=== PATIENT | male | born 1950 | race Caucasian/White ===

== ENCOUNTER 2017-07-19 11:00 | Inpatient (IN) | payer OTHER ==
[~2017-07-19] VITALS: Ht 188 cm; Wt 194.8 kg
[~2017-07-19 11:00] MED LIST: CHLORTHALIDONE25 MG PO; CLEOCIN HCL300 MG PO; CORTIZONE-1028 GM TOP; CRANBERRY200 MG PO; DAILY MULTIPLE1 EACH PO; DOXYCYCLINE HY100 MG PO; FISH OIL 1,0001 EAC3 PO; GLUCOSAMINE1000 MG PO; HYDRALAZINE HCL10 MG PO; HYDROCODON-ACE1 EA10 PO; ISOSORBIDE MONO60 MG PO; JANTOVEN5 MG PO; KLOR-CON 1010 MEQ PO; LANTUS100 UNITS/ SUB-Q; LASIX80 MG PO; LINEZOLID600 MG PO; MAG-OXIDE400 MG PO; MICONAZOLE5 GM TOP; NARCAN4 MG; NEURONTIN600 MG PO; NORCO 10-325 T1 EACH PO; NOVOLOG100 UNIT/1 SUB-Q; POTASSIUM CHLO20 ME1 PO; SAW PALMETTO80 MG PO; TRIUMEQ TABLET1 EACH PO; ZOLOFT50 MG PO; ZYLOPRIM100 MG PO
[2017-07-19] MEDS ORDERED: CIPROFLOXACIN750 MG PO (11:57)
--- NOTE | 2017-07-19 18:19 | NUR ---
NEW ED ADMIT. MORBIDLY OBESE. SBA/1PA. BARIATRIC BED. HX HIV. 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 STASIS ULCERS. OOZING STAB SITES FROM HERNIA REPAIR. PACER.
--- NOTE | 2017-07-19 18:26 | NUR ---
PT REPORTS THAT HE FEELS HE IS GETTING PRURITIS R/T VANCO INFUSION. LESS THAN 10ML INFUSED. WILL CALL DR ESPAÑA AND REPORT INCIDENT. NEW IV PLACED BY RN IN LEFT FOREARM. 18G.
--- NOTE | 2017-07-19 19:00 | NUR ---
REPORT RECEIVED FROM OFFGOING RN. PT RESTING IN BED. DISCUSSION WITH PHARMACISIT REGARDING HOME MEDICATION, PLAN FOR CG TO BRING MEDICATION TO FACILITY. WILL CHECK MEDICATION AND PLACE IN PT'S KIT'S LIST WHEN IT ARRIVES.
--- NOTE | 2017-07-19 19:24 | NUR ---
REPORT RECEIVED FROM OFFGOING DELFINA MULLIGAN. PHARMACISIT [employer] ASSISTANT THAT PT FAMILY IS TO BRING MEDICATION FROM HOME THIS EVENING AND THAT PT IS TO HAVE 1 DOSE OF MEDICATION TONIGHT.
--- NOTE | 2017-07-19 21:00 | NUR ---
PT CONTINUES TO REPORT ITCHING WITH VANCO INFUSION. HOSPITALIST IN TO SEE PT. NEW ORDER FOR FAMOTADINE RECEIVED, TO BE ADMINISTERED WITH VANCO INFUSION. VANCO TO BE RAN AT 75 ML/HR PER MD. FAMOTADINE ADMINISTERED AND VANCO INFUSINO REINITIATED. PT ASSESSMENT COMPLETE. ABDOMEN IS RED AND WARM TO THE TOUCH. PT REPORTS TENDERNESS TO SITE. BT'S ACTIVE. LAP SITE TO ABD IS DAGOBERTO, NO DRAINAGE NOTED. WOUND TO R KNEE IS COVERED WITH TELFA AND GAUZE. C/D/I. STASIS ULCERS PRESENT, LEGS REMAIN DISCOLORED PER PT'S BASELINE. PT PLACED CALL TO HIS CG TO REMIND HER TO BRING HOME MEDCIATIONS. SHE STATES THAT SHE WILL BRING SHORTLY. PT DENIES NEEDS AT THIS TIME. CALL LIGHT WITHIN REACH.
--- NOTE | 2017-07-19 22:50 | NUR ---
PT UTILIZES CALL LIGHT, STATES THAT HE IS FEELING SOMEWHAT SOB, REQUESTS TO SIT UP AT BEDSIDE. PT ASSISTED TO SITUP, REPORTS IMMEDIATE IMPROVEMENT. PT HOME MEDICATION ADMINISTERED. PT REQUETS DIET 7-UP AND REFILL OF WATER. BOTH PROVDIDED. PT DENIES OTHER NEEDS. CALL LIGHT WITHIN REACH.
--- NOTE | 2017-07-20 01:50 | NUR ---
PT RESTING WITH EYES CLOSED. RESPIRATIONS EVEN AND UNLABORED. PT USING HOME CPAP. PT ASSESSMENT COMPLETED. PT WAKES EASILY BUT DOES NOT TAKE CPAP OFF DURING ASSESSMENT. ABDOMEN REMAINS RED, PT REPORTS TENDERNESS TO TOUCH. LAP SITE OPEN TO AIR, NO DRAINAGE NOTED. BT'S ACTIVE. ABRASION TO R KNEE COVERED WITH TELFA AND GAUZE, C/D/I. NO REPORTS OF PAIN, SOB, OR NAUSEA AT THIS TIME. CALL LIGHT WITHIN PT'S REACH.
--- NOTE | 2017-07-20 06:09 | NUR ---
PT RESTING IN BED WITH CPAP IN PLACE. APPEARS TO BE SLEEPING. PT WAKES EASILY. DENIES PAIN, NAUSEA, SOB. PT ASSESSMENT COMPLETE. PT DENIES THE URGE TO VOID, STATES HE HAS A "CAMEL BLADDER". EDUCATION PROVIDED REGARDING NEED TO MEASURE URINE OUTPUT VERSUS WHAT HAS BEEN GOING IN VIA IV PUMP. PT STATES UNDERSTANDING. URINAL X 2 LEFT BY BEDSIDE. 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 PT STATES UNDERSTANDING. PT REQUESTS SIDE RAIL LOWERED SO HE MAY SIT ON EDGE OF BED. DECLINES OTHER NEEDS AT THIS TIME. CALL LIGHT WITHIN REACH.
--- NOTE | 2017-07-20 08:07 | CONS ---
[facility] [address] [place], [place] [address] Signed DATE OF CONSULTATION: 07/19/2017 REFERRING PHYSICIAN: ER physician. CHIEF COMPLAINT: Abdominal wound drainage. HISTORY OF PRESENT ILLNESS: Ed is a 66-year-old obese, diabetic gentleman with a history of HIV infection. He came to us back in February of this year with incarcerated symptomatic umbilical hernia. We had taken him to the OR and repaired that with intraabdominal Ventralex mesh. Of course, we closed the fascial defect transversely with a running #1 Prolene suture. He had initially been doing well, but then developed an infected seroma, which had to be opened and drained. He has grown out both enterococcus and proteus. His caregivers helped him with wound packing and has done an excellent job. I had warned Ed and his caregiver that we cannot remove the Prolene suture initially because that would just allow the umbilical hernia to open and expose the mesh in the abdomen to his infection. Consequently, he is at high risk for getting a recurrent infection, either in the near or even distant future. We have been following him along in the office and he was doing great and then we had ordered some Cipro for him and he tried to get it through [facility] when it took over a week to obtain it. He did take it, but now he has erythema with some edema across the pannus. We had asked him to come into the office today and he had called to say that he thought some fluid had come out and he wanted to go to the emergency room. Emergency room physician called me and did an ultrasound of that area and there was fluid collection underneath around 5 x 2 x 1.8 cm. White count is borderline at 10.6 with neutrophils of 66, however it is all consistent with an abscess. We therefore brought him into the hospital to start his IV antibiotics. We will have to open that up in the operating room later and take some cultures. ALLERGIES: Amoxicillin, bandaging tape, laundry detergent, sulfa drugs. MEDICATIONS: 1. Triumeq one tablet p.o. daily. 2. Allopurinol. 3. Chlorthalidone. 4. Coumadin. 5. Magnesium. 6. Lee 10 mg. 7. Potassium chloride. PAST MEDICAL HISTORY: Electronically Signed By: KOLBY ESPAÑA MD 07/20/17 0807 PATIENT NAME: ALEN ARANDA CONSULTATION DATE OF : 50 PHYSICIAN: OKLBY ESPAÑA MD REPORT #: [id number] REPORT IS CONFIDENTIAL AND NOT TO BE RELEASED WITHOUT AUTHORIZATION [facility] [address] [place] [id number] Signed Includes atrial fibrillation, congestive heart failure, hypertension, bilateral lower extremity venous stasis disease, prior umbilical hernia, obesity, diabetes, cellulitis, stroke x3, schizophrenia, HIV infection, and chest wall skin neoplasm. PAST SURGICAL HISTORY: Includes excision of a soft tumor from his chest wall, his left forearm surgery with metal remaining, treatment of his legs with no metal remaining, and then repair of his umbilical hernia with intraabdominal mesh in February of 2017, also pacemaker [place] [address] Balwinder Post, with [facility] in [place], [place]. Also, appendectomy and his umbilical hernia repair again in February of 2017. SOCIAL HISTORY: He drinks up to 10 L of diet coke in a month. He likes to smoke, but he quit smoking back in 1983. He does not chew tobacco. He has one or two beers in a month. He does not use illicit drugs. He is disabled and does not drive. He is , but also has a caregiver. He has two children. Dr. Jericho Cao is his primary care provider with [facility], [place], [place]. FAMILY HISTORY: There is diabetes in his mother. REVIEW OF SYSTEMS: Ten systems reviewed and he has been doing great following along in the office until this current episode of erythema and edema in his pannus. PHYSICAL EXAMINATION: VITAL SIGNS: Blood pressure is 151/75, his heart rate is 48, respiratory rate is 18, temperature is 98.4, he is 97% on room air. He is 6 feet 2 inches and 194 kg. GENERAL: He is a 66-year-old, obese gentleman, who is sitting on his hospital bed. He does not appear systemically ill or toxic. He usually has his walker with him, but not currently. LUNGS: Clear to auscultation bilaterally. HEART: Appears to be regular rate and rhythm from his pacemaker. ABDOMEN: Very protuberant and obese, but it is soft. I do not see any drainage from the umbilicus or his infraumbilical transverse incision. He does have edema and erythema below the umbilicus, probably 10 cm in diameter. LABORATORY DATA: His white blood count is 10.6, hemoglobin 15, neutrophils 66. Electrolytes are pending. RADIOGRAPHIC STUDIES: The ultrasound report is reviewed and there is a 5.4 x 2.5 x 1.8 cm fluid collection with edema in the surrounding tissues. Electronically Signed By: KOLBY ESPAÑA MD 07/20/17 0807 PATIENT NAME: ALEN ARANDA CONSULTATION DATE OF : 50 PHYSICIAN: KOLBY ESPAÑA MD REPORT #: [id number] REPORT IS CONFIDENTIAL AND NOT TO BE RELEASED WITHOUT AUTHORIZATION [facility] [address] [address] Signed ASSESSMENT/PLAN: Ed is a 66-year-old gentleman, who presents as above. He clearly has a postoperative abscess/wound infection. He is obviously at very high risk given the fact that he has not only diabetes, obesity, and his history of HIV. We are going to admit him tonight, Lyme diet, and his chronic medications. We will start his antibiotics tonight. Looks like we are going to use vancomycin and cefepime and we will plan on going to the OR tomorrow to evacuate the fluid collection and see if we can remove the Prolene suture. I have explained all this to Ed. He has expressed understanding and agrees to above plan. MD LAURIE Castorena/FRANSICOL /[id number] cc: MD Kolby Karimi MD Electronically Signed By: KOLBY ESPAÑA MD 07/20/17 0807 PATIENT NAME: ALEN ARANDA CONSULTATION DATE OF : 50 PHYSICIAN: KOLBY ESPAÑA MD REPORT #: [id number] REPORT IS CONFIDENTIAL AND NOT TO BE RELEASED WITHOUT AUTHORIZATION
--- NOTE | 2017-07-20 10:27 | NUR ---
PT OFF FLOOR FOR PROCEDURE AT 1010. CEFEPIME SENT WITH SURGERY RN.
--- NOTE | 2017-07-20 12:20 | NUR ---
07/20/17 1220 Uzma Harmon 1210-PATIENT ARRIVED TO PACU ON 10L MASK WITH ORAL AIRWAY IN PLACE 97% AFB PACEMAKER INPLACE ABDOMEN CDI GAUZE IN PLACE. NONAROUSABLE. 1217-GLUCOSE 69 ORDER TO GIVE 1/2 AMP OF D50 AND WILL RECHECK GLUCOSE IN 20 MINUTES. PATIENT ABLE TO EAT WHEN AWAKENS.
--- NOTE | 2017-07-20 13:25 | NUR ---
PT ARRIVED TO ROOM 113 AFTER SURGERY AT 1315. PT AWAKE AND ALERT. NO PAIN REPORTED. CEFEPIME CONTINUING TO INFUSE. VSS.
--- NOTE | 2017-07-20 18:14 | NUR ---
PT IS RESTING IN BED SAFELY WITH EYES CLOSED, RESPERATIONS EVEN, CALL LIGHT IN REACH.
--- NOTE | 2017-07-20 18:38 | NUR ---
VANCO/CEFEPIME. FSBS AC/HS. PRE MEDICATE BEFORE VANCO. I&D TODAY. DRESSING ON MIDLINE ABDOMEN. SOAKING THROUGH LLQ. PUT ABD OVER DRESSING. NEW GOWN GIVEN. TOLERATING ADA DIET. STASIS ULCERS BILAT LE. TRACE EDEMA LE. 1PA TO AMBULATE. CPAP WHILE ASLEEP.
--- NOTE | 2017-07-20 20:51 | NUR ---
PT LAYING IN BED. ALERT AND ORIENTED X4. COOPERATIVE. PT DENIES PAIN. DRESSING TO ABD SATURATED WITH SEROSANGENOUS DRAINAGE, WILL ABD DRESSING TONIGHT, FOR NOW CLEANED AREA AROUND DRESSING AND ADDED SOME CHUX TO KEEP DRAINAGE CONTAINED. REMOVED DRESSING FROM RIGHT KNEE TO ALLOW TO DRY, WOUND ON KNEE APPEARS TO BE A "SCRAPE," WILL MONITOR CLOSELY FOR DRAINAGE. GAVE FRESH ICE WATER. CALL LIGHT IN REACH. CPAP AT BEDSIDE.
--- NOTE | 2017-07-20 22:52 | EKG ---
[facility] [address] [facility] [place] [address] Signed Atrial fibrillation Incomplete right bundle branch block Left posterior fascicular block T wave abnormality, consider inferior ischemia Abnormal ECG When compared with ECG of 19-FEB-2017 13:59, Incomplete right bundle branch block is now present Confirmed by BENJY CAI MD ([id number]) on 07/20/2017 10:51:55 PM Electronically Signed By: BENJY CAI MD 07/20/17 2252 PATIENT NAME: MANOJCHERYLLUIS CALDERON Electrocardiogram DATE OF : 50 PHYSICIAN: BENJY CAI MD REPORT #: [id number] REPORT IS CONFIDENTIAL AND NOT TO BE RELEASED WITHOUT AUTHORIZATION
--- NOTE | 2017-07-20 23:12 | NUR ---
PT APPEARS TO BE SLEEPING. CPAP IN PLACE. LIGHTS AND TV OFF IN ROOM.
--- NOTE | 2017-07-21 02:01 | NUR ---
CHANGED ABD PADS TO ABD WOUND. PT TOLERATED WELL. COOPERATIVE AND HELPFUL. DENIES PAIN. GAVE FRESH ICE WATER. CALL LIGHT IN REACH.
--- NOTE | 2017-07-21 02:42 | NUR ---
PT INCONTINENT OF URINE. CHANGED LINENS AND ADDED WHITE CHUX TO BED. PT NOW SITTING AT BEDSIDE PER PT REQUEST. CALL LIGHT IN REACH. NO FURTHER NEEDS AT THIS TIME.
--- NOTE | 2017-07-21 03:50 | NUR ---
PT REMAINS SITTING AT BEDSIDE. LIGHTS ON IN ROOM. HE IS PLAYING GAMES ON HIS TABLET. NO NEEDS AT THIS TIME. CALL LIGHT IN REACH.
--- NOTE | 2017-07-21 05:44 | NUR ---
PT STILL SITTING AT BEDSIDE. HE APPEARED A LITTLE SHAKY, BS CHECKED AND IT WAS 72. AFTER GIVING ORANGE JUICE, AND CRACKERS WITH PEANUT BUTTER, PT REPORTED FEELING BETTER AND HIS BS IS NOW 97. NOTIFIED DR CAI VIA [employer].
--- NOTE | 2017-07-21 06:28 | NUR ---
PT SLEPT MAJORITY OF SHIFT. CHANGED ABD PADS AT SURGICAL SITE, DRAINING MODERATE AMOUNT OF SEROSANGENOUS FLUID. AFEBRILE. PT ALERT AND ORIENTED X4. DENIED PAIN. CPAP AT NIGHT. INCONTINENT OF URINE X2. NO SLIDING SCALE REQUIRED. USES CALL LIGHT APPROPRIALTY.
--- NOTE | 2017-07-21 06:41 | NUR ---
DR MARCH CALLED ORDERED NPO. REMOVED WATER CUP FROM BEDSIDE, REPORTED TO THE GUARDS IN ROOM, AND PLACED NPO SIGN
--- NOTE | 2017-07-21 06:56 | NUR ---
CHANGED DRESSING FOR THE SECOND TIME TONIGHT. PT WAS SITTING UP AT BEDSIDE FOR A GOOD COUPLE OF HOURS. DRAINAGE SEEPED THROUGH GAUZE AND THREE ABD'S. CHANGED GOWN. PT TOLERATED WELL.
--- NOTE | 2017-07-21 08:00 | NUR ---
PATIENT LAYING ON SIDE IN BED. ASSESSMENT COMPLETE. PATIENT DRESSING D/C/I. LAB IN ROOM TO GET BLOOD. NEW ORDER FOR INSULIN. BLOOD SUGAR 96. NO SS COVERAGE NEEDED. PATIENT TOLERATED MEDICATION. ANTIBITOICS STARTED.
--- NOTE | 2017-07-21 08:50 | NUR ---
Patient would like to get up in the chair this morning, but is requesting a bigger chair.
--- NOTE | 2017-07-21 09:57 | NUR ---
PATIENT DRESSING ON LOWER ABD HAD COME OFF WITH PATIENT GETTING UP FOR BREAKFAST. OPEN AREA ON ABD HAS PACKING IN PLACE, REAPPLIED GAUZE AND ABD PAD. PATIENT TOLERATED WELL. PATIENT REQUESTING LARGER CHAIR. PLAN OF SHOWER AND SIT IN CHAIR TODAY. PATIENT LUNGS CLEAR. CPAP CURRENTLY ON AFTER BREAKFAST. SATING WELL AT THIS TIME.
--- NOTE | 2017-07-21 12:15 | NUR ---
patient showered with the help of student. packing removed and old dressing removed. wound had dark red drainage. showered. allowed soap and water get into wound. once done with shower. gauze packing that was soaking in dakins solution was packed into wound. Tunneling at noon in the wound was present. underminning on edge. packing was done withwhole roll of gauze. patient tolerated the entire packing of wound process. abd and paper tape was used to keep packing in place. informed patient of plan for bid dressing changes. blood sugar 88.
--- NOTE | 2017-07-21 14:18 | NUR ---
Vancomycin infusion rate slowed due to patient having flushing reaction Vancomycin dosed at 2gm every 24 hours
--- NOTE | 2017-07-21 14:36 | NUR ---
pt in room with patient. ambulated patientin nguyen. tolerating well. assited back to chair.
--- NOTE | 2017-07-21 15:27 | NUR ---
patient sitting up in chair playing games on phone. verfied with pharmacy that both atibitoics can run at the same time. pepcid and benedryl given before antibiotic started. patient educated about calling with any conserning side effect. patients dressing on lower abd remains intact with no shadowing at this time. applied gauze and tape to r lower leg sratch kj that started to bleed.
--- NOTE | 2017-07-21 15:57 | NUR ---
Patient chronically anticoagulated with warfarin. INR presently 2.4. Patient has not received warfarin since admitted. Dr Pagan, who is covering for Dr Kign, will review patient to determine if he wants to restart warfarin.
--- NOTE | 2017-07-21 16:27 | NUR ---
rounded with dr. mcwilliams in room. plan to sl. no other new orders at this time.
--- NOTE | 2017-07-21 16:31 | NUR ---
Begin patient's home dose warfarin 5mg daily starting tonight per Dr Pagan.PT/INR ordererd for 07/22 @ 0600
--- NOTE | 2017-07-21 17:31 | NUR ---
patient had a good day. new orders for dressing changes bid. packing soaked in dakins solution for packing. cover with abd and tape. patient tolerated dressing change with minimal pain. patient showered. iv cefapime and vanco given. coumadin 5mg given this evening. we have decreased and held insulin this evening due to patients blood sugar ranging from 77-98 today. voiding well. added miralax per patients request. norco for pain. patient ambulated in nguyen with pt. doing well on ra. cpap at night.
--- NOTE | 2017-07-21 19:30 | NUR ---
REPORT RECVD FROM PAUL MATHIS, IN TO CHECK ON PT. PT RESTING WITH CPAP IN PLACE. IV ABX INFUSING. PER RN MONITOR FOR LOW CBG DURING SHIFT. NO FURTHER NEEDS AT THIS TIME. CALL LIGHT IN REACH.
--- NOTE | 2017-07-21 20:40 | NUR ---
Patient in bed asleep with cpap on. Whiteboard updated, room cleaned.
--- NOTE | 2017-07-21 21:15 | NUR ---
CALL TO DR. CAI. NOTIFIED THAT [address] CAI HOLD LEVEMIR DOSE. NO FURTHER ORDERS AT THIS TIME. ORDER VERIFIED BY READ BACK.
--- NOTE | 2017-07-21 21:30 | NUR ---
IN TO SEE PT, PT SLEEPING WITH CPAP IN PLACE. AWAKEN EASILY TO VOICE. ASSESSMENT COMPLETE AND PM MEDICATIONS TO GIVEN. DRSG CHANGE DONE WITH GAUZE AND DAKINS. PT IN VISABLE PAIN DURING DRSG CHANGE. PAIN MEDICATION GIVEN AT THE END OF DRSG CHANGE. WARM BLANKETS GIVEN, CPAP IN PLACE. NO FURTHER NEEDS AT THIS TIME. CALL LIGHT IN REACH.
--- NOTE | 2017-07-22 00:06 | NUR ---
IN TO CHECK ON PT, PT APPEARS TO BE SLEEPING. CPAP IN PLACE. IV ABX INFUSING. RR EVEN AND UNLABORED. CALL LIGHT IN REACH.
--- NOTE | 2017-07-22 00:18 | NUR ---
PATIENT IN BED ASLEEP.
--- NOTE | 2017-07-22 03:04 | NUR ---
IN TO CHECK ON PT, PT AWAKE. IV ABX STARTED. PT GIVEN BROTH PER REQUEST. PT AWAKE PLAYING GAMES ON HIS PERSONAL TABLET. NO FURTHER NEEDS AT THIS TIME, CALL LIGHT IN REACH.
--- NOTE | 2017-07-22 03:34 | NUR ---
PATIENT IN BED ASLEEP WITH CPAP ON.
--- NOTE | 2017-07-22 05:05 | NUR ---
PT HAS HAD UNEVENTFUL SHIFT, RESTED INTERMITTENTLY DURING THE SHIFT. DRSG TO THE ABD CHANGED PER ORDERS. MODERATE AMOUNT OF SERIOSANGUINOUS DRAINAGE NOTED. IV ABX GIVEN PER ORDER. A FIBRILE. PT AAOX3. NO SLIDING SCALE INSULIN AND LEVEMIR HELD PER MD.
--- NOTE | 2017-07-22 05:15 | NUR ---
IN TO CHECK ON PT, PT SITTING UP AT BEDSIDE. PT PLAYING GAMES ON PERSONAL TABLET. IV ABX INFUSING. NO FURTHER NEEDS AT THIS TIME. CALL LIGHT IN REACH.
--- NOTE | 2017-07-22 07:47 | NUR ---
BEDSIDE REPORT RECEIVED FROM SIMI. PATIENT SITTING AT THE SIDE OF THE BED. REPORT NEUROPATHIC PAIN. IV SITES PATENT. DRESSING ON ABD DRY AT THIS TIME. PATIENT RESTING IN BED, CALL LIGHT WITHIN REACH.
--- NOTE | 2017-07-22 08:14 | NUR ---
CALLED MADE TO DR CAI ABOUT PATIENT BLOOD SUGAR THIS AM THAT WAS 106. PATIENT BLOOD SUGAR HAS BEEN RUNNING LOW SINCE YESTERDAY. DR CAI ORDERED TO HOLD 0900 AM LEVEMIR.
--- NOTE | 2017-07-22 08:56 | NUR ---
PT AWAKE IN BED. PICKED UP ROOM. EMPTYED GARBAGE. FRESH WATER. CHANGED LINENS.
--- NOTE | 2017-07-22 09:09 | NUR ---
PATIENT FINISHED WITH BREAKFAST AND RESTING BED. CALL LIGHT IN REACH
--- NOTE | 2017-07-22 10:08 | NUR ---
PT IN BED TOOK BF TRAY. FRESH ICE WATER. PT HAS CALL LIGHT IN REACH.
[2017-07-22] MEDS ORDERED: CRANBERRY200 MG PO (10:20)
[2017-07-22] MEDS ORDERED: FISH OIL 1,0001 EAC3 PO (10:20)
[2017-07-22] MEDS ORDERED: ANTI-ITCH28 G1 TOP (10:23)
--- NOTE | 2017-07-22 10:36 | NUR ---
PATIENT RESTING IN BED REPORTED RELIEF OF PAIN AFTER NORCO THIS AM PER RADIOGRAPHER TECHNOLOGIST. NO OTHER COMPLAINTS. WARM BLANKETS PROVIDED.
--- NOTE | 2017-07-22 10:42 | NUR ---
ABD DRESSING CHANGED- PAKING WITH WET GAUZE IN DAKINS SOLUTION. WOUND BED PINK NO SLOUGH. PATIENT TOLERATED DRESSING WELL.
[2017-07-22] MEDS ORDERED: TOPROL XL200 MG PO ×2 (10:56→10:57)
[2017-07-22] MEDS ORDERED: ANTIFUNGAL CREA14 GM TOP (10:58)
--- NOTE | 2017-07-22 11:00 | NUR ---
MED REC COMPLETE WITH [facility] MEDICATION REFIL HISTORY.
--- NOTE | 2017-07-22 11:52 | NUR ---
IV FLUSHES, DRESSING IS INTACT
--- NOTE | 2017-07-22 12:55 | NUR ---
PATIENT UP TO CHAIR. NEW IV SITE ESTABLISHED. PATIENT TOLERATED WELL. DENIES PAIN AT THIS TIME. NO OTHER COMPLAINTS. CALL LIGHT AND PERSONAL BELONGING WITHIN REACH.
--- NOTE | 2017-07-22 14:01 | NUR ---
PT IS UP IN CHAIR PLAYING ON IPAD, STATES "FEET FEELS LIKE HE'S STANDING ON A BOARD OF NAILS" SAYS FROM HIS NEUROPATHY. PAIN IS TOLERABLE LEVEL. PHYSICAL THERAPY WILL BE BACK AFTER ABX INFUSION. CALL LIGHT WITHIN REACH.
--- NOTE | 2017-07-22 14:11 | NUR ---
PT DOING WELL. SAID DONT NEED ANYTHING.
--- NOTE | 2017-07-22 14:29 | NUR ---
PATIENT STATES STOOL WAS HARD, NURSE WITNESSING SAID STOOL WAS SOFT.
--- NOTE | 2017-07-22 14:49 | NUR ---
PATIENT IS SITTING UP IN THE CHAIR WATCHING TV. HE SCRATCHED HIS LEG AND REOPENED A WOUND FROM EARLIER. APPLIED GAUZE AND STOPPED BLEEDING. RUBBED LOTION ON LEGS AND FEET. PATIENT STATES HE IS COMFORTABLE AND HAS CALL LIGHT WITHIN REACH.
--- NOTE | 2017-07-22 15:26 | NUR ---
PT AWAKE IN CHAIR. STOCKED ROOM. EMPTYED GARBAGE. FRESH WATER.
--- NOTE | 2017-07-22 15:47 | NUR ---
NEW IV SITE ESTABLISHED FOR THE OTHER ANTIBIOTIC. PATIENT TOLERATED THE PROCEDURE WELL. RESTING IN THE CHAIR. NO OTHER REQUEST MADE.
--- NOTE | 2017-07-22 16:19 | NUR ---
ADMINISTERED VANCOMYCIN, PRETREATED PATIENT WITH BENADRYL AND PEPCID. PATIENT STATES PAIN IS AT TOLERABLE LEVEL. HE IS LAYING BED ABUT TO TAKE A NAP. CALL LIGHT IN REACH.
--- NOTE | 2017-07-22 17:32 | NUR ---
PATIENT'S BLOOD GLUCOSE WAS 267, GAVE 18 UNITS INSULIN, PATIENT IS EATING DINNER AT THE SIDE OF THE BED. CALL LIGHT IN REACH.
--- NOTE | 2017-07-22 18:16 | NUR ---
ASSESSED PATIENT'S RIGHT KNEE. SCABED OVER ABRAISION. INCREASED IN REDNESS AND IS TENDER TO THE TOUCH. PLACED A WARM DAMP RAG OVER ABRAISION. PATIENT IS RESTING WITH CALL LIGHT IN REACH.
--- NOTE | 2017-07-22 18:24 | NUR ---
PATIENT HAD AN UNEVENTFULL DAY. ABDOMINAL DRESSING CHANGED, PACKING WITH GAUZE SOAKED WITH DAKINS SOLUTION. LAST CBG WAS 267 AND 18 UNITS OF NOVOLOG ADMINISTERED. ABD DISTENDED, POSITIVE BOWEL TONE. 2+ EDEMAN IN BILAT LEGS AND FEETS. STASIS DERMATITIS/DISCOLORATION BILAT. AND SMALL OPEN WOUND ON THE RIGHT LEG AND KNEE. AFEBRILE. PAIN CONTROL WITH PO NORCO.
--- NOTE | 2017-07-22 18:33 | NUR ---
TALKED TO DR CAI ABOUT PATIENT INCREASED BLOOD SUGAR THIS PM.
--- NOTE | 2017-07-22 19:10 | NUR ---
SHIFT REPORT RECIEVED. PATIENT RESTING IN BED, CALL LIGHT IN REACH.
--- NOTE | 2017-07-22 21:26 | NUR ---
ROUNDED ON PATIENT CHARGE. ALL QUESTIONS ANSWERED. NO CONCERNS OR COMPLAINTS AT THIS TIME. CALL LIGHT IN REACH.
--- NOTE | 2017-07-22 21:40 | NUR ---
PATIENT ASSISTED WITH USE OF THE URNAL. EDIS CARE PROVIDED. PATIENT ASSISTED BACK INTO BED.
--- NOTE | 2017-07-22 22:03 | NUR ---
EVENING MEDS GIVEN PER ORDER. PATIENT REQUESTED PRN PAIN MEDS BEFORE WOUND CARE PERFORMED, WHICH WAS PROVIDED PER ORDERS. LUNG SOUNDS ARE DIMINISHED THROUGOUT. ABD IS ROUND, SOFT, AND TENDER. BOWEL SOUNDS ACTIVE. RIGHT KNEE SCABBED OVER, RED AND TENDER. BACITRACIN APPLIED. 3+ EDEMA NOTED IN LOWER EXTREMITIES. IV ABX INFUSING PER ORDERS, SITE WNL. ABD WOUND DRESSING CHANGED, SMALL AMOUNT OF SEROSANGUENOUS DRAINAGE ON ABD PAD. PACKING REMOVED EASILY AND INTACT. NEW PACKING APPLIED WITH DAKIN'S PER ORDER, A FULL ROLL OF GAUZE WOULD NOT FIT. PATIENT TOLERATED WELL. SKIN WHERE TAPE IS APPLIED IS TENDER AND RED. MINIMAL TAPE APPLIED TO REDUCE IRRITATION. PATIENT RESTING IN BED WITH CPAP IN PLACE. DENIES ANY FURTHER NEEDS. CALL LIGHT IN REACH.
--- NOTE | 2017-07-23 00:20 | NUR ---
PATIENT RESTING, EYES CLOSED, CPAP IN PLACE. RR 16. CALL LIGHT IN REACH.
--- NOTE | 2017-07-23 03:23 | NUR ---
PATIENT SITTING UP ON THE EDGE OF THE BED PLAYING ON HIS TABLET. DENIES ANY NEEDS AT THIS TIME. IV ABX ADMINISTERED PER ORDER. WOUND ON RIGHT KNEE APPEARS THE HAVE PURULENT COVERING THE SCAB THAT WAS PRESENT EARLIER IN SHIFT. PATIENT REPORTS AREA IS TENDER.
--- NOTE | 2017-07-23 05:43 | NUR ---
PATIENT RESTED WELL THROGUHOUT THE NIGHT. OUTPUT QS. WOUND CARE PERFORMED PER ORDERS AND TOLERATED WELL. PATIENT RECIEVED PRN PAIN MEDS X1 PRIOR TO DRESSING CHANGE. 1PA W/FWW. ADA DIET, TOLERATING WELL.
--- NOTE | 2017-07-23 06:21 | NUR ---
CALLED MD TO REPORT CHANGES TO WOND ON RIGHT KNEE. NO ANSWER. LEFT MESSAGE.
--- NOTE | 2017-07-23 06:52 | NUR ---
PATIENT RESTING IN BED WITH CPAP ON. CALL LIGHT IN REACH. EYES CLOSED. RR18.
--- NOTE | 2017-07-23 07:10 | NUR ---
BEDSIDE REPORT RECEIVED FROM DELFINA PINA. PT SLEEPING AT THIS TIME.
--- NOTE | 2017-07-23 07:27 | NUR ---
LEFT MESSAGE WITH SURGICAL DEPARTMENT TO HAVE MD CONTACT [facility] ABOUT PATIENTS KNEE.
--- NOTE | 2017-07-23 07:40 | NUR ---
NOTIFIED DR. MARCH THAT PT'S RIGHT KNEE HAS BEEN SLOUGHING WHITE SUBSTANCE EXCESSIVELY PER SHIFT REPORT. ORDER TO CHANGE GAUZE DRESSINGS BID.
--- NOTE | 2017-07-23 07:50 | NUR ---
PATIENT IS SLEEPING HAS C-PAP ON.
--- NOTE | 2017-07-23 08:27 | NUR ---
PT MORNING ASSESSMENT COMPLETE. PT'S LUNGS DIMINISHED THROUGHOUT ALL LOBES, CRACKLES NOTED IN RIGHT LOWER LOBE. PT BOWEL TONES ACTIVE X 4. PT COMPLAINING OF PAIN IN ABDOMEN, ABDOMEN COVERED, SOME SEROUS DRAINAGE NOTED ON ABD DRESSING, NO NEW REDNESS NOTED. PT PULSES FAINT/THREADY BILATERALLY LOWER EXTREMITIES, 3+ PITTING EDEMA NOTED IN LOWER EXTREMITIES, EXTREMITIES PURPLE, CAP REFILL <3. PT RIGHT KNEE SLOUGHING. WILL CONTINUE TO MONITOR. PT HAS BREAKFAST ON TRAY, SN BILL IN ROOM.
--- NOTE | 2017-07-23 10:28 | NUR ---
RECEIVED IN REPORT FROM NUMBERER AND WIRER NURSE PATIENT WAS AWAKE UNTIL 0300 PLAYING ON TABLET. ROUSED AT 0800 TO DRAW BLOOD GLUCOSE PATIENT TOLERATED WELL. BECAME EASILY AGITATED DEMANDING TO BE GIVEN 30 UNITS OF INSULIN BEFORE BREAKFAST. SLIDING SCALE INDICATED 6 UNITS BASED ON BLOOD GLUCOSE LEVEL. THERAPEUTIC COMMUNICATION IMPROVED PATIENTS MOOD AND 0900 MEDS WERE GIVEN. IV SITE IN RIGHT ARM WAS CLOTTED OFF AND NOT PATENT AND DC'D. ABX ARE INFUSING IN LEFT ARM IV. PATIENT IS ABLE TO REPOSITION IN BED ON HIS OWN. PATIENT IS NOW SLEEPING WITH NO FURTHER NEEDS. CALL LIGHT IN REACH.
--- NOTE | 2017-07-23 11:15 | NUR ---
IN PT ROOM TO CHECK ON PT. PT SLEEPING, APPLIED ABD PAD TO RIGHT KNEE PER MD ORDER TO APPLY DRESSING TO AREA OF DISCHARGE. PT ON CPAP AT 2L 02 AT THIS TIME. CALL LIGHT IN REACH.
--- NOTE | 2017-07-23 11:16 | NUR ---
PATIENT STATED PAIN WAS 7 OUT OF 10 IN LEGS. ADMINISTERED PRN NORCO. APPLIE ABD GUAZE OVER RIGHT KNEE ABRASION. PATIENT REPOSITIONED IN BED AND TRYING TO SLEEP. CPAP IS IN PLACE. NO FURTHER NEEDS. CALL LIGHT IN REACH.
--- NOTE | 2017-07-23 12:50 | NUR ---
PT ABDOMINAL DRESSING CHANGE COMPLETE. DRESSING PACKED WITH GAUZE SOAKED IN DAKINS SOLUTION. TUNNELLING EVIDENT. TWO ABD PADS APPLIED OVER PACKING, PAPER TAPE USED TO SECURE. PT COMPLAINING OF PAIN AT LOWER ABDOMEN WITH DRESSING CHANGE. BACITRACIN APPLIED TO RIGHT KNEE, COVERED WITH NON-ADHERANT DRESSING. CONTACT PRECAUTIONS USED DURING DRESSING CHANGE. PT NOW RESTING, STATES HE WAS UP FOR MOST OF NIGHT. NO ADDITIONAL REQUESTS AT THIS TIME, IV ANTIBIOTIC INFUSING IN LEFT WRIST, WNL.
--- NOTE | 2017-07-23 15:05 | NUR ---
PATIENT UP TO CHAIR DENIES PAIN AT THIS TIME. ANTIBIOTIC INFUSING. CALL LIGHT WITHIN REACH. NO FURTHER REQUEST.
--- NOTE | 2017-07-23 15:29 | NUR ---
CHECKED ON PT, LAB IN TO DRAW VANCO TROUGH. PT REQUESTING DIET LEMON CHITINA DRINK AND ICE WATER. PT STATES PAIN IS 4/10 IN FEET AND ANKLES. PT STATES PAIN LEVEL IS TOLERABLE, REFUSES PRN NORCO AT THIS TIME. MAGUI FROM PHYSICAL THERAPY NOW IN TO WORK WITH PT.
--- NOTE | 2017-07-23 15:36 | NUR ---
PT OUT OF ROOM WALKING WITH MAGUI FROM PHYSICAL THERAPY WITH FWW AND SBA. IV ANTIBIOTICS INFUSING. PT'S BREATHING IS LABORED, GATE STEADY WITH FWW.
--- NOTE | 2017-07-23 16:05 | NUR ---
PHYSICAL THERAPIST UPDATE ON PT, PT ABLE TO WALK 10 FT WITHOUT WALKER, AMBULATES WELL WITH FWW. PT IS DISCHARGED FROM PHYSICAL THERAPY AT THIS TIME.
--- NOTE | 2017-07-23 16:30 | NUR ---
PT ASSESSMENT COMPLETE. NEW IV STARTED IN RIGHT FOREARM, 20 GAUGE, BLOOD RETURN, FLUSHES WELL. PT'S LUNGS DIMINISHED, CLEAR THROUGHOUT ALL LOBES. PT STATES PAIN IS 6/10 IN LEGS, FEET. ABD DRESSING INTACT, DRY. SMALL AMOUNT OF SEROUS DRAINAGE NOTED ON RIGHT KNEE DRESSING. 3+ PITTING EDEMA NOTED BILATERALLY LOWER EXTREMITIES, PULSES WEAK, PALPABLE, CAP REFILL <3 BILATERALLY. PT HAS CALL LIGHT.
--- NOTE | 2017-07-23 17:22 | NUR ---
DR. MARCH IN PT ROOM DISCUSSING PLAN OF CARE WITH PT. PT CONCERNS ADDRESSED. PT HAS MEAL TRAY, IV ANTIBIOTICS INFUSING AT THIS TIME. CALL LIGHT IN REACH.
--- NOTE | 2017-07-23 18:11 | NUR ---
PT HAS BEEN ALERT, ORIENTED, COOPERATIVE THROUGHOUT SHIFT. PT RECEIVED NORCO X 2 THIS SHIFT FOR PAIN IN LOWER LEGS AND ABDOMEN. PACKING WAS CHANGED IN ABDOMEN, TUNNELLING EVIDENT IN ABDOMINAL WOUND, DRESSING APPLIED TO RIGHT KNEE. PT WAS DISCHARGED FROM PHYSICAL THERAPY TODAY, AMBULATING WELL WITH FWW. PT CONTINUES TO HAVE SIGNIFICANT URINE OUTPUT. PT RECEIVED IV VANCOMYCIN, CEFEPIME THROUGHOUT SHIFT. HAS USED CPAP WHILE IN BED, UP IN CHAIR FOR MOST OF DAY. BLE CONTINUE TO BE EDEMETOUS, 3+, PITTING AND FLORA IN COLOR.
--- NOTE | 2017-07-23 18:41 | NUR ---
ASSISTED PT WITH PERSONAL SUPPLY ORGANIZATION, TURNED OFF LIGHTS FOR PT. PT RESTING WITH CPAP IN PLACE, 2L O2. PT HAS NO ADDITIONAL REQUESTS AT THIS TIME. IV CEFEPIME AND VANCOMYCIN INFUSING. LEGS ELEVATED.
--- NOTE | 2017-07-23 19:00 | NUR ---
BEDSIDE SHIFT REPORT RECEIVED FROM [facility] RN'S. PT IS CURRENTLY RESTING IN BED, CPAP IN PLACE. IV ABX INFUSING AT THIS TIME. DENIES NEEDS AT THIS TIME, WILL CONTINUE TO MONITOR.
--- NOTE | 2017-07-23 21:00 | NUR ---
PT REPORTS 7/10 PAIN IN ABDOMEN AND LEGS, MEDICATED WITH 1 TAB NORCO. WILL ALLOW TIME FOR THIS MEDICATION TO TAKE EFFECT AND THEN WILL CHANGE ABDOMINAL DRESSING. CB, 12 UNITS SLIDING SCALE ADMINSTERED. PT HAS CALL LIGHT WITHIN REACH, WILL CONTINUE TO MONITOR.
--- NOTE | 2017-07-23 22:40 | NUR ---
ASSESSMENT COMPLETED. ALERT/ORIENTED. PAIN INCREASED AFTER DRESSING CHANGE TO ABDOMINAL WOUND. LUNGS CLEAR, DIMINISHED, PT WEARING HOME CPAP. HR IRREGULAR. BOWEL TONES ACTIVE. ABDOMINAL WOUND PACKED WITH DAKINS SOAKED KERLIX AND COVERED WITH ABD. ONLY PLACED SMALL AMOUNT OF TAPE, PER PT REQUEST, SKIN APPEARS IRRITATED AND RED WHERE TAPE HAD BEEN. WILL MONITOR DRESSING TO MAKE SURE IT STAYS IN PLACE. RIGHT KNEE HAS DRESSING TO ABRASION, CHANGED AT THIS TIME. CLEANED WOUND WITH SALINE, COVERED WITH BACITRACIN AND NON-ADHERANT DRESSING. LEGS APPEAR FLORA WITH 3+EDEMA PRESENT. AFTER DRESSING CHANGE PT SAT UP TO SIDE OF BED, VOIDED LARGE QUANTITY. SCROTAL EDEMA PRESENT, PENIS IS NOT VISIBLE. PT REMAINS SITTING UP AT SIDE OF BED, ON RA. DENIES NEEDS, CALL LIGHT IS WITHIN REACH.
--- NOTE | 2017-07-24 00:15 | NUR ---
IN TO CHECK ON PT WHO IS ASLEEP WITH CPAP IN PLACE. ONE OF THE ABD PADS FROM ABDOMINAL DRESSING WAS ON THE FLOOR SO I WOKE PT AND TOLD HIM I NEEDED TO ASSESS HIS DRESSING. A PORTION OF THE PACKING WAS COMING OUT OF WOUND SO I TRIMMED IT AND SOAKED NEW GAUZE IN DAKIN'S AND PACKED THE WOUND UNTIL IT WAS FULL AGAIN. NEW ABD PADS PLACED AND SECURED WITH MORE PAPER TAPE THAN I USED WITH PREVIOUS DRESSING. CALL LIGHT IS WITHIN REACH, WILL CONTINUE TO MONITOR.
--- NOTE | 2017-07-24 02:20 | NUR ---
PT UP TO SIDE OF BED TO VOID. PT REQUESTS AT SIDE OF BED FOR NOW.
--- NOTE | 2017-07-24 03:30 | NUR ---
IN TO START IV ABX. PT SITTING AT SIDE OF BED. REPORTS 7/10 PAIN IN LEGS, PRN NORCO ADMINISTERED. ASSESSMENT COMPLETED, NO CHANGES FROM PREVIOUS ASSESSMENT. DRESSINGS INTACT. PT REPOSITIONED HIMSELF BACK IN TO BED AND PLACED HIS CPAP. NO FURTHER REQUESTS, CALL LIGHT IS WITHIN REACH.
--- NOTE | 2017-07-24 05:15 | NUR ---
PT SLEPT MAJORITY OF SHIFT WEARING HIS CPAP, WOULD OCCASIONALLY SIT AT SIDE OF BED ON RA AND PLAY ON HIS TABLET. PAIN HAS BEEN WELL CONTROLLED WITH PRN NORCO, GIVEN TWICE. NO NAUSEA. LUNGS CLEAR/DIM. HR IRREGULAR. BOWEL TONES ACTIVE. DRESSING TO ABDOMINAL WOUND CHANGED LAST NIGHT, PT TOLERATED WELL. DRESSING TO ABRASION ON RIGHT KNEE ALSO CHANGED LAST NIGHT. 3+ EDEMA TO BLE, ENCOURAGE PT TO ELEVATE BLE. SCROTAL EDEMA PRESENT. BLE ARE FLORA IN APPEARANCE. PT REPORTS PERIPHERAL NEUROPATHY. CBG CHECKS, SS, AND LEVEMIR. SBA WITH FWW, STANDS/SITS AT BEDSIDE TO VOID LARGE QUANTITIES. IV SITES PATENT. SL EXCEPT FOR IV ABX: VANCO AND CEFEPIME. ANXIOUS/EASILY AGITATED AT TIMES.
--- NOTE | 2017-07-24 07:33 | NUR ---
REPORT RECEIVED FROM JOVITA. PATIENT AWAKE IN BED, PLAYING IN HIS TABLET. REPORT PAIN IN THE LOWER EXTREMITIES. PATIENT REQUESTS PAIN MED FOR PAIN.
--- NOTE | 2017-07-24 07:36 | NUR ---
patient was awak and ready for the morning, his IV was beepingi notified the nurse and updated his board.
--- NOTE | 2017-07-24 08:16 | NUR ---
PATIENT SITTING AT THE SIDE OF THE BED EATING BREAKFAST. 0800 MEDS ADMINISTERED. CBG 148, NO NEED FOR COVERAGE. PAIN MED WAS ADMINISTERED FOR 7/10 PAIN IN THE LEGS.
--- NOTE | 2017-07-24 09:30 | NUR ---
0900 O'CLOCK MED ADMINISTERED. SHIFT ASSESSMENT COMPLETED. PATIENT REPORTS THAT HIS PAIN IS DOWN TO 3/10. BP MED WAS HELD FOR LOW BP (106/66). PATIENT ATE 100% OF HIS BREAKFAST. LUNGS DIM THROUGHOUT, ABD OBESE AND POSITIVE BOWEL TONES. REDNESS NOTED ON THE LOWER ABD AROUND THE ABD WOUND. WOUND IS COVER WITH ABD PADS THAT HAS SOME DRAINAGE ON IT. REDNESS AND ABRASION ON THE RIGHT KNEE. DISCOLORATION AND SCABS NO GUS LOWER EXTREMITIES. 3+ EDEMA GUS LE. PATIENT WAS MEDICATED FOR PAIN EARLIER. RESTING IN BED NOW.
--- NOTE | 2017-07-24 10:11 | NUR ---
PATIENT WAS IN BED, HE ASKED FOR HIS CPAP TO BE SET UP RIGHT, AND HIS TABLET, AND A LITTLE MORE ICE WATER.
--- NOTE | 2017-07-24 11:45 | NUR ---
PATIENT UP WALKING IN THE HALLWAY WITH PHYSICAL THERAPIST. TOLERATED WELL.
--- NOTE | 2017-07-24 12:29 | NUR ---
PATIENT SITTING AT THE BEDSIDE EATING LUNCH. REPORTS 2/10 LEG PAIN, WHICH IS TOLERABLE FOR HIM. PLAN FOR SHOWER AFTER LUNCH AND DRESSING CHANGE.
--- NOTE | 2017-07-24 13:28 | NUR ---
FELICITY PATTERSON AND THIS NURSE ASSISTED PATIENT TO BATHROOM FOR SHOWER. PATIENT WAS ASSISTED BACK TO BED. ABDOMINAL WOUND CLEANED, PACKING WITH KERLEX GAUZE SOAKED WITH DAKIN'S SOLUTION AND COVERED WITH ABD PAD, ABDOMINAL BINDER APPLIED INSTEAD OF PAPER TAPE. WOUND BED PINK, NO SLOUGH, NO DRAINAGE. REDNESS NOTED WHERE THE PAPER TAPES WERE. NO CHANGE ON THE REDNESS ON THE RIGHT KNEE, TOPICAL ABX APPLIED. PATIENT RESTING AT THIS TIME. CALL LIGHT WITHIN REACH.
--- NOTE | 2017-07-24 14:51 | NUR ---
PATIENT RESTING IN BED. CPAP ON. APPEARS TO BE SLEEPING. RR UNLABORED. NO ACUTE DISTRESS NOTED. CALL LIGHT WITHIN REACH. WILL CONTINUE TO MONITOR.
--- NOTE | 2017-07-24 16:28 | NUR ---
PATIENT SITTING AT BEDSIDE, PLAYING ON HIS TABLE. REPORT MILD PAIN IN THE LOWER EXTREMITIES. NO REQUEST MADE. WILL CONTINUE TO MONITOR.
--- NOTE | 2017-07-24 17:48 | NUR ---
PATIENT UP SITTING IN BED EATING DINNER. EVENING MEDS ADMINISTERED. PATIENT REPORT MILD PAIN, NO REQUEST FOR PAIN MED.
--- NOTE | 2017-07-24 18:21 | NUR ---
PATIENT HAD A FAIR DAY. HAD A SHOWER. ADB WOUND WAS PACKED WITH KERLEX SOAKED WITH DAKIN'S SOLUTION. PATIENT TOLERATED WELL. SOLUTION FOR DRESSING HAS CHANGED TO NORMAL SALINE. PATIENT HAD 1 BM TODAY. U/O QUANTITY SUFFICIENT. LAST CBG 241. PATIENT RECEIVED 12UNITS OF NOVOLOG AND AN ADDITIONAL 10UNITS WITH MEAL. PAIN CONTROL WITH NORCO. ABRASION ON RIGHT KNEE WAS CLEANED WITH SOAP AND H2O DURING SHOWER, DRY AND LEFT TO OPEN AIR, STILL RED, NO SLOUGH, DRY. IV ABX HAS CHANGED TO PO FOR TONIGHT. DISCOLORATION IN GUS. LEGS STILL THE SAME FROM PREVIOUS ASSESSMENT.
--- NOTE | 2017-07-24 20:00 | NUR ---
PATIENT CONTINUES TO REST QUIETLY IN HIS ROOM. REGULAR RESPIRATIONS LAYING IN BED.
--- NOTE | 2017-07-24 22:00 | NUR ---
PATIENT RESTING QUIETLY IN BED CPAP ON.
--- NOTE | 2017-07-24 23:15 | NUR ---
PATIENT GOT HIS PM MEDS. BLOOD SUGAR OF 159 AND 6 UNITS OF NOVOLOG GIVEN BACK OF RT ARM ALONG WITH A SECOND SQ INJECTION 15 UNITS OF LEVEMIR. ABD DRESSING CHANGED. ABOUT 3.5 TO 2.5 INCH OPEN WOUND ON THE ABD HAS THE SALINE SOAKED KERLIX DRESSING REMOVED. NEW STERILE KERLIX DAMPENED WITH SALINE PLACED IN WOUND. COVERED WITH DRY 4X4,S AND A DRY ABD PAD. ABD BINDER THEN RESECURED OVER DRESSING.
--- NOTE | 2017-07-25 00:01 | NUR ---
PATIENT HAD 2 NORCO WITH HIS EVENING MEDS FOR LEG AND FEET PAIN OF NINE. PATIENT NOW RESTING QUIETLY WITH CPAP ON EYES CLOSED WITH REGULAR RESPIRATIONS.
--- NOTE | 2017-07-25 01:01 | NUR ---
1919 GETTING REPORT FROM DAY SHIFT. PATIENT IN BED RESTING QUIETLY. RESPIRATIONS.
--- NOTE | 2017-07-25 02:46 | NUR ---
PATIENT HAS BEEN SITTING UP DOING THINGS ON HIS TABLET FOR THE LAST COUPLE HOURS. HE HAS NOT CALLED AND ASKED FOR ANYTHING AND WHEN ASKED IF NEEDING ANYHTING HE SAID NO.
--- NOTE | 2017-07-25 06:00 | NUR ---
PATIENT REMAINS SITTING UP ON HIS TABLET, BOTH IV SL LOCKS FLUSHED WELL. PATIENT STILL VOIDING VERY LARGE AMOUNTS OF URINE. PAIN OF 9/10 SEEMS CONTROLLED FROM EARLIER IN THE SHIFT HE HAS MENTIONED NO MORE PAIN AND HAD SLEPT FOR AWHILE.
--- NOTE | 2017-07-25 07:55 | NUR ---
BEDSIDE REPORT RECIEVED FROM RICK. PATIENT RESTING IN BED SLEEPING, CPAP ON. RR UNLABORED. NO APPARENT DISTRESS NOTED.
--- NOTE | 2017-07-25 09:35 | NUR ---
PATIENT UP TO CHAIR, REPORT MINIMAL PAIN IN THE LEGS. MORNING MEDS GIVEN. NO OTHER COMPLAINTS.
--- NOTE | 2017-07-25 13:09 | NUR ---
PATIENT SITTING IN CHAIR EATING LUNCH. DENIES ANY COMPLAINTS. WILL CONTINUE TO MONITOR.
--- NOTE | 2017-07-25 13:30 | NUR ---
PATIENT ASSISTED TO GET BACK TO BED. ABD DRESSING CHANGED WITH KIRLEX GAUZE SOAKED IN NORMAL SALINE. WOUND BED IS CLEAN, NO SLOUGH, SMALL AMOUNT OF BLEEDING AFTER REMOVING PACKING. WOUND PACKED AND COVERED WITH ABD PAD. PATIENT WAS MEDICATED FOR PAIN. RESTING IN BED AT THIS TIME.
--- NOTE | 2017-07-25 15:30 | NUR ---
PATIENT RESTING IN BED. REPORT RELIEF OF PAIN. WATER AND ICE PROVIDED PER PATIENT REQUEST. NO FURTHER COMPLAINTS.
--- NOTE | 2017-07-25 18:14 | NUR ---
PATIENT HAD AN UNEVENTFUL DAY. HAD BEEN UP TO CHAIR MOST OF THE DAY. ABD DRESSING WAS CHANGED AND PACKED WITH KERLIX SOAKED WITH NS. WOUND WNL. ABRASION ON RIGHT KNEE DRY AND IMPROVED FROM PREVIOUS ASSESSMENT.3+ EDEMA DISCOLORATION STILL PRESENT ON BILAT LE. PO ABX. U/O QUANTITY SUFFICIENT. CPAP AT NIGHT. PAIN CONTROL WITH PO NORCO.
--- NOTE | 2017-07-25 19:00 | NUR ---
PT AWAKE AND ON HIS TABLET, GETTING REPORT FROM DAY SHIFT.
--- NOTE | 2017-07-25 20:00 | NUR ---
PATIENT URINATED ALL OVER HIS ROOM, ESTIMATE AT LEAST 500 ON THE FLOOR AND 600 IN THE URINAL. PATIENT CLEANED UP AND BACK TO BED.
--- NOTE | 2017-07-25 22:00 | NUR ---
PT UP TO URINATE ONCE AGAIN. 550 OUT THIS TIME. PT WENT BACK TO BED.
--- NOTE | 2017-07-25 23:00 | NUR ---
PATIENT SLEEPING WITH CPAP ON.
--- NOTE | 2017-07-26 01:00 | NUR ---
PATIENT UP AT BEDSIDE USING HIS TABLET, TAKING IN FLUIDS WELL.
--- NOTE | 2017-07-26 03:45 | NUR ---
PATIENT UP TO THE BATHROOM WITH SMALL STOOL IN THE TOILET, BUT URINATED ALL OVER THE BATHROOM. PATIENT CLEANED UP AND BATHROOM CLEANED UP. PATIENT BACK TO BED.
--- NOTE | 2017-07-26 05:50 | NUR ---
PATIENT HAS BEEN UP MOST OF THE NIGHT ON HIS TABLET. MULTIPLE LARGE URINATIONS THROUGH THE NIGHT. BOTH LEFT AND RT SLIV ARE PATENT. ABD WOUND WAS REPACKED TOWARD THE BEGINING OF THE SHIFT PER THE GIVEN ORDERERS. SITE IS LOOKING PINK INSIDE FOR THE MOST PART AND LOKS TO BE HEALING.
--- NOTE | 2017-07-26 08:28 | NUR ---
BLOOD SUGAR TAKEN. 180. MEDS AND INSULIN GIVEN. PATIENT ON EDGE OF BED EATING BREAKFAST. NO OTHER ISSUES AT THIS TIME. PATIENT STATING PAIN 5/10. WOULD LIKE TO WAIT UNTIL AFTER BREAKFAST FOR PAIN MEDICATION.
--- NOTE | 2017-07-26 12:05 | NUR ---
DID BLOOD SUGER CHECK. SAID WOULD TAKE A SHOWER AFTER SEEING THE DOCTOR SOMETIME TODAY.
--- NOTE | 2017-07-26 12:06 | NUR ---
patients blood sugar 225. 22 units of insulin given. patient sitting up in chair. lasix given. patient tolerating food well. patient agreed to take shower after dr. romero looks at wound.
--- NOTE | 2017-07-26 13:30 | NUR ---
patient assisted back to bed. patient repositioned in bed with legs elevated. changed gown. patient requested sugar being checked. checked blood sugar for 199. patient resting in bed with cpap on.
--- NOTE | 2017-07-26 16:50 | NUR ---
PATIENTS BLOOD SUGAR 165 21 UNITS OF INSULIN GIVEN.
--- NOTE | 2017-07-26 17:30 | NUR ---
DR. MARCH IN ROOM. TOOK OUT ABD DRESSING FOR DR. MARCH TO SEE. REDRESS WOUND WITH KERLEX AND NORMAL SALINE. GAUZE AND ABD APPLIED. ABD BINDER PLACED ON AND TIGHTENED. PATIENT ASSISTED UP TO EDGE OF BED FOR DINNER.
--- NOTE | 2017-07-26 17:32 | NUR ---
PATIENT DID WELL TODAY. AMBULATED IN ROOM WITH A STBY ASSIST AND WALKER. VOIDED. TOLERATING FOOD WELL. BS RANGING FROM 165-225. SS AND SCHEDULED INSULIN GIVEN. DR. ESPAÑA BACK TOMORROW TO DETERMINE CONT. CARE. DRESSING CHANGED THIS EVENING WITH DR. MARCH.
--- NOTE | 2017-07-26 17:50 | NUR ---
PATIENT CALLED AND REPORTED BLOODY NOSE. PACKED WITH GAUZE. CHANGED GOWN.
--- NOTE | 2017-07-26 19:15 | NUR ---
GOT REPORT AND DID MY ASSESSMENT. PATIENT IS DOING WELL. ON HIS TABLET LYING IN BED. NO COMPLAINTS. DRESSING WAS CHANGED ABOUT 6 PM SO I WILL CHANGE IT AGAIN IN THE MORNING.
--- NOTE | 2017-07-26 22:21 | NUR ---
PATIENT RESTING QUIETLY ON HIS LEFT SIDE WITH CPAP IN PLACE AND CALL LIGHT IN REACH.
--- NOTE | 2017-07-26 23:58 | NUR ---
PATIENT RESTING QUIETLY, EYES CLOSED, ON CPAP, CALL LIGHT IN REACH, WILL CONTINUE TO MONITOR.
--- NOTE | 2017-07-27 02:21 | NUR ---
JUST GOT PATIENT BACK TO BED AFTER HELPING HIM VOID 1025MLS, AND CHANGING HIS ABD DRESSING. CALL LIGHT IN REACH ASSESSMENT ALREAD DONE. FAIR AMOUNT OF SANGUINOUS MATERIAL ON OLD DRESSING. ABD BINDER IN PLACE.
--- NOTE | 2017-07-27 04:00 | NUR ---
PATIENT UP TO VOID AND DRESSING CAME APART. REDRESSED ABD WOUND ORDERED AND PATIENT BACK TO BED.
--- NOTE | 2017-07-27 06:24 | NUR ---
PATIENT ACTUALLY SLEPT A GOOD PART OF LAST NIGHT, WHICH IS A CHANGE FOR HIM. DRESSING WAS CHANGED AT 4AM WHEN PATIENT GOT UP TO VOID. PATIENT UP AGAIN NOW AND VOIDED ANOTHER 625MLS.
--- NOTE | 2017-07-27 07:56 | NUR ---
PATIENT SITTING UP ON SIDE OF BED. DOING WELL. CALLED DOWN BREAKFAST ORDER, TIDIED ROOM. UPDATED WHITEBOARD.
--- NOTE | 2017-07-27 09:11 | NUR ---
CALL TO DR. ESPAÑA CELL PHONE TO LET HIM KNOW THAT PATIENT IS HERE AND NEEDS TO BE SEEN BY DR. ESPAÑA TODAY. VÍCTOR IN SURGERY ANSWERED THE PHONE AND TOOK THE MESSAGE.
--- NOTE | 2017-07-27 09:29 | NUR ---
PT SITTING UP ON EDGE OF BED ON TABLET. PAIN 6/10 IN ABDOMEN AND LEGS. NO OTHER COMPLAINTS. GOOD APPETITE.
--- NOTE | 2017-07-27 09:53 | NUR ---
HELPED PT UP TO VOID, WIPED HIS BACKSIDE AND CHANGED HIS DRAWSHEET AND PUT A FRESH ALYSSA PAD UNDERNEATH HIM
--- NOTE | 2017-07-27 10:22 | OR ---
[facility] [address], [place] [address] Signed DATE OF OPERATION: 07/20/2017 SURGEON: Kolby King MD PREOPERATIVE DIAGNOSIS: Periumbilical postoperative infected seroma. POSTOPERATIVE DIAGNOSIS: Periumbilical postoperative infected seroma. PROCEDURES: 1. Incision and drainage of infected periumbilical postoperative seroma. 2. Deep wound cultures. ESTIMATED BLOOD LOSS: None. FINDINGS: Sarthak had a small seroma immediately underneath the incision that tracked down along the 6 o'clock position of the umbilicus and then traveled around his left side towards the 3 o'clock position. All of this was excised and removed back to healthy fat. The wound did not travel all way down to the abdominal wall, therefore the previous Prolene sutures were not removed. INDICATIONS: Sarthak is a 66-year-old obese diabetic gentleman with a history of HIV infection. He tells us that his recent HIV count is undetectable a month or so ago. He came to us at the end of February of 2017 through the emergency room with a moderately large 2 cm incarcerated umbilical hernia. He was taken to the operating room and the omentum had been reduced and we repaired the fascial defect transversely with a running #1 Prolene suture over top of Ventralex mesh. He did very well initially, but he is at high risk obviously. He developed an infected seroma once we opened that wound and we packed it and allowed it to heal in secondarily. We found his first infection, he had Enterococcus. He responded well to the vancomycin and later to the linezolid. He then ended up with Proteus in the wound later on and we had to explain that not to urinate and uses hands around the wound. He needs to wash his hands in between. That responded also initially to ciprofloxacin. However, he had waited a week to order a Cipro through his [facility]. When he came back to the office, there was some erythema dependently in his abdominal wall and down toward his pannus with associated edema. We wrote for another round of Cipro. We were going to have him back in the office in a few days. He called Electronically Signed By: KOLBY KING MD 07/27/17 1022 PATIENT NAME: SARTHAK ARANDA OPERATIVE REPORT DATE OF : 50 PHYSICIAN: KOLBY KING MD REPORT #: [id number] REPORT IS CONFIDENTIAL AND NOT TO BE RELEASED WITHOUT AUTHORIZATION [address] [address] Signed back and said he had some fluid egress from the wound and when we asked him to come to the office that day, he said he wanted to go directly to the emergency room. In the emergency room, he had the same erythema and edema below the umbilicus and he had a white count of 10.6 with neutrophils of 66. The ER physician had ordered an ultrasound and he had a 5.4 x 2.5 x 1.8 cm fluid collection underneath that wound. I had ask that he be admitted to my service. We put him on vancomycin and cefepime based on his previous cultures. We have our pharmacist helping us as he does have chronic renal insufficiency. This morning, then I spoke with Ed and explained that we were going to open up that wound and drain that fluid collection. There is some risk that he might lose his umbilicus as well, and if the wound was deep, we are going to have to track down to remove the Prolene suture. I had warned Ed and his and his caregiver about this multiple times previously. They are well aware of this potential. Ed had expressed understanding and wished to proceed. PROCEDURE NOTE: Ed was taken into our operating room, placed in the supine position with appropriate padding and monitoring. We had elevated the head of the bed and we used his CPAP mask for the procedure. He was given monitored anesthesia care by our nurse aluminum molder. He was prepped and draped in usual sterile fashion. Ed is already on Coumadin with an elevated INR, but he also has received subcutaneous heparin. We also utilized SCDs. We noticed that he had some slight open areas around his venous stasis disease before the SCDs were applied. After this, I sharply excised his previous incision and skin including the opening just to the left to the midline. We used cautery to come underneath the fat and the fat was quite healthy inferiorly, but between the incision and the umbilicus, his wound was tracking down along the 6 o'clock position at umbilicus and then it traveled to the left side at about the 3 o'clock position. We were not sure we had the entire area excised, we had our electronic publications specialist come and we sterilely evaluated the area of the umbilicus and the pannus with the help of the ultrasound. There was just a tiny bit of the track still extending posteriorly, so we were able to localize that with the tip of our Pean clamp and we went and excised all that tissue and removed it. It did not travel down to the bottom of the wound and therefore we did not excise the previous Prolene suture in nor did we excise the umbilicus. We excised that tunnel and we felt that all of it was thus removed. The surrounding fat was quite healthy. We had taken cultures of this fluid. After this, local anesthetic was injected underneath the skin and into the wound. The wound had been irrigated and suctioned out until clear. We used a 4-inch Kerlix gauze roll soaked in full strength Dakin solution. We packed the wound up the left side and then down inferior to the umbilicus. A dry ABD was placed over this along with some light tape. We used our HoverMatt then to pass Ed from the operating room table back to his hospital bed and we transferred him over into the ICU under stable condition. Electronically Signed By: KOLBY KING MD 07/27/17 1022 PATIENT NAME: SARTHAK ARANDA OPERATIVE REPORT DATE OF : 50 PHYSICIAN: KOLBY KING MD REPORT #: [id number] REPORT IS CONFIDENTIAL AND NOT TO BE RELEASED WITHOUT AUTHORIZATION [address] [address] Signed Kolby King MD ALB/MODL /[id number] cc: MD Dr. Balwinder Karimi Electronically Signed By: KOLBY KING MD 07/27/17 1022 PATIENT NAME: SARTHAK ARANDA OPERATIVE REPORT DATE OF : 50 PHYSICIAN: KOLBY KING MD REPORT #: [id number] REPORT IS CONFIDENTIAL AND NOT TO BE RELEASED WITHOUT AUTHORIZATION
--- NOTE | 2017-07-27 10:28 | NUR ---
PT LYING IN BED WITH BIPAP ON. LFA IV REMOVED D/T ROUTINE IV CHANGE. RFA IV FLUSHES WELL. SALINE LOCKED.
--- NOTE | 2017-07-27 10:38 | NUR ---
DR ESPAÑA CHANGED DRESSING ON ABDOMEN. WET TO DRY WITH SALINE SOAKED GAUZE IN WOUND, 4X4 OVER AND ABD ON TOP. COVERED UNDER ABDOMINAL BINDER.
--- NOTE | 2017-07-27 11:55 | NUR ---
DR ESPAÑA STOPPED AND STATED THAT PT REFUSED TO HAVE WOUND VAC AND IS AGREEABLE PER PT REQ TO GO TO A FACILITY--PT STATES THEY HAVE ONE IN [place]. I CALLED [facility] AND SHE GAVE ME THE # OF THE FACILITY IN . I SPOKE WITH THE PT AND IF THEY ARE UNABLE TO GET HIM INTO THEIR FACILITY HE IS WILLING TO GO TO [facility] IN [place] WHICH IS A IN CONTRACTED FACILTIY. CALLED AND TALKED WITH TAYLA FROM THE [facility] FACILITY AND SHE SAID SHE WAS GOING TO CHECK WITH HER BOSS TO SEE IF THERE WAS A PROBLEM BECAUSE PT WT IS 429 LBS. SHE IS NOT SURE THEY CAN ACCOMODATE HIS WT. CALLED [facility] IN [place] LEFT MESSAGE WITH OUTREACH COOR. FAXED CHART NOTES TO [facility] INCLUDING FACESHEET, ER NOTES, H AND P, PROG NOTES, IMAGING, LABS AND PT EVAL AND NOTES.
--- NOTE | 2017-07-27 12:25 | NUR ---
PATIENT SITTING ON SIDE OF BED, DONE WITH LUNCH. TOOK TRAY OUT OF ROOM. PATIENT DOES NOT NEED ANYTHING ELSE AT THIS TIME.
--- NOTE | 2017-07-27 12:30 | NUR ---
CARE CONFERENCE PT, DR GLEASON, MYSELF AND SEDRICK Neely RN. DISCUSSION WAS HAD WITH THE PT REGARDING THE FACT THAT DR ESPAÑA HAD STATED PT DOES NOT WANT TO HAVE A WOUND VAC AND STATED HE WANTED TO BE PLACED IN THE [facility] HOME IN [place]. I HAD CALLED INPT PRODUCT ADVISOR AT [facility] AND SPOKE TO HER ABOUT THIS PT AND SHE GAVE ME THE NUMBER OF THE ADM COOR AT THAT HOME. I CALLED THERE AND SHE STATED THAT BECAUSE OF PT SIZE THEY DID NOT HAVE EQUIPMENT TO DEAL WITH PT THAT BIG. HELIO HAD ALSO TOLD ME THAT [facility] WAS A CONTRACTED FACILITY. TALKED WITH PT ABOUT THIS AND HE IS OK WITH GOING THERE FOR HIS WOUND THERAPY. NOT FURTHER QUESTIONS WERE ASKED.
--- NOTE | 2017-07-27 12:45 | NUR ---
FAXED CHART NOTES TO [facility] IN [place]. LEFT MESSAGE ON ADM COOR PHONE.
--- NOTE | 2017-07-27 14:07 | NUR ---
PT LAYING IN BED, USING HIS PHONE. HE WELCOMED ME IN, AND I FOUND HIM TO BE ALERT AND ORIENTED. CELLULITIS IN HIS LEFT LEG LOOKED PRETTY ANGRY, AND THIS OPENED UP A DIALOG THAT I WAS ABLE TO HAVE WITH PT. I WAS ABLE TO SHARE SOME OF MY OWN STRUGGLES, AND HE SEEMED ATTENTIVE. FELICITY ERICKSON CAME IN TO TAKE HIS VITALS-HE TOOK HIS OWN WITH ALL HIS GADGETS. WE HAD PRAYER, HE THANKED ME FOR STOPPING BY. WILL CONTINUE TO FOLLOW
--- NOTE | 2017-07-27 15:26 | NUR ---
NURSE IN ROOM.
--- NOTE | 2017-07-27 16:30 | NUR ---
PATIENT IN BED, RESTING. DOES NOT NEED ANYTHING AT THIS TIME.
--- NOTE | 2017-07-27 17:56 | NUR ---
DRESSING CHANGE BID. DR ESPAÑA CHANGED DRESSING THIS MORNING MOIST TO DRY WITH 4X4 GAUZE AND ABD COVERING IT. NO TAPE (PT REACTS TO IT). ABDOMINAL BINDER HOLDING IN PLACE. LOWER EXTREMITIES STASIS ULCERS. RIGHT KNEE SCABBED FROM FALL BEFORE ADMIT. OPEN TO AIR. ACCU CHECKS-- 6 UNITS GIVEN SLIDING SCALE WITH EACH MEAL. URINATES LARGE AMOUNTS INFREQUENTLY. LFA IV S/L. REFUSED SHOWER TODAY. MORBIDLY OBESE. BIPAP WHILE SLEEPING. NORCO GIVEN THIS AFTERNOON.
--- NOTE | 2017-07-27 18:00 | NUR ---
BRIAN CALLED BACK AND STATED THAT SHE WOULD GET AUTH FROM [facility] IN AM AND CALL BACK HERE FOR THE ORDERS. INFORMED DR GLEASON OF THIS.
--- NOTE | 2017-07-27 19:10 | NUR ---
SHIFT REPORT RECIEVED. PATIENT RESTING IN BED, EYES CLOSED. CPAP IN PLACE.
--- NOTE | 2017-07-27 20:20 | NUR ---
PATIENT REPORTED 7/10 PAIN IN HIS LEGS AND FEET, PRN PAIN MEDS PROVIDED. PATIENT DENIES FURTHER NEEDS AT THIS TIME. HE IS RESTING IN BED, USING HIS TABLET. CALL LIGHT WITHIN REACH.
--- NOTE | 2017-07-27 20:45 | NUR ---
EVENING MEDS GIVEN PER ORDER. PATIENT DENIES NAUSEA. LUNG SOUNDS ARE DIMINISHED THROUGHOUT. PATIENT IS AAOX3. ABD IS DISTENDED, PATIENT STATES NORMAL. WOUND CARE PERFORMED. PATIENT TOLERATED WELL. TRACE EDEMA NOTED IN LOWER EXTREMITIES, DARK PURPLE SKIN NOTED ON LOWER PORTION OF LEGS AND FEET. OINTMENT APPLIED TO AREA AROUND ABD WOUND WHERE TAPE IRRITATED THE SKIN AND TO THE RIGHT KNEE. PATIENT DENIES FURTHER NEEDS AT THIS TIME. CALL LIGHT IN REACH.
--- NOTE | 2017-07-27 21:48 | NUR ---
PUT LOTION ON BOTH LOWER EXTREMETIES, PER PATIENT'S REQUEST.
--- NOTE | 2017-07-28 01:50 | NUR ---
PATIENT RESTING IN BED. CPAP ON. RR 16. CALL LIGHT IN REACH.
--- NOTE | 2017-07-28 02:46 | NUR ---
PATIENT SITTING UP ON THE EDGE OF THE BED USING HIS TABLET. NO FURTHER NEEDS AT THIS TIME. CALL LIGHT IN REACH.
--- NOTE | 2017-07-28 03:06 | NUR ---
PATIENT UP ON THE BEDSIDE, ASSISTED PATIENT WITH USING THE URNAL. PATIENT DENIES FURTHER NEEDS AT THIS TIME. CALL LIGHT IN REACH.
--- NOTE | 2017-07-28 05:00 | NUR ---
PATIENT PROVIDED BREAKFAST ORDER. DENIES FURTHER NEEDS. SITTING ON BEDSIDE USING TABLET.
--- NOTE | 2017-07-28 05:24 | NUR ---
PATIENT RESTED ON AND OFF THROUGHOUT SHIFT. DRESSING CHANGED 2044. PATIENT IS SL. PRN PAIN MEDS X1. ADA DIET, TOLERATING WELL. SBA W/FWW. TOILETING ASSISTANCE REQUIRED.
--- NOTE | 2017-07-28 07:20 | NUR ---
BEDSIDE REPORT RECEIVED FROM DELFINA PINA. PT AWAKE, SITTING AT SIDE OF BED PLAYING GAME. PT HAS ORDERED BREAKFAST, NO ADDITIONAL REQUESTS AT THIS TIME, CALL LIGHT IN REACH.
--- NOTE | 2017-07-28 08:00 | NUR ---
DR. GLEASON IN PT ROOM ASSESSING PT, UPDATING ON PLAN OF CARE.
--- NOTE | 2017-07-28 08:30 | NUR ---
RN IN WITH PATIENT ASSISTING HIM FROM BED TO CHAIR.
--- NOTE | 2017-07-28 08:58 | NUR ---
PT ASSESSMENT COMPLETE. PT UP IN CHAIR EATING BREAKFAST. IV SALINE LOCKED, FLUSHED W 10 ML NS, WNL. PT LUNGS DIMINISHED, CLEAR THROUGHOUT ALL LOBES. PT ABDOMEN IN BINDER, DRESSING WNL, CDI. PT DOES NOT COMPLAIN OF PAIN WITH ABDOMINAL PALPATION. PT DENIES PAIN AT THIS TIME. SOCKS PUT ON PT, PT BACK TO BED, LEGS ELEVATED ABOVE HEART. PT HAS NO REQUESTS AT THIS TIME, CALL LIGHT GIVEN TO PT.
--- NOTE | 2017-07-28 09:50 | NUR ---
RN TO ASSIST PATIENT TO BATHROOM THEN BACK TO BED.
--- NOTE | 2017-07-28 09:53 | NUR ---
ASSISTED PT FROM RESTROOM TO BED WITH SBA AND FWW. PT TACHYCARDIC 107 UPON RETURN TO BED. PT SPO2 97%, RR 18. PT HAD SEMI LOOSE BM, UNMEASURED VOID. PT BACK IN BED, LEGS ELEVATED, SCDS ON. PT HAS PERSONAL SUPPLIES WITHIN REACH, CALL LIGHT AND PHONE NEXT TO PT.
--- NOTE | 2017-07-28 11:00 | NUR ---
RECEIVED A CALL FROM KALYANI SUH AT [facility] IN [place]. SHE STATES THEY HAVE NOT RECEIVED AUTHORIZATION FROM THE [facility] YET. SHE ASKED IF A [facility] WAS [facility] TO THE [facility]. SHE STATES THIS WILL BE NEEDED FOR THE AUTHORIZATION. SPOKE WITH HELIO AT THE [facility]. SHE STATES THAT THEY DID NOT RECEIVE THIS FORM. FILLED OUT FORM AND FAXED IT ALONG WITH CLINICALS TO THE [facility] AT [phone]. SPOKE WITH LUIS AT THE [facility], SHE ACKNOWLEDGES SHE WILL WATCH FOR FORM.
--- NOTE | 2017-07-28 12:02 | NUR ---
DR. ESPAÑA IN TO ROUND ON PATIENT. UPDATED ON DISCHARGE PLAN. AFTER DR. ESPAÑA LEFT ROOM FINISHED DRSSING CHANGED. D/C'D OLD DRESSING. WOUND BED LOOKS RED. GRANULAR TISSUE. NO DRAINAGE OR SLUFFING NOTED. REPACKED WITH KERLEX GAUZE AND NORMAL SALINE. PATIENT TOLERATED WELL. PACKED ABOUT 1/3 OF GAUZE ROLL. GAUZE APPLIED OVER WOUND AND THEN ABD. ABD BINDER THEN PLACED ON AND TIGHTENED. PATIENT ASSISTED UP TO EDGE OF BED FOR LUNCH. BS 195. INSULIN GIVEN PER ORDER. DISCHARGE PLANNING IN ROOM TO ASSIST WITH DISCHARGE PLANNING NEEDS.
--- NOTE | 2017-07-28 13:20 | NUR ---
helped pt. void, had to change his draw sheet. got him up to the chair to finish his lunch. call light in place
--- NOTE | 2017-07-28 13:25 | NUR ---
PT RECLINING IN CHAIR, REQUESTING CPAP MACHINE AND DIET POP. PT HAS SCD'S ON, LEGS ELEVATED. CALL LIGHT IN REACH.
--- NOTE | 2017-07-28 13:30 | NUR ---
PATIENT SITTING IN RECLINER WITH FEET ELEVATED AND C-PAP ON. PATIENT STATED THAT HE DOES NOT WANT A SHOWER TODAY AND WOULD LIKE TO WAIT TO SEE IF HE IS DISCHARGED TOMORROW. CALL BUTTON IN REACH. NO OTHER NEEDS AT THIS TIME.
--- NOTE | 2017-07-28 14:15 | NUR ---
PT SITTING IN CHAIR, TOLD ME HE IS TO BE DC'D TO [facility] IN [facility]. HE TALKED TO ME ABOUT COMPRESSION SOCKS, SHARED A WEBSITE WITH HIM. HE LOOKS LIKE HE IS FEELING BETTER TODAY. WILL CONTINUE TO FOLLOW
--- NOTE | 2017-07-28 15:08 | NUR ---
UPDATED STAFF THAT PATIENT WILL LIKELY BE DISCHARGED TOMORROW TO SNF. UPDATED PATIENT ALSO.
--- NOTE | 2017-07-28 15:14 | NUR ---
PT ASSESSMENT COMPLETE. PTS LUNGS CLEAR THROUGHOUT ALL LOBES. PT DRESSING INTACT ON ABDOMEN, CLEAN AND DRY. PT COMPLAINING OF 6/10 PAIN IN LEGS BILATERALLY, ADMINISTERED 2 NORCO TABLETS PRN. PT ASSISTED BACK TO BED, SCD'S IN PLACE. LEGS ELEVATED ABOVE HEART. PT GIVEN CPAP MACHINE, CALL LIGHT, PERSONAL BELONGINGS ON TRAY TABLE WITHIN REACH.
--- NOTE | 2017-07-28 16:18 | NUR ---
Patient is resting in bed with personal CPAP on and eyes closed.
--- NOTE | 2017-07-28 17:50 | NUR ---
PATIENT SITTING ON BEDSIDE EATING DINNER. NO NEEDS AT THIS TIME.
--- NOTE | 2017-07-28 18:38 | NUR ---
PT COOPERATIVE THROUGHOUT SHIFT. LUNGS HAVE SOUNDED CLEAR THROUGHOUT SHIFT. PT HAS HAD LEGS ELEVATED AND USED SCDS AND CPAP WHILE IN BED. PT CONTINUES TO HAVE MODERATE PITTING EDEMA IN LOWER EXTREMITIES BILATERALLY, FAINT PULSES PALPATED. PT HAS COMPLAINED OF PAIN AND RECEIVED PO NORCO X 2 TABLETS THIS AFTERNOON. PT HAS BEEN UP TO THE CHAIR FOR MEALS. IV DC'D TODAY, NO IV ACCESS.
--- NOTE | 2017-07-28 19:00 | NUR ---
SHIFT RE[PORT RECIEVED. PATIENT RESTING IN BED. CALL LIGHT IN REACH.
--- NOTE | 2017-07-28 20:20 | NUR ---
EVENING MEDS GIVEN. PATIENT REPORTED 5/10 PAIN IN HIS LOWER EXTREMITIES, PRN PAIN MEDS PROVIDED. PATIENT HAS DIMINISHED LUNG SOUNDS THROUGHOUT, CLEAR IN UPPER LOBES BILATERALLY. PATIENT IS AAOX3. DENIES NAUSEA. ABD IS MODERATELY DISTENDED AND FIRM, EDEMA IN LOWER EXTREMITIES IN 2+ PITTING EDEMA WITH PATIENT SITTING UP ON THE EDGE OF THE BED. LOWER EXTREMITIES ARE NOTED TO BE DARK PURPLE, WOUND ON RIGHT KNEE IS RED, TENDER WITH A SCAB PRESENT. PATIENT DENIES TOILETING NEEDS AT THIS TIME. NO IV ACCESS. PATIENT IS USING HIS TABLET. DENIES FURTHER NEEDS. CALL LIGHT IN REACH.
--- NOTE | 2017-07-28 22:02 | NUR ---
WOUND CARE PERFORMED PER ORDERS. PATIENT TOELRATED WELL. TOILETING ASSISTANCE PROVIDED. PATIENT RESTING IN BED. LIGHTS OFF. CPAP ON. RT REQUEST THAT NO O2 BE CONNECTED TO THE CPAP TONIGHT TO SEE HOW PATIENT TOLERATES IT. WILL CONTINUE TO MONITOR O2 LEVELS THROUGHOUT THE NIGHT. PATIENT IS AWARE.
--- NOTE | 2017-07-28 23:46 | NUR ---
PATIENT RESTING IN BED. EYES CLOSED. CPAP IN PLACE. O2 SAT 93%. CALL LIGHT IN REACH.
--- NOTE | 2017-07-29 02:00 | NUR ---
PATIENT REQUESTED TO HAVE O2 PLACED BACK ONTO HIS CPAP MACHINE. PATIENT STATES HE FEELS LIKE HE ISN'T GETTING ENOUGH AIR. O2 SAT 90%. TITRATED PATIENT TO 1L VIA CPAP.
--- NOTE | 2017-07-29 02:30 | NUR ---
PATIENT CALLED THE NURSES STATION TO REQUEST HIS BLOOD SUGAR BE TAKEN BECAUSE HE LEFT LIKE IT WAS HIGH. MANAGER OF QUALITY PERFORMED A BLOOD GLUCOSE AND FOUND IT TO BE 190. PATIENT SAYS THIS IS OKAY AND HE DOESN'T NEED ANYTHING ELSE AT THIS TIME. CALL LIGHT IN REACH.
--- NOTE | 2017-07-29 04:47 | NUR ---
PATIENT RESTING IN BED WITH CPAP IN PLACE. RR 15. CALL LIGHT IN REACH.
--- NOTE | 2017-07-29 04:57 | NUR ---
PATIENT RESTED ON AND OFF THROUGHOUT THE SHIFT. PRN PAIN MEDS X1. DRESSING CHANGED PER ORDER, PATIENT TOLERATED WELL. SCDS IN USE INTERMITTENTLY. OUTPUT QS. NO IV.
--- NOTE | 2017-07-29 06:51 | NUR ---
PATIENT SITTING UP ON THE SIDE ON BED USING HIS CELL PHONE. REQUESTED DIET SODA, WHICH WAS GIVEN TO HIM. NO OTHER NEEDS AT THIS TIME.
--- NOTE | 2017-07-29 07:55 | NUR ---
ASKED THE PATIENT ON Wednesday IF HE WOULD LIKE TO TAKE A SHOWER AND HE SAID HE WANTED TO WAIT FOR THE DOCTOR. ASKED SEVERAL TIMES THE NURSE WAS AWARE.
--- NOTE | 2017-07-29 08:38 | NUR ---
PLAN TO SHOWER PATIENT TODAY BEFORE DISCHARGE (PENDING). WILL ALLOW WATER TO WASH THROUGH WOUND AND REDRESS AFTER. SODA PROVIDED TO PATIENT. SCDs IN PLACE. WEARS BIPAP WHILE SLEEPING. GOOD APPETITE. MEDS GIVEN BY STUDENT NURSE AND INSTRUCTOR.
--- NOTE | 2017-07-29 09:15 | NUR ---
SPOKE WITH KALYANI FROM [facility] AND SHE STATES THEY ARE READY TO ACCEPT PATIENT.
--- NOTE | 2017-07-29 10:00 | NUR ---
ORDERS FAXED TO [facility]. CONFIRMATION RECEIVED. SPOKE WITH KALYANI, ADMITTING. SHE STATES THEY WILL TRANSPORT PATIENT AT 1300. STAFF UPDATED. SNF PACK WITH CLINICALS, ORDERS, PASSR, TRANSFER FORM LEFT WITH CHARGE NURSE.
--- NOTE | 2017-07-29 12:18 | NUR ---
PT SITTING ON SIDE OF BED, ON HIS SMART PHONE WAITING FOR SHOWER ASSIST. 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 HE HOPES TO HEAR FROM HER TODAY. PT SAID THE PLAN IS TO STILL GO TO [facility]. LOOKED LIKE HE FELT BETTER, WILL CONTINUE TO FOLLOW NEEDED
--- NOTE | 2017-07-29 13:00 | NUR ---
NEW DRESSING APPLIED AFTER SHOWER AT 1130. STUDENT NURSE PERFORMED DRESSING PACKING WITH SUPERVISION BY RN. NEW ABDOMINAL BINDER APPLIED. AID PACKING UP BELONGINGS NOW. TRANSPORTATION FOR HIM TO BE TAKEN TO SNF HERE NOW.
--- NOTE | 2017-07-29 14:14 | NUR ---
CALLED REPORT TO [facility] RN, EDIE DONOVAN. ALL QUESTIONS ANSWERED. USED REPEAT BACK METHOD FOR INFORMATION GIVEN.
--- NOTE | 2017-07-29 14:43 | NUR ---
HELP HIM PACK UP ALL HIS STUFF TO GO HOME.
--- NOTE | 2017-07-30 11:14 | NUR ---
WRITTEN RX FOR PAIN MEDICATION DONE LAST EVENING BY DR ESPAÑA. SCRIPT TAKEN TO [facility] THIS MORNING BY ICU NURSE SLY MATHIS. PATIENT HAD A BOTTLE OF HOME MEDICATION IN PHARMACY. THIS IS BEING SENT TO [facility] THROUGH [employer] FLOOR[employer] IN A SEALED [employer] (PATIENT NAME IS NOT VISIBLE). CALLED [facility] AND SPOKE WITH CHARGE NURSE REGARDING BOTH.
--- NOTE | 2017-08-15 08:26 | DS ---
[facility] [address] [place], [place] [address] Signed ADMISSION DATE: 07/19/2017 DISCHARGE DATE: 07/29/2017 FINAL DIAGNOSIS: Postoperative periumbilical wound abscess (Pseudomonas aeruginosa). PROCEDURE: Incision and drainage of perioperative wound abscess. HISTORY OF PRESENT ILLNESS: Ed is a 66-year-old, obese, diabetic gentleman, also with a history of HIV infection. However, his counts are not detectable currently. Although he does take Triumeq. In February of this year, he came to the emergency room with an incarcerated symptomatic umbilical hernia. We repaired that with intraabdominal Ventralex mesh. Of course, the fascial defect was closed over the mesh with a running #1 Prolene suture in a transverse fashion. He developed an infected seroma initially with enterococcus. We treated that and later got another wound infection with Proteus as well. We had open the wound and allowed to heal in secondarily. We could remove the Prolene suture without giving him a recurrent umbilical hernia. Consequently, we then aligned that to heal. He has done well in the meantime and it appears that the mesh is fine. It is inside the abdominal cavity. He then called the office with what he thought was some drainage from the wound, so we asked him to come in the office, but he decided to go the emergency room instead. An ultrasound showed a small cavity about 5 x 2 x 1.8 cm. His white count was borderline at 10.6. Neutrophils were 66. We went ahead and admitted him to the hospital. Those cultures grew back Pseudomonas aeruginosa. HOSPITAL COURSE: Ed was admitted as above and started on his IV antibiotics. I took him to the operating room the following morning for incision and drainage of that wound. It was just a small cavity starting at the 6 o'clock position traveling back towards the 3 o'clock position from where the wound had been healing in secondarily. It was a well-defined cavity. There is no induration around it. It did extend down to the abdominal wall, so we left our Prolene suture and mesh in place. We had kept Ed in the hospital on IV antibiotics, waiting for the cultures. In my absence, Dr. Pagan had covered me with respect to Ed's wound care. Upon my return then, Ed was doing great. He had a full better granulation tissue and no local signs or symptoms of infection or drainage. He told me that his caregiver is only available to him once a day enough, not on the weekends. His apparently is not particularly helpful with the wound care. He told me he would like to seek an Extended Care Facility through his [facility]. We went ahead and made those arrangements for him. DISCHARGE PLANS AND MEDICATIONS: Ed to be discharged to our [facility] over in the [facility]. He Electronically Signed By: KOLBY ESPAÑA MD 08/15/17 0826 PATIENT NAME: ALEN ARANDA DISCHARGE SUMMARY DATE OF : 50 PHYSICIAN: KOLBY ESPAÑA MD REPORT #: [id number] REPORT IS CONFIDENTIAL AND NOT TO BE RELEASED WITHOUT AUTHORIZATION [address] [address] Signed will do his wet to moist gauze packing along with a dry ABD over top in his abdominal binder. Ed is very allergic to tape. In fact in my absence, he had some tape placed on his abdomen and he had blisters out laterally from the tape. At this point, they were beginning to dry. He was emphatic that we not use a wound VAC or any tape. In addition, we will have him continue his ADA diet along with his regular medications. We will finish up his antibiotics as an outpatient. I will have him back in the office in a week or so after discharge. He has expressed understanding and agrees above plan. Kolby España MD ALB/MODL /[id number] cc: Jericho Cao MD Electronically Signed By: KOLBY ESPAÑA MD 08/15/17 0826 PATIENT NAME: ALEN ARANDA DISCHARGE SUMMARY DATE OF : 50 PHYSICIAN: KOLBY ESPAÑA MD REPORT #: [id number] REPORT IS CONFIDENTIAL AND NOT TO BE RELEASED WITHOUT AUTHORIZATION
== END 2017-07-29 13:20 | disposition home or self-care (01) | DRG 902 ==
LOC: ED 11:00 → MS 11:01
PROVIDERS: ADMIT Colon & Rectal Surgery
PROC: 0JB80ZZ Excision of Abdomen Subcutaneous Tissue and Fascia, Open Approach (ICD-10-PCS; 2017-07-20)
PROC: 0J980ZZ Drainage of Abdomen Subcutaneous Tissue and Fascia, Open Approach (ICD-10-PCS; principal; 2017-07-20 11:00)
DX: L76.34 Postprocedural seroma of skin and subcutaneous tissue following other procedure (principal); I13.0 Hypertensive heart and chronic kidney disease with heart failure and stage 1 through stage 4 chronic kidney disease, or unspecified chronic kidney disease; L02.216 Cutaneous abscess of umbilicus; Z68.43 Body mass index [BMI] 50.0-59.9, adult; I50.9 Heart failure, unspecified; N18.3 Chronic kidney disease, stage 3 (moderate); N40.0 Benign prostatic hyperplasia without lower urinary tract symptoms; I48.91 Unspecified atrial fibrillation; I25.10 Atherosclerotic heart disease of native coronary artery without angina pectoris; E79.0 Hyperuricemia without signs of inflammatory arthritis and tophaceous disease; E11.40 Type 2 diabetes mellitus with diabetic neuropathy, unspecified; E11.22 Type 2 diabetes mellitus with diabetic chronic kidney disease; E66.01 Morbid (severe) obesity due to excess calories; B96.5 Pseudomonas (aeruginosa) (mallei) (pseudomallei) as the cause of diseases classified elsewhere; Y83.8 Other surgical procedures as the cause of abnormal reaction of the patient, or of later complication, without mention of misadventure at the time of the procedure; Z79.01 Long term (current) use of anticoagulants; Z21 Asymptomatic human immunodeficiency virus [HIV] infection status; Z79.4 Long term (current) use of insulin; F20.9 Schizophrenia, unspecified; Z87.891 Personal history of nicotine dependence
CPT/HCPCS: 00400; 36415; 76705; 80048; 80053; 80069; 80202; 82247; 82465; 83615; 83735; 84100; 84478; 84550; 85025; 85610; 85730; 86361; 87070; 87075; 87077; 87186; 87205; 93005; 93010; 94760; 97110; 97116; 97162; 97530; G8978; G8979; J0692; J0696; J1200; J1644; J2704; J3010; J3370; J7060; J7120

== ENCOUNTER → 2017-09-11 | Emergency (ER) | payer OTHER ==
[~2017-09-11] VITALS: Ht 188 cm; Wt 217.7 kg
[~2017-09-11] MED LIST changes: +ANTI-ITCH28 G1 TOP; +ANTIFUNGAL CREA14 GM TOP; +CIPROFLOXACIN750 MG PO; +TOPROL XL200 MG PO
--- NOTE | 2017-09-11 19:04 | EKG ---
[facility] [address] [facility] [place] [address] Signed Atrial fibrillation with premature ventricular or aberrantly conducted complexes Rightward axis Pulmonary disease pattern T wave abnormality, consider inferior ischemia Prolonged QT Abnormal ECG When compared with ECG of 19-JUL-2017 18:14, Current undetermined rhythm precludes rhythm comparison, needs review Confirmed by BENJY CAI MD ([id number]) on 09/11/2017 7:04:29 PM Electronically Signed By: BENJY CAI MD 09/11/17 1904 PATIENT NAME: ALEN ARANDA Electrocardiogram DATE OF : 50 PHYSICIAN: BENJY CAI MD REPORT #: [id number] REPORT IS CONFIDENTIAL AND NOT TO BE RELEASED WITHOUT AUTHORIZATION
== END | disposition home or self-care (01) ==
LOC: ED 16:15
DX: T82.198A Other mechanical complication of other cardiac electronic device, initial encounter (principal); I48.2 Chronic atrial fibrillation; B20 Human immunodeficiency virus [HIV] disease; I50.9 Heart failure, unspecified; I10 Essential (primary) hypertension; E11.9 Type 2 diabetes mellitus without complications; E66.01 Morbid (severe) obesity due to excess calories; Z86.73 Personal history of transient ischemic attack (TIA), and cerebral infarction without residual deficits; Z87.891 Personal history of nicotine dependence; Z88.2 Allergy status to sulfonamides; Z91.048 Other nonmedicinal substance allergy status; Z88.1 Allergy status to other antibiotic agents; Z79.899 Other long term (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; Z79.4 Long term (current) use of insulin; Z79.01 Long term (current) use of anticoagulants
CPT/HCPCS: 71010; 80053; 83735; 83880; 84484; 85025; 93005; 93010; 99284

== ENCOUNTER 2018-06-19 14:17 | Emergency (ER) | payer OTHER ==
[~2018-06-19] VITALS: Ht 188 cm; Wt 217.9 kg
--- OUTSIDE RECORDS SUMMARY | ~2018-06-19 | XMS | Clinical Summary ---
Demographics + + + | Address | [address] [place] [address] | | | [place] [address] | + + + | Home Phone [...] Author + + + | Author | [facility] | + + + [...] | | | | | [place] [address] | | + + + + + Care Team Providers + +------+ + | Care Director Of Income Tax Name | Role | Phone | + +------+ + | Romain Harrington MD | PP | | + +------+ + Source Comments MANUEL is fully live on both [facility] Ambulatory and [facility] InPatient.[facility] Allergies + + + + + [...] | + + + + + + Current Medications + + +-------+---------+------+------+-------+ | Prescription | Sig. | Disp. | Refills | Star | End | Statu | | | | | | t | Date | s | | | | | | Date | | | + + +-------+---------+------+------+-------+ | calcium acetate | Take 1,334 mg by | | | | | Activ | | 667 mg Oral Capsule | mouth three times | | | | | e | | | daily with meals. | | | | | | + + +-------+---------+------+------+-------+ | camphor-menthol | Apply to affected | | | | | Activ | | 0.5-0.5 % Topical | area as needed. | | | | | e | | Lotion | | | | | | | + + +-------+---------+------+------+-------+ | gabapentin 600 mg | Take 300 mg by mouth | | | | | Activ | | Oral Tablet | two times daily. | | | | | e | + + +-------+---------+------+------+-------+ | Insulin Asp | Inject 30 Units | | | | | Activ | | Prt-Insulin Aspart | under the skin | | | | | e | | 100 unit/mL (70-30) | (SUBC) before meals. | | | | | | | Subcutaneous Insulin | | | | | | | | Pen | | | | | | | + + +-------+---------+------+------+-------+ | insulin glargine | Inject 40 Units | | | | | Activ | | 100 unit/mL | under the skin | | | | | e | | Subcutaneous | (SUBC) two times | | | | | | | Solution | daily. | | | | | | + + +-------+---------+------+------+-------+ | metoprolol | Take 50 mg by mouth | | | | | Activ | | tartrate 50 mg Oral | once daily. | | | | | e | | Tablet | | | | | | | + + +-------+---------+------+------+-------+ | warfarin 5 mg Oral | Take 2.5 mg by | | | | | Activ | | TabletIndications: | mouth. As directed | | | | | e | | Cerebral | by clinic | | | | | | | Thromboembolism | Indications: | | | | | | | Prevention | Cerebral | | | | | | | | Thromboembolism | | | | | | | | Prevention | | | | | | + + +-------+---------+------+------+-------+ | furosemide 80 mg | Take 80 mg by mouth | | | | | Activ | | oral tablet | two times daily. | | | | | e | + + +-------+---------+------+------+-------+ | aMILoride 5 mg | Take 5 mg by mouth | | | | | Activ | | oral tablet | two times daily. | | | | | e | + + +-------+---------+------+------+-------+ | hydrOXYzine | Take 25 mg by mouth | | | | | Activ | | pamoate 25 mg oral | twice daily as | | | | | e | | capsule | needed. | | | | | | + + +-------+---------+------+------+-------+ | | Take 1 tablet by | | | | | Activ | | HYDROcodone-acetamin [...] | | | | | + + +-------+---------+------+------+-------+ | Lactobacillus | Take 2 capsules by | | | | | Activ | | acidophilus oral | mouth two times | | | | | e | | capsule | daily. | | | | | | + + +-------+---------+------+------+-------+ | magnesium oxide | Take 420 mg by mouth | | | | | Activ | | 400 mg oral tablet | two times daily. | | | | | e | + + +-------+---------+------+------+-------+ | sertraline 50 mg | Take 75 mg by mouth | | | | | Activ | | oral tablet | once daily. | | | | | e | + + +-------+---------+------+------+-------+ | allopurinol 100 mg | Take 100 mg by mouth | | | | | Activ | | oral tablet | once daily. | | | | | e | + + +-------+---------+------+------+-------+ | chlorthalidone 25 | Take 25 mg by mouth | | | | | Activ | | mg oral tablet | once daily. | | | | | e | + + +-------+---------+------+------+-------+ | hydrALAZINE 10 mg | Take 10 mg by mouth | | | | | Activ | | oral tablet | two times daily. | | | | | e | + + +-------+---------+------+------+-------+ | isosorbide | Take 30 mg by mouth | | | | | Activ | | dinitrate 30 mg oral | once daily. | | | | | e | | tablet | | | | | | | + + +-------+---------+------+------+-------+ | potassium chloride | Take 20 mEq by mouth | | | | | Activ | | SR 20 mEq oral | four times daily. | | | | | e | | tablet,ER | | | | | | | | particles/crystals | | | | | | | + + +-------+---------+------+------+-------+ | omega | Take 200 mg by mouth | | | | | Activ | | 8-lbr-aql-fish oil | two times daily. | | | | | e | | (FISH OIL) | | | | | | | | 100-160-1,000 mg | | | | | | | | oral capsule | | | | | | | + + +-------+---------+------+------+-------+ | | Take 600 mg by mouth | | | | | Activ | | ABACAVIR/DOLUTEGRAVI [...] | | | | | + + +-------+---------+------+------+-------+ | cefDINir 300 mg | Take 600 mg by mouth | | | | | Activ | | oral capsule | two times daily. | | | | | e | + + +-------+---------+------+------+-------+ Active Problems + + + | Problem [...] + +---------+ + | Alcohol Use | Drinks/We | oz/Week | Comments | | | ek | | | + + +---------+ + | Yes | 0 | 0.0 | | | | Standard | | | | | drinks or | | | | | | | | | | equivalen | | | | | t | | | + + +---------+ + + + + | Sex Assigned at | Date Recorded | | | | + + + | Not on file | | + + + Last Filed Vital Signs + + + + | Vital Sign | Reading | Time Taken | + + + + | Blood Pressure | 138/86 | 05/17/2015 8:52 AM PDT | + + + + | Pulse | 68 | 05/17/2015 8:52 AM PDT | + + + + | Temperature | 36.9 C (98.4 F) | 03/21/2012 4:05 PM PDT | + + + + | Respiratory Rate | 20 | 05/17/2015 8:52 AM PDT | + + + + | Oxygen Saturation | 93% | 03/21/2012 10:46 PM PDT | + + + + | Inhaled Oxygen | - | - | | Concentration | | | + + + + | Weight | 171.5 kg (378 lb) | 03/21/2012 4:05 PM PDT | + + + + | Height | - | - | + + + + | Body Mass Index | - | - | + + + + Plan of Treatment + + + + + | Health Maintenance | Due Date | Last Done | Comments | + + + + + | Pneumococcal (Adult) | | | | | (1 of 2 - PCV13) | 6 | | | + + + + + | INFLUENZA VACCINE | | | | | (FLU SHOT) | 8 | | | + + + + + Results Not on filefrom Last 3 Months Insurance + +--------+ +--------+ + + | Payer | Benefi | Subscriber | Type | Phone | Address | | | t Plan | ID | | | | | | / | | | | | | | Group | | | | | + +--------+ +--------+ + + | [employer] | VA | xxxxxxxxx | Indemn | | [address] | | CONTRACT | INDUST | | ity | | [place] [id number] | | | RIAL | | | | | | | ACCT | | | | | | | CONTRA | | | | | | | CT | | | | | + +--------+ +--------+ + + | [employer] | VA | [phone] | Agency | +- | [address] | | ADMINISTRATION | COMMUN | | | [address] | [place] [address] | | | ITY | | | | | | | OUTSOU | | | | | | | RCE | | | | | + +--------+ +--------+ + + | VETERANS | V[facility]A | xxxxxxxxx | Agency | +- | [address] | | ADMINISTRATION | NS | | | [address] | [place] [address] | | | ADMINI | | | | | | | STRATI | | | | | | | ON | | | | | + +--------+ +--------+ + + | MEDICARE | MEDICA | [phone] | Medica | +- | [address] | | | RE | | re | [phone] | [place] [address] | | | PART A | | | | | + +--------+ +--------+ + + + +--------+ +--------+ + + | Guarantor Name | Accoun | Relation to | Date | Phone | Billing Address | | | t Type | Patient | of | | | | | | | | | | + +--------+ +--------+ + + | SARTHAK ARANDA | Person | Self [birth year] | Home: | [address] | | | al/Fam | | 1950 | [phone] | [place] [address] | | | john | | | [phone] | | + +--------+ +--------+ + + | SARTHAK ARANDA | Person | Self | [birth year] | Home: | [address] | | | al/Fam | | 1950 | [phone] | [place] [address] | | | john | | | [phone] | | + +--------+ +--------+ + + | [id number] | Indust | Other | 09/20/ | | [place] [id number] | | | laith | | [phone] | | [place] | | | | | | | [phone] | + +--------+ +--------+ + + | SARTHAK ARANDA | Self | [birth year] | Home: | [address] | | | [place] | | 1950 | [phone] | [place] [address] | | | red | | | [phone] | | + +--------+ +--------+ + +"
--- OUTSIDE RECORDS SUMMARY | ~2018-06-19 | XMS | Clinical Summary ---
Demographics + + + | Address | [place] [address] | + + + | Home Phone | | + + + | Preferred Language | Unknown | + + + | Marital Status | Unknown | + + + | Voodoo Affiliation | Unknown | + + + | Race | Unknown | + + + | Ethnic Group | Unknown | + + + Author + + + | Author | [facility] | + + + | Organization | [facility] | + + + | Address | Unknown | + + + | Phone | Unavailable | + + + Care Team Providers + +------+ + | Care Patient Service Technician Pst Name | Role | Phone | + [...]
--- OUTSIDE RECORDS SUMMARY | ~2018-06-19 | XMS | Clinical Summary ---
Demographics + + + | Address | [address] [place] [address] | | | [place] [address] | + + + | Home Phone | | + + + | Preferred Language | Unknown | + + + | Marital Status | Single | + + + | Rastafari Affiliation | PEN | + + + [...] | | | | | [place] [address] | | + + + + + Care Team Providers + +------+ + | Care Fleet Assistant Name | Role | Phone | + +------+ + | Romain Harrington MD | PP | | + +------+ + Source Comments MANUEL is fully live on both Epic[facility] Ambulatory and [facility] InPatient.[facility] Allergies + + + + + [...] | | | | Activ | | 7-wke-mtx-fish oil | two times daily. | | [...] xxxxxxxxx | Indemn | | [address] | | CONTRACT | INDUST | | ity | | [place] [address] | | | RIAL | | | | | | | ACCT | | | | | | | CONTRA | | | | | | | CT | | | | | + +--------+ +--------+ + + | VET[facility] | VA | xxxxxxxxx | Agency | +- | [address] | | ADMINISTRATION | COMMUN | | | [address] | [place] [address] | | | ITY | | | | | | | OUTSOU | | | | | | | RCE | | | | | + +--------+ +--------+ + + | VETERANS | VETERA | xxxxxxxxx | Agency | +- | [address] | | ADMINISTRATION | NS | | | [address] | [place] [address] | | | ADMINI | | | | | | | STRATI | | | | | | | ON | | | | | + +--------+ +--------+ + + | MEDICARE | MEDICA | xxxxxxxxxx | Medica | +- | [address] | | | RE | | re | [phone] | [place] [address] | | | PART A | | [...] | | al/Fam | | 1950 | [phone] | [place] [address] | | | john | | | [phone] | | + +--------+ +--------+ + + | SARTHAK ARANDA | Person | Self [birth year] | Home: | [address] | | | al/Fam | | 1950 | [phone]- | [place] [address] | | | john | | | [address] | | + +--------+ +--------+ + + | [id number] | Indust | Other | 09/20/ | | [place] [id number] | | | laith | | [phone] | | [place] | | | | | | | [phone] | + +--------+ +--------+ + + | SARTHAK ARANDA | Self | [birth year] | Home: | [address] | | | [place] | | 1950 | [phone] | [place] [address] | | | red | | | [address] | | + +--------+ +--------+ + +"
--- OUTSIDE RECORDS SUMMARY | ~2018-06-19 | XMS | Clinical Summary ---
Demographics + + + | Address | [place] [address] | + + + | Home Phone | | + + + | Preferred Language | Unknown | + + + | Marital Status | Unknown | + + + | Uatsdin Affiliation | Unknown | + + + | Race | Unknown | + + + | Ethnic Group | Unknown | + + + Author + + + | Author | [facility] | + + + | Organization | [facility] | + + + | Address | Unknown | + + + | Phone | Unavailable | + + + Care Team Providers + +------+ + | Care Cam Milling Machine Operator Name | Role | Phone [...]
--- OUTSIDE RECORDS SUMMARY | 2018-06-19 14:22 | XMS ---
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 PHONE: [phone] IHSAN BURTON 05/17/2015-Current PHONE: [phone] ESPERANZA CABRALES [facility] PHONE: Unknown Wyatt has no Care Guidelines for this patient. EFranky VISIT COUNT (12 MO.) [address] [place] [address] [facility] TOTAL 8 NOTE: Visits indicate total known visits. ED/UCC VISIT TRACKING (12 MO.) 06/19/2018 14:18 [facility] TYPE: Emergency COMPLAINT: - POSSIBLE STROKE 09/12/2017 12:22 [facility] TYPE: Emergency COMPLAINT: - SOB 09/12/2017 07:15 [facility] TYPE: Emergency COMPLAINT: - SHORTNESS OF BREATH 09/11/2017 16:16 [facility] [place] TYPE: Emergency COMPLAINT: - SOB/DEFIBULATOR ISSUE DIAGNOSES: - shelter (current) use of insulin - Other nonmedicinal substance allergy status - Shortness of breath - Chronic atrial fibrillation - Type 2 diabetes mellitus without complications - Allergy status to sulfonamides status - Unspecified atrial fibrillation - Heart failure, unspecified - Allergy status to other antibiotic agents status - Other mcfp (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 - Morbid (severe) obesity due to excess calories - Personal history of nicotine dependence - Personal history of transient ischemic attack (TIA), and cerebral infarction without residual deficits - Other mechanical complication of other cardiac electronic device, initial encounter - Essential (primary) hypertension - shelter (current) use of anticoagulants 09/03/2017 07:34 [facility] [place] System TYPE: Emergency COMPLAINT: - CELLULITIS 08/29/2017 13:52 [facility] [employer] OR System TYPE: Emergency COMPLAINT: - LOWER EXTREMITY DISCOMFORT 08/25/2017 16:54 [facility] System TYPE: Emergency COMPLAINT: - URO MALE DIAGNOSES: - LEFT TESTICULAR PAIN - Hydrocele, unspecified - SCROTAL PAIN 07/19/2017 11:00 [facility] [place] TYPE: Emergency COMPLAINT: - FALL/KNEE PAIN/INJURY INPATIENT VISIT TRACKING (12 MO.) 09/12/2017 12:22 [facility] TYPE: Medical Surgical COMPLAINT: - DYSPNEA, CHF, MORBID OBESITY, HIV, DIABETES DIAGNOSES: 0. Shortness of breath 1. Hypertensive heart disease with heart failure 2. Acute kidney failure, unspecified 3. Heart failure, unspecified 3. Acute kidney failure, unspecified 4. Hypokalemia 4. Body mass index (BMI) 60.0-69.9, adult 4. Type 2 diabetes mellitus with diabetic neuropathy, unspecified 5. Type 2 diabetes mellitus with diabetic neuropathy, unspecified 5. Body mass index (BMI) 60.0-69.9, adult 5. Chronic atrial fibrillation 6. Chronic atrial fibrillation 6. Type 2 diabetes mellitus without complications 7. Morbid (severe) obesity due to excess calories 7. Diarrhea, unspecified 8. Hypokalemia 9. Obstructive sleep apnea (adult) (pediatric) 9. Omphalitis not of 10. Omphalitis not of 10. Other surgical procedures as the cause of abnormal reaction of the patient, or of later complication, without mention of misadventure at the time of the procedure 11. Heart failure, unspecified 11. Other surgical procedures as the cause of abnormal reaction of the patient, or of later complication, without mention of misadventure at the time of the procedure 12. Heart failure, unspecified 12. Diarrhea, unspecified 13. Personal history of transient ischemic attack (TIA), and cerebral infarction without residual deficits 13. Generalized skin eruption due to drugs and medicaments taken internally 14. 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 Diarrhea, unspecified 15. Obstructive sleep apnea (adult) (pediatric) 16. Allergy status to other antibiotic agents status 16. Personal history of transient ischemic attack (TIA), and cerebral infarction without residual deficits 17. Allergy status to penicillin 17. shelter (current) use of insulin 18. Allergy status to other antibiotic agents status 18. Allergy status to sulfonamides status 19. Allergy status to penicillin 19. Other nonmedicinal substance allergy status 20. Allergy status to sulfonamides status 20. Personal history of nicotine dependence 21. Personal history of other mental and behavioral disorders 21. Other nonmedicinal substance allergy status 22. Rash and other nonspecific skin eruption 22. Personal history of nicotine dependence 23. Infection following a procedure, subsequent encounter 23. Personal history of other mental and behavioral disorders 24. Infection following a procedure, subsequent encounter 24. Acquired absence of other specified parts of digestive tract 25. Acquired absence of other specified parts of digestive tract 25. Presence of automatic (implantable) cardiac defibrillator 26. Presence of automatic (implantable) cardiac defibrillator 09/03/2017 13:37 [facility] TYPE: Medical Surgical COMPLAINT: - CELLULITIS [email or web address]
--- NOTE | 2018-06-20 18:24 | EKG ---
[facility] [address] [place] [address] Signed Atrial fibrillation with premature ventricular or aberrantly conducted complexes Rightward axis Abnormal ECG When compared with ECG of 11-SEP-2017 16:26, Previous ECG has undetermined rhythm, needs review T wave inversion no longer evident in Inferior leads Nonspecific T wave abnormality no longer evident in Lateral leads Confirmed by FINN GLEASON MD ([id number]) on 06/20/2018 6:24:14 PM Electronically Signed By: FINN GLEASON MD 06/20/18 1824 PATIENT NAME: ALEN ARANDA Electrocardiogram DATE OF : 50 PHYSICIAN: FINN GLEASON MD REPORT #: [id number] REPORT IS CONFIDENTIAL AND NOT TO BE RELEASED WITHOUT AUTHORIZATION
== END 2018-06-19 19:32 | disposition short-term general hospital (02) ==
LOC: ED 14:17
DX: I63.9 Cerebral infarction, unspecified (principal); I11.0 Hypertensive heart disease with heart failure; I50.9 Heart failure, unspecified; I48.91 Unspecified atrial fibrillation; E11.9 Type 2 diabetes mellitus without complications; Z87.891 Personal history of nicotine dependence; Z88.2 Allergy status to sulfonamides; Z91.048 Other nonmedicinal substance allergy status; Z88.0 Allergy status to penicillin; B20 Human immunodeficiency virus [HIV] disease; Z79.899 Other long term (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; Z79.01 Long term (current) use of anticoagulants; Z79.4 Long term (current) use of insulin
CPT/HCPCS: 70450; 70496; 70498; 71045; 73110; 73130; 80053; 84484; 85025; 85610; 85730; 86361; 93005; 93010; 99285; J7030; Q9967

== ENCOUNTER 2019-08-11 14:59 | Observation (INO) | payer OTHER ==
[~2019-08-11] VITALS: Ht 188 cm; Wt 157.2 kg
--- OUTSIDE RECORDS SUMMARY | ~2019-08-11 | XMS | Encounter Summary ---
Demographics + + + | Address | [address] | | | [place] [address] | + + + | Home Phone | | + + + | Preferred Language | Unknown | + + + | Marital Status | | + + + | Taoism Affiliation | [id number] | + + + | Race | Unknown | + + + | Ethnic Group | Unknown | + + + Author + + + | Author | [facility] | | | and [place] | + + + | Organization | [facility] | | | and [place] | + + + | Address | Unknown | + + + | Phone | Unavailable | + + + Support + + + + + | Name | Relationship | Address | Phone | + + + + + | Aileen Nelson | ECON | [address] | | | | | [place] | | | | | [address] | | + + + + + Care Team Providers + +------+ + | [facility] Attendant Name | Role | Phone | + +------+ + | Jericho Cao MD | PCP | | + +------+ + Encounter Details +--------+ + + + + | Date | Type | Department | Care Team | Description | +--------+ + + + + | 06/22/ | Hospital | [facility] | Pramod Salinas | Neurogenic bladder; | | 2017 - | Encounter | [facility] [address] | MD Ekaterina [address] | Acute left | | | | [place], | [address] [place] | hemiparesis (HCC); | | 07/01/ | | [place] [address] | [place] [address] | Diabetic peripheral | | 2018 | | [phone] | [phone] | neuropathy (HCC); | | | | | | Dysphagia due to | | | | | | recent cerebral | | | | | | infarction; HIV | | | | | | (human | | | | | | immunodeficiency | | | | | | virus infection) | | | | | | ([facility]) | +--------+ + + + + Social History + +-------+ +--------+ + | Tobacco Use | Types | Packs/Day | Years | Date | | | | | Used | | + +-------+ +--------+ + | Former Smoker | | 1.5 | 17 | Quit: 09/20/1983 | + +-------+ +--------+ + + +---+---+ + | Smokeless Tobacco: | | | Quit: | | Former User | | | 09/25/18 | | | | | 84 | + +---+---+ + + + | Comments: quit in 1983 | + + + + + | Sex Assigned at | Date Recorded | | | | + + + | Not on file | | + + + + + + + | Job Start Date | Occupation | Industry | + + + + | Not on file | Not on file | Not on file | + + + + + + + + | Travel History | Travel Start | Travel End | + + + + + + | No recent travel history available. | + + documented as of this encounter Last Filed Vital Signs + + + + + | Vital Sign | Reading | Time Taken | Comments | + + + + + | Blood Pressure | 173/87 | 07/01/2018 8:28 AM | | | | | PDT | | + + + + + | Pulse | 82 | 07/01/2018 8:28 AM | | | | | PDT | | + + + + + | Temperature | 36 C (96.8 F) | 07/01/2018 8:28 AM | | | | | PDT | | + + + + + | Respiratory Rate | 16 | 07/01/2018 11:45 AM | | | | | PDT | | + + + + + | Oxygen Saturation | 95% | 07/01/2018 8:28 AM | | | | | PDT | | + + + + + | Inhaled Oxygen | - | - | | | Concentration | | | | + + + + + | Weight | 170.2 kg (375 lb 3.2 | 06/29/2018 6:55 AM | | | | oz) | PDT | | + + + + + | Height | 188 cm (6' 2.02") | 06/25/2018 7:39 AM | | | | | PDT | | + + + + + | Body Mass Index | 48.15 | 06/25/2018 7:39 AM | | | | | PDT | | + + + + + documented in this encounter Functional Status + + + + | Functional Status | Response | Date of Assessment | + + + + | Are you deaf or do you have serious | No | 06/22/2018 | | difficulty hearing? | | | + + + + | Are you blind or do you have serious | No | 06/22/2018 | | difficulty seeing, even when wearing | | | | glasses? | | | + + + + | Do you have serious difficulty walking or | Yes | 06/22/2018 | | climbing stairs? (5 years old or older) | | | + + + + | Do you have difficulty dressing or bathing? | Yes | 06/22/2018 | | (5 years old or older) | | | + + + + | Because of a physical, mental, or emotional | Yes | 06/22/2018 | | condition, do you have difficulty doing | | | | errands alone such as visiting a doctor's | | | | office or shopping? [15 years old or | | | | older)] | | | + + + + + + + + | Cognitive Status | Response | Date of Assessment | + + + + | Because of a physical, mental, or emotional | No | 06/22/2018 | | condition, do you have serious difficulty | | | | concentrating, remembering, or making | | | | decisions? (5 years old or older) | | | + + + + documented as of this encounter Discharge Summaries Pramod Salinas MD - 07/01/2018 11:06 AM PDT REHABILITATION DISCHARGE SUMMARY Patient Identification: Sarthak Nelson : 1950 Admit Date: 06/22/2018 Attending Provider: Pramod Salinas MD Primary Care Physician: Jericho Cao MD Impairment Group: Stroke 01.1 Left body involvement (right brain) Etiologic Diagnosis: CVA Discharge date and time: 07/01/18 Discharge Physician: Pramod Salinas MD Social History: per chart review and confirmed with pt Social History Social History Marital status: Spouse name: N/A Number of children: N/A Years of education: N/A Occupational History Not on file. Social History Main Topics Smoking status: Former Smoker Packs/day: 1.50 Years: 17.00 Quit date: 09/20/1983 Smokeless tobacco: Former User Quit date: 09/25/1983 Comment: quit in 1983 Alcohol use Not on file Drug use: Unknown Sexual activity: Not on file Other Topics Concern Not on file Social History Narrative No narrative on file Consults: Rehabilitation nursing Physical Therapy Occupational Therapy Speech Therapy Social Work Significant Diagnostic Studies: Recent Results (from the past 360 hour(s)) IMAGING REPORT - EXTERNAL SCAN Narrative Ordered by an unspecified provider. XR Chest AP Portable Narrative XR CHEST AP PORTABLE 06/19/2018 9:32 PM HISTORY: Eval for MRI/PPM. COMPARISON: None. Findings: There appears to be a left pacemaker lead extending to the right ventricle with the left border not imaged. The heart is enlarged. There is atherosclerosis of the aorta. Mediastinum is unremarkable. Pulmonary vasculature is prominent with cephalization. Mild atelectasis is in the left lung base. The right lung is clear. There are no acute osseous abnormalities. IMPRESSION - Apparent pacemaker lead over left chest that is partially imaged. Cardiomegaly with pulmonary congestion. Dictated and Signed by: Chacho Yarbrough MD Electronically signed: 06/20/2018 12:08 PM VAS Carotid Duplex Bilateral Narrative VAS CAROTID DUPLEX BILATERAL 06/20/2018 6:50 AM HISTORY: Evaluate for carotid artery stenosis. COMPARISON: None. PROTOCOL: Norton scale and Doppler images of the carotid arteries. FINDINGS: Right: There is minimal atherosclerosis of the carotid bulb extending into the proximal ICA and ECA. Peak systolic velocity (cm/s), end diastolic velocity (cm/s). Mid CCA: 52, 6 Bulb: 41, 8 ECA: 80, 8 Highest ICA: 58, 15 Vertebral: Antegrade flow Bulb/mid CCA ratio: Less than 1 High ICA/mid CCA ratio: 1.12 Left: There is minimal atherosclerosis of the carotid bulb extending into the proximal ICA and ECA. Peak systolic velocity (cm/s), end diastolic velocity (cm/s). Mid CCA: 51, 11 Bulb: 42, 9 ECA: 84, 10 Highest ICA: 97, 28 Vertebral: Antegrade flow Bulb/mid CCA ratio: Less than 1 High ICA/mid CCA ratio: 1.90 IMPRESSION - No hemodynamically significant stenosis. Dictated and Signed by: Chacho Yarbrough MD Electronically signed: 06/20/2018 1:[address] Head wo Contrast Narrative EXAM: CT HEAD WO CONTRAST dated 06/20/2018 3:39 PM HISTORY: left weak, slurred speech Comparison: None. TECHNIQUE: Noncontrast CT is performed from the top of calvarium through the skull base. Coronal and sagittal reformats are performed. DOSE: DLP 785.6 by mGy-cm FINDINGS: BRAIN: There is mild cerebral atrophy. There is appropriate associated prominence of the ventricles. No areas of increased attenuation to suggest intracranial hemorrhage. There is no mass, mass effect, or midline shift. There are no abnormal extra-axial fluid or air collections. Focal area of loss of norton-white differentiation involving the right insula There are mild scattered regions of periventricular and subcortical white matter low density. Focal hypodensity in the right basal ganglia suggesting remote infarcts. Focal encephalomalacia the posterior left frontoparietal junction, left temporal lobe, and left insular cortex. SCALP/ CALVARIUM: The scalp and skull are intact and are unremarkable. SINUSES / ORBITS/ MASTOIDS: The visible mastoid air cells and paranasal sinuses are clear. The globes and retroconal contents are intact and are unremarkable. IMPRESSION - Acute to subacute ischemia involving the right insula. No evidence for intracranial hemorrhage. Remote left insular, left temporal lobe, and left frontoparietal infarcts. Evidence of prior lacunar infarcts in the right basal ganglia. Dictated and Signed by: Jorge Cueto MD Electronically signed: 06/20/2018 3:[address] Head wo Contrast Narrative TECHNIQUE: Noncontrast axial CT imaging was obtained through the brain with coronal and sagittal reformats. CLINICAL INFORMATION: Re- assess the size of the CVA ( for theraleutic purpose to start on NOAC) COMPARISON: CT dated 06/20/2018. FINDINGS: Stable appearance of the right insula acute to subacute infarction. No new infarction. No intracranial hemorrhage, mass, or mass effect. Remote left insular, temporal, and frontal parietal infarctions are stable in appearance. Chronic right basal ganglia lacunar infarctions are again noted. Prominent bilateral carotid siphon and distal vertebral artery calcifications. Stable cerebral volume loss with prominence of the ventricles and other CSF spaces. IMPRESSION - Stable appearance of the right insula acute to subacute infarction. No acute intracranial hemorrhage. Other chronic findings are stable. Dictated and Signed by: Palomo Chino MD Electronically signed: 06/21/2018 2:42 PM XR Forearm Left 2 Vw Narrative TWO VIEWS LEFT FOREARM 06/26/2018 3:47 PM CLINICAL HISTORY: Wrist and forearm pain and swelling. History of fall. COMPARISON: None available FINDINGS: In tact plate and screw fixation hardware is present along the mid to distal radial diaphysis, bridging a healed appearing fracture site. There is smooth contour deformity and some bowing of the distal radius. Positive ulnar variance is apparent. An ossicle at the level of the ulnar styloid likely relates to remote trauma. No recent fracture is evident. There is narrowing of the triscaphe joint. A small square-shaped high density foreign body projects over the base of the thumb. There is confluent arterial calcification. IMPRESSION - 1. NO CONCLUSIVE RADIOGRAPHIC EVIDENCE OF ACUTE INJURY. 2. POSITIVE ULNAR VARIANCE, POTENTIALLY RELATED TO PREVIOUS, NOW HEALED RADIAL FRACTURE. 3. SMALL FOREIGN BODY IN THE BASE OF THE THUMB. 4. ARTERIAL CALCIFICATION. Dictated and Signed by: Edmond Caruso MD Electronically signed: 06/26/2018 9:30 PM FL Video Swallow w Speech Narrative MODIFIED BARIUM SWALLOW 06/29/2018 9:05 AM CLINICAL HISTORY: Determine cause/severity of dysphagia s/p CVA COMPARISON: None available TECHNIQUE: In the upright position, the patient was challenged with various barium laden foods. Fluoroscopy was utilized to evaluate swallow function. The exam was directed by the speech therapist. FINDINGS: Reduced lateral mastication pattern was noted, with trace coating of oral structures. There was intermittent loss of bolus control with nectar thick liquid by cup. Trace penetration to the vocal folds was noted with nectar thick liquid and thin liquid by cup. Less penetration was observed with smaller sips. There was adequate hyoid excursion but reduced elevation. Swallow trigger was noted at the level of the piriform sinuses with large sips of thin liquids. There was trace aspiration of thin liquid via straw, with cough reflex. IMPRESSION - 1. MILD TO MODERATE SWALLOWING IMPAIRMENT WITH RISK FOR ASPIRATION. PLEASE SEE THE SPEECH THERAPY REPORT FOR FURTHER DETAILS. Dictated and Signed by: Edmond Caruso MD Electronically signed: 06/29/2018 10:59 AM Treatments: intensive inpatient rehabilitation ADMISSION HPI: Sarthak Grayson a 67 y.o.malewho was admitted to [facility] on for CVA. The patient was in his usual state of health until mid morning of June 19 20 had sudde n onset of left-sided weakness. He was seen in an outlying hospital and emergently transfe rred here to [place] and admitted by Dr. Todd Sheffield MD. I reviewed the H&P CHIEF COMPLAINT: L sided weakness/Slurred speech HISTORY OF PRESENT ILLNESS: This is a 67 y.o.malewith a history ofIDDM, afib on warfarin, HTN, HIV, Chronic systo lic heart failure, CKD3, CVA (x 3 in the past) who presents with L sided weakness of slurred speech. Patient reports at 10:30am on day of presentation, standing near dresser and sudden ly having weakness. Patient fell to the floor with mildly hitting head. No loss of conscious ness. Typically ambulates with walker. Patient crawled to bed and called for EMS. Patient dixon d prior CVAs in the past. Patient reports prior CVA has effected R side. The left sided weak ness and slurred speech is new. Patient has been complaint with medications. Patient denies any other symptoms including chest pain, shortness of breath, N/V/D. Patient has been on warfarin. Patient presented to [facility]. Patient was out of timeframe for TPA at that time. EKG was consistent with atrial fibrillation. UDS was negative. N o leukocytosis. Creatinine 1.85. A CTA head and neck was performed showing no acute path ology. 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 At least 90% stenosis of the left proximal ICA and 50 % stenosis of the right proximal ICA. Cavernous carotids are at least 50% narrowed bilater ally. Patient was transferred to [facility] for further evaluation. ASSESSMENT: Principal Problem: Ischemic CVA Code Status Full Medical Decision Maker Self DVT Prophylaxis Warfarin PLAN: L sided weakness/slurred speech likely 2/2 to ischemic CVA Patient presents with acute symptoms. Prior history of CVA. Patient has history of diab etes. CTA A CTA head and neck was performed showing no acute pathology. Old left parieta l infarcts. At least 90% stenosis of the left proximal ICA and 50% stenosis of the right p roximal ICA. Cavernous carotids are at least 50% narrowed bilaterally.INR 1.4. EKG s howed atrial fibrillation. Possible risks include carotid stenosis, emboli from subtherape utic INR in setting of atrial fibrillation. -Ordered aspirin -MRI brain ordered, patient reports having pacemaker in place, will need to be evaluated to [facility] -TTE with bubble study ordered -Telemetry -Serial troponins ordered -PT/OT/FOOT CASTER ordered -Unclear medication reconciliation, ordered, as per list which appears to be inaccurate as per patient holding Imdur, hydralazine, metoprolol for permissive hypertension -Neuro checks -Ordered Carotid Ultrasound, no images from [facility] when completed would consider xenia langston with Dr. Romo for outpatient assessment -Warfarin ordered, will not bridge, unclear extent of CVA IDDM -Home regimen unclear, patient reports Lantus 50 units twice a day, NovoLog 20 units 3 time s a day, listed on paperwork 60 mg twice a day, 60 units 3 times a day -Will start lantus 45 units BID, lispro 20 units TID, ISS, will likely need to adjust Addendum: Decreased lantus and lispro due to failing bedside RN eval HTN As per above HIV -Cont Abacavir,dolutegravir,lamivudi ordered, may not be in stock Chronic systolic heart failure Patient reports holding lasix due to kidney injury, listed on [facility] information -Hold metoprolol for now given permissive HTN CKD 3 Cr 1.77 -Cr 2.4 in 2017 at [facility] History of CVA -On Warfarin, no ASA, atorvastatin listed?, likely emboli source in the past -Start ASA, atorvastatin FEN: Advance by bedside eval PPX: Warfarin Disp: PT/OT/FOOT CASTER ordered He underwent brain CT scans on June 20 and . I reviewed these films. COMPARISON: CT dated 06/20/2018. FINDINGS: Stable appearance of the right insula acute to subacute infarction. No new infarction. No intracranial hemorrhage, mass, or mass effect. Remote left insular, temporal, and frontal parietal infarctions are stable in appearance. Chronic right basal ganglia lacunar infarctions are again noted. Prominent bilateral carotid siphon and distal vertebral artery calcifications. Stable cerebral volume loss with prominence of the ventricles and other CSF spaces. IMPRESSION - Stable appearance of the right insula acute to subacute infarction. No acute intracranial hemorrhage. Other chronic findings are stable. progress note June 21 : ASSESSMENT/PLAN: Ischemic cerebrovascular accident (CVA): His presentation includes subtherapeutic INR x1. 5 months.HisWarfarin was startedwithout bridging asunclear extent of CVA, aspirin star lloyd then stopped, Will change toNOAC instead. Carotid Ultrasound without significant steno sis, which is in contrast to [facility]'s ultrasound. He has pacer sonot amenable with MRI and TTE with bubble study--negative IDDM (insulin dependent diabetes mellitus) : On lantus andlispro HTN (hypertension) : Permissive HTN and may need better control in the future. Will add t he BB and Continue imdur CKD (chronic kidney disease) : stable and improved RACHELLE :On CPAP HIV (human immunodeficiency virus infection) : Cont Abacavir,dolutegravir,lamivudi Chronic leg edema from, [facility] D[facility] Prophylaxis : on NOAC Code Status : Full Code. DISCHARGE PLAN: Discharge in to Rehab tomorrow . Discussed with patient and staff Ying Giron He has been stabilized acutely and cleared for full inpatient medical rehabilitation servic es. PMHx: (per chart review confirmed with pt) IDDM, afib on warfarin, HTN, HIV, Chronic systolic heart failure, CKD3, CVA (x 3 in the pas t) Morbid obesity, dyslipidemia, BPH, He has RACHELLE and uses CPAP at night. History of HIV disease, stable on medication. PSx: No past surgical history on file. Meds During Hospitalization Current Facility-Administered Medications Medication Dose Route Frequency Provider Last Rate Last Dose lckwrtxt-zsydtuacyyex-tqkwTTYwra (TRIUMEQ) 600-50-300 mg per tablet 1 tablet (POM) 1 t ablet Oral Nightly Pramod Salinas MD 1 tablet at 06/30/182033 apixaban (ELIQUIS) tablet 5 mg 5 mg Oral Q12H Pramod Salinas MD 5 mg at 07/01/18 0620 atorvaSTATin (LIPITOR) tablet 80 mg 80 mg Oral Daily Pramod Salinas MD 80 mg at 07/01/18 0828 bacitracin topical ointment Topical BID Pramod Salinas MD 1 Application at 06/20 11/07 1017 dextrose 50% injection 12.5 g 12.5 g Intravenous PRN Pramod Salinas MD diphenhydrAMINE (BENADRYL) capsule 50 mg 50 mg Oral Daily after dinner Pramod hancock MD 50 mg at 06/30/18 1718 finasteride (PROSCAR) tablet 5 mg 5 mg Oral Daily Pramod Salinas MD 5 mg at 06/20 11/07 0828 HYDROcodone-acetaminophen (NORCO) 5-325 mg per tablet 1-2 tablet 1-2 tablet Oral Q4H P RN Pramod Salinas MD 2 tablet at 06/30/18 203 hydrOXYzine pamoate (VISTARIL) capsule 25 mg 25 mg Oral Q6H PRN Pramod Salinas MD insulin lispro (humaLOG KWIKPEN) 100 units/mL injection (pen) 0-6 Units 0-6 Units Subc utaneous 4x Daily and Pramod Salinas MD 1 Units at 06/30/18 1204 insulin lispro (humaLOG KWIKPEN) 100 units/mL injection (pen) 15 Units 15 Units Subcut aneous TID Pramod Salinas MD 15 Units at 07/01/18 0835 isosorbide mononitrate (IMDUR) ER tablet 30 mg 30 mg Oral Daily Pramod Salinas MD 30 mg at 07/01/18 0828 metoprolol tartrate (LOPRESSOR) tablet 25 mg 25 mg Oral BID Pramod Salinas MD 25 mg at 07/01/18 0829 mirtazapine (REMERON) tablet 7.5 mg 7.5 mg Oral Daily after dinner Pramod Salinas MD 7.5 mg at 06/30/18 1718 polyethylene glycol (MIRALAX) powder 17 g 17 g Oral Daily PRN Pramod Salinas MD 17 g at 06/29/18 1753 venlafaxine (EFFEXOR XR) ER capsule 75 mg 75 mg Oral Daily with breakfast Pramod Salinas MD 75 mg at 07/01/18 0828 zolpidem (AMBIEN) tablet 5 mg 5 mg Oral Nightly PRN Pramod Salinas MD Allergies: Allergies Allergen Reactions Amoxicillin Not Noted Augmentin- throat swelling Chlorhexidine Itching Other reaction(s): VESICLES IN SKIN Ciprofloxacin Not Noted Other reaction(s): ACUTE INTERSTITIAL NEPHRITIS Simvastatin Rash,Itching Sulfa Antibiotics Not Noted Tigecycline Itching,Hives Cefazolin Itching,Hives Cephalexin Itching Niacin Not Noted Other reaction(s): FLUSHING Sulfamethoxazole-Trimethoprim Itching Acute interstitial nephritis Bee Venom Rash Tape (Adhesive & Tape) Not Noted Triamcinolone Rash Vancomycin Itching Intolerance No active intolerances/contraindications Family History: No family history on file. Functional Status: Current: FIM BladderScore: 1 FIM Bowel Score: 6 FIM Bed/Chair/Wheelchair Score: 4 FIM Toilet Transfer Score: 4 FIM Tub/Shower Transfer Score: 4 FIM Walk Score: 1 FIM Distance Walked(feet): 50 feet FIM Wheelchair Score: FIM Stairs Score :0 FIM Eating Score: 5 FIM Grooming Score: 5 FIM Bathing Score: 3 FIM Dressing Upper Body Score: 4 FIM Dressing Lower Body Score: 3 FIM Toileting Score: 2 DISCHARGE PHYSICAL EXAMINATION: VS: BP 173/87 | Pulse 82 | Temp 36 C (96.8 F) (Oral) | Resp 18 | Ht 1.88 m (6' 2.02 ") | Wt (!) 170.2 kg (375 lb 3.2 oz) | SpO2 95% | BMI 48.15 kg/m HEENT: Eyes clear. Oral mucosa moist. LYMPHATICS: No significant adenopathy noted in neck, axilla or groin. RESPIRATORY: Breathing comfortably, unlabored respirations. CARDIOVASCULAR: Regular rate and rhythm without audible murmur or rub noted. No edema. Pal pable peripheral pulses. GASTROINTESTINAL: Abdomen retreatment with large pannus. soft, non-tender, with active bow el sounds present. : Normal adult male. Silva catheter draining well. MUSCULOSKELETAL: Extremities symmetric with stable range of motion. NEUROLOGIC: Stable. LABORATORY: @LAB72@ Hospital Course: REASON FOR ADMISSION: Comprehensive medical inpatient rehabilitation program to treat problems with self-care and functional mobility secondary to and multiple comorbidities. Please see History & Physical for full details of history and status at time of admission. HOSPITAL COURSE: The patient was admitted to the inpatient rehabilitation service and participated in full p rogram. Vital Signs, including orthostatic blood pressure and pulse, and changes with exercise acti vity were closely monitored and discussed. Respiratory Therapy protocol was implemented. Bowel and bladder management program was begun. Appropriate nutrition was provided. Follow-up laboratory data was obtained regarding metabolic and hematologic issues. Pain management was effective with prescribed medications. Staff reinforced safety measures and awareness. The patient was also seen and followed closely for medical comorbidities. . Self care and function mobility are improved some. However, the patient decided that he was not able to tolerate nor agreed to participate in the full inpatient medical rehabilitation program. We held a family conference yesterday June 30 with the patient and his . She stated firmly that she could not adequately care for him to [facility] We therefore recommended discharge to an ECF to continue his skilled therapy treatments and a less intense level. The patient agrees with this. Does have dysphagia. We recommend a dysphagia diet with nectar thick liquids. He refuses the nectar thick liquids and demands thin liquids. He refuses to participate in the time void/bladder training program. He had high bladder residuals. This is why he has the Silva catheter. The patient will be discharged today To the [facility] in [facility] to continue with rehab services there. His goal is to reach a level that he can return home with his . Please see final Rehabilitation Team Conference Note for Functional Status of Discharge. Refer to Case Management Discharge Instructions regarding coordination of future rehabilita tion therapies and discharge equipment needs, as well as Medical follow-up appointments. IMPRESSION : 1. Principal rehabilitation impairment : Acute nondominant side left hemiparesis 2. Etiologic diagnosis : Acute right-sided ischemic infarction in the region of the rig ht insula 3. Dysphagia 4. Neurogenic bladder 5. Neurogenic bowel 6. Left-sided neglect and left-sided dyspraxia Associated comorbidities : 7. Diabetes mellitus, insulin-dependent, poorly controlled, with glycohemoglobin of 10.5, with complications with 8. Diabetic peripheral neuropathy 9. Morbid obesity 10. Mild cognitive impairment, with history of 3 previous left-sided CVAs, with CT eviden ce of left focal encephalomalacia in the posterior left frontal parietal junction, left temp oral lobe, and left insular cortex; superimposed on diffuse mild plus cerebral atrophy. 11. Chronic HIV disease, stable on medication currently 12. AK I, with elevated BUN of 35 and creatinine of 2.07, superimposed on chronic kidney disease, stage III 13. Hypertension 14. Atrial fibrillation 15. Chronic diastolic congestive heart failure 16. RACHELLE, on CPAP at night 17. Dyslipidemia 18. BPH 19 severe debility 20. Adjustment disorder, with anxiety and depression ; and noncompliance with our rehab t reatment program. 21. Psychosocial stressors DISCHARGE MEDICATIONS: Discharge Medications New Medications Details apixaban 5 mg tablet Take 1 tablet by mouth every 12 hours. aka: ELIQUIS atorvaSTATin 80 MG tablet Take 1 tablet by mouth Daily. aka: LIPITOR bacitracin 500 UNIT/GM ointment Apply to the open sore on the lateral right calf diphenhydrAMINE 50 mg capsule Take 1 capsule by mouth daily (after dinner). aka: BENADRYL insulin lispro 100 units/mL injection (pen) Inject 0-6 Units under the skin 4 times daily (with meals and nightly). aka: humaLOG KWIKPEN insulin lispro 100 units/mL injection (pen) Inject 15 Units under the skin 3 times daily (with meals). aka: humaLOG KWIKPEN metoprolol tartrate 25 mg tablet Take 1 tablet by mouth 2 times daily. aka: LOPRESSOR mirtazapine 7.5 MG tablet Take 2 tablets by mouth daily (after dinner). aka: REMERON Changed Medications Details HYDROcodone-acetaminophen 5-325 mg per tablet Take 1 tablet by mouth every 6 hours as needed for Pain. What changed: when to take this aka: NORCO isosorbide mononitrate 30 mg ER tablet Take 1 tablet by mouth Daily. What changed: medication strength aka: IMDUR Unchanged Medications Details ouptzfwq-lniqqcfwvpcz-wjcbCPHuyi 600-50-300 mg per tablet Take 1 tablet by mouth Daily. Indications: HIV Disease aka: TRIUMEQ allopurinol 100 mg tablet Take 100 mg by mouth Daily. aka: ZYLOPRIM finasteride 5 mg tablet Take 1 tablet by mouth Daily. aka: PROSCAR gabapentin 600 MG tablet Take 300 mg by mouth 2 times daily. aka: NEURONTIN Saw [place] 450 MG Caps Take 900 mg by mouth 2 times daily. Discontinued Medications APPLE CIDER VINEGAR PO artificial tears ophthalmic solution aka: REFRESH TEARS bumetanide 1 mg tablet aka: BUMEX Cholecalciferol 4000 units Caps aka: VITAMIN D-3 hydrOXYzine hydrochloride 25 mg tablet aka: ATARAX insulin aspart 100 units/mL injection pen aka: novoLOG FLEXPEN insulin glargine 100 units/mL injection (pen) aka: LANTUS SOLOSTAR lisinopril 5 mg tablet aka: PRINIVIL, ZESTRIL loperamide 2 mg capsule aka: IMODIUM metoprolol succinate 200 mg ER tablet aka: TOPROL-XL ONE-A-DAY PROACTIVE 65+ Tabs potassium chloride 10 MEQ ER tablet aka: KLOR-CON sertraline 50 mg tablet aka: ZOLOFT spironolactone 50 mg tablet aka: ALDACTONE warfarin 5 mg tablet aka: COUMADIN Current Discharge Medication List START taking these medications Medication Dose Last Dose Taken; apixaban (ELIQUIS) 5 mg tablet 5 mg [ ] Take 1 tablet by mouth every 12 hours. Qty: 60 tablet Refills: 1 Start date: 07/01/2018 atorvaSTATin (LIPITOR) 80 MG tablet 80 mg [ ] Take 1 tablet by mouth Daily. Qty: 30 tablet Refills: 1 Start date: 07/02/2018 bacitracin 500 UNIT/GM ointment [ ] Apply to the open sore on the lateral right calf Qty: 1 Application Refills: 1 Start date: 07/01/2018 diphenhydrAMINE (BENADRYL) 50 mg capsule 50 mg [ ] Take 1 capsule by mouth daily (after dinner). Qty: 30 capsule Refills: 1 Start date: 07/01/2018 finasteride (PROSCAR) 5 mg tablet 5 mg [ ] Take 1 tablet by mouth Daily. Qty: 30 tablet Refills: 1 Start date: 07/02/2018 HYDROcodone-acetaminophen (NORCO) 5-325 mg per tablet 1 tablet [ ] Take 1 tablet by mouth every 6 hours as needed for Pain. Qty: 50 tablet Refills: 0 Start date: 07/01/2018 !! insulin lispro (HUMALOG KWIKPEN) 100 units/mL injection (pen) 0-6 Units [ ] Inject 0-6 Units under the skin 4 times daily (with meals and nightly). Qty: 2 pen Refills: 1 Start date: 07/01/2018 !! insulin lispro (HUMALOG KWIKPEN) 100 units/mL injection (pen) 15 Units [ ] Inject 15 Units under the skin 3 times daily (with meals). Qty: 3 pen Refills: 1 Start date: 07/01/2018 isosorbide mononitrate (IMDUR) 30 mg ER tablet 30 mg [ ] Take 1 tablet by mouth Daily. Qty: 30 tablet Refills: 1 Start date: 07/02/2018 metoprolol tartrate (LOPRESSOR) 25 mg tablet 25 mg [ ] Take 1 tablet by mouth 2 times daily. Qty: 60 tablet Refills: 1 Start date: 07/01/2018 mirtazapine (REMERON) 7.5 MG tablet 15 mg [ ] Take 2 tablets by mouth daily (after dinner). Qty: 30 tablet Refills: 1 Start date: 07/01/2018 !! Potential duplicate medications found. Please discuss with provider. CONTINUE these medications which have NOT CHANGED Medication Dose Last Dose Taken; pfsvggnz-ieeapqjyuvug-xcfiVUUklc (TRIUMEQ) 600-50-300 mg per tablet 1 tablet [ ] Take 1 tablet by mouth Daily. Indications: HIV Disease allopurinol (ZYLOPRIM) 100 mg tablet 100 mg [ ] Take 100 mg by mouth Daily. gabapentin (NEURONTIN) 600 MG tablet 300 mg [ ] Take 300 mg by mouth 2 times daily. [place] 450 MG CAPS 900 mg [ ] Take 900 mg by mouth 2 times daily. DISPOSITION: SNF FOLLOW UP: -PCP: 1-2 weeks after d/c fromECF:Jericho Cao MD - DISCHARGE INSTRUCTIONS: See above I spent 34 minutes on date of discharge with unit/floor time including face to face with th e patient, with over 50% spent in counseling and/or coordination of care regarding discharge meds, and addressing home program, f/u appointments, setting up d/c therapies, arranging fo r equipment. Signed: Pramod Salinas MD 07/01/2018 11:07 CC:Primary Care Physician:Jericho Cao MD Portions of this chart may have been created with [employer]ft voice recognition software. Occasi onal wrong-word or sound-alike substitutions may have occurred due to the inherent gupta itations of voice recognition software. Please read the chart carefully and recognize, using context, where these substitutions have occurred documented in this encounter Medications at Time of Discharge + + + +---------+ + + | Medication | Sig | Dispensed | Refills | Start | End Date | | | | | | Date | | + + + +---------+ + + | | Take 1 tablet by | | 0 | | | | abacavir-dolutegravi | mouth Daily. | | | | | | r-lamiVUDine | Indications: HIV | | | | | | (TRIUMEQ) 600-50-300 | Disease | | | | | | mg per | | | | | | | tabletIndications: | | | | | | | Human | | | | | | | Immunodeficiency | | | | | | | Virus Disease | | | | | | + + + +---------+ + + | allopurinol | Take 100 mg by mouth | | 0 | | | | (ZYLOPRIM) 100 mg | Daily. | | | | | | tablet | | | | | | + + + +---------+ + + | apixaban (ELIQUIS) | Take 1 tablet by | 60 | 1 | //20 | | | 5 mg tablet | mouth every 12 | tablet | | 18 | | | | hours. | | | | | + + + +---------+ + + | atorvaSTATin | Take 1 tablet by | 30 | 1 | 07/02/20 | | | (LIPITOR) 80 MG | mouth Daily. | tablet | | 18 | | | tablet | | | | | | + + + +---------+ + + | bacitracin 500 | Apply to the open | 1 | 1 | 07/01/20 | | | UNIT/GM ointment | sore on the lateral | Applicati | | 18 | | | | right calf | on | | | | + + + +---------+ + + | diphenhydrAMINE | Take 1 capsule by | 30 | 1 | 07/01/20 | | | (BENADRYL) 50 mg | mouth daily (after | capsule | | 18 | | | capsule | dinner). | | | | | + + + +---------+ + + | finasteride | Take 1 tablet by | 30 | 1 | 07/02/20 | | | (PROSCAR) 5 mg | mouth Daily. | tablet | | 18 | | | tablet | | | | | | + + + +---------+ + + | gabapentin | Take 300 mg by mouth | | 0 | | | | (NEURONTIN) 600 MG | 2 times daily. | | | | | | tablet | | | | | | + + + +---------+ + + | | Take 1 tablet by | 50 | 0 | 07/01/20 | | | HYDROcodone-acetamin | mouth every 6 hours | tablet | | 18 | | | ophen (NORCO) 5-325 | as needed for Pain. | | | | | | mg per tablet | | | | | | + + + +---------+ + + | insulin lispro | Inject 0-6 Units | 2 pen | 1 | 07/01/20 | | | (HUMALOG KWIKPEN) | under the skin 4 | | | 18 | | | 100 units/mL | times daily (with | | | | | | injection (pen) | meals and nightly). | | | | | + + + +---------+ + + | insulin lispro | Inject 15 Units | 3 pen | 1 | 07/01/20 | | | (HUMALOG KWIKPEN) | under the skin 3 | | | 18 | | | 100 units/mL | times daily (with | | | | | | injection (pen) | meals). | | | | | + + + +---------+ + + | isosorbide | Take 1 tablet by | 30 | 1 | 07/02/20 | | | mononitrate (IMDUR) | mouth Daily. | tablet | | 18 | | | 30 mg ER tablet | | | | | | + + + +---------+ + + | metoprolol | Take 1 tablet by | 60 | 1 | 07/01/20 | | | tartrate (LOPRESSOR) | mouth 2 times daily. | tablet | | 18 | | | 25 mg tablet | | | | | | + + + +---------+ + + | mirtazapine | Take 2 tablets by | 30 | 1 | 07/01/20 | | | (REMERON) 7.5 MG | mouth daily (after | tablet | | 18 | | | tablet | dinner). | | | | | + + + +---------+ + + | [place] 450 | Take 900 mg by mouth | | 0 | | | | MG CAPS | 2 times daily. | | | | | + + + +---------+ + + documented as of this encounter Progress Notes Pramod Salinas MD - 06/30/2018 3:37 PM PDT [id number] Daily Progress Note Date: 06/30/18 ID/CC: Reason for encounter : Physician follow-up to address the medical rehabilitation needs, issues, and problems . These include serving as the patient's attending physician while on our inpatient acute r ehabilitation service . I am responsible for managing and treating her active medical diagnoses as documented in the Rehabilitation History and Physical Impressions and Progress Notes . Also I am responsible for leading and directing our Interdisciplinary Rehabilitation treatm ent Team members' efforts including management of problems with function including safety wi th self-care/activities of daily living as well as safely negotiating the environment/functi onal mobility. Interval history: The problems with the patient's compliance with treatment persist. Chief problem : Weakness and difficulty with self-care/ADLs and functional mobility No new complaints. No complaints of pain at present. He states he is comfortable at rest. Problem List Patient Active Problem List Diagnosis Ischemic cerebrovascular accident (CVA) IDDM (insulin dependent diabetes mellitus) HTN (hypertension) CKD (chronic kidney disease) HIV (human immunodeficiency virus infection) Acute left hemiparesis Dysphagia due to recent cerebral infarction Neurogenic bladder Morbid obesity Diabetic peripheral neuropathy RACHELLE treated with BiPAP Mild cognitive impairment Current Meds: Current Facility-Administered Medications: wlsidyfz-bqtmnftckksa-coumVKAzpv (TRIUMEQ) 600-50-300 mg per tablet 1 tablet (POM), 1 tablet, Oral, Nightly, Pramod Salinas MD, 1 tablet at 06/29/182010 apixaban (ELIQUIS) tablet 5 mg, 5 mg, Oral, Q12H, Pramod Salinas MD, 5 mg at 06/30 06 atorvaSTATin (LIPITOR) tablet 80 mg, 80 mg, Oral, Daily, Pramod Salinas MD, 80 mg at 06/30/18 09 bacitracin topical ointment, , Topical, BID, Pramod Salinas MD, 1 Application at 1 1148 Hypoglycemia Management, , , Until Discontinued AND POCT Glucose, , , PRN AND dextrose 50% injection 12.5 g, 12.5 g, Intravenous, PRN, Pramod Salinas MD diphenhydrAMINE (BENADRYL) capsule 50 mg, 50 mg, Oral, Daily after dinner, Pramod Salinas MD, 50 mg at 06/29/18 175 finasteride (PROSCAR) tablet 5 mg, 5 mg, Oral, Daily, Pramod Salinas MD, 5 mg at 1 0906 HYDROcodone-acetaminophen (NORCO) 5-325 mg per tablet 1-2 tablet, 1-2 tablet, Oral, Q4 H PRN, Pramod Salinas MD, 2 tablet at 06/30/18 0928 hydrOXYzine pamoate (VISTARIL) capsule 25 mg, 25 mg, Oral, Q6H PRN, Pramod Salinas MD insulin lispro (humaLOG KWIKPEN) 100 units/mL injection (pen) 0-6 Units, 0-6 Units, [place] bcutaneous, 4x Daily WC and HS, Pramod Salinas MD, 1 Units at 06/30/18 1204 insulin lispro (humaLOG KWIKPEN) 100 units/mL injection (pen) 15 Units, 15 Units, Subc utaneous, TID WC, Pramod Salinas MD, 15 Units at 06/30/18 1204 isosorbide mononitrate (IMDUR) ER tablet 30 mg, 30 mg, Oral, Daily, Pramod Salinas MD, 30 mg at 06/30/18 0905 metoprolol tartrate (LOPRESSOR) tablet 25 mg, 25 mg, Oral, BID, Pramod Salinas MD, 25 mg at 06/30/18 0906 mirtazapine (REMERON) tablet 7.5 mg, 7.5 mg, Oral, Daily after dinner, Pramod hancock MD, 7.5 mg at 06/29/18 184 polyethylene glycol (MIRALAX) powder 17 g, 17 g, Oral, Daily PRN, Neetu Pfeiffer D, 17 g at 06/29/18 1753 [START ON 07/01/2018] venlafaxine (EFFEXOR XR) ER capsule 75 mg, 75 mg, Oral, Daily wi th breakfast, Pramod Salinas MD zolpidem (AMBIEN) tablet 5 mg, 5 mg, Oral, Nightly PRN, Pramod Salinas MD Allergies: Allergies Allergen Reactions Amoxicillin Not Noted Augmentin- throat swelling Chlorhexidine Itching Other reaction(s): VESICLES IN SKIN Ciprofloxacin Not Noted Other reaction(s): ACUTE INTERSTITIAL NEPHRITIS Simvastatin Rash,Itching Sulfa Antibiotics Not Noted Tigecycline Itching,Hives Cefazolin Itching,Hives Cephalexin Itching Niacin Not Noted Other reaction(s): FLUSHING Sulfamethoxazole-Trimethoprim Itching Acute interstitial nephritis Bee Venom Rash Tape (Adhesive & Tape) Not Noted Triamcinolone Rash Vancomycin Itching Intolerance No active intolerances/contraindications Physical Exam: BP 160/82 | Pulse 71 | Temp 36.5 C (97.7 F) (Oral) | Resp 16 | Ht 1.88 m (6' 2.02") | Wt (!) 170.2 kg (375 lb 3.2 oz) | SpO2 95% | BMI 48.15 kg/m Gen: Alert, sitting in bed, NAD EYES: Conjunctiva clear. Pupils react to light. ENMT: External nose and ears normal. Mucosa moist in nose and mouth. NECK: No abnormal masses noted. Trachea midline. No thyromegaly. LYMPTHATIC: No significant adenopathy noted in neck, axillae or groin. RESPIRATORY: Normal comfortable respiratory effort. Lungs are distant, but clear. CARDIOVASCULAR: No abnormal thrill or palpitation. Regular rate and rhythm.Peripheral pulses are symmetric. GASTROINTESTINAL: Soft, protuberant, obese. No abnormal masses noted. No organomegaly meredith reciated. Abdomen soft. Bowel sounds present. The catheter draining well. MUSCULOSKELETAL: Range of motion stable. No new areas of increased tenderness noted. NEUROLOGIC: The patient is alert. The strength and mobility are stable. Labs: Recent Results (from the past 48 hour(s)) POC Glucose Result Value Ref Range Glucose, POC 127 (H) 70 - 109 mg/dL POC Glucose Result Value Ref Range Glucose, POC 194 (H) 70 - 109 mg/dL POC Glucose Result Value Ref Range Glucose, POC 143 (H) 70 - 109 mg/dL POC Glucose Result Value Ref Range Glucose, POC 140 (H) 70 - 109 mg/dL POC Glucose Result Value Ref Range Glucose, POC 126 (H) 70 - 109 mg/dL POC Glucose Result Value Ref Range Glucose, POC 174 (H) 70 - 109 mg/dL POC Glucose Result Value Ref Range Glucose, POC 121 (H) 70 - 109 mg/dL POC Glucose Result Value Ref Range Glucose, POC 154 (H) 70 - 109 mg/dL Most recent FIM scores: Report Date 06/30/2018 FIM BladderScore: 1 FIM Bowel Score: 6 FIM Bed/Chair/Wheelchair Score: 3 FIM Toilet Transfer Score: 4 FIM Tub/Shower Transfer Score: 4 FIM Walk Score: 1 FIM Distance Walked(feet): 57 feet FIM Wheelchair Score: FIM Stairs Score :0 FIM Eating Score: 5 FIM Grooming Score: 5 FIM Bathing Score: 3 FIM Dressing Upper Body Score: 4 FIM Dressing Lower Body Score: 3 FIM Toileting Score: 2 Assessment and Rehab Plan: . The patient is benefiting from inpatient rehabilitation : Physiatric and nursing interv ention; physical therapy, occupational therapy, speech therapy, case management, and social media assistant #Rehab - -Continue PT for gait, mobility -Continue OT for ADL's, toileting, adaptive equipment -Continue FOOT CASTER for cognition, swallow -Continue SW for discharge planning IMPRESSION : 1. Principal rehabilitation impairment : Acute nondominant side left hemiparesis 2. Etiologic diagnosis : Acute right-sided ischemic infarction in the region of the right insula 3. Dysphagia 4. Neurogenic bladder 5. Neurogenic bowel 6. Left-sided neglect and left-sided dyspraxia Associated comorbidities : 7. Diabetes mellitus, insulin-dependent, poorly controlled, with glycohemoglobin of 10.5, with complications with 8. Diabetic peripheral neuropathy 9. Morbid obesity 10. Mild cognitive impairment, with history of 3 previous left-sided CVAs, with CT evidenc e of left focal encephalomalacia in the posterior left frontal parietal junction, left tempo ral lobe, and left insular cortex; superimposed on diffuse mild plus cerebral atrophy. 11. Chronic HIV disease, stable on medication currently 12. AK I, with elevated BUN of 35 and creatinine of 2.07, superimposed on chronic kidney d isease, stage III 13. Hypertension 14. Atrial fibrillation 15. Chronic diastolic congestive heart failure 16. RACHELLE, on CPAP at night 17. Dyslipidemia 18. BPH 19 severe debility 20. Adjustment disorder, with anxiety and depression 21. Psychosocial stressors #/GI - Increased risk of incontinence or constipation/ voiding problems -continue current bladder and bowel regimen #DVT Prevention: Mobility, edema control, TEDS, Lovenox #Diet - Active Orders Diet Diet consistent carb; dysphagia advanced; thin liquids allowed; Effective Now PLAN : Reviewed current laboratory results. Reviewed recent diagnostic studies. Reviewed current medications. I met with the patient's nurse. We discussed and reviewed the above, as well as related clinical issues. Reviewed current rehabilitation therapy treatment documentation, noting the patient's st atus and tolerance. Rehabilitation therapy staff is continuing to coordinate and collaborate with the [facility] nursing staff to complement their therapy treatment focus, especially considering safety factors, as the patient is mobilized on the nursing unit. The patient is seen in collaboration with the rehab team. I met with the charge nurse fran navaing overall nursing care concerns. We also met with the patient and his , as well as our bilingual patient support caseworker, patient's bedside nurse, reviewing the patient's current status and addressing any questions, concerns and/or related issues. The patient did not present in the specific concerns about care issues with staff. I discussed again with him our concern about his refusal to comply with a dysphagia diet, s pecifically neck thick liquids. Expressed understanding and again refused. I also expressed my concern about his noncompliance and refusal to comply and cooperate wit h the rehab therapy treatments. The patient's encouraged him to participate better. Also the patient's adamantly states she cannot care for him at home and will not take him back to her home at this point given his care needs. I shared this information directly and clearly with the patient. He Expressed understandi ng. I told him we are pursuing ECF placement. He stated he understood and agrees. Note: my Progress Notes document close and ongoing Physiatric involvement; [id number] vis its , professionally assessing the Patient, both Medically and Functionally, with the empha sis on the important interactions between our Patient's current clinical status, especially issues/barriers that may impact on the Rehabilitation Team's treatment and progress toward o ur medical and functional goals. Respiratory therapy following 02 weaning with activity as tolerated. Hypertension/Hypotension, BP pattern being followed with activity. Continue to monitor BP to rule out any orthostatic problem. We'll pursue ECF placement Total time: 38 minutes. I spent greater than 50% of the time regarding patient care and co ordination of the Medical Rehabilitation Team treatment focus addressing these patient care needs on this date, including nursing unit/floor time, as well as time communicating with [facility] patient and treatment team as discussed above. Signed: Pramod Salinas MD Portions of this chart may have been created with [employer] voice recognition software. Occasi onal wrong-word or sound-alike substitutions may have occurred due to the inherent gupta itations of voice recognition software. Please read the chart carefully and recognize, using context, where these substitutions have occurred. ill, Pramod Tobar MD - 06/29/2018 4:33 PM PDT [id number] Daily Progress Note Date: 06/29/18 ID/CC: Reason for encounter : Physician follow-up to address the medical rehabilitation needs, issues, and problems . These include serving as the patient's attending physician while on our inpatient acute r ehabilitation service . I am responsible for managing and treating her active medical diagnoses as documented in the Rehabilitation History and Physical Impressions and Progress Notes . Also I am responsible for leading and directing our Interdisciplinary Rehabilitation treatm ent Team members' efforts including management of problems with function including safety wi th self-care/activities of daily living as well as safely negotiating the environment/functi onal mobility. Interval history: I ordered a modified barium swallow evaluation to further assess the dysphagia. Unfortunat mohsen it did indeed demonstrate the aspiration on thin liquids which we have demonstrated clin etta. Again expressed my concern to the patient. Again refused to comply with dysphagia diet. Chief problem : Weakness and difficulty with self-care/ADLs and functional mobility Is complaining of some itching at the base of his penis. No other new complaints. No Dysuria no discharge. Problem List Patient Active Problem List Diagnosis Ischemic cerebrovascular accident (CVA) IDDM (insulin dependent diabetes mellitus) HTN (hypertension) CKD (chronic kidney disease) HIV (human immunodeficiency virus infection) Acute left hemiparesis Dysphagia due to recent cerebral infarction Neurogenic bladder Morbid obesity Diabetic peripheral neuropathy RACHELLE treated with BiPAP Mild cognitive impairment Current Meds: Current Facility-Administered Medications: vggmikce-sjszgccahuzd-muvkZTWuha (TRIUMEQ) 600-50-300 mg per tablet 1 tablet (POM), 1 tablet, Oral, Nightly, Pramod Salinas MD, 1 tablet at 06/28/18 2110 apixaban (ELIQUIS) tablet 5 mg, 5 mg, Oral, Q12H, Pramod Salinas MD, 5 mg at 06/29 0640 atorvaSTATin (LIPITOR) tablet 80 mg, 80 mg, Oral, Daily, Pramod Salinas MD, 80 mg at 06/29/18 0829 barium (E-Z-PASTE) 60% esophageal cream 1 Application, 1 Application, Oral, Once PRN, Pramod Salinas MD, 1 Application at 06/29/18 0926 Hypoglycemia Management, , , Until Discontinued AND POCT Glucose, , , PRN AND dextrose 50% injection 12.5 g, 12.5 g, Intravenous, PRN, Pramod Salinas MD diphenhydrAMINE (BENADRYL) capsule 50 mg, 50 mg, Oral, Daily after dinner, Pramod Salinas MD finasteride (PROSCAR) tablet 5 mg, 5 mg, Oral, Daily, Pramod Salinas MD, 5 mg at 1 828 HYDROcodone-acetaminophen (NORCO) 5-325 mg per tablet 1-2 tablet, 1-2 tablet, Oral, Q4 H PRN, Pramod Salinas MD, 2 tablet at 06/28/182119 hydrOXYzine pamoate (VISTARIL) capsule 25 mg, 25 mg, Oral, Q6H PRN, Pramod Salinas MD influenza quadrivalent (FLUZONE, FLUARIX, AFLURIA QUADRIVALENT) vaccine injection (syr shelley) 0.5 mL, 0.5 mL, Intramuscular, One Time Vaccine, Pramod Salinas MD insulin lispro (humaLOG KWIKPEN) 100 units/mL injection (pen) 0-6 Units, 0-6 Units, [place] bcutaneous, 4x Daily WC and HS, Pramod Salinas MD, 1 Units at 06/26/18 1207 insulin lispro (humaLOG KWIKPEN) 100 units/mL injection (pen) 15 Units, 15 Units, Subc utaneous, TID WC, Pramod Salinas MD, 15 Units at 06/29/18 1217 isosorbide mononitrate (IMDUR) ER tablet 30 mg, 30 mg, Oral, Daily, Pramod Salinas MD, 30 mg at 06/29/18828 metoprolol tartrate (LOPRESSOR) tablet 25 mg, 25 mg, Oral, BID, Pramod Salinas MD, 25 mg at 06/29/18 08 mirtazapine (REMERON) tablet 7.5 mg, 7.5 mg, Oral, Daily after dinner, Pramod hancock MD polyethylene glycol (MIRALAX) powder 17 g, 17 g, Oral, Daily PRN, Neetu Pfeiffer venlafaxine (EFFEXOR XR) ER capsule 37.5 mg, 37.5 mg, Oral, Daily with breakfast, Junior Salinas MD, 37.5 mg at 06/29/18 08 zolpidem (AMBIEN) tablet 5 mg, 5 mg, Oral, Nightly PRN, Pramod Salinas MD Allergies: Allergies Allergen Reactions Amoxicillin Not Noted Augmentin- throat swelling Chlorhexidine Itching Other reaction(s): VESICLES IN SKIN Ciprofloxacin Not Noted Other reaction(s): ACUTE INTERSTITIAL NEPHRITIS Simvastatin Rash,Itching Sulfa Antibiotics Not Noted Tigecycline Itching,Hives Cefazolin Itching,Hives Cephalexin Itching Niacin Not Noted Other reaction(s): FLUSHING Sulfamethoxazole-Trimethoprim Itching Acute interstitial nephritis Bee Venom Rash Tape (Adhesive & Tape) Not Noted Triamcinolone Rash Vancomycin Itching Intolerance No active intolerances/contraindications Physical Exam: BP 145/74 | Pulse 59 | Temp 36.1 C (97 F) (Oral) | Resp 18 | Ht 1.88 m (6' 2.02") | Wt (!) 170.2 kg (375 lb 3.2 oz) | SpO2 98% | BMI 48.15 kg/m Gen: Alert, sitting in bed, NAD ENT: Sclerae clear. Oral mucosa moist. NECK: Supple. Trachea midline. No thyromegaly. RESPIRATORY: Lungs are clear to auscultation and percussion bilaterally with symmetrical a ir movement. The patient is breathing comfortably. CARDIOVASCULAR: Cardiac rhythmis regular. No murmur. Peripheral pulses stable. GASTROINTENSTINAL: Abdomen soft and nontender. Bowel sounds present. GENITOURINARY: Genital normal adult male. No abnormal lesions noted. Silva catheter drain ing well. rectal exam not performed. Bowel and bladder management program discussed again with the patient. MUSCULOSKELETAL: Extremities stable. Range of motion is stable. NEUROLOGIC: Finds the patient awake, alert and Follows commands. Strength and mobility are stable. Labs: Recent Results (from the past 48 hour(s)) POC Glucose Result Value Ref Range Glucose, POC 116 (H) 70 - 109 mg/dL POC Glucose Result Value Ref Range Glucose, POC 136 (H) 70 - 109 mg/dL Basic Metabolic Panel Result Value Ref Range NA 136 136 - 149 mmol/L K 3.9 3.5 - 5.1 mmol/L CL 105 98 - 109 mmol/L CO2 24 24 - 31 mmol/L ANION GAP 7 3 - 16 mmol/L GLUCOSE 141 (H) 70 - 109 mg/dL BUN 35 (H) 7 - 18 mg/dL Creatinine, Serum/Plasma 1.96 (H) 0.60 - 1.30 mg/dL eGFR if not 34 (L) >=60 mL/min/1.73m2 CALCIUM 9.1 8.3 - 10.5 mg/dL BUN/CREA 17.9 CBC with Differential Result Value Ref Range WBC 9.9 4.0 - 11.0 K/uL RBC 5.40 4.30 - 5.70 M/uL Hgb 16.2 13.5 - 18.0 g/dL Hct 49.1 40.0 - 51.0 % MCV 90.9 83.0 - 101.0 fL MCH 30.0 28.0 - 35.0 pg MCHC 33.0 32.0 - 36.0 g/dL RDW-CV 16.3 (H) <15.0 % RDW-SD 53.9 (H) 35.1 - 46.3 fL Platelet Count 319 140 - 440 K/uL MPV 11.7 6.5 - 12.4 fL % Neutrophils 47.2 45.0 - 82.0 % % Lymphocytes 37.4 20.0 - 45.0 % % Monocytes 10.0 4.0 - 12.0 % % Eosinophils 3.6 0.0 - 5.0 % % Basophils 0.9 0.0 - 1.0 % % Immature granulocytes 0.9 (H) 0.0 - 0.4 % Absolute Neutrophils 4.66 1.80 - 8.50 K/uL Absolute Lymphocytes 3.70 (H) 0.60 - 3.20 K/uL Absolute Monocytes 0.99 0.00 - 1.00 K/uL Absolute Eosinophils 0.36 0.00 - 0.40 K/uL Absolute Basophils 0.09 0.00 - 0.10 K/uL Absolute Imm. Granulocytes 0.09 (H) 0.00 - 0.03 K/uL nRBC 0 0 - 2 per 100 WBC's NRBC ABS 0.00 0.00 - 0.01 K/uL POC Glucose Result Value Ref Range Glucose, POC 126 (H) 70 - 109 mg/dL POC Glucose Result Value Ref Range Glucose, POC 127 (H) 70 - 109 mg/dL POC Glucose Result Value Ref Range Glucose, POC 194 (H) 70 - 109 mg/dL POC Glucose Result Value Ref Range Glucose, POC 143 (H) 70 - 109 mg/dL POC Glucose Result Value Ref Range Glucose, POC 140 (H) 70 - 109 mg/dL Most recent FIM scores: Report Date 06/29/2018 FIM BladderScore: 1 FIM Bowel Score: 6 FIM Bed/Chair/Wheelchair Score: 1 FIM Toilet Transfer Score: 1 FIM Tub/Shower Transfer Score: 4 FIM Walk Score: 1 FIM Distance Walked(feet): 57 feet FIM Wheelchair Score: FIM Stairs Score :0 FIM Eating Score: 5 FIM Grooming Score: 5 FIM Bathing Score: 2 FIM Dressing Upper Body Score: 4 FIM Dressing Lower Body Score: 3 FIM Toileting Score: 1 Assessment and Rehab Plan: . The patient is benefiting from inpatient rehabilitation : Physiatric and nursing interv ention; physical therapy, occupational therapy, speech therapy, case management, and social media assistant #Rehab - -Continue PT for gait, mobility -Continue OT for ADL's, toileting, adaptive equipment -Continue FOOT CASTER for cognition, swallow -Continue SW for discharge planning IMPRESSION : 1. Principal rehabilitation impairment : Acute nondominant side left hemiparesis 2. Etiologic diagnosis : Acute right-sided ischemic infarction in the region of the right insula 3. Dysphagia 4. Neurogenic bladder 5. Neurogenic bowel 6. Left-sided neglect and left-sided dyspraxia Associated comorbidities : 7. Diabetes mellitus, insulin-dependent, poorly controlled, with glycohemoglobin of 10.5, with complications with 8. Diabetic peripheral neuropathy 9. Morbid obesity 10. Mild cognitive impairment, with history of 3 previous left-sided CVAs, with CT evidenc e of left focal encephalomalacia in the posterior left frontal parietal junction, left tempo ral lobe, and left insular cortex; superimposed on diffuse mild plus cerebral atrophy. 11. Chronic HIV disease, stable on medication currently 12. AK I, with elevated BUN of 35 and creatinine of 2.07, superimposed on chronic kidney d isease, stage III 13. Hypertension 14. Atrial fibrillation 15. Chronic diastolic congestive heart failure 16. RACHELLE, on CPAP at night 17. Dyslipidemia 18. BPH 19 severe debility 20. Adjustment disorder, with anxiety and depression 21. Psychosocial stressors #/GI - Increased risk of incontinence or constipation/ voiding problems -continue current bladder and bowel regimen #DVT Prevention: Mobility, edema control, TEDS, Lovenox #Diet - Active Orders Diet Diet consistent carb; dysphagia advanced; nectar thick; Effective Now PLAN : We are following up on yesterday's rehabilitation team conference. The patient's current R ehabilitation Team treatment focus and recommendations were discussed with the patient. An overview of our current progress toward goals, and active Comprehensive Inpatient Medica l Rehabilitation treatment plan was provided to the patient. Each trampoline team coach is addressing this as the patient advances within the short-term rehabilitation treatment plan. The patient is seen and clinical status addressed in collaboration with the rehab team. I met with the charge nurse and discussed the overall nursing problematic issues. I reviewed all of the medication, as possible source of his complaints of itching. On furt her discussion with staff besides itching at the base of his penis, at times is complained o f itching on his shoulders and related shoulder girdles. I also discussed medication with the pharmacist. As a precaution when discontinuing the Neurontin and the Zyloprim as these could be culprit s. We'll offer Vistaril 25 mg 4 times a day when necessary itching. Ordered to increase the Benadryl up to 50 mg in the evening is reportedly this bothers her more than and hopefully will help the sleep. For his behavior issues we have started him on Effexor XR in the morning. I will add in Re edith 7.5 mg in the evening, as we need to get a rapid response to the above-mentioned a beh avioral and related psychological issues/concerns if we are going to be able to proceed. The patient's chart was reviewed regarding interval medical history, noting orders and rece nt events. Laboratory data was reviewed. BUN and creatinine have increased some 35 and 1.96 respectively. I suspect is related to f luid intake related to the dysphagia. As best we can we are pushing fluids. We are trying to avoid IVs. I met with our patient's nurse and was updated regarding current and recent clinical issues and events. We addressed nursing questions and concerns, including continence, skin issues , and pain complaints. Safety with mobility was discussed. I discussed again the concern over safety with transf ers. We are trying slide board transfers. I met with the patient's bilingual patient support caseworker and reviewed the current rehabilitation plan of care and discussed projected discharge destination. She is collaborating with the patient's support system to solicit their input as we advanc e the program. We are scheduling a Seprafilm in conference with patient and his . The patient was seen and evaluated on rounds. We addressed the current treatment focus of the rehabilitation program with the patient. I am coordinating with our Medical Rehabilitation Team considering and addressing the multi ple medical co-morbidities. Our patient is medically cleared to continue full program. Active medical problem list: Noted and reviewed Continue to address these medical issues and concerns. I will continue to lead, direct, and coordinate overall plan of care with full team. Reinfo rce safety measures and awareness. See orders. Total time: 37 minutes. I spent greater than 50% of the time regarding patient care and co ordination of the Medical Rehabilitation Team treatment focus addressing these patient care needs on this date, including nursing unit/floor time, as well as time communicating with e patient and treatment team as discussed above. Signed: Pramod Salinas MD Portions of this chart may have been created with [employer] voice recognition software. Occasi onal wrong-word or sound-alike substitutions may have occurred due to the inherent gupta itations of voice recognition software. Please read the chart carefully and recognize, using context, where these substitutions have occurred. ill, Pramod Tobar MD - 06/28/2018 4:46 PM PDT [id number] Daily Progress Note Date: 06/28/18 ID/CC: Reason for encounter : Physician follow-up to address the medical rehabilitation needs, issues, and problems . These include serving as the patient's attending physician while on our inpatient acute r ehabilitation service . I am responsible for managing and treating her active medical diagnoses as documented in the Rehabilitation History and Physical Impressions and Progress Notes . Also I am responsible for leading and directing our Interdisciplinary Rehabilitation treatm ent Team members' efforts including management of problems with function including safety wi th self-care/activities of daily living as well as safely negotiating the environment/functi onal mobility. Interval history: Nursing reports patient has been resistant to the bowel program. He has been incontinent stool in bed. Also he is refusing to comply with the nectar thick liquid component of his dysphagia diet. He demands to drink thin liquids. We've observed him to be coughing. I met with him again and counseled him about our concern. He states he understands was sti ll refuses. We therefore will reluctantly honor his wish and follow him closely. Chief problem : Weakness and difficulty with self-care/ADLs and functional mobility He states he slept better last night. Also reports his left arm pain is improved. Problem List Patient Active Problem List Diagnosis Ischemic cerebrovascular accident (CVA) IDDM (insulin dependent diabetes mellitus) HTN (hypertension) CKD (chronic kidney disease) HIV (human immunodeficiency virus infection) Acute left hemiparesis Dysphagia due to recent cerebral infarction Neurogenic bladder Morbid obesity Diabetic peripheral neuropathy RACHELLE treated with BiPAP Mild cognitive impairment Current Meds: Current Facility-Administered Medications: meklppiw-ximacbwspzav-nmkqGODile (TRIUMEQ) 600-50-300 mg per tablet 1 tablet (POM), 1 tablet, Oral, Nightly, Pramod Salinas MD, 1 tablet at 06/27/182051 allopurinol (ZYLOPRIM) tablet 100 mg, 100 mg, Oral, Daily, Pramod Salinas MD, 100 mg at 06/28/18 08 apixaban (ELIQUIS) tablet 5 mg, 5 mg, Oral, Q12H, Pramod Salinas MD, 5 mg at 06/28 06 atorvaSTATin (LIPITOR) tablet 80 mg, 80 mg, Oral, Daily, Pramod Salinas MD, 80 mg at 06/28/18 08 Hypoglycemia Management, , , Until Discontinued AND POCT Glucose, , , PRN AND dextrose 50% injection 12.5 g, 12.5 g, Intravenous, PRN, Pramod Salinas MD diphenhydrAMINE (BENADRYL) tablet 25 mg, 25 mg, Oral, Q6H PRN, Sabino Sow MD, 25 mg at 06/25/18 1805 finasteride (PROSCAR) tablet 5 mg, 5 mg, Oral, Daily, Pramod Salinas MD, 5 mg at 1 08 gabapentin (NEURONTIN) capsule 300 mg, 300 mg, Oral, BID, Pramod Salinas MD, 300 m g at 06/28/18 0838 HYDROcodone-acetaminophen (NORCO) 5-325 mg per tablet 1-2 tablet, 1-2 tablet, Oral, Q4 H PRN, Pramod Salinas MD, 2 tablet at 06/28/18 0433 [START ON 06/29/2018] influenza quadrivalent (FLUZONE, FLUARIX, AFLURIA QUADRIVALENT) vaccine injection (syringe) 0.5 mL, 0.5 mL, Intramuscular, One Time Vaccine, Pramod hancock MD insulin lispro (humaLOG KWIKPEN) 100 units/mL injection (pen) 0-6 Units, 0-6 Units, Garber bcutaneous, 4x Daily WC and HS, Pramod Salinas MD, 1 Units at 06/26/18 1207 insulin lispro (humaLOG KWIKPEN) 100 units/mL injection (pen) 15 Units, 15 Units, Subc utaneous, TID WC, Pramod Salinas MD, 15 Units at 06/28/18 1239 isosorbide mononitrate (IMDUR) ER tablet 30 mg, 30 mg, Oral, Daily, Pramod Salinas MD, 30 mg at 06/28/18 0839 metoprolol tartrate (LOPRESSOR) tablet 25 mg, 25 mg, Oral, BID, Pramod Salinas MD, 25 mg at 06/28/18 0839 [START ON 06/29/2018] venlafaxine (EFFEXOR XR) ER capsule 37.5 mg, 37.5 mg, Oral, Brown y with breakfast, Pramod Salinas MD zolpidem (AMBIEN) tablet 5 mg, 5 mg, Oral, Nightly PRN, Pramod Salinas MD Allergies: Allergies Allergen Reactions Amoxicillin Not Noted Augmentin- throat swelling Chlorhexidine Itching Other reaction(s): VESICLES IN SKIN Ciprofloxacin Not Noted Other reaction(s): ACUTE INTERSTITIAL NEPHRITIS Simvastatin Rash,Itching Sulfa Antibiotics Not Noted Tigecycline Itching,Hives Cefazolin Itching,Hives Cephalexin Itching Niacin Not Noted Other reaction(s): FLUSHING Sulfamethoxazole-Trimethoprim Itching Acute interstitial nephritis Bee Venom Rash Tape (Adhesive & Tape) Not Noted Triamcinolone Rash Vancomycin Itching Intolerance No active intolerances/contraindications Physical Exam: BP 131/77 | Pulse 65 | Temp 37.6 C (99.7 F) (Oral) | Resp 18 | Ht 1.88 m (6' 2.02") | Wt (!) 169.5 kg (373 lb 10.9 oz) | SpO2 96% | BMI 47.96 kg/m Gen: Alert, sitting in bed, NAD HEENT: Head normocephalic. Mucosa moist. Pupils reactive to light. RESPIRATORY: Breathing comfortably. On auscultation lungs are clear, without retractions or adventitious sounds. CARDIOVASCULAR: Cardiac auscultation reveals regular rate and rhythm. Mild. More of a p roblem with adiposity.. CHEST: Nontender. GASTROINTESTINAL: Abdomen obese, soft with active bowel sounds present. No abnormal masses or tenderness. Silva catheter draining well. MUSCULOSKELETAL: Extremities symmetric. Range of motion stable. NEUROLOGIC: The patient is alert. . PSYCHIATRIC: Mood and affect stable Focuses on the Examiner and follows commands Cranial nerves stable. Strength is stable. Labs: Recent Results (from the past 48 hour(s)) POC Glucose Result Value Ref Range Glucose, POC 104 70 - 109 mg/dL POC Glucose Result Value Ref Range Glucose, POC 142 (H) 70 - 109 mg/dL POC Glucose Result Value Ref Range Glucose, POC 127 (H) 70 - 109 mg/dL POC Glucose Result Value Ref Range Glucose, POC 140 (H) 70 - 109 mg/dL POC Glucose Result Value Ref Range Glucose, POC 116 (H) 70 - 109 mg/dL POC Glucose Result Value Ref Range Glucose, POC 136 (H) 70 - 109 mg/dL Basic Metabolic Panel Result Value Ref Range NA 136 136 - 149 mmol/L K 3.9 3.5 - 5.1 mmol/L CL 105 98 - 109 mmol/L CO2 24 24 - 31 mmol/L ANION GAP 7 3 - 16 mmol/L GLUCOSE 141 (H) 70 - 109 mg/dL BUN 35 (H) 7 - 18 mg/dL Creatinine, Serum/Plasma 1.96 (H) 0.60 - 1.30 mg/dL eGFR if not 34 (L) >=60 mL/min/1.73m2 CALCIUM 9.1 8.3 - 10.5 mg/dL BUN/CREA 17.9 CBC with Differential Result Value Ref Range WBC 9.9 4.0 - 11.0 K/uL RBC 5.40 4.30 - 5.70 M/uL Hgb 16.2 13.5 - 18.0 g/dL Hct 49.1 40.0 - 51.0 % MCV 90.9 83.0 - 101.0 fL MCH 30.0 28.0 - 35.0 pg MCHC 33.0 32.0 - 36.0 g/dL RDW-CV 16.3 (H) <15.0 % RDW-SD 53.9 (H) 35.1 - 46.3 fL Platelet Count 319 140 - 440 K/uL MPV 11.7 6.5 - 12.4 fL % Neutrophils 47.2 45.0 - 82.0 % % Lymphocytes 37.4 20.0 - 45.0 % % Monocytes 10.0 4.0 - 12.0 % % Eosinophils 3.6 0.0 - 5.0 % % Basophils 0.9 0.0 - 1.0 % % Immature granulocytes 0.9 (H) 0.0 - 0.4 % Absolute Neutrophils 4.66 1.80 - 8.50 K/uL Absolute Lymphocytes 3.70 (H) 0.60 - 3.20 K/uL Absolute Monocytes 0.99 0.00 - 1.00 K/uL Absolute Eosinophils 0.36 0.00 - 0.40 K/uL Absolute Basophils 0.09 0.00 - 0.10 K/uL Absolute Imm. Granulocytes 0.09 (H) 0.00 - 0.03 K/uL nRBC 0 0 - 2 per 100 WBC's NRBC ABS 0.00 0.00 - 0.01 K/uL POC Glucose Result Value Ref Range Glucose, POC 126 (H) 70 - 109 mg/dL Most recent FIM scores: Report Date 06/28/2018 FIM BladderScore: 1 FIM Bowel Score: 1 FIM Bed/Chair/Wheelchair Score: 1 FIM Toilet Transfer Score: 1 FIM Tub/Shower Transfer Score: 4 FIM Walk Score: 1 FIM Distance Walked(feet): 5 feet FIM Wheelchair Score: FIM Stairs Score :0 FIM Eating Score: 5 FIM Grooming Score: 5 FIM Bathing Score: 2 FIM Dressing Upper Body Score: 4 FIM Dressing Lower Body Score: 3 FIM Toileting Score: 1 Assessment and Rehab Plan: . The patient is benefiting from inpatient rehabilitation : Physiatric and nursing interv ention; physical therapy, occupational therapy, speech therapy, case management, and social media assistant #Rehab - -Continue PT for gait, mobility -Continue OT for ADL's, toileting, adaptive equipment -Continue FOOT CASTER for cognition, swallow -Continue SW for discharge planning IMPRESSION : 1. Principal rehabilitation impairment : Acute nondominant side left hemiparesis 2. Etiologic diagnosis : Acute right-sided ischemic infarction in the region of the right insula 3. Dysphagia 4. Neurogenic bladder 5. Neurogenic bowel 6. Left-sided neglect and left-sided dyspraxia Associated comorbidities : 7. Diabetes mellitus, insulin-dependent, poorly controlled, with glycohemoglobin of 10.5, with complications with 8. Diabetic peripheral neuropathy 9. Morbid obesity 10. Mild cognitive impairment, with history of 3 previous left-sided CVAs, with CT evidenc e of left focal encephalomalacia in the posterior left frontal parietal junction, left tempo ral lobe, and left insular cortex; superimposed on diffuse mild plus cerebral atrophy. 11. Chronic HIV disease, stable on medication currently 12. AK I, with elevated BUN of 35 and creatinine of 2.07, superimposed on chronic kidney d isease, stage III 13. Hypertension 14. Atrial fibrillation 15. Chronic diastolic congestive heart failure 16. RACHELLE, on CPAP at night 17. Dyslipidemia 18. BPH 19 severe debility 20. Adjustment disorder, with anxiety and depression 21. Psychosocial stressors #/GI - Increased risk of incontinence or constipation/ voiding problems -continue current bladder and bowel regimen #DVT Prevention: Mobility, edema control, TEDS, Lovenox #Diet - Active Orders Diet Diet consistent carb; dysphagia advanced; nectar thick; Effective Now PLAN : The patient's chart was reviewed regarding interval medical history, noting documentations, orders and recent events. The patient was seen and evaluated on rounds. We addressed the current focus of the rehabi litation program with the patient. Note: my Progress Note documents close and ongoing Physiatric involvement; [id number] vis its , professionally assessing the Patient , both Medically and Functionally, with the emp hasis on the important interactions between our Patient's current clinical status, especiallyissues/barriers that may impact on the Rehabilitation Team's treatment and progress toward our medical and functional goals. I opine that this is important, so we may maximize our Patient's capacity to benefit from t he Comprehensive Inpatient Medical Rehabilitation process. The patient is seen and clinical status addressed in collaboration with the rehab team. I met with the charge nurse regarding overall nursing care concerns and discussed the overall nursing problematic issues. We met speech therapy as well as with nursing and then again with the patient. We'll express her concern about the dysphagia explained the risk he is running about aspira ting and possible serious infection with pneumonia etc. He states he understands but still refuses. We met with our patient's nurse and obtained an update on interval events. Nursing questions and concerns were addressed, including continence, skin issues, and pain complaints. We also followed up with the patient's floor nurse, discussing the above, as well as addressing the specific nursing patient care focus of the day , reviewing the patient's cu rrent status and addressing any questions, concerns and/or related issues. Advancing bowel program is problematic because of the above complaints issue. He is overall complying better with using his CPAP at night. Nursing is continuing to work with her on further education on the medication and medicatio n management. The full medical rehabilitation team did meet today in conference. The patient's pertinent active medical problems, comorbidities, and medical rehabilitation needs were discussed and shared with the team members. I opine that there is a reasonable expectation that due to the complexity of our patient's nursing/medical management and rehabilitation needs requires an inpatient stay, including a physician lead and coordin ated interdisciplinary team approach to the delivery of rehabilitation care. I chaired the Rehabilitative Team Conference and led the team's collaboration . We discussed , assessed , and addressed our patient's current impairments, comorbidities, short-term goals, current focus of our rehabilitation team treatments and barriers; Noting tolerance , compliance ,and progress towards the rehabilitation goals. The full Rehab Team collaborated; considering and addressing the patient's current toleranc e and compliance with the rehabilitation treatment , noting any issues and seeking resolutio n of any problems/barriers impeding progress towards goals. I garnered the information from all of the Medical Rehabilitation Team members' assessmentsand reports as we synthesized and advanced the overall plan of care. The validi ty of ourrehabilitation goals were reassessed as we monitored and revised the treatment plan as indicated. We are having some difficulty with variable compliance/intermittent refusal with the geno d components of the rehab therapy program. Medication with the patient and expressed our concern and also strongly counseled him about the need for him to cooperate and participate to stay here. He expressed understanding of this. With his basic ADLs he has set up with the feeding and grooming. Up from his dressing is min assist lower extremity dressing mod assist. However he is refu sing to wear his trousers and other lower extremity garments. Toilet transfers are dependent on his mechanics for toileting. We are having a speech therapy assess his cognitive skills. I suspect there is a personali ty disorder component. With mobility is sitting balance and endurance are improved. Transfers are requiring 2 staff members. This probably because of his large size and morbi d obesity , and partly because of neurologic deficit and motor planning problems, Compounded by left-sided neglect, Joleen deficit, and apraxia. Of these 2 staff members one is min assist and the other mod assist. For safety reasons I instructed staff to use slide board transfers on the nursing unit. PT is also working on a trial of transfers and standing with use of a front wheel walker wi th platform. Is not able to ambulate at present. Patient insists that his will be able to care for him. I expressed my concern. We are scheduling a set up a family conference to address and review these issues with them . Patient agrees with this plan. I also counseled him that unless he is more consistently cooperating and complying that I w ill need to either discharge him to home if his states she can manage his care needs, o r more likely discharge to [facility] facility. He stated understanding of this. Please see the Rehabilitation Interdisciplinary Team Conference notes for further details regarding rehabilitation team discussion and plan. Following team conference I met with the patient and discussed the above. Safety with self-care and mobility were discussed. The patient's current rehabilitation plan of care and projected discharge destination were discussed and reviewed with the patient and our bilingual patient support caseworker. She is collaborating with the patient's support system to solicit their input as we advan ce the program. Total time: 39 minutes. We spent greater than 50% of the time regarding patient care andcoordination on this date, including unit/floor time, as well as time communicating with the patient and treatment team as discussed above. Signed: Pramod Salinas MD Portions of this chart may have been created with [employer] voice recognition software. Occasi onal wrong-word or sound-alike substitutions may have occurred due to the inherent gupta itations of voice recognition software. Please read the chart carefully and recognize, using context, where these substitutions have occurred. [facility] - 06/27/2018 4:47 PM PDT [id number] Daily Progress Note Date: 06/27/18 ID/CC: Reason for encounter : Physician follow-up to address the medical rehabilitation needs, issues, and problems . These include serving as the patient's attending physician while on our inpatient acute r ehabilitation service . I am responsible for managing and treating her active medical diagnoses as documented in the Rehabilitation History and Physical Impressions and Progress Notes . Also I am responsible for leading and directing our Interdisciplinary Rehabilitation treatm ent Team members' efforts including management of problems with function including safety wi th self-care/activities of daily living as well as safely negotiating the environment/functi onal mobility. Interval history: The recently had marked difficulty over the past few days with the patient's bladder progra m, with a very high residuals. Therefore Silva catheter had to be inserted to allow the shawn dder to decompress. There also had problems with bowel incontinence. I discussed this and address this with e patient and the nurse. An additional problem is that yesterday he was noted to have increased swelling and pain i n his left forearm and wrist. No recent trauma noted. As precaution, x-ray was obtained. I reviewed these films IMPRESSION - 1. NO CONCLUSIVE RADIOGRAPHIC EVIDENCE OF ACUTE INJURY. 2. POSITIVE ULNAR VARIANCE, POTENTIALLY RELATED TO PREVIOUS, NOW HEALED RADIAL FRACTURE. 3. SMALL FOREIGN BODY IN THE BASE OF THE THUMB. 4. ARTERIAL CALCIFICATION. Agree they're negative for acute fracture. They do show a somewhat dysplastic appearing distal forearm bones and wrist consistent wit h remote trauma, as well as osteoporotic changes in the bone more so than one would expect w ith a man his size and age. Chief problem : Weakness and difficulty with self-care/ADLs and functional mobility Discussed the above with the patient and his nurse and his PT and OT. Another problem is significant difficulty with his bed mobility. This is exacerbated by hi s very large size with morbid obesity. Reviewed this with the nurse and will have him switc h to a bariatric bed. Also I ordered a trapeze to help with his mobility. Problem List Patient Active Problem List Diagnosis Ischemic cerebrovascular accident (CVA) IDDM (insulin dependent diabetes mellitus) HTN (hypertension) CKD (chronic kidney disease) HIV (human immunodeficiency virus infection) Acute left hemiparesis Dysphagia due to recent cerebral infarction Neurogenic bladder Morbid obesity Diabetic peripheral neuropathy RACHELLE treated with BiPAP Mild cognitive impairment Current Meds: Current Facility-Administered Medications: lqitgipt-hxiqddirnrcu-kytyIVAsdy (TRIUMEQ) 600-50-300 mg per tablet 1 tablet (POM), 1 tablet, Oral, Nightly, Pramod Salinas MD, 1 tablet at 06/26/182020 allopurinol (ZYLOPRIM) tablet 100 mg, 100 mg, Oral, Daily, Pramod Salinas MD, 100 mg at 06/27/18 0832 apixaban (ELIQUIS) tablet 5 mg, 5 mg, Oral, Q12H, Pramod Salinas MD, 5 mg at 06/27 05 atorvaSTATin (LIPITOR) tablet 80 mg, 80 mg, Oral, Daily, Pramod Salinas MD, 80 mg at 06/27/18 08 Hypoglycemia Management, , , Until Discontinued AND POCT Glucose, , , PRN AND dextrose 50% injection 12.5 g, 12.5 g, Intravenous, PRN, Pramod Salinas MD diphenhydrAMINE (BENADRYL) tablet 25 mg, 25 mg, Oral, Q6H PRN, Sabino Sow MD, 25 mg at 06/25/18 180 finasteride (PROSCAR) tablet 5 mg, 5 mg, Oral, Daily, Pramod Salinas MD, 5 mg at 1 0831 gabapentin (NEURONTIN) capsule 300 mg, 300 mg, Oral, BID, Pramod Salinas MD, 300 m g at 06/27/18 0832 HYDROcodone-acetaminophen (NORCO) 5-325 mg per tablet 1-2 tablet, 1-2 tablet, Oral, Q4 H PRN, Pramod Salinas MD, 1 tablet at 06/27/18 0533 insulin lispro (humaLOG KWIKPEN) 100 units/mL injection (pen) 0-6 Units, 0-6 Units, Garber bcutaneous, 4x Daily WC and HS, Pramod Salinas MD, 1 Units at 06/26/18 1207 insulin lispro (humaLOG KWIKPEN) 100 units/mL injection (pen) 15 Units, 15 Units, Subc utaneous, TID WC, Pramod Salinas MD, 15 Units at 06/27/18 1202 isosorbide mononitrate (IMDUR) ER tablet 30 mg, 30 mg, Oral, Daily, Pramod Salinas MD, 30 mg at 06/27/18 0831 metoprolol tartrate (LOPRESSOR) tablet 25 mg, 25 mg, Oral, BID, rPamod Salinas MD, 25 mg at 06/27/18 0832 zolpidem (AMBIEN) tablet 5 mg, 5 mg, Oral, Nightly PRN, Pramod Salinas MD Allergies: Allergies Allergen Reactions Amoxicillin Not Noted Augmentin- throat swelling Chlorhexidine Itching Other reaction(s): VESICLES IN SKIN Ciprofloxacin Not Noted Other reaction(s): ACUTE INTERSTITIAL NEPHRITIS Simvastatin Rash,Itching Sulfa Antibiotics Not Noted Tigecycline Itching,Hives Cefazolin Itching,Hives Cephalexin Itching Niacin Not Noted Other reaction(s): FLUSHING Sulfamethoxazole-Trimethoprim Itching Acute interstitial nephritis Bee Venom Rash Tape (Adhesive & Tape) Not Noted Triamcinolone Rash Vancomycin Itching Intolerance No active intolerances/contraindications Physical Exam: BP 122/60 | Pulse 66 | Temp 36.2 C (97.2 F) (Axillary) | Resp 21 | Ht 1.88 m (6' 2. 02") | Wt (!) 169.5 kg (373 lb 10.9 oz) | SpO2 93% | BMI 47.96 kg/m Gen: Alert, sitting in bed, NAD ENT: Sclerae clear. Oral mucosa moist. NECK: Supple. Trachea midline. No thyromegaly. RESPIRATORY: Lungs are clear to auscultation and percussion bilaterally with symmetrical a ir movement. The patient is breathing comfortably. CARDIOVASCULAR: Cardiac rhythmis regular. No murmur. Peripheral pulses stable. GASTROINTENSTINAL: Abdomen soft and nontender. Bowel sounds Present. GENITOURINARY: Genital: Normal adult male. Silva catheter draining well. No abnormal osbaldo inage. rectal exam not performed. He has been incontinent. Bowel management program continued. MUSCULOSKELETAL: Mild edema in the distal left forearm wrist and hand. No hypersensitivity . There is some restricted motion at the left wrist elbow and shoulder due to complaints of pain. Otherwise Extremities stable. Range of motion is stable. NEUROLOGIC: Finds the patient awake, alert and cooperative. Follows commands. Strength and mobility are stable. Labs: Recent Results (from the past 48 hour(s)) POC Glucose Result Value Ref Range Glucose, POC 103 70 - 109 mg/dL POC Glucose Result Value Ref Range Glucose, POC 148 (H) 70 - 109 mg/dL POC Glucose Result Value Ref Range Glucose, POC 127 (H) 70 - 109 mg/dL POC Glucose Result Value Ref Range Glucose, POC 152 (H) 70 - 109 mg/dL POC Glucose Result Value Ref Range Glucose, POC 104 70 - 109 mg/dL POC Glucose Result Value Ref Range Glucose, POC 142 (H) 70 - 109 mg/dL POC Glucose Result Value Ref Range Glucose, POC 127 (H) 70 - 109 mg/dL POC Glucose Result Value Ref Range Glucose, POC 140 (H) 70 - 109 mg/dL Most recent FIM scores: Report Date 06/27/2018 FIM BladderScore: 1 FIM Bowel Score: 1 FIM Bed/Chair/Wheelchair Score: 1 FIM Toilet Transfer Score: 1 FIM Tub/Shower Transfer Score: 4 FIM Walk Score: 1 FIM Distance Walked(feet): 10 feet FIM Wheelchair Score: FIM Stairs Score :0 FIM Eating Score: 5 FIM Grooming Score: 5 FIM Bathing Score: 3 FIM Dressing Upper Body Score: 4 FIM Dressing Lower Body Score: 3 FIM Toileting Score: 1 Assessment and Rehab Plan: . The patient is benefiting from inpatient rehabilitation : Physiatric and nursing interv ention; physical therapy, occupational therapy, speech therapy, case management, and social media assistant #Rehab - -Continue PT for gait, mobility -Continue OT for ADL's, toileting, adaptive equipment -Continue FOOT CASTER for cognition, swallow -Continue SW for discharge planning IMPRESSION : 1. Principal rehabilitation impairment : Acute nondominant side left hemiparesis 2. Etiologic diagnosis : Acute right-sided ischemic infarction in the region of the right insula 3. Dysphagia 4. Neurogenic bladder 5. Neurogenic bowel 6. Left-sided neglect and left-sided dyspraxia Associated comorbidities : 7. Diabetes mellitus, insulin-dependent, poorly controlled, with glycohemoglobin of 10.5, with complications with 8. Diabetic peripheral neuropathy 9. Morbid obesity 10. Mild cognitive impairment, with history of 3 previous left-sided CVAs, with CT evidenc e of left focal encephalomalacia in the posterior left frontal parietal junction, left tempo ral lobe, and left insular cortex; superimposed on diffuse mild plus cerebral atrophy. 11. Chronic HIV disease, stable on medication currently 12. AK I, with elevated BUN of 35 and creatinine of 2.07, superimposed on chronic kidney d isease, stage III 13. Hypertension 14. Atrial fibrillation 15. Chronic diastolic congestive heart failure 16. RACHELLE, on CPAP at night 17. Dyslipidemia 18. BPH 19 severe debility 20. Adjustment disorder, with anxiety and depression 21. Psychosocial stressors #/GI - Increased risk of incontinence or constipation/ voiding problems -continue current bladder and bowel regimen #DVT Prevention: Mobility, edema control, TEDS, Lovenox #Diet - Active Orders Diet Diet consistent carb; dysphagia advanced; nectar thick; Effective Now PLAN : The patient is seen and clinical status addressed in collaboration with the rehab team. I met with the charge nurse regarding overall nursing care concerns and discussed the over all nursing problematic issues. The patient's chart was reviewed regarding interval medical history, noting orders and rece nt events. Laboratory data was reviewed. Recheck lab in the morning with CBC and BMP. I met with our patient's nurse and was updated regarding current and recent clinical issues and events. We addressed nursing questions and concerns, including continence, skin issues , and pain complaints. I met with the patient's bilingual patient support caseworker and reviewed the current rehabilitation plan of care and discussed projected discharge destination. We are scheduling hands on family training for his . She is collaborating with the patient's support system to solicit their input as we advanc e the program. The patient was seen and evaluated on rounds. We addressed the current treatment focus of the rehabilitation program with the patient. Safety with mobility was discussed. I am coordinating with our Medical Rehabilitation Team considering and addressing the multi ple medical co-morbidities. Our patient is medically cleared to continue full program. Active medical problem list: Noted and reviewed Regards to the swelling in his distal left upper extremity, we will have the arm e levated when at rest. I met with the physical therapist and occupational therapist. We are pushing active assist ed range of motion and strengthening to facilitate normal activity. He is at risk for RSD and shoulder-hand syndrome we are vigorously trying to avoid this. Continue to address these medical issues and concerns. I will continue to lead, direct, and coordinate overall plan of care with full team. Reinfo rce safety measures and awareness. . We also met with the patient and the patient's speech therapist, reviewing the patient's current status and addressing any questions, concerns and/or related issues. I again discussed with the patient are concerned about the dysphagia. We are recommending nectar thick liquids. He is continuing to refuse these. Were scheduling modified barium swallow to further assess this. Note: my Progress Notes document close and ongoing Physiatric involvement; [id number]-[id number] vis its , professionally assessing the Patient, both Medically and Functionally, with the empha sis on the important interactions between our Patient's current clinical status, especially issues/barriers that may impact on the Rehabilitation Team's treatment and progress toward o medical and functional goals. I opine that this is important, so we may maximize our Patient's capacity to benefit from [facility] Comprehensive Inpatient Medical Rehabilitation process. The patient is seen in follow-up for evaluation and assessment of needs and ability to tole rate and benefit from an intensive rehabilitation program with our multidisciplinary-coordin ated rehabilitation team. I assessed the patient working with our rehabilitation team members and perused the team me mboziel' notes. The current rehabilitation treatment focus was reviewed with our patient, seek ing input, noting challenges and progress. Follow-up tomorrow morning with the full inpatient [facility] is [facility]. Total time: 37 minutes. I spent greater than 50% of the time regarding patient care and co ordination of the Medical Rehabilitation Team treatment focus addressing these patient care needs on this date, including nursing unit/floor time, as well as time communicating with [facility] patient and treatment team as discussed above. Signed: Pramod Salinas MD Portions of this chart may have been created with [employer] voice recognition software. Occasi onal wrong-word or sound-alike substitutions may have occurred due to the inherent gupta itations of voice recognition software. Please read the chart carefully and recognize, using context, where these substitutions have occurred. Yessy Stockton RN - 06/26/2018 6:34 AM PDTPt refus ing nectar thick fluids, educated on swallow risk with thin fluids, pt still refusing and dixon s been drinking thin fluids following swallow precautions, no choking noted. Electronically signed by: Yessy Calderon RN 06/26/2018 6:36 ill, Pramod lincoln MD - 06/24/2018 3:19 PM PDTFormatting of this note might be different from the origi nal. [id number] Daily Progress Note Date: 06/24/18 ID/CC: Reason for encounter : Physician follow-up to address the medical rehabilitation needs, issues, and problems . These include serving as the patient's attending physician while on our inpatient acute r ehabilitation service . I am responsible for managing and treating her active medical diagnoses as documented in t he Rehabilitation History and Physical Impressions and Progress Notes . Also I am responsible for leading and directing our Interdisciplinary Rehabilitation treatm ent Team members' efforts including management of problems with function including safety wi th self-care/activities of daily living as well as safely negotiating the environment/functi onal mobility. Interval history: Patient has not voided since 2100 hrs. last night and at that time nursing obtained 1100 cc . Also, staff reported he was resistant to some treatment and had been irascible at times. Especially was upset about the nectar thick liquid restriction with his diet and is refusin g to comply with this. Chief problem : Weakness and difficulty with self-care/ADLs and functional mobility I met with him and discussed the above issues at length. We discussed the problem with dysphagia. He states he understands that but is adamantly re fusing to comply with the nectar thick liquids. I discussed this at length with him and his speech therapist and the nurse. He does seem to understand and is at risk for aspiration. However it is clear he is refusing so I will document his refusal to allow thin liquids. We'll use small volume, chin tuck and head turn to the left and follow closely his temperat ure curve and lung status to rule out possible aspiration which she will of course continue to be at high risk for. I also discussed the problem with the bladder problem. He states he's always had a "high-v olume bladder" Problem List Patient Active Problem List Diagnosis Ischemic cerebrovascular accident (CVA) IDDM (insulin dependent diabetes mellitus) HTN (hypertension) CKD (chronic kidney disease) HIV (human immunodeficiency virus infection) Current Meds: Current Facility-Administered Medications: bemdskcj-rfbapjdbuxfy-momeZOWlym (TRIUMEQ) 600-50-300 mg per tablet 1 tablet (POM), 1 tablet, Oral, Nightly, Pramod Salinas MD, 1 tablet at 06/22/18 2244 allopurinol (ZYLOPRIM) tablet 100 mg, 100 mg, Oral, Daily, Pramod Salinas MD, 100 mg at 06/23/18 1108 apixaban (ELIQUIS) tablet 5 mg, 5 mg, Oral, Q12H, Pramod Salinas MD, 5 mg at 06/23 0707 atorvaSTATin (LIPITOR) tablet 80 mg, 80 mg, Oral, Daily, Pramod Salinas MD, 80 mg at 06/23/18 1107 Hypoglycemia Management, , , Until Discontinued AND POCT Glucose, , , PRN AND dextrose 50% injection 12.5 g, 12.5 g, Intravenous, PRN, Pramod Salinas MD finasteride (PROSCAR) tablet 5 mg, 5 mg, Oral, Daily, Pramod Salinas MD, 5 mg at 1 1108 gabapentin (NEURONTIN) capsule 300 mg, 300 mg, Oral, BID, Pramod Salinas MD, 300 m g at 06/23/18 1108 HYDROcodone-acetaminophen (NORCO) 5-325 mg per tablet 1-2 tablet, 1-2 tablet, Oral, Q4 H PRN, Pramod Salinas MD insulin glargine (LANTUS SOLOSTAR) 100 units/mL injection (pen) 25 Units, 25 Units, Garber bcutaneous, 2 times per day, Pramod Salinas MD, 25 Units at 06/23/18 1109 insulin lispro (humaLOG KWIKPEN) 100 units/mL injection (pen) 0-6 Units, 0-6 Units, Garber bcutaneous, 4x Daily WC and HS, Pramod Salinas MD insulin lispro (humaLOG KWIKPEN) 100 units/mL injection (pen) 15 Units, 15 Units, Subc utaneous, TID WC, Pramod Salinas MD, 15 Units at 06/23/18 1214 isosorbide mononitrate (IMDUR) ER tablet 30 mg, 30 mg, Oral, Daily, Pramod Salinas MD, 30 mg at 06/23/18 1108 metoprolol tartrate (LOPRESSOR) tablet 25 mg, 25 mg, Oral, BID, Pramod Salinas MD, 25 mg at 06/23/18 1108 zolpidem (AMBIEN) tablet 5 mg, 5 mg, Oral, Nightly PRN, Pramod Salinas MD Allergies: Allergies Allergen Reactions Amoxicillin Not Noted Augmentin- throat swelling Chlorhexidine Itching Other reaction(s): VESICLES IN SKIN Ciprofloxacin Not Noted Other reaction(s): ACUTE INTERSTITIAL NEPHRITIS Simvastatin Rash,Itching Sulfa Antibiotics Not Noted Tigecycline Itching,Hives Cefazolin Itching,Hives Cephalexin Itching Niacin Not Noted Other reaction(s): FLUSHING Sulfamethoxazole-Trimethoprim Itching Acute interstitial nephritis Bee Venom Rash Tape (Adhesive & Tape) Not Noted Triamcinolone Rash Vancomycin Itching Intolerance No active intolerances/contraindications Physical Exam: BP 129/78 | Pulse 78 | Temp 35.8 C (96.4 F) (Axillary) | Resp 16 | SpO2 98% Gen: Alert, sitting in bed, NAD ENT: Sclerae clear. Oral mucosa moist. NECK: Supple. Trachea midline. No thyromegaly. RESPIRATORY: Lungs are clear to auscultation and percussion bilaterally with symmetrical a ir movement. The patient is breathing comfortably. CARDIOVASCULAR: Cardiac rhythmis regular. No murmur. Peripheral pulses stable. GASTROINTENSTINAL: Abdomen soft and nontender. Bowel sounds Present. GENITOURINARY: Genital somewhat hypoplastic penis. However since this may be also somewha t apparent because of his very large abdomen and pannus with his obesity. rectal exam not p erformed. Bowel and bladder management program continued. MUSCULOSKELETAL: Extremities stable. Range of motion is stable. NEUROLOGIC: Finds the patient awake, alert and cooperative. Follows commands. Strength an d mobility are stable. Labs: Recent Results (from the past 48 hour(s)) POC Glucose Result Value Ref Range Glucose, POC 133 (H) 70 - 109 mg/dL POC Glucose Result Value Ref Range Glucose, POC 162 (H) 70 - 109 mg/dL Protime INR Result Value Ref Range Protime 22.0 (H) 11.3 - 13.9 seconds INR 2.0 (H) 0.9 - 1.1 Basic Metabolic Panel Result Value Ref Range NA 138 136 - 149 mmol/L K 4.1 3.5 - 5.1 mmol/L CL 105 98 - 109 mmol/L CO2 23 (L) 24 - 31 mmol/L ANION GAP 10 3 - 16 mmol/L GLUCOSE 126 (H) 70 - 109 mg/dL BUN 32 (H) 7 - 18 mg/dL Creatinine, Serum/Plasma 1.89 (H) 0.60 - 1.30 mg/dL eGFR if not 36 (L) >=60 mL/min/1.73m2 CALCIUM 9.4 8.3 - 10.5 mg/dL BUN/CREA 16.9 Extra Lavender Top Tube Result Value Ref Range Extra Lavender Top Tube Done POC Glucose Result Value Ref Range Glucose, POC 99 70 - 109 mg/dL POC Glucose Result Value Ref Range Glucose, POC 86 70 - 109 mg/dL POC Glucose Result Value Ref Range Glucose, POC 141 (H) 70 - 109 mg/dL B Type Natriuretic Peptide Result Value Ref Range BNP 101 (H) <100 pg/mL CBC with Differential Result Value Ref Range WBC 10.2 4.0 - 11.0 K/uL RBC 5.60 4.30 - 5.70 M/uL Hgb 16.9 13.5 - 18.0 g/dL Hct 51.4 (H) 40.0 - 51.0 % MCV 91.8 83.0 - 101.0 fL MCH 30.2 28.0 - 35.0 pg MCHC 32.9 32.0 - 36.0 g/dL RDW-CV 16.2 (H) <15.0 % RDW-SD 54.2 (H) 35.1 - 46.3 fL Platelet Count 323 140 - 440 K/uL MPV 10.9 6.5 - 12.4 fL % Neutrophils 52.9 45.0 - 82.0 % % Lymphocytes 32.9 20.0 - 45.0 % % Monocytes 9.0 4.0 - 12.0 % % Eosinophils 3.6 0.0 - 5.0 % % Basophils 0.9 0.0 - 1.0 % % Immature granulocytes 0.7 (H) 0.0 - 0.4 % Absolute Neutrophils 5.37 1.80 - 8.50 K/uL Absolute Lymphocytes 3.35 (H) 0.60 - 3.20 K/uL Absolute Monocytes 0.92 0.00 - 1.00 K/uL Absolute Eosinophils 0.37 0.00 - 0.40 K/uL Absolute Basophils 0.09 0.00 - 0.10 K/uL Absolute Imm. Granulocytes 0.07 (H) 0.00 - 0.03 K/uL nRBC 0 0 - 2 per 100 WBC's NRBC ABS 0.00 0.00 - 0.01 K/uL Comprehensive Metabolic Panel Result Value Ref Range NA 137 136 - 149 mmol/L K 4.2 3.5 - 5.1 mmol/L CL 107 98 - 109 mmol/L CO2 22 (L) 24 - 31 mmol/L ANION GAP 8 3 - 16 mmol/L GLUCOSE 110 (H) 70 - 109 mg/dL BUN 35 (H) 7 - 18 mg/dL Creatinine, Serum/Plasma 2.07 (H) 0.60 - 1.30 mg/dL eGFR if not 32 (L) >=60 mL/min/1.73m2 CALCIUM 9.4 8.3 - 10.5 mg/dL ALBUMIN 3.2 3.2 - 5.0 g/dL Bilirubin Total 0.7 0.1 - 1.5 mg/dL Total protein 7.8 6.0 - 7.8 g/dL AST 32 10 - 42 U/L ALT 22 6 - 45 U/L ALK PHOS 96 40 - 110 U/L GLOBULIN 4.6 (H) 2.1 - 3.8 g/dL Albumin/Globulin ratio 0.7 (L) 0.8 - 2.0 BUN/CREA 16.9 Prealbumin Result Value Ref Range Prealbumin 18 18 - 38 mg/dL POC Glucose Result Value Ref Range Glucose, POC 105 70 - 109 mg/dL POC Glucose Result Value Ref Range Glucose, POC 141 (H) 70 - 109 mg/dL Most recent FIM scores: FIM BladderScore: 3 FIM Bowel Score: FIM Bed/Chair/Wheelchair Score: 1 FIM Toilet Transfer Score: 2 FIM Tub/Shower Transfer Score: FIM Walk Score: 1 FIM Distance Walked(feet): 15 feet FIM Wheelchair Score: FIM Stairs Score :0 FIM Eating Score: 5 FIM Grooming Score: FIM Bathing Score: FIM Dressing Upper Body Score: FIM Dressing Lower Body Score: FIM Toileting Score: Assessment and Rehab Plan: . The patient is benefiting from inpatient rehabilitation : Physiatric and nursing interv ention; physical therapy, occupational therapy, speech therapy, case management, and social media assistant #Rehab - -Continue PT for gait, mobility -Continue OT for ADL's, toileting, adaptive equipment -Continue FOOT CASTER for cognition, swallow -Continue SW for discharge planning IMPRESSION : 1. Principal rehabilitation impairment : Acute nondominant side left hemiparesis 2. Etiologic diagnosis : Acute right-sided ischemic infarction in the region of the right insula 3. Dysphagia 4. Neurogenic bladder 5. Neurogenic bowel 6. Left-sided neglect and left-sided dyspraxia Associated comorbidities : 7. Diabetes mellitus, insulin-dependent, poorly controlled, with glycohemoglobin of 10.5, with complications with 8. Diabetic peripheral neuropathy 9. Morbid obesity 10. Mild cognitive impairment, with history of 3 previous left-sided CVAs, with CT evidenc e of left focal encephalomalacia in the posterior left frontal parietal junction, left tempo ral lobe, and left insular cortex; superimposed on diffuse mild plus cerebral atrophy. 11. Chronic HIV disease, stable on medication currently 12. AK I, with elevated BUN of 35 and creatinine of 2.07, superimposed on chronic kidney d isease, stage III 13. Hypertension 14. Atrial fibrillation 15. Chronic diastolic congestive heart failure 16. RACHELLE, on CPAP at night 17. Dyslipidemia 18. BPH 19 severe debility 20. Adjustment disorder, with anxiety and depression 21. Psychosocial stressors #/GI - Increased risk of incontinence or constipation/ voiding problems -continue current bladder and bowel regimen #DVT Prevention: Mobility, edema control, TEDS, Lovenox #Diet - Active Orders Diet Diet consistent carb; dysphagia mechanical; nectar thick; Effective Now PLAN : Reviewed current laboratory results. Reviewed recent diagnostic studies. Reviewed current medications. The patient is seen in collaboration with the rehab team. I met with the charge nurse fran navaing overall nursing care concerns. We also met with the patient's bedside nurse, reviewing the patient's current status and addressing any questions, concerns and/or related issues. The patient has overstretched his bladder. I believe he has a neurogenic bladder due to co mbination of central impairment from the acute stroke and also peripheral nerve involvement from the diabetes. I order to insert a Silva catheter to allow the bladder decompressed. Note: my Progress Notes document close and ongoing Physiatric involvement; [id number] vis its , professionally assessing the Patient, both Medically and Functionally, with the empha sis on the important interactions between our Patient's current clinical status, especially issues/barriers that may impact on the Rehabilitation Team's treatment and progress toward o ur medical and functional goals. I opine that this is important, so we may maximize our Patient's capacity to benefit from t Comprehensive Inpatient Medical Rehabilitation process. I met with the patient's nurse. We discussed and reviewed the above, as well as related clinical issues. Reviewed current rehabilitation therapy treatment documentation, noting the patient's st atus and tolerance. Rehabilitation therapy staff is continuing to coordinate and collaborate with the [facility] nursing staff to complement their therapy treatment focus, especially considering safety factors, as the patient is mobilized on the nursing unit. Respiratory therapy following 02 weaning with activity as tolerated. Hypertension/Hypotension, BP pattern being followed with activity. Continue to monitor BP to rule out any orthostatic problem. The patient is tolerating and benefiting from our medical rehabilitation team's treatment e fforts. Continue the full program. Individualized Overall Plan of Care: The patient is admitted for a course of Comprehensive Inpatient Medical Rehabilitation Serv ices, both reasonable and necessary; including 24 hr. Physician supervision for direction of all medical and rehabilitation care. The patient's functional status on admission to Inpatient Rehab is different and has declin ed compared to his/her premorbid status. The current functional status is similar to the Patient's functional status documented in the Pre-Admission screen. Specific plans are as follows: Medical issues: See H&P, Problem List, and Orders Precautions: Fall/Safety, Aspiration, Pain, Spinal, Seizure, Shower, Pressure Ulcer, Bowel and Bladder, Metabolic, and Vital Signs precautions Rehabilitation Nursing: Address, treat and train the patient and family/caregivers: Medication management, indicati on and management bowel and bladder, and coordination with the Electro Plater managing medical co -morbidities; including Coordinate with Rehab therapies as we carry over and continue the Re habilitation Skill Training from the Rehab Clinic to the Nursing Unit. Therapies: Physical Therapy (Approx. 1 and one half hours daily at least 6 days per week) to include a s indicated: transfer training, gait training, balance petr, neuro petr, A/PROM, strengthen ing, and to safely negotiate the environment Occupational Therapy (Approx 1 and one half hours daily at least 6 days per week) to includ e: self care/ADL training, A/PROM, strengthening, visual-perceptual petr, neuro petr, IADLs , and safely function and perform self care skills Speech Language Pathology Therapy (Approx 1 hours daily at least 6 days per week) to includ e: swallow eval, Dysphagia /swallowing petr, speech retraining, cognitive petr, med managem ent, communication skills; current cognitive status and abilities. With treatment to improv e attention to task, short term memory, problem solving and carry over. 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 I appreciate their input . I opine that this is important. I ramirez additional pertinent information, and from this. I integrate input from all of of our Medical Rehabilitation Team that is required for fur ther details regarding the ongoing and further development of the Patient's expected course of Treatment Note: I synthesized all of the Rehabilitation Team Members' input to support this documente d overall Plan of Care. These expectations for the Patient's course of treatment are also based on my professional Physiatric training and experience as it pertains to our Patient's medical and functional ne eds and conditions. I coordinate all of this collaboration of our Interdisciplinary Team, along with my medical opinions considering our Patient's impairments, functional status, co- morbid I complicatin g conditions, and any other contributing factors. Goals: Medical stability and safety with all aspects of function to allow discharge to the [facility] at the optimal level of function. Current goals include medication management and administration, appropriate diet and nutrit ion, optimal management of bowel and bladder, addressing and minimizing pain management, fa cilitating mood and affect. Also addressing any problems with Activities of Daily Living, transfers, and safely negotia ting the environment. Family/caregiver training, and evaluation for adaptive equipment, will be included as progr am is advanced. Specific short term and loan servicing representative Rehabilitation Team Treatment Goals will be developed, sh ared and implemented in collaboration with our patient and family/caregivers. The Civil Litigation Attorney is the church Rehab trampoline team coach interfacing with them. Rehab Potential: Good Expected Functional Level at Discharge: Independent/Modified Independent/Supervision/Min Assist. Estimated length of stay: 14 days Discharge Plan: Discharge to pre-morbid independent living setting with the supportive care of patient's spouse/significant other/family/caregivers and community resources. Signed: Pramod Salinas MD Portions of this chart may have been created with Dragon voice recognition software. Occasi onal wrong-word or sound-alike substitutions may have occurred due to the inherent gupta itations of voice recognition software. Please read the chart carefully and recognize, using context, where these substitutions have occurred. ill, Pramod Tobar MD - 06/23/2018 12:33 PM PDT [id number] Daily Progress Note Date: 06/23/18 ID/CC: Reason for encounter : Physician follow-up to address the medical rehabilitation needs, issues, and problems . Interval history: he was admitted to the inpatient rehab program yesterday. Nursing reports some mild behavioral problems last evening , with some verbal outbursts and associated acting out Chief problem : Weakness and difficulty with self-care/ADLs and functional mobility I discussed the above with the patient. I also discussed the plan of the rehab treatment Problem List Patient Active Problem List Diagnosis Ischemic cerebrovascular accident (CVA) IDDM (insulin dependent diabetes mellitus) HTN (hypertension) CKD (chronic kidney disease) HIV (human immunodeficiency virus infection) Current Meds: Current Facility-Administered Medications: pecvunkw-niuuwddejixu-djtxOMNsgo (TRIUMEQ) 600-50-300 mg per tablet 1 tablet (POM), 1 tablet, Oral, Nightly, Pramod Salinas MD, 1 tablet at 06/22/18 2244 allopurinol (ZYLOPRIM) tablet 100 mg, 100 mg, Oral, Daily, Pramod Salinas MD, 100 mg at 06/23/18 1108 apixaban (ELIQUIS) tablet 5 mg, 5 mg, Oral, Q12H, Pramod Salinas MD, 5 mg at 06/23 0707 atorvaSTATin (LIPITOR) tablet 80 mg, 80 mg, Oral, Daily, Pramod Salinas MD, 80 mg at 06/23/18 1107 Hypoglycemia Management, , , Until Discontinued AND POCT Glucose, , , PRN AND dextrose 50% injection 12.5 g, 12.5 g, Intravenous, PRN, Pramod Salinas MD finasteride (PROSCAR) tablet 5 mg, 5 mg, Oral, Daily, Pramod Salinas MD, 5 mg at 1 1108 gabapentin (NEURONTIN) capsule 300 mg, 300 mg, Oral, BID, Pramod Salinas MD, 300 m g at 06/23/18 1108 HYDROcodone-acetaminophen (NORCO) 5-325 mg per tablet 1-2 tablet, 1-2 tablet, Oral, Q4 H PRN, Pramod Salinas MD insulin glargine (LANTUS SOLOSTAR) 100 units/mL injection (pen) 25 Units, 25 Units, Garber bcutaneous, 2 times per day, Pramod Salinas MD, 25 Units at 06/23/18 1109 insulin lispro (humaLOG KWIKPEN) 100 units/mL injection (pen) 0-6 Units, 0-6 Units, Garber bcutaneous, 4x Daily WC and HS, Pramod Salinas MD insulin lispro (humaLOG KWIKPEN) 100 units/mL injection (pen) 15 Units, 15 Units, Subc utaneous, TID WC, Pramod Salinas MD, 15 Units at 06/23/18 1214 isosorbide mononitrate (IMDUR) ER tablet 30 mg, 30 mg, Oral, Daily, Pramod Salinas MD, 30 mg at 06/23/18 1108 metoprolol tartrate (LOPRESSOR) tablet 25 mg, 25 mg, Oral, BID, Pramod Salinas MD, 25 mg at 06/23/18 1108 zolpidem (AMBIEN) tablet 5 mg, 5 mg, Oral, Nightly PRN, Pramod Salinas MD Allergies: Allergies Allergen Reactions Amoxicillin Not Noted Augmentin- throat swelling Chlorhexidine Itching Other reaction(s): VESICLES IN SKIN Ciprofloxacin Not Noted Other reaction(s): ACUTE INTERSTITIAL NEPHRITIS Simvastatin Rash,Itching Sulfa Antibiotics Not Noted Tigecycline Itching,Hives Cefazolin Itching,Hives Cephalexin Itching Niacin Not Noted Other reaction(s): FLUSHING Sulfamethoxazole-Trimethoprim Itching Acute interstitial nephritis Bee Venom Rash Tape (Adhesive & Tape) Not Noted Triamcinolone Rash Vancomycin Itching Intolerance No active intolerances/contraindications Physical Exam: BP 129/78 | Pulse 78 | Temp 35.8 C (96.4 F) (Axillary) | Resp 16 | SpO2 98% Gen: Alert, sitting in bed, NAD HEENT: Head normocephalic. Mucosa moist. Pupils reactive to light. RESPIRATORY: Breathing comfortably. On auscultation lungs are clear, without retractions or adventitious sounds. CARDIOVASCULAR: Cardiac auscultation reveals irregular rate and rhythm. Edema-none. CHEST: Nontender. GASTROINTESTINAL: Abdomen soft with active bowel sounds present. No abnormal masses or ten derness. MUSCULOSKELETAL: Extremities symmetric. Range of motion stable. NEUROLOGIC: Awake, alert, and oriented to person, place, situation and year, but not exact date. Follows basic commands and tracks past midline. Decreased short-term memory that improved some with cues. Full high level cognitive testin g deferred. PSYCHIATRIC: Mood and affect blunted.. Judgement/insight impaired CRANIAL NERVES: Dysphagia; left facial weakness; mild decreased hearing and vision to scree n. Otherwise Intact to screen. NEUROMUSCULOSKELETAL: Normal tone and decreased bullk. Strength testing shows diffuse mild weakness in right upper and right lower extremity for age and habitus. Weakness is slightly greater distally. Moderate weakness proximally and marked weakness distally in left upper and left lower extr emity especially of the left hand and ankle and toe dorsiflexors. There is a left-sided dyspraxia as well as left-sided neglect with functional activity note d. Sensation is intact to confrontation over the upper extremities trunk and proximal lower ex tremities. It is diminished to confrontation over lower calves and feet. Vibration sense and position sense are diminished in the feet. DTRs symmetric and diminished throughout. Plantar responses upgoing on the left and withdrawal on the right Labs: Reviewed and discussed with his nurse. He is having a flareup of his AK I. We are pushing fluids and following up. Current blood sugars are running primarily in the low to mid 100s. This is encouraging given his recent severe poorly controlled diabetes. Assessment and Rehab Plan: . The patient is benefiting from inpatient rehabilitation : Physiatric and nursing interv ention; physical therapy, occupational therapy, speech therapy, case management, and social media assistant #Rehab - -Continue PT for gait, mobility -Continue OT for ADL's, toileting, adaptive equipment -Continue FOOT CASTER for cognition, swallow -Continue SW for discharge planning IMPRESSION : 1. Principal rehabilitation impairment : Acute nondominant side left hemiparesis 2. Etiologic diagnosis : Acute right-sided ischemic infarction in the region of the right insula 3. Dysphagia 4. Neurogenic bladder 5. Neurogenic bowel 6. Left-sided neglect and left-sided dyspraxia Associated comorbidities : 7. Diabetes mellitus, insulin-dependent, poorly controlled, with glycohemoglobin of 10.5, with complications with 8. Diabetic peripheral neuropathy 9. Morbid obesity 10. Mild cognitive impairment, with history of 3 previous left-sided CVAs, with CT evidenc e of left focal encephalomalacia in the posterior left frontal parietal junction, left tempo ral lobe, and left insular cortex; superimposed on diffuse mild plus cerebral atrophy. 11. Chronic HIV disease, stable on medication currently 12. AK I, with elevated BUN of 35 and creatinine of 2.07, superimposed on chronic kidney d isease, stage III 13. Hypertension 14. Atrial fibrillation 15. Chronic diastolic congestive heart failure 16. RACHELLE, on CPAP at night 17. Dyslipidemia 18. BPH 19 severe debility 20. Adjustment disorder, with anxiety and depression 21. Psychosocial stressors #/GI - Increased risk of incontinence or constipation/ voiding problems -continue current bladder and bowel regimen #DVT Prevention: Mobility, edema control, TEDS, Lovenox #Diet - Active Orders Diet Diet consistent carb; dysphagia mechanical; nectar thick; Effective Now PLAN : I opine that the patient will benefit from our acute inpatient rehabilitation program to en sure patient's safety and maximize outcome prior to discharge. Reviewed recent diagnostic studies. Reviewed current medications, and addressed medication management. The patient is seen and evaluated on rounds. Laboratory data reviewed. As discussed above. We will follow-up. I reviewed status with patient's nurse and addressed current status, questions and issues. I reviewed status with patient's Rehabilitation therapist and addressed current status, qu estionsand issues. The initial rehab therapy evaluations and treatments are underway. We are orienting him to the program. I met with our patient and the bilingual patient support caseworker, and we reviewed the overall plan of care and p rojected discharge destination. Note: My Progress Notes document close and ongoing Physiatric involvement; hupo-il-pojh vi sits, professionally assessing the Patient, both Medically and Functionally, with the empha sis on the important interactions between our Patient's current clinical status, especially issues/barriers that may impact on the Rehabilitation Team's treatment and progress toward our medical and functional goals. I opine that this is important, so we will maximize our Patient's capacity to benefit from the Comprehensive Inpatient Medical Rehabilitation process. I will coordinate with the full team regarding the above plan and continue full rehabilitat ion program. Please see rehabilitation team notes. Reviewed current rehabilitation therapy treatment documentation, noting the patient's s tatus and tolerance. Rehabilitation therapy staff is continuing to coordinate and collaborate with the [facility]'s nursing staff to complement their therapy treatment focus, especially considering safet y factors as the patient is mobilized on the nursing unit. Respiratory therapy is following; 02 weaning with activity as tolerated. Hypertension/Hypotension. BP pattern being followed with activity. Continue to monitorBP to rule out any orthostatic problem. Bowel/Bladder Management. Continue routine bowel program including stool softeners and laxatives and as needed suppository/enema with current constipation; and continue routine b ladder program with void trial/bladder scanning for PVR's with IC as indicated. DVT Prophylaxis. Per protocol. I met with the full rehab team today in conference and reviewed the patient's recent comple x medical issues and is a very complicated medical history. We discussed the impact on the current rehab treatment focus. Rehabilitation. Continue early rehab therapy regimen as tolerated; therapy staff follo w closely to see if any fatigue complaints reported after therapy. I am directing the above issues, and coordinating with the patient's other physicians in this regards, considering relationships with the other medical co-morbidities, as well a s following up with the patient's bedside nurse, and bilingual patient support caseworker/social media assistant. Total time: 37 minutes. I spent greater than 50% of the time regarding patient care and co ordination of the Medical Rehabilitation Team treatment focus addressing these patient care needs on this date, including nursing unit/floor time, as well as time communicating with [facility] patient and treatment team as discussed above. Post- Admission Rehabilitation Physician Evaluation and Plan of Care: Inpatient Rehabilitation Post-admission note Sarthak Nelson is a 67 y.o. male. : 1950 Admit Date: 06/22/2018 Attending Provider: Pramod Salinas MD Admitting Diagnosis: CVA Compared to the preadmission screen, the patient is as described. Major discrepancies from pre-admission screen: None It is safe to initiate therapies. This admission is reasonable and necessary because of both medical and functional necessity . See H and P note dated 06/22/2018 for details, as well as Admitting Functional Status repo rted next. Admitting Functional Status: FIM BladderScore: 3 FIM Bowel Score: 5 FIM Bed/Chair/Wheelchair Score: 3 FIM Toilet Transfer Score: 2 FIM Tub/Shower Transfer Score: 2 FIM Walk Score: 1 FIM Distance Walked(feet): 3 ; FWW; max FIM Wheelchair Score: 1 FIM Stairs Score :0 FIM Eating Score: 4 FIM Grooming Score: 4 FIM Bathing Score: 2 FIM Dressing Upper Body Score: 3 FIM Dressing Lower Body Score: 2 FIM Toileting Score: 2 Prior functional status:The patient is in a one-story house in [facility] with his wi fe. There is a ramp installed and otherwise there are 6 steps to enter the building. 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 He also served in the [employer] for 3-1/2 years. He is independent with his basic self-care skills and ambulates in the house independently. In the community ambulance with a four-wheel walker, about 50 75 steps limited by being tired or short of breath. He uses CPAP at night but does not use oxygen otherwise. His has health problems are due to arthritis causing pain in her back and hips. Functional History: PRIOR FUNCTION: See above. Otherwise the Patient was independent in mobility, self-care, swallowing, bladder/bowel, communication, cognition. Medical History: See H&P note dated 06/22/2018 Patient's condition on admission: See H&P note dated 06/22/2018 Physical Exam: See H&P note dated 06/22/2018 Clinical complications and medical conditions the patient is at risk for d/t comorbidities and rigors of the intensive rehab program with the specific plan to avoid them: See H&P note dated 06/22/2018 Functional Goals: Mod I bed mobility Mod I transfers Mod I >150 feet gait with FWW Mod I UE dressing Mod I LE dressing Mod I 6 steps Mod I toileting Mod I toileting transfers Continent of bowel and bladder Patient Active Problem List Diagnosis Ischemic cerebrovascular accident (CVA) IDDM (insulin dependent diabetes mellitus) HTN (hypertension) CKD (chronic kidney disease) HIV (human immunodeficiency virus infection) ADMIT PLAN OF CARE Plan of Care: The patient is admitted for a course of Comprehensive Inpatient Medical Rehabilitation Serv ices. I opine that from an objective medical perspective these services are both reasonable and necessary. This includes 24-hour Physician supervision and direction of all medical an d rehabilitation care. The patient's functional status on admission to Inpatient Rehab is different and has decli alicia compared to premorbid status. The current functional status is similar as that document ed in Preadmission screen. Specific plans are as follows: See orders Precautions: Medical stability and clearance for full Rehab, including Aspiration/Fall/Safety precaution s. See the above H+P Assessments and Comments. Rehabilitation Nursing Coordinate with Rehab therapies as we carry over and continue the Rehabilitation Skill tra ining from the Rehab Clinic to the Nursing Unit. Address, treat and train the patient and family/caregivers: Medication indication and santa gement, bowel and bladder, and coordination with the Electro Plater management medical comorbid ities. Therapies: Physical Therapy (1-1 Y2 hours daily at least 6 days per week) Occupational Therapy (1- 1 Y2 hours daily at least 6 days per week) Speech Therapy ( 1 hours daily at least 5 days per week) Respiratory Therapy (evaluate and treat as appropriate, including coordinating with P.T., O .T. and Nursing as we follow the patient's blood pressure, heart rate, and pulse oximetry a s we advance the intensity of the Comprehensive Medical Rehabilitation Program.) Clinical Harness Repairer Pharmacist Goals: Medical stability and safety with function to allow discharge to the community at the optim al level of function. Current goals include medication management and administration, appro priate diet and.nutrition,' optimal management of bowel and bladder, addressing and minimizi ng pain problems, facilitating mood and affect. Also addressing any problems with Nutrition , Dysphagia, Activities of Daily Living, transfers and safety negotiating the environment. Family/caregiver training and evaluation for adaptive equipment, continue and educate/blayne mmend medical care co-morbidities will be included as program is advanced. Specific short-term and long-term Rehabilitation Team Treatment Goals will be developed, sy nthesized and implemented in collaboration with our patient and family/caregivers. The Civil Litigation Attorney is the church Rehab trampoline team coach interfacing with them. Rehab potential is good. Estimated length of stay: 14 days. Discharge Plan: Discharge to premorbid independent living setting with the supportive car e of family/caregivers and community resources. Signed: Pramod Salinas MD 06/23/2018 12:34 Portions of this chart may have been created with Weft voice recognition software. Occasi onal wrong-word or sound-alike substitutions may have occurred due to the inherent gupta itations of voice recognition software. Please read the chart carefully and recognize, using context, where these substitutions have occurred. documented in this encounter Plan of Treatment Not on filedocumented as of this encounter Procedures + +--------+ + + + | Procedure Name | Priori | Date/Time | Associated Diagnosis | Comments | | | ty | | | | + +--------+ + + + | POC GLUCOSE | Routin | 07/01/2018 | | Results for this | | | e | 11:35 AM | | procedure are in the | | | | PDT | | results section. | + +--------+ + + + | POC GLUCOSE | Routin | 07/01/2018 | | Results for this | | | e | 6:20 AM | | procedure are in the | | | | PDT | | results section. | + +--------+ + + + | POC GLUCOSE | Routin | 06/30/2018 | | Results for this | | | e | 8:33 PM | | procedure are in the | | | | PDT | | results section. | + +--------+ + + + | POC GLUCOSE | Routin | 06/30/2018 | | Results for this | | | e | 4:13 PM | | procedure are in the | | | | PDT | | results section. | + +--------+ + + + | POC GLUCOSE | Routin | 06/30/2018 | | Results for this | | | e | 11:47 AM | | procedure are in the | | | | PDT | | results section. | + +--------+ + + + | POC GLUCOSE | Routin | 06/30/2018 | | Results for this | | | e | 6:43 AM | | procedure are in the | | | | PDT | | results section. | + +--------+ + + + | POC GLUCOSE | Routin | 06/29/2018 | | Results for this | | | e | 8:03 PM | | procedure are in the | | | | PDT | | results section. | + +--------+ + + + | POC GLUCOSE | Routin | 06/29/2018 | | Results for this | | | e | 4:46 PM | | procedure are in the | | | | PDT | | results section. | + +--------+ + + + | POC GLUCOSE | Routin | 06/29/2018 | | Results for this | | | e | 11:18 AM | | procedure are in the | | | | PDT | | results section. | + +--------+ + + + | FL VIDEO SWALLOW W | Routin | 06/29/2018 | | Results for this | | SPEECH | e | 9:27 AM | | procedure are in the | | | | PDT | | results section. | + +--------+ + + + | POC GLUCOSE | Routin | 06/29/2018 | | Results for this | | | e | 6:42 AM | | procedure are in the | | | | PDT | | results section. | + +--------+ + + + | POC GLUCOSE | Routin | 06/28/2018 | | Results for this | | | e | 9:14 PM | | procedure are in the | | | | PDT | | results section. | + +--------+ + + + | POC GLUCOSE | Routin | 06/28/2018 | | Results for this | | | e | 5:07 PM | | procedure are in the | | | | PDT | | results section. | + +--------+ + + + | POC GLUCOSE | Routin | 06/28/2018 | | Results for this | | | e | 12:06 PM | | procedure are in the | | | | PDT | | results section. | + +--------+ + + + | CBC WITH | Routin | 06/28/2018 | | Results for this | | DIFFERENTIAL | e | 6:14 AM | | procedure are in the | | | | PDT | | results section. | + +--------+ + + + | BASIC METABOLIC | Routin | 06/28/2018 | | Results for this | | PANEL | e | 6:14 AM | | procedure are in the | | | | PDT | | results section. | + +--------+ + + + | POC GLUCOSE | Routin | 06/27/2018 | | Results for this | | | e | 8:51 PM | | procedure are in the | | | | PDT | | results section. | + +--------+ + + + | POC GLUCOSE | Routin | 06/27/2018 | | Results for this | | | e | 5:32 PM | | procedure are in the | | | | PDT | | results section. | + +--------+ + + + | POC GLUCOSE | Routin | 06/27/2018 | | Results for this | | | e | 12:01 PM | | procedure are in the | | | | PDT | | results section. | + +--------+ + + + | POC GLUCOSE | Routin | 06/27/2018 | | Results for this | | | e | 6:06 AM | | procedure are in the | | | | PDT | | results section. | + +--------+ + + + | POC GLUCOSE | Routin | 06/26/2018 | | Results for this | | | e | 8:19 PM | | procedure are in the | | | | PDT | | results section. | + +--------+ + + + | POC GLUCOSE | Routin | 06/26/2018 | | Results for this | | | e | 5:17 PM | | procedure are in the | | | | PDT | | results section. | + +--------+ + + + | XR FOREARM LEFT 2 VW | Routin | 06/26/2018 | | Results for this | | | e | 3:48 PM | | procedure are in the | | | | PDT | | results section. | + +--------+ + + + | POC GLUCOSE | Routin | 06/26/2018 | | Results for this | | | e | 12:05 PM | | procedure are in the | | | | PDT | | results section. | + +--------+ + + + | POC GLUCOSE | Routin | 06/26/2018 | | Results for this | | | e | 5:49 AM | | procedure are in the | | | | PDT | | results section. | + +--------+ + + + | POC GLUCOSE | Routin | 06/25/2018 | | Results for this | | | e | 8:49 PM | | procedure are in the | | | | PDT | | results section. | + +--------+ + + + | POC GLUCOSE | Routin | 06/25/2018 | | Results for this | | | e | 4:56 PM | | procedure are in the | | | | PDT | | results section. | + +--------+ + + + | POC GLUCOSE | Routin | 06/25/2018 | | Results for this | | | e | 12:22 PM | | procedure are in the | | | | PDT | | results section. | + +--------+ + + + | POC GLUCOSE | Routin | 06/25/2018 | | Results for this | | | e | 11:41 AM | | procedure are in the | | | | PDT | | results section. | + +--------+ + + + | POC GLUCOSE | Routin | 06/25/2018 | | Results for this | | | e | 6:27 AM | | procedure are in the | | | | PDT | | results section. | + +--------+ + + + | POC GLUCOSE | Routin | 06/24/2018 | | Results for this | | | e | 8:16 PM | | procedure are in the | | | | PDT | | results section. | + +--------+ + + + | POC GLUCOSE | Routin | 06/24/2018 | | Results for this | | | e | 4:51 PM | | procedure are in the | | | | PDT | | results section. | + +--------+ + + + | POC GLUCOSE | Routin | 06/24/2018 | | Results for this | | | e | 11:31 AM | | procedure are in the | | | | PDT | | results section. | + +--------+ + + + | POC GLUCOSE | Routin | 06/24/2018 | | Results for this | | | e | 6:05 AM | | procedure are in the | | | | PDT | | results section. | + +--------+ + + + | POC GLUCOSE | Routin | 06/23/2018 | | Results for this | | | e | 8:34 PM | | procedure are in the | | | | PDT | | results section. | + +--------+ + + + | POC GLUCOSE | Routin | 06/23/2018 | | Results for this | | | e | 4:31 PM | | procedure are in the | | | | PDT | | results section. | + +--------+ + + + | POC GLUCOSE | Routin | 06/23/2018 | | Results for this | | | e | 12:09 PM | | procedure are in the | | | | PDT | | results section. | + +--------+ + + + | POC GLUCOSE | Routin | 06/23/2018 | | Results for this | | | e | 7:06 AM | | procedure are in the | | | | PDT | | results section. | + +--------+ + + + | CBC WITH | Routin | 06/23/2018 | | Results for this | | DIFFERENTIAL | e | 5:27 AM | | procedure are in the | | | | PDT | | results section. | + +--------+ + + + | PREALBUMIN | Routin | 06/23/2018 | | Results for this | | | e | 5:27 AM | | procedure are in the | | | | PDT | | results section. | + +--------+ + + + | B TYPE NATRIURETIC | Routin | 06/23/2018 | | Results for this | | PEPTIDE | e | 5:27 AM | | procedure are in the | | | | PDT | | results section. | + +--------+ + + + | COMPREHENSIVE | Routin | 06/23/2018 | | Results for this | | METABOLIC PANEL | e | 5:27 AM | | procedure are in the | | | | PDT | | results section. | + +--------+ + + + | POC GLUCOSE | Routin | 06/22/2018 | | Results for this | | | e | 10:33 PM | | procedure are in the | | | | PDT | | results section. | + +--------+ + + + | IMAGING REPORT - | | 06/19/2018 | | Results for this | | EXTERNAL SCAN | | 12:00 AM | | procedure are in the | | | | PDT | | results section. | + +--------+ + + + | LABS - EXTERNAL SCAN | | 06/19/2018 | | Results for this | | | | 12:00 AM | | procedure are in the | | | | PDT | | results section. | + +--------+ + + + | ECG - EXTERNAL SCAN | | 06/19/2018 | | Results for this | | | | 12:00 AM | | procedure are in the | | | | PDT | | results section. | + +--------+ + + + documented in this encounter Results POC Glucose (07/01/2018 11:35 AM PDT) + +---------+ + + + | Component | Value | Ref Range | Performed | Pathologist | | | | | At | Signature | + +---------+ + + + | Glucose, | 189 (H) | 70 - 109 mg/dL | [facility] | | | | | [facility] | | | | | | [facility] - | | | | | | LABORATORY | | + +---------+ + + + + + | Specimen | + + | Blood | + + + + + + + | Performing | Address | City/State/Zipcode | Phone Number | | Organization | | | | + + + + + | [facility] | [address] | [place] | [phone] | | [facility] | | [address] | | | - LABORATORY | | | | + + + + + POC Glucose (07/01/2018 6:20 AM PDT) + +-------+ + + + | Component | Value | Ref Range | Performed | Pathologist | | | | | At | Signature | + +-------+ + + + | Glucose, | 106 | 70 - 109 mg/dL | [facility] | [facility] | | | | | | [facility] | | | | | | C[facility] - | | | | | | LABORATORY | | + +-------+ + + + + + | Specimen | + + | Blood | + + + + + + + | Performing | Address | City/State/Zipcode | Phone Number | | Organization | | | | + + + + + | [facility] | [address] | [place] | [phone] | | [facility] | | [address] | | | - LABORATORY | | | | + + + + + POC Glucose (06/30/2018 8:33 PM PDT) + +-------+ + + + | Component | Value | Ref Range | Performed | Pathologist | | | | | At | Signature | + +-------+ + + + | Glucose, | 80 | 70 - 109 mg/dL | [facility] | [facility] | | | | | | [facility] | | | | | | [facility] - | | | | | | LABORATORY | | + +-------+ + + + + + | Specimen | + + | Blood | + + + + + + + | Performing | Address | City/State/Zipcode | Phone Number | | Organization | | | | + + + + + | [facility] | [address] | [place] | [phone] | | [facility] | | [address] | | | - LABORATORY | | | | + + + + + POC Glucose (06/30/2018 4:13 PM PDT) + +-------+ + + + | Component | Value | Ref Range | Performed | Pathologist | | | | | At | Signature | + +-------+ + + + | Glucose, | 91 | 70 - 109 mg/dL | [facility] | | | | | | [facility] | | | | | | CENTER - | | | | | | LABORATORY | | + +-------+ + + + + + | Specimen | + + | Blood | + + + + + + + | Performing | Address | City/State/Zipcode | Phone Number | | Organization | | | | + + + + + | [facility] | [address] | [place] | [phone] | | [facility] | | [address] | | | - LABORATORY | | | | + + + + + POC Glucose (06/30/2018 11:47 AM PDT) + +---------+ + + + | Component | Value | Ref Range | Performed | Pathologist | | | | | At | Signature | + +---------+ + + + | Glucose, | 154 (H) | 70 - 109 mg/dL | [facility] | | [facility] | | | [facility] | | | | | | [facility] | | | | | | CENTER - | | | | | | LABORATORY | | + +---------+ + + + + + | Specimen | + + | Blood | + + + + + + + | Performing | Address | City/State/Zipcode | Phone Number | | Organization | | | | + + + + + | [facility] | [address] | [place] | [phone] | | [facility] | | [address] | | | - LABORATORY | | | | + + + + + POC Glucose (06/30/2018 6:43 AM PDT) + +---------+ + + + | Component | Value | Ref Range | Performed | Pathologist | | | | | At | Signature | + +---------+ + + + | Glucose, | 121 (H) | 70 - 109 mg/dL | [facility] | [facility] | | [facility] | | | | | | MEDICAL | | | | | | CENTER - | | | | | | LABORATORY | | + +---------+ + + + + + | Specimen | + + | Blood | + + + + + + + | Performing | Address | City/State/Zipcode | Phone Number | | Organization | | | | + + + + + | [facility] | [address] | [place] | [phone] | | [facility] | | [address] | | | - LABORATORY | | | | + + + + + POC Glucose (06/29/2018 8:03 PM PDT) + +---------+ + + + | Component | Value | Ref Range | Performed | Pathologist | | | | | At | Signature | + +---------+ + + + | Glucose, | 174 (H) | 70 - 109 mg/dL | [facility] | [facility] | | [facility] | | | | | | MEDICAL | | | | | | CENTER - | | | | | | LABORATORY | | + +---------+ + + + + + | Specimen | + + | Blood | + + + + + + + | Performing | Address | City/State/Zipcode | Phone Number | | Organization | | | | + + + + + | [facility] | [address] | [place] | [phone] | | [facility] | | [address] | | | - LABORATORY | | | | + + + + + POC Glucose (06/29/2018 4:46 PM PDT) + +---------+ + + + | Component | Value | Ref Range | Performed | Pathologist | | | | | At | Signature | + +---------+ + + + | Glucose, | 126 (H) | 70 - 109 mg/dL | [facility] | [facility] | | | | | | [facility]ICAL | | | | | | CENTER - | | | | | | LABORATORY | | + +---------+ + + + + + | Specimen | + + | Blood | + + + + + + + | Performing | Address | City/State/Zipcode | Phone Number | | Organization | | | | + + + + + | [facility] | [address] | [place] | [phone] | | [facility] | | [address] | | | - LABORATORY | | | | + + + + + POC Glucose (06/29/2018 11:18 AM PDT) + +---------+ + + + | Component | Value | Ref Range | Performed | Pathologist | | | | | At | Signature | + +---------+ + + + | Glucose, | 140 (H) | 70 - 109 mg/dL | [facility] | | | | | | [facility] | | | | | | CENTER - | | | | | | LABORATORY | | + +---------+ + + + + + | Specimen | + + | Blood | + + + + + + + | Performing | Address | City/State/Zipcode | Phone Number | | Organization | | | | + + + + + | [facility] | [address] | [place] | [phone] | | [facility] | | [address] | | | - LABORATORY | | | | + + + + + FL Video Swallow w Speech (06/29/2018 9:27 AM PDT) + + | Specimen | + + | | + + + + + | Narrative | Performed At | + + + | MODIFIED BARIUM SWALLOW 06/29/2018 9:05 AM CLINICAL HISTORY: | [facility] | | Determine cause/severity of dysphagia s/p CVA COMPARISON: None | | | available TECHNIQUE: In the upright position, the patient was | | | challenged with various barium laden foods. Fluoroscopy was | | | utilized to evaluate swallow function. The exam was directed by the | | | speech therapist. FINDINGS: Reduced lateral mastication pattern | | | was noted, with trace coating of oral structures. There was | | | intermittent loss of bolus control with nectar thick liquid by cup. | | | Trace penetration to the vocal folds was noted with nectar thick | | | liquid and thin liquid by cup. Less penetration was observed with | | | smaller sips. There was adequate hyoid excursion but reduced | | | elevation. Swallow trigger was noted at the level of the piriform | | | sinuses with large sips of thin liquids. There was trace aspiration | | | of thin liquid via straw, with cough reflex. IMPRESSION - 1. | | | MILD TO MODERATE SWALLOWING IMPAIRMENT WITH RISK FOR ASPIRATION. | | | PLEASE SEE THE SPEECH THERAPY REPORT FOR FURTHER DETAILS. | | | Dictated and Signed by: Edmond Caruso MD Electronically signed: | | | 06/29/2018 10:59 AM | | + + + + + | Procedure Note | + + | Jose Luis, Rad Results In - 06/29/2018 11:02 AM PDT MODIFIED BARIUM SWALLOW 06/29/2018 | | 9:05 AMCLINICAL HISTORY: Determine cause/severity of dysphagia s/p CVACOMPARISON: None | | availableTECHNIQUE: In the upright position, the patient was challenged with | | variousbarium laden foods. Fluoroscopy was utilized to evaluate swallow function. | | Theexam was directed by the speech therapist.FINDINGS: Reduced lateral mastication | | pattern was noted, with trace coating oforal structures. There was intermittent loss of | | bolus control with nectar thickliquid by cup. Trace penetration to the vocal folds was | | noted with nectar thickliquid and thin liquid by cup. Less penetration was observed | | with smaller sips. There was adequate hyoid excursion but reduced elevation. Swallow | | trigger wasnoted at the level of the piriform sinuses with large sips of thin liquids. | | There was trace aspiration of thin liquid via straw, with cough reflex.IMPRESSION -1. | | MILD TO MODERATE SWALLOWING IMPAIRMENT WITH RISK FOR ASPIRATION. PLEASESEE THE SPEECH | | THERAPY REPORT FOR FURTHER DETAILS.Dictated and Signed by: Edmond Caruso MD | | Electronically signed: 06/29/2018 10:59 AM | | There was adequate hyoid excursion but reduced elevation. Swallow trigger was | |noted at the level of the piriform sinuses with large sips of thin liquids. | |There was trace aspiration of thin liquid via straw, with cough reflex. | | | |IMPRESSION - | |1. MILD TO MODERATE SWALLOWING IMPAIRMENT WITH RISK FOR ASPIRATION. PLEASE | |SEE THE SPEECH THERAPY REPORT FOR FURTHER DETAILS. | | | |Dictated and Signed by: Edmond Caruso MD | | Electronically signed: 06/29/2018 10:59 AM | + + + +---------+ + + | Performing | Address | City/State/Zipcode | Phone Number | | Organization | | | | + +---------+ + + | [facility] | | | | + +---------+ + + POC Glucose (06/29/2018 6:42 AM PDT) + +---------+ + + + | Component | Value | Ref Range | Performed | Pathologist | | | | | At | Signature | + +---------+ + + + | Glucose, | 143 (H) | 70 - 109 mg/dL | [facility] | | | | | | [facility] | | | | | | CENTER - | | | | | | LABORATORY | | + +---------+ + + + + + | Specimen | + + | Blood | + + + + + + + | Performing | Address | City/State/Zipcode | Phone Number | | Organization | | | | + + + + + | [facility] | [address] | [place] | [phone] | | [facility] | | [address] | | | - LABORATORY | | | | + + + + + POC Glucose (06/28/2018 9:14 PM PDT) + +---------+ + + + | Component | Value | Ref Range | Performed | Pathologist | | | | | At | Signature | + +---------+ + + + | Glucose, | 194 (H) | 70 - 109 mg/dL | [facility] | | | [facility] | | [facility] | | | | | | [facility] | | | | | | CENTER - | | | | | | LABORATORY | | + +---------+ + + + + + | Specimen | + + | Blood | + + + + + + + | Performing | Address | City/State/Zipcode | Phone Number | | Organization | | | | + + + + + | [facility] | [address] | [place] | [phone] | | [facility] | | [address] | | | - LABORATORY | | | | + + + + + POC Glucose (06/28/2018 5:07 PM PDT) + +---------+ + + + | Component | Value | Ref Range | Performed | Pathologist | | | | | At | Signature | + +---------+ + + + | Glucose, | 127 (H) | 70 - 109 mg/dL | [facility] | | | [facility] | | [facility] | | | | | | [facility] | | | | | | CENTER - | | | | | | LABORATORY | | + +---------+ + + + + + | Specimen | + + | Blood | + + + + + + + | Performing | Address | City/State/Zipcode | Phone Number | | Organization | | | | + + + + + | [facility] | [address] | [place] | [phone] | | [facility] | | [address] | | | - LABORATORY | | | | + + + + + POC Glucose (06/28/2018 12:06 PM PDT) + +---------+ + + + | Component | Value | Ref Range | Performed | Pathologist | | | | | At | Signature | + +---------+ + + + | Glucose, | 126 (H) | 70 - 109 mg/dL | [facility] | [facility] | [facility] | | | | | | [facility] | | | | | | [facility] - | | | | | | LABORATORY | | + +---------+ + + + + + | Specimen | + + | Blood | + + + + + + + | Performing | Address | City/State/Zipcode | Phone Number | | Organization | | | | + + + + + | [facility] | [address] | [place] | [phone] | | [facility] | | [address] | | | - LABORATORY | | | | + + + + + CBC with Differential (06/28/2018 6:14 AM PDT) + + + + + + | Component | Value | Ref Range | Performed | Pathologist | | | | | At | Signature | + + + + + + | WBC | 9.9 | 4.0 - 11.0 K/uL | [facility] | | | | | | [facility] | | | | | | MEDICAL | | | | | | CENTER - | | | | | | LABORATORY | | + + + + + + | RBC | 5.40 | 4.30 - 5.70 | [facility] | | | | | M/uL | [facility] | | | | | | MEDICAL | | | | | | CENTER - | | | | | | LABORATORY | | + + + + + + | Hemoglobin | 16.2 | 13.5 - 18.0 | [facility] | | | | | g/dL | [facility] | | | | | | MEDICAL | | | | | | CENTER - | | | | | | LABORATORY | | + + + + + + | Hematocrit | 49.1 | 40.0 - 51.0 % | [facility] | | | | | | [facility] | | | | | | [facility] | | | | | | CENTER - | | | | | | LABORATORY | | + + + + + + | MCV | 90.9 | 83.0 - 101.0 fL | [facility] | | | | | | [facility] | | | | | | MEDICAL | | | | | | CENTER - | | | | | | LABORATORY | | + + + + + + | MCH | 30.0 | 28.0 - 35.0 pg | [facility] | | | | | | [facility] | | | | | | MEDICAL | | | | | | CENTER - | | | | | | LABORATORY | | + + + + + + | MCHC | 33.0 | 32.0 - 36.0 | [facility] | | | | | g/dL | [facility] | | | | | | MEDICAL | | | | | | CENTER - | | | | | | LABORATORY | | + + + + + + | RDW-CV | 16.3 (H) | <15.0 % | [facility] | | | | | | [facility] | | | | | | MEDICAL | | | | | | CENTER - | | | | | | LABORATORY | | + + + + + + | RDW-SD | 53.9 (H) | 35.1 - 46.3 fL | [facility] | | | | | | [facility] | | | | | | MEDICAL | | | | | | CENTER - | | | | | | LABORATORY | | + + + + + + | Platelet | 319 | 140 - 440 K/uL | [facility] | | | Count | | | [facility] | | | | | | MEDICAL | | | | | | CENTER - | | | | | | LABORATORY | | + + + + + + | MPV | 11.7 | 6.5 - 12.4 fL | [facility] | | | | | | [facility] | | | | | | MEDICAL | | | | | | CENTER - | | | | | | LABORATORY | | + + + + + + | % | 47.2 | 45.0 - 82.0 % | [facility] | | | Neutrophils | | | [facility] | | | | | | MEDICAL | | | | | | CENTER - | | | | | | LABORATORY | | + + + + + + | % | 37.4 | 20.0 - 45.0 % | [facility] | | | Lymphocytes | | | [facility] | | | | | | MEDICAL | | | | | | CENTER - | | | | | | LABORATORY | | + + + + + + | % Monocytes | 10.0 | 4.0 - 12.0 % | [facility] | | | | | | [facility] | | | | | | MEDICAL | | | | | | CENTER - | | | | | | LABORATORY | | + + + + + + | % | 3.6 | 0.0 - 5.0 % | [facility] | | | Eosinophils | | | [facility] | | | | | | MEDICAL | | | | | | CENTER - | | | | | | LABORATORY | | + + + + + + | % Basophils | 0.9 | 0.0 - 1.0 % | [facility] | | | | | | [facility] | | | | | | MEDICAL | | | | | | CENTER - | | | | | | LABORATORY | | + + + + + + | % Immature | 0.9 (H)Comment: | 0.0 - 0.4 % | [facility] | | | Granulocyte | Preliminary studIes have | | [facility] | | | s | indicated the IG% | | MEDICAL | | | | and/or IG# show promise | | CENTER - | | | | as an early screen for | | LABORATORY | | | | infection. | | | | + + + + + + | Absolute | 4.66 | 1.80 - 8.50 | [facility] | | | Neutrophils | | K/uL | [facility] | | | | | | MEDICAL | | | | | | CENTER - | | | | | | LABORATORY | | + + + + + + | Absolute | 3.70 (H) | 0.60 - 3.20 | [facility] | | | Lymphocytes | | K/uL | [facility] | | | | | | MEDICAL | | | | | | CENTER - | | | | | | LABORATORY | | + + + + + + | Absolute | 0.99 | 0.00 - 1.00 | [facility] | | | Monocytes | | K/uL | [facility] | | | | | | MEDICAL | | | | | | CENTER - | | | | | | LABORATORY | | + + + + + + | Absolute | 0.36 | 0.00 - 0.40 | [facility] | | | Eosinophils | | K/uL | [facility] | | | | | | MEDICAL | | | | | | CENTER - | | | | | | LABORATORY | | + + + + + + | Absolute | 0.09 | 0.00 - 0.10 | [facility] | | | Basophils | | K/uL | [facility] | | | | | | MEDICAL | | | | | | CENTER - | | | | | | LABORATORY | | + + + + + + | Absolute | 0.09 (H) | 0.00 - 0.03 | [facility] | | | Immature | | K/uL | [facility] | | | Granulocyte | | | MEDICAL | | | s | | | CENTER - | | | | | | LABORATORY | | + + + + + + | % nRBC | 0 | 0 - 2 per 100 | [facility] | | | | | WBC's | [facility] | | | | | | MEDICAL | | | | | | CENTER - | | | | | | LABORATORY | | + + + + + + | Absolute | 0.00 | 0.00 - 0.01 | [facility] | | | nRBC | | K/uL | [facility] | | | | | | MEDICAL | | | | | | CENTER - | | | | | | LABORATORY | | + + + + + + + + | Specimen | + + | Blood | + + + + + + + | Performing | Address | City/State/Zipcode | Phone Number | | Organization | | | | + + + + + | [facility] | [address] | [place] | [phone] | | [facility] | | [address] | | | - LABORATORY | | | | + + + + + Basic Metabolic Panel (06/28/2018 6:14 AM PDT) + + + + + + | Component | Value | Ref Range | Performed | Pathologist | | | | | At | Signature | + + + + + + | Na | 136 | 136 - 149 | [facility] | | | | | mmol/L | [facility] | | | | | | MEDICAL | | | | | | CENTER - | | | | | | LABORATORY | | + + + + + + | K | 3.9 | 3.5 - 5.1 | [facility] | | | | | mmol/L | [facility] | | | | | | MEDICAL | | | | | | CENTER - | | | | | | LABORATORY | | + + + + + + | Cl | 105 | 98 - 109 mmol/L | [facility] | | | | | | [facility] | | | | | | MEDICAL | | | | | | CENTER - | | | | | | LABORATORY | | + + + + + + | CO2 | 24 | 24 - 31 mmol/L | [facility] | | | [facility] | [facility] | | [facility] | [facility] | | | | | | [facility] - | | | | | | LABORATORY | | + + + + + + | Anion Gap | 7 | 3 - 16 mmol/L | [facility] | | | [facility] | [facility] | | | | | | [facility] - | | | | | | LABORATORY | | + + + + + + | Glucose | 141 (H) | 70 - 109 mg/dL | [facility] | | | | [facility] | [facility] | | | | | | [facility] | | | | | | [facility] - | | | | | | LABORATORY | | + + + + + + | BUN | 35 (H) | 7 - 18 mg/dL | [facility] | | | | | | [facility] | | | | | | [facility] | | | | | | [facility] - | | | | | | LABORATORY | | + + + + + + | Creatinine | 1.96 (H) | 0.60 - 1.30 | [facility] | | | | | mg/dL | [facility] | | | | | | [facility] | | | | | | [facility] - | | | | | | LABORATORY | | + + + + + + | eGFR if not | 34 (L)Comment: | >=60 | [facility] | | | | GLOMERULAR FILTRATION | mL/min/1.73m2 | [facility] | | | [facility] | RATE,ESTIMATED | | MEDICAL | | | | mL/min/1.44u8Uzvh than | | CENTER - | | | | 60 Chronic kidney | | LABORATORY | | | | disease,if found over a | | | | | | 3-month period.Less than | | | | | | 15 Kidney failureFor | | | | | | | | | | | | Americans,multiply the | | | | | | calculated GFR by 1.21. | | | | | | | | | | + + + + + + | Calcium | 9.1 | 8.3 - 10.5 | [facility] | | | | | mg/dL | [facility] | | | | | | [facility] | | | | | | CENTER - | | | | | | LABORATORY | | + + + + + + | BUN/Creatin | 17.9 | | [facility] | | | ine Ratio | | | [facility] | | | | | | [facility] | | | | | | CENTER - | | | | | | LABORATORY | | + + + + + + + + | Specimen | + + | Blood | + + + + + + + | Performing | Address | City/State/Zipcode | Phone Number | | Organization | | | | + + + + + | [facility] | [address] | [place] | [phone] | | [facility] | | [address] | | | - LABORATORY | | | | + + + + + POC Glucose (06/27/2018 8:51 PM PDT) + +---------+ + + + | Component | Value | Ref Range | Performed | Pathologist | | | | | At | Signature | + +---------+ + + + | Glucose, | 136 (H) | 70 - 109 mg/dL | [facility] | | | POC | | | [facility] | | | | | | [facility]ICAL | | | | | | CENTER - | | | | | | LABORATORY | | + +---------+ + + + + + | Specimen | + + | Blood | + + + + + + + | Performing | Address | City/State/Zipcode | Phone Number | | Organization | | | | + + + + + | [facility] | [address] | [place] | [phone] | | [facility] | | [address] | | | - LABORATORY | | | | + + + + + POC Glucose (06/27/2018 5:32 PM PDT) + +---------+ + + + | Component | Value | Ref Range | Performed | Pathologist | | | | | At | Signature | + +---------+ + + + | Glucose, | 116 (H) | 70 - 109 mg/dL | [facility] | | | P[facility] | | | [facility] | | | | | | [facility] | | | | | | CENTER - | | | | | | LABORATORY | | + +---------+ + + + + + | Specimen | + + | Blood | + + + + + + + | Performing | Address | City/State/Zipcode | Phone Number | | Organization | | | | + + + + + | [facility] | [address] | [place] | [phone] | | [facility] | | [address] | | | - LABORATORY | | | | + + + + + POC Glucose (06/27/2018 12:01 PM PDT) + +---------+ + + + | Component | Value | Ref Range | Performed | Pathologist | | | | | At | Signature | + +---------+ + + + | Glucose, | 140 (H) | 70 - 109 mg/dL | [facility] | | | POC | | | [facility] | | | | | | MEDICAL | | | | | | CENTER - | | | | | | LABORATORY | | + +---------+ + + + + + | Specimen | + + | Blood | + + + + + + + | Performing | Address | City/State/Zipcode | Phone Number | | Organization | | | | + + + + + | [facility] | [address] | [place] | [phone] | | [facility] | | [address] | | | - LABORATORY | | | | + + + + + POC Glucose (06/27/2018 6:06 AM PDT) + +---------+ + + + | Component | Value | Ref Range | Performed | Pathologist | | | | | At | Signature | + +---------+ + + + | Glucose, | 127 (H) | 70 - 109 mg/dL | [facility] | | | POC | | | [facility] | | | | | | [facility]ICAL | | | | | | CENTER - | | | | | | LABORATORY | | + +---------+ + + + + + | Specimen | + + | Blood | + + + + + + + | Performing | Address | City/State/Zipcode | Phone Number | | Organization | | | | + + + + + | [facility] | [address] | [place] | [phone] | | [facility] | | [address] | | | - LABORATORY | | | | + + + + + POC Glucose (06/26/2018 8:19 PM PDT) + +---------+ + + + | Component | Value | Ref Range | Performed | Pathologist | | | | | At | Signature | + +---------+ + + + | Glucose, | 142 (H) | 70 - 109 mg/dL | [facility] | | | POC | | | [facility] | | | | | | MEDICAL | | | | | | CENTER - | | | | | | LABORATORY | | + +---------+ + + + + + | Specimen | + + | Blood | + + + + + + + | Performing | Address | City/State/Zipcode | Phone Number | | Organization | | | | + + + + + | [facility] | [address] | [place] | [phone] | | [facility] | | [address] | | | - LABORATORY | | | | + + + + + POC Glucose (06/26/2018 5:17 PM PDT) + +-------+ + + + | Component | Value | Ref Range | Performed | Pathologist | | | | | At | Signature | + +-------+ + + + | Glucose, | 104 | 70 - 109 mg/dL | [facility] | | | POC | | | [facility] | | | | | | MEDICAL | | | | | | CENTER - | | | | | | LABORATORY | | + +-------+ + + + + + | Specimen | + + | Blood | + + + + + + + | Performing | Address | City/State/Zipcode | Phone Number | | Organization | | | | + + + + + | [facility] | [address] | [place] | [phone] | | [facility] | | [address] | | | - LABORATORY | | | | + + + + + XR Forearm Left 2 Vw (06/26/2018 3:48 PM PDT) + + | Specimen | + + | | + + + + + | Narrative | Performed At | + + + | TWO VIEWS LEFT FOREARM 06/26/2018 3:47 PM CLINICAL HISTORY: Wrist | [facility] | | and forearm pain and swelling. History of fall. COMPARISON: | | | None available FINDINGS: In tact plate and screw fixation hardware | | | is present along the mid to distal radial diaphysis, bridging a | | | healed appearing fracture site. There is smooth contour deformity | | | and some bowing of the distal radius. Positive ulnar variance is | | | apparent. An ossicle at the level of the ulnar styloid likely | | | relates to remote trauma. No recent fracture is evident. There is | | | narrowing of the triscaphe joint. A small square-shaped high | | | density foreign body projects over the base of the thumb. There is | | | confluent arterial calcification. IMPRESSION - 1. NO | | | CONCLUSIVE RADIOGRAPHIC EVIDENCE OF ACUTE INJURY. 2. POSITIVE | | | ULNAR VARIANCE, POTENTIALLY RELATED TO PREVIOUS, NOW HEALED RADIAL | | | FRACTURE. 3. SMALL FOREIGN BODY IN THE BASE OF THE THUMB. 4. | | | ARTERIAL CALCIFICATION. Dictated and Signed by: Kaushik Avitia | | Electronically signed: 06/26/2018 9:30 PM | | + + + + + | Procedure Note | + + | Jose Luis, Rad Results In - 06/26/2018 9:33 PM PDT TWO VIEWS LEFT FOREARM 06/26/2018 3:47 | | PMCLINICAL HISTORY: Wrist and forearm pain and swelling. History of fall.COMPARISON: | | None availableFINDINGS: In tact plate and screw fixation hardware is present along the | | mid todistal radial diaphysis, bridging a healed appearing fracture site. There | | issmooth contour deformity and some bowing of the distal radius. Positive ulnarvariance | | is apparent. An ossicle at the level of the ulnar styloid likelyrelates to remote | | trauma. No recent fracture is evident. There is narrowing ofthe triscaphe joint. A | | small square-shaped high density foreign body projectsover the base of the thumb. There | | is confluent arterial calcification.IMPRESSION -1. NO CONCLUSIVE RADIOGRAPHIC | | EVIDENCE OF ACUTE INJURY.2. POSITIVE ULNAR VARIANCE, POTENTIALLY RELATED TO PREVIOUS, | | NOW HEALED RADIALFRACTURE.3. SMALL FOREIGN BODY IN THE BASE OF THE THUMB.4. ARTERIAL | | CALCIFICATION.Dictated and Signed by: Edmond Caruso MD Electronically signed: 06/26/2018 | | 9:30 PM | | | |IMPRESSION - | |1. NO CONCLUSIVE RADIOGRAPHIC EVIDENCE OF ACUTE INJURY. | | | |2. POSITIVE ULNAR VARIANCE, POTENTIALLY RELATED TO PREVIOUS, NOW HEALED RADIAL | |FRACTURE. | | | |3. SMALL FOREIGN BODY IN THE BASE OF THE THUMB. | | | |4. ARTERIAL CALCIFICATION. | | | |Dictated and Signed by: Edmond Caruso MD | | Electronically signed: 06/26/2018 9:30 PM | + + + +---------+ + + | Performing | Address | City/State/Zipcode | Phone Number | | Organization | | | | + +---------+ + + | [facility] | | | | + +---------+ + + POC Glucose (06/26/2018 12:05 PM PDT) + +---------+ + + + | Component | Value | Ref Range | Performed | Pathologist | | | | | At | Signature | + +---------+ + + + | Glucose, | 152 (H) | 70 - 109 mg/dL | [facility] | | | POC | | | [facility] | | | | | | MEDICAL | | | | | | CENTER - | | | | | | LABORATORY | | + +---------+ + + + + + | Specimen | + + | Blood | + + + + + + + | Performing | Address | City/State/Zipcode | Phone Number | | Organization | | | | + + + + + | [facility] | [address] | [place] | [phone] | | [facility] | | [address] | | | - LABORATORY | | | | + + + + + POC Glucose (06/26/2018 5:49 AM PDT) + +---------+ + + + | Component | Value | Ref Range | Performed | Pathologist | | | | | At | Signature | + +---------+ + + + | Glucose, | 127 (H) | 70 - 109 mg/dL | [facility] | | | POC | | | [facility] | | | | | | MEDICAL | | | | | | CENTER - | | | | | | LABORATORY | | + +---------+ + + + + + | Specimen | + + | Blood | + + + + + + + | Performing | Address | City/State/Zipcode | Phone Number | | Organization | | | | + + + + + | [facility] | [address] | [place] | [phone] | | [facility] | | [address] | | | - LABORATORY | | | | + + + + + POC Glucose (06/25/2018 8:49 PM PDT) + +---------+ + + + | Component | Value | Ref Range | Performed | Pathologist | | | | | At | Signature | + +---------+ + + + | Glucose, | 148 (H) | 70 - 109 mg/dL | [facility] | | | POC | | | [facility] | | | | | | MEDICAL | | | | | | CENTER - | | | | | | LABORATORY | | + +---------+ + + + + + | Specimen | + + | Blood | + + + + + + + | Performing | Address | City/State/Zipcode | Phone Number | | Organization | | | | + + + + + | [facility] | [address] | [place] | [phone] | | [facility] | | [address] | | | - LABORATORY | | | | + + + + + POC Glucose (06/25/2018 4:56 PM PDT) + +-------+ + + + | Component | Value | Ref Range | Performed | Pathologist | | | | | At | Signature | + +-------+ + + + | Glucose, | 103 | 70 - 109 mg/dL | [facility] | | | POC | | | [facility] | | | | | | MEDICAL | | | | | | CENTER - | | | | | | LABORATORY | | + +-------+ + + + + + | Specimen | + + | Blood | + + + + + + + | Performing | Address | City/State/Zipcode | Phone Number | | Organization | | | | + + + + + | [facility] | [address] | [place] | [phone] | | [facility] | | [address] | | | - LABORATORY | | | | + + + + + POC Glucose (06/25/2018 12:22 PM PDT) + +---------+ + + + | Component | Value | Ref Range | Performed | Pathologist | | | | | At | Signature | + +---------+ + + + | Glucose, | 128 (H) | 70 - 109 mg/dL | [facility] | | | P[facility] | | | [facility] | | | | | | [facility] | | | | | | [facility] - | | | | | | LABORATORY | | + +---------+ + + + + + | Specimen | + + | Blood | + + + + + + + | Performing | Address | City/State/Zipcode | Phone Number | | Organization | | | | + + + + + | [facility] | [address] | [place] | [phone] | | [facility] | | [address] | | | - LABORATORY | | | | + + + + + POC Glucose (06/25/2018 11:41 AM PDT) + +---------+ + + + | Component | Value | Ref Range | Performed | Pathologist | | | | | At | Signature | + +---------+ + + + | Glucose, | 138 (H) | 70 - 109 mg/dL | [facility] | | | POC | | | [facility] | | | | | | MEDICAL | | | | | | CENTER - | | | | | | LABORATORY | | + +---------+ + + + + + | Specimen | + + | Blood | + + + + + + + | Performing | Address | City/State/Zipcode | Phone Number | | Organization | | | | + + + + + | [facility] | [address] | [place] | [phone] | | [facility] | | [address] | | | - LABORATORY | | | | + + + + + POC Glucose (06/25/2018 6:27 AM PDT) + +---------+ + + + | Component | Value | Ref Range | Performed | Pathologist | | | | | At | Signature | + +---------+ + + + | Glucose, | 131 (H) | 70 - 109 mg/dL | [facility] | | | POC | | | [facility] | | | | | | MEDICAL | | | | | | CENTER - | | | | | | LABORATORY | | + +---------+ + + + + + | Specimen | + + | Blood | + + + + + + + | Performing | Address | City/State/Zipcode | Phone Number | | Organization | | | | + + + + + | [facility] | [address] | [place] | [phone] | | [facility] | | [address] | | | - LABORATORY | | | | + + + + + POC Glucose (06/24/2018 8:16 PM PDT) + +---------+ + + + | Component | Value | Ref Range | Performed | Pathologist | | | | | At | Signature | + +---------+ + + + | Glucose, | 131 (H) | 70 - 109 mg/dL | [facility] | | | POC | | | [facility] | | | | | | MEDICAL | | | | | | CENTER - | | | | | | LABORATORY | | + +---------+ + + + + + | Specimen | + + | Blood | + + + + + + + | Performing | Address | City/State/Zipcode | Phone Number | | Organization | | | | + + + + + | [facility] | [address] | [place] | [phone] | | [facility] | | [address] | | | - LABORATORY | | | | + + + + + POC Glucose (06/24/2018 4:51 PM PDT) + +--------+ + + + | Component | Value | Ref Range | Performed | Pathologist | | | | | At | Signature | + +--------+ + + + | Glucose, | 68 (L) | 70 - 109 mg/dL | [facility] | | | POC | | | [facility] | | | | | | MEDICAL | | | | | | CENTER - | | | | | | LABORATORY | | + +--------+ + + + + + | Specimen | + + | Blood | + + + + + + + | Performing | Address | City/State/Zipcode | Phone Number | | Organization | | | | + + + + + | [facility] | [address] | [place] | [phone] | | [facility] | | [address] | | | - LABORATORY | | | | + + + + + POC Glucose (06/24/2018 11:31 AM PDT) + +-------+ + + + | Component | Value | Ref Range | Performed | Pathologist | | | | | At | Signature | + +-------+ + + + | Glucose, | 104 | 70 - 109 mg/dL | [facility] | | | POC | | | [facility] | | | | | | [facility] | | | | | | CENTER - | | | | | | LABORATORY | | + +-------+ + + + + + | Specimen | + + | Blood | + + + + + + + | Performing | Address | City/State/Zipcode | Phone Number | | Organization | | | | + + + + + | [facility] | [address] | [place] | [phone] | | [facility] | | [address] | | | - LABORATORY | | | | + + + + + POC Glucose (06/24/2018 6:05 AM PDT) + +-------+ + + + | Component | Value | Ref Range | Performed | Pathologist | | | | | At | Signature | + +-------+ + + + | Glucose, | 107 | 70 - 109 mg/dL | [facility] | | | POC | | | [facility] | | | | | | MEDICAL | | | | | | CENTER - | | | | | | LABORATORY | | + +-------+ + + + + + | Specimen | + + | Blood | + + + + + + + | Performing | Address | City/State/Zipcode | Phone Number | | Organization | | | | + + + + + | [facility] | [address] | [place] | [phone] | | [facility] | | [address] | | | - LABORATORY | | | | + + + + + POC Glucose (06/23/2018 8:34 PM PDT) + +---------+ + + + | Component | Value | Ref Range | Performed | Pathologist | | | | | At | Signature | + +---------+ + + + | Glucose, | 124 (H) | 70 - 109 mg/dL | [facility] | | | POC | | | [facility] | | | | | | MEDICAL | | | | | | CENTER - | | | | | | LABORATORY | | + +---------+ + + + + + | Specimen | + + | Blood | + + + + + + + | Performing | Address | City/State/Zipcode | Phone Number | | Organization | | | | + + + + + | [facility] | [address] | [place], [place] | [phone] | | [facility] | | [address] | | | - LABORATORY | | | | + + + + + POC Glucose (06/23/2018 4:31 PM PDT) + +-------+ + + + | Component | Value | Ref Range | Performed | Pathologist | | | | | At | Signature | + +-------+ + + + | Glucose, | 89 | 70 - 109 mg/dL | [facility] | | | POC | | | [facility] | | | | | | MEDICAL | | | | | | CENTER - | | | | | | LABORATORY | | + +-------+ + + + + + | Specimen | + + | Blood | + + + + + + + | Performing | Address | City/State/Zipcode | Phone Number | | Organization | | | | + + + + + | [facility] | [address] | [place] | [phone] | | [facility] | | [address] | | | - LABORATORY | | | | + + + + + POC Glucose (06/23/2018 12:09 PM PDT) + +---------+ + + + | Component | Value | Ref Range | Performed | Pathologist | | | | | At | Signature | + +---------+ + + + | Glucose, | 141 (H) | 70 - 109 mg/dL | [facility] | | | POC | | | [facility] | | | | | | MEDICAL | | | | | | CENTER - | | | | | | LABORATORY | | + +---------+ + + + + + | Specimen | + + | Blood | + + + + + + + | Performing | Address | City/State/Zipcode | Phone Number | | Organization | | | | + + + + + | [facility] | [address] | [place], [place] | [phone] | | [facility] | | [address] | | | - LABORATORY | | | | + + + + + POC Glucose (06/23/2018 7:06 AM PDT) + +-------+ + + + | Component | Value | Ref Range | Performed | Pathologist | | | | | At | Signature | + +-------+ + + + | Glucose, | 105 | 70 - 109 mg/dL | [facility] | | | POC | | | [facility] | | | | | | MEDICAL | | | | | | CENTER - | | | | | | LABORATORY | | + +-------+ + + + + + | Specimen | + + | Blood | + + + + + + + | Performing | Address | City/State/Zipcode | Phone Number | | Organization | | | | + + + + + | [facility] | [address] | [place] | [phone] | | [facility] | | [address] | | | - LABORATORY | | | | + + + + + Prealbumin (06/23/2018 5:27 AM PDT) + +-------+ + + + | Component | Value | Ref Range | Performed | Pathologist | | | | | At | Signature | + +-------+ + + + | Prealbumin | 18 | 18 - 38 mg/dL | [facility] | | | | | | [facility] | | | | | | MEDICAL | | | | | | CENTER - | | | | | | LABORATORY | | + +-------+ + + + + + | Specimen | + + | Blood | + + + + + + + | Performing | Address | City/State/Zipcode | Phone Number | | Organization | | | | + + + + + | [facility] | [address] | [place] | [phone] | | [facility] | | [address] | | | - LABORATORY | | | | + + + + + Comprehensive Metabolic Panel (06/23/2018 5:27 AM PDT) + + + + + + | Component | Value | Ref Range | Performed | Pathologist | | | | | At | Signature | + + + + + + | Na | 137 | 136 - 149 | [facility] | | | | | mmol/L | [facility] | | | | | | MEDICAL | | | | | | CENTER - | | | | | | LABORATORY | | + + + + + + | K | 4.2 | 3.5 - 5.1 | [facility] | | | | | mmol/L | [facility] | | | | | | MEDICAL | | | | | | CENTER - | | | | | | LABORATORY | | + + + + + + | Cl | 107 | 98 - 109 mmol/L | [facility] | | | | | | [facility] | | | | | | MEDICAL | | | | | | CENTER - | | | | | | LABORATORY | | + + + + + + | CO2 | 22 (L) | 24 - 31 mmol/L | [facility] | | | | | | [facility] | | | | | | MEDICAL | | | | | | CENTER - | | | | | | LABORATORY | | + + + + + + | Anion Gap | 8 | 3 - 16 mmol/L | [facility] | | | | | | [facility] | | | | | | MEDICAL | | | | | | CENTER - | | | | | | LABORATORY | | + + + + + + | Glucose | 110 (H) | 70 - 109 mg/dL | [facility] | | | | | | [facility] | | | | | | MEDICAL | | | | | | CENTER - | | | | | | LABORATORY | | + + + + + + | BUN | 35 (H) | 7 - 18 mg/dL | [facility] | | | | | | [facility] | | | | | | MEDICAL | | | | | | CENTER - | | | | | | LABORATORY | | + + + + + + | Creatinine | 2.07 (H) | 0.60 - 1.30 | [facility] | | | | | mg/dL | [facility] | | | | | | MEDICAL | | | | | | CENTER - | | | | | | LABORATORY | | + + + + + + | eGFR if not | 32 (L)Comment: | >=60 | [facility] | | | | GLOMERULAR FILTRATION | mL/min/1.73m2 | [facility] | | | [facility] | RATE,ESTIMATED | | MEDICAL | | | | mL/min/1.15w4Uosk than | | CENTER - | | | | 60 Chronic kidney | | LABORATORY | | | | disease,if found over a | | | | | | 3-month period.Less than | | | | | | 15 Kidney failureFor | | | | | | | | | | | | Americans,multiply the | | | | | | calculated GFR by 1.21. | | | | | | | | | | + + + + + + | Calcium | 9.4 | 8.3 - 10.5 | [facility] | | | | | mg/dL | [facility] | | | | | | MEDICAL | | | | | | CENTER - | | | | | | LABORATORY | | + + + + + + | Albumin | 3.2 | 3.2 - 5.0 g/dL | [facility] | | | | | | [facility] | | | | | | MEDICAL | | | | | | CENTER - | | | | | | LABORATORY | | + + + + + + | Bilirubin | 0.7 | 0.1 - 1.5 mg/dL | [facility] | | | Total | | | [facility] | | | | | | MEDICAL | | | | | | CENTER - | | | | | | LABORATORY | | + + + + + + | Total | 7.8 | 6.0 - 7.8 g/dL | [facility] | | | Protein | | | [facility] | | | | | | MEDICAL | | | | | | CENTER - | | | | | | LABORATORY | | + + + + + + | AST | 32 | 10 - 42 U/L | [facility] | | | | | | [facility] | | | | | | MEDICAL | | | | | | CENTER - | | | | | | LABORATORY | | + + + + + + | ALT | 22 | 6 - 45 U/L | [facility] | | | | | | [facility] | | | | | | MEDICAL | | | | | | CENTER - | | | | | | LABORATORY | | + + + + + + | Alkaline | 96 | 40 - 110 U/L | [facility] | | | Phosphatase | | | [facility] | | | | | | MEDICAL | | | | | | CENTER - | | | | | | LABORATORY | | + + + + + + | Globulin | 4.6 (H) | 2.1 - 3.8 g/dL | [facility] | | | | | | [facility] | | | | | | MEDICAL | | | | | | CENTER - | | | | | | LABORATORY | | + + + + + + | Albumin/Grace | 0.7 (L) | 0.8 - 2.0 | [facility] | | | bulin Ratio | | | [facility] | | | | | | MEDICAL | | | | | | CENTER - | | | | | | LABORATORY | | + + + + + + | BUN/Creatin | 16.9 | | [facility] | | | ine Ratio | | | [facility] | | | | | | MEDICAL | | | | | | CENTER - | | | | | | LABORATORY | | + + + + + + + + | Specimen | + + | Blood | + + + + + + + | Performing | Address | City/State/Zipcode | Phone Number | | Organization | | | | + + + + + | [facility] | [address] | [place] | [phone] | | [facility] | | [address] | | | - LABORATORY | | | | + + + + + CBC with Differential (06/23/2018 5:27 AM PDT) + + + + + + | Component | Value | Ref Range | Performed | Pathologist | | | | | At | Signature | + + + + + + | WBC | 10.2 | 4.0 - 11.0 K/uL | [facility] | | | | | | [facility] | | | | | | MEDICAL | | | | | | CENTER - | | | | | | LABORATORY | | + + + + + + | RBC | 5.60 | 4.30 - 5.70 | [facility] | | | | | M/uL | [facility] | | | | | | MEDICAL | | | | | | CENTER - | | | | | | LABORATORY | | + + + + + + | Hemoglobin | 16.9 | 13.5 - 18.0 | [facility] | | | | | g/dL | [facility] | | | | | | MEDICAL | | | | | | CENTER - | | | | | | LABORATORY | | + + + + + + | Hematocrit | 51.4 (H) | 40.0 - 51.0 % | [facility] | | | | | | [facility] | | | | | | MEDICAL | | | | | | CENTER - | | | | | | LABORATORY | | + + + + + + | MCV | 91.8 | 83.0 - 101.0 fL | [facility] | | | | | | [facility] | | | | | | MEDICAL | | | | | | CENTER - | | | | | | LABORATORY | | + + + + + + | MCH | 30.2 | 28.0 - 35.0 pg | [facility] | | | | | | [facility] | | | | | | MEDICAL | | | | | | CENTER - | | | | | | LABORATORY | | + + + + + + | MCHC | 32.9 | 32.0 - 36.0 | [facility] | | | | | g/dL | [facility] | | | | | | MEDICAL | | | | | | CENTER - | | | | | | LABORATORY | | + + + + + + | RDW-CV | 16.2 (H) | <15.0 % | [facility] | | | | | | [facility] | | | | | | MEDICAL | | | | | | CENTER - | | | | | | LABORATORY | | + + + + + + | RDW-SD | 54.2 (H) | 35.1 - 46.3 fL | [facility] | | | | | | [facility] | | | | | | MEDICAL | | | | | | C[facility] - | | | | | | LABORATORY | | + + + + + + | Platelet | 323 | 140 - 440 K/uL | [facility] | | | Count | | | [facility] | | | [facility] | | [facility] | | | | | | [facility] - | | | | | | LABORATORY | | + + + + + + | MPV | 10.9 | 6.5 - 12.4 fL | [facility] | | | | | | [facility] | | | | | | [facility] | | | | | | [facility] - | | | | | | LABORATORY | | + + + + + + | % | 52.9 | 45.0 - 82.0 % | [facility] | | | Neutrophils | | | [facility] | | | | | | [facility] | | | | | | [facility] - | | | | | | LABORATORY | | + + + + + + | % | 32.9 | 20.0 - 45.0 % | [facility] | | | Lymphocytes | | | [facility] | | | | | | [facility] | | | | | | [facility] - | | | | | | LABORATORY | | + + + + + + | % Monocytes | 9.0 | 4.0 - 12.0 % | [facility] | | | | | | [facility] | | | | | | [facility] | | | | | | [facility] - | | | | | | LABORATORY | | + + + + + + | % | 3.6 | 0.0 - 5.0 % | [facility] | | | Eosinophils | | | [facility] | | | | | | [facility] | | | | | | [facility]ENTER - | | | | | | LABORATORY | | + + + + + + | % Basophils | 0.9 | 0.0 - 1.0 % | [facility] | | | | | | [facility] | | | | | | [facility] | | | | | | [facility] - | | | | | | LABORATORY | | + + + + + + | % Immature | 0.7 (H)Comment: | 0.0 - 0.4 % | [facility] | | | Granulocyte | Preliminary studIes have | | [facility] | | | s | indicated the IG% | | MEDICAL | | | | and/or IG# show promise | | CENTER - | | | | as an early screen for | | LABORATORY | | | | infection. | | | | + + + + + + | Absolute | 5.37 | 1.80 - 8.50 | [facility] | | | Neutrophils | | K/uL | [facility] | | | | | | [facility]ICAL | | | | | | CENTER - | | | | | | LABORATORY | | + + + + + + | Absolute | 3.35 (H) | 0.60 - 3.20 | [facility] | | | Lymphocytes | | K/uL | [facility] | | | | | | [facility] | | | | | | CENTER - | | | | | | LABORATORY | | + + + + + + | Absolute | 0.92 | 0.00 - 1.00 | [facility] | | | Monocytes | | K/uL | [facility] | | | | | | [facility] | | | | | | CENTER - | | | | | | LABORATORY | | + + + + + + | Absolute | 0.37 | 0.00 - 0.40 | [facility] | | | Eosinophils | | K/uL | [facility] | | | | | | [facility] | | | | | | CENTER - | | | | | | LABORATORY | | + + + + + + | Absolute | 0.09 | 0.00 - 0.10 | [facility] | | | Basophils | | K/uL | [facility] | | | | | | [facility] | | | | | | CENTER - | | | | | | LABORATORY | | + + + + + + | Absolute | 0.07 (H) | 0.00 - 0.03 | [facility] | | | Immature | | K/uL | [facility] | | | Granulocyte | | | MEDICAL | | | s | | | CENTER - | | | | | | LABORATORY | | + + + + + + | % nRBC | 0 | 0 - 2 per 100 | [facility] | | | [facility] | [facility] | | | | | | [facility] - | | | | | | LABORATORY | | + + + + + + | Absolute | 0.00 | 0.00 - 0.01 | [facility] | | | [facility] | | [facility] | | | [facility] | [facility] | | | | | | C[facility] - | | | | | | LABORATORY | | + + + + + + + + | Specimen | + + | Blood | + + + + + + + | Performing | Address | City/State/Zipcode | Phone Number | | Organization | | | | + + + + + | [facility] | [address] | [place] | [phone] | | [facility] | | [address] | | | - LABORATORY | | | | + + + + + B Type Natriuretic Peptide (06/23/2018 5:27 AM PDT) + +---------+ + + + | Component | Value | Ref Range | Performed | Pathologist | | | | | At | Signature | + +---------+ + + + | BNP | 101 (H) | <100 pg/mL | [facility] | | | | | | [facility] | | | | | | MEDICAL | | | | | | CENTER - | | | | | | LABORATORY | | + +---------+ + + + + + | Specimen | + + | Blood | + + + + + + + | Performing | Address | City/State/Zipcode | Phone Number | | Organization | | | | + + + + + | [facility] | [address] | [place] | [phone] | | [facility] | | [address] | | | - LABORATORY | | | | + + + + + POC Glucose (06/22/2018 10:33 PM PDT) + +---------+ + + + | Component | Value | Ref Range | Performed | Pathologist | | | | | At | Signature | + +---------+ + + + | Glucose, | 141 (H) | 70 - 109 mg/dL | [facility] | | | P[facility] | | | [facility] | | | | | | MEDICAL | | | | | | CENTER - | | | | | | LABORATORY | | + +---------+ + + + + + | Specimen | + + | Blood | + + + + + + + | Performing | Address | City/State/Zipcode | Phone Number | | Organization | | | | + + + + + | [facility] | [address] | [place] | [phone] | | [facility] | | [address] | | | - LABORATORY | | | | + + + + + LABS - EXTERNAL SCAN (06/19/2018 12:00 AM PDT) + + + | Narrative | Performed At | + + + | Ordered by an | | | unspecified provider. | | + + + IMAGING REPORT - EXTERNAL SCAN (06/19/2018 12:00 AM PDT) + + + | Narrative | Performed At | + + + | Ordered by an | | | unspecified provider. | | + + + ECG - EXTERNAL SCAN (06/19/2018 12:00 AM PDT) + + + | Narrative | Performed At | + + + | Ordered by an | | | unspecified provider. | | + + + documented in this encounter Visit Diagnoses + + | Diagnosis | + + | Acute left hemiparesis (HCC) - Primary Hemiplegia, unspecified, affecting unspecified | | side | + + | Neurogenic bladder Neurogenic bladder, NOS | + + | Diabetic peripheral neuropathy (HCC) Type II or unspecified type diabetes mellitus | | with neurological manifestations, not stated as uncontrolled | + + | Dysphagia due to recent cerebral infarction | + + | HIV (human immunodeficiency virus infection) ([facility]) Asymptomatic human | | immunodeficiency virus (HIV) infection status | + + | Ischemic cerebrovascular accident (CVA) ([facility]) | + + | IDDM (insulin dependent diabetes mellitus) ([facility]) Type II or unspecified type diabetes | | mellitus without mention of complication, not stated as uncontrolled | + + | HTN (hypertension) Unspecified essential hypertension | + + | CKD (chronic kidney disease) Chronic kidney disease, unspecified | + + | Morbid obesity (HCC) Morbid obesity | + + | RACHELLE treated with BiPAP | + + | Mild cognitive impairment Mild cognitive impairment, so stated | + + documented in this encounter Administered Medications + +--------+ + +------+------+ | Medication Order | MAR | Action | Dose | Rate | Site | | | Action | Date | | | | + +--------+ + +------+------+ | | Given | 06/30/20 | 1 tablet | | | | mvlbwqwl-vuevvzkxmaxa-kqgjBDPgsk | | 18 8:34 | | | | | (TRIUMEQ) 600-50-300 mg per | | PM PDT | | | | | tablet 1 tablet (POM) 1 tablet, | | | | | | | Oral, NIGHTLY, First dose (after | | | | | | | last modification) on Wed06/22/18 | | | | | | | at 2100, Hazardous: Use | | | | | | | appropriate handling | | | | | | | precautions., PT's OWN MED. In | | | | | | | Lock Box or Pyxis Patient | | | | | | | Specific Bin. RETURN TO PATIENT | | | | | | | AT DISCHARGE. Verified #Triumeq | | | | | | | by Pharmacist Arsh Belcher PharmMonse | | | | | | | 06/20/2018 , , Discharge | | | | | | | Readmit, Indications: Human | | | | | | | Immunodeficiency Virus Disease | | | | | | + +--------+ + +------+------+ +-------+ + +---+---+ | Given | 06/29/20 | 1 tablet | | | | | 18 8:11 | | | | | | PM PDT | | | | +-------+ + +---+---+ | Given | 06/28/20 | 1 tablet | | | | | 18 9:10 | | | | | | PM PDT | | | | +-------+ + +---+---+ +---+---+ | | | +---+---+ + +-------+ +--------+---+---+ | allopurinol (ZYLOPRIM) tablet | Given | 06/29/20 | 100 mg | | | | 100 mg 100 mg, Oral, DAILY, | | 18 8:36 | | | | | First dose (after last | | AM PDT | | | | | modification) on [facility] 06/23/18 at | | | | | | | 0900, Discharge Readmit | | | | | | + +-------+ +--------+---+---+ +-------+ +--------+---+---+ | Given | 06/28/20 | 100 mg | | | | | 18 8:37 | | | | | | AM PDT | | | | +-------+ +--------+---+---+ | Given | 06/27/20 | 100 mg | | | | | 18 8:32 | | | | | | AM PDT | | | | +-------+ +--------+---+---+ +---+---+ | | | +---+---+ + +-------+ +------+---+---+ | apixaban (ELIQUIS) tablet 5 mg | Given | 07/01/20 | 5 mg | | | | 5 mg, Oral, EVERY 12 HOURS | | 18 6:20 | | | | | INTERVAL, First dose (after last | | AM PDT | | | | | modification) on Wed06/22/18 at | | | | | | | 1800, Discharge Readmit | | | | | | + +-------+ +------+---+---+ +-------+ +------+---+---+ | Given | 06/30/20 | 5 mg | | | | | 18 5:18 | | | | | | PM PDT | | | | +-------+ +------+---+---+ | Given | 06/30/20 | 5 mg | | | | | 18 6:43 | | | | | | AM PDT | | | | +-------+ +------+---+---+ +---+---+ | | | +---+---+ + +-------+ +-------+---+---+ | atorvaSTATin (LIPITOR) tablet | Given | 07/01/20 | 80 mg | | | | 80 mg 80 mg, Oral, DAILY, First | | 18 8:28 | | | | | dose (after last modification) on | | AM PDT | | | | | Lay 06/23/18 at 0900, Discharge | | | | | | | Readmit | | | | | | + +-------+ +-------+---+---+ +-------+ +-------+---+---+ | Given | 06/30/20 | 80 mg | | | | | 18 9:06 | | | | | | AM PDT | | | | +-------+ +-------+---+---+ | Given | 06/29/20 | 80 mg | | | | | 18 8:29 | | | | | | AM PDT | | | | +-------+ +-------+---+---+ +---+---+ | | | +---+---+ + +-------+ + +---+---+ | bacitracin topical ointment | Given | 07/01/20 | 1 | | | | Topical, 2 TIMES DAILY, First | | 18 10:17 | Applicat | | | | dose on Lay 06/30/18 at 1130, The | | AM PDT | ion | | | | open sore on his right lateral | | | | | | | right calf twice a day; And cover | | | | | | | with a ABD and cover with | | | | | | | Kerlix, | | | | | | + +-------+ + +---+---+ +-------+ + +---+---+ | Given | 06/30/20 | 1 | | | | | 18 8:41 | Applicat | | | | | PM PDT | ion | | | +-------+ + +---+---+ | Given | 06/30/20 | 1 | | | | | 18 11:48 | Applicat | | | | | AM PDT | ion | | | +-------+ + +---+---+ +---+---+ | | | +---+---+ + +-------+ +--------+---+---+ | barium (E-Z-HD) 98% contrast | Given | 06/29/20 | 25 mLs | | | | suspension 25 mL 25 mL, Oral, | | 18 9:26 | | | | | ONCE PRN, Other, Starting Wed | | AM PDT | | | | | 06/29/18 at 0926, For 1 dose, | | | | | | | Zackfarhat well., | | | | | | + +-------+ +--------+---+---+ +---+---+ | | | +---+---+ + +-------+ + +---+---+ | barium (E-Z-PASTE) 60% | Given | 06/29/20 | 1 | | | | esophageal cream 1 Application 1 | | 18 9:26 | Applicat | | | | Application, Oral, ONCE PRN, | | AM PDT | ion | | | | Other, Starting 06/29/18 at | | | | | | | 0926, For 2 doses | | | | | | + +-------+ + +---+---+ +---+---+ | | | +---+---+ + +-------+ +--------+---+---+ | barium (TAGITOL, VARIBAR) 40% | Given | 06/29/20 | 15 mLs | | | | contrast suspension 15 mL 15 mL, | | 18 9:26 | | | | | Oral, ONCE PRN, Other, Starting | | AM PDT | | | | | 06/29/18 at 0926, For 1 dose, | | | | | | | Shake well., | | | | | | + +-------+ +--------+---+---+ + +---+ | | | + +---+ | dextrose 50% injection 12.5 g | | | 12.5 g, Intravenous, PRN, Low | | | Blood Sugar, Starting 06/22/18 | | | at 1742, Discharge Readmit | | + +---+ | | | + +---+ + +-------+ +-------+---+---+ | diphenhydrAMINE (BENADRYL) | Given | 06/30/20 | 50 mg | | | | capsule 50 mg 50 mg, Oral, DAILY | | 18 5:18 | | | | | AFTER DINNER, First dose (after | | PM PDT | | | | | last modification) on Wed | | | | | | | 06/29/18 at 1800 | | | | | | + +-------+ +-------+---+---+ +-------+ +-------+---+---+ | Given | 06/29/20 | 50 mg | | | | | 18 5:53 | | | | | | PM PDT | | | | +-------+ +-------+---+---+ +---+---+ | | | +---+---+ + +-------+ +-------+---+---+ | diphenhydrAMINE (BENADRYL) | Given | 06/29/20 | 25 mg | | | | tablet 25 mg 25 mg, Oral, EVERY | | 18 3:03 | | | | | 6 HOURS PRN, Itching, Starting | | AM PDT | | | | | 06/25/18 at 1600 | | | | | | + +-------+ +-------+---+---+ +-------+ +-------+---+---+ | Given | 06/28/20 | 25 mg | | | | | 18 9:10 | | | | | | PM PDT | | | | +-------+ +-------+---+---+ | Given | 06/25/20 | 25 mg | | | | | 18 6:05 | | | | | | PM PDT | | | | +-------+ +-------+---+---+ +---+---+ | | | +---+---+ + +-------+ +------+---+---+ | finasteride (PROSCAR) tablet 5 | Given | 07/01/20 | 5 mg | | | | mg 5 mg, Oral, DAILY, First dose | | 18 8:28 | | | | | (after last modification) on [facility] | | AM PDT | | | | | 06/23/18 at 0900, Reproductive | | | | | | | Risk: Use appropriate handling | | | | | | | precautions., Discharge Readmit | | | | | | + +-------+ +------+---+---+ +-------+ +------+---+---+ | Given | 06/30/20 | 5 mg | | | | | 18 9:06 | | | | | | AM PDT | | | | +-------+ +------+---+---+ | Given | 06/29/20 | 5 mg | | | | | 18 8:29 | | | | | | AM PDT | | | | +-------+ +------+---+---+ +---+---+ | | | +---+---+ + +-------+ +--------+---+---+ | gabapentin (NEURONTIN) capsule | Given | 06/29/20 | 300 mg | | | | 300 mg 300 mg, Oral, 2 TIMES | | 18 8:29 | | | | | DAILY, First dose (after last | | AM PDT | | | | | modification) on Wed06/22/18 at | | | | | | | 2100, Discharge Readmit | | | | | | + +-------+ +--------+---+---+ +-------+ +--------+---+---+ | Given | 06/28/20 | 300 mg | | | | | 18 9:10 | | | | | | PM PDT | | | | +-------+ +--------+---+---+ | Given | 06/28/20 | 300 mg | | | | | 18 8:38 | | | | | | AM PDT | | | | +-------+ +--------+---+---+ +---+---+ | | | +---+---+ + +-------+ +---------+---+---+ | HYDROcodone-acetaminophen | Given | 06/30/20 | 2 | | | | (NORCO) 5-325 mg per tablet 1-2 | | 18 8:33 | tablets | | | | tablet 1-2 tablet, Oral, EVERY 4 | | PM PDT | | | | | HOURS PRN, Pain, Starting Wed | | | | | | | 06/22/18 at 1742, Discharge | | | | | | | Readmit | | | | | | + +-------+ +---------+---+---+ +-------+ +---------+---+---+ | Given | 06/30/20 | 2 | | | | | 18 9:28 | tablets | | | | | AM PDT | | | | +-------+ +---------+---+---+ | Given | 06/29/20 | 2 | | | | | 18 8:07 | tablets | | | | | PM PDT | | | | +-------+ +---------+---+---+ + +---+ | | | + +---+ | hydrOXYzine pamoate (VISTARIL) | | | capsule 25 mg 25 mg, Oral, EVERY | | | 6 HOURS PRN, Itching, Starting | | | Wed06/29/18 at 1422 | | + +---+ | | | + +---+ + +-------+ +---------+---+ + | influenza quadrivalent | Given | 06/30/20 | 0.5 mLs | | Deltoid- | | (FLUZONE, FLUARIX, AFLURIA | | 18 11:58 | | | Right | | QUADRIVALENT) vaccine injection | | AM PDT | | | | | (syringe) 0.5 mL 0.5 mL, | | | | | | | Intramuscular, ONE TIME VACCINE, | | | | | | | Wed06/29/18 at 0900, For 1 dose, | | | | | | | Give patient education | | | | | | | information. Zackke prior to use., | | | | | | | | | | | | | + +-------+ +---------+---+ + +---+---+ | | | +---+---+ + +-------+ + +---+ + | insulin glargine (LANTUS | Given | 06/24/20 | 25 Units | | Arm-Righ | | SOLOSTAR) 100 units/mL injection | | 18 8:17 | | | t Upper | | (pen) 25 Units 25 Units, | | PM PDT | | | | | Subcutaneous, EVERY 12 HOURS (2 | | | | | | | times per day), First dose (after | | | | | | | last modification) on Wed | | | | | | | 06/22/18 at 2100, For subcutaneous | | | | | | | use only. Basal (long acting) | | | | | | | insulin., Discharge Readmit | | | | | | + +-------+ + +---+ + +-------+ + +---+ + | Given | 06/24/20 | 25 Units | | Abdomen- | | | 18 9:11 | | | LLQ | | | AM PDT | | | | +-------+ + +---+ + | Given | 06/23/20 | 25 Units | | Arm-Righ | | | 18 8:35 | | | t Upper | | | PM PDT | | | | +-------+ + +---+ + +---+---+ | | | +---+---+ + +-------+ +---------+---+ + | insulin lispro (humaLOG | Given | 07/01/20 | 1 Units | | Abdomen- | | KWIKPEN) 100 units/mL injection | | 18 11:57 | | | RUQ | | (pen) 0-6 Units 0-6 Units, | | AM PDT | | | | | Subcutaneous, 4 TIMES DAILY WITH | | | | | | | MEALS & NIGHTLY, First dose | | | | | | | (after last modification) on Wed | | | | | | | 06/22/18 at 2100, CORRECTION | | | | | | | SCALE: Blood Glucose (BG) < | | | | | | | 150: None BG | | | | | | | 150-200: DAY: 1 units. NIGHT: 0 | | | | | | | units BG 201-250: DAY: 2 units. | | | | | | | NIGHT: 1 units BG 251-300: | | | | | | | DAY: 3 units. NIGHT: 2 units | | | | | | | BG 301-350: DAY: 4 units. NIGHT: | | | | | | | 3 units BG 351-400: DAY: 5 | | | | | | | units. NIGHT: 4 units BG > | | | | | | | 400 : DAY: 6 units. NIGHT: 5 | | | | | | | units | | | | | | | AND CALL PROVIDER Use DAY DOSE | | | | | | | for doses scheduled: AC, | | | | | | | NPO, Daytime [phone] Use NIGHT | | | | | | | DOSE for doses scheduled: | | | | | | | HS, 3AM, Nighttime [phone], | | | | | | | Discharge Readmit | | | | | | + +-------+ +---------+---+ + +-------+ +---------+---+ + | Given | 06/30/20 | 1 Units | | Abdomen- | | | 18 12:04 | | | LUQ | | | PM PDT | | | | +-------+ +---------+---+ + | Given | 06/26/20 | 1 Units | | Abdomen- | | | 18 12:07 | | | RLQ | | | PM PDT | | | | +-------+ +---------+---+ + +---+---+ | | | +---+---+ + +-------+ + +---+ + | insulin lispro (humaLOG | Given | 07/01/20 | 15 Units | | Abdomen- | | KWIKPEN) 100 units/mL injection | | 18 11:58 | | | RUQ | | (pen) 15 Units 15 Units, | | AM PDT | | | | | Subcutaneous, 3 TIMES DAILY WITH | | | | | | | MEALS, First dose (after last | | | | | | | modification) on Lay 06/23/18 at | | | | | | | 0800, Discharge Readmit | | | | | | + +-------+ + +---+ + +-------+ + +---+ + | Given | 07/01/20 | 15 Units | | Arm-Left | | | 18 8:35 | | | Upper | | | AM PDT | | | | +-------+ + +---+ + | Given | 06/30/20 | 15 Units | | Abdomen- | | | 18 5:21 | | | RUQ | | | PM PDT | | | | +-------+ + +---+ + +---+---+ | | | +---+---+ + +-------+ +-------+---+---+ | isosorbide mononitrate (IMDUR) | Given | 07/01/20 | 30 mg | | | | ER tablet 30 mg 30 mg, Oral, | | 18 8:28 | | | | | DAILY, First dose (after last | | AM PDT | | | | | modification) on Lay 06/23/18 at | | | | | | | 0900, Tablet may be cut where | | | | | | | scored but do not crush., | | | | | | | Discharge Readmit | | | | | | + +-------+ +-------+---+---+ +-------+ +-------+---+---+ | Given | 06/30/20 | 30 mg | | | | | 18 9:05 | | | | | | AM PDT | | | | +-------+ +-------+---+---+ | Given | 06/29/20 | 30 mg | | | | | 18 8:29 | | | | | | AM PDT | | | | +-------+ +-------+---+---+ +---+---+ | | | +---+---+ + +-------+ +---+---+---+ | lidocaine (XYLOCAINE) 2% jelly | Given | 06/24/20 | | | | | (uro-jet) Urethral, ONCE, Fri | | 18 2:32 | | | | | 06/24/18 at 1445, For 1 dose | | PM PDT | | | | + +-------+ +---+---+---+ +---+---+ | | | +---+---+ + +-------+ +-------+---+---+ | metoprolol tartrate (LOPRESSOR) | Given | 07/01/20 | 25 mg | | | | tablet 25 mg 25 mg, Oral, 2 | | 18 8:29 | | | | | TIMES DAILY, First dose (after | | AM PDT | | | | | last modification) on Wed06/22/18 | | | | | | | at 2100, Discharge Readmit | | | | | | + +-------+ +-------+---+---+ +-------+ +-------+---+---+ | Given | 06/30/20 | 25 mg | | | | | 18 8:33 | | | | | | PM PDT | | | | +-------+ +-------+---+---+ | Given | 06/30/20 | 25 mg | | | | | 18 9:06 | | | | | | AM PDT | | | | +-------+ +-------+---+---+ +---+---+ | | | +---+---+ + +-------+ +--------+---+---+ | mirtazapine (REMERON) tablet | Given | 06/30/20 | 7.5 mg | | | | 7.5 mg 7.5 mg, Oral, DAILY AFTER | | 18 5:18 | | | | | DINNER, First dose on Wed | | PM PDT | | | | | 06/29/18 at 1800 | | | | | | + +-------+ +--------+---+---+ +-------+ +--------+---+---+ | Given | 06/29/20 | 7.5 mg | | | | | 18 6:41 | | | | | | PM PDT | | | | +-------+ +--------+---+---+ +---+---+ | | | +---+---+ + +-------+ +------+---+---+ | polyethylene glycol (MIRALAX) | Given | 06/29/20 | 17 g | | | | powder 17 g 17 g, Oral, DAILY | | 18 5:53 | | | | | PRN, Constipation, Starting Wed | | PM PDT | | | | | 06/29/18 at 1628, Mix with 8 oz. | | | | | | | water., | | | | | | + +-------+ +------+---+---+ +---+---+ | | | +---+---+ + +-------+ +---------+---+---+ | venlafaxine (EFFEXOR XR) ER | Given | 06/30/20 | 37.5 mg | | | | capsule 37.5 mg 37.5 mg, Oral, | | 18 9:05 | | | | | DAILY WITH BREAKFAST, First dose | | AM PDT | | | | | on Wed06/29/18 at 0800, Do not | | | | | | | crush or chew. Capsule may be | | | | | | | opened and contents sprinkled on | | | | | | | applesauce., | | | | | | + +-------+ +---------+---+---+ +-------+ +---------+---+---+ | Given | 06/29/20 | 37.5 mg | | | | | 18 8:29 | | | | | | AM PDT | | | | +-------+ +---------+---+---+ +---+---+ | | | +---+---+ + +-------+ +-------+---+---+ | venlafaxine (EFFEXOR XR) ER | Given | 07/01/20 | 75 mg | | | | capsule 75 mg 75 mg, Oral, DAILY | | 18 8:28 | | | | | WITH BREAKFAST, First dose | | AM PDT | | | | | (after last modification) on Fri | | | | | | | 07/01/18 at 0800, Do not crush or | | | | | | | chew. Capsule may be opened and | | | | | | | contents sprinkled on | | | | | | | applesauce., | | | | | | + +-------+ +-------+---+---+ +---+---+ | | | +---+---+ documented in this encounter
--- OUTSIDE RECORDS SUMMARY | ~2019-08-11 | XMS | Encounter Summary ---
Demographics + + + | Address | [address] | | | [place] [address] | + + + | Home Phone | | + + + | Preferred Language | Unknown | + + + | Marital Status | | + + + | Uatsdin Affiliation | 1038 | + + + | Race | Unknown | + + + | Ethnic Group | Unknown | + + + Author + + + | Author | [facility] | | | and [place] | + + + | Organization | [facility] | | | and [place] | + + + | Address | Unknown | + + + | Phone | Unavailable | + + + Support + + + + + | Name | Relationship | Address | Phone | + + + + + | Aileen Nelson | ECON | [address] | | | | | [place] | | | | | [address] | | + + + + + Care Team Providers + +------+ + | Care Quality Assurance Engineer Name | Role | Phone | + [...] Ted Navarro | | | | | [place], [place] | [place] | | | | | [address] | [address] | | | | | [phone] | [phone] | | | | | | | [...] | + + + | Attending/Visit Provider: MASTER MD, Tessa AGUILAR, , , NICOLAS, | [...]
--- OUTSIDE RECORDS SUMMARY | ~2019-08-11 | XMS | Encounter Summary ---
Demographics + + + | Address | [address] [place] [address] | | | [place] [address] | + + + | Home Phone | | + + + | Preferred Language | Unknown | + + + | Marital Status | Single | + + + | Nondenominational Affiliation | PEN | + + + | Race | White | + + + | Ethnic Group | Not or | + + + Author + + + | Author | [facility] | + + + | Organization | [facility] | + + + | Address | Unknown | + + + | Phone | Unavailable | + + + Support + + + + + | Name | Relationship | Address | Phone | + + + + + | Aileen Nelson | ECON | [address] | | | | | [place] [address] | | + + + + + Care Team Providers + +------+ + | Care Electro Plater Name | Role | Phone | + +------+ + PCP | Unavailable | + +------+ + Encounter Details +--------+ + + + + | Date | Type | Department | Care Team | Description | +--------+ + + + + | 05/07/ | Results | NON[facility] | [facility] | | | 2014 | Only | Department | [facility] | | | | | | [address] [place] | | | | | | [place] [address] | | | | | | [phone] | | | | | | | [...] + | CAP GLU,POC | Routin | 05/07/2015 | | Results for this | | | e | 8:23 PM | | procedure are in the | | | | PDT | | results section. | + +--------+ + + + | CAP GLU,POC | Routin | 05/07/2015 | | Results for this | | | e | 4:47 PM | | procedure are in the | | | | PDT | | results section. | + +--------+ + + + | CAP GLU,POC | Routin | 05/07/2015 | | Results for this | | | e | 11:57 AM | | procedure are in the | | | | PDT | | results section. | + +--------+ + + + | RBC MORPHOLOGY | Routin | 05/07/2015 | | Results for this | | | e | 6:48 AM | | procedure are in the | | | | PDT | | results section. | + +--------+ + + + | CBC W/DIFF, REFLEX | Routin | 05/07/2015 | | Results for this | | | e | 6:48 AM | | procedure are in the | | | | PDT | | results section. | + +--------+ + + + | INR | Routin | 05/07/2015 | | Results for this | | | e | 6:48 AM | | procedure are in the | | | | PDT | | results section. | + +--------+ + + + | BASIC METABOLIC SET | Routin | 05/07/2015 | | Results for this | | (NA, K, CL, TCO2, | e | 6:48 AM | | procedure are in the | | BUN, CR, GLU, CA) | | PDT | | results section. | + +--------+ + + + documented in this encounter Results CAP GLU,POC (05/07/2015 8:23 PM PDT) + + + + + -+ | Component | Value | Ref Range | Performed | Pathologist | | | | | At | Signature | + + + + + -+ | BLOOD | 153 (A)Comment: Meter | 70 - 110 MG/DL | [facility] | | | GLUCOSE, | ID: [id number]: | | OF CARE | | | POC | [id number] Francoise LaRchanda | | TESTING | | | |Yarn Preparation Supervisor: [id number] Brasrey LaRchanda | | | | | | | | | | + + + + + -+ + + | Specimen | + + | | + + + +---------+ + + | Performing | Address | City/State/Zipcode | Phone Number | | Organization | | | | + +---------+ + + | [facility] | | | | | TESTING | | | | + +---------+ + + CAP GLU,POC (05/07/2015 4:47 PM PDT) + + + + + + | Component | Value | Ref Range | Performed | Pathologist | | | | | At | Signature | + + + + + + | BLOOD | 127 (A)Comment: Meter | 70 - 110 MG/DL | [facility] | | | GLUCOSE, | ID: [id number]: | | OF CARE | | | POC | [id number] [place] | | TESTING | | | | Reshma | | | | | | | [...] | | | + +---------+ + + AIDE MCALLISTER (05/07/2015 11:57 AM PDT) + + + + + + | Component | Value | Ref Range | Performed | Pathologist | | | | | At | Signature | + + + + + + | BLOOD | 162 (A)Comment: Meter | 70 - 110 MG/DL | [facility] | | | GLUCOSE, | ID: [id number]: | | OF CARE | | | POC | [id number] [place] | | TESTING | | | | Reshma | | | | | | | [...] | | + +---------+ + + INR (05/07/2015 6:48 AM PDT) + + + + + + | Component | Value | Ref Range | Performed | Pathologist | | | | | At | Signature | + + + + + + | PROTHROMBIN | 28.3 (A) | 8.6 - 11.2 SEC | [facility] | | | TIME | | | [facility] | | | | | | LABORATORY | | + + + + + + | INR | 2.8 (A) | 1.0 - 1.1 | [facility] [...] | | | + +---------+ + + BASIC METABOLIC SET (NA, K, CL, TCO2, BUN, CR, GLU, CA) (05/07/2015 6:48 AM PDT) + +---------+ + + + | Component | Value | Ref Range | Performed | Pathologist | | | | | At | Signature | + +---------+ + + + | SODIUM, | 139 | 137 - 146 | [facility] | | | PLASMA | | mmol/L | [facility] | | | (LAB) | | | LABORATORY | | + +---------+ + + + | POTASSIUM, | 3.0 (A) | 3.5 - 5.2 | [facility] | | | PLASMA | | mmol/L | [facility] | | | (LAB) | | | LABORATORY | | + +---------+ + + + | CO2 | 28 (A) | 20 - 27 mmol/L | [facility] | | | | | | [facility] | | | | | | LABORATORY | | + +---------+ + + + | CHLORIDE, | 98 | 96 - 106 mmol/L | [facility] | | | PLASMA | | | [facility] | | | (LAB) | | | LABORATORY | | + +---------+ + + + | ANION GAP | 13 | 12 - 20 MEQ/L | [facility] | | | | | | [facility] | | | | | | LABORATORY | | + +---------+ + + + | GLUCOSE, | 88 | 70 - 105 mg/dL | [facility] | | | PLASMA | | | [facility] | | | (LAB) | | | LABORATORY | | + +---------+ + + + | BUN, PLASMA | 45 (A) | 6 - 26 mg/dL | [facility] | | | (LAB) | | | [facility] | | | | | | LABORATORY | | + +---------+ + + + | CREATININE | 1.7 (A) | 0.9 - 1.3 mg/dL | [facility] | | | PLASMA | | | [facility] | | | (LAB) | | | LABORATORY | | + +---------+ + + + | BUN/CREATIN | 26 (A) | 6 - 20 RATIO | [facility] | | | INE RATIO | | | [facility] | | | | | | LABORATORY | | + +---------+ + + + | CALCIUM, | 8.9 | 8.5 - 10.8 | [facility] | | | PLASMA | | mg/dL | [facility] | | | (LAB) | | | LABORATORY | | + +---------+ + + + | ESTIMATED | 43.3 | >60 | [facility] | | | GFR | | | [facility] | | | [...] | | | + +---------+ + + RBC MORPHOLOGY (05/07/2015 6:48 AM PDT) + + + + + + | Component | Value | Ref Range | Performed | Pathologist | | | | | At | Signature | + + + + + + | RBC | 1+ ANISO | NORMAL | [facility] | | | MORPHOLOGY | | | [facility] | | | | | | LABORATORY | | + + + + + + | RBC | 1+ POLYCHROMASIA | NORMAL | [facility] | | | MORPHOLOGY | | | [facility] | | | [...] | | | + +---------+ + + CBC W/DIFF, REFLEX (05/07/2015 6:48 AM PDT) + + + + + + | Component | Value | Ref Range | Performed | Pathologist | | | | | At | Signature | + + + + + + | WHITE BLOOD | 8.8 | 3.2 - 11.0 X10 | [facility] | | | CELL COUNT | | 3/uL | [facility] | | | | | | LABORATORY | | + + + + + + | HEMOGLOBIN | 13.2 | 12.0 - 18.0 | [facility] | | | | | g/dL | [facility] | | | | | | LABORATORY | | + + + + + + | RED BLOOD | 4.14 | 3.5 - 6.0 X10 | [facility] | | | CELL COUNT | | 6/uL | [facility] | | | | | | LABORATORY | | + + + + + + | HEMATOCRIT | 39.0 | 37.0 - 52.0 % | [facility] | | | | | | [facility] | | | | | | LABORATORY | | + + + + + + | MCV | 94.2 | 82 - 100 fL | [facility] | | | | | | [facility] | | | | | | LABORATORY | | + + + + + + | MCH | 31.8 | 28.0 - 34.7 pg | [facility] | | | | | | [facility] | | | | | | LABORATORY | | + + + + + + | MCHC | 33.8 | 32 - 36 g/dL | [facility] | | | | | | [facility] | | | | | | LABORATORY | | + + + + + + | RDW | 16.6 (A) | 12 - 16 % | [facility] | | | | | | [facility] | | | | | | LABORATORY | | + + + + + + | PLATELET | 351 (A) | 140 - 350 X10 3 | [facility] | | | COUNT | | | [facility] | | | | | | LABORATORY | | + + + + + + | MPV | 8.7 | 7.0 - 12.0 fL | [facility] | | | | | | [facility] | | | | | | LABORATORY | | + + + + + + | NEUTROPHIL | 60.0 | 40 - 80 % | [facility] | | | % | | | [facility] | | | | | | LABORATORY | | + + + + + + | LYMPHOCYTE | 27.0 | 15 - 45 % | [facility] | | | % | | | [facility] | | | | | | LABORATORY | | + + + + + + | EOS % | 3.0 | 0 - 6.0 % | [facility] | | | | | | [facility] | | | | | | LABORATORY | | + + + + + + | BASO % | 1.4 | 0 - 2.0 % | [facility] | | | | | | [facility] | | | | | | LABORATORY | | + + + + + + | MONOCYTE % | 8.6 | 4.0 - 12.0 % | [facility] | | | | | [...]
--- OUTSIDE RECORDS SUMMARY | ~2019-08-11 | XMS | Encounter Summary ---
Demographics + + + | Address | [address] | | | [place] [address] | + + + | Home Phone | | + + + | Preferred Language | Unknown | + + + | Marital Status | | + + + | Hoahaoism Affiliation | [id number] | + + + | Race | Unknown | + + + | Ethnic Group | Unknown | + + + Author + + + | Author | [facility] | | | and [place] | + + + | Organization | [facility] | | | and [place] | + + + | Address | Unknown | + + + | Phone | Unavailable | + + + Support + + + + + | Name | Relationship | Address | Phone | + + + + + | Aileen Nelson | ECON | [address] | | | | | [place] | | | | | [address] | | + + + + + Care Team Providers + +------+ + | Care Machine Welder Name | Role | Phone | + +------+ + | Jericho Cao MD | PCP | | + +------+ + Encounter Details +--------+ + + + + | Date | Type | Department | Care Team | Description | +--------+ + + + + | 01/23/ | Orders Only | [facility] | Jericho Cao | | | 2019 | | CONVERSION [address] | MD [address] | | | | | [address] | [place] | | | | | [place], [place] | [place] [address] | | | | | [address] | [phone] | | | | | [phone] | | | +--------+ + + + [...] + + + | Comments: quit in 1984 | + + + + + | [...] + + documented as of this encounter Functional Status + + + [...] | + +--------+ + + + | ECHO INTERPRETATION | Routin | 01/23/2019 | | Results for this | | OF OUTSIDE FILMS | e | 1:40 PM | | procedure are in the | | | | PDT | | results section. | + +--------+ + + + documented in this encounter Results ECHO Interpretation of Outside Films (01/23/2019 1:40 PM PDT) + + | Specimen | + + | | + + + + + | Impressions | Performed At | + + + | 1. Overall left ventricular systolic function is normal with an EF | | | between 55 - 60%. 2. There is moderate concentric left ventricular | | | hypertrophy. 3. The right ventricle is normal in size and function. | | | 4. The left atrium is markedly enlarged. 5. The right atrium is | | | markedly enlarged. 6. No clinically significant valvular abnormalities | | | are noted. 7. There are no prior echocardiographic studies available | | | for comparison. | | + + + + + + | Narrative | Performed At | + + + | Patient Name: Sarthak Nelson Date of : 1950 | | | Performing Physician: MARISOL DUBOSE MD | | | | | | INDICATIONS CHF CONCLUSIONS 1. Overall | | | left ventricular systolic function is normal with an EF between 55 - | | | 60%. 2. There is moderate concentric left ventricular hypertrophy. | | | 3. The right ventricle is normal in size and function. 4. The left | | | atrium is markedly enlarged. 5. The right atrium is markedly | | | enlarged. 6. No clinically significant valvular abnormalities are | | | noted. 7. There are no prior echocardiographic studies available for | | | comparison. FINDINGS -------- ECG rhythm: Atrial | | | fibrillation. Study: A 2-dimensional transthoracic echocardiogram | | | with m-mode, spectral and color flow Doppler was perfomed at [facility]. | | | Study: This was a technically difficult study with suboptimal views. | | | Left Ventricle: Overall left ventricular systolic function is normal | | | with an EF between 55 - 60%. Left Ventricle: The left ventricle | | | cavity size is normal. Left Ventricle: There is moderate concentric | | | left ventricular hypertrophy. Left Ventricle: No regional wall motion | | | abnormalities. Left Ventricle: Cannot assess diastolic function due | | | to atrial fibrillation. Right Ventricle: The right ventricle is | | | normal in size and function. Right Ventricle: Pacer/ICD wire seen. | | | Left Atrium: The left atrium is markedly enlarged. Right Atrium: The | | | right atrium is markedly enlarged. Right Atrium: Pacemaker wire seen | | | in the right atrial cavity. Aortic Valve: Aortic valve is mildly | | | thickened. Aortic Valve: The aortic valve appears to be trileaflet. | | | Aortic Valve: There is mild aortic valve sclerosis without stenosis. | | | Aortic Valve: There is no evidence of aortic regurgitation. Mitral | | | Valve: Mild mitral regurgitation is present. Mitral Valve: No | | | evidence of MVP. Mitral Valve: Mild mitral annular calcification | | | present. Tricuspid Valve: The tricuspid valve appears structurally | | | normal. Tricuspid Valve: Trace tricuspid regurgitation present. | | | Tricuspid Valve: There is no evidence of pulmonary hypertension. | | | Tricuspid Valve: The right ventricular systolic pressure (pulmonary | | | artery systolic pressure), as measured by Doppler, is 33.17mmHg. | | | Pulmonic Valve: The pulmonic valve is normal. Pulmonic Valve: Trace | | | pulmonic regurgitation. Pericardium: There is no pericardial | | | effusion. IVC/Hepatic Veins: The IVC is normal size (1.5-2.5cm) and | | | collapses <50% with sniff, consistent with central venous pressures of | | | 10-15mmHg. Aorta: The aortic root, ascending aorta and aortic arch | | | are normal. Mass: No mass visualized Thrombus: No clot visualized | | | Thrombus: No vegetation visualized. Septum: No ASD observed. Septum: | | | No VSD observed. MEASUREMENTS Ao asc: 3.49 cm | | | Ao Diam: 3.56 cm Ao sinus: 3.[address] junct: 3.08 cm | | | IVC: 2.07 cm LA Major: 6.53 cm EDV(Teich): 77.48 ml IVSd: | | | 1.48 cm LVIDd: 4.17 cm LVPWd: 1.51 cm LVOT Diam: 2.49 | | | cm %FS: 29.61 % EF(Teich): 57.05 % ESV(Teich): 33.27 ml | | | LVIDs: 2.93 cm SV(Teich): 44.21 ml RV Major: 7.70 cm RV | | | Minor: 3.30 cm RV Minor: 3.14 cm LVEF MOD A2C: 55.14 % SV | | | MOD A2C: 71.76 ml LVEF MOD A4C: 49.69 % SV MOD A4C: 68.75 | | | ml EF Biplane: 52.42 % LVEDV MOD BP: 136.11 ml LVESV MOD BP: | | | 64.75 ml LVEDV MOD A2C: 130.14 ml LVLd A2C: 8.26 cm LVEDV | | | MOD A4C: 138.36 ml LVLd A4C: 8.52 cm LVESV MOD A2C: 58.38 | | | ml LVLs A2C: 7.03 cm LVESV MOD A4C: 69.60 ml LVLs A4C: | | | 7.30 cm LAESV(A-L): 154.11 ml LAESV Index (A-L): 56.04 ml/m2 | | | LAAs A2C: 38.73 cm2 LAESV A-L A2C: 174.50 ml LAESV MOD A2C: | | | 167.16 ml LALs A2C: 7.29 cm LAAs A4C: 30.93 cm2 LAESV A-L | | | A4C: 123.07 ml LAESV MOD A4C: 117.61 ml LALs A4C: 6.59 cm | | | RAAs: 29.75 cm2 RAESV A-L: 106.29 ml RAESV MOD: 104.36 ml | | | RALs: 7.07 cm TAPSE: 1.63 cm AV Env.Ti: 293.94 ms AV | | | maxP.81 mmHg AV meanP.90 mmHg AV Vmax: 0.97 m/s AV | | | Vmean: 0.64 m/s AV VTI: 18.82 cm JANAE Vmax: 3.41 cm2 JANAE | | | (VTI): 3.65 cm2 AVAI Vmax: 0.00 cm2/m2 AVAI (VTI): 0.00 | | | cm2/m2 LVOT Env.Ti: 310.90 ms LVOT maxP.86 mmHg LVOT | | | meanP.99 mmHg LVSI Dopp: 24.99 ml/m2 LVSV Dopp: 68.73 | | | ml LVOT Vmax: 0.68 m/s LVOT Vmean: 0.45 m/s LVOT VTI: | | | 14.06 cm MV E Rodney: 1.16 m/s RAP: 10 mmHg RV S': 0.07 m/s | | | RVSP: 33.16 mmHg TR maxP.16 mmHg TR Vmax: 2.40 m/s | | | Hydrographic Engineer: Authenticated by: MARISOL DUBOSE MD Report Date/Time: | | | -- [id number] | | + + + + + | Procedure Note | + + | Quintin Amaya Conversion - 05/11/2019 1:36 PM PDT Patient Name: Karyn Nelson of | | : 1950 Performing Physician: MARISOL DUBOSE, | | INDICATIONS C | | HF CONCLUSIONS 1. Overall left ventricular systolic function is normal with an | | EF between 55 - 60%.2. There is moderate concentric left ventricular hypertrophy.3. The | | right ventricle is normal in size and function.4. The left atrium is markedly | | enlarged.5. The right atrium is markedly enlarged. 6. No clinically significant valvular | | abnormalities are noted. 7. There are no prior echocardiographic studies available for | | comparison. FINDINGS--------ECG rhythm: Atrial fibrillation.Study: A 2-dimensional | | transthoracic echocardiogram with m-mode, spectral and color flow Doppler was perfomed | | at [facility].Study: This was a technically difficult study with suboptimal views.Left | | Ventricle: Overall left ventricular systolic function is normal with an EF between 55 - | | 60%.Left Ventricle: The left ventricle cavity size is normal.Left Ventricle: There is | | moderate concentric left ventricular hypertrophy.Left Ventricle: No regional wall motion | | abnormalities.Left Ventricle: Cannot assess diastolic function due to atrial | | fibrillation.Right Ventricle: The right ventricle is normal in size and function.Right | | Ventricle: Pacer/ICD wire seen.Left Atrium: The left atrium is markedly enlarged.Right | | Atrium: The right atrium is markedly enlarged.Right Atrium: Pacemaker wire seen in the | | right atrial cavity.Aortic Valve: Aortic valve is mildly thickened.Aortic Valve: The | | aortic valve appears to be trileaflet.Aortic Valve: There is mild aortic valve sclerosis | | without stenosis.Aortic Valve: There is no evidence of aortic regurgitation.Mitral | | Valve: Mild mitral regurgitation is present.Mitral Valve: No evidence of MVP.Mitral | | Valve: Mild mitral annular calcification present.Tricuspid Valve: The tricuspid valve | | appears structurally normal.Tricuspid Valve: Trace tricuspid regurgitation | | present.Tricuspid Valve: There is no evidence of pulmonary hypertension.Tricuspid Valve: | | The right ventricular systolic pressure (pulmonary artery systolic pressure), as | | measured by Doppler, is 33.17mmHg.Pulmonic Valve: The pulmonic valve is normal.Pulmonic | | Valve: Trace pulmonic regurgitation.Pericardium: There is no pericardial | | effusion.IVC/Hepatic Veins: The IVC is normal size (1.5-2.5cm) and collapses <50% with | | sniff, consistent with central venous pressures of 10-15mmHg.Aorta: The aortic root, | | ascending aorta and aortic arch are normal.Mass: No mass visualizedThrombus: No clot | | visualizedThrombus: No vegetation visualized.Septum: No ASD observed.Septum: No VSD | | observed. MEASUREMENTS Ao asc: 3.49 cmAo Diam: 3.56 cmAo sinus: 3.78 | | cmAo st junct: 3.08 cmIVC: 2.07 cmLA Major: 6.53 cmEDV(Teich): 77.48 mlIVSd: | | 1.48 cmLVIDd: 4.17 cmLVPWd: 1.51 cmLVOT Diam: 2.49 cm%FS: 29.61 %EF(Teich): | | 57.05 %ESV(Teich): 33.27 mlLVIDs: 2.93 cmSV(Teich): 44.21 mlRV Major: 7.70 cmRV | | Minor: 3.30 cmRV Minor: 3.14 cmLVEF MOD A2C: 55.14 %SV MOD A2C: 71.76 mlLVEF MOD | | A4C: 49.69 %SV MOD A4C: 68.75 mlEF Biplane: 52.42 %LVEDV MOD BP: 136.11 mlLVESV | | MOD BP: 64.75 mlLVEDV MOD A2C: 130.14 mlLVLd A2C: 8.26 cmLVEDV MOD A4C: 138.36 | | mlLVLd A4C: 8.52 cmLVESV MOD A2C: 58.38 mlLVLs A2C: 7.03 cmLVESV MOD A4C: 69.60 | | mlLVLs A4C: 7.30 cmLAESV(A-L): 154.11 mlLAESV Index (A-L): 56.04 ml/m2LAAs A2C: | | 38.73 [id number] A-L A2C: 174.50 mlLAESV MOD A2C: 167.16 mlLALs A2C: 7.29 cmLAAs | | A4C: 30.93 [id number] A-L A4C: 123.07 mlLAESV MOD A4C: 117.61 mlLALs A4C: 6.59 | | cmRAAs: 29.75 [id number] A-L: 106.29 mlRAESV MOD: 104.36 mlRALs: 7.07 cmTAPSE: | | 1.63 cmAV Env.Ti: 293.94 msAV maxP.81 mmHgAV meanP.90 mmHgAV Vmax: 0.97 | | m/Merrick Vmean: 0.64 m/Merrick VTI: 18.82 cmAVA Vmax: 3.41 cm2AVA (VTI): 3.65 [id number] | | Vmax: 0.00 cm2/m2AVAI (VTI): 0.00 cm2/m2LVOT Env.Ti: 310.90 msLVOT maxP.86 | | mmHgLVOT meanP.99 mmHgLVSI Dopp: 24.99 ml/m2LVSV Dopp: 68.73 mlLVOT Vmax: | | 0.68 m/sLVOT Vmean: 0.45 m/sLVOT VTI: 14.06 cmMV E Rodney: 1.16 m/sRAP: 10 mmHgRV | | S': 0.07 m/sRVSP: 33.16 mmHgTR maxP.16 mmHgTR Vmax: 2.40 m/s | | Hydrographic Engineer:Authenticated by: Wilbur GROSS Date/Time: -[id number] | | IMPRESSION: 1. Overall left ventricular systolic function is normal with an EF between | | 55 - 60%.2. There is moderate concentric left ventricular hypertrophy.3. The right | | ventricle is normal in size and function.4. The left atrium is markedly enlarged.5. The | | right atrium is markedly enlarged. 6. No clinically significant valvular abnormalities | | are noted. 7. There are no prior echocardiographic studies available for comparison. | | | |MEASUREMENTS | | | |Ao asc: 3.49 cm | |Ao Diam: 3.56 cm | |Ao sinus: 3.78 cm | |Ao st junct: 3.08 cm | |IVC: 2.07 cm | |LA Major: 6.53 cm | |EDV(Teich): 77.48 ml | |IVSd: 1.48 cm | |LVIDd: 4.17 cm | |LVPWd: 1.51 cm | |LVOT Diam: 2.49 cm | |%FS: 29.61 % | |EF(Teich): 57.05 % | |ESV(Teich): 33.27 ml | |LVIDs: 2.93 cm | |SV(Teich): 44.21 ml | |RV Major: 7.70 cm | |RV Minor: 3.30 cm | |RV Minor: 3.14 cm | |LVEF MOD A2C: 55.14 % | |SV MOD A2C: 71.76 ml | |LVEF MOD A4C: 49.69 % | |SV MOD A4C: 68.75 ml | |EF Biplane: 52.42 % | |LVEDV MOD BP: 136.11 ml | |LVESV MOD BP: 64.75 ml | |LVEDV MOD A2C: 130.14 ml | |LVLd A2C: 8.26 cm | |LVEDV MOD A4C: 138.36 ml | |LVLd A4C: 8.52 cm | |LVESV MOD A2C: 58.38 ml | |LVLs A2C: 7.03 cm | |LVESV MOD A4C: 69.60 ml | |LVLs A4C: 7.30 cm | |LAESV(A-L): 154.11 ml | |LAESV Index (A-L): 56.04 ml/m2 | |LAAs A2C: 38.73 cm2 | |LAESV A-L A2C: 174.50 ml | |LAESV MOD A2C: 167.16 ml | |LALs A2C: 7.29 cm | |LAAs A4C: 30.93 cm2 | |LAESV A-L A4C: 123.07 ml | |LAESV MOD A4C: 117.61 ml | |LALs A4C: 6.59 cm | |RAAs: 29.75 cm2 | |RAESV A-L: 106.29 ml | |RAESV MOD: 104.36 ml | |RALs: 7.07 cm | |TAPSE: 1.63 cm | |AV Env.Ti: 293.94 ms | |AV maxP.81 mmHg | |AV meanP.90 mmHg | |AV Vmax: 0.97 m/s | |AV Vmean: 0.64 m/s | |AV VTI: 18.82 cm | |JANAE Vmax: 3.41 cm2 | |JANAE (VTI): 3.65 cm2 | |AVAI Vmax: 0.00 cm2/m2 | |AVAI (VTI): 0.00 cm2/m2 | |LVOT Env.Ti: 310.90 ms | |LVOT maxP.86 mmHg | |LVOT meanP.99 mmHg | |LVSI Dopp: 24.99 ml/m2 | |LVSV Dopp: 68.73 ml | |LVOT Vmax: 0.68 m/s | |LVOT Vmean: 0.45 m/s | |LVOT VTI: 14.06 cm | |MV E Rodney: 1.16 m/s | |RAP: 10 mmHg | |RV S': 0.07 m/s | |RVSP: 33.16 mmHg | |TR maxP.16 mmHg | |TR Vmax: 2.40 m/s | | | |Hydrographic Engineer: | |Authenticated by: MARISOL DUBOSE MD | |Report Date/Time: -- [id number] | | | |IMPRESSION: | |1. Overall left ventricular systolic function is normal with an EF between 55 - 60%. | |2. There is moderate concentric left ventricular hypertrophy. | |3. The right ventricle is normal in size and function. | |4. The left atrium is markedly enlarged. | |5. The right atrium is markedly enlarged. 6. No clinically significant valvular abnormaliti es are noted. 7. There are no prior echocardiographic studies available for comparison. | + + documented in this encounter Visit Diagnoses Not on filedocumented in this encounter"
--- OUTSIDE RECORDS SUMMARY | ~2019-08-11 | XMS | Encounter Summary ---
Demographics + + + | Address | [address] [place] [address] | | | [place] [address] | + + + | Home Phone | | + + + | Preferred Language | Unknown | + + + | Marital Status | Single | + + + | Sikhism Affiliation | PEN | + + + | Race | White | + + + | Ethnic Group | Not or | + + + Author + + + | Author | [facility] | + + + | Organization | [facility] | + + + | Address | Unknown | + + + | Phone | Unavailable | + + + Support + + + + + | Name | Relationship | Address | Phone | + + + + + | Aileen Nelson | ECON | [address] | | | | | [place] [address] | | + + + + + Care Team Providers + +------+ + | Care Coal Unloader Name | Role | Phone | + +------+ + | Romain Harrington MD | PCP | | + +------+ + Encounter Details +--------+ + + + + | Date | Type | Department | Care Team | Description | +--------+ + + + + | 05/10/ | Results | NON-[facility] | [facility] | | | 2014 | Only | Department | [address] [address] | | | | | | [place] [address] | | | | | | [place] [address] | | | | | | [phone] | | | | | | | [...] + | CAP GLU,POC | Routin | 05/10/2015 | | Results for this | | | e | 12:33 PM | | procedure are in the | | | | PDT | | results section. | + +--------+ + + + | CAP GLU,POC | Routin | 05/10/2015 | | Results for this | | | e | 8:23 AM | | procedure are in the | | | | PDT | | results section. | + +--------+ + + + | RBC MORPHOLOGY | Routin | 05/10/2015 | | Results for this | | | e | 4:50 AM | | procedure are in the | | | | PDT | | results section. | + +--------+ + + + | DIFF SCAN | Routin | 05/10/2015 | | Results for this | | | e | 4:50 AM | | procedure are in the | | | | PDT | | results section. | + +--------+ + + + | CBC W/DIFF, REFLEX | Routin | 05/10/2015 | | Results for this | | | e | 4:50 AM | | procedure are in the | | | | PDT | | results section. | + +--------+ + + + | INR | Routin | 05/10/2015 | | Results for this | | | e | 4:50 AM | | procedure are in the | | | | PDT | | results section. | + +--------+ + + + | BASIC METABOLIC SET | Routin | 05/10/2015 | | Results for this | | (NA, K, CL, TCO2, | e | 4:50 AM | | procedure are in the | | BUN, CR, GLU, CA) | | PDT | | results section. | + +--------+ + + + documented in this encounter Results CAP GLU,POC (05/10/2015 12:33 PM PDT) + + + + + + | Component | Value | Ref Range | Performed | Pathologist | | | | | At | Signature | + + + + + + | BLOOD | 123 (A)Comment: Meter | 70 - 110 MG/DL | [facility] | | | GLUCOSE, | ID: [id number]: | | OF CARE | | | POC | [id number] Rowena Williamson | | TESTING | | | |Manager Financial Services: [id number] Rowena Williamson | | | | | | | [...] | | + +---------+ + + CAP GLUPOC (05/10/2015 8:23 AM PDT) + + + + + + | Component | Value | Ref Range | Performed | Pathologist | | | | | At | Signature | + + + + + + | BLOOD | 93Comment: Meter ID: | 70 - 110 MG/DL | [facility] | | | GLUCOSE, | [id number]: | | OF CARE | | | POC | [id number] Rowena Williamson | | TESTING | | | |Manager Financial Services: [id number] Rowena Williamson | | | | | | | [...] K, CL, TCO2, BUN, CR, GLU, CA) (05/10/2015 4:50 AM PDT) + +---------+ + + + | Component | Value | Ref Range | Performed | Pathologist | | | | | At | Signature | + +---------+ + + + | SODIUM, | 140 | 137 - 146 | [facility] | | | PLASMA | | mmol/L | [facility] | | | (LAB) | | | LABORATORY | | + +---------+ + + + | POTASSIUM, | 3.7 | 3.5 - 5.2 | [facility] | | | PLASMA | | mmol/L | [facility] | | | (LAB) | | | LABORATORY | | + +---------+ + + + | CO2 | 29 (A) | 20 - 27 mmol/L | [facility] | | | | | | [facility] | | | | | | LABORATORY | | + +---------+ + + + | CHLORIDE, | 97 | 96 - 106 mmol/L | [facility] [...] +---------+ + + + | GLUCOSE, | 97 | 70 - 105 mg/dL | [facility] | | | PLASMA | | | [facility] | | | (LAB) | | | LABORATORY | | + +---------+ + + + | BUN, PLASMA | 49 (A) | 6 - 26 mg/dL | [...] +---------+ + + + | BUN/CREATIN | 28 (A) | 6 - 20 RATIO | [facility] | | | INE RATIO | | | [facility] | | | | | | LABORATORY | | + +---------+ + + + | CALCIUM, | 9.1 | 8.5 - 10.8 | [facility] | | | PLASMA | | mg/dL | [facility] | | | (LAB) | | | LABORATORY | | + +---------+ + + + | ESTIMATED | 43.3 | >60 | [facility] | | | GFR | | | [facility] | | | | | | LABORATORY | | + +---------+ + + + | FASTING? | UNK | HR | [facility] | | | | | [...] | + +---------+ + + RBC MORPHOLOGY (05/10/2015 4:50 AM PDT) + + + + + + | Component | Value | Ref Range | Performed | Pathologist | | | | | At | Signature | + + + + + + | RBC | 2+ ANISOCYTOSIS | NORMAL | [facility] | | | [...] | | | + +---------+ + + DIFF SCAN (05/10/2015 4:50 AM PDT) + + + + + + | Component | Value | Ref Range | Performed | Pathologist | | | | | At | Signature | + + + + + + | DIFF | AGREE | | [facility] | | | COMMENTS | Comment: | | [facility] | | | | AGREE= | | LABORATORY | | | | < 10 % BANDS | | | | | | < 10 % EOS OR BASOS | | | | | | NO REACTIVE LYMPHS | | | | | | NO IMMATURE CELLS | | | | | | | [...] + +---------+ + + CBC W/DIFF, REFLEX (05/10/2015 4:50 AM PDT) + + + + + + | Component | Value | Ref Range | Performed | Pathologist | | | | | At | Signature | + + + + + + | WHITE BLOOD | 9.0 | 3.2 - 11.0 X10 | [facility] | | | CELL COUNT | | 3/uL | [facility] | | | | | | LABORATORY | | + + + + + + | HEMOGLOBIN | 13.0 | 12.0 - 18.0 | [facility] | | | | | g/dL | [facility] | | | | | | LABORATORY | | + + + + + + | RED BLOOD | 4.21 | 3.5 - 6.0 X10 | [facility] | | | CELL COUNT | | 6/uL | [facility] | | | | | | LABORATORY | | + + + + + + | HEMATOCRIT | 40.3 | 37.0 - 52.0 % | [facility] | | | | | | [facility] | | | | | | LABORATORY | | + + + + + + | MCV | 95.7 | 82 - 100 fL | [facility] | | | | | | [facility] | | | | | | LABORATORY | | + + + + + + | MCH | 30.9 | 28.0 - 34.7 pg | [facility] | | | | | | [facility] | | | | | | LABORATORY | | + + + + + + | MCHC | 32.2 | 32 - 36 g/dL | [facility] | | | | | | [facility] | | | | | | LABORATORY | | + + + + + + | RDW | 17.2 (A) | 12 - 16 % | [facility] | | | | | | [facility] | | | | | | LABORATORY | | + + + + + + | PLATELET | 359 (A) | 140 - 350 X10 3 [...] + + + + | NEUTROPHIL | 58.8 | 40 - 80 % | [facility] | | | % | | | [facility] | | | | | | LABORATORY | | + + + + + + | LYMPHOCYTE | 30.2 | 15 - 45 % | [facility] | | | % | | | [facility] | | | | | | LABORATORY | | + + + + + + | EOS % | 2.3 | 0 - 6.0 % | [facility] [...] + + + | MONOCYTE % | 7.8 | 4.0 - 12.0 % | [facility] [...] | | + +---------+ + + INR (05/10/2015 4:50 AM PDT) + + + + + + | Component | Value | Ref Range | Performed | Pathologist | | | | | At | Signature | + + + + + + | PROTHROMBIN | 22.9 (A) | 8.6 - 11.2 SEC | [facility] | | | TIME | | | [facility] | | | | | | LABORATORY | | + + + + + + | INR | 2.3 (A) | 1.0 - 1.1 | [facility] [...] | + +---------+ + + | [facility] | | | | | LABORATORY | | | | + +---------+ + + documented in this encounter Visit Diagnoses Not on filedocumented in this encounter"
--- OUTSIDE RECORDS SUMMARY | ~2019-08-11 | XMS | Encounter Summary ---
Demographics + + + | Address | [address] | | | [place] [address] | + + + | Home Phone | | + + + | Preferred Language | Unknown | + + + | Marital Status | | + + + | Confucianist Affiliation | 1038 | + + + | Race | Unknown | + + + | Ethnic Group | Unknown | + + + Author + + + | Author | and [facility] | | | and [place] | + + + | Organization | [facility] | | | and [place] | + + + | Address | Unknown | + + + | Phone | Unavailable | + + + Support + + + + + | Name | Relationship | Address | Phone | + + + + + | Aileen Nelson | ECON | [address] | | | | | [place] | | | | | [address] | | + + + + + Care Team Providers + +------+ + | Care Glue Sprayer Name | Role | Phone | + [...] Ted Navarro | | | | | [place], [place] | [place] | | | | | [address] | [address] | | | | | [phone] | [phone] | | | | | | | [...] | + +--------+ + + + | PROTIME INR | Routin | 09/16/2017 | | Results for this | | | e | 6:16 AM | | procedure are in the | | | | PST | | results section. | + +--------+ + + + documented in this encounter Results Protime INR (09/16/2017 6:16 AM PST) + + + + + + | Component | Value | Ref Range | Performed | Pathologist | | | | | At | Signature | + + + + + + | INR | 2.3Comment: REFERENCE | | EXTERNAL | | | | RANGE: 0.9 - 1.2 | | LAB | | | | NON-ANTICOAGULATED 2.0 - | | | | | | 3.0 ALL OTHER | | | | | | THERAPEUTIC INDICATIONS | | | | | | 2.5 - 3.5 MECHANICAL | | | | | | HEART VALVES, RECURRENT | | | | | | OR SYSTEMIC EMBOLISM | | | | + + + [...]
--- OUTSIDE RECORDS SUMMARY | ~2019-08-11 | XMS | Encounter Summary ---
Demographics + + + | Address | [address] [place] [address] | | | [place] [address] | + + + | Home Phone | | + + + | Preferred Language | Unknown | + + + | Marital Status | Single | + + + | Yarsanism Affiliation | PEN | + + + | Race | White | + + + | Ethnic Group | Not or | + + + Author + + + | Author | [facility] | + + + | Organization | [facility] | + + + | Address | Unknown | + + + | Phone | Unavailable | + + + Support + + + + + | Name | Relationship | Address | Phone | + + + + + | Aileen Aranda | ECON | [address] | | | | | [place] [address] | | + + + + + Care Team Providers + +------+ + | Care Drafter Patent Name | Role | Phone | + +------+ + | Romain Harrington MD | PCP | | + +------+ + Encounter Details +--------+ + + + + | Date | Type | Department | Care Team | Description | +--------+ + + + + | 05/04/ | Results | NON-[facility] | José [...] + | CAP GLU,POC | Routin | 05/04/2015 | | Results for this | | | e | 8:33 PM | | procedure are in the | | | | PDT | | results section. | + +--------+ + + + | CAP GLU,POC | Routin | 05/04/2015 | | Results for this | | | e | 5:18 PM | | procedure are in the | | | | PDT | | results section. | + +--------+ + + + | SCROTAL ULTRASOUND | Routin | 05/04/2015 | | Results for this | | [id number] | e | 3:22 PM | | procedure are in the | | | | PDT | | results section. | + +--------+ + + + | CAP GLU,POC | Routin | 05/04/2015 | | Results for this | | | e | 12:15 PM | | procedure are in the | | | | PDT | | results section. | + +--------+ + + + | CBC WITH MANUAL | Routin | 05/04/2015 | | Results for this | | DIFFERENTIAL | e | 9:12 AM | | procedure are in the | | | | PDT | | results section. | + +--------+ + + + | INR | Routin | 05/04/2015 | | Results for this | | | e | 9:12 AM | | procedure are in the | | | | PDT | | results section. | + +--------+ + + + | CAP GLU,POC | Routin | 05/04/2015 | | Results for this | | | e | 6:46 AM | | procedure are in the | | | | PDT | | results section. | + +--------+ + + + | CAP GLU,POC | Routin | 05/04/2015 | | Results for this | | | e | 1:42 AM | | procedure are in the | | | | PDT | | results section. | + +--------+ + + + documented in this encounter Results CAP GLU,POC (05/04/2015 8:33 PM PDT) + + + + + + | Component | Value | Ref Range | Performed | Pathologist | | | | | At | Signature | + + + + + + | BLOOD | 280 (A)Comment: Meter | 70 - 110 MG/DL | [facility] | | | GLUCOSE, | ID: [id number]: | | OF CARE | | | POC | [id number] John Goyal | | TESTING | | | |Banquet Coordinator: [id number] John Goyal | | | | | | | [...] | | + +---------+ + + CAP AIDE CARDONA (05/04/2015 5:18 PM PDT) + + + + + -+ | Component | Value | Ref Range | Performed | Pathologist | | | | | At | Signature | + + + + + -+ | BLOOD | 203 (A)Comment: Meter | 70 - 110 MG/DL | [facility] | | | GLUCOSE, | ID: [id number]: | | OF CARE | | | POC | [id number] Adam Guille | | TESTING | | | |Banquet Coordinator: [id number] Adam Guille | | | | | | | [...] | + +---------+ + + SCROTAL ULTRASOUND [id number] (05/04/2015 3:22 PM PDT) + + | Specimen | + + | | + + + + + | Narrative | Performed At | + + + | Name: | [facility] | | [facility] | DEPARTMENT OF | | Phys: Sonu Welch MD | RADIOLOGY | | | | | : 1950 Age: 64 Sex: M | | | Acct: [id number] Loc: 426 2 | | | | | | Exam Date: 05/03/2015 Status: ADM IN | | | Radiology No: | | | Unit No: | | | [id number] EXAM# TYPE/EXAM | | | RESULT | | | [id number] US/SCROTAL ULTRASOUND [id number] | | | TESTICULAR ULTRASOUND | | | INDICATION: Right-sided scrotal pain for a week. No | | | reported trauma. Bilateral tenderness. No | | | prior for comparison. FINDINGS: Testicular | | | ultrasound performed. There is a moderate to large | | | hydrocele on the right. The right testicle demonstrates | | | overall normal homogeneous echogenicity and measures | | | approximately 4.4 x 3.5 x 3.9 cm. There is vascular flow is | | | documented along the proximal aspect. There is no significant color | | | flow seen along the posterior aspect. The waveforms appear | | | normal. The right epididymis appears slightly thickened. The | | | head of the epididymis measures 13 mm. There is mild hyperemic | | | flow within the epididymis which could potentially correspond | | | to epididymitis. There is no hyperemic flow within the right | | | testicle suggesting orchitis. There is a large | | | hydrocele on the left. This measures 6.1 x 6.9 x 9.6 cm. The | | | left testicle is compressed along the posterior aspect of the | | | scrotum. The overall echogenicity of the left testicle appears | | | homogeneous. The left testicle measures approximately 3.2 x 3.3 x 4.2 | | | cm. There is only minimal color flow. Doppler waveforms | | | within the left testicle are abnormal. There is high resistive | | | flow within the left testicle which could potentially | | | correspond to partial torsion. Surgical consultation is | | | recommended. There is minimal flow also seen within the | | | epididymis. The head of the epididymis measures 14 x 23 mm. | | | IMPRESSION 1. Abnormal color flow and | | | abnormal Doppler imaging of the left testicle. There is high | | | resistive flow within the left testicle. This can be seen with | | | partial torsion. Surgical consultation is recommended. | | | 2. Slight amount of increased vascular flow within the right | | | epididymis. This is nonspecific but could correspond to | | | epididymitis. 3. Large bilateral hydroceles. Scrotal | | | thickening on the right and left. 4. There is | | | slight decreased vascular flow within the right testicle. The | | | waveforms appear normal. No definite evidence of torsion on the | | | right. PAGE 1 Signed Report | | | (CONTINUED) | | | Name: SARTHAK ARANDA | | | | | | Phys: Sonu Welch MD | | | : 1950 Age: 64 | | | Sex: M | | | Acct: [id number] Loc: 426 2 | | | Exam Date: 05/03/2015 | | | Status: ADM IN | | | Radiology No: | | | Unit No: [id number] | | | EXAM# TYPE/EXAM RESULT | | | [id number] US/SCROTAL | | | ULTRASOUND [id number] | | | Findings reviewed with Dr. Estes May 04, | | | 2014. [id number] | | | REPORT ELECTRONICALLY SIGNED 05/05/2015 ([id number]) | | | Reported By: Neetu HERNÁNDEZ MD | | | Signed By: Scooter Hernández M.D. | | | | | | Technologist: LISA DICKERSON | | | Electronically signed by: Neetu BUCK | | | SAGAR BARAHONA CC: Romain Harrington MD | | | | | | | | | Transcribed Date/Time: | | | 05/04/2015 (708) Child Support Agent: [email or web address] PAGE | | | 2 Signed Report | | | | | + + + + + | Procedure Note | + + | Interface, Radiology Results - 06/03/2015 10:36 AM PDT | | Name: SARTHAK ARANDA | | Phys: Sonu Welch MD : | | 1950 Age: 64 Sex: M Acct: [id number] | | Loc: 426 2 Exam Date: 05/03/2015 | | Status: ADM IN Radiology No: | | Unit No: [id number] EXAM# TYPE/EXAM | | RESULT [id number] US/SCROTAL ULTRASOUND | | [id number] TESTICULAR ULTRASOUND | | INDICATION: Right-sided scrotal pain for a week. No reported trauma. Bilateral | | tenderness. No prior for comparison. FINDINGS: Testicular | | ultrasound performed. There is a moderate to large hydrocele on the right. | | The right testicle demonstrates overall normal homogeneous echogenicity and | | measures approximately 4.4 x 3.5 x 3.9 cm. There is vascular flow is documented | | along the proximal aspect. There is no significant color flow seen along the | | posterior aspect. The waveforms appear normal. The right epididymis appears slightly | | thickened. The head of the epididymis measures 13 mm. There is mild hyperemic flow | | within the epididymis which could potentially correspond to epididymitis. There | | is no hyperemic flow within the right testicle suggesting orchitis. There is | | a large hydrocele on the left. This measures 6.1 x 6.9 x 9.6 cm. The left testicle | | is compressed along the posterior aspect of the scrotum. The overall echogenicity of | | the left testicle appears homogeneous. The left testicle measures approximately 3.2 | | x 3.3 x 4.2 cm. There is only minimal color flow. Doppler waveforms within the | | left testicle are abnormal. There is high resistive flow within the left testicle | | which could potentially correspond to partial torsion. Surgical consultation is | | recommended. There is minimal flow also seen within the epididymis. The head of the | | epididymis measures 14 x 23 mm. IMPRESSION 1. Abnormal color flow | | and abnormal Doppler imaging of the left testicle. There is high resistive flow | | within the left testicle. This can be seen with partial torsion. Surgical | | consultation is recommended. 2. Slight amount of increased vascular flow | | within the right epididymis. This is nonspecific but could correspond to | | epididymitis. 3. Large bilateral hydroceles. Scrotal thickening on the right and | | left. 4. There is slight decreased vascular flow within the right testicle. | | The waveforms appear normal. No definite evidence of torsion on the right. | | PAGE 1 Signed Report (CONTINUED) | | Name: ARANDASARTHAK Andrew | | Phys: Sonu Welch MD | | : 1950 Age: 64 Sex: M Acct: | | [id number] Loc: 426 2 Exam Date: | | 05/03/2015 Status: ADM IN Radiology No: | | Unit No: [id number] EXAM# | | TYPE/EXAM RESULT [id number] | | US/SCROTAL ULTRASOUND [id number] Findings | | reviewed with Dr. Estes May 04, 2015. [id number] | | REPORT ELECTRONICALLY SIGNED 05/05/2015 (1635) Reported | | By: Neetu HERNÁNDEZ MD Signed By: Scooter Hernández M.D. | | Technologist: LISA DICKERSON | | Electronically signed by: Neetu HERNÁNDEZ MD CC: Romain Harrington MD | | | | Transcribed Date/Time: 05/04/2015 (1630) | | [facility] PAGE 2 Signed Report | | | | left. | | 4. There is slight decreased vascular flow within the right testicle. | | The waveforms appear normal. No definite evidence of torsion on the | | right. | | | | PAGE 1 Signed Report (CONTINUED) | | | | Name: SARTHAK ARANDA | | Phys: Sonu Welch MD | | : 1950 Age: 64 Sex: M | | Acct: [id number] Loc: 426 2 | | Exam Date: 05/03/2015 Status: ADM IN | | Radiology No: | | Unit No: [id number] | | | | | | | | | |EXAM# TYPE/EXAM RESULT | |[id number] US/SCROTAL ULTRASOUND [id number] | | | | Findings reviewed with Dr. Estes May 04, 2015. | | | | [id number] | | | | | | REPORT ELECTRONICALLY SIGNED 05/05/2015 (1635) | | Reported By: Neetu HERNÁNDEZ MD | | Signed By: Scooter Hernández M.D. | | | | | | | | | | | | | | | | | | | | | | | | | | | | | | | | | | | | | | | | | | | | | | | | | | | | | | Technologist: LISA DICKERSON | | Electronically signed by: Neetu HERNÁNDEZ MD | | CC: Romain Harrington MD | | | | | | Transcribed Date/Time: 05/04/2015 (0199) | | Child Support Agent: [email or web address] | | | | | | PAGE 2 Signed Report | + + + +---------+ + + | Performing | Address | City/State/Zipcode | Phone Number | | Organization | | | | + +---------+ + + | [facility] | | | | | [facility] | | | | + +---------+ + + CAP BRENDANPOC (05/04/2015 12:15 PM PDT) + + + + + -+ | Component | Value | Ref Range | Performed | Pathologist | | | | | At | Signature | + + + + + -+ | BLOOD | 225 (A)Comment: Meter | 70 - 110 MG/DL | [facility] | | | GLUCOSE, | ID: [id number]: | | OF CARE | | | POC | [id number] Adam Han | | TESTING | | | |Banquet Coordinator: [id number] Adam Han | | | | | | | [...] | | + +---------+ + + INR (05/04/2015 9:12 AM PDT) + + + + + + | Component | Value | Ref Range | Performed | Pathologist | | | | | At | Signature | + + + + + + | PROTHROMBIN | 13.1 (A) | 8.6 - 11.2 SEC | [facility] | | | TIME | | | [facility] | | | | | | LABORATORY | | + + + + + + | INR | 1.3 (A) | 1.0 - 1.1 | [facility] [...] | | + +---------+ + + CBC WITH MANUAL DIFFERENTIAL (05/04/2015 9:12 AM PDT) + + + + + + | Component | Value | Ref Range | Performed | Pathologist | | | | | At | Signature | + + + + + + | WHITE BLOOD | 11.8 (A) | 3.2 - 11.0 X10 | [facility] | | | CELL COUNT | | 3/uL | [facility] | | | | | | LABORATORY | | + + + + + + | HEMOGLOBIN | 12.6 | 12.0 - 18.0 | [facility] | | | | | g/dL | [facility] | | | | | | LABORATORY | | + + + + + + | RED BLOOD | 4.05 | 3.5 - 6.0 X10 | [facility] | | | CELL COUNT | | 6/uL | [facility] | | | | | | LABORATORY | | + + + + + + | HEMATOCRIT | 37.9 | 37.0 - 52.0 % | [facility] | | | | | | [facility] | | | | | | LABORATORY | | + + + + + + | MCV | 93.7 | 82 - 100 fL | [facility] | | | | | | [facility] | | | | | | LABORATORY | | + + + + + + | MCH | 31.2 | 28.0 - 34.7 pg | [facility] | | | | | | [facility] | | | | | | LABORATORY | | + + + + + + | MCHC | 33.3 | 32 - 36 g/dL | [facility] | | | | | | [facility] | | | | | | LABORATORY | | + + + + + + | RDW | 16.7 (A) | 12 - 16 % | [facility] | | | | | | [facility] | | | | | | LABORATORY | | + + + + + + | PLATELET | 353 (A) | 140 - 350 X10 3 | [facility] | | | COUNT | | | [facility] | | | | | | LABORATORY | | + + + + + + | MPV | 8.6 | 7.0 - 12.0 fL | [facility] | | | | | | [facility] | | | | | | LABORATORY | | + + + + + + | NEUTROPHIL | 67.6 | 40 - 80 % | [facility] | | | % | | | [facility] | | | | | | LABORATORY | | + + + + + + | LYMPHOCYTE | 20.9 | 15 - 45 % | [facility] | | | % | | | [facility] | | | | | | LABORATORY | | + + + + + + | EOS % | 2.5 | 0 - 6.0 % | [facility] | | | | | | [facility] | | | | | | LABORATORY | | + + + + + + | BASO % | 1.0 | 0 - 2.0 % | [facility] | | | | | | [facility] | | | | | | LABORATORY | | + + + + + + | MONOCYTE % | 8.0 | 4.0 - 12.0 % | [facility] | | | | | | [facility] | | | | | | LABORATORY | | + + + + + + | NEUTRO % | 69 | 40 - 70 % | [facility] | | | | | | [facility] | | | | | | LABORATORY | | + + + + + + | LYMPHOCYTE | 22 | 10 - 45 % | [facility] | | | %, MANUAL | | | [facility] | | | | | | LABORATORY | | + + + + + + | MONOCYTE%, | 7 | 2 - 10 % | [facility] | | | MANUAL | | | [facility] | | | | | | LABORATORY | | + + + + + + | EOSINOPHIL% | 2 | 0 - 5 % | [facility] | | | , MANUAL | | | [facility] | | | [...] | + +---------+ + + CAP GLU,POC (05/04/2015 6:46 AM PDT) + + + + + + | Component | Value | Ref Range | Performed | Pathologist | | | | | At | Signature | + + + + + + | BLOOD | 224 (A)Comment: Meter | 70 - 110 MG/DL | [facility] | | | GLUCOSE, | ID: [id number]: | | OF CARE | | | POC | [id number] Megan | | TESTING | | | | Viv | | | | | | | [...] | + +---------+ + + CAP GLU,POC (05/04/2015 1:42 AM PDT) + + + + + + | Component | Value | Ref Range | Performed | Pathologist | | | | | At | Signature | + + + + + + | BLOOD | 401 (A)Comment: CRITICAL | 70 - 110 MG/DL | [facility] | | | GLUCOSE, | NOT TEST NOT REPEATED | | OF CARE | | | POC | BY NURSINGMeter ID: | | TESTING | | | | [id number]: | | | | | | [id number] Bruceheron Prettya | | | | | | | [...]
--- OUTSIDE RECORDS SUMMARY | ~2019-08-11 | XMS | Encounter Summary ---
Demographics + + + | Address | [address] | | | [place] [address] | + + + | Home Phone | | + + + | Preferred Language | Unknown | + + + | Marital Status | | + + + | Jain Affiliation | [phone] | + + + | Race | Unknown | + + + | Ethnic Group | Unknown | + + + Author + + + | Author | [facility] | | | and [place] | + + + | Organization | [facility] | | | and [place] | + + + | Address | Unknown | + + + | Phone | Unavailable | + + + Support + + + + + | Name | Relationship | Address | Phone | + + + + + | Aileen Nelson | ECON | [address] | | | | | [place] | | | | | [address] | | + + + + + Care Team Providers + +------+ + | Care Teller Name | Role | Phone | + [...] Ted Navarro | | | | | [place], [place] | [place] | | | | | [id number] | [id number] | | | | | [phone] | [phone] | | | | | | | [...]
--- OUTSIDE RECORDS SUMMARY | ~2019-08-11 | XMS | Encounter Summary ---
Demographics + + + | Address | [address] | | | [place] [address] | + + + | Home Phone | | + + + | Preferred Language | Unknown | + + + | Marital Status | | + + + | Confucianist Affiliation | [id number] | + + + | Race | Unknown | + + + | Ethnic Group | Unknown | + + + Author + + + | Author | [facility] | | | and [place] | + + + | Organization | [facility] | | | and [place] | + + + | Address | Unknown | + + + | Phone | Unavailable | + + + Support + + + + + | Name | Relationship | Address | Phone | + + + + + | Aileen Nelson | ECON | [address] | | | | | [place] | | | | | [phone] | | + + + + + Care Team Providers + +------+ + | Care Facility Service Associate Name | Role | Phone | + +------+ + | Jericho Cao MD | PCP | | + +------+ + Reason for Visit Auth/Cert +--------+--------+ + + + + | Status | Reason | Specialty | Diagnoses / | Referred By | Referred To | | | | | Procedures | Contact | Contact | +--------+--------+ + + + + | | | | Diagnoses | | | | | | | CVA | | | +--------+--------+ + + + + Encounter Details +--------+ + + + + | Date | Type | Department | Care Team | Description | +--------+ + + + + | 06/19/ | Hospital | [facility] | Kolby Sheffield, | Ischemic | | 2018 - | Encounter | MED CTR SUR[facility] | [address] | cerebrovascular | | | | [address] | [place], [place] | accident (CVA) | | 06/22/ | | [place] [address] | [id number] | ([facility]); Stage 3 | | 2018 | | [phone] | | chronic kidney | | | | | | disease ([facility]); IDDM | | | | | | (insulin dependent | | | | | | diabetes mellitus) | | | | | | ([facility]); HIV (human | | | | | | immunodeficiency | | | | | | virus infection) | | | | | | ([facility]); Essential | | | | | | hypertension | +--------+ + + + + Social [...] + + + | Blood Pressure | 124/68 | 06/22/2018 3:00 PM | | | | | PDT | | + + + + + | Pulse | 60 | 06/22/2018 3:00 PM | | | | | PDT | | + + + + + | Temperature | 36.8 C (98.3 F) | 06/22/2018 3:00 PM | | | | | PDT | | + + + + + | Respiratory Rate | 16 | 06/22/2018 3:00 PM | | | | | PDT | | + + + + + | Oxygen Saturation | 96% | 06/22/2018 3:00 PM | | | | | PDT | | + + + + + | Inhaled Oxygen | - | - | | | Concentration | | | | + + + + + | Weight | 169.5 kg (373 lb | 06/19/2018 8:54 PM | | | | 10.9 oz) | PDT | | + + + + + | Height | 188 cm (6' 2") | 06/19/2018 8:54 PM | | | | | PDT | | + + + + + | Body Mass Index | 47.98 | 06/19/2018 8:54 PM | | | | | PDT [...] documented as of this encounter Discharge Summaries Ying Giron MD - 06/22/2018 1:32 PM PDTFormatting of this note might be differe nt from the original. HOSPITALIST DISCHARGE SUMMARY Admit date: 06/19/2018 20:26 Discharge date: 06/22/2018 13:33 Admitting Physician: Kolby Sheffield MD Discharging Physician: Ying Giron MD Primary Care Provider: Jericho Cao MD FINAL DIAGNOSES: Active Hospital Problems Diagnosis Ischemic cerebrovascular accident (CVA) IDDM (insulin dependent diabetes mellitus) HTN (hypertension) CKD (chronic kidney disease) HIV (human immunodeficiency virus infection) REASON FOR ADMISSION: L sided weakness/Slurred speech HOSPITAL COURSE: History of the presenting illness : Sarthak Nelson is a 67 y.o. male with a histor y of IDDM, afib on warfarin, HTN, HIV, Chronic systolic heart failure, CKD3, CVA (x 3 in the past) who presents with L sided weakness of slurred speech. Patient reports at 10:30am on d ay of presentation, standing near dresser and suddenly having weakness. Patient fell to the floor with mildly hitting head. No loss of consciousness. Typically ambulates with walker. P atient crawled to bed and called for EMS. Patient had prior CVAs in the past. Patient report s prior CVA has effected R side. The left sided weakness and slurred speech is new. Patient has been complaint with medications. Patient denies any other symptoms including chest pain, shortness of breath, N/V/D. Patient has been on warfarin. Patient presented to [place]. Patient was out of timeframe fo r TPA at that time. EKG was consistent with atrial fibrillation. UDS was negative. No aurelio kocytosis. Creatinine 1.85. A CTA head and neck was performed showing no acute pathology. 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 At least 90% stenosis of the left proximal ICA and 50% stenosi s of the right proximal ICA. Cavernous carotids are at least 50% narrowed bilaterally. Jana huber was transferred to [place] for further evaluation. For details please refer to the H&P and daily progress notes and consults. Patient's acute hospital medical problems were briefly addressed as follow: 1. Ischemic cerebrovascular accident (CVA) : His presentation includes subtherapeutic INR x 1.5 months. I have stopped his Warfarin and started on NOAC instead. Carotid Ultrasound with out significant stenosis, which is in contrast to [facility]' ultrasound. He has pacer so n ot amenable with MRI and TTE with bubble study--negative. His CVA was primarily cardio embol ic event and he need adequate anticoagulation. 2. Morbid Obesity : He need to work on this as Nutrition counseling was provided 3. IDDM (insulin dependent diabetes mellitus) : On lantus and lispro 4. HTN (hypertension) : Permissive HTN and may need better control in the future. Will add the BB and Continue imdur 5. CKD (chronic kidney disease) : stable and improved 6. RACHELLE : On CPAP 7. HIV (human immunodeficiency virus infection) : Cont Abacavir,dolutegravir,lamivudi 8. Chronic leg edema from, VEN[facility] STASIS : [facility] PROCEDURES : None CONSULTATIONS: In patient Rehab, PT, OT, ACETYLENE TORCH SOLDERER IMAGING PERFORMED: Ct Head Wo Contrast Result Date: 06/21/2018 TECHNIQUE: Noncontrast axial CT imaging was obtained through the brain with coronal and sag ittal reformats. CLINICAL INFORMATION: Re- assess the size of the CVA ( for theraleutic purp ose to start on NOAC) COMPARISON: CT dated 06/20/2018. FINDINGS: Stable appearance of the rig ht insula acute to subacute infarction. No new infarction. No intracranial hemorrhage, mass , or mass effect. Remote left insular, temporal, and frontal parietal infarctions are stable in appearance. Chronic right basal ganglia lacunar infarctions are again noted. Prominent bilateral carotid siphon and distal vertebral artery calcifications. Stable cerebral volume loss with prominence of the ventricles and other CSF spaces. IMPRESSION - Stable appearance of the right insula acute to subacute infarction. No acute intracranial hemorrhage. Other ch ronic findings are stable. Dictated and Signed by: Palomo Chino MD Electronically signed : 06/21/2018 2:[address] Head Wo Contrast Result Date: 06/20/2018 EXAM: CT HEAD WO CONTRAST dated 06/20/2018 3:39 PM HISTORY: left weak, slurred speech Alan rison: None. TECHNIQUE: Noncontrast CT is performed from the top of calvarium through the s kull base. Coronal and sagittal reformats are performed. DOSE: DLP 785.6 by mGy-cm FINDINGS : BRAIN: There is mild cerebral atrophy. There is appropriate associated prominence of the ventricles. No areas of increased attenuation to suggest intracranial hemorrhage. There i s no mass, mass effect, or midline shift. There are no abnormal extra-axial fluid or air col lections. Focal area of loss of norton-white differentiation involving the right insula There are mild scattered regions of periventricular and subcortical white matter low density. Foc al hypodensity in the right basal ganglia suggesting remote infarcts. Focal encephalomalaci a the posterior left frontoparietal junction, left temporal lobe, and left insular cortex. S CALP/ CALVARIUM: The scalp and skull are intact and are unremarkable. SINUSES / ORBITS/ MAST OIDS: The visible mastoid air cells and paranasal sinuses are clear. The globes and retroco nal contents are intact and are unremarkable. IMPRESSION - Acute to subacute ischemia involv ing the right insula. No evidence for intracranial hemorrhage. Remote left insular, left tem poral lobe, and left frontoparietal infarcts. Evidence of prior lacunar infarcts in the righ t basal ganglia. Dictated and Signed by: Jorge Cueto MD Electronically signed: 06/20/20 18 3:49 PM LABORATORY 06/19/2018 21:07 06/20/2018 03:05 06/21/2018 06:25 WBC 10.6 10.5 9.8 RBC COUNT 5.40 5.35 5.69 Hgb 16.3 16.3 17.1 Hct, Final 49.9 49.0 51.9 (H) MCV 92.4 91.6 91.2 MCH 30.2 30.5 30.1 MCHC 32.7 33.3 32.9 RDW-SD 53.1 (H) 52.4 (H) 52.8 (H) RDW-CV 15.8 (H) 15.9 (H) 16.0 (H) Platelet Count 323 317 322 MPV 10.6 10.6 11.0 06/20/2018 03:05 06/21/2018 06:25 06/22/2018 05:50 NA 135 (L) 138 138 K 4.3 4.1 4.1 Chloride 104 106 105 Carbon dioxide 22 (L) 24 23 (L) ANION GAP 9 8 10 GLUCOSE 177 (H) 147 (H) 126 (H) BUN 33 (H) 30 (H) 32 (H) Creatinine 1.65 (H) 1.62 (H) 1.89 (H) BUN/CREA 20.0 18.5 16.9 EGFR 42 (L) 43 (L) 36 (L) Calcium 9.4 9.5 9.4 Magnesium 1.7 (L) Phosphorus 3.7 HB A1c 10.5 (H) Chol/HDL Ratio 8.5 Cholesterol 188 HDL 22 (L) LDL, 134 (H) Triglycerides 159 Microbiology: Blood No components found for: BCCULT Urine Culture No components found for: URCCULT HOSPITAL COMPLICATIONS: None CONDITION ON DISCHARGE: Improving and need therapy PHYSICAL EXAMINATION: Vitals: 06/22/18 0003 06/22/18 0528 06/22/18 0800 06/22/18 0838 BP: 121/69 122/78 125/60 Pulse: 60 63 68 65 Resp: Temp: 36.1 C (97 F) 36.7 C (98.1 F) TempSrc: Oral Oral SpO2: 96% 97% 97% Weight: Height: PHYSICAL Exam : Gen Henny - alert, cooperative and no distress Head - Normocephalic, without obvious abnormality, atraumatic Eyes - PERRL, conjunctiva/corneas clear, EOM's intact both eyes ENT - mucous membranes moist Neck - supple Lungs - unlabored breathing and bibasilar rales Heart - S1 and S2 normal, irregularly irregular rhythm with rate 68 Abdomen - soft, non-tender, without masses or organomegaly and protuberant Extremities - no peripheral edema, no clubbing or cyanosis Skin - has stasis changes in both legs Neurologic - Alert and oriented x 3. CN II-XII intact. strength is 4/5 on both LE ALLERIES ON DISCHARGE: Allergies Allergen Reactions Amoxicillin Augmentin- throat swelling Chlorhexidine Itching Other reaction(s): VESICLES IN SKIN Ciprofloxacin Other reaction(s): ACUTE INTERSTITIAL NEPHRITIS Simvastatin Rash and Itching Sulfa Antibiotics Tigecycline Itching and Hives Cefazolin Itching and Hives Cephalexin Itching Niacin Other reaction(s): FLUSHING Sulfamethoxazole-Trimethoprim Itching Acute interstitial nephritis Bee Venom Rash Tape [Adhesive & Tape] Triamcinolone Rash Vancomycin Itching MEDICATIONS ON DISCHARGE: Current Facility-Administered Medications: qenekwqt-jdcqulcjpboz-fvyyUPJtba (TRIUMEQ) 600-50-300 mg per tablet 1 tablet - Patient Own Med, 1 tablet, Oral, Nightly, Kolby Sheffield MD, 1 tablet at 06/21/182256 allopurinol (ZYLOPRIM) tablet 100 mg, 100 mg, Oral, Daily, Liane Isaac MD, 100 mg at 06/22/18 0804 apixaban (ELIQUIS) tablet 5 mg, 5 mg, Oral, Q12H, Ying Giron MD atorvaSTATin (LIPITOR) tablet 80 mg, 80 mg, Oral, Daily, Kolby Sheffield MD, 80 mg at 06/22/18 0804 Hypoglycemia Management, , , Until Discontinued AND POCT Glucose, , , PRN AND dextrose 50% injection 12.5 g, 12.5 g, Intravenous, PRN, Kolby Sheffield MD finasteride (PROSCAR) tablet 5 mg, 5 mg, Oral, Daily, Liane Isaac MD, 5 mg at 8 0800 gabapentin (NEURONTIN) capsule 300 mg, 300 mg, Oral, BID, Kolby Sheffield MD, 300 mg at 06/22/18 0800 HYDROcodone-acetaminophen (NORCO) 5-325 mg per tablet 1-2 tablet, 1-2 tablet, Oral, Q4 H PRN, Kolby Sheffield MD, 1 tablet at 06/21/18 2302 insulin glargine (LANTUS SOLOSTAR) 100 units/mL injection (pen) 25 Units, 25 Units, Garber bcutaneous, 2 times per day, Kolby Sheffield MD, 25 Units at 06/22/18 0904 insulin lispro (humaLOG KWIKPEN) 100 units/mL injection (pen) 0-6 Units, 0-6 Units, Garber bcutaneous, 4x Daily WC and HS, Kolby Sheffield MD, 1 Units at 06/20/18 1216 insulin lispro (humaLOG KWIKPEN) 100 units/mL injection (pen) 15 Units, 15 Units, Subc utaneous, TID WC, Kolby Sheffield MD, 15 Units at 06/22/18 1216 isosorbide mononitrate (IMDUR) ER tablet 30 mg, 30 mg, Oral, Daily, Liane Isaac MD, 3 0 mg at 06/22/18 0800 metoprolol tartrate (LOPRESSOR) tablet 25 mg, 25 mg, Oral, BID, Ying Giron MD, 25 mg at 06/22/18 0800 PHYSICAL ACTIVITY: As instructed by therapies DIET: Cardiac diet with carb controlled DISPOSITION: Rehab FOLLOW UP CARE: Follow up with PCP in 1-2 weeks after Discharged from Rehab PENDING STUDIES: None CODE STATUS and GOALS OF CARE Code status at discharge: Full Patient s goals of care discussed: Improving and need therapy Greater than 30 minutes was spent on discharge and coordination of post hospital care. Ying Giron 06/22/18 13:33 documented in t his encounter Medications at Time of Discharge + [...] | 1 | 07/01/20 | | | 5 mg tablet | [...] + + +---------+ + + | Saw Bristow 450 | Take 900 mg by mouth | | 0 | | | | MG CAPS | 2 times daily. | | | | | + + + +---------+ + + | APPLE CIDER | Take 450 mg by mouth | | 0 | | | | VINEGAR PO | Daily. | | | | 8 | + + + +---------+ + + | artificial tears | Place 1 drop into | | 0 | | | | (REFRESH TEARS) | both eyes every 4 | | | | 8 | | ophthalmic solution | hours as needed for | | | | | | | Dry Eyes. | | | | | + + + +---------+ + + | bumetanide (BUMEX) | Take 1 mg by mouth 2 | | 0 | | | | 1 mg tablet | times daily. | | | | 8 | + + + +---------+ + + | Cholecalciferol | Take 4,000 Units by | | 0 | | | | (VITAMIN D-3) 4000 | mouth Daily. | | | | 8 | | units CAPS | | | | | | + + + +---------+ + + | finasteride | Take 5 mg by mouth | | 0 | | | | (PROSCAR) 5 mg | Daily. | | | | 8 | | tablet | | | | | | + + + +---------+ + + | | Take 1 tablet by | | 0 | | | | HYDROcodone-acetamin | mouth Twice daily | | | | 8 | | ophen (NORCO) 5-325 | as needed for Pain. | | | | | | mg per tablet | | | | | | + + + +---------+ + + | hydrOXYzine | Take 50 mg by mouth | | 0 | | | | hydrochloride | 3 times daily as | | | | 8 | | (ATARAX) 25 mg | needed for Itching | | | | | | tablet | or Anxiety. | | | | | + + + +---------+ + + | insulin aspart | Inject under the | | 0 | | | | (NOVOLOG FLEXPEN) | skin 3 times daily | | | | 8 | | 100 units/mL | (before meals). Per | | | | | | injection pen | sliding scale 0 | | | | | | | units if <1506-15 | | | | | | | units if [id number] | | | | | | | units if >200 | | | | | + + + +---------+ + + | insulin glargine | Inject 15 Units | | 0 | | | | (LANTUS SOLOSTAR) | under the skin 2 | | | | 8 | | 100 units/mL | times daily. | | | | | | injection (pen) | | | | | | + + + +---------+ + + | isosorbide | Take 30 mg by mouth | | 0 | | | | mononitrate (IMDUR) | Daily. | | | | 8 | | 60 mg ER tablet | | | | | | + + + +---------+ + + | lisinopril | Take 2.5 mg by mouth | | 0 | | | | (PRINIVIL, ZESTRIL) | Daily. | | | | 8 | | 5 mg tablet | | | | | | + + + +---------+ + + | loperamide | Take 4 mg by mouth | | 0 | | | | (IMODIUM) 2 mg | Daily as needed for | | | | 8 | | capsule | Diarrhea. | | | | | + + + +---------+ + + | metoprolol | Take 200 mg by mouth | | 0 | | | | succinate | Daily. | | | | 8 | | (TOPROL-XL) 200 mg | | | | | | | ER tablet | | | | | | + + + +---------+ + + | Multiple | Take 1 tablet by | | 0 | | | | Vitamins-Minerals | mouth Daily. | | | | 8 | | (ONE-A-DAY PROACTIVE | | | | | | | 65+) TABS | | | | | | + + + +---------+ + + | potassium chloride | Take 20 mEq by mouth | | 0 | | | | (KLOR-CON) 10 MEQ | Daily. | | | | 8 | | ER tablet | | | | | | + + + +---------+ + + | sertraline | Take 75 mg by mouth | | 0 | | | | (ZOLOFT) 50 mg | Daily. | | | | 8 | | tablet | | | | | | + + + +---------+ + + | spironolactone | Take 50 mg by mouth | | 0 | | | | (ALDACTONE) 50 mg | Daily. | | | | 8 | | tablet | | | | | | + + + +---------+ + + | warfarin | Take 5 mg by mouth | | 0 | | | | (COUMADIN) 5 mg | Twice a week. On | | | | 8 | | tablet | Wednesday and Wednesday | | | | | + + + +---------+ + + | warfarin | Take 2.5 mg by mouth | | 0 | | | | (COUMADIN) 5 mg | Five times a week. | | | | 8 | | tablet | Every day except | | | | | | | Wednesday and Wednesday | | | | | + + + +---------+ + + documented as of this encounter Progress Notes Any Jenkins RN - 06/22/2018 5:15 PM PDTPatient transferred to rehab. At 1710. Discharg ed instruction giving to him in writing and verbally. illPramod MD - 06/21/2018 3:51 PM PDTWe are evalua ting the patient's potential to benefit from full inpatient medical rehabilitation services. He currently is tolerating, cooperating, and benefiting from the early rehab therapy treatm ents. We therefore recommend that he be transferred to our inpatient rehab service tomorrow adama langston if he is cleared acutely. 3: 54 PM PDTRolph, Ghanshyam Bull [facility] - 06/21/2018 3:44 PM PDTFormatting of this note might be diffe rent from the original. PHARMACY SERVICES: ADMISSION MEDICATION REVIEW Edkalyani Nelson is a 67 y.o. male admitted on 06/19/2018. Patient is a reliable historian. Location of Patient when reviewed: ED X Medical Floor Patient s prior to admit medication and over the counter (OTC) medications/herbal supplem ents list obtained from: X Verbal interview X Patient ABLE to recall name, strength, and directions X Patient/family member provided a complete current medication bottles X Pharmacy list names: [facility] X [employer] insurance reported information X Care Everywhere X Outside Information Vaccines up to date? Yes No Unsure Influenza x Pneumococcal x Tdap x Shingles x Noted medications discrepancies or medication-related issues: Allergy Alerts: Allergy Added: Reaction: Medication(s) affected: Amoxicillin Throat swelling Augmentin Anaphylaxis Bactrim itching Cefazolin Itching, hives Cephalexin itching Ciprofloxacin Acute interstitial nephritis simvastatin Rash, itching Atorvastatin Sulfa anaphylaxis Tegaderm Vesicles in skin Tigecycline Itching, hives Triamcinolone rash Vancomycin itching niacin Flushing Medication added: Medication: Prior to Admission Sig: Vyyaictv-bjxttrjqtfwa-rkseQLJtzs 600-50-300 mg Take one tablet by mouth daily Allopurinol 100 mg Take one tablet by mouth daily Apply cider vinegar Take 450 mg by mouth daily Artificial tears Place one drop into both eyes every 4 hours as needed for dry eyes Bumetanide 1 mg Take one tablet twice daily Cholecalciferol 4000 units Take one capsule by mouth daily Finasteride 5 mg Take one tablet by mouth daily Gabapentin 600 mg Take one-half tablet by mouth twice daily Hydrocodone-acetaminophen 5-325 mg Take one tablet twice daily as needed Hydroxyzine 25 mg Take two tablets three times daily as needed for itching or anxiety Insulin aspart 100 units/mL Inject three times daily per sliding scale 0 units if <150 ; 6-15 units if 150-200 ; and 60 units >200 Insulin glargine 100 units/mL Inject 15 units under the skin twice daily Isosorbide mononitrate 60 mg Take one-half tablet daily Lisinopril 5 mg Take one-half tablet by mouth daily Loperamide 2 mg Take 4 mg by mouth daily as needed Metoprolol succinate 200 mg Take one tablet by mouth daily Multiple vitamin Take one tablet by mouth daily Potassium chloride 10 mEq Take two tablets by mouth daily Saw Bristow 450 mg Take 900 mg by mouth twice daily Sertraline 50 mg Take one and one-half tablet daily Spironolactone 50 mg Take one tablet by mouth daily Warfarin 5 mg Take one tablet twice weekly on Wednesday and Wednesday And Take 2.5 mg all other days Recreational Substances , Tobacco & Alcohol use : Drug: Route Frequency: Last Used: Alcohol By mouth A bottle daily (brews his own beer and whiskey) Other: Warfarin info [facility] clinic Goal: 2.0-3.0 INR 1.8 on 06/08 Dose: 5 mg on Wednesday and Wednesday and 2.5 mg all other days Best possible CONSTRUCTION EXECUTIVE medication list after pharmacy review: PT REPORTED TAKING NOT TAKING Medication Sig Last Dose Dispense Doc. Provider bvelwpag-vjsitrdamojw-sgzbXBAqlw (TRIUMEQ) 600-50-300 mg per tablet Take 1 tablet by mouth Daily. Indications: HIV Disease Taking Historical ProviderMD allopurinol (ZYLOPRIM) 100 mg tablet Take 100 mg by mouth Daily. Taking Historical Provid erMD APPLE CIDER VINEGAR PO Take 450 mg by mouth Daily. Taking Historical ProviderMD artificial tears (REFRESH TEARS) ophthalmic solution Place 1 drop into both eyes every 4 h ours as needed for Dry Eyes. Taking Historical ProviderMD bumetanide (BUMEX) 1 mg tablet Take 1 mg by mouth 2 times daily. Taking Historical Neri erMD Cholecalciferol (VITAMIN D-3) 4000 units CAPS Take 4,000 Units by mouth Daily. Taking His torical Provider, finasteride (PROSCAR) 5 mg tablet Take 5 mg by mouth Daily. Taking Historical ProviderNeetu gabapentin (NEURONTIN) 600 MG tablet Take 300 mg by mouth 2 times daily. Taking Lopez l ProviderMD HYDROcodone-acetaminophen (NORCO) 5-325 mg per tablet Take 1 tablet by mouth Twice daily as needed for Pain. Taking Historical ProviderMD hydrOXYzine hydrochloride (ATARAX) 25 mg tablet Take 50 mg by mouth 3 times daily as neede d for Itching or Anxiety. Taking Historical ProviderMD insulin aspart (NOVOLOG FLEXPEN) 100 units/mL injection pen Inject under the skin 3 times daily (before meals). Per sliding scale 0 units if <150 6-15 units if 150-200 60 units if >200 Taking Historical Provider MD insulin glargine (LANTUS SOLOSTAR) 100 units/mL injection (pen) Inject 15 Units under the skin 2 times daily. Taking Historical MD Meliza isosorbide mononitrate (IMDUR) 60 mg ER tablet Take 30 mg by mouth Daily. Taking Historjose al MD Meliza lisinopril (PRINIVIL, ZESTRIL) 5 mg tablet Take 2.5 mg by mouth Daily. Taking Historical MD Meliza loperamide (IMODIUM) 2 mg capsule Take 4 mg by mouth Daily as needed for Diarrhea. Taking Historical ProviderMD metoprolol succinate (TOPROL-XL) 200 mg ER tablet Take 200 mg by mouth Daily. Taking Hist orical ProviderMD Multiple Vitamins-Minerals (ONE-A-DAY PROACTIVE 65+) TABS Take 1 tablet by mouth Daily. Yimi Wilson ProviderMD potassium chloride (KLOR-CON) 10 MEQ ER tablet Take 20 mEq by mouth Daily. Taking Jt Haider MD Saw Bristow 450 MG CAPS Take 900 mg by mouth 2 times daily. Taking Historical MD Meliza sertraline (ZOLOFT) 50 mg tablet Take 75 mg by mouth Daily. Taking Historical ProviderNeetu spironolactone (ALDACTONE) 50 mg tablet Take 50 mg by mouth Daily. Taking Historical Courntey tena MD warfarin (COUMADIN) 5 mg tablet Take 5 mg by mouth Twice a week. On Wednesday and Wednesday Guerrero Haider MD warfarin (COUMADIN) 5 mg tablet Take 2.5 mg by mouth Five times a week. Every day except M and Wednesday Taking Steve Haider MD Medication review performed and electronically signed by Roxy Escobedo, Twister Operator 15:03 Electronically signed by: Ghanshyam Newman RPH 06/21/2018 15:43 Alberto Sanders, PharmD - 06/21/2018 11:19 AM PDT WARFARIN PER PHARMACY PROTOCOL: Subjective/Objective: Sarthak Nelson is a 67 y.o. male admitted for Slurred speech and is receiving warfa rin. Patient has no past medical history on file. Goal INR: 2-3 ?Initiation ?chronic Home regimen: TBD after med-rec Managed by: TBD after med-rec Sensitizers: none Drug Interactions: Acetaminophen NON-valvular AFIB patients: [id number] score (max 9): 6 ?CHF, ?HTN, ?Age > 75 (2), ?DM, ? prior CVA,VTE (2), ?DC,PAD, ?Age 64-74, ?Female Recent Labs Lab 06/21/18 0625 06/20/18 0305 06/19/18 2107 CREA 1.62* 1.65* 1.77* HGB 17.1 16.3 16.3 HCT 51.9* 49.0 49.9 PLT 322 317 323 INR 1.6* 1.4* 1.5* Date 06/20 06/21 Hgb 16.3 17.1 Hct 49.0 51.9 Platelets 317 322 INR 1.4 1.6 Warfarin Dose 5 mg 5 mg Assessment: The INR is below the target range of 2-3 for atrial fibrillation Plan: 1. Warfarin 5mg po daily was initiated starting 06/20/18 2. Medication profile reviewed for potential drug-drug interactions 3. Labs in am: Hgb, Hct, INR 4. 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 Pharmacist to follow daily Warfarin Dosing Nomogram Per P&T-approved Electronically signed by: Alberto Isaac PharmD 06/21/2018 11:20 Ying Lopez MD - 06/21/2018 10:57 AM P DT HOSPITALIST PROGRESS NOTE Patient: Sarthak Nelson : 1950: Age: 67 y.o. MedRec: [id number] PCP: Jericho Cao MD Admission date: 06/19/2018 Hospital day # : 2 Physician author: Ying Giron MD Today: 06/21/2018 SUBJECTIVE/ OVERNIGHT EVENTS : Still tired and feels better with the movement His Repeat CT did not show any new worsening complains of his food and wanted regular food and regular fluid Rehab consulted and will waiting for bed persistent left sided weakness with some slurring/drooling he claim at baseline ADMISSION HISTORY : History of the presenting illness : Sarthak Nelson is a 67 y.o. male with a histor y of IDDM, afib on warfarin, HTN, HIV, Chronic systolic heart failure, CKD3, CVA (x 3 in the past) who presents with L sided weakness of slurred speech. Patient reports at 10:30am on d ay of presentation, standing near dresser and suddenly having weakness. Patient fell to the floor with mildly hitting head. No loss of consciousness. Typically ambulates with walker. P atient crawled to bed and called for EMS. Patient had prior CVAs in the past. Patient report s prior CVA has effected R side. The left sided weakness and slurred speech is new. Patient has been complaint with medications. Patient denies any other symptoms including chest pain, shortness of breath, N/V/D. Patient has been on warfarin. Patient presented to [place]. Patient was out of timeframe fo r TPA at that time. EKG was consistent with atrial fibrillation. UDS was negative. No aurelio kocytosis. Creatinine 1.85. A CTA head and neck was performed showing no acute pathology. 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 At least 90% stenosis of the left proximal ICA and 50% stenosi s of the right proximal ICA. Cavernous carotids are at least 50% narrowed bilaterally. Jana huber was transferred to [place] for further evaluation. MEDICATIONS: exiuberk-revvcjautkol-siweMFZalt 1 tablet Oral Nightly [START ON 06/22/2018] allopurinol 100 mg Oral Daily atorvaSTATin 80 mg Oral Daily finasteride 5 mg Oral Daily gabapentin 300 mg Oral BID insulin glargine 25 Units Subcutaneous 2 times per day insulin lispro 0-6 Units Subcutaneous 4x Daily WC and HS insulin lispro 15 Units Subcutaneous TID WC isosorbide mononitrate 30 mg Oral Daily pharmacy consult - other medications/reasons Other Pharmacy Consult warfarin 5 mg Oral Daily - Warfarin warfarin per pharmacy Other Pharmacy Consult OBJECTIVE: Vitals: 06/21/18 0109 06/21/18 0433 06/21/18 0741 06/21/18 0900 BP: 119/72 157/69 168/71 Pulse: 72 69 66 68 Resp: 16 16 18 16 Temp: 35.7 C (96.3 F) 35.4 C (95.7 F) 35.9 C (96.6 F) TempSrc: Oral Axillary Oral SpO2: 95% 98% 100% 98% Weight: Height: Weight: (!) 169.5 kg (373 lb 10.9 oz) I/O last 3 completed shifts: In: 820 [P.O.:820] Out: 3800 [Urine:3800] I/O this shift: In: 240 [P.O.:240] Out: - PHYSICAL Exam : Gen Henny - alert, cooperative and no distress Head - Normocephalic, without obvious abnormality, atraumatic Eyes - PERRL, conjunctiva/corneas clear, EOM's intact both eyes ENT - mucous membranes moist Neck - supple Lungs - unlabored breathing and bibasilar rales Heart - S1 and S2 normal, irregularly irregular rhythm with rate 68 Abdomen - soft, non-tender, without masses or organomegaly and protuberant Extremities - no peripheral edema, no clubbing or cyanosis Skin - has stasis changes in both legs Neurologic - Alert and oriented x 3. CN II-XII intact. strength is 4/5 on both LE LABS & IMAGING: reviewed Recent Results (from the past 48 hour(s)) CBC with Differential Collection Time: 06/19/18 21:07 Result Value Ref Range WBC 10.6 4.0 - 11.0 K/uL RBC 5.40 4.30 - 5.70 M/uL Hgb 16.3 13.5 - 18.0 g/dL Hct 49.9 40.0 - 51.0 % MCV 92.4 83.0 - 101.0 fL MCH 30.2 28.0 - 35.0 pg MCHC 32.7 32.0 - 36.0 g/dL RDW-CV 15.8 (H) <15.0 % RDW-SD 53.1 (H) 35.1 - 46.3 fL Platelet Count 323 140 - 440 K/uL MPV 10.6 6.5 - 12.4 fL % Neutrophils 52.5 45.0 - 82.0 % % Lymphocytes 32.7 20.0 - 45.0 % % Monocytes 10.4 4.0 - 12.0 % % Eosinophils 2.8 0.0 - 5.0 % % Basophils 0.8 0.0 - 1.0 % % Immature granulocytes 0.8 (H) 0.0 - 0.4 % Absolute Neutrophils 5.57 1.80 - 8.50 K/uL Absolute Lymphocytes 3.46 (H) 0.60 - 3.20 K/uL Absolute Monocytes 1.10 (H) 0.00 - 1.00 K/uL Absolute Eosinophils 0.30 0.00 - 0.40 K/uL Absolute Basophils 0.08 0.00 - 0.10 K/uL Absolute Imm. Granulocytes 0.08 (H) 0.00 - 0.03 K/uL nRBC 0 0 - 2 per 100 WBC's NRBC ABS 0.00 0.00 - 0.01 K/uL Basic Metabolic Panel Collection Time: 06/19/18 21:07 Result Value Ref Range NA 138 136 - 149 mmol/L K 4.5 3.5 - 5.1 mmol/L CL 105 98 - 109 mmol/L CO2 25 24 - 31 mmol/L ANION GAP 8 3 - 16 mmol/L GLUCOSE 194 (H) 70 - 109 mg/dL BUN 36 (H) 7 - 18 mg/dL Creatinine, Serum/Plasma 1.77 (H) 0.60 - 1.30 mg/dL eGFR if not 39 (L) >=60 mL/min/1.73m2 CALCIUM 9.5 8.3 - 10.5 mg/dL BUN/CREA 20.3 Protime INR Collection Time: 06/19/18 21:07 Result Value Ref Range Protime 17.5 (H) 11.3 - 13.9 seconds INR 1.5 (H) 0.9 - 1.1 Troponin I Collection Time: 06/19/18 21:07 Result Value Ref Range Troponin I 0.02 <0.06 ng/mL POC Glucose Collection Time: 06/19/18 22:50 Result Value Ref Range Glucose, POC 163 (H) 70 - 109 mg/dL Basic Metabolic Panel Collection Time: 06/20/18 3:05 Result Value Ref Range NA 135 (L) 136 - 149 mmol/L K 4.3 3.5 - 5.1 mmol/L CL 104 98 - 109 mmol/L CO2 22 (L) 24 - 31 mmol/L ANION GAP 9 3 - 16 mmol/L GLUCOSE 177 (H) 70 - 109 mg/dL BUN 33 (H) 7 - 18 mg/dL Creatinine, Serum/Plasma 1.65 (H) 0.60 - 1.30 mg/dL eGFR if not 42 (L) >=60 mL/min/1.73m2 CALCIUM 9.4 8.3 - 10.5 mg/dL BUN/CREA 20.0 CBC with Differential Collection Time: 06/20/18 3:05 Result Value Ref Range WBC 10.5 4.0 - 11.0 K/uL RBC 5.35 4.30 - 5.70 M/uL Hgb 16.3 13.5 - 18.0 g/dL Hct 49.0 40.0 - 51.0 % MCV 91.6 83.0 - 101.0 fL MCH 30.5 28.0 - 35.0 pg MCHC 33.3 32.0 - 36.0 g/dL RDW-CV 15.9 (H) <15.0 % RDW-SD 52.4 (H) 35.1 - 46.3 fL Platelet Count 317 140 - 440 K/uL MPV 10.6 6.5 - 12.4 fL % Neutrophils 54.8 45.0 - 82.0 % % Lymphocytes 31.0 20.0 - 45.0 % % Monocytes 9.8 4.0 - 12.0 % % Eosinophils 2.8 0.0 - 5.0 % % Basophils 0.8 0.0 - 1.0 % % Immature granulocytes 0.8 (H) 0.0 - 0.4 % Absolute Neutrophils 5.77 1.80 - 8.50 K/uL Absolute Lymphocytes 3.25 (H) 0.60 - 3.20 K/uL Absolute Monocytes 1.03 (H) 0.00 - 1.00 K/uL Absolute Eosinophils 0.29 0.00 - 0.40 K/uL Absolute Basophils 0.08 0.00 - 0.10 K/uL Absolute Imm. Granulocytes 0.08 (H) 0.00 - 0.03 K/uL nRBC 0 0 - 2 per 100 WBC's NRBC ABS 0.00 0.00 - 0.01 K/uL Hemoglobin A1C Collection Time: 06/20/18 3:05 Result Value Ref Range Hemoglobin A1c 10.5 (H) 4.3 - 6.0 % Estimated Average Glucose 255 mg/dL Magnesium Collection Time: 06/20/18 3:05 Result Value Ref Range Magnesium 1.7 (L) 1.8 - 2.5 mg/dL Protime INR Collection Time: 06/20/18 3:05 Result Value Ref Range Protime 17.4 (H) 11.3 - 13.9 seconds INR 1.4 (H) 0.9 - 1.1 Phosphorus Collection Time: 06/20/18 3:05 Result Value Ref Range Phosphorus 3.7 2.5 - 4.6 mg/dL Lipid Panel Collection Time: 06/20/18 3:05 Result Value Ref Range Triglycerides 159 35 - 160 mg/dL Cholesterol 188 150 - 200 mg/dL HDL 22 (L) 28 - 83 mg/dL Chol/HDL Ratio 8.5 LDL, Calculated 134 (H) <=130 mg/dL Troponin I Collection Time: 06/20/18 3:05 Result Value Ref Range Troponin I 0.01 <0.06 ng/mL ECG 12 lead Collection Time: 06/20/18 3:45 Result Value Ref Range VENTRICULAR RATE EKG 70 BPM QRS DURATION 104 ms Q-T INTERVAL 420 ms Q-T INTERVAL (CORRECTED) 453 ms QRS AXIS 106 degrees T AXIS 21 degrees INTERPRETATION TEXT Atrial fibrillation Rightward axis Abnormal ECG No previous ECGs available Confirmed by DAVID BARAHONA, NILAY ([id number]) on 06/20/2018 6:38:00 AM POC Glucose Collection Time: 06/20/18 7:47 Result Value Ref Range Glucose, POC 128 (H) 70 - 109 mg/dL Troponin I Collection Time: 06/20/18 9:07 Result Value Ref Range Troponin I 0.01 <0.06 ng/mL POC Glucose Collection Time: 06/20/18 11:28 Result Value Ref Range Glucose, POC 170 (H) 70 - 109 mg/dL ECHO Complete Collection Time: 06/20/18 15:10 Result Value Ref Range LVEF-TTE TRANSTHORACIC ECHO 65 BASELINE BLOOD PRESSURE 151/76 mmHg Patient Weight (lbs) 373lb Patient Height 6f2in LVIDd 4.53 cm FS 40 % LA volume 153.22 mL Aortic arch 3.89 cm AV mean gradient 3 mmHg MV mean gradient 61.6 mmHg MV Area by P 1/2 method 4.38 cm2 IVRT 78.73 msec LVOT peak medardo 72.36 cm/s LVOT peak VTI 17.48 cm AV peak medardo 110 cm/s AV VTI 25.00 cm MR max medardo 496.22 cm/s MV peak gradient 6.91 mmHg MV VTI 157.47 cm MV Pressure 1/2 time 50.24 msec LA Volume Index 54 mL/m2 AV LVOT Peak Gradient 2.09 mmHg AV LVOT Mean Gradient 1.11 mmHg TR Peak Gradient 43 mmHg TR Velocity 327.56 cm LV Diastolic Length 4C 7.27 cm LV Systolic Area PSAX 20.36 cm2 LV Cat's Biplane EF 65 % AV Acceleration Time 116.03 msec LV ED Volume (Cat's) 139.59 ml LV ED Volume Index 49 ml/m2 LV ES Volume 48.74 ml LVOT Mean Velocity 49.05 cm/s MV E' Lateral Velocity 4.64 cm/s MV E' Septal Velocity 4 cm/s MV Deceleration [place] 765.46 cm/s2 MV Deceleration Time 173.25 msec MV Peak E-Wave 131.39 cm/s AV Mean Velocity 77.55 cm/s LA/Aorta Ratio 1.56 LA Area 37.9 cm2 LA Systolic Pressure 37.4 mmHg MR [place]isa Area 0.21 cm2 MV E/E SEPTAL 32.85 MV E/E LATERAL 28.32 LA Major 0.2475 cm LV ES Volume Index 17 ml/m2 LV Area Diastolic 34.51 cm2 Heart Rate 66 Aortic Root Diameter 3.86 cm IVS Diastolic Thickness MM 1.59 cm LVPW Diastolic Thickness MM 1.77 cm IVS Systolic Thickness MM 2.24 cm LV Systolic Diameter MM 2.71 cm LVPW Systolic Thickness MM 2.61 cm AV Cusp Seperation MM 2.3 cm LA Systolic Diameter MM 6.01 cm TAPSE 2.2 cm POC Glucose Collection Time: 06/20/18 16:35 Result Value Ref Range Glucose, POC 92 70 - 109 mg/dL POC Glucose Collection Time: 06/20/18 21:16 Result Value Ref Range Glucose, POC 145 (H) 70 - 109 mg/dL Protime INR Collection Time: 06/21/18 6:25 Result Value Ref Range Protime 18.6 (H) 11.3 - 13.9 seconds INR 1.6 (H) 0.9 - 1.1 Troponin I Collection Time: 06/21/18 6:25 Result Value Ref Range Troponin I 0.03 <0.06 ng/mL Basic Metabolic Panel Collection Time: 06/21/18 6:25 Result Value Ref Range NA 138 136 - 149 mmol/L K 4.1 3.5 - 5.1 mmol/L CL 106 98 - 109 mmol/L CO2 24 24 - 31 mmol/L ANION GAP 8 3 - 16 mmol/L GLUCOSE 147 (H) 70 - 109 mg/dL BUN 30 (H) 7 - 18 mg/dL Creatinine, Serum/Plasma 1.62 (H) 0.60 - 1.30 mg/dL eGFR if not 43 (L) >=60 mL/min/1.73m2 CALCIUM 9.5 8.3 - 10.5 mg/dL BUN/CREA 18.5 CBC no Differential Collection Time: 06/21/18 6:25 Result Value Ref Range WBC 9.8 4.0 - 11.0 K/uL RBC 5.69 4.30 - 5.70 M/uL Hgb 17.1 13.5 - 18.0 g/dL Hct 51.9 (H) 40.0 - 51.0 % MCV 91.2 83.0 - 101.0 fL MCH 30.1 28.0 - 35.0 pg MCHC 32.9 32.0 - 36.0 g/dL RDW-CV 16.0 (H) <15.0 % RDW-SD 52.8 (H) 35.1 - 46.3 fL Platelet Count 322 140 - 440 K/uL MPV 11.0 6.5 - 12.4 fL nRBC 0 0 - 2 per 100 WBC's NRBC ABS 0.00 0.00 - 0.01 K/uL Ct Head Wo Contrast Result Date: 06/21/2018 TECHNIQUE: Noncontrast axial CT imaging was obtained through the brain with coronal and sag ittal reformats. CLINICAL INFORMATION: Re- assess the size of the CVA ( for theraleutic purp ose to start on NOAC) COMPARISON: CT dated 06/20/2018. FINDINGS: Stable appearance of the rig ht insula acute to subacute infarction. No new infarction. No intracranial hemorrhage, mass , or mass effect. Remote left insular, temporal, and frontal parietal infarctions are stable in appearance. Chronic right basal ganglia lacunar infarctions are again noted. Prominent bilateral carotid siphon and distal vertebral artery calcifications. Stable cerebral volume loss with prominence of the ventricles and other CSF spaces. IMPRESSION - Stable appearance of the right insula acute to subacute infarction. No acute intracranial hemorrhage. Other ch ronic findings are stable. Dictated and Signed by: Palomo Chino MD Electronically signed : 06/21/2018 2:[address] Head Wo Contrast Result Date: 06/20/2018 EXAM: CT HEAD WO CONTRAST dated 06/20/2018 3:39 PM HISTORY: left weak, slurred speech Alan rison: None. TECHNIQUE: Noncontrast CT is performed from the top of calvarium through the s kull base. Coronal and sagittal reformats are performed. DOSE: DLP 785.6 by mGy-cm FINDINGS : BRAIN: There is mild cerebral atrophy. There is appropriate associated prominence of the ventricles. No areas of increased attenuation to suggest intracranial hemorrhage. There i s no mass, mass effect, or midline shift. There are no abnormal extra-axial fluid or air col lections. Focal area of loss of norton-white differentiation involving the right insula There are mild scattered regions of periventricular and subcortical white matter low density. Foc al hypodensity in the right basal ganglia suggesting remote infarcts. Focal encephalomalaci a the posterior left frontoparietal junction, left temporal lobe, and left insular cortex. S CALP/ CALVARIUM: The scalp and skull are intact and are unremarkable. SINUSES / ORBITS/ MAST OIDS: The visible mastoid air cells and paranasal sinuses are clear. The globes and retroco nal contents are intact and are unremarkable. IMPRESSION - Acute to subacute ischemia involv ing the right insula. No evidence for intracranial hemorrhage. Remote left insular, left tem poral lobe, and left frontoparietal infarcts. Evidence of prior lacunar infarcts in the righ t basal ganglia. Dictated and Signed by: Jorge Cueto MD Electronically signed: 06/20/20 18 3:49 PM Xr Chest Ap Portable Result Date: 06/20/2018 XR CHEST AP PORTABLE 06/19/2018 9:32 PM HISTORY: Eval for MRI/PPM. COMPARISON: None. Finding s: There appears to be a left pacemaker lead extending to the right ventricle with the left border not imaged. The heart is enlarged. There is atherosclerosis of the aorta. Mediastinum is unremarkable. Pulmonary vasculature is prominent with cephalization. Mild atelectasis is in the left lung base. The right lung is clear. There are no acute osseous abnormalities. I MPRESSION - Apparent pacemaker lead over left chest that is partially imaged. Cardiomegaly w ith pulmonary congestion. Dictated and Signed by: Chacho Yarbrough MD Electronically signed: 12:08 PM Vas Carotid Duplex Bilateral Result Date: 06/20/2018 VAS CAROTID DUPLEX BILATERAL 06/20/2018 6:50 AM HISTORY: Evaluate for carotid artery stenosi s. COMPARISON: None. PROTOCOL: Norton scale and Doppler images of the carotid arteries. FINDIN GS: Right: There is minimal atherosclerosis of the carotid bulb extending into the proximal ICA and ECA. Peak systolic velocity (cm/s), end diastolic velocity (cm/s). Mid CCA: 52, 6 Bu lb: 41, 8 ECA: 80, 8 Highest ICA: 58, 15 Vertebral: Antegrade flow Bulb/mid CCA ratio: Less than 1 High ICA/mid CCA ratio: 1.12 Left: There is minimal atherosclerosis of the carotid bu lb extending into the proximal ICA and ECA. Peak systolic velocity (cm/s), end diastolic medardo ocity (cm/s). Mid CCA: 51, 11 Bulb: 42, 9 ECA: 84, 10 Highest ICA: 97, 28 Vertebral: Antegra de flow Bulb/mid CCA ratio: Less than 1 High ICA/mid CCA ratio: 1.90 IMPRESSION - No hemodyn amically significant stenosis. Dictated and Signed by: Chacho Yarbrough MD Electronically matthew d: 06/20/2018 1:58 PM ASSESSMENT/PLAN: Ischemic cerebrovascular accident (CVA) : His presentation includes subtherapeutic INR x1.5 months.His Warfarin was started without bridging as unclear extent of CVA, aspirin started then stopped, Will change to NOAC instead. Carotid Ultrasound without significant stenosis, which is in contrast to [facility]'s ultrasound. He has pacer so not amenable with MRI and T TE with bubble study--negative IDDM (insulin dependent diabetes mellitus) : On lantus and lispro HTN (hypertension) : Permissive HTN and may need better control in the future. Will add th e BB and Continue imdur CKD (chronic kidney disease) : stable and improved RACHELLE : On CPAP HIV (human immunodeficiency virus infection) : Cont Abacavir,dolutegravir,lamivudi Chronic leg edema from, VENOUS STASIS : [facility] D[facility] Prophylaxis : on NOAC Code Status : Full Code. DISCHARGE PLAN: Discharge in to Rehab tomorrow . Discussed with patient and staff Ying Giron 06/21/2018 10:57 Fawn Venegas PharmD - 06/21/2018 8:10 AM PDTFormatting of this note might be different from the origin al. WARFARIN PER PHARMACY PROTOCOL: Subjective/Objective: Sarthak Nelson is a 67 y.o. male admitted for Slurred speech and is receiving warfa rin. Patient has a past medical history of IDDM, A fib (Warfarin), HTN, HIV, chronic systoli c heart failure, CKD 3, CVA (x3 in the past), obesity Goal INR: 2-3 ?Initiation ?chronic Home regimen: TBD after med-rec Managed by: [place] anticoagulation clinic previously adjusting coumadin for chronic Afib per Dr Anmol Isaac Sensitizers: none Drug Interactions: Acetaminophen, allopurinol NON-valvular AFIB patients: [id number] score (max 9): 6 ?CHF, ?HTN, ?Age > 75 (2), ?DM, ? prior CVA,VTE (2), ?DC,PAD, ?Age 64-74, ?Female Recent Labs Lab 06/21/18 0625 06/20/18 0305 06/19/18 2107 CREA 1.62* 1.65* 1.77* HGB 17.1 16.3 16.3 HCT 51.9* 49.0 49.9 PLT 322 317 323 INR 1.6* 1.4* 1.5* Date 06/20 06/21 Hgb 16.3 17.1 Hct 49.0 51.9 Platelets 317 322 INR 1.4 1.6 Warfarin Dose 5 mg 5 mg Assessment: The INR is below the target range of 2-3 for atrial fibrillation Plan: 1. Continue Warfarin 5mg po daily until INR is a recommended therapeutic range 2. Medication profile reviewed for potential drug-drug interactions 3. Labs in am: INR 4. 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 Pharmacist to follow daily Warfarin Dosing Nomogram Per P&T-approved Electronically signed by: Fawn Willard PharmD 06/21/2018 8:11 Alberto Sanders P harmD - 06/20/2018 12:25 PM PDT WARFARIN PER PHARMACY PROTOCOL: Subjective/Objective: Sarthak Nelson is a 67 y.o. male admitted for Slurred speech and is receiving warfa rin. Patient has no past medical history on file. Goal INR: 2-3 ?Initiation ?chronic Home regimen: TBD after med-rec Managed by: TBD after med-rec Sensitizers: none Drug Interactions: Acetaminophen NON-valvular AFIB patients: [id number] score (max 9): 6 ?CHF, ?HTN, ?Age > 75 (2), ?DM, ? prior CVA,VTE (2), ?DC,PAD, ?Age 64-74, ?Female Recent Labs Lab 06/20/18 0305 06/19/18 2107 CREA 1.65* 1.77* HGB 16.3 16.3 HCT 49.0 49.9 PLT 317 323 INR 1.4* 1.5* Date 06/20 Hgb 16.3 Hct 49.0 Platelets 317 INR 1.4 Warfarin Dose 5 mg Assessment: The INR is below the target range of 2-3 for atrial fibrillation Plan: 1. Warfarin 5mg po daily was initiated starting 06/20/18 2. Medication profile reviewed for potential drug-drug interactions 3. Labs in am: Hgb, Hct, INR 4. 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 Pharmacist to follow daily Warfarin Dosing Nomogram Per P&T-approved Electronically signed by: Alberto Isaac PharmD 06/20/2018 11:41 Liane Sanders MD - 06/20/2018 9:40 AM PDT [place], [place] H[facility]PITALIST PROGRESS NOTE Patient: Sarthak Nelson : 1950: Age: 67 y.o. MedRec: [id number] Admission date: 06/19/2018 Hospital day # : 1 Physician author: Liane Isaac MD Today: 06/20/2018 Reason for hospitalization / Assessment and Plan CVA (x 3 in the past) who presents with new onset sudden onset L sided weakness and slurred speech, while standing near home dresser, fell, mildly hitting head, No loss of consciousne ss, crawled to bed,called EMS. Patient had prior CVAs with RIGHT weakness. Patient has been complaint with medications., Typically ambulates with walker, presented to [facility] timeframe for TPA. EKG atrial fibrillation. UDS negative. No leukocytosis. Cre atinine 1.85. A CTA head and neck no acute pathology. Old left parietal infarcts with At least 90% stenosis of the left proximal ICA and 50% stenosis of the right proximal ICA. Cav ernous carotids are at least 50% narrowed bilaterally. Patient transferred here with symptoms, pacer limiting MRI, but CT noncontrast-right insula acute infarct. Coumadin resumed, asa/statin were started. Anticipate that CVA may be larger and consider NOAC, discuss with neurologist. On dysphagia diet per [employer]. Subtherapeutic INR since mid 04/2018 - end 05/2018despite [place] antico clinic adjusting coumad in for chronic afib. Per [place] care everywhere PMHX 1. Cellulitis of abdominal wall - limbs 2. Diarrhea 3. Edema Congestive heart failure Chronic atrial fibrillation 4. Keratoconjunct sicca, not specified as Sjogren's, bilateral //. Open angle with borderline findings, low risk, bilateral 6. Back pain 7. Knee pain 8. Foot pain 9. Gout 14. Diabetes mellitus type 2 15. Human immunodeficiency virus 16. Obesity 17. Chronic kidney disease stage 3B Medications 1) BUMETANIDE 1MG TAB TAKE ONE TABLET BY MOUTH TWICE A ACTIVE (S) DAY FOR BLOOD PRESSURE / FLUID RETENTION 2) CARBOXYMETHYLCELLULOSE 0.5% OPH 15ML ALYX INSTILL 1 ACTIVE DROP IN EACH EYE EVERY 4 HOURS OR MORE OFTEN NEEDED FOR DRY EYES 3) FINASTERIDE 5MG TAB TAKE ONE TABLET BY MOUTH EVERY ACTIVE (S) DAY FOR PROSTATE 4) GABAPENTIN 600MG TAB TAKE ONE-HALF TABLET BY MOUTH ACTIVE (S) TWICE A DAY FOR NEUROPATHY 5) HYDROXYZINE HCL 25MG TAB TAKE TWO TABLETS BY MOUTH ACTIVE THREE TIMES A DAY NEEDED FOR ANXIETY / ITCHING 6) INSULIN,ASPART,HUMAN 100 UNIT/ML INJ INJECT PER ACTIVE SLIDING SCALE SUBCUTANEOUSLY (UNDER SKIN) THREE TIMES A DAY BEFORE MEALS FOR DIABETES *DISCARD VIAL 28 DAYS AFTER OPENING* 7) INSULIN,GLARGINE,HUMAN 100 UNIT/ML INJ INJECT 15 ACTIVE UNITS SUBCUTANEOUSLY (UNDER SKIN) TWICE A DAY / FOR DIABETES, DO NOT MIX WITH OTHER INSULINS * DISCARD VIAL 28 DAYS AFTER OPENING * 8) ISOSORBIDE MONONITRATE 60MG SA TAB TAKE ONE-HALF ACTIVE TABLET BY MOUTH EVERY MORNING FOR CHEST PAIN 9) LISINOPRIL 5MG TAB TAKE ONE-HALF TABLET BY MOUTH ACTIVE (S) EVERY DAY TO LOWER BLOOD PRESSURE 11) METOPROLOL SUCCINATE 200MG SA TAB TAKE ONE TABLET BY ACTIVE (S) MOUTH EVERY DAY FOR HEART TAKE WITH FOOD 13) SERTRALINE HCL 50MG TAB TAKE ONE AND ONE-HALF TABLETS ACTIVE BY MOUTH EVERY DAY FOR MOOD 14) SPIRONOLACTONE 50MG TAB TAKE ONE TABLET BY MOUTH ACTIVE (S) EVERY DAY FOR FLUID / HEART 15) WARFARIN NA (EXELAN) 5MG TAB TAKE ONE-HALF TABLET BY ACTIVE (S) MOUTH EVERY DAY EXCEPT TAKE ONE TABLET ON MONDAYS OR DIRECTED BY CLINIC (BLOOD THINNER) FOR PREVENTION OF STROKE 1) ALLOPURINOL 100MG TAB TAKE ONE TABLET BY MOUTH EVERY PENDING DAY TO PREVENT GOUT 2) HYDROCODONE 5MG/ACETAMINOPHEN 325MG TAB TAKE ONE PENDING TABLET BY MOUTH TWICE A DAY NEEDED FOR PAIN Kcl 20meq Qday Triumeq/Abacavir,dolutegravir,lamivudi clorthalidone 25 Qday---off [id number] tid---off Lasix ---off Allergies: Current Medications: Allergies Allergen Reactions Tape [Adhesive & Tape] Current Facility-Administered Medications Medication Dose Route Frequency Provider Last Rate Last Dose skmxhxna-hryrapcaaryv-[id number] (TRIUMEQ) 600-50-300 mg per tablet 1 tablet - Patient Own Med 1 tablet Oral Nightly Kolby Sheffield MD aspirin chewable tablet 81 mg 81 mg Oral Daily Kolby Sheffield MD 81 mg at 06/20/18 0909 atorvaSTATin (LIPITOR) tablet 80 mg 80 mg Oral Daily Kolby Sheffield MD 80 mg at 0909 dextrose 50% injection 12.5 g 12.5 g Intravenous PRN Kolby Sheffield MD gabapentin (NEURONTIN) capsule 300 mg 300 mg Oral BID Kolby Sheffield MD 300 mg at 06/20/18 0909 HYDROcodone-acetaminophen (NORCO) 5-325 mg per tablet 1-2 tablet 1-2 tablet Oral Q4H P RN Kolby Sheffield MD 1 tablet at 06/20/18 1135 insulin glargine (LANTUS SOLOSTAR) 100 units/mL injection (pen) 25 Units 25 Units Subc utaneous 2 times per day Kolby Sheffield MD 25 Units at 06/20/18 0937 insulin lispro (humaLOG KWIKPEN) 100 units/mL injection (pen) 0-6 Units 0-6 Units Subc utaneous 4x Daily WC and HS Kolby Sheffield MD 1 Units at 06/20/18 1216 insulin lispro (humaLOG KWIKPEN) 100 units/mL injection (pen) 15 Units 15 Units Subcut aneous TID WC Kolby Sheffield MD 15 Units at 06/20/18 1215 pharmacy consult - other medications/reasons Other Pharmacy Consult Kolby Sheffield MD warfarin (COUMADIN) tablet 5 mg 5 mg Oral Daily - Laura Isaac, PharmD warfarin per pharmacy Other Pharmacy Consult Kolby Sheffield MD Current Infusions: Active Hospital Problems Diagnosis Ischemic cerebrovascular accident (CVA) IDDM (insulin dependent diabetes mellitus) HTN (hypertension) CKD (chronic kidney disease) HIV (human immunodeficiency virus infection) Resolved Hospital Problems Diagnosis No resolved problems to display. Hospital Day: 2 Acute CVA right insula, persistent left sided weakness/slurring/drooling --subtherapeutic INR x1.5 months. continued Warfarin without bridging, unclear extent of CV A, aspirin started then stopped, consider NOAC instead if < 1/[address] 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 ALL diuretics/antihypertensives have been held. IDDM Cont lantus lispro - lower than home dose HTN Continue imdur HIV -Cont Abacavir,dolutegravir,lamivudi - multiple bottles Are in his [employer] bag Chronic systolic-diastolic heart failure/ VT / chronic A fib / pacer Patient reports holding lasix due to kidney injury, listed on 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 Subjective by date Unhappy w/ thickened liquids, chronic pain Treatment log Imdur, stop asa. Continue lipitor/coumadin Exam On room air then tolerating home CPAP General NAD A and O obese Cardiac S1 S2 irregular Lung CTAB Abdominal soft nt nd + BS obese Neuro dysarthric, drooling left, poor tongue protrusion to left, weaker shoulder shrug left 4/5 left deliverer outside, 3/5 left elbow flexion, 3/5 left shoulder flexion 5/5 right deliverer outside/elbow flexion/shoulder flexion 4/5 left lower extremity 4+/5 right lower extremity Unlikely word finding, follows commands Extremities chronically discolored shins, moderate edema Vitals Ranges: Temp: [35.6 C (96.1 F)-36.5 C (97.7 F)] 35.6 C (96.1 F) Pulse: [60-69] 64 Resp: [17-19] 18 BP: (117-169)/(58-82) 151/76 Vitals: Temp: 35.6 C (96.1 F) BP: 151/76 Pulse: 64 Resp: 18 SpO2: 96 % SpO2 96 % on non-invasive ventilation (i.e. bi-level) at flow rate 1L/min Objective Data Point of care glucose Recent Labs Lab 06/20/18 1128 06/20/18 0747 06/19/18 2250 POCGLU 170* 128* 163* Labs last 24 hours Recent Results (from the past 24 hour(s)) CBC with Differential Collection Time: 06/19/18 21:07 Result Value Ref Range WBC 10.6 4.0 - 11.0 K/uL RBC 5.40 4.30 - 5.70 M/uL Hgb 16.3 13.5 - 18.0 g/dL Hct 49.9 40.0 - 51.0 % MCV 92.4 83.0 - 101.0 fL MCH 30.2 28.0 - 35.0 pg MCHC 32.7 32.0 - 36.0 g/dL RDW-CV 15.8 (H) <15.0 % RDW-SD 53.1 (H) 35.1 - 46.3 fL Platelet Count 323 140 - 440 K/uL MPV 10.6 6.5 - 12.4 fL % Neutrophils 52.5 45.0 - 82.0 % % Lymphocytes 32.7 20.0 - 45.0 % % Monocytes 10.4 4.0 - 12.0 % % Eosinophils 2.8 0.0 - 5.0 % % Basophils 0.8 0.0 - 1.0 % % Immature granulocytes 0.8 (H) 0.0 - 0.4 % Absolute Neutrophils 5.57 1.80 - 8.50 K/uL Absolute Lymphocytes 3.46 (H) 0.60 - 3.20 K/uL Absolute Monocytes 1.10 (H) 0.00 - 1.00 K/uL Absolute Eosinophils 0.30 0.00 - 0.40 K/uL Absolute Basophils 0.08 0.00 - 0.10 K/uL Absolute Imm. Granulocytes 0.08 (H) 0.00 - 0.03 K/uL nRBC 0 0 - 2 per 100 WBC's NRBC ABS 0.00 0.00 - 0.01 K/uL Basic Metabolic Panel Collection Time: 06/19/18 21:07 Result Value Ref Range NA 138 136 - 149 mmol/L K 4.5 3.5 - 5.1 mmol/L CL 105 98 - 109 mmol/L CO2 25 24 - 31 mmol/L ANION GAP 8 3 - 16 mmol/L GLUCOSE 194 (H) 70 - 109 mg/dL BUN 36 (H) 7 - 18 mg/dL Creatinine, Serum/Plasma 1.77 (H) 0.60 - 1.30 mg/dL eGFR if not 39 (L) >=60 mL/min/1.73m2 CALCIUM 9.5 8.3 - 10.5 mg/dL BUN/CREA 20.3 Protime INR Collection Time: 06/19/18 21:07 Result Value Ref Range Protime 17.5 (H) 11.3 - 13.9 seconds INR 1.5 (H) 0.9 - 1.1 Troponin I Collection Time: 06/19/18 21:07 Result Value Ref Range Troponin I 0.02 <0.06 ng/mL POC Glucose Collection Time: 06/19/18 22:50 Result Value Ref Range Glucose, POC 163 (H) 70 - 109 mg/dL Basic Metabolic Panel Collection Time: 06/20/18 3:05 Result Value Ref Range NA 135 (L) 136 - 149 mmol/L K 4.3 3.5 - 5.1 mmol/L CL 104 98 - 109 mmol/L CO2 22 (L) 24 - 31 mmol/L ANION GAP 9 3 - 16 mmol/L GLUCOSE 177 (H) 70 - 109 mg/dL BUN 33 (H) 7 - 18 mg/dL Creatinine, Serum/Plasma 1.65 (H) 0.60 - 1.30 mg/dL eGFR if not 42 (L) >=60 mL/min/1.73m2 CALCIUM 9.4 8.3 - 10.5 mg/dL BUN/CREA 20.0 CBC with Differential Collection Time: 06/20/18 3:05 Result Value Ref Range WBC 10.5 4.0 - 11.0 K/uL RBC 5.35 4.30 - 5.70 M/uL Hgb 16.3 13.5 - 18.0 g/dL Hct 49.0 40.0 - 51.0 % MCV 91.6 83.0 - 101.0 fL MCH 30.5 28.0 - 35.0 pg MCHC 33.3 32.0 - 36.0 g/dL RDW-CV 15.9 (H) <15.0 % RDW-SD 52.4 (H) 35.1 - 46.3 fL Platelet Count 317 140 - 440 K/uL MPV 10.6 6.5 - 12.4 fL % Neutrophils 54.8 45.0 - 82.0 % % Lymphocytes 31.0 20.0 - 45.0 % % Monocytes 9.8 4.0 - 12.0 % % Eosinophils 2.8 0.0 - 5.0 % % Basophils 0.8 0.0 - 1.0 % % Immature granulocytes 0.8 (H) 0.0 - 0.4 % Absolute Neutrophils 5.77 1.80 - 8.50 K/uL Absolute Lymphocytes 3.25 (H) 0.60 - 3.20 K/uL Absolute Monocytes 1.03 (H) 0.00 - 1.00 K/uL Absolute Eosinophils 0.29 0.00 - 0.40 K/uL Absolute Basophils 0.08 0.00 - 0.10 K/uL Absolute Imm. Granulocytes 0.08 (H) 0.00 - 0.03 K/uL nRBC 0 0 - 2 per 100 WBC's NRBC ABS 0.00 0.00 - 0.01 K/uL Hemoglobin A1C Collection Time: 06/20/18 3:05 Result Value Ref Range Hemoglobin A1c 10.5 (H) 4.3 - 6.0 % Estimated Average Glucose 255 mg/dL Magnesium Collection Time: 06/20/18 3:05 Result Value Ref Range Magnesium 1.7 (L) 1.8 - 2.5 mg/dL Protime INR Collection Time: 06/20/18 3:05 Result Value Ref Range Protime 17.4 (H) 11.3 - 13.9 seconds INR 1.4 (H) 0.9 - 1.1 Phosphorus Collection Time: 06/20/18 3:05 Result Value Ref Range Phosphorus 3.7 2.5 - 4.6 mg/dL Lipid Panel Collection Time: 06/20/18 3:05 Result Value Ref Range Triglycerides 159 35 - 160 mg/dL Cholesterol 188 150 - 200 mg/dL HDL 22 (L) 28 - 83 mg/dL Chol/HDL Ratio 8.5 LDL, Calculated 134 (H) <=130 mg/dL Troponin I Collection Time: 06/20/18 3:05 Result Value Ref Range Troponin I 0.01 <0.06 ng/mL ECG 12 lead Collection Time: 06/20/18 3:45 Result Value Ref Range VENTRICULAR RATE EKG 70 BPM QRS DURATION 104 ms Q-T INTERVAL 420 ms Q-T INTERVAL (CORRECTED) 453 ms QRS AXIS 106 degrees T AXIS 21 degrees INTERPRETATION TEXT Atrial fibrillation Rightward axis Abnormal ECG No previous ECGs available Confirmed by NILAY HERNANDEZ MD ([id number]) on 06/20/2018 6:38:00 AM POC Glucose Collection Time: 06/20/18 7:47 Result Value Ref Range Glucose, POC 128 (H) 70 - 109 mg/dL Troponin I Collection Time: 06/20/18 9:07 Result Value Ref Range Troponin I 0.01 <0.06 ng/mL POC Glucose Collection Time: 06/20/18 11:28 Result Value Ref Range Glucose, POC 170 (H) 70 - 109 mg/dL Micro results Microbiology Results (72 hrs) No results found for the last 72 hours. Radiology results Xr Chest Ap Portable Result Date: 06/20/2018 XR CHEST AP PORTABLE 06/19/2018 9:32 PM HISTORY: Eval for MRI/PPM. COMPARISON: None. Finding s: There appears to be a left pacemaker lead extending to the right ventricle with the left border not imaged. The heart is enlarged. There is atherosclerosis of the aorta. Mediastinum is unremarkable. Pulmonary vasculature is prominent with cephalization. Mild atelectasis is in the left lung base. The right lung is clear. There are no acute osseous abnormalities. I MPRESSION - Apparent pacemaker lead over left chest that is partially imaged. Cardiomegaly w ith pulmonary congestion. Dictated and Signed by: Chacho Yarbrough MD Electronically signed: 12:08 PM Liane Isaac MD 06/20/2018 13:16 [facility] Portions of this chart may have been created with [employer] voice recognition software. Occasi onal wrong-word or sound-alike substitutions may have occurred due to the inherent gupta itations of voice recognition software. Please read the chart carefully and recognize, using context, where these substitutions have occurred documented in this enc ounter Plan of Treatment Not on filedocumented as [...] | + +--------+ + + + | EXTRA LAVENDER TOP | Routin | 06/22/2018 | | Results for this | | TUBE | e | 5:50 AM | | procedure are in the | | | | PDT | | results section. | + +--------+ + + + | PROTIME INR | Routin | 06/22/2018 | | Results for this | | | e | 5:50 AM | | procedure are in the | | | | PDT | | results section. | + +--------+ + + + | BASIC METABOLIC | Routin | 06/22/2018 | | Results for this | | PANEL | e | 5:50 AM | | procedure are in the | | | | PDT | | results section. | + +--------+ + + + | POC GLUCOSE | Routin | 06/21/2018 | | Results for this | | | e | 11:08 PM | | procedure are in the | | | | PDT | | results section. | + +--------+ + + + | POC GLUCOSE | Routin | 06/21/2018 | | Results for this | | | e | 5:01 PM | | procedure are in the | | | | PDT | | results section. | + +--------+ + + + | CT HEAD WO CONTRAST | Routin | 06/21/2018 | | Results for this | | | e | 1:17 PM | | procedure are in the | | | | PDT | | results section. | + +--------+ + + + | POC GLUCOSE | Routin | 06/21/2018 | | Results for this | | | e | 11:27 AM | | procedure are in the | | | | PDT | | results section. | + +--------+ + + + | TROPONIN I | Routin | 06/21/2018 | | Results for this | | | e | 6:25 AM | | procedure are in the | | | | PDT | | results section. | + +--------+ + + + | PROTIME INR | Routin | 06/21/2018 | | Results for this | | | e | 6:25 AM | | procedure are in the | | | | PDT | | results section. | + +--------+ + + + | CBC NO DIFFERENTIAL | Routin | 06/21/2018 | | Results for this | | | e | 6:25 AM | | procedure are in the | | | | PDT | | results section. | + +--------+ + + + | BASIC METABOLIC | Routin | 06/21/2018 | | Results for this | | PANEL | e | 6:25 AM | | procedure are in the | | | | PDT | | results section. | + +--------+ + + + | POC GLUCOSE | Routin | 06/20/2018 | | Results for this | | | e | 9:16 PM | | procedure are in the | | | | PDT | | results section. | + +--------+ + + + | POC GLUCOSE | Routin | 06/20/2018 | | Results for this | | | e | 4:35 PM | | procedure are in the | | | | PDT | | results section. | + +--------+ + + + | CT HEAD WO CONTRAST | Routin | 06/20/2018 | | Results for this | | | e | 3:39 PM | | procedure are in the | | | | PDT | | results section. | + +--------+ + + + | ECHO COMPLETE | Routin | 06/20/2018 | | Results for this | | | e | 3:10 PM | | procedure are in the | | | | PDT | | results section. | + +--------+ + + + | POC GLUCOSE | Routin | 06/20/2018 | | Results for this | | | e | 11:28 AM | | procedure are in the | | | | PDT | | results section. | + +--------+ + + + | TROPONIN I | Routin | 06/20/2018 | | Results for this | | | e | 9:07 AM | | procedure are in the | | | | PDT | | results section. | + +--------+ + + + | POC GLUCOSE | Routin | 06/20/2018 | | Results for this | | | e | 7:47 AM | | procedure are in the | | | | PDT | | results section. | + +--------+ + + + | VAS CAROTID DUPLEX | Routin | 06/20/2018 | | Results for this | | BILATERAL | e | 7:41 AM | | procedure are in the | | | | PDT | | results section. | + +--------+ + + + | ECG 12 LEAD | Routin | 06/20/2018 | | Results for this | | | e | 3:45 AM | | procedure are in the | | | | PDT | | results section. | + +--------+ + + + | LIPID PANEL | Routin | 06/20/2018 | | Results for this | | | e | 3:05 AM | | procedure are in the | | | | PDT | | results section. | + +--------+ + + + | TROPONIN I | Routin | 06/20/2018 | | Results for this | | | e | 3:05 AM | | procedure are in the | | | | PDT | | results section. | + +--------+ + + + | PROTIME INR | Routin | 06/20/2018 | | Results for this | | | e | 3:05 AM | | procedure are in the | | | | PDT | | results section. | + +--------+ + + + | CBC WITH | Routin | 06/20/2018 | | Results for this | | DIFFERENTIAL | e | 3:05 AM | | procedure are in the | | | | PDT | | results section. | + +--------+ + + + | PHOSPHORUS | Routin | 06/20/2018 | | Results for this | | | e | 3:05 AM | | procedure are in the | | | | PDT | | results section. | + +--------+ + + + | MAGNESIUM | Routin | 06/20/2018 | | Results for this | | | e | 3:05 AM | | procedure are in the | | | | PDT | | results section. | + +--------+ + + + | HEMOGLOBIN A1C | Routin | 06/20/2018 | | Results for this | | | e | 3:05 AM | | procedure are in the | | | | PDT | | results section. | + +--------+ + + + | BASIC METABOLIC | Routin | 06/20/2018 | | Results for this | | PANEL | e | 3:05 AM | | procedure are in the | | | | PDT | | results section. | + +--------+ + + + | POC GLUCOSE | Routin | 06/19/2018 | | Results for this | | | e | 10:50 PM | | procedure are in the | | | | PDT | | results section. | + +--------+ + + + | XR CHEST AP PORTABLE | Routin | 06/19/2018 | | Results for this | | | e | 9:32 PM | | procedure are in the | | | | PDT | | results section. | + +--------+ + + + | TROPONIN I | Routin | 06/19/2018 | | Results for this | | | e | 9:07 PM | | procedure are in the | | | | PDT | | results section. | + +--------+ + + + | PROTIME INR | Routin | 06/19/2018 | | Results for this | | | e | 9:07 PM | | procedure are in the | | | | PDT | | results section. | + +--------+ + + + | CBC WITH | Routin | 06/19/2018 | | Results for this | | DIFFERENTIAL | e | 9:07 PM | | procedure are in the | | | | PDT | | results section. | + +--------+ + + + | BASIC METABOLIC | Routin | 06/19/2018 | | Results for this | | PANEL | e | 9:07 PM | | procedure are in the | | | | PDT | | results section. | + +--------+ + + + documented in this encounter Results POC Glucose (06/22/2018 4:31 PM PDT) + +-------+ + + + | Component | Value | Ref Range | Performed | Pathologist | | | | | At | Signature | + +-------+ + + + | Glucose, | 86 | 70 - 109 mg/dL | [facility] + | [facility] | [address] | [place] | [phone] | | [facility] | | [address] | | | - LABORATORY | | | | + + + + + POC Glucose (06/22/2018 11:41 AM PDT) + +-------+ + + + | Component | Value | Ref Range | Performed | Pathologist | | | | | At | Signature | + +-------+ + + + | Glucose, | 99 | 70 - 109 mg/dL | [facility] | [address] | [place] | [phone] | | [facility] | | [address] | | | - LABORATORY | | | | + + + + + Extra Lavender Top Tube (06/22/2018 5:50 AM PDT) + +-------+ + + + | Component | Value | Ref Range | Performed | Pathologist | | | | | At | Signature | + +-------+ + + + | Extra | Done | | [facility] | | | Lavender | | | [facility] | | | Top Tube | | | MEDICAL | | | [...] [address] | [place] | [phone] | | [facility] | | [address] | | | - LABORATORY | | | | + + + + + Basic Metabolic Panel (06/22/2018 5:50 AM PDT) + + + + + + | Component | Value | Ref Range | Performed | Pathologist | | | | | At | Signature | + + + + + + | Na | 138 | 136 - 149 | [facility] | | | | | mmol/L | [facility] | | | | | | MEDICAL | | | | | | CENTER - | | | | | | LABORATORY | | + + + + + + | K | 4.1 | 3.5 - 5.1 | [facility] | [...] + + + + | CO2 | 23 (L) | 24 - 31 mmol/L | [facility] | | | | | [facility] | | | | | | MEDICAL | | | | | | CENTER - | | | | | | LABORATORY | | + + + + + + | Anion Gap | 10 | 3 - 16 mmol/L | [facility] | | [facility] | | | | | | MEDICAL | | | | | | CENTER - | | | | | | LABORATORY | | + + + + + + | Glucose | 126 (H) | 70 - 109 mg/dL | [facility] | | | | | | MEDICAL | | | | | | CENTER - | | | | | | LABORATORY | | + + + + + + | BUN | 32 (H) | 7 - 18 mg/dL | [facility] | | | | | | [facility] | | | | | | MEDICAL | | | | | | CENTER - | | | | | | LABORATORY | | + + + + + + | Creatinine | 1.89 (H) | 0.60 - 1.30 | [facility] | | | | | mg/dL | [facility] | | | | | | MEDICAL | | | | | | CENTER - | | | | | | LABORATORY | | + + + + + + | eGFR if not | 36 (L)Comment: | >=60 | [facility] | | | | GLOMERULAR FILTRATION | mL/min/1.73m2 | [facility] | | | ANDORRAN | RATE,ESTIMATED | | MEDICAL | | | | mL/min/1.64b2Zfao than | | CENTER - | | [...] | 9.4 | 8.3 - 10.5 | [facility] | | | | | mg/dL | [facility] | | | | [...] + | [facility] | [address] | [place] | [phone] | | [facility] | | [address] | | | - LABORATORY | | | | + + + + + Protime INR (06/22/2018 5:50 AM PDT) + + + + + + | Component | Value | Ref Range | Performed | Pathologist | | | | | At | Signature | + + + + + + | Prothrombin | 22.0 (H) | 11.3 - 13.9 | [facility] | | | Time | | seconds | [facility] | | | | | | MEDICAL | | | | | | CENTER - | | | | | | LABORATORY | | + + + + + + | INR | 2.0 (H)Comment: Usual | 0.9 - 1.1 | [facility] | | | | Oral Anticoagulation | | [facility] | | | | Range: 2.0 - | | MEDICAL | | | | 3.0High Level Oral | | CENTER - | | | | Anticoagulation Range: | | LABORATORY | | | | 2.5 - 3.5 | | | | + + + + + + + + | Specimen | + + | Blood | + + + + + + + | Performing | Address | City/State/Zipcode | Phone Number | | Organization | | | | + + + + + | [facility] | [address] | [place] | [phone] | | [facility] | | [address] | | | - LABORATORY | | | | + + + + + POC Glucose (06/21/2018 11:08 PM PDT) + +---------+ + + + | Component | Value | Ref Range | Performed | Pathologist | | | | | At | Signature | + +---------+ + + + | Glucose, | 162 (H) | 70 - 109 mg/dL | [...] + | [facility] | [address] | [place] | [phone] | | [facility] | | [address] | | | - LABORATORY | | | | + + + + + POC Glucose (06/21/2018 5:01 PM PDT) + +---------+ + + + | Component | Value | Ref Range | Performed | Pathologist | | | | | At | Signature | + +---------+ + + + | Glucose, | 133 (H) | 70 - 109 mg/dL | [...] [facility]. | [address] | [place] | [phone] | | [facility] | | [address] | | | - LABORATORY | | | | + + + + + CT Head wo Contrast (06/21/2018 1:17 PM PDT) + + | Specimen | + + | | + + + + + | Narrative | Performed At | + + + | TECHNIQUE: Noncontrast axial CT imaging was obtained through the | [facility] | | brain with coronal and sagittal reformats. CLINICAL INFORMATION: | | | Re- assess the size of the CVA ( for theraleutic purpose to start on | | | NOAC) COMPARISON: CT dated 06/20/2018. FINDINGS: Stable | | | appearance of the right insula acute to subacute infarction. No new | | | infarction. No intracranial hemorrhage, mass, or mass effect. | | | Remote left insular, temporal, and frontal parietal infarctions are | | | stable in appearance. Chronic right basal ganglia lacunar | | | infarctions are again noted. Prominent bilateral carotid siphon | | | and distal vertebral artery calcifications. Stable cerebral volume | | | loss with prominence of the ventricles and other CSF spaces. | | | IMPRESSION - Stable appearance of the right insula acute to subacute | | | infarction. No acute intracranial hemorrhage. Other chronic | | | findings are stable. Dictated and Signed by: Palomo Chino MD | | | Electronically signed: 06/21/2018 2:42 PM | | + + + + + | Procedure Note | + + | Jose Luis, Rad Results In - 06/21/2018 2:45 PM PDT | | TECHNIQUE: Noncontrast axial CT imaging was obtained through the brain with | | coronal and sagittal reformats. | | | | CLINICAL INFORMATION: Re- assess the size of the CVA ( for theraleutic purpose | | to start on NOAC) | | | | COMPARISON: CT dated 06/20/2018. | | | | FINDINGS: | | | | Stable appearance of the right insula acute to subacute infarction. No new | | infarction. | | | | No intracranial hemorrhage, mass, or mass effect. | | | | Remote left insular, temporal, and frontal parietal infarctions are stable in | | appearance. Chronic right basal ganglia lacunar infarctions are again noted. | | | | Prominent bilateral carotid siphon and distal vertebral artery calcifications. | | | | Stable cerebral volume loss with prominence of the ventricles and other CSF | | spaces. | | | | | | IMPRESSION - | | Stable appearance of the right insula acute to subacute infarction. | | | | No acute intracranial hemorrhage. | | | | Other chronic findings are stable. | | | | Dictated and Signed by: Palomo Chino MD | | Electronically signed: 06/21/2018 2:42 PM | + + + +---------+ + + | Performing | Address | City/State/Zipcode | Phone Number | | Organization | | | | + +---------+ + + | [facility] | | | | + +---------+ + + POC Glucose (06/21/2018 11:27 AM PDT) + +---------+ + + + | Component | Value | Ref Range | Performed | Pathologist | | | | | At | Signature | + +---------+ + + + | Glucose, | 137 (H) | 70 - 109 mg/dL | [...] [address] | [place] | [phone] | | [facility] | | [address] | | | - LABORATORY | | | | + + + + + Protime INR (06/21/2018 6:25 AM PDT) + + + + + + | Component | Value | Ref Range | Performed | Pathologist | | | | | At | Signature | + + + + + + | Prothrombin | 18.6 (H) | 11.3 - 13.9 | [facility] | | | Time | | seconds | [facility] | | | | | | MEDICAL | | | | | | CENTER - | | | | | | LABORATORY | | + + + + + + | INR | 1.6 (H)Comment: Usual | 0.9 - 1.1 | [facility] | | | | Oral Anticoagulation | | [facility] | | | | Range: 2.0 - | | MEDICAL | | | | 3.0High Level Oral | | CENTER - | | | | Anticoagulation Range: | | LABORATORY | | | | 2.5 - 3.5 | | | | + + + + + + + + | Specimen | + + | Blood | + + + + + + + | Performing | Address | City/State/Zipcode | Phone Number | | Organization | | | | + + + + + | [facility] | [address] | [place] | [phone] | | [facility] | | [address] | | | - LABORATORY | | | | + + + + + CBC no Differential (06/21/2018 6:25 AM PDT) + + + + + + | Component | Value | Ref Range | Performed | Pathologist | | | | | At | Signature | + + + + + + | WBC | 9.8 | 4.0 - 11.0 K/uL | [facility] | | | | | | [facility] | | | | | | MEDICAL | | | | | | CENTER - | | | | | | LABORATORY | | + + + + + + | RBC | 5.69 | 4.30 - 5.70 | [facility] | | | | | M/uL | [facility] | | | | | | MEDICAL | | | | | | CENTER - | | | | | | LABORATORY | | + + + + + + | Hemoglobin | 17.1 | 13.5 - 18.0 | [facility] | | | | | g/dL | [facility] | | | | | | MEDICAL | | | | | | CENTER - | | | | | | LABORATORY | | + + + + + + | Hematocrit | 51.9 (H) | 40.0 - 51.0 % | [facility] | | | | | | [facility] | | | | | | MEDICAL | | | | | | CENTER - | | | | | | LABORATORY | | + + + + + + | MCV | 91.2 | 83.0 - 101.0 fL | [facility] | | | | | [facility] | | | | | | MEDICAL | | | | | | CENTER - | | | | | | LABORATORY | | + + + + + + | MCH | 30.1 | 28.0 - 35.0 pg | [facility] [...] + + + + | RDW-CV | 16.0 (H) | <15.0 % | [facility] | | | | [facility] | | | | | | MEDICAL | | | | | | CENTER - | | | | | | LABORATORY | | + + + + + + | RDW-SD | 52.8 (H) | 35.1 - 46.3 fL | [facility] | | | | | [facility] | | | | | | MEDICAL | | | | | | CENTER - | | | | | | LABORATORY | | + + + + + + | Platelet | 322 | 140 - 440 K/uL | [facility] | | | Count | | | [facility] | | | | | | MEDICAL | | | | | | CENTER - | | | | | | LABORATORY | | + + + + + + | MPV | 11.0 | 6.5 - 12.4 fL | [facility] [...] [facility] | [address] | [place] | [phone] | | [facility] | | [address] | | | - LABORATORY | | | | + + + + + Basic Metabolic Panel (06/21/2018 6:25 AM PDT) + + + + + + | Component | Value | Ref Range | Performed | Pathologist | | | | | At | Signature | + + + + + + | Na | 138 | 136 - 149 | [facility] | | | | | mmol/L | [facility] | | | | [facility] | [facility] | | | | | | [facility] - | | | | | | LABORATORY | | + + + + + + | K | 4.1 | 3.5 - 5.1 | [facility] | | | | | mmol/L | [facility] | | | | | | [facility] | | | | | | C[facility] - | | | | | | LABORATORY | | + + + + + + | Cl | 106 | 98 - 109 mmol/L | [facility] [...] + + + + | Glucose | 147 (H) | 70 - 109 mg/dL | [facility] | | | | [facility] | [facility] | | | | | | [facility] | | | | | | CENTER - | | | | | | LABORATORY | | + + + + + + | BUN | 30 (H) | 7 - 18 mg/dL | [facility] | | | | | | [facility] | | | | | | [facility] | | | | | | CENTER - | | | | | | LABORATORY | | + + + + + + | Creatinine | 1.62 (H) | 0.60 - 1.30 | [facility] | | | | | mg/dL | [facility] | | | | | | MEDICAL | | | | | | CENTER - | | | | | | LABORATORY | | + + + + + + | eGFR if not | 43 (L)Comment: | >=60 | [place] | | | | GLOMERULAR FILTRATION | mL/min/1.73m2 | [facility] | | | [facility] | RATE,ESTIMATED | | MEDICAL | | | | mL/min/1.46b1Ctga than | | CENTER - | | [...] + + + + | Calcium | 9.5 | 8.3 - 10.5 | [facility] | | | | | mg/dL | [facility] | | | | | | [facility] | | | | | | [facility] - | | | | | | LABORATORY | | + + + + + + | BUN/Creatin | 18.5 | | [facility] | | | ine [...] + | [facility] | [address] | [place] | [phone] | | [facility] | | [address] | | | - LABORATORY | | | | + + + + + Troponin I (06/21/2018 6:25 AM PDT) + + + + + + | Component | Value | Ref Range | Performed | Pathologist | | | | | At | Signature | + + + + + + | Troponin I | 0.03Comment: Reference | <0.06 ng/mL | [facility] | | | | Ranges:0.00-0.06 = | | [facility] | | | | NORMAL>0.06 = | | MEDICAL | | | | SUSPICIOUS FOR | | CENTER - | | | | MYOCARDIAL DAMAGE NOTE: | | LABORATORY | | | | Values greater than 0.50 | | | | | | ng/mL have been shown | | | | | | to be strongly | | | | | | associated with acute | | | | | | myocardial infarction. | | | | | | The [employer] | | | | | | [employer]iology (ACC) | | | | | | recommends a decision | | | | | | limit of 0.06 ng/mL for | | | | | | this assay. Results | | | | | | greater than 0.06 can | | | | | | reflect a pre-infarct | | | | | | acute coronary syndrome, | | | | | | but can also reflect | | | | | | myocardial necrosis or | | | | | | injury that is not due | | | | | | to coronary artery | | | | | | disease. Some of these | | | | | | causes are sepsis, | | | | | | hypocolemia, atrial | | | | | | fibrillation, heart | | | | | | failure, pulmonary | | | | | | embolism, myocarditis, | | | | | | myocardial contusion, | | | | | | and renal failure. The | | | | | | diagnosis of myocardial | | | | | | infarction should be | | | | | | based on a combination | | | | | | of the patient's | | | | | | clinical presentation | | | | | | and the clinical | | | | | | laboratory test results | | | | | | (especially serial | | | | | | troponin levels). | | | | + + + + + + + + | Specimen | + + | Blood | + + + + + + + | Performing | Address | City/State/Zipcode | Phone Number | | Organization | | | | + + + + + | [facility] | [address] | [place] | [phone] | | [facility] | | [address] | | | - LABORATORY | | | | + + + + + POC Glucose (06/20/2018 9:16 PM PDT) + +---------+ + + + | Component | Value | Ref Range | Performed | Pathologist | | | | | At | Signature | + +---------+ + + + | Glucose, | 145 (H) | 70 - 109 mg/dL | [facility] [...] + | [facility] | [address] | [place], [place] | [phone] | | [facility] | | [address] | | | - LABORATORY | | | | + + + + + POC Glucose (06/20/2018 4:35 PM PDT) + +-------+ + + + | Component | Value | Ref Range | Performed | Pathologist | | | | | At | Signature | + +-------+ + + + | Glucose, | 92 | 70 - 109 mg/dL | [facility] [...] [address] | [place] | [phone] | | [facility] | | [address] | | | - LABORATORY | | | | + + + + + CT Head wo Contrast (06/20/2018 3:39 PM PDT) + + | Specimen | + + | | + + + + + | Narrative | Performed At | + + + | EXAM: CT HEAD WO CONTRAST dated 06/20/2018 3:39 PM HISTORY: | [facility] | | left weak, slurred speech Comparison: None. TECHNIQUE: | | | Noncontrast CT is performed from the top of calvarium through the | | | skull base. Coronal and sagittal reformats are performed. DOSE: | | | DLP 785.6 by mGy-cm FINDINGS: BRAIN: There is mild cerebral | | | atrophy. There is appropriate associated prominence of the | | | ventricles. No areas of increased attenuation to suggest | | | intracranial hemorrhage. There is no mass, mass effect, or midline | | | shift. There are no abnormal extra-axial fluid or air collections. | | | Focal area of loss of norton-white differentiation involving the | | | right insula There are mild scattered regions of periventricular and | | | subcortical white matter low density. Focal hypodensity in the right | | | basal ganglia suggesting remote infarcts. Focal encephalomalacia | | | the posterior left frontoparietal junction, left temporal lobe, and | | | left insular cortex. SCALP/ CALVARIUM: The scalp and skull are | | | intact and are unremarkable. SINUSES / ORBITS/ MASTOIDS: The | | | visible mastoid air cells and paranasal sinuses are clear. The | | | globes and retroconal contents are intact and are unremarkable. | | | IMPRESSION - Acute to subacute ischemia involving the right | | | insula. No evidence for intracranial hemorrhage. 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 | | | Evidence of prior lacunar infarcts in the right basal ganglia. | | | Dictated and Signed by: Jorge Cueto MD Electronically signed: | | | 06/20/2018 3:49 PM | | + + + + + | Procedure Note | + + | Jose Luis, Quintin Results In - 06/20/2018 3:52 PM PDT EXAM: CT HEAD WO CONTRAST dated | | 06/20/2018 3:39 PMHISTORY: left weak, slurred speechComparison: None. TECHNIQUE: | | Noncontrast CT is performed from the top of calvarium through theskull base. Coronal | | and sagittal reformats are performed.DOSE: DLP 785.6 by mGy-cmFINDINGS: BRAIN: There is | | mild cerebral atrophy. There is appropriate associatedprominence of the ventricles. | | No areas of increased attenuation to suggestintracranial hemorrhage. There is no mass, | | mass effect, or midline shift. There are no abnormal extra-axial fluid or air | | collections. Focal area of lossof norton-white differentiation involving the right insula | | There are mildscattered regions of periventricular and subcortical white matter low | | density. Focal hypodensity in the right basal ganglia suggesting remote infarcts. | | Focalencephalomalacia the posterior left frontoparietal junction, left temporal lobe,and | | left insular cortex.SCALP/ CALVARIUM: The scalp and skull are intact and are | | unremarkable.SINUSES / ORBITS/ MASTOIDS: The visible mastoid air cells and paranasal | | sinusesare clear. The globes and retroconal contents are intact and are | | unremarkable.IMPRESSION -Acute to subacute ischemia involving the right insula.No | | evidence for intracranial hemorrhage.Remote left insular, left temporal lobe, and left | | frontoparietal infarcts.Evidence of prior lacunar infarcts in the right basal | | ganglia.Dictated and Signed by: Jorge Cueto MD Electronically signed: 06/20/2018 | | 3:49 PM | |Focal hypodensity in the right basal ganglia suggesting remote infarcts. Focal | |encephalomalacia the posterior left frontoparietal junction, left temporal lobe, | |and left insular cortex. | | | |SCALP/ CALVARIUM: The scalp and skull are intact and are unremarkable. | | | |SINUSES / ORBITS/ MASTOIDS: The visible mastoid air cells and paranasal sinuses | |are clear. The globes and retroconal contents are intact and are unremarkable. | | | |IMPRESSION - | | | |Acute to subacute ischemia involving the right insula. | | | |No evidence for intracranial hemorrhage. | | | |Remote left insular, left temporal lobe, and left frontoparietal infarcts. | | | |Evidence of prior lacunar infarcts in the right basal ganglia. | | | |Dictated and Signed by: Jorge uCeto MD | | Electronically signed: 06/20/2018 3:49 PM | + + + +---------+ + + | Performing | Address | City/State/Zipcode | Phone Number | | Organization | | | | + +---------+ + + | [facility] | | | | + +---------+ + + ECHO Complete (06/20/2018 3:10 PM PDT) + +--------+ + + + | Component | Value | Ref Range | Performed | Pathologist | | | | | At | Signature | + +--------+ + + + | LVEF-TTE | 65 | | [facility] | | | TRANSTHORAC | | | | | | IC ECHO | | | | | + +--------+ + + + | BASELINE | 151/76 | mmHg | [facility] | | | BLOOD | | | | | | PRESSURE | | | | | + +--------+ + + + | Patient | 373lb | | [facility] | | | Weight | | | | | | (lbs) | | | | | + +--------+ + + + | Patient | 6f2in | | [facility] | | | Height | | | | | + +--------+ + + + | LVIDd | 4.53 | cm | [facility] | | + +--------+ + + + | FS | 40 | % | [facility] | | + +--------+ + + + | LA volume | 153.22 | mL | [facility] | | + +--------+ + + + | Aortic arch | 3.89 | cm | [facility] | | + +--------+ + + + | AV mean | 3 | mmHg | [facility] | | | gradient | | | | | + +--------+ + + + | MV mean | 61.6 | mmHg | [facility] | | | gradient | | | | | + +--------+ + + + | MV Area by | 4.38 | cm2 | [facility] | | | P 1/2 | | | | | | method | | | | | + +--------+ + + + | IVRT | 78.73 | msec | [facility] | | + +--------+ + + + | LVOT peak | 72.36 | cm/s | [facility] | | | medardo | | | | | + +--------+ + + + | LVOT peak | 17.48 | cm | [facility] | | | VTI | | | | | + +--------+ + + + | AV peak medardo | 110 | cm/s | [facility] | | + +--------+ + + + | AV VTI | 25.00 | cm | [facility] | | + +--------+ + + + | MR max medardo | 496.22 | cm/s | [facility] | | + +--------+ + + + | MV peak | 6.91 | mmHg | [facility] | | | gradient | | | | | + +--------+ + + + | MV VTI | 157.47 | cm | [facility] | | + +--------+ + + + | MV Pressure | 50.24 | msec | [facility] | | | 1/2 time | | | | | + +--------+ + + + | LA Volume | 54 | mL/m2 | [facility] | | | Index | | | | | + +--------+ + + + | AV LVOT | 2.09 | mmHg | [facility] | | | Peak | | | | | | Gradient | | | | | + +--------+ + + + | AV LVOT | 1.11 | mmHg | [facility] | | | Mean | | | | | | Gradient | | | | | + +--------+ + + + | TR Peak | 43 | mmHg | [facility] | | | Gradient | | | | | + +--------+ + + + | TR Velocity | 327.56 | cm | [facility] | | + +--------+ + + + | LV | 7.27 | cm | [facility] | | | Diastolic | | | | | | Length 4C | | | | | + +--------+ + + + | LV Systolic | 20.36 | cm2 | [facility] | | | Area PSAX | | | | | + +--------+ + + + | LV | 65 | % | [facility] | | | Cat's | | | | | | Biplane EF | | | | | + +--------+ + + + | AV | 116.03 | msec | [facility] | | | Acceleratio | | | | | | n Time | | | | | + +--------+ + + + | LV ED | 139.59 | ml | [facility] | | | Volume | | | | | | (Cat's) | | | | | + +--------+ + + + | LV ED | 49 | ml/m2 | [facility] | | | Volume | | | | | | Index | | | | | + +--------+ + + + | LV ES | 48.74 | ml | [facility] | | | Volume | | | | | + +--------+ + + + | LVOT Mean | 49.05 | cm/s | [facility] | | | Velocity | | | | | + +--------+ + + + | MV E' | 4.64 | cm/s | [facility] | | | Lateral | | | | | | Velocity | | | | | + +--------+ + + + | MV E' | 4 | cm/s | [facility] | | | Septal | | | | | | Velocity | | | | | + +--------+ + + + | MV | 765.46 | cm/s2 | [facility] | | | Deceleratio | | | | | | n [place] | | | | | + +--------+ + + + | MV | 173.25 | msec | [facility] | | | Deceleratio | | | | | | n Time | | | | | + +--------+ + + + | MV Peak | 131.39 | cm/s | [facility] | | | E-Wave | | | | | + +--------+ + + + | AV Mean | 77.55 | cm/s | [facility] | | | Velocity | | | | | + +--------+ + + + | LA/Aorta | 1.56 | | [facility] | | | Ratio | | | | | + +--------+ + + + | LA Area | 37.9 | cm2 | [facility] | | + +--------+ + + + | LA Systolic | 37.4 | mmHg | [facility] | | | Pressure | | | | | + +--------+ + + + | MR Pisa | 0.21 | cm2 | [facility] | | | Area | | | | | + +--------+ + + + | MV E/E | 32.85 | | [facility] | | | SEPTAL | | | | | + +--------+ + + + | MV E/E | 28.32 | | [facility] | | | LATERAL | | | | | + +--------+ + + + | LA Major | 0.2475 | cm | [facility] | | + +--------+ + + + | LV ES | 17 | ml/m2 | [facility] | | | Volume | | | | | | Index | | | | | + +--------+ + + + | LV Area | 34.51 | cm2 | [facility] | | | Diastolic | | | | | + +--------+ + + + | Heart Rate | 66 | | [facility] | | + +--------+ + + + | Aortic Root | 3.86 | cm | [facility] | | | Diameter | | | | | + +--------+ + + + | IVS | 1.59 | cm | [facility] | | | Diastolic | | | | | | Thickness | | | | | | MM | | | | | + +--------+ + + + | LVPW | 1.77 | cm | [facility] | | | Diastolic | | | | | | Thickness | | | | | | MM | | | | | + +--------+ + + + | IVS | 2.24 | cm | [facility] | | | Systolic | | | | | | Thickness | | | | | | MM | | | | | + +--------+ + + + | LV Systolic | 2.71 | cm | [facility] | | | Diameter | | | | | | MM | | | | | + +--------+ + + + | LVPW | 2.61 | cm | [facility] | | | Systolic | | | | | | Thickness | | | | | | MM | | | | | + +--------+ + + + | AV Cusp | 2.3 | cm | [facility] | | | Seperation | | | | | | MM | | | | | + +--------+ + + + | LA Systolic | 6.01 | cm | [facility] | | | Diameter | | | | | | MM | | | | | + +--------+ + + + | TAPSE | 2.2 | cm | [facility] | | + +--------+ + + + + + | Specimen | + + | | + + + + --+ | Narrative | Performed At | + + --+ | Transthoracic | [facility] | | Echocardiography Report (TTE) Demographics Patient Name MANOJ | | | SARTHAK Room Number 330 | | | YUMIKO Patient Number [id number] Date of Study | | | 06/20/2018 Visit Number [id number] Accession | | | [id number] Referring Physician DWIGHT JARRETT Number | | | Date of 1950 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 Procedure | | | dateDate: 06/20/2018Start: 02:18 PM Technical Quality: Adequate | | | visualizationStudy Location: PortableIndications: Stroke | | | 436/I67.89.Patient Status: RoutineHeight: 74 inchesWeight: 373 | | | poundsBSA: 2.83 m^2BMI: 47.89 kg/m^2Rhythm: Atrial fibrillationHR: 59 | | | bpm ConclusionsSummaryLeft ventricle is normal in size and function. | | | Ejection fraction isestimated at 65-70%.Mitral valve is moderately | | | thickened with moderate annular calcification andmild to moderate | | | regurgitation.Structurally normal tricuspid valve with mild | | | insufficiency and peakvelocity consistent with RVSP 48-53 | | | mmHg.Biatrial enlargement, left greater than right.No evidence of | | | right to left shunt with agitated saline contrast.Aortic root is | | | mildly enlarged. | | | Signature | | | | | | PM | | | -------- FindingsMitral ValveMitral valve is moderately thickened with | | | moderate annular calcification andmild to moderate | | | regurgitation.Aortic ValveAortic valve is a sclerotic probable | | | trileaflet valve without significantstenosis or | | | regurgitation.Tricuspid ValveStructurally normal tricuspid valve with | | | mild insufficiency and peakvelocity consistent with RVSP 48-53 | | | mmHg.Pulmonic ValvePulmonic valve shows mild insufficiency.Left | | | AtriumLeft atrium moderate to severely enlarged.Left VentricleLeft | | | ventricle is normal in size and function. Ejection fraction | | | isestimated at 65-70%.Right AtriumRight atrium is moderately | | | enlarged.Right VentricleNormal right ventricular size.Right ventricle | | | global systolic function is normal.TAPSE = 2.2 cm.Pericardial | | | EffusionNo evidence of pericardial effusion.Pleural EffusionNo | | | evidence of pleural effusion.MiscellaneousNo evidence of right to left | | | shunt with agitated saline contrast.Aortic root is mildly enlarged. | | | Valves Mitral Valve Peak E-Wave: 131.39 cm/s MYRA | | | PISA: 0.21 cm^2 Tissue Doppler Septal e' Velocity: 4.00 cm/s | | | Lateral e' Velocity: 4.64 cm/s Septal E/e' Ratio: | | | Lateral E/e' Ratio:28.32 Aortic Valve Mean | | | Gradient: 2.72 mmHg Tricuspid Valve TR Velocity: 327.56 cm/s LVOT | | | Peak Velocity: 72.36 cm/s Structures Left Atrium LA A/P Dimension: | | | 6.01 cm LA Area: 37.9 cm^2 LA/Aorta:1.56 | | | LA Volume: 153.22 ml LA Vol/BSA | | | Index: 54 mL/m^2 LA Major:0.2475 Left Ventricle Diastolic Dimension: | | | 4.53 cm Systolic Dimension: 2.71 cm Septum Diastolic: | | | 1.59 cm PW Diastolic: 1.77 cm EF Ndojzmaxl63% EF Calculated: 65% | | | Miscellaneous Aorta Aortic Root: 3.86 cm | | |Findings | | |Mitral Valve | | |Mitral valve is moderately thickened with moderate annular calcification and | | |mild to moderate regurgitation. | | |Aortic Valve | | |Aortic valve is a sclerotic probable trileaflet valve without significant | | |stenosis or regurgitation. | | |Tricuspid Valve | | |Structurally normal tricuspid valve with mild insufficiency and peak | | |velocity consistent with RVSP 48-53 mmHg. | | |Pulmonic Valve | | |Pulmonic valve shows mild insufficiency. | | |Left Atrium | | |Left atrium moderate to severely enlarged. | | |Left Ventricle | | |Left ventricle is normal in size and function. Ejection fraction is | | |estimated at 65-70%. | | |Right Atrium | | |Right atrium is moderately enlarged. | | |Right Ventricle | | |Normal right ventricular size. | | |Right ventricle global systolic function is normal. | | |TAPSE = 2.2 cm. | | |Pericardial Effusion | | |No evidence of pericardial effusion. | | |Pleural Effusion | | |No evidence of pleural effusion. | | |Miscellaneous | | |No evidence of right to left shunt with agitated saline contrast. | | |Aortic root is mildly enlarged. | | | | | |Valves | | | | | | Mitral Valve | | | | | | Peak E-Wave: 131.39 cm/s MYRA PISA: 0.21 cm^2 | | | | | | Tissue Doppler | | | | | | Septal e' Velocity: 4.00 cm/s Lateral e' Velocity: 4.64 cm/s | | | Septal E/e' Ratio: Lateral E/e' Ratio:28.32 | | | | | | Aortic Valve | | | | | | Mean Gradient: 2.72 mmHg | | | | | | Tricuspid Valve | | | | | | TR Velocity: 327.56 cm/s | | | | | | LVOT | | | | | | Peak Velocity: 72.36 cm/s | | | | | |Structures | | | | | | Left Atrium | | | | | | LA A/P Dimension: 6.01 cm LA Area: 37.9 cm^2 | | | LA/Aorta:1.56 LA Volume: 153.22 ml | | | LA Vol/BSA Index: 54 mL/m^2 | | | LA Major:0.2475 | | | | | | Left Ventricle | | | | | | Diastolic Dimension: 4.53 cm Systolic Dimension: 2.71 cm | | | Septum Diastolic: 1.59 cm | | | PW Diastolic: 1.77 cm | | | EF Dhyvvpmra72% | | | EF Calculated: 65% | | | | | | Miscellaneous | | | | | | Aorta | | | | | | Aortic Root: 3.86 cm | | | | | + + --+ + + | Procedure Note | + + | Jose Luis, Rad Results In - 06/20/2018 5:05 PM PDT Transthoracic Echocardiography Report | | (TTE) Demographics Patient Name MANOJ LOWRY Room Number 330 | | [place] Patient Number [id number] Date of Study 06/20/2018 Visit | | Number [id number] Referring Physician DWIGHT | | KOLBY Number Date of 1950 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 | | Ejection fraction isestimated at 65-70%.Mitral valve is moderately thickened with | | moderate annular calcification andmild to moderate regurgitation.Structurally normal | | tricuspid valve with mild insufficiency and peakvelocity consistent with RVSP 48-53 | | mmHg.Biatrial enlargement, left greater than right.No evidence of right to left shunt | | with agitated saline contrast.Aortic root is mildly | | enlarged.Signature | | ------ | | 05:05 | | PM FindingsMi | | tral ValveMitral valve is moderately thickened with moderate annular calcification | | andmild to moderate regurgitation.Aortic ValveAortic valve is a sclerotic probable | | trileaflet valve without significantstenosis or regurgitation.Tricuspid | | ValveStructurally normal tricuspid valve with mild insufficiency and peakvelocity | | consistent with RVSP 48-53 mmHg.Pulmonic ValvePulmonic valve shows mild | | insufficiency.Left AtriumLeft atrium moderate to severely enlarged.Left VentricleLeft | | ventricle is normal in size and function. Ejection fraction isestimated at 65-70%.Right | | AtriumRight atrium is moderately enlarged.Right VentricleNormal right ventricular | | size.Right ventricle global systolic function is normal.TAPSE = 2.2 cm.Pericardial | | EffusionNo evidence of pericardial effusion.Pleural EffusionNo evidence of pleural | | effusion.MiscellaneousNo evidence of right to left shunt with agitated saline | | contrast.Aortic root is mildly enlarged.Valves Mitral Valve Peak E-Wave: 131.39 cm/s | | MYRA PISA: 0.21 cm^2 Tissue Doppler Septal e' Velocity: 4.00 cm/s Lateral | | e' Velocity: 4.64 cm/s Septal E/e' Ratio: Lateral E/e' Ratio:28.32 | | Aortic Valve Mean Gradient: 2.72 mmHg Tricuspid Valve TR Velocity: 327.56 cm/s LVOT | | Peak Velocity: 72.36 cm/sStructures Left Atrium LA A/P Dimension: 6.01 cm | | LA Area: 37.9 cm^2 LA/Aorta:1.56 LA Volume: 153.22 ml LA | | Vol/BSA Index: 54 mL/m^2 LA Major:0.2475 Left Ventricle Diastolic Dimension: 4.53 cm | | Systolic Dimension: 2.71 cm Septum Diastolic: 1.59 cm PW Diastolic: 1.77 cm EF | | Rqholzsib91% EF Calculated: 65% Miscellaneous Aorta Aortic Root: 3.86 cm | |estimated at 65-70%. | |Mitral valve is moderately thickened with moderate annular calcification and | |mild to moderate regurgitation. | |Structurally normal tricuspid valve with mild insufficiency and peak | |velocity consistent with RVSP 48-53 mmHg. | |Biatrial enlargement, left greater than right. | |No evidence of right to left shunt with agitated saline contrast. | |Aortic root is mildly enlarged. | | | |Signature | | | | Electronically signed by WANDA HOFFMANN MD(Interpreting physician) on | | 06/20/2018 05:05 PM | | | | | |Findings | |Mitral Valve | |Mitral valve is moderately thickened with moderate annular calcification and | |mild to moderate regurgitation. | |Aortic Valve | |Aortic valve is a sclerotic probable trileaflet valve without significant | |stenosis or regurgitation. | |Tricuspid Valve | |Structurally normal tricuspid valve with mild insufficiency and peak | |velocity consistent with RVSP 48-53 mmHg. | |Pulmonic Valve | |Pulmonic valve shows mild insufficiency. | |Left Atrium | |Left atrium moderate to severely enlarged. | |Left Ventricle | |Left ventricle is normal in size and function. Ejection fraction is | |estimated at 65-70%. | |Right Atrium | |Right atrium is moderately enlarged. | |Right Ventricle | |Normal right ventricular size. | |Right ventricle global systolic function is normal. | |TAPSE = 2.2 cm. | |Pericardial Effusion | |No evidence of pericardial effusion. | |Pleural Effusion | |No evidence of pleural effusion. | |Miscellaneous | |No evidence of right to left shunt with agitated saline contrast. | |Aortic root is mildly enlarged. | | | |Valves | | | | Mitral Valve | | | | Peak E-Wave: 131.39 cm/s MYRA PISA: 0.21 cm^2 | | | | Tissue Doppler | | | | Septal e' Velocity: 4.00 cm/s Lateral e' Velocity: 4.64 cm/s | | Septal E/e' Ratio: Lateral E/e' Ratio:28.32 | | | | Aortic Valve | | | | Mean Gradient: 2.72 mmHg | | | | Tricuspid Valve | | | | TR Velocity: 327.56 cm/s | | | | LVOT | | | | Peak Velocity: 72.36 cm/s | | | |Structures | | | | Left Atrium | | | | LA A/P Dimension: 6.01 cm LA Area: 37.9 cm^2 | | LA/Aorta:1.56 LA Volume: 153.22 ml | | LA Vol/BSA Index: 54 mL/m^2 | | LA Major:0.2475 | | | | Left Ventricle | | | | Diastolic Dimension: 4.53 cm Systolic Dimension: 2.71 cm | | Septum Diastolic: 1.59 cm | | PW Diastolic: 1.77 cm | | EF Hmojripjy78% | | EF Calculated: 65% | | | | Miscellaneous | | | | Aorta | | | | Aortic Root: 3.86 cm | + + + +---------+ + + | Performing | Address | City/State/Zipcode | Phone Number | | Organization | | | | + +---------+ + + | [facility] | | | | + +---------+ + + POC Glucose (06/20/2018 11:28 AM PDT) + +---------+ + + + | Component | Value | Ref Range | Performed | Pathologist | | | | | At | Signature | + +---------+ + + + | Glucose, | 170 (H) | 70 - 109 mg/dL | [...] ST. | [address] | [place] | [phone] | | [facility] | | [address] | | | - LABORATORY | | | | + + + + + Troponin I (06/20/2018 9:07 AM PDT) + + + + + + | Component | Value | Ref Range | Performed | Pathologist | | | | | At | Signature | + + + + + + | Troponin I | 0.01Comment: Reference | <0.06 ng/mL | [facility] | | | | Ranges:0.00-0.06 = | | [facility] | | | | NORMAL>0.06 = | | [facility] | | | | SUSPICIOUS FOR | | CENTER - | | | | MYOCARDIAL DAMAGE NOTE: | | LABORATORY | | | | Values greater than 0.50 | | | | | | ng/mL have been shown | | | | | | to be strongly | | | | | | associated with acute | | | | | | myocardial infarction. | | | | | | [facility] [place] College of | | | | | | Cardiology (ACC) | | | | | | recommends a decision | | | | | | limit of 0.06 ng/mL for | | | | | | this assay. Results | | | | | | greater than 0.06 can | | | | | | reflect a pre-infarct | | | | | | acute coronary syndrome, | | | | | | but can also reflect | | | | | | myocardial necrosis or | | | | | | injury that is not due | | | | | | to coronary artery | | | | | | disease. Some of these | | | | | | causes are sepsis, | | | | | | hypocolemia, atrial | | | | | | fibrillation, heart | | | | | | failure, pulmonary | | | | | | embolism, myocarditis, | | | | | | myocardial contusion, | | | | | | and renal failure. The | | | | | | diagnosis of myocardial | | | | | | infarction should be | | | | | | based on a combination | | | | | | of the patient's | | | | | | clinical presentation | | | | | | and the clinical | | | | | | laboratory test results | | | | | | (especially serial | | | | | | troponin levels). | | | | + + + + + + + + | Specimen | + + | Blood | + + + + + + + | Performing | Address | City/State/Zipcode | Phone Number | | Organization | | | | + + + + + | [facility] | [address] | [place] | [phone] | | [facility] | | [address] | | | - LABORATORY | | | | + + + + + POC Glucose (06/20/2018 7:47 AM PDT) + +---------+ + + + [...] ST[facility] | [address] | [place] | [phone] | | [facility] | | [address] | | | - LABORATORY | | | | + + + + + VAS Carotid Duplex Bilateral (06/20/2018 7:41 AM PDT) + + | Specimen | + + | | + + + + + | Narrative | Performed At | + + + | VAS CAROTID DUPLEX BILATERAL 06/20/2018 6:50 AM HISTORY: | [facility] | | Evaluate for carotid artery stenosis. COMPARISON: None. | | | PROTOCOL: Norton scale and Doppler images of the carotid arteries. | | | FINDINGS: Right: There is minimal atherosclerosis of the carotid bulb | | | extending into the proximal ICA and ECA. Peak systolic velocity | | | (cm/s), end diastolic velocity (cm/s). Mid CCA: 52, 6 Bulb: 41, 8 | | | ECA: 80, 8 Highest ICA: 58, 15 Vertebral: Antegrade flow Bulb/mid | | | CCA ratio: Less than 1 High ICA/mid CCA ratio: 1.12 Left: There | | | is minimal atherosclerosis of the carotid bulb extending into the | | | proximal ICA and ECA. Peak systolic velocity (cm/s), end diastolic | | | velocity (cm/s). Mid CCA: 51, 11 Bulb: 42, 9 ECA: 84, 10 Highest | | | ICA: 97, 28 Vertebral: Antegrade flow Bulb/mid CCA ratio: Less than | | | 1 High ICA/mid CCA ratio: 1.90 IMPRESSION - No hemodynamically | | | significant stenosis. Dictated and Signed by: Chacho Yarbrough MD | | | Electronically signed: 06/20/2018 1:58 PM | | + + + + + | Procedure Note | + + | Jose Luis, Rad Results In - 06/20/2018 2:01 PM PDT VAS CAROTID DUPLEX BILATERAL 06/20/2018 | | 6:50 AM HISTORY: Evaluate for carotid artery stenosis.COMPARISON: None.PROTOCOL: Norton | | scale and Doppler images of the carotid arteries.FINDINGS:Right: There is minimal | | atherosclerosis of the carotid bulb extending into theproximal ICA and ECA.Peak systolic | | velocity (cm/s), end diastolic velocity (cm/s).Mid CCA: 52, 6Bulb: 41, 8ECA: 80, | | 8Highest ICA: 58, 15Vertebral: Antegrade flowBulb/mid CCA ratio: Less than 1High ICA/mid | | CCA ratio: 1.12Left: There is minimal atherosclerosis of the carotid bulb extending | | into theproximal ICA and ECA.Peak systolic velocity (cm/s), end diastolic velocity | | (cm/s).Mid CCA: 51, 11Bulb: 42, 9ECA: 84, 10Highest ICA: 97, 28Vertebral: Antegrade | | flowBulb/mid CCA ratio: Less than 1High ICA/mid CCA ratio: 1.90IMPRESSION -No | | hemodynamically significant stenosis.Dictated and Signed by: Chacho Yarbrough MD | | Electronically signed: 06/20/2018 1:58 PM | |Mid CCA: 52, 6 | |Bulb: 41, 8 | |ECA: 80, 8 | |Highest ICA: 58, 15 | |Vertebral: Antegrade flow | |Bulb/mid CCA ratio: Less than 1 | |High ICA/mid CCA ratio: 1.12 | | | |Left: There is minimal atherosclerosis of the carotid bulb extending into the | |proximal ICA and ECA. | |Peak systolic velocity (cm/s), end diastolic velocity (cm/s). | |Mid CCA: 51, 11 | |Bulb: 42, 9 | |ECA: 84, 10 | |Highest ICA: 97, 28 | |Vertebral: Antegrade flow | |Bulb/mid CCA ratio: Less than 1 | |High ICA/mid CCA ratio: 1.90 | | | |IMPRESSION - | |No hemodynamically significant stenosis. | | | |Dictated and Signed by: Chacho Yarbrough MD | | Electronically signed: 06/20/2018 1:58 PM | + + + +---------+ + + | Performing | Address | City/State/Zipcode | Phone Number | | Organization | | | | + +---------+ + + | [facility] | | | | + +---------+ + + ECG 12 lead (06/20/2018 3:45 AM PDT) + + + + + + | Component | Value | Ref Range | Performed | Pathologist | | | | | At | Signature | + + + + + + | VENTRICULAR | 70 | BPM | [facility] | | | RATE EKG | | | | | + + + + + + | QRS | 104 | ms | [facility] | | | DURATION | | | | | + + + + + + | Q-T | 420 | ms | [facility] | | | INTERVAL | | | | | + + + + + + | Q-T | 453 | ms | [facility] | | | INTERVAL | | | | | | (CORRECTED) | | | | | + + + + + + | QRS AXIS | 106 | degrees | [facility] | | + + + + + + | T AXIS | 21 | degrees | [facility] | | + + + + + + | INTERPRETAT | Atrial | | [facility] | | | ION TEXT | fibrillationRightward | | | | | | axisAbnormal ECGNo | | | | | | previous ECGs | | | | | | availableConfirmed by | | | | | | NILAY HERNANDEZ MD ([id number]) | | | | | | on 06/20/2018 6:38:00 AM | | | | + + + + + + + + | Specimen | + + | | + + + + + | Narrative | Performed At | + + + | | | + + + + +---------+ + + | Performing | Address | City/State/Zipcode | Phone Number | | Organization | | | | + +---------+ + + | [facility] | | | | + +---------+ + + Troponin I (06/20/2018 3:05 AM PDT) + + + + + + | Component | Value | Ref Range | Performed | Pathologist | | | | | At | Signature | + + + + + + | Troponin I | 0.01Comment: Reference | <0.06 ng/mL | [facility] | | | | Ranges:0.00-0.06 = | | [facility] | | | | NORMAL>0.06 = | | MEDICAL | | | | SUSPICIOUS FOR | | CENTER - | | | | MYOCARDIAL DAMAGE NOTE: | | LABORATORY | | | | Values greater than 0.50 | | | | | | ng/mL have been shown | | | | | | to be strongly | | | | | | associated with acute | | | | | | myocardial infarction. | | | | | | The [employer] | | | | | | Cardiology (ACC) | | | | | | recommends a decision | | | | | | limit of 0.06 ng/mL for | | | | | | this assay. Results | | | | | | greater than 0.06 can | | | | | | reflect a pre-infarct | | | | | | acute coronary syndrome, | | | | | | but can also reflect | | | | | | myocardial necrosis or | | | | | | injury that is not due | | | | | | to coronary artery | | | | | | disease. Some of these | | | | | | causes are sepsis, | | | | | | hypocolemia, atrial | | | | | | fibrillation, heart | | | | | | failure, pulmonary | | | | | | embolism, myocarditis, | | | | | | myocardial contusion, | | | | | | and renal failure. The | | | | | | diagnosis of myocardial | | | | | | infarction should be | | | | | | based on a combination | | | | | | of the patient's | | | | | | clinical presentation | | | | | | and the clinical | | | | | | laboratory test results | | | | | | (especially serial | | | | | | troponin levels). | | | | + + + + + + + + | Specimen | + + | Blood | + + + + + + + | Performing | Address | City/State/Zipcode | Phone Number | | Organization | | | | + + + + + | [facility] | [address] | [place], [place] | [phone] | | [facility] | | [address] | | | - LABORATORY | | | | + + + + + Lipid Panel (06/20/2018 3:05 AM PDT) + + + + + + | Component | Value | Ref Range | Performed | Pathologist | | | | | At | Signature | + + + + + + | Triglycerid | 159 | 35 - 160 mg/dL | [facility] | | | es | | | [facility] | | | | | | MEDICAL | | | | | | CENTER - | | | | | | LABORATORY | | + + + + + + | Cholesterol | 188 | 150 - 200 mg/dL | [facility] | | | | | | [facility] | | | | | | MEDICAL | | | | | | CENTER - | | | | | | LABORATORY | | + + + + + + | HDL | 22 (L)Comment: New | 28 - 83 mg/dL | [facility] | | | | HDL Reference Range as | | [facility] | | | | of May 30, 2015 | | MEDICAL | | | | Values may be 10-20% | | CENTER - | | | | lower with new, | | LABORATORY | | | | standardized method. | | | | + + + + + + | Chol/HDL | 8.5 | | [facility] | | | Ratio | | | [facility] | | | | | | MEDICAL | | | | | | CENTER - | | | | | | LABORATORY | | + + + + + + | LDL, | 134 (H) | <=130 mg/dL | [facility] | | | Calculated | | | [facility] | | [...] + | [facility] | [address] | [place] | [phone] | | [facility] | | [address] | | | - LABORATORY | | | | + + + + + Phosphorus (06/20/2018 3:05 AM PDT) + +-------+ + + + | Component | Value | Ref Range | Performed | Pathologist | | | | | At | Signature | + +-------+ + + + | Phosphorus | 3.7 | 2.5 - 4.6 mg/dL | [facility] | | | | | [...] [address] | [place] | [phone] | | [facility] | | [address] | | | - LABORATORY | | | | + + + + + Protime INR (06/20/2018 3:05 AM PDT) + + + + + + | Component | Value | Ref Range | Performed | Pathologist | | | | | At | Signature | + + + + + + | Prothrombin | 17.4 (H) | 11.3 - 13.9 | [facility] | | | Time | | seconds | [facility] | | | | | | MEDICAL | | | | | | CENTER - | | | | | | LABORATORY | | + + + + + + | INR | 1.4 (H)Comment: Usual | 0.9 - 1.1 | [facility] | | | | Oral Anticoagulation | | [facility] | | | | Range: 2.0 - | | MEDICAL | | | | 3.0High Level Oral | | CENTER - | | | | Anticoagulation Range: | | LABORATORY | | | | 2.5 - 3.5 | | | | + + + + + + + + | Specimen | + + | Blood | + + + + + + + | Performing | Address | City/State/Zipcode | Phone Number | | Organization | | | | + + + + + | [facility] | [address] | [place] | [phone] | | [facility] | | [address] | | | - LABORATORY | | | | + + + + + Magnesium (06/20/2018 3:05 AM PDT) + +---------+ + + + | Component | Value | Ref Range | Performed | Pathologist | | | | | At | Signature | + +---------+ + + + | Magnesium | 1.7 (L) | 1.8 - 2.5 mg/dL | [facility] | | | | | | [facility] | [address] | [place], [place] | [phone] | | [facility] | | [address] | | | - LABORATORY | | | | + + + + + Hemoglobin A1C (06/20/2018 3:05 AM PDT) + + + + + + | Component | Value | Ref Range | Performed | Pathologist | | | | | At | Signature | + + + + + + | Hemoglobin | 10.5 (H) | 4.3 - 6.0 % | [facility] | | | A1c | | | [facility] | | | | | | MEDICAL | | | | | | CENTER - | | | | | | LABORATORY | | + + + + + + | Estimated | 255 | mg/dL | [facility] | | | Average | | | [facility] | | | Glucose | | | MEDICAL | | | [...] + | [facility] | [address] | [place] | [phone] | | [facility] | | [address] | | | - LABORATORY | | | | + + + + + CBC with Differential (06/20/2018 3:05 AM PDT) + + + + + + | Component | Value | Ref Range | Performed | Pathologist | | | | | At | Signature | + + + + + + | WBC | 10.5 | 4.0 - 11.0 K/uL | [facility] | | | | | | [facility] | | | | | | MEDICAL | | | | | | CENTER - | | | | | | LABORATORY | | + + + + + + | RBC | 5.35 | 4.30 - 5.70 | [facility] | | | | | M/uL | [facility] | | | | | | MEDICAL | | | | | | CENTER - | | | | | | LABORATORY | | + + + + + + | Hemoglobin | 16.3 | 13.5 - 18.0 | [facility] | | | | | g/dL | [facility] | | | | | | MEDICAL | | | | | | CENTER - | | | | | | LABORATORY | | + + + + + + | Hematocrit | 49.0 | 40.0 - 51.0 % | [facility] | | | | | | [facility] | | | | | | MEDICAL | | | | | | CENTER - | | | | | | LABORATORY | | + + + + + + | MCV | 91.6 | 83.0 - 101.0 fL | [facility] | | | | | | [facility] | | | | | | MEDICAL | | | | | | CENTER - | | | | | | LABORATORY | | + + + + + + | MCH | 30.5 | 28.0 - 35.0 pg | [facility] | | | | | | [facility] | | | | | | MEDICAL | | | | | | CENTER - | | | | | | LABORATORY | | + + + + + + | MCHC | 33.3 | 32.0 - 36.0 | [facility] | | | | | g/dL | [facility] | | | | | | MEDICAL | | | | | | CENTER - | | | | | | LABORATORY | | + + + + + + | RDW-CV | 15.9 (H) | <15.0 % | [facility] | | | | | | [facility] | | | | | | MEDICAL | | | | | | CENTER - | | | | | | LABORATORY | | + + + + + + | RDW-SD | 52.4 (H) | 35.1 - 46.3 fL | [facility] | | | | | | [facility] | | | | | | MEDICAL | | | | | | CENTER - | | | | | | LABORATORY | | + + + + + + | Platelet | 317 | 140 - 440 K/uL | [facility] | | | Count | | | [facility] | | | | | | MEDICAL | | | | | | CENTER - | | | | | | LABORATORY | | + + + + + + | MPV | 10.6 | 6.5 - 12.4 fL | [facility] | | | | | | [facility] | | | | | | MEDICAL | | | | | | CENTER - | | | | | | LABORATORY | | + + + + + + | % | 54.8 | 45.0 - 82.0 % | [facility] | | | Neutrophils | | | [facility] | | | | | | MEDICAL | | | | | | CENTER - | | | | | | LABORATORY | | + + + + + + | % | 31.0 | 20.0 - 45.0 % | [facility] | | | Lymphocytes | | | [facility] | | | | | | MEDICAL | | | | | | CENTER - | | | | | | LABORATORY | | + + + + + + | % Monocytes | 9.8 | 4.0 - 12.0 % | [facility] | | | | | | [facility] | | | | | | MEDICAL | | | | | | CENTER - | | | | | | LABORATORY | | + + + + + + | % | 2.8 | 0.0 - 5.0 % | [facility] | | | Eosinophils | | | [facility] | | | | | | MEDICAL | | | | | | CENTER - | | | | | | LABORATORY | | + + + + + + | % Basophils | 0.8 | 0.0 - 1.0 % | [facility] | | | | | | [facility] | | | | | | MEDICAL | | | | | | CENTER - | | | | | | LABORATORY | | + + + + + + | % Immature | 0.8 (H)Comment: | 0.0 - 0.4 % | [...] + + + + | Absolute | 5.77 | 1.80 - 8.50 | [facility] | | | Neutrophils | | K/uL | [facility] | | | | | | MEDICAL | | | | | | CENTER - | | | | | | LABORATORY | | + + + + + + | Absolute | 3.25 (H) | 0.60 - 3.20 | [facility] | | | Lymphocytes | | K/uL | [facility] | | | | | | MEDICAL | | | | | | CENTER - | | | | | | LABORATORY | | + + + + + + | Absolute | 1.03 (H) | 0.00 - 1.00 | [facility] | | | Monocytes | | K/uL | [facility] | | | | | | MEDICAL | | | | | | CENTER - | | | | | | LABORATORY | | + + + + + + | Absolute | 0.29 | 0.00 - 0.40 | [facility] | | | Eosinophils | | K/uL | [facility] | | | | | | MEDICAL | | | | | | CENTER - | | | | | | LABORATORY | | + + + + + + | Absolute | 0.08 | 0.00 - 0.10 | [facility] | | | Basophils | | K/uL | [facility] | | | | | | MEDICAL | | | | | | CENTER - | | | | | | LABORATORY | | + + + + + + | Absolute | 0.08 (H) | 0.00 - 0.03 | [facility] | | | Immature | | K/uL | [facility] | | | Granulocyte | | | [...] + | [facility] | [address] | [place] | [phone] | | [facility] | | [address] | | | - LABORATORY | | | | + + + + + Basic Metabolic Panel (06/20/2018 3:05 AM PDT) + + + + + + | Component | Value | Ref Range | Performed | Pathologist | | | | | At | Signature | + + + + + + | Na | 135 (L) | 136 - 149 | [facility] | | | | | mmol/L | [facility] | | | | | | MEDICAL | | | | | | CENTER - | | | | | | LABORATORY | | + + + + + + | K | 4.3 | 3.5 - 5.1 | [facility] | | | | | mmol/L | [facility] | | | | | | MEDICAL | | | | | | CENTER - | | | | | | LABORATORY | | + + + + + + | Cl | 104 | 98 - 109 mmol/L | [facility] [...] + + + | Anion Gap | 9 | 3 - 16 mmol/L | [facility] | | | | | | [facility] | | | | | | MEDICAL | | | | | | CENTER - | | | | | | LABORATORY | | + + + + + + | Glucose | 177 (H) | 70 - 109 mg/dL | [facility] | | | | | | [facility] | | | | | | MEDICAL | | | | | | CENTER - | | | | | | LABORATORY | | + + + + + + | BUN | 33 (H) | 7 - 18 mg/dL | [facility] | | | | | | [facility] | | | | | | MEDICAL | | | | | | CENTER - | | | | | | LABORATORY | | + + + + + + | Creatinine | 1.65 (H) | 0.60 - 1.30 | [facility] | | | | | mg/dL | [facility] | | | | | | MEDICAL | | | | | | CENTER - | | | | | | LABORATORY | | + + + + + + | eGFR if not | 42 (L)Comment: | >=60 | [facility] | | | | GLOMERULAR FILTRATION | mL/min/1.73m2 | [facility] | | | [place] | RATE,ESTIMATED | | MEDICAL | | | | mL/min/1.06m4Ejgz than | | CENTER - | | [...] | 9.4 | 8.3 - 10.5 | [facility] | | | | | mg/dL | [facility] | | | | | | MEDICAL | | | | | | CENTER - | | | | | | LABORATORY | | + + + + + + | BUN/Creatin | 20.0 | | [facility] | | | ine Ratio | | | [facility] | | [...] [address] | [place] | [phone] | | [facility] | | [address] | | | - LABORATORY | | | | + + + + + POC Glucose (06/19/2018 10:50 PM PDT) + +---------+ + + + | Component | Value | Ref Range | Performed | Pathologist | | | | | At | Signature | + +---------+ + + + | Glucose, | 163 (H) | 70 - 109 mg/dL | [...] [facility] | [address] | [place] | [phone] | | [facility] | | [address] | | | - LABORATORY | | | | + + + + + XR Chest AP Portable (06/19/2018 9:32 PM PDT) + + | Specimen | + + | | + + + + + | Narrative | Performed At | + + + | XR CHEST AP PORTABLE 06/19/2018 9:32 PM HISTORY: Eval for | [facility] | | MRI/PPM. COMPARISON: None. Findings: There appears to be a | | | left pacemaker lead extending to the right ventricle with the left | | | border not imaged. The heart is enlarged. There is atherosclerosis of | | | the aorta. Mediastinum is unremarkable. Pulmonary vasculature is | | | prominent with cephalization. Mild atelectasis is in the left lung | | | base. The right lung is clear. There are no acute osseous | | | abnormalities. IMPRESSION - Apparent pacemaker lead over left | | | chest that is partially imaged. Cardiomegaly with pulmonary | | | congestion. Dictated and Signed by: Chacho Yarbrough MD | | | Electronically signed: 06/20/2018 12:08 PM | | + + + + + | Procedure Note | + + | Jose Luis, Rad Results In - 06/20/2018 12:11 PM PDT XR CHEST AP PORTABLE 06/19/2018 9:32 PM | | | | HISTORY: Eval for MRI/PPM. | | | | COMPARISON: None. | | | | Findings: | | There appears to be a left pacemaker lead extending to the right ventricle with | | the left border not imaged. The heart is enlarged. There is atherosclerosis of | | the aorta. Mediastinum is unremarkable. Pulmonary vasculature is prominent with | | cephalization. Mild atelectasis is in the left lung base. The right lung is | | clear. There are no acute osseous abnormalities. | | | | IMPRESSION - | | Apparent pacemaker lead over left chest that is partially imaged. | | | | Cardiomegaly with pulmonary congestion. | | | | Dictated and Signed by: Chacho Yarbrough MD | | Electronically signed: 06/20/2018 12:08 PM | + + + +---------+ + + | Performing | Address | City/State/Zipcode | Phone Number | | Organization | | | | + +---------+ + + | [facility] | | | | + +---------+ + + Troponin I (06/19/2018 9:07 PM PDT) + + + + + + | Component | Value | Ref Range | Performed | Pathologist | | | | | At | Signature | + + + + + + | Troponin I | 0.02Comment: Reference | <0.06 ng/mL | [facility] | | | | Ranges:0.00-0.06 = | | [facility] | | | | NORMAL>0.06 = | | MEDICAL | | | | SUSPICIOUS FOR | | CENTER - | | | | MYOCARDIAL DAMAGE NOTE: | | LABORATORY | | | | Values greater than 0.50 | | | | | | ng/mL have been shown | | | | | | to be strongly | | | | | | associated with acute | | | | | | myocardial infarction. | | | | | | The [employer] | | | | | | Cardiology (ACC) | | | | | | recommends a decision | | | | | | limit of 0.06 ng/mL for | | | | | | this assay. Results | | | | | | greater than 0.06 can | | | | | | reflect a pre-infarct | | | | | | acute coronary syndrome, | | | | | | but can also reflect | | | | | | myocardial necrosis or | | | | | | injury that is not due | | | | | | to coronary artery | | | | | | disease. Some of these | | | | | | causes are sepsis, | | | | | | hypocolemia, atrial | | | | | | fibrillation, heart | | | | | | failure, pulmonary | | | | | | embolism, myocarditis, | | | | | | myocardial contusion, | | | | | | and renal failure. The | | | | | | diagnosis of myocardial | | | | | | infarction should be | | | | | | based on a combination | | | | | | of the patient's | | | | | | clinical presentation | | | | | | and the clinical | | | | | | laboratory test results | | | | | | (especially serial | | | | | | troponin levels). | | | | + + + + + + + + | Specimen | + + | Blood | + + + + + + + | Performing | Address | City/State/Zipcode | Phone Number | | Organization | | | | + + + + + | [facility] | [address] | [place] | [phone] | | [facility] | | [address] | | | - LABORATORY | | | | + + + + + Protime INR (06/19/2018 9:07 PM PDT) + + + + + + | Component | Value | Ref Range | Performed | Pathologist | | | | | At | Signature | + + + + + + | Prothrombin | 17.5 (H) | 11.3 - 13.9 | [facility] | | | Time | | seconds | [facility] | | | | | | MEDICAL | | | | | | CENTER - | | | | | | LABORATORY | | + + + + + + | INR | 1.5 (H)Comment: Usual | 0.9 - 1.1 | [facility] | | | | Oral Anticoagulation | | [facility] | | | | Range: 2.0 - | | MEDICAL | | | | 3.0High Level Oral | | CENTER - | | | | Anticoagulation Range: | | LABORATORY | | | | 2.5 - 3.5 | | | | + + + + + + + + | Specimen | + + | Blood | + + + + + + + | Performing | Address | City/State/Zipcode | Phone Number | | Organization | | | | + + + + + | [facility] | [address] | [place] | [phone] | | [facility] | | [address] | | | - LABORATORY | | | | + + + + + Basic Metabolic Panel (06/19/2018 9:07 PM PDT) + + + + + + | Component | Value | Ref Range | Performed | Pathologist | | | | | At | Signature | + + + + + + | Na | 138 | 136 - 149 | [facility] | | | | | mmol/L | [facility] | | | | | | MEDICAL | | | | | | CENTER - | | | | | | LABORATORY | | + + + + + + | K | 4.5 | 3.5 - 5.1 | [facility] | [...] + + + + | CO2 | 25 | 24 - 31 mmol/L | [facility] [...] + + + + | Glucose | 194 (H) | 70 - 109 mg/dL | [facility] | | | | | | [facility] | | | | | | MEDICAL | | | | | | CENTER - | | | | | | LABORATORY | | + + + + + + | BUN | 36 (H) | 7 - 18 mg/dL | [facility] | | | | | | [facility] | | | | | | MEDICAL | | | | | | CENTER - | | | | | | LABORATORY | | + + + + + + | Creatinine | 1.77 (H) | 0.60 - 1.30 | [facility] | | | | | mg/dL | [facility] | | | | | | MEDICAL | | | | | | CENTER - | | | | | | LABORATORY | | + + + + + + | eGFR if not | 39 (L)Comment: | >=60 | [facility] | | | | GLOMERULAR FILTRATION | mL/min/1.73m2 | [facility] | | | [place] | RATE,ESTIMATED | | MEDICAL | | | | mL/min/1.83k8Rubl than | | CENTER - | | [...] + + + + | Calcium | 9.5 | 8.3 - 10.5 | [facility] | | | | | mg/dL | [facility] | | | | | | MEDICAL | | | | | | CENTER - | | | | | | LABORATORY | | + + + + + + | BUN/Creatin | 20.3 | | [facility] | | | ine [...] ST. | [address] | [place] | [phone] | | [facility] | | [address] | | | - LABORATORY | | | | + + + + + CBC with Differential (06/19/2018 9:07 PM PDT) + + + + + + | Component | Value | Ref Range | Performed | Pathologist | | | | | At | Signature | + + + + + + | WBC | 10.6 | 4.0 - 11.0 K/uL | [facility] [...] + + + + | Hemoglobin | 16.3 | 13.5 - 18.0 | [facility] | | | | | g/dL | [facility] | | | | | | MEDICAL | | | | | | CENTER - | | | | | | LABORATORY | | + + + + + + | Hematocrit | 49.9 | 40.0 - 51.0 % | [facility] | | | | | | [facility] | | | | | | [facility] | | | | | | CENTER - | | | | | | LABORATORY | | + + + + + + | MCV | 92.4 | 83.0 - 101.0 fL | [facility] [...] + + + + | MCHC | 32.7 | 32.0 - 36.0 | [facility] | | | | | g/dL | [facility] | | | | | | MEDICAL | | | | | | CENTER - | | | | | | LABORATORY | | + + + + + + | RDW-CV | 15.8 (H) | <15.0 % | [facility] | | | | | | [facility] | | | | | | [facility]ICAL | | | | | | CENTER - | | | | | | LABORATORY | | + + + + + + | RDW-SD | 53.1 (H) | 35.1 - 46.3 fL | [...] | | | Count | | | [facility] | | | | | | MEDICAL | | | | | | CENTER - | | | | | | LABORATORY | | + + + + + + | MPV | 10.6 | 6.5 - 12.4 fL | [facility] | | | | | | [facility] | | | | | | [facility]ICAL | | | | | | CENTER - | | | | | | LABORATORY | | + + + + + + | % | 52.5 | 45.0 - 82.0 % | [facility] | | | Neutrophils | | | [facility] | | | | | | MEDICAL | | | | | | CENTER - | | | | | | LABORATORY | | + + + + + + | % | 32.7 | 20.0 - 45.0 % | [facility] | | | Lymphocytes | | | [facility] | | | | | | MEDICAL | | | | | | CENTER - | | | | | | LABORATORY | | + + + + + + | % Monocytes | 10.4 | 4.0 - 12.0 % | [facility] | | | | | | [facility] | | | | | | MEDICAL | | | | | | CENTER - | | | | | | LABORATORY | | + + + + + + | % | 2.8 | 0.0 - 5.0 % | [facility] | | | Eosinophils | | | [facility] | | | | | | MEDICAL | | | | | | CENTER - | | | | | | LABORATORY | | + + + + + + | % Basophils | 0.8 | 0.0 - 1.0 % | [facility] | | | | | | [facility] | | | | | | MEDICAL | | | | | | CENTER - | | | | | | LABORATORY | | + + + + + + | % Immature | 0.8 (H)Comment: | 0.0 - 0.4 % | [...] + + + + | Absolute | 5.57 | 1.80 - 8.50 | [facility] | | | Neutrophils | | K/uL | [facility] | | | | | | MEDICAL | | | | | | CENTER - | | | | | | LABORATORY | | + + + + + + | Absolute | 3.46 (H) | 0.60 - 3.20 | [facility] | | | Lymphocytes | | K/uL | [facility] | | | | | | MEDICAL | | | | | | CENTER - | | | | | | LABORATORY | | + + + + + + | Absolute | 1.10 (H) | 0.00 - 1.00 | [facility] | | | Monocytes | | K/uL | [facility] | | | | | | MEDICAL | | | | | | CENTER - | | | | | | LABORATORY | | + + + + + + | Absolute | 0.30 | 0.00 - 0.40 | [facility] | | | Eosinophils | | K/uL | [facility] | | | | | | MEDICAL | | | | | | CENTER - | | | | | | LABORATORY | | + + + + + + | Absolute | 0.08 | 0.00 - 0.10 | [facility] | | | Basophils | | K/uL | [facility] | | | | | | MEDICAL | | | | | | CENTER - | | | | | | LABORATORY | | + + + + + + | Absolute | 0.08 (H) | 0.00 - 0.03 | [facility] [...] ST[facility] | [address] | [place] | [phone] | | [facility] | | [address] | | | - LABORATORY | | | | + + + + + documented in this encounter Visit Diagnoses + + | Diagnosis | + + | Ischemic cerebrovascular accident (CVA) (HCC) | + + | Stage 3 chronic kidney disease (HCC) | + + | IDDM (insulin dependent diabetes mellitus) ([facility]) Type II or unspecified type diabetes | | mellitus without mention of complication, not stated as uncontrolled | + + | HIV (human immunodeficiency virus infection) ([facility]) Asymptomatic human | | immunodeficiency virus (HIV) infection status | + + | Essential hypertension Unspecified essential hypertension | + + | HTN (hypertension) Unspecified essential hypertension | + + | CKD (chronic kidney disease) Chronic kidney disease, unspecified | + + documented in this encounter Administered Medications + +--------+ + +------+------+ | Medication Order | MAR | Action | Dose | Rate | Site | | | Action | Date | | | | + +--------+ + +------+------+ | | Given | 06/21/20 | 1 tablet | | | | ituflcla-fbhnmulqfycj-fdzcOHHqlb | | 18 10:57 | | | | | (TRIUMEQ) 600-50-300 mg per | | PM PDT | | | | | tablet 1 tablet - Patient Own Med | | | | | | | 1 tablet, Oral, NIGHTLY, First | | | | | | | dose on 06/19/18 at 2215, | | | | | | | Hazardous: Use appropriate | | | | | | | handling precautions., Please | | | | | | | walk down patient's own med | | | | | | | (fdwfbvno-ibdykzfhrybl-evujGBZabt | | | | | | | (TRIUMEQ) 600-50-300 mg) to | | | | | | | pharmacy for verification prior | | | | | | | to use. NOT STOCKED BY PHARMACY. | | | | | | | Please communicate to the | | | | | | | provider if the patient or family | | | | | | | is unable to supply the | | | | | | | medication. Thank you!, Amira Neely | | | | | | | Harjeet, Eli 06/19/2018 21:53, | | | | | | | , Indications: Human | | | | | | | Immunodeficiency Virus Disease | | | | | | + +--------+ + +------+------+ +-------+ + +---+---+ | Given | 06/20/20 | 1 tablet | | | | | 18 11:03 | | | | | | PM PDT | | | | +-------+ + +---+---+ +---+---+ | | | +---+---+ + +-------+ +--------+---+---+ | allopurinol (ZYLOPRIM) tablet | Given | 06/22/20 | 100 mg | | | | 100 mg 100 mg, Oral, DAILY, | | 18 8:04 | | | | | First dose on Wed06/22/18 at 0900 | | AM PDT | | | | + +-------+ +--------+---+---+ + +---+ | | | + +---+ | apixaban (ELIQUIS) tablet 5 mg | | | 5 mg, Oral, EVERY 12 HOURS | | | INTERVAL, First dose on Wed | | | 06/22/18 at 1800 | | + +---+ | | | + +---+ + +-------+ +-------+---+---+ | aspirin chewable tablet 81 mg | Given | 06/20/20 | 81 mg | | | | 81 mg, Oral, DAILY, First dose on | | 18 9:09 | | | | | 06/20/18 at 0900 | | AM PDT | | | | + +-------+ +-------+---+---+ +---+---+ | | | +---+---+ + +-------+ +-------+---+---+ | atorvaSTATin (LIPITOR) tablet | Given | 06/22/20 | 80 mg | | | | 80 mg 80 mg, Oral, DAILY, First | | 18 8:04 | | | | | dose on 06/20/18 at 0900 | | AM PDT | | | | + +-------+ +-------+---+---+ +-------+ +-------+---+---+ | Given | 06/21/20 | 80 mg | | | | | 18 8:26 | | | | | | AM PDT | | | | +-------+ +-------+---+---+ | Given | 06/20/20 | 80 mg | | | | | 18 9:09 | | | | | | AM PDT | | | | +-------+ +-------+---+---+ + +---+ | | | + +---+ | dextrose 50% injection 12.5 g | | | 12.5 g, Intravenous, PRN, Low | | | Blood Sugar, Starting 06/19/18 | | | at 2049 | | + +---+ | | | + +---+ + +-------+ +------+---+---+ | finasteride (PROSCAR) tablet 5 | Given | 06/22/20 | 5 mg | | | | mg 5 mg, Oral, DAILY, First dose | | 18 8:00 | | | | | on 06/20/18 at 1530, | | AM PDT | | | | | Reproductive Risk: Use | | | | | | | appropriate handling | | | | | | | precautions., | | | | | | + +-------+ +------+---+---+ +-------+ +------+---+---+ | Given | 06/21/20 | 5 mg | | | | | 18 8:26 | | | | | | AM PDT | | | | +-------+ +------+---+---+ | Given | 06/20/20 | 5 mg | | | | | 18 4:38 | | | | | | PM PDT | | | | +-------+ +------+---+---+ +---+---+ | | | +---+---+ + +-------+ +--------+---+---+ | gabapentin (NEURONTIN) capsule | Given | 06/22/20 | 300 mg | | | | 300 mg 300 mg, Oral, 2 TIMES | | 18 8:00 | | | | | DAILY, First dose on 06/20/18 | | AM PDT | | | | | at 0900 | | | | | | + +-------+ +--------+---+---+ +-------+ +--------+---+---+ | Given | 06/21/20 | 300 mg | | | | | 18 10:58 | | | | | | PM PDT | | | | +-------+ +--------+---+---+ | Given | 06/21/20 | 300 mg | | | | | 18 8:26 | | | | | | AM PDT | | | | +-------+ +--------+---+---+ +---+---+ | | | +---+---+ + +-------+ + +---+---+ | HYDROcodone-acetaminophen | Given | 06/21/20 | 1 tablet | | | | (NORCO) 5-325 mg per tablet 1-2 | | 18 11:02 | | | | | tablet 1-2 tablet, Oral, EVERY 4 | | PM PDT | | | | | HOURS PRN, Pain, Starting Sun | | | | | | | 06/19/18 at 2050 | | | | | | + +-------+ + +---+---+ +-------+ + +---+---+ | Given | 06/21/20 | 1 tablet | | | | | 18 1:31 | | | | | | PM PDT | | | | +-------+ + +---+---+ | Given | 06/21/20 | 1 tablet | | | | | 18 7:44 | | | | | | AM PDT | | | | +-------+ + +---+---+ +---+---+ | | | +---+---+ + +-------+ + +---+ + | insulin glargine (LANTUS | Given | 06/22/20 | 25 Units | | Arm-Left | | SOLOSTAR) 100 units/mL injection | | 18 9:04 | | | Upper | | (pen) 25 Units 25 Units, | | AM PDT | | | | | Subcutaneous, EVERY 12 HOURS (2 | | | | | | | times per day), First dose (after | | | | | | | last modification) on Sun | | | | | | | 06/19/18 at 2300, For subcutaneous | | | | | | | use only. Basal (long acting) | | | | | | | insulin., | | | | | | + +-------+ + +---+ + +-------+ + +---+ + | Given | 06/21/20 | 25 Units | | Arm-Righ | | | 18 11:10 | | | t Upper | | | PM PDT | | | | +-------+ + +---+ + | Given | 06/21/20 | 25 Units | | Arm-Righ | | | 18 8:29 | | | t Upper | | | AM PDT | | | | +-------+ + +---+ + +---+---+ | | | +---+---+ + +-------+ +---------+---+ + | insulin lispro (humaLOG | Given | 06/20/20 | 1 Units | | Arm-Righ | | KWIKPEN) 100 units/mL injection | | 18 12:16 | | | t Upper | | (pen) 0-6 Units 0-6 Units, | | PM PDT | | | | | Subcutaneous, 4 TIMES DAILY WITH | | | | | | | MEALS & NIGHTLY, First dose on | | | | | | | 06/19/18 at 2115, CORRECTION | | | | | | [...] | | | | | NPO, Daytime [id number] Use NIGHT | | | | | | | DOSE for doses scheduled: | | | | | | | HS, 3AM, Nighttime [id number], | | | | | | + +-------+ +---------+---+ + +---+---+ | | | +---+---+ + +-------+ + +---+ + | insulin lispro (humaLOG | Given | 06/22/20 | 15 Units | | Arm-Righ | | KWIKPEN) 100 units/mL injection | | 18 12:16 | | | t Upper | | (pen) 15 Units 15 Units, | | PM PDT | | | | | Subcutaneous, 3 TIMES DAILY WITH | | | | | | | MEALS, First dose (after last | | | | | | | modification) on 06/20/18 at | | | | | | | 0800 | | | | | | + +-------+ + +---+ + +-------+ + +---+ + | Given | 06/22/20 | 15 Units | | Arm-Left | | | 18 8:10 | | | Upper | | | AM PDT | | | | +-------+ + +---+ + | Given | 06/21/20 | 15 Units | | Arm-Righ | | | 18 6:19 | | | t Upper | | | PM PDT | | | | +-------+ + +---+ + +---+---+ | | | +---+---+ + +-------+ +-------+---+---+ | isosorbide mononitrate (IMDUR) | Given | 06/22/20 | 30 mg | | | | ER tablet 30 mg 30 mg, Oral, | | 18 8:00 | | | | | DAILY, First dose on Wed06/21/18 | | AM PDT | | | | | at 0900, Tablet may be cut where | | | | | | | scored but do not crush., | | | | | | + +-------+ +-------+---+---+ +-------+ +-------+---+---+ | Given | 06/21/20 | 30 mg | | | | | 18 8:26 | | | | | | AM PDT | | | | +-------+ +-------+---+---+ +---+---+ | | | +---+---+ + +---------+ +-----+ +---+ | magnesium sulfate 2 g/50 mL | New Bag | 06/20/20 | 2 g | 25 mL/hr | | | IVPB 2 g 2 g, Intravenous, | | 18 5:03 | | | | | Administer over 120 Minutes, | | AM PDT | | | | | ONCE, 06/20/18 at 0500, For 1 | | | | | | | dose, Infuse over 2 hours., | | | | | | + +---------+ +-----+ +---+ +---+---+ | | | +---+---+ + +-------+ +-------+---+---+ | metoprolol tartrate (LOPRESSOR) | Given | 06/22/20 | 25 mg | | | | tablet 25 mg 25 mg, Oral, 2 | | 18 8:00 | | | | | TIMES DAILY, First dose on Wed | | AM PDT | | | | | 06/21/18 at 2100 | | | | | | + +-------+ +-------+---+---+ +-------+ +-------+---+---+ | Given | 06/21/20 | 25 mg | | | | | 18 10:58 | | | | | | PM PDT | | | | +-------+ +-------+---+---+ +---+---+ | | | +---+---+ + +-------+ +------+---+---+ | warfarin (COUMADIN) tablet 5 mg | Given | 06/21/20 | 5 mg | | | | 5 mg, Oral, Daily - Warfarin, | | 18 6:19 | | | | | First dose on 06/20/18 at | | PM PDT | | | | | 1800, Reproductive Risk: Use | | | | | | | appropriate handling precautions. | | | | | | | Drug education required., | | | | | | + +-------+ +------+---+---+ +-------+ +------+---+---+ | Given | 06/20/20 | 5 mg | | | | | 18 5:28 | | | | | | PM PDT | | | | +-------+ +------+---+---+ +---+---+ | | | +---+---+ documented in this encounter
--- OUTSIDE RECORDS SUMMARY | ~2019-08-11 | XMS | Encounter Summary ---
Demographics + + + | Address | [address] | | | [place] [address] | + + + | Home Phone | | + + + | Preferred Language | Unknown | + + + | Marital Status | | + + + | Scientology Affiliation | [id number] | + + + | Race | Unknown | + + + | Ethnic Group | Unknown | + + + Author + + + | Author | [facility] | | | and [place] | + + + | Organization | [facility] | | | and [place] | + + + | Address | Unknown | + + + | Phone | Unavailable | + + + Support + + + + + | Name | Relationship | Address | Phone | + + + + + | Aileen Nelson | ECON | [address] | | | | | [place] | | | | | [address] | | + + + + + Care Team Providers + +------+ + | Care Icu Manager Name | Role | Phone | + +------+ + | Jericho Cao MD | PCP | | + +------+ + Encounter Details +--------+ + + + + | Date | Type | Department | Care Team | Description | +--------+ + + + + | 06/22/ | Hospital [facility] | Pramod Salinas | Neurogenic bladder; | | 2017 - | Encounter | MED [facility] [address] | MD Ekaterina [address] | Acute left | | | | [place], | [address] [place] | hemiparesis (HCC); | | 07/01/ | | [place] [address] | [place] [address] | Diabetic peripheral | | 2018 | | [phone] | [phone] | neuropathy (HCC); | | | | | | Dysphagia due to | | | | | | recent cerebral | | | | | | infarction; HIV | | | | | | (human | | | | | | immunodeficiency | | | | | | virus infection) | | | | | | ([facility]) | +--------+ + + + + Social [...] Grayson a 67 y.o.malewho was admitted to [facility] on for CVA. The patient was in his usual state of health until mid morning of June 19 20 had sudde n onset of left-sided weakness. He was seen in an outlying hospital and emergently transfe rred here to [facility] and admitted by Dr. Todd Sheffield MD. [...] has been on warfarin. Patient presented to [place]. Patient was out of timeframe for TPA [...] narrowed bilater ally. Patient was transferred to [facility] for further evaluation. ASSESSMENT: Principal Problem: Ischemic [...] bubble study ordered -Telemetry -Serial troponins ordered -PT/OT/SHOP DIRECTOR ordered -Unclear medication reconciliation, ordered, as per list which appears to be inaccurate as per patient holding Imdur, hydralazine, metoprolol for permissive hypertension -Neuro checks -Ordered Carotid Ultrasound, no images from [facility] when completed would consider xenia langston with [...] due to kidney injury, listed on [facility] information -Hold metoprolol for now given permissive HTN CKD 3 Cr 1.77 -Cr 2.4 in 2017 at [facility] History of CVA -On Warfarin, no ASA, atorvastatin listed?, likely emboli source in the past -Start ASA, atorvastatin FEN: Advance by bedside eval PPX: Warfarin Disp: PT/OT/SHOP DIRECTOR ordered He underwent brain CT scans on [...] steno sis, which is in contrast to [facility]'s ultrasound. He has pacer sonot amenable [...] Route Frequency Provider Last Rate Last Dose nkrqqqks-jepwrafcxsur-wwvxOXHtlw (TRIUMEQ) 600-50-300 mg per tablet 1 tablet [...] him to provide [facility] at [facility] time. We therefore recommended [...] patient will be discharged today To the [facility] in [facility] to continue with rehab services there. His [...] medication strength aka: IMDUR Unchanged Medications Details hskhkhqr-ykixjjtpresu-xugcCJNddy 600-50-300 mg per tablet Take 1 tablet by mouth Daily. Indications: HIV Disease aka: TRIUMEQ allopurinol 100 mg tablet Take 100 mg by mouth Daily. aka: ZYLOPRIM finasteride 5 mg tablet Take 1 tablet by mouth Daily. aka: PROSCAR gabapentin 600 MG tablet Take 300 mg by mouth 2 times daily. aka: NEURONTIN Saw Selmer 450 MG Caps Take 900 mg by [...] NOT CHANGED Medication Dose Last Dose Taken; lliylmch-ryqwdykxzriz-cuipGVDpjy (TRIUMEQ) 600-50-300 mg per tablet 1 tablet [ ] Take 1 tablet by mouth Daily. Indications: HIV Disease allopurinol (ZYLOPRIM) 100 mg tablet 100 mg [ ] Take 100 mg by mouth Daily. gabapentin (NEURONTIN) 600 MG tablet 300 mg [ ] Take 300 mg by mouth 2 times daily. Saw Selmer 450 MG CAPS 900 mg [ ] [...] this chart may have been created with Ripstone voice recognition software. Occasi onal wrong-word or [...] + + +---------+ + + | Saw Selmer 450 | Take 900 mg by mouth | | 0 | | | | MG CAPS | 2 times daily. | | | | | + + + +---------+ + + documented as of this encounter Progress Notes Pramod Salinas MD - 06/30/2018 3:37 PM PDT Dqug-ef-Ydee Rehabilitation Medicine Daily Progress Note Date: 06/30/18 [...] cognitive impairment Current Meds: Current Facility-Administered Medications: vugjqfsz-exfuncgnvlai-lhrwUXCizl (TRIUMEQ) 600-50-300 mg per tablet 1 tablet [...] therapy, speech therapy, case management, and social work instructor #Rehab - -Continue PT for gait, mobility -Continue OT for ADL's, toileting, adaptive equipment -Continue SHOP DIRECTOR for cognition, swallow -Continue SW for discharge [...] continuing to coordinate and collaborate with the [facility] nursing staff to complement their therapy treatment focus, especially considering safety factors, as the patient is mobilized on the nursing unit. The patient is seen in collaboration with the rehab team. I met with the charge nurse fran navaing overall nursing care concerns. We also met with the patient and his , as well as our correctional counselor/case manager, patient's bedside nurse, reviewing the patient's current [...] Notes document close and ongoing Physiatric involvement; ylsw-sg-ukic vis its , professionally assessing the Patient, [...] time, as well as time communicating with [facility] patient and treatment team as discussed above. Signed: Pramod Salinas MD Portions of this chart may have been created with Ripstone voice recognition software. Occasi onal wrong-word or sound-alike substitutions may have occurred due to the inherent gupta itations of voice recognition software. Please read the chart carefully and recognize, using context, where these substitutions have occurred. ill, Pramod Tobar MD - 06/29/2018 4:33 PM PDT Nuva-ui-Kfvr Rehabilitation Medicine Daily Progress Note Date: 06/29/18 [...] cognitive impairment Current Meds: Current Facility-Administered Medications: rnmwnrvj-ctpyscalgykb-sapjQLHopf (TRIUMEQ) 600-50-300 mg per tablet 1 tablet [...] therapy, speech therapy, case management, and social work instructor #Rehab - -Continue PT for gait, mobility -Continue OT for ADL's, toileting, adaptive equipment -Continue SHOP DIRECTOR for cognition, swallow -Continue SW for discharge [...] plan was provided to the patient. Each steam crane operator is addressing this as the patient advances [...] board transfers. I met with the patient's correctional counselor/case manager and reviewed the current rehabilitation plan of [...] this chart may have been created with Ripstone voice recognition software. Occasi onal wrong-word or sound-alike substitutions may have occurred due to the inherent gupta itations of voice recognition software. Please read the chart carefully and recognize, using context, where these substitutions have occurred. ill, Pramod Tobar MD - 06/28/2018 4:46 PM PDT Hfxh-ok-Xswh Rehabilitation Medicine Daily Progress Note Date: 06/28/18 [...] cognitive impairment Current Meds: Current Facility-Administered Medications: wtiltckn-czmbnlbpszfn-bzzyOEVnqt (TRIUMEQ) 600-50-300 mg per tablet 1 tablet [...] therapy, speech therapy, case management, and social work instructor #Rehab - -Continue PT for gait, mobility -Continue OT for ADL's, toileting, adaptive equipment -Continue SHOP DIRECTOR for cognition, swallow -Continue SW for discharge [...] Note documents close and ongoing Physiatric involvement; qiog-wh-bwym vis its , professionally assessing the Patient [...] needs, o r more likely discharge to correction facility. He stated understanding of this. Please see the Rehabilitation Interdisciplinary Team Conference notes for further details regarding rehabilitation team discussion and plan. Following team conference I met with the patient and discussed the above. Safety with self-care and mobility were discussed. The patient's current rehabilitation plan of care and projected discharge destination were discussed and reviewed with the patient and our correctional counselor/case manager. She is collaborating with the patient's support [...] this chart may have been created with Ripstone voice recognition software. Occasi onal wrong-word or sound-alike substitutions may have occurred due to the inherent gupta itations of voice recognition software. Please read the chart carefully and recognize, using context, where these substitutions have occurred. [facility] - 06/27/2018 4:47 PM PDT Btqu-ml-Golv Rehabilitation Medicine Daily Progress Note Date: 06/27/18 [...] cognitive impairment Current Meds: Current Facility-Administered Medications: hcitrbtv-rudqhjvubqsq-zqrdLRMlzo (TRIUMEQ) 600-50-300 mg per tablet 1 tablet [...] BID, Pramod Salinas MD, 25 mg at 06/27/18 0832 [...] therapy, speech therapy, case management, and social work instructor #Rehab - -Continue PT for gait, mobility -Continue OT for ADL's, toileting, adaptive equipment -Continue SHOP DIRECTOR for cognition, swallow -Continue SW for discharge [...] pain complaints. I met with the patient's correctional counselor/case manager and reviewed the current rehabilitation plan of [...] Notes document close and ongoing Physiatric involvement; jmgd-sj-mrjc vis its , professionally assessing the Patient, both Medically and Functionally, with the empha sis on the important interactions between our Patient's current clinical status, especially issues/barriers that may impact on the Rehabilitation Team's treatment and progress toward o medical and functional goals. I opine that this is important, so we may maximize our Patient's capacity to benefit from [facility] Comprehensive Inpatient Medical Rehabilitation process. The patient [...] the full inpatient rehabilitation treatment team in [facility] is planned. Total time: 37 minutes. I spent greater than 50% of the time regarding patient care and co ordination of the Medical Rehabilitation Team treatment focus addressing these patient care needs on this date, including nursing unit/floor time, as well as time communicating with [facility] patient and treatment team as discussed above. Signed: Pramod Salinas MD Portions of this chart may have been created with Ripstone voice recognition software. Occasi onal wrong-word or [...] might be different from the origi nal. Mnjy-ti-Fpuu Rehabilitation Medicine Daily Progress Note Date: 06/24/18 [...] virus infection) Current Meds: Current Facility-Administered Medications: kcamwpby-sqhjiimvmpmr-mmevCWNzok (TRIUMEQ) 600-50-300 mg per tablet 1 tablet [...] therapy, speech therapy, case management, and social work instructor #Rehab - -Continue PT for gait, mobility -Continue OT for ADL's, toileting, adaptive equipment -Continue SHOP DIRECTOR for cognition, swallow -Continue SW for discharge [...] Notes document close and ongoing Physiatric involvement; awaj-hn-jksx vis its , professionally assessing the Patient, [...] continuing to coordinate and collaborate with the [facility] nursing staff to complement their therapy treatment [...] bowel and bladder, and coordination with the Call Worker managing medical co -morbidities; including Coordinate with [...] term memory, problem solving and carry over. Putty Patcher Respiratory Therapy Please see each of the [...] of function to allow discharge to the [facility] at the optimal level of function. Current [...] am is advanced. Specific short term and terminal supervisor Rehabilitation Team Treatment Goals will be developed, sh ared and implemented in collaboration with our patient and family/caregivers. The [employer] is the church Rehab steam crane operator interfacing with them. Rehab Potential: Good Expected [...] Tobar MD - 06/23/2018 12:33 PM PDT Mayu-jl-Jpuc Rehabilitation Medicine Daily Progress Note Date: 06/23/18 [...] virus infection) Current Meds: Current Facility-Administered Medications: adwfveun-nihsaybtkxfs-meuaLHFiur (TRIUMEQ) 600-50-300 mg per tablet 1 tablet [...] therapy, speech therapy, case management, and social work instructor #Rehab - -Continue PT for gait, mobility -Continue OT for ADL's, toileting, adaptive equipment -Continue SHOP DIRECTOR for cognition, swallow -Continue SW for discharge [...] I met with our patient and the correctional counselor/case manager, and we reviewed the overall plan of care and p rojected discharge destination. Note: My Progress Notes document close and ongoing Physiatric involvement; xbcr-ac-nfsn vi sits, professionally assessing the Patient, both [...] continuing to coordinate and collaborate with the [facility]'s nursing staff to complement their therapy treatment [...] up with the patient's bedside nurse, and correctional counselor/case manager/healthcare social worker. Total time: 37 minutes. I spent greater than 50% of the time regarding patient care and co ordination of the Medical Rehabilitation Team treatment focus addressing these patient care needs on this date, including nursing unit/floor time, as well as time communicating with [facility] patient and treatment team as discussed above. [...] patient is in a one-story house in [facility] with his wi fe. There is a ramp installed and otherwise there are 6 steps to enter the building. 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 He also served in the [employer] for 3-1/2 years. He is independent with [...] bowel and bladder, and coordination with the Call Worker management medical comorbid ities. Therapies: Physical Therapy [...] of the Comprehensive Medical Rehabilitation Program.) Clinical Car Carder Pharmacist Goals: Medical stability and safety with [...] collaboration with our patient and family/caregivers. The [employer] is the church Rehab steam crane operator interfacing with them. Rehab potential is good. Estimated length of stay: 14 days. Discharge Plan: Discharge to premorbid independent living setting with the supportive car e of family/caregivers and community resources. Signed: Pramod Salinas MD 06/23/2018 12:34 Portions of this chart may have been created with Ripstone voice recognition software. Occasi onal wrong-word or [...] [address] | [place] | [phone] | | [facility] | | [address] | | | - LABORATORY | | [...] [address] | [place] | [phone] | | [facility] | | [address] | | | - LABORATORY | | [...] [address] | [place] | [phone] | | [facility] | | [address] | | | - LABORATORY | | [...] + | [facility] | [address] | [place] | [phone] | | [facility] | | [address] | | | - LABORATORY | | [...] [address] | [place] | [phone] | | [facility] | | [address] | | | - LABORATORY | | [...] [address] | [place] | [phone] | | [facility] | | [address] | | | - LABORATORY | | [...] | | POC | | | [facility] | | | | | | MEDICAL [...] [address] | [place] | [phone] | | [facility] | | [address] | | | - LABORATORY | | [...] + | [facility] | [address] | [place] | [phone] | | [facility] | | [address] | | | - LABORATORY | | [...] [address] | [place] | [phone] | | [facility] | | [address] | | | - LABORATORY | | [...] [address] | [place] | [phone] | | [facility] | | [address] | | | - LABORATORY | | [...] + | [facility] | [address] | [place] | [phone] | | [facility] | | [address] | | | - LABORATORY | | [...] [address] | [place] | [phone] | | [facility] | | [address] | | | - LABORATORY | | [...] [address] | [place] | [phone] | | [facility] | | [address] | | | - LABORATORY | | [...] + | [facility] | [address] | [place] | [phone] | | [facility] | | [address] | | | - LABORATORY | | [...] mL/min/1.73m2 | [facility] | | | AFGHAN | RATE,ESTIMATED | | MEDICAL | | | | mL/min/1.74v0Wvmk than | | CENTER - | | [...] [address] | [place] | [phone] | | [facility] | | [address] | | | - LABORATORY | | [...] [address] | [place] | [phone] | | [facility] | | [address] | | | - LABORATORY | | [...] + | [facility] | [address] | [place] | [phone] | | [facility] | | [address] | | | - LABORATORY | | [...] | | POC | | | [facility] | | | | | | MEDICAL [...] ST. | [address] | [place] | [phone] | | [facility] | | [address] | | | - LABORATORY | | [...] [address] | [place] | [phone] | | [facility] | | [address] | | | - LABORATORY | | [...] [address] | [place] | [phone] | | [facility] | | [address] | | | - LABORATORY | | [...] + | [facility] | [address] | [place] | [phone] | | [facility] | | [address] | | | - LABORATORY | | [...] [address] | [place] | [phone] | | [facility] | | [address] | | | - LABORATORY | | [...] [address] | [place] | [phone] | | [facility] | | [address] | | | - LABORATORY | | [...] + | [facility] | [address] | [place] | [phone] | | [facility] | | [address] | | | - LABORATORY | | [...] [address] | [place] | [phone] | | [facility] | | [address] | | | - LABORATORY | | [...] [address] | [place] | [phone] | | [facility] | | [address] | | | - LABORATORY | | [...] + | [facility] | [address] | [place] | [phone] | | [facility] | | [address] | | | - LABORATORY | | [...] + | [facility] | [address] | [place] | [phone] | | [facility] | | [address] | | | - LABORATORY | | [...] | | POC | | | [facility] | | | | | | MEDICAL [...] [address] | [place] | [phone] | | [facility] | | [address] | | | - LABORATORY | | [...] + | [facility] | [address] | [place] | [phone] | | [facility] | | [address] | | | - LABORATORY | | [...] + | [facility] | [address] | [place] | [phone] | | [facility] | | [address] | | | - LABORATORY | | [...] [address] | [place] | [phone] | | [facility] | | [address] | | | - LABORATORY | | [...] ST. | [address] | [place], [place] | [phone] | | [facility] | | [address] | | | - LABORATORY | | [...] + | [facility] | [address] | [place] | [phone] | | [facility] | | [address] | | | - LABORATORY | | [...] | | POC | | | [facility] | | | | | | MEDICAL [...] ST. | [address] | [place], [place] | [phone] | | [facility] | | [address] | | | - LABORATORY | | [...] [address] | [place] | [phone] | | [facility] | | [address] | | | - LABORATORY | | [...] + | [facility] | [address] | [place] | [phone] | | [facility] | | [address] | | | - LABORATORY | | [...] | mL/min/1.73m2 | CAT | | | AFGHAN | RATE,ESTIMATED | | MEDICAL | | | | mL/min/1.18f7Ibcu than | | CENTER - | | [...] | 9.4 | 8.3 - 10.5 | [facility] | | | | | mg/dL | [...] [address] | [place] | [phone] | | [facility] | | [address] | | | - LABORATORY | | [...] + | [facility] | [address] | [place] | [phone] | | [facility] | | [address] | | | - LABORATORY | | [...] [address] | [place] | [phone] | | [facility] | | [address] | | | - LABORATORY | | [...] [address] | [place] | [phone] | | [facility] | | [address] | | | - LABORATORY | | [...] + | HIV (human immunodeficiency virus infection) ([facility]) Asymptomatic human | | immunodeficiency virus (HIV) infection status | + + | Ischemic cerebrovascular accident (CVA) ([facility]) | + + | IDDM (insulin dependent diabetes mellitus) ([facility]) Type II or unspecified type [...] | 1 tablet | | | | styipgeq-aqpzrvlbgknk-nridNMDsoy | | 18 8:34 | | | [...] | | | | | modification) on [facility] 06/23/18 at | | | | [...] | | | (after last modification) on [facility] | | AM PDT | | [...] | | | | | NPO, Daytime 5626-3123 Use NIGHT | | | | | | | DOSE for doses scheduled: | | | | | | | HS, 3AM, Nighttime 1118-6873, | | | | | | | [...]
--- OUTSIDE RECORDS SUMMARY | ~2019-08-11 | XMS | Encounter Summary ---
Demographics + + + | Address | [address] [place] [address] | | | [place] [address] | + + + | Home Phone | | + + + | Preferred Language | Unknown | + + + | Marital Status | Single | + + + | Hoahaoism Affiliation | PEN | + + + | Race | White | + + + | Ethnic Group | Not or | + + + Author + + + | Author | [facility] | + + + | Organization | [facility] | + + + | Address | Unknown | + + + | Phone | Unavailable | + + + Support + + + + + | Name | Relationship | Address | Phone | + + + + + | Aileen Nelson | ECON | [address] | | | | | [place] [address] | | + + + + + Care Team Providers + +------+ + | Care Manager Of Development Name | Role | Phone | + +------+ + PCP | Unavailable | + +------+ + Encounter Details +--------+ + + + + | Date | Type | Department | Care Team | Description | +--------+ + + + + | 05/09/ | Results | NON-[facility] | José [...] + | CAP GLU,POC | Routin | 05/09/2015 | | Results for this | | | e | 9:47 PM | | procedure are in the | | | | PDT | | results section. | + +--------+ + + + | CAP GLU,POC | Routin | 05/09/2015 | | Results for this | | | e | 5:52 PM | | procedure are in the | | | | PDT | | results section. | + +--------+ + + + | CAP GLU,POC | Routin | 05/09/2015 | | Results for this | | | e | 11:38 AM | | procedure are in the | | | | PDT | | results section. | + +--------+ + + + | CAP GLU,POC | Routin | 05/09/2015 | | Results for this | | | e | 7:42 AM | | procedure are in the | | | | PDT | | results section. | + +--------+ + + + | CBC WITH MANUAL | Routin | 05/09/2015 | | Results for this | | DIFFERENTIAL | e | 5:40 AM | | procedure are in the | | | | PDT | | results section. | + +--------+ + + + | INR | Routin | 05/09/2015 | | Results for this | | | e | 5:40 AM | | procedure are in the | | | | PDT | | results section. | + +--------+ + + + | BASIC METABOLIC SET | Routin | 05/09/2015 | | Results for this | | (NA, K, CL, TCO2, | e | 5:40 AM | | procedure are in the | | BUN, CR, GLU, CA) | | PDT | | results section. | + +--------+ + + + documented in this encounter Results CAP GLU,POC (05/09/2015 9:47 PM PDT) + + + + + + | Component | Value | Ref Range | Performed | Pathologist | | | | | At | Signature | + + + + + + | BLOOD | 161 (A)Comment: Meter | 70 - 110 MG/DL | [facility] | | | GLUCOSE, | ID: [id number]: | | OF CARE | | | POC | [id number] Geraldo Wells | | TESTING | | | |Electric Scoop Operator: [id number] Geraldo Wells | | | | | | | [...] | + +---------+ + + CAP GLU,POC (05/09/2015 5:52 PM PDT) + + + + + + | Component | Value | Ref Range | Performed | Pathologist | | | | | At | Signature | + + + + + + | BLOOD | 121 (A)Comment: Meter | 70 - 110 MG/DL | [facility] | | | GLUCOSE, | ID: [id number]: | | OF CARE | | | POC | [id number] Erik Salazar | | TESTING | | | |Electric Scoop Operator: [id number] Erik Salazar | | | | | | | [...] | + +---------+ + + AIDE MCALLISTER (05/09/2015 11:38 AM PDT) + + + + + + | Component | Value | Ref Range | Performed | Pathologist | | | | | At | Signature | + + + + + + | BLOOD | 149 (A)Comment: Meter | 70 - 110 MG/DL | [facility] | | | GLUCOSE, | ID: [id number]: | | OF CARE | | | POC | [id number] Erik Salazar | | TESTING | | | |Electric Scoop Operator: [id number] Erik Salazar | | | | | | | [...] | + +---------+ + + CAP GLU,POC (05/09/2015 7:42 AM PDT) + + + + + + | Component | Value | Ref Range | Performed | Pathologist | | | | | At | Signature | + + + + + + | BLOOD | 77Comment: Meter ID: | 70 - 110 MG/DL | [facility] | | | GLUCOSE, | [id number]: | | OF CARE | | | POC | [id number] Erik Salazar | | TESTING | | | |Electric Scoop Operator: [id number] Erik Salazar | | | | | | | [...] K, CL, TCO2, BUN, CR, GLU, CA) (05/09/2015 5:40 AM PDT) + +---------+ + + + [...] +---------+ + + + | CHLORIDE, | 96 | 96 - 106 mmol/L | [facility] | | | PLASMA | | | [facility] | | | (LAB) | | | LABORATORY | | + +---------+ + + + | ANION GAP | 17 | 12 - 20 MEQ/L | [facility] | | | | | | [facility] | | | | | | LABORATORY | | + +---------+ + + + | GLUCOSE, | 76 | 70 - 105 mg/dL | [facility] [...] +---------+ + + + | CREATININE | 1.6 [...] +---------+ + + + | ESTIMATED | 46.5 [...] +---------+ + + CBC WITH MANUAL DIFFERENTIAL (05/09/2015 5:40 AM PDT) + + + + + + | Component | Value | Ref Range | Performed | Pathologist | | | | | At | Signature | + + + + + + | WHITE BLOOD | 9.3 | 3.2 - 11.0 X10 | [facility] | | | CELL COUNT | | 3/uL | [facility] | | | | | | LABORATORY | | + + + + + + | HEMOGLOBIN | 13.9 | 12.0 - 18.0 | [facility] | | | | | g/dL | [facility] | | | | | | LABORATORY | | + + + + + + | RED BLOOD | 4.50 | 3.5 - 6.0 X10 | [facility] | | | CELL COUNT | | 6/uL | [facility] | | | | | | LABORATORY | | + + + + + + | HEMATOCRIT | 43.1 | 37.0 - 52.0 % | [facility] | | | | | | [facility] | | | | | | LABORATORY | | + + + + + + | MCV | 95.8 | 82 - 100 fL | [facility] [...] + + + + | RDW | 17.1 (A) | 12 - 16 % | [facility] | | | | | | [facility] | | | | | | LABORATORY | | + + + + + + | PLATELET | 396 (A) | 140 - 350 X10 3 | [facility] | | | COUNT | | | [facility] | | | | | | LABORATORY | | + + + + + + | MPV | 9.2 | 7.0 - 12.0 fL | [facility] | | | | | | [facility] | | | | | | LABORATORY | | + + + + + + | NEUTROPHIL | 56.4 | 40 - 80 % | [facility] | | | % | | | [facility] | | | | | | LABORATORY | | + + + + + + | LYMPHOCYTE | 33.2 | 15 - 45 % | [facility] | | | % | | | [facility] | | | | | | LABORATORY | | + + + + + + | EOS % | 2.9 | 0 - 6.0 % | [facility] | | | | | | [facility] | | | | | | LABORATORY | | + + + + + + | BASO % | 1.2 | 0 - 2.0 % | [facility] | | | | | | MEDITECH | | | | | | LABORATORY | | + + + + + + | MONOCYTE % | 6.3 | 4.0 - 12.0 % | [facility] | | | | | | [facility] | | | | | | LABORATORY | | + + + + + + | NEUTRO % | 55 | 40 - 70 % | [facility] | | | | | | MEDITECH | | | | | | LABORATORY | | + + + + + + | LYMPHOCYTE | 29 | 10 - 45 % | [facility] [...] + + + + | EOSINOPHIL% | 9 (A) | 0 - 5 % | [facility] | | | , MANUAL | | | [facility] | | | | | | LABORATORY | | + + + + + + | RBC | 1+ ANISOCYTOSIS | NORMAL | [facility] | | | MORPHOLOGY | | | [facility] | | | | | | LABORATORY | | + + + + + + | RBC | SLIGHT POLYCHROMASIA | NORMAL | [facility] | | | MORPHOLOGY | | | MEDITECH | | | | | | LABORATORY | | + + + + + + | WBC | NORM WBC MORPHOLOGY | NORMAL | [facility] | | | MORPHOLOGY | | | MEDITECH | | | | | | LABORATORY | | + + + + + + | PLATELET | PLATELETS INCREASED | NORMAL | [facility] | | | [...] | | + +---------+ + + INR (05/09/2015 5:40 AM PDT) + + + + + + | Component | Value | Ref Range | Performed | Pathologist | | | | | At | Signature | + + + + + + | PROTHROMBIN | 52.0 (A) | 8.6 - 11.2 SEC | [facility] | | | TIME | | | [facility] | | | | | | LABORATORY | | + + + + + + | INR | 5.0 (A) | 1.0 - 1.1 | [facility] [...]
--- OUTSIDE RECORDS SUMMARY | ~2019-08-11 | XMS | Encounter Summary ---
Demographics + + + | Address | [address] [place] [address] | | | [place] [address] | + + + | Home Phone | | + + + | Preferred Language | Unknown | + + + | Marital Status | Single | + + + | Baptism Affiliation | PEN | + + + | Race | White | + + + | Ethnic Group | Not or | + + + Author + + + | Author | [facility] | + + + | Organization | [facility] | + + + | Address | Unknown | + + + | Phone | Unavailable | + + + Support + + + + + | Name | Relationship | Address | Phone | + + + + + | Aileen Nelson | ECON | [address] | | | | | [place] [address] | | + + + + + Care Team Providers + +------+ + | Care Pavilion Cutter Name | Role | Phone | + [...] | | 2011 - | | Department [address] | | | | | [address] | [place], | | | 03/22/ | | [facility] | [place] [address] | | | 2011 | | [place], [place] | [phone] | | | | | [address] | | | | | | [phone] | Loni Gardner MD | | | | | | [address] | | | | | | [address] [place], [place] | | | | | | [address] | | | | | | | [...] 03/22/2012 Thank you for coming to the [facility] ED. You have been diagnosed [...] doctor if you can take an o gtp-ger-sfbfigb medicine. Rest and protect the sore area. [...] Pain: After Your Visit", log into your Video Recruit a ccount at [email or web address]. You can enter V293 in the Musement Library" search b ox. Not on Video Recruit? Review the BIND Therapeuticshart section of your After Visit Summary for directions on ho w to sign up. [id number] [employer]. Care instructions adapted under license by [facility] & [facility]. This care instruction is for use with your licensed healthcar e professional. If you have questions about a medical condition or this instruction, always ask your healthcare professional. [employer] disclaims any warranty or liabili ty for your use of this information. Content Version: 9.3.48640; Last Revised: 2010 documented in this encounter [...] directed | | | | | | Cerebral | by clinic | | | | | | Thromboembolism | Indications: | | | | | | Prevention | Cerebral | | | | | | | Thromboembolism | | | | | | | Prevention | | | | | + + + +---------+--------+ + documented as of this encounter Progress Notes Magaly Long PA-C - 03/21/2012 4:43 PM PDTICD CHECK NOTE Primary Care Provider: No primary provider on file. Primary Statistical Clerk: [place] cardiology I was paged by ER to see Mr. Sarthak Nelson for ICD check. Sarthak Nelson is a 61 y.o . Male with ICD who came to ED and reports that his ICD fired. No diagnosis found. Generator: Device: [employer] Model #: TELIGEN 100 [id number] Serial #: [id number] Implanted: 12/29/2010 Leads: RV: GUIDANT Implant date: 12/29/2010 ICD PROGRAMMING: Alberto Mode: VVI Lower Rate: 40 bpm TACHY PARAMETERS: VT Detection Rate: 180, Therapy: ATP X3, CV: 5J, 41 JX2. Vf Detection Rate: 210. Therapy: CV: 5J, 41J X8. Patient is not pacer dependent. Today's underline rhythm is sinus 88. PACING PERCENTAGE: SIDE SEAM MACHINE OPERATOR: 0% EPISODES detected today: 0 Last NSVT [...] today. Recommendations: Cardiology consult. Zandra Long PA-C [facility] DEPARTMENT: [phone]- CAR TRANSFORMER SHOP SUPERVISOR EP [facility] Place of Service: [address]61 - ED Date of Service: 03/21/2012 CSN: [id number] Suggested Level of Care: 48371 - Programming device evaluation; single lead implantable [...] BRENDA | [address] | [place], [place] | | | RE[facility] OF CARE | [address] | [address] | | | TESTS | | | [...] | | | | | | | <mb=688....... Negative: | | | | | | [...] CHF. | | | | | | >vn=[phone]....... Highly | | | | | | consistent with CHF. | | | | | | Patients with BNP>cs=679 | | | | | | | [...] | + + + + + | [facility] | [address] | [place] [address] | | | PATHOLOGY | [address] [...] | + + + + + | [facility] DEPARTMENT | [address] | [place] [address] | | | PATHOLOGY | [address] [...] view image for the detailed interpretation from [employer] results. | CARDIOLOGY | + + + + + + + + | Performing | Address | City/State/Zipcode | Phone Number | | Organization | | | | + + + + + | [facility] | [address] | [place], [place] | | | CARDIOLOGY | [address] | [address] | | + + + + + [...] GUTIERREZ | [address] | [place], [place] | | | REBA [facility] OF [facility] | [address] | [address] | | | TESTS | | | [...] | | | | | | Edmond Gilmore, | | | | | | IainAuthor: [...] BASO # | 0.1 | <0.2 | [facility] | | | | | | DEPARTMENT [...] | + + + + + | [facility] DEPARTMENT OF | [address] | [place] [address] | | | PATHOLOGY | [address] [...] | + + + + + | [facility] DEPARTMENT OF | [address] | [place] [address] | | | PATHOLOGY | [address] | | | + + + + + COMPLETE METABOLIC SET (NA,K,CL,CO2,BUN,CREAT,GLUC,CA,AST,ALT,BILI TOTAL,ALK PHOS,ALB,PROT TOTAL) (03/21/2012 4:07 PM PDT) + + + + + + | Component | Value | Ref Range | Performed | Pathologist | | | | | At | Signature | + + + + + + | GLUCOSE, | 126 (H) | 60 - 99 mg/dL | [facility] | | | PLASMA | [...] | | | DEPARTMENT | | | NIGERIEN | | | OF | | | [...] | + + + + + | [facility] | [address] | [place] [address] | | | PATHOLOGY | [address] [...] | + + + + + | [facility] DEPARTMENT | [address] | [place] [address] | | | PATHOLOGY | [address] | | | + + + + + 12 LEAD ECG (03/21/2012 4:04 PM PDT) + + + + + + | Component | Value | Ref Range | Performed | Pathologist | | | | | At | Signature | + + + + + + | VENTRICULAR | 77 | BPM | [facility] DEPT | | | RATE | | [...] | | | | | | JESSI MEZA | | | | | | (0384) on 03/22/2012 | | | | | | 3:31:04 PM | | | | + + + + + + + + | Specimen | + + | | + + + + + | Narrative | Performed At | + + + | Please click | [facility] | | on view image for the detailed interpretation from [employer] results. | CARDIOLOGY | + + + + + + + + | Performing | Address | City/State/Zipcode | Phone Number | | Organization | | | | + + + + + | [facility] | [address] | [place], [place] | | | CARDIOLOGY | [address] | [address] | | + + + + + [...] 1:00 | | | | | 1 dose, 03/22/12 at 0115 | | AM PDT [...] PDT | | | | | Starting Wed03/21/12 at 1916, | | | | | [...]
--- OUTSIDE RECORDS SUMMARY | ~2019-08-11 | XMS | Encounter Summary ---
Demographics + + + | Address | [address] [place] [address] | | | [place] [address] | + + + | Home Phone [...] Author + + + | Author | [facility] | + + + | Organization | [facility] | + + + | Address | Unknown | + + + | Phone | Unavailable | + + + Support + + + + + | Name | Relationship | Address | Phone | + + + + + | Aileen Nelson | ECON | [address] | | | | | [place] [address] | | + + + + + Care Team Providers + +------+ + | Care Contracting Engineer Name | Role | Phone | [...] POINT | | | GLUCOSE, | ID: [id number]: | | OF CARE | | | POC | [id number] Geraldo Wells | | TESTING | | | |Spray Machine Loader: [id number] Geraldo Wells | | | | | [...] POINT | | | GLUCOSE, | ID: [id number]: | | OF CARE | | | POC | [id number] Erik Salazar | | TESTING | | | |Spray Machine Loader: [id number] Erik Salazar | | | | | [...] POINT | | | GLUCOSE, | ID: [id number]: | | OF CARE | | | POC | [id number] Erik Salazar | | TESTING | | | |Spray Machine Loader: [id number] Erik Salazar | | | | | [...] [facility] | | | GLUCOSE, | [id number]: | | OF CARE | | | POC | [id number] Erik Salazar | | TESTING | | | |Spray Machine Loader: [id number] Erik Salazar | | | | | [...]
--- OUTSIDE RECORDS SUMMARY | ~2019-08-11 | XMS | Encounter Summary ---
Demographics + + + | Address | [address] [place] [address] | | | [place] [address] | + + + | Home Phone | | + + + | Preferred Language | Unknown | + + + | Marital Status | Single | + + + | Latter-Day Affiliation | PEN | + + + | Race | White | + + + | Ethnic Group | Not or | + + + Author + + + | Author | [facility] | + + + | Organization | [facility] | + + + | Address | Unknown | + + + | Phone | Unavailable | + + + Support + + + + + | Name | Relationship | Address | Phone | + + + + + | Aileen Nelson | ECON | [address] | | | | | [place] [address] | | + + + + + Care Team Providers + +------+ + | Care Tire Adjuster Name | Role | Phone | + +------+ + | Romain Harrington MD | PCP | | + +------+ + Encounter Details +--------+ + + + + | Date | Type | Department | Care Team | Description | +--------+ + + + + | 05/20/ | Outside | Diagnostic | Zoila Momin, | | | 2011 | Referral | Radiology at [facility] | MD DIONNE Oates | | | | Order | [address] [place] | [facility] [address] | | | | | [place] Mailcode: | [address] | | | | | [address] | [address] [place], | | | | | [place] | [place] [address] | | | | | [place] [address] | [phone] | | | | | [phone] | | | +--------+ + + + [...]
--- OUTSIDE RECORDS SUMMARY | ~2019-08-11 | XMS | Encounter Summary ---
Demographics + + + | Address | [address] [place] [address] | | | [place] [address] | + + + | Home Phone | | + + + | Preferred Language | Unknown | + + + | Marital Status | Single | + + + | Restorationist Affiliation | PEN | + + + | Race | White | + + + | Ethnic Group | Not or | + + + Author + + + | Author | [facility] | + + + | Organization | [facility] | + + + | Address | Unknown | + + + | Phone | Unavailable | + + + Support + + + + + | Name | Relationship | Address | Phone | + + + + + | Aileen Nelson | ECON | [address] | | | | | [place] [address] | | + + + + + Care Team Providers + +------+ + | Care Fabrication Technician Name | Role | Phone | + +------+ + | Romain Harrington MD | PCP | | + +------+ + Encounter Details +--------+ + + + + | Date | Type | Department | Care Team | Description | +--------+ + + + + | 05/04/ | Office | [facility] [address] | Ghanshyam Raymond | Progress Note | | 2015 | Visit-Trans | [address] Facundo Wilkes MD [address] | | | | cribed | [place] | [address] [place] | | | | | [id number] | [phone] | | | | | | [phone] | | | | | | | [...] documented as of this encounter Progress Notes Edmond Estes MD - 05/10/2015 6:00 PM [facility] PROGRESS NOTE [address] [place] [address] SARTHAK NELSON DATE OF SERVICE: 05/10/2015 TIME OF VISIT: 0745 EVENTS OVERNIGHT: None. SUBJECTIVE: Mr. Nelson feels that the pain is a little bit better but very minimally so. He denies any current dysuria. He has had no fevers or chills. OBJECTIVE: VITAL SIGNS: Reviewed. He was noted to be afebrile. VITAL SIGNS: Relatively stable. ABDOMEN: Remains obese and enlarged but nontender, without erythema. : The penis continues to be buried. The scrotal erythema appears the same. The edema is the same with no significant improvement but no worsening. The right testicle remains similarly tender. There was no crepitus or signs of an abscess underlying. The left testicle remains mildly tender and mobile within the hydrocele sac. There was no obvious abscess or drainable lesion. DATA: White blood cell count 9.01. IMPRESSION: 1. Epididymal orchitis, resolving. 2. Scrotal cellulitis unchanged on cefdinir. 3. Bilateral hydroceles. PLAN: Mr. Nelson appears to have no significant worsening overnight. I think if he has improved it has been fairly marginal. Dr. Gray at the time of the dictation has already discharged the patient after discussing things with Infectious Disease. I think this is a very reasonable approach especially given that Mr. Nelson has close followup arranged with Infectious Disease. He will be discharged home on the cefdinir. If he has any acute worsening [facility], he may return here to the ER or to the [facility]. GIANCARLO/Sylvie /[id number] Electronically Signed 05/22/15 1228 MD MANOJ Cantu EDWARD E [id number] : 50 [id number] ADMIT DATE: 05/04/15 DISCHARGE DATE: 05/10/15 Edmond Wood MD - 05/09/2015 9:54 PM [facility] PROGRESS NOTE [address] [place] [address] SARTHAK NELSON HISTORY UPDATE: Mr. Nelson was seen by me over this weekend and by Dr. Funez earlier this week. At that point, he seemed to be improving from his acute right epididymal orchitis and had evidence of bilateral hydroceles at the same time. At that time he had no left testicular pain. Since then, his IV antibiotics have been switched initially to doxycycline and then an oral 3rd generation cephalosporin. He has also been having some increasing scrotal edema and complaining now of pain not just on the right but on the left as well. SUBJECTIVE: Mr. Nelson states both sides of his scrotum hurt. He tries to keep his scrotum elevated, but was unable to do so all the time. He denies any dysuria. OBJECTIVE: T-max 97.8, heart rate in the 50s to 60s, and blood pressures in the 100s to 120 over 60 to 70. Mr. Nelson appears to be in no apparent distress. He is morbidly obese. His abdomen is soft, nondistended. It is nontender. His penis remains buried. His scrotum has especially inferior edema. This is greater than it was previously. There is mild erythema, but did not find the erythema to be all that marked. There was no fluctuance. There was no crepitus. There was no significant skin breakdown. The right testicle has a hydrocele around it and is very mildly tender. This is much improved from previous. The left testicle itself is very mildly tender, which is slightly worse than before. The left hemiscrotum is tender to palpation. Overall his tenderness globally is quite improved from what it was this past weekend, but the scrotal tenderness is worse and there is very mild left tenderness, which could in fact even be referred from the left scrotum. DATA: White blood cell count today is 9.3. Creatinine 1.6. Ultrasound from yesterday reveals normal blood flow in both testicles. There is no evidence of increased vascularity or hypervascularity within the right epididymis, which was noted previously. There was noted scrotal wall thickening. IMPRESSION: Improving right epididymal orchitis with possible secondary cellulitis. I see no evidence of surgical abscess or evidence of a necrotizing infection. At this point, I have discussed the case with Dr. Gray. Given his underlying immune status, Dr. Gray will continue to monitor him today and if tomorrow he is not improved at all, then I have suggested switching him back to his original IV antibiotic and/or adding additional gram-positive coverage. Alternatively, the case could be discussed with his infectious disease specialist, whom Dr. Gray has been in discussion [facility] [place]. I do not see any need for surgical intervention at this point, though. I will reexamine the patient in the morning, but should his condition change significantly, then I should be called if there is concern for need for surgical intervention. I have elected not to perform a needle aspiration of the hydrocele as I do not think this will had any clinical benefit and perhaps could infect a sterile fluid collection. MM/SARTHAK Sánchez [id number] : 50 [id number] ADMIT DATE: 05/04/15 DISCHARGE DATE: /[id number] Electronically Signed 05/10/15 0814 MD MANOJ Cantu EDWARD E [id number] : 50 [id number] ADMIT DATE: 05/04/15 DISCHARGE DATE: Bruno Ramirez MD - 05/09/2015 4:01 PM [facility] PROGRESS NOTE [address] [place] [address] SARTHAK NELSON DATE OF SERVICE: 05/09/2015 ASSESSMENT AND PLAN: 1. Congestive heart failure, unknown type. Clinically compensated. The patient is on metoprolol but not on an MEGAN inhibitor. He already is on hydralazine but not at the recommended dosing for CHF, and he is also on Imdur, but it is isosorbide dinitrate that is recommended for CHF. In addition, it is a bit ambiguous in terms of why he is exactly on the Imdur, especially when there is no noted history of coronary artery disease, and he does not state that he had a history of this. In addition, it is also unclear about the hydralazine, if this is for CHF versus just for hypertension in itself. a. I would have thought the Imdur and the hydralazine were on board because he had an intolerance to MEGAN inhibitors, given his underlying congestive heart failure, however, an MEGAN inhibitor is not listed as one of his allergies. In addition, we will continue the beta ladonna for now along with the doxycycline, and we will defer further management of the hydralazine[facility] while we continue them inhouse. 2. Gout, stable at this time, on allopurinol. 3. Hypokalemia, continued. Patient was taking amiloride, which is a potassium- sparing diuretic, and currently he was inhouse not getting this. He was only getting 2 of the diuretics as noted above, specifically Lasix and chlorthalidone. Hence, while decreasing the Lasix doses as mentioned earlier, we will also add Aldactone 25 mg daily, since we do not have amiloride that I could find in the formulary. This will help his potassium to get closer to within normal limits. ILL/MedQ /[id number] Electronically Signed 05/10/15 0715 MD MANOJ Abbott EDWARD E [id number] : 50 [id number] ADMIT DATE: 05/04/15 DISCHARGE DATE: Bruno Ramirez MD - 05/09/2015 3:54 PM [facility] PROG RESS NOTE [address] [place] [address] SARTHAK NELSON DATE OF SERVICE: 05/09/2015 24-HOUR EVENTS: None. SUBJECTIVE: Scrotum is continuing to hurt. No fevers or chills. Also concern if there is any history of cancer that could be causing a hydrocele versus left kidney cancer which he has read online. Denies any hematuria. He also denies anybody performing oral sex on him. He denies any other high risk sexual activity. His last sexual intercourse, he states, was 3 years ago. He has been masturbating since. EXAMINATION: VITAL SIGNS: Blood pressure is 115/71, pulse of 60, respirations 19, saturating 94% on room air. Temperature 36.6, T-max is 36.7. GENERAL: Morbidly obese, sitting at side of bed, working with his computer. PSYCH: Pleasant affect. Alert. EYES: Extraocular movements intact. Anicteric sclerae. Pupils equal and round. ENMT: No facial erythema. Oral mucosa is moist. No thrush. CARDIOVASCULAR: Regular rate. Unable to further assess definitive heart sound quality because of body habitus. GI: Increased abdominal girth. No gross skin lesions. Unable to assess for bowel sounds given abdominal girth. RESPIRATORY: Speaking full sentences. Nonlabored breathing. However, does get a little short winded from lying to sitting position because it takes a lot of effort for him to do so. Does also use a CPAP while he naps during the daytime. GENITOURINARY: Penis remains buried. Scrotal erythema continues to be present on the entire scrotum. Initially earlier in the week the erythema was isolated only to the right side. Induration is prominent on the right scrotum as it was before/earlier in the week. The left, other than erythema and calor, there is no induration there currently. There is no penile discharge. Unable to assess his testicles because of pain on the scrotum. LABORATORY DATA: 1. CBC: WBC of 9.3, was 8.8 yesterday; platelets 396, were 351 yesterday; rest is unremarkable. 2. Chemistry: Potassium 3, it was 3.2 yesterday; creatinine 1.6, it was 1.9 yesterday, his baseline is 1.9 on review of the records. Rest of chemistry is unremarkable. 3. Imaging: Second scrotal ultrasound was done yesterday with large bilateral hydroceles re-demonstrated with thin septation on the right. Marked scrotal wall thickening and normal vascular flow within both testicles. Resolution of the right epididymal head epididymitis. 4. Coagulation panel: INR is 5, it was 3.5 yesterday. PT is 52. 5. Microbiology: Blood cultures have been negative to date. ASSESSMENT AND PLAN: 1. Right epididymal orchitis as evaluated by urological team in their review of the ultrasound initially. He was improving on ceftriaxone and doxycycline, but it is unclear if doxycycline actually really was working because once the SARTHAK NELSON [id number] : 50 [id number] ADMIT DATE: 05/04/15 DISCHARGE DATE: ceftriaxone was stopped in hopes of discharging him on oral doxycycline, the erythema spread from the right scrotum to his left scrotum as well. Hence, a 3rd generation oral cephalosporin has been initiated in the last 24 hours, specifically cefdinir. However, his erythema still continues. Other than the scrotal erythema, however, there is no further evidence of epididymitis. This is reassuring, but in light of the erythema, we are going to be cautious. At this point in time we will continue the cefdinir at its recommended dosing alongside icing and elevation of the scrotum. a. Patient's urine did grow Escherichia coli at a recent urinalysis, specifically on 04/18/2015 at [facility], and this was of 100,000 colony-forming units. Cefdinir does cover for this. In addition, in speaking with Alaina Malik, the infectious disease lead clinical at the [facility], she stated that this will also cover for any atypical/typical gonorrhea that could be present. However, patient's sexual history has been unremarkable for the last 3 years with no high risk behavior. b. If the oral 3rd generation cephalosporin does not work quite tomorrow, we will consider switching back to ceftriaxone and monitoring. In addition, duration of antibiotics is still undecided at this point in time. However, reviewing Dr. Funez's note, he recommended long-term treatment at least for 3 weeks, but we will reassess this duration once we get better control of the scrotal cellulitis. c. Did speak with Dr. Estes today who examined the patient as well. He does not think any surgical intervention is needed currently. Other than the hydroceles on both sides and the scrotal cellulitis, there is no other impressive pathology for which intervention is needed. If he were to drain the hydroceles, there is risk that they will be seeding of infection from scrotal cellulitis into the fluid, which will potentially complicate the clinical picture further. Hence at this point in time conservative management, and we will re-consult them if need be. In addition, ciprofloxacin was being considered; however, he has had a history of acute interstitial nephritis because of this antibiotic in the [facility]. 2. Hypokalemia. We are struggling to keep this at an adequate level primarily because of the 2 diuretics he is on. He is on 320 mg of Lasix divided in a b.i.d. dosing daily in addition to 25 mg of chlorthalidone. I will decrease the Lasix 320 to just 160 mg once daily dosing and continue the chlorthalidone given he does not seem hypervolemic in an acute fashion. In addition, will continue potassium chloride 40 mEq, which I increased to 20 mEq t.i.d. dosing. I did talk to pharmacist and this is the highest we can go in terms of oral dosing. Will also replete the current potassium of 3 with 2 K riders. 3. Insulin-dependent diabetes mellitus type 2. His sugars have been running on the lower side of normal. Hence, will decrease his Lantus dosing from 50 b.i.d. to 40 b.i.d. along with sliding scale. 4. Chronic atrial fibrillation, rate controlled and on anticoagulation, which currently is supratherapeutic. Coumadin clinic/pharmacist is managing this and has held Coumadin dosing currently. 5. Human immunodeficiency virus with undetectable viral load from speaking with Karin Malik, and the last CD4 count done in February 2015 was 873. She does not suspect that this epididymal orchitis is an opportunistic infection because of these values. Continue on current antiretrovirals, and we will look into each component further at this point. 6. Chronic kidney disease stage 3, holding stable. His [facility], currently at 1.6. Avoid nephrotoxins as much as possible. 7. Obstructive sleep apnea, longstanding and on CPAP. 8. Venostasis dermatitis with hyperpigmentation. No overt ulceration except for one ulcer on the right pretibial region about the size of a dime with minimal SARTHAK NELSON [id number] : 50 [id number] ADMIT DATE: 05/04/15 DISCHARGE DATE: anguinous seepage. Will monitor. 9. Deep venous thrombosis prophylaxis. On warfarin currently. ILL/MedQ /[id number] Electronically Signed 05/10/15 0715 MD MANOJ Abbott EDWARD E [id number] : 50 [id number] ADMIT DATE: 05/04/15 DISCHARGE DATE: Bruno Ramirez MD - 05/08/2015 6:59 PM [facility] PROG RESS NOTE [address] [place] [address] SARTHAK NELSON DATE OF SERVICE: 05/08/2015 24-HOUR EVENTS: None. SUBJECTIVE: The patient states that the scrotum is still swollen, not much change in pain or swelling since yesterday. No fevers or chills. No nausea or vomiting. PHYSICAL EXAMINATION: VITAL SIGNS: Blood pressure 109/60, pulse of 58, respirations 18, saturating 97% on room air. Temperature 36.4. T-max 36.6. GENERAL: Morbidly obese, lying down comfortably with the help of CPAP. He is able to sit up from a lying position without any help, but is slow. PSYCH: Pleasant affect, alert. EYES: Extraocular movements intact. Anicteric sclerae. ENMT: No facial erythema. Oral mucosa is moist. No thrush. CARDIOVASCULAR: Regular rate. Unable to assess for further heart sound quality given body habitus. GI: Increased abdominal girth. No gross lesions on the skin, unable to assess for bowel sounds given abdominal girth. RESPIRATORY: Speaking in full sentences. Nonlabored breathing, but getting into a sitting position from a lying position does get him a little short winded, but it resolves soon after. GENITOURINARY: Penis remains buried. Scrotal erythema has now spread from the right to the left as well. The entire scrotum is erythematous. Induration is present mostly on the right side of the scrotum with erythema as well, mostly isolated on the right currently. The perineal region is dry currently. There is also smears of fecal matter on the bedsheets. LABS: 1. CBC, WBC is 8.8; it was 9.9 yesterday, with neutrophilia 60%. Rest of CBC unremarkable. 2. Chemistry with potassium 3.2, and creatinine 1.7; it was 1.7 yesterday as well. IMAGING: Ultrasound of the scrotum is pending. ASSESSMENT/PLAN: 1. Right-sided epididymal orchitis. He was improving with ceftriaxone and doxycycline; it was unclear which antibiotic was really effective, but the ceftriaxone was discontinued and oral doxycycline has been continued for the last 24 hours, but there is spread of erythema from the right but is all the way to the left as well now. Hence, we will continue a 3rd generation ceftriaxone, specifically, cefdinir. This will cover for E coli that was isolated on 04/18/2015 [facility] from a urine culture growing more than 100,000 colony-forming units. In addition, speaking to Alaina Malik, who is the [facility] lead clinical there, since the patient's infectious disease specialist, Dr. Cait Peres, is on vacation, stated to also cover for gonorrhea that could be circulating in the community. Even though I stated the patient has not had SARTHAK NELSON [id number] : 50 [id number] ADMIT DATE: 05/04/15 DISCHARGE DATE: sexual intercourse for the last 3 years. Given that patient has failed doxycycline, it is reasonable to restart him on a 3rd generation cephalosporin, specifically the ceftriaxone, and I am comfortable with the fact that we can continue this 3rd generation cephalosporin, and an oral format in the form of cefdinir. We will continue to monitor him with low thresholds for broadening antibiotic spectrum if he continues to decline. In addition, we will also get a repeat ultrasound for interval changes, and if there are we can reconsult urology for further assessment. a. Per urology recommendations, duration to be for at least 3 weeks. We cannot use fluoroquinolone, which could have, and would have been the easiest option, but he has had history of acute interstitial nephritis with the quinolones. 2. Chronic atrial fibrillation, rate controlled and on anticoagulation with Coumadin. 3. Human immunodeficiency virus with undetectable viral load on speaking with Alaina Malik, the last CD4 count back in February of 2015 was 873, and she does not suspect that the scrotal epididymal orchitis is an opportunistic infection. 4. Insulin-dependent diabetes mellitus type 2 on Lantus and on sliding scale. 5. Hypokalemia, likely because of the Lasix he gets chronically at a high dose. Will increase his potassium from 20 mEq q.a.c. to 40 mEq q.a.c. 6. Obstructive sleep apnea, stable on CPAP. 7. Chronic kidney disease stage 3. Baseline creatinine is 1.9 as per [facility]. Currently his creatinine is 1.7, we will continue to monitor avoiding further nephrotoxins. 8. Venostasis dermatitis with hyperpigmentation. There are no overt ulcerations present (correction from last progress note where I did mention ulceration, but there is no ulceration) that are gross. There is also concomitant pitting edema and Lasix is being administered 160 mg along with potassium supplementation. DISPOSITION: 1. Follow up on ultrasound of the scrotum and evaluate on oral 3rd generation cephalosporin and reassess in the morning. 2. Spoke with Alaina Malik today, the infectious disease clinician at the [facility] (phone number is [phone]). Prior to this, also tried calling Jennifer, another HIV fraud representative at the [facility], at [phone], and left a message. 3. Also called Martin Stokes, of infectious diseases at [facility], at [phone]. The conversation initially was started with Martin Stokes, who then contacted the [facility], specifically, Alaina Malik, who in turn contacted me. ILL/MedQ /[id number] Electronically Signed 05/09/15 0700 MD MANOJ Abbott EDWARD E [id number] : 50 [id number] ADMIT DATE: 05/04/15 DISCHARGE DATE: Bruno Ramirez MD - 05/07/2015 4:09 PM [facility] PROG RESS NOTE [address] [place] [address] SARTHAK NELSON DATE OF SERVICE: 05/07/2015 24-HOUR EVENTS: None. SUBJECTIVE: No current complaints except for the swelling still continues and there is pain on the right scrotum but overall he is feeling better. No subjective fevers or chills. PHYSICAL EXAMINATION: VITAL SIGNS: Blood pressure 130/78, pulse 65, respirations 18, saturating 97% on room air, temperature 36.6, T-max 36.9. GENERAL: Morbidly obese, sitting at edge of bed comfortably. PSYCH: Pleasant affect, alert. EYES: Extraocular movements intact. Anicteric sclerae. ENMT: No facial erythema. Oral mucosa is moist. CARDIOVASCULAR: Regular rate, unable to assess heart sounds because of body habitus. GI: Increased girth. No gross lesions on the skin. Unable to assess bowel sounds because of increased girth. RESPIRATIONS: Speaking in full sentences. Nonlabored breathing. GENITOURINARY: Penis remains buried. Scrotal erythema is mild on the right scrotum, not present on the left. There is induration with tenderness on the right scrotum. The left scrotum is enlarged. The perineal region is dry. Erythema and density on the right scrotum is mild and similar to what it was yesterday. NEUROLOGICAL: No focal deficits. LABORATORY: 1. CBC unremarkable. 2. Chemistry with potassium 3, bicarbonate 28. Creatinine 1.7, was 1.6 yesterday. Glucose 162. The rest of the basic metabolic panel negative. 3. INR is 2.8. ASSESSMENT AND PLAN: 1. Right-sided epididymal orchitis. Improving with ceftriaxone and doxycycline. There is no evidence of sepsis and he states overall he feels better. Due to his multiple medication allergies to antibiotics, he is currently on this regimen. Recommended dose for epididymitis is one dose of ceftriaxone followed by doxycycline for 10 days at 100 mg b.i.d. Ceftriaxone will be stopped today and he will be monitored clinically on doxycycline by itself, which he is at the right dosing. The patient was on doxycycline prior to hospitalization. He states he started taking them on 04/30/2015, and he has the prescription bottle to prove it; however, he was only taking it one tablet once a day until symptoms progressed to where he presented to the ED on the and was admitted towards the of this month. Hence, it is reasonable at this time to continue oral doxycycline at the therapeutic dosing of 100 mg b.i.d. I did review urological note stating the duration which would be for at least 3 weeks. The important thing here is to make sure that he responds well to doxycycline by itself before discharging. If not, then we will SARTHAK NELSON [id number] : 50 [id number] ADMIT DATE: 05/04/15 DISCHARGE DATE: consider getting hold of Infectious Disease that he follows for his HIV for further delineation and streamlining. Continue pain control in the meanwhile. 2. Chronic atrial fibrillation. Rate controlled and on anticoagulation. INR is therapeutic. 3. Human immunodeficiency virus with undetectable viral load. On retroviral therapy. 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 4. Insulin-dependent diabetes type 2. On Lantus, and is being titrated accordingly. 5. Obstructive sleep apnea. Uses CPAP from home. 6. Chronic kidney disease stage 3. His baseline GFR is around 45 and currently he is not far from it at 43. Baseline Cr around 1.9 - [facility] 7. Venostasis ulceration with hyperpigmentation. He does get Lasix at 160 mg b.i.d. along with potassium supplementation. 8. Hypokalemia. Asymptomatic. We will replete. 9. Deep venous thrombosis prophylaxis. On enoxaparin. 10.Disposition. Monitor for another 24 hours with oral antibiotic before considering discharge. ILL/MedQ /[id number] Electronically Signed 05/08/15 1058 MD MANOJ Abbott EDWARD E [id number] : 50 [id number] ADMIT DATE: 05/04/15 DISCHARGE DATE: Bruno Ramirez MD - 05/07/2015 3:21 PM [facility] PROG RESS NOTE [address] [place] [address] NELSONSARTHAK TEMLPE CONTINUATION: Chronic kidney disease stage III. Baseline creatinine is 1.9. This is from review of [place] records. ILL/MedQ /[id number] Electronically Signed 05/08/15 1058 Bruno Gray MD SARTHAK NELSON [id number] : 50 [id number] ADMIT DATE: 05/04/15 DISCHARGE DATE: Abad Barraza MD - 05/07/2015 1:44 PM [facility] PROGRESS NOTE [address] [place] [address] NELSONCHERYLLUIS Morales CURRENT PROBLEM: Right epididymitis. HISTORY OF PROBLEM: Mr. Nelson is reportedly improving on parenteral antibiotics. He reports that his pain has declined and that there has been equivocal improvement in the swelling. OBJECTIVE: Very large adult male examined in a left lateral decubitus position. Abdomen protuberant, soft and nontender. No discoloration. Genitalia: The penis is completely concealed by infrapubic adipose tissue. The scrotum is prominent with bilateral transluminal masses consistent with hydrocele. The right hemiscrotum is slightly tender on deep palpation. The epididymis and testis cannot be differentiated from one another and the overall gonadal complex is swollen to about twice anticipated size. There is induration without fluctuance. There is no significant overlying skin discoloration. No crepitus. LABORATORY DATA: CBC: White blood cell count 8800 without left shift. ASSESSMENT: 1. Right epididymitis, clinically responding to antibiotic treatment. There appears to be little likelihood of progression to abscess or need for surgical exploration or drainage. 2. Bilateral hydroceles. PLAN: 1. Continue antibiotic management per hospitalist. 2. Patient may be discharged on oral antibiotics when medically clear. At that time, I would recommend use of long-term fluoroquinolone coverage (at least 3 weeks). 3. Patient may be followed as an as an outpatient, either in [facility] or at the [facility]rology Department-where he is an established patient. We will follow him on a p.r.n. basis during the remainder his hospitalization. GAG/MedQ /[id number] Electronically Signed 05/23/15 0728 MD MANOJ Gomez EDWARD E [id number] : 50 [id number] ADMIT DATE: 05/04/15 DISCHARGE DATE: 05/10/15 Bruno Ramirez MD - 05/06/2015 11:19 AM [facility] PROGRESS NOTE [address] [place] [address] SARTHAK NELSON DATE OF SERVICE: 05/06/2015 24-HOUR EVENTS: None. SUBJECTIVE: Feels overall a little bit better than yesterday. Specifically, he is unable to delineate, as he rates his pain 6/10 yesterday and 6/10 today, as well. In addition, he states there is dysuria which again on further questioning, he is unclear if it was since yesterday versus for months. He is not confused, he is able to have a proper conversation. PHYSICAL EXAMINATION: VITAL SIGNS: Blood pressure 122/65, pulse of 64, respirations 18, saturating 96% on room air, temperature 36.9 T-max 36.9. GENERAL: No acute distress. Walking around with a front-wheeled walker comfortably. PSYCH: Alert. Normal affect. EYES: Extraocular movements intact. Anicteric sclerae. Pupils equal and round. ENMT: No facial erythema. Oral mucosa no thrush, moist oral mucosa. CARDIOVASCULAR: Regular rate; however, unable to assess for heart sounds, given body habitus. He is morbidly obese. RESPIRATORY: Unable to hear lung sounds bilaterally either, but nonlabored and speaking full sentences. GI: Increased abdominal girth. Unable to assess for bowel sounds. No gross abnormality in the abdominal wall. : Penis remains buried, scrotal erythema is mild on the right, not present on the left scrotum. There is induration with tenderness on the right scrotum. Left scrotum remains enlarged. The area is dry. NEUROLOGICAL: No focal deficits. LABORATORY DATA: CBC: No new CBC. Chemistry: No new chemistry. ASSESSMENT/PLAN: 1. Right-sided epididymal orchitis, improving with ceftriaxone and azithromycin. No evidence of sepsis, and he states overall he feels better. He has had multiple medication allergies, specific to antibiotics; hence, this is the current antibiotic regimen. Moving ahead, if he continues to improve on discharge, oral doxycycline will be continued and duration is to be decided, but it will depend on his clinical response which has been good, so far. 2. Chronic atrial fibrillation, rate controlled on anticoagulation. 3. History HIV with undetectable viral load on retroviral therapy. 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 4. Type 2 insulin-dependent diabetes on Lantus b.i.d. and we will titrate accordingly. 5. Prophylaxis with enoxaparin. 6. Disposition: Monitor for another day and reassess in the morning before considering discharge. ILL/MedQ SARTHAK NELSON [id number] : 50 [id number] ADMIT DATE: 05/04/15 DISCHARGE DATE: /[id number] Electronically Signed 05/07/15 0700 MD MANOJ Abbott EDWARD E [id number] : 50 [id number] ADMIT DATE: 05/04/15 [facility]05[facility]2015 9:07 PM [facility] PROGRESS NOTE [address] [place] [address] SARTHAK NELSON DATE OF SERVICE: 05/05/2015 BRIEF HISTORY: A 64-year-old gentleman with multiple comorbidities who is followed through the [place] [facility]. He has HIV and reports undetectable viral load, chronic kidney disease stage III, type 2 diabetes, heart failure, chronic atrial fibrillation, obstructive sleep apnea and morbid obesity, with history of CVA. He was admitted with right-sided epididymitis. SUBJECTIVE: He reports right-sided scrotal pain is somewhat improved but it is difficult for him to sit up and so he has been lying in bed and sleeping most of the time. He is able to urinate. OBJECTIVE: VITAL SIGNS: Afebrile, pulse 70, respirations 16, blood pressure 146/82, pulse ox 97% on room air. GENERAL: Asleep, morbidly obese gentleman, using his CPAP machine. He is easily awoken, appears chronically ill but in no acute distress. CARDIOVASCULAR: Distant heart sounds. No appreciable murmur. LUNGS: Very distant, symmetric. No wheezing or rales. ABDOMEN: Severely obese. Soft and nontender. : Scrotal edema is improved and there are visible rugae. Still quite tender, with erythema of the right hemiscrotum and tenderness of the testicle and epididymis. The left hemiscrotum is enlarged but nontender. EXTREMITIES: Chronic stasis changes in the lower extremities, but without edema. LABORATORY DATA: White count down to 9.9, platelets 351. INR is 1.4. Blood sugars in the 190s. ASSESSMENT AND PLAN: A 64-year-old gentleman with: 1. Right-sided epididymo-orchitis: Improving on ceftriaxone and doxycycline. He has multiple medication allergies and due to his human immunodeficiency virus status there is concern for immunosuppression. Continue ceftriaxone here in the hospital, but will plan on discharging home on doxycycline, and may go home as early as tomorrow. 2. Type 2 diabetes: Modest control on Lantus 50 units twice daily. 3. Chronic atrial fibrillation, rate controlled. 4. Anticoagulation: Subtherapeutic. He has been given 7.5 mg of warfarin the last 2 days (above usual warfarin dose of 5 mg 4 days per week and 2.5 mg 3 days per week). Will need to be discharged on higher dose. 5. Human immunodeficiency virus, with reported undetectable viral load: He is on chronic suppressive therapy. 6. Prophylaxis: He is on enoxaparin. 7. Disposition: Likely home tomorrow. DC/MedQ SARTHAK NELSON [id number] : 50 [id number] ADMIT DATE: 05/04/15 DISCHARGE DATE: /[id number] Electronically Signed 05/06/15 1037 MD MANOJ Vu EDWARD E [id number] : 50 [id number] ADMIT DATE: 05/04/15 DISCHARGE DATE: [facility] Edmond franco MD - 05/05/2015 1:12 PM [facility] PROGRESS NOTE [address] [place] [address] SARTHAK NELSON DATE OF SERVICE: 05/05/2015 EVENTS OVERNIGHT: None. SUBJECTIVE: Mr. Nelson states he is having less pain. Overall, he is feeling a little bit better. OBJECTIVE: VITAL SIGNS: T-max 97.9, heart rate 60s-70s, blood pressure 100s-120s/60s-70s. He is saturating 95% on room air. Weight was able to be obtained, and he was 187.9 kg. Urine output was 1400. GENERAL: He is in no apparent distress, with his BiPAP on, sleeping. ABDOMEN: Obese and protuberant. It is nondistended and nontender. : His penis remained somewhat buried. The scrotal erythema is improved and there is some slight decrease in the amount of swelling. The right testicle is slightly softer and much less tender to touch, although it does remain a little bit tender. There is no crepitus. The left hemiscrotum remains enlarged with a soft hydrocele. There is no tenderness or erythema on the left side, and left testicle is nontender. LABS: CBC reveals an improved white blood cell count down to 9.9. Sugar this morning is 204. Creatinine remains 1.6. IMPRESSION: Hospital day #2 for epididymal orchitis. PLAN: I would recommend continuing antibiotics, although he can be changed to oral antibiotics fairly soon, as he does not appear improved. I see no evidence of clinical ongoing torsion with improved pain, and no pain on the left side. I will discuss the case with Dr. Raymond, who is his admitting physician, but I see no need for surgical intervention today. If patient's condition does worsen, then Urology can be contacted to re-consult. MM/MedLoulou /[id number] Electronically Signed 05/10/15 0813 MD MANOJ Cantu EDWARD E [id number] : 50 [id number] ADMIT DATE: 05/04/15 DISCHARGE DATE: [facility] Edmond gray MD - 05/05/2015 10:45 AM [facility] CONSULTATI ON [address] [place] [address] SARTHAK NELSON DATE OF CONSULTATION: 05/04/2015 REQUESTING PHYSICIAN(S): Kym Valdez M.D. TREATING PHYSICIAN: Ghanshyam Raymond MD PRIMARY CARE PROVIDER: Romain Harrington M.D. REASON FOR CONSULTATION: Epididymal orchitis and cellulitis. HISTORY OF PRESENT ILLNESS: I obtained a history from the patient, as well as from Dr. Valdez's H and P. Ed gave a history that about a week ago he began having swelling and pain in his right testicle. He was not feeling well, and really only just sat in a chair essentially for the last week. The pain was worsening last night, to the point that he came into the emergency room. Per Dr. Valdez's H and P, though, he apparently was diagnosed with an E coli UTI, per patient's history to her, and was given doxycycline, which she only started this past Wednesday. He has had some improvement in urinary symptoms and hematuria; however, the right scrotal swelling and pain have worsened. Ed states that he did have epididymal orchitis on the left side years ago. He could not recall for sure which date, but it sounds as if it was in around 2009. He has had left-sided hydrocele, which has been present for at least a couple of years, and not irritating him. Today he denies any left testicular pain or left hemiscrotal pain. He does have significant right-sided testicular and scrotal pain. He currently denies any dysuria or gross hematuria. He is voiding more frequently than in the past, and lower volumes. Historically, he thinks he typically can void and over-fill a urinal. PAST MEDICAL HISTORY: Quite complex and is reviewed well and Dr. Valdez's H and P. Please see her H and P for full details, along with his full outpatient medication and allergy list. SOCIAL HISTORY: Does not smoke any longer, and has not done so for 30 years. He only rarely drinks alcohol, and does no illicit drugs. PHYSICAL EXAMINATION: VITAL SIGNS: Since arrival on the floor, temperature 97.9 is his max temp on the floor; heart rate 70s; blood pressure 100-120s/60s-80s, respiratory rate 16, with a pulse oximetry of 96% on room air. GENERAL: He is in no apparent distress. Sleeping when I entered the room. He has a CPAP on. He is morbidly obese. ABDOMEN: Soft, but very protuberant. He has umbilical hernia. His abdomen is nontender and nondistended. : The penis itself is somewhat buried. The scrotum is enlarged bilaterally, and SARTHAK NELSON [id number] : 50 [id number] ADMIT DATE: 05/04/15 on the left side a soft hydrocele is present. The left testicle is palpable and is nontender. The left epididymis was nontender. The right hemiscrotum is enlarged. Overall, it is firm. There is erythema of the scrotal skin. The right testicle and epididymis are globally firm and tender. There is no crepitus. There is no tenderness up into the right or left inguinal canal. Labs in the ER revealed a white blood cell count of 14.5, and today it is improved to 11.8. Creatinine is 1.6. A UA done in the ER was completely negative. A scrotal ultrasound was done. [facility] did read the ultrasound report and felt that it was consistent with right epididymitis. I have spoken with Dr. Hernández, who is the reading physician today, who notes some evidence of right epididymitis. Additionally, he notes that in the left testicle there is abnormal flow with reduced waveform. He felt that this is probably consistent with a partial torsion. The formal report is not available yet. There are bilateral hydroceles noted. IMPRESSION: 1. Right epididymal orchitis. 2. Bilateral hydroceles. 3. Possible partial left testicular torsion. PLAN: I have reviewed the history, as well as the clinical picture and diagnostic imaging. Ed has no evidence on clinical exam of left testicular pain or tenderness. While the ultrasound has suggestion of a partial torsion, he has no clinical evidence of this, and no pain. This is perhaps secondary to his prior epididymal orchitis, or it could be also secondary to imaging limitations given his morbid obesity and the bilateral hydroceles; nevertheless, he does have clinical findings, as well as some ultrasound findings and laboratory findings of acute right epididymal orchitis. I did not find any evidence currently of an abscess, although subsequent development with antibiotics could lead to coalescence of a phlegmon into an abscess. Given his potential immunodeficiency state, I think that aggressive antibiotics and close monitoring of this is warranted. I have gone ahead and written for a diet and communicated this with Dr. Raymond, as I do not anticipate any acute surgical intervention at this point; however this may need to be done in the future. I appreciate the opportunity to participate in the care of this patient. Urology will follow. GIANCARLO/MedLoulou /[id number] Electronically Signed 05/10/15 0813 MD MANOJ CantuSARTHAK [id number] : 50 [id number] ADMIT DATE: 05/04/15 Ghanshyam Kelly MD - 05/04/2015 6:48 PM [facility] PROGRESS NOTE [address] [place] [address] NELSON,SARTHAK Morales BRIEF HISTORY: A 64-year-old gentleman with multiple comorbidities admitted with right-sided epididymitis. SUBJECTIVE: He reports persistent pain and swelling of the scrotum. He is eating okay, breathing is fine. Dr. Estes evaluated him earlier today. OBJECTIVE: VITAL SIGNS: Afebrile, pulse 70, respirations 16, blood pressure 108/65, pulse oximetry 96% on room air. GENERAL: Awake, alert, morbidly obese gentleman, appears chronically ill, but in no acute distress. CARDIOVASCULAR: Heart sounds are quite distant. Regular. No appreciable murmur. LUNGS: Very distant breath sounds, symmetric air movement. No wheezes or rales. ABDOMEN: Extremely expansive, soft, nontender, normal bowel sounds. Limited exam. GENITOURINARY: Unable to locate the penis, buried within surrounding tissue. The scrotum is enlarged to the size of a small cantaloupe. Moderately erythematous and quite tender. Epididymis is tender on the right. EXTREMITIES: Trace lower extremity edema with stasis changes bilaterally. No calf tenderness. LABORATORY DATA: 1. White count down to 11.8, hemoglobin 12.6, platelets 353. 2. INR 1.3. 3. Fingerstick blood sugars 401, 224, 225 and 203. ASSESSMENT/PLAN: A 64-year-old gentleman with: 1. Right-sided epididymitis: Leukocytosis is slightly improved. Continue with oral doxycycline and IV ceftriaxone. We will increase dosing to 2 g IV every 24 hours. 2. Type 2 diabetes: Lantus increased back to 50 units twice daily. Increase sliding scale to high dose. 3. Atrial fibrillation with anticoagulation: Subtherapeutic. He is given 7.5 mg of warfarin today. Recheck INR tomorrow. Likely will need additional increased dose. 4. Obstructive sleep apnea. Using his own CPAP machine. 5. History of congestive heart failure. Appears euvolemic. 6. Chronic human immunodeficiency virus: He reports a viral load that is undetectable. He does not have his current medication regimen with him but has his previous regimen (nearly the same) and will use that including:. a. Atazanavir 200 mg 2 caps daily. b. Lamivudine 300 mg daily. c. Abacavir 300 mg 2 tabs daily. 7. Prophylaxis. Will initiate enoxaparin as he is subtherapeutic on his warfarin. 8. Disposition: Continue inpatient care. SARTHAK NELSON [id number] : 50 [id number] ADMIT DATE: 05/04/15 DISCHARGE DATE: Damián /[id number] Electronically Signed 05/06/15 1036 MD MANOJ Vu EDWARD E [id number] : 50 [id number] ADMIT DATE: 05/04/15 [facility] Plan of Treatment Not on filedocumented as of this encounter Visit Diagnoses Not on filedocumented in this encounter"
--- OUTSIDE RECORDS SUMMARY | ~2019-08-11 | XMS | Clinical Summary ---
Demographics + + + | Address | [address] | | | [place] [address] | + + + | Home Phone | | + + + | Preferred Language | Unknown | + + + | Marital Status | | + + + | Mormon Affiliation | 1038 | + + + | Race | Unknown | + + + | Ethnic Group | Unknown | + + + Author + + + | Author | [facility] | | | and [place] | + + + | Organization | [facility] | | | and [place] | + + + | Address | Unknown | + + + | Phone | Unavailable | + + + Support + + + + + | Name | Relationship | Address | Phone | + + + + + | Aileen Nelson | ECON | [address] | | | | | [place] | | | | | [address] | | + + + + + Care Team Providers + +------+ + | Care Agronomy Advisor Name | Role | Phone | + +------+ + | Jericho Cao MD | PCP | | + +------+ + Allergies + + + + + + | Active Allergy | Reactions | Severity | Noted | Comments | | | | | Date | | + + + + + + | Amoxicillin | | High | 12/30/20 | Augmentin- throat | | | | | 17 | swelling | + + + + + + | Bee Venom | Rash | Low | 10/17/19 | | | | | | 10 | | + + + + + + | Cefazolin | Itching, Hives | | 09/18/20 | | | | | | 17 | | + + + + + + | Cephalexin | Itching | | 07/15/20 | | | | | | 10 | | + + + + + + | Ciprofloxacin | | Medium | 03/08/20 | Other reaction(s): | | | | | 12 | ACUTE INTERSTITIAL | | | | | | NEPHRITIS | + + + + + + | Niacin | | | 10/27/19 | Other reaction(s): | | | | | 11 | FLUSHING | + + + + + + | Simvastatin | Rash, Itching | Medium | 03/29/20 | | | | | | 12 | | + + + + + + | Sulfa Antibiotics | | Medium | 09/18/20 | | | | | | 17 | | + + + + + + | Sulfamethoxazole-Tri | Itching | | 12/03/19 | Acute interstitial | | methoprim | | | 06 | nephritis | + + + + + + | Adhesive & Tape | | Low | 06/19/20 | | | | | | 18 | | + + + + + + | Chlorhexidine | Itching | Medium | 06/26/20 | Other reaction(s): | | | | | 07 | VESICLES IN SKIN | + + + + + + | Tigecycline | Itching, Hives | Medium | 09/19/20 | | | | | | 17 | | + + + + + + | Triamcinolone | Rash | Low | 01/05/20 | | | | | | 06 | | + + + + + + | Vancomycin | Itching | Low | 12/30/19 | | | | | | 11 | | + + + + + + Medications + + + +---------+------+------+-------+ | Medication | Sig | Dispensed | Refills | Star | End | Statu | | | | | | t | Date | s | | | | | | Date | | | + + + +---------+------+------+-------+ | allopurinol | Take 100 mg by mouth | | 0 | | | Activ | | (ZYLOPRIM) 100 mg | Daily. | | | | | e | | tablet | | | | | | | + + + +---------+------+------+-------+ | gabapentin | Take 300 mg by mouth | | 0 | | | Activ | | (NEURONTIN) 600 MG | 2 times daily. | | | | | e | | tablet | | | | | | | + + + +---------+------+------+-------+ | Saw [place] 450 | Take 900 mg by mouth | | 0 | | | Activ | | MG CAPS | 2 times daily. | | | | | e | + + + +---------+------+------+-------+ | | Take 1 tablet by | | 0 | | | Activ | | abacavir-dolutegravi | mouth Daily. | | | | | e | | r-lamiVUDine | Indications: HIV | | | | | | | (TRIUMEQ) 600-50-300 | Disease | | | | | | | mg per | | | | | | | | tabletIndications: | | | | | | | | Human | | | | | | | | Immunodeficiency | | | | | | | | Virus Disease | | | | | | | + + + +---------+------+------+-------+ | apixaban (ELIQUIS) | Take 1 tablet by | 60 | 1 | 10/1 | | Activ | | 5 mg tablet | mouth every 12 | tablet | | 2/20 | | e | | | hours. | | | 18 | | | + + + +---------+------+------+-------+ | atorvaSTATin | Take 1 tablet by | 30 | 1 | 10/1 | | Activ | | (LIPITOR) 80 MG | mouth Daily. | tablet | | 3/20 | | e | | tablet | | | | 18 | | | + + + +---------+------+------+-------+ | bacitracin 500 | Apply to the open | 1 | 1 | 10/1 | | Activ | | UNIT/GM ointment | sore on the lateral | Applicati | | 2/20 | | e | | | right calf | on | | 18 | | | + + + +---------+------+------+-------+ | diphenhydrAMINE | Take 1 capsule by | 30 | 1 | 10/1 | | Activ | | (BENADRYL) 50 mg | mouth daily (after | capsule | | 2/20 | | e | | capsule | dinner). | | | 18 | | | + + + +---------+------+------+-------+ | insulin lispro | Inject 0-6 Units | 2 pen | 1 | 10/1 | | Activ | | (HUMALOG KWIKPEN) | under the skin 4 | | | 2/20 | | e | | 100 units/mL | times daily (with | | | 18 | | | | injection (pen) | meals and nightly). | | | | | | + + + +---------+------+------+-------+ | insulin lispro | Inject 15 Units | 3 pen | 1 | 10/1 | | Activ | | (HUMALOG KWIKPEN) | under the skin 3 | | | 2/20 | | e | | 100 units/mL | times daily (with | | | 18 | | | | injection (pen) | meals). | | | | | | + + + +---------+------+------+-------+ | metoprolol | Take 1 tablet by | 60 | 1 | 10/1 | | Activ | | tartrate (LOPRESSOR) | mouth 2 times daily. | tablet | | 2/20 | | e | | 25 mg tablet | | | | 18 | | | + + + +---------+------+------+-------+ | mirtazapine | Take 2 tablets by | 30 | 1 | 10/1 | | Activ | | (REMERON) 7.5 MG | mouth daily (after | tablet | | 2/20 | | e | | tablet | dinner). | | | 18 | | | + + + +---------+------+------+-------+ | finasteride | Take 1 tablet by | 30 | 1 | 10/1 | | Activ | | (PROSCAR) 5 mg | mouth Daily. | tablet | | 3/20 | | e | | tablet | | | | 18 | | | + + + +---------+------+------+-------+ | | Take 1 tablet by | 50 | 0 | 10/1 | | Activ | | HYDROcodone-acetamin | mouth every 6 hours | tablet | | 2/20 | | e | | ophen (NORCO) 5-325 | as needed for Pain. | | | 18 | | | | mg per tablet | | | | | | | + + + +---------+------+------+-------+ | isosorbide | Take 1 tablet by | 30 | 1 | 10/1 | | Activ | | mononitrate (IMDUR) | mouth Daily. | tablet | | 3/20 | | e | | 30 mg ER tablet | | | | 18 | | | + + + +---------+------+------+-------+ Active Problems + + + | Problem | Noted Date | + + + | Acute left hemiparesis | 06/24/2018 | + + + | Dysphagia due to recent cerebral infarction | 06/24/2018 | + + + | Neurogenic bladder | 06/24/2018 | + + + | Morbid obesity | 06/24/2018 | + + + | Diabetic peripheral neuropathy | 06/24/2018 | + + + | RACHELLE treated with BiPAP | 06/24/2018 | + + + | Mild cognitive impairment | 06/24/2018 | + + + | Ischemic cerebrovascular accident (CVA) | 06/19/2018 | + + + | IDDM (insulin dependent diabetes mellitus) | 06/19/2018 | + + + | HTN (hypertension) | 06/19/2018 | + + + | CKD (chronic kidney disease) | 06/19/2018 | + + + | HIV (human immunodeficiency virus infection) | 06/19/2018 | + + + Immunizations + + + + | Name | Administration Dates | Next Due | + + + + | HEP B, 3 DOSE | 07/25/2014, 11/22/2013, 11/30/2012 | | | (ADULT) | | | + + + + | INFLUENZA 65 Y OR >, | 06/07/2017 | | | TRIVALENT HIGH-DOSE | | | + + + + | INFLUENZA PF | 06/30/2018 | | | QUAD(PED/ADOL/ADULT) | | | | ,PSKT or VIAL | | | + + + + | INFLUENZA PF | 09/02/2015, 07/30/2015 | | | TRIVALENT(PED/ADOL/A | | | | JUAN CARLOS)YOLANDA | | | + + + + | INFLUENZA, [id number], | 10/03/2009, 08/16/2009 | | | UNSPECIFIED | | | + + + + | INFLUENZA, | 07/25/2014, 08/02/2013, 06/06/2012, | | | UNSPECIFIED | 08/05/2011, 06/28/2010, 05/27/2009, | | | FORMULATION | 07/11/2008, 07/11/2007, 08/03/2006, | | | | 08/21/2005, 08/29/2002 | | + + + + | Influenza, Whole | 06/25/2003, 08/29/2002, 07/12/2001 | | + + + + | PNEUMOCOCCAL | 07/30/2015, 04/05/2013 | | | CONJUGATE 13-VALENT | | | | (PCV13) | | | + + + + | PNEUMOCOCCAL | 08/02/2013, 05/11/2005 | | | POLYSACCHARIDE | | | | 23-VALENT (PPSV23) | | | + + + + | PNEUMOCOCCAL, | 08/02/2013, 05/11/2005, 04/12/2001 | | | UNSPECIFIED | | | | FORMULATION | | | + + + + | TDAP, (ADOL/ADULT) | 08/05/2011, 04/12/2001 | | + + + + | TETANUS TOXOID | 04/12/2001 | | | ABSORBED, | | | | (ADOL/ADULT) | | | + + + + | ZOSTER, 1 DOSE | 08/05/2011 | | | (ZOSTAVAX) | | | + + + + Social History + [...] recent travel history available. | + + Last Filed Vital Signs + + + [...] | | + + + + + Plan of Treatment + + + + + | Health Maintenance | Due Date | Last Done | Comments | + + + + + | Hepatitis C | | | | | Screening | 1 | | | + + + + + | Diabetic Eye Exam | | | | | | 9 | | | + + + + + | Diabetic Foot Exam | | | | | | 9 | | | + + + + + | Colorectal Cancer | | | | | Screening | 1 | | | | (Colonoscopy) | | | | + + + + + | Vaccine: Zoster (2 | | 08/05/2011 | | | of 3) | 2 | | | + + + + + | AAA Screening | | | | | | 6 | | | + + + + + | Adult Annual | | | | | Wellness Visit | 8 | | | + + + + + | Microalbumin | | | | | Screening | 8 | | | + + + + + | Vaccine: | | 07/30/2015, 08/02/2013, | | | Pneumococcal 65+ (2 | 8 | 08/02/2013, Additional history | | | of 2 - PPSV23) | | exists | | + + + + + | Hemoglobin A1c | | 06/20/2018 | | | Screening | 9 | | | + + + + + | Vaccine: Influenza | | 06/30/2018, 06/07/2017, | | | (#1) | 9 | 09/02/2015, Additional history | | | | | exists | | + + + + + | Vaccine: | | 08/05/2011, 04/12/2001, | | | Dtap/Tdap/Td (3 - | 1 | 04/12/2001 | | | Td) | | | | + + + + + Results Not on filefrom Last 3 Months Insurance + +--------+ +--------+ +---------+--------+ | Payer | Benefi | Subscriber | Effect | Phone | Address | Type | | | t Plan | ID | natalie | | | | | | / | | Dates | | | | | | Group | | | | | | + +--------+ +--------+ +---------+--------+ | [employer]MIN | VETER[employer] | [id number] | 05/21/20 | | | Indemn | | | NS | | 18-Pre | | | ity | | | ADMIN | | sent | | | | | | [place] | | | | | | | | [place] | | | | | | + +--------+ +--------+ +---------+--------+ | MEDICARE | MEDICA | [id number] | 09/20/18 | [phone] | | Medica | | | RE | | 97-Pre | 5 | | re | | | PART A | | sent | | | | + +--------+ +--------+ +---------+--------+ + +--------+ +--------+ + + | Guarantor Name | Accoun | Relation to | Date | Phone | Billing Address | | | t Type | Patient | of | | | | | | | | | | + +--------+ +--------+ + + | Sarthak Nelson | Person | Self [birth year] | [address] | | | al/Fam | | 1951 | [phone] | [place] [address] | | | john | | | 5 (Home) | | + +--------+ +--------+ + + Advance Directives + + + + + | Type | Date Recorded | Patient | Explanation | | | | [employer] | | + + + + + | Power of | | | | | Tax Compliance Agent | | | | + + + + + | Advance | 06/20/2018 9:59 | | @Dr's office | | Directive | AM | | | + + + + + + + + + + | Code Status | Date | Date | Comments | | | Activated | Inactivated | | + + + + + | Full Code | 06/22/2018 | 07/01/2018 | | | | 5:43 PM | 3:31 PM | | + + + + + + + + +---+ | | | | | + + + +---+ | Full Code | 06/19/2018 | 06/22/2018 | | | | 8:45 PM | 5:21 PM | | + + + +---+
--- OUTSIDE RECORDS SUMMARY | ~2019-08-11 | XMS | Encounter Summary ---
Demographics + + + | Address | [address] [place] [address] | | | [place] [address] | + + + | Home Phone | | + + + | Preferred Language | Unknown | + + + | Marital Status | Single | + + + | Methodist Affiliation | PEN | + + + | Race | White | + + + | Ethnic Group | Not or | + + + Author + + + | Author | [facility] | + + + | Organization | [facility] | + + + | Address | Unknown | + + + | Phone | Unavailable | + + + Support + + + + + | Name | Relationship | Address | Phone | + + + + + | Aileen Nelson | ECON | [address] | | | | | [place] [address] | | + + + + + Care Team Providers + +------+ + | Care Maintenance Service Technician Name | Role | Phone | + +------+ + PCP | Unavailable | + +------+ + Reason for Visit Diagnostic Testing (Routine) +--------+--------+ + + + + | Status | Reason | Specialty | Diagnoses / | Referred By | Referred To | | | | | Procedures | Contact | Contact | +--------+--------+ + + + + | Closed | | Radiology | Diagnoses | Veterans, | Rad Pet Kpv | | | | | Renal mass | Administrati | [address] | | | | | Procedures | on [facility] | [facility] | | | | | PET SKULL | [facility] A [facility] | [facility] | | | | | BASE TO | CENTER | Pavilion | | | | | [facility] | [address] | [address] | | | | | | [facility] | Pav[facility] | | | | | [address] | [place], [place] | | | | | | [place], | [address] | | | | | | [place] [address] | Phone: | | | | | | Phone: | [phone] | | | | | | [phone] | Fax: | | | | | | Fax: | [phone] | | | | | | [phone] | | +--------+--------+ + + + + Encounter Details +--------+ + + + + | Date | Type | Department | Care Team | Description | +--------+ + + + + | 10/22/ | Hospital | Radiation Oncology | | | | 2011 | Encounter | at [facility] [address] | | | | | | [address] | | | | | | [place] | | | | | | [place] | | | | | | [place], [place] | | | | | | [address] | | | | | | [phone] | | | +--------+ + + + [...] | PST | + +---------+--------+ + + documented as of this encounter Procedures + +--------+ + + + | Procedure Name | Priori | Date/Time | Associated Diagnosis | Comments | | | ty | | | | + +--------+ + + + | ORDERS OTHER | | 10/22/2011 | | Results for this | | | | 12:00 AM | | procedure are in the | | | | PST | | results section. | + +--------+ + + + | ORDERS OTHER | | 10/14/2011 | | Results for this | | | | 12:00 AM | | procedure are in the | | | | PST | | results section. | + +--------+ + + + documented in this encounter Results ORDERS OTHER (10/22/2011 12:00 AM PST) + + + | Narrative | Performed At | + + + | | | + + + + + | Transcriptions | + + | Meme Hutton - 06/21/2012 2:07 PM PDT | + + FELIPA HUTTON (10/14/2011 12:00 AM PST) + + + | Narrative | Performed At | + + + | | | + + + + + | Transcriptions | + + | Meme Hutton - 11/11/2011 11:25 AM PST | + + documented in this encounter Visit Diagnoses + + | Diagnosis | + + | Renal mass Unspecified disorder of kidney and ureter | + + documented in this encounter"
--- OUTSIDE RECORDS SUMMARY | ~2019-08-11 | XMS | Encounter Summary ---
Demographics + + + | Address | [address] | | | [place] [address] | + + + | Home Phone | | + + + | Preferred Language | Unknown | + + + | Marital Status | | + + + | Christian Affiliation | 1038 | + + + | Race | Unknown | + + + | Ethnic Group | Unknown | + + + Author + + + | Author | [facility] | | | and [place] [...] [place] | | | | | [address] | | + + + + + Care Team Providers + +------+ + | Care Shade Hanger Name | Role | Phone | + [...] [place] | | | | | [place], [place] | [place] [address] | | | | | [address] | [phone] | | | | | [phone] | | | +--------+ + + + [...] and color flow Doppler was perfomed at [facility]. | | | Study: This was a [...] TR Vmax: 2.40 m/s | | | Foxing Closer: Authenticated by: MARISOL DUBOSE MD Report Date/Time: | | | -- [id number]:3 | | + + + + + [...] flow Doppler was perfomed | | at [facility].Study: This was a technically difficult study with [...] (A-L): 56.04 ml/m2LAAs A2C: | | 38.73 [id number] A-L A2C: 174.50 mlLAESV MOD A2C: 167.16 mlLALs A2C: 7.29 cmLAAs | | A4C: 30.93 mx4NGHOF A-L A4C: 123.07 mlLAESV MOD A4C: 117.61 mlLALs A4C: 6.59 | | cmRAAs: 29.75 [id number] A-L: 106.29 mlRAESV MOD: 104.36 mlRALs: 7.07 cmTAPSE: | | 1.63 cmAV Env.Ti: 293.94 msAV maxP.81 mmHgAV meanP.90 mmHgAV Vmax: 0.97 | | m/Merrick Vmean: 0.64 m/Merrick VTI: 18.82 cmAVA Vmax: 3.41 cm2AVA (VTI): 3.65 [id number] | | Vmax: 0.00 cm2/m2AVAI (VTI): 0.00 cm2/m2LVOT Env.Ti: 310.90 msLVOT maxP.86 | | mmHgLVOT meanP.99 mmHgLVSI Dopp: 24.99 ml/m2LVSV Dopp: 68.73 mlLVOT Vmax: | | 0.68 m/sLVOT Vmean: 0.45 m/sLVOT VTI: 14.06 cmMV E Rodney: 1.16 m/sRAP: 10 mmHgRV | | S': 0.07 m/sRVSP: 33.16 mmHgTR maxP.16 mmHgTR Vmax: 2.40 m/s | | Foxing Closer:Authenticated by: Wilbur GROSS Date/Time: -38_[id number]_26:59:3 | | IMPRESSION: 1. Overall left ventricular [...] |TR Vmax: 2.40 m/s | | | |Foxing Closer: | |Authenticated by: MARISOL DUBOSE MD | |Report Date/Time: -- 47_[id number]_76:59:3 | | | |IMPRESSION: | |1. Overall [...]
--- OUTSIDE RECORDS SUMMARY | ~2019-08-11 | XMS | Encounter Summary ---
Demographics + + + | Address | [address] [place] [address] | | | [place] [address] | + + + | Home Phone | | + + + | Preferred Language | Unknown | + + + | Marital Status | Single | + + + | Jewish Affiliation | PEN | + + + | Race | White | + + + | Ethnic Group | Not or | + + + Author + + + | Author | [facility] | + + + | Organization | [facility] | + + + | Address | Unknown | + + + | Phone | Unavailable | + + + Support + + + + + | Name | Relationship | Address | Phone | + + + + + | Aileen Aranda | ECON | [address] | | | | | [place] [address] | | + + + + + Care Team Providers + +------+ + | Care Relationship Mgr Name | Role | Phone | + [...] | | Results for this | | [address] | e | 6:03 PM | | [...] POINT | | | GLUCOSE, | ID: [id number]: | | OF CARE | | | POC | [id number] Naida Lyles | | TESTING | | | |Service Desk Technician: [id number] Naida Lyles | | | | | [...] | + +---------+ + + SCROTAL ULTRASOUND 71417 (05/08/2015 6:03 PM PDT) + + | Specimen | + + | | + + + + + | Narrative | Performed At | + + + | Name: | [facility] | | ARANDA,SARTHAK E | DEPARTMENT OF | | Phys: Bruno Gray MD | RADIOLOGY | | | | | : 1950 Age: 64 Sex: M | | | Acct: [id number] Loc: 426 2 | | | | | | Exam Date: 05/08/2015 Status: ADM IN | | | Radiology No: [id number] | | | Unit No: | | | [id number] EXAM# TYPE/EXAM | | | RESULT | | | [id number] US/SCROTAL ULTRASOUND 66957 | | | EXAM: SCROTAL ULTRASOUND | [...] | | | Transcribed Date/Time: 05/08/2015 (1803) Manager Validation: | | | SPEECHQ PAGE 1 Signed Report | | | | | + + + + + | Procedure Note | + + | Interface, Radiology Results - 05/08/2015 6:04 PM PDT | | Name: SARTHAK ARANDA | | Phys: Bruno Gray MD : | | 1950 Age: 64 Sex: M Acct: [id number] | | Loc: 426 2 Exam Date: 05/08/2015 | | Status: ADM IN Radiology No: [id number] | | Unit No: [id number] EXAM# TYPE/EXAM | | RESULT [id number] US/SCROTAL ULTRASOUND | | 25137 EXAM: SCROTAL ULTRASOUND | | CLINICAL HISTORY: [...] | Transcribed Date/Time: | | 05/08/2015 (1803) Manager Validation: GABRIELQ PAGE 1 Signed Report | | [...] | | | | Transcribed Date/Time: 05/08/2015 (2176) | | Manager Validation: SPEECHQ | | | | | | [...] POINT | | | GLUCOSE, | ID: [id number]: | | OF CARE | | | POC | [id number] Raisa Jesus Manuel | | TESTING | | | |Service Desk Technician: [id number] Raisa Ken | | | | | [...] POINT | | | GLUCOSE, | ID: [id number]: | | OF CARE | | | POC | [id number] Raisa Ken | | TESTING | | | |Service Desk Technician: [id number] Raisa Ken | | | | | [...] [facility] POINT | | | GLUCOSE, | [id number]: | | OF CARE | | | POC | [id number] Carie Mueller | | TESTING | | [...] [facility] | | | PLASMA | to tucking machine operator: ADD ON | | MEDITECH | | | (LAB) | PREFERRED | | LABORATORY | | + + + + + + + + | Specimen | + + | | + + + + + | Narrative | Performed At | + + + | 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 [facility] | | | PLASMA | to tucking machine operator: ADD ON | mmol/L | MEDITECH | | | (LAB) | PREFERRED | | LABORATORY | | + + + + + + + + | Specimen | + + | | + + + + + | Narrative | Performed At | + + + | 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
--- OUTSIDE RECORDS SUMMARY | ~2019-08-11 | XMS | Encounter Summary ---
Demographics + + + | Address | [address] [place] [address] | | | [place] [address] | + + + | Home Phone [...] | | | | | [place] [address] | | + + + + + Care Team Providers + +------+ + | Care Cop Examiner Name | Role | Phone | + [...] | | Results for this | | [address] | e | 3:22 PM | | [...] POINT | | | GLUCOSE, | ID: [id number]: | | OF CARE | | | POC | [id number] John Goyal | | TESTING | | | |Tack Puller Machine: [id number] John Goyal | | | | | [...] POINT | | | GLUCOSE, | ID: [id number]: | | OF CARE | | | POC | [id number] Adam Guille | | TESTING | | | |Tack Puller Machine: [id number] Adam Guille | | | | | [...] | + +---------+ + + SCROTAL ULTRASOUND [id number] (05/04/2015 3:22 PM PDT) + + | Specimen | + + | | + + + + + | Narrative | Performed At | + + + | Name: | [facility] | | SARTHAK ARANDA | DEPARTMENT OF | | Phys: Sonu Welch MD | RADIOLOGY | | | | | : 1950 Age: 64 Sex: M | | | Acct: [id number] Loc: 426 2 | | | | | | Exam Date: 05/03/2015 Status: ADM IN | | | Radiology No: | | | Unit No: | | | [id number] EXAM# TYPE/EXAM | | | RESULT | | | [id number] US/SCROTAL ULTRASOUND 93590 | | | TESTICULAR ULTRASOUND | | [...] | Sex: M | | | Acct: [id number] Loc: 426 2 | | | Exam Date: 05/03/2015 | | | Status: ADM IN | | | Radiology No: | | | Unit No: [id number] | | | EXAM# TYPE/EXAM RESULT | | | [id number] US/SCROTAL | | | ULTRASOUND 75777 | | | Findings reviewed with Dr. Estes May 04, | | | 2014. [id number] | | | REPORT ELECTRONICALLY SIGNED 05/05/2015 (6927) | | | Reported By: Neetu HERNÁNDEZ MD | | | Signed By: Scooter Hernández M.D. | | | | | | Technologist: LISA DICKERSON | | | Electronically signed by: Neetu BUCK | | | SAGAR BARAHONA CC: Romain Harrington MD | | | | | | | | | Transcribed Date/Time: | | | 05/04/2015 (828) Hotel Server: MQ.RSW PAGE | | | 2 Signed Report | | | | | + + + + + | Procedure Note | + + | Interface, Radiology Results - 06/03/2015 10:36 AM PDT | | Name: SARTHAK ARANDA | | Phys: Sonu Welch MD : | | 1950 Age: 64 Sex: M Acct: [id number] | | Loc: 426 2 Exam Date: 05/03/2015 | | Status: ADM IN Radiology No: | | Unit No: [id number] EXAM# TYPE/EXAM | | RESULT [id number] US/SCROTAL ULTRASOUND | | 93470 TESTICULAR ULTRASOUND | | INDICATION: Right-sided scrotal [...] Age: 64 Sex: M Acct: | | [id number] Loc: 426 2 Exam Date: | | 05/03/2015 Status: ADM IN Radiology No: | | Unit No: [id number] EXAM# | | TYPE/EXAM RESULT [id number] | | US/SCROTAL ULTRASOUND 06790 Findings | | reviewed with Dr. Estes May 04, 2015. [id number] | | REPORT ELECTRONICALLY SIGNED 05/05/2015 (1635) Reported | | By: eNetu HERNÁNDEZ MD Signed By: Scooter Hernández M.D. | | Technologist: LISA DICKERSON | | Electronically signed by: Neetu HERNÁNDEZ MD CC: Romain Harrington MD | | | | Transcribed Date/Time: 05/04/2015 (1630) | | Hotel Server: [facility] PAGE 2 Signed Report | | [...] Age: 64 Sex: M | | Acct: [id number] Loc: 426 2 | | Exam Date: 05/03/2015 Status: ADM IN | | Radiology No: | | Unit No: [id number] | | | | | | | | | |EXAM# TYPE/EXAM RESULT | |[id number] US/SCROTAL ULTRASOUND [id number] | | | | Findings reviewed with Dr. Estes May 04, 2015. | | | | [id number] | | | | | | REPORT [...] | | | | Transcribed Date/Time: 05/04/2015 (4603) | | Hotel Server: [facility] | | | | | | [...] POINT | | | GLUCOSE, | ID: [id number]: | | OF CARE | | | POC | [id number] Adam Han | | TESTING | | | |Tack Puller Machine: [id number] Adam Han | | | | | [...] POINT | | | GLUCOSE, | ID: [id number]: | | OF CARE | | | POC | [id number] Megan | | TESTING | | | [...] | | TESTING | | | | [id number]: | | | | | | [id number] Bruceheron Prettya | | | | | [...]
--- OUTSIDE RECORDS SUMMARY | ~2019-08-11 | XMS | Encounter Summary ---
Demographics + + + | Address | [address] [place] [address] | | | [place] [address] | + + + | Home Phone | | + + + | Preferred Language | Unknown | + + + | Marital Status | Single | + + + | Mosque Affiliation | PEN | + + + | Race | White | + + + | Ethnic Group | Not or | + + + Author + + + | Author | [facility] | + + + | Organization | [facility] | + + + | Address | Unknown | + + + | Phone | Unavailable | + + + Support + + + + + | Name | Relationship | Address | Phone | + + + + + | Aileen Nelson | ECON | [address] | | | | | [place] [address] | | + + + + + Care Team Providers + +------+ + | Care Mold Making Supervisor Name | Role | Phone | + +------+ + PCP | Unavailable | + +------+ + Encounter Details +--------+ + + + + | Date | Type | Department | Care Team | Description | +--------+ + + + + | 10/13/ | Hospital | Diagnostic Imaging | | | | 2009 | Encounter | Services at [facility] | | | | | | [address] | | | | | | [place] Mailcode: | | | | | | [address] [facility] | | | | | | [place], [place] | | | | | | [address] | | | | | | [phone] | | | +--------+ + + + [...] | Procedure Note | + + | Meme Hutton - 02/23/2010 10:13 AM PDT | | | + + documented in this encounter Visit Diagnoses Not on filedocumented in this encounter"
--- OUTSIDE RECORDS SUMMARY | ~2019-08-11 | XMS | Encounter Summary ---
Demographics + + + | Address | [address] | | | [place] [address] | + + + | Home Phone | | + + + | Preferred Language | Unknown | + + + | Marital Status | | + + + | Jehovah'S Witness Affiliation | 1038 | + + + | Race | Unknown | + + + | Ethnic Group | Unknown | + + + Author + + + | Author | [facility] | | | and [place] | + + + | Organization | [facility] | | | and [place] | + + + | Address | Unknown | + + + | Phone | Unavailable | + + + Support + + + + + | Name | Relationship | Address | Phone | + + + + + | Aileen Nelson | ECON | [address] | | | | | [place] | | | | | [address] | | + + + + + Care Team Providers + +------+ + | Care Crew Leader/Control Room Operator Name | Role | Phone | [...] Ted Navarro | | | | | [place], [place] | [place] | | | | | [address] | [address] | | | | | [phone] | [phone] | | | | | | | [...]
--- OUTSIDE RECORDS SUMMARY | ~2019-08-11 | XMS | Encounter Summary ---
Demographics + + + | Address | [address] [place] [address] | | | [place] [address] | + + + | Home Phone [...] Author + + + | Author | [facility] | + + + | Organization | [facility] | + + + | Address | Unknown | + + + | Phone | Unavailable | + + + Support + + + + + | Name | Relationship | Address | Phone | + + + + + | Aileen Nelson | ECON | [address] | | | | | [place] [address] | | + + + + + Care Team Providers + +------+ + | Care Break Up Worker Name | Role | Phone | [...] | | | | | [place] [address] | | | | | | [phone] | | | | | | | [...] POINT | | | GLUCOSE, | ID: [id number]: | | OF CARE | | | POC | [id number] Rowena Williamson | | TESTING | | | |Emergency Planning And Response Manager: [id number] Rowena Williamson | | | | | [...] [facility] | | | GLUCOSE, | [id number]: | | OF CARE | | | POC | [id number] Rowena Williamson | | TESTING | | | |Emergency Planning And Response Manager: [phone] Rowena Williamson | | | | | [...]
--- OUTSIDE RECORDS SUMMARY | ~2019-08-11 | XMS | Encounter Summary ---
Demographics + + + | Address | [address] [place] [address] | | | [place] [address] | + + + | Home Phone | | + + + | Preferred Language | Unknown | + + + | Marital Status | Single | + + + | Baptist Affiliation | PEN | + + + [...] | | | | | [place] [address] | | + + + + + Care Team Providers + +------+ + | Care Diamond Finishing Supervisor Name | Role | Phone | + +------+ + | Romain Harrington MD | PCP | | + +------+ + Encounter Details +--------+ + + + + | Date | Type | Department | Care Team | Description | +--------+ + + + + | 05/06/ | Results | [facility] | Ghanshyam Raymond | | | 2014 | Only | Department | MD Katrin [address] | | | | | [address] [place] | | | | | | [address] | | | | | | [phone] | | | | | | | [...] + | CAP GLU,POC | Routin | 05/06/2015 | | Results for this | | | e | 8:54 PM | | procedure are in the | | | | PDT | | results section. | + +--------+ + + + | CAP GLU,POC | Routin | 05/06/2015 | | Results for this | | | e | 5:01 PM | | procedure are in the | | | | PDT | | results section. | + +--------+ + + + | CAP GLU,POC | Routin | 05/06/2015 | | Results for this | | | e | 12:08 PM | | procedure are in the | | | | PDT | | results section. | + +--------+ + + + | CAP GLU,POC | Routin | 05/06/2015 | | Results for this | | | e | 7:53 AM | | procedure are in the | | | | PDT | | results section. | + +--------+ + + + | CAP GLU,POC | Routin | 05/06/2015 | | Results for this | | | e | 5:42 AM | | procedure are in the | | | | PDT | | results section. | + +--------+ + + + | INR | Routin | 05/06/2015 | | Results for this | | | e | 5:15 AM | | procedure are in the | | | | PDT | | results section. | + +--------+ + + + documented in this encounter Results CAP GLU,POC (05/06/2015 8:54 PM PDT) + + + + + + | Component | Value | Ref Range | Performed | Pathologist | | | | | At | Signature | + + + + + + | BLOOD | 128 (A)Comment: Meter | 70 - 110 MG/DL | [facility] | | | GLUCOSE, | ID: [id number]: | | OF CARE | | | POC | [id number] Davi Diop | | TESTING | | | |University Tutor: [id number] Davi Diop | | | | | [...] | + +---------+ + + CAP GLU,POC (05/06/2015 5:01 PM PDT) + + + + + + | Component | Value | Ref Range | Performed | Pathologist | | | | | At | Signature | + + + + + + | BLOOD | 99Comment: Meter ID: | 70 - 110 MG/DL | [facility] | | | GLUCOSE, | [id number]: | | OF CARE | | | POC | [id number] Linsey Peñaloza | | TESTING | | | |University Tutor: [id number] Linsey Peñaloza | | | | | | | [...] | + +---------+ + + CAP GLU,POC (05/06/2015 12:08 PM PDT) + + + + + + | Component | Value | Ref Range | Performed | Pathologist | | | | | At | Signature | + + + + + + | BLOOD | 208 (A)Comment: Meter | 70 - 110 MG/DL | [facility] | | | GLUCOSE, | ID: [id number]: | | OF CARE | | | POC | [id number] Linsey Peñaloza | | TESTING | | | |University Tutor: [id number] Linsey Peñaloza | | | | | | | [...] | + +---------+ + + AIDE MCALLISTER (05/06/2015 7:53 AM PDT) + + + + + + | Component | Value | Ref Range | Performed | Pathologist | | | | | At | Signature | + + + + + + | BLOOD | 133 (A)Comment: Meter | 70 - 110 MG/DL | [facility] | | | GLUCOSE, | ID: [id number]: | | OF CARE | | | POC | [id number] Linsey Peñaloza | | TESTING | | | |University Tutor: [id number] Linsey Peñaloza | | | | | | | [...] | + +---------+ + + CAP GLU,POC (05/06/2015 5:42 AM PDT) + + + + + + | Component | Value | Ref Range | Performed | Pathologist | | | | | At | Signature | + + + + + + | BLOOD | 126 (A)Comment: Meter | 70 - 110 MG/DL | [facility] | | | GLUCOSE, | ID: [id number]: | | OF CARE | | | POC | [id number] Jesse Ivey | | TESTING | | | |University Tutor: [id number] Jesse Ivey | | | | | [...] | | + +---------+ + + INR (05/06/2015 5:15 AM PDT) + + + + + + | Component | Value | Ref Range | Performed | Pathologist | | | | | At | Signature | + + + + + + | PROTHROMBIN | 20.4 (A) | 8.6 - 11.2 SEC | [facility] | | | TIME | | | MEDITECH | | | | | | LABORATORY | | + + + + + + | INR | 2.0 (A) | 1.0 - 1.1 | [facility] [...]
--- OUTSIDE RECORDS SUMMARY | ~2019-08-11 | XMS | Encounter Summary ---
Demographics + + + | Address | [address] | | | [place] [address] | + + + | Home Phone | | + + + | Preferred Language | Unknown | + + + | Marital Status | | + + + | Jewish Affiliation | 1038 | + + + | Race | Unknown | + + + | Ethnic Group | Unknown | + + + Author + + + | Author | [facility] | | | and [place] [...] | Aileen Nelson | ECON | [address] | | | | | [place] | | | | | [address] | | + + + + + Care Team Providers + +------+ + | Care Auto Transmission Specialist Name | Role | Phone | + [...] Ted Navarro | | | | | [place], [place] | [place] | | | | | [address] | [address] | | | | | [phone] | [phone] | | | | | | | [...]
--- OUTSIDE RECORDS SUMMARY | ~2019-08-11 | XMS | Encounter Summary ---
Demographics + + + | Address | [address] [address] | | | [place] [address] | + + + | Home Phone | | + + + | Preferred Language | Unknown | + + + | Marital Status | Single | + + + | Amish Affiliation | PEN | + + + | Race | White | + + + | Ethnic Group | Not or | + + + Author + + + | Author | [facility] | + + + | Organization | [facility] | + + + | Address | Unknown | + + + | Phone | Unavailable | + + + Support + + + + + | Name | Relationship | Address | Phone | + + + + + | Aileen Nelson | ECON | [address] | | | | | [place] [address] | | + + + + + Care Team Providers + +------+ + | Care Stave Machine Tender Name | Role | Phone | + [...] (Primary Dx); | | | | [place], [place] | [place] [address] | Hydrocele, | | | | [address] | [phone] | unspecified | | | | [phone] | | hydrocele type | +--------+---------+ + [...] up with [place] physician [place] [facility] in 4 weeks Try and elevated you scrotum as often/much as possible documented in this encounter Progress Notes Edmond Estes MD - 05/17/2015 9:11 AM PDTFormatting of this note might be different fr om the original. ID: Ed is a 64-year-old male. His primary care provider is Romain Harrington MD. CC: Epididymitis and hydrocele. HPI: Ed was seen at [facility] and kept as an inpatient for a few days with cellulitis. He was eventu ally able to be transitioned over from IV to p.o. medications and was discharged home. He w as intended to have close followup with his infectious disease provider [place] the [place]. Mr. Nelson did not follow up at the [place]. He states the pain is improving, the redness is improved. He denies any dysuria or blood in the urine. He has had no fevers or chills. Past Medical History Diagnosis Date Diabetes mellitus Human immunodeficiency virus (HIV) disease Coronary atherosclerosis of unspecified type of vessel, solomon or graft Acute, but ill-defined, cerebrovascular disease Unspecified essential hypertension Arrhythmia a-fib, v-fib Chronic kidney disease (CKD), stage III (moderate) Paroxysmal SVT (supraventricular tachycardia) Congestive heart failure, unspecified Atrial fibrillation Obesity RACHELLE (obstructive sleep apnea) High cholesterol Back pain ED (erectile dysfunction) Epididymitis 2009 Cellulitis Venous insufficiency (chronic) (peripheral) Past Surgical History Procedure Laterality Date Aicd implantation Meds: Current outpatient prescriptions: ABACAVIR/DOLUTEGRAVIR/LAMIVUDI (QGNRLGPC-MOIDWDITJDPC-VNZ IVUD ORAL), Take 600 mg by mouth [...] once daily. , Disp: , Rfl: omega 0-dyi-cpt-fish oil (FISH OIL) 100-160-1,000 mg oral capsule, [...] encouraged them to follow up with the [place] as previously described. I would like him to see urology either at the [place] or to return to our office. I have asked him to see us back i anand three or four weeks if he has not been seen at the [place]. We can also discuss at that time aliza webb or not the urinary tract infections need any workup. 2. He will continue and finish his antibiotics. Edmond Estes M.D./winnie [employer] Consultant was offered to the patient. The offer [...]
--- OUTSIDE RECORDS SUMMARY | ~2019-08-11 | XMS | Encounter Summary ---
Demographics + + + | Address | [address] | | | [place] [address] | + + + | Home Phone | | + + + | Preferred Language | Unknown | + + + | Marital Status | | + + + | Restorationism Affiliation | 1038 | + + + | Race | Unknown | + + + | Ethnic Group | Unknown | + + + Author + + + | Author | [facility] | | | and [place] | + + + | Organization | [facility] | | [...] [place] | | | | | [address] | | + + + + + Care Team Providers + +------+ + | Care Inspector And Clipper Name | Role | Phone | + [...] | [address] | [address] | | | | | [place], [place] | [place] | | | | | [address] | [address] | | | | | [phone] | [phone] | | | | | | | [...] + + | COMPREHENSIVE | Routin | 09/16/2017 | | Results for this | | METABOLIC PANEL | e | 6:16 AM | | procedure are in the | | | | PST | | results section. | + +--------+ + + + documented in this encounter Results Comprehensive Metabolic Panel (09/16/2017 6:16 AM PST) + + + + + + | Component | Value | Ref Range | Performed | Pathologist | | | | | At | Signature | + + + + + + | Na | 139 | 135 - 145 | EXTERNAL | | | | | mmol/L | LAB | | + + + + + + | K | 3.6 | 3.5 - 4.9 | EXTERNAL | | | | | mmol/L | LAB | | + + + + + + | Cl | 101 | 99 - 109 mmol/L | EXTERNAL | | | | | | LAB | | + + + + + + | CO2 | 28 | 23 - 32 mmol/L | EXTERNAL | | | | | | LAB | | + + + + + + | Anion Gap | 14 | 5 - 20 mmol/L | EXTERNAL | | | | | | LAB | | + + + + + + | Glucose, | 150 (H) | 65 - 99 mg/dL | EXTERNAL | | | Fasting | | | LAB | | + + + + + + | BUN | 78 (H) | 8 - 25 mg/dL | EXTERNAL | | | | | | LAB | | + + + + + + | Creatinine | 2.4 (H) | 0.70 - 1.30 | EXTERNAL | | | | | mg/dL | LAB | | + + + + + + | BUN/Creatin | 33 | | EXTERNAL | | | ine Ratio | | | LAB | | + + + + + + | Calcium | 8.6 | 8.5 - 10.5 | EXTERNAL | | | | | mg/dL | LAB | | + + + + + + | Protein, | 6.8 | 6.3 - 8.2 g/dL | EXTERNAL | | | Total | | | LAB | | + + + + + + | Albumin | 2.2 (L) | 3.3 - 4.8 g/dL | EXTERNAL | | | | | | LAB | | + + + + + + | Globulin | 4.6 | 1.3 - 4.9 g/dL | EXTERNAL | | | | | | LAB | | + + + + + + | A/G Ratio | 0.5 (L) | 1.0 - 2.4 | EXTERNAL | | | | | | LAB | | + + + + + + | Bilirubin | 0.4 | 0.1 - 1.5 mg/dL | EXTERNAL | | | Total | | | LAB | | + + + + + + | ALP, | 63 | 35 - 115 U/L | EXTERNAL | | | External | | | LAB | | + + + + + + | AST | 42 | 10 - 45 U/L | EXTERNAL | | | | | | LAB | | + + + + + + | ALT | 13 | 10 - 65 U/L | EXTERNAL | | | | | | LAB | | + + + + + + | Estimated | 29 (L)Comment: GFR <60: | mL/min/1.73_m2 | EXTERNAL | | | GFR | CHRONIC KIDNEY DISEASE, | | LAB | | | | IF FOUND OVER A 3 MONTH | | | | | | PERIOD. GFR <15: KIDNEY | | | | | | FAILURE. FOR | | | | | | AMERICANS, MULTIPLY THE | | | | | | CALCULATED GFR BY 1.210. | | | | + + + + + + + + | Specimen | + + | | + + + + + | Narrative | Performed At | + + + | Attending/Visit Provider: MASTER MD, Tessa AGUILAR, , , , NICOLAS, | [...]
--- OUTSIDE RECORDS SUMMARY | ~2019-08-11 | XMS | Encounter Summary ---
Demographics + + + | Address | [address] | | | [place] [address] | + + + | Home Phone | | + + + | Preferred Language | Unknown | + + + | Marital Status | | + + + | Sikh Affiliation | 1038 | + + + | Race | Unknown | + + + | Ethnic Group | Unknown | + + + Author + + + | Author | [facility] | | | and [place] | + + + | Organization | [facility] | | | and [place] | + + + | Address | Unknown | + + + | Phone | Unavailable | + + + Support + + + + + | Name | Relationship | Address | Phone | + + + + + | Aileen Nelson | ECON | [address] | | | | | [place] | | | | | [address] | | + + + + + Care Team Providers + +------+ + | Care Buckle Sewer Machine Name | Role | Phone | + [...] Ted Navarro | | | | | [place], [place] | [place] | | | | | [address] | [address] | | | | | [phone] | [phone] | | | | | | | [...] | + +--------+ + + + | EXTERNAL LAB: RUBEN | Routin | 09/16/2017 | | Results for this | | | e | 6:16 AM | | procedure are in the | | | | PST | | results section. | + +--------+ + + + | EXTERNAL LAB: RUBEN | Routin | 09/16/2017 | | Results for this | | | e | 6:16 AM | | procedure are in the | | | | PST | | results section. | + +--------+ + + + documented in this encounter Results External Lab: RUBEN (09/16/2017 6:16 AM PST) + + + + + + | Component | Value | Ref Range | Performed | Pathologist | | | | | At | Signature | + + + + + + | WBC | 9.75 | 3.80 - 11.00 | EXTERNAL | | | | | 10*3/uL | LAB | | + + + + + + | RED CELL | 5.08 | 4.20 - 5.70 | EXTERNAL | | | COUNT | | 10*6/uL | LAB | | + + + + + + | Hgb | 15.5 | 13.2 - 17.0 | EXTERNAL | | | | | g/dL | LAB | | + + + + + + | Hematocrit, | 47.0 | 39.0 - 50.0 % | EXTERNAL | | | POC | | | LAB | | + + + + + + | MCV | 92.4 | 80.0 - 100.0 fL | EXTERNAL | | | | | | LAB | | + + + + + + | MCH | 30.5 | 27.0 - 34.0 pg | EXTERNAL | | | | | | LAB | | + + + + + + | MCHC | 33.0 | 32.0 - 35.5 | EXTERNAL | | | | | g/dL | LAB | | + + + + + + | RDW-CV | 59.5 (H) | 37 - 53 fL | EXTERNAL | | | | | | LAB | | + + + + + + | Platelet | 367 | 150 - 400 | EXTERNAL | | | Count | | 10*3/uL | LAB | | | Plasma | | | | | + + + + + + | MPV | 8.6 | fL | EXTERNAL | | | | | | LAB | | + + + + + + | Differentia | AUTOMATED | | EXTERNAL | | | l Type | | | LAB | | + + + + + + | % Segmented | 58.20 | % | EXTERNAL | | | | | | LAB | | | Neutrophils | | | | | + + + + + + | % | 29.51 | % | EXTERNAL | | | Lymphocytes | | | LAB | | + + + + + + | % Monocytes | 11.10 | % | EXTERNAL | | | | | | LAB | | + + + + + + | % | 0.77 | % | EXTERNAL | | | Eosinophils | | | LAB | | + + + + + + | % Basophils | 0.42 | % | EXTERNAL | | | | | | LAB | | + + + + + + | Absolute | 5.67Comment: CORRECTED | 1.90 - 7.40 | EXTERNAL | | | Segmented | ON 09/16 AT 0725: | 10*3/uL | LAB | | | Neutrophils | PREVIOUSLY REPORTED | | | | | | 5.68 | | | | + + + + + + | Absolute | 2.88 | 1.00 - 3.90 | EXTERNAL | | | Lymphocytes | | 10*3/uL | LAB | | + + + + + + | Absolute | 1.08 (H) | 0.00 - 0.80 | EXTERNAL | | | Monocytes | | 10*3/uL | LAB | | + + + + + + | Absolute | 0.08 | 0.00 - 0.50 | EXTERNAL | | | Eosinophils | | 10*3/uL | LAB | | + + + + + + | Absolute | 0.04 | 0.00 - 0.10 | EXTERNAL | | | Basophils | | 10*3/uL | LAB | | + + + + + + | Platelet | ADEQUATE | | EXTERNAL | | | Estimate | | | LAB | | + + + + + + | RBC | 1+ | | EXTERNAL | | | Morphology | | | LAB | | + + + + + + | RBC | ANISO | | EXTERNAL | | | Morphology | | | LAB | | + + + + + + | RBC | NORMAL WBC MORPH | | EXTERNAL | | | Morphology | | | LAB | | + + + + + + | RBC | NORMAL PLT MORPH | | EXTERNAL | | | Morphology | | | LAB | | + [...] | | | + +---------+ + + External Lab: CBC (09/16/2017 6:16 AM PST) + + + + + + | Component | Value | Ref Range | Performed | Pathologist | | | | | At | Signature | + + + + + + | WBC | 9.75 | 3.80 - 11.00 | EXTERNAL | | | | | 10*3/uL | LAB | | + + + + + + | RED CELL | 5.08 | 4.20 - 5.70 | EXTERNAL | | | COUNT | | 10*6/uL | LAB | | + + + + + + | Hgb | 15.5 | 13.2 - 17.0 | EXTERNAL | | | | | g/dL | LAB | | + + + + + + | Hematocrit, | 47.0 | 39.0 - 50.0 % | EXTERNAL | | | POC | | | LAB | | + + + + + + | MCV | 92.4 | 80.0 - 100.0 fL | EXTERNAL | | | | | | LAB | | + + + + + + | MCH | 30.5 | 27.0 - 34.0 pg | EXTERNAL | | | | | | LAB | | + + + + + + | MCHC | 33.0 | 32.0 - 35.5 | EXTERNAL | | | | | g/dL | LAB | | + + + + + + | RDW-CV | 59.5 (H) | 37 - 53 fL | EXTERNAL | | | | | | LAB | | + + + + + + | Platelet | 367 | 150 - 400 | EXTERNAL | | | Count | | 10*3/uL | LAB | | | Plasma | | | | | + + + + + + | MPV | 8.6 | fL | EXTERNAL | | | | | | LAB | | + + + + + + | Differentia | AUTOMATED | | EXTERNAL | | | l Type | | | LAB | | + + + + + + | % Segmented | 58.20 | % | EXTERNAL | | | | | | LAB | | | Neutrophils | | | | | + + + + + + | % | 29.51 | % | EXTERNAL | | | Lymphocytes | | | LAB | | + + + + + + | % Monocytes | 11.10 | % | EXTERNAL | | | | | | LAB | | + + + + + + | % | 0.77 | % | EXTERNAL | | | Eosinophils | | | LAB | | + + + + + + | % Basophils | 0.42 | % | EXTERNAL | | | | | | LAB | | + + + + + + | Absolute | 5.68 | 1.90 - 7.40 | EXTERNAL | | | Segmented | | 10*3/uL | LAB | | | Neutrophils | | | | | + + + + + + | Absolute | 2.88 | 1.00 - 3.90 | EXTERNAL | | | Lymphocytes | | 10*3/uL | LAB | | + + + + + + | Absolute | 1.08 (H) | 0.00 - 0.80 | EXTERNAL | | | Monocytes | | 10*3/uL | LAB | | + + + + + + | Absolute | 0.08 | 0.00 - 0.50 | EXTERNAL | | | Eosinophils | | 10*3/uL | LAB | | + + + + + + | Absolute | 0.04 | 0.00 - 0.10 | EXTERNAL | | | Basophils | | 10*3/uL | LAB | | [...]
--- OUTSIDE RECORDS SUMMARY | ~2019-08-11 | XMS | Encounter Summary ---
Demographics + + + | Address | [address] | | | [place] [address] | + + + | Home Phone | | + + + | Preferred Language | Unknown | + + + | Marital Status | | + + + | Latter-Day Affiliation | 1038 | + + + | Race | Unknown | + + + | Ethnic Group | Unknown | + + + Author + + + | Author | [facility] | | | and [place] | + + + | Organization | [facility] | | | and [place] | + + + | Address | Unknown | + + + | Phone | Unavailable | + + + Support + + + + + | Name | Relationship | Address | Phone | + + + + + | Aileen Nelson | ECON | [address] | | | | | [place] | | | | | [address] | | + + + + + Care Team Providers + +------+ + | Care Swinging Cut Off Saw Operator Name | Role | Phone | [...] Ted Navarro | | | | | [place], [place] | [place] | | | | | [address] | [address] | | | | | [phone] | [phone] | | | | | | | [...] | + +--------+ + + + | C-REACTIVE PROTEIN | Routin | 09/16/2017 | | Results for this | | | e | 6:16 AM | | procedure are in the | | | | PST | | results section. | + +--------+ + + + documented in this encounter Results C-Reactive Protein (09/16/2017 6:16 AM PST) + +---------+ + + + | Component | Value | Ref Range | Performed | Pathologist | | | | | At | Signature | + +---------+ + + + | CRP | 1.8 (H) | mg/dL | EXTERNAL | | | | [...]
--- OUTSIDE RECORDS SUMMARY | ~2019-08-11 | XMS | Encounter Summary ---
Demographics + + + | Address | [address] | | | [place] [address] | + + + | Home Phone [...] + + | Author | [facility] | | | and [place] [...] | Aileen Nelson | ECON | [address] | | | | | [place] | | | | | [address] | | + + + + + Care Team Providers + +------+ + | Care Nurse Emergency Room Name | Role | Phone | + [...] Ted Navarro | | | | | [place], [place] | [place] | | | | | [address] | [address] | | | | | [phone] | [phone] | | | | | | | [...]
--- OUTSIDE RECORDS SUMMARY | ~2019-08-11 | XMS | Encounter Summary ---
Demographics + + + | Address | [address] [place] [address] | | | [place] [address] | + + + | Home Phone [...] Author + + + | Author | [facility] | + + + | Organization | [facility] | + + + | Address | Unknown | + + + | Phone | Unavailable | + + + Support + + + + + | Name | Relationship | Address | Phone | + + + + + | Aileen Nelson | ECON | [address] | | | | | [place] [address] | | + + + + + Care Team Providers + +------+ + | Care Renewable Energy Engineer Name | Role | Phone | [...] [place] | | | | | | [address] | | | | | | [phone] | | | | | | | [...] POINT | | | GLUCOSE, | ID: [id number]: | | OF CARE | | | POC | [id number] Davi Diop | | TESTING | | | |Behaviorist: [id number] Davi Diop | | | | | [...] [facility] | | | GLUCOSE, | [id number]: | | OF CARE | | | POC | [id number] Linsey Peñaloza | | TESTING | | | |Behaviorist: [id number] Linsey Peñaloza | | | | | [...] POINT | | | GLUCOSE, | ID: [id number]: | | OF CARE | | | POC | [id number] Linsey Peñaloza | | TESTING | | | |Behaviorist: [id number] Linsey Peñaloza | | | | | [...] POINT | | | GLUCOSE, | ID: [id number]: | | OF CARE | | | POC | [id number] Linsey Peñaloza | | TESTING | | | |Behaviorist: [id number] Linsey Peñaloza | | | | | [...] POINT | | | GLUCOSE, | ID: [id number]: | | OF CARE | | | POC | [id number] Jesse Ivey | | TESTING | | | |Behaviorist: [id number] Jesse Ivey | | | | | [...]
--- OUTSIDE RECORDS SUMMARY | ~2019-08-11 | XMS | Encounter Summary ---
Demographics + + + | Address | [address] | | | [place] [address] | + + + | Home Phone | | + + + | Preferred Language | Unknown | + + + | Marital Status | | + + + | Alevism Affiliation | 1038 | + + + | Race | Unknown | + + + | Ethnic Group | Unknown | + + + Author + + + | Author | [facility] | | | and [place] | + + + | Organization | [facility] | | | and [place] | + + + | Address | Unknown | + + + | Phone | Unavailable | + + + Support + + + + + | Name | Relationship | Address | Phone | + + + + + | Aileen Nelson | ECON | [address] | | | | | [place] | | | | | [address] | | + + + + + Care Team Providers + +------+ + | Care Wrist Hemmer Name | Role | Phone | + +------+ + | Jericho Cao MD | PCP | | + +------+ + Encounter Details +--------+ + + + + | Date | Type | Department | Care Team | Description | +--------+ + + + + | 06/22/ | Hospital | [facility] | Pramod Salinas | Neurogenic bladder; | | 2017 - | Encounter | [facility] [address] | MD Ekaterina [address] | Acute left | | | | [place], | [address] [place] | hemiparesis (HCC); | | 07/01/ | | [place] [address] | [place] [address] | Diabetic peripheral | | 2018 | | [phone] | [phone] | neuropathy (HCC); | | | | | | Dysphagia due to | | | | | | recent cerebral | | | | | | infarction; HIV | | | | | | (human | | | | | | immunodeficiency | | | | | | virus infection) | | | | | | ([facility]) | +--------+ + + + [...] Grayson a 67 y.o.malewho was admitted to [facility] on for CVA. The patient was in his usual state of health until mid morning of June 19 20 had sudde n onset of left-sided weakness. He was seen in an outlying hospital and emergently transfe rred here to [place] and admitted by Dr. Todd Sheffield MD. [...] has been on warfarin. Patient presented to [place]. Patient was out of timeframe for TPA [...] narrowed bilater ally. Patient was transferred to [place] for further evaluation. ASSESSMENT: Principal Problem: Ischemic [...] bubble study ordered -Telemetry -Serial troponins ordered -PT/OT/EMERGENCY DEPARTMENT MANAGER ordered -Unclear medication reconciliation, ordered, as per list which appears to be inaccurate as per patient holding Imdur, hydralazine, metoprolol for permissive hypertension -Neuro checks -Ordered Carotid Ultrasound, no images from [facility] when completed would consider xenia langston [...] due to kidney injury, listed on [facility] information -Hold metoprolol for now given permissive HTN CKD 3 Cr 1.77 -Cr 2.4 in 2017 at [facility] History of CVA -On Warfarin, no ASA, atorvastatin listed?, likely emboli source in the past -Start ASA, atorvastatin FEN: Advance by bedside eval PPX: Warfarin Disp: PT/OT/EMERGENCY DEPARTMENT MANAGER ordered He underwent brain CT scans on [...] sis, which is in contrast to [facility]'s ultrasound. He has pacer sonot amenable with [...] Route Frequency Provider Last Rate Last Dose ofbxxxsn-hkacfppnvxwd-lxvrGEBslt (TRIUMEQ) 600-50-300 mg per tablet 1 tablet [...] him [facility]. We therefore recommended [...] patient will be discharged today To the [facility] in [facility] to continue with rehab services there. [...] medication strength aka: IMDUR Unchanged Medications Details pfnppcuv-qarfffvadfjr-udmtKQVlca 600-50-300 mg per tablet Take 1 tablet by mouth Daily. Indications: HIV Disease aka: TRIUMEQ allopurinol 100 mg tablet Take 100 mg by mouth Daily. aka: ZYLOPRIM finasteride 5 mg tablet Take 1 tablet by mouth Daily. aka: PROSCAR gabapentin 600 MG tablet Take 300 mg by mouth 2 times daily. aka: NEURONTIN Saw Ruston 450 MG Caps Take 900 mg by [...] NOT CHANGED Medication Dose Last Dose Taken; brogkpgb-uylzuqxtslpi-miwkSHTquj (TRIUMEQ) 600-50-300 mg per tablet 1 tablet [ ] Take 1 tablet by mouth Daily. Indications: HIV Disease allopurinol (ZYLOPRIM) 100 mg tablet 100 mg [ ] Take 100 mg by mouth Daily. gabapentin (NEURONTIN) 600 MG tablet 300 mg [ ] Take 300 mg by mouth 2 times daily. Saw Ruston 450 MG CAPS 900 mg [ ] [...] this chart may have been created with LaunchBit voice recognition software. Occasi onal wrong-word or [...] + + +---------+ + + | Saw Ruston 450 | Take 900 mg by mouth | | 0 | | | | MG CAPS | 2 times daily. | | | | | + + + +---------+ + + documented as of this encounter Progress Notes Pramod Salinas MD - 06/30/2018 3:37 PM PDT Ucwa-qk-[facility] Rehabilitation Medicine Daily Progress Note Date: 06/30/18 [...] cognitive impairment Current Meds: Current Facility-Administered Medications: xqrvqupw-iiwijgprvreu-exqeJLWwyx (TRIUMEQ) 600-50-300 mg per tablet 1 tablet [...] speech therapy, case management, and social media intern #Rehab - -Continue PT for gait, mobility -Continue OT for ADL's, toileting, adaptive equipment -Continue EMERGENCY DEPARTMENT MANAGER for cognition, swallow -Continue SW for discharge [...] continuing to coordinate and collaborate with the [facility] nursing staff to complement their therapy treatment focus, especially considering safety factors, as the patient is mobilized on the nursing unit. The patient is seen in collaboration with the rehab team. I met with the charge nurse fran navaing overall nursing care concerns. We also met with the patient and his , as well as our manager of case, patient's bedside nurse, reviewing the patient's current [...] Notes document close and ongoing Physiatric involvement; owas-ff-vnkd vis its , professionally assessing the Patient, [...] time, as well as time communicating with [facility] patient and treatment team as discussed above. Signed: Pramod Salinas MD Portions of this chart may have been created with LaunchBit voice recognition software. Occasi onal wrong-word or sound-alike substitutions may have occurred due to the inherent gupta itations of voice recognition software. Please read the chart carefully and recognize, using context, where these substitutions have occurred. ill, Pramod Tobar MD - 06/29/2018 4:33 PM PDT Pvri-bq-Jage Rehabilitation Medicine Daily Progress Note Date: 06/29/18 [...] cognitive impairment Current Meds: Current Facility-Administered Medications: aocnddyl-admaygixmuln-jbsgRPKfyw (TRIUMEQ) 600-50-300 mg per tablet 1 tablet [...] speech therapy, case management, and social media intern #Rehab - -Continue PT for gait, mobility -Continue OT for ADL's, toileting, adaptive equipment -Continue EMERGENCY DEPARTMENT MANAGER for cognition, swallow -Continue SW for discharge [...] was provided to the patient. Each steam plant records clerk is addressing this as the patient advances [...] board transfers. I met with the patient's manager of case and reviewed the current rehabilitation plan of [...] this chart may have been created with LaunchBit voice recognition software. Occasi onal wrong-word or sound-alike substitutions may have occurred due to the inherent gupta itations of voice recognition software. Please read the chart carefully and recognize, using context, where these substitutions have occurred. ill, Pramod Tobar MD - 06/28/2018 4:46 PM PDT Mabe-ix-Sg[facility] Rehabilitation Medicine Daily Progress Note Date: 06/28/18 [...] cognitive impairment Current Meds: Current Facility-Administered Medications: botdldfu-jwdqeuekjhby-gyfjRWEysm (TRIUMEQ) 600-50-300 mg per tablet 1 tablet [...] speech therapy, case management, and social media intern #Rehab - -Continue PT for gait, mobility -Continue OT for ADL's, toileting, adaptive equipment -Continue EMERGENCY DEPARTMENT MANAGER for cognition, swallow -Continue SW for discharge [...] Note documents close and ongoing Physiatric involvement; hljd-ao-jbpl vis its , professionally assessing the Patient [...] needs, o r more likely discharge to care home facility. He stated understanding of this. Please see the Rehabilitation Interdisciplinary Team Conference notes for further details regarding rehabilitation team discussion and plan. Following team conference I met with the patient and discussed the above. Safety with self-care and mobility were discussed. The patient's current rehabilitation plan of care and projected discharge destination were discussed and reviewed with the patient and our manager of case. She is collaborating with the patient's support [...] this chart may have been created with LaunchBit voice recognition software. Occasi onal wrong-word or sound-alike substitutions may have occurred due to the inherent gupta itations of voice recognition software. Please read the chart carefully and recognize, using context, where these substitutions have occurred. [facility] - 06/27/2018 4:47 PM PDT Nsrb-bt-Yxhr Rehabilitation Medicine Daily Progress Note Date: 06/27/18 [...] cognitive impairment Current Meds: Current Facility-Administered Medications: mwatccmf-vnkvwmwqijmw-arvjQBDamh (TRIUMEQ) 600-50-300 mg per tablet 1 tablet [...] speech therapy, case management, and social media intern #Rehab - -Continue PT for gait, mobility -Continue OT for ADL's, toileting, adaptive equipment -Continue EMERGENCY DEPARTMENT MANAGER for cognition, swallow -Continue SW for discharge [...] pain complaints. I met with the patient's manager of case and reviewed the current rehabilitation plan of [...] Notes document close and ongoing Physiatric involvement; zbxm-um-rvzn vis its , professionally assessing the Patient, both Medically and Functionally, with the empha sis on the important interactions between our Patient's current clinical status, especially issues/barriers that may impact on the Rehabilitation Team's treatment and progress toward o medical and functional goals. I opine that this is important, so we may maximize our Patient's capacity to benefit from [facility] Comprehensive Inpatient Medical Rehabilitation process. The [...] the full inpatient rehabilitation treatment team in [facility] is planned. Total time: 37 minutes. I spent greater than 50% of the time regarding patient care and co ordination of the Medical Rehabilitation Team treatment focus addressing these patient care needs on this date, including nursing unit/floor time, as well as time communicating with [facility] patient and treatment team as discussed above. Signed: Pramod Salinas MD Portions of this chart may have been created with LaunchBit voice recognition software. Occasi onal wrong-word or [...] might be different from the origi nal. Btdb-py-Rcwq Rehabilitation Medicine Daily Progress Note Date: 06/24/18 [...] virus infection) Current Meds: Current Facility-Administered Medications: wtshkhvj-ldpctevlpkaa-yitqBFKybi (TRIUMEQ) 600-50-300 mg per tablet 1 tablet [...] speech therapy, case management, and social media intern #Rehab - -Continue PT for gait, mobility -Continue OT for ADL's, toileting, adaptive equipment -Continue EMERGENCY DEPARTMENT MANAGER for cognition, swallow -Continue SW for discharge [...] Notes document close and ongoing Physiatric involvement; vbmi-dg-hujo vis its , professionally assessing the Patient, [...] continuing to coordinate and collaborate with the [facility] nursing staff to complement their therapy treatment [...] bowel and bladder, and coordination with the Talent Director managing medical co -morbidities; including Coordinate with [...] term memory, problem solving and carry over. 911 Telecommunicator Respiratory Therapy Please see each of the [...] of function to allow discharge to the [facility] at the optimal level of function. Current [...] am is advanced. Specific short term and emt intermediate Rehabilitation Team Treatment Goals will be developed, sh ared and implemented in collaboration with our patient and family/caregivers. The Associate Professor Of Psychology is the church Rehab steam plant records clerk interfacing with them. Rehab Potential: Good Expected [...] Tobar MD - 06/23/2018 12:33 PM PDT Mgjs-zh-Detg Rehabilitation Medicine Daily Progress Note Date: 06/23/18 [...] virus infection) Current Meds: Current Facility-Administered Medications: ksuoihhh-rsmdlvnaojct-vjdiBMWqbu (TRIUMEQ) 600-50-300 mg per tablet 1 tablet [...] speech therapy, case management, and social media intern #Rehab - -Continue PT for gait, mobility -Continue OT for ADL's, toileting, adaptive equipment -Continue EMERGENCY DEPARTMENT MANAGER for cognition, swallow -Continue SW for discharge [...] I met with our patient and the manager of case, and we reviewed the overall plan of care and p rojected discharge destination. Note: My Progress Notes document close and ongoing Physiatric involvement; xyfu-gq-vthw vi sits, professionally assessing the Patient, both [...] continuing to coordinate and collaborate with the [facility] nursing staff to complement their therapy treatment [...] up with the patient's bedside nurse, and manager of case/social science teacher. Total time: 37 minutes. I spent greater than 50% of the time regarding patient care and co ordination of the Medical Rehabilitation Team treatment focus addressing these patient care needs on this date, including nursing unit/floor time, as well as time communicating with [facility] patient and treatment team as discussed above. [...] patient is in a one-story house in [facility] with his wi fe. There is a ramp installed and otherwise there are 6 steps to enter the building. 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 He also served in the [employer] for 3-1/2 years. He is independent with [...] bowel and bladder, and coordination with the Talent Director management medical comorbid ities. Therapies: Physical Therapy [...] of the Comprehensive Medical Rehabilitation Program.) Clinical Fire Range Technician Pharmacist Goals: Medical stability and safety with [...] collaboration with our patient and family/caregivers. The Associate Professor Of Psychology is the church Rehab steam plant records clerk interfacing with them. Rehab potential is good. Estimated length of stay: 14 days. Discharge Plan: Discharge to premorbid independent living setting with the supportive car e of family/caregivers and community resources. Signed: Pramod Salinas MD 06/23/2018 12:34 Portions of this chart may have been created with LaunchBit voice recognition software. Occasi onal wrong-word or [...] [address] | [place] | [phone] | | [facility] | | [address] | | | - LABORATORY | | [...] [address] | [place] | [phone] | | [facility] | | [address] | | | - LABORATORY | | [...] [address] | [place] | [phone] | | [facility] | | [address] | | | - LABORATORY | | [...] + | [facility] | [address] | [place] | [phone] | | [facility] | | [address] | | | - LABORATORY | | [...] [address] | [place] | [phone] | | [facility] | | [address] | | | - LABORATORY | | [...] [address] | [place] | [phone] | | [facility] | | [address] | | | - LABORATORY | | [...] | | POC | | | [facility] | | | | | | MEDICAL [...] [address] | [place] | [phone] | | [facility] | | [address] | | | - LABORATORY | | [...] + | [facility] | [address] | [place] | [phone] | | [facility] | | [address] | | | - LABORATORY | | [...] [address] | [place] | [phone] | | [facility] | | [address] | | | - LABORATORY | | [...] [address] | [place] | [phone] | | [facility] | | [address] | | | - LABORATORY | | [...] + | [facility] | [address] | [place] | [phone] | | [facility] | | [address] | | | - LABORATORY | | [...] [address] | [place] | [phone] | | [facility] | | [address] | | | - LABORATORY | | [...] [address] | [place] | [phone] | | [facility] | | [address] | | | - LABORATORY | | [...] + | [facility] | [address] | [place] | [phone] | | [facility] | | [address] | | | - LABORATORY | | [...] mL/min/1.73m2 | [facility] | | | [facility] | RATE,ESTIMATED | | MEDICAL | | | | mL/min/1.70h0Fazd than | | CENTER - | | [...] [address] | [place] | [phone] | | [facility] | | [address] | | | - LABORATORY | | [...] [address] | [place] | [phone] | | [facility] | | [address] | | | - LABORATORY | | [...] + | [facility] | [address] | [place] | [phone] | | [facility] | | [address] | | | - LABORATORY | | [...] | | POC | | | [facility] | | | | | | MEDICAL [...] ST. | [address] | [place] | [phone] | | [facility] | | [address] | | | - LABORATORY | | [...] [address] | [place] | [phone] | | [facility] | | [address] | | | - LABORATORY | | [...] [address] | [place] | [phone] | | [facility] | | [address] | | | - LABORATORY | | [...] + | [facility] | [address] | [place] | [phone] | | [facility] | | [address] | | | - LABORATORY | | [...] + | [facility] | [address] | [place] | [phone] | | [facility] | | [address] | | | - LABORATORY | | [...] [address] | [place] | [phone] | | [facility] | | [address] | | | - LABORATORY | | [...] + | [facility] | [address] | [place] | [phone] | | [facility] | | [address] | | | - LABORATORY | | [...] [address] | [place] | [phone] | | [facility] | | [address] | | | - LABORATORY | | [...] [address] | [place] | [phone] | | [facility] | | [address] | | | - LABORATORY | | [...] + | [facility] | [address] | [place] | [phone] | | [facility] | | [address] | | | - LABORATORY | | [...] + | [facility] | [address] | [place] | [phone] | | [facility] | | [address] | | | - LABORATORY | | [...] | | POC | | | [facility] | | | | | | MEDICAL [...] [address] | [place] | [phone] | | [facility] | | [address] | | | - LABORATORY | | [...] + | [facility] | [address] | [place] | [phone] | | [facility] | | [address] | | | - LABORATORY | | [...] + | [facility] | [address] | [place] | [phone] | | [facility] | | [address] | | | - LABORATORY | | [...] [address] | [place] | [phone] | | [facility] | | [address] | | | - LABORATORY | | [...] ST. | [address] | [place], [place] | [phone] | | [facility] | | [address] | | | - LABORATORY | | [...] + | [facility] | [address] | [place] | [phone] | | [facility] | | [address] | | | - LABORATORY | | [...] | | POC | | | [facility] | | | | | | MEDICAL [...] ST. | [address] | [place], [place] | [phone] | | [facility] | | [address] | | | - LABORATORY | | [...] [address] | [place] | [phone] | | [facility] | | [address] | | | - LABORATORY | | [...] + | [facility] | [address] | [place] | [phone] | | [facility] | | [address] | | | - LABORATORY | | [...] | mL/min/1.73m2 | CAT | | | TRINID[place]IAN | RATE,ESTIMATED | | MEDICAL | | | | mL/min/1.70w2Argr than | | CENTER - | | [...] | 9.4 | 8.3 - 10.5 | [facility] | | | | | mg/dL | [...] [address] | [place] | [phone] | | [facility] | | [address] | | | - LABORATORY | | [...] + | [facility] | [address] | [place] | [phone] | | [facility] | | [address] | | | - LABORATORY | | [...] [address] | [place] | [phone] | | [facility] | | [address] | | | - LABORATORY | | [...] | + + + + + | [facility] | [address] | [place] | [phone] | | [facility] | | [address] | | | - LABORATORY | | [...] + | HIV (human immunodeficiency virus infection) ([facility]) Asymptomatic human | | immunodeficiency virus (HIV) infection status | + + | Ischemic cerebrovascular accident (CVA) ([facility]) | + + | IDDM (insulin dependent diabetes mellitus) ([facility]) Type II or unspecified type [...] | 1 tablet | | | | kmnvofzc-ndugbfunzlvf-xpwdOXRxuz | | 18 8:34 | | | [...] | | | | | NPO, Daytime 0542-6777 Use NIGHT | | | | | | | DOSE for doses scheduled: | | | | | | | HS, 3AM, Nighttime 5754-2961, | | | | | | | [...]
--- OUTSIDE RECORDS SUMMARY | ~2019-08-11 | XMS | Encounter Summary ---
Demographics + + + | Address | [address] | | | [place] [address] | + + + | Home Phone | | + + + | Preferred Language | Unknown | + + + | Marital Status | | + + + | Episcopalian Affiliation | 1038 | + + + | Race | Unknown | + + + | Ethnic Group | Unknown | + + + Author + + + | Author | [facility] | | | and [place] | + + + | Organization | [facility] | | | and [place] | + + + | Address | Unknown | + + + | Phone | Unavailable | + + + Support + + + + + | Name | Relationship | Address | Phone | + + + + + | Aileen Nelson | ECON | [address] | | | | | [place] | | | | | [address] | | + + + + + Care Team Providers + +------+ + | Care Container Washer Machine Name | Role | Phone | [...] Ted Navarro | | | | | [place], [place] | [place] | | | | | [address] | [address] | | | | | [phone] | [phone] | | | | | | | [...]
--- OUTSIDE RECORDS SUMMARY | ~2019-08-11 | XMS | Encounter Summary ---
Demographics + + + | Address | [address] | | | [place] [address] | + + + | Home Phone [...] Author | [facility] | | | and [...] Aileen Nelson | ECON | [address] | | | | | [place] | | | | | [address] | | + + + + + Care Team Providers + +------+ + | Care Real Estate Utilization Officer Name | Role | Phone | + [...] Ted Navarro | | | | | [place], [place] | [place] | | | | | [address] | [address] | | | | | [phone] | [phone] | | | | | | | [...]
--- OUTSIDE RECORDS SUMMARY | ~2019-08-11 | XMS | Encounter Summary ---
Demographics + + + | Address | [address] [place] [address] | | | [place] [address] | + + + | Home Phone [...] + + + | Author | [facility] | + + + | Organization | [facility] | + + + | Address | Unknown | + + + | Phone | Unavailable | + + + Support + + + + + | Name | Relationship | Address | Phone | + + + + + | Aileen Nelson | ECON | [address] | | | | | [place] [address] | | + + + + + Care Team Providers + +------+ + | Care Security Systems Manager Name | Role | Phone | [...] Patient | | | | [place], [place] | [place] [address] | | | | | [address] | [phone] | | | | | [phone] | | | +--------+ + + + [...]
--- OUTSIDE RECORDS SUMMARY | ~2019-08-11 | XMS | Encounter Summary ---
Demographics + + + | Address | [address] [place] [address] | | | [place] [address] | + + + | Home Phone | | + + + | Preferred Language | Unknown | + + + | Marital Status | Single | + + + | Pentecostal Affiliation | PEN | + + + | Race | White | + + + | Ethnic Group | Not or | + + + Author + + + | Author | [facility] | + + + | Organization | [facility] | + + + | Address | Unknown | + + + | Phone | Unavailable | + + + Support + + + + + | Name | Relationship | Address | Phone | + + + + + | Aileen Nelson | ECON | [address] | | | | | [place] [address] | | + + + + + Care Team Providers + +------+ + | Care Fellmongering Machine Operator Name | Role | Phone [...] | 2009 | Referral | Services at [facility] | [facility] | | | | Order | [address] [facility] CENTER P3-ID [id number] | | | | | Nayely An Mailcode: | [address] | | | | | [address] [facility] | [place] [address] | | | | | [place], [place] | [phone] | | | | | [address] | | | | | | [phone] | | | +--------+ + + + [...]
--- OUTSIDE RECORDS SUMMARY | ~2019-08-11 | XMS | Encounter Summary ---
Demographics + + + | Address | [address] [place] [address] | | | [place] [address] | + + + | Home Phone [...] + + + | Author | [facility] | + + + | Organization | [facility] | + + + | Address | Unknown | + + + | Phone | Unavailable | + + + Support + + + + + | Name | Relationship | Address | Phone | + + + + + | Aileen Nelson | ECON | [address] | | | | | [place] [address] | | + + + + + Care Team Providers + +------+ + | Care Ios Software Engineer Name | Role | Phone | [...] [place] | | | | | | [address] | | | | | | [phone] | | | | | | | [...]
--- OUTSIDE RECORDS SUMMARY | ~2019-08-11 | XMS | Encounter Summary ---
Demographics + + + | Address | [address] [place] [address] | | | [place] [address] | + + + | Home Phone | | + + + | Preferred Language | Unknown | + + + | Marital Status | Single | + + + | Samaritan Affiliation | PEN | + + + | Race | White | + + + | Ethnic Group | Not or | + + + Author + + + | Author | [facility] | + + + | Organization | [facility] | + + + | Address | Unknown | + + + | Phone | Unavailable | + + + Support + + + + + | Name | Relationship | Address | Phone | + + + + + | Aileen Nelson | ECON | [address] | | | | | [place] [address] | | + + + + + Care Team Providers + +------+ + | Care Library Sales Consultant Name | Role | Phone | + +------+ + | Romain Harrington MD | PCP | | + +------+ + Encounter Details +--------+ + + + + | Date | Type | Department | Care Team | Description | +--------+ + + + + | 05/20/ | Outside | Diagnostic | Zoila Momin, | | | 2011 | Referral | Radiology at [facility] | MD DIONNE Oates | | | | Order | [address] [place] | [facility] [address] | | | | | [address] Mailcode: | [address] | | | | | [address] Phys[address] | [address] [place], | | | | | [place], | [place] [address] | | | | | [place] [address] | [phone] | | | | | [phone] | | | +--------+ + + + [...]
--- OUTSIDE RECORDS SUMMARY | ~2019-08-11 | XMS | Encounter Summary ---
Demographics + + + | Address | [address] [place] [address] | | | [place] [address] | + + + | Home Phone | | + + + | Preferred Language | Unknown | + + + | Marital Status | Single | + + + | Taoist Affiliation | PEN | + + + [...] | | | | | [place] [address] | | + + + + + Care Team Providers + +------+ + | Care Family Assessment Worker Name | Role | Phone | [...] | | Results for this | | [address] | e | 6:03 PM | | [...] POINT | | | GLUCOSE, | ID: [id number]: | | OF CARE | | | POC | [id number] Naida Lyles | | TESTING | | | |School Cafeteria Cook Head: [id number] Naida Lyles | | | | | [...] | + +---------+ + + SCROTAL ULTRASOUND [id number] (05/08/2015 6:03 PM PDT) + + | Specimen | + + | | + + + + + | Narrative | Performed At | + + + | Name: | [facility] | | ARANDA,SARTHAK E | DEPARTMENT OF | | Phys: Bruno Gray MD | RADIOLOGY | | | | | : 1950 Age: 64 Sex: M | | | Acct: [id number] Loc: 426 2 | | | | | | Exam Date: 05/08/2015 Status: ADM IN | | | Radiology No: [id number] | | | Unit No: | | | [id number] EXAM# TYPE/EXAM | | | RESULT | | | [id number] US/SCROTAL ULTRASOUND [id number] | | | EXAM: SCROTAL ULTRASOUND | [...] | | | Transcribed Date/Time: 05/08/2015 (1803) Lithoduplicator Operator: | | | SPEECHQ PAGE 1 Signed Report | | | | | + + + + + | Procedure Note | + + | Interface, Radiology Results - 05/08/2015 6:04 PM PDT | | Name: SARTHAK ARANDA | | Phys: Bruno Gray MD : | | 1950 Age: 64 Sex: M Acct: [id number] | | Loc: 426 2 Exam Date: 05/08/2015 | | Status: ADM IN Radiology No: [id number] | | Unit No: [id number] EXAM# TYPE/EXAM | | RESULT [id number] US/SCROTAL ULTRASOUND | | [id number] EXAM: SCROTAL ULTRASOUND | | CLINICAL HISTORY: [...] | Transcribed Date/Time: | | 05/08/2015 (1803) Lithoduplicator Operator: GABRIELQ PAGE 1 Signed Report | | [...] | | | | Transcribed Date/Time: 05/08/2015 (2253) | | Lithoduplicator Operator: SPEECHQ | | | | | | [...] POINT | | | GLUCOSE, | ID: [id number]: | | OF CARE | | | POC | [id number] Raisa Jesus Manuel | | TESTING | | | |School Cafeteria Cook Head: [id number] Raisa Ken | | | | | [...] POINT | | | GLUCOSE, | ID: [id number]: | | OF CARE | | | POC | [id number] Raisa Ken | | TESTING | | | |School Cafeteria Cook Head: [id number] Raisa Ken | | | | | [...] [facility] POINT | | | GLUCOSE, | [id number]: | | OF CARE | | | POC | [id number] Carie Mueller | | TESTING | | [...] [facility] | | | PLASMA | to bi application developer: ADD ON | | MEDITECH | | | (LAB) | PREFERRED | | LABORATORY | | + + + + + + + + | Specimen | + + | | + + + + + | Narrative | Performed At | + + + | Comments to bi application developer: ADD ON PREFERRED | [facility] | [...] [facility] | | | PLASMA | to bi application developer: ADD ON | mmol/L | MEDITECH | | | (LAB) | PREFERRED | | LABORATORY | | + + + + + + + + | Specimen | + + | | + + + + + | Narrative | Performed At | + + + | Comments to bi application developer: ADD ON PREFERRED | [facility] | [...]
--- OUTSIDE RECORDS SUMMARY | ~2019-08-11 | XMS | Encounter Summary ---
Demographics + + + | Address | [address] | | | [place] [address] | + + + | Home Phone | | + + + | Preferred Language | Unknown | + + + | Marital Status | | + + + | Hoahaoism Affiliation | 1038 | + + + | Race | Unknown | + + + | Ethnic Group | Unknown | + + + Author + + + | Author | [facility] | | | and [place] | + + + | Organization | [facility] | | | and [place] | + + + | Address | Unknown | + + + | Phone | Unavailable | + + + Support + + + + + | Name | Relationship | Address | Phone | + + + + + | Aileen Nelson | ECON | [address] | | | | | [place] | | | | | [address] | | + + + + + Care Team Providers + +------+ + | Care Electrical Contractor Name | Role | Phone | + +------+ + | Jericho Cao MD | PCP | | + +------+ + Encounter Details +--------+ + + + + | Date | Type | Department | Care Team | Description | +--------+ + + + + | 09/16/ | Orders Only | [facility] | Kwauk Mendoza MD | | | 2017 | | [address] | [address] | | | | | [place], [place] | [place] | | | | | [address] | [address] | | | | | [phone] | [phone] | | | | | | | [...]
--- OUTSIDE RECORDS SUMMARY | ~2019-08-11 | XMS | Encounter Summary ---
Demographics + + + | Address | [address] [place] [address] | | | [place] [address] | + + + | Home Phone [...] | | | | | [place] [address] | | + + + + + Care Team Providers + +------+ + | Care Ict Account Manager Name | Role | Phone | [...] | | | | Procedures | on [facility] | [facility] | | | | | PET SKULL | V A MEDICAL | [facility] | | | | | BASE TO | CENTER | Pavilion | | | | | [facility] | [address] | [address] | | | | | | [address] | [address] | | | | | | [address] | [place], [place] | | | | | | [place], | [address] | | | | | | [place] [address] | Phone: | | | | | | Phone: | [phone] | | | | | | [phone] | Fax: | | | | | | Fax: | [phone] | | | | | | [phone] | | +--------+--------+ + + + + [...] [address] | | | | | | [place], [place] | | | | | | [address] | | | | | | [phone] | | | +--------+ + + + [...]
--- OUTSIDE RECORDS SUMMARY | ~2019-08-11 | XMS | Clinical Summary ---
Demographics + + + | Address | [place] [address] | + + + | Home Phone | | + + + | Preferred Language | Unknown | + + + | Marital Status | Unknown | + + + | Methodist Affiliation | Unknown | + + + | Race | Unknown | + + + | Ethnic Group | Unknown | + + + Author + + + | Author | [facility] (Historical as of | | | 05-06-19) | + + + | Organization | [employer] [facility] (Historical as of | | | 05-06-19) | + + + | Address | Unknown | + + + | Phone | Unavailable | + + + Care Team Providers + +------+ + | Care Pharmacy Operations Manager Name | Role | Phone | + +------+ + PP | Unavailable | + +------+ + Allergies Not on File Current Medications Not on file Active Problems Not on file Social History + +-------+ +--------+------+ | Tobacco [...] on file | | + + + Plan of Treatment Not on file Results Not on filefrom Last 3 Months"
--- OUTSIDE RECORDS SUMMARY | ~2019-08-11 | XMS | Encounter Summary ---
Demographics + + + | Address | [address] [place] [address] | | | [place] [address] | + + + | Home Phone | | + + + | Preferred Language | Unknown | + + + | Marital Status | Single | + + + | Latter Day Affiliation | PEN | + + + | Race | White | + + + | Ethnic Group | Not or | + + + Author + + + | Author | [facility] | + + + | Organization | [facility] | + + + | Address | Unknown | + + + | Phone | Unavailable | + + + Support + + + + + | Name | Relationship | Address | Phone | + + + + + | Aileen Nelson | ECON | [address] | | | | | [place] [address] | | + + + + + Care Team Providers + +------+ + | Care Production Welding Supervisor Name | Role | Phone | [...] | | | | Procedures | on [place] | [facility] | | | | | PET SKULL | V A MEDICAL | [facility] | | | | | BASE TO | CENTER | Pavilion | | | | | [facility] | [address] | [address] | | | | | | [address] | [address] | | | | | | [address] | [place], [place] | | | | | | [place], | [address] | | | | | | [place] [address] | Phone: | | | | | | Phone: | [phone] | | | | | | [phone] | Fax: | | | | | | Fax: | [phone] | | | | | | [phone] | | +--------+--------+ + + + + Encounter Details +--------+ + + + + | Date | Type | Department | Care Team | Description | +--------+ + + + + | 10/15/ | Outside | Nuclear Medicine | Deshaun Warren, | | | 2011 | Referral | at [facility] [address] | MD DIONNE Manzano A | | | | Order | [facility] | [facility] [address] | | | | | Mailcode: [id number] [facility] | | | | | [facility] | [address] | | | | | [place], [place] | [place] [address] | | | | | [address] | [phone] | | | | | [phone] | | | +--------+ + + + [...]
--- OUTSIDE RECORDS SUMMARY | ~2019-08-11 | XMS | Encounter Summary ---
Demographics + + + | Address | [address] [place] [address] | | | [place] [address] | + + + | Home Phone [...] | | | | | [place] [address] | | + + + + + Care Team Providers + +------+ + | Care Chief Security And Safety Officer Name | Role | Phone | + +------+ + PCP | Unavailable | + +------+ + Encounter Details +--------+ + + + + | Date | Type | Department | Care Team | Description | +--------+ + + + + | 10/13/ | Hospital | Diagnostic Imaging | | | | 2009 | Encounter | Services at [facility] | | | | | | [address] | | | | | | N[place] Mailcode: | | | | | | [address] [facility] | | | | | | [place], [place] | | | | | | [address] | | | | | | [phone] | | | +--------+ + + + [...]
--- OUTSIDE RECORDS SUMMARY | ~2019-08-11 | XMS | Encounter Summary ---
Demographics + + + | Address | [address] | | | [place] [address] | + + + | Home Phone | | + + + | Preferred Language | Unknown | + + + | Marital Status | | + + + | Yazdanism Affiliation | 1038 | + + + | Race | Unknown | + + + | Ethnic Group | Unknown | + + + Author + + + | Author | [facility] | | | and [place] [...] | Aileen Nelson | ECON | [address] | | | | | [place] | | | | | [address] | | + + + + + Care Team Providers + +------+ + | Care Customer Service Administrator Name | Role | Phone | [...] [address] | | | | | [place], [place] | [place] | | | | | [address] | [address] | | | | | [phone] | [phone] | | | | | | | [...]
--- OUTSIDE RECORDS SUMMARY | ~2019-08-11 | XMS | Encounter Summary ---
Demographics + + + | Address | [address] [place] [address] | | | [place] [address] | + + + | Home Phone [...] | | | | | [place] [address] | | + + + + + Care Team Providers + +------+ + | Care Sole Edge Inker Machine Name | Role | Phone | [...] [address] | [place], | | | 03/22/ | | [facility] | [place] [address] | | | 2011 | | [place], [place] | [phone] | | | | | [address] | | | | | | [phone] | Loni Gardner MD | | | | | | [address] | | | | | | Street [place], [place] | | | | | | [address] | | | | | | | [...] 03/22/2012 Thank you for coming to the [facility] ED. You have been diagnosed [...] doctor if you can take an o uwo-zdv-xluxztm medicine. Rest and protect the sore area. [...] Pain: After Your Visit", log into your [employer] a ccount at [email or web address] You can enter V293 in the [employer] Library" search b ox. Not on [employer] Review the Vital Art and Sciencehart section of your After Visit Summary for directions on ho w to sign up. [id number] [employer]. Care instructions adapted under license by [facility]. This care instruction is for use with your licensed healthcar e professional. If you have questions about a medical condition or this instruction, always ask your healthcare professional. [employer] disclaims any warranty or liabili ty for your use of this information. Content Version: 9.3.81633; Last Revised: 2010 documented in this encounter [...] Provider: No primary provider on file. Primary Forensic Examiner: [facility] I was paged by ER to see Mr. Sarthak Nelson for ICD check. Sarthak Nelson is a 61 y.o . Male with ICD who came to ED and reports that his ICD fired. No diagnosis found. Generator: Device: [employer] Model #: [id number] 100 [id number] Serial #: [id number] Implanted: 12/29/2010 Leads: RV: GUIDANT Implant date: 12/29/2010 ICD PROGRAMMING: Alberto Mode: VVI Lower Rate: 40 bpm TACHY PARAMETERS: VT Detection Rate: 180, Therapy: ATP X3, CV: 5J, 41 JX2. Vf Detection Rate: 210. Therapy: CV: 5J, 41J X8. Patient is not pacer dependent. Today's underline rhythm is sinus 88. PACING PERCENTAGE: PREPAROLE COUNSELING AIDE: 0% EPISODES detected today: 0 Last NSVT [...] today. Recommendations: Cardiology consult. Zandra Long PA-C [facility] DEPARTMENT: [id number]- CAR LAMPS TESTER AND INSPECTOR EP [facility] Place of Service: 14779 - ED Date of Service: 03/21/2012 CSN: [id number] Suggested Level of Care: 38120 - Programming device evaluation; single lead implantable [...] BRENDA | [address] | [place], [place] | | | REBA CARRANZA OF CARE | [address] | [address] | | | TESTS | | | [...] | | | | | | | <rr=080....... Negative: | | | | | | [...] CHF. | | | | | | >yh=511....... Highly | | | | | | consistent with CHF. | | | | | | Patients with BNP>jg=216 | | | | | | | [...] | + + + + + | [facility] | [address] | [place] [address] | | | PATHOLOGY | [address] [...] | + + + + + | [facility] DEPARTMENT | [address] | [place] [address] | | | PATHOLOGY | [address] [...] view image for the detailed interpretation from [employer] results. | CARDIOLOGY | + + + + + + + + | Performing | Address | City/State/Zipcode | Phone Number | | Organization | | | | + + + + + | [facility] | [address] | [place], [place] | | | CARDIOLOGY | [address] | [address] | | + + + + + [...] G[facility]IERREZ | [address] | [place], [place] | | | REBA CARRANZA OF [facility] | [address] | [address] | | | TESTS | | | [...] | + + + + + | [facility] DEPARTMENT OF | [address] | [place] [address] | | | PATHOLOGY | [address] [...] | + + + + + | [facility] DEPARTMENT OF | [address] | [place] [address] | | | PATHOLOGY | [address] [...] | | | DEPARTMENT | | | [facility]EN[facility] | | | OF | | [...] | + + + + + | [facility] | [address] | [place] [address] | | | PATHOLOGY | [address] [...] | + + + + + | [facility] DEPARTMENT | [address] | [place] [address] | | | PATHOLOGY | [address] | | | + + + + + 12 LEAD ECG (03/21/2012 4:04 PM PDT) + + + + + + | Component | Value | Ref Range | Performed | Pathologist | | | | | At | Signature | + + + + + + | VENTRICULAR | 77 | BPM | [facility]PT | | | RATE [...] MEZA | | | | | | (8144) on 03/22/2012 | | | | | | 3:31:04 PM | | | | + + + + + + + + | Specimen | + + | | + + + + + | Narrative | Performed At | + + + | Please click | [facility] | | on view image for the detailed interpretation from [employer] results. | CARDIOLOGY | + + + + + + + + | Performing | Address | City/State/Zipcode | Phone Number | | Organization | | | | + + + + + | [facility] | [address] | [place], [place] | | | CARDIOLOGY | [address] | [address] | | + + + + + [...]
--- OUTSIDE RECORDS SUMMARY | ~2019-08-11 | XMS | Encounter Summary ---
Demographics + + + | Address | [address] [place] [address] | | | [place] [address] | + + + | Home Phone [...] Author | [facility] | + + + | Organization | [facility] | + + + | Address | Unknown | + + + | Phone | Unavailable | + + + Support + + + + + | Name | Relationship | Address | Phone | + + + + + | Aileen Nelson | ECON | [address] | | | | | [place] [address] | | + + + + + Care Team Providers + +------+ + | Care Copy Writer Name | Role | Phone | + +------+ + PCP | Unavailable | + +------+ + Encounter Details +--------+ + + + + | Date | Type | Department | Care Team | Description | +--------+ + + + + | 01/19/ | Hospital | Dermatopathology | | | | 2011 | Encounter | [address] | | | | | | Mailcode: CH16D | | | | | | [facility] | | | | | | and Healing, | | | | | | Building [address], | | | | | | Floor [place], [place] | | | | | | [address] | | | | | | [phone] | | | +--------+ + + + [...] | | | | | | analysis ([facility], | | | | | | [id number],02/16/12): [...] CD10 | | | | | | [id number] CD14 CD15 CD16 | | | | | | CD19 CD20 CD25 [id number] | | | | | | CD38 CD45 CD56 CD58 | | | | | | CD64 CD71 [id number] | | | | | | sKappa sLambda | | | | | | HLA-DR CD57 CD94 | | | | | | [id number] | | | | | | [id number] | | | | | | [id number] (Analyte | | | | | | specific reagents are | | | | | | used in many laboratory | | | | | | tests necessary | | | | | | [facility] | | | | | | and [...] Medical | | | | | | [place], [place] | | | | | | [...] | + + + + + | [facility] | [address] | [place] [address] | | | PATHOLOGY | [address] [...] | | | | | | of [facility] back for | | | | | | [...] immunoreactant. | | | | | | M:jyi01/27/12 My | | | | | | [...] + + + | [facility] | Mailcode MAC[address] | [place] [address] | | | DERMATOPATHOLOGY | [address] | | | + + + + + documented in this encounter Visit Diagnoses Not on filedocumented in this encounter"
--- OUTSIDE RECORDS SUMMARY | ~2019-08-11 | XMS | Encounter Summary ---
Demographics + + + | Address | [address] [place] [address] | | | [place] [address] | + + + | Home Phone [...] | | | | | [place] [address] | | + + + + + Care Team Providers + +------+ + | Care Band Log Mill And Carriage Operator Name | Role | Phone | + +------+ + PCP | Unavailable | + +------+ + Encounter Details +--------+ + + + + | Date | Type | Department | Care Team | Description | +--------+ + + + + | 05/07/ | Results | NON-[facility] | [facility] | | | 2014 | Only | Department | [address] | | | | | | [address] [place] | | | | | | [place] [address] | | | | | | [phone] | | | | | | | [...] POINT | | | GLUCOSE, | ID: [id number]: | | OF CARE | | | POC | [id number] Francoise LaRchanda | | TESTING | | | |Sliver Former: [id number] Brasrey LaRchanda | | | | | [...] POINT | | | GLUCOSE, | ID: [id number]: | | OF CARE | | | POC | [id number] Hochmayr | | TESTING | | | [...] POINT | | | GLUCOSE, | ID: [id number]: | | OF CARE | | | POC | [id number] Hochmayr | | TESTING | | | [...]
--- OUTSIDE RECORDS SUMMARY | ~2019-08-11 | XMS | Encounter Summary ---
Demographics + + + | Address | [address] [place] [address] | | | [place] [address] | + + + | Home Phone | | + + + | Preferred Language | Unknown | + + + | Marital Status | Single | + + + | Zoroastrian Affiliation | PEN | + + + [...] | | | | | [place] [address] | | + + + + + Care Team Providers + +------+ + | Care Lap Machine Operator Name | Role | Phone | + +------+ + PCP | Unavailable | + +------+ + Encounter Details +--------+ + + + + | Date | Type | Department | Care Team | Description | +--------+ + + + + | 10/13/ | Results | Registration [address] | [facility] | | | 2009 | Only | [address] | [phone] | | | | | Rd Mailcode: [address] | | | | | | [place], [place] | | | | | | [address] | | | | | | [phone] | | | +--------+ + + + [...] + + | Performing | Address | City/State/[place] Service Unitcode | Phone Number | | Organization | | | | + +---------+ + + | [facility] DEPARTMENT OF | | | | | RADIOLOGY | | | | + +---------+ + + documented in this encounter Visit Diagnoses Not on filedocumented in this encounter"
--- OUTSIDE RECORDS SUMMARY | ~2019-08-11 | XMS | Encounter Summary ---
Demographics + + + | Address | [address] [place] [address] | | | [place] [address] | + + + | Home Phone | | + + + | Preferred Language | Unknown | + + + | Marital Status | Single | + + + | Congregational Affiliation | PEN | + + + [...] | | | | | [place] [address] | | + + + + + Care Team Providers + +------+ + | Care Sausage Grinder Name | Role | Phone | + [...] [address] | | | | | | [facility] [address] | | | | | | [phone] | | | | | | | [...] of | | | | | | [facility] for | | | | | [...] + + | [facility] | [address] | [place] [address] | | | DERMATOPATHOLOGY | [address] | | | + + + + + documented in this encounter Visit Diagnoses Not on filedocumented in this encounter"
--- OUTSIDE RECORDS SUMMARY | ~2019-08-11 | XMS | Encounter Summary ---
Demographics + + + | Address | [address] [place] [address] | | | [place] [address] | + + + | Home Phone | | + + + | Preferred Language | Unknown | + + + | Marital Status | Single | + + + | Mormonism Affiliation | PEN | + + + [...] | | | | | [place] [address] | | + + + + + Care Team Providers + +------+ + | Care Retail Store Assistant Name | Role | Phone | + +------+ + PCP | Unavailable | + +------+ + Encounter Details +--------+ + + + + | Date | Type | Department | Care Team | Description | +--------+ + + + + | 01/19/ | Hospital | Dermatopathology | | | | 2011 | Encounter | [address] | | | | | | Mailcode: CH16D | | | | | | [facility] | | | | | | and Healing, | | | | | | Building 1, | | | | | | Floor [place], [place] | | | | | | [address] | | | | | | [phone] | | | +--------+ + + + [...] | | | | | analysis ([facility], | | | | | | [id number],02/16/12): [...] CD10 | | | | | | [id number] CD14 CD15 CD16 | | | | | | CD19 CD20 CD25 [id number] | | | | | | CD38 CD45 CD56 CD58 | | | | | | CD64 CD71 [id number] | | | | | | sKappa sLambda | | | | | | HLA-DR CD57 CD94 | | | | | | [id number] | | | | | | [id number] | | | | | | [id number] (Analyte | | | | | | specific reagents are | | | | | | used in many laboratory | | | | | | tests necessary | | | | | | [facility] | | | | | | [...] Medical | | | | | | [place], [place] | | | | | | [...] | + + + + + | [facility] | [address] | [place] [address] | | | PATHOLOGY | [address] [...] | | | | | | of [facility] back for | | | | [...] + + | [facility] | Mailcode MAC5D, [address] | [place] [address] | | | DERMATOPATHOLOGY | [address] | | | + + + + + documented in this encounter Visit Diagnoses Not on filedocumented in this encounter"
--- OUTSIDE RECORDS SUMMARY | ~2019-08-11 | XMS | Encounter Summary ---
Demographics + + + | Address | [address] | | | [place] [address] | + + + | Home Phone | | + + + | Preferred Language | Unknown | + + + | Marital Status | | + + + | Advent Affiliation | 1038 | + + + | Race | Unknown | + + + | Ethnic Group | Unknown | + + + Author + + + | Author | [facility] | | | and [...] | Aileen Nelson | ECON | [address] | | | | | [place] | | | | | [address] | | + + + + + Care Team Providers + +------+ + | Care Firer Locomotive Name | Role | Phone | + [...] Ted Navarro | | | | | [place], [place] | [place] | | | | | [address] | [address] | | | | | [phone] | [phone] | | | | | | | [...]
--- OUTSIDE RECORDS SUMMARY | ~2019-08-11 | XMS | Encounter Summary ---
Demographics + + + | Address | [address] [place] [address] | | | [place] [address] | + + + | Home Phone [...] | | | | | [place] [address] | | + + + + + Care Team Providers + +------+ + | Care Global Manager Name | Role | Phone | [...] [place] | | | | | [address] | [address] | | | | | | [phone] | | | | | | | [...] Edmond Estes MD - 05/10/2015 6:00 PM [facility] PROGRESS NOTE [address] [place] [address] SARTHAK NELSON DATE OF SERVICE: 05/10/2015 TIME [...] here to the ER or to [facility]. GIANCARLO/Sylvie /[id number] Electronically Signed 05/22/15 1228 MD MANOJ Cantu EDWARD E [id number] : 50 [id number] ADMIT DATE: 05/04/15 DISCHARGE DATE: 05/10/15 Edmond Wood MD - 05/09/2015 9:54 PM [facility] PROGRESS NOTE [address] [place] [address] SARTHAK NELSON HISTORY UPDATE: Mr. Nelson was [...] has been in discussion with at the [facility] in [place]. I do not see any need for [...] infect a sterile fluid collection. MM/SARTHAK Sánchez [id number] : 50 [id number] ADMIT DATE: 05/04/15 DISCHARGE DATE: /[id number] Electronically Signed 05/10/15 0814 MD MANOJ Cantu EDWARD E [id number] : 50 [id number] ADMIT DATE: 05/04/15 DISCHARGE DATE: Bruno Ramirez MD - 05/09/2015 4:01 PM [facility] PROGRESS NOTE [address] [place] [address] SARTHAK NELSON DATE OF SERVICE: 05/09/2015 ASSESSMENT [...] get closer to within normal limits. ILL/MedQ /[id number] Electronically Signed 05/10/15 0715 MD MANOJ Abbott EDWARD E [id number] : 50 [id number] ADMIT DATE: 05/04/15 DISCHARGE DATE: Bruno Ramirez MD - 05/09/2015 3:54 PM [facility] PROG RESS NOTE [address] [place] [address] SARTHAK NELSON DATE OF SERVICE: 05/09/2015 24-HOUR [...] was working because once the SARTHAK NELSON [id number] : 50 [id number] ADMIT DATE: 05/04/15 DISCHARGE DATE: ceftriaxone was [...] recent urinalysis, specifically on 04/18/2015 at the [facility], and this was of 100,000 colony-forming units. [employer]efdinir does cover for this. In addition, in speaking with Alaina Malik, the infectious disease lead clinical at the [facility], she stated that this will also cover [...] of a dime with minimal SARTHAK NELSON [id number] : 50 [id number] ADMIT DATE: 05/04/15 DISCHARGE DATE: anguinous seepage. Will monitor. 9. Deep venous thrombosis prophylaxis. On warfarin currently. ILL/MedQ /[id number] Electronically Signed 05/10/15 0715 MD MANOJ Abbott EDWARD E [id number] : 50 [id number] ADMIT DATE: 05/04/15 DISCHARGE DATE: Bruno Ramirez MD - 05/08/2015 6:59 PM [facility] PROG RESS NOTE [address] [place] [address] SARTHAK NELSON DATE OF SERVICE: 05/08/2015 24-HOUR [...] that was isolated on 04/18/2015 at the [facility] from a urine culture growing more than 100,000 colony-forming units. In addition, speaking to Alaina Malik, who is the [facility] lead clinical there, since the patient's infectious disease specialist, Dr. Cait Peres, is on vacation, stated to also cover for gonorrhea that could be circulating in the community. Even though I stated the patient has not had SARTHAK NELSON [id number] : 50 [id number] ADMIT DATE: 05/04/15 DISCHARGE DATE: sexual intercourse [...] 3. Baseline creatinine is 1.9 as per [facility] records. Currently his creatinine is 1.7, we [...] today, the infectious disease clinician at the [facility] (phone number is [phone]). Prior to this, also tried calling Jennifer, another HIV patient admitting representative at the [facility], at [phone], and left a message. 3. Also called Martin Stokes, of infectious diseases at [facility], at [phone]. The conversation initially was started with Martin Stokes, who [facility], [facility]aina Malik, who in turn contacted me. ILL/MedQ /[id number] Electronically Signed 05/09/15 0700 MD MANOJ Abbott EDWARD E [id number] : 50 [id number] ADMIT DATE: 05/04/15 DISCHARGE DATE: Bruno Ramirez MD - 05/07/2015 4:09 PM [facility] PROG RESS NOTE [address] [place] [address] SARTHAK NELSON DATE OF SERVICE: 05/07/2015 24-HOUR [...] If not, then we will SARTHAK NELSON [id number] : 50 [id number] ADMIT DATE: 05/04/15 DISCHARGE DATE: consider getting [...] with oral antibiotic before considering discharge. ILL/MedQ /[id number] Electronically Signed 05/08/15 1058 MD MANOJ Abbott EDWARD E [id number] : 50 [id number] ADMIT DATE: 05/04/15 DISCHARGE DATE: Bruno Ramirez MD - 05/07/2015 3:21 PM [facility] PROG RESS NOTE [address] [place] [address] NELSONSARTHAK TEMPLE CONTINUATION: Chronic kidney disease stage III. Baseline creatinine is 1.9. This is from review of [facility] records. ILL/MedQ /[id number] Electronically Signed 05/08/15 1058 Bruno Gray MD SARTHAK NELSON [id number] : 50 [id number] ADMIT DATE: 05/04/15 DISCHARGE DATE: Abad Barraza MD - 05/07/2015 1:44 PM [facility] PROGRESS NOTE [address] [place] [address] NELSONCHERYLLUIS Morales CURRENT PROBLEM: Right epididymitis. HISTORY [...] [facility] or at the [facility] Urology Department-where he is an established patient. We will follow him on a p.r.n. basis during the remainder his hospitalization. GAG/MedQ /[id number] Electronically Signed 05/23/15 0728 MD MANOJ Gomez EDWARD E [id number] : 50 [id number] ADMIT DATE: 05/04/15 DISCHARGE DATE: 05/10/15 Bruno Ramirez MD - 05/06/2015 11:19 AM [facility] PROGRESS NOTE [address] [place] [address] SARTHAK NELSON DATE OF SERVICE: 05/06/2015 24-HOUR [...] morning before considering discharge. ILL/MedQ SARTHAK NELSON [id number] : 50 [id number] ADMIT DATE: 05/04/15 DISCHARGE DATE: /[id number] Electronically Signed 05/07/15 0700 MD MANOJ Abbott EDWARD E [id number] : 50 [id number] ADMIT DATE: 05/04/15 DISCHARGE DATE: [facility] - 05/05/2015 9:07 PM [facility] PROGRESS NOTE [address] [place] [address] SARTHAK NELSON DATE OF SERVICE: 05/05/2015 BRIEF HISTORY: A 64-year-old gentleman with multiple comorbidities who is followed through the [facility]. He has HIV and reports [...] Disposition: Likely home tomorrow. DC/MedQ SARTHAK NELSON [id number] : 50 [id number] ADMIT DATE: 05/04/15 DISCHARGE DATE: /[id number] Electronically Signed 05/06/15 1037 MD MANOJ Vu EDWARD E [id number] : 50 [id number] ADMIT DATE: 05/04/15 DISCHARGE DATE: [facility] Edmond franco MD - 05/05/2015 1:12 PM [facility] PROGRESS NOTE [address] [place] [address] SARTHAK NELSON DATE OF SERVICE: 05/05/2015 EVENTS [...] Urology can be contacted to re-consult. MM/MedLoulou /[id number] Electronically Signed 05/10/15 0813 MD MANOJ Cantu EDWARD E [id number] : 50 [id number] ADMIT DATE: 05/04/15 DISCHARGE DATE: [facility] Edmond gray MD - 05/05/2015 10:45 AM [facility] CONSULTATI ON [address] [place] [address] SARTHAK NELSON DATE OF CONSULTATION: 05/04/2015 REQUESTING [...] scrotum is enlarged bilaterally, and SARTHAK NELSON [id number] : 50 [id number] ADMIT DATE: 05/04/15 on the left side [...] of this patient. Urology will follow. GIANCARLO/MedLoulou /[id number] Electronically Signed 05/10/15 0813 MD MANOJ CantuSARTHAK [id number] : 50 [id number] ADMIT DATE: 05/04/15 Ghanshyam Kelly MD - 05/04/2015 6:48 PM [facility] PROGRESS NOTE [address] [place] [address] NELSON,SARTHAK Morales BRIEF HISTORY: A 64-year-old gentleman [...] 8. Disposition: Continue inpatient care. SARTHAK NELSON [id number] : 50 [id number] ADMIT DATE: 05/04/15 DISCHARGE DATE: Damián /[id number] Electronically Signed 05/06/15 1036 MD MANOJ Vu EDWARD E [id number] : 50 [id number] ADMIT DATE: 05/04/15 [facility] Plan of Treatment Not on filedocumented as of this encounter Visit Diagnoses Not on filedocumented in this encounter"
--- OUTSIDE RECORDS SUMMARY | ~2019-08-11 | XMS | Encounter Summary ---
Demographics + + + | Address | [address] | | | [place] [address] | + + + | Home Phone | | + + + | Preferred Language | Unknown | + + + | Marital Status | | + + + | Latter Day Affiliation | 1038 | + + + | Race | Unknown | + + + | Ethnic Group | Unknown | + + + Author + + + | Author | [facility] | | | and [place] | + + + | Organization | [facility] | | [...] [place] | | | | | [address] | | + + + + + Care Team Providers + +------+ + | Care Bobbin Inspector Name | Role | Phone | [...] Ted Navarro | | | | | [place], [place] | [place] | | | | | [address] | [address] | | | | | [phone] | [phone] | | | | | | | [...]
--- OUTSIDE RECORDS SUMMARY | ~2019-08-11 | XMS | Encounter Summary ---
Demographics + + + | Address | [address] | | | [place] [address] | + + + | Home Phone | | + + + | Preferred Language | Unknown | + + + | Marital Status | | + + + | Tenriism Affiliation | 1038 | + + + | Race | Unknown | + + + | Ethnic Group | Unknown | + + + Author + + + | Author | [facility] | | | and [place] | + + + | Organization | [facility] | | | and [place] | + + + | Address | Unknown | + + + | Phone | Unavailable | + + + Support + + + + + | Name | Relationship | Address | Phone | + + + + + | Aileen Nelson | ECON | [address] | | | | | [place] | | | | | [address] | | + + + + + Care Team Providers + +------+ + | Care Chicken Stuffer Name | Role | Phone | + [...] Ted Navarro | | | | | [place], [place] | [place] | | | | | [address] | [address] | | | | | [phone] | [phone] | | | | | | | [...]
--- OUTSIDE RECORDS SUMMARY | ~2019-08-11 | XMS | Encounter Summary ---
Demographics + + + | Address | [address] | | | [place] [address] | + + + | Home Phone | | + + + | Preferred Language | Unknown | + + + | Marital Status | | + + + | Samaritan Affiliation | 1038 | + + + | Race | Unknown | + + + | Ethnic Group | Unknown | + + + Author + + + | Author | [facility] | | | and [place] | [...] Aileen Nelson | ECON | [address] | | | | | [place] | | | | | [address] | | + + + + + Care Team Providers + +------+ + | Care Rn Medical Surgical Name | Role | Phone | + [...] Ted Navarro | | | | | [place], [place] | [place] | | | | | [address] | [address] | | | | | [phone] | [phone] | | | | | | | [...] | | | | | | [facility] | | | | | [facility] | | | | | | BURR. IT HAS NOT BEEN | | | [...]
--- OUTSIDE RECORDS SUMMARY | ~2019-08-11 | XMS | Encounter Summary ---
Demographics + + + | Address | [address] [place] [address] | | | [place] [address] | + + + | Home Phone [address] | | | | | [place] [address] | | + + + + + Care Team Providers + +------+ + | Care Watchmaking Teacher Name | Role | Phone | [...] | 2009 | Referral | Services at [facility] | [facility] | | | | Order | [address] [facility] [address] | | | | | Nayely An Mailcode: | [address] | | | | | [address] [facility] | [place] [address] | | | | | [place], [place] | [phone] | | | | | [address] | | | | | | [phone] | | | +--------+ + + + [...]
--- OUTSIDE RECORDS SUMMARY | ~2019-08-11 | XMS | Encounter Summary ---
Demographics + + + | Address | [address] [place] [address] | | | [place] [address] | + + + | Home Phone [...] Author + + + | Author | [facility] | + + + | Organization | [facility] | + + + | Address | Unknown | + + + | Phone | Unavailable | + + + Support + + + + + | Name | Relationship | Address | Phone | + + + + + | Aileen Aranda | ECON | [address] | | | | | [place] [address] | | + + + + + Care Team Providers + +------+ + | Care Spreader Operator Name | Role | Phone | [...] Med Cntr | | | | | [address] | [facility] [address] | | | | [address] | | | | | | [place] | | | | | | [address] | | | | | | | [...] Bruno Gray MD - 05/10/2015 1:26 PM [facility] DISCHARGE SUMMARY [address] ADDENDUM [place] [address] ADDENDUM: DATE OF ADMISSION: 05/04/2015 Because there [...] Winter, the pharmacist at the [place], was [phone] [facility] 1933. ILL/MedQ /[id number] Electronically Signed 05/20/15 0736 MD MANOJ Abbott EDWARD E [id number] : 50 [id number] ADMIT DATE: 05/04/15 DISCHARGE DATE: 05/10/15 Bruno Verdin MD - 05/10/2015 12:02 PM [facility] DISCHARGE SUMMARY [address] [place] [address] SARTHAK ARANDA DATE OF ADMISSION: 05/04/2015 DATE [...] on April 23 he went to the [facility] for urinary tract symptoms and was [...] multiple times in the ED. SARTHAK ARANDA [id number] : 50 [id number] ADMIT DATE: 05/04/15 DISCHARGE DATE: 05/10/15 HOSPITAL [...] isolated in his urinalysis from SARTHAK ARANDA [id number] : 50 [id number] ADMIT DATE: 05/04/15 DISCHARGE DATE: 05/10/15 the [...] 25 mg b.i.d. as needed. SARTHAK ARANDA [id number] : 50 [id number] ADMIT DATE: 05/04/15 DISCHARGE DATE: 05/10/15 6. [place] 5/325 mg 1 tablet q.4 hours as [...] 30 minutes counseling and coordinating care. DEYANIRA/MedQ /[id number] CC: Iain WHITE M.D. JESSE M. PAPAC, M.D. Electronically Signed 05/20/15 0735 Bruno Gray MD ARANDASARTHAK [id number] : 50 [id number] ADMIT DATE: 05/04/15 DISCHARGE DATE: 05/10/15 Tdocumented in this encounter Plan of Treatment Not on filedocumented as of this encounter Visit Diagnoses Not on filedocumented in this encounter"
--- OUTSIDE RECORDS SUMMARY | ~2019-08-11 | XMS | Encounter Summary ---
Demographics + + + | Address | [address] | | | [place] [address] | + + + | Home Phone | | + + + | Preferred Language | Unknown | + + + | Marital Status | | + + + | Buddhism Affiliation | 1038 | + + + | Race | Unknown | + + + | Ethnic Group | Unknown | + + + Author + + + | Author | [facility] | | | and [place] | + + + | Organization | [facility] | | | and [place] | + + + | Address | Unknown | + + + | Phone | Unavailable | + + + Support + + + + + | Name | Relationship | Address | Phone | + + + + + | Aileen Nelson | ECON | [address] | | | | | [place] | | | | | [address] | | + + + + + Care Team Providers + +------+ + | Care Senior Technical Trainer Name | Role | Phone | + +------+ + | Jericho Cao MD | PCP | | + +------+ + Encounter Details +--------+ + + + + | Date | Type | Department | Care Team | Description | +--------+ + + + + | 07/01/ | Hospital | [facility] | Asaf Parra, | | | 2018 | Encounter | MED CTR THERAPY OT | OT [place], | | | | | ACUTE [address] | [place] | | | | | [place] | | | | | | [address] | | | | | | [phone] | | | +--------+ + + + [...] + + +---------+ + + | Saw [address] 450 | Take 900 mg by mouth | | 0 | | | | MG CAPS | 2 times daily. | | | | | + + + +---------+ + + documented as of this encounter Plan of Treatment Not on filedocumented as of this encounter Visit Diagnoses Not on filedocumented in this encounter"
--- OUTSIDE RECORDS SUMMARY | ~2019-08-11 | XMS | Encounter Summary ---
Demographics + + + | Address | [address] | | | [place] [address] | + + + | Home Phone | | + + + | Preferred Language | Unknown | + + + | Marital Status | | + + + | Adventist Affiliation | 1038 | + + + | Race | Unknown | + + + | Ethnic Group | Unknown | + + + Author + + + | Author | [facility] | | | and [place] | + + + | Organization | [facility] | | [...] [place] | | | | | [address] | | + + + + + Care Team Providers + +------+ + | Care Government Relations Manager Name | Role | Phone | [...] Ted Navarro | | | | | [place], [place] | [place] | | | | | [address] | [address] | | | | | [phone] | [phone] | | | | | | | [...]
--- OUTSIDE RECORDS SUMMARY | ~2019-08-11 | XMS | Encounter Summary ---
Demographics + + + | Address | [address] [place] [address] | | | [place] [address] | + + + | Home Phone | | + + + | Preferred Language | Unknown | + + + | Marital Status | Single | + + + | Advent Affiliation | PEN | + + + [...] | | | | | [place] [address] | | + + + + + Care Team Providers + +------+ + | Care Family Services Coordinator Name | Role | Phone | [...] | | | | Procedures | on [place] | [facility] | | | | | PET SKULL | V A MEDICAL | [facility] | | | | | BASE TO | CENTER | Pavilion | | | | | MID-THIGHS | [address] | [address] | | | | | | [address] | Pavilion | | | | | | [address] | [place], [place] | | | | | | [place], | [address] | | | | | | [place] [address] | Phone: | | | | | | Phone: | [phone] | | | | | | [phone] | Fax: | | | | | | Fax: | [phone] | | | | | | [phone] | | +--------+--------+ + + + + Encounter Details +--------+ + + + + | Date | Type | Department | Care Team | Description | +--------+ + + + + | 10/15/ | Outside | Nuclear Medicine | Deshaun Warren, | | | 2011 | Referral | at [facility] [address] | MD DIONNE Manzano A | | | | Order | [facility] | [facility] [address] | | | | | Mailcode: [address] [facility] | | | | | [facility] | [address] | | | | | [place], [place] | [place] [address] | | | | | [address] | [phone] | | | | | [phone] | | | +--------+ + + + [...]
--- OUTSIDE RECORDS SUMMARY | ~2019-08-11 | XMS | Clinical Summary ---
Demographics + + + | Address | [address] [place] [address] | | | [place] [address] | + + + | Home Phone [...] Author + + + | Author | [facility] INPATIENT REV LOC | + + + [...] | | | | | [place] [address] | | + + + + + Care Team Providers + +------+ + | Care Composing Machine Operator Name | Role | Phone | + +------+ + | Romain Harrington MD | PCP | | + +------+ + Source Comments MANUEL is fully live on both [facility] and [facility] Allergies + + + + [...] 0 | | | Activ | | 4-hob-rkq-fish oil | two times daily. | | [...] | [place] | | natalie | | [id number] | ity | | | RIAL | | for | | [place], [place] | | | | ACCT | | all | | [address] | | | | CONTRA | | dates | | | | | | CT | | | | | | + +--------+ +--------+ + +--------+ | [place] | [place] | xxxxxxxxx | Effect | [id number] | [address] | Agency | | ADMINISTRATION | COMMUN | | natalie | 8 | [address] | | | | ITY | | for | | [place], | | | | [place] | | all | | [place] [address] | | | | RCE | | dates | | | | + +--------+ +--------+ + +--------+ | [facility] | [facility] | [phone] | Effect | [id number] | [address] | Agency | | ADMINISTRATION | NS | | natalie | 8 | [address] | | | | ADMINI | | for | | [place], | | | | STRATI | | all | | [place] [address] | | | | ON | | [...] | | | | | | | [address] | | + +--------+ +--------+ + +--------+ [...] 1950 | [phone] | [place] [address] | | | john | | | 6 (Home) | | + +--------+ +--------+ + + | Sarthak Nelson | Person | Self [birth year] | [address] | | | al/Fam | | 1950 | [phone] | [place] [address] | | | john | | | 6 (Home) | | + +--------+ +--------+ + + | [id number] | Indust | Other | 09/20/ | | [address]ONTE Arizmendi [address]78494 | | | rial | | [birth year]75 | | [place] | | | | | | | [address] | + +--------+ +--------+ + + | Sarthak Nelson | [place] | Self | [birth year] | [address] | | | Sponso | | 1950 | [phone] | [place] [address] | | | red | | | 6 (Home) | | + +--------+ +--------+ + +"
--- OUTSIDE RECORDS SUMMARY | ~2019-08-11 | XMS | Encounter Summary ---
Demographics + + + | Address | [address] [place] [address] | | | [place] [address] | + + + | Home Phone [...] Author + + + | Author | [facility] | + + + | Organization | [facility] | + + + | Address | Unknown | + + + | Phone | Unavailable | + + + Support + + + + + | Name | Relationship | Address | Phone | + + + + + | Aileen Nelson | ECON | [address] | | | | | [place] [address] | | + + + + + Care Team Providers + +------+ + | Care Court Usher Name | Role | Phone | + [...] | | | | Procedures | on [place] | [facility] | | | | | PET SKULL | V A MEDICAL | [facility] | | | | | BASE TO | CENTER | Pavilion | | | | | MID-THIGHS | [address] | [address] | | | | | | [facility] | Pavilion | | | | | | [address] | [place], [place] | | | | | | [place], | [address] | | | | | | [place] [address] | Phone: | | | | | | Phone: | [phone] | | | | | | [phone] | Fax: | | | | | | Fax: | [phone] | | | | | | [phone] | | +--------+--------+ + + + + Encounter Details +--------+ + + + + | Date | Type | Department | Care Team | Description | +--------+ + + + + | 10/15/ | Outside | Nuclear Medicine | Deshaun Warren, | | | 2011 | Referral | at [facility] [address] | MD DIONNE Manzano A | | | | Order | [facility] | [facility] [address] | | | | | Mailcode: [address] [facility] | | | | | [facility] | [address] | | | | | [place], [place] | [place] [address] | | | | | [address] | [phone] | | | | | [phone] | | | +--------+ + + + [...]
--- OUTSIDE RECORDS SUMMARY | ~2019-08-11 | XMS | Encounter Summary ---
Demographics + + + | Address | [address] [place] [address] | | | [place] [address] | + + + | Home Phone [...] Author + + + | Author | [facility] | + + + | Organization | [facility] | + + + | Address | Unknown | + + + | Phone | Unavailable | + + + Support + + + + + | Name | Relationship | Address | Phone | + + + + + | Aileen Aranda | ECON | [address] | | | | | [place] [address] | | + + + + + Care Team Providers + +------+ + | Care Creel Hand Name | Role | Phone | + [...] Med Cntr | | | | | [address] | Hospitalists [address] | | | | | [address] | | | | | | [place] | | | | | | [address] | | | | | | | [...] Bruno Gray MD - 05/10/2015 1:26 PM [facility] DISCHARGE SUMMARY [address] ADDENDUM [place] [address] ADDENDUM: DATE OF ADMISSION: 05/04/2015 Because there is minimal change to improvement for his scrotal cellulitis, cefdinir was discussed in detail with infectious disease doctor at the CO, Srinivas Lafleur, upon discharge, stating that cefdinir at 300 mg b.i.d. is being continued and if there is need to increase it any further based on patient's weight. Srinivas Lafleur spoke with Marlin Winter, who is a pharmacist at the CO, and their mutual decision was to keep [...] for Marlin Winter, the pharmacist at the CO, was [phone] [facility] 4524. ILL/MedQ /[id number] Electronically Signed 05/20/15 0736 MD MANOJ Abbott EDWARD E [id number] : 50 [id number] ADMIT DATE: 05/04/15 DISCHARGE DATE: 05/10/15 Bruno Verdin MD - 05/10/2015 12:02 PM [facility] DISCHARGE SUMMARY [address] [place] [address] SARTHAK ARANDA DATE OF ADMISSION: 05/04/2015 DATE [...] on April 23 he went to the [facility] for urinary tract symptoms and was diagnosed [...] multiple times in the ED. SARTHAK ARANDA [id number] : 50 [id number] ADMIT DATE: 05/04/15 DISCHARGE DATE: 05/10/15 HOSPITAL [...] for 3 weeks in total. However, the CO only allows 14 days of antibiotics maximum [...] the infectious disease lead clinical at the CO, his last CD4 count in February 2015 was 873. She did not suspect that this was an opportunistic infection causing epididymo-orchitis and did agree with 3rd generation cephalosporins as it would not only cover for the E coli that we isolated in his urinalysis from SARTHAK ARANDA [id number] : 50 [id number] ADMIT DATE: 05/04/15 DISCHARGE DATE: 05/10/15 the CO when he saw them 2 weeks ago, [...] 25 mg b.i.d. as needed. SARTHAK ARANDA [id number] : 50 [id number] ADMIT DATE: 05/04/15 DISCHARGE DATE: 05/10/15 6. [place] 5/325 mg 1 tablet q.4 hours as [...] up with the anticoagulation clinic at the CO for further management. 3. Lantus 40 units subcu b.i.d., down from 50 units subcu b.i.d. Stopped medications: 1. Doxycycline. 2. Warfarin 5 mg Wednesday, Wednesday, Wednesday, Wednesday. DISCHARGE FOLLOWUP: 1. With Dr. Estes within 3-7 days. 2. With CO infectious disease physician/specialist within 3-7 days. 3. Romain Harrington within 1-2 weeks. 4. Anticoagulation clinic within 1-2 days. DISCHARGE ACTIVITY: As tolerated. DISCHARGE DIET: Diabetic and low salt and low sodium. Spent more than 30 minutes counseling and coordinating care. DEYANIRA/MedQ /[id number] CC: Iain WHITE M.D. JESSE M. PAPAC, M.D. Electronically Signed 05/20/15 0735 Bruno Gray MD ARANDASARTHAK [id number] : 50 [id number] ADMIT DATE: 05/04/15 DISCHARGE DATE: 05/10/15 Tdocumented in this encounter Plan of Treatment Not on filedocumented as of this encounter Visit Diagnoses Not on filedocumented in this encounter"
--- OUTSIDE RECORDS SUMMARY | ~2019-08-11 | XMS | Encounter Summary ---
Demographics + + + | Address | [address] [place] [address] | | | [place] [address] | + + + | Home Phone | | + + + | Preferred Language | Unknown | + + + | Marital Status | Single | + + + | Anglican Affiliation | PEN | + + + [...] | | | | | [place] [address] | | + + + + + Care Team Providers + +------+ + | Care Cognos Administrator Name | Role | Phone | [...] [address] | Mindy An [place], | | | 03/22/ | | [facility] | [place] [address] | | | 2011 | | [place], [place] | [phone] | | | | | [address] | | | | | | [phone] | Loni Gardner MD | | | | | | [address] | | | | | | Street [place], [place] | | | | | | [address] | | | | | | | [...] 03/22/2012 Thank you for coming to the [facility] ED. You have been diagnosed with chest [...] doctor if you can take an o mmx-bla-jzdjqcw medicine. Rest and protect the sore area. [...] Pain: After Your Visit", log into your Summitour a ccount at [email or web address]. You can enter V293 in the iLyngo Library" search b ox. Not on Summitour? Review the Chirp Interactivehart section of your After Visit Summary for directions on ho w to sign up. 9961-4817 Pharmalink. Care instructions adapted under license by [facility]. This care instruction is for use with your licensed healthcar e professional. If you have questions about a medical condition or this instruction, always ask your healthcare professional. Pharmalink disclaims any warranty or liabili ty for your use of this information. Content Version: 9.3.88387; Last Revised: 2010 documented in this encounter [...] Provider: No primary provider on file. Primary Element Setter: [place] cardi[facility] I was paged by ER to see Mr. Sarthak Nelson for ICD check. Sarthak Nelson is a 61 y.o . Male with ICD who came to ED and reports that his ICD fired. No diagnosis found. Generator: Device: [employer] Model #: TELIGEN 100 E102 Serial #: [id number] Implanted: 12/29/2010 Leads: RV: GUIDANT Implant date: 12/29/2010 ICD PROGRAMMING: Alberto Mode: VVI Lower Rate: 40 bpm TACHY PARAMETERS: VT Detection Rate: 180, Therapy: ATP X3, CV: 5J, 41 JX2. Vf Detection Rate: 210. Therapy: CV: 5J, 41J X8. Patient is not pacer dependent. Today's underline rhythm is sinus 88. PACING PERCENTAGE: WINDOW TRIMMER APPRENTICE: 0% EPISODES detected today: 0 Last NSVT [...] today. Recommendations: Cardiology consult. Zandra Long PA-C [facility] DEPARTMENT: [id number]- CAR ELECTRONIC INDUSTRIAL CONTROLS MECHANIC EP [facility] Place of Service: [address] - ED Date of Service: 03/21/2012 CSN: [id number] Suggested Level of Care: 58120 - Programming device evaluation; single lead implantable [...] BRENDA | [address] | [place], [place] | | | RE[facility] OF CARE | [address] | [address] | | | TESTS | | | [...] | | | | | | | <so=714....... Negative: | | | | | | [...] CHF. | | | | | | >ws=345....... Highly | | | | | | consistent with CHF. | | | | | | Patients with BNP>xp=340 | | | | | | | [...] | + + + + + | [facility] | [address] | [place] [address] | | | PATHOLOGY | [address] [...] | + + + + + | [facility] DEPARTMENT | [address] | [place] [address] | | | PATHOLOGY | [address] [...] view image for the detailed interpretation from [facility]OS[facility] results. | CARDIOLOGY | + + + + + + + + | Performing | Address | City/State/Zipcode | Phone Number | | Organization | | | | + + + + + | [facility] | [address] | [place], [place] | | | CARDIOLOGY | [address] | [address] | | + + + + + [...] GUTIERREZ | [address] | [place], [place] | | | [facility] OF [facility] | [address] | [address] | | | TESTS | | | [...] BASO # | 0.1 | <0.2 | [facility] | | | | | | DEPARTMENT [...] | + + + + + | [facility] DEPARTMENT OF | [address] | [place] [address] | | | PATHOLOGY | [address] [...] | + + + + + | [facility] DEPARTMENT OF | [address] | [place] [address] | | | PATHOLOGY | [address] [...] | | | DEPARTMENT | | | BELARUSIAN | | | OF | | | [...] | + + + + + | [facility] | [address] | [place] [address] | | | PATHOLOGY | [address] [...] | + + + + + | [facility] DEPARTMENT | [address] | [place] [address] | | | PATHOLOGY | [address] | | | + + + + + 12 LEAD ECG (03/21/2012 4:04 PM PDT) + + + + + + | Component | Value | Ref Range | Performed | Pathologist | | | | | At | Signature | + + + + + + | VENTRICULAR | 77 | BPM | [facility] DEPT | | | RATE | | [...] MEZA | | | | | | (7154) on 03/22/2012 | | | | | | 3:31:04 PM | | | | + + + + + + + + | Specimen | + + | | + + + + + | Narrative | Performed At | + + + | Please click | [facility] | | on view image for the detailed interpretation from [facility] results. | CARDIOLOGY | + + + + + + + + | Performing | Address | City/State/Zipcode | Phone Number | | Organization | | | | + + + + + | [facility] | [address] | [place], [place] | | | CARDIOLOGY | [address] | [address] | | + + + + + [...]
--- OUTSIDE RECORDS SUMMARY | ~2019-08-11 | XMS | Encounter Summary ---
Demographics + + + | Address | [address] | | | [place] [address] | + + + | Home Phone | | + + + | Preferred Language | Unknown | + + + | Marital Status | | + + + | Scientology Affiliation | 1038 | + + + | Race | Unknown | + + + | Ethnic Group | Unknown | + + + Author + + + | Author | [facility] | | | and [place] | + + + | Organization | [facility] | | | [...] [place] | | | | | [address] | | + + + + + Care Team Providers + +------+ + | Care Patient Day Coordinator Name | Role | Phone | [...] Ted Navarro | | | | | [place], [place] | [place] | | | | | [address] | [address] | | | | | [phone] | [phone] | | | | | | | [...]
--- OUTSIDE RECORDS SUMMARY | ~2019-08-11 | XMS | Clinical Summary ---
Demographics + + + | Address | [place] [address] | + + + | Home Phone | | + + + | Preferred Language | Unknown | + + + | Marital Status | Unknown | + + + | Restorationist Affiliation | Unknown | + + + | Race | Unknown | + + + | Ethnic Group | Unknown | + + + Author + + + | Author | [facility] (Historical as of | | | 05-06-19) | + + + | Organization | [facility] [employer] (Historical as of | | | 05-06-19) | + + + | Address | Unknown | + + + | Phone | Unavailable | + + + Care Team Providers + +------+ + | Care Glycerin Supervisor Name | Role | Phone | [...]
--- OUTSIDE RECORDS SUMMARY | ~2019-08-11 | XMS | Encounter Summary ---
Demographics + + + | Address | [address] | | | [place] [address] | + + + | Home Phone | | + + + | Preferred Language | Unknown | + + + | Marital Status | | + + + | Latter Day Affiliation | 1038 | + + + | Race | Unknown | + + + | Ethnic Group | Unknown | + + + Author + + + | Author | [facility] | | | and [place] | + + + | Organization | [facility] | | | and [place] | + + + | Address | Unknown | + + + | Phone | Unavailable | + + + Support + + + + + | Name | Relationship | Address | Phone | + + + + + | Aileen Nelson | ECON | [address] | | | | | [place] | | | | | [address] | | + + + + + Care Team Providers + +------+ + | Care Weed Burner Name | Role | Phone | + +------+ + | Jericho Cao MD | PCP | | + +------+ + Encounter Details +--------+ + + + + | Date | Type | Department | Care Team | Description | +--------+ + + + + | 07/01/ | Hospital | [facility] | Asaf Parra, | | | 2018 | Encounter | MED CTR THERAPY OT | OT [place], | | | | | ACUTE [address] | [place] | | | | | [place] | | | | | | [address] | | | | | | [phone] | | | +--------+ + + + [...] + + +---------+ + + | Saw [address] | Take 900 mg by mouth | | 0 | | | | MG CAPS | 2 times daily. | | | | | + + + +---------+ + + documented as of this encounter Plan of Treatment Not on filedocumented as of this encounter Visit Diagnoses Not on filedocumented in this encounter"
--- OUTSIDE RECORDS SUMMARY | ~2019-08-11 | XMS | Encounter Summary ---
Demographics + + + | Address | [address] [place] [address] | | | [place] [address] | + + + | Home Phone [...] | | | | | [place] [address] | | + + + + + Care Team Providers + +------+ + | Care Unemployment Insurance Hearing Officer Name | Role | Phone | + +------+ + PCP | Unavailable | + +------+ + Encounter Details +--------+ + + + + | Date | Type | Department | Care Team | Description | +--------+ + + + + | 05/07/ | Results | NON-[facility] EP[facility] | Ford Robison OD | | | 2014 | Only | Department | [address] | | | | | | [address] [place] | | | | | | [place] [address] | | | | | | [phone] | | | | | | | [...] POINT | | | GLUCOSE, | ID: [id number]: | | OF CARE | | | POC | [id number] Francoise LaRchanda | | TESTING | | | |Environmental Systems Coordinator: [id number] Brasrey LaRchanda | | | | | [...] POINT | | | GLUCOSE, | ID: [id number]: | | OF CARE | | | POC | [id number] Hochmayr | | TESTING | | | [...] POINT | | | GLUCOSE, | ID: [id number]: | | OF CARE | | | POC | [id number] Hochmayr | | TESTING | | | [...]
--- OUTSIDE RECORDS SUMMARY | ~2019-08-11 | XMS | Clinical Summary ---
Demographics + + + | Address | [address] | | | [place] [address] | + + + | Home Phone | | + + + | Preferred Language | Unknown | + + + | Marital Status | | + + + | Catholic Affiliation | 1038 | + + + | Race | Unknown | + + + | Ethnic Group | Unknown | + + + Author + + + | Author | [facility] | | | and [place] | + + + | Organization | [facility] | | | and [place] | + + + | Address | Unknown | + + + | Phone | Unavailable | + + + Support + + + + + | Name | Relationship | Address | Phone | + + + + + | Aileen Nelson | ECON | [address] | | | | | [place] | | | | | [address] | | + + + + + Care Team Providers + +------+ + | Care Assistant Broker Name | Role | Phone | + [...] | + + + +---------+------+------+-------+ | Saw [place] 450 | Take 900 mg by mouth [...] | + + + + | INFLUENZA, [id number], | 10/03/2009, 08/16/2009 | | | UNSPECIFIED [...] +---------+--------+ | [employer] ADMIN | VETERA | [id number] | 05/21/20 | | | Indemn | | | NS | | 18-Pre | | | ity | | | ADMIN | | sent | | | | | | [place] | | | | | | | | [place] | | | | | | + +--------+ +--------+ +---------+--------+ | MEDICARE | MEDICA | [id number] | 09/20/18 | [phone] | | Medica [...] + +--------+ +--------+ + + | Sarthak Nleson | Person | Self [birth year] | [address] | | | al/Fam | | 1951 | [phone] | [place] [address] | | | john | | | 5 (Home) | | + +--------+ +--------+ + + Advance Directives + + + + + | Type | Date Recorded | Patient | Explanation | | | | Sprinkler Driver | | + + + + + | Power of | | | | | Flexographic Printing Machinist | | | | + + + [...]
--- OUTSIDE RECORDS SUMMARY | ~2019-08-11 | XMS | Encounter Summary ---
Demographics + + + | Address | [address] [place] [address] | | | [place] [address] | + + + | Home Phone [...] | | | | | [place] [address] | | + + + + + Care Team Providers + +------+ + | Care Demand Generation Manager Name | Role | Phone | [...] [place] | | | | | | [address] | | | +--------+ + + + [...]
--- OUTSIDE RECORDS SUMMARY | ~2019-08-11 | XMS | Encounter Summary ---
Demographics + + + | Address | [address] [place] [address] | | | [place] [address] | + + + | Home Phone | | + + + | Preferred Language | Unknown | + + + | Marital Status | Single | + + + | Shinto Affiliation | PEN | + + + [...] | | | | | [place] [address] | | + + + + + Care Team Providers + +------+ + | Care Front Desk Admin Name | Role | Phone | + +------+ + PCP | Unavailable | + +------+ + Encounter Details +--------+ + + + + | Date | Type | Department | Care Team | Description | +--------+ + + + + | 10/13/ | Hospital | Diagnostic Imaging | | | | 2009 | Encounter | Services at [facility] | | | | | | [address] | | | | | | [place] Mailcode: | | | | | | [address] [facility] | | | | | | [place], [place] | | | | | | [address] | | | | | | [phone] | | | +--------+ + + + [...]
--- OUTSIDE RECORDS SUMMARY | ~2019-08-11 | XMS | Encounter Summary ---
Demographics + + + | Address | [address] [place] [address] | | | [place] [address] | + + + | Home Phone [...] | | | | | [place] [address] | | + + + + + Care Team Providers + +------+ + | Care Flat Examiner Name | Role | Phone | [...] [place] | | | | | | [address] | | | | | | [phone] | | | | | | | [...] POINT | | | GLUCOSE, | ID: [id number]: | | OF CARE | | | POC | [id number] Jesse Ivey | | TESTING | | | |Axle Bearing Polisher: [id number] Jesse Ivey | | | | | [...] POINT | | | GLUCOSE, | ID: [id number]: | | OF CARE | | | POC | [id number] John Goyal | | TESTING | | | |Axle Bearing Polisher: [id number] John Goyal | | | | | [...] POINT | | | GLUCOSE, | ID: [id number]: | | OF CARE | | | POC | [id number] John Goyal | | TESTING | | | |Axle Bearing Polisher: [id number] John Goyal | | | | | [...] POINT | | | GLUCOSE, | ID: [id number]: | | OF CARE | | | POC | [id number] John Goyal | | TESTING | | | |Axle Bearing Polisher: [id number] John Goyal | | | | | [...] POINT | | | GLUCOSE, | ID: [id number]: | | OF CARE | | | POC | [id number] Linsey Peñaloza | | TESTING | | | |Axle Bearing Polisher: [id number] Linsey Anabela | | | | | [...] POINT | | | GLUCOSE, | ID: [id number]: | | OF CARE | | | POC | [id number] Jesse Ivey | | TESTING | | | |Axle Bearing Polisher: [id number] Jesse Ivey | | | | | [...] POINT | | | GLUCOSE, | ID: [id number]: | | OF CARE | | | POC | [id number] Davijasvir Diop | | TESTING | | | |Axle Bearing Polisher: [id number] Davi Diop | | | | | [...]
--- OUTSIDE RECORDS SUMMARY | ~2019-08-11 | XMS | Encounter Summary ---
Demographics + + + | Address | [address] [place] [address] | | | [place] [address] | + + + | Home Phone | | + + + | Preferred Language | Unknown | + + + | Marital Status | Single | + + + | Christianity Affiliation | PEN | + + + [...] | | | | | [place] [address] | | + + + + + Care Team Providers + +------+ + | Care Sports Doctor Name | Role | Phone | + +------+ + | Romain Harrington MD | PCP | | + +------+ + Encounter Details +--------+ + + + + | Date | Type | Department | Care Team | Description | +--------+ + + + + | 10/16/ | Outside | Diagnostic Imaging | Surya Cobb, | | | 2009 | Referral | Services at [facility] | [facility] | | | | Order | [address] [facility] [address] | | | | | [place] Mailcode: | [address] | | | | | [address] [facility] | [place] [address] | | | | | [place], [place] | [phone] | | | | | [address] | | | | | | [phone] | | | +--------+ + + + [...]
--- OUTSIDE RECORDS SUMMARY | ~2019-08-11 | XMS | Encounter Summary ---
Demographics + + + | Address | [address] [place] [address] | | | [place] [address] | + + + | Home Phone [...] | | | | | [place] [address] | | + + + + + Care Team Providers + +------+ + | Care Ornamental Iron Worker Name | Role | Phone | [...] [place] | | | | | | [address] | | | | | | [phone] | | | | | | | [...] POINT | | | GLUCOSE, | ID: [id number]: | | OF CARE | | | POC | [id number] Davi Diop | | TESTING | | | |Feller Seam Operator: [id number] Davi Diop | | | | | [...] [place] POINT | | | GLUCOSE, | [id number]: | | OF CARE | | | POC | [id number] Linsey Peañloza | | TESTING | | | |Feller Seam Operator: [id number] Linsey Peñaloza | | | | | [...] POINT | | | GLUCOSE, | ID: [id number]: | | OF CARE | | | POC | [id number] Linsey Peñaloza | | TESTING | | | |Feller Seam Operator: [id number] Linsey Peñaloza | | | | | [...] POINT | | | GLUCOSE, | ID: [id number]: | | OF CARE | | | POC | [id number] Linsey Peñaloza | | TESTING | | | |Feller Seam Operator: [id number] Linsey Peñaloza | | | | | [...] POINT | | | GLUCOSE, | ID: [id number]: | | OF CARE | | | POC | [id number] Jesse Ivey | | TESTING | | | |Feller Seam Operator: [id number] Jesse Ivey | | | | | [...]
--- OUTSIDE RECORDS SUMMARY | ~2019-08-11 | XMS | Encounter Summary ---
Demographics + + + | Address | [address] | | | [place] [address] | + + + | Home Phone [...] Author | [facility] | | | and [...] | Aileen Nelson | ECON | [address] | | | | | [place] | | | | | [address] | | + + + + + Care Team Providers + +------+ + | Care Teacher Aide Name | Role | Phone | + [...] Ted Navarro | | | | | [place], [place] | [place] | | | | | [address] | [address] | | | | | [phone] | [phone] | | | | | | | [...]
--- OUTSIDE RECORDS SUMMARY | ~2019-08-11 | XMS | Encounter Summary ---
Demographics + + + | Address | [address] [place] [address] | | | [place] [address] | + + + | Home Phone [...] | | | | | [place] [address] | | + + + + + Care Team Providers + +------+ + | Care Physics Technical Officer Name | Role | Phone | [...] [place] | | | | | | [address] | | | | | | [phone] | | | | | | | [...] POINT | | | GLUCOSE, | ID: [id number]: | | OF CARE | | | POC | [id number] Jesse Ivey | | TESTING | | | |Structural Steel Equipment Erector: [id number] Jesse Ivey | | | | | [...] POINT | | | GLUCOSE, | ID: [id number]: | | OF CARE | | | POC | [id number] John Goyal | | TESTING | | | |Structural Steel Equipment Erector: [id number] John Goyal | | | | | [...] POINT | | | GLUCOSE, | ID: [id number]: | | OF CARE | | | POC | [id number] John Goyal | | TESTING | | | |Structural Steel Equipment Erector: [id number] John Goyal | | | | | [...] POINT | | | GLUCOSE, | ID: [id number]: | | OF CARE | | | POC | [id number] John Goyal | | TESTING | | | |Structural Steel Equipment Erector: [id number] John Goyal | | | | | [...] POINT | | | GLUCOSE, | ID: [id number]: | | OF CARE | | | POC | [id number] Linsey Peñaloza | | TESTING | | | |Structural Steel Equipment Erector: [id number] Linsey Anabela | | | | | [...] POINT | | | GLUCOSE, | ID: [id number]: | | OF CARE | | | POC | [id number] Jesse Ivey | | TESTING | | | |Structural Steel Equipment Erector: [id number] Jesse Ivey | | | | | [...] POINT | | | GLUCOSE, | ID: [id number]: | | OF CARE | | | POC | [id number] Davijasvir Diop | | TESTING | | | |Structural Steel Equipment Erector: [id number] Davi Diop | | | | | [...]
--- OUTSIDE RECORDS SUMMARY | ~2019-08-11 | XMS | Encounter Summary ---
Demographics + + + | Address | [address] | | | [place] [address] | + + + | Home Phone | | + + + | Preferred Language | Unknown | + + + | Marital Status | | + + + | Sikh Affiliation | 1038 | + + + | Race | Unknown | + + + | Ethnic Group | Unknown | + + + Author + + + | Author | [facility] | | | and [place] | + + + | Organization | [facility] | | | and [place] | + + + | Address | Unknown | + + + | Phone | Unavailable | + + + Support + + + + + | Name | Relationship | Address | Phone | + + + + + | Aileen Nelson | ECON | [address] | | | | | [place] | | | | | [address] | | + + + + + Care Team Providers + +------+ + | Care Stallion Manager Name | Role | Phone | [...] Ted Navarro | | | | | [place], [place] | [place] | | | | | [address] | [address] | | | | | [phone] | [phone] | | | | | | | [...]
--- OUTSIDE RECORDS SUMMARY | ~2019-08-11 | XMS | Encounter Summary ---
Demographics + + + | Address | [address] | | | [place] [address] | + + + | Home Phone | | + + + | Preferred Language | Unknown | + + + | Marital Status | | + + + | Buddhist Affiliation | 1038 | + + + | Race | Unknown | + + + | Ethnic Group | Unknown | + + + Author + + + | Author | [facility] | [...] [place] | | | | | [address] | | + + + + + Care Team Providers + +------+ + | Care Call Out Operator Name | Role | Phone | [...] Ted Navarro | | | | | [place], [place] | [place] | | | | | [address] | [address] | | | | | [phone] | [phone] | | | | | | | [...]
--- OUTSIDE RECORDS SUMMARY | ~2019-08-11 | XMS | Encounter Summary ---
Demographics + + + | Address | [address] [place] [address] | | | [place] [address] | + + + | Home Phone [...] + + + | Author | [facility] | + + + | Organization | [facility] | + + + | Address | Unknown | + + + | Phone | Unavailable | + + + Support + + + + + | Name | Relationship | Address | Phone | + + + + + | Aileen Nelson | ECON | [address] | | | | | [place] [address] | | + + + + + Care Team Providers + +------+ + | Care Almond Paste Molder Name | Role | Phone | + +------+ + PCP | Unavailable | + +------+ + Encounter Details +--------+ + + + + | Date | Type | Department | Care Team | Description | +--------+ + + + + | 01/19/ | Hospital | Dermatopathology | | | | 2011 | Encounter | [id number] | | | | | | Mailcode: CH16D | | | | | | [facility] | | | | | | and Healing, | | | | | | Building [address], | | | | | | Floor [place], [place] | | | | | | [address] | | | | | | [phone] | | | +--------+ + + + [...] | | | | | | analysis ([facility], | | | | | | [...] CD10 | | | | | | [id number] CD14 CD15 CD16 | | | | | | CD19 CD20 CD25 [id number] | | | | | | CD38 CD45 CD56 CD58 | | | | | | CD64 CD71 [id number] | | | | | | sKappa sLambda | | | | | | HLA-DR CD57 CD94 | | | | | | [id number] | | | | | | [id number] | | | | | | [id number] (Analyte | | | | | | specific reagents are | | | | | | used in many laboratory | | | | | | tests necessary | | | | | | [facility] | | | | | | [...] Medical | | | | | | [place], [place] | | | | | | [...] + + + + + | [facility] | [address] | [place] [address] | | | PATHOLOGY | [address] [...] | | | | | | of [facility] back for | | | | | [...] + + | [facility] | Mailcode MAC[address] | [place] [address] | | | DERMATOPATHOLOGY | [address] | | | + + + + + documented in this encounter Visit Diagnoses Not on filedocumented in this encounter"
--- OUTSIDE RECORDS SUMMARY | ~2019-08-11 | XMS | Clinical Summary ---
Demographics + + + | Address | [address] [place] [address] | | | [place] [address] | + + + | Home Phone [...] Author + + + | Author | [facility] INPATIENT REV LOC | + + + [...] | | | | | [place] [address] | | + + + + + Care Team Providers + +------+ + | Care Stave Inspector Name | Role | Phone | + +------+ + | Romain Harrington MD | PCP | | + +------+ + Source Comments MANUEL is fully live on both [facility] and [facility] InPatient[facility] Allergies + + + + [...] 0 | | | Activ | | 7-qea-pti-fish oil | two times daily. | | [...] | INDUST | | natalie | | [id number] | ity | | | RIAL | | for | | [place], [place] | | | | ACCT | | all | | [address] | | | | CONTRA | | dates | | | | | | CT | | | | | | + +--------+ +--------+ + +--------+ | [facility] | [place] | [phone] | Effect | [id number] | [address] | Agency | | ADMINISTRATION | COMMUN | | natalie | 8 | 1035 | | | | ITY | | for | | [place], | | | | [place]SOU | | all | | [place] [address] | | | | RCE | | dates | | | | + +--------+ +--------+ + +--------+ | [facility] | [facility] | [phone] | Effect | [id number] | [address] | Agency | | ADMINISTRATION | NS | | natalie | 8 | 1035 | | | | ADMINI | | for | | [place], | | | | [place]ATI | | all | | [place] [address] | | | | ON | | [...] | | | | | | | [address] | | + +--------+ +--------+ + +--------+ [...] 1950 | [phone] | [place] [address] | | | john | | | 6 (Home) | | + +--------+ +--------+ + + | Sarthak Nelson | Person | Self | [birth year] | [address] | | | al/Fam | | 1950 | [phone] | [place] [address] | | | john | | | 6 (Home) | | + +--------+ +--------+ + + | [id number] | Indust | Other | 09/20/ | | DEVONTE Arizmendi 061413 | | | rial | | 1875 | | [place] | | | | | | | [address] | + +--------+ +--------+ + + | Sarthak Nelson | [place] | Self | [birth year] | | [address] | | | [place] | | 1950 | [phone] | [place] [address] | | | red | | | 6 (Home) | | + +--------+ +--------+ + +"
--- OUTSIDE RECORDS SUMMARY | ~2019-08-11 | XMS | Encounter Summary ---
Demographics + + + | Address | [address] | | | [place] [address] | + + + | Home Phone | | + + + | Preferred Language | Unknown | + + + | Marital Status | | + + + | Yazidi Affiliation | 1038 | + + + | Race | Unknown | + + + | Ethnic Group | Unknown | + + + Author + + + | Author | [facility] | | | and [place] | + + + | Organization | [facility] | | | and [...] [place] | | | | | [address] | | + + + + + Care Team Providers + +------+ + | Care Manager Intel Name | Role | Phone | + [...] Ted Navarro | | | | | [place], [place] | [place] | | | | | [address] | [address] | | | | | [phone] | [phone] | | | | | | | [...]
--- OUTSIDE RECORDS SUMMARY | ~2019-08-11 | XMS | Encounter Summary ---
Demographics + + + | Address | [address] | | | [place] [address] | + + + | Home Phone [...] | Author | [facility] | | [...] [place] | | | | | [address] | | + + + + + Care Team Providers + +------+ + | Care V Belt Mold Assembler And Curer Name | Role | Phone | + [...] Ted Navarro | | | | | [place], [place] | [place] | | | | | [address] | [address] | | | | | [phone] | [phone] | | | | | | | [...]
--- OUTSIDE RECORDS SUMMARY | ~2019-08-11 | XMS | Encounter Summary ---
Demographics + + + | Address | [address] [place] [address] | | | [place] [address] | + + + | Home Phone | | + + + | Preferred Language | Unknown | + + + | Marital Status | Single | + + + | Anabaptist Affiliation | PEN | + + + [...] | | | | | [place] [address] | | + + + + + Care Team Providers + +------+ + | Care Traffic Rate Clerk Name | Role | Phone | + [...] [address] | | | | | | [facility] [address] | | | | | | [phone] | | | | | | | [...] of | | | | | | [facility] for | | | | | [...] + + | MANUEL | [address] | [place] [address] | | | DERMATOPATHOLOGY | [address] | | | + + + + + documented in this encounter Visit Diagnoses Not on filedocumented in this encounter"
--- OUTSIDE RECORDS SUMMARY | ~2019-08-11 | XMS | Encounter Summary ---
Demographics + + + | Address | [address] [place] [address] | | | [place] [address] | + + + | Home Phone [...] Author + + + | Author | [facility] | + + + | Organization | [facility] | + + + | Address | Unknown | + + + | Phone | Unavailable | + + + Support + + + + + | Name | Relationship | Address | Phone | + + + + + | Aileen Aranda | ECON | [address] | | | | | [place] [address] | | + + + + + Care Team Providers + +------+ + | Care Fancy Sewer Name | Role | Phone | + [...] Med Cntr | | | | | [address] | [facility] [address] | | | | | [address] | | | | | | [place] | | | | | | [address] | | | | | | | [...] Bruno Gray MD - 05/10/2015 1:26 PM [facility] [place] [address] ADDENDUM [place] [address] ADDENDUM: DATE OF ADMISSION: 05/04/2015 Because there is minimal change to improvement for his scrotal cellulitis, cefdinir was discussed in detail with infectious disease doctor at the [facility], Srinivas Lafleur, upon discharge, stating that cefdinir at 300 mg b.i.d. is being continued and if there is need to increase it any further based on patient's weight. Srinivas Lafleur spoke with Marlin Winter, who is a pharmacist at the [facility], and their mutual decision was to keep [...] for Marlin Winter, the pharmacist at the [facility], was [phone] [facility] 1631. ILL/MedQ /[id number] Electronically Signed 05/20/15 0736 MD MANOJ Abbott EDWARD E [id number] : 50 [id number] ADMIT DATE: 05/04/15 DISCHARGE DATE: 05/10/15 Bruno Verdin MD - 05/10/2015 12:02 PM [facility] [place] [address] [place] [address] SARTHAK ARANDA DATE OF ADMISSION: 05/04/2015 DATE [...] April 23 he went to the [facility] for urinary tract symptoms and [...] multiple times in the ED. SARTHAK ARANDA [id number] : 50 [id number] ADMIT DATE: 05/04/15 DISCHARGE DATE: 05/10/15 HOSPITAL [...] for 3 weeks in total. However, the [facility] only allows 14 days of antibiotics maximum [...] the infectious disease lead clinical at the [facility], his last CD4 count in February 2015 was 873. She did not suspect that this was an opportunistic infection causing epididymo-orchitis and did agree with 3rd generation cephalosporins as it would not only cover for the E coli that we isolated in his urinalysis from SARTHAK ARANDA [id number] : 50 [id number] ADMIT DATE: 05/04/15 DISCHARGE DATE: 05/10/15 the [facility] when he saw them 2 weeks ago, [...] 25 mg b.i.d. as needed. SARTHAK ARANDA [id number] : 50 [id number] ADMIT DATE: 05/04/15 DISCHARGE DATE: 05/10/15 6. Angier 5/325 mg 1 tablet q.4 hours as [...] up with the anticoagulation clinic at the [facility] for further management. 3. Lantus 40 units subcu b.i.d., down from 50 units subcu b.i.d. Stopped medications: 1. Doxycycline. 2. Warfarin 5 mg Wednesday, Wednesday, Wednesday, Wednesday. DISCHARGE FOLLOWUP: 1. With Dr. Estes within 3-7 days. 2. With [facility] infectious disease physician/specialist within 3-7 days. 3. Romain Harrington within 1-2 weeks. 4. Anticoagulation clinic within 1-2 days. DISCHARGE ACTIVITY: As tolerated. DISCHARGE DIET: Diabetic and low salt and low sodium. Spent more than 30 minutes counseling and coordinating care. DEYANIRA/MedQ /[id number] CC: Iain WHITE M.D. JESSE M. PAPAC, M.D. Electronically Signed 05/20/15 0735 Bruno Gray MD ARANDASARTHAK [id number] : 50 [id number] ADMIT DATE: 05/04/15 DISCHARGE DATE: 05/10/15 Tdocumented in this encounter Plan of Treatment Not on filedocumented as of this encounter Visit Diagnoses Not on filedocumented in this encounter"
--- OUTSIDE RECORDS SUMMARY | ~2019-08-11 | XMS | Encounter Summary ---
Demographics + + + | Address | [address] [place] [address] | | | [place] [address] | + + + | Home Phone [...] | | | | | [place] [address] | | + + + + + Care Team Providers + +------+ + | Care Company Doctor Name | Role | Phone | [...] [place] | | | | | | [address] | | | | | | [phone] | | | | | | | [...] POINT | | | GLUCOSE, | ID: [id number]: | | OF CARE | | | POC | [id number] Jesse Ivey | | TESTING | | | |Engineer Internship: [id number] Jesse Ivey | | | | | [...] POINT | | | GLUCOSE, | ID: [id number]: | | OF CARE | | | POC | [id number] John Goyal | | TESTING | | | |Engineer Internship: [id number] John Goyal | | | | | [...] POINT | | | GLUCOSE, | ID: [id number]: | | OF CARE | | | POC | [id number] John Goyal | | TESTING | | | |Engineer Internship: [id number] John Goyal | | | | | [...] POINT | | | GLUCOSE, | ID: [id number]: | | OF CARE | | | POC | [id number] John Goyal | | TESTING | | | |Engineer Internship: [id number] John Goyal | | | | | [...] POINT | | | GLUCOSE, | ID: [id number]: | | OF CARE | | | POC | [id number] Linsey Peñaloza | | TESTING | | | |Engineer Internship: [id number] Linsye Anabela | | | | | | [...] POINT | | | GLUCOSE, | ID: [id number]: | | OF CARE | | | POC | [id number] Jesse Ivey | | TESTING | | | |Engineer Internship: [id number] Jesse Ivey | | | | | [...] POINT | | | GLUCOSE, | ID: [id number]: | | OF CARE | | | POC | [id number] Davijasvir Diop | | TESTING | | | |Engineer Internship: [id number] Davi Diop | | | | | [...]
--- OUTSIDE RECORDS SUMMARY | ~2019-08-11 | XMS | Encounter Summary ---
Demographics + + + | Address | [address] | | | [place] [address] | + + + | Home Phone | | + + + | Preferred Language | Unknown | + + + | Marital Status | | + + + | Bahai Affiliation | 1038 | + + + | Race | Unknown | + + + | Ethnic Group | Unknown | + + + Author + + + | Author | [facility] | | | and [place] | + + + | Organization | [facility] | | | and [place] | + + + | Address | Unknown | + + + | Phone | Unavailable | + + + Support + + + + + | Name | Relationship | Address | Phone | + + + + + | Aileen Nelson | ECON | [address] | | | | | [place] | | | | | [address] | | + + + + + Care Team Providers + +------+ + | Care Commercial Green Building Architect Name | Role | Phone | [...] Ted Navarro | | | | | [place], [place] | [place] | | | | | [address] | [address] | | | | | [phone] | [phone] | | | | | | | [...]
--- OUTSIDE RECORDS SUMMARY | ~2019-08-11 | XMS | Encounter Summary ---
Demographics + + + | Address | [address] [place] [address] | | | [place] [address] | + + + | Home Phone [...] Author + + + | Author | [facility] | + + + | Organization | [facility] | + + + | Address | Unknown | + + + | Phone | Unavailable | + + + Support + + + + + | Name | Relationship | Address | Phone | + + + + + | Aileen Nelson | ECON | [address] | | | | | [place] [address] | | + + + + + Care Team Providers + +------+ + | Care Field Artillery Cannoneer Name | Role | Phone | + [...] | | | | Procedures | [facility] | [facility] | | | | | PET SKULL | V A MEDICAL | [facility] | | | | | BASE TO | CENTER | Pavilion | | | | | [facility] | [address] | [address] | | | | | | [facility] | [address] | | | | | [address] | [place], [place] | | | | | | [place], | [address] | | | | | | [place] [address] | Phone: | | | | | | Phone: | [phone] | | | | | | [phone] | Fax: | | | | | | Fax: | [phone] | | | | | | [phone] | | +--------+--------+ + + + + [...] Fer[address] | | | | | | [place], [place] | | | | | | [address] | | | | | | [phone] | | | +--------+ + + + [...]
--- OUTSIDE RECORDS SUMMARY | ~2019-08-11 | XMS | Encounter Summary ---
Demographics + + + | Address | [address] [place] [address] | | | [place] [address] | + + + | Home Phone | | + + + | Preferred Language | Unknown | + + + | Marital Status | Single | + + + | Jainism Affiliation | PEN | + + + [...] | | | | | [place] [address] | | + + + + + Care Team Providers + +------+ + | Care Beater Room Helper Name | Role | Phone | [...] [place] | | | | | | [address] | | | | | | [phone] | | | | | | | [...]
--- OUTSIDE RECORDS SUMMARY | ~2019-08-11 | XMS | Encounter Summary ---
Demographics + + + | Address | [address] [place] [address] | | | [place] [address] | + + + | Home Phone | | + + + | Preferred Language | Unknown | + + + | Marital Status | Single | + + + | Confucianism Affiliation | PEN | + + + [...] | | | | | [place] [address] | | + + + + + Care Team Providers + +------+ + | Care Banquet Set Up Person Name | Role | Phone | + +------+ + | Romain Harrington MD | PCP | | + +------+ + Encounter Details +--------+ + + + + | Date | Type | Department | Care Team | Description | +--------+ + + + + | 05/20/ | Outside | Diagnostic | Zoila Momin, | | | 2011 | Referral | Radiology at [facility] | MD DIONNE Oates | | | | Order | [address] | [facility] [address] | | | | | [place] Mailcode: | [address] | | | | | [address] | [address] [place], | | | | | [place], | [place] [address] | | | | | [place] [address] | [phone] | | | | | [phone] | | | +--------+ + + + [...]
--- OUTSIDE RECORDS SUMMARY | ~2019-08-11 | XMS | Encounter Summary ---
Demographics + + + | Address | [address] | | | [place] [address] | + + + | Home Phone | | + + + | Preferred Language | Unknown | + + + | Marital Status | | + + + | Restoration Affiliation | [phone] | + + + | Race | Unknown | + + + | Ethnic Group | Unknown | + + + Author + + + | Author | [facility] | | | and [place] | + + + | Organization | [facility] | | | and [place] | + + + | Address | Unknown | + + + | Phone | Unavailable | + + + Support + + + + + | Name | Relationship | Address | Phone | + + + + + | Aileen Nelson | ECON | [address] | | | | | [place] | | | | | [address] | | + + + + + Care Team Providers + +------+ + | Care Outdoor Advertising Leasing Agent Name | Role | Phone | [...] + + | 06/19/ | Hospital | [facility] | [place], | Ischemic | | 2018 - | Encounter | MED CTR SURGICAL | [address] | cerebrovascular | | | | [address] | [place], [place] | accident (CVA) | | 06/22/ | | [place] [address] | [id number] | ([facility]); Stage 3 | | 2018 | | [phone] | | chronic kidney | | | | | | disease ([facility]); IDDM | | | | | | (insulin dependent | | | | | | diabetes mellitus) | | | | | | ([facility]); HIV (human | | | | | | immunodeficiency | | | | | | virus infection) | | | | | | ([facility]); Essential | | | | | [...] has been on warfarin. Patient presented to [place]. Patient was out of timeframe fo r [...] narrowed bilaterally. Jana huber was transferred to [place] for further evaluation. For details please refer [...] None CONSULTATIONS: In patient Rehab, PT, OT, STOGY MAKER IMAGING PERFORMED: Ct Head Wo Contrast Result [...] Itching MEDICATIONS ON DISCHARGE: Current Facility-Administered Medications: wzxhlpig-dbxyeebfwgtd-qgvvIGYfpf (TRIUMEQ) 600-50-300 mg per tablet 1 tablet [...] + + +---------+ + + | [place] [address] | Take 900 mg by mouth [...] | | | | | units if [id number] | | | | | | | [...] acutely. 3: 54 PM PDTRolph, Ghanshyam Bull [facility] - 06/21/2018 3:44 PM PDTFormatting of this [...] current medication bottles X Pharmacy list names: [facility] X [employer] insurance reported information X [...] Medication added: Medication: Prior to Admission Sig: Csqnzsji-lhsvxrphygdd-ojmrLGMnen 600-50-300 mg Take one tablet by mouth [...] Take two tablets by mouth daily [place] 450 mg Take 900 mg by mouth [...] own beer and whiskey) Other: Warfarin info [facility] antocoag clinic Goal: 2.0-3.0 INR 1.8 on 06/08 Dose: 5 mg on Wednesday and Wednesday and 2.5 mg all other days Best possible HOSPITAL ACCOUNT LIAISON medication list after pharmacy review: PT REPORTED TAKING NOT TAKING Medication Sig Last Dose Dispense Doc. Provider gyftowge-vjvoajyrfpgo-vjqhLQZxjf (TRIUMEQ) 600-50-300 mg per tablet Take 1 [...] mouth Daily. Taking Jt Haider MD [place] 450 MG CAPS Take 900 mg by [...] performed and electronically signed by Roxy Escobedo, Concrete Mason 15:03 Electronically signed by: Ghanshyam Newman RPH [...] none Drug Interactions: Acetaminophen NON-valvular AFIB patients: NSP8DN7-HWIn score (max 9): 6 ?CHF, ?HTN, ?Age > 75 (2), ?DM, ? prior CVA,VTE (2), ?OK,PAD, ?Age 64-74, ?Female Recent Labs Lab 06/21/18 [...] Hct, INR 4. Warfarin education received NO. HOSPITAL ACCOUNT LIAISON 5. Pharmacist to follow daily Warfarin Dosing Nomogram Per P&T-approved Electronically signed by: Alberto Isaac PharmD 06/21/2018 11:20 Ying Lopez MD - 06/21/2018 10:57 AM P DT HOSPITALIST PROGRESS NOTE Patient: Sarthak Nelson : 1950: Age: 67 y.o. MedRec: [id number] PCP: Jericho Cao MD Admission date: 06/19/2018 [...] has been on warfarin. Patient presented to [place]. Patient was out of timeframe fo r [...] narrowed bilaterally. Jana huber was transferred to [place] for further evaluation. MEDICATIONS: nyacvxsl-rbsflecuygsb-wmoiOENzyq 1 tablet Oral Nightly [START ON 06/22/2018] [...] ECGs available Confirmed by DAVID BARAHONA, NILAY ([id number]) on 06/20/2018 6:38:00 AM POC Glucose Collection [...] E' Septal Velocity 4 cm/s MV Deceleration [place] 765.46 cm/s2 MV Deceleration Time 173.25 msec [...] Home regimen: TBD after med-rec Managed by: [place] [facility] previously adjusting coumadin for chronic Afib per Dr Anmol Isaac Sensitizers: none Drug Interactions: Acetaminophen, allopurinol NON-valvular AFIB patients: NOY5MN8-PDZi score (max 9): 6 ?CHF, ?HTN, ?Age > 75 (2), ?DM, ? prior CVA,VTE (2), ?OK,PAD, ?Age 64-74, ?Female Recent Labs Lab 06/21/18 [...] am: INR 4. Warfarin education received NO. HOSPITAL ACCOUNT LIAISON 5. Pharmacist to follow daily Warfarin Dosing [...] none Drug Interactions: Acetaminophen NON-valvular AFIB patients: MHB3HX2-DUVv score (max 9): 6 ?CHF, ?HTN, ?Age > 75 (2), ?DM, ? prior CVA,VTE (2), ?OK,PAD, ?Age 64-74, ?Female Recent Labs Lab 06/20/18 [...] Hct, INR 4. Warfarin education received NO. HOSPITAL ACCOUNT LIAISON 5. Pharmacist to follow daily Warfarin Dosing Nomogram Per P&T-approved Electronically signed by: Alberto Isaac PharmD 06/20/2018 11:41 Liane Sanders MD - 06/20/2018 9:40 AM PDT [place], [place] HOSPITALIST PROGRESS NOTE Patient: Sarthak Nelson : 1950: Age: 67 y.o. MedRec: [id number] Admission date: 06/19/2018 Hospital day # : [...] discuss with neurologist. On dysphagia diet per STOGY MAKER. Subtherapeutic INR since mid 04/2018 - end 05/2018despite [facility] antico [facility] adjusting coumad in for chronic afib. Per [facility] care everywhere PMHX 1. Cellulitis of abdominal [...] Kcl 20meq Qday Triumeq/Abacavir,dolutegravir,lamivudi clorthalidone 25 Qday---off xifxvefndy36 tid---off Lasix ---off Allergies: Current Medications: Allergies Allergen Reactions Tape [Adhesive & Tape] Current Facility-Administered Medications Medication Dose Route Frequency Provider Last Rate Last Dose tfigpvkj-sxwkxtooqdnk-hfknGGCpiu (TRIUMEQ) 600-50-300 mg per tablet 1 tablet [...] Consult Dr. 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 -pacer is not amenable with MRI -TTE with bubble study--negative -Telemetry / trop neg / PT/OT/STOGY MAKER Neuro checks -no med rec tech, I reviewed the medications in his [employer] grocery bag and recent med list faxed from [place], documented above. ALL diuretics/antihypertensives have been held. IDDM Cont lantus lispro - lower than home dose HTN Continue imdur HIV -Cont Abacavir,dolutegravir,lamivudi - multiple bottles Are in his [employer] bag Chronic systolic-diastolic heart failure/ VT / chronic A fib / pacer Patient reports holding lasix due to kidney injury, listed on [facility] information -Hold metoprolol for now given permissive HTN F/U [facility] CKD 3 Cr 1.77 -Cr 2.4 in 2017 at [facility] RACHELLE/Morbid obesity bmi 47.9 CPAP Chronic leg edema, VENOUS STASIS ULCER Wound care ordered F/U [facility] wound clinic FEN: thickened liquid PPX: Warfarin - SUBTHERAPEUTIC SINCE 05/02/18 (06/09/18 NOTE per [facility] care everywhere) Disp: PT/OT/STOGY MAKER ordered Plan discussed with patient. Subjective by date Unhappy w/ thickened liquids, chronic pain Treatment log Imdur, stop asa. Continue lipitor/coumadin Exam On room air then tolerating home CPAP General NAD A and O obese Cardiac S1 S2 irregular Lung CTAB Abdominal soft nt nd + BS obese Neuro dysarthric, drooling left, poor tongue protrusion to left, weaker shoulder shrug left 4/5 left pig machine operator, 3/5 left elbow flexion, 3/5 left shoulder flexion 5/5 right pig machine operator/elbow flexion/shoulder flexion 4/5 left lower extremity 4+/5 [...] ECGs available Confirmed by NILAY HERNANDEZ MD ([id number]) on 06/20/2018 6:38:00 AM POC Glucose Collection [...] 12:08 PM Liane Isaac MD 06/20/2018 13:16 [facility] Portions of this chart may have been created with [employer] voice recognition software. Occasi onal wrong-word or [...] + | [facility] | [address] | [place] | [phone] | | [facility] | | [address] | | | - LABORATORY | | [...] ST. | [address] | [place] | [phone] | | [facility] | | [address] | | | - LABORATORY | | [...] [address] | [place] | [phone] | | [facility] | | [address] | | | - LABORATORY | | [...] mL/min/1.73m2 | [facility] | | | [place] | RATE,ESTIMATED | | MEDICAL | | | | mL/min/1.41y1Qweq than | | CENTER - | | [...] + | [facility] | [address] | [place] | [phone] | | [facility] | | [address] | | | - LABORATORY | | [...] + | [facility] | [address] | [place] | [phone] | | [facility] | | [address] | | | - LABORATORY | | [...] [address] | [place] | [phone] | | [facility] | | [address] | | | - LABORATORY | | [...] [address] | [place] | [phone] | | [facility] | | [address] | | | - LABORATORY | | [...] [address] | [place] | [phone] | | [facility] | | [address] | | | - LABORATORY | | [...] [address] | [place] | [phone] | | [facility] | | [address] | | | - LABORATORY | | [...] ST. | [address] | [place] | [phone] | | [facility] | | [address] | | | - LABORATORY | | [...] 1.62 (H) | 0.60 - 1.30 | [facility] | | | | | mg/dL | [facility] | | | | | | MEDICAL | | | | | | CENTER - | | | | | | LABORATORY | | + + + + + + | eGFR if not | 43 (L)Comment: | >=60 | [facility] | | | | GLOMERULAR FILTRATION | mL/min/1.73m2 | [facility] | | | [place] | RATE,ESTIMATED | | MEDICAL | | | | mL/min/1.40f6Voqe than | | CENTER - | | [...] + | [facility] | [address] | [place] | [phone] | | [facility] | | [address] | | | - LABORATORY | | [...] | | | | | | [employer] | | | | | [...] + | [facility] [facility] | [address] | [place] | [phone] | | [facility] | | [address] | | | - LABORATORY | | [...] + | [facility] | [address] | [place] | [phone] | | [facility] | | [address] | | | - LABORATORY | | [...] [address] | [place] | [phone] | | [facility] | | [address] | | | - LABORATORY | | [...] | | | | | | n [place] | | | | | + +--------+ [...] 330 | | | YUMIKO Patient Number [id number] Date of Study | | | 06/20/2018 Visit Number [id number] Accession | | | [id number] Referring Physician DWIGHT JARRETT Number | | | Date of 1950 Carbon Furnace Operator Helper | | | GREGG CHAHAL Age 67 year(s) | | | Interpreting WANDA HOFFMANN MD | | | Blending Machine Operator SHUN SALGUERO | | | | | | WANDA Gender Male Nurse | | | [employer] Counter Person | | | Procedure Type of Study [...] 1.59 cm PW Diastolic: 1.77 cm EF Ilaokeptr86% EF Calculated: 65% | | | Miscellaneous [...] Diastolic: 1.77 cm | | | EF Tkleftdaz35% | | | EF Calculated: 65% | [...] Number 330 | | YUMIKO Patient Number [id number] Date of Study 06/20/2018 Visit | | Number [id number] Referring Physician DWIGHT | | KOLBY Number Date of 1950 Carbon Furnace Operator Helper GREGG CHAHAL | | Age 67 year(s) Interpreting WANDA HOFFMANN MD | | Blending Machine Operator SHUN SALGUERO | | WANDA Gender Male [...] PW Diastolic: 1.77 cm EF | | Zsvqvpsux28% EF Calculated: 65% Miscellaneous Aorta Aortic Root: [...] PW Diastolic: 1.77 cm | | EF Jbevwqomm28% | | EF Calculated: 65% | | [...] [address] | [place] | [phone] | | [facility] | | [address] | | | - LABORATORY | | [...] | | | | | | [employer] | | | | | [...] [address] | [place] | [phone] | | [facility] | | [address] | | | - LABORATORY | | [...] [address] | [place] | [phone] | | [facility] | | [address] | | | - LABORATORY | | [...] | | | | NILAY HERNANDEZ MD ([id number]) | | | | | | on [...] | | | | | | [employer] | | | | | [...] ST. | [address] | [place], [place] | [phone] | | [facility] | | [address] | | | - LABORATORY | | [...] + | [facility] [facility] | [address] | [place] | [phone] | | [facility] | | [address] | | | - LABORATORY | | [...] [address] | [place] | [phone] | | [facility] | | [address] | | | - LABORATORY | | [...] + | [facility] | [address] | [place] | [phone] | | [facility] | | [address] | | | - LABORATORY | | [...] ST. | [address] | [place], [place] | [phone] | | [facility] | | [address] | | | - LABORATORY | | [...] + | [facility] | [address] | [place] | [phone] | | [facility] | | [address] | | | - LABORATORY | | [...] + | [facility] [facility] | [address] | [place] | [phone] | | [facility] | | [address] | | | - LABORATORY | | [...] | mL/min/1.73m2 | [facility] | | | [place] | RATE,ESTIMATED | | MEDICAL | | | | mL/min/1.84h9Wtao than | | CENTER - | | [...] [address] | [place] | [phone] | | [facility] | | [address] | | | - LABORATORY | | [...] [address] | [place] | [phone] | | [facility] | | [address] | | [...] | | | | | | [employer] | | | | | [...] [address] | [place] | [phone] | | [facility] | | [address] | | | - LABORATORY | | [...] [address] | [place] | [phone] | | [facility] | | [address] | | | - LABORATORY | | [...] | | GLOMERULAR FILTRATION | mL/min/1.73m2 | [facility] | | | [place] | RATE,ESTIMATED | | MEDICAL | | | | mL/min/1.54p2Ozfz than | | CENTER - | | [...] [address] | [place] | [phone] | | [facility] | | [address] | | | - LABORATORY | | [...] | | Count | | | [facility] | | | | | | MEDICAL [...] [address] | [place] | [phone] | | [facility] | | [address] | | | - LABORATORY | | | | + + + + + documented in this encounter Visit Diagnoses + + | Diagnosis | + + | Ischemic cerebrovascular accident (CVA) (HCC) | + + | Stage 3 chronic kidney disease (HCC) | + + | IDDM (insulin dependent diabetes mellitus) ([facility]) Type II or unspecified type diabetes | | mellitus without mention of complication, not stated as uncontrolled | + + | HIV (human immunodeficiency virus infection) ([facility]) Asymptomatic human | | immunodeficiency virus [...] | 1 tablet | | | | hirgasja-hoptcnbscdru-pskoTPIura | | 18 10:57 | | | [...] | | | | | | | (pboyvxfy-yyfkqncgdnpd-zvhaSFDdpi | | | | | | | [...] | | | | | NPO, Daytime 7877-8828 Use NIGHT | | | | | | | DOSE for doses scheduled: | | | | | | | HS, 3AM, Nighttime 5657-0363, | | | | | | + [...]
--- OUTSIDE RECORDS SUMMARY | ~2019-08-11 | XMS | Encounter Summary ---
Demographics + + + | Address | [address] [place] [address] | | | [place] [address] | + + + | Home Phone | | + + + | Preferred Language | Unknown | + + + | Marital Status | Single | + + + | Yazdanism Affiliation | PEN | + + + [...] | | | | | [place] [address] | | + + + + + Care Team Providers + +------+ + | Care Automation Qa Tester Name | Role | Phone | + +------+ + PCP | Unavailable | + +------+ + Encounter Details +--------+ + + + + | Date | Type | Department | Care Team | Description | +--------+ + + + + | 10/13/ | Results | Registration [id number] | [facility] | | | 2009 | Only | NAOMI Adler | [phone] | | | | | Rd Mailcode: [id number] | | | | | | [place], [place] | | | | | | [address] | | | | | | [phone] | | | +--------+ + + + [...] + + | Performing | Address | City[facility] | Phone Number | | Organization | | | | + +---------+ + + | [facility] DEPARTMENT OF | | | | | RADIOLOGY | | | | + +---------+ + + documented in this encounter Visit Diagnoses Not on filedocumented in this encounter"
--- OUTSIDE RECORDS SUMMARY | ~2019-08-11 | XMS | Encounter Summary ---
Demographics + + + | Address | [address] [place] [address] | | | [place] [address] | + + + | Home Phone [...] | | | | | [place] [address] | | + + + + + Care Team Providers + +------+ + | Care Research Editor Name | Role | Phone | + [...] | | Results for this | | [address] | e | 6:03 PM | | [...] POINT | | | GLUCOSE, | ID: [id number]: | | OF CARE | | | POC | [id number] Naida Lyles | | TESTING | | | |Second Rigger: [id number] Naida Lyles | | | | | [...] | + +---------+ + + SCROTAL ULTRASOUND [id number] (05/08/2015 6:03 PM PDT) + + | Specimen | + + | | + + + + + | Narrative | Performed At | + + + | Name: | [facility] | | ARANDA,SARTHAK E | DEPARTMENT OF | | Phys: Bruno Gray MD | RADIOLOGY | | | | | : 1950 Age: 64 Sex: M | | | Acct: [id number] Loc: 426 2 | | | | | | Exam Date: 05/08/2015 Status: ADM IN | | | Radiology No: [id number] | | | Unit No: | | | [id number] EXAM# TYPE/EXAM | | | RESULT | | | [id number] US/SCROTAL ULTRASOUND 63786 | | | EXAM: SCROTAL ULTRASOUND | [...] | | | Transcribed Date/Time: 05/08/2015 (1803) Executive Director Of Nursing: | | | SPEECHQ PAGE 1 Signed Report | | | | | + + + + + | Procedure Note | + + | Interface, Radiology Results - 05/08/2015 6:04 PM PDT | | Name: SARTHAK ARANDA | | Phys: Bruno Gary MD : | | 1950 Age: 64 Sex: M Acct: [id number] | | Loc: 426 2 Exam Date: 05/08/2015 | | Status: ADM IN Radiology No: [id number] | | Unit No: [id number] EXAM# TYPE/EXAM | | RESULT [id number] US/SCROTAL ULTRASOUND | | 39999 EXAM: SCROTAL ULTRASOUND | | CLINICAL HISTORY: [...] DICKERSON | | Electronically signed by: Tash oNlan MD | | CC: Romain Harrington MD | | Transcribed Date/Time: | | 05/08/2015 (1803) Executive Director Of Nursing: GABRIELQ PAGE 1 Signed Report | | [...] | | | | Transcribed Date/Time: 05/08/2015 (7966) | | Executive Director Of Nursing: SPEECHQ | | | | | | [...] POINT | | | GLUCOSE, | ID: [id number]: | | OF CARE | | | POC | [id number] Raisa Jesus Manuel | | TESTING | | | |Second Rigger: [id number] Raisa Ken | | | | | [...] POINT | | | GLUCOSE, | ID: [id number]: | | OF CARE | | | POC | [id number] Raisa Ken | | TESTING | | | |Second Rigger: [id number] Raisa Ken | | | | | [...] [facility] POINT | | | GLUCOSE, | [id number]: | | OF CARE | | | POC | [id number] Carie Mueller | | TESTING | | [...] [facility] | | | PLASMA | to eyeglass cutter: ADD ON | | MEDITECH | | | (LAB) | PREFERRED | | LABORATORY | | + + + + + + + + | Specimen | + + | | + + + + + | Narrative | Performed At | + + + | Comments to eyeglass cutter: ADD ON PREFERRED | [facility] | [...] [facility] | | | PLASMA | to eyeglass cutter: ADD ON | mmol/L | MEDITECH | | | (LAB) | PREFERRED | | LABORATORY | | + + + + + + + + | Specimen | + + | | + + + + + | Narrative | Performed At | + + + | Comments to eyeglass cutter: ADD ON PREFERRED | [facility] | [...]
--- OUTSIDE RECORDS SUMMARY | ~2019-08-11 | XMS | Clinical Summary ---
Demographics + + + | Address | [address] [place] [address] | | | [place] [address] | + + + | Home Phone | | + + + | Preferred Language | Unknown | + + + | Marital Status | Single | + + + | Anabaptism Affiliation | PEN | + + + | Race | White | + + + | Ethnic Group | Not or | + + + Author + + + | Author | [facility] IN[facility]IENT RE[facility] LOC | + + + [...] | | | | | [place] [address] | | + + + + + Care Team Providers + +------+ + | Care Irrigationist Designer Name | Role | Phone | + +------+ + | Romain Harrington MD | PCP | | + +------+ + Source Comments MANUEL is fully live on both [facility] Allergies + + + + + [...] 0 | | | Activ | | 2-tbe-zoc-fish oil | two times daily. | | [...] | [place] | | natalie | | [id number] | ity | | | RIAL | | for | | [place], [place] | | | | ACCT | | all | | [address] | | | | CONTRA | | dates | | | | | | CT | | | | | | + +--------+ +--------+ + +--------+ | [facility] | [place] | [phone] | Effect | [id number] | [address] | Agency | | ADMINISTRATION | COMMUN | | natalie | 8 | [address]35 | | | | ITY | | for | | [place], | | | | [place]SOU | | all | | [place] [address] | | | | RCE | | dates | | | | + +--------+ +--------+ + +--------+ | [facility] | [facility] | [phone] | Effect | [id number] | [address] | Agency | | ADMINISTRATION | NS | | natalie | 8 | [address]35 | | | | ADMINI | | for | | [place], | | | | STRATI | | all | | [place] [address] | | | | ON | | [...] | | | | | | | [address] | | + +--------+ +--------+ + +--------+ [...] 1950 | [phone] | [place] [address] | | | john | | | 6 (Home) | | + +--------+ +--------+ + + | Sarthak Nelson | Person | Self [birth year] | [address] | | | al/Fam | | 1950 | [phone] | [place] [address] | | | john | | | 6 (Home) | | + +--------+ +--------+ + + | [id number] | Indust | Other | 09/20/ | | DEVONTE Arizmendi 770956 | | | rial | | 18[address] | | [place] | | | | | | | [address] | + +--------+ +--------+ + + | Sarthak Nelson | [place] | Self | [birth year] | [address] | | | Sponso | | 1950 | [phone] | [place] [address] | | | red | | | 6 (Home) | | + +--------+ +--------+ + +"
--- OUTSIDE RECORDS SUMMARY | ~2019-08-11 | XMS | Encounter Summary ---
Demographics + + + | Address | [address] [place] [address] | | | [place] [address] | + + + | Home Phone [...] | | | | | [place] [address] | | + + + + + Care Team Providers + +------+ + | Care Harvest Contractor Name | Role | Phone | [...] POINT | | | GLUCOSE, | ID: [id number]: | | OF CARE | | | POC | [id number] Geraldo Wells | | TESTING | | | |Short Story Writer: [id number] Geraldo Wells | | | | | [...] POINT | | | GLUCOSE, | ID: [id number]: | | OF CARE | | | POC | [id number] Erik Saalzar | | TESTING | | | |Short Story Writer: [id number] rEik Salazar | | | | | | [...] POINT | | | GLUCOSE, | ID: [id number]: | | OF CARE | | | POC | [id number] Erik Salazar | | TESTING | | | |Short Story Writer: [id number] Erik Salazar | | | | | [...] [facility] PO[facility] | | | GLUCOSE, | [id number]: | | OF CARE | | | POC | [id number] Erik Salazar | | TESTING | | | |Short Story Writer: [id number] Erik Salazar | | | | | [...]
--- OUTSIDE RECORDS SUMMARY | ~2019-08-11 | XMS | Encounter Summary ---
Demographics + + + | Address | [address] [place] [address] | | | [place] [address] | + + + | Home Phone [...] + + + | Author | [facility] | + + + | Organization | [facility] | + + + | Address | Unknown | + + + | Phone | Unavailable | + + + Support + + + + + | Name | Relationship | Address | Phone | + + + + + | Aileen Nelson | ECON | [address] | | | | | [place] [address] | | + + + + + Care Team Providers + +------+ + | Care Bottle Line Worker Name | Role | Phone | [...] (Primary Dx); | | | | [place], [place] | [place] [address] | Hydrocele, | | | | [address] | [phone] | unspecified | | | | [phone] | | hydrocele type | +--------+---------+ + [...] up with your ID physician at the [facility] in 4 weeks Try and elevated you scrotum as often/much as possible documented in this encounter Progress Notes Edmond Estes MD - 05/17/2015 9:11 AM PDTFormatting of this note might be different fr om the original. ID: Ed is a 64-year-old male. His primary care provider is Romain Harrington MD. CC: Epididymitis and hydrocele. HPI: Ed was seen at [facility] and kept as an inpatient for a few days with cellulitis. He was eventu ally able to be transitioned over from IV to p.o. medications and was discharged home. He w as intended to have close followup with his infectious disease provider at the CT. Mr. Nelson did not follow up at the CT. He states the pain is improving, the redness is improved. He denies any dysuria or blood in the urine. He has had no fevers or chills. Past Medical History Diagnosis Date Diabetes mellitus Human immunodeficiency virus (HIV) disease Coronary atherosclerosis of unspecified type of vessel, [place] or graft Acute, but ill-defined, cerebrovascular disease Unspecified essential hypertension Arrhythmia a-fib, v-fib Chronic kidney disease (CKD), stage III (moderate) Paroxysmal SVT (supraventricular tachycardia) Congestive heart failure, unspecified Atrial fibrillation Obesity RACHELLE (obstructive sleep apnea) High cholesterol Back pain ED (erectile dysfunction) Epididymitis 2009 Cellulitis Venous insufficiency (chronic) (peripheral) Past Surgical History Procedure Laterality Date Aicd implantation Meds: Current outpatient prescriptions: ABACAVIR/DOLUTEGRAVIR/LAMIVUDI (DXAKHBDZ-FCGEVAHMOVSW-GDZ IVUD ORAL), Take 600 mg by mouth [...] once daily. , Disp: , Rfl: omega 4-brc-jko-fish oil (FISH OIL) 100-160-1,000 mg oral capsule, [...] encouraged them to follow up with the CT as previously described. I would like him to see urology either at the CT or to return to our office. I have asked him to see us back i anand three or four weeks if he has not been seen at the CT. We can also discuss at that time aliza webb or not the urinary tract infections need any workup. 2. He will continue and finish his antibiotics. Edmond Estes M.D./winnie A Records Management Coordinator was offered to the patient. The offer [...]
--- OUTSIDE RECORDS SUMMARY | ~2019-08-11 | XMS | Clinical Summary ---
Demographics + + + | Address | [place] [address] | + + + | Home Phone | | + + + | Preferred Language | Unknown | + + + | Marital Status | Unknown | + + + | Voodoo Affiliation | Unknown | + + + | Race | Unknown | + + + | Ethnic Group | Unknown | + + + Author + + + | Author | [employer] [facility] [facility] (Historical as of | | | 05-06-19) | + + + | Organization | [facility] (Historical as of | | | 05-06-19) | + + + | Address | Unknown | + + + | Phone | Unavailable | + + + Care Team Providers + +------+ + | Care Air Crew Officer Name | Role | Phone | [...]
--- OUTSIDE RECORDS SUMMARY | ~2019-08-11 | XMS | Encounter Summary ---
Demographics + + + | Address | [address] [place] [address] | | | [place] [address] | + + + | Home Phone [...] + + | Author | [facility] | + + + | Organization | [facility] | + + + | Address | Unknown | + + + | Phone | Unavailable | + + + Support + + + + + | Name | Relationship | Address | Phone | + + + + + | Aileen Nelson | ECON | [address] | | | | | [place] [address] | | + + + + + Care Team Providers + +------+ + | Care Tenter Name | Role | Phone | + [...] By Patient | | | | [place], [place] | [place] [address] | | | | | [address] | [phone] | | | | | [phone] | | | +--------+ + + + [...]
--- OUTSIDE RECORDS SUMMARY | ~2019-08-11 | XMS | Encounter Summary ---
Demographics + + + | Address | [address] [place] [address] | | | [place] [address] | + + + | Home Phone [...] | | | | | [place] [address] | | + + + + + Care Team Providers + +------+ + | Care Clamper Name | Role | Phone | + [...] | | Results for this | | [id number] | e | 3:22 PM | | [...] POINT | | | GLUCOSE, | ID: [id number]: | | OF CARE | | | POC | [id number] John Goyal | | TESTING | | | |Lead Cargo Mover: [id number] John Goyal | | | | | [...] POINT | | | GLUCOSE, | ID: [id number]: | | OF CARE | | | POC | [id number] Adam Guille | | TESTING | | | |Lead Cargo Mover: [id number] Adam Guille | | | | | [...] | + +---------+ + + SCROTAL ULTRASOUND [id number] (05/04/2015 3:22 PM PDT) + + | Specimen | + + | | + + + + + | Narrative | Performed At | + + + | Name: | [facility] | | [facility] | DEPARTMENT OF | | Phys: Sonu Welch MD | RADIOLOGY | | | | | : 1950 Age: 64 Sex: M | | | Acct: [id number] Loc: 426 2 | | | | | | Exam Date: 05/03/2015 Status: ADM IN | | | Radiology No: | | | Unit No: | | | [id number] EXAM# TYPE/EXAM | | | RESULT | | | [id number] US/SCROTAL ULTRASOUND 57839 | | | TESTICULAR ULTRASOUND | | [...] | Sex: M | | | Acct: [id number] Loc: 426 2 | | | Exam Date: 05/03/2015 | | | Status: ADM IN | | | Radiology No: | | | Unit No: [id number] | | | EXAM# TYPE/EXAM RESULT | | | [id number] US/SCROTAL | | | ULTRASOUND 08409 | | | Findings reviewed with Dr. Estes May 04, | | | 2014. [id number] | | | REPORT ELECTRONICALLY SIGNED 05/05/2015 (7158) | | | Reported By: Neetu HERNÁNDEZ MD | | | Signed By: Scooter Hernández M.D. | | | | | | Technologist: LISA DICKERSON | | | Electronically signed by: Neetu BUCK | | | SAGAR BARAHONA CC: Romain Harrington MD | | | | | | | | | Transcribed Date/Time: | | | 05/04/2015 (749) System Support Technician: [email or web address] PAGE | | | 2 Signed Report | | | | | + + + + + | Procedure Note | + + | Interface, Radiology Results - 06/03/2015 10:36 AM PDT | | Name: [facility] | | Phys: Sonu Welch MD : | | 1950 Age: 64 Sex: M Acct: [id number] | | Loc: 426 2 Exam Date: 05/03/2015 | | Status: ADM IN Radiology No: | | Unit No: [id number] EXAM# TYPE/EXAM | | RESULT [id number] US/SCROTAL ULTRASOUND | | 12514 TESTICULAR ULTRASOUND | | INDICATION: Right-sided scrotal [...] Age: 64 Sex: M Acct: | | [id number] Loc: 426 2 Exam Date: | | 05/03/2015 Status: ADM IN Radiology No: | | Unit No: [id number] EXAM# | | TYPE/EXAM RESULT [id number] | | US/SCROTAL ULTRASOUND 27976 Findings | | reviewed with Dr. Estes May 04, 2015. [id number] | | REPORT ELECTRONICALLY SIGNED 05/05/2015 (1635) Reported | | By: Neetu HERNÁNDEZ MD Signed By: Scooter Hernández M.D. | | Technologist: LISA DICKERSON | | Electronically signed by: Neetu HERNÁNDEZ MD CC: Romain Harrington MD | | | | Transcribed Date/Time: 05/04/2015 (1630) | | System Support Technician: [facility] 2 Signed Report | | | [...] Age: 64 Sex: M | | Acct: [id number] Loc: 426 2 | | Exam Date: 05/03/2015 Status: ADM IN | | Radiology No: | | Unit No: [id number] | | | | | | | | | |EXAM# TYPE/EXAM RESULT | |[id number] US/SCROTAL ULTRASOUND 02594 | | | | Findings reviewed with Dr. Estes May 04, 2015. | | | | [id number] | | | | | | REPORT [...] | | | | Transcribed Date/Time: 05/04/2015 (6616) | | System Support Technician: PUSHPAW | | | | | [...] POINT | | | GLUCOSE, | ID: [id number]: | | OF CARE | | | POC | [id number] Adam Han | | TESTING | | | |Lead Cargo Mover: [id number] Adam Han | | | | | [...] POINT | | | GLUCOSE, | ID: [id number]: | | OF CARE | | | POC | [id number] Megan | | TESTING | | | [...] | | TESTING | | | | [id number]: | | | | | | [id number] Bruceheron Prettya | | | | | [...]
--- OUTSIDE RECORDS SUMMARY | ~2019-08-11 | XMS | Encounter Summary ---
Demographics + + + | Address | [address] [place] [address] | | | [place] [address] | + + + | Home Phone | | + + + | Preferred Language | Unknown | + + + | Marital Status | Single | + + + | Mandaeism Affiliation | PEN | + + + | Race | White | + + + | Ethnic Group | Not or | + + + Author + + + | Author | [facility] | + + + | Organization | [facility] | + + + | Address | Unknown | + + + | Phone | Unavailable | + + + Support + + + + + | Name | Relationship | Address | Phone | + + + + + | Aileen Nelson | ECON | [address] | | | | | [place] [address] | | + + + + + Care Team Providers + +------+ + | Care Bus Driver/Monitor Name | Role | Phone | + [...] [place] | | | | | | [address] | | | +--------+ + + + [...]
--- OUTSIDE RECORDS SUMMARY | ~2019-08-11 | XMS | Encounter Summary ---
Demographics + + + | Address | [address] [place] [address] | | | [place] [address] | + + + | Home Phone [...] Author | [facility] | + + + | Organization | [facility] | + + + | Address | Unknown | + + + | Phone | Unavailable | + + + Support + + + + + | Name | Relationship | Address | Phone | + + + + + | Aileen Nelson | ECON | [address] | | | | | [place] [address] | | + + + + + Care Team Providers + +------+ + | Care Tire Vulcanizer Name | Role | Phone | + [...] | | | | | [place] [address] | | | | | | [phone] | | | | | | | [...] POINT | | | GLUCOSE, | ID: [id number]: | | OF CARE | | | POC | [id number] Rowena Williamson | | TESTING | | | |Photographer News: [id number] Rowena Williamson | | | | | [...] [facility] POINT | | | GLUCOSE, | [id number]: | | OF CARE | | | POC | [id number] Rowena Williamson | | TESTING | | | |Photographer News: [id number] Rowena Williamson | | | | | [...]
--- OUTSIDE RECORDS SUMMARY | ~2019-08-11 | XMS | Encounter Summary ---
Demographics + + + | Address | [address] [place] [address] | | | [place] [address] | + + + | Home Phone [...] Author + + + | Author | [facility] | + + + | Organization | [facility] | + + + | Address | Unknown | + + + | Phone | Unavailable | + + + Support + + + + + | Name | Relationship | Address | Phone | + + + + + | Aileen Nelson | ECON | [address] | | | | | [place] [address] | | + + + + + Care Team Providers + +------+ + | Care Electronic Operator Name | Role | Phone | [...] [place] | | | | | | [address] | | | +--------+ + + + [...]
--- OUTSIDE RECORDS SUMMARY | ~2019-08-11 | XMS | Encounter Summary ---
Demographics + + + | Address | [address] | | | [place] [address] | + + + | Home Phone [...] + + | Author | [facility] | | | and [place] | + + + | Organization | [facility] | | | and [place] | + + + | Address | Unknown | + + + | Phone | Unavailable | + + + Support + + + + + | Name | Relationship | Address | Phone | + + + + + | Aileen Nelson | ECON | [address] | | | | | [place] | | | | | [address] | | + + + + + Care Team Providers + +------+ + | Care Farm Contractor Name | Role | Phone | [...] Ted Navarro | | | | | [place], [place] | [place] | | | | | [address] | [address] | | | | | [phone] | [phone] | | | | | | | [...] | | | | | | [facility] | | | | | [facility] | | | | | | [place]. IT HAS NOT BEEN | | | [...]
--- OUTSIDE RECORDS SUMMARY | ~2019-08-11 | XMS | Encounter Summary ---
Demographics + + + | Address | [address] | | | [place] [address] | + + + | Home Phone | | + + + | Preferred Language | Unknown | + + + | Marital Status | | + + + | Rastafarian Affiliation | 1038 | + + + | Race | Unknown | + + + | Ethnic Group | Unknown | + + + Author + + + | Author | [facility] | | | and [place] | + + + | Organization | [facility] | | | and [place] | + + + | Address | Unknown | + + + | Phone | Unavailable | + + + Support + + + + + | Name | Relationship | Address | Phone | + + + + + | Aileen Nelson | ECON | [address] | | | | | [place] | | | | | [address] | | + + + + + Care Team Providers + +------+ + | Care Sanitizer Name | Role | Phone | + [...] + + | 06/19/ | Hospital | [facility] | Kolby Sheffield, | Ischemic | | 2018 - | Encounter | MED CTR SUR[facility] | [address] | cerebrovascular | | | | [address] | [place], [place] | accident (CVA) | | 06/22/ | | [place] [address] | [address] | ([facility]); Stage 3 | | 2018 | | [phone] | | chronic kidney | | | | | | disease ([facility]); IDDM | | | | | | (insulin dependent | | | | | | diabetes mellitus) | | | | | | ([facility]); HIV (human | | | | | | immunodeficiency | | | | | | virus infection) | | | | | | ([facility]); Essential | | | | [...] has been on warfarin. Patient presented to [place]. Patient was out of timeframe fo r [...] narrowed bilaterally. Jana huber was transferred to [facility] for further evaluation. For details please refer to the H&P and daily progress notes and consults. Patient's acute hospital medical problems were briefly addressed as follow: 1. Ischemic cerebrovascular accident (CVA) : His presentation includes subtherapeutic INR x 1.5 months. I have stopped his Warfarin and started on NOAC instead. Carotid Ultrasound with out significant stenosis, which is in contrast to [facility]' ultrasound. He has pacer so [...] None CONSULTATIONS: In patient Rehab, PT, OT, CD REACTOR OPERATOR HEAD IMAGING PERFORMED: Ct Head Wo Contrast Result [...] Itching MEDICATIONS ON DISCHARGE: Current Facility-Administered Medications: wkfimcwl-ikqpyokchfah-ieelIKYvyp (TRIUMEQ) 600-50-300 mg per tablet 1 tablet - Patient Own Med, 1 tablet, Oral, Nightly, Kolby Sheffield MD, 1 tablet at 06/21/182256 allopurinol (ZYLOPRIM) tablet 100 mg, 100 mg, Oral, Daily, Liane Isaac MD, 100 mg at 06/22/18 0804 apixaban (ELIQUIS) tablet 5 mg, 5 mg, Oral, Q12H, Ying Grion MD atorvaSTATin (LIPITOR) tablet 80 mg, 80 [...] + + +---------+ + + | [address] [place] [address] | Take 900 mg by mouth [...] | | | | | units if [id number] | | | | | | | [...] acutely. 3: 54 PM PDTRolph, Ghanshyam Bull [facility] - 06/21/2018 3:44 PM PDTFormatting [...] current medication bottles X Pharmacy list names: [facility] X [employer] insurance reported information X [...] Medication added: Medication: Prior to Admission Sig: Jiszxqda-hmcqcabrcygr-fbmiRJGaqz 600-50-300 mg Take one tablet by mouth [...] Take two tablets by mouth daily Saw [place] 450 mg Take 900 mg by mouth [...] own beer and whiskey) Other: Warfarin info [facility] antocoag clinic Goal: 2.0-3.0 INR 1.8 on 06/08 Dose: 5 mg on Wednesday and Wednesday and 2.5 mg all other days Best possible WEATHER CLERK medication list after pharmacy review: PT REPORTED TAKING NOT TAKING Medication Sig Last Dose Dispense Doc. Provider axpoalvd-dpsphnjmmumv-txleUGPnhq (TRIUMEQ) 600-50-300 mg per tablet Take 1 [...] TABS Take 1 tablet by mouth Daily. Ymii Wilson ProviderMD potassium chloride (KLOR-CON) 10 MEQ ER tablet Take 20 mEq by mouth Daily. Taking Jt Haider MD [place] 450 MG CAPS Take 900 mg by [...] performed and electronically signed by Roxy Escobedo, Alarm Signaler 15:03 Electronically signed by: Ghanshyam Newman RPH [...] none Drug Interactions: Acetaminophen NON-valvular AFIB patients: GOI0PY4-IUFh score (max 9): 6 ?CHF, ?HTN, ?Age > 75 (2), ?DM, ? prior CVA,VTE (2), ?NC,PAD, ?Age 64-74, ?Female Recent Labs Lab 06/21/18 [...] Hct, INR 4. Warfarin education received NO. WEATHER CLERK 5. Pharmacist to follow daily Warfarin Dosing Nomogram Per P&T-approved Electronically signed by: Alberto Isaac PharmD 06/21/2018 11:20 Ying Lopez MD - 06/21/2018 10:57 AM P DT HOSPITALIST PROGRESS NOTE Patient: Sarthak Nelson : 1950: Age: 67 y.o. MedRec: [id number] PCP: Jericho Cao MD Admission date: 06/19/2018 [...] has been on warfarin. Patient presented to [place]. Patient was out of timeframe fo r [...] narrowed bilaterally. Jana huber was transferred to [facility] for further evaluation. MEDICATIONS: defpuckn-yfktexdikzvt-zyahNZRouz 1 tablet Oral Nightly [START ON 06/22/2018] [...] ECGs available Confirmed by DAVID BARAHONA, NILAY ([id number]) on 06/20/2018 6:38:00 AM POC Glucose Collection [...] E' Septal Velocity 4 cm/s MV Deceleration [place] 765.46 cm/s2 MV Deceleration Time 173.25 msec [...] significant stenosis, which is in contrast to [facility]'s ultrasound. He has pacer so [...] Home regimen: TBD after med-rec Managed by: [place] anticoagulation clinic previously adjusting coumadin for chronic Afib per Dr Anmol Isaac Sensitizers: none Drug Interactions: Acetaminophen, allopurinol NON-valvular AFIB patients: ISZ8FR8-MBBp score (max 9): 6 ?CHF, ?HTN, ?Age > 75 (2), ?DM, ? prior CVA,VTE (2), ?NC,PAD, ?Age 64-74, ?Female Recent Labs Lab 06/21/18 [...] am: INR 4. Warfarin education received NO. WEATHER CLERK 5. Pharmacist to follow daily Warfarin Dosing [...] none Drug Interactions: Acetaminophen NON-valvular AFIB patients: WJZ2UD3-PTTm score (max 9): 6 ?CHF, ?HTN, ?Age > 75 (2), ?DM, ? prior CVA,VTE (2), ?NC,PAD, ?Age 64-74, ?Female Recent Labs Lab 06/20/18 [...] Hct, INR 4. Warfarin education received NO. WEATHER CLERK 5. Pharmacist to follow daily Warfarin Dosing Nomogram Per P&T-approved Electronically signed by: Alberto Isaac PharmD 06/20/2018 11:41 Liane Sanders MD - 06/20/2018 9:40 AM PDT [place], [place] HOSPITALIST PROGRESS NOTE Patient: Sarthak Nelson : 1950: Age: 67 y.o. MedRec: [id number] Admission date: 06/19/2018 Hospital day # : [...] discuss with neurologist. On dysphagia diet per CD REACTOR OPERATOR HEAD. Subtherapeutic INR since mid 04/2018 - end 05/2018despite [place] antico clinic adjusting coumad in for chronic afib. Per [place] care everywhere PMHX 1. Cellulitis of abdominal [...] Kcl 20meq Qday Triumeq/Abacavir,dolutegravir,lamivudi clorthalidone 25 Qday---off kdiktryngs66 tid---off Lasix ---off Allergies: Current Medications: Allergies Allergen Reactions Tape [Adhesive & Tape] Current Facility-Administered Medications Medication Dose Route Frequency Provider Last Rate Last Dose oteguhxu-xcmgwididpfm-ictfBRScar (TRIUMEQ) 600-50-300 mg per tablet 1 tablet [...] Consult Dr. 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 -pacer is not amenable with MRI -TTE with bubble study--negative -Telemetry / trop neg / PT/OT/CD REACTOR OPERATOR HEAD Neuro checks -no med rec tech, I reviewed the medications in his [employer] grocery bag and recent med list faxed from [place], documented above. ALL diuretics/antihypertensives have been held. IDDM Cont lantus lispro - lower than home dose HTN Continue imdur HIV -Cont Abacavir,dolutegravir,lamivudi - multiple bottles Are in his [employer] bag Chronic systolic-diastolic heart failure/ VT / chronic A fib / pacer Patient reports holding lasix due to kidney injury, listed on [facility] information -Hold metoprolol for now given permissive HTN F/U [facility] CKD 3 Cr 1.77 -Cr 2.4 in 2017 at [facility] RACHELLE/Morbid obesity bmi 47.9 CPAP Chronic leg edema, VENOUS STASIS ULCER Wound care ordered F/U [place] wound clinic FEN: thickened liquid PPX: Warfarin - SUBTHERAPEUTIC SINCE 05/02/18 (06/09/18 NOTE per [place] care everywhere) Disp: PT/OT/CD REACTOR OPERATOR HEAD ordered Plan discussed with patient. Subjective by date Unhappy w/ thickened liquids, chronic pain Treatment log Imdur, stop asa. Continue lipitor/coumadin Exam On room air then tolerating home CPAP General NAD A and O obese Cardiac S1 S2 irregular Lung CTAB Abdominal soft nt nd + BS obese Neuro dysarthric, drooling left, poor tongue protrusion to left, weaker shoulder shrug left 4/5 left supervisor shrimp pond, 3/5 left elbow flexion, 3/5 left shoulder flexion 5/5 right supervisor shrimp pond/elbow flexion/shoulder flexion 4/5 left lower extremity 4+/5 [...] ECGs available Confirmed by NILAY HERNANDEZ MD ([id number]) on 06/20/2018 6:38:00 AM POC Glucose Collection [...] 12:08 PM Liane Isaac MD 06/20/2018 13:16 [facility] Portions of this chart may have been created with Hack[employer] voice recognition software. Occasi onal wrong-word or [...] + | [facility] | [address] | [place] | [phone] | | [facility] | | [address] | | | - LABORATORY | | [...] ST. | [address] | [place] | [phone] | | [facility] | | [address] | | | - LABORATORY | | [...] [address] | [place] | [phone] | | [facility] | | [address] | | | - LABORATORY | | [...] mL/min/1.73m2 | [facility] | | | ENGLISH | RATE,ESTIMATED | | MEDICAL | | | | mL/min/1.04n6Ynes than | | CENTER - | | [...] + | [facility] | [address] | [place] | [phone] | | [facility] | | [address] | | | - LABORATORY | | [...] + | [facility] | [address] | [place] | [phone] | | [facility] | | [address] | | | - LABORATORY | | [...] [address] | [place] | [phone] | | [facility] | | [address] | | | - LABORATORY | | [...] [address] | [place] | [phone] | | [facility] | | [address] | | | - LABORATORY | | [...] [address] | [place] | [phone] | | [facility] | | [address] | | | - LABORATORY | | [...] [address] | [place] | [phone] | | [facility] | | [address] | | | - LABORATORY | | [...] ST. | [address] | [place] | [phone] | | [facility] | | [address] | | | - LABORATORY | | [...] 1.62 (H) | 0.60 - 1.30 | [facility] | | | | | mg/dL | [facility] | | | | | | MEDICAL | | | | | | CENTER - | | | | | | LABORATORY | | + + + + + + | eGFR if not | 43 (L)Comment: | >=60 | [facility] | | | | GLOMERULAR FILTRATION | mL/min/1.73m2 | [facility] | | | ENGLISH | RATE,ESTIMATED | | MEDICAL | | | | mL/min/1.22j5Zczl than | | CENTER - | | [...] + | [facility] | [address] | [place] | [phone] | | [facility] | | [address] | | | - LABORATORY | | [...] | | | | | | [employer] | | | | | [...] + | [facility] | [address] | [place] | [phone] | | [facility] | | [address] | | | - LABORATORY | | [...] + | [facility] | [address] | [place], [place] | [phone] | | [facility] | | [address] | | | - LABORATORY | | [...] [address] | [place] | [phone] | | 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 | | | GREGG CHAHAL Age 67 year(s) | | | Interpreting WANDA HOFFMANN MD | | | Drum Printer SHUN SALGUERO | | | | | | WANDA Gender Male Nurse | | | Stress Nut Dehydrator Operator | | | Procedure Type of Study [...] 1.59 cm PW Diastolic: 1.77 cm EF Fpnnmrdsf22% EF Calculated: 65% | | | Miscellaneous [...] Diastolic: 1.77 cm | | | EF Juyndscyw73% | | | EF Calculated: 65% | [...] Number 330 | | YUMIKO Patient Number [id number] Date of Study 06/20/2018 Visit | | Number [id number] Referring Physician DWIGHT | | KOLBY Number 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 | [place] | [phone] | | [facility] | | [address] | | | - LABORATORY | | [...] | | | | | | [employer] | | | | | [...] [address] | [place] | [phone] | | [facility] | | [address] | | | - LABORATORY | | [...] [address] | [place] | [phone] | | [facility] | | [address] | | | - LABORATORY | | [...] | | | | NILAY HERNANDEZ MD ([id number]) | | | | | | on [...] | | | | | | [employer] | | | | | [...] ST. | [address] | [place], [place] | [phone] | | [facility] | | [address] | | | - LABORATORY | | [...] + | [facility] | [address] | [place] | [phone] | | [facility] | | [address] | | | - LABORATORY | | [...] [address] | [place] | [phone] | | [facility] | | [address] | | | - LABORATORY | | [...] + | [facility] | [address] | [place] | [phone] | | [facility] | | [address] | | | - LABORATORY | | [...] ST. | [address] | [place], [place] | [phone] | | [facility] | | [address] | | | - LABORATORY | | [...] + | [facility] | [address] | [place] | [phone] | | [facility] | | [address] | | | - LABORATORY | | [...] | | | | | | [facility] | | [...] + | [facility] | [address] | [place] | [phone] | | [facility] | | [address] | | | - LABORATORY | | [...] | mL/min/1.73m2 | [facility] | | | ENGLISH | RATE,ESTIMATED | | MEDICAL | | | | mL/min/1.94u1Ottv than | | CENTER - | | [...] [address] | [place] | [phone] | | [facility] | | [address] | | | - LABORATORY | | [...] [address] | [place] | [phone] | | [facility] | | [address] | | | - LABORATORY | | [...] | | | | | | [employer] | | | | | [...] [address] | [place] | [phone] | | [facility] | | [address] | | | - LABORATORY | | [...] [address] | [place] | [phone] | | [facility] | | [address] | | | - LABORATORY | | [...] | | GLOMERULAR FILTRATION | mL/min/1.73m2 | [facility] | | | ENGLISH | RATE,ESTIMATED | | MEDICAL | | | | mL/min/1.23w7Uhnc than | | CENTER - | | [...] [address] | [place] | [phone] | | [facility] | | [address] | | | - LABORATORY | | [...] | | Neutrophils | | | [facility] | | [...] [address] | [place] | [phone] | | [facility] | | [address] | | | - LABORATORY | | | | + + + + + documented in this encounter Visit Diagnoses + + | Diagnosis | + + | Ischemic cerebrovascular accident (CVA) (HCC) | + + | Stage 3 chronic kidney disease (HCC) | + + | IDDM (insulin dependent diabetes mellitus) ([facility]) Type II or unspecified type diabetes | | mellitus without mention of complication, not stated as uncontrolled | + + | HIV (human immunodeficiency virus infection) ([facility]) Asymptomatic human | | immunodeficiency [...] | 1 tablet | | | | kxfsjotj-amlnjnezvfcx-asmoHLLpye | | 18 10:57 | | | [...] | | | | | | | (sfmdbchx-llwknmjuqjbe-tnppVMEvqk | | | | | | | [...] | | | | | NPO, Daytime 5536-6327 Use NIGHT | | | | | | | DOSE for doses scheduled: | | | | | | | HS, 3AM, Nighttime 0355-8032, | | | | | | + [...]
--- OUTSIDE RECORDS SUMMARY | ~2019-08-11 | XMS | Encounter Summary ---
Demographics + + + | Address | [address] | | | [place] [address] | + + + | Home Phone [...] Author | [facility] | | | and [...] | Aileen Nelson | ECON | [address] | | | | | [place] | | | | | [address] | | + + + + + Care Team Providers + +------+ + | Care Pit Worker Power Shovel Name | Role | Phone | + [...] Ted Navarro | | | | | [place], [place] | [place] | | | | | [address] | [address] | | | | | [phone] | [phone] | | | | | | | [...]
--- OUTSIDE RECORDS SUMMARY | ~2019-08-11 | XMS | Clinical Summary ---
Demographics + + + | Address | [address] | | | [place] [address] | + + + | Home Phone [...] Author | [facility] | | | and [place] [...] Aileen Nelson | ECON | [address] | | | | | [place] | | | | | [address] | | + + + + + Care Team Providers + +------+ + | Care Edger Tailer Name | Role | Phone | + [...] | + + + +---------+------+------+-------+ | [address] | Take 900 mg by mouth [...] | + + + + | INFLUENZA, [id number], | 10/03/2009, 08/16/2009 | | | UNSPECIFIED [...] +---------+--------+ | [employer]MIN | V[employer] | [id number] | 05/21/20 | | | Indemn | | | NS | | 18-Pre | | | ity | | | ADMIN | | sent | | | | | | [place] | | | | | | | | [place] | | | | | | + +--------+ +--------+ +---------+--------+ | MEDICARE | MEDICA | [id number] | 09/20/18 | [phone] | | Medica [...] | 1951 | [phone] | [place] [address] | | | john | | | 5 (Home) | | + +--------+ +--------+ + + Advance Directives + + + + + | Type | Date Recorded | Patient | Explanation | | | | Perforator Operator | | + + + + + | Power of | | | | | Student Accounts Coordinator | | | | + + + [...]
--- OUTSIDE RECORDS SUMMARY | ~2019-08-11 | XMS | Encounter Summary ---
Demographics + + + | Address | [address] | | | [place] [address] | + + + | Home Phone [...] | Author | [facility] | | | and [place] [...] | Aileen Nelson | ECON | [address] | | | | | [place] | | | | | [address] | | + + + + + Care Team Providers + +------+ + | Care Industrial Training Specialist Name | Role | Phone | [...] Ted Navarro | | | | | [place], [place] | [place] | | | | | [address] | [address] | | | | | [phone] | [phone] | | | | | | | [...]
--- OUTSIDE RECORDS SUMMARY | ~2019-08-11 | XMS | Encounter Summary ---
Demographics + + + | Address | [address] [place] [address] | | | [place] [address] | + + + | Home Phone [...] | | | | | [place] [address] | | + + + + + Care Team Providers + +------+ + | Care Chief Engineering Division Name | Role | Phone | + [...] [place] | | | | | | [address] | | | | | | [phone] | | | | | | | [...]
--- OUTSIDE RECORDS SUMMARY | ~2019-08-11 | XMS | Encounter Summary ---
Demographics + + + | Address | [address] [place] [address] | | | [place] [address] | + + + | Home Phone | | + + + | Preferred Language | Unknown | + + + | Marital Status | Single | + + + | Hinduism Affiliation | PEN | + + + [...] | | | | | [place] [address] | | + + + + + Care Team Providers + +------+ + | Care Block Placer Name | Role | Phone | + [...] [address] | | | | | | [place] [address] | | | | | | [phone] | | | | | | | [...] | | | | | [facility] | | | | [...] + + | MANUEL | [id number] | [place] [address] | | | DERMATOPATHOLOGY | [address] | | | + + + + + documented in this encounter Visit Diagnoses Not on filedocumented in this encounter"
--- OUTSIDE RECORDS SUMMARY | ~2019-08-11 | XMS | Encounter Summary ---
Demographics + + + | Address | [address] | | | [place] [address] | + + + | Home Phone | | + + + | Preferred Language | Unknown | + + + | Marital Status | | + + + | Presybeterian Affiliation | 1038 | + + + | Race | Unknown | + + + | Ethnic Group | Unknown | + + + Author + + + | Author | [facility] Nelson | ECON | [address] | | | | | [place] | | | | | [address] | | + + + + + Care Team Providers + +------+ + | Care Fisheries Management Biologist Name | Role | Phone | + [...] Ted Navarro | | | | | [place], [place] | [place] | | | | | [address] | [address] | | | | | [phone] | [phone] | | | | | | | [...]
--- OUTSIDE RECORDS SUMMARY | ~2019-08-11 | XMS | Encounter Summary ---
Demographics + + + | Address | [address] | | | [place] [address] | + + + | Home Phone [...] Author | [facility] | [...] Aileen Nelson | ECON | [address] | | | | | [place] | | | | | [address] | | + + + + + Care Team Providers + +------+ + | Care Hospice/Home Health Aide Name | Role | Phone | [...] [place] | | | | | [place], [place] | [place] [address] | | | | | [address] | [phone] | | | | | [phone] | | | +--------+ + + + [...] and color flow Doppler was perfomed at [facility]. | | | Study: This was [...] TR Vmax: 2.40 m/s | | | [employer]: Authenticated by: MARISOL DUBOSE MD Report Date/Time: | | | -- 26_[id number]:59:3 | | + + + + + [...] flow Doppler was perfomed | | at [facility].Study: This was a technically difficult study [...] (A-L): 56.04 ml/m2LAAs A2C: | | 38.73 pz4KFTZC A-L A2C: 174.50 mlLAESV MOD A2C: 167.16 mlLALs A2C: 7.29 cmLAAs | | A4C: 30.93 if3HQJCK A-L A4C: 123.07 mlLAESV MOD A4C: 117.61 mlLALs A4C: 6.59 | | cmRAAs: 29.75 js6MIUCM A-L: 106.29 mlRAESV MOD: 104.36 mlRALs: 7.07 cmTAPSE: | | 1.63 cmAV Env.Ti: 293.94 msAV maxP.81 mmHgAV meanP.90 mmHgAV Vmax: 0.97 | | m/Merrick Vmean: 0.64 m/Merrick VTI: 18.82 cmAVA Vmax: 3.41 cm2AVA (VTI): 3.65 ri5FKKS | | Vmax: 0.00 cm2/m2AVAI (VTI): 0.00 cm2/m2LVOT Env.Ti: 310.90 msLVOT maxP.86 | | mmHgLVOT meanP.99 mmHgLVSI Dopp: 24.99 ml/m2LVSV Dopp: 68.73 mlLVOT Vmax: | | 0.68 m/sLVOT Vmean: 0.45 m/sLVOT VTI: 14.06 cmMV E Rodney: 1.16 m/sRAP: 10 mmHgRV | | S': 0.07 m/sRVSP: 33.16 mmHgTR maxP.16 mmHgTR Vmax: 2.40 m/s | | [employer]:Authenticated by: Wilbur GROSS Date/Time: -45_[id number]:59:3 | | IMPRESSION: 1. Overall left ventricular [...] |TR Vmax: 2.40 m/s | | | |[employer]: | |Authenticated by: MARISOL DUBOSE MD | |Report Date/Time: -- 74_[id number]:59:3 | | | |IMPRESSION: | |1. Overall [...]
--- OUTSIDE RECORDS SUMMARY | ~2019-08-11 | XMS | Encounter Summary ---
Demographics + + + | Address | [address] | | | [place] [address] | + + + | Home Phone | | + + + | Preferred Language | Unknown | + + + | Marital Status | | + + + | Mormonism Affiliation | 1038 | + + + | Race | Unknown | + + + | Ethnic Group | Unknown | + + + Author + + + | Author | [facility] | | | and [...] | Aileen Nelson | ECON | [address] | | | | | [place] | | | | | [address] | | + + + + + Care Team Providers + +------+ + | Care Votator Machine Operator Name | Role | Phone [...] Ted Navarro | | | | | [place], [place] | [place] | | | | | [address] | [address] | | | | | [phone] | [phone] | | | | | | | [...] | | | | | | [facility]EDBY [facility] | | | | | [facility] | | | | | | [place]. IT HAS NOT BEEN | | | [...]
--- OUTSIDE RECORDS SUMMARY | ~2019-08-11 | XMS | Encounter Summary ---
Demographics + + + | Address | [address] | | | [place] [address] | + + + | Home Phone [...] Author | [facility] | | | and [...] | Aileen Nelson | ECON | [address] | | | | | [place] | | | | | [address] | | + + + + + Care Team Providers + +------+ + | Care Life Insurance Actuary Name | Role | Phone | + +------+ + | Jericho Cao MD | PCP | | + +------+ + Encounter Details +--------+ + + + + | Date | Type | Department | Care Team | Description | +--------+ + + + + | 07/01/ | Hospital | [facility] | Asaf Parra, | | | 2018 | Encounter | MED CTR THERAPY OT | OT [place], | | | | | ACUTE [address] | Em[place] Jones | | | | | [place] | | | | | | [address] | | | | | | [phone] | | | +--------+ + + + [...] + + +---------+ + + | [address] | Take 900 mg by mouth | | 0 | | | | MG CAPS | 2 times daily. | | | | | + + + +---------+ + + documented as of this encounter Plan of Treatment Not on filedocumented as of this encounter Visit Diagnoses Not on filedocumented in this encounter"
--- OUTSIDE RECORDS SUMMARY | ~2019-08-11 | XMS | Encounter Summary ---
Demographics + + + | Address | [address] [place] [address] | | | [place] [address] | + + + | Home Phone [...] + + + + + | Aileen Nelsno | ECON | [address] | | | | | [place] [address] | | + + + + + Care Team Providers + +------+ + | Care Manager Programming Name | Role | Phone | + [...] [place] | | | | | [address] | [phone] | | | | | | [phone] | | | | | | | [...] Edmond Estes MD - 05/10/2015 6:00 PM [facility] PROGRESS NOTE [address] [place] [address] SARTHAK NELSON DATE OF SERVICE: 05/10/2015 TIME [...] here to the ER or to the [facility]. GIANCARLO/Sylvie /[id number] Electronically Signed 05/22/15 1228 MD MANOJ Cantu EDWARD E [id number] : 50 [id number] ADMIT DATE: 05/04/15 DISCHARGE DATE: 05/10/15 Edmond Wood MD - 05/09/2015 9:54 PM [facility] PROGRESS NOTE [address] [place] [address] SARTHAK NELSON HISTORY UPDATE: Mr. Nelson was [...] has been in discussion with at the [facility] in [place]. I do not see any need for [...] infect a sterile fluid collection. MM/SARTHAK Sánchez [id number] : 50 [id number] ADMIT DATE: 05/04/15 DISCHARGE DATE: /[id number] Electronically Signed 05/10/15 0814 MD MANOJ Cantu EDWARD E [id number] : 50 [id number] ADMIT DATE: 05/04/15 DISCHARGE DATE: Bruno Ramirez MD - 05/09/2015 4:01 PM [facility] PROGRESS NOTE [address] [place] [address] SARTHAK NELSON DATE OF SERVICE: 05/09/2015 ASSESSMENT [...] get closer to within normal limits. ILL/MedQ /[id number] Electronically Signed 05/10/15 0715 MD MANOJ Abbott EDWARD E [id number] : 50 [id number] ADMIT DATE: 05/04/15 DISCHARGE DATE: Bruno Ramirez MD - 05/09/2015 3:54 PM [facility] PROG RESS NOTE [address] [place] [address] SARTHAK NELSON DATE OF SERVICE: 05/09/2015 24-HOUR [...] was working because once the SARTHAK NELSON [id number] : 50 [id number] ADMIT DATE: 05/04/15 DISCHARGE DATE: ceftriaxone was [...] recent urinalysis, specifically on 04/18/2015 at the [facility], and this was of 100,000 colony-forming units. [employer] does cover for this. In addition, in speaking with Alaina Malik, the infectious disease lead clinical at the [facility], she stated that this will also cover [...] of a dime with minimal SARTHAK NELSON [id number] : 50 [id number] ADMIT DATE: 05/04/15 DISCHARGE DATE: anguinous seepage. Will monitor. 9. Deep venous thrombosis prophylaxis. On warfarin currently. ILL/MedQ /[id number] Electronically Signed 05/10/15 0715 MD MANOJ Abbott EDWARD E [id number] : 50 [id number] ADMIT DATE: 05/04/15 DISCHARGE DATE: Bruno Ramirez MD - 05/08/2015 6:59 PM [facility] PROG RESS NOTE [address] [place] [address] SARTHAK NELSON DATE OF SERVICE: 05/08/2015 24-HOUR [...] that was isolated on 04/18/2015 at the [facility] from a urine culture growing more than 100,000 colony-forming units. In addition, speaking to Alaina Malik, who is the [facility] lead clinical there, since the patient's infectious disease specialist, Dr. Cait Peres, is on vacation, stated to also cover for gonorrhea that could be circulating in the community. Even though I stated the patient has not had SARTHAK NELSON [id number] : 50 [id number] ADMIT DATE: 05/04/15 DISCHARGE DATE: sexual intercourse [...] 3. Baseline creatinine is 1.9 as per [facility] records. Currently his creatinine is 1.7, we [...] today, the infectious disease clinician at the [facility] (phone number is [phone]). Prior to this, also tried calling Jennifer, another HIV motor vehicle field representative at the [facility], at [phone], and left a message. 3. Also called Mratin Stokes, of infectious diseases at [facility], at [phone]. The conversation initially was started with Martin Stokes, who [facility], specifically, Alaina Malik, who in turn contacted me. ILL/MedQ /[id number] Electronically Signed 05/09/15 0700 MD MANOJ Abbott EDWARD E [id number] : 50 [id number] ADMIT DATE: 05/04/15 DISCHARGE DATE: Bruno Ramirez MD - 05/07/2015 4:09 PM [facility] PROG RESS NOTE [address] [place] [address] SARTHAK NLESON DATE OF SERVICE: 05/07/2015 24-HOUR EVENTS: None. [...] If not, then we will SARTHAK NELSON [id number] : 50 [id number] ADMIT DATE: 05/04/15 DISCHARGE DATE: consider getting [...] with oral antibiotic before considering discharge. ILL/MedQ /[id number] Electronically Signed 05/08/15 1058 MD MANOJ Abbott EDWARD E [id number] : 50 [id number] ADMIT DATE: 05/04/15 DISCHARGE DATE: Bruno Ramirez MD - 05/07/2015 3:21 PM [facility] PROG RESS NOTE [address] [place] [address] NELSONSARTHAK TEMPLE CONTINUATION: Chronic kidney disease stage III. Baseline creatinine is 1.9. This is from review of [facility] records. ILL/MedQ /[id number] Electronically Signed 05/08/15 1058 Bruno Gray MD SARTHAK NELSON [id number] : 50 [id number] ADMIT DATE: 05/04/15 DISCHARGE DATE: Abad Barraza MD - 05/07/2015 1:44 PM [facility] PROGRESS NOTE [address] [place] [address] NELSONCHERYLLUIS Morales CURRENT PROBLEM: Right epididymitis. HISTORY [...] in [facility] or at the [facility] Urology Department-where he is an established patient. We will follow him on a p.r.n. basis during the remainder his hospitalization. GAG/MedQ /[id number] Electronically Signed 05/23/15 0728 MD MANOJ Gomez EDWARD E [id number] : 50 [id number] ADMIT DATE: 05/04/15 DISCHARGE DATE: 05/10/15 Bruno Ramirez MD - 05/06/2015 11:19 AM [facility] PROGRESS NOTE [address] [place] [address] SARTHAK NELSON DATE OF SERVICE: 05/06/2015 24-HOUR [...] morning before considering discharge. ILL/MedQ SARTHAK NELSON [id number] : 50 [id number] ADMIT DATE: 05/04/15 DISCHARGE DATE: /[id number] Electronically Signed 05/07/15 0700 MD MANOJ Abbott EDWARD E [id number] : 50 [id number] ADMIT DATE: 05/04/15 [facility]05/2015 9:07 PM [facility] PROGRESS NOTE [address] [place] [address] SARTHAK NELSON DATE OF SERVICE: 05/05/2015 BRIEF HISTORY: A 64-year-old gentleman with multiple comorbidities who is followed through the [facility]. He has HIV and reports [...] Disposition: Likely home tomorrow. DC/MedQ SARTHAK NELSON [id number] : 50 [id number] ADMIT DATE: 05/04/15 DISCHARGE DATE: /[id number] Electronically Signed 05/06/15 1037 MD MANOJ Vu EDWARD E [id number] : 50 [id number] ADMIT DATE: 05/04/15 DISCHARGE DATE: [facility] Edmond franco MD - 05/05/2015 1:12 PM [facility] PROGRESS NOTE [address] [place] [address] SARTHAK NELSON DATE OF SERVICE: 05/05/2015 EVENTS [...] Urology can be contacted to re-consult. MM/MedLoulou /[id number] Electronically Signed 05/10/15 0813 MD MANOJ Cantu EDWARD E [id number] : 50 [id number] ADMIT DATE: 05/04/15 DISCHARGE DATE: [facility] Edmond gray MD - 05/05/2015 10:45 AM [facility] CONSULTATI ON [address] [place] [address] SARTHAK NELSON DATE OF CONSULTATION: 05/04/2015 REQUESTING [...] scrotum is enlarged bilaterally, and SARTHAK NELSON [id number] : 50 [id number] ADMIT DATE: 05/04/15 on the left side [...] of this patient. Urology will follow. GIANCARLO/MedLoulou /[id number] Electronically Signed 05/10/15 0813 MD MANOJ CantuSARTHAK [id number] : 50 [id number] ADMIT DATE: 05/04/15 Ghanshyam Kelly MD - 05/04/2015 6:48 PM [facility] PROGRESS NOTE [address] [place] [address] NELSON,SARTHAK Morales BRIEF HISTORY: A 64-year-old gentleman [...] 8. Disposition: Continue inpatient care. SARTHAK NELSON [id number] : 50 [id number] ADMIT DATE: 05/04/15 DISCHARGE DATE: Damián /[id number] Electronically Signed 05/06/15 1036 MD MANOJ Vu EDWARD E [id number] : 50 [id number] ADMIT DATE: 05/04/15 [facility] Plan of Treatment Not on filedocumented as of this encounter Visit Diagnoses Not on filedocumented in this encounter"
--- OUTSIDE RECORDS SUMMARY | ~2019-08-11 | XMS | Encounter Summary ---
Demographics + + + | Address | [address] [place] [address] | | | [place] [address] | + + + | Home Phone [...] Author + + + | Author | [facility] | + + + | Organization | [facility] | + + + | Address | Unknown | + + + | Phone | Unavailable | + + + Support + + + + + | Name | Relationship | Address | Phone | + + + + + | Aileen Nelson | ECON | [address] | | | | | [place] [address] | | + + + + + Care Team Providers + +------+ + | Care Service Advisor Name | Role | Phone | + +------+ + PCP | Unavailable | + +------+ + Encounter Details +--------+ + + + + | Date | Type | Department | Care Team | Description | +--------+ + + + + | 10/13/ | Results | Registration [address] | [facility] | | | 2009 | Only | NAOMI Adler | [phone] | | | | | Rd Mailcode: [id number] | | | | | | [place], [place] | | | | | | [address] | | | | | | [phone] | | | +--------+ + + + [...] + + | Performing | Address | City[facility]State[facility] | Phone Number | | Organization | | | | + +---------+ + + | [facility] DEPARTMENT OF | | | | | RADIOLOGY | | | | + +---------+ + + documented in this encounter Visit Diagnoses Not on filedocumented in this encounter"
--- OUTSIDE RECORDS SUMMARY | ~2019-08-11 | XMS | Encounter Summary ---
Demographics + + + | Address | [address] [place] [address] | | | [place] [address] | + + + | Home Phone [...] | | | | | [place] [address] | | + + + + + Care Team Providers + +------+ + | Care Online Tutor Name | Role | Phone | + [...] By Patient | | | | [place], [place] | [place] [address] | | | | | [address] | [phone] | | | | | [phone] | | | +--------+ + + + [...]
--- OUTSIDE RECORDS SUMMARY | ~2019-08-11 | XMS | Encounter Summary ---
Demographics + + + | Address | [address] [place] [address] | | | [place] [address] | + + + | Home Phone [...] Author + + + | Author | [facility] | + + + | Organization | [facility] | + + + | Address | Unknown | + + + | Phone | Unavailable | + + + Support + + + + + | Name | Relationship | Address | Phone | + + + + + | Aileen Nelson | ECON | [address] | | | | | [place] [address] | | + + + + + Care Team Providers + +------+ + | Care Case Reviewer Name | Role | Phone | + [...] (Primary Dx); | | | | [place], [place] | [place] [address] | Hydrocele, | | | | [address] | [phone] | unspecified | | | | [phone] | | hydrocele type | +--------+---------+ + [...] and hydrocele. HPI: Ed was seen at [facility] and kept as an inpatient [...] Coronary atherosclerosis of unspecified type of vessel, iqugmiut or graft Acute, but ill-defined, cerebrovascular disease Unspecified essential hypertension Arrhythmia a-fib, v-fib Chronic kidney disease (CKD), stage III (moderate) Paroxysmal SVT (supraventricular tachycardia) Congestive heart failure, unspecified Atrial fibrillation Obesity RACHELLE (obstructive sleep apnea) High cholesterol Back pain ED (erectile dysfunction) Epididymitis 2009 Cellulitis Venous insufficiency (chronic) (peripheral) Past Surgical History Procedure Laterality Date Aicd implantation Meds: Current outpatient prescriptions: ABACAVIR/DOLUTEGRAVIR/LAMIVUDI (EERBJIKA-TOHXDFYVWCWD-SHX IVUD ORAL), Take 600 mg by mouth [...] once daily. , Disp: , Rfl: omega 8-mzi-iqh-fish oil (FISH OIL) 100-160-1,000 mg oral capsule, [...] finish his antibiotics. Edmond Estes M.D./winnie A Vocational Trainer was offered to the patient. The offer [...]
[~2019-08-11 14:59] MED LIST changes: +ALDACTONE50 MG PO; +ANTI FUNGAL TOP; -ANTIFUNGAL CREA14 GM TOP; +BUMETANIDE1 MG PO; +CIPRO500 MG PO; +COLCRYS0.6 MG PO; +DOXYCYCLINE MO100 M1 PO; +ELIQUIS5 MG PO; +GLUCOTROL5 MG PO; +HEMORRHOIDAL P1 EAC1 TOP; +HYDROXYZINE HCL25 MG PO; +KLOR-CON M1010 MEQ PO; +LAMISIL AT12 G1 TOP; +LIPITOR80 MG PO; +LUBRICANT 0.5-015 ML OU; +NEURONTIN300 MG PO; -NEURONTIN600 MG PO; +NOVOLOG100 UNIT/2 SUB-Q; +PROSCAR5 MG PO; +ZOLOFT100 MG PO
--- OUTSIDE RECORDS SUMMARY | 2019-08-11 15:04 | XMS ---
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 No recent Security Events currently on file CRITERIA MET - Group Notification - [facility] [place] CARE PROVIDERS Ricardo Mcneil DO [facility] Current PHONE: Unknown IHSAN BURTON [facility] 05/17/2015-Current PHONE: Unknown COSME DYE [facility] 06/20/2018-Current PHONE: [phone] DR COSME DYE [facility] Current PHONE: [phone] Ricardo Mcneil Current PHONE: Unknown Anuel Brown - Case or Pipeline Dispatcher [facility] PHONE: [phone] [facility] 05/17/2015-[facility]: [phone] IHSAN BURTON 05/17/2015-Current PHONE: [phone] ESPERANZA ORELLANA [facility] PHONE: Unknown Wyatt has no Care Guidelines for this patient. Care History Medical/Surgical 05/01/2019 [facility] - PATIENT IS A - RECEIVES MEDICAL SERVICES FROM MA IN [place], [place]- PCP COSME ROMANO E.D. VISIT COUNT (12 MO.) 3 [facility]. TOTAL 3 NOTE: Visits indicate total known visits. 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 - Cellulitis of left lower limb - 1 Type 2 diabetes mellitus with other skin complications - Urinary tract infection, site not specified - Cellulitis of left lower limb - Hyperuricemia w/o signs of inflam arthrit and tophaceous dis - Unspecified mood [affective] disorder - 1 Hyp hrt \T\ chr kdny dis w hrt fail and stg 1-4/unsp chr kdny - Allergy status to sulfonamides status - 1 Chronic kidney disease, stage 3 (moderate) - Allergy status to sulfonamides status - Chronic diastolic (congestive) heart failure - Chronic diastolic (congestive) heart failure - 1 Type 2 diabetes mellitus with diabetic polyneuropathy - 1 Type 2 diabetes mellitus with diabetic polyneuropathy - Allergy status to penicillin - 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 - Blister (nonthermal), left foot, initial encounter - Non-prs chronic ulcer oth prt l foot limited to brkdwn skin - Other obesity - Prsnl hx of TIA (TIA), and cereb infrc w/o resid deficits - Blister (nonthermal), left foot, initial encounter - Asymptomatic human immunodeficiency virus infection status - Non-prs chr ulcer of left heel and midft lmt to brkdwn skin - 1 Chronic kidney disease, stage 3 (moderate) - Local infection of the skin and subcutaneous tissue, unsp - Chronic atrial fibrillation - Hyperuricemia w/o signs of inflam arthrit and tophaceous dis - 1 Type 2 diabetes w diabetic peripheral angiopath w/o gangren - Non-prs chr ulcer of left heel and midft lmt to brkdwn skin - Other half-way (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 - 1 Hyp hrt \T\ chr kdny dis w hrt fail and stg 1-4/unsp chr kdny - assisted (current) use of insulin - Non-prs chronic ulcer oth prt l foot limited to brkdwn skin - 1 Type 2 diabetes mellitus with other skin complications - 1 Type 2 diabetes mellitus with hyperglycemia - Body mass index (BMI) 40.0-44.9, adult - Body mass index (BMI) 40.0-44.9, adult - 1 Type 2 diabetes mellitus w diabetic chronic kidney disease - Prsnl hx of TIA (TIA), and cereb infrc w/o resid deficits - 1 Type 2 diabetes w diabetic peripheral angiopath w/o gangren - 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
--- NOTE | 2019-08-11 18:27 | NUR ---
1813: PT ARRIVED TO MED-SURG. REPORT WAS RECEIVED FROM JULIAN MATHIS VIA THE PHONE PRIOR TO THE PT ARRIVING. CPOX PLACED, TELE #2 PLACED AND IS READING A-FIB WHICH THE PT STATES IS BASELINE FOR HIM. PT ORIENTED TO THE ROOM. PT STATES HE HAS SOME NECK PAIN FROM HIS FALL TODAY BUT DENIES OTHER PAIN. PT NOTED TO HAVE LEFT SIDED FACIAL DROOP AND SOME SLURRED SPEECH. PT A/O TO PERSON, PLACE AND TIME. PT GIVEN A CALL DAMON.
--- NOTE | 2019-08-11 18:49 | NUR ---
PT UNABLE TO SWALLOW WATER WHILE SITTING UP HIGH IN THE BED WITHOUT COUGHING.
--- NOTE | 2019-08-11 20:20 | NUR ---
PT SITTING IN BED AT THIS TIME, RESP EVEN AND NON LABORED. PT DENIES PAIN AT THIS TIME. NOTABLE SLURRED SPEECH. CLOSE TO RN STATION. PT HAS CALL LIGHT WITHIN REACH.
--- NOTE | 2019-08-11 20:22 | NUR ---
CALLED AND SPOKE WITH DR. GLEASON REGARDING PT'S NPO STATUS. PER DR. GLEASON DUE TO PT'S ASPIRATION RISK WE WILL HOLD PO MEDICATIONS WELL INSULIN FOR THIS EVENING UNTIL PT IS ABLE TO SEE SPEECH THERAPY IN THE MORNING. PREVIOUS SHIFT REPORTED PT FAILED BEDSIDE SWALLOW EVAL. PT REQUESTING FOOD AND WATER AT THIS TIME. EDUCATION PROVIDED TO PT REGARDING ASPIRATION RISK. PT UPSET BY THIS, STATES "NOBODY IS TAKING MY FOOD AWAY FROM ME". ORAL SWABS LEFT WITH PT AT BEDSIDE. CALL LIGHT WITHIN REACH. NO NEEDS AT THIS TIME.
--- NOTE | 2019-08-11 20:51 | NUR ---
POKER IN ROUNDING NOTE. PT RESTING IN BED WITH EYES CLOSED. DOES NOT WAKE WHEN COMMUNITY HEALTH COUNSELOR ENTERS THE ROOM. CALL LIGHT IN REACH. WHITE BOARD UPDATED.
--- NOTE | 2019-08-12 01:08 | NUR ---
IN TO CHECK ON PT. PT AWAKE, REQUESTING FOOD. REPORTED TO PT THAT I CANNOT PROVIDE FOOD DUE TO NPO STATUS. PT STATES TO THIS RN, "IF I DON'T GET FOOD I'M GONNA BE A BAD PATIENT". EDUCATION PROVIDED TO PT REGARDING SAFETY AND PLAN OF CARE. PT REMAINS IN BED WITH CALL LIGHT WITHIN REACH.
--- NOTE | 2019-08-12 02:34 | NUR ---
IN TO CHECK ON PT. IV REMOVED FROM ARM. CATHETER TIP INTACT. NEW IV STARTED ON RIGHT ARM-SEE IV INTERVENTION FOR DETAILS. INSTRUCTED PT TO LEAVE LINES ALONE. CALL LIGHT WITHIN REACH OF PT.
--- NOTE | 2019-08-12 03:06 | NUR ---
PT RESTING IN BED, EYES CLOSED. NO NOTABLE DISTRESS. IV INTACT, FLUID RUNNING AT THIS TIME. PT CLOSE TO RN STATION. PERSONAL SUPPLIES AND CALL LIGHT WITHIN REACH.
--- NOTE | 2019-08-12 06:02 | NUR ---
BEDSIDE BLADDER SCAN COMPLETED; DISPLAYED 810ML ON MONITOR. PT SAT UP TO ATTEMPT TO URINATE, UNABLE TO AT THIS TIME. PT STATES HE HAS NO SENSATION TO VOID. TOLD HIM I WILL CALL PROVIDER AND LIKELY SHE WILL ADVISE A HAGAN CATHETER PLACEMENT. PT STATES HE WILL REFUSE A HAGAN IF ONE IS ORDERED. WILL CALL NOTIFY PROVIDER. CALL LIGHT WITHIN REACH.
--- NOTE | 2019-08-12 06:23 | NUR ---
CALLED DR. GLEASON REGARDING BLADDER SCAN OF 810ML. TOLD DR. GLEASON PT STATED TO THIS RN THAT HE "WILL NOT HAVE A CATHETER PUT IN". NO NEW ORDERS OBTAINED AT THIS TIME. WILL CONTINUE TO MONITOR.
--- NOTE | 2019-08-12 07:25 | EKG ---
[facility] [address] [place] [address] Signed Atrial fibrillation with slow ventricular response Rightward axis Abnormal QRS-T angle, consider primary T wave abnormality Abnormal ECG When compared with ECG of 19-JUN-2018 15:02, Vent. rate has decreased BY 29 BPM Confirmed by FINN GLEASON MD ([id number]) on 08/12/2019 7:25:38 AM Electronically Signed By: FINN GLEASON MD 08/12/19 0725 PATIENT NAME: ALEN ARANDA YUMIKO Electrocardiogram DATE OF : 50 PHYSICIAN: FINN GLEASON MD REPORT #: [id number] REPORT IS CONFIDENTIAL AND NOT TO BE RELEASED WITHOUT AUTHORIZATION
--- NOTE | 2019-08-12 07:34 | NUR ---
0655: REPORT RECIEVED FROM ANNDA MATHIS. PT SLEEPING AT THIS TIME, CALL DAMON WITHIN REACH. SAT IS 97% ON ROOM AIR AND HIS HR IS 70 WITH A-FIB PER TELE # 2.
--- NOTE | 2019-08-12 08:18 | NUR ---
PT MOVED TO THE CHAIR WITH A 2 PERSON ASSIST WHERE HE IS SITTING AT THIS TIME. PT REQUESTED TRIPLE ANTIBIOTIC OINTMENT FOR HIS RIGHT KNEE WHICH HE WAS GIVEN AT THIS TIME. PT'S CALL DAMON AND PERSONAL ITEMS WITHIN REACH.
--- NOTE | 2019-08-12 09:41 | NUR ---
PATIENT UNABLE TO SWALLOW THIN LIQUID, IMMEDIATE COUGH. NECTAR THICK WATER OFFERED AND PATIENT DID WELL, NO COUGH, DRANK 1/2 GLASS OF WATER WITH NO COUGH. APPLESAUCE GIVEN, NO COUGH, NO POCKETING. DISCUSSED WITH DR. GLEASON. PLAN TO ADVANCE TO PUREED DIET WITH NECTAR THICK LIQUIDS.
--- NOTE | 2019-08-12 10:24 | NUR ---
Pt now taking his pills crushed in apple sauce and is eating his necter thick breakfast. Pt appears to be having no trouble swallowing without chocking at this time.
--- NOTE | 2019-08-12 11:16 | NUR ---
Pt's urine output has been poor today. Dr Hill notified of the urine output.
--- NOTE | 2019-08-12 11:23 | NUR ---
Pt given a new bed with a trapeze bar as requested by physical therapy. Ed states he has a trapeze bar on his bed at home as well. Pt back to his bed at this time as he requested. Pt removed his cpox monitor and it remains off at this time.
--- NOTE | 2019-08-12 12:44 | NUR ---
PT SITTING UP AT THE BEDSIDE EATING HIS LUNCH. HE APPEARS IN NO DISTRESS AT THIS TIME. HIS SPEECH IS ONLY SLIGHTLY SLURRERED WHICH IS IN IMPROVMENT OVER YESTERDAY. LEFT SIDED FACIAL DROOP REMIANS. NO OTHER CHANGES IN CONDITION NOTED AT THIS TIME.
--- NOTE | 2019-08-12 13:26 | NUR ---
Pt sitting up straight in her chair and was feed lunch of which she ate about 20%. The food was thick and pureed texture and she was fed very slowly and without difficulty. She now states she is no longer hungry when asked as she lost intrest in eating after eating 20% of her meal.
--- NOTE | 2019-08-12 14:40 | NUR ---
Pt sleeping at this time.
--- NOTE | 2019-08-12 14:43 | NUR ---
Pt awoke to voice and he denies the need to void. He states that he only voids once a day baseline. He refused to be bladder scanned and states he would not allow a marie to be placed if it was needed. Dr Hill notified.
--- NOTE | 2019-08-12 14:58 | NUR ---
Sarthak just called and states he voided. He had 850 ml in the urinal and overfilled it which appears that he voided about 2 liters by the amount that was on the floor. The pt was cleaned up, fresh socks and gown placed and the floor was cleaned and mopped and the pt was given a larger container for when he voids next time.
--- NOTE | 2019-08-12 16:01 | NUR ---
TELE DC'D ORDERED. PT SITTING IN HIS CHAIR WATCH TV ON HIS PHONE AND APPEARS IN NO DISTRESS.
--- NOTE | 2019-08-12 18:17 | NUR ---
Pt sitting in his chair watching tv on his phone. He states that he is doing fine at this time.
--- NOTE | 2019-08-12 18:18 | NUR ---
Pt's facial droop and weakness unchanged.
--- NOTE | 2019-08-12 19:10 | NUR ---
RECEIVED REPORT FROM DELFINA WILKS. pt SITTING IN CHAIR. NO REQUESTS AT THIS TIME. WHITEBOARD UPDATED. CALL LIGHT WITHIN REACH.
--- NOTE | 2019-08-12 20:10 | NUR ---
POOL TECHNICIAN ROUNDING NOTE. PT REQUESTS TO GO TO BED. PT UP AND TO BED WITH 2 PA, FWW, AND GAIT BELT. PT TOLERATES WELL. PT DENIES FURTHER QUESTIONS, CONCERNS, OR NEEDS AT THIS TIME. CALL LIGHT IN REACH. ROOM IN VIEW OF RN STATION.
--- NOTE | 2019-08-12 20:57 | NUR ---
ASSESSMENT DONE. pt RESTING IN BED, REPORTED "TOLERABLE" 6/10 PAIN IN HIS SHOULDER. pt NOTIFIED THIS RN OF HOME DOSE OF LANTUS, INFORMED, ENTERED NEW ORDERS. MEDICATIONS GIVEN (SEE MAR). pt INTENTLY WATCHING TV. NO REQUESTS AT THIS TIME. CALL LIGHT WITHIN REACH.
--- NOTE | 2019-08-12 23:13 | NUR ---
pt UP TO THE TOILET AND BACK TO BED. 2PA FWW. PROVIDED WITH PUDDING. NO FURTHER REQUESTS AT THIS TIME. CALL LIGHT WITHIN REACH.
--- NOTE | 2019-08-13 01:15 | NUR ---
ROUNDED ON pt RESTING WITH EYES CLOSED, RESPIRATIONS REGULAR AND UNLABORED. CALL LIGHT WITHIN REACH.
--- NOTE | 2019-08-13 02:20 | NUR ---
pt CALLED FOR A WARM BLANKET. ASSESSMENT DONE. PROVIDED WITH WARM BLANKET. NO FURTHER REQUESTS AT THIS TIME. CALL LIGHT WITHIN REACH.
--- NOTE | 2019-08-13 04:04 | NUR ---
ROUNDED ON pt. RESTING WITH EYES CLOSED, RESPIRATIONS REGULAR AND UNLABORED. CALL LIGHT WITHIN REACH.
--- NOTE | 2019-08-13 05:51 | NUR ---
pt RESTED MOST OF SHIFT. VOIDED, 2PA FWW. LANTUS INCREASED. TOLERATING NECTAR THICK, PUREED DIET. ACCU CHECKS. IVF INFUSING. USES CALL LIGHT APPROPRIATLEY.
--- NOTE | 2019-08-13 05:55 | NUR ---
pt RESTED MOST OF SHIFT. VOIDED, 2PA FWW. LANTUS INCREASED. TOLERATING NECTAR THICK, PUREED DIET. ACCU CHECKS. IVF INFUSING. USES CALL LIGHT APPROPRIATLEY.
--- NOTE | 2019-08-13 07:30 | NUR ---
0705: REPORT RECIEVED FROM TERE MATHIS. PT SITTING UP AT THE EDGE OF THE BEDSIDE AND IS WATCHING TV AT THIS TIME. CALL DAMON WITHIN REACH AND THE GRANITE INSTALLER IS IN THE ROOM WITH THE PT.
--- NOTE | 2019-08-13 08:44 | NUR ---
PT STATES HE HAS RIGHT KNEE PAIN ALL OF THE TIME AND RATES IT AT A 6/10 WHICH HE STATES IS ACCEPTABLE. PT CONTINUES TO HAVE SOME SLIGHT SLURRED SPEECH AND LEFT SIDE FACIAL DROOP WHICH APPEARS UNCHANGED FROM YESTERDAY. PT STATES HIS STRENGTH IS BASELINE FOR HIM WITH LEFT SIDED WEAKNESS FOR HIS OLD CVA. PT WATCHING TV AND ONLY GIVES BREIF ANSWERS AND APPEARS UNINTRESTED IN TALKING AT THIS TIME. CALL DAMON WITHIN REACH.
--- NOTE | 2019-08-13 11:27 | NUR ---
Pt ambulated in the halls with physical therapy and this RN. Ed was stong on his feet was steady with the use of his walker. Pt now to his chair and appears in no distress.
--- NOTE | 2019-08-13 11:47 | NUR ---
NO NOTED CHANGES IN NEURO STATUS AT THIS TIME. PT APPEARS IN NO DISTRESS AND CONTINUES WATCHING TV ON HIS PHONE. CALL DAMON WITHIN REACH.
--- NOTE | 2019-08-13 13:03 | NUR ---
NERUO ASSESSMENT UNCHANGED WITH WEAKNESS THROUGHOUT WITH IT WORSE ON THE LEFT DUE TO AN OLD CVA. PT CONTINUES TO HAVE LEFT SIDED FACIAL DROOP WITH NO LONGER HAVING SLURRED SPEECH. PT RESTING IN HIS CHAIR AND ONLY COMPLAINS ABOUT HIS RIGHT KNEE PAIN AT A 6 WHICH IS ACCEPTABLE AND UNCHANGED, DUE TO HIS FALL.
--- NOTE | 2019-08-13 14:52 | NUR ---
PT DENIES ANY NEW PROBLEMS AT THIS TIME. PT CONTINUES WATCHING TV. CALL DAMON WITHIN REACH.
--- NOTE | 2019-08-13 15:19 | NUR ---
Pt ambulated to the br with 2pa and his walker. Pt was steady on his feet and moved well once he was on his feet, he had some difficulty standing up from his chair. Pt had a large formed BM and is now showering with the help from the TEACHER OF GIFTED STUDENTS.
--- NOTE | 2019-08-13 15:50 | NUR ---
EFE HELPED ME GET HIM INTO THE SHOWER. HE WASHED SOME OF HIS BODY. THAN AFTER WE WERE DONE WITH HIS SHOWER AND DRIED HIM OFF AND PUT A NEW SOCKS AND GOWN ON. EFE HELPED ME WALK HIM BACK TO HIS BED. NOW HE IS WATCHING HIS SHOWS ON HIS PHONE AND RESTING.
--- NOTE | 2019-08-13 19:20 | NUR ---
BEDSIDE REPORT RECEIVED FROM DELFINA WILKS. pt APPEARS TO BE SLEEPING. BREATHING UNLABORED. LIGHTS OFF IN ROOM. CALL LIGHT IN REACH.
--- NOTE | 2019-08-13 20:23 | NUR ---
CONTACT CLERK ROUNDING NOTE. PT GOWN CHANGED DUE TO BEING SOILED. PT DENIES QUESTIONS OR CONCERNS AT THIS TIME. PT'S PRIMARY RN IN ROOM FOR MEDICATION ADMINISTRATION. WHITE BOARD UPDATED. CALL LIGHT IN REACH. ROOM IN VIEW OF RN STATION.
--- NOTE | 2019-08-13 20:43 | NUR ---
VS and I&Os complete. Pt needed urinal emptied. Nothing further needed at this time.
--- NOTE | 2019-08-13 20:51 | NUR ---
pt ASSESSMENT COMPLETE. pt SITTING UP AT SIDE OF BED. ALERT AND ORIENTED X 4. NUMBNESS BILATERALLY ALL EXTREMITIES, CHRONIC. SLIGHT FACIAL DROOP LEFT SIDE. CALL LIGHT IN REACH. NECTAR THICK WATER PROVIDED. IV FLUSHED WNL, INFUSING ORDERED. LIGHTS OFF IN ROOM.
--- NOTE | 2019-08-13 23:31 | NUR ---
pt SITTING AT SIDE OF BED WATCHING TV ON PHONE. NO REQUESTS AT THIS TIME. CALL LIGHT IN REACH.
--- NOTE | 2019-08-14 01:01 | NUR ---
NEW BAG IVF INFUSING WNL ORDERED. pt ASSISTED TO PLUG CELL PHONE INTO INSEMINATION WORKER. CALL LIGHT IN REACH. NO ADDITIONAL REQUESTS.
--- NOTE | 2019-08-14 02:33 | NUR ---
CALL LIGHT ANSWERED DISTAL OCCLUSION. IVF INFUSING WNL ORDERED. ASSESSMENT COMPLETE. pt RATES PAIN 7/10 IN LEFT SIDE, STATES "BEEN HURTING SINCE I FELL A COUPLE DAYS AGO". WARM PACK PROVIDED. pt DENIES PRN PAIN MEDICATIONS. PUDDING PROVIDED. CALL LIGHT IN REACH.
--- NOTE | 2019-08-14 05:45 | NUR ---
FELICITY ROBBINS PROVIDING pt WITH WARM BLANKET. VSS. pt REQUESTING TO SLEEP. IVF INFUSING WNL ORDERED. CALL LIGHT IN REACH.
--- NOTE | 2019-08-14 06:15 | NUR ---
pt USING CALL LIGHT APPROPRIATELY. IVF INFUSING WNL ORDERED. VOIDING QS IN JACOBS TUB AT BED SIDE. THICKENED LIQUIDS, PUREED TEXTURE DIET. pt COMPLIANT, APPROPRIATE THIS SHIFT. VSS. NEURO CHECKS UNCHANGED. LEFT SIDE FACIAL DROOP, GENERALIZED WEAKNESS NOTED.
--- NOTE | 2019-08-14 07:55 | NUR ---
PT RESTING EYES CLOSED BREATHING EVEN AND UNLABORED. REPORT RECEIVED.
--- NOTE | 2019-08-14 10:00 | NUR ---
PT UP TO WORK WITH P/T
[2019-08-14] MEDS ORDERED: GLIPIZIDE5 MG PO (10:46)
[2019-08-14] MEDS ORDERED: LANTUS100 UNITS/ SUB-Q (10:49)
[2019-08-14] MEDS ORDERED: FISH OIL 1,0001 EAC2 PO (10:51)
[2019-08-14] MEDS ORDERED: TOPROL XL25 MG PO (10:51)
[2019-08-14] MEDS ORDERED: MULTI VITAMIN1 EACH PO (10:52)
[2019-08-14] MEDS ORDERED: SAW PALMETTO450 MG PO (10:52)
--- NOTE | 2019-08-14 10:52 | NUR ---
MED REC COMPLETE
--- NOTE | 2019-08-14 11:19 | NUR ---
PT UP TO CHAIR
--- NOTE | 2019-08-14 12:10 | NUR ---
PUREED LUNCH SERVED S.T ARRIVES FOR EVAL
[2019-08-14] MEDS ORDERED: ASPIRIN81 MG PO (12:56)
== END 2019-08-14 14:10 | disposition home or self-care (01) ==
LOC: ED 14:59 → MS 15:02
PROVIDERS: ADMIT Internal Medicine
DX: I63.9 Cerebral infarction, unspecified (principal); R29.810 Facial weakness; R47.81 Slurred speech; I11.0 Hypertensive heart disease with heart failure; R29.716 NIHSS score 16; I50.9 Heart failure, unspecified; I48.20 Chronic atrial fibrillation, unspecified; E11.9 Type 2 diabetes mellitus without complications; Z95.0 Presence of cardiac pacemaker; Z87.891 Personal history of nicotine dependence; Z88.0 Allergy status to penicillin; Z88.2 Allergy status to sulfonamides; Z21 Asymptomatic human immunodeficiency virus [HIV] infection status; Z79.01 Long term (current) use of anticoagulants; Z86.73 Personal history of transient ischemic attack (TIA), and cerebral infarction without residual deficits; Z91.14 Patient's other noncompliance with medication regimen; Z79.4 Long term (current) use of insulin; Z79.899 Other long term (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
CPT/HCPCS: 36415; 51798; 70450; 71045; 80048; 80053; 84484; 85025; 85610; 85730; 92610; 93005; 93010; 97110; 97116; 97163; 97165; 99285-25; G0378; J1815; J7030

== ENCOUNTER 2019-10-02 12:01 | Emergency (ER) | payer OTHER ==
[~2019-10-02] VITALS: Ht 188 cm; Wt 158.8 kg
--- OUTSIDE RECORDS SUMMARY | ~2019-10-02 | XMS | Encounter Summary ---
Demographics + + + | Address | [address] [place] [address] | | | [place] [address] | + + + | Home Phone | | + + + | Preferred Language | Unknown | + + + | Marital Status | Single | + + + | Moravian Affiliation | PEN | + + + | Race | White | + + + | Ethnic Group | Not or | + + + Author + + + | Author | [facility] | + + + | Organization | [facility] | + + + | Address | Unknown | + + + | Phone | Unavailable | + + + Support + + + + + | Name | Relationship | Address | Phone | + + + + + | Aileen Nelson | ECON | [address] | | | | | [place] [address] | | + + + + + Care Team Providers + +------+ + | Care Metallurgical Engineering Technician Name | Role | Phone | + +------+ + | Romain Harrington MD | PCP | | + +------+ + Reason for Visit + + + | Reason | Comments | + + + | Epididymitis | | + + + Encounter Details +--------+---------+ + + + | Date | Type | Department | Care Team | Description | +--------+---------+ + + + | 05/17/ | Office | [facility] | Edmond Estes, | Epididymitis | | 2015 | Visit | [address] | (Primary Dx); | | | | [place], [place] | [place] [address] | Hydrocele, | | | | [address] | [phone] | unspecified | | | | [phone] | | hydrocele type | +--------+---------+ + + + Social History + +-------+ +--------+ + | Tobacco Use | Types | Packs/Day | Years | Date | | | | | Used | | + +-------+ +--------+ + | Former Smoker | | | | 05/17/1965 - | | | | | | 05/17/1984 | + +-------+ +--------+ + + +------+---+---+ | Smokeless Tobacco: | Chew | | | | Former User | | | | + +------+---+---+ + + +---------+ + | Alcohol Use | Drinks/Week | oz/Week | Comments | + + +---------+ + | Yes | 0 Standard drinks | 0.0 | | | | or equivalent | | | + + +---------+ + + + + | Sex Assigned [...] this encounter Last Filed Vital Signs + +---------+ + + | Vital Sign | Reading | Time Taken | Comments | + +---------+ + + | Blood Pressure | 138/86 | 05/17/2015 8:52 AM | | | | | PDT | | + +---------+ + + | Pulse | 68 | 05/17/2015 8:52 AM | | | | | PDT | | + +---------+ + + | Temperature | - | - | | + +---------+ + + | Respiratory Rate | 20 | 05/17/2015 8:52 AM | | | | | PDT | | + +---------+ + + | Oxygen Saturation | - | - | | + +---------+ + + | Inhaled Oxygen | - | - | | | Concentration | | | | + +---------+ + + | Weight | - | - | | + +---------+ + + | Height | - | - | | + +---------+ + + | Body Mass Index | - | - | | + +---------+ + + documented in this encounter Patient Instructions Patient Instructions Edmond Estes MD - 05/17/2015 10:35 AM PDTCont your antibiotics Follow up with your ID physician at the [facility] in 4 weeks Try and elevated you scrotum as often/much as possible documented in this encounter Progress Notes Edmond Estes MD - 05/17/2015 9:11 AM PDTFormatting of this note might be different fr om the original. ID: Ed is a 64-year-old male. His primary care provider is Romain Harrington MD. CC: Epididymitis and hydrocele. HPI: Ed was seen at [facility] and kept as an inpatient for a few days with cellulitis. He was eventu ally able to be transitioned over from IV to p.o. medications and was discharged home. He w as intended to have close followup with his infectious disease provider at the [facility]. Mr. Nelson did not follow up at the [facility]. He states the pain is improving, the redness is improved. He denies any dysuria or blood in the urine. He has had no fevers or chills. Past Medical History Diagnosis Date Diabetes mellitus Human immunodeficiency virus (HIV) disease Coronary atherosclerosis of unspecified type of vessel, [place] or graft Acute, but ill-defined, cerebrovascular disease Unspecified essential hypertension Arrhythmia a-fib, v-fib Chronic kidney disease (CKD), stage III (moderate) Paroxysmal SVT (supraventricular tachycardia) Congestive heart failure, unspecified Atrial fibrillation Obesity RACHELLE (obstructive sleep apnea) High cholesterol Back pain ED (erectile dysfunction) Epididymitis 2009 Cellulitis Venous insufficiency (chronic) (peripheral) Past Surgical History Procedure Laterality Date Aicd implantation Meds: Current outpatient prescriptions: ABACAVIR/DOLUTEGRAVIR/LAMIVUDI (NUCZIBSE-EUYGGIJRASUI-JXQ IVUD ORAL), Take 600 mg by mouth once daily. Indications: 600/50/300 mg, Disp: , Rfl: allopurinol 100 mg oral tablet, Take 100 mg by mouth once daily., Disp: , Rfl: aMILoride 5 mg oral tablet, Take 5 mg by mouth two times daily., Disp: , Rfl: calcium acetate 667 mg Oral Capsule, Take 1,334 mg by mouth three times daily with meals. , Disp: , Rfl: camphor-menthol 0.5-0.5 % Topical Lotion, Apply to affected area as needed. , Disp: , Rfl : chlorthalidone 25 mg oral tablet, Take 25 mg by mouth once daily., Disp: , Rfl: furosemide 80 mg oral tablet, Take 80 mg by mouth two times daily., Disp: , Rfl: gabapentin 600 mg Oral Tablet, Take 300 mg by mouth two times daily., Disp: , Rfl: hydrALAZINE 10 mg oral tablet, Take 10 mg by mouth two times daily., Disp: , Rfl: HYDROcodone-acetaminophen 5-325 mg oral tablet, Take 1 tablet by mouth every four hours as needed (Pt. takes 3 tabs every 6-8 hours). Not to exceed 3250 mg of acetaminophen from all p roducts per 24 hour period., Disp: , Rfl: hydrOXYzine pamoate 25 mg oral capsule, Take 25 mg by mouth twice daily as needed., Disp: , Rfl: Insulin Asp Prt-Insulin Aspart 100 unit/mL (70-30) Subcutaneous Insulin Pen, Inject 30 Unit s under the skin (SUBC) before meals., Disp: , Rfl: insulin glargine 100 unit/mL Subcutaneous Solution, Inject 40 Units under the skin (SUBC) t wo times daily., Disp: , Rfl: isosorbide dinitrate 30 mg oral tablet, Take 30 mg by mouth once daily., Disp: , Rfl: Lactobacillus acidophilus oral capsule, Take 2 capsules by mouth two times daily., Disp: , Rfl: magnesium oxide 400 mg oral tablet, Take 420 mg by mouth two times daily., Disp: , Rfl: metoprolol tartrate 50 mg Oral Tablet, Take 50 mg by mouth once daily. , Disp: , Rfl: omega 8-hke-kwd-fish oil (FISH OIL) 100-160-1,000 mg oral capsule, Take 200 mg by mouth two times daily., Disp: , Rfl: potassium chloride SR 20 mEq oral tablet,ER particles/crystals, Take 20 mEq by mouth four t imes daily., Disp: , Rfl: sertraline 50 mg oral tablet, Take 75 mg by mouth once daily., Disp: , Rfl: warfarin 5 mg Oral Tablet, Take 2.5 mg by mouth. As directed by clinic Indications: Cerebr al Thromboembolism Prevention, Disp: , Rfl: Cefdinir Allergies: Allergies Allergen Reactions Amoxicillin Pruritis Cephalexin Pruritis Ciprofloxacin Hcl Acute interstitial nephritis Furosemide Acute interstitial nephritis Niacin Flushing Simvastatin Unknown Sulfa (Sulfonamide Antibiotics) Pruritis Tape, Occlusive Adhesive Rash Triamcinolone Rash Vancomycin Pruritis Review of Systems Constitutional: Negative for fever, chills and weight loss. HENT: Negative for sore throat. Eyes: Negative for blurred vision and double vision. Respiratory: Negative for cough, shortness of breath and wheezing. Cardiovascular: Negative for chest pain, palpitations and orthopnea. Gastrointestinal: Negative for heartburn, nausea, vomiting and constipation. Genitourinary: Negative for dysuria, urgency, frequency, hematuria and flank pain. Musculoskeletal: Positive for joint pain. Negative for myalgias. Skin: Negative for rash. Neurological: Negative for dizziness, tremors, seizures and headaches. Endo/Heme/Allergies: Negative for polydipsia. Bruises/bleeds easily. Psychiatric/Behavioral: Positive for depression. Negative for memory loss. The patient does not have insomnia. Physical Exam: Vital Signs: BP 138/86 | Pulse 68 | RR 20 General: Morbidly obese male in no apparent distress. Alert and oriented x 3. Mood and affect normal . Neck: Trachea midline. No JVD. No thyromegaly. Heart: Regular rate and rhythm without murmurs, rubs, or gallops. Lungs: Clear to auscultation bilaterally without rhonchi, wheezes, or rales. Abdomen: Protuberant abdomen. exam: The phallus itself is buried. The scrotum is without erythema. There was no edema. The r ight testicle is enlarged and mildly firm with a hydrocele. It is mildly tender. This is i mproved from his hospitalization. The left testicle is enlarged with hydrocele. This is so fter than on the right. It is nontender. The testicles themselves are not palpable. Impression: 1. Epididymitis, improving. 2. Cellulitis, resolved. 3. Bilateral hydroceles. Plan 1. Mr. Nelson, his , and I have discussed his current physical exam and findings. I have encouraged them to follow up with the [facility] as previously described. I would like him to see urology either at the [facility] or to return to our office. I have asked him to see us back i anand three or four weeks if he has not been seen at the [facility]. We can also discuss at that time aliza webb or not the urinary tract infections need any workup. 2. He will continue and finish his antibiotics. Edmond Estes M.D./winnie A Mechanic General Operational Test was offered to the patient. The offer was declined. Spouse - Aileen Nelson i n room. Elizabeth Harvey LPN - 015 9:08 AM PDTSubjective Patient ID: Sarthak Nelson is a 64 y.o. male. HPI Review of Systems Musculoskeletal: Negative. Objective Physical Exam Assessment There are no diagnoses linked to this encounter. Elizabeth Harvey LPN - 05/17/2015 9:07 AM PDTSubjective Patient ID: Sarthak Nelson is a 64 y.o. male. HPI Review of Systems Objective Physical Exam Assessment There are no diagnoses linked to this encounter. documented in this encounter Plan of Treatment Not on filedocumented as of this encounter Visit Diagnoses + + | Diagnosis | + + | Epididymitis - Primary Orchitis and epididymitis, unspecified | + + | Hydrocele, unspecified hydrocele type | + + documented in this encounter"
--- OUTSIDE RECORDS SUMMARY | ~2019-10-02 | XMS | Encounter Summary ---
Demographics + + + | Address | [address] | | | [place] [address] | + + + | Home Phone | | + + + | Preferred Language | Unknown | + + + | Marital Status | | + + + | Rastafari Affiliation | 1038 | + + + | Race | Unknown | + + + | Ethnic Group | Unknown | + + + Author + + + | Author | [facility] | | | and [place] | + + + | Organization | [facility] | | | and [place] | + + + | Address | Unknown | + + + | Phone | Unavailable | + + + Support + + + + + | Name | Relationship | Address | Phone | + + + + + | Aileen Nelson | ECON | [address] | | | | | [place] | | | | | [address] | | + + + + + Care Team Providers + +------+ + | Care Cobbler Upper Name | Role | Phone | + +------+ + | Jericho Cao MD | PCP | | + +------+ + Encounter Details +--------+ + + + + | Date | Type | Department | Care Team | Description | +--------+ + + + + | 09/16/ | Orders Only | [facility] | Kwaku Mendoza MD | | | 2017 | | [address] | [address] | | | | | [place], [place] | [place] | | | | | [address] | [address] | | | | | [phone] | [phone] | | | | | | | | +--------+ + + + [...] | + +--------+ + + + | HIV RNA, | Routin | 09/16/2017 | | Results for this | | QUANTITATIVE, PCR | e | 6:16 AM | | procedure are in the | | | | PST | | results section. | + +--------+ + + + documented in this encounter Results HIV RNA, quantitative, PCR (09/16/2017 6:16 AM PST) + + + + + + | Component | Value | Ref Range | Performed | Pathologist | | | | | At | Signature | + + + + + + | HIV-1 RNA | <20Comment: HIV-1 RNA | {Copies}/mL | EXTERNAL | | | by PCR | not detectedThe | | LAB | | | | reportable range for | | | | | | this assay is 20 to | | | | | | 10,000,000copies HIV-1 | | | | | | RNA/mL. | | | | + + + + + + | HIV-1 RNA | UPTCALComment: Unable to | | EXTERNAL | | | by PCR, Qn | calculate result since | | LAB | | | | non-numeric result | | | | | | obtained forcomponent | | | | | | test. | | | | + + + + + + + + | Specimen | + + | | + + + + + | Narrative | Performed At | + + + | Attending/Visit Provider: MASETR MD, Tessa AGUILAR, , , NICOLAS, | EXTERNAL LAB | + + + + +---------+ + + | Performing | Address | City/State/Zipcode | Phone Number | | Organization | | | | + +---------+ + + | EXTERNAL LAB | | | | + +---------+ + + documented in this encounter Visit Diagnoses Not on filedocumented in this encounter"
--- OUTSIDE RECORDS SUMMARY | ~2019-10-02 | XMS | Encounter Summary ---
Demographics + + + | Address | [address] [place] [address] | | | [place] [address] | + + + | Home Phone | | + + + | Preferred Language | Unknown | + + + | Marital Status | Single | + + + | Alevism Affiliation | PEN | + + + | Race | White | + + + | Ethnic Group | Not or | + + + Author + + + | Author | [facility] | + + + | Organization | [facility] | + + + | Address | Unknown | + + + | Phone | Unavailable | + + + Support + + + + + | Name | Relationship | Address | Phone | + + + + + | Aileen Nelson | ECON | [address] | | | | | [place] [address] | | + + + + + Care Team Providers + +------+ + | Care Tile Mechanic Name | Role | Phone | + +------+ + | Romain Harrington MD | PCP | | + +------+ + Reason for Referral Diagnostic Testing (Routine) +--------+--------+ + + + + | Status | Reason | Specialty | Diagnoses / | Referred By | Referred To | | | | | Procedures | Contact | Contact | +--------+--------+ + + + + | Closed | | Radiology | Diagnoses | Veterans, | Rad Pet Kpv | | | | | Renal mass | Administrati | [address] | | | | | Procedures | on [place] | [address] | | | | | PET SKULL | V A MEDICAL | [id number] | | | | | BASE TO | CENTER | [facility] | | | | | [place] | [address] | [place], | | | | | | [place] | [place] [address] | | | | | | [address] | Phone: | | | | | | [place], | [phone] | | | | | | [place] [address] | Fax: | | | | | | Phone: | [phone] | | | | | | [phone] | | | | | | | Fax: | | | | | | | [phone] | | +--------+--------+ + + + + Encounter Details +--------+ + + + + | Date | Type | Department | Care Team | Description | +--------+ + + + + | 10/15/ | Outside | Nuclear Medicine | Deshaun Warren, | | | 2011 | Referral | at [facility] [address] | MD DIONNE Oates | | | | Order | [facility] | [facility] [address] | | | | | Mailcode: [address] | [address] [place] | | | | | [facility] | [address] | | | | | [place], [place] | [facility] [place] [address] | | | | | [address] | [phone] | | | | | [phone] | | | +--------+ + + + [...] as of this encounter Plan of Treatment + +---------+--------+ + + | Name | Type | Priori | Associated Diagnoses | Date/Time | | | | ty | | | + +---------+--------+ + + | PET SKULL BASE TO | Imaging | Routin | Renal mass | 10/22/2011 2:44 PM | | [place] | | e | | PST | + +---------+--------+ + + + +---------+--------+ + + | Name | Type | Priori | Associated Diagnoses | Order Schedule | | | | ty | | | + +---------+--------+ + + | PET SKULL BASE TO | Imaging | Routin | Renal mass | Expected: | | [place] | | e | | 10/15/2011, Expires: | | | | | | 11/14/2012 | + +---------+--------+ + + documented as of this encounter Visit Diagnoses + + | Diagnosis | + + | Renal mass - Primary Unspecified disorder of kidney and ureter | + + documented in this encounter"
--- OUTSIDE RECORDS SUMMARY | ~2019-10-02 | XMS | Encounter Summary ---
Demographics + + + | Address | [address] | | | [place] [address] | + + + | Home Phone | | + + + | Preferred Language | Unknown | + + + | Marital Status | | + + + | Church Affiliation | 1038 | + + + | Race | Unknown | + + + | Ethnic Group | Unknown | + + + Author + + + | Author | [facility] | | | and [place] | + + + | Organization | [facility] | | | and [place] | + + + | Address | Unknown | + + + | Phone | Unavailable | + + + Support + + + + + | Name | Relationship | Address | Phone | + + + + + | Aileen Nelson | ECON | [address] | | | | | [place] | | | | | [address] | | + + + + + Care Team Providers + +------+ + | Care Inspector Government Property Name | Role | Phone | + +------+ + | Jericho Cao MD | PCP | | + +------+ + Encounter Details +--------+ + + + + | Date | Type | Department | Care Team | Description | +--------+ + + + + | 09/15/ | Orders Only | [facility] | Kwaku Mendoza MD | | | 2017 | | [address] | [address] | | | | | [place], [place] | [place] | | | | | [address] | [address] | | | | | [phone] | [phone] | | | | | | | [...] | + +--------+ + + + | LIPASE | Routin | 09/15/2017 | | Results for this | | | e | 8:25 PM | | procedure are in the | | | | PST | | results section. | + +--------+ + + + documented in this encounter Results Lipase (09/15/2017 8:25 PM PST) + +---------+ + + + | Component | Value | Ref Range | Performed | Pathologist | | | | | At | Signature | + +---------+ + + + | Lipase | 437 (H) | 73 - 393 U/L | EXTERNAL | | | | | | LAB | | + +---------+ + + + + + | Specimen | + + | | + + + + + | Narrative | Performed At | + + + | Attending/Visit Provider: , MASTER BARAHONA, Tessa AGUILAR, , , , NICOLAS, | EXTERNAL LAB | [...]
--- OUTSIDE RECORDS SUMMARY | ~2019-10-02 | XMS | Encounter Summary ---
Demographics + + + | Address | [address] | | | [place] [address] | + + + | Home Phone | | + + + | Preferred Language | Unknown | + + + | Marital Status | | + + + | Cheondoism Affiliation | 1038 | + + + | Race | Unknown | + + + | Ethnic Group | Unknown | + + + Author + + + | Author | [facility] | | | and [place] | + + + | Organization | [facility] | | | and [place] | + + + | Address | Unknown | + + + | Phone | Unavailable | + + + Support + + + + + | Name | Relationship | Address | Phone | + + + + + | Aileen Nelson | ECON | [address] | | | | | [place] | | | | | [address] | | + + + + + Care Team Providers + +------+ + | Care Carpet Renovator Name | Role | Phone | + [...] [address] | | | | | [place], [place] | [place] | | | | | [address] | [address] | | | | | [phone] | [phone] | | | | | | | [...] | + +--------+ + + + | AMYLASE | Routin | 09/15/2017 | | Results for this | | | e | 8:25 PM | | procedure are in the | | | | PST | | results section. | + +--------+ + + + documented in this encounter Results Amylase (09/15/2017 8:25 PM PST) + +-------+ + + + | Component | Value | Ref Range | Performed | Pathologist | | | | | At | Signature | + +-------+ + + + | Amylase | 61 | 25 - 115 U/L | EXTERNAL | | | | | | LAB | | + +-------+ + + + + + | Specimen | + + | | + + + + + | Narrative | Performed At | + + + | Attending/Visit Provider: , MASTER BARAHONA, Tessa AGUILAR, , , NICOLAS, | EXTERNAL [...]
--- OUTSIDE RECORDS SUMMARY | ~2019-10-02 | XMS | Encounter Summary ---
Demographics + + + | Address | [address] [place] [address] | | | [place] [address] | + + + | Home Phone | | + + + | Preferred Language | Unknown | + + + | Marital Status | Single | + + + | Oriental Orthodox Affiliation | PEN | + + + [...] | | | | | [place] [address] | | + + + + + Care Team Providers + +------+ + | Care Tab Card Press Operator Name | Role | Phone | + +------+ + PCP | Unavailable | + +------+ + Encounter Details +--------+ + + + + | Date | Type | Department | Care Team | Description | +--------+ + + + + | 10/13/ | Results | Registration [id number] | [facility] | | | 2009 | Only | [address] | [phone] | | | | | Rd Mailcode: RPB[address] | | | | | | [place], [place] | | | | | | [address] | | | | | | [phone] | | | +--------+ + + + [...] CT HEAD WO CONTRAST | Routin | 10/13/2009 | | Results for this | | | e | 11:18 AM | | procedure are in the | | | | PST | | results section. | + +--------+ + + + documented in this encounter Results CT HEAD WO CONTRAST (10/13/2009 11:18 AM PST) + + + + + + | Component | Value | Ref Range | Performed | Pathologist | | | | | At | Signature | + + + + + + | CT HEAD WO | CT Head: 10/13/09 | | | | | CONTRAST | 11:18:00 Comparison | | | | | | studies: None. Clinical | | | | | | history: Evaluate for | | | | | | hemorrhage Technique: | | | | | | Contiguous non contrast | | | | | | axial images through the | | | | | | brainwere reviewed in | | | | | | brain and bone | | | | | | algorithms. Findings: | | | | | | Lucency in the inferior | | | | | | aspect of the right | | | | | | basal ganglia | | | | | | mayrepresent a | | | | | | perivascular space, deep | | | | | | sulcus, or possibly a | | | | | | small oldappearing. | | | | | | There is no | | | | | | intracranial hemorrhage, | | | | | | mass-effect, | | | | | | midlineshift, or | | | | | | hydrocephalus. | | | | | | Ventricles sulci and | | | | | | cisterns aremaintained. | | | | | | There is right | | | | | | posterior scalp | | | | | | thickening | | | | | | andhyperdensity, with a | | | | | | small scar, age | | | | | | indeterminate. The | | | | | | visualizedcalvarium | | | | | | paranasal sinuses | | | | | | mastoids and orbits are | | | | | | unremarkable. | | | | | | Nofractures. | | | | | | IMPRESSION: 1. No | | | | | | acute intracranial | | | | | | abnormality.2. Age | | | | | | indeterminate right | | | | | | posterior scalp | | | | | | laceration. I have | | | | | | personally viewed this | | | | | | procedure/exam and | | | | | | reviewed this report. | | | | | | Author: MARS ZHANG | | | | | | IainReviewer: MARS | | | | | | Iain ZHANG STATUS | | | | | | FINAL / Dr. CREWS | | | | | | VICENTE | | | | + + + + + + + + | Specimen | + + | | + + + +---------+ + + | Performing | Address | City/State[facility] | Phone Number | | Organization | | | | + +---------+ + + | [facility] DEPARTMENT OF | | | | | RADIOLOGY | | | | + +---------+ + + documented in this encounter Visit Diagnoses Not on filedocumented in this encounter"
--- OUTSIDE RECORDS SUMMARY | ~2019-10-02 | XMS | Encounter Summary ---
Demographics + + + | Address | [address] [place] [address] | | | [place] [address] | + + + | Home Phone | | + + + | Preferred Language | Unknown | + + + | Marital Status | Single | + + + | Lutheran Affiliation | PEN | + + + [...] | | | | | [place] [address] | | + + + + + Care Team Providers + +------+ + | Care Traveling Construction Superintendent Name | Role | Phone | + [...] Ellen Fritz | | | | | [facility] [address] | [address] [place], | | | 03/22/ | | [facility] | [place] [address] | | | 2011 | | [place], [place] | [phone] | | | | | [address] | | | | | | [phone] | Loni Gardner MD | | | | | | [address] | | | | | | Street [place], [place] | | | | | | [address] | | | | | | | [...] 03/22/2012 Thank you for coming to the [facility] ED. You have been diagnosed with chest [...] doctor if you can take an o gzc-mjx-khusfwk medicine. Rest and protect the sore area. [...] Pain: After Your Visit", log into your [employer]power a ccount at [email or web address]. You can enter V293 in the Ge[employer] Library" search b ox. Not on [employer]? Review the Ubiquigenthart section of your After Visit Summary for directions on ho w to sign up. [id number] [employer]. Care instructions adapted under license by [facility]. This care instruction is for use with your licensed healthcar e professional. If you have questions about a medical condition or this instruction, always ask your healthcare professional. [employer] disclaims any warranty or liabili ty for your use of this information. Content Version: 9.3.39577; Last Revised: 2010 documented in this encounter [...] Provider: No primary provider on file. Primary Electric Motor Winders Assembler: [place] [facility] I was paged by ER to see Mr. Sarthak Nelson for ICD check. Sarthak Nelson is a 61 y.o . Male with ICD who came to ED and reports that his ICD fired. No diagnosis found. Generator: Device: Capriza Model #: TELIGEN 100 [id number] Serial #: [id number] Implanted: 12/29/2010 Leads: RV: GUIDANT Implant date: 12/29/2010 ICD PROGRAMMING: Alberto Mode: VVI Lower Rate: 40 bpm TACHY PARAMETERS: VT Detection Rate: 180, Therapy: ATP X3, CV: 5J, 41 JX2. Vf Detection Rate: 210. Therapy: CV: 5J, 41J X8. Patient is not pacer dependent. Today's underline rhythm is sinus 88. PACING PERCENTAGE: ASSEMBLER BICYCLE: 0% EPISODES detected today: 0 Last NSVT [...] today. Recommendations: Cardiology consult. Zandra Long PA-C [facility] DEPARTMENT: [id number]- CAR OFFSET SECOND PRESS OPERATOR EP [facility] Place of Service: [address] - ED Date of Service: 03/21/2012 CSN: [id number] Suggested Level of Care: 22617 - Programming device evaluation; single lead implantable [...] BRENDA | [address] | [place], [place] | | | RE[facility] OF CARE | [address] | [address] | | | TESTS | | | [...] | | | | | | | <py=134....... Negative: | | | | | | [...] CHF. | | | | | | >nx=773....... Highly | | | | | | consistent with CHF. | | | | | | Patients with BNP>fu=657 | | | | | | | [...] | + + + + + | [facility] | [address] | [place] [address] | | | PATHOLOGY | [address] [...] | + + + + + | [facility] DEPARTMENT | [address] | [place] [address] | | | PATHOLOGY | [address] [...] view image for the detailed interpretation from Goowy results. | CARDIOLOGY | + + + + + + + + | Performing | Address | City/State/Zipcode | Phone Number | | Organization | | | | + + + + + | [facility] | [address] | [place], [place] | | | CARDIOLOGY | [address] | [address] | | + + + + + [...] GUTIERREZ | [address] | [place], [place] | | | [facility] | [address] | [address] | | | TESTS | | | [...] BASO # | 0.1 | <0.2 | [facility] | | | | | | DEPARTMENT [...] | + + + + + | [facility] DEPARTMENT OF | [address] | [place] [address] | | | PATHOLOGY | [address] [...] | + + + + + | [facility] DEPARTMENT OF | [address] | [place] [address] | | | PATHOLOGY | [address] [...] | | | DEPARTMENT | | | [facility] | | | OF | | | [...] | + + + + + | [facility] | [address] | [place] [address] | | | PATHOLOGY | [address] [...] | + + + + + | [facility] DEPARTMENT | [address] | [place] [address] | | | PATHOLOGY | [address] | | | + + + + + 12 LEAD ECG (03/21/2012 4:04 PM PDT) + + + + + + | Component | Value | Ref Range | Performed | Pathologist | | | | | At | Signature | + + + + + + | VENTRICULAR | 77 | BPM | [facility] DEPT | | | RATE | | [...] MEZA | | | | | | ([id number]) on 03/22/2012 | | | | | | 3:31:04 PM | | | | + + + + + + + + | Specimen | + + | | + + + + + | Narrative | Performed At | + + + | Please click | [facility] | | on view image for the detailed interpretation from Goowy results. | CARDIOLOGY | + + + + + + + + | Performing | Address | City/State/Zipcode | Phone Number | | Organization | | | | + + + + + | [facility] | [address] | [place], [place] | | | CARDIOLOGY | [address] | [address] | | + + + + + [...]
--- OUTSIDE RECORDS SUMMARY | ~2019-10-02 | XMS | Encounter Summary ---
Demographics + + + | Address | [address] [place] [address] | | | [place] [address] | + + + | Home Phone [...] + + + | Author | [facility] | + + + | Organization | [facility] | + + + | Address | Unknown | + + + | Phone | Unavailable | + + + Support + + + + + | Name | Relationship | Address | Phone | + + + + + | Aileen Nelson | ECON | [address] | | | | | [place] [address] | | + + + + + Care Team Providers + +------+ + | Care Scale Adjuster Name | Role | Phone | + +------+ + | Rmoain Harrington MD | PCP | | + [...] [place] | | | | | | [address] | | | | | | [phone] | | | | | | | [...]
--- OUTSIDE RECORDS SUMMARY | ~2019-10-02 | XMS | Encounter Summary ---
Demographics + + + | Address | [address] [place] [address] | | | [place] [address] | + + + | Home Phone [...] + + + | Author | [facility] | + + + | Organization | [facility] | + + + | Address | Unknown | + + + | Phone | Unavailable | + + + Support + + + + + | Name | Relationship | Address | Phone | + + + + + | Aileen Nelson | ECON | [address] | | | | | [place] [address] | | + + + + + Care Team Providers + +------+ + | Care Awning Installer Name | Role | Phone | + +------+ + PCP | Unavailable | + +------+ + Encounter Details +--------+ + + + + | Date | Type | Department | Care Team | Description | +--------+ + + + + | 03/07/ | Results | [facility] | Africa Cheney MD | | | 2011 | Only | Department | [address] | | | | | | [address] | | | | | | [facility] [address] | | | | | | [phone] | | | | | | | [...] | + +--------+ + + + | IMMUNOFLUORESCENCE | Routin | 03/07/2012 | | Results for this | | STUDY | e | | | procedure are in the | | | | | | results section. | + +--------+ + + + documented in this encounter Results IMMUNOFLUORESCENCE STUDY (03/07/2012) + + + + + + | Component | Value | Ref Range | Performed | Pathologist | | | | | At | Signature | + + + + + + | IMMUNOFLUOR | SOURCE OF SPECIMEN:A | | [facility] | | | ESCENCE | Direct | | DERMATOPATH | | | STUDY | Immunofluorescence | | OLOGY | | | | CLINICAL INFORMATION:On | | | | | | March 07, 2012, a 4mm | | | | | | punch biopsy was taken | | | | | | from lesional skin of | | | | | | [facility] for | | | | | | direct | | | | | | immunofluorescence | | | | | | studies from a patient | | | | | | withan 8-10wk. 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 TISSUE | | | | | | PROCESSING:On March 09, | | | | | | 2011, a 4 x 7mm sullivan | | | | | | cylinder of tissue was | | | | | | received in | | | | | | directimmunofluorescence | | | | | | holding solution. | | | | | | After washing, the | | | | | | tissue was frozenOCT, | | | | | | and cryosectioned onto | | | | | | five separate slides. | | | | | | The sections were | | | | | | thenstained with | | | | | | fluorescein | | | | | | isothiocyanate | | | | | | conjugated anti-human | | | | | | IgG, IgA,IgM, C3, and | | | | | | fibrinogen, | | | | | | respectively. | | | | | | FINDINGS:There is | | | | | | focally weak to | | | | | | moderately intense | | | | | | granular deposition of | | | | | | C3 alongthe basement | | | | | | membrane zone in several | | | | | | locations. There is | | | | | | no specificdeposition of | | | | | | IgA in dermal papillary | | | | | | tips nor along the | | | | | | basement membranezone. | | | | | | There is no granular | | | | | | deposition of | | | | | | immunoreactants | | | | | | identified withinthe | | | | | | cummings of dermal blood | | | | | | vessels. There is no | | | | | | specific deposition of | | | | | | IgG,IgA, IgM, or | | | | | | fibrinogen identified in | | | | | | these sections. | | | | | | COMMENTS/DIAGNOSIS:There | | | | | | are no diagnostic | | | | | | immunopathologic changes | | | | | | identified in | | | | | | thesesections. | | | | | | Granular deposition of | | | | | | C3 focally at the | | | | | | basement membrane zoneis | | | | | | not a diagnostic or | | | | | | specific | | | | | | immunopathologic change. | | | | | | While it can beseen | | | | | | in dermatitis | | | | | | herpetiformis, this | | | | | | diagnosis cannot be | | | | | | established froman | | | | | | immunopathologic | | | | | | standpoint in the | | | | | | absence of granular | | | | | | deposition of IgAas | | | | | | well. There are no | | | | | | findings to support a | | | | | | diagnosis of vasculitis | | | | | | inthese sections. | | | | | | Correlation with | | | | | | routine histology would | | | | | | be of value inarriving | | | | | | at a final diagnosis. | | | | | | If dermatitis | | | | | | herpetiformis remains in | | | | | | theclinical | | | | | | differential, a repeat | | | | | | biopsy for direct | | | | | | immunofluorescencestudie | | | | | | s from perilesional skin | | | | | | may add additional | | | | | | information. | | | | | | Testing was performed | | | | | | with an appropriate | | | | | | positive and negative | | | | | | control foreach | | | | | | immunoreactant. | | | | | | LHM:jyi03/14/12 | | | | | | cc: [facility] | | | | | | Iain Corrigan | | | | | | Kenya Bunch M.D. | | | | | | My electronic signature | | | | | | indicates that I have | | | | | | personally reviewed | | | | | | alldiagnostic slides, | | | | | | the gross and/or | | | | | | microscopic portion of | | | | | | thisreport and | | | | | | formulated the final | | | | | | diagnosis. | | | | | | Rendering Diagnostician: | | | | | | Africa Vasquez | | | | | | IainPathologistElectroni | | | | | | bob Signed 03/14/2012 | | | | | | 7:07PM | | | | + + + + + + + + | Specimen | + + | | + + + + + + + | Performing | Address | City/State/Zipcode | Phone Number | | Organization | | | | + + + + + | [facility] | [id number] | [place] [address] | | | DERMATOPATHOLOGY | [address] | | | + + + + + documented in this encounter Visit Diagnoses Not on filedocumented in this encounter"
--- OUTSIDE RECORDS SUMMARY | ~2019-10-02 | XMS | Encounter Summary ---
Demographics + + + | Address | [address] [place] [address] | | | [place] [address] | + + + | Home Phone | | + + + | Preferred Language | Unknown | + + + | Marital Status | Single | + + + | Roman Catholic Affiliation | PEN | + + + [...] | | | | | [place] [address] | | + + + + + Care Team Providers + +------+ + | Care Clubhouse Attendant Name | Role | Phone | [...] | | Results for this | | [address] | e | 6:03 PM | | [...] POINT | | | GLUCOSE, | ID: [id number]: | | OF CARE | | | POC | [id number] Naida Lyles | | TESTING | | | |Technology Engineer: [id number] Naida Lyles | | | | | [...] | + +---------+ + + SCROTAL ULTRASOUND [id number] (05/08/2015 6:03 PM PDT) + + | Specimen | + + | | + + + + + | Narrative | Performed At | + + + | Name: | [facility] | | ARANDA,SARTHAK E | DEPARTMENT OF | | Phys: Bruno Gray MD | RADIOLOGY | | | | | : 1950 Age: 64 Sex: M | | | Acct: [id number] Loc: 426 2 | | | | | | Exam Date: 05/08/2015 Status: ADM IN | | | Radiology No: [id number] | | | Unit No: | | | [id number] EXAM# TYPE/EXAM | | | RESULT | | | [id number] US/SCROTAL ULTRASOUND 72431 | | | EXAM: SCROTAL ULTRASOUND | [...] | | | Transcribed Date/Time: 05/08/2015 (1803) Supervisor Feed Mill: | | | SPEECHQ PAGE 1 Signed Report | | | | | + + + + + | Procedure Note | + + | Interface, Radiology Results - 05/08/2015 6:04 PM PDT | | Name: SARTHAK ARANDA | | Phys: Bruno Gray MD : | | 1950 Age: 64 Sex: M Acct: [id number] | | Loc: 426 2 Exam Date: 05/08/2015 | | Status: ADM IN Radiology No: [id number] | | Unit No: [id number] EXAM# TYPE/EXAM | | RESULT [id number] US/SCROTAL ULTRASOUND | | [id number] EXAM: SCROTAL ULTRASOUND | | CLINICAL HISTORY: [...] | Transcribed Date/Time: | | 05/08/2015 (1803) Supervisor Feed Mill: GABRIELQ PAGE 1 Signed Report | | [...] | | | | Transcribed Date/Time: 05/08/2015 (5612) | | Supervisor Feed Mill: SPEECHQ | | | | | | [...] POINT | | | GLUCOSE, | ID: [id number]: | | OF CARE | | | POC | [id number] Raisa Jesus Manuel | | TESTING | | | |Technology Engineer: [id number] Raisa Ken | | | | | [...] POINT | | | GLUCOSE, | ID: [id number]: | | OF CARE | | | POC | [id number] Raisa Ken | | TESTING | | | |Technology Engineer: [id number] Raisa Ken | | | | | [...] [facility] POINT | | | GLUCOSE, | [id number]: | | OF CARE | | | POC | [id number] Carie Mueller | | TESTING | | [...] [facility] | | | PLASMA | to health researcher: ADD ON | | MEDITECH | | | (LAB) | PREFERRED | | LABORATORY | | + + + + + + + + | Specimen | + + | | + + + + + | Narrative | Performed At | + + + | Comments to health researcher: ADD ON PREFERRED | [facility] | [...] [facility] | | | PLASMA | to health researcher: ADD ON | mmol/L | MEDITECH | | | (LAB) | PREFERRED | | LABORATORY | | + + + + + + + + | Specimen | + + | | + + + + + | Narrative | Performed At | + + + | Comments to health researcher: ADD ON PREFERRED | [facility] MED[facility]CH | [...]
--- OUTSIDE RECORDS SUMMARY | ~2019-10-02 | XMS | Encounter Summary ---
Demographics + + + | Address | [address] | | | [place] [address] | + + + | Home Phone | | + + + | Preferred Language | Unknown | + + + | Marital Status | | + + + | Orthodox Affiliation | 1038 | + + + | Race | Unknown | + + + | Ethnic Group | Unknown | + + + Author + + + | Author | [facility] | | | and [place] | + + + | Organization | [facility] | | | and [place] | + + + | Address | Unknown | + + + | Phone | Unavailable | + + + Support + + + + + | Name | Relationship | Address | Phone | + + + + + | Aileen Nelson | ECON | [address] | | | | | [place] | | | | | [address] | | + + + + + Care Team Providers + +------+ + | Care Professor Of Engineering Name | Role | Phone | + [...] Ted Navarro | | | | | [place], [place] | [place] | | | | | [address] | [address] | | | | | [phone] | [phone] | | | | | | | [...]
--- OUTSIDE RECORDS SUMMARY | ~2019-10-02 | XMS | Encounter Summary ---
Demographics + + + | Address | [address] [place] [address] | | | [place] [address] | + + + | Home Phone | | + + + | Preferred Language | Unknown | + + + | Marital Status | Single | + + + | Faith Affiliation | PEN | + + + [...] | | | | | [place] [address] | | + + + + + Care Team Providers + +------+ + | Care Rn Surgery Name | Role | Phone | + +------+ + PCP | Unavailable | + +------+ + Encounter Details +--------+ + + + + | Date | Type | Department | Care Team | Description | +--------+ + + + + | 10/13/ | Results | Registration [address] | [facility] | | | 2009 | Only | [address] | [phone] | | | | | Rd Mailcode: [address] | | | | | | [place], [place] | | | | | | [address] | | | | | | [phone] | | | +--------+ + + + [...] + + | Performing | Address | City[facility] | Phone Number | | Organization | | | | + +---------+ + + | [facility] DEPARTMENT OF | | | | | RADIOLOGY | | | | + +---------+ + + documented in this encounter Visit Diagnoses Not on filedocumented in this encounter"
--- OUTSIDE RECORDS SUMMARY | ~2019-10-02 | XMS | Encounter Summary ---
Demographics + + + | Address | [address] [place] [address] | | | [place] [address] | + + + | Home Phone | | + + + | Preferred Language | Unknown | + + + | Marital Status | Single | + + + | Sabianist Affiliation | PEN | + + + | Race | White | + + + | Ethnic Group | Not or | + + + Author + + + | Author | [facility] | + + + | Organization | [facility] | + + + | Address | Unknown | + + + | Phone | Unavailable | + + + Support + + + + + | Name | Relationship | Address | Phone | + + + + + | Aileen Nelson | ECON | [address] | | | | | [place] [address] | | + + + + + Care Team Providers + +------+ + | Care Launch Manager Name | Role | Phone | + +------+ + | Romain Harrington MD | PCP | | + +------+ + Encounter Details +--------+ + + + + | Date | Type | Department | Care Team | Description | +--------+ + + + + | 05/05/ | Results | [facility] | Ghanshyam Raymond | | | 2014 | Only | Department | MD Katrin [address] | | | | | | St [place] | | | | | | [address] | | | | | | [phone] | | | | | | | [...] + | CAP GLU,POC | Routin | 05/05/2015 | | Results for this | | | e | 11:06 PM | | procedure are in the | | | | PDT | | results section. | + +--------+ + + + | CAP GLU,POC | Routin | 05/05/2015 | | Results for this | | | e | 8:47 PM | | procedure are in the | | | | PDT | | results section. | + +--------+ + + + | CAP GLU,POC | Routin | 05/05/2015 | | Results for this | | | e | 5:23 PM | | procedure are in the | | | | PDT | | results section. | + +--------+ + + + | CAP GLU,POC | Routin | 05/05/2015 | | Results for this | | | e | 12:02 PM | | procedure are in the | | | | PDT | | results section. | + +--------+ + + + | CAP GLU,POC | Routin | 05/05/2015 | | Results for this | | | e | 8:23 AM | | procedure are in the | | | | PDT | | results section. | + +--------+ + + + | CAP GLU,POC | Routin | 05/05/2015 | | Results for this | | | e | 6:00 AM | | procedure are in the | | | | PDT | | results section. | + +--------+ + + + | RBC MORPHOLOGY | Routin | 05/05/2015 | | Results for this | | | e | 5:28 AM | | procedure are in the | | | | PDT | | results section. | + +--------+ + + + | CBC W/DIFF, REFLEX | Routin | 05/05/2015 | | Results for this | | | e | 5:28 AM | | procedure are in the | | | | PDT | | results section. | + +--------+ + + + | INR | Routin | 05/05/2015 | | Results for this | | | e | 5:28 AM | | procedure are in the | | | | PDT | | results section. | + +--------+ + + + | BASIC METABOLIC SET | Routin | 05/05/2015 | | Results for this | | (NA, K, CL, TCO2, | e | 5:28 AM | | procedure are in the | | BUN, CR, GLU, CA) | | PDT | | results section. | + +--------+ + + + | CAP GLU,POC | Routin | 05/05/2015 | | Results for this | | | e | 12:40 AM | | procedure are in the | | | | PDT | | results section. | + +--------+ + + + documented in this encounter Results CAP GLU,POC (05/05/2015 11:06 PM PDT) + + + + + + | Component | Value | Ref Range | Performed | Pathologist | | | | | At | Signature | + + + + + + | BLOOD | 192 (A)Comment: Meter | 70 - 110 MG/DL | [facility] | | | GLUCOSE, | ID: [id number]: | | OF CARE | | | POC | [id number] Jesse Ivey | | TESTING | | | |Money Manager: [id number] Jesse Ivey | | | | | | | [...] + +---------+ + + CAP AIDE CARDONA (05/05/2015 8:47 PM PDT) + + + + + + | Component | Value | Ref Range | Performed | Pathologist | | | | | At | Signature | + + + + + + | BLOOD | 167 (A)Comment: Meter | 70 - 110 MG/DL | [facility] | | | GLUCOSE, | ID: [id number]: | | OF CARE | | | POC | [id number] John Goyal | | TESTING | | | |Money Manager: [id number] John Goyal | | | | | [...] | + +---------+ + + CAP GLU,POC (05/05/2015 5:23 PM PDT) + + + + + + | Component | Value | Ref Range | Performed | Pathologist | | | | | At | Signature | + + + + + + | BLOOD | 140 (A)Comment: Meter | 70 - 110 MG/DL | [facility] | | | GLUCOSE, | ID: [id number]: | | OF CARE | | | POC | [id number] John Goyal | | TESTING | | | |Money Manager: [id number] John Goyal | | | | | [...] | + +---------+ + + CAP GLU,POC (05/05/2015 12:02 PM PDT) + + + + + + | Component | Value | Ref Range | Performed | Pathologist | | | | | At | Signature | + + + + + + | BLOOD | 193 (A)Comment: Meter | 70 - 110 MG/DL | [facility] | | | GLUCOSE, | ID: [id number]: | | OF CARE | | | POC | [id number] John Goyal | | TESTING | | | |Money Manager: [id number] John Goyal | | | | | [...] | + +---------+ + + AIDE MCALLISTER (05/05/2015 8:23 AM PDT) + + + + + + | Component | Value | Ref Range | Performed | Pathologist | | | | | At | Signature | + + + + + + | BLOOD | 204 (A)Comment: Meter | 70 - 110 MG/DL | [facility] | | | GLUCOSE, | ID: [id number]: | | OF CARE | | | POC | [id number] Linsey Peñaloza | | TESTING | | | |Money Manager: [id number] Linsey Anabela | | | | | | | [...] | + +---------+ + + CAP GLU,POC (05/05/2015 6:00 AM PDT) + + + + + + | Component | Value | Ref Range | Performed | Pathologist | | | | | At | Signature | + + + + + + | BLOOD | 198 (A)Comment: Meter | 70 - 110 MG/DL | [facility] | | | GLUCOSE, | ID: [id number]: | | OF CARE | | | POC | [id number] Jesse Ivey | | TESTING | | | |Money Manager: [id number] Jesse Ivey | | | | | | | [...] | + +---------+ + + RBC MORPHOLOGY (05/05/2015 5:28 AM PDT) + + + + + [...] + + + + | RBC | FEW TARGET CELLS | NORMAL | [facility] | | | [...] + +---------+ + + CBC W/DIFF, REFLEX (05/05/2015 5:28 AM PDT) + + + + + + | Component | Value | Ref Range | Performed | Pathologist | | | | | At | Signature | + + + + + + | WHITE BLOOD | 9.9 | 3.2 - 11.0 X10 | [facility] | | | CELL COUNT | | 3/uL | [facility] | | | | | | LABORATORY | | + + + + + + | HEMOGLOBIN | 13.4 | 12.0 - 18.0 | [facility] | | | | | g/dL | [facility] | | | | | | LAB[facility]AT[facility] | | + + + + + + | RED BLOOD | 4.20 | 3.5 - 6.0 X10 | [facility] | | | CELL COUNT | | 6/uL | [facility] | | | | | | LAB[facility]AT[facility] | | + + + + + + | HEMATOCRIT | 39.9 | 37.0 - 52.0 % | [facility] | | | | | | [facility] | | | | | | LAB[facility]AT[facility] | | + + + + + + | MCV | 95.0 | 82 - 100 fL | [facility] | | | | | | [facility] | | | | | | [facility] | | + + + + + + | MCH | 31.9 | 28.0 - 34.7 pg | [facility] | | | | | | [facility] | | | | | | [facility] | | + + + + + + | MCHC | 33.5 | 32 - 36 g/dL | [facility] | | | | | | [facility] | | | | | | [facility] | | + + + + + + | RDW | 16.8 (A) | 12 - 16 % | [...] + + + + | MPV | 9.3 | 7.0 - 12.0 fL | [facility] | | | | | | [facility] | | | | | | [facility] | | + + + + + + | NEUTROPHIL | 69.6 | 40 - 80 % | [facility] | | | % | | | [facility] | | | | | | [facility] | | + + + + + + | LYMPHOCYTE | 17.7 | 15 - 45 % | [facility] [...] + + + | BASO % | 0.8 | 0 - 2.0 % | [facility] | | | | | | [facility] | | | | | | [facility]AT[facility] | | + + + + + + | MONOCYTE % | 9.0 | 4.0 - 12.0 % | [facility] [...] | | + +---------+ + + INR (05/05/2015 5:28 AM PDT) + + + + + + | Component | Value | Ref Range | Performed | Pathologist | | | | | At | Signature | + + + + + + | PROTHROMBIN | 14.0 (A) | 8.6 - 11.2 SEC | [facility] | | | TIME | | | [facility] | | | | | | LABORATORY | | + + + + + + | INR | 1.4 (A) | 1.0 - 1.1 | [facility] [...] K, CL, TCO2, BUN, CR, GLU, CA) (05/05/2015 5:28 AM PDT) + +---------+ + + + [...] +---------+ + + + | POTASSIUM, | 4.0 | 3.5 - 5.2 | [facility] | | | PLASMA | | mmol/L | [facility] | | | (LAB) | | | LABORATORY | | + +---------+ + + + | CO2 | 27 | 20 - 27 mmol/L | [facility] | | | | | | [facility] | | | | | | LABORATORY | | + +---------+ + + + | CHLORIDE, | 99 | 96 - 106 mmol/L | [facility] [...] +---------+ + + + | GLUCOSE, | 206 (A) | 70 - 105 mg/dL | [facility] | | | PLASMA | | | [facility] | | | (LAB) | | | LABORATORY | | + +---------+ + + + | BUN, PLASMA | 39 (A) | 6 - 26 mg/dL | [...] +---------+ + + + | BUN/CREATIN | 24 (A) | 6 - 20 RATIO | [facility] | | | INE RATIO | | | [facility] | | | | | | LABORATORY | | + +---------+ + + + | CALCIUM, | 9.0 | 8.5 - 10.8 | [facility] | [...] + +---------+ + + CAP AIDE CARDONA (05/05/2015 12:40 AM PDT) + + + + + + | Component | Value | Ref Range | Performed | Pathologist | | | | | At | Signature | + + + + + + | BLOOD | 227 (A)Comment: Meter | 70 - 110 MG/DL | [facility] | | | GLUCOSE, | ID: [id number]: | | OF CARE | | | POC | [id number] Davijasvir Diop | | TESTING | | | |Money Manager: [id number] Davi Diop | | | | | | | [...]
--- OUTSIDE RECORDS SUMMARY | ~2019-10-02 | XMS | Encounter Summary ---
Demographics + + + | Address | [address] [place] [address] | | | [place] [address] | + + + | Home Phone [...] Author + + + | Author | [facility] | + + + | Organization | [facility] | + + + | Address | Unknown | + + + | Phone | Unavailable | + + + Support + + + + + | Name | Relationship | Address | Phone | + + + + + | Aileen Aranda | ECON | [address] | | | | | [place] [address] | | + + + + + Care Team Providers + +------+ + | Care Straightening Machine Operator Name | Role | Phone [...] | | | | nscribed | [place] | Med Cntr | | | | | [phone] | [facility] [address] | | | | | [address] | | | | | | [place] | | | | | | [phone] | | | | | | | [...] Bruno Gray MD - 05/10/2015 1:26 PM [facility] DISCHARGE SUMMARY [address] ADDENDUM [place] [address] ADDENDUM: DATE OF ADMISSION: 05/04/2015 Because there is minimal change to improvement for his scrotal cellulitis, cefdinir was discussed in detail with infectious disease doctor at the [facility], Srinivas Lafleur, upon discharge, stating that cefdinir at 300 mg b.i.d. is being continued and if there is need to increase it any further based on patient's weight. Srinivas Lafleur spoke with Marlin Winter, who is a pharmacist at the [facility], and their mutual decision was to keep [...] for Marlin Winter, the pharmacist at the [facility], was [phone] [facility] 3332. ILL/MedQ /[id number] Electronically Signed 05/20/15 0736 MD MANOJ Abbott EDWARD E [id number] : 50 [id number] ADMIT DATE: 05/04/15 DISCHARGE DATE: 05/10/15 Bruno Verdin MD - 05/10/2015 12:02 PM [facility] DISCHARGE SUMMARY [address] [place] [address] SARTHAK ARANDA DATE OF ADMISSION: 05/04/2015 DATE [...] on April 23 he went to the [facility] for urinary tract symptoms and was [...] multiple times in the ED. SARTHAK ARANDA [id number] : 50 [id number] ADMIT DATE: 05/04/15 DISCHARGE DATE: 05/10/15 HOSPITAL [...] for 3 weeks in total. However, the [facility] only allows 14 days of antibiotics maximum [...] the infectious disease lead clinical at the [facility], his last CD4 count in February 2015 was 873. She did not suspect that this was an opportunistic infection causing epididymo-orchitis and did agree with 3rd generation cephalosporins as it would not only cover for the E coli that we isolated in his urinalysis from SARTHAK ARANDA [id number] : 50 [id number] ADMIT DATE: 05/04/15 DISCHARGE DATE: 05/10/15 the [facility] when he saw them 2 weeks ago, [...] 25 mg b.i.d. as needed. SARTHAK ARANDA [id number] : 50 [id number] ADMIT DATE: 05/04/15 DISCHARGE DATE: 05/10/15 6. [place] 5/325 mg 1 tablet q.4 hours as [...] up with the anticoagulation clinic at the [facility] for further management. 3. Lantus 40 units subcu b.i.d., down from 50 units subcu b.i.d. Stopped medications: 1. Doxycycline. 2. Warfarin 5 mg Wednesday, Wednesday, Wednesday, Wednesday. DISCHARGE FOLLOWUP: 1. With Dr. Estes within 3-7 days. 2. With [facility] infectious disease physician/specialist within 3-7 days. 3. Romain Harrington within 1-2 weeks. 4. Anticoagulation clinic within 1-2 days. DISCHARGE ACTIVITY: As tolerated. DISCHARGE DIET: Diabetic and low salt and low sodium. Spent more than 30 minutes counseling and coordinating care. DEYANIRA/MedQ /[id number] CC: Iain WHITE M.D. JESSE M. PAPAC, M.D. Electronically Signed 05/20/15 0735 Bruno Gray MD ARANDASARTHAK [id number] : 50 [id number] ADMIT DATE: 05/04/15 DISCHARGE DATE: 05/10/15 Tdocumented in this encounter Plan of Treatment Not on filedocumented as of this encounter Visit Diagnoses Not on filedocumented in this encounter"
--- OUTSIDE RECORDS SUMMARY | ~2019-10-02 | XMS | Encounter Summary ---
Demographics + + + | Address | [address] [place] [address] | | | [place] [address] | + + + | Home Phone | | + + + | Preferred Language | Unknown | + + + | Marital Status | Single | + + + | Druze Affiliation | PEN | + + + | Race | White | + + + | Ethnic Group | Not or | + + + Author + + + | Author | [facility] | + + + | Organization | [facility] | + + + | Address | Unknown | + + + | Phone | Unavailable | + + + Support + + + + + | Name | Relationship | Address | Phone | + + + + + | Aileen Nelson | ECON | [address] | | | | | [place] [address] | | + + + + + Care Team Providers + +------+ + | Care Palliative Care Physician Name | Role | Phone | + +------+ + | Romain Harrington MD | PCP | | + +------+ + Encounter Details +--------+ + + + + | Date | Type | Department | Care Team | Description | +--------+ + + + + | 05/04/ | [facility] | [facility] | José Miguel, | History & Physical | | 2014 | ibed | E The | Kym Oates MD | | | | | [place] | | | | | | [phone] | | | +--------+ + + + [...]
--- OUTSIDE RECORDS SUMMARY | ~2019-10-02 | XMS | Encounter Summary ---
Demographics + + + | Address | [address] | | | [place] [address] | + + + | Home Phone | | + + + | Preferred Language | Unknown | + + + | Marital Status | | + + + | Congregation Affiliation | 1038 | + + + | Race | Unknown | + + + | Ethnic Group | Unknown | + + + Author + + + | Author | [facility] | | | and [place] | + + + | Organization | [facility] | | | and [place] | + + + | Address | Unknown | + + + | Phone | Unavailable | + + + Support + + + + + | Name | Relationship | Address | Phone | + + + + + | Aileen Nelson | ECON | [address] | | | | | [place] | | | | | [address] | | + + + + + Care Team Providers + +------+ + | Care Development Team Lead Name | Role | Phone | + [...] + + | 06/19/ | Hospital | [facility] | Kolby Sheffield, | Ischemic | | 2018 - | Encounter | MED CTR SURGICAL | [address] | cerebrovascular | | | | [address] | [place], [place] | accident (CVA) | | 06/22/ | | [place] [address] | [address] | ([facility]); Stage 3 | | 2018 | | [phone] | | chronic kidney | | | | | | disease ([facility]); IDDM | | | | | | (insulin dependent | | | | | | diabetes mellitus) | | | | | | ([facility]); HIV (human | | | | | | immunodeficiency | | | | | | virus infection) | | | | | | ([facility]); Essential | | | | | | [...] has been on warfarin. Patient presented to [place]. Patient was out of timeframe fo r [...] narrowed bilaterally. Jana huber was transferred to [facility] for further evaluation. For details please refer to the H&P and daily progress notes and consults. Patient's acute hospital medical problems were briefly addressed as follow: 1. Ischemic cerebrovascular accident (CVA) : His presentation includes subtherapeutic INR x 1.5 months. I have stopped his Warfarin and started on NOAC instead. Carotid Ultrasound with out significant stenosis, which is in contrast to [facility]' ultrasound. He has pacer so n ot [...] None CONSULTATIONS: In patient Rehab, PT, OT, HOME EXTENSION AGENT IMAGING PERFORMED: Ct Head Wo Contrast Result [...] Itching MEDICATIONS ON DISCHARGE: Current Facility-Administered Medications: elhszshp-owvkwndqylnm-fhysEQUgry (TRIUMEQ) 600-50-300 mg per tablet 1 tablet [...] + + +---------+ + + | Saw Rousseau 450 | Take 900 mg by mouth [...] | | | | | units if [id number] | | | | | | | [...] acutely. 3: 54 PM PDTRolph, Ghanshyam Bull [facility] - 06/21/2018 3:44 PM PDTFormatting of this [...] current medication bottles X Pharmacy list names: [facility] X [employer] insurance reported information X [...] Medication added: Medication: Prior to Admission Sig: Kvyfhhkp-fzafjwswtvpq-kmkhELQrlu 600-50-300 mg Take one tablet by mouth [...] Take two tablets by mouth daily Saw Rousseau 450 mg Take 900 mg by mouth [...] own beer and whiskey) Other: Warfarin info [facility] antocoag clinic Goal: 2.0-3.0 INR 1.8 on 06/08 Dose: 5 mg on Wednesday and Wednesday and 2.5 mg all other days Best possible HARVESTING MANAGER medication list after pharmacy review: PT REPORTED TAKING NOT TAKING Medication Sig Last Dose Dispense Doc. Provider xtugptfz-tdqzjsbtfqqe-ofzkVSKicf (TRIUMEQ) 600-50-300 mg per tablet Take 1 [...] mouth Daily. Taking Jt Haider MD Saw Rousseau 450 MG CAPS Take 900 mg by mouth 2 times daily. Taking Historical MD Meliza sertraline (ZOLOFT) 50 mg tablet Take 75 mg by mouth Daily. Taking Historical ProviderNeetu spironolactone (ALDACTONE) 50 mg tablet Take 50 mg by mouth Daily. Taking Historical Courtney tena MD warfarin (COUMADIN) 5 mg tablet Take 5 mg by mouth Twice a week. On Wednesday and Wednesday Guerrero Haider MD warfarin (COUMADIN) 5 mg tablet Take 2.5 mg by mouth Five times a week. Every day except M and Wednesday Taking Steve Haider MD Medication review performed and electronically signed by Roxy Escobedo, Greeter 15:03 Electronically signed by: Ghanshyam Newman RPH [...] none Drug Interactions: Acetaminophen NON-valvular AFIB patients: JBF7MG5-FJUy score (max 9): 6 ?CHF, ?HTN, ?Age > 75 (2), ?DM, ? prior CVA,VTE (2), ?KY,PAD, ?Age 64-74, ?Female Recent Labs Lab 06/21/18 [...] Hct, INR 4. Warfarin education received NO. HARVESTING MANAGER 5. Pharmacist to follow daily Warfarin Dosing Nomogram Per P&T-approved Electronically signed by: Alberto Isaac PharmD 06/21/2018 11:20 Ying Lopez MD - 06/21/2018 10:57 AM P DT HOSPITALIST PROGRESS NOTE Patient: Sarthak Nelson : 1950: Age: 67 y.o. MedRec: [id number] PCP: Jericho Cao MD Admission date: 06/19/2018 [...] has been on warfarin. Patient presented to [place]. Patient was out of timeframe fo r [...] narrowed bilaterally. Jana huber was transferred to [facility] for further evaluation. MEDICATIONS: ceatefmg-ggooeuzgdpgv-fgpiCHKyrd 1 tablet Oral Nightly [START ON 06/22/2018] [...] ECGs available Confirmed by DAVID BARAHONA, NILAY ([id number]) on 06/20/2018 6:38:00 AM POC Glucose Collection [...] E' Septal Velocity 4 cm/s MV Deceleration [place] 765.46 cm/s2 MV Deceleration Time 173.25 msec [...] significant stenosis, which is in contrast to [facility]'s ultrasound. He has pacer so not amenable [...] Home regimen: TBD after med-rec Managed by: [facility] anticoagulation clinic previously adjusting coumadin for chronic Afib per Dr Anmol Isaac Sensitizers: none Drug Interactions: Acetaminophen, allopurinol NON-valvular AFIB patients: OBZ0UO4-ZYUw score (max 9): 6 ?CHF, ?HTN, ?Age > 75 (2), ?DM, ? prior CVA,VTE (2), ?KY,PAD, ?Age 64-74, ?Female Recent Labs Lab 06/21/18 [...] am: INR 4. Warfarin education received NO. HARVESTING MANAGER 5. Pharmacist to follow daily Warfarin Dosing [...] none Drug Interactions: Acetaminophen NON-valvular AFIB patients: SZF5LS6-CKEh score (max 9): 6 ?CHF, ?HTN, ?Age > 75 (2), ?DM, ? prior CVA,VTE (2), ?KY,PAD, ?Age 64-74, ?Female Recent Labs Lab 06/20/18 [...] Hct, INR 4. Warfarin education received NO. HARVESTING MANAGER 5. Pharmacist to follow daily Warfarin Dosing Nomogram Per P&T-approved Electronically signed by: Alberto Isaac PharmD 06/20/2018 11:41 Liane Sanders MD - 06/20/2018 9:40 AM PDT [place], [place] HOSPITALIST PROGRESS NOTE Patient: Sarthak Nelson : 1950: Age: 67 y.o. MedRec: [id number] Admission date: 06/19/2018 Hospital day # : [...] discuss with neurologist. On dysphagia diet per HOME EXTENSION AGENT. Subtherapeutic INR since mid 04/2018 - end 05/2018despite [facility] antico clinic adjusting coumad in for chronic afib. Per [facility] care everywhere PMHX 1. 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 -pacer is not amenable with MRI -TTE with bubble study--negative -Telemetry / trop neg / PT/OT/HOME EXTENSION AGENT Neuro checks -no med rec tech, I reviewed the medications in his [employer] grocery bag and recent med list faxed from [place], documented above. ALL diuretics/antihypertensives have been held. IDDM Cont lantus lispro - lower than home dose HTN Continue imdur HIV -Cont Abacavir,dolutegravir,lamivudi - multiple bottles Are in his [employer] bag Chronic systolic-diastolic heart failure/ VT / chronic A fib / pacer Patient reports holding lasix due to kidney injury, listed on [facility] information -Hold metoprolol for now given permissive HTN F/U [facility] CKD 3 Cr 1.77 -Cr 2.[address] [facility] RACHELLE/Morbid obesity bmi 47.9 CPAP Chronic leg edema, VENOUS STASIS ULCER Wound care ordered F/U [facility] wound clinic FEN: thickened liquid PPX: Warfarin - SUBTHERAPEUTIC SINCE 05/02/18 (06/09/18 NOTE per [facility] care everywhere) Disp: PT/OT/HOME EXTENSION AGENT ordered Plan discussed with patient. Subjective by date Unhappy w/ thickened liquids, chronic pain Treatment log Imdur, stop asa. Continue lipitor/coumadin Exam On room air then tolerating home CPAP General NAD A and O obese Cardiac S1 S2 irregular Lung CTAB Abdominal soft nt nd + BS obese Neuro dysarthric, drooling left, poor tongue protrusion to left, weaker shoulder shrug left 4/5 left director communications, 3/5 left elbow flexion, 3/5 left shoulder flexion 5/5 right director communications/elbow flexion/shoulder flexion 4/5 left lower extremity 4+/5 [...] ECGs available Confirmed by NILAY HERNANDEZ MD ([id number]) on 06/20/2018 6:38:00 AM POC Glucose Collection [...] 12:08 PM Liane Isaac MD 06/20/2018 13:16 [facility] Portions of this chart may have been created with [employer] voice recognition software. Occasi onal wrong-word or [...] + | [facility] | [address] | [place] | [phone] | | [facility] | | [address] | | | - LABORATORY | | [...] ST. | [address] | [place] | [phone] | | [facility] | | [address] | | | - LABORATORY | | [...] [address] | [place] | [phone] | | [facility] | | [address] | | | - LABORATORY | | [...] mL/min/1.73m2 | [facility] | | | [place] | RATE,ESTIMATED | | MEDICAL | | | | mL/min/1.59d3Raoa than | | CENTER - | | [...] + | [facility] | [address] | [place] | [phone] | | [facility] | | [address] | | | - LABORATORY | | [...] + | [facility] | [address] | [place] | [phone] | | [facility] | | [address] | | | - LABORATORY | | [...] [address] | [place] | [phone] | | [facility] | | [address] | | | - LABORATORY | | [...] [address] | [place] | [phone] | | [facility] | | [address] | | | - LABORATORY | | [...] [address] | [place] | [phone] | | [facility] | | [address] | | | - LABORATORY | | [...] [address] | [place] | [phone] | | [facility] | | [address] | | | - LABORATORY | | [...] ST. | [address] | [place] | [phone] | | [facility] | | [address] | | | - LABORATORY | | [...] 1.62 (H) | 0.60 - 1.30 | [facility] | | | | | mg/dL | [facility] | | | | | | MEDICAL | | | | | | CENTER - | | | | | | LABORATORY | | + + + + + + | eGFR if not | 43 (L)Comment: | >=60 | [facility] | | | | GLOMERULAR FILTRATION | mL/min/1.73m2 | [facility] | | | [place] | RATE,ESTIMATED | | MEDICAL | | | | mL/min/1.16n9Samk than | | CENTER - | | [...] + | [facility] | [address] | [place] | [phone] | | [facility] | | [address] | | | - LABORATORY | | [...] | | | | | | [employer] | | | | | [...] + | [facility] | [address] | [place] | [phone] | | [facility] | | [address] | | | - LABORATORY | | [...] + | [facility] | [address] | [place] | [phone] | | [facility] | | [address] | | | - LABORATORY | | [...] [address] | [place] | [phone] | | [facility] | | [address] | | | - LABORATORY | | [...] | | |Dictated and Signed by: Jorge Cueto MD | | Electronically signed: 06/20/2018 3:49 [...] | | | | | | n [place] | | | | | + +--------+ [...] 330 | | | YUMIKO Patient Number [id number] Date of Study | | | 06/20/2018 Visit Number [id number] Accession | | | [id number] Referring Physician DWIGHT JARRETT Number | | | Date of 1950 Fish Cleaner | | | GREGG CHAHAL Age 67 year(s) | | | Interpreting WANDA HOFFMANN MD | | | Hopper Feeder SHUN SALGUERO | | | | | | WANDA Gender Male Nurse | | | Stress Insurance Auditor | | | Procedure Type of Study [...] 1.59 cm PW Diastolic: 1.77 cm EF Oqjiiycds70% EF Calculated: 65% | | | Miscellaneous [...] Diastolic: 1.77 cm | | | EF Zimggmhth23% | | | EF Calculated: 65% | [...] Number 330 | | YUMIKO Patient Number [id number] Date of Study 06/20/2018 Visit | | Number [id number] Referring Physician DWIGHT | | KOLBY Number Date of 1950 Fish Cleaner GREGG CHAHAL | | Age 67 year(s) Interpreting WANDA HOFFMANN MD | | Hopper Feeder SHUN SALGUERO | | WANDA Gender Male [...] PW Diastolic: 1.77 cm EF | | Oueogsqir25% EF Calculated: 65% Miscellaneous Aorta Aortic Root: [...] PW Diastolic: 1.77 cm | | EF Aoqaqcmgw90% | | EF Calculated: 65% | | [...] [address] | [place] | [phone] | | [facility] | | [address] | | | - LABORATORY | | [...] | | | | | | [employer] | | | | | [...] [address] | [place] | [phone] | | [facility] | | [address] | | | - LABORATORY | | [...] [address] | [place] | [phone] | | [facility] | | [address] | | | - LABORATORY | | [...] | | | | NILAY HERNANDEZ MD ([id number]) | | | | | | on [...] | | | | | | [employer] | | | | | [...] ST. | [address] | [place], [place] | [phone] | | [facility] | | [address] | | | - LABORATORY | | [...] | | Ratio | | | [facility] | [...] + | [facility] | [address] | [place] | [phone] | | [facility] | | [address] | | | - LABORATORY | | [...] [address] | [place] | [phone] | | [facility] | | [address] | | | - LABORATORY | | [...] + | [facility] | [address] | [place] | [phone] | | [facility] | | [address] | | | - LABORATORY | | [...] ST. | [address] | [place] | [phone] | | [facility] | | [address] | | | - LABORATORY | | [...] + | [facility] | [address] | [place] | [phone] | | [facility] | | [address] | | | - LABORATORY | | [...] + | [facility] | [address] | [place] | [phone] | | [facility] | | [address] | | | - LABORATORY | | [...] | mL/min/1.73m2 | [facility] | | | [place] | RATE,ESTIMATED | | MEDICAL | | | | mL/min/1.81x4Veop than | | CENTER - | | [...] [address] | [place] | [phone] | | [facility] | | [address] | | | - LABORATORY | | [...] [address] | [place] | [phone] | | [facility] | | [address] | | | - LABORATORY | | [...] | | | | | | [employer] | | | | | [...] [address] | [place] | [phone] | | [facility] | | [address] | | | - LABORATORY | | [...] [address] | [place] | [phone] | | [facility] | | [address] | | | - LABORATORY | | [...] | | GLOMERULAR FILTRATION | mL/min/1.73m2 | [facility] | | | [place] | RATE,ESTIMATED | | MEDICAL | | | | mL/min/1.19a4Ybgp than | | CENTER - | | [...] [address] | [place] | [phone] | | [facility] | | [address] | | | - LABORATORY | | [...] [address] | [place] | [phone] | | [facility] | | [address] | | | - LABORATORY | | | | + + + + + documented in this encounter Visit Diagnoses + + | Diagnosis | + + | Ischemic cerebrovascular accident (CVA) (HCC) | + + | Stage 3 chronic kidney disease (HCC) | + + | IDDM (insulin dependent diabetes mellitus) ([facility]) Type II or unspecified type diabetes | | mellitus without mention of complication, not stated as uncontrolled | + + | HIV (human immunodeficiency virus infection) ([facility]) Asymptomatic human | | immunodeficiency virus (HIV) [...] | 1 tablet | | | | ehoawfwh-jerkkzgztxur-tyilVPAigi | | 18 10:57 | | | [...] | | | | | | | (mftxkivq-kvjhqbgcjhyl-tsnnEFOtie | | | | | | | [...] | | | | | NPO, Daytime 1341-4456 Use NIGHT | | | | | | | DOSE for doses scheduled: | | | | | | | HS, 3AM, Nighttime 0229-9819, | | | | | | + [...]
--- OUTSIDE RECORDS SUMMARY | ~2019-10-02 | XMS | Encounter Summary ---
Demographics + + + | Address | [address] | | | [place] [address] | + + + | Home Phone | | + + + | Preferred Language | Unknown | + + + | Marital Status | | + + + | Tenriism Affiliation | 1038 | + + + | Race | Unknown | + + + | Ethnic Group | Unknown | + + + Author + + + | Author | [facility] | | | and [place] | + + + | Organization | [facility] | | | and [place] | + + + | Address | Unknown | + + + | Phone | Unavailable | + + + Support + + + + + | Name | Relationship | Address | Phone | + + + + + | Aileen Nelson | ECON | [address] | | | | | [place] | | | | | [address] | | + + + + + Care Team Providers + +------+ + | Care Roller Inspector And Mender Name | Role | Phone | + [...] [place] | | | | | [place], [place] | [place] [address] | | | | | [address] | [phone] | | | | | [phone] | | | +--------+ + + + [...] and color flow Doppler was perfomed at [facility]. | | | Study: This was a [...] TR Vmax: 2.40 m/s | | | Fruit Harvest Machine Operator: Authenticated by: MARISOL DUBOSE MD Report Date/Time: | | | -- [id number]:59:3 | | + + + + + [...] flow Doppler was perfomed | | at [facility].Study: This was a technically difficult study with [...] (A-L): 56.04 ml/m2LAAs A2C: | | 38.73 nj6FOHNM A-L A2C: 174.50 mlLAESV MOD A2C: 167.16 mlLALs A2C: 7.29 cmLAAs | | A4C: 30.93 yy3SETMF A-L A4C: 123.07 mlLAESV MOD A4C: 117.61 mlLALs A4C: 6.59 | | cmRAAs: 29.75 xd6FGYBW A-L: 106.29 mlRAESV MOD: 104.36 mlRALs: 7.07 cmTAPSE: | | 1.63 cmAV Env.Ti: 293.94 msAV maxP.81 mmHgAV meanP.90 mmHgAV Vmax: 0.97 | | m/Merrick Vmean: 0.64 m/Merrick VTI: 18.82 cmAVA Vmax: 3.41 cm2AVA (VTI): 3.65 hy4ITVH | | Vmax: 0.00 cm2/m2AVAI (VTI): 0.00 cm2/m2LVOT Env.Ti: 310.90 msLVOT maxP.86 | | mmHgLVOT meanP.99 mmHgLVSI Dopp: 24.99 ml/m2LVSV Dopp: 68.73 mlLVOT Vmax: | | 0.68 m/sLVOT Vmean: 0.45 m/sLVOT VTI: 14.06 cmMV E Rodney: 1.16 m/sRAP: 10 mmHgRV | | S': 0.07 m/sRVSP: 33.16 mmHgTR maxP.16 mmHgTR Vmax: 2.40 m/s | | Fruit Harvest Machine Operator:Authenticated by: Wilbur GROSS Date/Time: -[id number]:59:3 | | IMPRESSION: 1. Overall left ventricular [...] |TR Vmax: 2.40 m/s | | | |Fruit Harvest Machine Operator: | |Authenticated by: MARISOL DUBOSE MD | |Report Date/Time: -- 69_[id number]_05:59:3 | | | |IMPRESSION: | |1. Overall [...]
--- OUTSIDE RECORDS SUMMARY | ~2019-10-02 | XMS | Encounter Summary ---
Demographics + + + | Address | [address] [place] [address] | | | [place] [address] | + + + | Home Phone | | + + + | Preferred Language | Unknown | + + + | Marital Status | Single | + + + | Episcopal Affiliation | PEN | + + + | Race | White | + + + | Ethnic Group | Not or | + + + Author + + + | Author | [facility] | + + + | Organization | [facility] | + + + | Address | Unknown | + + + | Phone | Unavailable | + + + Support + + + + + | Name | Relationship | Address | Phone | + + + + + | Aileen Nelson | ECON | [address] | | | | | [place] [address] | | + + + + + Care Team Providers + +------+ + | Care Trail Construction Worker Name | Role | Phone | [...] | | | | Procedures | on [place] | [address] | | | | | PET SKULL | V A MEDICAL | [id number] | | | | | BASE TO | CENTER | [facility] | | | | | [facility] | [address] | [place], | | | | | | [place] | [place] [address] | | | | | | [address] | Phone: | | | | | | [place], | [phone] | | | | | | [place] [address] | Fax: | | | | | | Phone: | [phone] | | | | | | [phone] | | | | | | | Fax: | | | | | | | [phone] | | +--------+--------+ + + + + Encounter Details +--------+ + + + + | Date | Type | Department | Care Team | Description | +--------+ + + + + | 10/22/ | Hospital | Radiation Oncology | | | | 2011 | Encounter | at [facility] [address] | | | | | | Maria Dolores Torres | | | | | | Frances/[id number] [facility] | | | | | | [facility], | | | | | | [place] [address] | | | | | | [phone] | | | +--------+ + + + [...] 06/21/2012 2:07 PM PDT | + + ORDERS YOLI (10/14/2011 12:00 AM PST) + + + [...]
--- OUTSIDE RECORDS SUMMARY | ~2019-10-02 | XMS | Encounter Summary ---
Demographics + + + | Address | [address] [place] [address] | | | [place] [address] | + + + | Home Phone | | + + + | Preferred Language | Unknown | + + + | Marital Status | Single | + + + | Adventism Affiliation | PEN | + + + [...] | | | | | [place] [address] | | + + + + + Care Team Providers + +------+ + | Care Pastry Decorator Name | Role | Phone | + +------+ + | Romain Harrington MD | PCP | | + +------+ + Encounter Details +--------+ + + + + | Date | Type | Department | Care Team | Description | +--------+ + + + + | 05/20/ | Outside | Diagnostic | Zoila Momin, | | | 2011 | Referral | Radiology at [facility] | MD DIONNE Oates | | | | Order | [address] [facility] | [facility] [address] | | | | | [address] Mailcode: | [address] | | | | | [address] Physician's | [facility], | | | | | [facility] | [place] [address] | | | | | [place] [address] | [phone] | | | | | [phone] | | | +--------+ + + + [...]
--- OUTSIDE RECORDS SUMMARY | ~2019-10-02 | XMS | Encounter Summary ---
Demographics + + + | Address | [address] [place] [address] | | | [place] [address] | + + + | Home Phone | | + + + | Preferred Language | Unknown | + + + | Marital Status | Single | + + + | Mu-Ism Affiliation | PEN | + + + | Race | White | + + + | Ethnic Group | Not or | + + + Author + + + | Author | [facility] | + + + | Organization | [facility] | + + + | Address | Unknown | + + + | Phone | Unavailable | + + + Support + + + + + | Name | Relationship | Address | Phone | + + + + + | Aileen Nelson | ECON | [address] | | | | | [place] [address] | | + + + + + Care Team Providers + +------+ + | Care Timber Packer Name | Role | Phone | + +------+ + | Romain Harrington MD | PCP | | + +------+ + Encounter Details +--------+ + + + + | Date | Type | Department | Care Team | Description | +--------+ + + + + | 10/16/ | Outside | Diagnostic Imaging | Surya Cobb, | | | 2009 | Referral | Services at [facility] | [place] [facility] | | | | Order | [address] [facility] [id number] | | | | | Nayely An Mailcode: | [address] | | | | | [address] [facility] | [place] [address] | | | | | [place], [place] | [phone] | | | | | [address] | | | | | | [phone] | | | +--------+ + + + [...]
--- OUTSIDE RECORDS SUMMARY | ~2019-10-02 | XMS | Encounter Summary ---
Demographics + + + | Address | [address] | | | [place] [address] | + + + | Home Phone | | + + + | Preferred Language | Unknown | + + + | Marital Status | | + + + | Jew Affiliation | 1038 | + + + | Race | Unknown | + + + | Ethnic Group | Unknown | + + + Author + + + | Author | [facility] | | | and [place] | + + + | Organization | [facility] | | | and [place] | + + + | Address | Unknown | + + + | Phone | Unavailable | + + + Support + + + + + | Name | Relationship | Address | Phone | + + + + + | Aileen Nelson | ECON | [address] | | | | | [place] | | | | | [address] | | + + + + + Care Team Providers + +------+ + | Care Retail Agent Name | Role | Phone | + +------+ + | Jericho Cao MD | PCP | | + +------+ + Encounter Details +--------+ + + + + | Date | Type | Department | Care Team | Description | +--------+ + + + + | 07/01/ | Hospital | [facility] | Asaf Parra, | | | 2018 | Encounter | MED CTR THERAPY OT | OT [place], | | | | | ACUTE [address] | [place] | | | | | [place] | | | | | | [address] | | | | | | [phone] | | | +--------+ + + + [...] + + documented as of this encounter Medications at Time of Discharge [...] + + +---------+ + + | Saw Hitchcock 450 | Take 900 mg by mouth | | 0 | | | | MG CAPS | 2 times daily. | | | | | + + + +---------+ + + documented as of this encounter Plan of Treatment Not on filedocumented as of this encounter Visit Diagnoses Not on filedocumented in this encounter"
--- OUTSIDE RECORDS SUMMARY | ~2019-10-02 | XMS | Encounter Summary ---
Demographics + + + | Address | [address] [place] [address] | | | [place] [address] | + + + | Home Phone [...] | | | | | [place] [address] | | + + + + + Care Team Providers + +------+ + | Care Spray Worker Name | Role | Phone | [...] | | | | Procedures | on [place] | [address] | | | | | PET SKULL | V A MEDICAL | [id number] | | | | | BASE TO | CENTER | [facility] | | | | | [place] | [address] | [place], | | | | | | [place] | [place] [address] | | | | | | [address] | Phone: | | | | | | [place], | [phone] | | | | | | [place] [address] | Fax: | | | | | | Phone: | [phone] | | | | | | [phone] | | | | | | | Fax: | | | | | | | [phone] | | +--------+--------+ + + + + Encounter Details +--------+ + + + + | Date | Type | Department | Care Team | Description | +--------+ + + + + | 10/15/ | Outside | Nuclear Medicine | Deshaun Warren, | | | 2011 | Referral | at [facility] [address] | MD DINONE [address]ates | | | | Order | [facility] | [facility] [address] | | | | | Mailcode: [address] | [place] | | | | | [facility] | [address] | | | | | [place], [place] | [place] [address] | | | | | [address] | [phone] | | | | | [phone] | | | +--------+ + + + [...]
--- OUTSIDE RECORDS SUMMARY | ~2019-10-02 | XMS | Encounter Summary ---
Demographics + + + | Address | [address] [place] [address] | | | [place] [address] | + + + | Home Phone [...] Author + + + | Author | [facility] | + + + | Organization | [facility] | + + + | Address | Unknown | + + + | Phone | Unavailable | + + + Support + + + + + | Name | Relationship | Address | Phone | + + + + + | Aileen Nelson | ECON | [address] | | | | | [place] [address] | | + + + + + Care Team Providers + +------+ + | Care Hazardous Materials Driver Name | Role | Phone | + [...] [place] | | | | | [address] | [address] | | | | | | [phone] | | | | | | | [...] Edmond Estes MD - 05/10/2015 6:00 PM [facility] PROGRESS NOTE [address] [facility] [place] [address] SARTHAK NELSON DATE OF SERVICE: 05/10/2015 TIME [...] here to the [place] or to the [place] [facility]. GIANCARLO/Sylvie /[id number] Electronically Signed 05/22/15 1228 MD MANOJ Cantu EDWARD E [id number] : 50 [id number] ADMIT DATE: 05/04/15 DISCHARGE DATE: 05/10/15 Edmond Wood MD - 05/09/2015 9:54 PM [facility] PROGRESS NOTE [address] [place] [address] SARTHAK NELSON HISTORY UPDATE: Mr. Nelson was [...] has been in discussion with [place]. I do not see any need for [...] infect a sterile fluid collection. MM/SARTHAK Sánchez [id number] : 50 [id number] ADMIT DATE: 05/04/15 DISCHARGE DATE: /[id number] Electronically Signed 05/10/15 0814 MD MANOJ Canut EDWARD E [id number] : 50 [id number] ADMIT DATE: 05/04/15 DISCHARGE DATE: Bruno Ramirez MD - 05/09/2015 4:01 PM [facility] PROGRESS NOTE [address] [place] [address] SARTHAK NELSON DATE OF SERVICE: 05/09/2015 ASSESSMENT [...] get closer to within normal limits. ILL/MedQ /[id number] Electronically Signed 05/10/15 0715 MD MANOJ Abbott EDWARD E [id number] : 50 [id number] ADMIT DATE: 05/04/15 DISCHARGE DATE: Bruno Ramirez MD - 05/09/2015 3:54 PM [facility] PROG RESS NOTE [address] [place] [address] SARTHAK NELSON DATE OF SERVICE: 05/09/2015 24-HOUR [...] was working because once the SARTHAK NELSON [id number] : 50 [id number] ADMIT DATE: 05/04/15 DISCHARGE DATE: ceftriaxone was [...] recent urinalysis, [place] the [place], and this was of 100,000 colony-forming units. [employer] does cover for this. In addition, in speaking with Alaina Malik, the infectious disease lead clinical at the [place], she stated that this will also cover [...] of a dime with minimal SARTHAK NELSON [id number] : 50 [id number] ADMIT DATE: 05/04/15 DISCHARGE DATE: anguinous seepage. Will monitor. 9. Deep venous thrombosis prophylaxis. On warfarin currently. ILL/MedQ /[id number] Electronically Signed 05/10/15 0715 MD MANOJ Abbott EDWARD E [id number] : 50 [id number] ADMIT DATE: 05/04/15 DISCHARGE DATE: Bruno Ramirez MD - 05/08/2015 6:59 PM [facility] PROG RESS NOTE [address] [place] [address] SARTHAK NELSON DATE OF SERVICE: 05/08/2015 24-HOUR [...] that was isolated [place]/18/2015 [place] the [place] from a urine culture growing more than 100,000 colony-forming units. In addition, speaking to Alaina Malik, who is the [place] lead clinical there, since the patient's infectious disease specialist, Dr. Cait Peres, is on vacation, stated to also cover for gonorrhea that could be circulating in the community. Even though I stated the patient has not had SARTHAK NELSON [id number] : 50 [id number] ADMIT DATE: 05/04/15 DISCHARGE DATE: sexual intercourse [...] 3. Baseline creatinine [place] 1.9 as per [place]. Currently his creatinine is 1.7, we [...] today, the infectious disease clinician at the [place] (phone number is [phone]). Prior to this, also tried calling Jennifer, another HIV front desk representative at the [place], at [phone], and left a message. 3. Also called Martin Stokes, of infectious diseases at [facility], at [phone]. The conversation initially was started with Martin Stokes, who [facility], specifically, [facility]aina Malik, who in turn contacted me. ILL/MedQ /[id number] Electronically Signed 05/09/15 0700 MD MANOJ Abbott EDWARD E [id number] : 50 [id number] ADMIT DATE: 05/04/15 DISCHARGE DATE: Bruno Ramirez MD - 05/07/2015 4:09 PM [facility] PROG RESS NOTE [address] [place] [address] SARTHAK NELSON DATE OF SERVICE: 05/07/2015 24-HOUR [...] If not, then we will SARTHAK NELSON [id number] : 50 [id number] ADMIT DATE: 05/04/15 DISCHARGE DATE: consider getting [...] with oral antibiotic before considering discharge. ILL/MedQ /[id number] Electronically Signed 05/08/15 1058 MD MANOJ Abbott EDWARD E [id number] : 50 [id number] ADMIT DATE: 05/04/15 DISCHARGE DATE: Bruno Ramirez MD - 05/07/2015 3:21 PM [facility] PROG RESS NOTE [address] [place] [address] NELSONSARTHAK TEMPLE CONTINUATION: Chronic kidney disease stage III. Baseline creatinine is 1.9. This is from [place] of [place]. ILL/MedQ /[id number] Electronically Signed 05/08/15 1058 Bruno Gray MD SARTHAK NELSON [id number] : 50 [id number] ADMIT DATE: 05/04/15 DISCHARGE DATE: Abad Barraza MD - 05/07/2015 1:44 PM [facility] PROGRESS NOTE [address] [place] [address] NELSONCHERYLLUIS Morales CURRENT PROBLEM: Right epididymitis. HISTORY [...] in [facility] or at the [facility] Urology Department-where he is an established patient. We will follow him on a p.r.n. basis during the remainder his hospitalization. GAG/MedQ /[id number] Electronically Signed 05/23/15 0728 MD MANOJ Gomez EDWARD E [id number] : 50 [id number] ADMIT DATE: 05/04/15 DISCHARGE DATE: 05/10/15 Bruno Ramirez MD - 05/06/2015 11:19 AM [facility] PROGRESS NOTE [address] [place] [address] SARTHAK NELSON DATE OF SERVICE: 05/06/2015 24-HOUR [...] morning before considering discharge. ILL/MedQ SARTHAK NELSON [id number] : 50 [id number] ADMIT DATE: 05/04/15 DISCHARGE DATE: /[id number] Electronically Signed 05/07/15 0700 MD MANOJ Abbott EDWARD E [id number] : 50 [id number] ADMIT DATE: 05/04/15 [facility] 05/05/2015 9:07 PM [facility] PROGRESS NOTE [address] [place] [address] SARTHAK NELSON DATE OF SERVICE: 05/05/2015 BRIEF HISTORY: A 64-year-old gentleman with multiple comorbidities who [place]. He has HIV and reports [...] Disposition: Likely home tomorrow. DC/MedQ SARTHAK NELSON [id number] : 50 [id number] ADMIT DATE: 05/04/15 DISCHARGE DATE: /[id number] Electronically Signed 05/06/15 1037 MD MANOJ Vu EDWARD E [id number] : 50 [id number] ADMIT DATE: 05/04/15 DISCHARGE DATE: [facility] Edmond franco MD - 05/05/2015 1:12 PM [facility] PROGRESS NOTE [address] [place] [address] SARTHAK NELSON DATE OF SERVICE: 05/05/2015 EVENTS [...] Urology can be contacted to re-consult. MM/MedLoulou /[id number] Electronically Signed 05/10/15 0813 MD MANOJ Cantu EDWARD E [id number] : 50 [id number] ADMIT DATE: 05/04/15 DISCHARGE DATE: [facility] Edmond gray MD - 05/05/2015 10:45 AM [facility] CONSULTATI ON [address] [place] [place] [address] SARTHAK NELSON DATE OF CONSULTATION: 05/04/2015 REQUESTING [...] scrotum is enlarged bilaterally, and SARTHAK NELSON [id number] : 50 [id number] ADMIT DATE: 05/04/15 on the left side [...] of this patient. Urology will follow. GIANCARLO/MedLoulou /[id number] Electronically Signed 05/10/15 0813 MD MANOJ CantuSARTHAK [id number] : 50 [id number] ADMIT DATE: 05/04/15 Ghanshyam Kelly MD - 05/04/2015 6:48 PM [facility] PROGRESS NOTE [address] [place] [address] NELSON,SARTHAK Morales BRIEF HISTORY: A 64-year-old gentleman [...] 8. Disposition: Continue inpatient care. SARTHAK NELSON [id number] : 50 [id number] ADMIT DATE: 05/04/15 DISCHARGE DATE: Damián /[id number] Electronically Signed 05/06/15 1036 MD MANOJ Vu EDWARD E [id number] : 50 [id number] ADMIT DATE: 05/04/15 DISCHARGE DATE: . [facility] Plan of Treatment Not on filedocumented as of this encounter Visit Diagnoses Not on filedocumented in this encounter"
--- OUTSIDE RECORDS SUMMARY | ~2019-10-02 | XMS | Encounter Summary ---
Demographics + + + | Address | [address] | | | [place] [address] | + + + | Home Phone | | + + + | Preferred Language | Unknown | + + + | Marital Status | | + + + | Cheondoism Affiliation | [phone] | + + + | Race | Unknown | + + + | Ethnic Group | Unknown | + + + Author + + + | Author | [facility] | | | and [place] | + + + | Organization | [facility] | | | and [place] | + + + | Address | Unknown | + + + | Phone | Unavailable | + + + Support + + + + + | Name | Relationship | Address | Phone | + + + + + | Aileen Nelson | ECON | [address] | | | | | [place] | | | | | [address] | | + + + + + Care Team Providers + +------+ + | Care Crusher Machine Operator Name | Role | Phone [...] + + | 06/19/ | Hospital | [facility] | Kolby Sheffield, | Ischemic | | 2018 - | Encounter | MED CTR SURG[facility] | [address] | cerebrovascular | | | | [address] | [place], [place] | accident (CVA) | | 06/22/ | | [place] [address] | [id number] | ([facility]); Stage 3 | | 2018 | | [phone] | | chronic kidney | | | | | | disease ([facility]); IDDM | | | | | | (insulin dependent | | | | | | diabetes mellitus) | | | | | | ([facility]); HIV (human | | | | | | immunodeficiency | | | | | | virus infection) | | | | | | ([facility]); Essential | | | | | | [...] has been on warfarin. Patient presented to [place]. Patient was out of timeframe fo r TPA at that time. EKG was consistent with atrial fibrillation. UDS was negative. No aruelio kocytosis. Creatinine 1.85. A CTA head and neck was performed showing no acute pathology. 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 At least 90% stenosis of the left proximal ICA and 50% stenosi s of the right proximal ICA. Cavernous carotids are at least 50% narrowed bilaterally. Jana huber was transferred to [place] for further evaluation. For details please refer to the H&P and daily progress notes and consults. Patient's acute hospital medical problems were briefly addressed as follow: 1. Ischemic cerebrovascular accident (CVA) : His presentation includes subtherapeutic INR x 1.5 months. I have stopped his Warfarin and started on NOAC instead. Carotid Ultrasound with out significant stenosis, which is in contrast to [facility]' ultrasound. He has pacer so n [...] None CONSULTATIONS: In patient Rehab, PT, OT, PLATE STACKER HAND IMAGING PERFORMED: Ct Head Wo Contrast Result [...] Itching MEDICATIONS ON DISCHARGE: Current Facility-Administered Medications: hbndpxyi-tbczcfjzvmcd-dthpHDPwjg (TRIUMEQ) 600-50-300 mg per tablet 1 tablet [...] + + +---------+ + + | Saw [place] 450 | Take 900 mg by mouth [...] | | | | | units if [id number] | | | | | | | [...] 54 PM PDTRolph, Ghanshyam Bull [facility] - 06/21/2018 3:44 PM PDTFormatting of [...] Medication added: Medication: Prior to Admission Sig: Zgsttbvb-dbodwynhinwb-uocqEBGbpr 600-50-300 mg Take one tablet by mouth [...] Take two tablets by mouth daily Saw [place] 450 mg Take 900 mg by mouth [...] 2.5 mg all other days Best possible DIRECTOR BIOINFORMATICS medication list after pharmacy review: PT REPORTED TAKING NOT TAKING Medication Sig Last Dose Dispense Doc. Provider wutprayt-xzbclpnzqkie-qecdJVNoxc (TRIUMEQ) 600-50-300 mg per tablet Take 1 [...] Take 30 mg by mouth Daily. Taking Historjoes al MD Meliza lisinopril (PRINIVIL, ZESTRIL) 5 [...] mouth Daily. Taking Jt Haider MD Saw [place] 450 MG CAPS Take 900 mg by [...] performed and electronically signed by Roxy Escobedo, Body Artist 15:03 Electronically signed by: Ghanshyam Newman RPH [...] none Drug Interactions: Acetaminophen NON-valvular AFIB patients: PPP8TG4-CPFq score (max 9): 6 ?CHF, ?HTN, ?Age > 75 (2), ?DM, ? prior CVA,VTE (2), ?CT,PAD, ?Age 64-74, ?Female Recent Labs Lab 06/21/18 [...] Hct, INR 4. Warfarin education received NO. DIRECTOR BIOINFORMATICS 5. Pharmacist to follow daily Warfarin Dosing Nomogram Per P&T-approved Electronically signed by: Alberto Isaac PharmD 06/21/2018 11:20 Ying Lopez MD - 06/21/2018 10:57 AM P DT HOSPITALIST PROGRESS NOTE Patient: Sarthak Nelson : 1950: Age: 67 y.o. MedRec: [id number] PCP: Jericho Cao MD Admission date: 06/19/2018 [...] has been on warfarin. Patient presented to [place]. Patient was out of timeframe fo r [...] narrowed bilaterally. Jana huber was transferred to [place] for further evaluation. MEDICATIONS: ynccgnbh-qkrtqtinbmck-zcatABVmyp 1 tablet Oral Nightly [START ON 06/22/2018] [...] ECGs available Confirmed by DAVID BARAHONA, NILAY ([id number]) on 06/20/2018 6:38:00 AM POC Glucose Collection [...] E' Septal Velocity 4 cm/s MV Deceleration [place] 765.46 cm/s2 MV Deceleration Time 173.25 msec [...] significant stenosis, which is in contrast to [facility]'s ultrasound. He has pacer so not [...] Home regimen: TBD after med-rec Managed by: [place] anticoagulation clinic previously adjusting coumadin for chronic Afib per Dr Anmol Isaac Sensitizers: none Drug Interactions: Acetaminophen, allopurinol NON-valvular AFIB patients: YOI0MG3-QOCb score (max 9): 6 ?CHF, ?HTN, ?Age > 75 (2), ?DM, ? prior CVA,VTE (2), ?CT,PAD, ?Age 64-74, ?Female Recent Labs Lab 06/21/18 [...] am: INR 4. Warfarin education received NO. DIRECTOR BIOINFORMATICS 5. Pharmacist to follow daily Warfarin Dosing [...] none Drug Interactions: Acetaminophen NON-valvular AFIB patients: MTG0ZS6-RSLo score (max 9): 6 ?CHF, ?HTN, ?Age > 75 (2), ?DM, ? prior CVA,VTE (2), ?CT,PAD, ?Age 64-74, ?Female Recent Labs Lab 06/20/18 [...] Hct, INR 4. Warfarin education received NO. DIRECTOR BIOINFORMATICS 5. Pharmacist to follow daily Warfarin Dosing Nomogram Per P&T-approved Electronically signed by: Alberto Isaac PharmD 06/20/2018 11:41 Liane Sanders MD - 06/20/2018 9:40 AM PDT [place] HOSPITALIST PROGRESS NOTE Patient: Sarthak Nelson : 1950: Age: 67 y.o. MedRec: [id number] Admission date: 06/19/2018 Hospital day # : [...] discuss with neurologist. On dysphagia diet per PLATE STACKER HAND. Subtherapeutic INR since mid 04/2018 - end 05/2018despite [place] antico clinic adjusting coumad in for chronic afib. Per [place] care everywhere PMHX 1. Cellulitis of abdominal [...] Kcl 20meq Qday Triumeq/Abacavir,dolutegravir,lamivudi clorthalidone 25 Qday---off wlthfyyazx88 tid---off Lasix ---off Allergies: Current Medications: Allergies Allergen Reactions Tape [Adhesive & Tape] Current Facility-Administered Medications Medication Dose Route Frequency Provider Last Rate Last Dose dfkphahi-bysmfpkxllcd-umtyDBGgbn (TRIUMEQ) 600-50-300 mg per tablet 1 tablet [...] Consult Dr. 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 -pacer is not amenable with MRI -TTE with bubble study--negative -Telemetry / trop neg / PT/OT/PLATE STACKER HAND Neuro checks -no med rec tech, I reviewed the medications in his [employer] grocery bag and recent med list faxed from [place], documented above. ALL diuretics/antihypertensives have been held. IDDM Cont lantus lispro - lower than home dose HTN Continue imdur HIV -Cont Abacavir,dolutegravir,lamivudi - multiple bottles Are in his [employer] bag Chronic systolic-diastolic heart failure/ VT / chronic A fib / pacer Patient reports holding lasix due to kidney injury, listed on [facility] information -Hold metoprolol for now given permissive HTN F/U [facility] CKD 3 Cr 1.77 -Cr 2.4 in 2017 at [facility] RACHELLE/Morbid obesity bmi 47.9 CPAP Chronic leg edema, VENOUS STASIS ULCER Wound care ordered F/U [place] wound clinic FEN: thickened liquid PPX: Warfarin - SUBTHERAPEUTIC SINCE 05/02/18 (06/09/18 NOTE per [place] care everywhere) Disp: PT/OT/PLATE STACKER HAND ordered Plan discussed with patient. Subjective by date Unhappy w/ thickened liquids, chronic pain Treatment log Imdur, stop asa. Continue lipitor/coumadin Exam On room air then tolerating home CPAP General NAD A and O obese Cardiac S1 S2 irregular Lung CTAB Abdominal soft nt nd + BS obese Neuro dysarthric, drooling left, poor tongue protrusion to left, weaker shoulder shrug left 4/5 left coal gasification technician, 3/5 left elbow flexion, 3/5 left shoulder flexion 5/5 right coal gasification technician/elbow flexion/shoulder flexion 4/5 left lower extremity 4+/5 [...] ECGs available Confirmed by NILAY HERNANDEZ MD ([id number]) on 06/20/2018 6:38:00 AM POC Glucose Collection [...] 12:08 PM Liane Isaac MD 06/20/2018 13:16 [facility] Portions of this chart may have been created with [employer] voice recognition software. Occasi onal wrong-word or [...] + | [facility] | [address] | [place] | [phone] | | [facility] | | [address] | | | - LABORATORY | | [...] ST. | [address] | [place] | [phone] | | [facility] | | [address] | | | - LABORATORY | | [...] [address] | [place] | [phone] | | [facility] | | [address] | | | - LABORATORY | | [...] mL/min/1.73m2 | [facility] | | | [place]AN | RATE,ESTIMATED | | MEDICAL | | | | mL/min/1.59p7Pjeg than | | CENTER - | | [...] + | [facility] | [address] | [place] | [phone] | | [facility] | | [address] | | | - LABORATORY | | [...] + | [facility] | [address] | [place] | [phone] | | [facility] | | [address] | | | - LABORATORY | | [...] [address] | [place] | [phone] | | [facility] | | [address] | | | - LABORATORY | | [...] [address] | [place] | [phone] | | [facility] | | [address] | | | - LABORATORY | | [...] [address] | [place] | [phone] | | [facility] | | [address] | | | - LABORATORY | | [...] | [address] | [place] | [phone] | | [facility] | | [address] | | | - LABORATORY | | [...] ST. | [address] | [place] | [phone] | | [facility] | | [address] | | | - LABORATORY | | [...] 1.62 (H) | 0.60 - 1.30 | [facility] | | | | | mg/dL | [facility] | | | | | | MEDICAL | | | | | | CENTER - | | | | | | LABORATORY | | + + + + + + | eGFR if not | 43 (L)Comment: | >=60 | [facility] | | | | GLOMERULAR FILTRATION | mL/min/1.73m2 | [facility] | | | [place]AN | RATE,ESTIMATED | | MEDICAL | | | | mL/min/1.80n9Piwq than | | CENTER - | | [...] + | [facility] | [address] | [place] | [phone] | | [facility] | | [address] | | | - LABORATORY | | [...] | | | | | | [employer] | | | | | [...] + | [facility] | [address] | [place] | [phone] | | [facility] | | [address] | | | - LABORATORY | | [...] + | [facility] | [address] | [place], [place] | [phone] | | [facility] | | [address] | | | - LABORATORY | | [...] [address] | [place] | [phone] | | [facility] | | [address] | | | - LABORATORY | | [...] | | | | | | n [place] | | | | | + +--------+ [...] 330 | | | YUMIKO Patient Number [id number] Date of Study | | | 06/20/2018 Visit Number [id number] Accession | | | [id number] Referring Physician DWIGHT JARRETT Number | | | Date of 1950 Special Education Associate | | | GREGG CHAHAL Age 67 year(s) | | | Interpreting WANDA HOFFMANN MD | | | [employer] Sales Representative SHUN SALGUERO | | | | | | WANDA Gender Male Nurse | | | Stress Coordinator Volunteer Services | | | Procedure Type of Study [...] 1.59 cm PW Diastolic: 1.77 cm EF Yoftuakdl28% EF Calculated: 65% | | | Miscellaneous [...] Diastolic: 1.77 cm | | | EF Lemvwytsi84% | | | EF Calculated: 65% | [...] Number 330 | | YUMIKO Patient Number [id number] Date of Study 06/20/2018 Visit | | Number [id number] Referring Physician DWIGHT | | KOLBY Number Date of 1950 Special Education Associate GREGG CHAHAL | | Age 67 year(s) Interpreting WANDA HOFFMANN MD | | [employer] Design[employer] Sales Representative SHUN SALGUERO | | WANDA Gender Male [...] PW Diastolic: 1.77 cm EF | | Iywbitolv59% EF Calculated: 65% Miscellaneous Aorta Aortic Root: [...] PW Diastolic: 1.77 cm | | EF Sxyvwigfq07% | | EF Calculated: 65% | | [...] [address] | [place] | [phone] | | [facility] | | [address] | | | - LABORATORY | | [...] | | | | | | [employer] | | | | | [...] [address] | [place] | [phone] | | [facility] | | [address] | | | - LABORATORY | | [...] [address] | [place] | [phone] | | [facility] | | [address] | | | - LABORATORY | | [...] | | | | NILAY HERNANDEZ MD ([id number]) | | | | | | on [...] | | | | | | [employer] | | | | | [...] ST. | [address] | [place], [place] | [phone] | | [facility] | | [address] | | | - LABORATORY | | [...] + | [facility] | [address] | [place] | [phone] | | [facility] | | [address] | | | - LABORATORY | | [...] [address] | [place] | [phone] | | [facility] | | [address] | | | - LABORATORY | | [...] + | [facility] | [address] | [place] | [phone] | | [facility] | | [address] | | | - LABORATORY | | [...] ST. | [address] | [place], [place] | [phone] | | [facility] | | [address] | | | - LABORATORY | | [...] + | [facility] | [address] | [place] | [phone] | | [facility] | | [address] | | | - LABORATORY | | [...] + | [facility] | [address] | [place] | [phone] | | [facility] | | [address] | | | - LABORATORY | | [...] | mL/min/1.73m2 | [facility] | | | [place] | RATE,ESTIMATED | | MEDICAL | | | | mL/min/1.61r2Unqi than | | CENTER - | | [...] [address] | [place] | [phone] | | [facility] | | [address] | | | - LABORATORY | | [...] [address] | [place] | [phone] | | [facility] | | [address] | | | - LABORATORY | | [...] | | | | | | [employer] | | | | | [...] [address] | [place] | [phone] | | [facility] | | [address] | | | - LABORATORY | | [...] [address] | [place] | [phone] | | [facility] | | [address] | | | - LABORATORY | | [...] | | GLOMERULAR FILTRATION | mL/min/1.73m2 | [facility] | | | [place]AN | RATE,ESTIMATED | | MEDICAL | | | | mL/min/1.17g4Vzap than | | CENTER - | | [...] [address] | [place] | [phone] | | [facility] | | [address] | | | - LABORATORY | | [...] [address] | [place] | [phone] | | [facility] | | [address] | | | - LABORATORY | | | | + + + + + documented in this encounter Visit Diagnoses + + | Diagnosis | + + | Ischemic cerebrovascular accident (CVA) (HCC) | + + | Stage 3 chronic kidney disease (HCC) | + + | IDDM (insulin dependent diabetes mellitus) ([facility]) Type II or unspecified type diabetes | | mellitus without mention of complication, not stated as uncontrolled | + + | HIV (human immunodeficiency virus infection) ([facility]) Asymptomatic human | | immunodeficiency virus (HIV) [...] | 1 tablet | | | | otnkbekl-tyctwiecbxmd-cnmcEHXnvx | | 18 10:57 | | | [...] | | | | | | | (zxrantbn-lghjmqgtpcoi-mjxzDGGxtw | | | | | | | [...] | | | | | NPO, Daytime 6404-3700 Use NIGHT | | | | | | | DOSE for doses scheduled: | | | | | | | HS, 3AM, Nighttime 0113-9413, | | | | | | + [...]
--- OUTSIDE RECORDS SUMMARY | ~2019-10-02 | XMS | Encounter Summary ---
Demographics + + + | Address | [address] [place] [address] | | | [place] [address] | + + + | Home Phone | | + + + | Preferred Language | Unknown | + + + | Marital Status | Single | + + + | Spiritism Affiliation | PEN | + + + | Race | White | + + + | Ethnic Group | Not or | + + + Author + + + | Author | [facility] | + + + | Organization | [facility] | + + + | Address | Unknown | + + + | Phone | Unavailable | + + + Support + + + + + | Name | Relationship | Address | Phone | + + + + + | Aileen Nelson | ECON | [address] | | | | | [place] [address] | | + + + + + Care Team Providers + +------+ + | Care Television Producer Name | Role | Phone | + [...] Ellen Fritz | | | | | [facility] [address] | [address] [place], | | | 03/22/ | | [facility] | [place] [address] | | | 2011 | | [place], [place] | [phone] | | | | | [address] | | | | | | [phone] | Loni Gardner MD | | | | | | [address] | | | | | | Street [place], [place] | | | | | | [address] | | | | | | | [...] 03/22/2012 Thank you for coming to the [facility] ED. You have been diagnosed with [...] doctor if you can take an o zuq-wpx-zszrxcw medicine. Rest and protect the sore area. [...] Pain: After Your Visit", log into your [employer] a ccount at [email or web address]. You can enter V293 in the [employer] Library" search b ox. Not on [employer]? Review the EventHivehart section of your After Visit Summary for directions on ho w to sign up. [phone] atHomestars. Care instructions adapted under license by [facility]. This care instruction is for use with your licensed healthcar e professional. If you have questions about a medical condition or this instruction, always ask your healthcare professional. at[employer] disclaims any warranty or liabili ty for your use of this information. Content Version: 9.3.94127; Last Revised: 2010 documented in this encounter [...] Provider: No primary provider on file. Primary Inspector Firearms: MD cardiology I was paged by ER to see Mr. Sarthak Nelson for ICD check. Sarthak Nelson is a 61 y.o . Male with ICD who came to ED and reports that his ICD fired. No diagnosis found. Generator: Device: [place] [employer] Model #: TELIGEN 100 E102 Serial #: [id number] Implanted: 12/29/2010 Leads: RV: GUIDANT Implant date: 12/29/2010 ICD PROGRAMMING: Alberto Mode: VVI Lower Rate: 40 bpm TACHY PARAMETERS: VT Detection Rate: 180, Therapy: ATP X3, CV: 5J, 41 JX2. Vf Detection Rate: 210. Therapy: CV: 5J, 41J X8. Patient is not pacer dependent. Today's underline rhythm is sinus 88. 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 Recommendations: Cardiology consult. Zandra Long PA-C [facility] DEPARTMENT: [id number]- CAR PIPE COVERING MOLDER EP [facility] Place of Service: [address] - ED Date of Service: 03/21/2012 CSN: [id number] Suggested Level of Care: 52707 - Programming device evaluation; single lead implantable [...] BRENDA | [address] | [place], [place] | | | [facility] CARE | [address] | [address] | | | TESTS | | | [...] | | | | | | | <eh=276....... Negative: | | | | | | [...] CHF. | | | | | | >eh=146....... Highly | | | | | | consistent with CHF. | | | | | | Patients with BNP>ue=013 | | | | | | | [...] | + + + + + | [facility] | [address] | [place] [address] | | | PATHOLOGY | [address] [...] | + + + + + | [facility] DEPARTMENT | [address] | [place] [address] | | | PATHOLOGY | [address] [...] view image for the detailed interpretation from Mobile Messenger results. | CARDIOLOGY | + + + + + + + + | Performing | Address | City/State/Zipcode | Phone Number | | Organization | | | | + + + + + | [facility] | [address] | [place], [place] | | | CARDIOLOGY | [address] | [address] | | + + + + + [...] [facility] | [address] | [place], [place] | | | [facility] | [address] | [address] | | | TESTS | | | [...] | + + + + + | [facility] DEPARTMENT OF | [address] | [place] [address] | | | PATHOLOGY | [address] [...] | + + + + + | [facility] DEPARTMENT OF | [address] | [place] [address] | | | PATHOLOGY | [address] [...] | | | DEPARTMENT | | | MOZAMBICAN | | | OF | | | [...] | + + + + + | [facility] | [address] | [place] [address] | | | PATHOLOGY | [address] [...] | + + + + + | [facility] DEPARTMENT | [address] | [place] [address] | | | PATHOLOGY | [address] | | | + + + + + 12 LEAD ECG (03/21/2012 4:04 PM PDT) + + + + + + | Component | Value | Ref Range | Performed | Pathologist | | | | | At | Signature | + + + + + + | VENTRICULAR | 77 | BPM | [facility] DEPT | | | RATE | [...] MEZA | | | | | | ([id number]) on 03/22/2012 | | | | | | 3:31:04 PM | | | | + + + + + + + + | Specimen | + + | | + + + + + | Narrative | Performed At | + + + | Please click | [facility] | | on view image for the detailed interpretation from Mobile Messenger results. | CARDIOLOGY | + + + + + + + + | Performing | Address | City/State/Zipcode | Phone Number | | Organization | | | | + + + + + | [facility] | [address] | [place], [place] | | | CARDIOLOGY | [address] | [address] | | + + + + + [...]
--- OUTSIDE RECORDS SUMMARY | ~2019-10-02 | XMS | Encounter Summary ---
Demographics + + + | Address | [address] [place] [address] | | | [place] [address] | + + + | Home Phone | | + + + | Preferred Language | Unknown | + + + | Marital Status | Single | + + + | Caodaism Affiliation | PEN | + + + | Race | White | + + + | Ethnic Group | Not or | + + + Author + + + | Author | [facility] | + + + | Organization | [facility] | + + + | Address | Unknown | + + + | Phone | Unavailable | + + + Support + + + + + | Name | Relationship | Address | Phone | + + + + + | Aileen Nelson | ECON | [address] | | | | | [place] [address] | | + + + + + Care Team Providers + +------+ + | Care Pain Management Physician Name | Role | Phone | + +------+ + PCP | Unavailable | + +------+ + Encounter Details +--------+ + + + + | Date | Type | Department | Care Team | Description | +--------+ + + + + | 05/07/ | Results | NON-[facility] | [facility] | | | 2014 | Only | Department | [address] | | | | | | [address] [place] | | | | | | [place] [address] | | | | | | [phone] | | | | | | | [...] POINT | | | GLUCOSE, | ID: [id number]: | | OF CARE | | | POC | [id number] Francoise LaRchanda | | TESTING | | | |Cigarette Stamper: [id number] Brasrey LaRchanda | | | | | [...] POINT | | | GLUCOSE, | ID: [id number]: | | OF CARE | | | POC | [id number] [place] | | TESTING | | | [...] POINT | | | GLUCOSE, | ID: [id number]: | | OF CARE | | | POC | [id number] [place]r | | TESTING | | | [...]
--- OUTSIDE RECORDS SUMMARY | ~2019-10-02 | XMS | Encounter Summary ---
Demographics + + + | Address | [address] | | | [place] [address] | + + + | Home Phone | | + + + | Preferred Language | Unknown | + + + | Marital Status | | + + + | Druze Affiliation | 1038 | + + + | Race | Unknown | + + + | Ethnic Group | Unknown | + + + Author + + + | Author | [facility] | | | and [place] | + + + | Organization | [facility] | | | and [place] | + + + | Address | Unknown | + + + | Phone | Unavailable | + + + Support + + + + + | Name | Relationship | Address | Phone | + + + + + | Aileen Nelson | ECON | [address] | | | | | [place] | | | | | [address] | | + + + + + Care Team Providers + +------+ + | Care Legal Records Manager Name | Role | Phone | [...] Ted Navarro | | | | | [place], [place] | [place] | | | | | [address] | [address] | | | | | [phone] | [phone] | | | | | | | [...] | + +--------+ + + + | SEDIMENTATION RATE, | Routin | 09/16/2017 | | Results for this | | AUTOMATED | e | 6:16 AM | | procedure are in the | | | | PST | | results section. | + +--------+ + + + documented in this encounter Results Sedimentation rate, automated (09/16/2017 6:16 AM PST) + +--------+ + + + | Component | Value | Ref Range | Performed | Pathologist | | | | | At | Signature | + +--------+ + + + | Sed Rate | 42 (H) | 0 - 20 mm/h | EXTERNAL | | | | | | LAB | | + +--------+ + + + [...]
--- OUTSIDE RECORDS SUMMARY | ~2019-10-02 | XMS | Clinical Summary ---
Demographics + + + | Address | [address] | | | [place] [address] | + + + | Home Phone | | + + + | Preferred Language | Unknown | + + + | Marital Status | | + + + | Taoism Affiliation | 1038 | + + + | Race | Unknown | + + + | Ethnic Group | Unknown | + + + Author + + + | Author | [facility] | | | and [place] | + + + | Organization | [facility] | | | and [place] | + + + | Address | Unknown | + + + | Phone | Unavailable | + + + Support + + + + + | Name | Relationship | Address | Phone | + + + + + | Aileen Nelson | ECON | [address] | | | | | [place] | | | | | [address] | | + + + + + Care Team Providers + +------+ + | Care Svp Business Development Name | Role | Phone | [...] | + + + +---------+------+------+-------+ | Saw Troy 450 | Take 900 mg by mouth [...] | + + + + | INFLUENZA, [id number], | 10/03/2009, 08/16/2009 | | | UNSPECIFIED [...] +---------+--------+ | [employer] | [employer] | [id number] | 05/21/20 | | | Indemn | | | NS | | 18-Pre | | | ity | | | ADMIN | | sent | | | | | | [place] | | | | | | | | [place] | | | | | | + +--------+ +--------+ +---------+--------+ | MEDICARE | MEDICA | [id number] | 09/20/18 | [phone] | | Medica [...] | 1951 | [phone] | [place] [address] | | | john | | | 5 (Home) | | + +--------+ +--------+ + + Advance Directives + + + + + | Type | Date Recorded | Patient | Explanation | | | | Md Allergy Immunology | | + + + + + | Power of | | | | | Character Impersonator | | | | + + + [...]
--- OUTSIDE RECORDS SUMMARY | ~2019-10-02 | XMS | Encounter Summary ---
Demographics + + + | Address | [address] [place] [address] | | | [place] [address] | + + + | Home Phone | | + + + | Preferred Language | Unknown | + + + | Marital Status | Single | + + + | Adventist Affiliation | PEN | + + + [...] | | | | | [place] [address] | | + + + + + Care Team Providers + +------+ + | Care Medical Office Technologist Name | Role | Phone | + [...] | | Results for this | | [id number] | e | 6:03 PM | | [...] POINT | | | GLUCOSE, | ID: [id number]: | | OF CARE | | | POC | [id number] Naida Lyles | | TESTING | | | |Collarette Separator: [id number] Naida Lyles | | | | | [...] | + +---------+ + + SCROTAL ULTRASOUND 30037 (05/08/2015 6:03 PM PDT) + + | Specimen | + + | | + + + + + | Narrative | Performed At | + + + | Name: | [facility] | | ARANDA,SARTHAK E | DEPARTMENT OF | | Phys: Bruno Gray MD | RADIOLOGY | | | | | : 1950 Age: 64 Sex: M | | | Acct: [id number] Loc: 426 2 | | | | | | Exam Date: 05/08/2015 Status: ADM IN | | | Radiology No: [id number] | | | Unit No: | | | [id number] EXAM# TYPE/EXAM | | | RESULT | | | [id number] US/SCROTAL ULTRASOUND [id number] | | | EXAM: SCROTAL ULTRASOUND | [...] | | | Transcribed Date/Time: 05/08/2015 (1803) Lead Caster: | | | SPEECHQ PAGE 1 Signed Report | | | | | + + + + + | Procedure Note | + + | Interface, Radiology Results - 05/08/2015 6:04 PM PDT | | Name: SARTHAK ARANDA | | Phys: Bruno Gray MD : | | 1950 Age: 64 Sex: M Acct: [id number] | | Loc: 426 2 Exam Date: 05/08/2015 | | Status: ADM IN Radiology No: [id number] | | Unit No: [id number] EXAM# TYPE/EXAM | | RESULT [id number] US/SCROTAL ULTRASOUND | | [id number] EXAM: SCROTAL ULTRASOUND | | CLINICAL HISTORY: [...] | Transcribed Date/Time: | | 05/08/2015 (1803) Lead Caster: GABRIELQ PAGE 1 Signed Report | | [...] | | | | Transcribed Date/Time: 05/08/2015 (1144) | | Lead Caster: SPEECHQ | | | | | | [...] POINT | | | GLUCOSE, | ID: [id number]: | | OF CARE | | | POC | [id number] Raisa Jesus Manuel | | TESTING | | | |Collarette Separator: [id number] Raisa Ken | | | | | [...] POINT | | | GLUCOSE, | ID: [id number]: | | OF CARE | | | POC | [id number] Raisa Ken | | TESTING | | | |Collarette Separator: [id number] Raisa Ken | | | | | [...] [facility] POINT | | | GLUCOSE, | [id number]: | | OF CARE | | | POC | [id number] Carie Mueller | | TESTING | | [...] [facility] | | | PLASMA | to consultant rn: ADD ON | | MEDITECH | | | (LAB) | PREFERRED | | LABORATORY | | + + + + + + + + | Specimen | + + | | + + + + + | Narrative | Performed At | + + + | Comments to consultant rn: ADD ON PREFERRED | [facility] | [...] [facility] | | | PLASMA | to consultant rn: ADD ON | mmol/L | MEDITECH | | | (LAB) | PREFERRED | | LABORATORY | | + + + + + + + + | Specimen | + + | | + + + + + | Narrative | Performed At | + + + | Comments to consultant rn: ADD ON PREFERRED | [facility] | [...]
--- OUTSIDE RECORDS SUMMARY | ~2019-10-02 | XMS | Encounter Summary ---
Demographics + + + | Address | [address] | | | [place] [address] | + + + | Home Phone | | + + + | Preferred Language | Unknown | + + + | Marital Status | | + + + | Gnosticism Affiliation | 1038 | + + + | Race | Unknown | + + + | Ethnic Group | Unknown | + + + Author + + + | Author | [facility] | | | and [place] | + + + | Organization | [facility] | | | and [place] | + + + | Address | Unknown | + + + | Phone | Unavailable | + + + Support + + + + + | Name | Relationship | Address | Phone | + + + + + | Aileen Nelson | ECON | [address] | | | | | [place] | | | | | [address] | | + + + + + Care Team Providers + +------+ + | Care Board Mill Supervisor Name | Role | Phone | [...] [place] | | | | | [place], [place] | [place] [address] | | | | | [address] | [phone] | | | | | [phone] | | | +--------+ + + + [...] and color flow Doppler was perfomed at [facility]. | | | Study: This was [...] TR Vmax: 2.40 m/s | | | [employer] Ha[employer] Truck Driver: Authenticated by: MARISOL DUBOSE MD Report Date/Time: | | | -- [id number] | | + + + + + [...] flow Doppler was perfomed | | at [facility].Study: This was a technically difficult study [...] (A-L): 56.04 ml/m2LAAs A2C: | | 38.73 [id number] A-L A2C: 174.50 mlLAESV MOD A2C: 167.16 mlLALs A2C: 7.29 cmLAAs | | A4C: 30.93 [id number] A-L A4C: 123.07 mlLAESV MOD A4C: 117.61 mlLALs A4C: 6.59 | | cmRAAs: 29.75 [id number] A-L: 106.29 mlRAESV MOD: 104.36 mlRALs: 7.07 cmTAPSE: | | 1.63 cmAV Env.Ti: 293.94 msAV maxP.81 mmHgAV meanP.90 mmHgAV Vmax: 0.97 | | m/Merrick Vmean: 0.64 m/Merrick VTI: 18.82 cmAVA Vmax: 3.41 cm2AVA (VTI): 3.65 [id number] | | Vmax: 0.00 cm2/m2AVAI (VTI): 0.00 cm2/m2LVOT Env.Ti: 310.90 msLVOT maxP.86 | | mmHgLVOT meanP.99 mmHgLVSI Dopp: 24.99 ml/m2LVSV Dopp: 68.73 mlLVOT Vmax: | | 0.68 m/sLVOT Vmean: 0.45 m/sLVOT VTI: 14.06 cmMV E Rodney: 1.16 m/sRAP: 10 mmHgRV | | S': 0.07 m/sRVSP: 33.16 mmHgTR maxP.16 mmHgTR Vmax: 2.40 m/s | | [employer] Ha[employer] Truck Driver:Authenticated by: Wilbur GROSS Date/Time: -[id number] | | IMPRESSION: 1. Overall left ventricular [...] |TR Vmax: 2.40 m/s | | | |[employer] Ha[employer] Truck Driver: | |Authenticated by: MARISOL DUBOSE MD | |Report Date/Time: -- [id number] | | | |IMPRESSION: | |1. Overall [...]
--- OUTSIDE RECORDS SUMMARY | ~2019-10-02 | XMS | Encounter Summary ---
Demographics + + + | Address | [address] | | | [place] [address] | + + + | Home Phone | | + + + | Preferred Language | Unknown | + + + | Marital Status | | + + + | Mormon Affiliation | 1038 | + + + | Race | Unknown | + + + | Ethnic Group | Unknown | + + + Author + + + | Author | [facility] | | | and [place] | + + + | Organization | [facility] | | | and [place] | + + + | Address | Unknown | + + + | Phone | Unavailable | + + + Support + + + + + | Name | Relationship | Address | Phone | + + + + + | Aileen Nelson | ECON | [address] | | | | | [place] | | | | | [address] | | + + + + + Care Team Providers + +------+ + | Care Automatic Pattern Edger Name | Role | Phone | + +------+ + | Jericho Cao MD | PCP | | + +------+ + Encounter Details +--------+ + + + + | Date | Type | Department | Care Team | Description | +--------+ + + + + | 06/22/ | Hospital | [facility] | Pramod Salinas | Neurogenic bladder; | | 2017 - | Encounter | MED CTR IR[facility] [address] | MD Ekaterina [address] | Acute left | | | | [place], | [address] [place] | hemiparesis (HCC); | | 07/01/ | | [place] [address] | [place] [address] | Diabetic peripheral | | 2018 | | [phone] | [phone] | neuropathy (HCC); | | | | | | Dysphagia due to | | | | | | recent cerebral | | | | | | infarction; HIV | | | | | | (human | | | | | | immunodeficiency | | | | | | virus infection) | | | | | | ([facility]) | +--------+ + + + + Social [...] Grayson a 67 y.o.malewho was admitted to [facility] on for CVA. The patient was in his usual state of health until mid morning of June 19 20 had sudde n onset of left-sided weakness. He was seen in an outlying hospital and emergently transfe rred here to [place] and admitted by Dr. Todd Sheffield MD. [...] has been on warfarin. Patient presented to [place]. Patient was out of timeframe for TPA [...] narrowed bilater ally. Patient was transferred to [place] for further evaluation. ASSESSMENT: Principal Problem: Ischemic [...] bubble study ordered -Telemetry -Serial troponins ordered -PT/OT/RENTAL SALESPERSON ordered -Unclear medication reconciliation, ordered, as per list which appears to be inaccurate as per patient holding Imdur, hydralazine, metoprolol for permissive hypertension -Neuro checks -Ordered Carotid Ultrasound, no images from [facility] when completed would consider xenia langston with [...] due to kidney injury, listed on [facility] information -Hold metoprolol for now given permissive HTN CKD 3 Cr 1.77 -Cr 2.4 in 2017 at [facility] History of CVA -On Warfarin, no ASA, atorvastatin listed?, likely emboli source in the past -Start ASA, atorvastatin FEN: Advance by bedside eval PPX: Warfarin Disp: PT/OT/RENTAL SALESPERSON ordered He underwent brain CT scans on [...] steno sis, which is in contrast to [facility]'s ultrasound. He has pacer sonot amenable [...] Route Frequency Provider Last Rate Last Dose eblicilr-vsjwcvbqyuxi-zntjTFYrho (TRIUMEQ) 600-50-300 mg per tablet 1 tablet [...] tablet 1-2 tablet Oral Q4H P RN Praomd Salinas MD 2 tablet at 06/30/18 203 [...] [facility]. We therefore recommended [...] patient will be discharged today To the [facility] in [facility] to continue with rehab services there. His [...] medication strength aka: IMDUR Unchanged Medications Details akogajdi-tbkohyrzkegl-ddmkSYKhkz 600-50-300 mg per tablet Take 1 tablet by mouth Daily. Indications: HIV Disease aka: TRIUMEQ allopurinol 100 mg tablet Take 100 mg by mouth Daily. aka: ZYLOPRIM finasteride 5 mg tablet Take 1 tablet by mouth Daily. aka: PROSCAR gabapentin 600 MG tablet Take 300 mg by mouth 2 times daily. aka: NEURONTIN [place] 450 MG Caps Take 900 mg by [...] NOT CHANGED Medication Dose Last Dose Taken; luetlmfs-kyhybstdhnsz-tdpbAUCmuh (TRIUMEQ) 600-50-300 mg per tablet 1 tablet [ ] Take 1 tablet by mouth Daily. Indications: HIV Disease allopurinol (ZYLOPRIM) 100 mg tablet 100 mg [ ] Take 100 mg by mouth Daily. gabapentin (NEURONTIN) 600 MG tablet 300 mg [ ] Take 300 mg by mouth 2 times daily. Saw [place] 450 MG CAPS 900 mg [ ] [...] this chart may have been created with [email or web address] voice recognition software. Occasi onal wrong-word or [...] + + +---------+ + + | Saw [place] 450 | Take 900 mg by mouth | | 0 | | | | MG CAPS | 2 times daily. | | | | | + + + +---------+ + + documented as of this encounter Progress Notes Pramod Salinas MD - 06/30/2018 3:37 PM PDT Anyj-yr-Hcie Rehabilitation Medicine Daily Progress Note Date: 06/30/18 [...] cognitive impairment Current Meds: Current Facility-Administered Medications: cnonchyx-abvrnhipiumg-crtjVUPrka (TRIUMEQ) 600-50-300 mg per tablet 1 tablet [...] speech therapy, case management, and social work specialist #Rehab - -Continue PT for gait, mobility -Continue OT for ADL's, toileting, adaptive equipment -Continue RENTAL SALESPERSON for cognition, swallow -Continue SW for discharge [...] continuing to coordinate and collaborate with the [facility] nursing staff to complement their therapy treatment focus, especially considering safety factors, as the patient is mobilized on the nursing unit. The patient is seen in collaboration with the rehab team. I met with the charge nurse fran navaing overall nursing care concerns. We also met with the patient and his , as well as our case maker, patient's bedside nurse, reviewing the patient's current [...] Notes document close and ongoing Physiatric involvement; cvlz-ix-wnjk vis its , professionally assessing the Patient, [...] time, as well as time communicating with [facility] patient and treatment team as discussed above. Signed: Pramod Salinas MD Portions of this chart may have been created with [email or web address] voice recognition software. Occasi onal wrong-word or sound-alike substitutions may have occurred due to the inherent gupta itations of voice recognition software. Please read the chart carefully and recognize, using context, where these substitutions have occurred. ill, Pramod Tobar MD - 06/29/2018 4:33 PM PDT Csxo-ih-Sgtj Rehabilitation Medicine Daily Progress Note Date: 06/29/18 [...] cognitive impairment Current Meds: Current Facility-Administered Medications: ywbtnkmr-noowvbyyshwy-rnfkSFVkyh (TRIUMEQ) 600-50-300 mg per tablet 1 tablet [...] speech therapy, case management, and social work specialist #Rehab - -Continue PT for gait, mobility -Continue OT for ADL's, toileting, adaptive equipment -Continue RENTAL SALESPERSON for cognition, swallow -Continue SW for discharge [...] was provided to the patient. Each steam presser is addressing this as the patient advances [...] board transfers. I met with the patient's case maker and reviewed the current rehabilitation plan of [...] this chart may have been created with [email or web address] voice recognition software. Occasi onal wrong-word or sound-alike substitutions may have occurred due to the inherent gupta itations of voice recognition software. Please read the chart carefully and recognize, using context, where these substitutions have occurred. ill, Pramod Tobar MD - 06/28/2018 4:46 PM PDT Jwcg-ww-Usus Rehabilitation Medicine Daily Progress Note Date: 06/28/18 [...] cognitive impairment Current Meds: Current Facility-Administered Medications: yoynekui-ztmxbsdxwyou-qclhCEEwdj (TRIUMEQ) 600-50-300 mg per tablet 1 tablet [...] speech therapy, case management, and social work specialist #Rehab - -Continue PT for gait, mobility -Continue OT for ADL's, toileting, adaptive equipment -Continue RENTAL SALESPERSON for cognition, swallow -Continue SW for discharge [...] Note documents close and ongoing Physiatric involvement; tzqf-nu-vymv vis its , professionally assessing the Patient [...] needs, o r more likely discharge to residential facility. He stated understanding of this. Please see the Rehabilitation Interdisciplinary Team Conference notes for further details regarding rehabilitation team discussion and plan. Following team conference I met with the patient and discussed the above. Safety with self-care and mobility were discussed. The patient's current rehabilitation plan of care and projected discharge destination were discussed and reviewed with the patient and our case maker. She is collaborating with the patient's support [...] this chart may have been created with [email or web address] voice recognition software. Occasi onal wrong-word or sound-alike substitutions may have occurred due to the inherent gupta itations of voice recognition software. Please read the chart carefully and recognize, using context, where these substitutions have occurred. [facility] 06/27/2018 4:47 PM PDT Vzgr-pg-Vmue Rehabilitation Medicine Daily Progress Note Date: 06/27/18 [...] cognitive impairment Current Meds: Current Facility-Administered Medications: dnpazanc-gxqbzqovlwgw-cwglFSJjqr (TRIUMEQ) 600-50-300 mg per tablet 1 tablet [...] speech therapy, case management, and social work specialist #Rehab - -Continue PT for gait, mobility -Continue OT for ADL's, toileting, adaptive equipment -Continue RENTAL SALESPERSON for cognition, swallow -Continue SW for discharge [...] pain complaints. I met with the patient's case maker and reviewed the current rehabilitation plan of [...] Notes document close and ongoing Physiatric involvement; ogbx-dn-wsmn vis its , professionally assessing the Patient, both Medically and Functionally, with the empha sis on the important interactions between our Patient's current clinical status, especially issues/barriers that may impact on the Rehabilitation Team's treatment and progress toward o medical and functional goals. I opine that this is important, so we may maximize our Patient's capacity to benefit from [facility] Comprehensive Inpatient Medical Rehabilitation process. The patient [...] the full inpatient rehabilitation treatment team in [facility] is planned. Total time: 37 minutes. I spent greater than 50% of the time regarding patient care and co ordination of the Medical Rehabilitation Team treatment focus addressing these patient care needs on this date, including nursing unit/floor time, as well as time communicating with [facility] patient and treatment team as discussed above. Signed: Pramod Salinas MD Portions of this chart may have been created with [email or web address] voice recognition software. Occasi onal wrong-word or [...] might be different from the origi nal. Xdnw-vl-Qxse Rehabilitation Medicine Daily Progress Note Date: 06/24/18 [...] virus infection) Current Meds: Current Facility-Administered Medications: szllemoz-frhizpyllvpc-lhknWKFydp (TRIUMEQ) 600-50-300 mg per tablet 1 tablet [...] speech therapy, case management, and social work specialist #Rehab - -Continue PT for gait, mobility -Continue OT for ADL's, toileting, adaptive equipment -Continue RENTAL SALESPERSON for cognition, swallow -Continue SW for discharge [...] Notes document close and ongoing Physiatric involvement; ypny-oy-txtl vis its , professionally assessing the Patient, [...] continuing to coordinate and collaborate with the [facility] nursing staff to complement their therapy treatment [...] bowel and bladder, and coordination with the Hot Plate Plywood Press Operator managing medical co -morbidities; including Coordinate with [...] term memory, problem solving and carry over. Welfare Adviser Respiratory Therapy Please see each of the [...] of function to allow discharge to the [facility] at the optimal level of function. Current [...] am is advanced. Specific short term and adjunct faculty for medical terminology Rehabilitation Team Treatment Goals will be developed, sh ared and implemented in collaboration with our patient and family/caregivers. The Brand Ambassador is the church Rehab steam presser interfacing with them. Rehab Potential: Good Expected [...] Tobar MD - 06/23/2018 12:33 PM PDT Pofu-qf-Qqoy Rehabilitation Medicine Daily Progress Note Date: 06/23/18 [...] virus infection) Current Meds: Current Facility-Administered Medications: cqbtjvsb-ilcswhxzmlzd-ywqwVTUjmw (TRIUMEQ) 600-50-300 mg per tablet 1 tablet [...] speech therapy, case management, and social work specialist #Rehab - -Continue PT for gait, mobility -Continue OT for ADL's, toileting, adaptive equipment -Continue RENTAL SALESPERSON for cognition, swallow -Continue SW for discharge [...] I met with our patient and the case maker, and we reviewed the overall plan of care and p rojected discharge destination. Note: My Progress Notes document close and ongoing Physiatric involvement; qgno-ku-bsrb vi sits, professionally assessing the Patient, both [...] continuing to coordinate and collaborate with the [facility]'s nursing staff to complement their therapy treatment [...] up with the patient's bedside nurse, and case maker/licensed master social worker. Total time: 37 minutes. I spent greater than 50% of the time regarding patient care and co ordination of the Medical Rehabilitation Team treatment focus addressing these patient care needs on this date, including nursing unit/floor time, as well as time communicating with [facility] patient and treatment team as [...] patient is in a one-story house in [facility] with his wi fe. There is a ramp installed and otherwise there are 6 steps to enter the building. 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 He also served in the [employer] for 3-1/2 years. He is independent with [...] bowel and bladder, and coordination with the [employer] Plate Plywood Press Operator management medical comorbid ities. Therapies: Physical Therapy [...] of the Comprehensive Medical Rehabilitation Program.) Clinical Investment Banker Pharmacist Goals: Medical stability and safety with [...] collaboration with our patient and family/caregivers. The Brand Ambassador is the church Rehab steam presser interfacing with them. Rehab potential is good. Estimated length of stay: 14 days. Discharge Plan: Discharge to premorbid independent living setting with the supportive car e of family/caregivers and community resources. Signed: Pramod Salinas MD 06/23/2018 12:34 Portions of this chart may have been created with [email or web address] voice recognition software. Occasi onal wrong-word or [...] [address] | [place] | [phone] | | [facility] | | [address] | | | - LABORATORY | | [...] [address] | [place] | [phone] | | [facility] | | [address] | | | - LABORATORY | | [...] [address] | [place] | [phone] | | [facility] | | [address] | | | - LABORATORY | | [...] + | [address] [facility] | [address] | [place] | [phone] | | [facility] | | [address] | | | - LABORATORY | | [...] [address] | [place] | [phone] | | [facility] | | [address] | | | - LABORATORY | | [...] [address] | [place] | [phone] | | [facility] | | [address] | | | - LABORATORY | | [...] | | POC | | | [facility] | | | | | | [...] ST. | [address] | [place] | [phone] | | [facility] | | [address] | | | - LABORATORY | | [...] + | [facility] | [address] | [place] | [phone] | | [facility] | | [address] | | | - LABORATORY | | [...] [address] | [place] | [phone] | | [facility] | | [address] | | | - LABORATORY | | [...] [address] | [place] | [phone] | | [facility] | | [address] | | | - LABORATORY | | [...] + | [facility] | [address] | [place] | [phone] | | [facility] | | [address] | | | - LABORATORY | | [...] [address] | [place] | [phone] | | [facility] | | [address] | | | - LABORATORY | | [...] [address] | [place] | [phone] | | [facility] | | [address] | | | - LABORATORY | | [...] + | [facility] | [address] | [place] | [phone] | | [facility] | | [address] | | | - LABORATORY | | [...] mL/min/1.73m2 | [facility] | | | [facility] | RATE,ESTIMATED | | MEDICAL | | | | mL/min/1.78b8Enhn than | | CENTER - | | [...] [address] | [place] | [phone] | | [facility] | | [address] | | | - LABORATORY | | [...] [address] | [place] | [phone] | | [facility] | | [address] | | | - LABORATORY | | [...] + | [facility] | [address] | [place] | [phone] | | [facility] | | [address] | | | - LABORATORY | | [...] | | POC | | | [facility] | | | | | | [...] ST. | [address] | [place] | [phone] | | [facility] | | [address] | | | - LABORATORY | | [...] [address] | [place] | [phone] | | [facility] | | [address] | | | - LABORATORY | | [...] [address] | [place] | [phone] | | [facility] | | [address] | | | - LABORATORY | | [...] + | [facility] | [address] | [place] | [phone] | | [facility] | | [address] | | | - LABORATORY | | [...] [address] | [place] | [phone] | | [facility] | | [address] | | | - LABORATORY | | [...] [address] | [place] | [phone] | | [facility] | | [address] | | | - LABORATORY | | [...] + | [facility] | [address] | [place] | [phone] | | [facility] | | [address] | | | - LABORATORY | | [...] [address] | [place] | [phone] | | [facility] | | [address] | | | - LABORATORY | | [...] [address] | [place] | [phone] | | [facility] | | [address] | | | - LABORATORY | | [...] + | [facility] | [address] | [place] | [phone] | | [facility] | | [address] | | | - LABORATORY | | [...] + | [facility] | [address] | [place] | [phone] | | [facility] | | [address] | | | - LABORATORY | | [...] | | POC | | | [facility] | | | | | | [...] [address] | [place] | [phone] | | [facility] | | [address] | | | - LABORATORY | | [...] + | [facility] | [address] | [place] | [phone] | | [facility] | | [address] | | | - LABORATORY | | [...] + | [facility] | [address] | [place] | [phone] | | [facility] | | [address] | | | - LABORATORY | | [...] [address] | [place] | [phone] | | [facility] | | [address] | | | - LABORATORY | | [...] ST. | [address] | [place], [place] | [phone] | | [facility] | | [address] | | | - LABORATORY | | [...] + | [facility] | [address] | [place] | [phone] | | [facility] | | [address] | | | - LABORATORY | | [...] | | POC | | | [facility] | | | | | | [...] ST. | [address] | [place], [place] | [phone] | | [facility] | | [address] | | | - LABORATORY | | [...] [address] | [place] | [phone] | | [facility] | | [address] | | | - LABORATORY | | [...] + | [facility] | [address] | [place] | [phone] | | [facility] | | [address] | | | - LABORATORY | | [...] | mL/min/1.73m2 | CAT | | | [facility] | RATE,ESTIMATED | | MEDICAL | | | | mL/min/1.69c1Ddro than | | CENTER - | | [...] | 9.4 | 8.3 - 10.5 | [facility] | | | | | mg/dL | [...] [address] | [place] | [phone] | | [facility] | | [address] | | | - LABORATORY | | [...] + | [facility] | [address] | [place] | [phone] | | [facility] | | [address] | | | - LABORATORY | | [...] [address] | [place] | [phone] | | [facility] | | [address] | | | - LABORATORY | | [...] [address] | [place] | [phone] | | [facility] | | [address] | | | - LABORATORY | | [...] + + | Ischemic cerebrovascular accident (CVA) ([facility]) | + + | IDDM (insulin dependent [...] | 1 tablet | | | | eddfztnl-tzqccofevkvy-zrtiVQUown | | 18 8:34 | | | [...] | | | | | modification) on [facility] 06/23/18 at | | | | [...] | | | (after last modification) on [facility] | | AM PDT | | [...] | | | | | NPO, Daytime 3981-9585 Use NIGHT | | | | | | | DOSE for doses scheduled: | | | | | | | HS, 3AM, Nighttime 3900-7079, | | | | | | | [...]
--- OUTSIDE RECORDS SUMMARY | ~2019-10-02 | XMS | Encounter Summary ---
Demographics + + + | Address | [address] | | | [place] [address] | + + + | Home Phone | | + + + | Preferred Language | Unknown | + + + | Marital Status | | + + + | Congregation Affiliation | 1038 | + + + | Race | Unknown | + + + | Ethnic Group | Unknown | + + + Author + + + | Author | [facility] | | | and [place] | + + + | Organization | [facility] | | | and [place] | + + + | Address | Unknown | + + + | Phone | Unavailable | + + + Support + + + + + | Name | Relationship | Address | Phone | + + + + + | Aileen Nelson | ECON | [address] | | | | | [place] | | | | | [address] | | + + + + + Care Team Providers + +------+ + | Care Keycase Assembler Name | Role | Phone | + [...] Ted Navarro | | | | | [place], [place] | [place] | | | | | [address] | [address] | | | | | [phone] | [phone] | | | | | | | [...]
--- OUTSIDE RECORDS SUMMARY | ~2019-10-02 | XMS | Encounter Summary ---
Demographics + + + | Address | [address] [place] [address] | | | [place] [address] | + + + | Home Phone [...] Author + + + | Author | [facility] | + + + | Organization | [facility] | + + + | Address | Unknown | + + + | Phone | Unavailable | + + + Support + + + + + | Name | Relationship | Address | Phone | + + + + + | Aileen Nelson | ECON | [address] | | | | | [place] [address] | | + + + + + Care Team Providers + +------+ + | Care Admitting Counselor Name | Role | Phone | [...] (Primary Dx); | | | | [place] [place] | [place] [address] | Hydrocele, | | | | [address] | [phone] | unspecified | | | | [phone] | | hydrocele type | +--------+---------+ + [...] up with your ID physician at the [facility] in 4 weeks Try and elevated [...] with his infectious disease provider at the [facility]. Mr. Nelson did not follow up at the [facility]. He states the pain is improving, the redness is improved. He denies any dysuria or blood in the urine. He has had no fevers or chills. Past Medical History Diagnosis Date Diabetes mellitus Human immunodeficiency virus (HIV) disease Coronary atherosclerosis of unspecified type of vessel, [place] or graft Acute, but ill-defined, cerebrovascular disease Unspecified essential hypertension Arrhythmia a-fib, v-fib Chronic kidney disease (CKD), stage III (moderate) Paroxysmal SVT (supraventricular tachycardia) Congestive heart failure, unspecified Atrial fibrillation Obesity RACHELLE (obstructive sleep apnea) High cholesterol Back pain ED (erectile dysfunction) Epididymitis 2009 Cellulitis Venous insufficiency (chronic) (peripheral) Past Surgical History Procedure Laterality Date Aicd implantation Meds: Current outpatient prescriptions: ABACAVIR/DOLUTEGRAVIR/LAMIVUDI ([id number] IVUD ORAL), Take 600 mg by mouth [...] once daily. , Disp: , Rfl: omega 1-vwz-vjs-fish oil (FISH OIL) 100-160-1,000 mg oral capsule, [...] encouraged them to follow up with the [facility] as previously described. I would like him to see urology either at the [facility] or to return to our office. I have asked him to see us back i anand three or four weeks if he has not been seen at the [facility]. We can also discuss at that time aliza webb or not the urinary tract infections need any workup. 2. He will continue and finish his antibiotics. Edmond Estes M.D./winnie A Transcribing Operators Supervisor was offered to the patient. The offer [...]
--- OUTSIDE RECORDS SUMMARY | ~2019-10-02 | XMS | Encounter Summary ---
Demographics + + + | Address | [address] | | | [place] [address] | + + + | Home Phone | | + + + | Preferred Language | Unknown | + + + | Marital Status | | + + + | Holiness Affiliation | 1038 | + + + | Race | Unknown | + + + | Ethnic Group | Unknown | + + + Author + + + | Author | [facility] | | | and [place] | + + + | Organization | [facility] | | | and [place] | + + + | Address | Unknown | + + + | Phone | Unavailable | + + + Support + + + + + | Name | Relationship | Address | Phone | + + + + + | Aileen Nelson | ECON | [address] | | | | | [place] | | | | | [address] | | + + + + + Care Team Providers + +------+ + | Care Vp Patient Name | Role | Phone | + [...] Ted Navarro | | | | | [place], [place] | [place] | | | | | [address] | [address] | | | | | [phone] | [phone] | | | | | | | [...] + + + + + | CD4 | 998Comment: | 490 - 1400 /uL | EXTERNAL | | | ABSOLUTE | ===NOTIFICATION | | LAB | | | (REF) | REQUIRED, REPORT SENT TO | | [...] | | | | | | DETERMINEDBY [facility] | | | | | [facility] | | | | | | [place]. IT HAS NOT BEEN | | | [...]
--- OUTSIDE RECORDS SUMMARY | ~2019-10-02 | XMS | Encounter Summary ---
Demographics + + + | Address | [address] | | | [place] [address] | + + + | Home Phone | | + + + | Preferred Language | Unknown | + + + | Marital Status | | + + + | Roman Catholic Affiliation | 1038 | + + + | Race | Unknown | + + + | Ethnic Group | Unknown | + + + Author + + + | Author | [facility] | | | and [place] | + + + | Organization | [facility] | | | and [place] | + + + | Address | Unknown | + + + | Phone | Unavailable | + + + Support + + + + + | Name | Relationship | Address | Phone | + + + + + | Aileen Nelson | ECON | [address] | | | | | [place] | | | | | [address] | | + + + + + Care Team Providers + +------+ + | Care Senior Assistant Manager Name | Role | Phone | [...] | | | [place], [place] | [place] | | | | | [address] | [address] | | | | | [phone] | [phone] | | | | | | | [...]
--- OUTSIDE RECORDS SUMMARY | ~2019-10-02 | XMS | Encounter Summary ---
Demographics + + + | Address | [address] | | | [place] [address] | + + + | Home Phone | | + + + | Preferred Language | Unknown | + + + | Marital Status | | + + + | Rastafarian Affiliation | [id number] | + + + | Race | Unknown | + + + | Ethnic Group | Unknown | + + + Author + + + | Author | [facility] | | | and [place] [...] [place] | | | | | [id number] | | + + + + + Care Team Providers + +------+ + | Care Computer Teacher Name | Role | Phone | + +------+ + | Jericho Cao MD | PCP | | + +------+ + Encounter Details +--------+ + + + + | Date | Type | Department | Care Team | Description | +--------+ + + + + | 06/22/ | Hospital | [facility] | Pramod Salinas | Neurogenic bladder; | | 2017 - | Encounter | MED [facility] [address] | MD Ekaterina [address] | Acute left | | | | [place], | [address] [place] | hemiparesis (HCC); | | 07/01/ | | [place] [address] | [place] [address] | Diabetic peripheral | | 2018 | | [phone] | [phone] | neuropathy (HCC); | | | | | | Dysphagia due to | | | | | | recent cerebral | | | | | | infarction; HIV | | | | | | (human | | | | | | immunodeficiency | | | | | | virus infection) | | | | | | ([facility]) | +--------+ + + + + [...] Grayson a 67 y.o.malewho was admitted to [facility] on for CVA. The patient was in his usual state of health until mid morning of June 19 20 had sudde n onset of left-sided weakness. He was seen in an outlying hospital and emergently transfe rred here to [place] and admitted by Dr. Todd Sheffield MD. [...] has been on warfarin. Patient presented to [place]. Patient was out of timeframe for TPA [...] narrowed bilater ally. Patient was transferred to [place] for further evaluation. ASSESSMENT: Principal Problem: Ischemic [...] bubble study ordered -Telemetry -Serial troponins ordered -PT/OT/AGRICULTURAL ECONOMICS PROFESSOR ordered -Unclear medication reconciliation, ordered, as per list which appears to be inaccurate as per patient holding Imdur, hydralazine, metoprolol for permissive hypertension -Neuro checks -Ordered Carotid Ultrasound, no images from [facility] when completed would consider xenia langston [...] due to kidney injury, listed on [facility] information -Hold metoprolol for now given permissive HTN CKD 3 Cr 1.77 -Cr 2.4 in 2017 at [facility] History of CVA -On Warfarin, no ASA, atorvastatin listed?, likely emboli source in the past -Start ASA, atorvastatin FEN: Advance by bedside eval PPX: Warfarin Disp: PT/OT/AGRICULTURAL ECONOMICS PROFESSOR ordered He underwent brain CT scans on [...] steno sis, which is in contrast to [facility]'s ultrasound. He has pacer sonot [...] Route Frequency Provider Last Rate Last Dose feircrjh-vgwexgivyvhq-clutRFDxle (TRIUMEQ) 600-50-300 mg per tablet 1 tablet [...] him [facility]. We therefore recommended [...] will be discharged today To the [facility] in [facility] to continue with rehab services there. His [...] medication strength aka: IMDUR Unchanged Medications Details lwduhoqk-pmgtznyrrwfm-ctiiFLTlrz 600-50-300 mg per tablet Take 1 tablet by mouth Daily. Indications: HIV Disease aka: TRIUMEQ allopurinol 100 mg tablet Take 100 mg by mouth Daily. aka: ZYLOPRIM finasteride 5 mg tablet Take 1 tablet by mouth Daily. aka: PROSCAR gabapentin 600 MG tablet Take 300 mg by mouth 2 times daily. aka: NEURONTIN [place] 450 MG Caps Take 900 mg by [...] NOT CHANGED Medication Dose Last Dose Taken; adretigx-uawtfstnbddc-tedlMHXqkr (TRIUMEQ) 600-50-300 mg per tablet 1 tablet [ ] Take 1 tablet by mouth Daily. Indications: HIV Disease allopurinol (ZYLOPRIM) 100 mg tablet 100 mg [ ] Take 100 mg by mouth Daily. gabapentin (NEURONTIN) 600 MG tablet 300 mg [ ] Take 300 mg by mouth 2 times daily. Saw [place]vue 450 MG CAPS 900 mg [ ] [...] this chart may have been created with [employer] voice recognition software. Occasi onal wrong-word or [...] + + +---------+ + + | Saw [place]vue 450 | Take 900 mg by mouth | | 0 | | | | MG CAPS | 2 times daily. | | | | | + + + +---------+ + + documented as of this encounter Progress Notes Pramod Salinas MD - 06/30/2018 3:37 PM PDT Seig-ep-Urtz Rehabilitation Medicine Daily Progress Note Date: 06/30/18 [...] cognitive impairment Current Meds: Current Facility-Administered Medications: tnkucqti-xcneoekzhplh-xxsdRXVvdm (TRIUMEQ) 600-50-300 mg per tablet 1 tablet [...] mg, 7.5 mg, Oral, Daily after dinner, Parmod hancock MD, 7.5 mg at 06/29/18 184 [...] occupational therapy, speech therapy, case management, and socially responsible investment adviser #Rehab - -Continue PT for gait, mobility -Continue OT for ADL's, toileting, adaptive equipment -Continue AGRICULTURAL ECONOMICS PROFESSOR for cognition, swallow -Continue SW for discharge [...] continuing to coordinate and collaborate with the [facility] nursing staff to complement their therapy treatment focus, especially considering safety factors, as the patient is mobilized on the nursing unit. The patient is seen in collaboration with the rehab team. I met with the charge nurse fran navaing overall nursing care concerns. We also met with the patient and his , as well as our director of casework services, patient's bedside nurse, reviewing the patient's current [...] Notes document close and ongoing Physiatric involvement; gytd-fm-txaa vis its , professionally assessing the Patient, [...] time, as well as time communicating with [facility] patient and treatment team as discussed above. Signed: Pramod Salinas MD Portions of this chart may have been created with [employer] voice recognition software. Occasi onal wrong-word or sound-alike substitutions may have occurred due to the inherent gupta itations of voice recognition software. Please read the chart carefully and recognize, using context, where these substitutions have occurred. ill, Pramod Tobar MD - 06/29/2018 4:33 PM PDT Pvcz-sd-Xcgf Rehabilitation Medicine Daily Progress Note Date: 06/29/18 [...] cognitive impairment Current Meds: Current Facility-Administered Medications: pwybzopc-cnainwxqqknt-kuiuXDUokj (TRIUMEQ) 600-50-300 mg per tablet 1 tablet [...] occupational therapy, speech therapy, case management, and socially responsible investment adviser #Rehab - -Continue PT for gait, mobility -Continue OT for ADL's, toileting, adaptive equipment -Continue AGRICULTURAL ECONOMICS PROFESSOR for cognition, swallow -Continue SW for discharge [...] plan was provided to the patient. Each development team lead is addressing this as the patient advances [...] board transfers. I met with the patient's director of casework services and reviewed the current rehabilitation plan of [...] this chart may have been created with [employer] voice recognition software. Occasi onal wrong-word or sound-alike substitutions may have occurred due to the inherent gupta itations of voice recognition software. Please read the chart carefully and recognize, using context, where these substitutions have occurred. ill, Pramod Tobar MD - 06/28/2018 4:46 PM PDT Ihkh-ys-Vdvi Rehabilitation Medicine Daily Progress Note Date: 06/28/18 [...] cognitive impairment Current Meds: Current Facility-Administered Medications: hlegyggx-tpixuboemphp-tesgKMZwcq (TRIUMEQ) 600-50-300 mg per tablet 1 tablet [...] occupational therapy, speech therapy, case management, and socially responsible investment adviser #Rehab - -Continue PT for gait, mobility -Continue OT for ADL's, toileting, adaptive equipment -Continue AGRICULTURAL ECONOMICS PROFESSOR for cognition, swallow -Continue SW for discharge [...] Note documents close and ongoing Physiatric involvement; qynh-st-dtfr vis its , professionally assessing the Patient [...] needs, o r more likely discharge to group home facility. He stated understanding of this. Please see the Rehabilitation Interdisciplinary Team Conference notes for further details regarding rehabilitation team discussion and plan. Following team conference I met with the patient and discussed the above. Safety with self-care and mobility were discussed. The patient's current rehabilitation plan of care and projected discharge destination were discussed and reviewed with the patient and our director of casework services. She is collaborating with the patient's support [...] this chart may have been created with [employer] voice recognition software. Occasi onal wrong-word or sound-alike substitutions may have occurred due to the inherent gupta itations of voice recognition software. Please read the chart carefully and recognize, using context, where these substitutions have occurred. [facility] 06/27/2018 4:47 PM PDT Vscn-ae-Wodx Rehabilitation Medicine Daily Progress Note Date: 06/27/18 [...] cognitive impairment Current Meds: Current Facility-Administered Medications: vlurlayw-ohtqjcziawqg-wgtrBQIkrk (TRIUMEQ) 600-50-300 mg per tablet 1 tablet [...] occupational therapy, speech therapy, case management, and socially responsible investment adviser #Rehab - -Continue PT for gait, mobility -Continue OT for ADL's, toileting, adaptive equipment -Continue AGRICULTURAL ECONOMICS PROFESSOR for cognition, swallow -Continue SW for discharge [...] pain complaints. I met with the patient's director of casework services and reviewed the current rehabilitation plan of [...] Notes document close and ongoing Physiatric involvement; xcco-pa-kggm vis its , professionally assessing the Patient, both Medically and Functionally, with the empha sis on the important interactions between our Patient's current clinical status, especially issues/barriers that may impact on the Rehabilitation Team's treatment and progress toward o medical and functional goals. I opine that this is important, so we may maximize our Patient's capacity to benefit from [facility] Comprehensive Inpatient Medical Rehabilitation process. The patient [...] the full inpatient rehabilitation treatment team in [facility] is planned. Total time: 37 minutes. I spent greater than 50% of the time regarding patient care and co ordination of the Medical Rehabilitation Team treatment focus addressing these patient care needs on this date, including nursing unit/floor time, as well as time communicating with [facility] patient and treatment team as discussed above. Signed: Pramod Salinas MD Portions of this chart may have been created with [employer] voice recognition software. Occasi onal wrong-word or [...] might be different from the origi nal. Dqcs-ki-Wnzv Rehabilitation Medicine Daily Progress Note Date: 06/24/18 [...] virus infection) Current Meds: Current Facility-Administered Medications: avcueslf-covisedoytul-slgvTXIkhl (TRIUMEQ) 600-50-300 mg per tablet 1 tablet [...] occupational therapy, speech therapy, case management, and socially responsible investment adviser #Rehab - -Continue PT for gait, mobility -Continue OT for ADL's, toileting, adaptive equipment -Continue AGRICULTURAL ECONOMICS PROFESSOR for cognition, swallow -Continue SW for discharge [...] Notes document close and ongoing Physiatric involvement; ajgs-cb-kect vis its , professionally assessing the Patient, [...] continuing to coordinate and collaborate with the [facility] nursing staff to complement [...] bowel and bladder, and coordination with the Improvement Auditor managing medical co -morbidities; including Coordinate with [...] term memory, problem solving and carry over. Desk Assistant Respiratory Therapy Please see each of the [...] of function to allow discharge to the [facility] at the optimal level of function. [...] am is advanced. Specific short term and exterminator termite Rehabilitation Team Treatment Goals will be developed, sh ared and implemented in collaboration with our patient and family/caregivers. The Rehabilitation Counselor is the church Rehab development team lead interfacing with them. Rehab Potential: Good Expected [...] Tobar MD - 06/23/2018 12:33 PM PDT Lkky-sg-Bgfz Rehabilitation Medicine Daily Progress Note Date: 06/23/18 [...] virus infection) Current Meds: Current Facility-Administered Medications: sfzpvcys-smomqjwmcxhr-cwukQCTxcd (TRIUMEQ) 600-50-300 mg per tablet 1 tablet [...] occupational therapy, speech therapy, case management, and socially responsible investment adviser #Rehab - -Continue PT for gait, mobility -Continue OT for ADL's, toileting, adaptive equipment -Continue AGRICULTURAL ECONOMICS PROFESSOR for cognition, swallow -Continue SW for discharge [...] I met with our patient and the director of casework services, and we reviewed the overall plan of care and p rojected discharge destination. Note: My Progress Notes document close and ongoing Physiatric involvement; qqgy-bs-onwz vi sits, professionally assessing the Patient, both [...] continuing to coordinate and collaborate with the [facility]'s nursing staff to complement their [...] up with the patient's bedside nurse, and director of casework services/socially responsible investment adviser. Total time: 37 minutes. I spent greater than 50% of the time regarding patient care and co ordination of the Medical Rehabilitation Team treatment focus addressing these patient care needs on this date, including nursing unit/floor time, as well as time communicating with [facility] patient and treatment team as discussed above. [...] patient is in a one-story house in [facility] with his wi fe. There is a ramp installed and otherwise there are 6 steps to enter the building. 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 He also served in the [employer] for 3-1/2 years. He is independent with [...] bowel and bladder, and coordination with the Improvement Auditor management medical comorbid ities. Therapies: Physical Therapy [...] of the Comprehensive Medical Rehabilitation Program.) Clinical Compress Machine Operator Pharmacist Goals: Medical stability and safety with [...] collaboration with our patient and family/caregivers. The Rehabilitation Counselor is the church Rehab development team lead interfacing with them. Rehab potential is good. Estimated length of stay: 14 days. Discharge Plan: Discharge to premorbid independent living setting with the supportive car e of family/caregivers and community resources. Signed: Pramod Salinas MD 06/23/2018 12:34 Portions of this chart may have been created with [employer] voice recognition software. Occasi onal wrong-word or [...] [address] | [place] | [phone] | | [facility] | | [address] | | | - LABORATORY | | [...] [address] | [place] | [phone] | | [facility] | | [address] | | | - LABORATORY | | [...] [address] | [place] | [phone] | | [facility] | | [address] | | | - LABORATORY | | [...] + | [facility] | [address] | [place] | [phone] | | [facility] | | [address] | | | - LABORATORY | | [...] [address] | [place] | [phone] | | [facility] | | [address] | | | - LABORATORY | | [...] [address] | [place] | [phone] | | [facility] | | [address] | | | - LABORATORY | | [...] | | POC | | | [facility] | | | | | | [...] [address] | [place] | [phone] | | [facility] | | [address] | | | - LABORATORY | | [...] + | [facility] | [address] | [place] | [phone] | | [facility] | | [address] | | | - LABORATORY | | [...] [address] | [place] | [phone] | | [facility] | | [address] | | | - LABORATORY | | [...] [address] | [place] | [phone] | | [facility] | | [address] | | | - LABORATORY | | [...] + | [facility] | [address] | [place] | [phone] | | [facility] | | [address] | | | - LABORATORY | | [...] [address] | [place] | [phone] | | [facility] | | [address] | | | - LABORATORY | | [...] [address] | [place] | [phone] | | [facility] | | [address] | | | - LABORATORY | | [...] + | [facility] | [address] | [place] | [phone] | | [facility] | | [address] | | | - LABORATORY | | [...] mL/min/1.73m2 | [facility] | | | GUINEAN | RATE,ESTIMATED | | MEDICAL | | | | mL/min/1.98t3Kduc than | | CENTER - | | [...] [address] | [place] | [phone] | | [facility] | | [address] | | | - LABORATORY | | [...] [address] | [place] | [phone] | | [facility] | | [address] | | | - LABORATORY | | [...] + | [facility] | [address] | [place] | [phone] | | [facility] | | [address] | | | - LABORATORY | | [...] | | POC | | | [facility] | | | | | | [...] ST. | [address] | [place] | [phone] | | [facility] | | [address] | | | - LABORATORY | | [...] [address] | [place] | [phone] | | [facility] | | [address] | | | - LABORATORY | | [...] [address] | [place] | [phone] | | [facility] | | [address] | | | - LABORATORY | | [...] + | [facility] | [address] | [place] | [phone] | | [facility] | | [address] | | | - LABORATORY | | [...] [address] | [place] | [phone] | | [facility] | | [address] | | | - LABORATORY | | [...] [address] | [place] | [phone] | | [facility] | | [address] | | | - LABORATORY | | [...] + | [facility] | [address] | [place] | [phone] | | [facility] | | [address] | | | - LABORATORY | | [...] [address] | [place] | [phone] | | [facility] | | [address] | | | - LABORATORY | | [...] [address] | [place] | [phone] | | [facility] | | [address] | | | - LABORATORY | | [...] + | [facility] | [address] | [place] | [phone] | | [facility] | | [address] | | | - LABORATORY | | [...] + | [facility] | [address] | [place] | [phone] | | [facility] | | [address] | | | - LABORATORY | | [...] | | POC | | | [facility] | | | | | | [...] [address] | [place] | [phone] | | [facility] | | [address] | | | - LABORATORY | | [...] + | [facility] | [address] | [place] | [phone] | | [facility] | | [address] | | | - LABORATORY | | [...] + | [facility] | [address] | [place] | [phone] | | [facility] | | [address] | | | - LABORATORY | | [...] [address] | [place] | [phone] | | [facility] | | [address] | | | - LABORATORY | | [...] ST. | [address] | [place], [place] | [phone] | | [facility] | | [address] | | | - LABORATORY | | [...] + | [facility] | [address] | [place] | [phone] | | [facility] | | [address] | | | - LABORATORY | | [...] | | POC | | | [facility] | | | | | | [...] ST. | [address] | [place], [place] | [phone] | | [facility] | | [address] | | | - LABORATORY | | [...] [address] | [place] | [phone] | | [facility] | | [address] | | | - LABORATORY | | [...] + | [facility] | [address] | [place] | [phone] | | [facility] | | [address] | | | - LABORATORY | | [...] | mL/min/1.73m2 | CAT | | | GUINEAN | RATE,ESTIMATED | | MEDICAL | | | | mL/min/1.61r5Xceq than | | CENTER - | | [...] | 9.4 | 8.3 - 10.5 | [facility] | | | | | mg/dL [...] [address] | [place] | [phone] | | [facility] | | [address] | | | - LABORATORY | | [...] + | [facility] | [address] | [place] | [phone] | | [facility] | | [address] | | | - LABORATORY | | [...] [address] | [place] | [phone] | | [facility] | | [address] | | | - LABORATORY | | [...] [address] | [place] | [phone] | | [facility] | | [address] | | | - LABORATORY | | [...] + | HIV (human immunodeficiency virus infection) ([facility]) Asymptomatic human | | immunodeficiency virus (HIV) infection status | + + | Ischemic cerebrovascular accident (CVA) ([facility]) | + + | IDDM (insulin dependent diabetes mellitus) ([facility]) Type II or unspecified type diabetes [...] | 1 tablet | | | | lvemtzvy-xqftafgxhyur-qaqcGYUhsx | | 18 8:34 | | | [...] | | | | | modification) on [facility] 06/23/18 at | | | | | [...] | | | (after last modification) on [facility] | | AM PDT | | | [...] | | | | | NPO, Daytime 2789-9659 Use NIGHT | | | | | | | DOSE for doses scheduled: | | | | | | | HS, 3AM, Nighttime 9312-2086, | | | | | | | [...]
--- OUTSIDE RECORDS SUMMARY | ~2019-10-02 | XMS | Encounter Summary ---
Demographics + + + | Address | [address] [place] [address] | | | [place] [address] | + + + | Home Phone | | + + + | Preferred Language | Unknown | + + + | Marital Status | Single | + + + | Tenriism Affiliation | PEN | + + + [...] | | | | | [place] [address] | | + + + + + Care Team Providers + +------+ + | Care Box Repairer Name | Role | Phone | + [...] Med Cntr | | | | | [address] | Hospitalists [address] | | | | | [address] | | | | | | [place] | | | | | | [address] | | | | | | | [...] Bruno Gray MD - 05/10/2015 1:26 PM [facility] DISCHARGE SUMMARY [address] ADDENDUM [place] [address] ADDENDUM: DATE OF ADMISSION: 05/04/2015 Because there is minimal change to improvement for his scrotal cellulitis, cefdinir was discussed in detail with infectious disease doctor at the [place], Srinivas Lafleur, upon discharge, stating that cefdinir at 300 mg b.i.d. is being continued and if there is need to increase it any further based on patient's weight. Srinivas Lafleur spoke with Marlin Winter, who is a pharmacist at the [place], and their mutual decision was to keep [...] for Marlin Winter, the pharmacist at the [place], was [phone] [facility] 5095. ILL/MedQ /[id number] Electronically Signed 05/20/15 0736 MD MANOJ Abbott EDWARD E [id number] : 50 [id number] ADMIT DATE: 05/04/15 DISCHARGE DATE: 05/10/15 Bruno Verdin MD - 05/10/2015 12:02 PM [facility] DISCHARGE SUMMARY [address] [place] [address] SARTHAK ARANDA DATE OF ADMISSION: 05/04/2015 DATE [...] on April 23 he went to the [facility] for urinary tract symptoms and was diagnosed [...] multiple times in the ED. SARTHAK ARANDA [id number] : 50 [id number] ADMIT DATE: 05/04/15 DISCHARGE DATE: 05/10/15 HOSPITAL [...] for 3 weeks in total. However, the [place] only allows 14 days of antibiotics maximum [...] the infectious disease lead clinical at the [place], his last CD4 count in February 2015 was 873. She did not suspect that this was an opportunistic infection causing epididymo-orchitis and did agree with 3rd generation cephalosporins as it would not only cover for the E coli that we isolated in his urinalysis from SARTHAK ARANDA [id number] : 50 [id number] ADMIT DATE: 05/04/15 DISCHARGE DATE: 05/10/15 the [place] when he saw them 2 weeks ago, [...] 25 mg b.i.d. as needed. SARTHAK ARANDA [id number] : 50 [id number] ADMIT DATE: 05/04/15 DISCHARGE DATE: 05/10/15 6. Kent 5/325 mg 1 tablet q.4 hours as [...] up with the anticoagulation clinic at the [place] for further management. 3. Lantus 40 units subcu b.i.d., down from 50 units subcu b.i.d. Stopped medications: 1. Doxycycline. 2. Warfarin 5 mg Wednesday, Wednesday, Wednesday, Wednesday. DISCHARGE FOLLOWUP: 1. With Dr. Estes within 3-7 days. 2. With [place] infectious disease physician/specialist within 3-7 days. 3. Romain Harrington within 1-2 weeks. 4. Anticoagulation clinic within 1-2 days. DISCHARGE ACTIVITY: As tolerated. DISCHARGE DIET: Diabetic and low salt and low sodium. Spent more than 30 minutes counseling and coordinating care. DEYANIRA/MedQ /[id number] CC: Iain WHITE M.D. JESSE M. PAPAC, M.D. Electronically Signed 05/20/15 0735 Bruno Gray MD ARANDASARTHAK [id number] : 50 [id number] ADMIT DATE: 05/04/15 DISCHARGE DATE: 05/10/15 Tdocumented in this encounter Plan of Treatment Not on filedocumented as of this encounter Visit Diagnoses Not on filedocumented in this encounter"
--- OUTSIDE RECORDS SUMMARY | ~2019-10-02 | XMS | Encounter Summary ---
Demographics + + + | Address | [address] [place] [address] | | | [place] [address] | + + + | Home Phone | | + + + | Preferred Language | Unknown | + + + | Marital Status | Single | + + + | Yarsani Affiliation | PEN | + + + [...] | | | | | [place] [address] | | + + + + + Care Team Providers + +------+ + | Care Cold Roll Operator Name | Role | Phone | [...] POINT | | | GLUCOSE, | ID: [id number]: | | OF CARE | | | POC | [id number] Geraldo Wells | | TESTING | | | |Inspector Air Carrier: [id number] Geraldo Wells | | | | | [...] POINT | | | GLUCOSE, | ID: [id number]: | | OF CARE | | | POC | [id number] Erik Salazar | | TESTING | | | |Inspector Air Carrier: [id number] Erik Salazar | | | | | [...] POINT | | | GLUCOSE, | ID: [id number]: | | OF CARE | | | POC | [id number] Erik Salazar | | TESTING | | | |Inspector Air Carrier: [id number] Erik Salazar | | | | | [...] [place] POINT | | | GLUCOSE, | [id number]: | | OF CARE | | | POC | [id number] Erik Salazar | | TESTING | | | |Inspector Air Carrier: [id number] Erik Salazar | | | | | [...]
--- OUTSIDE RECORDS SUMMARY | ~2019-10-02 | XMS | Clinical Summary ---
Demographics + + + | Address | [address] | | | [place] [address] | + + + | Home Phone | | + + + | Preferred Language | Unknown | + + + | Marital Status | | + + + | Yarsani Affiliation | 1038 | + + + | Race | Unknown | + + + | Ethnic Group | Unknown | + + + Author + + + | Author | [facility] | | | and [...] | Aileen Nelson | ECON | [address] | | | | | [place] | | | | | [address] | | + + + + + Care Team Providers + +------+ + | Care Silk Spooler Name | Role | Phone | + [...] | + + + +---------+------+------+-------+ | Saw [place] 450 | Take 900 mg by mouth [...] | + + + + | INFLUENZA, [id number], | 10/03/2009, 08/16/2009 | | | UNSPECIFIED [...] +---------+--------+ | [employer]MIN | VETERA | [id number] | 05/21/20 | | | Indemn | | | NS | | 18-Pre | | | ity | | | ADMIN | | sent | | | | | | [place] | | | | | | | | [place] | | | | | | + +--------+ +--------+ +---------+--------+ | MEDICARE | MEDICA | [id number] | 09/20/18 | [phone] | | Medica [...] | 1951 | [phone] | [place] [address] | | | john | | | 5 (Home) | | + +--------+ +--------+ + + Advance Directives + + + + + | Type | Date Recorded | Patient | Explanation | | | | Appeals Manager | | + + + + + | Power of | | | | | Neuroradiologist | | | | + + + [...]
--- OUTSIDE RECORDS SUMMARY | ~2019-10-02 | XMS | Encounter Summary ---
Demographics + + + | Address | [address] | | | [place] [address] | + + + | Home Phone | | + + + | Preferred Language | Unknown | + + + | Marital Status | | + + + | Voodoo Affiliation | 1038 | + + + | Race | Unknown | + + + | Ethnic Group | Unknown | + + + Author + + + | Author | [facility] | | | and [place] | + + + | Organization | [facility] | | | and [place] | + + + | Address | Unknown | + + + | Phone | Unavailable | + + + Support + + + + + | Name | Relationship | Address | Phone | + + + + + | Aileen Nelson | ECON | [address] | | | | | [place] | | | | | [address] | | + + + + + Care Team Providers + +------+ + | Care Operations Support Analyst Name | Role | Phone | [...] Ted Navarro | | | | | [place], [place] | [place] | | | | | [address] | [address] | | | | | [phone] | [phone] | | | | | | | [...]
--- OUTSIDE RECORDS SUMMARY | ~2019-10-02 | XMS | Encounter Summary ---
Demographics + + + | Address | [address] [place] [address] | | | [place] [address] | + + + | Home Phone [...] + + + | Author | [facility] | + + + | Organization | [facility] | + + + | Address | Unknown | + + + | Phone | Unavailable | + + + Support + + + + + | Name | Relationship | Address | Phone | + + + + + | Aileen Nelson | ECON | [address] | | | | | [place] [address] | | + + + + + Care Team Providers + +------+ + | Care Natural Resources Professor Name | Role | Phone | + [...] By Patient | | | | [place], [place] | [place] [address] | | | | | [address] | [phone] | | | | | [phone] | | | +--------+ + + + [...]
--- OUTSIDE RECORDS SUMMARY | ~2019-10-02 | XMS | Encounter Summary ---
Demographics + + + | Address | [address] | | | [place] [address] | + + + | Home Phone | | + + + | Preferred Language | Unknown | + + + | Marital Status | | + + + | Oriental Orthodox Affiliation | 1038 | + + + | Race | Unknown | + + + | Ethnic Group | Unknown | + + + Author + + + | Author | [facility] | | | and [place] | + + + | Organization | [facility] | | | and [place] | + + + | Address | Unknown | + + + | Phone | Unavailable | + + + Support + + + + + | Name | Relationship | Address | Phone | + + + + + | Aileen Nelson | ECON | [address] | | | | | [place] | | | | | [address] | | + + + + + Care Team Providers + +------+ + | Care Bomb Squad Commander Name | Role | Phone | + [...] Ted Navarro | | | | | [place], [place] | [place] | | | | | [address] | [address] | | | | | [phone] | [phone] | | | | | | | [...]
--- OUTSIDE RECORDS SUMMARY | ~2019-10-02 | XMS | Encounter Summary ---
Demographics + + + | Address | [address] [place] [address] | | | [place] [address] | + + + | Home Phone [...] + + + | Author | [facility] | + + + | Organization | [facility] | + + + | Address | Unknown | + + + | Phone | Unavailable | + + + Support + + + + + | Name | Relationship | Address | Phone | + + + + + | Aileen Aranda | ECON | [address] | | | | | [place] [address] | | + + + + + Care Team Providers + +------+ + | Care Shipyard Painting Supervisor Name | Role | Phone | [...] | | Results for this | | [address] | e | 3:22 PM | | [...] POINT | | | GLUCOSE, | ID: [id number]: | | OF CARE | | | POC | [id number] John Goyal | | TESTING | | | |Cloth Stock Sorter: [id number] John Goyal | | | | | [...] POINT | | | GLUCOSE, | ID: [id number]: | | OF CARE | | | POC | [id number] Adam Guille | | TESTING | | | |Cloth Stock Sorter: [id number] Adam Guille | | | | | [...] | + +---------+ + + SCROTAL ULTRASOUND 44971 (05/04/2015 3:22 PM PDT) + + | Specimen | + + | | + + + + + | Narrative | Performed At | + + + | Name: | [facility] | | SARTHAK ARANDA | DEPARTMENT OF | | Phys: Sonu Welch MD | RADIOLOGY | | | | | : 1950 Age: 64 Sex: M | | | Acct: [id number] Loc: 426 2 | | | | | | Exam Date: 05/03/2015 Status: ADM IN | | | Radiology No: | | | Unit No: | | | [id number] EXAM# TYPE/EXAM | | | RESULT | | | [id number] US/SCROTAL ULTRASOUND 46031 | | | TESTICULAR ULTRASOUND | | [...] | Sex: M | | | Acct: [id number] Loc: 426 2 | | | Exam Date: 05/03/2015 | | | Status: ADM IN | | | Radiology No: | | | Unit No: [id number] | | | EXAM# TYPE/EXAM RESULT | | | [id number] US/SCROTAL | | | ULTRASOUND 95865 | | | Findings reviewed with Dr. Estes May 04, | | | 2014. [id number] | | | REPORT ELECTRONICALLY SIGNED 05/05/2015 (2670) | | | Reported By: Neetu HERNÁNDEZ MD | | | Signed By: Scooter Hernández M.D. | | | | | | Technologist: LISA DICKERSON | | | Electronically signed by: Neetu BUCK | | | SAGAR BARAHONA CC: Romain Harrington MD | | | | | | | | | Transcribed Date/Time: | | | 05/04/2015 (321) Bottle Assembler: MQ.RSW PAGE | | | 2 Signed Report | | | | | + + + + + | Procedure Note | + + | Interface, Radiology Results - 06/03/2015 10:36 AM PDT | | Name: SARTHAK ARANDA | | Phys: Sonu Welch MD : | | 1950 Age: 64 Sex: M Acct: [id number] | | Loc: 426 2 Exam Date: 05/03/2015 | | Status: ADM IN Radiology No: | | Unit No: [id number] EXAM# TYPE/EXAM | | RESULT [id number] US/SCROTAL ULTRASOUND | | 67609 TESTICULAR ULTRASOUND | | INDICATION: Right-sided scrotal [...] Age: 64 Sex: M Acct: | | [id number] Loc: 426 2 Exam Date: | | 05/03/2015 Status: ADM IN Radiology No: | | Unit No: [id number] EXAM# | | TYPE/EXAM RESULT [id number] | | US/SCROTAL ULTRASOUND 46269 Findings | | reviewed with Dr. Estes May 04, 2015. [id number] | | REPORT ELECTRONICALLY SIGNED 05/05/2015 (1635) Reported | | By: Neetu HERNÁNDEZ MD Signed By: Scooter Hernández M.D. | | Technologist: LISA DICKERSON | | Electronically signed by: Neetu HERNÁNDEZ MD CC: Romain Harrington MD | | | | Transcribed Date/Time: 05/04/2015 (1630) | | Bottle Assembler: [facility] PAGE 2 Signed Report | | | [...] Age: 64 Sex: M | | Acct: [id number] Loc: 426 2 | | Exam Date: 05/03/2015 Status: ADM IN | | Radiology No: | | Unit No: [id number] | | | | | | | | | |EXAM# TYPE/EXAM RESULT | |[id number] US/SCROTAL ULTRASOUND 19073 | | | | Findings reviewed with Dr. Estes May 04, 2015. | | | | [id number] | | | | | | REPORT [...] | | | | Transcribed Date/Time: 05/04/2015 (3400) | | Bottle Assembler: PUSHPAW | | | | | | [...] POINT | | | GLUCOSE, | ID: [id number]: | | OF CARE | | | POC | [id number] Adam Han | | TESTING | | | |Cloth Stock Sorter: [id number] Adam Han | | | | | [...] POINT | | | GLUCOSE, | ID: [id number]: | | OF CARE | | | POC | [id number] Megan | | TESTING | | | [...] | | TESTING | | | | [id number]: | | | | | | [id number] Bruceheron Prettya | | | | | [...]
--- OUTSIDE RECORDS SUMMARY | ~2019-10-02 | XMS | Clinical Summary ---
Demographics + + + | Address | [place] [address] | + + + | Home Phone | | + + + | Preferred Language | Unknown | + + + | Marital Status | Unknown | + + + | Pentecostalism Affiliation | Unknown | + + + | Race | Unknown | + + + | Ethnic Group | Unknown | + + + Author + + + | Author | [facility] (Historical as of | | | 05-06-19) | + + + | Organization | [facility] (Historical as of | | | 05-06-19) | + + + | Address | Unknown | + + + | Phone | Unavailable | + + + Care Team Providers + +------+ + | Care Job Developer Name | Role | Phone | + [...]
--- OUTSIDE RECORDS SUMMARY | ~2019-10-02 | XMS | Encounter Summary ---
Demographics + + + | Address | [address] [place] [address] | | | [place] [address] | + + + | Home Phone [...] Author + + + | Author | [facility] | + + + | Organization | [facility] | + + + | Address | Unknown | + + + | Phone | Unavailable | + + + Support + + + + + | Name | Relationship | Address | Phone | + + + + + | Aileen Nelson | ECON | [address] | | | | | [place] [address] | | + + + + + Care Team Providers + +------+ + | Care Roustabout Crew Name | Role | Phone | + [...] | | | | | [place] [address] | | | | | | [phone] | | | | | | | [...] POINT | | | GLUCOSE, | ID: [id number]: | | OF CARE | | | POC | [id number] Rowena Williamson | | TESTING | | | |Double Needle Operator Lockstitch: [id number] Rowena Williamson | | | | | [...] [place] POINT | | | GLUCOSE, | [id number]: | | OF CARE | | | POC | [id number] Rowena Williamson | | TESTING | | | |Double Needle Operator Lockstitch: [id number] Rowena Williamson | | | | | [...]
--- OUTSIDE RECORDS SUMMARY | ~2019-10-02 | XMS | Encounter Summary ---
Demographics + + + | Address | [address] [place] [address] | | | [place] [address] | + + + | Home Phone [...] Author + + + | Author | [facility] | + + + | Organization | [facility] | + + + | Address | Unknown | + + + | Phone | Unavailable | + + + Support + + + + + | Name | Relationship | Address | Phone | + + + + + | Aileen Nelson | ECON | [address] | | | | | [place] [address] | | + + + + + Care Team Providers + +------+ + | Care Roller Varnisher Name | Role | Phone | + [...] By Patient | | | | [place], [place] | [place] [address] | | | | | [address] | [phone] | | | | | [phone] | | | +--------+ + + + [...]
--- OUTSIDE RECORDS SUMMARY | ~2019-10-02 | XMS | Encounter Summary ---
Demographics + + + | Address | [address] [place] [address] | | | [place] [address] | + + + | Home Phone | | + + + | Preferred Language | Unknown | + + + | Marital Status | Single | + + + | Mormon Affiliation | PEN | + + + | Race | White | + + + | Ethnic Group | Not or | + + + Author + + + | Author | [facility] | + + + | Organization | [facility] | + + + | Address | Unknown | + + + | Phone | Unavailable | + + + Support + + + + + | Name | Relationship | Address | Phone | + + + + + | Aileen Nelson | ECON | [address] | | | | | [place] [address] | | + + + + + Care Team Providers + +------+ + | Care Hand Sign Writer Name | Role | Phone | [...] [place] | | | | | | [address] | | | +--------+ + + + [...]
--- OUTSIDE RECORDS SUMMARY | ~2019-10-02 | XMS | Encounter Summary ---
Demographics + + + | Address | [address] | | | [place] [address] | + + + | Home Phone | | + + + | Preferred Language | Unknown | + + + | Marital Status | | + + + | Nondenominational Affiliation | 1038 | + + + | Race | Unknown | + + + | Ethnic Group | Unknown | + + + Author + + + | Author | [facility] | | | and [...] | [address] | | | | | [place] | | | | | [address] | | + + + + + Care Team Providers + +------+ + | Care Wrecking Crane Engine Operator Name | Role | Phone | [...] Ted Navarro | | | | | [place], [place] | [place] | | | | | [address] | [address] | | | | | [phone] | [phone] | | | | | | | [...]
--- OUTSIDE RECORDS SUMMARY | ~2019-10-02 | XMS | Encounter Summary ---
Demographics + + + | Address | [address] [place] [address] | | | [place] [address] | + + + | Home Phone | | + + + | Preferred Language | Unknown | + + + | Marital Status | Single | + + + | Yazidi Affiliation | PEN | + + + | Race | White | + + + | Ethnic Group | Not or | + + + Author + + + | Author | [facility] | + + + | Organization | [facility] | + + + | Address | Unknown | + + + | Phone | Unavailable | + + + Support + + + + + | Name | Relationship | Address | Phone | + + + + + | Aileen Nelson | ECON | [address] | | | | | [place] [address] | | + + + + + Care Team Providers + +------+ + | Care Certified Anesthesiologist Assistant Name | Role | Phone | [...] [place] | | | | | | [address] | | | | | | [phone] | | | | | | | [...] POINT | | | GLUCOSE, | ID: [id number]: | | OF CARE | | | POC | [id number] Davi Diop | | TESTING | | | |Solderer Assembler: [id number] Davi Diop | | | | | [...] [place] POINT | | | GLUCOSE, | [id number]: | | OF CARE | | | POC | [id number] Linsey Peñaloza | | TESTING | | | |Solderer Assembler: [id number] Linsey Peñaloza | | | | | [...] POINT | | | GLUCOSE, | ID: [id number]: | | OF CARE | | | POC | [id number] Linsey Peñaloza | | TESTING | | | |Solderer Assembler: [id number] Linsey Peñaloza | | | | | [...] POINT | | | GLUCOSE, | ID: [id number]: | | OF CARE | | | POC | [id number] Linsey Peñaloza | | TESTING | | | |Solderer Assembler: [id number] Linsey Peñaloza | | | | | [...] POINT | | | GLUCOSE, | ID: [id number]: | | OF CARE | | | POC | [id number] Jesse Ivey | | TESTING | | | |Solderer Assembler: [id number] Jesse Ivey | | | | | [...]
--- OUTSIDE RECORDS SUMMARY | ~2019-10-02 | XMS | Encounter Summary ---
Demographics + + + | Address | [address] [place] [address] | | | [place] [address] | + + + | Home Phone | | + + + | Preferred Language | Unknown | + + + | Marital Status | Single | + + + | Jew Affiliation | PEN | + + + | Race | White | + + + | Ethnic Group | Not or | + + + Author + + + | Author | [facility] | + + + | Organization | [facility] | + + + | Address | Unknown | + + + | Phone | Unavailable | + + + Support + + + + + | Name | Relationship | Address | Phone | + + + + + | Aileen Aranda | ECON | [address] | | | | | [place] [address] | | + + + + + Care Team Providers + +------+ + | Care Sorting Machine Operator Name | Role | Phone [...] | | Results for this | | [address]65[address] | e | 3:22 PM | | [...] POINT | | | GLUCOSE, | ID: [id number]: | | OF CARE | | | POC | [id number] John Goyal | | TESTING | | | |Shoe Shiner: [id number] John Goyal | | | | | [...] POINT | | | GLUCOSE, | ID: [id number]: | | OF CARE | | | POC | [id number] Adam Guille | | TESTING | | | |Shoe Shiner: [id number] Adam Guille | | | | | [...] | + +---------+ + + SCROTAL ULTRASOUND 72684 (05/04/2015 3:22 PM PDT) + + | Specimen | + + | | + + + + + | Narrative | Performed At | + + + | Name: | [facility] | | SARTHAK ARANDA | DEPARTMENT OF | | Phys: Sonu Welch MD | RADIOLOGY | | | | | : 1950 Age: 64 Sex: M | | | Acct: [id number] Loc: 426 2 | | | | | | Exam Date: 05/03/2015 Status: ADM IN | | | Radiology No: | | | Unit No: | | | [id number] EXAM# TYPE/EXAM | | | RESULT | | | [id number] US/SCROTAL ULTRASOUND 58248 | | | TESTICULAR ULTRASOUND | | [...] | Sex: M | | | Acct: [id number] Loc: 426 2 | | | Exam Date: 05/03/2015 | | | Status: ADM IN | | | Radiology No: | | | Unit No: [id number] | | | EXAM# TYPE/EXAM RESULT | | | [id number] US/SCROTAL | | | ULTRASOUND 13328 | | | Findings reviewed with Dr. Estes May 04, | | | 2014. [id number] | | | REPORT ELECTRONICALLY SIGNED 05/05/2015 (9326) | | | Reported By: Neetu HERNÁNDEZ MD | | | Signed By: Scooter Hernández M.D. | | | | | | Technologist: LISA DICKERSON | | | Electronically signed by: Neetu BUCK | | | SAGAR BARAHONA CC: Romain Harrington MD | | | | | | | | | Transcribed Date/Time: | | | 05/04/2015 (865) Supervisor Bottle Machines: MQ.RSW PAGE | | | 2 Signed Report | | | | | + + + + + | Procedure Note | + + | Interface, Radiology Results - 06/03/2015 10:36 AM PDT | | Name: SARTHAK ARANDA | | Phys: Sonu Welch MD : | | 1950 Age: 64 Sex: M Acct: [id number] | | Loc: 426 2 Exam Date: 05/03/2015 | | Status: ADM IN Radiology No: | | Unit No: [id number] EXAM# TYPE/EXAM | | RESULT [id number] US/SCROTAL ULTRASOUND | | 51730 TESTICULAR ULTRASOUND | | INDICATION: Right-sided scrotal [...] Age: 64 Sex: M Acct: | | [id number] Loc: 426 2 Exam Date: | | 05/03/2015 Status: ADM IN Radiology No: | | Unit No: [id number] EXAM# | | TYPE/EXAM RESULT [id number] | | US/SCROTAL ULTRASOUND 40975 Findings | | reviewed with Dr. Estes May 04, 2015. [id number] | | REPORT ELECTRONICALLY SIGNED 05/05/2015 (1635) Reported | | By: Neetu HERNÁNDEZ MD Signed By: Scooter Hernández M.D. | | Technologist: LISA DICKERSON | | Electronically signed by: Neetu HERNÁNDEZ MD CC: Romain Harrington MD | | | | Transcribed Date/Time: 05/04/2015 (1630) | | Supervisor Bottle Machines: [facility] PAGE 2 Signed Report [...] Age: 64 Sex: M | | Acct: [id number] Loc: 426 2 | | Exam Date: 05/03/2015 Status: ADM IN | | Radiology No: | | Unit No: [id number] | | | | | | | | | |EXAM# TYPE/EXAM RESULT | |[id number] US/SCROTAL ULTRASOUND 49631 | | | | Findings reviewed with Dr. Estes May 04, 2015. | | | | [id number] | | | | | | REPORT [...] | | | | Transcribed Date/Time: 05/04/2015 (4840) | | Supervisor Bottle Machines: PUSHPAW | | | | | | [...] POINT | | | GLUCOSE, | ID: [id number]: | | OF CARE | | | POC | [id number] Adam Han | | TESTING | | | |Shoe Shiner: [id number] Adam Han | | | | | [...] POINT | | | GLUCOSE, | ID: [id number]: | | OF CARE | | | POC | [id number] Megan | | TESTING | | | [...] | | TESTING | | | | [id number]: | | | | | | [id number] Bruceheron Prettya | | | | | [...]
--- OUTSIDE RECORDS SUMMARY | ~2019-10-02 | XMS | Encounter Summary ---
Demographics + + + | Address | [address] [place] [address] | | | [place] [address] | + + + | Home Phone [...] | | | | | [place] [address] | | + + + + + Care Team Providers + +------+ + | Care Gas Engine Performance Engineer Name | Role | Phone | + +------+ + PCP | Unavailable | + +------+ + Encounter Details +--------+ + + + + | Date | Type | Department | Care Team | Description | +--------+ + + + + | 10/13/ | Hospital | Diagnostic Imaging | | | | 2009 | Encounter | Services at [facility] | | | | | | [address] | | | | | | [place] Mailcode: | | | | | | [address] [facility] | | | | | | [place], [place] | | | | | | [address] | | | | | | [phone] | | | +--------+ + + + [...]
--- OUTSIDE RECORDS SUMMARY | ~2019-10-02 | XMS | Encounter Summary ---
Demographics + + + | Address | [address] [place] [address] | | | [place] [address] | + + + | Home Phone | | + + + | Preferred Language | Unknown | + + + | Marital Status | Single | + + + | Rastafarian Affiliation | PEN | + + + | Race | White | + + + | Ethnic Group | Not or | + + + Author + + + | Author | [facility] | + + + | Organization | [facility] | + + + | Address | Unknown | + + + | Phone | Unavailable | + + + Support + + + + + | Name | Relationship | Address | Phone | + + + + + | Aileen Nelson | ECON | [address] | | | | | [place] [address] | | + + + + + Care Team Providers + +------+ + | Care Cooper Helper Name | Role | Phone | [...] | | | | | [place] [address] | | | | | | [phone] | | | | | | | [...] POINT | | | GLUCOSE, | ID: [id number]: | | OF CARE | | | POC | [id number] Rowena Williamson | | TESTING | | | |Intranet Specialist: [id number] Rowena Williamson | | | | | [...] [place]CMC POINT | | | GLUCOSE, | [id number]: | | OF CARE | | | POC | [id number] Rowena Williamson | | TESTING | | | |Intranet Specialist: [id number] Rowena Williamson | | | | | [...]
--- OUTSIDE RECORDS SUMMARY | ~2019-10-02 | XMS | Encounter Summary ---
Demographics + + + | Address | [address] [place] [address] | | | [place] [address] | + + + | Home Phone | | + + + | Preferred Language | Unknown | + + + | Marital Status | Single | + + + | Voodoo Affiliation | PEN | + + + [...] | | | | | [place] [address] | | + + + + + Care Team Providers + +------+ + | Care Commissary Assistant Name | Role | Phone | [...] POINT | | | GLUCOSE, | ID: [id number]: | | OF CARE | | | POC | [id number] Geraldo Wells | | TESTING | | | |Psychiatric Technician: [id number] Geraldo Wells | | | | | [...] POINT | | | GLUCOSE, | ID: [id number]: | | OF CARE | | | POC | [id number] Erik Salazar | | TESTING | | | |Psychiatric Technician: [id number] Erik Salazar | | | | | [...] POINT | | | GLUCOSE, | ID: [id number]: | | OF CARE | | | POC | [id number] Erik Salazar | | TESTING | | | |Psychiatric Technician: [id number] Erik Salazar | | | | | [...] [place] POINT | | | GLUCOSE, | [id number]: | | OF CARE | | | POC | [id number] Erik Salazar | | TESTING | | | |Psychiatric Technician: [id number] Erik Salazar | | | | | [...]
--- OUTSIDE RECORDS SUMMARY | ~2019-10-02 | XMS | Encounter Summary ---
Demographics + + + | Address | [address] | | | [place] [address] | + + + | Home Phone | | + + + | Preferred Language | Unknown | + + + | Marital Status | | + + + | Moravian Affiliation | 1038 | + + + | Race | Unknown | + + + | Ethnic Group | Unknown | + + + Author + + + | Author | [facility] | | | and [place] [...] [place] | | | | | [address] | | + + + + + Care Team Providers + +------+ + | Care Biomathematician Name | Role | Phone | + [...] Ted Navarro | | | | | [place], [place] | [place] | | | | | [address] | [address] | | | | | [phone] | [phone] | | | | | | | [...]
--- OUTSIDE RECORDS SUMMARY | ~2019-10-02 | XMS | Clinical Summary ---
Demographics + + + | Address | [address] [place] [address] | | | [place] [address] | + + + | Home Phone [...] Author + + + | Author | [facility] INPATIENT REV LOC | + + [...] [address] | | | | | [place] [address] | | + + + + + Care Team Providers + +------+ + | Care Brush Material Preparer Name | Role | Phone | + +------+ + | Romain Harrington MD | PCP | | + +------+ + Source Comments MANUEL is fully live on both [facility] and [facility] Allergies + + + + + [...] 0 | | | Activ | | 4-esd-rwa-fish oil | two times daily. | | [...] | INDUST | | [place] | | [id number] | ity | | | RIAL | | for | | [place], [place] | | | | ACCT | | all | | [address] | | | | CONTRA | | dates | | | | | | [place] | | | | | | + +--------+ +--------+ + +--------+ | [facility] | [place] | [phone] | Effect | [id number] | [address] | Agency | | ADMINISTRATION | COMMUN | | nat[place] | 8 | [address]35 | | | | ITY | | for | | [place], | | | | OUTSOU | | all | | [place] [address] | | | | RCE | | dates | | | | + +--------+ +--------+ + +--------+ | [facility] | [facility] | [phone] | Effect | [id number] | [address] | Agency | | ADMINISTRATION | NS | | natalie | 8 | 1035 | | | | ADMINI | | for | | [place], | | | | STRATI | | all | | [place] [address] | | | | ON | | [...] | | | | | | | [address] | | + +--------+ +--------+ + +--------+ [...] 1950 | [phone] | [place] [address] | | | john | | | 6 (Home) | | + +--------+ +--------+ + + | Sarthak Nelson | Person | Self | [birth year] | [address] | | | al/Fam | | 1950 | [phone] | [place] [address] | | | john | | | 6 (Home) | | + +--------+ +--------+ + + | [id number] | Indust | Other | 09/20/ | | DEVONTE Arizmendi 022955 | | | rial | | 1875 | | [place] | | | | | | | [address] | + +--------+ +--------+ + + | Sarthak Nelson | [place] | Self | [birth year] | | [address] | | | Sponso | | 1950 | [phone] | [place] [address] | | | red | | | 6 (Home) | | + +--------+ +--------+ + +"
--- OUTSIDE RECORDS SUMMARY | ~2019-10-02 | XMS | Encounter Summary ---
Demographics + + + | Address | [address] | | | [place] [address] | + + + | Home Phone [...] | [facility] [...] [place] | | | | | [address] | | + + + + + Care Team Providers + +------+ + | Care Software Solutions Architect Name | Role | Phone | + [...] Ted Navarro | | | | | [place], [place] | [place] | | | | | [address] | [address] | | | | | [phone] | [phone] | | | | | | | [...]
--- OUTSIDE RECORDS SUMMARY | ~2019-10-02 | XMS | Encounter Summary ---
Demographics + + + | Address | [address] [place] [address] | | | [place] [address] | + + + | Home Phone [...] | | | | | [place] [address] | | + + + + + Care Team Providers + +------+ + | Care Boom Stick Worker Name | Role | Phone | [...] | | | | Procedures | on [place] | [address] | | | | | PET SKULL | V A MEDICAL | [id number] | | | | | BASE TO | CENTER | [facility] | | | | | MID-THIGHS | [address] | [place], | | | | | | [place] | [place] [address] | | | | | | [address] | Phone: | | | | | | [place], | [phone] | | | | | | [place] [address] | Fax: | | | | | | Phone: | [phone] | | | | | | [phone] | | | | | | | Fax: | | | | | | | [phone] | | +--------+--------+ + + + + [...] Torres | | | | | | Frances/[id number] | | | | | | [facility] [place] | | | | [place] [address] | | | | | | [phone] | | | +--------+ + + + [...]
--- OUTSIDE RECORDS SUMMARY | ~2019-10-02 | XMS | Encounter Summary ---
Demographics + + + | Address | [address] | | | [place] [address] | + + + | Home Phone | | + + + | Preferred Language | Unknown | + + + | Marital Status | | + + + | Yazidi Affiliation | 1038 | + + + | Race | Unknown | + + + | Ethnic Group | Unknown | + + + Author + + + | Author | [facility] | | | and [place] | + + + | Organization | [facility] | | | and [place] | + + + | Address | Unknown | + + + | Phone | Unavailable | + + + Support + + + + + | Name | Relationship | Address | Phone | + + + + + | Aileen Nelson | ECON | [address] | | | | | [place] | | | | | [address] | | + + + + + Care Team Providers + +------+ + | Care Mold Injector Name | Role | Phone | + +------+ + | Jericho Cao MD | PCP | | + +------+ + Encounter Details +--------+ + + + + | Date | Type | Department | Care Team | Description | +--------+ + + + + | 07/01/ | Hospital | [facility] | Asaf Parra, | | | 2018 | Encounter | MED CTR THERAPY OT | [place], | | | | | ACUTE [address] | [place] | | | | | [place] | | | | | | [address] | | | | | | [phone] | | | +--------+ + + + [...] + + +---------+ + + | Saw Metz 450 | Take 900 mg by mouth | | 0 | | | | MG CAPS | 2 times daily. | | | | | + + + +---------+ + + documented as of this encounter Plan of Treatment Not on filedocumented as of this encounter Visit Diagnoses Not on filedocumented in this encounter"
--- OUTSIDE RECORDS SUMMARY | ~2019-10-02 | XMS | Encounter Summary ---
Demographics + + + | Address | [address] [place] [address] | | | [place] [address] | + + + | Home Phone [...] | | | | | [place] [address] | | + + + + + Care Team Providers + +------+ + | Care Stick Roller Name | Role | Phone | + +------+ + PCP | Unavailable | + +------+ + Encounter Details +--------+ + + + + | Date | Type | Department | Care Team | Description | +--------+ + + + + | 01/19/ | Hospital | Dermatopathology | | | | 2011 | Encounter | [address] | | | | | | Mailcode: CH16D | | | | | | [facility] | | | | | | and Healing, | | | | | | Building [address], | | | | | | Floor [place], [place] | | | | | | [address] | | | | | | [phone] | | | +--------+ + + + [...] | | | | | analysis ([facility], | | | | | | [id number],02/16/12): [...] CD10 | | | | | | [id number] CD14 CD15 CD16 | | | | | | CD19 CD20 CD25 [id number] | | | | | | CD38 CD45 CD56 CD58 | | | | | | CD64 CD71 [id number] | | | | | | sKappa sLambda | | | | | | HLA-DR CD57 CD94 | | | | | | [id number] | | | | | | [id number] | | | | | | [id number] (Analyte | | | | | | specific reagents are | | | | | | used in many laboratory | | | | | | tests necessary | | | | | | [facility] | | | | | | and [...] Medical | | | | | | [place], [place] | | | | | | [...] | + + + + + | [facility] | [address] | [place] [address] | | | PATHOLOGY | [address] [...] | | | | of [facility] back for | | | | [...] + + | [facility] | Mailcode MAC5D, [address] | [place] [address] | | | DERMATOPATHOLOGY | [address] | | | + + + + + documented in this encounter Visit Diagnoses Not on filedocumented in this encounter"
--- OUTSIDE RECORDS SUMMARY | ~2019-10-02 | XMS | Encounter Summary ---
Demographics + + + | Address | [address] | | | [place] [address] | + + + | Home Phone | | + + + | Preferred Language | Unknown | + + + | Marital Status | | + + + | Cheondoism Affiliation | 1038 | + + + | Race | Unknown | + + + | Ethnic Group | Unknown | + + + Author + + + | Author | [facility] | | | and [place] | + + + | Organization | [facility] | | | and [place] | + + + | Address | Unknown | + + + | Phone | Unavailable | + + + Support + + + + + | Name | Relationship | Address | Phone | + + + + + | Aileen Nelson | ECON | [address] | | | | | [place] | | | | | [address] | | + + + + + Care Team Providers + +------+ + | Care Aircraft Parts Assembler Name | Role | Phone | [...] Ted Navarro | | | | | [place], [place] | [place] | | | | | [address] | [address] | | | | | [phone] | [phone] | | | | | | | [...]
--- OUTSIDE RECORDS SUMMARY | ~2019-10-02 | XMS | Clinical Summary ---
Demographics + + + | Address | [place] [address] | + + + | Home Phone | | + + + | Preferred Language | Unknown | + + + | Marital Status | Unknown | + + + | Quaker Affiliation | Unknown | + + + | Race | Unknown | + + + | Ethnic Group | Unknown | + + + Author + + + | Author | [employer] (Historical as of | | | 05-06-19) | + + + | Organization | [employer] (Historical as of | | | 05-06-19) | + + + | Address | Unknown | + + + | Phone | Unavailable | + + + Care Team Providers + +------+ + | Care Salesperson Books Name | Role | Phone | + [...]
--- OUTSIDE RECORDS SUMMARY | ~2019-10-02 | XMS | Encounter Summary ---
Demographics + + + | Address | [address] [place] [address] | | | [place] [address] | + + + | Home Phone | | + + + | Preferred Language | Unknown | + + + | Marital Status | Single | + + + | Pentecostalism Affiliation | PEN | + + + [...] | | | | | [place] [address] | | + + + + + Care Team Providers + +------+ + | Care Auctioneer Automobile Name | Role | Phone | + +------+ + PCP | Unavailable | + +------+ + Encounter Details +--------+ + + + + | Date | Type | Department | Care Team | Description | +--------+ + + + + | 01/19/ | Hospital | Dermatopathology | | | | 2011 | Encounter | [address] | | | | | | Mailcode: CH16D | | | | | | [facility] | | | | | | and Healing, | | | | | | Building 1, | | | | | | Floor [place], [place] | | | | | | [address] | | | | | | [phone] | | | +--------+ + + + [...] | | | | | | analysis ([facility], | | | | | | [id number],02/16/12): [...] CD10 | | | | | | [id number] CD14 CD15 CD16 | | | | | | CD19 CD20 CD25 [id number] | | | | | | CD38 CD45 CD56 CD58 | | | | | | CD64 CD71 [id number] | | | | | | sKappa sLambda | | | | | | HLA-DR CD57 CD94 | | | | | | [id number] | | | | | | [id number] | | | | | | [id number] (Analyte | | | | | | specific reagents are | | | | | | used in many laboratory | | | | | | tests necessary | | | | | | [facility] | | | | | | [...] Medical | | | | | | [place], [place] | | | | | | [...] | + + + + + | [facility] | [address] | [place] [address] | | | PATHOLOGY | [address] [...] + + | [facility] | Mailcode MAC5D, [address] | [place] [address] | | | DERMATOPATHOLOGY | [address] | | | + + + + + documented in this encounter Visit Diagnoses Not on filedocumented in this encounter"
--- OUTSIDE RECORDS SUMMARY | ~2019-10-02 | XMS | Encounter Summary ---
Demographics + + + | Address | [address] | | | [place] [address] | + + + | Home Phone | | + + + | Preferred Language | Unknown | + + + | Marital Status | | + + + | Holiness Affiliation | 1038 | + + + | Race | Unknown | + + + | Ethnic Group | Unknown | + + + Author + + + | Author | [facility] | | | and [place] | + + + | Organization | [facility] | | | and [place] | + + + | Address | Unknown | + + + | Phone | Unavailable | + + + Support + + + + + | Name | Relationship | Address | Phone | + + + + + | Aileen Nelson | ECON | [address] | | | | | [place] | | | | | [address] | | + + + + + Care Team Providers + +------+ + | Care Vet Assistant Name | Role | Phone | [...] Ted Navarro | | | | | [place], [place] | [place] | | | | | [address] | [address] | | | | | [phone] | [phone] | | | | | | | [...] | | | | | | [facility] | | | | | [facility] | | | | | | WIN[place]. IT HAS NOT BEEN | | | [...]
--- OUTSIDE RECORDS SUMMARY | ~2019-10-02 | XMS | Encounter Summary ---
Demographics + + + | Address | [address] | | | [place] [address] | + + + | Home Phone | | + + + | Preferred Language | Unknown | + + + | Marital Status | | + + + | Shinto Affiliation | 1038 | + + + | Race | Unknown | + + + | Ethnic Group | Unknown | + + + Author + + + | Author | [facility] | | | and [place] | + + + | Organization | [facility] | | | and [place] | + + + | Address | Unknown | + + + | Phone | Unavailable | + + + Support + + + + + | Name | Relationship | Address | Phone | + + + + + | Aileen Nelson | ECON | [address] | | | | | [place] | | | | | [address] | | + + + + + Care Team Providers + +------+ + | Care Hot Air Furnace Installer And Repairer Name | Role | Phone | [...] Ted Navarro | | | | | [place], [place] | [place] | | | | | [address] | [address] | | | | | [phone] | [phone] | | | | | | | [...]
--- OUTSIDE RECORDS SUMMARY | ~2019-10-02 | XMS | Encounter Summary ---
Demographics + + + | Address | [address] | | | [place] [address] | + + + | Home Phone | | + + + | Preferred Language | Unknown | + + + | Marital Status | | + + + | Pentecostal Affiliation | 1038 | + + + | Race | Unknown | + + + | Ethnic Group | Unknown | + + + Author + + + | Author | [facility] | | | and [place] | + + + | Organization | [facility] | | | and [place] | + + + | Address | Unknown | + + + | Phone | Unavailable | + + + Support + + + + + | Name | Relationship | Address | Phone | + + + + + | Aileen Nelson | ECON | [address] | | | | | [place] | | | | | [address] | | + + + + + Care Team Providers + +------+ + | Care Manager Ems Name | Role | Phone | + [...] | [address] | [address] | | | | | [place], [place] | [place] | | | | | [address] | [address] | | | | | [phone] | [phone] | | | | | | | [...]
--- OUTSIDE RECORDS SUMMARY | ~2019-10-02 | XMS | Encounter Summary ---
Demographics + + + | Address | [address] [place] [address] | | | [place] [address] | + + + | Home Phone [...] | | | | | [place] [address] | | + + + + + Care Team Providers + +------+ + | Care Log Roper Name | Role | Phone | + [...] [address] | | | | | | [facility] [address] | | | | | | [phone] | | | | | | | [...] | + + + + + | MAUNEL | [address] | [place] [address] | | | DERMATOPATHOLOGY | [address] | | | + + + + + documented in this encounter Visit Diagnoses Not on filedocumented in this encounter"
--- OUTSIDE RECORDS SUMMARY | ~2019-10-02 | XMS | Encounter Summary ---
Demographics + + + | Address | [address] [place] [address] | | | [place] [address] | + + + | Home Phone [...] Author + + + | Author | [facility] | + + + | Organization | [facility] | + + + | Address | Unknown | + + + | Phone | Unavailable | + + + Support + + + + + | Name | Relationship | Address | Phone | + + + + + | Aileen Nelson | ECON | [address] | | | | | [place] [address] | | + + + + + Care Team Providers + +------+ + | Care Jig Inspector Name | Role | Phone | [...] [place] | | | | | [address] | [address] | | | | | | [phone] | | | | | | | [...] Edmond Estes MD - 05/10/2015 6:00 PM [facility] PROGRESS NOTE [address] [place] [address] SARTHAK NELSON DATE OF SERVICE: 05/10/2015 TIME [...] here to the ER or to the [place] [facility]. GIANCARLO/Sylvie /[id number] Electronically Signed 05/22/15 1228 MD MANOJ Cantu EDWARD E [id number] : 50 [id number] ADMIT DATE: 05/04/15 DISCHARGE DATE: 05/10/15 Edmond Wood MD - 05/09/2015 9:54 PM [facility] PROGRESS NOTE [address] [place] [address] SARTHAK NELSON HISTORY UPDATE: Mr. Nelson was [...] has been in discussion with at the [place] in [place]. I do not see any need for [...] infect a sterile fluid collection. MM/SARTHAK Sánchez [id number] : 50 [id number] ADMIT DATE: 05/04/15 DISCHARGE DATE: /[id number] Electronically Signed 05/10/15 0814 MD MANOJ Cantu EDWARD E [id number] : 50 [id number] ADMIT DATE: 05/04/15 DISCHARGE DATE: Bruno Ramirez MD - 05/09/2015 4:01 PM [facility] PROGRESS NOTE [address] [place] [address] SARTHAK NELSON DATE OF SERVICE: 05/09/2015 ASSESSMENT [...] get closer to within normal limits. ILL/MedQ /[id number] Electronically Signed 05/10/15 0715 MD MANOJ Abbott EDWARD E [id number] : 50 [id number] ADMIT DATE: 05/04/15 DISCHARGE DATE: Bruno Ramirez MD - 05/09/2015 3:54 PM [facility] PROG RESS NOTE [address] [place] [address] SARTHAK NELSON DATE OF SERVICE: 05/09/2015 24-HOUR [...] was working because once the SARTHAK NELSON [id number] : 50 [id number] ADMIT DATE: 05/04/15 DISCHARGE DATE: ceftriaxone was [...] recent urinalysis, specifically on 04/18/2015 at the [place], and this was of 100,000 colony-forming units. [employer] does cover for this. In addition, in speaking with Alaina Malik, the infectious disease lead clinical at the [place], she stated that this will also cover [...] of a dime with minimal SARTHAK NELSON [id number] : 50 [id number] ADMIT DATE: 05/04/15 DISCHARGE DATE: anguinous seepage. Will monitor. 9. Deep venous thrombosis prophylaxis. On warfarin currently. ILL/MedQ /[id number] Electronically Signed 05/10/15 0715 MD MANOJ Abbott EDWARD E [id number] : 50 [id number] ADMIT DATE: 05/04/15 DISCHARGE DATE: Bruno Ramirez MD - 05/08/2015 6:59 PM [facility] PROG RESS NOTE [address] [place] [address] SARTHAK NELSON DATE OF SERVICE: 05/08/2015 24-HOUR [...] that was isolated on 04/18/2015 at the [place] from a urine culture growing more than 100,000 colony-forming units. In addition, speaking to Alaina Malik, who is the [place] lead clinical there, since the patient's infectious disease specialist, Dr. Cait Peres, is on vacation, stated to also cover for gonorrhea that could be circulating in the community. Even though I stated the patient has not had SARTHAK NELSON [id number] : 50 [id number] ADMIT DATE: 05/04/15 DISCHARGE DATE: sexual intercourse [...] 3. Baseline creatinine is 1.9 as per [place] records. Currently his creatinine is 1.7, we [...] today, the infectious disease clinician at the [place] (phone number is [phone]). Prior to this, also tried calling Jennifer, another HIV distribution sales representative at the [place], at [phone], and left a message. 3. Also called Martin Stokes, of infectious diseases at [facility], at [phone]. The conversation initially was started with Martin Stokes, who [facility], specifically, Alaina Malik, who in turn contacted me. ILL/MedQ /[id number] Electronically Signed 05/09/15 0700 MD MANOJ Abbott EDWARD E [id number] : 50 [id number] ADMIT DATE: 05/04/15 DISCHARGE DATE: Bruno Ramirez MD - 05/07/2015 4:09 PM [facility] PROG RESS NOTE [address] [place] [address] SARTHAK NELSON DATE OF SERVICE: 05/07/2015 24-HOUR [...] If not, then we will SARTHAK NELSON [id number] : 50 [id number] ADMIT DATE: 05/04/15 DISCHARGE DATE: consider getting [...] with oral antibiotic before considering discharge. ILL/MedQ /[id number] Electronically Signed 05/08/15 1058 MD MANOJ Abbott EDWARD E [id number] : 50 [id number] ADMIT DATE: 05/04/15 DISCHARGE DATE: Bruno Ramirez MD - 05/07/2015 3:21 PM [facility] PROG RESS NOTE [address] [place] [address] NELSONSARTHAK TEMPLE CONTINUATION: Chronic kidney disease stage III. Baseline creatinine is 1.9. This is from review of [place] records. ILL/MedQ /[id number] Electronically Signed 05/08/15 1058 Bruno Gray MD SARTHAK NELSON [id number] : 50 [id number] ADMIT DATE: 05/04/15 DISCHARGE DATE: Abad Barraza MD - 05/07/2015 1:44 PM [facility] PROGRESS NOTE [address] [place] [address] NELSONCHERYLLUIS Morales CURRENT PROBLEM: Right epididymitis. HISTORY [...] in [facility] or at the [facility] Urology Department-where he is an established patient. We will follow him on a p.r.n. basis during the remainder his hospitalization. GAG/MedQ /[id number] Electronically Signed 05/23/15 0728 MD MANOJ Gomez EDWARD E [id number] : 50 [id number] ADMIT DATE: 05/04/15 DISCHARGE DATE: 05/10/15 Bruno Ramirez MD - 05/06/2015 11:19 AM [facility] PROGRESS NOTE [address] [place] [address] SARTHAK NELSON DATE OF SERVICE: 05/06/2015 24-HOUR [...] morning before considering discharge. ILL/MedQ SARTHAK NELSON [id number] : 50 [id number] ADMIT DATE: 05/04/15 DISCHARGE DATE: /[id number] Electronically Signed 05/07/15 0700 MD MANOJ Abbott EDWARD E [id number] : 50 [id number] ADMIT DATE: 05/04/15 DISCHARGE DATE: [facility] - 05/05/2015 9:07 PM [facility] PROGRESS NOTE [address] [place] [address] SARTHAK NELSON DATE OF SERVICE: 05/05/2015 BRIEF HISTORY: A 64-year-old gentleman with multiple comorbidities who is followed through the [place]. He has HIV and reports [...] Disposition: Likely home tomorrow. DC/MedQ SARTHAK NELSON [id number] : 50 [id number] ADMIT DATE: 05/04/15 DISCHARGE DATE: /[id number] Electronically Signed 05/06/15 1037 MD MANOJ Vu EDWARD E [id number] : 50 [id number] ADMIT DATE: 05/04/15 DISCHARGE DATE: [facility] Edmond franco MD - 05/05/2015 1:12 PM [facility] PROGRESS NOTE [address] [place] [address] SARTHAK NELSON DATE OF SERVICE: 05/05/2015 EVENTS [...] Urology can be contacted to re-consult. MM/MedLoulou /[id number] Electronically Signed 05/10/15 0813 MD MANOJ Cantu EDWARD E [id number] : 50 [id number] ADMIT DATE: 05/04/15 DISCHARGE DATE: [facility] Edmond gray MD - 05/05/2015 10:45 AM [facility] CONSULTATI ON [address] [place] [address] SARTHAK NELSON DATE OF CONSULTATION: 05/04/2015 REQUESTING PHYSICIAN(S): Kym Valdez M.D. TREATING PHYSICIAN: Ghanshyam aRymond MD PRIMARY CARE PROVIDER: Romain Harrington M.D. [...] scrotum is enlarged bilaterally, and SARTHAK NELSON [id number] : 50 [id number] ADMIT DATE: 05/04/15 on the left side [...] of this patient. Urology will follow. GIANCARLO/MedLoulou /[id number] Electronically Signed 05/10/15 0813 MD MANOJ CantuSARTHAK [id number] : 50 [id number] ADMIT DATE: 05/04/15 Ghanshyam Kelly MD - 05/04/2015 6:48 PM [facility] PROGRESS NOTE [address] [place] [address] NELSON,SARTHAK Morales BRIEF HISTORY: A 64-year-old gentleman [...] 8. Disposition: Continue inpatient care. SARTHAK NELSON [id number] : 50 [id number] ADMIT DATE: 05/04/15 DISCHARGE DATE: Damián /[id number] Electronically Signed 05/06/15 1036 MD MANOJ Vu EDWARD E [id number] : 50 [id number] ADMIT DATE: 05/04/15 [facility] Plan of Treatment Not on filedocumented as of this encounter Visit Diagnoses Not on filedocumented in this encounter"
--- OUTSIDE RECORDS SUMMARY | ~2019-10-02 | XMS | Encounter Summary ---
Demographics + + + | Address | [address] [place] [address] | | | [place] [address] | + + + | Home Phone [...] | | | | | [place] [address] | | + + + + + Care Team Providers + +------+ + | Care Helminthologist Name | Role | Phone | + [...] [place] | | | | | | [address] | | | | | | [phone] | | | | | | | [...] POINT | | | GLUCOSE, | ID: [id number]: | | OF CARE | | | POC | [id number] Davi Diop | | TESTING | | | |Flight Operations Dispatch Clerk: [id number] Davi Diop | | | | | [...] [place] POINT | | | GLUCOSE, | [id number]: | | OF CARE | | | POC | [id number] Linsey Peñaloza | | TESTING | | | |Flight Operations Dispatch Clerk: [id number] Linsey Peñaloza | | | | | [...] POINT | | | GLUCOSE, | ID: [id number]: | | OF CARE | | | POC | [id number] Linsey Peñaloza | | TESTING | | | |Flight Operations Dispatch Clerk: [id number] Linsey Peñaloaz | | | | | | | [...] POINT | | | GLUCOSE, | ID: [id number]: | | OF CARE | | | POC | [id number] Linsey Peñaloza | | TESTING | | | |Flight Operations Dispatch Clerk: [id number] Linsey Peñaloza | | | | | [...] POINT | | | GLUCOSE, | ID: [id number]: | | OF CARE | | | POC | [id number] Jesse Ivey | | TESTING | | | |Flight Operations Dispatch Clerk: [id number] Jesse Ivey | | | | | [...]
--- OUTSIDE RECORDS SUMMARY | ~2019-10-02 | XMS | Encounter Summary ---
Demographics + + + | Address | [address] | | | [place] [address] | + + + | Home Phone [...] | Author | [facility] | | | and [...] [place] | | | | | [address] | | + + + + + Care Team Providers + +------+ + | Care Elevator Supervisor Name | Role | Phone | [...] Ted Navarro | | | | | [place], [place] | [place] | | | | | [address] | [address] | | | | | [phone] | [phone] | | | | | | | [...]
--- OUTSIDE RECORDS SUMMARY | ~2019-10-02 | XMS | Encounter Summary ---
Demographics + + + | Address | [address] [place] [address] | | | [place] [address] | + + + | Home Phone [...] Author + + + | Author | [facility] | + + + | Organization | [facility] | + + + | Address | Unknown | + + + | Phone | Unavailable | + + + Support + + + + + | Name | Relationship | Address | Phone | + + + + + | Aileen Nelson | ECON | [address] | | | | | [place] [address] | | + + + + + Care Team Providers + +------+ + | Care Colleter Name | Role | Phone | + [...] | Referral | Radiology at [facility] | MD DIONNE Oates | | | | Order | [address] [facility] [address] | [facility] [address] | | | | | Loop Mailcode: | [address] | | | | | [address] Physician's | [facility], | | | | | [facility], | [place] [address] | | | | | [place] [address] | [phone] | | | | | [phone] | | | +--------+ + + + [...]
--- OUTSIDE RECORDS SUMMARY | ~2019-10-02 | XMS | Clinical Summary ---
Demographics + + + | Address | [address] [place] [address] | | | [place] [address] | + + + | Home Phone [...] Author + + + | Author | [facility] INPATIENT REV LOC | + + + [...] | | | | | [place] [address] | | + + + + + Care Team Providers + +------+ + | Care Java Programmer Analyst Name | Role | Phone | + +------+ + | Romain Harrington MD | PCP | | + +------+ + Source Comments MANUEL is fully live on both [facility] Ambulatory and [facility] Allergies + + + [...] 0 | | | Activ | | 6-ylg-ujn-fish oil | two times daily. | | [...] | INDUST | | natalie | | 793508 | ity | | | RIAL | | for | | [place], [place] | | | | ACCT | | all | | [address] | | | | CONTRA | | dates | | | | | | [place] | | | | | | + +--------+ +--------+ + +--------+ | [place] | [place] | xxxxxxxxx | Effect | [id number] | [address] | Agency | | ADMINISTRATION | COMMUN | | natalie | 8 | [address]35 | | | | ITY | | for | | [place], | | | | OUTSOU | | all | | [place] [address] | | | | RCE | | dates | | | | + +--------+ +--------+ + +--------+ | VETERANS | VETERA | [phone] | Effect | [id number] | [address] | Agency | | ADMINISTRATION | NS | | natalie | 8 | 1035 | | | | ADMINI | | for | | [place], | | | | STRATI | | all | | [place] [address] | | | | ON | | [...] | | | | | | | [address] | | + +--------+ +--------+ + +--------+ [...] 1950 | [phone] | [place] [address] | | | john | | | 6 (Home) | | + +--------+ +--------+ + + | Sarthak Nelson | Person | Self [birth year] | [address] | | | al/Fam | | 1950 | [phone] | [place] [address] | | | john | | | 6 (Home) | | + +--------+ +--------+ + + | [id number] | Indust | Other | 09/20/ | | DEVONTE Arizmendi 234930 | | | rial | | 1875 | | [place] | | | | | | | [address] | + +--------+ +--------+ + + | Sarthak Nelson | [place] | Self | [birth year] | [address] | | | Sponso | | 1950 | [phone] | [place] [address] | | | red | | | 6 (Home) | | + +--------+ +--------+ + +"
--- OUTSIDE RECORDS SUMMARY | ~2019-10-02 | XMS | Encounter Summary ---
Demographics + + + | Address | [address] | | | [place] [address] | + + + | Home Phone | | + + + | Preferred Language | Unknown | + + + | Marital Status | | + + + | Denominational Affiliation | 1038 | + + + | Race | Unknown | + + + | Ethnic Group | Unknown | + + + Author + + + | Author | [facility] | | | and [place] | + + + | Organization | [facility] | | [...] [place] | | | | | [address] | | + + + + + Care Team Providers + +------+ + | Care Sack Sorter Name | Role | Phone | + [...] Ted Navarro | | | | | [place], [place] | [place] | | | | | [address] | [address] | | | | | [phone] | [phone] | | | | | | | [...]
--- OUTSIDE RECORDS SUMMARY | ~2019-10-02 | XMS | Encounter Summary ---
Demographics + + + | Address | [address] | | | [place] [address] | + + + | Home Phone | | + + + | Preferred Language | Unknown | + + + | Marital Status | | + + + | Nondenominational Affiliation | 1038 | + + + | Race | Unknown | + + + | Ethnic Group | Unknown | + + + Author + + + | Author | [facility] | | | and [place] | + + + | Organization | [facility] | | | and [place] | + + + | Address | Unknown | + + + | Phone | Unavailable | + + + Support + + + + + | Name | Relationship | Address | Phone | + + + + + | Aileen Nelson | ECON | [address] | | | | | [place] | | | | | [address] | | + + + + + Care Team Providers + +------+ + | Care Order Entry Specialist Name | Role | Phone | [...] Ted Navarro | | | | | [place], [place] | [place] | | | | | [address] | [address] | | | | | [phone] | [phone] | | | | | | | [...]
--- OUTSIDE RECORDS SUMMARY | ~2019-10-02 | XMS | Encounter Summary ---
Demographics + + + | Address | [address] [place] [address] | | | [place] [address] | + + + | Home Phone [...] | | | | | [place] [address] | | + + + + + Care Team Providers + +------+ + | Care Senior Security Analyst Name | Role | Phone | [...] [place] | | | | | | [address] | | | | | | [phone] | | | | | | | [...]
--- OUTSIDE RECORDS SUMMARY | ~2019-10-02 | XMS | Encounter Summary ---
Demographics + + + | Address | [address] [place] [address] | | | [place] [address] | + + + | Home Phone [...] | | | | | [place] [address] | | + + + + + Care Team Providers + +------+ + | Care Video Manager Name | Role | Phone | [...] | 2009 | Referral | Services at [facility] | [facility] | | | | Order | [address] [facility] [id number] | | | | | Nayely An Mailcode: | [address] | | | | | [address] [facility] | [place] [address] | | | | | [place], [place] | [phone] | | | | | [address] | | | | | | [phone] | | | +--------+ + + + [...]
--- OUTSIDE RECORDS SUMMARY | ~2019-10-02 | XMS | Encounter Summary ---
Demographics + + + | Address | [address] [place] [address] | | | [place] [address] | + + + | Home Phone [...] | | | | | [place] [address] | | + + + + + Care Team Providers + +------+ + | Care Plugger Name | Role | Phone | + +------+ + PCP | Unavailable | + +------+ + Encounter Details +--------+ + + + + | Date | Type | Department | Care Team | Description | +--------+ + + + + | 10/13/ | Hospital | Diagnostic Imaging | | | | 2009 | Encounter | Services at [facility] | | | | | | [address] | | | | | | [place] Mailcode: | | | | | | [address] [facility] | | | | | | [place], [place] | | | | | | [address] | | | | | | [phone] | | | +--------+ + + + [...]
--- OUTSIDE RECORDS SUMMARY | ~2019-10-02 | XMS | Encounter Summary ---
Demographics + + + | Address | [address] [place] [address] | | | [place] [address] | + + + | Home Phone [...] | | | | | [place] [address] | | + + + + + Care Team Providers + +------+ + | Care Carrot Buncher Name | Role | Phone | + [...] [place] | | | | | | [address] | | | | | | [phone] | | | | | | | [...] POINT | | | GLUCOSE, | ID: [id number]: | | OF CARE | | | POC | [id number] Jesse Ivey | | TESTING | | | |Decal Maker: [id number] Jesse Ivey | | | | | [...] POINT | | | GLUCOSE, | ID: [id number]: | | OF CARE | | | POC | [id number] John Goyal | | TESTING | | | |Decal Maker: [id number] John Goyal | | | | | [...] POINT | | | GLUCOSE, | ID: [id number]: | | OF CARE | | | POC | [id number] John Goyal | | TESTING | | | |Decal Maker: [id number] John Goyal | | | | | [...] POINT | | | GLUCOSE, | ID: [id number]: | | OF CARE | | | POC | [id number] John Goyal | | TESTING | | | |Decal Maker: [id number] John Goyal | | | | | [...] POINT | | | GLUCOSE, | ID: [id number]: | | OF CARE | | | POC | [id number] Linsey Peñaloza | | TESTING | | | |Decal Maker: [id number] Linsey Anabela | | | | | [...] POINT | | | GLUCOSE, | ID: [id number]: | | OF CARE | | | POC | [id number] Jesse Ivey | | TESTING | | | |Decal Maker: [id number] Jesse Ivey | | | | | [...] POINT | | | GLUCOSE, | ID: [id number]: | | OF CARE | | | POC | [id number] Davijasvir Diop | | TESTING | | | |Decal Maker: [id number] Davi Diop | | | | | [...]
--- OUTSIDE RECORDS SUMMARY | ~2019-10-02 | XMS | Encounter Summary ---
Demographics + + + | Address | [address] [place] [address] | | | [place] [address] | + + + | Home Phone [...] | | | | | [place] [address] | | + + + + + Care Team Providers + +------+ + | Care Various Exceptionalities Teacher Name | Role | Phone | + +------+ + PCP | Unavailable | + +------+ + Encounter Details +--------+ + + + + | Date | Type | Department | Care Team | Description | +--------+ + + + + | 05/07/ | Results | NON-[facility] | Ford Robison OD | | | 2014 | Only | Department | [place] [facility] [address] | | | | | | [address] [place] | | | | | | [place] [address] | | | | | | [phone] | | | | | | | [...] POINT | | | GLUCOSE, | ID: [id number]: | | OF CARE | | | POC | [id number] Francoise LaRchanda | | TESTING | | | |Pricing Coordinator: [id number] Brasrey LaRchanda | | | | | [...] POINT | | | GLUCOSE, | ID: [id number]: | | OF CARE | | | POC | [id number] Hochmayr | | TESTING | | | [...] POINT | | | GLUCOSE, | ID: [id number]: | | OF CARE | | | POC | [id number] Hochmayr | | TESTING | | | [...]
[~2019-10-02 12:01] MED LIST changes: +ASPIRIN81 MG PO; +FISH OIL 1,0001 EAC2 PO; +GLIPIZIDE5 MG PO; +MULTI VITAMIN1 EACH PO; +SAW PALMETTO450 MG PO; +TOPROL XL25 MG PO
--- OUTSIDE RECORDS SUMMARY | 2019-10-02 12:04 | XMS ---
PreManage Notification: ALEN ARANDA Security Shoe Planner Events No recent Security Events currently on file CRITERIA MET - Group Notification - [facility] CARE PROVIDERS Ricardo Mcneil DO [facility] Current PHONE: Unknown IHSAN BURTON [facility] 05/17/2015-Current PHONE: Unknown Jericho Dye [facility] 06/20/2018-Current PHONE: [phone] DR JERICHO DYE Primary [facility] Current PHONE: [phone] Ricardo Mcneil Current PHONE: Unknown Anuel Brown - Case or Orthotic/Prosthetic Practitioner Current [facility] PHONE: [phone] [facility] 05/17/2015-Current Out [facility] PHONE: [phone] IHSAN BURTON 05/17/2015-Current PHONE: [phone] ESPERANZA GUILLEN [facility] PHONE: Unknown Wyatt has no Care Guidelines for this patient. Care History Medical/Surgical 05/01/2019 [facility] - PATIENT IS A - RECEIVES MEDICAL SERVICES FROM [facility] IN [place], [place]- PCP JERICHO ROMANO E.D. VISIT COUNT (12 MO.) 4 [facility]. TOTAL 4 NOTE: Visits indicate total known visits. ED/UCC VISIT TRACKING (12 MO.) 10/02/2019 12:02 [facility] [place] TYPE: Emergency COMPLAINT: - FALL, RIB PAIN 08/11/2019 15:01 [facility] [place] TYPE: Emergency COMPLAINT: - STROKE LIKE SYMPTOMS 06/20/2019 16:37 [facility] [place] TYPE: Emergency COMPLAINT: - URINE PROBLEM DIAGNOSES: - Allergy status to penicillin - Heart failure, unspecified - Urinary tract infection, site not specified - Other prison (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 - [facility] (current) use of insulin - Other nonmedicinal substance allergy status - 1 Type 2 diabetes mellitus without complications - Hypertensive heart disease with heart failure - Allergy status to sulfonamides status - Personal history of nicotine dependence 04/30/2019 15:34 [facility] [place] TYPE: Emergency COMPLAINT: - TOE INJURY INPATIENT VISIT TRACKING (12 MO.) 08/11/2019 15:02 [facility] [place] TYPE: Observation COMPLAINT: - CVA DIAGNOSES: - [facility] (current) use of anticoagulants - Other extermination supervisor (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 - Slurred speech - Heart failure, unspecified - Patient's other noncompliance with medication regimen - 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 - Personal history of nicotine dependence - Presence of cardiac pacemaker - Facial weakness - Chronic atrial fibrillation, unspecified - Cerebral infarction, unspecified - Asymptomatic human immunodeficiency virus infection status - NIHSS score 16 - Hypertensive heart disease with heart failure - Allergy status to penicillin - Allergy status to sulfonamides status - 1 Type 2 diabetes mellitus without complications - Prsnl hx of TIA (TIA), and cereb infrc w/o resid deficits 04/30/2019 21:19 [facility] [place] TYPE: Medical Surgical COMPLAINT: - DIABETIC FOOT INFECTION DIAGNOSES: - 1 Type 2 diabetes mellitus with hyperglycemia - Allergy status to penicillin - Unspecified mood [affective] disorder - [facility] (current) use of insulin - Other obesity - 1 Type 2 diabetes mellitus w diabetic chronic kidney disease - Chronic atrial fibrillation - Carrier of other specified bacterial diseases - Carrier of other specified bacterial diseases - termite inspector (current) use of opiate analgesic - Cellulitis [...] polyneuropathy - Allergy status to penicillin - [facility] (current) use of opiate analgesic - Blister [...] midft lmt to brkdwn skin - Other prison (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 - 1 Hyp hrt \T\ chr kdny dis w hrt fail and stg 1-4/unsp chr kdny - 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 - Non-prs chronic [...] diabetic peripheral angiopath w/o gangren - Other extermination supervisor (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 - Urinary tract infection, site not specified - [facility] (current) use of anticoagulants - [facility] (current) use of anticoagulants [email or web address]
[2019-10-02] MEDS ORDERED: PERCOCET 5-3251 EACH PO (19:31)
--- NOTE | 2019-10-04 12:08 | CONS ---
[facility] [address], [place] [address] Signed DATE OF CONSULTATION: 10/02/2019 CONSULTING PHYSICIAN: Elisha March MD. REQUESTING PHYSICIAN: Misha Ngo DO. PROBLEM: Left chest wall pain and rib fractures. HISTORY: This 68-year-old morbidly obese white man with numerous medical problems including obesity, oxygen-dependent COPD, and venous stasis disease. Five days ago in his home, fell over and impacted his left chest wall with a five gallon bucket that was in his home. This caused pain. He presented to the emergency room where he was evaluated by Dr. Ngo. The patient had no acute findings per se, but did undergo a CT scan of the chest, abdomen, and pelvis. This demonstrated no sign of intraabdominal or intrathoracic injury specifically pneumothorax, effusion, pulmonary contusion or splenic injury, but did show findings of acute rib fracture in the left lateral 6th, 7th, and 8th ribs. The 6th rib fracture slightly displaced but the others are completely nondisplaced. There are 9th and 10th rib fractures that are nondisplaced may be old unlikely new. There is a nonunion of 11th rib fracture in the past. The patient suffered a blunt trauma as a child requiring chest wall stabilization by external means (wraparound tape by the sounds of it). There were findings of multiple splenules suggestive of prior such injury. The patient has had no specific treatment for the chest wall pain of any sort at home. He recently was placed on home oxygen based on an outpatient test by his provider at [facility]. His lab studies showed a hematocrit of 51.1, white count 13.6, and platelets of 296,000. Chem profile showed a creatinine of 1.82 and glucose of 168. Troponin less than 0.01. BNP of 149. Potassium of 5.0. I reviewed the CT scans myself and reviewed the results with Dr. Mireles verbally. REVIEW OF SYSTEMS: He denies any neck pain or abdominal pain. He does have some left lateral chest wall pain. He has no trouble breathing particularly. Nasal cannula oxygen is in place at this time. PHYSICAL EXAMINATION: Electronically Signed By: ELISHA MARCH MD 10/04/19 1208 PATIENT NAME: ALEN ARANDA CONSULTATION DATE OF : 50 REPORT #: [id number] PHYSICIAN: ELISHA MARCH MD PCP: COSME DYE MD REPORT IS CONFIDENTIAL AND NOT TO BE RELEASED WITHOUT AUTHORIZATION [facility] [address], [place] [address] Signed GENERAL: A plethoric, pleasant white man who does not look to be in acute distress. HEENT: He is edentulous. ABDOMEN: He has a very large abdomen. There is a scar from prior umbilical hernia repair. He has no abdominal tenderness. EXTREMITIES: Lower extremities show venous stasis disease and dependent cyanosis. His feet are warm. He is alert and oriented. DIAGNOSTIC DATA: Reviewed the CT scan in great detail as well as lab studies. ASSESSMENT: The patient has several medical problems most dominantly morbid obesity and home oxygen-dependent chronic obstructive pulmonary disease. His rib fractures are somewhat painful, but not . He has multiple old rib fractures from previous falls and possibly childhood trauma in the past. He clearly needs to have pain control, which I think could be handled by oral agents. I do not believe he needs to be admitted to the hospital at least for the acute rib fractures. I will confer with the managing ER physician, Dr. Perez, who has taken over from Dr. Ngo my findings. I would recommend a nonsteroidal such as Motrin and Tylenol and opiate may additionally be necessary. There is no displacement to the ribs and they are at least 5 days old. The rib fractures will heal as the old rib fractures have over time. Chest wall stabilization would be contraindicated as was more likely to cause hypoventilation and resultant pneumonia. He has no such findings at this time. MD NORMA Terrell/GAY /[id number] cc: DO Darwin PERDOMO, [facility] Copies: DARWIN PEREZ DO Electronically Signed By: ELISHA MARCH MD 10/04/19 1208 PATIENT NAME: ALEN ARANDA CONSULTATION DATE OF : 50 REPORT #: [id number] PHYSICIAN: ELISHA MARCH MD PCP: COSME DYE MD REPORT IS CONFIDENTIAL AND NOT TO BE RELEASED WITHOUT AUTHORIZATION [address] [address] Signed ~ Electronically Signed By: ELISHA MARCH MD 10/04/19 1208 PATIENT NAME: ALEN AARNDA YUMIKO CONSULTATION DATE OF : 50 REPORT #: [id number] PHYSICIAN: ELISHA MARCH MD PCP: COSME DYE MD REPORT IS CONFIDENTIAL AND NOT TO BE RELEASED WITHOUT AUTHORIZATION
--- NOTE | 2019-10-04 19:27 | EKG ---
[facility] [address] [facility] [place] [address] Signed Atrial fibrillation Lateral infarct , age undetermined Cannot rule out Inferior infarct , age undetermined Abnormal ECG When compared with ECG of 11-AUG-2019 15:30, Lateral infarct is now present T wave inversion now evident in Lateral leads Confirmed by BENJY CAI MD ([id number]) on 10/04/2019 7:27:26 PM Electronically Signed By: BENJY CAI MD 10/04/19 1927 PATIENT NAME: ALEN ARANDA YUMIKO Electrocardiogram DATE OF : 50 PHYSICIAN: BENJY CAI MD REPORT #: [id number] REPORT IS CONFIDENTIAL AND NOT TO BE RELEASED WITHOUT AUTHORIZATION
== END 2019-10-02 20:00 | disposition home or self-care (01) ==
LOC: ED 12:01
DX: S22.42XA Multiple fractures of ribs, left side, initial encounter for closed fracture (principal); I11.0 Hypertensive heart disease with heart failure; I50.9 Heart failure, unspecified; I48.91 Unspecified atrial fibrillation; E11.9 Type 2 diabetes mellitus without complications; Z86.73 Personal history of transient ischemic attack (TIA), and cerebral infarction without residual deficits; Z87.891 Personal history of nicotine dependence; Z88.2 Allergy status to sulfonamides; Z91.048 Other nonmedicinal substance allergy status; Z88.0 Allergy status to penicillin; Z79.899 Other long term (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; Z79.4 Long term (current) use of insulin; W22.8XXA Striking against or struck by other objects, initial encounter
CPT/HCPCS: 71250; 74150; 74176; 80053; 83880; 84484; 85025; 93005; 93010; 96374; 96375; 99284-25; J1170; J2405

== ENCOUNTER 2019-10-09 17:44 | Emergency (ER) | payer OTHER ==
[~2019-10-09] VITALS: Ht 188 cm; Wt 158.8 kg
[~2019-10-09 17:44] MED LIST changes: +PERCOCET 5-3251 EACH PO
--- OUTSIDE RECORDS SUMMARY | 2019-10-09 17:46 | XMS ---
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 - Has Care Guidelines - [facility] - 2 Visits in 30 Days CARE PROVIDERS Ricardo Mcneil DO [facility] Current PHONE: Unknown IHSAN BURTON [facility] 05/17/2015-Current PHONE: Unknown Jericho Dye [facility] 06/20/2018-Current PHONE: [phone] DR JERICHO DYE Primary [facility] Current PHONE: [phone] Ricardo Mcneil Current PHONE: Unknown Anuel Brown - Case or Events Manager Current [facility] PHONE: [phone] [facility] 05/17/2015-[facility] PHONE: [phone] IHSAN BURTON 05/17/2015-Current PHONE: [phone] [facility] PHONE: Unknown Wyatt has no Care Guidelines for this patient. Care History Medical/Surgical 05/01/2019 [facility] - PATIENT IS A - RECEIVES MEDICAL SERVICES FROM [place] IN [place], [place]- KISHORE ROMANO E.D. VISIT COUNT (12 MO.) 5 [facility]. TOTAL 5 NOTE: Visits indicate total known visits. ED/UCC VISIT TRACKING (12 MO.) 10/09/2019 17:45 [facility] [place] TYPE: Emergency COMPLAINT: - FALL 10/02/2019 12:02 [facility] [place] TYPE: Emergency COMPLAINT: - FALL, RIB PAIN DIAGNOSES: - Hypertensive heart disease with heart failure - Other rn long term care (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 - Personal history of nicotine dependence - Allergy status to sulfonamides status - Other nonmedicinal substance allergy status - Unspecified atrial fibrillation - Heart failure, unspecified - 1 Type 2 diabetes mellitus without complications - Pleurodynia - shelter (current) use of insulin - Striking against or struck by other objects, init encntr - Prsnl hx of TIA (TIA), and cereb infrc w/o resid deficits - Allergy status to penicillin - Multiple fractures of ribs, left side, init for clos fx 08/11/2019 15:01 [facility] [place] TYPE: Emergency COMPLAINT: - STROKE LIKE SYMPTOMS 06/20/2019 16:37 [facility] [place] TYPE: Emergency COMPLAINT: - URINE PROBLEM DIAGNOSES: - Allergy status to penicillin - Heart failure, unspecified - Urinary tract infection, site not specified - Other assisted (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 - shelter (current) use of insulin - [...] TYPE: Observation COMPLAINT: - CVA DIAGNOSES: - terminal gauger (current) use of anticoagulants - Other assisted (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 - Slurred speech - Heart failure, unspecified - Patient's other noncompliance with medication regimen - shelter (current) use of insulin - Personal history [...] penicillin - Unspecified mood [affective] disorder - terminal gauger (current) use of insulin - Other obesity - 1 Type 2 diabetes mellitus w diabetic chronic kidney disease - Chronic atrial fibrillation - Carrier of other specified bacterial diseases - Carrier of other specified bacterial diseases - terminal gauger (current) use of opiate analgesic - Cellulitis [...] polyneuropathy - Allergy status to penicillin - terminal gauger (current) use of opiate analgesic - Blister [...] midft lmt to brkdwn skin - Other assisted (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 - 1 Hyp hrt \T\ 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
[2019-10-09] MEDS ORDERED: XARELTO20 MG PO (18:07)
--- NOTE | 2019-10-10 13:03 | EKG ---
[facility] [address] [facility] [place] [address] Signed Atrial fibrillation with premature ventricular or aberrantly conducted complexes Nonspecific ST abnormality Abnormal ECG When compared with ECG of 02-OCT-2019 15:22, Criteria for Lateral infarct are no longer present Minimal criteria for Inferior infarct are no longer present Confirmed by BRENDA MANNING DO ([id number]) on 10/10/2019 1:03:19 PM Electronically Signed By: BRENDA MANNING DO 10/10/19 1303 PATIENT NAME: MANOJCHERYLLUIS CALDERON Electrocardiogram DATE OF : 50 PHYSICIAN: BRENDA MANNING DO REPORT #: [id number] REPORT IS CONFIDENTIAL AND NOT TO BE RELEASED WITHOUT AUTHORIZATION
== END 2019-10-09 23:12 | disposition short-term general hospital (02) ==
LOC: ED 17:44
DX: S72.142A Displaced intertrochanteric fracture of left femur, initial encounter for closed fracture (principal); W18.30XA Fall on same level, unspecified, initial encounter; I11.0 Hypertensive heart disease with heart failure; I50.9 Heart failure, unspecified; I48.91 Unspecified atrial fibrillation; E11.9 Type 2 diabetes mellitus without complications; Z87.891 Personal history of nicotine dependence; Z88.2 Allergy status to sulfonamides; Z88.0 Allergy status to penicillin; Z91.048 Other nonmedicinal substance allergy status; Z79.899 Other long term (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
CPT/HCPCS: 70450; 73700; 80053; 85025; 93005; 93010; 96374; 96375; 99284-25; J1170; J2405

== ENCOUNTER 2019-10-25 20:12 | Emergency (ER) | payer OTHER ==
[~2019-10-25] VITALS: Ht 188 cm; Wt 159.0 kg
[~2019-10-25 20:12] MED LIST changes: +XARELTO20 MG PO
--- OUTSIDE RECORDS SUMMARY | 2019-10-25 20:14 | XMS ---
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 No recent Security Events currently on file CRITERIA MET - Group Notification - 6 ED Visits in 6 Months - [facility] - Has Care Guidelines - PDMP - [facility] - 2 Visits in 30 Days CARE PROVIDERS Name Unknown [facility] Current PHONE: [phone] Ricardo Mcneil DO [facility] Current PHONE: Unknown IHSAN BURTON [facility] 05/17/2015-Current PHONE: Unknown Jericho Dye [facility] 06/20/2018-Current PHONE: [phone] DR JERICHO DYE Primary Care Current PHONE: [phone] Ricardo Mcneil Current PHONE: Unknown Anuel Brown - Case or Commercial Engineer [facility] PHONE: [phone] IHSAN BURTON Primary [facility] 05/17/2015-Current PHONE: [phone] ESPERANZA VÁZQUEZ [facility] PHONE: Unknown Wyatt has no Care Guidelines for this patient. Care History Medical/Surgical 05/01/2019 [facility] - PATIENT IS A - RECEIVES MEDICAL SERVICES FROM [place] IN [place], [place]- KISHORE ROMANO E.D. VISIT COUNT (12 MO.) 6 [facility]. TOTAL 6 NOTE: Visits indicate total known visits. ED/UCC VISIT TRACKING (12 MO.) 10/25/2019 20:12 [facility] [place] TYPE: Emergency COMPLAINT: - ABDOMINAL PAIN 10/09/2019 17:45 [facility] [place] TYPE: Emergency COMPLAINT: - FALL DIAGNOSES: - Heart failure, unspecified - Allergy status to penicillin - Pain in left hip - Other retirement (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 - Unspecified atrial fibrillation - Displaced intertrochanteric fracture of left femur, init - Fall on same level, unspecified, initial encounter - Allergy status to sulfonamides status - Personal history of nicotine dependence - 1 Type 2 diabetes mellitus without complications - Other nonmedicinal substance allergy status - Hypertensive heart disease with heart failure 10/02/2019 12:02 [facility] [place] TYPE: Emergency COMPLAINT: - FALL, RIB PAIN DIAGNOSES: - Hypertensive heart disease with heart failure - Other retirement (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 - Personal history of nicotine dependence - Allergy status to sulfonamides status - Other nonmedicinal substance allergy status - Unspecified atrial fibrillation - Heart failure, unspecified - 1 Type 2 diabetes mellitus without complications - Pleurodynia - 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 - Striking against [...] tract infection, site not specified - Other ferry terminal agent (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 - 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 - Other nonmedicinal substance allergy status - 1 Type 2 diabetes mellitus without complications - Hypertensive heart disease with heart failure - Allergy status to sulfonamides status - Personal history of nicotine dependence 04/30/2019 15:34 [facility] [place] TYPE: Emergency COMPLAINT: - TOE INJURY INPATIENT VISIT TRACKING (12 MO.) 10/10/2019 00:48 [facility] TYPE: Internal Medicine DIAGNOSES: - Left hip FX - Fracture of unsp part of neck of left femur, init 08/11/2019 15:02 [facility] [place] TYPE: Observation COMPLAINT: - CVA DIAGNOSES: - [facility] (current) use of anticoagulants - Other retirement (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 - Slurred speech - Heart failure, unspecified - Patient's other noncompliance with medication regimen - [facility] (current) use of insulin - Personal history [...] infrc w/o resid deficits 04/30/2019 21:19 [facility] TYPE: Medical Surgical COMPLAINT: - DIABETIC FOOT INFECTION DIAGNOSES: - 1 Type 2 diabetes mellitus with hyperglycemia - Allergy status to penicillin - Unspecified mood [affective] disorder - 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 - Other obesity - 1 Type 2 diabetes mellitus w diabetic chronic kidney disease - Chronic atrial fibrillation - Carrier of other specified bacterial diseases - Carrier of other specified bacterial diseases - dedicated intermodal truck driver (current) use of opiate analgesic [...] polyneuropathy - Allergy status to penicillin - 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
== END 2019-10-26 01:26 ==
LOC: ED 20:12
DX: K59.00 Constipation, unspecified (principal); R33.9 Retention of urine, unspecified; I11.0 Hypertensive heart disease with heart failure; I50.9 Heart failure, unspecified; B20 Human immunodeficiency virus [HIV] disease; I48.91 Unspecified atrial fibrillation; E11.9 Type 2 diabetes mellitus without complications; Z87.891 Personal history of nicotine dependence; Z88.2 Allergy status to sulfonamides; Z88.0 Allergy status to penicillin; Z91.048 Other nonmedicinal substance allergy status; Z79.899 Other long term (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
CPT/HCPCS: 51702; 51798; 74177; 80053; 81001; 83690; 85025; 99285-25; Q9967

== ENCOUNTER 2020-03-13 15:39 | Emergency (ER) | payer OTHER ==
[~2020-03-13] VITALS: Ht 188 cm; Wt 142.7 kg
[~2020-03-13 15:39] MED LIST changes: +ELIQUIS2.5 MG PO; +INSULIN LI100 UNIT/2 SUB-Q; +NORCO 5-325 TA1 EACH PO; +OXYCODONE-ACET1 EAC1 PO; +REMERON15 MG PO
--- OUTSIDE RECORDS SUMMARY | 2020-03-13 15:42 | XMS ---
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 - Has Care Guidelines - PDMP CARE PROVIDERS Name Unknown [facility] Facility Current PHONE: [phone] Ricardo Mcneil [facility] Current PHONE: [phone] IHSAN BURTON [facility] 05/17/2015-Current PHONE: Unknown Jericho Cao [facility] 06/20/2018-Current PHONE: [phone] Wyatt has no Care Guidelines for this patient. Care History Medical/Surgical 05/01/2019 [facility] - PATIENT IS A - RECEIVES MEDICAL SERVICES FROM [place] IN [place], [place]- KISHORE ROMANO E.D. VISIT COUNT (12 MO.) 8 [facility] TOTAL 8 NOTE: Visits indicate total known visits. ED/UCC VISIT TRACKING (12 MO.) 03/13/2020 15:41 [facility] [place] TYPE: Emergency COMPLAINT: - FALL 11/25/2019 11:33 [facility] [place] TYPE: Emergency COMPLAINT: - FALL, PAIN DIAGNOSES: - Hypertensive heart and chronic kidney disease with heart fail - Pleurodynia - Unspecified atrial fibrillation - Chronic kidney disease, unspecified - Contusion of left front wall of thorax, initial encounter - Heart failure, unspecified - Type 2 diabetes mellitus with diabetic chronic kidney disease - Fall on same level, unspecified, initial encounter 10/25/2019 20:12 [facility] [place] TYPE: Emergency COMPLAINT: - ABDOMINAL PAIN DIAGNOSES: - Type 2 diabetes mellitus without complications - Personal history of nicotine dependence - Retention of urine, unspecified - Heart failure, unspecified - Unspecified atrial fibrillation - Allergy status to sulfonamides status - Constipation, unspecified - Allergy status to penicillin - Other nonmedicinal substance allergy status - Hypertensive heart disease with heart failure - 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 10/09/2019 17:45 [facility] [place] TYPE: Emergency COMPLAINT: - FALL DIAGNOSES: - Heart failure, unspecified - Allergy status to penicillin - Pain in left hip - 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 - Unspecified atrial fibrillation - Displaced intertrochanteric fracture of left femur, initial e - Fall on same level, unspecified, initial encounter - Allergy status to sulfonamides status - Personal history of nicotine dependence - Type 2 diabetes mellitus without complications - Other nonmedicinal substance allergy status - Hypertensive heart disease with heart failure 10/02/2019 12:02 [facility] [place] TYPE: Emergency COMPLAINT: - FALL, RIB PAIN DIAGNOSES: - Hypertensive heart disease with heart failure - Other skilled nursing (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 - Personal history of nicotine dependence - Allergy status to sulfonamides status - Other nonmedicinal substance allergy status - Unspecified atrial fibrillation - Heart failure, unspecified - Type 2 diabetes mellitus without complications - Pleurodynia - oil heaterman (current) use of insulin - Striking against or struck by other objects, initial encounte - Personal history of transient ischemic attack (TIA), and cere - Allergy status to penicillin - Multiple fractures of ribs, left side, initial encounter for 08/11/2019 15:01 [facility] [place] TYPE: Emergency COMPLAINT: - STROKE LIKE SYMPTOMS 06/20/2019 16:37 [facility] [place] TYPE: Emergency COMPLAINT: - URINE PROBLEM DIAGNOSES: - Allergy status to penicillin - Heart failure, unspecified - Urinary tract infection, site not specified - Other skilled nursing (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 - assisted (current) use of insulin - Other nonmedicinal substance allergy status - Type 2 diabetes mellitus without complications - Hypertensive heart disease with heart failure - Allergy status to sulfonamides status - Personal history of nicotine dependence 04/30/2019 15:34 [facility] TYPE: Emergency COMPLAINT: - TOE INJURY INPATIENT VISIT TRACKING (12 MO.) [facility] DIAGNOSES: - Left hip FX - Fracture of unspecified part of neck of left femur, initial e 08/11/2019 15:02 [facility] [place] TYPE: Observation COMPLAINT: - CVA DIAGNOSES: - assisted (current) use of anticoagulants - 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 - Slurred speech - Heart failure, unspecified - Patient's other noncompliance with medication regimen - oil heaterman (current) use of insulin - Personal history of nicotine dependence - Presence of cardiac pacemaker - Facial weakness - Chronic atrial fibrillation, unspecified - Cerebral infarction, unspecified - Asymptomatic human immunodeficiency virus [HIV] infection sta - NIHSS score 16 - Hypertensive heart disease with heart failure - Allergy status to penicillin - Allergy status to sulfonamides status - Type 2 diabetes mellitus without complications - Personal history of transient ischemic attack (TIA), and cere 04/30/2019 21:19 [facility] [place] TYPE: Medical Surgical COMPLAINT: - DIABETIC FOOT INFECTION DIAGNOSES: - Type 2 diabetes mellitus with hyperglycemia - Allergy status to penicillin - Unspecified mood [affective] disorder - assisted (current) use of insulin - Other obesity - Type 2 diabetes mellitus with diabetic chronic kidney disease - Chronic atrial fibrillation - Carrier of other specified bacterial diseases - Carrier of other specified bacterial diseases - assisted (current) use of opiate analgesic - Cellulitis of left lower limb - Type 2 diabetes mellitus with other skin complications - Urinary tract infection, site not specified - Cellulitis of left lower limb - Hyperuricemia without signs of inflammatory arthritis and top - Unspecified mood [affective] disorder - Hypertensive heart and chronic kidney disease with heart fail - Allergy status to sulfonamides status - Chronic kidney disease, stage 3 (moderate) - Allergy status to sulfonamides status - Chronic diastolic (congestive) heart failure - Chronic diastolic (congestive) heart failure - Type 2 diabetes mellitus with diabetic polyneuropathy - Type 2 diabetes mellitus with diabetic polyneuropathy - Allergy status to penicillin - oil heaterman (current) use of opiate analgesic - Blister (nonthermal), left foot, initial encounter - Non-pressure chronic ulcer of other part of left foot limited - Other obesity - Personal history of transient ischemic attack (TIA), and cere - Blister (nonthermal), left foot, initial encounter - Asymptomatic human immunodeficiency virus [HIV] infection sta - Non-pressure chronic ulcer of left heel and midfoot limited t - Chronic kidney disease, stage 3 (moderate) - Local infection of the skin and subcutaneous tissue, unspecif - Chronic atrial fibrillation - Hyperuricemia without signs of inflammatory arthritis and top - Type 2 diabetes mellitus with diabetic peripheral angiopathy - Non-pressure chronic ulcer of left heel and midfoot limited t - Other skilled nursing (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 - Hypertensive heart and chronic kidney disease with heart fail - oil heaterman (current) use of insulin - Non-pressure chronic ulcer of other part of left foot limited - Type 2 diabetes mellitus with other skin complications - Type 2 diabetes mellitus with hyperglycemia - Body mass index (BMI) 40.0-44.9, adult - Body mass index (BMI) 40.0-44.9, adult - Type 2 diabetes mellitus with diabetic chronic kidney disease - Personal history of transient ischemic attack (TIA), and cere - Type 2 diabetes mellitus with diabetic peripheral angiopathy - 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
== END 2020-03-13 18:27 | disposition home or self-care (01) ==
LOC: ED 15:39
DX: I13.0 Hypertensive heart and chronic kidney disease with heart failure and stage 1 through stage 4 chronic kidney disease, or unspecified chronic kidney disease (principal); E11.22 Type 2 diabetes mellitus with diabetic chronic kidney disease; I50.9 Heart failure, unspecified; N18.9 Chronic kidney disease, unspecified; I48.91 Unspecified atrial fibrillation; Z86.73 Personal history of transient ischemic attack (TIA), and cerebral infarction without residual deficits; Z87.891 Personal history of nicotine dependence; Z88.2 Allergy status to sulfonamides; Z88.0 Allergy status to penicillin; Z91.048 Other nonmedicinal substance allergy status; Z79.899 Other long term (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; Z79.4 Long term (current) use of insulin; Z79.01 Long term (current) use of anticoagulants
CPT/HCPCS: 80053; 85025; 96360; 99284-25; J7030

== ENCOUNTER 2020-03-20 11:50 | Emergency (ER) | payer OTHER ==
[~2020-03-20] VITALS: Ht 188 cm; Wt 142.7 kg
--- OUTSIDE RECORDS SUMMARY | ~2020-03-20 | XMS | Encounter Summary ---
Demographics + + + | Address | [address] | | | [place] [address] | + + + | Home Phone | | + + + | Preferred Language | Unknown | + + + | Marital Status | | + + + | Adventist Affiliation | [phone] | + + + | Race | Unknown | + + + | Ethnic Group | Unknown | + + + Author + + + | Author | [facility] | | | and [place] | + + + | Organization | [facility] | | | and [place] | + + + | Address | Unknown | + + + | Phone | Unavailable | + + + Support + + + + + | Name | Relationship | Address | Phone | + + + + + | Aileen Nelson | ECON | [address] | | | | | [place] | | | | | [address] | | + + + + + Care Team Providers + +------+ + | Care Employee Representative Name | Role | Phone | + +------+ + | Jericho Cao MD | PCP | | + +------+ + Encounter Details +--------+ + + + + | Date | Type | Department | Care Team | Description | +--------+ + + + + | 10/12/ | Imaging | [facility] | Provider, | | | 2019 | Exam | [facility] | MD [address] | | | | | IMAGING [address] | [address] | | | | | [address] | [place] [address] | | | | | [place] [address] | | | | | | [phone] | | | +--------+ + + + + Social History + +-------+ +--------+------+ | Tobacco Use | Types | Packs/Day | Years | Date | | | | | Used | | + +-------+ +--------+------+ | Never Assessed | | | | | + +-------+ +--------+------+ + + + | Sex Assigned at | Date Recorded | | | | + + + | Not on file | | + + + documented as of this encounter Plan of Treatment Not on filedocumented as of this encounter Procedures + +--------+ + + + | Procedure Name | Priori | Date/Time | Associated Diagnosis | Comments | | | ty | | | | + +--------+ + + + | CT HEAD WO CONTRAST | Routin | 06/19/2018 | | Results for this | | | e | 2:25 PM | | procedure are in the | | | | PDT | | results section. | + +--------+ + + + documented in this encounter Results CT Head wo Contrast (06/19/2018 2:25 PM PDT) + + | Specimen | + + | | + + + + + | Narrative | Performed At | + + + | External films for comparison only | [facility] | | | | | No results will be in the chart. | | + + + + +---------+ + + | Performing | Address | City/State/Zipcode | Phone Number | | Organization | | | | + +---------+ + + | [facility] | | | | + +---------+ + + documented in this encounter Visit Diagnoses Not on filedocumented in this encounter"
--- OUTSIDE RECORDS SUMMARY | ~2020-03-20 | XMS | Encounter Summary ---
Demographics + + + | Address | [address] [place] [address] | | | [place] [address] | + + + | Home Phone | | + + + | Preferred Language | Unknown | + + + | Marital Status | Single | + + + | Sabianism Affiliation | PEN | + + + | Race | White | + + + | Ethnic Group | Not or | + + + Author + + + | Author | [facility] | + + + | Organization | [facility] | + + + | Address | Unknown | + + + | Phone | Unavailable | + + + Support + + + + + | Name | Relationship | Address | Phone | + + + + + | Aileen Aranda | ECON | [address] | | | | | [place] [address] | | + + + + + Care Team Providers + +------+ + | Care Shirt Hemmer Name | Role | Phone | + +------+ + PCP | Unavailable | + +------+ + Encounter Details +--------+ + + + + | Date | Type | Department | Care Team | Description | +--------+ + + + + | 05/08/ | Results | [facility] | José Miguel, | | | 2014 | Only | Department | Kym Oates MD | | +--------+ + + + + Social History + +-------+ +--------+------+ | Tobacco Use | Types | Packs/Day | Years | Date | | | | | Used | | + +-------+ +--------+------+ | Former Smoker | | | | | + +-------+ +--------+------+ + + +---------+ + | Alcohol Use | Drinks/Week | oz/Week | Comments | + + +---------+ + | No | | | | + + +---------+ + [...] | + +--------+ + + + | CAP GLU,POC | Routin | 05/08/2015 | | Results for this | | | e | 8:06 PM | | procedure are in the | | | | PDT | | results section. | + +--------+ + + + | SCROTAL ULTRASOUND | Routin | 05/08/2015 | | Results for this | | [id number] | e | 6:03 PM | | procedure are in the | | | | PDT | | results section. | + +--------+ + + + | CAP GLU,POC | Routin | 05/08/2015 | | Results for this | | | e | 5:17 PM | | procedure are in the | | | | PDT | | results section. | + +--------+ + + + | CAP GLU,POC | Routin | 05/08/2015 | | Results for this | | | e | 12:06 PM | | procedure are in the | | | | PDT | | results section. | + +--------+ + + + | CAP GLU,POC | Routin | 05/08/2015 | | Results for this | | | e | 7:29 AM | | procedure are in the | | | | PDT | | results section. | + +--------+ + + + | INR | Routin | 05/08/2015 | | Results for this | | | e | 6:12 AM | | procedure are in the | | | | PDT | | results section. | + +--------+ + + + | POTASSIUM, PLASMA | Routin | 05/08/2015 | | Results for this | | | e | 6:12 AM | | procedure are in the | | | | PDT | | results section. | + +--------+ + + + | CREATININE, PLASMA | Routin | 05/08/2015 | | Results for this | | | e | 6:12 AM | | procedure are in the | | | | PDT | | results section. | + +--------+ + + + documented in this encounter Results CAP GLU,POC (05/08/2015 8:06 PM PDT) + + + + + + | Component | Value | Ref Range | Performed | Pathologist | | | | | At | Signature | + + + + + + | BLOOD | 162 (A)Comment: Meter | 70 - 110 MG/DL | [facility] | | | GLUCOSE, | ID: [id number]: | | OF CARE | | | POC | [id number] Naida Lyles | | TESTING | | | |Debone Supervisor: [phone] Naida Lyles | | | | | | | | | | + + + + + + + + | Specimen | + + | | + + + +---------+ + + | Performing | Address | City/State/Zipcode | Phone Number | | Organization | | | | + +---------+ + + | [facility] | | | | | TESTING | | | | + +---------+ + + SCROTAL ULTRASOUND 13091 (05/08/2015 6:03 PM PDT) + + | Specimen | + + | | + + + + + | Narrative | Performed At | + + + | Name: | [facility] | | ARANDA,SARTHAK E | DEPARTMENT OF | | Phys: Bruno Gray MD | RADIOLOGY | | | | | : 1950 Age: 64 Sex: M | | | Acct: [id number] Loc: 426 2 | | | | | | Exam Date: 05/08/2015 Status: ADM IN | | | Radiology No: [id number] | | | Unit No: | | | [id number] EXAM# TYPE/EXAM | | | RESULT | | | [id number] US/SCROTAL ULTRASOUND [id number] | | | EXAM: SCROTAL ULTRASOUND | | | CLINICAL HISTORY: New right scrotal erythema, history | | | of scrotal pain, right greater than left, has been on | | | antibiotics for several days. TECHNIQUE: | | | Multiple real time sonographic images of the scrotum were | | | obtained utilizing a 14.0 MHz transducer. | | | COMPARISON: Scrotal ultrasound from 05/03/2015. | | | FINDINGS: Large bilateral hydroceles are redemonstrated with thin | | | septations on the right. The right testicle measures 3.1 cm x | | | 3.9 cm x 5.0 cm and the left testicle measures 3.2 cm x 3.2 cm | | | x 5.0 cm. Normal arterial and venous flow is present within | | | both testicles, both of which are homogeneous and normal in | | | echogenicity. Hypervascularity within the right epididymal | | | head has resolved. There is no current evidence of | | | epididymoorchitis. Dystrophic shadowing calcification lies | | | within the right epididymal head. Bilateral appendix testes | | | and/or appendix epididymis are visualized. There is marked | | | scrotal wall thickening. Impression: Large | | | bilateral hydroceles, marked scrotal wall thickening and | | | normal vascular flow within both testicles. Resolution of | | | right epididymal head epididymitis. | | | REPORT SIGNED IN OTHER VENDOR SYSTEM 05/08/2015 | | | Reported By: Tash Nolan MD | | | Technologist: LISA DICKERSON | | | Electronically | | | signed by: Tash Nolan MD CC: Romain | | | Neetu Harrington MD | | | | | | | | | Transcribed Date/Time: 05/08/2015 (1803) Bun Icer: | | | SPEECHQ PAGE 1 Signed Report | | | | | + + + + + | Procedure Note | + + | Interface, Radiology Results - 05/08/2015 6:04 PM PDT | | Name: SARTHAK ARANDA | | Phys: Bruno Gray MD : | | 1950 Age: 64 Sex: M Acct: [id number] | | Loc: 426 2 Exam Date: 05/08/2015 | | Status: ADM IN Radiology No: [id number] | | Unit No: [id number] EXAM# TYPE/EXAM | | RESULT [id number] US/SCROTAL ULTRASOUND | | [id number] EXAM: SCROTAL ULTRASOUND | | CLINICAL HISTORY: New right scrotal erythema, history of scrotal pain, right greater | | than left, has been on antibiotics for several days. TECHNIQUE: Multiple | | real time sonographic images of the scrotum were obtained utilizing a 14.0 MHz | | transducer. COMPARISON: Scrotal ultrasound from 05/03/2015. | | FINDINGS: Large bilateral hydroceles are redemonstrated with thin septations on the | | right. The right testicle measures 3.1 cm x 3.9 cm x 5.0 cm and the left testicle | | measures 3.2 cm x 3.2 cm x 5.0 cm. Normal arterial and venous flow is present | | within both testicles, both of which are homogeneous and normal in echogenicity. | | Hypervascularity within the right epididymal head has resolved. There is no current | | evidence of epididymoorchitis. Dystrophic shadowing calcification lies within the | | right epididymal head. Bilateral appendix testes and/or appendix epididymis are | | visualized. There is marked scrotal wall thickening. Impression: Large | | bilateral hydroceles, marked scrotal wall thickening and normal vascular flow within | | both testicles. Resolution of right epididymal head epididymitis. | | REPORT SIGNED IN OTHER VENDOR SYSTEM 05/08/2015 | | Reported By: Tash Nolan MD Technologist: LISA DICKERSON | | Electronically signed by: Tash Nolan MD | | CC: Romain Harrington MD | | Transcribed Date/Time: | | 05/08/2015 (1803) Bun Icer: GABRIELQ PAGE 1 Signed Report | | | | Hypervascularity within the right epididymal head has resolved. There | | is no current evidence of epididymoorchitis. Dystrophic shadowing | | calcification lies within the right epididymal head. Bilateral | | appendix testes and/or appendix epididymis are visualized. There is | | marked scrotal wall thickening. | | | | Impression: Large bilateral hydroceles, marked scrotal wall | | thickening and normal vascular flow within both testicles. | | Resolution of right epididymal head epididymitis. | | | | | | REPORT SIGNED IN OTHER VENDOR SYSTEM 05/08/2015 | | Reported By: Tash Nolan MD | | | | | | | | | | | | Technologist: LISA DICKERSON | | Electronically signed by: Tash Nolan MD | | CC: Romain Harrington MD | | | | | | Transcribed Date/Time: 05/08/2015 (5267) | | Bun Icer: SPEECHQ | | | | | | PAGE 1 Signed Report | + + + +---------+ + + | Performing | Address | City/State/Zipcode | Phone Number | | Organization | | | | + +---------+ + + | [facility] | | | | | RADIOLOGY | | | | + +---------+ + + CAP GLU,POC (05/08/2015 5:17 PM PDT) + + + + + + | Component | Value | Ref Range | Performed | Pathologist | | | | | At | Signature | + + + + + + | BLOOD | 145 (A)Comment: Meter | 70 - 110 MG/DL | [facility] | | | GLUCOSE, | ID: [id number]: | | OF CARE | | | POC | [id number] Raisa Jesus Manuel | | TESTING | | | |Debone Supervisor: [phone] Raisa Ken | | | | | | | | | | + + + + + + + + | Specimen | + + | | + + + +---------+ + + | Performing | Address | City/State/Zipcode | Phone Number | | Organization | | | | + +---------+ + + | [facility] | | | | | TESTING | | | | + +---------+ + + CAP GLU,POC (05/08/2015 12:06 PM PDT) + + + + + + | Component | Value | Ref Range | Performed | Pathologist | | | | | At | Signature | + + + + + + | BLOOD | 155 (A)Comment: Meter | 70 - 110 MG/DL | [facility] | | | GLUCOSE, | ID: [id number]: | | OF CARE | | | POC | [id number] Raisa Ken | | TESTING | | | |Debone Supervisor: [phone] Raisa Ken | | | | | | | | | | + + + + + + + + | Specimen | + + | | + + + +---------+ + + | Performing | Address | City/State/Zipcode | Phone Number | | Organization | | | | + +---------+ + + | [facility] | | | | | TESTING | | | | + +---------+ + + CAP GLU,POC (05/08/2015 7:29 AM PDT) + + + + + + | Component | Value | Ref Range | Performed | Pathologist | | | | | At | Signature | + + + + + + | BLOOD | 71Comment: Meter ID: | 70 - 110 MG/DL | [facility] | | | GLUCOSE, | [id number]: | | OF CARE | | | POC | [id number] Carie Mueller | | TESTING | | | | Larry | | | | | | | | | | + + + + + + + + | Specimen | + + | | + + + +---------+ + + | Performing | Address | City/State/Zipcode | Phone Number | | Organization | | | | + +---------+ + + | [facility] | | | | | TESTING | | | | + +---------+ + + CREATININE, PLASMA (05/08/2015 6:12 AM PDT) + + + + + + | Component | Value | Ref Range | Performed | Pathologist | | | | | At | Signature | + + + + + + | CREATININE | 1.7 (A)Comment: Comments | 0.9 - 1.3 mg/dL | [facility] | | | PLASMA | to gem technician: ADD ON | | [facility] | | | (LAB) | PREFERRED | | LABORATORY | | + + + + + + + + | Specimen | + + | | + + + + + | Narrative | Performed At | + + + | Comments to gem technician: ADD ON PREFERRED | [facility] | | | LABORATORY | + + + + +---------+ + + | Performing | Address | City/State/Zipcode | Phone Number | | Organization | | | | + +---------+ + + | [facility] | | | | | LABORATORY | | | | + +---------+ + + POTASSIUM, PLASMA (05/08/2015 6:12 AM PDT) + + + + + + | Component | Value | Ref Range | Performed | Pathologist | | | | | At | Signature | + + + + + + | POTASSIUM, | 3.2 (A)Comment: Comments | 3.5 - 5.2 | [facility] | | | PLASMA | to gem technician: ADD ON | mmol/L | [facility] | | | (LAB) | PREFERRED | | LABORATORY | | + + + + + + + + | Specimen | + + | | + + + + + | Narrative | Performed At | + + + | Comments to gem technician: ADD ON PREFERRED | [facility] | | | LABORATORY | + + + + +---------+ + + | Performing | Address | City/State/Zipcode | Phone Number | | Organization | | | | + +---------+ + + | [facility] | | | | | LABORATORY | | | | + +---------+ + + INR (05/08/2015 6:12 AM PDT) + + + + + + | Component | Value | Ref Range | Performed | Pathologist | | | | | At | Signature | + + + + + + | PROTHROMBIN | 36.2 (A) | 8.6 - 11.2 SEC | [facility] | | | TIME | | | [facility] | | | | | | LABORATORY | | + + + + + + | INR | 3.5 (A) | 1.0 - 1.1 | [facility] | | | | | | [facility] | | | | | | LABORATORY | | + + + + + + + + | Specimen | + + | | + + + +---------+ + + | Performing | Address | City/State/Zipcode | Phone Number | | Organization | | | | + +---------+ + + | [facility] | | | | | LABORATORY | | | | + +---------+ + + documented in this encounter Visit Diagnoses Not on filedocumented in this encounter"
--- OUTSIDE RECORDS SUMMARY | ~2020-03-20 | XMS | Encounter Summary ---
Demographics + + + | Address | [address] [place] [address] | | | [place] [address] | + + + | Home Phone | | + + + | Preferred Language | Unknown | + + + | Marital Status | Single | + + + | Presybeterian Affiliation | PEN | + + + | Race | White | + + + | Ethnic Group | Not or | + + + Author + + + | Author | [facility] | + + + | Organization | [facility] | + + + | Address | Unknown | + + + | Phone | Unavailable | + + + Support + + + + + | Name | Relationship | Address | Phone | + + + + + | Aileen Nelson | ECON | [address] | | | | | [place] [address] | | + + + + + Care Team Providers + +------+ + | Care Rn School Name | Role | Phone | + +------+ + | Romain Harrington MD | PCP | | + +------+ + Encounter Details +--------+ + + + + | Date | Type | Department | Care Team | Description | +--------+ + + + + | 05/20/ | Outside | Diagnostic | Zoila oMmin, | | | 2011 | Referral | Radiology at [facility] | MD DIONNE Oates | | | | Order | [address] | [facility] [address] | | | | | [address] Physician's | [address] | | | | | [address], [address] | [address] [place], | | | | | [place], [place] | [place] [address] | | | | | [address] | [phone] | | | | | [phone] | | | +--------+ + + + [...] + | Diagnosis | + + | Parotid mass - Primary Swelling, mass, or lump in head and neck | + + documented in this encounter"
--- OUTSIDE RECORDS SUMMARY | ~2020-03-20 | XMS | Encounter Summary ---
Demographics + + + | Address | [address] | | | [place] [address] | + + + | Home Phone | | + + + | Preferred Language | Unknown | + + + | Marital Status | | + + + | Restorationist Affiliation | 1038 | + + + | Race | Unknown | + + + | Ethnic Group | Unknown | + + + Author + + + | Author | [facility] | | | and [place] | + + + | Organization | [facility] | | | and [place] | + + + | Address | Unknown | + + + | Phone | Unavailable | + + + Support + + + + + | Name | Relationship | Address | Phone | + + + + + | Aileen Nelson | ECON | [address] | | | | | [place] | | | | | [address] | | + + + + + Care Team Providers + +------+ + | Care Electrical Tester Name | Role | Phone | + [...] | | | 2017 | | [address] [facility] | [address] | | | | | [place], [place] | [place], [place] | | | | | [address] | [address] | | | | | [phone] | [phone] | | | | | | | [...] | + +--------+ + + + | CD4 T CELL PANEL | Routin | 09/16/2017 | | Results for this | | | e | 6:16 AM | | procedure are in the | | | | PST | | results section. | + +--------+ + + + documented in this encounter Results CD4 T Cell Panel (09/16/2017 6:16 AM PST) + + + + + + | Component | Value | Ref Range | Performed | Pathologist | | | | | At | Signature | + + + + + + | Source | BLOOD | | EXTERNAL | | | | | | LAB | | + + + + + + | WBC | 9.8 | 3.8 - 11.0 | EXTERNAL | | | | | 10*3/uL | LAB | | + + + + + + | Lymphocytes | 29.3 | 15.0 - 48.0 % | EXTERNAL | | | Manual | | | LAB | | + + + + + + | Absolute | 2.90 | 1.00 - 3.90 | EXTERNAL | | | Lymphocytes | | 10*3/uL | LAB | | + + + + + + | CD4- | 34.4Comment: | 30.0 - 65.0 % | EXTERNAL | | | | ===NOTIFICATION | | LAB | | | | REQUIRED, REPORT SENT TO | | | | | | THE STATE | | | | | | HEALTHDEPARTMENT=== | | | | + + + + + + | Absolute | 998Comment: | 490 - 1400 /uL | EXTERNAL | | | CD4 ([place] | ===NOTIFICATION | | LAB | | | T) Cells | REQUIRED, REPORT SENT TO | | | | | | THE STATE | | | | | | HEALTHDEPARTMENT=== | | | | + + + + + + | CD4 NOTE 2 | SEE BELOWComment: NORMAL | | EXTERNAL | | | | RANGES BASED ON WHOLE | | LAB | | | | BLOOD.RESULT IS A SINGLE | | | | | | TEST PARAMETER WHICH | | | | | | MAY BE INFLUENCED BY | | | | | | TRANSPORTTIMES, THERAPY, | | | | | | AND ASSOCIATED | | | | | | DISORDERS. MORE VALID | | | | | | DATA INCLUDE CD3,CD19, | | | | | | CD4, CD8, AND CD4/CD8 | | | | | | RATIO.THIS TEST WAS | | | | | | DEVELOPED AND ITS | | | | | | PERFORMANCE | | | | | | CHARACTERISTICS | | | | | | DETERMINEDBY [facility] | | | | | | [facility] | | | | | | [place]. IT HAS NOT BEEN | | | | | | CLEARED ORAPPROVED BY | | | | | | THE [place] FOOD AND DRUG | | | | | | ADMINISTRATION. THE FDA | | | | | | HASDETERMINED THAT SUCH | | | | | | CLEARANCE OR APPROVAL IS | | | | | | NOT NECESSARY.THIS TEST | | | | | | IS USED FOR CLINICAL | | | | | | PURPOSES IN MANY | | | | | | LABORATORIES, AND | | | | | | ISNECESSARY FOR STANDARD | | | | | | MEDICAL CARE. IT SHOULD | | | | | | NOT BE REGARDED | | | | | | ASINVESTIGATIONAL OR FOR | | | | | | RESEARCH. THIS | | | | | | LABORATORY IS CERTIFIED | | | | | | UNDERTHE CLINICAL | | | | | | LABORATORY IMPROVEMENT | | | | | | AMENDMENTS OF 1987 | | | | | | ("CLIA") ASQUALIFIED TO | | | | | | PERFORM HIGH COMPLEXITY | | | | | | CLINICAL TESTING. | | | | + + + [...] Visit Diagnoses Not on filedocumented in this encounter
--- OUTSIDE RECORDS SUMMARY | ~2020-03-20 | XMS | Encounter Summary ---
Demographics + + + | Address | [address] [place] [address] | | | [place] [address] | + + + | Home Phone | | + + + | Preferred Language | Unknown | + + + | Marital Status | Single | + + + | Worship Affiliation | PEN | + + + | Race | White | + + + | Ethnic Group | Not or | + + + Author + + + | Author | [facility] | + + + | Organization | [facility] | + + + | Address | Unknown | + + + | Phone | Unavailable | + + + Support + + + + + | Name | Relationship | Address | Phone | + + + + + | Aileen Nelson | ECON | [address] | | | | | [place] [address] | | + + + + + Care Team Providers + +------+ + | Care Hoisting Machine Operator Name | Role | Phone | + +------+ + | Romain Harrington MD | PCP | | + +------+ + Encounter Details +--------+ + + + + | Date | Type | Department | Care Team | Description | +--------+ + + + + | 05/03/ | Results | NON-[facility] | [place], | | | 2014 | Only | Department | [address] | | | | | | [place] | | | | | | [address] | | | | | | [phone] | | | | | | | [...] | + +--------+ + + + | JULIA ANTONIO W/ | Routin | 05/03/2015 | | Results for this | | REFLEX | e | 9:40 PM | | procedure are in the | | | | PDT | | results section. | + +--------+ + + + | RBC MORPHOLOGY | Routin | 05/03/2015 | | Results for this | | | e | 8:45 PM | | procedure are in the | | | | PDT | | results section. | + +--------+ + + + | CBC W/DIFF, REFLEX | Routin | 05/03/2015 | | Results for this | | | e | 8:45 PM | | procedure are in the | | | | PDT | | results section. | + +--------+ + + + | INR | Routin | 05/03/2015 | | Results for this | | | e | 8:45 PM | | procedure are in the | | | | PDT | | results section. | + +--------+ + + + | BASIC METABOLIC SET | Routin | 05/03/2015 | | Results for this | | (NA, K, CL, TCO2, | e | 8:45 PM | | procedure are in the | | BUN, CR, GLU, CA) | | PDT | | results section. | + +--------+ + + + | LACTATE | Routin | 05/03/2015 | | Results for this | | | e | 8:45 PM | | procedure are in the | | | | PDT | | results section. | + +--------+ + + + documented in this encounter Results JULIA ANTONIO (05/03/2015 9:40 PM PDT) + + + + + + | Component | Value | Ref Range | Performed | Pathologist | | | | | At | Signature | + + + + + + | COLOR(UR) | Yellow | YELLOW | [facility] | | | | | [facility] | | | | | [facility] | | + + + + + + | APPEARANCE | Clear | CLEAR | [facility] | | | | [facility] | | | | | [facility] | | + + + + + + | SPECIFIC | 1.008 | 1.005 - 1.030 | [facility] | | | GRAVITY | | | [facility] | | | | | | LABORATORY | | + + + + + + | PH(UR) | 5.5 | 5.0 - 8.0 | [facility] | | | | | | [facility] | | | | | LAB[facility]ATORY | | + + + + + + | PROTEIN, UA | TRACE | NEGATIVE | [facility] | | | | [facility] | | | | | [facility] | | + + + + + + | GLUCOSE, UA | NEG | NEGATIVE | [facility] | | | | | [facility] | | | | | | [facility] | | + + + + + + | KETONES, UA | NEG | NEGATIVE | [facility] | | | | | | [facility] | | | | | | [facility] | | + + + + + + | BILIRUBIN | NEG | NEGATIVE | [facility] | | | | | | [facility] | | | | | [facility] | | + + + + + + | BLOOD | NEG | NEGATIVE | [facility] | | | | | | [facility] | | | | | [facility] | | + + + + + + | NITRITES | NEG | NEGATIVE | [facility] | | | | | | [facility] | | | | | | [facility] | | + + + + + + | LEUKOCYTE | NEG | NEGATIVE | [facility] | | | ESTERASE | | | [facility] | | | | | | [facility]ORY | | + + + + + + | UROBILINOGE | NEG | NEGATIVE MG/DL | [facility] | | | N | | | [facility] | | | | | | LABORATORY | | + + + + + + | SOURCE | CLEAN CATCHComment: | | [facility] | | | | Collected by Care Unit: | | [facility] | | | | Y | | LABORATORY | | + + + + + + + + | Specimen | + + | | + + + + + | Narrative | Performed At | + + + | Collected by Care Unit: Y | [facility] | | | LABORATORY | + + + + +---------+ + + | Performing | Address | City/State/Zipcode | Phone Number | | Organization | | | | + +---------+ + + | [facility] | | | | | LABORATORY | | | | + +---------+ + + INR (05/03/2015 8:45 PM PDT) + + + + + + | Component | Value | Ref Range | Performed | Pathologist | | | | | At | Signature | + + + + + + | PROTHROMBIN | 14.5 (A)Comment: | 8.6 - 11.2 SEC | [facility] | | | TIME | Received a thrombolytic | | [facility] | | | | enzyme this admission: N | | LABORATORY | | + + + + + + | INR | 1.4 (A)Comment: | 1.0 - 1.1 | [facility] | | | | Collected by Care Unit: | | [facility] | | | | YReceived a thrombolytic | | LABORATORY | | | | enzyme this admission: | | | | | | N | | | | + + + + + + + + | Specimen | + + | | + + + + + | Narrative | Performed At | + + + | Collected by Care Unit: Y Received a thrombolytic enzyme this | [facility] | | admission: N | LABORATORY | + + + + +---------+ + + | Performing | Address | City/State/Zipcode | Phone Number | | Organization | | | | + +---------+ + + | [facility] | | | | | LABORATORY | | | | + +---------+ + + BASIC METABOLIC SET (NA, K, CL, TCO2, BUN, CR, GLU, CA) (05/03/2015 8:45 PM PDT) + + + + + + | Component | Value | Ref Range | Performed | Pathologist | | | | | At | Signature | + + + + + + | SODIUM, | 134 (A) | 137 - 146 | [facility] | | | PLASMA | | mmol/L | [facility] | | | (LAB) | | | LABORATORY | | + + + + + + | POTASSIUM, | 3.7 | 3.5 - 5.2 | [facility] | | | PLASMA | | mmol/L | [facility] | | | (LAB) | | | LABORATORY | | + + + + + + | CO2 | 24 | 20 - 27 mmol/L | [facility] | | | | | | [facility] | | | | | | LABORATORY | | + + + + + + | CHLORIDE, | 96 | 96 - 106 mmol/L | [facility] | | | PLASMA | | | [facility] | | | (LAB) | | | LABORATORY | | + + + + + + | ANION GAP | 14 | 12 - 20 MEQ/L | [facility] | | | | | | [facility] | | | | | | LABORATORY | | + + + + + + | GLUCOSE, | 323 (A) | 70 - 105 mg/dL | [facility] | | | PLASMA | | | [facility] | | | (LAB) | | | LABORATORY | | + + + + + + | BUN, PLASMA | 31 (A) | 6 - 26 mg/dL | [facility] | | | (LAB) | | | [facility] | | | | | | LABORATORY | | + + + + + + | CREATININE | 1.6 (A) | 0.9 - 1.3 mg/dL | [facility] | | | PLASMA | | | [facility] | | | (LAB) | | | LABORATORY | | + + + + + + | BUN/CREATIN | 19 | 6 - 20 RATIO | [facility] | | | INE RATIO | | | [facility] | | | | | | LABORATORY | | + + + + + + | CALCIUM, | 8.4 (A) | 8.5 - 10.8 | [facility] | | | PLASMA | | mg/dL | [facility] | | | (LAB) | | | LABORATORY | | + + + + + + | ESTIMATED | 46.5 | >60 | [facility] | | | GFR | | | [facility] | | | | | | LABORATORY | | + + + + + + | FASTING? | UNKComment: Collected by | HR | [facility] | | | | Care Unit: Y | | [facility] | | | | | | LABORATORY | | + + + + + + + + | Specimen | + + | | + + + + + | Narrative | Performed At | + + + | Collected by Care Unit: Y | [facility] | | | LABORAT[facility] | + + + + +---------+ + + | Performing | Address | City/State/Zipcode | Phone Number | | Organization | | | | + +---------+ + + | [facility] | | | | | LABORATORY | | | | + +---------+ + + RBC MORPHOLOGY (05/03/2015 8:45 PM PDT) + + + + + + | Component | Value | Ref Range | Performed | Pathologist | | | | | At | Signature | + + + + + + | RBC | 1+ HYPOCHROMIA | NORMAL | [facility] | | | MORPHOLOGY | | | [facility] | | | | | | LAB[facility]ATORY | | + + + + + + | RBC | 1+ ANISOComment: | NORMAL | [facility] | | | MORPHOLOGY | Collected by Care Unit: | | [facility] | | | | Y | | LABORATORY | | + + + + + + + + | Specimen | + + | | + + + + + | Narrative | Performed At | + + + | Collected by Care Unit: Y | [facility] | | | LABORATORY | + + + + +---------+ + + | Performing | Address | City/State/Zipcode | Phone Number | | Organization | | | | + +---------+ + + | [facility] | | | | | LABORATORY | | | | + +---------+ + + CBC W/DIFF, REFLEX (05/03/2015 8:45 PM PDT) + + + + + + | Component | Value | Ref Range | Performed | Pathologist | | | | | At | Signature | + + + + + + | WHITE BLOOD | 14.5 (A) | 3.2 - 11.0 X10 | [facility] | | | CELL COUNT | | 3/uL | [facility] | | | | | | LABORATORY | | + + + + + + | HEMOGLOBIN | 12.8 | 12.0 - 18.0 | [facility] | | | | | g/dL | [facility] | | | | | | LABORATORY | | + + + + + + | RED BLOOD | 4.11 | 3.5 - 6.0 X10 | [facility] [...] + + + + | MCV | 94.9 | 82 - 100 fL | [facility] | | | | | | [facility] | | | | | | LABORATORY | | + + + + + + | MCH | 31.1 | 28.0 - 34.7 pg | [facility] | | | | | | [facility] | | | | | | LABORATORY | | + + + + + + | MCHC | 32.8 | 32 - 36 g/dL | [facility] | | | | | | [facility] | | | | | | LABORATORY | | + + + + + + | RDW | 16.4 (A) | 12 - 16 % | [facility] | | | | | | [facility] | | | | | | LABORATORY | | + + + + + + | PLATELET | 345 | 140 - 350 X10 3 | [facility] | | | COUNT | | | [facility] | | | | | | LAB[facility]ATORY | | + + + + + + | MPV | 9.0 | 7.0 - 12.0 fL | [facility] | | | | | | [facility] | | | | | | LABORATORY | | + + + + + + | NEUTROPHIL | 72.6 | 40 - 80 % | [facility] | | | % | | | [facility] | | | | | | LABORATORY | | + + + + + + | LYMPHOCYTE | 17.0 | 15 - 45 % | [facility] | | | % | | | [facility] | | | | | | LAB[facility]ATORY | | + + + + + + | EOS % | 1.8 | 0 - 6.0 % | [facility] | | | | | | [facility] | | | | | | LAB[facility]ORY | | + + + + + + | BASO % | 0.9 | 0 - 2.0 % | [facility] | | | | | | [facility] | | | | | | LABORATORY | | + + + + + + | MONOCYTE % | 7.7Comment: Collected by | 4.0 - 12.0 % | [facility] | | | | Care Unit: Y | | [facility] | | | | | | LABORATORY | | + + + + + + + + | Specimen | + + | | + + + + + | Narrative | Performed At | + + + | Collected by Care Unit: Y | [facility] | | | LABORATORY | + + + + +---------+ + + | Performing | Address | City/State/Zipcode | Phone Number | | Organization | | | | + +---------+ + + | [facility] | | | | | LAB[facility]ATORY | | | | + +---------+ + + LACTIC ACID (05/03/2015 8:45 PM PDT) + + + + + + | Component | Value | Ref Range | Performed | Pathologist | | | | | At | Signature | + + + + + + | LACTATE | 1.6Comment: Collected by | 0.4 - 2.2 MEQ/L | [facility] | | | | Care Unit: Y | | [facility] | | | | | | LABORATORY | | + + + + + + + + | Specimen | + + | | + + + + + | Narrative | Performed At | + + + | Collected by Care Unit: Y | [facility] | | | LABORATORY | + + [...]
--- OUTSIDE RECORDS SUMMARY | ~2020-03-20 | XMS | Encounter Summary ---
Demographics + + + | Address | [address] [place] [address] | | | [place] [address] | + + + | Home Phone | | + + + | Preferred Language | Unknown | + + + | Marital Status | Single | + + + | Confucianist Affiliation | PEN | + + + | Race | White | + + + | Ethnic Group | Not or | + + + Author + + + | Author | [facility] | + + + | Organization | [facility] | + + + | Address | Unknown | + + + | Phone | Unavailable | + + + Support + + + + + | Name | Relationship | Address | Phone | + + + + + | Aileen Aranda | ECON | [address] | | | | | [place] [address] | | + + + + + Care Team Providers + +------+ + | Care Ore Charger Name | Role | Phone | + +------+ + | Romain Harrington MD | PCP | | + +------+ + Encounter Details +--------+ + + + + | Date | Type | Department | Care Team | Description | +--------+ + + + + | 05/04/ | Discharge | [facility] | Bruno Gray MD | Discharge Summaries | | 2015 | Summary-Tra | [address] | [facility] | | | | nscribed | [place] | Med Cntr | | | | | [phone] | [facility] [address] | | | | | [address] | | | | | | [place] | | | | | | [address] | | | | | | | [...] documented as of this encounter Discharge Summaries Bruno Gray MD - 05/10/2015 1:26 PM [facility] DISCHARGE SUMMARY [address] ADDENDUM [place] [id number] ADDENDUM: DATE OF ADMISSION: 05/04/2015 Because there is minimal change to improvement for his scrotal cellulitis, cefdinir was discussed in detail with infectious disease doctor at the [facility], Srinivas Lafleur, upon discharge, stating that cefdinir at 300 mg b.i.d. is being continued and if there is need to increase it any further based on patient's weight. Srinivas Lafleur spoke with Marlin Winter, who is a pharmacist at the [facility], and their mutual decision was to keep the patient on b.i.d. dosing until he gets seen in the infectious disease clinic early next week. The scheduling folks will be calling Aranda regarding this appointment as I was instructed from Dr. Lafleur. A correction from earlier notes, Alaina Malik was the lead clinical infectious disease physician. She was not a nurse as I alluded to in earlier notes. Contact information for Marlin Winter, the pharmacist at the [facility], was [phone] [facility] 0523. ILL/MedQ /[id number] Electronically Signed 05/20/15 0736 MD MANOJ Abbott EDWARD E [id number] : 50 [id number] ADMIT DATE: 05/04/15 DISCHARGE DATE: 05/10/15 Bruno Verdin MD - 05/10/2015 12:02 PM [facility] DISCHARGE SUMMARY [address] [place] [id number] SARTHAK ARANDA DATE OF ADMISSION: 05/04/2015 DATE OF DISCHARGE: 05/10/2015 DISCHARGE DIAGNOSES: 1. Epididymal orchitis with scrotal cellulitis. 2. Hypokalemia secondary to diuretics. 3. Insulin-dependent diabetes mellitus type 2. 4. Chronic atrial fibrillation, rate controlled and on anticoagulation. 5. Human immunodeficiency virus with CD4 count in February 2015 of 873 and undetectable viral load. 6. Chronic kidney disease stage 3, stable. 7. Obstructive sleep apnea, on CPAP. 8. Venostasis dermatitis with hyperpigmentation. 9. Congestive heart failure history but unclear what ejection fraction. This is chronic. NYHA between 2 and 3, more close to 3. 10.Gout, stable. CONSULTATIONS: Urology. PROCEDURES AND OPERATIONS: None. IMAGIN. First ultrasound: Abnormal color flow and abnormal Doppler imaging of the left testicle, high resistive flow within the left testicle. Slightly decreased vascular flow within the right testicle. Slight amount of increased vascular flow within the right epididymis, nonspecific, but corresponds to epididymitis. Large bilateral hydroceles, scrotal thickening on the right and left. 2. Second ultrasound: Large bilateral hydroceles re-demonstrated, mild scrotal wall thickening. No current evidence of epididymo-orchitis. Both testicles have homogeneous and normal echogenicity. Hypervascularity within the right epididymal head has resolved. BRIEF HISTORY: A 64-year-old male with history of HIV, last CD4 count in February 2015 was 873, has long history of hydroceles, he states for the last 2-3 years, presenting with chief complaint of scrotal pain and swelling. He states about 2 weeks prior to admission, on April 23 he went to the [facility] for urinary tract symptoms and was diagnosed with presumably cystitis with E coli growing in his urine. He was, at that point, given a prescription antibiotic, which he never filled right away. The prescription was subsequently filled about 8 days later on the with doxycycline. It was recommended at 100 mg b.i.d., but he recalls only taking 1 tablet daily. His symptoms of scrotal swelling and pain were what brought him to our emergency department on 05/04/2015. He stated the pain was mostly on the right scrotal region. However, his urinary symptoms were getting better, specifically stating that the blood in the urine was clearing up. The patient was not forthcoming with a lot of information because he had told the story multiple times in the ED. SARTHAK ARANDA [id number] : 50 [id number] ADMIT DATE: 05/04/15 DISCHARGE DATE: 05/10/15 HOSPITAL COURSE: 1. Epididymo-orchitis, acute, unlikely related to sexual risk activity. His last sexual intercourse was 3 years ago and he has not conducted any high risk oral sexual behaviors either. Hence, unclear etiology to exactly why, but underlying hydrocele could be playing a factor that he has had long-term. In addition, he was initially started on ceftriaxone in addition to the doxycycline he was taking, but we had ramped this up to the optimal dosing of 100 mg b.i.d. instead of him taking only once a day. This did help the erythema that was noted on the right scrotum and kept it at bay. He was on this dual regimen for a few days before we started thinking about changing him to an oral form, and hence doxycycline was chosen b.i.d. Given this, he did not retake adequate and recommended dose prior to admission. So we started him on b.i.d. dosing and monitored him for 24 hours only to find out that the scrotal erythema that was predominantly on the right had now spread to the left as well. In addition, Urology was reconsulted at this point because initially they did not want any surgical intervention, and given this new development, Dr. Estes evaluated the patient and again stated that there is no further intervention needed, especially in light of the fact that the 2nd ultrasound was showing resolution of the hypervascularity in the right epididymis. Doxycycline could not be continued at this time since he had failed therapy and we put him back on a 3rd generation cephalosporin but an oral one, specifically cefdinir. We watched him for 48 hours and his vitals remained stable. The erythema globally in the scrotum still was present, however, the overall enlarged scrotum was decreasing in size. In addition, there was no white cell bump on this course of cefdinir, and he will be going home on this. Did review Dr. Funez's note regarding continuation and duration of these antibiotics, and his recommendation is 3 weeks. Currently, patient has been on a therapeutic dose of cefdinir since the 08 of May and would like to continue for 3 weeks in total. However, the [facility] only allows 14 days of antibiotics maximum for now. I am okay with this plan given that [facility] for further evaluation. In addition, patient's pain control was well moderated here. 2. Hypokalemia. We were struggling to maintain adequate potassium levels. He was asymptomatic during all this time. This was likely due to his 320 mg of Lasix that was divided b.i.d., in addition to the chlorthalidone 25 mg. He was also taking amiloride, which is a potassium-sparing diuretic, which for some reason was held in the initial part of the hospital course. Hence, we started him on potassium-sparing diuretics, repleted his potassium as well orally and IV, and decreased his Lasix to only 160 mg daily basis as opposed to b.i.d. This helped to bring his potassium finally back within control, and he will be going home with the regimen as dictated down below in the medication list. 3. Insulin-dependent diabetes mellitus. He was noted to have low sugars here, likely because of the diet change compared to what he eats at home. Hence, we decreased his Lantus from 50 to 40 units b.i.d., along with sliding scale. 4. Chronic atrial fibrillation. His rate has been controlled through the hospital course and he was on anticoagulation that was managed with warfarin and was titrated with Pharmaceutical's expertise. 5. HIV with reported undetectable viral load, and speaking with Karin Malik, who is the infectious disease lead clinical at the [facility], his last CD4 count in February 2015 was 873. She did not suspect that this was an opportunistic infection causing epididymo-orchitis and did agree with 3rd generation cephalosporins as it would not only cover for the E coli that we isolated in his urinalysis from SARTHAK ARANDA [id number] : 50 [id number] ADMIT DATE: 05/04/15 DISCHARGE DATE: 05/10/15 the [facility] when he saw them 2 weeks ago, but also for gonococcal strain that is going about in the community here at this point, despite knowing that patient had not been on any high-risk sexual behavior. The patient also was continued on his home dose antiretroviral therapy without incident. 6. Chronic kidney disease stage 3. Held stable at this point. His baseline creatinine is 1.9, and during the hospital course, he was between 1.6 to 1.7. 7. Obstructive sleep apnea, stable on CPAP. 8. Venostasis dermatitis with hyperpigmentation with a right pretibial region that had ulceration about the size of a dime with sanguinous seepage. This has remained unchanged. 9. CHF, unclear what ejection fraction, but this is chronic, compensated, and NYHA between 2 to 3, more close to 3. I noticed he was not on an MEGAN inhibitor, but he was on a beta ladonna. He was also on isosorbide mononitrate instead of dinitrate, and hydralazine. The details of this I have dictated in my progress note from 05/10/2015, and I will keep these medications until he follows up with PCP for further management. The important thing is he is clinically compensated with his CHF currently. 10.Gout, stable on allopurinol. DISCHARGE PHYSICAL EXAMINATION: VITAL SIGNS: Blood pressure is 130/80, pulse of 60. Respirations 20, repeat by MD was 14 at rest. Saturating 95% on room air. Temperature 36.4. GENERAL: No acute distress. Morbidly obese. PSYCH: Pleasant affect, alert. EYES: Extraocular movements intact. Anicteric sclerae. Pupils equal and round. ENMT: No facial erythema. Oral mucosa is moist. No thrush. CARDIOVASCULAR: Regular rate and rhythm. Unable to assess for definitive heart sounds because the heart sounds are faint secondary to body habitus. GI: Increased abdominal girth. No gross skin lesions. Unable to assess for definitive bowel sounds but did hear them faintly. RESPIRATORY: Speaking full sentences. Nonlabored breathing. However, he does get a little short of breath from a lying to a sitting position as he holds his breath during this maneuver and he gets back to his regular breathing rhythm. Also uses CPAP while he takes a nap. GENITOURINARY: Penis remains buried. Scrotal erythema continues to be present on the entire scrotum. Induration is prominent still on the right scrotum. No induration noted on the left scrotum. There is no penile discharge. Unable to assess testes because of the pain on the right. Left testis nontender. DISCHARGE LABORATORIES: 1. CBC with WBC of 9, it was 9.3 yesterday. Platelets are 359. Rest of CBC is unremarkable. 2. Coagulation: INR is 2.3, PT of 22.9. 3. Chemistry with a potassium 3.7, it was 3.0 yesterday. Creatinine 1.7, baseline is 1.9, it was 1.6 yesterday. Glucose 93 this morning. Rest of chemistry is unremarkable. DISCHARGE MEDICATIONS: New medications: Cefdinir 300 mg capsule b.i.d. for 14 days. He has already had 2-1/2 days of this. Continued medications: 1. Amiloride 10 mg daily. 2. PhosLo 667 mg daily. 3. Fish oil 1200 mg daily. 4. Gabapentin 600 mg half a tablet b.i.d. 5. Hydroxyzine 25 mg b.i.d. as needed. SARTHAK ARANDA [id number] : 50 [id number] ADMIT DATE: 05/04/15 DISCHARGE DATE: 05/10/15 6. [place] 5/325 mg 1 tablet q.4 hours as needed. 7. Lactobacillus 2 tablets b.i.d. 8. Magnesium oxide 420 mg b.i.d. 9. Sertraline 75 mg daily. 10.Allopurinol 100 mg daily. 11.Chlorthalidone 25 mg daily. 12.Hydralazine 10 mg b.i.d. 13.Cholecalciferol 1000 units daily. 14.Isosorbide mononitrate 30 mg daily. 15.Insulin aspart/NovoLog 30 units t.i.d. 16.Potassium chloride 20 mEq p.o. q.i.d. 17.Triumeq 1 tablet daily. Changed medications: 1. Lasix 160 mg b.i.d., down to 160 mg daily. 2. Warfarin 2.5 mg daily. He was taking 5 mg intermittently during the week, but given his antibiotic at this point, we are decreasing it. He is to follow up with the anticoagulation clinic at the [facility] for further management. 3. Lantus 40 units subcu b.i.d., down from 50 units subcu b.i.d. Stopped medications: 1. Doxycycline. 2. Warfarin 5 mg Wednesday, Wednesday, Wednesday, Wednesday. DISCHARGE FOLLOWUP: 1. With Dr. Estes within 3-7 days. 2. With [facility] infectious disease physician/specialist within 3-7 days. 3. Romain Harrington within 1-2 weeks. 4. Anticoagulation clinic within 1-2 days. DISCHARGE ACTIVITY: As tolerated. DISCHARGE DIET: Diabetic and low salt and low sodium. Spent more than 30 minutes counseling and coordinating care. DEYANIRA/MedQ /[id number] CC: Iain WHITE M.D. JESSE M. PAPAC, M.D. Electronically Signed 05/20/15 0735 Bruno Gray MD ARANDASARTHAK [id number] : 50 [id number] ADMIT DATE: 05/04/15 DISCHARGE DATE: 05/10/15 Tdocumented in this encounter Plan of Treatment Not on filedocumented as of this encounter Visit Diagnoses Not on filedocumented in this encounter"
--- OUTSIDE RECORDS SUMMARY | ~2020-03-20 | XMS | Encounter Summary ---
Demographics + + + | Address | [address] [place] [address] | | | [place] [address] | + + + | Home Phone | | + + + | Preferred Language | Unknown | + + + | Marital Status | Single | + + + | Temple Affiliation | PEN | + + + | Race | White | + + + | Ethnic Group | Not or | + + + Author + + + | Author | [facility] | + + + | Organization | [facility] | + + + | Address | Unknown | + + + | Phone | Unavailable | + + + Support + + + + + | Name | Relationship | Address | Phone | + + + + + | Aileen Aranda | ECON | [address] | | | | | [place] [address] | | + + + + + Care Team Providers + +------+ + | Care Earth Moving Technician Name | Role | Phone | [...] | | Results for this | | [id number] | e | 6:03 PM | | [...] POINT | | | GLUCOSE, | ID: [id number]: | | OF CARE | | | POC | [id number] Naida Lyles | | TESTING | | | |Public Affairs Officer: [phone] Naida Lyles | | | | | [...] | + +---------+ + + SCROTAL ULTRASOUND [id number] (05/08/2015 6:03 PM PDT) + + | Specimen | + + | | + + + + + | Narrative | Performed At | + + + | Name: | [facility] | | ARANDA,SARTHAK E | DEPARTMENT OF | | Phys: Bruno Gray MD | RADIOLOGY | | | | | : 1950 Age: 64 Sex: M | | | Acct: [id number] Loc: 426 2 | | | | | | Exam Date: 05/08/2015 Status: ADM IN | | | Radiology No: [id number] | | | Unit No: | | | [id number] EXAM# TYPE/EXAM | | | RESULT | | | [id number] US/SCROTAL ULTRASOUND [id number] | | | EXAM: SCROTAL ULTRASOUND | [...] | | | Transcribed Date/Time: 05/08/2015 (1803) Provisioning Specialist: | | | SPEECHQ PAGE 1 Signed Report | | | | | + + + + + | Procedure Note | + + | Interface, Radiology Results - 05/08/2015 6:04 PM PDT | | Name: SARTHAK ARANDA | | Phys: Bruno Gray MD : | | 1950 Age: 64 Sex: M Acct: [id number] | | Loc: 426 2 Exam Date: 05/08/2015 | | Status: ADM IN Radiology No: [id number] | | Unit No: [id number] EXAM# TYPE/EXAM | | RESULT [id number] US/SCROTAL ULTRASOUND | | [id number] EXAM: SCROTAL ULTRASOUND | | CLINICAL HISTORY: [...] | Transcribed Date/Time: | | 05/08/2015 (1803) Provisioning Specialist: GABRIELQ PAGE 1 Signed Report | | [...] | | | | Transcribed Date/Time: 05/08/2015 (9996) | | Provisioning Specialist: SPEECHQ | | | | | | [...] POINT | | | GLUCOSE, | ID: [id number]: | | OF CARE | | | POC | [id number] Raisa Jesus Manuel | | TESTING | | | |Public Affairs Officer: [phone] Raisa Ken | | | | | [...] POINT | | | GLUCOSE, | ID: [id number]: | | OF CARE | | | POC | [id number] Raisa Ken | | TESTING | | | |Public Affairs Officer: [phone] Raisa Ken | | | | | [...] [facility] POINT | | | GLUCOSE, | [id number]: | | OF CARE | | | POC | [id number] Carie Mueller | | TESTING | | [...] [facility] | | | PLASMA | to robotic welding operator: ADD ON | | MEDITECH | | | (LAB) | PREFERRED | | LABORATORY | | + + + + + + + + | Specimen | + + | | + + + + + | Narrative | Performed At | + + + | 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 [facility] | | | PLASMA | to robotic welding operator: ADD ON | mmol/L | MEDITECH | | | (LAB) | PREFERRED | | LABORATORY | | + + + + + + + + | Specimen | + + | | + + + + + | Narrative | Performed At | + + + | 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
--- OUTSIDE RECORDS SUMMARY | ~2020-03-20 | XMS | Encounter Summary ---
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 | COUNT | | mm | DEPARTMENT | | | | | | OF | | | | | | PATHOLOGY | | + + + + + + | RED CELL | 3.31 (L) | 4.50 - 5.90 | [facility] | | | COUNT | | M/cu mm | DEPARTMENT | | | | | | OF | | | | | | PATHOLOGY | | + + + + + + | HEMOGLOBIN | 10.1 (L) | 13.5 - 17.5 | [facility] | | | | | g/dL | DEPARTMENT | | | | | | OF | | | | | | PATHOLOGY | | + + + + + + | HEMATOCRIT | 30.5 (L) | 41.0 - 53.0 % | [facility] | | | | | | DEPARTMENT | | | | | | OF | | | | | | PATHOLOGY | | + + + + + + | MCV | 92.3 | 80.0 - 96.0 fL | [facility] | | | | | | DEPARTMENT | | | | | | OF | | | | | | PATHOLOGY | | + + + + + + | MCHC | 33.1 (L) | 33.4 - 35.5 | [facility] | | | | | g/dL | DEPARTMENT | | | | | | OF | | | | | | PATHOLOGY | | + + + + + + | RDW | 18.8 (H) | 11.5 - 15.0 % | [facility] | | | | | | DEPARTMENT | | | | | | OF | | | | | | PATHOLOGY | | + + + + + + | PLATELET | 98 (L) | 150 - 400 K/cu | [facility] | | | COUNT | | mm | DEPARTMENT | | | | | | OF | | | | | | PATHOLOGY | | + + + + + + | RBC | Anisocytosis + | | [facility] | | | MORPHOLOGY | | | DEPARTMENT | | | | | | OF | | | | | | PATHOLOGY | | | | | | | | | | | | | | | | | | | | | | | | | | | | | | | | | | Microcytosis + | | | | | | | | | | | | | | | | | | | | | | | | | | | | | | | | | | | | | | | | | | | | | | | | | | | | | | Polychromasia + | | | | + + + + + + + + | Specimen | + + | Blood - Blood | + + + + + + + | Performing | Address | City/State/Zipcode | Phone Number | | Organization | | | | + + + + + | [facility] | [address] | [place] [address] | | | PATHOLOGY | [address] | | | + + + + + 12 LEAD ECG (03/21/2012 4:04 PM PDT) + + + + + + | Component | Value | Ref Range | Performed | Pathologist | | | | | At | Signature | + + + + + + | VENTRICULAR | 77 | BPM | [facility] | | | RATE | | | OF | | | | | | CARDIOLOGY | | + + + + + + | ATRIAL RATE | 77 | BPM | [facility] | | | | | | OF | | | | | | CARDIOLOGY | | + + + + + + | P-R | 162 | ms | [facility] | | | INTERVAL | | | OF | | | | | | CARDIOLOGY | | + + + + + + | QRS | 88 | ms | [facility] | | | DURATION | | | OF | | | | | | CARDIOLOGY | | + + + + + + | QT | 418 | ms | [facility] | | | | | | OF | | | | | | CARDIOLOGY | | + + + + + + | QTC | 473 | ms | [facility] | | | | | | OF | | | | | | CARDIOLOGY | | + + + + + + | P AXIS | 26 | degrees | [facility] | | | | | | OF | | | | | | CARDIOLOGY | | + + + + + + | R AXIS | 91 | degrees | [facility] | | | | | | OF | | | | | | CARDIOLOGY | | + + + + + + | T AXIS | 71 | degrees | [facility] | | | | | | OF | | | | | | CARDIOLOGY | | + + + + + + | EKG | Sinus rhythm with | | [facility] | | | DIAGNOSIS | Premature | | OF | | | | supraventricular | | CARDIOLOGY | | | | complexesRightward | | | | | | axisBorderline | | | | | | ECGConfirmed by | | | | | | JESSI MEAZ | | | | | | [phone]) on 03/22/2012 | | | | | | 3:31:04 PM | | | | + + + + + + + + | Specimen | + + | | + + + + + | Narrative | Performed At | + + + | Please click | [facility] | | on view image for the detailed interpretation from [email or web address] results. | CARDIOLOGY | + + + + + + + + | Performing | Address | City/State/Zipcode | Phone Number | | Organization | | | | + + + + + | [facility] | [address] | [place], [place] | | | CARDIOLOGY | [address] | [address] | | + + + + + CARDIOLOGY (03/21/2012 12:00 AM PDT) + + + | Narrative | Performed At | + + + | | | + + + + + | Transcriptions | + + | Meme Hutton - 03/24/2012 10:06 AM PDT | + + documented in this encounter Visit Diagnoses + + | Diagnosis | + + | Chest wall pain Painful respiration | + + | Rash Rash and other nonspecific skin eruption | + + | ICD (implantable cardiac defibrillator) in place Automatic implantable cardiac | | defibrillator in situ | + + documented in this encounter Administered Medications + +--------+ +-------+------+------+ | Medication Order | MAR | Action | Dose | Rate | Site | | | Action | Date | | | | + +--------+ +-------+------+------+ | diphenhydrAMINE (aka BENADRYL) | Given | 03/22/20 | 25 mg | | | | capsule 25 mg 25 mg, oral, ONCE, | | 12 1:00 | | | | | 1 doseDaniela 03/22/12 at 0115 | | AM PDT | | | | + +--------+ +-------+------+------+ +---+---+ | | | +---+---+ + +---------+ +------+--------+---+ | morphine injection Inj 2-8 mg | New Bag | 03/21/20 | 8 mg | mL/hr | | | 2-8 mg, intravenous, EVERY 10 | | 12 9:23 | | | | | MINUTES NEEDED, 5 doses, | | PM PDT | | | | | Starting 03/21/12 at 1916, | | | | | | | Until Tu03/22/12 at 0722, | | | | | | | moderate pain | | | | | | + +---------+ +------+--------+---+ +---------+ +------+--------+---+ | New Bag | 03/21/20 | 4 mg | mL/hr | | | | 12 8:09 | | | | | | PM PDT | | | | +---------+ +------+--------+---+ | New Bag | 03/21/20 | 4 mg | mL/hr | | | | 12 7:38 | | | | | | PM PDT | | | | +---------+ +------+--------+---+ + +---+ | | | + +---+ | morphine injection 1 dose, | | | Starting Wed03/21/12 at 1936, | | | Until Wed03/21/12 at 1938 | | + +---+ | | | + +---+ + +-------+ +--------+---+---+ | nitroglycerin (aka NITROSTAT) | Given | 03/21/20 | 0.4 mg | | | | tablet 0.4 mg 0.4 mg, | | 12 6:44 | | | | | sublingual, EVERY 5 MINUTES | | PM PDT | | | | | NEEDED, Starting Wed03/21/12 at | | | | | | | 1607, Until Wed03/22/12 at 0722, | | | | | | | chest pain | | | | | | + +-------+ +--------+---+---+ +-------+ +--------+---+---+ | Given | 03/21/20 | 0.4 mg | | | | | 12 5:41 | | | | | | PM PDT | | | | +-------+ +--------+---+---+ | Given | 03/21/20 | 0.4 mg | | | | | 12 5:23 | | | | | | PM PDT | | | | +-------+ +--------+---+---+ +---+---+ | | | +---+---+ documented in this encounter
--- OUTSIDE RECORDS SUMMARY | ~2020-03-20 | XMS | Encounter Summary ---
Demographics + + + | Address | [address] [place] [address] | | | [place] [address] | + + + | Home Phone | | + + + | Preferred Language | Unknown | + + + | Marital Status | Single | + + + | Episcopalian Affiliation | PEN | + + + | Race | White | + + + | Ethnic Group | Not or | + + + Author + + + | Author | [facility] | + + + | Organization | [facility] | + + + | Address | Unknown | + + + | Phone | Unavailable | + + + Support + + + + + | Name | Relationship | Address | Phone | + + + + + | Aileen Nelson | ECON | [address] | | | | | [place] [address] | | + + + + + Care Team Providers + +------+ + | Care Gathering Machine Setter Name | Role | Phone | + [...] | | | | Procedures | on [facility] [address] | | | | | PET SKULL | [facility] | [facility] | | | | | BASE TO | CENTER | Pav[address], [address] | | | | | [address] | [address] | floor | | | | | | [address] | [place], [place] | | | | | | [address] | [address] | | | | | | [place], | Phone: | | | | | | [place] [address] | [phone] | | | | | | Phone: | Fax: | | | | | | [phone] | [phone] | | | | | | Fax: | | | | | | | [phone] | | +--------+--------+ + + + + Encounter Details +--------+ + + + + | Date | Type | Department | Care Team | Description | +--------+ + + + + | 10/15/ | Outside | Nuclear Medicine | Deshaun Warren, | | | 2011 | Referral | at [facility] [address] | [place] [address] | | | | Order | Kasie Peralta [facility] | [facility] [address] | | | | | [address] | [address] | | | | | Basement [place], | [address] | | | | | [place] [address] | [place] [address] | | | | | [phone] | [phone] | | | | | | | [...]
--- OUTSIDE RECORDS SUMMARY | ~2020-03-20 | XMS | Encounter Summary ---
Demographics + + + | Address | [address] [place] [address] | | | [place] [address] | + + + | Home Phone [...] Author + + + | Author | [facility] | + + + | Organization | [facility] | + + + | Address | Unknown | + + + | Phone | Unavailable | + + + Support + + + + + | Name | Relationship | Address | Phone | + + + + + | Aileen Nelson | ECON | [address] | | | | | [place] [address] | | + + + + + Care Team Providers + +------+ + | Care Private Household Worker Name | Role | Phone | + +------+ + PCP | Unavailable | + +------+ + Encounter Details +--------+ + + + + | Date | Type | Department | Care Team | Description | +--------+ + + + + | 10/13/ | Hospital | Diagnostic Imaging | | | | 2009 | Encounter | Services at [facility] | | | | | | [address] | | | | | | [place] An [facility] | | | | | | [facility], [address] [place] [address] | | | | | | [place], [place] | | | | | | [address] | | | | | | [phone] | | | +--------+ + + + [...] | + +--------+ + + + | ORDERS OTHER | | 10/13/2009 | | Results for this | | | | 12:00 AM | | procedure are in the | | | | PST | | results section. | + +--------+ + + + documented in this encounter Results ORDERS OTHER (10/13/2009 12:00 AM PST) + + + | Narrative | Performed At | + + + | | | + + + + + | Procedure Note | + + | Brennen Faculty - 02/23/2010 10:13 AM PDT | | | + + documented in this encounter Visit Diagnoses Not on filedocumented in this encounter"
--- OUTSIDE RECORDS SUMMARY | ~2020-03-20 | XMS | Encounter Summary ---
Demographics + + + | Address | [address] | | | [place] [address] | + + + | Home Phone | | + + + | Preferred Language | Unknown | + + + | Marital Status | | + + + | Yazidism Affiliation | 1038 | + + + | Race | Unknown | + + + | Ethnic Group | Unknown | + + + Author + + + | Author | [facility] | | | and [place] | + + + | Organization | [facility] | | | and [place] | + + + | Address | Unknown | + + + | Phone | Unavailable | + + + Support + + + + + | Name | Relationship | Address | Phone | + + + + + | Aileen Nelson | ECON | [address] [facility] | | | | | [place] | | | | | [address] | | + + + + + Care Team Providers + +------+ + | Care Camp Head Counselor Name | Role | Phone | + +------+ + | Jericho Cao MD | PCP | | + +------+ + Reason for Visit + + + | Reason | Comments | + + + | Post-op Exam | | + + + | Hip Problem | | + + + Surgery OP (Routine) + +--------+ + + + + | Status | Reason | Specialty | Diagnoses / | Referred By | Referred To | | | | | Procedures | Contact | Contact | + +--------+ + + + + | Authorized | | Orthopedic | Diagnoses | Black, | Black, | | | | Surgery | Fracture of | Hui, | Hui, | | | | | unspecified | MD [address] | MD [address] | | | | | part of | [address] | BLVD | | | | | neck of | [place] | [place] | | | | | unspecified | [address] | [address] Phone: | | | | | femur, | Phone: | [phone] | | | | | initial | [phone] | Fax: | | | | | encounter | Fax: | [phone] | | | | | for closed | [phone] | | | | | | fracture | | | | | | | ([facility]) L hip | | | | | | | | | | | | | | cephalomedul | | | | | | | domingo nailing | | | | | | | - PDF< 1 | | | | | | | hr | | | + +--------+ + + + + Encounter Details +--------+---------+ + + + | Date | Type | Department | Care Team | Description | +--------+---------+ + + + | 12/14/ | Office | [facility] | Guille Oliveira, | Closed fracture of | | 2019 | Visit | [address] [address] | PA-C [address] | left hip with | | | | [address] [place], [place] | [address] | routine healing, | | | | [address] | [place], [place] | subsequent encounter | | | | [phone] | [address] | (Primary Dx) | | | | | [phone] | | | | | | | | +--------+---------+ + + + Social History [...] + + + | Blood Pressure | - | - | | + + + + + | Pulse | 72 | 2019 10:26 AM | | | | | PDT | | + + + + + | Temperature | 37.1 C (98.7 F) | 2019 10:26 AM | | | | | PDT | | + + + + + | Respiratory Rate | - | - | | + + + + + | Oxygen Saturation | 98% | 2019 10:26 AM | | | | | PDT | | + + + + + | Inhaled Oxygen | - | - | | | Concentration | | | | + + + + + | Weight | 146.5 kg (323 lb) | 2019 10:26 AM | | | | | PDT | | + + + + + | Height | 182.9 cm (6') | 2019 10:26 AM | | | | | PDT | | + + + + + | Body Mass Index | 43.81 | 2019 10:26 AM | | | | | PDT [...] + + documented as of this encounter Patient Instructions Patient Instructions Guille Oliveira PA-C - 2019 10:05 AM PDTImaging shows good in terval healing and stable hardware Continue physical therapy and progress activity as tolerated Return visit in 2 months. Call for an earlier appointment if having any questions or michela rns documented in this encounter Progress Notes Guille Oliveira PA-C - 2019 10:05 AM PDT 2019 INTERVAL HISTORY Patient presents to the office 9 weeks s/p L hip cephalomedullary nailing. He reports mild aching in the hip but is currently rated as 4/10 in severity. He has been participating in physical therapy at his assisted care facility and is walking short distances with the assi stance of a walker. Denies any instability in the hip. No altered sensation of extremity d istally. Vitals: 12/15/19 1026 Pulse: 72 Temp: 37.1 C (98.7 F) PainSc: 4 PHYSICAL EXAMINATION LLE - hip: TTP over the lateral hip. Diffuse chronic swelling of the lower leg. Sensation intact distally. DIAGNOSTIC DATA: Recent Results (from the past 360 hour(s)) XR Femur Left 2+Vw Narrative X-ray 2 views left femur: Status post cephalo-medullary nail fixation of an intertrochanteric femur fracture. No hardware complication is appreciated. There is abundant callus noted around the fracture site. Electronically signed by: Hui Parsons MD 2019 12:55 PM ASSESSMENT/ PLAN 1. Closed fracture of left hip with routine healing, subsequent encounter XR Femur Left 2+ Vw Ed is 9 weeks s/p L hip cephalomedullary nailing. Imaging shows stable appearing hardware and interval healing of the intertrochanteric femur fracture. I encouraged ongoing particip ation in physical therapy and to increase weightbearing/ambulating is much tolerable. We wi ll reassess his progress in 2 months. Advised to contact the office with any questions or c oncerns. Orders Placed This Encounter Procedures XR Femur Left 2+Vw Requested Prescriptions No prescriptions requested or ordered in this encounter Return in about 2 months (around 02/14/2020). Imaging shows good interval healing and stable hardware Continue physical therapy and progress activity as tolerated Return visit in 2 months. Call for an earlier appointment if having any questions or michela rns Xrays for next visit: 2 views left femur Electronically signed by: Guille Oliveira PA-C 12/18/2019 11:52 AM documented in thi s encounter Plan of Treatment Not on filedocumented as of this encounter Procedures + +--------+ + + + | Procedure Name | Priori | Date/Time | Associated Diagnosis | Comments | | | ty | | | | + +--------+ + + + | XR FEMUR LEFT 2+VW | Routin | 2019 | Closed fracture of | Results for this | | | e | 11:01 AM | left hip with | procedure are in the | | | | PDT | routine healing, | results section. | | | | | subsequent encounter | | + +--------+ + + + documented in this encounter Results XR Femur Left 2+Vw (2019 11:01 AM PDT) + + | Specimen | + + | | + + + + + | Narrative | Performed At | + + + | X-ray 2 views | [facility] | | left femur: Status post cephalo-medullary nail fixation of an | | | intertrochanteric femur fracture. No hardware complication is | | | appreciated. There is abundant callus noted around the fracture | | | site. Electronically signed by: Hui Parsons MD 2019 12:55 | | | PM | | + + + + +---------+ + + | Performing | Address | City/State/Zipcode | Phone Number | | Organization | | | | + +---------+ + + | [facility] | | | | + +---------+ + + documented in this encounter Visit Diagnoses + + | Diagnosis | + + | Closed fracture of left hip with routine healing, subsequent encounter - Primary | + + documented in this encounter"
--- OUTSIDE RECORDS SUMMARY | ~2020-03-20 | XMS | Encounter Summary ---
Demographics + + + | Address | [address] [place] [address] | | | [place] [address] | + + + | Home Phone | | + + + | Preferred Language | Unknown | + + + | Marital Status | Single | + + + | Jain Affiliation | PEN | + + + [...] | | | | | [place] [address] | | + + + + + Care Team Providers + +------+ + | Care Environmental Field Technician Name | Role | Phone | [...] [address] | | | | | | [facility] [address] | | | | | | [phone] | | | | | | | [...] of | | | | | | [facility] | | | | | [...] + + + + + | [facility] | [address] | [place] [address] | | | DERMATOPATHOLOGY | [address] | | | + + + + + documented in this encounter Visit Diagnoses Not on filedocumented in this encounter"
--- OUTSIDE RECORDS SUMMARY | ~2020-03-20 | XMS | Clinical Summary ---
Demographics + + + | Address | [address] [place] [address] | | | [place] [address] | + + + | Home Phone | | + + + | Preferred Language | Unknown | + + + | Marital Status | Single | + + + | Mandaen Affiliation | PEN | + + + | Race | White | + + + | Ethnic Group | Not or | + + + Author + + + | Author | [facility] | + + + | Organization | [facility] | + + + | Address | Unknown | + + + | Phone | Unavailable | + + + Support + + + + + | Name | Relationship | Address | Phone | + + + + + | Aileen Nelson | ECON | [address] | | | | | [place] [address] | | + + + + + Care Team Providers + +------+ + | Care Biomass Power Plant Superintendent Name | Role | Phone | + +------+ + | Romain Harrington MD | PCP | | + +------+ + Source Comments MANUEL is fully live on both [facility] and [facility] & [facility] Allergies + + + + + + | Active Allergy | Reactions | Severity | Noted | Comments | | | | | Date | | + + + + + + | Amoxicillin | Pruritus | | 03/21/20 | | | | | | 12 | | + + + + + + | Cephalexin | Pruritus | | 03/21/20 | | | | | | 12 | | + + + + + + | Ciprofloxacin Hcl | | | 03/21/20 | Acute interstitial | | | | | 12 | nephritis | + + + + + + | Furosemide | | | 03/21/20 | Acute interstitial | | | | | 12 | nephritis | + + + + + + | Niacin | | | 03/21/20 | Flushing | | | | | 12 | | + + + + + + | Simvastatin | Unknown | | 05/17/20 | | | | | | 15 | | + + + + + + | Sulfa (Sulfonamide | Pruritus | | 03/21/20 | | | Antibiotics) | | | 12 | | + + + + + + | Tape, Occlusive | Rash | | 03/21/20 | | | Adhesive | | | 12 | | + + + + + + | Triamcinolone | Rash | | 03/21/20 | | | | | | 12 | | + + + + + + | Vancomycin | Pruritus | | 03/21/20 | | | | | | 12 | | + + + + + + Medications + + + +---------+------+------+-------+ | Medication | Sig | Dispensed | Refills | Star | End | Statu | | | | | | t | Date | s | | | | | | Date | | | + + + +---------+------+------+-------+ | calcium acetate | Take 1,334 mg by | | 0 | | | Activ | | 667 mg Oral Capsule | mouth three times | | | | | e | | | daily with meals. | | | | | | + + + +---------+------+------+-------+ | camphor-menthol | Apply to affected | | 0 | | | Activ | | 0.5-0.5 % Topical | area as needed. | | | | | e | | Lotion | | | | | | | + + + +---------+------+------+-------+ | gabapentin 600 mg | Take 300 mg by mouth | | 0 | | | Activ | | Oral Tablet | two times daily. | | | | | e | + + + +---------+------+------+-------+ | Insulin Asp | Inject 30 Units | | 0 | | | Activ | | Prt-Insulin Aspart | under the skin | | | | | e | | 100 unit/mL (70-30) | (SUBC) before meals. | | | | | | | Subcutaneous Insulin | | | | | | | | Pen | | | | | | | + + + +---------+------+------+-------+ | insulin glargine | Inject 40 Units | | 0 | | | Activ | | 100 unit/mL | under the skin | | | | | e | | Subcutaneous | (SUBC) two times | | | | | | | Solution | daily. | | | | | | + + + +---------+------+------+-------+ | metoprolol | Take 50 mg by mouth | | 0 | | | Activ | | tartrate 50 mg Oral | once daily. | | | | | e | | Tablet | | | | | | | + + + +---------+------+------+-------+ | warfarin 5 mg Oral | Take 2.5 mg by | | 0 | | | Activ | | TabletIndications: | mouth. As directed | | | | | e | | cerebral | by clinic | | | | | | | thromboembolism | Indications: | | | | | | | prevention | Cerebral | | | | | | | | Thromboembolism | | | | | | | | Prevention | | | | | | + + + +---------+------+------+-------+ | furosemide 80 mg | Take 80 mg by mouth | | 0 | | | Activ | | oral tablet | two times daily. | | | | | e | + + + +---------+------+------+-------+ | aMILoride 5 mg | Take 5 mg by mouth | | 0 | | | Activ | | oral tablet | two times daily. | | | | | e | + + + +---------+------+------+-------+ | hydrOXYzine | Take 25 mg by mouth | | 0 | | | Activ | | pamoate 25 mg oral | twice daily as | | | | | e | | capsule | needed. | | | | | | + + + +---------+------+------+-------+ | | Take 1 tablet by | | 0 | | | Activ | | HYDROcodone-acetamin | mouth every four | | | | | e | | ophen 5-325 mg oral | hours as needed (Pt. | | | | | | | tablet | takes 3 tabs every | | | | | | | | 6-8 hours). Not to | | | | | | | | exceed 3250 mg of | | | | | | | | acetaminophen from | | | | | | | | all products per 24 | | | | | | | | hour period. | | | | | | + + + +---------+------+------+-------+ | Lactobacillus | Take 2 capsules by | | 0 | | | Activ | | acidophilus oral | mouth two times | | | | | e | | capsule | daily. | | | | | | + + + +---------+------+------+-------+ | magnesium oxide | Take 420 mg by mouth | | 0 | | | Activ | | 400 mg oral tablet | two times daily. | | | | | e | + + + +---------+------+------+-------+ | sertraline 50 mg | Take 75 mg by mouth | | 0 | | | Activ | | oral tablet | once daily. | | | | | e | + + + +---------+------+------+-------+ | allopurinol 100 mg | Take 100 mg by mouth | | 0 | | | Activ | | oral tablet | once daily. | | | | | e | + + + +---------+------+------+-------+ | chlorthalidone 25 | Take 25 mg by mouth | | 0 | | | Activ | | mg oral tablet | once daily. | | | | | e | + + + +---------+------+------+-------+ | hydrALAZINE 10 mg | Take 10 mg by mouth | | 0 | | | Activ | | oral tablet | two times daily. | | | | | e | + + + +---------+------+------+-------+ | isosorbide | Take 30 mg by mouth | | 0 | | | Activ | | dinitrate 30 mg oral | once daily. | | | | | e | | tablet | | | | | | | + + + +---------+------+------+-------+ | potassium chloride | Take 20 mEq by mouth | | 0 | | | Activ | | SR 20 mEq oral | four times daily. | | | | | e | | tablet,ER | | | | | | | | particles/crystals | | | | | | | + + + +---------+------+------+-------+ | omega | Take 200 mg by mouth | | 0 | | | Activ | | 4-qeb-dge-fish oil | two times daily. | | | | | e | | (FISH OIL) | | | | | | | | 100-160-1,000 mg | | | | | | | | oral capsule | | | | | | | + + + +---------+------+------+-------+ | | Take 600 mg by mouth | | 0 | | | Activ | | ABACAVIR/DOLUTEGRAVI | once daily. | | | | | e | | R/LAMIVUDI | Indications: | | | | | | | (ABACAVIR-DOLUTEGRAV | 600/50/300 mg | | | | | | | IR-LAMIVUD | | | | | | | | ORAL)Indications: | | | | | | | | 600/50/300 mg | | | | | | | + + + +---------+------+------+-------+ | cefDINir 300 mg | Take 600 mg by mouth | | 0 | | | Activ | | oral capsule | two times daily. | | | | | e | + + + +---------+------+------+-------+ Active Problems + + + | Problem | Noted Date | + + + | Epididymitis | 05/17/2015 | + + + | Hydrocele sac | 05/17/2015 | + + + Social History + +-------+ [...] + + + | Blood Pressure | 138/86 | 05/17/2015 8:52 AM | | | | | PDT | | + + + + + | Pulse | 68 | 05/17/2015 8:52 AM | | | | | PDT | | + + + + + | Temperature | 36.9 C (98.4 F) | 03/21/2012 4:05 PM | | | | | PDT | | + + + + + | Respiratory Rate | 20 [...] | + + + + + | Pneumococcal | | | | | vaccination (1 of | 6 | | | | - PCV13) | | | | + + + + + | Influenza (Flu) | | | | | vaccination (#1) | 9 | | | + + + + + Results Not on filefrom Last 3 Months Insurance + +--------+ +--------+ + +--------+ | Payer | Benefi | Subscriber | Effect | Phone | Address | Type | | | t Plan | ID | natalie | | | | | | / | | Dates | | | | | | Group | | | | | | + +--------+ +--------+ + +--------+ | [employer] | [place] | xxxxxxxxx | Effect | | [address] | Indemn | | CONTRACT | INDUST | | nat[place] | | [id number] | ity | | | RIAL | | for | | [place], [place] | | | | ACCT | | all | | [id number] | | | | CONTRA | | dates | | | | | | [place] | | | | | | + +--------+ +--------+ + +--------+ | [employer] | VA | [phone] | Effect | [id number] | [address] | Agency | | ADMINISTRATION | COMMUN | | natalie | 8 | [phone] | | | | ITY | | for | | [place], | | | | [place] | | all | | [place] [address] | | | | RCE | | dates | | | | + +--------+ +--------+ + +--------+ | [employer]ET[employer]ANS | VETERA | [phone] | Effect | [id number] | [address] | Agency | | ADMINISTRATION | NS | | nat[place]ie | 8 | [phone] | | | | ADMINI | | for | | [place], | | | | STRATI | | all | | [place] [address] | | | | ON | | dates | | | | + +--------+ +--------+ + +--------+ | MEDICARE | MEDICA | xxxxxxxxxx | 09/20/18 | [phone] | [address] | Medica | | | RE | | 97-Pre | 1 | [phone] | re | | | PART A | | sent | | [place] | | | | | | | | [address] | | + +--------+ +--------+ + +--------+ + +--------+ +--------+ + + | Guarantor Name | Accoun | Relation to | Date | Phone | Billing Address | | | t Type | Patient | of | | | | | | | | | | + +--------+ +--------+ + + | Sarthak Nelson | Person | Self [birth year] | [address] | | | al/Fam | | 1950 | [phone] | [place] [address] | | | john | | | 6 (Home) | | + +--------+ +--------+ + + | Sarthak Nelson | Person | Self | [birth year] | [address] | | | al/Fam | | 1950 | [phone] | [place] [address] | | | john | | | 6 (Home) | | + +--------+ +--------+ + + | [id number] | Indust | Other | 09/20/ | | DEVONTE Arizmendi 414657 | | | rial | | 1875 | | [place] | | | | | | | [address] | + +--------+ +--------+ + + | Sarthak Nelson | [place] | Self | [birth year] | [address] | | | Sponso | | 1950 | [phone] | [place] [address] | | | red | | | 6 (Home) | | + +--------+ +--------+ + +"
--- OUTSIDE RECORDS SUMMARY | ~2020-03-20 | XMS | Encounter Summary ---
Demographics + + + | Address | [address] [place] [address] | | | [place] [address] | + + + | Home Phone | | + + + | Preferred Language | Unknown | + + + | Marital Status | Single | + + + | Zoroastrianism Affiliation | PEN | + + + | Race | White | + + + | Ethnic Group | Not or | + + + Author + + + | Author | [facility] | + + + | Organization | [facility] | + + + | Address | Unknown | + + + | Phone | Unavailable | + + + Support + + + + + | Name | Relationship | Address | Phone | + + + + + | Aileen Nelson | ECON | [address] | | | | | [place] [address] | | + + + + + Care Team Providers + +------+ + | Care Costume Technician Name | Role | Phone | + +------+ + PCP | Unavailable | + +------+ + Encounter Details +--------+ + + + + | Date | Type | Department | Care Team | Description | +--------+ + + + + | 10/13/ | Hospital | Diagnostic Imaging | | | | 2009 | Encounter | Services at [facility] | | | | | | [address] | | | | | | [facility] [facility] | | | | | | [facility], [address] [place] [address] | | | | | | [place], [place] | | | | | | [address] | | | | | | [phone] | | | +--------+ + + + [...]
--- OUTSIDE RECORDS SUMMARY | ~2020-03-20 | XMS | Encounter Summary ---
Demographics + + + | Address | [address] [place] [address] | | | [place] [address] | + + + | Home Phone [...] Author + + + | Author | [facility] | + + + | Organization | [facility] | + + + | Address | Unknown | + + + | Phone | Unavailable | + + + Support + + + + + | Name | Relationship | Address | Phone | + + + + + | Aileen Nelson | ECON | [address] | | | | | [place] [address] | | + + + + + Care Team Providers + +------+ + | Care Light Industrial Supervisor Name | Role | Phone | + +------+ + | Romain Harrington MD | PCP | | + +------+ + Reason for Visit + + + | Reason | Comments | + + + | Appointment | | | Cancelled By Patient | | + + + Encounter Details +--------+ + + + + | Date | Type | Department | Care Team | Description | +--------+ + + + + | 06/06/ | Telephone | [facility] | Edmond Estes, | Appointment | | 2014 | | [address] | [address] | Cancelled By Patient | | | | [place], [place] | [place] [address] | | | | | [address] | [phone] | | | | | [phone] | | | +--------+ + + + [...]
--- OUTSIDE RECORDS SUMMARY | ~2020-03-20 | XMS | Encounter Summary ---
Demographics + + + | Address | [address] | | | [place] [address] | + + + | Home Phone | | + + + | Preferred Language | Unknown | + + + | Marital Status | | + + + | Muslim Affiliation | 1038 | + + + | Race | Unknown | + + + | Ethnic Group | Unknown | + + + Author + + + | Author | [facility] | | | and [place] | + + + | Organization | [facility] | | | and [place] | + + + | Address | Unknown | + + + | Phone | Unavailable | + + + Support + + + + + | Name | Relationship | Address | Phone | + + + + + | Aileen Nelson | ECON | [address] [facility] | | | | | [place] | | | | | [address] | | + + + + + Care Team Providers + +------+ + | Care Septic Tank Servicer Name | Role | Phone | + [...] | | | 2017 | | [address] [facility] | [address] [facility] | | | | | [place], [place] | [place], [place] | | | | | [address] | [address] | | | | | [phone] | [phone] | | | | | | | [...]
--- OUTSIDE RECORDS SUMMARY | ~2020-03-20 | XMS | Encounter Summary ---
Demographics + + + | Address | [address] [place] [address] | | | [place] [address] | + + + | Home Phone | | + + + | Preferred Language | Unknown | + + + | Marital Status | Single | + + + | Evangelical Affiliation | PEN | + + + [...] | | | | | [place] [address] | | + + + + + Care Team Providers + +------+ + | Care Commissary Production Supervisor Name | Role | Phone | [...] [address] | | | | | | [facility] [address] | | | | | | [phone] | | | | | | | [...] of | | | | | | [facility] | | | | | [...] [facility] | [address] | [place] [address] | | | DERMATOPATHOLOGY | [address] | | | + + + + + documented in this encounter Visit Diagnoses Not on filedocumented in this encounter"
--- OUTSIDE RECORDS SUMMARY | ~2020-03-20 | XMS | Encounter Summary ---
Demographics + + + | Address | [address] [place] [address] | | | [place] [address] | + + + | Home Phone | | + + + | Preferred Language | Unknown | + + + | Marital Status | Single | + + + | Muslim Affiliation | PEN | + + + [...] | | | | | [place] [address] | | + + + + + Care Team Providers + +------+ + | Care Equipment Processer Storage Name | Role | Phone | + +------+ + PCP | Unavailable | + +------+ + Encounter Details +--------+ + + + + | Date | Type | Department | Care Team | Description | +--------+ + + + + | 05/07/ | Results | [facility] | [facility] | | | 2014 | Only | Department | [address] | | | | | | [address] [place] | | | | | | [place] [address] | | | | | | [phone] | | | | | | | [...] POINT | | | GLUCOSE, | ID: [id number]: | | OF CARE | | | POC | [id number] Francoise LaRchanda | | TESTING | | | |Locomotive Inspector: [id number] Brasrey LaRchanda | | | | | [...] POINT | | | GLUCOSE, | ID: [id number]: | | OF CARE | | | POC | [id number] Hochmayr | | TESTING | | | [...] POINT | | | GLUCOSE, | ID: [id number]: | | OF CARE | | | POC | [id number] Hochmayr | | TESTING | | | [...]
--- OUTSIDE RECORDS SUMMARY | ~2020-03-20 | XMS | Encounter Summary ---
Demographics + + + | Address | [address] [place] [address] | | | [place] [address] | + + + | Home Phone | | + + + | Preferred Language | Unknown | + + + | Marital Status | Single | + + + | Denominational Affiliation | PEN | + + + | Race | White | + + + | Ethnic Group | Not or | + + + Author + + + | Author | [facility] | + + + | Organization | [facility] | + + + | Address | Unknown | + + + | Phone | Unavailable | + + + Support + + + + + | Name | Relationship | Address | Phone | + + + + + | Aileen Nelson | ECON | [address] | | | | | [place] [address] | | + + + + + Care Team Providers + +------+ + | Care Labor Economics Teacher Name | Role | Phone | + +------+ + | Romain Harrington MD | PCP | | + +------+ + Encounter Details +--------+ + + + + | Date | Type | Department | Care Team | Description | +--------+ + + + + | 05/20/ | Outside | Diagnostic | Zoila Momin, | | | 2011 | Referral | Radiology at [facility] | MD [place]ates | | | | Order | [address] | [facility] [address] | | | | | [address] Physician's | [address] | | | | | Pav[address], [address] Floor | [address], | | | | | [place], [place] | [place] [address] | | | | | [address] | [phone] | | | | | [phone] | | | +--------+ + + + [...]
--- OUTSIDE RECORDS SUMMARY | ~2020-03-20 | XMS | Encounter Summary ---
Demographics + + + | Address | [address] [place] [address] | | | [place] [address] | + + + | Home Phone | | + + + | Preferred Language | Unknown | + + + | Marital Status | Single | + + + | Scientology Affiliation | PEN | + + + | Race | White | + + + | Ethnic Group | Not or | + + + Author + + + | Author | [facility] | + + + | Organization | [facility] | + + + | Address | Unknown | + + + | Phone | Unavailable | + + + Support + + + + + | Name | Relationship | Address | Phone | + + + + + | Aileen Nelson | ECON | [address] | | | | | [place] [address] | | + + + + + Care Team Providers + +------+ + | Care Broomcorn Thresher Name | Role | Phone | + [...] [place] | | | | | | [address] | | | +--------+ + + + [...]
--- OUTSIDE RECORDS SUMMARY | ~2020-03-20 | XMS | Encounter Summary ---
Demographics + + + | Address | [address] [place] [address] | | | [place] [address] | + + + | Home Phone | | + + + | Preferred Language | Unknown | + + + | Marital Status | Single | + + + | Buddhism Affiliation | PEN | + + + [...] | | | | | [place] [address] | | + + + + + Care Team Providers + +------+ + | Care Electronic Scale Subassembler Name | Role | Phone | + +------+ + PCP | Unavailable | + +------+ + Encounter Details +--------+ + + + + | Date | Type | Department | Care Team | Description | +--------+ + + + + | 10/13/ | Results | Registration [address] | [facility] | | | 2009 | Only | [address] | [phone] | | | | | Rd Mailcode: RP[address] | | | | | | [place], [place] | | | | | | [address] | | | | | | [phone] | | | +--------+ + + + [...] + + | Performing | Address | City/[facility] | Phone Number | | Organization | | | | + +---------+ + + | [facility] | | | | [facility] | | | | + +---------+ + + documented in this encounter Visit Diagnoses Not on filedocumented in this encounter"
--- OUTSIDE RECORDS SUMMARY | ~2020-03-20 | XMS | Encounter Summary ---
Demographics + + + | Address | [address] [place] [address] | | | [place] [address] | + + + | Home Phone | | + + + | Preferred Language | Unknown | + + + | Marital Status | Single | + + + | Taoism Affiliation | PEN | + + + | Race | White | + + + | Ethnic Group | Not or | + + + Author + + + | Author | [facility] | + + + | Organization | [facility] | + + + | Address | Unknown | + + + | Phone | Unavailable | + + + Support + + + + + | Name | Relationship | Address | Phone | + + + + + | Aileen Nelson | ECON | [address] | | | | | [place] [address] | | + + + + + Care Team Providers + +------+ + | Care Fiber Optic Central Office Installer Name | Role | Phone | [...] (Primary Dx); | | | | [place], [place] | [place] [address] | Hydrocele, | | | | [address] | [phone] | unspecified | | | | [phone] | | hydrocele type | +--------+---------+ + [...] and hydrocele. HPI: Ed was seen at [facility] and kept as an inpatient for a [...] Coronary atherosclerosis of unspecified type of vessel, white earth or graft Acute, but ill-defined, cerebrovascular disease Unspecified essential hypertension Arrhythmia a-fib, v-fib Chronic kidney disease (CKD), stage III (moderate) Paroxysmal SVT (supraventricular tachycardia) Congestive heart failure, unspecified Atrial fibrillation Obesity RACHELLE (obstructive sleep apnea) High cholesterol Back pain ED (erectile dysfunction) Epididymitis 2009 Cellulitis Venous insufficiency (chronic) (peripheral) Past Surgical History Procedure Laterality Date Aicd implantation Meds: Current outpatient prescriptions: ABACAVIR/DOLUTEGRAVIR/LAMIVUDI ([id number] IVUD ORAL), Take 600 mg by mouth [...] once daily. , Disp: , Rfl: omega 3-jat-oro-fish oil (FISH OIL) 100-160-1,000 mg oral capsule, [...] finish his antibiotics. Edmond Estes M.D./winnie A Manager Ems was offered to the patient. The offer [...]
--- OUTSIDE RECORDS SUMMARY | ~2020-03-20 | XMS | Encounter Summary ---
Demographics + + + | Address | [address] [place] [address] | | | [place] [address] | + + + | Home Phone | | + + + | Preferred Language | Unknown | + + + | Marital Status | Single | + + + | Orthodox Affiliation | PEN | + + [...] | | | | | [place] [address] | | + + + + + Care Team Providers + +------+ + | Care Crown Assembly Machine Set Up Mechanic Name | Role | Phone | [...] | | | | Procedures | on [facility] [address] | | | | | PET SKULL | V A MEDICAL | [place] | | | | | BASE TO | CENTER | Pavilion, [address]th | | | | | [address]IGHS | [address] | floor | | | | | | [address] | [place], [place] | | | | | | [address] | [address] | | | | | | [place], | Phone: | | | | | | [place] [address] | [phone] | | | | | | Phone: | Fax: | | | | | | [phone] | [phone] | | | | | | Fax: | | | | | | | [phone] | | +--------+--------+ + + + + Encounter Details +--------+ + + + + | Date | Type | Department | Care Team | Description | +--------+ + + + + | 10/15/ | Outside | Nuclear Medicine | Deshaun Warren, | | | 2011 | Referral | at [facility] [address] | [place] [address] | | | | Order | Kasie Peralta [facility] | [facility] [address] | | | | | [address] | [address] | | | | | Basement [place], | [address] | | | | | [place] [address] | [place] [address] | | | | | [phone] | [phone] | | | | | | | [...]
--- OUTSIDE RECORDS SUMMARY | ~2020-03-20 | XMS | Encounter Summary ---
Demographics + + + | Address | [address] | | | [place] [address] | + + + | Home Phone | | + + + | Preferred Language | Unknown | + + + | Marital Status | | + + + | Rastafari Affiliation | [id number] | + + + | Race | Unknown | + + + | Ethnic Group | Unknown | + + + Author + + + | Author | [facility] | | | and [place] | + + + | Organization | [facility] | | | [...] [place] | | | | | [address] | | + + + + + Care Team Providers + +------+ + | Care Java Support Engineer Name | Role | Phone | [...] + + | 06/19/ | Hospital | [facility] | Kolby Sheffield, | Ischemic | | 2018 - | Encounter | MED CTR SURGICAL | MD [address] | cerebrovascular | | | | [address] | [place] | accident (CVA) | | 06/22/ | | [facility] [place] [address] | [id number] | (HCC); Stage 3 | | 2018 | | [phone] | | chronic kidney | | | | | | disease (HCC); IDDM | | | | | | (insulin dependent | | | | | | diabetes mellitus) | | | | | | ([facility]); HIV (human | | | | | | immunodeficiency | | | | | | virus infection) | | | | | | (HCC); Essential | | | | | | [...] has been on warfarin. Patient presented to [facility]. Patient was out of timeframe fo r [...] narrowed bilaterally. Jana huber was transferred to [facility] for further evaluation. For details please refer to the H&P and daily progress notes and consults. Patient's acute hospital medical problems were briefly addressed as follow: 1. Ischemic cerebrovascular accident (CVA) : His presentation includes subtherapeutic INR x 1.5 months. I have stopped his Warfarin and started on NOAC instead. Carotid Ultrasound with out significant stenosis, which is in contrast to [facility] ultrasound. He has pacer so n ot [...] None CONSULTATIONS: In patient Rehab, PT, OT, COMPOSITION TEACHER IMAGING PERFORMED: Ct Head Wo Contrast Result [...] 125/60 Pulse: 60 63 68 65 Resp: 16 16 18 Temp: 36.1 C (97 F) 36.7 C [...] Itching MEDICATIONS ON DISCHARGE: Current Facility-Administered Medications: nvaaanuv-hiutddlljzzh-mjszBJZunn (TRIUMEQ) 600-50-300 mg per tablet 1 tablet - Patient Own Med, 1 tablet, Oral, Nightly, Kolby Sheffield MD, 1 tablet at 06/21/18 2257 allopurinol (ZYLOPRIM) tablet 100 mg, 100 mg, [...] + + + +---------+ + + | Troy Rodríguezo 450 | Take 900 mg by mouth [...] hours | tablet | | 18 | 0 | | ophen (NORCO) 5-325 | as [...] | | | | | units if [id number] | | | | | | | [...] giving to him in writing and verbally. ill, Prmaod Tobar MD - 06/21/2018 3:51 PM PDTWe are evalua ting the patient's potential to benefit from full inpatient medical rehabilitation services. He currently is tolerating, cooperating, and benefiting from the early rehab therapy treatm ents. We therefore recommend that he be transferred to our inpatient rehab service tomorrow adama langston if he is cleared acutely. 3: 54 PM PDTRolph, Ghanshyam Bull [facility] - 06/21/2018 3:44 PM PDTFormatting of this [...] bottles X Pharmacy list names: [facility] X [employer] insurance reported information X [...] Medication added: Medication: Prior to Admission Sig: Utubribp-sebmbrsgxknx-diihIDCviz 600-50-300 mg Take one tablet by mouth [...] Take two tablets by mouth daily Saw Prosper 450 mg Take 900 mg by mouth [...] and whiskey) Other: Warfarin info [facility] antocoag clinic Goal: 2.0-3.0 INR 1.8 on 06/08 Dose: 5 mg on Wednesday and Wednesday and 2.5 mg all other days Best possible SCREW MACHINE SET UP OPERATOR medication list after pharmacy review: PT REPORTED TAKING NOT TAKING Medication Sig Last Dose Dispense Doc. Provider rqclmhue-sggkjqccmhmj-mkfhHHUekr (TRIUMEQ) 600-50-300 mg per tablet Take 1 tablet by mouth Daily. Indications: HIV Disease Taking Historical Provider, allopurinol (ZYLOPRIM) 100 mg tablet Take 100 mg by mouth Daily. Taking Historical Provid erMD APPLE CIDER VINEGAR PO Take 450 mg by mouth Daily. Taking Historical ProviderMD artificial tears (REFRESH TEARS) ophthalmic solution Place 1 drop into both eyes every 4 h ours as needed for Dry Eyes. Taking Historical Provider, bumetanide (BUMEX) 1 mg tablet Take 1 [...] 150-200 60 units if >200 Taking Historical ProviderMD insulin glargine (LANTUS SOLOSTAR) 100 units/mL injection (pen) Inject 15 Units under the skin 2 times daily. Taking Historical ProviderMD isosorbide mononitrate (IMDUR) 60 mg ER tablet Take 30 mg by mouth Daily. Taking Historic al ProviderMD lisinopril (PRINIVIL, ZESTRIL) 5 mg tablet Take 2.5 mg by mouth Daily. Taking Historical ProviderMD loperamide (IMODIUM) 2 mg capsule Take 4 mg by mouth Daily as needed for Diarrhea. Taking Historical ProviderMD metoprolol succinate (TOPROL-XL) 200 mg ER tablet Take 200 mg by mouth Daily. Taking Hist orical ProviderMD Multiple Vitamins-Minerals (ONE-A-DAY PROACTIVE 65+) TABS Take 1 tablet by mouth Daily. Yimi betancourt Historical ProviderMD potassium chloride (KLOR-CON) 10 MEQ ER tablet Take 20 mEq by mouth Daily. Taking Historesperanza xiomara Provider, MD Simmons Prosper 450 MG CAPS Take 900 mg by mouth 2 times daily. Taking Historical ProviderMD sertraline (ZOLOFT) 50 mg tablet Take 75 mg by mouth Daily. Taking Historical ProviderNeetu spironolactone (ALDACTONE) 50 mg tablet Take 50 mg by mouth Daily. Taking Historical Prov iderMD warfarin (COUMADIN) 5 mg tablet Take 5 mg by mouth Twice a week. On Wednesday and Wednesday Guerrero langston Historical Provider, warfarin (COUMADIN) 5 mg tablet Take 2.5 mg by mouth Five times a week. Every day except M and Wednesday Taking Historical Provider, Medication review performed and electronically signed by Roxy Escobedo, Renewable Energy Consultant 15:03 Electronically signed by: Ghanshyam Newman RPH 06/21/2018 15:43 Cari Sanders PharmD - 06/21/2018 11:19 AM PDT WARFARIN PER PHARMACY PROTOCOL: Subjective/Objective: Sarthak Nelson is a 67 y.o. male admitted for Slurred speech and is receiving warfa rin. Patient has no past medical history on file. Goal INR: 2-3 ?Initiation ?chronic Home regimen: TBD after med-rec Managed by: TBD after med-rec Sensitizers: none Drug Interactions: Acetaminophen NON-valvular AFIB patients: [id number] score (max 9): 6 ?CHF, ?HTN, ?Age > 75 (2), ?DM, ? prior CVA,VTE (2), ?CO,PAD, ?Age 64-74, ?Female Recent Labs Lab 06/21/18 [...] Hct, INR 4. Warfarin education received NO. 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 Pharmacist to follow daily Warfarin Dosing Nomogram Per P&T-approved Electronically signed by: Cari Isaac PharmD 06/21/2018 11:20 Ying Lopez MD - 06/21/2018 10:57 AM P DT HOSPITALIST PROGRESS NOTE Patient: Sarthak Nelson : 1950: Age: 67 y.o. MedRec: [id number] PCP: Jericho Cao MD Admission date: 06/19/2018 [...] has been on warfarin. Patient presented to [facility]. Patient was out of timeframe fo r [...] carotids are at least 50% narrowed bilaterally. Pat ient was transferred to [facility] for further evaluation. MEDICATIONS: ymiseiwv-tsamvpsijqwc-fufmVQXuuc 1 tablet Oral Nightly [START ON 06/22/2018] [...] ECGs available Confirmed by NILAY HERNANDEZ MD ([id number]) on 06/20/2018 6:38:00 AM POC Glucose Collection [...] E' Septal Velocity 4 cm/s MV Deceleration [place] 765.46 cm/s2 MV Deceleration Time 173.25 msec [...] significant stenosis, which is in contrast to [facility] ultrasound. He has pacer so not amenable [...] leg edema from, VENOUS STASIS : F/U [place] wound clinic DVT Prophylaxis : on NOAC Code Status : Full Code. DISCHARGE PLAN: Discharge in to Rehab tomorrow . Discussed with patient and staff Ying Giron 06/21/2018 10:57 Fawn Venegas V , PharmD - 06/21/2018 8:10 AM PDTFormatting of [...] Home regimen: TBD after med-rec Managed by: [place] anticoagulation clinic previously adjusting coumadin for chronic Afib per Dr Anmol Isaac Sensitizers: none Drug Interactions: Acetaminophen, allopurinol NON-valvular AFIB patients: [id number] score (max 9): 6 ?CHF, ?HTN, ?Age > 75 (2), ?DM, ? prior CVA,VTE (2), ?CO,PAD, ?Age 64-74, ?Female Recent Labs Lab 06/21/18 [...] am: INR 4. Warfarin education received NO. 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 Pharmacist to follow daily Warfarin Dosing Nomogram Per P&T-approved Electronically signed by: Fawn Willard PharmD 06/21/2018 8:11 Cari Sanders P harmD - 06/20/2018 12:25 PM PDT WARFARIN PER PHARMACY PROTOCOL: Subjective/Objective: Sarthak Nelson is a 67 y.o. male admitted for Slurred speech and is receiving warfa rin. Patient has no past medical history on file. Goal INR: 2-3 ?Initiation ?chronic Home regimen: TBD after med-rec Managed by: TBD after med-rec Sensitizers: none Drug Interactions: Acetaminophen NON-valvular AFIB patients: [id number] score (max 9): 6 ?CHF, ?HTN, ?Age > 75 (2), ?DM, ? prior CVA,VTE (2), ?CO,PAD, ?Age 64-74, ?Female Recent Labs Lab 06/20/18 [...] Hct, INR 4. Warfarin education received NO. 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 Pharmacist to follow daily Warfarin Dosing Nomogram Per P&T-approved Electronically signed by: Cari Isaac PharmD 06/20/2018 11:41 Liane Sanders MD - 06/20/2018 9:40 AM PDT [facility] HOSPITALIST PROGRESS NOTE Patient: Sarthak Nelson : 1950: Age: 67 y.o. MedRec: [id number] Admission date: 06/19/2018 Hospital day # : [...] discuss with neurologist. On dysphagia diet per COMPOSITION TEACHER. Subtherapeutic INR since mid 04/2018 - end 05/2018despite [place] anticoag clinic adjusting coumad in for chronic afib. [facility] PMHX 1. Cellulitis of abdominal [...] Kcl 20meq Qday Triumeq/Abacavir,dolutegravir,lamivudi clorthalidone 25 Qday---off [id number] tid---off Lasix ---off Allergies: Current Medications: Allergies Allergen Reactions Tape [Adhesive & Tape] Current Facility-Administered Medications Medication Dose Route Frequency Provider Last Rate Last Dose jklocnrj-bdpmlvpnttni-olqaRQJcee (TRIUMEQ) 600-50-300 mg per tablet 1 tablet - Patient Own Med 1 tablet Oral Nightly Kolby Sheffield MD aspirin chewable tablet 81 mg 81 mg Oral Daily Kolby Sheffield MD 81 mg at 06/20/18 09 atorvaSTATin (LIPITOR) tablet 80 mg 80 mg [...] 5 mg 5 mg Oral Daily - Warfarin Cari Isaac, PharmD warfarin per pharmacy Other Pharmacy [...] instead if < 1/[address] 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 -pacer is not amenable with MRI -TTE with bubble study--negative -Telemetry / trop neg / PT/OT/COMPOSITION TEACHER Neuro checks -no med rec tech, I reviewed the medications in his [employer] grocery bag and recent med list faxed from [place], documented above. ALL diuretics/antihypertensives have been held. IDDM Cont lantus lispro - lower than home dose HTN Continue imdur HIV -Cont Abacavir,dolutegravir,lamivudi - multiple bottles Are in his [employer] bag Chronic systolic-diastolic heart failure/ VT / chronic A fib / pacer Patient reports holding lasix due to kidney injury, listed on [facility] information -Hold metoprolol for now given permissive HTN F/U [facility] CKD 3 Cr 1.77 -Cr 2.4 in 2017 at [facility] RACHELLE/Morbid obesity bmi 47.9 CPAP Chronic leg edema, VENOUS STASIS ULCER Wound care ordered F/U [place] wound clinic FEN: thickened liquid PPX: Warfarin - SUBTHERAPEUTIC SINCE 05/02/18 (9/20/18 NOTE per [facility]) Disp: PT/OT/COMPOSITION TEACHER ordered Plan discussed with patient. Subjective by date Unhappy w/ thickened liquids, chronic pain Treatment log Imdur, stop asa. Continue lipitor/coumadin Exam On room air then tolerating home CPAP General NAD A and O obese Cardiac S1 S2 irregular Lung CTAB Abdominal soft nt nd + BS obese Neuro dysarthric, drooling left, poor tongue protrusion to left, weaker shoulder shrug left 4/5 left medical insurance coding specialist, 3/5 left elbow flexion, 3/5 left shoulder flexion 5/5 right medical insurance coding specialist/elbow flexion/shoulder flexion 4/5 left lower extremity 4+/5 [...] ECGs available Confirmed by DAVID BARAHONA, NILAY ([id number]) on 06/20/2018 6:38:00 AM POC Glucose Collection [...] 12:08 PM Liane Isaac MD 06/20/2018 13:16 [facility] Portions of this chart may have been created with [employer] voice recognition software. Occasi onal wrong-word or sound-alike substitutions may have occurred due to the inherent gupta itations of voice recognition software. Please read the chart carefully and recognize, using context, where these substitutions have occurred documented in this enc ounter H&P Notes Kolby Sheffield MD - 06/19/2018 9:05 PM PDTFormatting of this note might be different fr om the original. [place] HOSPITALIST HISTORY & PHYSICAL Patient: Sarthak Nelson : 1950: Age: 67 y.o. MedRec: [id number] Admission date: 06/19/2018 Hospital day # : 0 Physician author: Kolby Sheffield MD Today: 06/19/2018 CHIEF COMPLAINT: L sided weakness/Slurred speech HISTORY OF PRESENT ILLNESS: This is a 67 y.o. male with a history of IDDM, afib on warfarin, HTN, HIV, Chronic systolic heart failure, CKD3, CVA (x 3 in the past) who presents with L sided weakness of slurred sp eech. Patient reports at 10:30am on day of presentation, standing near dresser and suddenly having weakness. Patient fell to the floor with mildly hitting head. No loss of consciousnes s. Typically ambulates with walker. Patient crawled to bed and called for EMS. Patient had p rior CVAs in the past. Patient reports prior CVA has effected R side. The left sided weaknes s and slurred speech is new. Patient has been complaint with medications. Patient denies any other symptoms including chest pain, shortness of breath, N/V/D. Patient has been on warfarin. Patient presented to [facility]. Patient was out of timeframe fo r [...] narrowed bilaterally. Jana huber was transferred to [facility] for further evaluation. PAST MEDICAL and SURGICAL HISTORY: IDDM, afib on warfarin, HTN, HIV, Chronic systolic heart failure, CKD3, CVA (x 3 in the pas t) FAMILY HISTORY: No pertinent family history SOCIAL HISTORY: Patient lives with REVIEW OF SYSTEMS: Review of Systems Constitutional: Negative for chills and fever. HENT: Negative. Eyes: Negative. Respiratory: Negative. Cardiovascular: Negative. Gastrointestinal: Negative. Genitourinary: Negative. Musculoskeletal: Negative. Skin: Negative. Neurological: Positive for speech change, focal weakness and weakness. Negative for sensory change, seizures and loss of consciousness. Endo/Heme/Allergies: Negative. HOME MEDICATIONS: PT REPORTED TAKING NOT TAKING None ALLERGIES: Allergies not on file VITAL SIGNS: Temp: 36.5 C (97.7 F), Pulse: 69, Resp: 17, BP: 117/58, SpO2 95 % on at flow rate 2L/ min Temp Min: 36.5 C (97.7 F) Max: 36.5 C (97.7 F) Weight: (!) 169.5 kg (373 lb 10.9 oz) PHYSICAL EXAMINATION: Constitutional Able to answer questions Eye No conjunctivitis nor scleral icterus ENT Unremarkable oral ear and nose Neck No adenopathy, thyromegaly nor masses Lymph node exam Negative in the following areas: neck and epitrochlear Cardiac + Irregularly irregular Lung CTA throughout Abdomen + BS, Soft, NT, no HSM nor masses Extremities No b/l LE edema Psych Mood and affect normal Neuro +4/5 strength on upper and lower extremities, 5/5 strength on RUE/RLL, slurred speech L fac ial droop, slow left finger to nose, CN II-XII intact, mild left tongue deviation DIAGNOSTIC STUDIES: I reviewed imaging EKG Results (I reviewed EKG) I reviewed and summarized old records ASSESSMENT: Principal Problem: Ischemic CVA Code Status Full Medical Decision Maker Self DVT Prophylaxis Warfarin PLAN: L sided weakness/slurred speech likely 2/2 to ischemic CVA Patient presents with acute symptoms. Prior history of CVA. Patient has history of diabet es. CTA A CTA head and neck was performed showing no acute pathology. Old left parietal in farcts. At least 90% stenosis of the left proximal ICA and 50% stenosis of the right proxim al ICA. Cavernous carotids are at least 50% narrowed bilaterally. INR 1.4. EKG showed atr ial fibrillation. Possible risks include carotid stenosis, emboli from subtherapeutic INR i n setting of atrial fibrillation. -Ordered aspirin -MRI brain ordered, patient reports having pacemaker in place, will need to be evaluated to [facility] -TTE with bubble study ordered -Telemetry -Serial troponins ordered -PT/OT/COMPOSITION TEACHER ordered -Unclear medication reconciliation, ordered, as per list which appears to be inaccurate as per patient holding Imdur, hydralazine, metoprolol for permissive hypertension -Neuro checks -Ordered Carotid Ultrasound, no images from [facility] when completed would consider carlosi ivis with Dr. Romo for outpatient assessment -Warfarin [...] due to kidney injury, listed on [facility] information -Hold metoprolol for now given permissive HTN CKD 3 Cr 1.77 -Cr 2.4 in 2017 at [facility] History of CVA -On Warfarin, no ASA, atorvastatin listed?, likely emboli source in the past -Start ASA, atorvastatin FEN: Advance by bedside eval PPX: Warfarin Disp: PT/OT/COMPOSITION TEACHER ordered CMS Documentation I expect this patient will be hospitalized for greater than 2-midnights and expect the post -hospital plan to be discharge to home or to an adult foster home. Electronically signed by: Kolby Sheffield MD 06/19/2018 21:05 [facility] documented in this e ncounter Consult Notes Pramod Salinas MD - 06/22/2018 12:40 PM PDT REHABILITATION MEDICINE PRESCREEN NOTE: Patient Identification Sarthak Nelson is a 67 y.o. male. : 1950 Admit Date: 06/19/2018 Attending Provider: Kolby Sheffield MD Primary Care Physician: Jericho Cao MD Admitting Diagnosis: CVA Chief Complaint/Identification: Sarthak Nelson is a 67 y.o. male who was admitted to [facility] on 2017 for CVA. PM&R consultation was requested by Dr. Kolby Sheffield MD to provide an opin ion regarding Sarthak Nelson rehabilitation needs. History of Present Illness: The patient was in his usual state of health until mid morning of June 19 20 had sudde n onset of left-sided weakness. He was seen in an [facility] hospital and emergently transfer red here to [facility] and admitted by Dr. Kolby Sheffield MD . I reviewed the H&P CHIEF COMPLAINT: L sided weakness/Slurred speech HISTORY OF PRESENT ILLNESS: This is a 67 y.o. male with a history of IDDM, afib on warfarin, HTN, HIV, Chronic systolic heart failure, CKD3, CVA (x 3 in the past) who presents with L sided weakness of slurred sp eech. Patient reports at 10:30am on day of presentation, standing near dresser and suddenly having weakness. Patient fell to the floor with mildly hitting head. No loss of consciousnes s. Typically ambulates with walker. Patient crawled to bed and called for EMS. Patient had p rior CVAs in the past. Patient reports prior CVA has effected R side. The left sided weaknes s and slurred speech is new. Patient has been complaint with medications. Patient denies any other symptoms including chest pain, shortness of breath, N/V/D. Patient has been on warfarin. Patient presented to [facility]. Patient was out of timeframe fo r [...] narrowed bilaterally. Jana huber was transferred to [facility] for further evaluation. ASSESSMENT: Principal Problem: Ischemic CVA Code Status Full Medical Decision Maker Self DVT Prophylaxis Warfarin PLAN: L sided weakness/slurred speech likely 2/2 to ischemic CVA Patient presents with acute symptoms. Prior history of CVA. Patient has history of diabet es. CTA A CTA head and neck was performed showing no acute pathology. Old left parietal in farcts. At least 90% stenosis of the left proximal ICA and 50% stenosis of the right proxim al ICA. Cavernous carotids are at least 50% narrowed bilaterally. INR 1.4. EKG showed atr ial fibrillation. Possible risks include carotid stenosis, emboli from subtherapeutic INR i n setting of atrial fibrillation. -Ordered aspirin -MRI brain ordered, patient reports having pacemaker in place, will need to be evaluated to [facility] -TTE with bubble study ordered -Telemetry -Serial troponins ordered -PT/OT/COMPOSITION TEACHER ordered -Unclear medication reconciliation, ordered, as per list which appears to be inaccurate as per patient holding Imdur, hydralazine, metoprolol for permissive hypertension -Neuro checks -Ordered Carotid Ultrasound, no images from [facility] when completed would consider speaki ng with Dr. Romo for outpatient assessment -Warfarin [...] due to kidney injury, listed on [facility] information -Hold metoprolol for now given permissive HTN CKD 3 Cr 1.77 -Cr 2.4 in 2017 at [facility] History of CVA -On Warfarin, no ASA, atorvastatin listed?, likely emboli source in the past -Start ASA, atorvastatin FEN: Advance by bedside eval PPX: Warfarin Disp: PT/OT/COMPOSITION TEACHER ordered He underwent brain CT scans on June 20 not Toprol 2. I reviewed these films. COMPARISON: CT dated [...] June 21 : ASSESSMENT/PLAN: Ischemic cerebrovascular accident (CVA) : His presentation includes subtherapeutic INR x1.5 months.His Warfarin was started without bridging as unclear extent of CVA, aspirin started then stopped, Will change to NOAC instead. Carotid Ultrasound without significant stenosis, which is in contrast to [facility] ultrasound. He has pacer so not amenable [...] full inpatient medical rehabilitation servic es. PMHx: IDDM, afib on warfarin, HTN, HIV, Chronic systolic heart failure, CKD3, CVA (x 3 in the pas t) Meds During Hospitalization Current Facility-Administered Medications Medication Dose Route Frequency Provider Last Rate Last Dose stmpiwxj-jwcvciuldxbb-nguhNGIcpm (TRIUMEQ) 600-50-300 mg per tablet 1 tablet - Patient Own Med 1 tablet Oral Nightly Kolby Sheffield MD 1 tablet at 06/21/18 2257 allopurinol (ZYLOPRIM) tablet 100 mg 100 mg Oral Daily Liane Isaac MD 100 mg at 12/05 0804 apixaban (ELIQUIS) tablet 5 mg 5 mg Oral Q12H Ying Giron MD atorvaSTATin (LIPITOR) tablet 80 mg 80 mg Oral Daily Kolby Sheffield MD 80 mg at 0804 dextrose 50% injection 12.5 g 12.5 g Intravenous PRN Kolby Sheffield MD finasteride (PROSCAR) tablet 5 mg 5 mg Oral Daily Liane Isaac MD 5 mg at 06/22/18 0 800 gabapentin (NEURONTIN) capsule 300 mg 300 mg Oral BID Kolby Sheffield MD 300 mg at 06/22/18 0800 HYDROcodone-acetaminophen (NORCO) 5-325 mg per tablet 1-2 tablet 1-2 tablet Oral Q4H P RN Kolby Sheffield MD 1 tablet at 06/21/18 2302 insulin glargine (LANTUS SOLOSTAR) 100 units/mL injection (pen) 25 Units 25 Units Subc utaneous 2 times per day Kolby Sheffield MD 25 Units at 06/22/18 0904 insulin lispro (humaLOG KWIKPEN) 100 units/mL injection (pen) 0-6 Units 0-6 Units Subc utaneous 4x Daily WC and HS Kolby Sheffield MD 1 Units at 06/20/18 1216 insulin lispro (humaLOG KWIKPEN) 100 units/mL injection (pen) 15 Units 15 Units Subcut aneous TID WC Kolby Sheffield MD 15 Units at 06/22/18 1216 isosorbide mononitrate (IMDUR) ER tablet 30 mg 30 mg Oral Daily Liane Isaac MD 30 m g at 06/22/18 0800 metoprolol tartrate (LOPRESSOR) tablet 25 mg 25 mg Oral BID Ying Giron MD 25 mg at 06/22/18 0800 Allergies: Allergies Allergen Reactions Amoxicillin Not Noted [...] Family History: No family history on file. Social History: per chart review and confirmed with pt Social History Social History Marital status: Spouse name: N/A Number of children: N/A Years of education: N/A Occupational History Not on file. Social History Main Topics Smoking status: Not on file Smokeless tobacco: Not on file Alcohol use Not on file Drug use: Unknown Sexual activity: Not on file Other Topics Concern Not on file Social History Narrative No narrative on file Lives with spouse in a 1 story home with a ramp/ 6 stairs to enter. Bedroom and shower on m ain floor. The patient is in a one-story house in [place] with his . There is a ramp installed and otherwise there are 6 steps to enter the building. 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 He also served in the [employer] for 3-1/2 years. He is independent with [...] the Patient was independent in mobility, self-care, s wallowing, bladder/bowel, communication, cognition. CURRENT FUNCTION: Report Date 06/22/2018 FIM BladderScore: 3 FIM Bowel Score: 5 FIM Bed/Chair/Wheelchair Score: 3 FIM Toilet Transfer Score: 2 FIM Tub/Shower Transfer Score: 2 FIM Walk Score: 1 FIM Distance Walked(feet): 3 ; FWW; max FIM Wheelchair Score: 1 FIM Stairs Score : 0 FIM Eating Score: 4 FIM Grooming Score: 4 FIM Bathing Score: 2 FIM Dressing Upper Body Score: 3 FIM Dressing Lower Body Score: 2 FIM Toileting Score: 2 Labs: Recent Results (from the past 48 hour(s)) ECHO Complete Collection Time: 06/20/18 15:10 Result [...] E' Septal Velocity 4 cm/s MV Deceleration [place] 765.46 cm/s2 MV Deceleration Time 173.25 msec [...] 0.00 0.00 - 0.01 K/uL POC Glucose Collection Time: 06/21/18 11:27 Result Value Ref Range Glucose, POC 137 (H) 70 - 109 mg/dL POC Glucose Collection Time: 06/21/18 17:01 Result Value Ref Range Glucose, POC 133 (H) 70 - 109 mg/dL POC Glucose Collection Time: 06/21/18 23:08 Result Value Ref Range Glucose, POC 162 (H) 70 - 109 mg/dL Protime INR Collection Time: 06/22/18 5:50 Result Value Ref Range Protime 22.0 (H) 11.3 - 13.9 seconds INR 2.0 (H) 0.9 - 1.1 Basic Metabolic Panel Collection Time: 06/22/18 5:50 Result Value Ref Range NA 138 136 [...] mg/dL BUN/CREA 16.9 Extra Lavender Top Tube Collection Time: 06/22/18 5:50 Result Value Ref Range Extra Lavender Top Tube Done POC Glucose Collection Time: 06/22/18 11:41 Result Value Ref Range Glucose, POC 99 70 - 109 mg/dL Imaging: Recent Results (from the past 360 hour(s)) XR Chest AP Portable Narrative XR CHEST [...] air collections. Focal area of loss of nortno-white differentiation involving the right insula There are [...] Chino MD Electronically signed: 06/21/2018 2:42 PM Assessment: Pt now has deficits in attention, executive functioning, memory, cognitive communication, c oordination, ambulation, swallowing, strength, ADLs, and IADLs. Patient demonstrated she is safe to continue therapies, has demonstrated she can do 3 hours of therapies per day, is medically complex and need 24 hours physician and IPR nursing care . Rehabilitation Medicine Recommendations: --Continue PT for strength, endurance, ROM, ambulation, balance --Continue OT for UE strengthening, functioning, and ROM; and training in ADLs, IADLs --Continue Speech therapy (COMPOSITION TEACHER) to follow for swallow and for cognitive/communication Thank you for the opportunity to be involved in the care of this patient. Please feel free to call with questions or concerns. I will continue to follow with you regarding rehabilitat ion needs. -- -- -- -- -- -- -- -- -- -- -- -- -- -- -- -- -- -- -- -- ---- -- -- -- -- -- -- -- -- -- -- -- -- -- -- -- -- -- -- -- -- Supplemental Rehab Info: Primary Diagnosis: Stroke 01.1 Left body involvement (right brain) Onset: 06/19/2018 Impairments include: dysphagia, dysarthria, apraxia, ataxia, cognitive deficits, motor wea kness, paresis, sensory deficits, spasms, visual impairment. Comorbidities: (current medical problems) Patient Active Problem List Diagnosis Ischemic cerebrovascular accident (CVA) IDDM (insulin dependent diabetes mellitus) HTN (hypertension) CKD (chronic kidney disease) HIV (human immunodeficiency virus infection) Rehab Problem list: Impaired mobility Impaired ADLs Impaired IADLs Impaired communication Impaired vision Impaired avocation Impaired vocation Impaired spiritual access Rehab: The patient can participate in 3 hours of therapy per day and demonstrates appropriate jorgensen yover, they are ready for inpatient rehabilitation admission. The pt is medically stable wit h no further medical/surgical interventions planned, but has complex rehab needs requiring i ntensive therapy intervention. I anticipate that the patient will meet the following criteri a: 1) able to make a meaningful amount of functional progress in a reasonable amount of time. 2) The patient is willing and able to participate in rehabilitation therapies based on prog ress during acute care. 3) The patient will require 24 hours supervision from rehabilitation physicians and nursing . 4) Rehabilitation goals cannot be achieved at a lower level of care. 5) Patient requires a minimum of the 3 hours of intensive therapy per day. Rehabilitation medicine physician for daily monitoring of care, 24 hour availability for ac kaylee medical issues, medication management, and therapeutic and diagnostic assessments. 24 hour rehabilitation nursing 7 days per week for: management/teaching of medications, bow el/bladder routine, skin care. PT for 60 minutes per day -6 days/week OT for 60 minutes per day -6 days/week COMPOSITION TEACHER for 60 minutes per day -6 days/week SW for discharge planning, community resources, and family support. Estimated length of stay is 10 days and pt is planning to discharge home with . Current barriers to inpatient rehabilitation include: weakness, fatigue, pain, Goals/Expected level of improvement: mod I with ambulation, mod I with ADLs, supervision-min A with iADLs, mod I for toileting, and supervision with community access. Potential Clinical Complications: falls with injury, depression d/t new injury, infection, DVT with PE, worsening medical condition, Signed: Pramod Salinas MD DATE/TIME: 06/22/2018 12:40 Portions of this chart may have been created with [employer] voice recognition software. Occas ional wrong-word or sound-alike substitutions may have occurred due to the inherent li mitations of voice recognition software. Please read the chart carefully and recognize, alma mcgrath context, where these substitutions have occurred documented in this encounter Miscellaneous Notes Plan of Care - Any Jenkins RN - 06/22/2018 12:52 PM PDTProblem: Patient Care Overview ( Adult) Goal: Care Team Goals & Evaluation PROBLEM-RELATED GOALS: Pt neuros will improve by 06/22/18 (e.g. LUE strength will be equal to RUE, speech will be m ore clear.) Pt will have no s/sx of increased skin breakdown through 06/22/18. Pt will remain free from falls through 06/22/18. Pt will tolerate level 2 mechanical soft chopped foods and nectar thick liquids with no s/s of airway compromise by 06/21/18 Pt will complete ADLs, fxl mobility w/ CG-min assist by 06/27/18. Ed will be mod I with basic transfers and in-room mobility with alexander FWW by 06-27-18 STRATEGY TO ACHIEVE GOALS: Frequent neuro checks. Monitor VS and labs. Bed alarm on, frequent rounding. - Active participation in OT sessions - Staff to assist with functional mobility and transfers with FWW prn Outcome: Improving Goal Evaluation: Ed is A/Ox4. VSS. Reinforced r/f injury of aspirating if he gets things that are not able to swalo. Pills with applesauce with no issue. Voiding in urinal but needs asst to aim pr operly. IV patent. Wound to the RLE wrapped unable to visualized. Monitoring BS and covered as needed. No fall or injuries. lan of Care - Ho Meneses LICSW - 06/22/2018 12:35 PM PDTProblem: Discharge Planning Goal: Patient will be discharged in a safe manner Outcome: Improving This returned case inspector visited with the patient about staying here at [facility] in our inpatient rehab program. The patient stated that he is willing to stay here and is elton ling to participate in the therapy program. Arrangements have been made for the patient for the patient to be moved into the inpatient rehab program this afternoon.Electronically sign ed by: TOBIN Hong 06/22/2018 12:35 lan of Care - Kpviji Rika E, OT - 06/22/2018 10:50 AM PDTFormatting of this note might be diffe rent from the original. Problem: Patient Care Overview (Adult) Goal: Care Team Goals & Evaluation PROBLEM-RELATED GOALS: Pt neuros will improve by 06/22/18 (e.g. LUE strength will be equal to RUE, speech will be m ore clear.) Pt will have no s/sx of increased skin breakdown through 06/22/18. Pt will remain free from falls through 06/22/18. Pt will tolerate level 2 mechanical soft chopped foods and nectar thick liquids with no s/s of airway compromise by 06/21/18 Pt will complete ADLs, fxl mobility w/ CG-min assist by 06/27/18. Ed will be mod I with basic transfers and in-room mobility with alexander FWW by 06-27-18 STRATEGY TO ACHIEVE GOALS: Frequent neuro checks. Monitor VS and labs. Bed alarm on, frequent rounding. - Active participation in OT sessions - Staff to assist with functional mobility and transfers with FWW prn Outcome: Improving Occupational Therapy Plan of Care Treatment Note Summary: Sarthak has been participating in occupational therapy for treatment of Impaired ADLs, decreased functional mobility, impaired activity tolerance, decreased safety awarenes s following admit for ischemic CVA, L-sided weakness. . Emphasis of session included Bed m obility, transfers, LUE neuromuscular petr. Patient demonstrates progress towards functiona l goals as evidenced by *participation and motivation with OT. Remaining barriers to disc harge and functional limitations include decreased insight into safety and deficits, decreas ed functional activity tolerance, decreased bed mobility, decreased functional transfers, de creased ability to perform ADLs, decreased ability to perform IADLs, decreased ability to pe rform medication management, unsafe discharge disposition, not yet able to mobilize at level safe for home discharge, [facility] indicating significant impairment with daily activities and medical status. Edward will benefit from continued therapeutic intervention to address ongoing impairments and increase safety and independence with activities necessary for safe discharge. Refer be low for specific details regarding functional levels. Occupational Therapy Discharge Recommendations are: Recommended discharge disposition: inpatient rehabilitation facility Post discharge occupational therapy recommendation: ongoing high intensity therapy, pt is motivated participant, minimum 5 therapy days/week, will benefit from structured setting Equipment Recommendations: none Planned Interventions:ADL retraining, balance training, bed mobility training, motor coordi nation training, neuromuscular re-education, fine motor coordination training, ROM (Range of Motion), strengthening, transfer training (edema mgmt) Recommended Frequency: 5 times/wk Patient Status/Goals: Reflects last filed data and may be from multiple contributors. Further ADLs @ next visit. Historically, pt reports he does not wear any clothes @ home. Functional Endurance Poor with multiple mobility activities. Fatigued easily d/t L sided weakness- TYRONE/LLE. Able to continue therapy with pt head up in bed. Cognitive Appears WFL, may warrant further assessment if indicated. Significant L-sided facial droop . Mood/Behavior: behavior appropriate to situation, calm, cooperative Orientation: oriented x 4 Speech: slurred Follows Commands/Answers Questions: able to follow multi-step instructions Bed Mobility Increased time d/t L sided weakness. decreased safety techniques with increased fatigue. Ab le to use over head trapeze with RUE. slight assist with LUE with assistance for medical insurance coding specialist. Pt ap peared impulsive, requiring constant cuing for hand placement, sequencing, pacing, safety, p ositioning of LE and UE Assistive Device: bed rails, overhead trapeze Roll Left, Level of [place]: contact guard assist, verbal cues required, tactile cues required Roll Right, Level of [place]: contact guard assist, verbal cues required, tactile cues required Scoot/Bridge, Level of [place]: contact guard assist, verbal cues required, tactile cu es required Supine to Sit, Level of [place]: moderate assist (50% patient effort), verbal cues req uired, set up required (To R) Safety Issues: decreased use of arms for pushing/pulling, decreased use of legs for bridgin g/pushing, impaired trunk control for bed mobility Impairments: decreased flexibility, ROM decreased, sensation decreased, strength decreased, impaired balance, coordination impaired, motor control impaired, postural control impaired Transfers Assisted PT with pt toilet to bed. Mod A of 2. Pt appeared fatigued after working on transf ers with PT. Pt was able to place L hand onto FWW with moderate difficulty, min. guide kell t. Max assist for medical insurance coding specialist,, maintain medical insurance coding specialist. L ignoral and L neglect observed. Toilet, Level of [place]: moderate assist (50% patient effort), 2 person assist requir ed, set up required, verbal cues required Safety Issues: balance decreased during turns, sequencing ability decreased, weight-shiftin g ability decreased Impairments: muscle tone abnormal, ROM decreased, strength decreased, impaired balance, vegetables cook rdination impaired, motor control impaired, postural control impaired, sensory feedback impa ired ROM Hx of LUE fx site in upper and lower arms, both w/ plates/pinning. L UE ROM: AROM with C/O pain during activity. Pt in bed with head 30 degrees, reaching for over head trapeze 3x, rest required, unable to to medical insurance coding specialist spontaneouly, though able to for 5 se c-10sec upon command. Washclothes placed in L hand-diffiulcty gripping though able to move UE to face and move. Assist of R hand for medical insurance coding specialist assistance. PROM shoulder to maintain full range. gripping activities. L ignoral and L neglect obeserved. R UE ROM: WFL OT Goal Review Date Most Recent Value STG Review Date 06/27/18 at 06/20/2018 1336 Grooming Goal Most Recent Value STG Status progressing at 06/22/2018 1050 STG [place] Level stand by assist at 06/20/2018 1336 UB Dressing Goal Most Recent Value STG Status progressing at 06/21/2018 1155 STG [place] Level stand by assist at 06/20/2018 1336 Toileting Goal Most Recent Value STG Status new at 06/20/2018 1336 STG [place] Level contact guard assist at 06/20/2018 1336 Toilet Transfer Goal Most Recent Value STG Status progressing at 06/22/2018 1050 STG [place] Level contact guard assist at 06/20/2018 1336 Electronically signed by: Rika Cerna OT, 06/22/2018 12:54 lan of Care - Kayden Collins, SCREW MACHINE SET UP OPERATOR - 06/22/2018 10:15 AM PDTFormatting of this note might be different fro m the original. Problem: Patient Care Overview (Adult) Goal: Care Team Goals & Evaluation PROBLEM-RELATED GOALS: Pt neuros will improve by 06/22/18 (e.g. LUE strength will be equal to RUE, speech will be m ore clear.) Pt will have no s/sx of increased skin breakdown through 06/22/18. Pt will remain free from falls through 06/22/18. Pt will tolerate level 2 mechanical soft chopped foods and nectar thick liquids with no s/s of airway compromise by 06/21/18 Pt will complete ADLs, fxl mobility w/ CG-min assist by 06/27/18. Ed will be mod I with basic transfers and in-room mobility with alexander FWW by 06-27-18 STRATEGY TO ACHIEVE GOALS: Frequent neuro checks. Monitor VS and labs. Bed alarm on, frequent rounding. - Active participation in OT sessions - Staff to assist with functional mobility and transfers with FWW prn Outcome: Improving Physical Therapy Plan of Care Treatment Note Summary: RN cleared patient for participation and patient agreeable to PT. Sarthak has be en participating in physical therapy for treatment of Impaired mobility, transfers, gait, an d functional moblity due to CVA with L side weakness and previous hx of multiple CVA's with old R side weakness/numbness RUE.. Emphasis of session included bed mobility, transfer susan tony, stand-pivot transfers to commode and bed. Patient demonstrates progress towards funct ional goals as evidenced by pt able to complete bed mobility and sit>supine with bed rails a nd [place] trapeze with CGA w/ tc this session, pt able to complete sit<>stand with modA 1P kell t this session but cont to require 2P/1+1P with transfers from bed<>chair<>commode d/t pt fa tigues quickly with stand-pivot transfers throughout session. Pt cont to present with min-mi ld impulsivity and required vc for safety and pacing throughout session, pt cont to present with reduced L sided use and weakness, LUE>LLE this session. Remaining barriers to discharg e and functional limitations include decreased insight into safety and deficits, decreased f unctional activity tolerance, decreased bed mobility, decreased functional transfers, decrea sed functional gait distance, decreased gait velocity, not yet able to mobilize at level saf e for home discharge, [facility] indicating significant impairment with basic functional mobility and medical status. Edward will benefit from continued therapeutic intervention to address ongoing impairments and increase safety and independence with activities necessary for safe discharge. Refer be low for specific details regarding functional levels. Physical Therapy Discharge Recommendations are: Recommended discharge disposition: (TBD) Post discharge physical therapy recommendation: will benefit from structured setting, ongo ing low intensity therapy, minimum 5 days of therapy/week Equipment Recommendations: bariatric, 2 wheeled walker (FWW) (has FWW) Planned Interventions: balance training, bed mobility training, gait training, home exerci se program, joint mobilization, lumbar stabilization, manual therapy techniques, motor coord ination training, stair training, strengthening, ROM (Range of Motion), postural re-educatio n, patient/family education, orthotic fitting/training, neuromuscular re-education, stretchi ng, icelandic ball techniques, transfer training, wheelchair management/propulsion training Recommended Frequency: 6 times/wk Patient Status/Goals: Reflects last filed data and may be from multiple contributors. Gait F/B stepping and side stepping for stand-pivot transfers, general safety d/t pt fatigue francisca ckly with upright activity LLE>RLE, reduced wt shifting with LLE, reduced LUE, pt min-mild i mpulsive with mobility, extra time/effort d/t L sided weakness/reduced use, general decondit ioning, vc for pacing, seqeuncing, safety, upright posture, AD mgmt, LE positioning, LUE pos itioning Level of [place]: set up required, verbal cues required, 1 person + 1 person to manage equipment, tactile cues required, moderate assist (50% patient effort) Assistive Device: 2 wheeled walker (FWW), bariatric Distance (feet): side steping 3' x3, F/B 2' x2 Gait Pattern Analysis: 3-point gait Gait Deviations: alize decreased, double stance time increased, limb motion velocity decr eased, [id number] clearance decreased, step length decreased, weight-shifting ability decr eased, [id number] ratio decreased Safety Issues: balance decreased during turns, sequencing ability decreased, step length de creased, weight-shifting ability decreased Impairments: pain, strength decreased, impaired balance, coordination impaired, motor contr ol impaired, ROM decreased, sensation decreased, decreased flexibility, postural control imp aired Transfers pt required modA 2P/1 +1P throughout session, pt tends to fatigue quickly with urpight acti vities and states legs(L>R) feel "wobbly", extra time/effort d/t L sided weakness, reduced L sided use UE>LE, general safety d/t instability with urpight activity, reduced L side st rength and use, L sided inattention, vc for upright posture, AD mgmt, LUE positioning, pacin g, sequencing, safety, LE positioning Bed-Chair, Level of [place]: moderate assist (50% patient effort), 1 person + 1 person to manage equipment, 2 person assist required, verbal cues required, tactile cues required Chair-Bed, Level of [place]: moderate assist (50% patient effort), 1 person + 1 person to manage equipment, verbal cues required, tactile cues required [id number], Assistive Device: 2 wheeled walker (FWW), bariatric Sit-Stand, Level of [place]: moderate assist (50% patient effort), verbal cues require d, set up required, 1 person + 1 person to manage equipment, tactile cues required, 2 person assist required Stand-Sit, Level of [place]: moderate assist (50% patient effort), set up required, ve rbal cues required, 1 person + 1 person to manage equipment [id number], Assistive Device: bariatric, 2 wheeled walker (FWW) Toilet, Level of [place]: moderate assist (50% patient effort), 2 person assist requir ed, verbal cues required, tactile cues required Toilet, Assistive Device: bariatric, 2 wheeled walker (FWW), commode (3 in 1) Safety Issues: balance decreased during turns, step length decreased, weight-shifting abili ty decreased, sequencing ability decreased Impairments: pain, strength decreased, impaired balance, ROM decreased, muscle tone abnorma l, decreased flexibility, sensation decreased, motor control impaired, postural control impa ired Bed Mobility extra time/effort d/t L sided weakness, reduced L LE/UE use, general safety d/t pt fatigues easily with mobility, mod instabilty with upright activities, pt able to utilize [place] trapeze and bed rails to mobilize in bed, pt tends to be impulsive with activities increasingly wit h fatigue, vc for pacing, safety, sequencing, hand placement, LE positioning Assistive Device: bed rails, overhead trapeze, HOB elevated Roll Left, Level of [place]: contact guard assist, verbal cues required, tactile cues required Roll Right, Level of [place]: contact guard assist, verbal cues required, tactile cues required Scoot/Bridge, Level of [place]: contact guard assist, verbal cues required, tactile cu es required Supine to Sit, Level of [place]: not tested (Pt EoB prior to session) Sit to Supine, Level of [place]: minimal assist (75% patient effort), verbal cues requ ired, tactile cues required (light assist with LLE back into bed) Safety Issues: decreased use of arms for pushing/pulling, decreased use of legs for bridgin g/pushing, impaired trunk control for bed mobility Impairments: decreased flexibility, ROM decreased, strength decreased, impaired balance, co ordination impaired, motor control impaired, postural control impaired, sensory feedback imp aired Therapeutic Exercise sit<>stand x4, static standing x3 ~20 sec secondary to fatigue LLE Bed exercises: bilateral, ankle pumps, quad sets, glut sets Repetitions: x8 Functional Endurance poor+ with min-mild activities presented this session, secondary to L sided weakness/reduce d use, pt fatigues quickly with upright activities and mobility this session PT Goal Review Date Most Recent Value STG Review Date 06/27/18 at 06/20/2018 1120 All Bed Mobility Goal Most Recent Value STG Status progressing at 06/22/2018 1015 STG [place] Level modified independent at 06/20/2018 1120 STG Assistive Device bed rails, HOB elevated, overhead trapeze at 06/20/2018 1120 [id number] Goal Most Recent Value STG Status progressing at 06/22/2018 1015 STG [place] Level modified independent at 06/20/2018 1120 STG Assistive Device 2 wheeled walker (FWW), bariatric at 06/20/2018 1120 Gait Goal Most Recent Value STG Status progressing at 06/22/2018 1015 STG [place] Level supervised at 06/20/2018 1120 STG Assistive Device 2 wheeled walker (FWW), bariatric at 06/20/2018 1120 STG Distance (feet) 50 at 06/20/2018 1120 Electronically signed by: Kayden Collins PTA, 06/22/2018 11:57 lan of Care - Nicki, Heavenly De Anda RN - 06/22/2018 4:43 AM PDTProblem: Patient Care Overview (Adult) Goal: Care Team Goals & Evaluation PROBLEM-RELATED GOALS: Pt neuros will improve by 06/22/18 (e.g. LUE strength will be equal to RUE, speech will be m ore clear.) Pt will have no s/sx of increased skin breakdown through 06/22/18. Pt will remain free from falls through 06/22/18. Pt will tolerate level 2 mechanical soft chopped foods and nectar thick liquids with no s/s of airway compromise by 06/21/18 Pt will complete ADLs, fxl mobility w/ CG-min assist by 06/27/18. Ed will be mod I with basic transfers and in-room mobility with alexander FWW by 06-27-18 STRATEGY TO ACHIEVE GOALS: Frequent neuro checks. Monitor VS and labs. Bed alarm on, frequent rounding. - Active participation in OT sessions - Staff to assist with functional mobility and transfers with FWW prn Goal Evaluation: Ed continues to verbalize his displeasure his diet, " I'm hungry and I don't want any mor e slop to eat or snot to drink." Reinforced r/f injury of aspirating if he gets things that are not able to down. He insists he needs real food. Pills with applesauce with no issue. Voiding in urinal but needs asst to aim properly. IV patent. lan of Care - Claudine Robledo RN - 06/21/2018 5:58 PM PDTPt is refusing to eat his diet. He says that he wants real food and real liquids. He says he can handle it and doesn't want what we are giv ing him. Dr. Giron said that we are not here to babysit him and that the pt can eat what we have or wait until speech can reevaluate him tomorrow. I told the pt that we have other foods that fit into the criteria for his diet. He requested applesauce, ice cream and puddin g. He has not been able to urinate very much for me either. We bladder scanned him and there w as [address] Giron about that as well and he said to try to help the pt stand and urinate that way. Or we should help him to the bedside commode and let him have some pr ivacy to try to urinate that way. He also said that he would put in an order for a straight cath if needed. I do not see the order yet. Other than that, he has had a good day. He went to CT earlier today and tolerated it well. Pt will possibly be going to IRF, returned case inspector says that he would benefit. Will continue to monitor and treat as prescribed. lan of Care - Ham byLorraine, Speech Pathologist - 06/21/2018 12:35 PM PDTFormatting of this note might be di fferent from the original. Problem: Patient Care Overview (Adult) Goal: Care Team Goals & Evaluation PROBLEM-RELATED GOALS: Pt neuros will improve by 06/22/18 (e.g. LUE strength will be equal to RUE, speech will be m ore clear.) Pt will have no s/sx of increased skin breakdown through 06/22/18. Pt will remain free from falls through 06/22/18. Pt will tolerate level 2 mechanical soft chopped foods and nectar thick liquids with no s/s of airway compromise by 06/21/18 Pt will complete ADLs, fxl mobility w/ CG-min assist by 06/27/18. Ed will be mod I with basic transfers and in-room mobility with alexander FWW by 06-27-18 STRATEGY TO ACHIEVE GOALS: Frequent neuro checks. Monitor VS and labs. Bed alarm on, frequent rounding. - Active participation in OT sessions - Staff to assist with functional mobility and transfers with FWW prn Outcome: Improving Speech Therapy Swallow Plan of Care COMPOSITION TEACHER Visit Type: Treatment Note Summary: Ed was seen sitting upright in chair at bedside for diet check during lunch meal. He presents with left sided facial droop. He consumed his mechanical soft chopped foods and nectar thick liquids. He refused nectar thick liquids this AM. Delayed cough noted occasiona lly throughout meal post swallow with solids. He demonstrated use of chin tuck with liquids. He trialed thin by cup 2x and coughed immediately post swallow. Anterior spillage noted dur ing meal with solids on left side. COMPOSITION TEACHER educated Ed on compensatory strategies for improved s wallow- SMALL bites/sips, Alternate liquids/solids, effortful swallow. He verbalized underst anding of strategies. He continues to present with mild-moderate oral pharyngeal dysphagia. ST recommends good tray set up. Dysphagia mechanical soft chopped foods. [place] thick liquid s. Straw ok. Upright in chair for all meals. SMALL bites/sips. Alternate liquids/solids. Slo w pacing. Extra sauces/gravies. Oral cares after every meal. Speech Language Pathology Discharge Recommendations are: Recommended discharge disposition: ADL assist, mobility assist Post discharge speech language pathology recommendation: continue COMPOSITION TEACHER tx for dysphagia Planned Interventions: Treatment Plan (COMPOSITION TEACHER): compensatory strategies, diet texture modific ation, home program instruction, patient/caregiver education, oral motor exercise Recommended Frequency: 2 times/wk, 3 times/wk COMPOSITION TEACHER Diagnosis: mild-moderate oral pharyngeal dysphagia At bedside, signs of aspiration included: wet/gurgly voice, immediate cough, delayed cough and throat clearing Risk of aspiration: Mild and Moderate Swallow Recommendations Recommended Solid Texture: dysphagia mechanical altered Recommended Liquid Texture: nectar thick liquids Recommended Medication Delivery: whole pills with thickened liquids, whole pills with puree Recommended Feeding/Eating Techniques: alternate between small bites and sips of food/liqui d, check mouth frequently for oral residue/pocketing, oral care before and after each meal, hard swallow with each bite or sip, maintain upright posture during/after eating for 30 mins , one small sip or bite at a time, slow rate Dysphagia Goal Most Recent Value STG Status progressing at 06/21/2018 1235 STG Pt will tolerate level 2 mechanical soft chopped foods and nectar thick liquids with n o s/s of airway compromise at 06/21/2018 1235 Additional Goals #1 COMPOSITION TEACHER Most Recent Value STG Status new at 06/21/2018 1235 STG Pt will complete oral motor exercises for improved facial droop with 75% accuracy and min cues. at 06/21/2018 1235 Electronically signed by: Lorraine Soriano, Speech Pathologist, 06/21/2018 17:00 lan o f Care - Rika Cerna, OT - 06/21/2018 11:55 AM PDTFormatting of this note might b e different from the original. Problem: Patient Care Overview (Adult) Goal: Care Team Goals & Evaluation PROBLEM-RELATED GOALS: Pt neuros will improve by 06/22/18 (e.g. LUE strength will be equal to RUE, speech will be m ore clear.) Pt will have no s/sx of increased skin breakdown through 06/22/18. Pt will remain free from falls through 06/22/18. Pt will tolerate level 2 mechanical soft chopped foods and nectar thick liquids with no s/s of airway compromise by 06/21/18 Pt will complete ADLs, fxl mobility w/ CG-min assist by 06/27/18. Ed will be mod I with basic transfers and in-room mobility with alexander FWW by 06-27-18 STRATEGY TO ACHIEVE GOALS: Frequent neuro checks. Monitor VS and labs. Bed alarm on, frequent rounding. - Active participation in OT sessions - Staff to assist with functional mobility and transfers with FWW prn Outcome: Improving Occupational Therapy Plan of Care Treatment Note Summary: Sarthak has been participating in occupational therapy for treatment of Impaired ADLs, decreased functional mobility, impaired activity tolerance, decreased safety awarenes s following admit for ischemic CVA, L-sided weakness. . Emphasis of session included neuro muscular reeducation LUE to increase ability for I with ADLs, IADLs, functional mobility,. Patient demonstrates progress towards functional goals as evidenced by participation and mot ivation with OT. Remaining barriers to discharge and functional limitations include decreas ed functional activity tolerance, decreased bed mobility, decreased functional transfers, de creased ability to perform ADLs, decreased ability to perform IADLs, decreased ability to pe rform medication management, unsafe discharge disposition, not yet able to mobilize at level safe for home discharge, [facility] indicating significant impairment with daily activities and medical status. Sarthak will benefit from continued therapeutic intervention to address ongoing impairments and increase safety and independence with activities necessary for safe discharge. Refer be low for specific details regarding functional levels. Occupational Therapy Discharge Recommendations are: Recommended discharge disposition: inpatient rehabilitation facility Post discharge occupational therapy recommendation: ongoing high intensity therapy, pt is motivated participant, minimum 5 therapy days/week, will benefit from structured setting Equipment Recommendations: none Planned Interventions:ADL retraining, balance training, bed mobility training, motor coordi nation training, neuromuscular re-education, fine motor coordination training, ROM (Range of Motion), strengthening, transfer training (edema mgmt) Recommended Frequency: 5 times/wk Patient Status/Goals: Reflects last filed data and may be from multiple contributors. Functional Endurance good to fair with activities. Cognitive Appears WFL, may warrant further assessment if indicated. Significant L-sided facial droop . Mood/Behavior: behavior appropriate to situation, calm, cooperative Orientation: oriented x 4 Speech: slurred Follows Commands/Answers Questions: able to follow multi-step instructions ROM Hx of LUE fx site in upper and lower arms, both w/ plates/pinning. L UE ROM: AROM with C/O shoulder pain. PNF treatment. Functional activities-Reaching grabi ng objects. Able to reach to bed tray, bringing self up to 90 degree sitting position from r ecliner, grab object. required R hand for assist to hold onto object. R UE ROM: WFL, Pt stated shoulder was present prior to admission. Sensation: sharp/dull: severely decreased LUE. Pt stated LUE feels heavy. Tone: slight hypertonicity with bicep and pect minor. Hypotonicity is decreasing. OT Goal Review Date Most Recent Value STG Review Date 06/27/18 at 06/20/2018 1336 Grooming Goal Most Recent Value STG Status progressing at 06/21/2018 1155 STG [place] Level stand by assist at 06/20/2018 1336 UB Dressing Goal Most Recent Value STG Status progressing at 06/21/2018 1155 STG [place] Level stand by assist at 06/20/2018 1336 Toileting Goal Most Recent Value STG Status new at 06/20/2018 1336 STG [place] Level contact guard assist at 06/20/2018 1336 Toilet Transfer Goal Most Recent Value STG Status new at 06/20/2018 1336 STG [place] Level contact guard assist at 06/20/2018 1336 Electronically signed by: Rika Cerna OT, 06/21/2018 13:41 [facility] Erik Louann Harris - 06/21/2018 10:44 AM PDTThis CM has a message out to the attending provider for a referral to IRF. Electronically signed by: Louann Harris 06/21/2018 10:45 The attending provider called this CM inquiring on IRF consult. This CM let him know that Andrew marie has had two CVA's in the past and that PT feels his would benefit. Electronically signed by: Louann Harris 06/21/2018 11:02 lan of Erik - Иван Quispe, SCREW MACHINE SET UP OPERATOR - 06/21/2018 8:53 AM PDTFormatting of this note might be different from the orig inal. Problem: Patient Care Overview (Adult) Goal: Care Team Goals & Evaluation PROBLEM-RELATED GOALS: Pt neuros will improve by 06/22/18 (e.g. LUE strength will be equal to RUE, speech will be m ore clear.) Pt will have no s/sx of increased skin breakdown through 06/22/18. Pt will remain free from falls through 06/22/18. Pt will tolerate level 2 mechanical soft chopped foods and nectar thick liquids with no s/s of airway compromise by 06/21/18 Pt will complete ADLs, fxl mobility w/ CG-min assist by 06/27/18. Ed will be mod I with basic transfers and in-room mobility with alexander FWW by 06-27-18 STRATEGY TO ACHIEVE GOALS: Frequent neuro checks. Monitor VS and labs. Bed alarm on, frequent rounding. - Active participation in OT sessions - Staff to assist with functional mobility and transfers with FWW prn Outcome: Improving Physical Therapy Plan of Care Treatment Note Summary: Sarthak has been participating in physical therapy for treatment of Impaired mobil ity, transfers, gait, and functional moblity due to CVA with L side weakness and previous hx of multiple CVA's with old R side weakness/numbness RUE. Emphasis of session included func tional transfers, pre-gt and short distance gt. Patient demonstrates progress towards funct ional goals as evidenced by pt was able to increase gt distance. Pt up in chair for breakfas t post tx. Remaining barriers to discharge and functional limitations include decreased ins ight into safety and deficits, decreased functional activity tolerance, decreased bed mobili ty, decreased functional transfers, decreased functional gait distance, decreased gait veloc ity, not yet able to mobilize at level safe for home discharge, [facility] indicating significant impairment with basic functional mobility and medical status. Sarthak will benefit from continued therapeutic intervention to address ongoing impairments and increase safety and independence with activities necessary for safe discharge. Refer be low for specific details regarding functional levels.-t Physical Therapy Discharge Recommendations are: Recommended discharge disposition: (TBD) Post discharge physical therapy recommendation: will benefit from structured setting, ongo ing low intensity therapy, minimum 5 days of therapy/week Equipment Recommendations: bariatric, 2 wheeled walker (FWW) (has FWW) Planned Interventions: balance training, bed mobility training, gait training, home exerci se program, joint mobilization, lumbar stabilization, manual therapy techniques, motor coord ination training, stair training, strengthening, ROM (Range of Motion), postural re-educatio n, patient/family education, orthotic fitting/training, neuromuscular re-education, stretchi ng, icelandic ball techniques, transfer training, wheelchair management/propulsion training Recommended Frequency: 6 times/wk Patient Status/Goals: Reflects last filed data and may be from multiple contributors. Gait lateral stepping at EOB and f/b from chair; 2P hands on for safety; help with walker manage ment Level of [place]: minimal assist (75% patient effort), set up required, verbal cues re quired, 1 person + 1 person to manage equipment, tactile cues required Assistive Device: 2 wheeled walker (FWW), bariatric Distance (feet): lateral 4, f/b 8 Safety Issues: balance decreased during turns, sequencing ability decreased, step length de creased, weight-shifting ability decreased Impairments: pain, strength decreased, impaired balance, coordination impaired, motor contr ol impaired, ROM decreased, sensation decreased, decreased flexibility Transfers pt needing min/mod assist to come upright; pt reports feeling "wobbly and unsteady" in [place] Bed-Chair, Level of [place]: moderate assist (50% patient effort), minimal assist (75% patient effort), 1 person + 1 person to manage equipment Chair-Bed, Level of [place]: not tested [id number], Assistive Device: 2 wheeled walker (FWW), bariatric Sit-Stand, Level of [place]: moderate assist (50% patient effort), verbal cues require d, set up required, 1 person + 1 person to manage equipment Stand-Sit, Level of [place]: moderate assist (50% patient effort), set up required, ve rbal cues required, 1 person + 1 person to manage equipment [id number], Assistive Device: bariatric, 2 wheeled walker (FWW) Safety Issues: balance decreased during turns, step length decreased, weight-shifting abili ty decreased, sequencing ability decreased Impairments: pain, strength decreased, impaired balance, ROM decreased, muscle tone abnorma l, decreased flexibility, sensation decreased, motor control impaired Bed Mobility NT; pt sitting at EOB on arrival up in chair for breakfast Functional Endurance fair for activities presented PT Goal Review Date Most Recent Value STG Review Date 06/27/18 at 06/20/2018 1120 All Bed Mobility Goal Most Recent Value STG Status new at 06/20/2018 1120 STG [place] Level modified independent at 06/20/2018 1120 STG Assistive Device bed rails, HOB elevated, overhead trapeze at 06/20/2018 1120 [id number] Goal Most Recent Value STG Status progressing at 06/21/2018 0902 STG [place] Level modified independent at 06/20/2018 1120 STG Assistive Device 2 wheeled walker (FWW), bariatric at 06/20/2018 1120 Gait Goal Most Recent Value STG Status progressing at 06/21/2018 0902 STG [place] Level supervised at 06/20/2018 1120 STG Assistive Device 2 wheeled walker (FWW), bariatric at 06/20/2018 1120 STG Distance (feet) 50 at 06/20/2018 1120 Electronically signed by: Cooper Quispe PTA, 06/21/2018 9:03 lan of Care - Sienna Rodney RN - 06/21/2018 4:24 AM PDTProblem: Patient Care Overview (Adult) Goal: Care Team Goals & Evaluation PROBLEM-RELATED GOALS: Pt neuros will improve by 06/22/18 (e.g. LUE strength will be equal to RUE, speech will be m ore clear.) Pt will have no s/sx of increased skin breakdown through 06/22/18. Pt will remain free from falls through 06/22/18. Pt will tolerate level 2 mechanical soft chopped foods and nectar thick liquids with no s/s of airway compromise by 06/21/18 Pt will complete ADLs, fxl mobility w/ CG-min assist by 06/27/18. Ed will be mod I with basic transfers and in-room mobility with alexander FWW by 06-27-18 STRATEGY TO ACHIEVE GOALS: Frequent neuro checks. Monitor VS and labs. Bed alarm on, frequent rounding. - Active participation in OT sessions - Staff to assist with functional mobility and transfers with FWW prn Outcome: Improving Goal Evaluation: Pt aaox4 no falls this shift. Pt not out of bed but turns self independently in bed. Pt wi th slurred speech and facial droop and tongue deviation. L arm weak with neglect hand medical insurance coding specialist w eak. Pt reports some generalized pain 1 norco covered t/o night. Push pulls equal and modera tely strong. VSS tolerated his cpap for half night otherwise on 2L/nc while asleep. Iv sl fl ushes well. Tolerating pills in applesauce. lan of Care - Claudine Carrera RN - 06/20/2018 3:27 PM PDTProblem: Patient Care Overview (Adult) Goal: Care Team Goals & Evaluation PROBLEM-RELATED GOALS: Pt neuros will improve by 06/22/18 (e.g. LUE strength will be equal to RUE, speech will be m ore clear.) Pt will have no s/sx of increased skin breakdown through 06/22/18. Pt will remain free from falls through 06/22/18. Pt will tolerate level 2 mechanical soft chopped foods and nectar thick liquids with no s/s of airway compromise by 06/21/18 STRATEGY TO ACHIEVE GOALS: Frequent neuro checks. Monitor VS and labs. Bed alarm on, frequent rounding. RESTRAINT-RELATED GOALS: STRATEGIES TO ACHIEVE RESTRAINT GOALS: Goal Evaluation: Pt had a CT scan today because his PM made him not eligible to have an MRI. He was able to get up to his chair with PT, with a stand pivot with at least 2 people. He has been using th e trapeze bar to adjust himself in bed. His neuro checks have been consistent throughout the day. Will continue to monitor and treat as prescribed. Medications are in grocery bag in his closet. Med rec person is not here today, work on thi s tomorrow. Pt was having increased slurred speech when getting up to eat his supper. He told us when h e gets irritated his speech gets worse. He was more agitated when we tried to help him get u p to eat. Will continue to monitor. Electronically signed by Claudine Carrera RN at 2017 6:01 PM PDTPlan of Care - Krysten Starkey, Speech Pathologist - 06/20/2018 2:13 PM PD T Problem: Patient Care Overview (Adult) Goal: Care Team Goals & Evaluation PROBLEM-RELATED GOALS: Pt neuros will improve by 06/22/18 (e.g. LUE strength will be equal to RUE, speech will be m ore clear.) Pt will have no s/sx of increased skin breakdown through 06/22/18. Pt will remain free from falls through 06/22/18. Pt will tolerate level 2 mechanical soft chopped foods and nectar thick liquids with no s/s of airway compromise by 06/21/18 STRATEGY TO ACHIEVE GOALS: Frequent neuro checks. Monitor VS and labs. Bed alarm on, frequent rounding. RESTRAINT-RELATED GOALS: STRATEGIES TO ACHIEVE RESTRAINT GOALS: Outcome: Improving Speech Therapy Swallow Plan of Care COMPOSITION TEACHER Visit Type: Initial Evaluation Note COMPOSITION TEACHER Diagnosis: mild-moderate oral pharyngeal dysphagia At bedside, signs of aspiration included: coughing, delayed cough and throat clearing Risk of aspiration: Mild and Moderate Summary: Pt sitting upright in bed for swallow assessment s/p admit for ischemic CVA. Pt with Hx of IDDM, afib, HTN, HIV, chronic heart failure. OM assessment reveals L side facial droop and L lingual deviation. Pt is missing a significant number of teeth. Pt reports no Hx of difficulty eating, however, reports some coughing particularly when drinking thin liquid s. Delayed coughing noted following trials of ice chips and thin liquids. L side leakage and residue noted following trials. Impulsivity and extra large bite sizes noted. COMPOSITION TEACHER rec's lev el 2 mechanical soft chopped foods and nectar thick liquids, upright posture, reduced bite s ize and rate of intake, alternating small bite with liquid wash. Please provide oral care tw ice daily. Oral Motor Structure and Function Oral Motor Structure and Function General Structure & Function: functional Dentition Assessment: dentition impacting ability to chew some foods, poor hygiene, signifi cant number missing teeth, teeth are in poor condition, has dentures but unable to use them due to poor fit/pain Secretion Management: left corner drooling Mucosal Quality: sticky Volitional Swallow: some issues initiating volitional swallow Volitional Cough: weak volitional cough Oral Musculature General Assessment: lingual impairment, buccal impairment Lingual Strength and Mobility: reduced ROM/coordination Buccal Strength and Mobility: reduced ROM/coordination, L side faical droop Ice Chips Most Recent Value Mode of Presentation self fed, fed by clinician at 06/20/2018 1329 Volume(s) Presented (mL) patient controlled volumes at 06/20/2018 1329 Oral Phase Results impaired oral phase, signs of dysfunction present at 06/20/2018 132 Pharyngeal Phase Results impaired pharyngeal phase of swallowing at 06/20/2018 1329 Additional Documentation swallowing concerns, oral preparation concerns, oral residue at 1329 Oral Preparation Concerns rotational chew impaired, leakage, inadequate lip seal impacting function at 06/20/2018 1329 Oral Residue drooling, left side at 06/20/2018 1329 Swallowing Concerns coughing/choking following swallow, throat clearing noted at 8 1329 Thin Liquids Most Recent Value Mode of Presentation fed by clinician, self fed at 06/20/2018 1329 Oral Phase Results impaired oral phase, signs of dysfunction present at 06/20/2018 1329 Pharyngeal Phase Results impaired pharyngeal phase of swallowing at 06/20/2018 1329 Additional Documentation swallowing concerns, oral preparation concerns, oral residue at 1329 Oral Preparation Concerns rotational chew impaired, leakage, inadequate lip seal impacting function at 06/20/2018 1329 Oral Residue drooling, left side at 06/20/2018 1329 Swallowing Concerns coughing/choking following swallow, throat clearing noted at 8 1329 Puree Most Recent Value Mode of Presentation fed by clinician, self fed at 06/20/2018 1329 Oral Phase Results impaired oral phase, signs of dysfunction present at 06/20/2018 1329 Pharyngeal Phase Results safe swallow, no signs/symptoms of aspiration or penetration at 1329 Additional Documentation oral preparation concerns, oral residue at 06/20/2018 1329 Oral Preparation Concerns leakage, inadequate lip seal impacting function at 06/20/2018 13 29 Oral Residue left lateral sulci residue at 06/20/2018 1329 Spoon Thick Most Recent Value Mode of Presentation fed by clinician, self fed at 06/20/2018 1329 Oral Phase Results impaired oral phase, signs of dysfunction present at 06/20/2018 1329 Pharyngeal Phase Results safe swallow, no signs/symptoms of aspiration or penetration at 1 1329 Additional Documentation oral preparation concerns, oral residue at 06/20/2018 1329 Oral Preparation Concerns rotational chew impaired, leakage, inadequate lip seal impacting function at 06/20/2018 1329 Oral Residue drooling, left side, left lateral sulci residue at 06/20/2018 1329 Solid Most Recent Value Mode of Presentation fed by clinician, self fed at 06/20/2018 1329 Volume(s) Presented (mL) patient controlled volumes at 06/20/2018 1329 Oral Phase Results impaired oral phase, signs of dysfunction present at 06/20/2018 1329 Pharyngeal Phase Results safe swallow, no signs/symptoms of aspiration or penetration at 1 1329 Additional Documentation oral preparation concerns, oral residue at 06/20/2018 1329 Oral Preparation Concerns leakage, inadequate lip seal impacting function at 06/20/2018 13 29 Oral Residue drooling, left side, left lateral sulci residue at 06/20/2018 1329 Mixed Consistencies Most Recent Value Mode of Presentation fed by clinician, self fed at 06/20/2018 1329 Volume(s) Presented (mL) patient controlled volumes at 06/20/2018 1329 Oral Phase Results impaired oral phase, signs of dysfunction present at 06/20/2018 1329 Pharyngeal Phase Results safe swallow, no signs/symptoms of aspiration or penetration at 1 1329 Additional Documentation oral preparation concerns, oral residue at 06/20/2018 1329 Oral Preparation Concerns leakage, inadequate lip seal impacting function at 06/20/2018 13 29 Oral Residue drooling, left side, left lateral sulci residue at 06/20/2018 1329 Dysphagia Goal Most Recent Value STG Status new at 06/20/2018 1317 STG Pt will tolerate level 2 mechanical soft chopped foods and nectar thick liquids with n o s/s of airway compromise at 06/20/2018 1317 Swallow Recommendations Recommended Solid Texture: dysphagia mechanical altered Recommended Liquid Texture: nectar thick liquids Recommended Medication Delivery: whole pills with thickened liquids Recommended Feeding/Eating Techniques: alternate between small bites and sips of food/liqui d, check mouth frequently for oral residue/pocketing, oral care before and after each meal, hard swallow with each bite or sip, maintain upright posture during/after eating for 30 mins , one small sip or bite at a time, slow rate Speech Language Pathology Discharge Recommendations are: Recommended discharge disposition: ADL assist, mobility assist Post discharge speech language pathology recommendation: continue COMPOSITION TEACHER tx for dysphagia Planned Interventions: Treatment Plan (COMPOSITION TEACHER): compensatory strategies, diet texture modific ation, home program instruction Recommended Frequency: 1-2 sessions, for follow up lectronically signed by: Krysten Starkey, Speech Pathologist, 06/20/2018 14:06 lan of Care - Reshma Oliveira, OT - 06/20/2018 1:36 PM PDTFormatting of this note might be d ifferent from the original. Problem: Patient Care Overview (Adult) Goal: Care Team Goals & Evaluation PROBLEM-RELATED GOALS: Pt neuros will improve by 06/22/18 (e.g. LUE strength will be equal to RUE, speech will be m ore clear.) Pt will have no s/sx of increased skin breakdown through 06/22/18. Pt will remain free from falls through 06/22/18. Pt will tolerate level 2 mechanical soft chopped foods and nectar thick liquids with no s/s of airway compromise by 06/21/18 Pt will complete ADLs, fxl mobility w/ CG-min assist by 06/27/18. STRATEGY TO ACHIEVE GOALS: Frequent neuro checks. Monitor VS and labs. Bed alarm on, frequent rounding. - Active participation in OT sessions RESTRAINT-RELATED GOALS: STRATEGIES TO ACHIEVE RESTRAINT GOALS: Occupational Therapy Plan of Care Initial Evaluation, Treatment Note Summary: Sarthak presents to occupational therapy with Impaired ADLs, decreased functiona l mobility, impaired activity tolerance, decreased safety awareness following admit for isch emic CVA, L-sided weakness. . Objective exam reveals impairments with aerobic capacity/end urance, anthropometric characteristics, arousal, attention, and cognition, ergonomics and jessica dy mechanics, gait, locomotion, and balance, integumentary integrity, joint integrity and mo bility, muscle performance, neuromotor, sensory integration/regulation, social dynamics, booker tilation and respiration/gas exchange, ADLs; fxl mobility; LUE function. Barriers to discha rge and functional limitations include decreased insight into safety and deficits, decreased functional activity tolerance, decreased bed mobility, decreased functional transfers, decr eased ability to perform BADLs, decreased ability to perform IADLs, decreased ability to per form medication management, demonstrating need for 24/7 supervision, unsafe discharge dispos ition, not yet able to mobilize at level safe for home discharge, [facility] indicating significa nt impairment with daily activities and medical status. Currently requiring level of care h is cannot provide. Pt may benefit from further rehab intervention to facilitate increa sed functional independence. Edward will benefit from therapeutic intervention to address impairments and increase safet y and independence with activities necessary for safe discharge. Refer below for specific d etails regarding functional levels. Precautions/Limitations: falls, swallowing, oxygen therapy device and L/min Precaution Comment: C-Pap when sleeping. Left Lower Extremity Weight-Bearing: weight-bearing as tolerated Right Lower Extremity Weight-Bearing: full weight-bearing Previous Level of Function: Transferring: independent Ambulation: independent Toileting: independent Bathing: assistive person Dressing: assistive person Eating: independent Communication: understands/communicates without difficulty Swallowin-->swallows foods/liquids without difficulty Equipment Currently Used at Home: 4 wheeled walker (4WW), commode, 3 in 1, grab bars, hand held shower head, hospital bed, overhead trapeze, internal grinder set up operator, shower chair Prior Functional Level Comment: Pt states he has a caregiver come to his home 5 days a week for 2 hours to help bathe and dress him. Pt reports he cooks. Prefers being naked in the home. Potential available assistance at discharge: Role Relationships Comment: Pt reports his 's health is not good. She would be unable to care for him if he requires increased assistance. Has caregiver 2 hrs day for bathing, d ressing? Living Environment/Accessibility: Lives With: spouse Living Arrangements: house Home Accessibility: tub/shower is not walk in, ramps present at home, grab bars present (emilee gray) Financial Concerns: none Transportation Available: ambulance, car Living Environment Comment: Commode over toilet; has shower seat Patient/Family s Goals: Be able to get up and walk around, do what he was doing before. Rehabilitation potential: good, to achieve stated therapy goals Occupational Therapy Discharge Recommendations are: Recommended discharge disposition: inpatient rehabilitation facility, home with assist, [facility] (TBD) Post discharge occupational therapy recommendation: pt is motivated participant, minimum 5 therapy days/week, will benefit from structured setting (TBD) Equipment Recommendations: none Planned Interventions:ADL retraining, balance training, bed mobility training, motor coordi nation training, neuromuscular re-education, fine motor coordination training, ROM (Range of Motion), strengthening, transfer training (edema mgmt) Recommended Frequency: 5 times/wk Patient Status/Goals: Reflects last filed data and may be from multiple contributors. ADLs Further ADLs @ next visit. Historically, pt reports he does not wear any clothes @ home. Functional Endurance Poor. Pt fatigued w/ initial LUE assessment, but was willing to continue. He complete bed mobility- tired @ conclusion. Cognitive Appears WFL, may warrant further assessment if indicated. Significant L-sided facial droop . Speech: slurred Bed Mobility Pt has hospital bed and trapeze @ home, both of which he relies heavily on for all bed mobi lity. Generally transfers to R side. D/t body habitus, extensive effort and time to comple te transfer. Assistive Device: bed rails, overhead trapeze Supine to Sit, Level of [place]: moderate assist (50% patient effort), verbal cues req uired, set up required (To R) Safety Issues: decreased use of arms for pushing/pulling, decreased use of legs for bridgin g/pushing, impaired trunk control for bed mobility Impairments: decreased flexibility, ROM decreased, strength decreased, impaired balance, co ordination impaired, motor control impaired, postural control impaired, sensory feedback imp aired Transfers Further fxl mobility @ next visit. Time spent on interview, LUE function, bed mobility. ROM Hx of LUE fx site in upper and lower arms, both w/ plates/pinning. L UE ROM: Supine- WFL shoulder extension w/ effort/time. WFL elbow flex/ext; impaired IR/E R, wrist flex/extension; historically limited supination secondary hx of fx, fxl pronation. Gross grasp is functional in movement, lacking minimal extension. R UE ROM: WFL Strength L UE Strength: Grossly 3-/5 AMPAC Daily Activity AMPA DAILY ACTIVITY Putting on /taking off LE Clothing: mod or max assist/a lot of help Bathing (washing, rinsing, drying): mod or max assist/a lot of help Toileting (toilet, bedpan or urinal): mod or max assist/a lot of help Putting on / taking off UE clothing: mod or max assist/a lot of help Taking care of personal grooming : min assist, CGA, SBA, Supervision/a little help Eating meals: min assist, CGA, SBA, Supervision/a little help TOTAL - [facility] DAILY ACTIVITY : 14 Completed the [facility] Activity Measure for Post Acute Care (AM-PAC) "6 Clicks" [facility] Activity Inpatient Short Form. This version of the AM-PAC is an assessment tool used to measure a person's level of disability in performing functional daily tasks. This patient' s score indicates a performance of 59.67% impairment in the functioning of basic daily acti vities. Raw Score - Functional Limitation % (for CMS) - "Severity Modifier" CN 6 - 100.00 CM 7 - 92.44 8 - 85.69 CL 9 - 79.59 10 - 74.70 11 - 70.42 12 - 66.57 13 - 63.03 CK 14 - 59.67 15 - 56.46 16 - 53.32 17 - 50.11 18 - 46.65 19 - 42.80 CJ 20 - 38.32 21 - 32.79 22 - 25.80 CI 23 - 15.86 CH 24 - 0.00 Further ADL goals may be established according to pt's preferred habits. May require furth er interview to determine habits regarding when caregiver is present. OT Goal Review Date Most Recent Value STG Review Date 06/27/18 at 06/20/2018 1336 Grooming Goal Most Recent Value STG Status new at 06/20/2018 1336 STG [place] Level stand by assist at 06/20/2018 1336 UB Dressing Goal Most Recent Value STG Status new at 06/20/2018 1336 STG [place] Level stand by assist at 06/20/2018 1336 Toileting Goal Most Recent Value STG Status new at 06/20/2018 1336 STG [place] Level contact guard assist at 06/20/2018 1336 Toilet Transfer Goal Most Recent Value STG Status new at 06/20/2018 1336 STG [place] Level contact guard assist at 06/20/2018 1336 Electronically signed by: Reshma Oliveira, OT, 06/20/2018 16:22 lan of Care - Karthik Plata, PT - 06/20/2018 12:00 PM PDTFormatting of this note might be different fr om the original. Problem: Patient Care Overview (Adult) Goal: Care Team Goals & Evaluation PROBLEM-RELATED GOALS: Pt neuros will improve by 06/22/18 (e.g. LUE strength will be equal to RUE, speech will be m ore clear.) Pt will have no s/sx of increased skin breakdown through 06/22/18. Pt will remain free from falls through 06/22/18. Pt will tolerate level 2 mechanical soft chopped foods and nectar thick liquids with no s/s of airway compromise by 06/21/18 Pt will complete ADLs, fxl mobility w/ CG-min assist by 06/27/18. Ed will be mod I with basic transfers and in-room mobility with alexander FWW by 06-27-18 STRATEGY TO ACHIEVE GOALS: Frequent neuro checks. Monitor VS and labs. Bed alarm on, frequent rounding. - Active participation in OT sessions - Staff to assist with functional mobility and transfers with FWW prn Physical Therapy Plan of Care Initial Evaluation, Treatment Note Summary: Sarthak presents to physical therapy with Impaired mobility, transfers, gait, an d functional moblity due to CVA with L side weakness and previous hx of multiple CVA's with old R side weakness/numbness RUE. Overall the patient requires min to mod A for safe and fun ctional mobility from bed to chair with L neglect noted george in L arm and hand. Objective ex am reveals impairments with aerobic capacity/endurance, anthropometric characteristics, arou andrea, attention, and cognition, ergonomics and body mechanics, gait, locomotion, and balance, integumentary integrity, joint integrity and mobility, muscle performance, neuromotor, sens ory integration/regulation, social dynamics, ventilation and respiration/gas exchange, aware ness of deficits. Barriers to discharge and functional limitations include decreased insigh t into safety and deficits, decreased functional activity tolerance, decreased bed mobility, decreased functional transfers, decreased functional gait distance, decreased gait velocity , not yet able to mobilize at level safe for home discharge, [facility] indicating significant im pairment with basic functional mobility and medical status. Edward will benefit from therapeutic intervention to address impairments and increase safet y and independence with activities necessary for safe discharge. Refer below for specific d etails regarding functional levels. Precautions/Limitations: falls, swallowing, oxygen therapy device and L/min Precaution Comment: C-Pap when sleeping. Left Lower Extremity Weight-Bearing: weight-bearing as tolerated Right Lower Extremity Weight-Bearing: full weight-bearing Previous Level of Function: Transferring: independent Ambulation: independent Toileting: independent Bathing: assistive person Dressing: assistive person Eating: independent Communication: understands/communicates without difficulty Swallowin-->swallows foods/liquids without difficulty Equipment Currently Used at Home: 4 wheeled walker (4WW), commode, 3 in 1, grab bars, hand held shower head, hospital bed, overhead trapeze, internal grinder set up operator, shower chair Prior Functional Level Comment: Pt states he has a caregiver come to his home 5 days a week for 2 hours to help bathe and dress him. Pt reports he cooks. Prefers being naked in the home. Potential available assistance at discharge: Role Relationships Comment: Pt reports his 's health is not good. She would be unable to care for him if he requires increased assistance. Has caregiver 2 hrs day for bathing, d ressing? Pt states he has a caregiver come to his home 5 days a week for 2 hours to help bathe and d ress him. Pt reports he cooks. Prefers being naked in the home. pt reports his caregiver quit approx 2 weeks ago. He reports he runs the household his way and prefers to be called "Ed". He says his only drives when she can see, but she cant s ee right now, and is scheduled for eye surgery later this week. Living Environment/Accessibility: Lives With: spouse Living Arrangements: house Home Accessibility: tub/shower is not walk in, ramps present at home, grab bars present (emilee gray) Financial Concerns: none Transportation Available: ambulance, car Living Environment Comment: Commode over toilet; has shower seat Patient/Family s Goals: return to PLOF Rehabilitation potential: good, to achieve stated therapy goals Physical Therapy Discharge Recommendations are: Recommended discharge disposition: (TBD) Post discharge physical therapy recommendation: will benefit from structured setting, ongo ing low intensity therapy, minimum 5 days of therapy/week Equipment Recommendations: bariatric, 2 wheeled walker (FWW) (has FWW) Planned Interventions: balance training, bed mobility training, gait training, home exerci se program, joint mobilization, lumbar stabilization, manual therapy techniques, motor coord ination training, stair training, strengthening, ROM (Range of Motion), postural re-educatio n, patient/family education, orthotic fitting/training, neuromuscular re-education, stretchi ng, icelandic ball techniques, transfer training, wheelchair management/propulsion training Recommended Frequency: 6 times/wk Patient Status/Goals: Reflects last filed data and may be from multiple contributors. Gait at bedside only Level of [place]: minimal assist (75% patient effort), moderate assist (50% patient ef fort) Assistive Device: 2 wheeled walker (FWW), bariatric Distance (feet): 3-4 ft to chair only Transfers bed to bedside chair with alexander fww. Bed-Chair, Level of [place]: moderate assist (50% patient effort), minimal assist (75% patient effort) Chair-Bed, Level of [place]: minimal assist (75% patient effort), moderate assist (50% patient effort) Kut-Woydx-Umy, Assistive Device: 2 wheeled walker (FWW), bariatric Bed Mobility Pt has a hospital bed and trapeze at home, has a [facility] ramp as well. relies heavily on bed tijerina l and trapeze for mobiltiy due to old L shoulder injury. Body habitus requires addl time and effort to mobilize. Assistive Device: bed rails, overhead trapeze, HOB elevated Supine to Sit, Level of [place]: moderate assist (50% patient effort), verbal cues req uired, set up required Safety Issues: decreased use of arms for pushing/pulling, decreased use of legs for bridgin g/pushing, impaired trunk control for bed mobility, cognitive deficits limit understanding Impairments: decreased flexibility, ROM decreased, strength decreased, impaired balance, co ordination impaired, motor control impaired, postural control impaired, sensory feedback imp aired Balance fair- Functional Endurance poor, fatigued easily ROM L LE ROM: Grossly WFL for body habitus type R LE ROM: Grossly WFL for body habitus type Strength L LE Strength: grossly 4-/5 R LE Strength: grossly 4-/5 AMPAC BASIC MOBILITY [facility] BASIC MOBILITY Turning over in bed: a lot of difficulty without assistance Sitting down /standing up from arm chair: a lot of difficulty without assistance Moving from supine to sitting on edge of bed: a lot of difficulty without assistance Moving to and from a bed to a chair : mod or max assist/a lot of help Walking in hospital room: mod or max assist/a lot of help Climbing 3-5 steps with a railing: dependent/unable TOTAL - [facility] BASIC MOBILITY : 11 Completed the [facility] Activity Measure for Post Acute Care (AM-PAC) "6 Clicks" [facility] Mobility Inpatient Short Form. This version of the AM-PAC is an assessment tool used to measure a person's level of disability in performing basic mobility tasks. This patient's score indicates a performance of 72.57% impairment in the functioning of basic mobility. Raw Score - Functional Limitation % (for CMS) - "Severity Modifier" CN 6 - 100.00 CM 7 - 92.36 8 - 86.62 9 - 81.38 CL 10 - 76.75 11 - 72.57 12 - 68.66 13 - 64.91 14 - 61.29 CK 15 - 57.70 16 - 54.16 17 - 50.57 18 - 46.58 19 - 41.77 CJ 20 - 35.83 21 - 28.97 22 - 20.91 CI 23 - 11.2 CH 24 - 0.00 Predicted Discharge During Acute Hospitalization (Raw Score) Home = 20.1 With assist = 17.9 SNF = 14 IRF = 13.6 LTAC = 11.5 PT Goal Review Date Most Recent Value STG Review Date 06/27/18 at 06/20/2018 1120 All Bed Mobility Goal Most Recent Value STG Status new at 06/20/2018 1120 STG [place] Level modified independent at 06/20/2018 1120 STG Assistive Device bed rails, HOB elevated, overhead trapeze at 06/20/2018 1120 [id number]-[id number] Goal Most Recent Value STG Status new at 06/20/2018 1120 STG [place] Level modified independent at 06/20/2018 1120 STG Assistive Device 2 wheeled walker (FWW), bariatric at 06/20/2018 1120 Gait Goal Most Recent Value STG Status new at 06/20/2018 1120 STG [place] Level supervised at 06/20/2018 1120 STG Assistive Device 2 wheeled walker (FWW), bariatric at 06/20/2018 1120 STG Distance (feet) 50 at 06/20/2018 1120 Electronically signed by: Karthik Martinez, PT, 06/20/2018 16:44 lan of Ho Salomon LICSW - 06/20/2018 11:33 AM PDTProblem: Discharge Planning Goal: Patient will be discharged in a safe manner Outcome: Improving Visited with this 67 year old from [place] who lives with his . He has had t wo previous strokes and uses a walker at home and has a [facility] installed ramp to get into the ho use. The patient is 100% service connected and he sees Dr. Cao at the [facility]. This returned case inspector called and spoke with Tanisha in the [facility] office at the [facility] to let her know that he is here. The patient does not have a physician in [place]. He does get 2 ho urs a day 5 days a week of care giving through [facility]. The patient's will be coming to day bringing his medications ad his CPAP.Electronically signed by: BEL Hong W 06/20/2018 11:33 lan of Ana Miranda RN - 06/20/2018 8:02 AM PDTProblem: Patient Care Overview (Adult) Goal: Care Team Goals & Evaluation PROBLEM-RELATED GOALS: Pt neuros will improve by 06/22/18 (e.g. LUE strength will be equal to RUE, speech will be m ore clear.) Pt will have no s/sx of increased skin breakdown through 06/22/18. Pt will remain free from falls through 06/22/18. STRATEGY TO ACHIEVE GOALS: Frequent neuro checks. Monitor VS and labs. Bed alarm on, frequent rounding. RESTRAINT-RELATED GOALS: STRATEGIES TO ACHIEVE RESTRAINT GOALS: Outcome: Unchanged Goal Evaluation: Pt remains free from falls, shows no s/sx of infection. Pt A/Ox4, slurred speech but logic al. Finger to nose is off with left hand. Slight pronator drift with LUE, MS 3/5 LUE. Slight left facial droop with tongue deviation. PERRL, but slow tracking with eyes. lan of [facility] Tim Ashley RRT - 06/20/2018 4:03 AM PDTProblem: Patient Care Overview (Adult) Goal: Care Team Goals & Evaluation PROBLEM-RELATED GOALS: STRATEGY TO ACHIEVE GOALS: RESTRAINT-RELATED GOALS: STRATEGIES TO ACHIEVE RESTRAINT GOALS: Outcome: Unchanged Goal Evaluation: Edward oxygen saturation is SpO2: 96 % on % fiO2 non-invasive vent ilation (i.e. bi-level) 18/10 per home unit settings ,and a heart rate of 68. Breath sounds are diminished e . Pt's respirations are non labored . Electronically signed by: Bryant Chapman RRT 06/20/2018 4:03 lan of [facility] Ana Fink RN - 06/19/2018 9:41 PM PDTPt arrived to floor at 2030. Able to move mostly independently in bed. On 2L O2 n/c per pt request. RT notified of need to borrow CPAP. notified of arrival, questions answered. She won't be able to make it in to [facility] until later i n the week. Med rec needs to be done. said she'd look for his med list in the AM. Pt al so needs his HIV meds brought in from home, as we do not carry the correct medication.Electr onically signed by Ana Talley RN at 06/19/2018 9:57 PM PDTdocumented in this encounter Plan of Treatment Not [...] + +--------+ + + + | EXTRA MIROSLAVA CASTORENA | Routin | 06/22/2018 | | Results [...] + | [facility] | [address] | [place] | [phone] | | [facility] | | [id number] | | | - LABORATORY | | [...] + | [facility] | [address] | [place] | [phone] | | [facility] | | [id number] | | | - LABORATORY | | [...] | | [facility] | | | [facility] | | | [employer] | | [...] [address] | [place] | [phone] | | [facility] | | [id number] | | | - LABORATORY | | [...] 1.89 (H) | 0.60 - 1.30 | [facility] | | | | | mg/dL | [facility] | | | | | | MEDICAL | | | | | | CENTER - | | | | | | LABORATORY | | + + + + + + | eGFR if not | 36 (L)Comment: | >=60 | NEVIS | | | | GLOMERULAR FILTRATION | mL/min/1.73m2 | [facility] | | | [place] | RATE,ESTIMATED | | MEDICAL | | | | mL/min/1.53p7Zwbr than | | CENTER - | | [...] | 9.4 | 8.3 - 10.5 | NEVIS | | | | | mg/dL | [facility] | | | | | | [...] [address] | [place] | [phone] | | [facility] | | [id number] | | | - LABORATORY | | [...] | | | Oral Anticoagulation | | CAT | | | | Range: 2.0 [...] [address] | [place] | [phone] | | [facility] | | [id number] | | | - LABORATORY | | [...] | + + + + + | [facility] | [address] | [place] | [phone] | | [facility] | | [id number] | | | - LABORATORY | | [...] ST. | [address] | [place] | [phone] | | [facility] | | [id number] | | | - LABORATORY | | | | + + + + + CT Head wo Contrast (06/21/2018 1:17 PM PDT) + + | Specimen | + + | | + + + + + | Narrative | Performed At | + + + | TECHNIQUE: Noncontrast axial CT imaging was obtained through the | [facility] | | brain with coronal and [...] + | [facility] | [address] | [place] | [phone] | | [facility] | | [address] | | | - LABORATORY | | [...] [address] | [place] | [phone] | | [facility] | | [address] | | | - LABORATORY | | | | + + + + + CBC no Differential (06/21/2018 6:25 AM PDT) + + + + + + | Component | Value | Ref Range | Performed | Pathologist | | | | | At | Signature | + + + + + + | WBC | 9.8 | 4.0 - 11.0 K/uL | [facility] | | | | | | [facility] | | | | | | MEDICAL | | | | | | CENTER - | | | | | | LABORATORY | | + + + + + + | RBC | 5.69 | 4.30 - 5.70 | [facility] | | | | | M/uL | [facility] | | | | [...] [address] | [place] | [phone] | | [facility] | | [address] | | | - LABORATORY | | [...] 8 | 3 - 16 mmol/L | [facility] | | | | | [facility] | | | | | | MEDICAL | | | | | | CENTER - | | | | | | LABORATORY | | + + + + + + | Glucose | 147 (H) | 70 - 109 mg/dL | [facility] | | | | [...] 1.62 (H) | 0.60 - 1.30 | [facility] | | | | | mg/dL | [facility] | | | | | | MEDICAL | | | | | | CENTER - | | | | | | LABORATORY | | + + + + + + | eGFR if not | 43 (L)Comment: | >=60 | [facility] | | | | GLOMERULAR FILTRATION | mL/min/1.73m2 | [facility] | | | [place] | RATE,ESTIMATED | | MEDICAL | | | | mL/min/1.99d9Rzsg than | | CENTER - | | [...] [address] | [place] | [phone] | | [facility] | | [address] | | | - LABORATORY | | [...] | | | | | | [employer] | | | | | [...] [address] | [place] | [phone] | | [facility] | | [address] | | | - LABORATORY | | [...] [address] | [place] | [phone] | | [facility] | | [address] | | | - LABORATORY | | [...] + | [facility] | 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 CHAHAL | | Age 67 year(s) Interpreting WANDA HOFFMANN MD | | 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 | [place] | [phone] | | [facility] | | [address] | | | - LABORATORY | | [...] | | | | | | [employer] | | | | | [...] [address] | [place] | [phone] | | [facility] | | [address] | | | - LABORATORY | | [...] | | | POC | | | [facility] | | | | | | [...] [address] | [place] | [phone] | | [facility] | | [address] | | | - LABORATORY | | [...] | | | | NILAY HERNANDEZ MD ([id number]) | | | | | | on [...] | | | | | | [employer] | | | | | [...] + + | Performing | Address | City/State[facility] | Phone Number | | Organization | | | | + + + + + | [facility] | [address] | [place] | [phone] | | [facility] | | [address] | | | - LABORATORY | | [...] | | | es | | | [facility] | | [...] | 134 (H) | <=130 mg/dL | [facility] | | | Calculated | | | [facility] | | [...] [address] | [place] | [phone] | | [facility] | | [address] | | | - LABORATORY | | | | + + + + + Phosphorus (06/20/2018 3:05 AM PDT) + +-------+ + + + | Component | Value | Ref Range | Performed | Pathologist | | | | | At | Signature | + +-------+ + + + | Phosphorus | 3.7 | 2.5 - 4.6 mg/dL | [facility] | | | | [...] + | [facility] | [address] | [place] | [phone] | | [facility] | | [address] | | | - LABORATORY | | [...] | | Time | | seconds | [facility] | | | | | | MEDICAL | | | | | | CENTER - | | | | | | LABORATORY | | + + + + + + | INR | 1.4 (H)Comment: Usual | 0.9 - 1.1 | [facility] | | | | Oral Anticoagulation | | [facility] | | | | Range: 2.0 [...] + | [facility] | [address] | [place] | [phone] | | [facility] | | [address] | | | - LABORATORY | | | | + + + + + Magnesium (06/20/2018 3:05 AM PDT) + +---------+ + + + | Component | Value | Ref Range | Performed | Pathologist | | | | | At | Signature | + +---------+ + + + | Magnesium | 1.7 (L) | 1.8 - 2.5 mg/dL | [facility] | | | | [...] + | [facility] | [address] | [place] | [phone] | | [facility] | | [address] | | | - LABORATORY | | [...] | | | A1c | | | [facility] | | | | | | MEDICAL | | | | | | CENTER - | | | | | | LABORATORY | | + + + + + + | Estimated | 255 | mg/dL | [facility] | | | Average | | | [facility] | | | Glucose | | | [...] [address] | [place] | [phone] | | [facility] | | [address] | | | - LABORATORY | | | | + + + + + CBC with Differential (06/20/2018 3:05 AM PDT) + + + + + + | Component | Value | Ref Range | Performed | Pathologist | | | | | At | Signature | + + + + + + | WBC | 10.5 | 4.0 - 11.0 K/uL | [facility] [...] + | [facility] | [address] | [place] | [phone] | | [facility] | | [address] | | | - LABORATORY | | [...] | | | | | mmol/L | [facility] | | | | | | MEDICAL | | | | | | CENTER - | | | | | | LABORATORY | | + + + + + + | K | 4.3 | 3.5 - 5.1 | [facility] | | | | | mmol/L | [facility] | | | | [...] | | MEDICAL | | | | mL/min/1.87v5Dmfw than | | CENTER - | | [...] [address] | [place] | [phone] | | [facility] | | [address] | | | - LABORATORY | | [...] + | [facility] | [address] | [place] | [phone] | | [facility] | | [address] | | | - LABORATORY | | [...] | congestion. Dictated and Signed by: Chacho Yarbruogh MD | | | Electronically signed: 06/20/2018 [...] | | | | | | [employer] | | | | | [...] [address] | [place] | [phone] | | [facility] | | [address] | | | - LABORATORY | | [...] | | Time | | seconds | [facility] | | | | [...] + | [facility] | [address] | [place] | [phone] | | [facility] | | [address] | | | - LABORATORY | | [...] | | MEDICAL | | | | mL/min/1.46v8Shvh than | | CENTER - | | [...] + + + + + | [facility] | [address] | [place] | [phone] | | [facility] | | [address] | | | - LABORATORY | | [...] | | | Eosinophils | | | [facility] | | [...] | Neutrophils | | K/uL | [facility] | [...] | Monocytes | | K/uL | [facility] | [...] | Basophils | | K/uL | [facility] | | | | | | MEDICAL | | | | | | CENTER - | | | | | | LABORATORY | | + + + + + + | Absolute | 0.08 (H) | 0.00 - 0.03 | [facility] | | | Immature | | K/uL | [facility] | | | Granulocyte | | [...] | 0.00 | 0.00 - 0.01 | [facility] | | | nRBC | | K/uL | [facility] | | [...] [address] | [place] | [phone] | | [facility] | | [address] | | | - LABORATORY | | | | + + + + + documented in this encounter Visit Diagnoses + + | Diagnosis | + + | Ischemic cerebrovascular accident (CVA) (HCC) | + + | Stage 3 chronic kidney disease (HCC) | + + | IDDM (insulin dependent diabetes mellitus) Type II or unspecified type diabetes | | mellitus without mention of complication, not stated as uncontrolled | + + | HIV (human immunodeficiency virus infection) (HCC) Asymptomatic human | | immunodeficiency virus (HIV) [...] | 1 tablet | | | | anyajqqj-upknwaxmhdws-iljlNILvkq | | 18 10:57 | | | [...] | | | | | | | (dhzvfblk-zzyjqcrwycwc-rprzNMHksj | | | | | | | [...] 18 9:09 | | | | | Wed06/20/18 at 0900 | | AM PDT | | | | + +-------+ +-------+---+---+ +---+---+ | | | +---+---+ + +-------+ +-------+---+---+ | atorvaSTATin (LIPITOR) tablet | Given | 06/22/20 | 80 mg | | | | 80 mg 80 mg, Oral, DAILY, First | | 18 8:04 | | | | | dose on Wed06/20/18 at 0900 | | AM PDT | [...] g | | | 12.5 g, Intravenous, PRN Low | | | Blood Sugar, Starting 06/19/18 | | | at 2049 | | + +---+ | | | + +---+ + +-------+ +------+---+---+ | finasteride (PROSCAR) tablet 5 | Given | 06/22/20 | 5 mg | | | | mg 5 mg, Oral, DAILY, First dose | | 18 8:00 | | | | | on Wed06/20/18 at 1530, | | AM PDT | [...] | | | DAILY, First dose on Wed06/20/18 | | AM PDT | | | [...] | | | | | NPO, Daytime [id number] Use NIGHT | | | | | | | DOSE for doses scheduled: | | | | | | | HS, 3AM, Nighttime [id number], | | | | | | + [...] | | | | | modification) on Mon 18 at | | | | | | [...]
--- OUTSIDE RECORDS SUMMARY | ~2020-03-20 | XMS | Encounter Summary ---
Demographics + + + | Address | [address] | | | [place] [address] | + + + | Home Phone | | + + + | Preferred Language | Unknown | + + + | Marital Status | | + + + | Mosque Affiliation | 1038 | + + + | Race | Unknown | + + + | Ethnic Group | Unknown | + + + Author + + + | Author | [facility] | | | and [place] | + + + | Organization | [facility] | | | and [place] | + + + | Address | Unknown | + + + | Phone | Unavailable | + + + Support + + + + + | Name | Relationship | Address | Phone | + + + + + | Aileen Nelson | ECON | [address] [facility] | | | | | [place] | | | | | [address] | | + + + + + Care Team Providers + +------+ + | Care Procedures Analyst Name | Role | Phone | + [...] | | | | | | | Left hip FX | | | | | | | | | | +--------+--------+ + + + + Encounter Details +--------+ + + + + | Date | Type | Department | Care Team | Description | +--------+ + + + + | 10/12/ | Anesthesia | [facility] | Cordell Camp, | | | 2019 | [facility] | [facility] [address] | | | | | OPER[address] RO[address] | | | | | [address] | [place] [address] | | | | | [place], [place] | [phone] | | | | | [address] | | | | | | [phone] | Sergio Arias MD | | | | | | [address] | | | | | | [place] [address] | | | | | | [phone] | | | | | | | | +--------+ + + + + Anesthesia Record + + + + + | Procedure Name | Responsible | Anesthesia Start | Anesthesia Stop Time | | | Anesthesiologist | Time | | + + + + + | cephalomeduallry | Peyton Landa de | 10/12/19 1335 | 10/12/19 1500 | | nail left femur | ROBBIE Cummins | | | | fracture (Left Hip) | | | | + + + + + +----+---+ + + | Da | T | Event | Comment | | te | i | | | | | m | | | | | e | | | +----+---+ + + | 01 | 1 | | | | /2 | 3 | | | | 3/ | 2 | | | | 20 | 9 | | | | 20 | | | | +----+---+ + + | | 1 | An Start | Reassessment prior to anesthesia induction/procedure. | | | 3 | | | | | 3 | | | | | 5 | | | +----+---+ + + | | 1 | An | | | | 3 | Induction | | | | 4 | | | | | 3 | | | +----+---+ + + | | 1 | An | | | | 3 | Intubation | | | | 4 | | | | | 4 | | | +----+---+ + + | | 1 | Anesthesia | | | | 3 | Ready | | | | 5 | | | | | 0 | | | +----+---+ + + | | 1 | Antibiotic | | | | 3 | Given | | | | 5 | | | | | 2 | | | +----+---+ + + | | 1 | Pre-Procedu | Time out completed. Antibiotic infused. | | | 4 | ral Timeout | | | | 0 | Completed | | | | 4 | | | +----+---+ + + | | 1 | First | | | | 4 | Inc/Proc St | | | | 0 | | | | | 7 | | | +----+---+ + + | | 1 | Extubation/ | | | | 4 | Airway LDA | | | | 5 | Removal | | | | 4 | | | +----+---+ + + | | 1 | an stop | | | | 4 | data | | | | 5 | | | | | 6 | | | +----+---+ + + | | 1 | An Stop | Patient handed off to recovery nurse. | | | 0 | | | | | 0 | | | +----+---+ + + +------+ | Meds | +------+ + + + | Name | Total | + + + | fentaNYL | 100 mcg | + + + | lidocaine 2% | 100 mg | + + + | propofol | 200 mg | + + + | succinylcholine | 200 mg | + + + | dexamethasone | 8 mg | + + + | ondansetron | 8 mg | + + + | ePHEDrine | 15 mg | + + + | phenylephrine | 1,000 mcg | + + + | ceFAZolin | 3 g | + + + | etomidate | 20 mg | + + + | acetaminophen (OFIRMEV) IVPB | 1,000 mg | + + + | balanced electrolytes in water-pH | 400 mL | | 7.4 infusion | | + + + +---------+ | Name | +---------+ | Insp O2 | +---------+ | Exp N2O | +---------+ | Exp SEV | +---------+ + + | No blood administrations on file. | + + +--------+ + + + | Type | Details | Placement | Removal | +--------+ + + + | Pacema | 06/19/18; 2029 (Has had since | 06/19/182029 by | | | ker | 2000) | Ana Talley, RN | | +--------+ + + + | Wound | 10/10/19; 219; Y; Diabetic ulc; | 10/10/19219 by | | | | Bilateral; (both feet) | Nohemy Aguilar, | | | | | RN | | +--------+ + + + | Rash | 10/10/19; 220; Bilateral; | 10/10/19220 by | | | | anterior; other (see comments) | Nohemy Aguilar, | | | | (Panniculus); yeast-like rash | RN | | +--------+ + + + | Wound | 10/12/19; 1446; Incision; Left; | 10/12/19 1446 by | | | | hip | Avril Castle RN | | +--------+ + + + | Wound | 10/10/19; 0223; Y; Left; groin; | 10/10/19 0223 by | 10/12/19 1344 by | | | Unknown; 10/12/19; 1344 | Nohemy Aguilar, | Roxy Concepcion RN | | | | RN | | +--------+ + + + | Periph | 10/10/19; 1135; Left; Posterior | 10/10/19 1135 by | 10/18/19 1506 by | | eral | (dorsal); Forearm; | Lee St RN | Reshma Zaragoza, | | IV | gvjk-xua-fhdval catheter system; | | Utilization Review Nurse | | | 20 gauge; expected removal post | | | | | discharge; 10/18/19; 1506 | | | +--------+ + + + | Airway | Placement Date: 10/12/19; | 10/12/19 1344 by | 10/12/19 1456 by | | | Placement Time: 1344 (created via | Peyton patton | Peyton patton | | | procedure documentation); Mask | ROBBIE Cummins | ROBBIE Cummins | | | Ventilation: N/A; Airway Grade: | | | | | 1; Successful Technique: video | | | | | scope; Laryngoscope Blade Size: | | | | | 4; Attempts: 1; Airway Type: | | | | | endotracheal; Size: 8; Airway | | | | | Tube Secured At: 22; Trauma: | | | | | none; Other Equipment: stylette; | | | | | Placement Check: exhaled CO2 | | | | | detection device, bilateral chest | | | | | rise, breath sounds equal | | | | | bilaterally; Removal Date: | | | | | 10/12/19; Removal Time: 1456 | | | +--------+ + + + | Periph | 10/12/19; 1420 (created via | 10/12/19 1420 by | 10/15/19 0930 by | | eral | procedure documentation); Right; | Peyton patton | Antonina Yeboah RN | | IV | Proximal; Forearm; 18 gauge; site | ROBBIE Cummins | | | | symptomatic; short term use; | | | | | 10/15/19; 0930 | | | +--------+ + + + documented in this encounter Social History + +-------+ +--------+ + | [...] + + documented as of this encounter OR Notes Anesthesia Postprocedure Evaluation - Peyton Palma CRNA - 10/12/2019 3:04 PM PST ANESTHESIA POSTANESTHESIA EVALUATION Sarthak Singhdwell 68 y.o. male 1950 [id number] Procedure(s) cephalomeduallry nail left femur fracture (Left Hip) Cooperates? Yes Mental Status Performs simple tasks. Respiratory Satisfactory - Airway patent (self maintained). Cardiovascular Satisfactory - Blood pressure and heart rate acceptable Temperature Satisfactory Pain Satisfactory N/V Control Satisfactory Hydration Satisfactory - No signs of dehydration Adverse Events ADVERSE EVENTS: No adverse events Vitals Value Taken Time Temp 37.1 C (98.7 F) 10/12/2019 2:58 PM Pulse 108 10/12/2019 3:03 PM Resp 20 10/12/2019 3:03 PM BP 153/65 10/12/2019 3:00 PM Arterial Line BP Arterial Line BP 2 SpO2 99 % 10/12/2019 3:03 PM Vitals shown include unvalidated device data. Electronically signed by Peyton Camp CRNA 10/12/2019 3:[address] [facility] nesthesia Procedure Notes - Peyton Palma CRNA - 2019 2:20 PM PSTAssociated Order(s): PIV Intravenous Line Placement 10/12/2019 2:20 PM Indication: routine Preparation: chlorhexidine/isopropyl alcohol patient was: under GA Side: right Orientation: proximal Vein location: forearm Size: 18 g Localization technique: landmark Securement: transparent dressing Placed by: Peyton Camp CRNA Authorizing provider: Peyton Camp CRNA Please see intraoperative grid for any additional medication documentation. nesthesia Procedure Notes - Peyton Palma CRNA - 10/12/2019 2:02 PM PSTAssociated Order( s): AirwayAnesthesia Airway Placement 10/12/2019 1:44 PM Preprocedure check: patient identified, oxygen, airway equipment checked, patient reassessm ent prior to induction, airway assessed and suction Rapid Sequence Induction: modified Mask ventilation: N/A Successful technique: videoscope Laryngoscope blade size: 4 Airway grade: 1 (Full view of glottis) Other equipment: stylette Attempts: 1 Airway type: endotracheal Size: 8 Cuffed: cuffed Route, reference point: right side of mouth Tube depth: 22 cm Tube secured with: adhesive tape Trauma: none Tube placement verification: bilateral chest rise, carbon dioxide detection and equal bilat eral breath sounds Performing provider: Peyton Camp CRNA Authorizing provider: Peyton Camp CRNA Please see intraoperative grid for any additional medication documentation. nesthesia Preprocedure Evaluation - Peyton Palma CRNA - 10/12/2019 10:01 AM PSTFormattin g of this note might be different from the original. ANESTHESIA PREANESTHESIA EVALUATION Zoahibkalyani Morales Omar 68 y.o. male 1950 [id number] Procedure(s): cephalomeduallry nail left femur fracture (Left Hip) Medical,anesthesia, drug, allergy histories reviewed, NPO status verified. ECG reviewed. Labs reviewed. (-) perioperative beta-ladonna/statin not given/taken, reason : last dose within 24 hours. Review of Systems / Med History Anesthesia History No anesthesia complications except where noted below. Family Anesthesia History Family Anesthesia Negative except where noted below. Cardiovascular EKG on 10/11 Atrial fibrillation with v-rate of [address] and T wave abnormality Abnormal ECG When compared with ECG of 10-OCT-2019 05:04, Ventricular rate has decreased by 20 bpm. ECHO on 01/23/2019 1. Overall left ventricular systolic function is normal with an EF between 55 - 60%. 2. There is moderate concentric left ventricular hypertrophy. 3. The right ventricle is normal in size and function. 4. The left atrium is markedly enlarged. 5. The right atrium is markedly enlarged.. 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 (+) Dysrhythmias (On Metoprolol and Eliquis): (+) permanent atrial fibrillation, . Pulmonary A chest Xray on 2017 showed Apparent pacemaker lead over left chest that is partially imaged. Cardiomegaly with pulmonary congestion..(+) obstructive sleep apnea.(+) Sleep apnea history /interventions: CPAP.(+) tobacco use.(+) ex-smoker: 1983. Gastrointestinal/Hepatic Negative except where noted below. Renal BUN/Cr/GFR: 34/1.7/40 today. (+) chronic renal insufficiency. Endocrine (+) obesity: morbid BMI 40+ (+) Diabetes: type 2, using insulin, uncontrolled (Hgb A1C >= 6.5), with complications. Pr eop 126: Hematology/Other (+) HIV. Cancer Negative except where noted below. Neuromuscular (+) numbness/tingling, CVA (Left sided weakness), neuropathy. Additional Comments: Problem List Current as of 10/12/19 1001 Ischemic cerebrovascular accident IDDM (insulin dependent diabetes mellitus) HTN (hypertension) CKD (chronic kidney disease) HIV (human immunodeficiency virus infection) Acute left hemiparesis Dysphagia due to recent cerebral infarction Neurogenic bladder Morbid obesity Diabetic peripheral neuropathy RACHELLE treated with BiPAP Mild cognitive impairment Atrial fibrillation Chronic anticoagulation Hip fracture Closed fracture of left hip, initial encounter Physical Exam Airway MP IV, TM >3 FB, Mouth opening >2 FB. Neck: limited ROM, extends <30 degrees. Jaw prot rusion normal. Dental (+) poor dentition. CV Rhythm irregular. Rate normal. Pulm (+) decreased breath sounds. Anesthesia Plan ASA: 4 Type: General. Plan is GETA Labs WDP except as otherwise noted. NPO>8hrs. Induction: Intravenous. Potential problems: None anticipated. Monitors: Standard ASA monitors. Postop Pain Management: Consent statement: Anesthetic plan, alternatives, risks and benefits discussed with patient. backache, , discussed risks to teeth, disability, drug reaction, heart problems, ICU placement, muscle a ches, nausea, pain, perioperative CV events, post-op intubation, respiratory events, sore th roat, stroke, voice injury Blood transfusion concerns: None. Consenting person understands and agrees to proceed. Electronically Signed by: Peyton Camp CRNA ESig date/time: 10/12/2019 10:01 A M documented in this encounter Miscellaneous Notes Anesthesia Post-op Handoff - Peyton Palma CRNA - 10/12/2019 3:00 PM PSTFormat ting of this note might be different from the original. ANESTHESIA HANDOFF NOTE Sarthak Nelson 68 y.o. male 1950 [id number] cephalomeduallry nail left femur fracture (Left Hip) HANDOFF NOTE Handoff Protocol Used: post-procedure handoff checklist completed The following were completed during the transfer of care: 1. Identification of patient 2. Identification of responsible practitioner (primary service) 3. Discussion of pertinent medical history 4. Discussion of the surgical/procedure course (procedure, reason for surgery, procedure pe rformed) 5. Intraoperative anesthetic management and issues/concerns 6. Expectations/plans for the early post-procedure period 7. Opportunity for questions and acknowledgement of understanding of report from receiving team Patient Location: Phase I Condition: awake and lethargic Airway/O2: face mask with O2 Two or more RACHELLE mitigation strategies used: perioperative obstructive sleep apnea intervent ions applied The significant anesthesia concerns and VS in Epic were reviewed with the receiving team. Peyton Camp CRNA 10/12/2019 3:[address] [facility] documented in this encounter Plan of Treatment Not on filedocumented as of this encounter Procedures + +--------+ + + + | Procedure Name | Priori | Date/Time | Associated Diagnosis | Comments | | | ty | | | | + +--------+ + + + | ANE PERIPHERAL IV | Routin | 10/12/2019 | | Results for this | | LINE NOTE | e | 2:20 PM | | procedure are in the | | | | PST | | results section. | + +--------+ + + + | ANE AIRWAY NOTE | Routin | 10/12/2019 | | Results for this | | | e | 2:02 PM | | procedure are in the | | | | PST | | results section. | + +--------+ + + + documented in this encounter Results PIV (10/12/2019 2:20 PM PST) + + + | Narrative | Performed At | + + + | Peyton Camp CRNA 10/12/2019 2:21 PM | | | Intravenous Line Placement 10/12/2019 2:20 PM Indication: routine | | | Preparation: chlorhexidine/isopropyl alcohol patient was: under GA | | | Side: right Orientation: proximal Vein location: forearm Size: 18 g | | | Localization technique: landmark Securement: transparent dressing | | | Placed by: Peyton Camp CRNA Authorizing provider: | | | Peyton Camp CRNA Please see intraoperative grid | | | for any additional medication documentation. | | + + + Airway (10/12/2019 2:02 PM PST) + + + | Narrative | Performed At | + + + | Peyton Camp CRNA 10/12/2019 2:03 PM Anesthesia | | | Airway Placement 10/12/2019 1:44 PM Preprocedure check: patient | | | identified, oxygen, airway equipment checked, patient reassessment | | | prior to induction, airway assessed and suction Rapid Sequence | | | Induction: modified Mask ventilation: N/A Successful technique: | | | videoscope Laryngoscope blade size: 4 Airway grade: 1 (Full view | | | of glottis) Other equipment: stylette Attempts: 1 Airway type: | | | endotracheal Size: 8 Cuffed: cuffed Route, reference point: right | | | side of mouth Tube depth: 22 cm Tube secured with: adhesive tape | | | Trauma: none Tube placement verification: bilateral chest rise, | | | carbon dioxide detection and equal bilateral breath sounds | | | Performing provider: Peyton Camp CRNA Authorizing | | | provider: Peyton Camp CRNA Please see | | | intraoperative grid for any additional medication documentation. | | + + + documented in this encounter Visit Diagnoses Not on filedocumented in this encounter Administered Medications + +--------+ + +------+------+ | Medication Order | MAR | Action | Dose | Rate | Site | | | Action | Date | | | | + +--------+ + +------+------+ | acetaminophen (OFIRMEV) IVPB | Given | 10/12/19 | 1,000 mg | | | | Administer over 15 Minutes, PRN, | | 20 2:48 | | | | | Starting Lay 10/12/19 at 1448, | | PM PST | | | | | Anesthesia Intra-op | | | | | | + +--------+ + +------+------+ +---+---+ | | | +---+---+ + +---------+ +---+---+---+ | balanced electrolytes in water | New Bag | 10/12/19 | | | | | - pH 7.4 (NORMOSOL-R pH | | 20 1:35 | | | | | 7.4/PLASMALYTE-A) infusion | | PM PST | | | | | Intravenous, CONTINUOUS PRN, | | | | | | | Starting Lay 10/12/19 at 1335, | | | | | | | Anesthesia Intra-op | | | | | | + +---------+ +---+---+---+ +---+---+ | | | +---+---+ + +-------+ +-----+---+---+ | ceFAZolin (ANCEF, KEFZOL) | Given | 10/12/19 | 3 g | | | | injection Intravenous, PRN, | | 20 1:52 | | | | | Starting Lay 10/12/19 at 1352, | | PM PST | | | | | Anesthesia Intra-op | | | | | | + +-------+ +-----+---+---+ +---+---+ | | | +---+---+ + +-------+ +------+---+---+ | dexamethasone (DECADRON) 4 | Given | 10/12/19 | 8 mg | | | | mg/mL injection Intravenous, | | 20 1:43 | | | | | PRN, Starting Lay 10/12/19 at | | PM PST | | | | | 1343, Anesthesia Intra-op | | | | | | + +-------+ +------+---+---+ +---+---+ | | | +---+---+ + +-------+ +------+---+---+ | ePHEDrine in saline 5 mg/mL IV | Given | 10/12/19 | 5 mg | | | | syringe Intravenous, PRN, | | 20 1:50 | | | | | Starting Lay 10/12/19 at 1346, | | PM PST | | | | | Anesthesia Intra-op | | | | | | + +-------+ +------+---+---+ +-------+ +------+---+---+ | Given | 10/12/19 | 5 mg | | | | | 20 1:48 | | | | | | PM PST | | | | +-------+ +------+---+---+ | Given | 10/12/19 | 5 mg | | | | | 20 1:46 | | | | | | PM PST | | | | +-------+ +------+---+---+ +---+---+ | | | +---+---+ + +-------+ +-------+---+---+ | etomidate (AMIDATE) injection | Given | 10/12/19 | 20 mg | | | | Intravenous, PRN, Starting Lay | | 20 1:43 | | | | | 10/12/19 at 1343, Anesthesia | | PM PST | | | | | Intra-op | | | | | | + +-------+ +-------+---+---+ +---+---+ | | | +---+---+ + +-------+ +--------+---+---+ | fentaNYL (PF) injection | Given | 10/12/19 | 25 mcg | | | | Intravenous, PRN, Starting Lay | | 20 2:12 | | | | | 10/12/19 at 1343, Anesthesia | | PM PST | | | | | Intra-op | | | | | | + +-------+ +--------+---+---+ +-------+ +--------+---+---+ | Given | 10/12/19 | 25 mcg | | | | | 20 2:10 | | | | | | PM PST | | | | +-------+ +--------+---+---+ | Given | 10/12/19 | 50 mcg | | | | | 20 1:43 | | | | | | PM PST | | | | +-------+ +--------+---+---+ +---+---+ | | | +---+---+ + +-------+ +--------+---+---+ | lidocaine (PF) 2% injection | Given | 10/12/19 | 100 mg | | | | Intravenous, PRN, Starting Lay | | 20 1:43 | | | | | 10/12/19 at 1343, Anesthesia | | PM PST | | | | | Intra-op | | | | | | + +-------+ +--------+---+---+ +---+---+ | | | +---+---+ + +-------+ +------+---+---+ | ondansetron (ZOFRAN) injection | Given | 10/12/19 | 4 mg | | | | Intravenous, PRN, Starting Lay | | 20 2:49 | | | | | 10/12/19 at 1410, Anesthesia | | PM PST | | | | | Intra-op | | | | | | + +-------+ +------+---+---+ +-------+ +------+---+---+ | Given | 10/12/19 | 4 mg | | | | | 20 2:10 | | | | | | PM PST | | | | +-------+ +------+---+---+ +---+---+ | | | +---+---+ + +-------+ +---------+---+---+ | phenylephrine (GAUTAM-SYNEPHRINE, | Given | 10/12/19 | 100 mcg | | | | VAZCULEP) 10 mg per mL injection | | 20 2:31 | | | | | Intravenous, PRN, Starting Lay | | PM PST | | | | | 10/12/19 at 1346, Anesthesia | | | | | | | Intra-op | | | | | | + +-------+ +---------+---+---+ +-------+ +---------+---+---+ | Given | 10/12/19 | 100 mcg | | | | | 20 2:28 | | | | | | PM PST | | | | +-------+ +---------+---+---+ | Given | 01/23/20 | 200 mcg | | | | | 20 2:07 | | | | | | PM PST | | | | +-------+ +---------+---+---+ +---+---+ | | | +---+---+ + +-------+ +--------+---+---+ | propofol (DIPRIVAN) injection | Given | 10/12/19 | 200 mg | | | | Intravenous, PRN, Starting Lay | | 20 1:43 | | | | | 10/12/19 at 1343, Anesthesia | | PM PST | | | | | Intra-op | | | | | | + +-------+ +--------+---+---+ +---+---+ | | | +---+---+ + +-------+ +--------+---+---+ | succinylcholine (ANECTINE) | Given | 10/12/19 | 200 mg | | | | injection Intravenous, PRN, | | 20 1:43 | | | | | Starting Lay 10/12/19 at 1343, | | PM PST | | | | | Anesthesia Intra-op | | | | | | + +-------+ +--------+---+---+ +---+---+ | | | +---+---+ documented in this encounter"
--- OUTSIDE RECORDS SUMMARY | ~2020-03-20 | XMS | Encounter Summary ---
Demographics + + + | Address | [address] [place] [address] | | | [place] [address] | + + + | Home Phone | | + + + | Preferred Language | Unknown | + + + | Marital Status | Single | + + + | Yazidism Affiliation | PEN | + + + | Race | White | + + + | Ethnic Group | Not or | + + + Author + + + | Author | [facility] | + + + | Organization | [facility] | + + + | Address | Unknown | + + + | Phone | Unavailable | + + + Support + + + + + | Name | Relationship | Address | Phone | + + + + + | Aileen Nelson | ECON | [address] | | | | | [place] [address] | | + + + + + Care Team Providers + +------+ + | Care Waste Specialist Name | Role | Phone | + +------+ + PCP | Unavailable | + +------+ + Encounter Details +--------+ + + + + | Date | Type | Department | Care Team | Description | +--------+ + + + + | 10/13/ | Results | Registration [id number] | [facility] | | | 2009 | Only | NAOMI Adler | [phone] | | | | | Rd Mailcode: [id number] | | | | | | [place], [place] | | | | | | [address] | | | | | | [phone] | | | +--------+ + + + [...] | | + +---------+ + + | [facility] DEPARTMENT OF | | | | | RADIOLOGY | | | | + +---------+ + + documented in this encounter Visit Diagnoses Not on filedocumented in this encounter"
--- OUTSIDE RECORDS SUMMARY | ~2020-03-20 | XMS | Encounter Summary ---
Demographics + + + | Address | [address] [place] [address] | | | [place] [address] | + + + | Home Phone [...] Author + + + | Author | [facility] | + + + | Organization | [facility] | + + + | Address | Unknown | + + + | Phone | Unavailable | + + + Support + + + + + | Name | Relationship | Address | Phone | + + + + + | Aileen Nelson | ECON | [address] | | | | | [place] [address] | | + + + + + Care Team Providers + +------+ + | Care Cupola Patcher Name | Role | Phone | + [...] | | | | | [place] [address] | | | | | | [phone] | | | | | | | [...] POINT | | | GLUCOSE, | ID: [id number]: | | OF CARE | | | POC | [id number] Rowena Williamson | | TESTING | | | |Program Director Substance Abuse: [id number] Rowena Williamson | | | | | [...] [place] | | | GLUCOSE, | [id number]: | | OF CARE | | | POC | [id number] Rowena Williamson | | TESTING | | | |Program Director Substance Abuse: [id number] Rowena Williamson | | | | | [...]
--- OUTSIDE RECORDS SUMMARY | ~2020-03-20 | XMS | Encounter Summary ---
Demographics + + + | Address | [address] [place] [address] | | | [place] [address] | + + + | Home Phone | | + + + | Preferred Language | Unknown | + + + | Marital Status | Single | + + + | Orthodoxy Affiliation | PEN | + + + | Race | White | + + + | Ethnic Group | Not or | + + + Author + + + | Author | [facility] | + + + | Organization | [facility] | + + + | Address | Unknown | + + + | Phone | Unavailable | + + + Support + + + + + | Name | Relationship | Address | Phone | + + + + + | Aileen Nelson | ECON | [address] | | | | | [place] [address] | | + + + + + Care Team Providers + +------+ + | Care Zookeeper Name | Role | Phone | + [...] | | | | | [place] [address] | | | | | | [phone] | | | | | | | [...] POINT | | | GLUCOSE, | ID: [id number]: | | OF CARE | | | POC | [id number] Rowena Williamson | | TESTING | | | |Tentmaker: [id number] Rowena Williamson | | | | | [...] [place] | | | GLUCOSE, | [id number]: | | OF CARE | | | POC | [id number] Rowena Williamson | | TESTING | | | |Tentmaker: [id number] Rowena Williamson | | | | | [...]
--- OUTSIDE RECORDS SUMMARY | ~2020-03-20 | XMS | Encounter Summary ---
Demographics + + + | Address | [address] [place] [address] | | | [place] [address] | + + + | Home Phone | | + + + | Preferred Language | Unknown | + + + | Marital Status | Single | + + + | Jehovah'S Witness Affiliation | PEN | + + + [...] | | | | | [place] [address] | | + + + + + Care Team Providers + +------+ + | Care Pipe Organ Installer Name | Role | Phone | + +------+ + PCP | Unavailable | + +------+ + Encounter Details +--------+ + + + + | Date | Type | Department | Care Team | Description | +--------+ + + + + | 01/19/ | Hospital | Dermatopathology | | | | 2011 | Encounter | [address] | | | | | | Mailcode: CH16D | | | | | | [facility] | | | | | | and Healing, | | | | | | Building [address], | | | | | | Floor [place], [place] | | | | | | [address] | | | | | | [phone] | | | +--------+ + + + [...] | + +--------+ + + + | HEMATOPATHOLOGY | Routin | 02/15/2012 | | Results for this | | | e | | | procedure are in the | | | | | | results section. | + +--------+ + + + | IMMUNOFLUORESCENCE | Routin | 01/20/2012 | | Results for this | | STUDY | e | | | procedure are in the | | | | | | results section. | + +--------+ + + + documented in this encounter Results HEMATOPATHOLOGY (02/15/2012) + + + + + + | Component | Value | Ref Range | Performed | Pathologist | | | | | At | Signature | + + + + + + | HEMATOPATHO | SOURCE OF SPECIMEN:A | | [facility] | | | LOGY | Peripheral Blood, 3 x 3 | | DEPARTMENT | | | | ml Heparin | | OF | | | | Clinical History:The | | PATHOLOGY | | | | patient is a 61-year-old | | | | | | male with a history of | | | | | | possible MGUS, | | | | | | anemia,and | | | | | | thrombocytopenia. | | | | | | Final Pathologic | | | | | | Diagnosis:Peripheral | | | | | | blood, flow cytometric | | | | | | analysis ([facility], | | | | | | [id number],02/16/12): | | | | | | - T cells with | | | | | | decreased CD4:CD8 ratio | | | | | | (0.1:1), and no | | | | | | aberrantantigen | | | | | | expression - No | | | | | | monoclonal B cell | | | | | | population identified | | | | | | - No blast | | | | | | population identified | | | | | | - See Comment | | | | | | Comment: The decreased | | | | | | CD4:CD8 ratio is a | | | | | | non-specific finding and | | | | | | can beseen in reactive | | | | | | conditions such as viral | | | | | | infection and | | | | | | clinicalcorrelation is | | | | | | recommended. The | | | | | | etiology of the | | | | | | cytopenias is not | | | | | | evidentby flow cytometry | | | | | | and follow-up with a | | | | | | complete bone marrow | | | | | | evaluation maybe | | | | | | necessary for a | | | | | | definitive diagnosis. | | | | | | This case has also been | | | | | | seen byDr. Brad Golden who | | | | | | agrees. Case seen | | | | | | by:Rain Balbuena, | | | | | | M.D./Surgical Pathology | | | | | | J Luis Baires, | | | | | | M.D./HematopathologistT: | | | | | | 02/18/12/ Gross | | | | | | Description:Peripheral | | | | | | blood was received for | | | | | | evaluation. The | | | | | | specimen was lysed and | | | | | | acell suspension | | | | | | prepared for flow | | | | | | cytometric analysis. A | | | | | | | | | | | | Escamilla-stainedperipheral | | | | | | blood smear and a | | | | | | cytospin of the cell | | | | | | suspension were | | | | | | preparedfor morphologic | | | | | | correlation with the | | | | | | flow cytometry results. | | | | | | Microscopic | | | | | | Description:Peripheral | | | | | | Blood Smear: The | | | | | | cytospin preparation | | | | | | reveals a mixed | | | | | | populationof | | | | | | granulocytes, monocytes | | | | | | and lymphocytes. | | | | | | Occasional | | | | | | plasmacytoidlymphocytes | | | | | | and nucleated red cell | | | | | | precursors are seen. | | | | | | Occasional | | | | | | myeloidprecursors are | | | | | | also seen. A peripheral | | | | | | smear shows a similar | | | | | | cellularcomposition; | | | | | | rare nucleated red cell | | | | | | precursors are | | | | | | identified. | | | | | | Immunologic Analysis:The | | | | | | analysis was performed | | | | | | by flow cytometry on the | | | | | | peripheral | | | | | | bloodspecimen. No CD34 | | | | | | or CD117 positive blast | | | | | | population is | | | | | | identified. | | | | | | Noimmunophenotypically | | | | | | aberrant myeloid | | | | | | population is evident. | | | | | | The analysisshows | | | | | | lymphocytes represent | | | | | | approximately 44% of | | | | | | cells and are composed | | | | | | ofabout 87% T cells, 6% | | | | | | NK cells and rare B | | | | | | cells. No monoclonal B | | | | | | cellpopulation is | | | | | | identified. T cells are | | | | | | present in a CD4:CD8 | | | | | | ratio ofapproximately | | | | | | 0.07:1 and do not | | | | | | demonstrate aberrant | | | | | | antigen expression.CD4 | | | | | | positive T cells | | | | | | represent about 10% of | | | | | | lymphocytes and CD8 | | | | | | positive Tcells | | | | | | represent about 70% of | | | | | | lymphocytes. Please see | | | | | | below for | | | | | | antibodiestested. | | | | | | Antibodies Tested | | | | | | CD2 sCD3 CD4 CD5 | | | | | | CD7 CD8 CD10 | | | | | | [id number] CD14 CD15 CD16 | | | | | | CD19 CD20 CD25 [id number] | | | | | | CD38 CD45 CD56 CD58 | | | | | | CD64 CD71 [id number] | | | | | | sKappa sLambda | | | | | | HLA-DR CD57 CD94 | | | | | | [id number] | | | | | | [id number] | | | | | | [id number] (Analyte | | | | | | specific reagents are | | | | | | used in many laboratory | | | | | | tests necessary | | | | | | [facility] | | | | | | and generally do not | | | | | | require FDA approval. | | | | | | This testwas developed | | | | | | and its performance | | | | | | characteristics | | | | | | determined by | | | | | | [facility]. It | | | | | | has not been cleared or | | | | | | approved by the US Food | | | | | | and DrugAdministration.) | | | | | | Laboratory | | | | | | Data:[facility] | | | | | | [place], [place] | | | | | | CBC DATE | | | | | | 02/16/12 WBC | | | | | | DIFFERENTIAL % | | | | | | AbsWBC x 10(3) | | | | | | 5.2 PMNs | | | | | | 45.3 2.3RBC x | | | | | | 10(6) 3.49 Bands | | | | | | -Hb g/dl | | | | | | 10.7 Lymphs | | | | | | 34.7 1.8Hct % | | | | | | 31.7 | | | | | | Monos 10.9 | | | | | | 0.6MCV | | | | | | 90.8 Eos | | | | | | 8.6 0.4MCH 30.7 | | | | | | Basos 0.5 | | | | | | 0.0MCHC | | | | | | 33.8RDW | | | | | | 16.6Plt x 10(3) | | | | | | 110 My | | | | | | electronic signature | | | | | [...] Diagnostician: | | | | | | Ira Baires | | | | | | MFrankyHematopathologistEle | | | | | | ctronically Signed | | | | | | 02/23/2012 6:40PM | | | | + + + + + + + + | Specimen | + + | | + + + + + + + | Performing | Address | City/State/Zipcode | Phone Number | | Organization | | | | + + + + + | [facility] | [address] | [place] [address] | | | PATHOLOGY | [address] | | | + + + + + IMMUNOFLUORESCENCE STUDY (01/20/2012) + + + + + + | [...] INFORMATION:On | | | | | | January 20, 2012, a 4mm | | | | | | punch biopsy was taken | | | | | | from perilesional skin | | | | | | of [facility] for | | | | | | direct | | | | | | immunofluorescence | | | | | | studies from a patient | | | | | | with a4-wk. history of a | | | | | | pruritic erythematous | | | | | | papules on his trunk | | | | | | andextremities to rule | | | | | | out dermatitis | | | | | | herpetiformis vs | | | | | | pemphigus. TISSUE | | | | | | PROCESSING:On January 20, | | | | | | 2011, a 4 x 4mm sullivan | | | | | | [...] is | | | | | | moderately intense | | | | | | granular to homogeneous | | | | | | deposition of IgM | | | | | | alongthe connective | | | | | | tissue fibers of the | | | | | | papillary and upper | | | | | | reticular dermis.There | | | | | | is no granular | | | | | | deposition of IgA noted | | | | | | in dermal papillary tips | | | | | | or atthe basement | | | | | | membrane zone. There | | | | | | is no specific | | | | | | deposition of IgG, | | | | | | IgA,C3 or fibrinogen | | | | | | identified in these | | | | | | sections. | | | | | | COMMENTS/DIAGNOSIS:There | | | | | | are no diagnostic | | | | | | immunopathologic changes | | | | | | identified in | | | | | | thesesections. The | | | | | | deposition of IgM is not | | | | | | a characteristic | | | | | | feature ofimmunobullous | | | | | | diseases and may reflect | | | | | | actinic damage. | | | | | | Correlation | | | | | | withroutine histology | | | | | | would be of value in | | | | | | arriving at final | | | | | | diagnosis. Thereare no | | | | | | findings to support a | | | | | | diagnosis of dermatitis | | | | | | herpetiformis in | | | | | | thesesections. | | | | | | Testing was performed | | | | | | with an appropriate | | | | | | positive and negative | | | | | | control foreach | | | | | | immunoreactant. | | | | | | LHM:jyi01/27/12 My | | | | | | electronic signature | | | | | [...] Vasquez | | | | | | IainPathologistZoëi | | | | | | bob Signed 02/04/2012 | | | | | | 1:09PM | | | | + + + + + + + + | Specimen | + + | | + + + + + + + | Performing | Address | City/State/Zipcode | Phone Number | | Organization | | | | + + + + + | [facility] | [address] | [place] [address] | | | DERMATOPATHOLOGY | [address] | | | + + + + + documented in this encounter Visit Diagnoses Not on filedocumented in this encounter"
--- OUTSIDE RECORDS SUMMARY | ~2020-03-20 | XMS | Encounter Summary ---
Demographics + + + | Address | [address] | | | [place] [address] | + + + | Home Phone | | + + + | Preferred Language | Unknown | + + + | Marital Status | | + + + | Mandaen Affiliation | 1038 | + + + | Race | Unknown | + + + | Ethnic Group | Unknown | + + + Author + + + | Author | [facility] | | | and [place] | + + + | Organization | [facility] | | | [...] [place] | | | | | [address] | | + + + + + Care Team Providers + +------+ + | Care Billing Administrator Name | Role | Phone | + +------+ + | Jericho Cao MD | PCP | | + +------+ + Reason for Visit +--------+--------+ + | Reason | Onset | Comments | | | Date | | +--------+--------+ + | Other | 11/09/ | resched | | | 2020 | | +--------+--------+ + Encounter Details +--------+ + + + + | Date | Type | Department | Care Team | Description | +--------+ + + + + | 11/09/ | Telephone | [facility] | Hui Parsons, | Other (resched) | | 2020 | | [address] | [address] | | | | | [place], [place] | [place] [address] | | | | | [address] | [phone] | | | | | [phone] | | | +--------+ + + + [...] + + documented as of this encounter Miscellaneous Notes Telephone Encounter - OsvaldoCarmelita qureshi Viv - 11/09/2019 9:20 AM PSTCalled and LVM with Tiburcio hancock in regards to howard appointment. Left call back number. If Elizabeth call back pt can be res cheduled to November 22 at 10:50am. SINTIA prieto from [facility] called stating they do not have transportation for pat ient on 11/14 and needs to resched; please give [facility] a call as this patient is a [facility] patient Thank You 10: 12 AM PSTdocumented in this encounter Plan of Treatment Not on filedocumented as of this encounter Visit Diagnoses Not on filedocumented in this encounter"
--- OUTSIDE RECORDS SUMMARY | ~2020-03-20 | XMS | Encounter Summary ---
Demographics + + + | Address | [address] [place] [address] | | | [place] [address] | + + + | Home Phone | | + + + | Preferred Language | Unknown | + + + | Marital Status | Single | + + + | Buddhist Affiliation | PEN | + + + | Race | White | + + + | Ethnic Group | Not or | + + + Author + + + | Author | [facility] | + + + | Organization | [facility] | + + + | Address | Unknown | + + + | Phone | Unavailable | + + + Support + + + + + | Name | Relationship | Address | Phone | + + + + + | Aileen Nelson | ECON | [address] | | | | | [place] [address] | | + + + + + Care Team Providers + +------+ + | Care Caterers Helper Name | Role | Phone | + +------+ + PCP | Unavailable | + +------+ + Encounter Details +--------+ + + + + | Date | Type | Department | Care Team | Description | +--------+ + + + + | 05/07/ | Results | [facility] | [facility] | | | 2014 | Only | Department | [address] | | | | | | [address] [place] | | | | | | [place] [address] | | | | | | [phone] | | | | | | | [...] POINT | | | GLUCOSE, | ID: [id number]: | | OF CARE | | | POC | [id number] Francoise LaRchanda | | TESTING | | | |Java Groovy Developer: [id number] Brasrey LaRchanda | | | | | [...] POINT | | | GLUCOSE, | ID: [id number]: | | OF CARE | | | POC | [id number] Hochmayr | | TESTING | | | [...] POINT | | | GLUCOSE, | ID: [id number]: | | OF CARE | | | POC | [id number] Hochmayr | | TESTING | | | [...]
--- OUTSIDE RECORDS SUMMARY | ~2020-03-20 | XMS | Encounter Summary ---
Demographics + + + | Address | [address] [place] [address] | | | [place] [address] | + + + | Home Phone [...] + + + | Author | [facility] | + + + | Organization | [facility] | + + + | Address | Unknown | + + + | Phone | Unavailable | + + + Support + + + + + | Name | Relationship | Address | Phone | + + + + + | Aileen Aranda | ECON | [address] | | | | | [place] [address] | | + + + + + Care Team Providers + +------+ + | Care Pocket Operator Name | Role | Phone | [...] | | Results for this | | [id number] | e | 3:22 PM | | [...] POINT | | | GLUCOSE, | ID: [id number]: | | OF CARE | | | POC | [id number] John Goyal | | TESTING | | | |Senior Technical Project Manager: [id number] John Goyal | | | | | [...] POINT | | | GLUCOSE, | ID: [id number]: | | OF CARE | | | POC | [id number] Adam Guille | | TESTING | | | |Senior Technical Project Manager: [id number] Adam Guille | | | | | [...] | + +---------+ + + SCROTAL ULTRASOUND [id number] (05/04/2015 3:22 PM PDT) + + | Specimen | + + | | + + + + + | Narrative | Performed At | + + + | Name: | [facility] | | [facility] | DEPARTMENT OF | | Phys: Sonu Welch MD | RADIOLOGY | | | | | : 1950 Age: 64 Sex: M | | | Acct: [id number] Loc: 426 2 | | | | | | Exam Date: 05/03/2015 Status: ADM IN | | | Radiology No: | | | Unit No: | | | [id number] EXAM# TYPE/EXAM | | | RESULT | | | [id number] US/SCROTAL ULTRASOUND 51910 | | | TESTICULAR ULTRASOUND | | [...] | Sex: M | | | Acct: [id number] Loc: 426 2 | | | Exam Date: 05/03/2015 | | | Status: ADM IN | | | Radiology No: | | | Unit No: [id number] | | | EXAM# TYPE/EXAM RESULT | | | [id number] US/SCROTAL | | | ULTRASOUND 11219 | | | Findings reviewed with Dr. Estes May 04, | | | 2014. [id number] | | | REPORT ELECTRONICALLY SIGNED 05/05/2015 (8840) | | | Reported By: Neetu HERNÁNDEZ MD | | | Signed By: Scooter Hernández M.D. | | | | | | Technologist: LISA DICKERSON | | | Electronically signed by: Neetu BUCK | | | SAGAR BARAHONA CC: Romain Harrington MD | | | | | | | | | Transcribed Date/Time: | | | 05/04/2015 (380) Concierge Manager: MQ.RSW PAGE | | | 2 Signed Report | | | | | + + + + + | Procedure Note | + + | Interface, Radiology Results - 06/03/2015 10:36 AM PDT | | Name: [facility] | | Phys: Sonu Welch MD : | | 1950 Age: 64 Sex: M Acct: [id number] | | Loc: 426 2 Exam Date: 05/03/2015 | | Status: ADM IN Radiology No: | | Unit No: [id number] EXAM# TYPE/EXAM | | RESULT [id number] US/SCROTAL ULTRASOUND | | 76818 TESTICULAR ULTRASOUND | | INDICATION: Right-sided scrotal [...] Age: 64 Sex: M Acct: | | [id number] Loc: 426 2 Exam Date: | | 05/03/2015 Status: ADM IN Radiology No: | | Unit No: [id number] EXAM# | | TYPE/EXAM RESULT [id number] | | US/SCROTAL ULTRASOUND 42133 Findings | | reviewed with Dr. Estes May 04, 2015. [id number] | | REPORT ELECTRONICALLY SIGNED 05/05/2015 (1635) Reported | | By: Neetu HERNÁNDEZ MD Signed By: Scooter Hernández M.D. | | Technologist: LISA DICKERSON | | Electronically signed by: Neetu HERNÁNDEZ MD CC: Romain Harrington MD | | | | Transcribed Date/Time: 05/04/2015 (1630) | | Concierge Manager: AnmolRUST PAGE 2 Signed Report | | | [...] Age: 64 Sex: M | | Acct: [id number] Loc: 426 2 | | Exam Date: 05/03/2015 Status: ADM IN | | Radiology No: | | Unit No: [id number] | | | | | | | | | |EXAM# TYPE/EXAM RESULT | |[id number] US/SCROTAL ULTRASOUND 52547 | | | | Findings reviewed with Dr. Estes May 04, 2015. | | | | [id number] | | | | | | REPORT [...] | | | | Transcribed Date/Time: 05/04/2015 (3676) | | Concierge Manager: PUSHPAW | | | | | | [...] POINT | | | GLUCOSE, | ID: [id number]: | | OF CARE | | | POC | [id number] Adam Han | | TESTING | | | |Senior Technical Project Manager: [id number] Adam Han | | | | | [...] POINT | | | GLUCOSE, | ID: [id number]: | | OF CARE | | | POC | [id number] Megan | | TESTING | | | | Ivv | | | | | | | [...] | | TESTING | | | | [id number]: | | | | | | [id number] Bruceheron Prettya | | | | | [...]
--- OUTSIDE RECORDS SUMMARY | ~2020-03-20 | XMS | Encounter Summary ---
Demographics + + + | Address | [address] [place] [address] | | | [place] [address] | + + + | Home Phone | | + + + | Preferred Language | Unknown | + + + | Marital Status | Single | + + + | Uatsdin Affiliation | PEN | + + + | Race | White | + + + | Ethnic Group | Not or | + + + Author + + + | Author | [facility] | + + + | Organization | [facility] | + + + | Address | Unknown | + + + | Phone | Unavailable | + + + Support + + + + + | Name | Relationship | Address | Phone | + + + + + | Aileen Nelson | ECON | [address] | | | | | [place] [address] | | + + + + + Care Team Providers + +------+ + | Care Corporate Legal Intern Name | Role | Phone | + [...] [place] | | | | | [address] | [address] | | | | | | [phone] | | | | | | | [...] Edmond Estes MD - 05/10/2015 6:00 PM [facility] PROGRESS NOTE [address] [address] SARTHAK NELSON DATE OF SERVICE: 05/10/2015 TIME [...] here to the ER or to the [facility] Hospital. GIANCARLO/Sylvie /[id number] Electronically Signed 05/22/15 1228 MD MANOJ Cantu EDWARD E [id number] : 50 [id number] ADMIT DATE: 05/04/15 DISCHARGE DATE: 05/10/15 Edmond Wood MD - 05/09/2015 9:54 PM [facility] PROGRESS NOTE [address] [place] [address] SARTHAK NELSON HISTORY UPDATE: Mr. Nelson was [...] has been in discussion with at the DC in [place]. I do not see any need for [...] infect a sterile fluid collection. MM/SARTHAK Sánchez [id number] : 50 [id number] ADMIT DATE: 05/04/15 DISCHARGE DATE: /[id number] Electronically Signed 05/10/15 0814 MD MANOJ Cantu EDWARD E [id number] : 50 [id number] ADMIT DATE: 05/04/15 DISCHARGE DATE: Bruno Ramirez MD - 05/09/2015 4:01 PM [facility] PROGRESS NOTE [address] [place] [address] SARTHAK NELSON DATE OF SERVICE: 05/09/2015 ASSESSMENT [...] get closer to within normal limits. ILL/MedQ /[id number] Electronically Signed 05/10/15 0715 MD MANOJ Abbott EDWARD E [id number] : 50 [id number] ADMIT DATE: 05/04/15 DISCHARGE DATE: Bruno Ramirez MD - 05/09/2015 3:54 PM [facility] PROG RESS NOTE [address] [place] [address] SARTHAK NELSON DATE OF SERVICE: 05/09/2015 24-HOUR [...] was working because once the SARTHAK NELSON [id number] : 50 [id number] ADMIT DATE: 05/04/15 DISCHARGE DATE: ceftriaxone was [...] recent urinalysis, specifically on 04/18/2015 at the DC, and this was of 100,000 colony-forming units. [employer] does cover for this. In addition, in speaking with Alaina Malik, the infectious disease lead clinical at the DC, she stated that this will also cover [...] of a dime with minimal SARTHAK NELSON [id number] : 50 [id number] ADMIT DATE: 05/04/15 DISCHARGE DATE: anguinous seepage. Will monitor. 9. Deep venous thrombosis prophylaxis. On warfarin currently. ILL/MedQ /[id number] Electronically Signed 05/10/15 0715 MD MANOJ Abbott EDWARD E [id number] : 50 [id number] ADMIT DATE: 05/04/15 DISCHARGE DATE: Bruno Ramirez MD - 05/08/2015 6:59 PM [facility] PROG RESS NOTE [address] [place] [address] SARTHAK NELSON DATE OF SERVICE: 05/08/2015 24-HOUR [...] that was isolated on 04/18/2015 at the DC from a urine culture growing more than 100,000 colony-forming units. In addition, speaking to Alaina Malik, who is the DC lead clinical there, since the patient's infectious disease specialist, Dr. Cait Peres, is on vacation, stated to also cover for gonorrhea that could be circulating in the community. Even though I stated the patient has not had SARTHAK NELSON [id number] : 50 [id number] ADMIT DATE: 05/04/15 DISCHARGE DATE: sexual intercourse [...] 3. Baseline creatinine is 1.9 as per DC records. Currently his creatinine is 1.7, we [...] today, the infectious disease clinician at the DC (phone number is [phone]). Prior to this, also tried calling Jennifer, another HIV route sales representative at the DC, at [phone], and left a message. 3. Also called Martin Stokes, of infectious diseases at [facility], at [phone]. The conversation initially was started with Martin Stokes, who [facility], specifically, Alaina Malik, who in turn contacted me. ILL/MedQ /[id number] Electronically Signed 05/09/15 0700 MD MANOJ Abbott EDWARD E [id number] : 50 [id number] ADMIT DATE: 05/04/15 DISCHARGE DATE: Bruno Ramirez MD - 05/07/2015 4:09 PM [facility] PROG RESS NOTE [address] [place] [address] SARTHAK ENLSON DATE OF SERVICE: 05/07/2015 24-HOUR EVENTS: None. [...] If not, then we will SARTHAK NELSON [id number] : 50 [id number] ADMIT DATE: 05/04/15 DISCHARGE DATE: consider getting [...] with oral antibiotic before considering discharge. ILL/MedQ /[id number] Electronically Signed 05/08/15 1058 MD MANOJ Abbott EDWARD E [id number] : 50 [id number] ADMIT DATE: 05/04/15 DISCHARGE DATE: Bruno Ramirez MD - 05/07/2015 3:21 PM [facility] PROG RESS NOTE [address] [place] [address] NELSONSARTHAK TEMPLE CONTINUATION: Chronic kidney disease stage III. Baseline creatinine is 1.9. This is from review of DC records. ILL/MedQ /[id number] Electronically Signed 05/08/15 1058 Bruno Gray MD ASRTHAK NELSON [id number] : 50 [id number] ADMIT DATE: 05/04/15 DISCHARGE DATE: Abad Barraza MD - 05/07/2015 1:44 PM [facility] PROGRESS NOTE [address] [place] [address] NELSONCHERYLLUIS Morales CURRENT PROBLEM: Right epididymitis. HISTORY [...] in [facility] or at the [facility] Urology Department-where he is an established patient. We will follow him on a p.r.n. basis during the remainder his hospitalization. GAG/MedQ /[id number] Electronically Signed 05/23/15 0728 MD MANOJ Gomez EDWARD E [id number] : 50 [id number] ADMIT DATE: 05/04/15 DISCHARGE DATE: 05/10/15 Bruno Ramirez MD - 05/06/2015 11:19 AM [facility] PROGRESS NOTE [address] [place] [address] SARTHAK NELSON DATE OF SERVICE: 05/06/2015 24-HOUR [...] morning before considering discharge. ILL/MedQ SARTHAK NELSON [id number] : 50 [id number] ADMIT DATE: 05/04/15 DISCHARGE DATE: /[id number] Electronically Signed 05/07/15 0700 MD MANOJ Abbott EDWARD E [id number] : 50 [id number] ADMIT DATE: 05/04/15 [facility] 05/05/2015 9:07 PM [facility] PROGRESS NOTE [address] [place] [address] SARTHAK NELSON DATE OF SERVICE: 05/05/2015 BRIEF HISTORY: A 64-year-old gentleman with multiple comorbidities who is followed through the DC medical system. He has HIV and reports [...] Disposition: Likely home tomorrow. DC/MedQ SARTHAK NELSON [id number] : 50 [id number] ADMIT DATE: 05/04/15 DISCHARGE DATE: /[id number] Electronically Signed 05/06/15 1037 MD MANOJ Vu EDWARD E [id number] : 50 [id number] ADMIT DATE: 05/04/15 DISCHARGE DATE: [facility] Edmond franco MD - 05/05/2015 1:12 PM [facility] PROGRESS NOTE [address] [place] [address] SARTHAK NELSON DATE OF SERVICE: 05/05/2015 EVENTS [...] Urology can be contacted to re-consult. MM/MedLoulou /[id number] Electronically Signed 05/10/15 0813 MD MANOJ Cantu EDWARD E [id number] : 50 [id number] ADMIT DATE: 05/04/15 DISCHARGE DATE: [facility] Edmond gray MD - 05/05/2015 10:45 AM [facility] CONSULTATI ON [address] [place] [address] SARTHAK NELSON DATE OF CONSULTATION: 05/04/2015 REQUESTING [...] scrotum is enlarged bilaterally, and SARTHAK NELSON [id number] : 50 [id number] ADMIT DATE: 05/04/15 on the left side [...] of this patient. Urology will follow. GIANCARLO/MedLoulou /[id number] Electronically Signed 05/10/15 0813 MD MANOJ CantuSARTHAK [id number] : 50 [id number] ADMIT DATE: 05/04/15 Ghanshyam Kelly MD - 05/04/2015 6:48 PM [facility] PROGRESS NOTE [address] [place] [address] NELSON,SARTHAK Morales BRIEF HISTORY: A 64-year-old gentleman [...] 8. Disposition: Continue inpatient care. SARTHAK NELSON [id number] : 50 [id number] ADMIT DATE: 05/04/15 DISCHARGE DATE: Damián /[id number] Electronically Signed 05/06/15 1036 MD MANOJ Vu EDWARD E [id number] : 50 [id number] ADMIT DATE: 05/04/15 DISCHARGE [facility]: [facility]ed in this encounter Plan of Treatment Not on filedocumented as of this encounter Visit Diagnoses Not on filedocumented in this encounter"
--- OUTSIDE RECORDS SUMMARY | ~2020-03-20 | XMS | Encounter Summary ---
Demographics + + + | Address | [address] | | | [place] [address] | + + + | Home Phone [...] Aileen Nelson | ECON | [address] [facility] | | | | | [place] | | | | | [address] | | + + + + + Care Team Providers + +------+ + | Care Boom Master Name | Role | Phone | + [...] | | | 2017 | | [address] [facility] | [address] [facility] | | | | | [place], [place] | [place], [place] | | | | | [address] | [address] | | | | | [phone] | [phone] | | | | | | | [...] + + | LIPASE | Routin | 09/16/2017 | | Results for this | | | e | 6:16 AM | | procedure are in the | | | | PST | | results section. | + +--------+ + + + documented in this encounter Results Lipase (09/16/2017 6:16 AM PST) + +---------+ + + + | Component | Value | Ref Range | Performed | Pathologist | | | | | At | Signature | + +---------+ + + + | Lipase | 409 (H) | 73 - 393 U/L | [...]
--- OUTSIDE RECORDS SUMMARY | ~2020-03-20 | XMS | Encounter Summary ---
Demographics + + + | Address | [address] [place] [address] | | | [place] [address] | + + + | Home Phone [...] Author + + + | Author | [facility] | + + + | Organization | [facility] | + + + | Address | Unknown | + + + | Phone | Unavailable | + + + Support + + + + + | Name | Relationship | Address | Phone | + + + + + | Aileen Nelson | ECON | [address] | | | | | [place] [address] | | + + + + + Care Team Providers + +------+ + | Care Alining Inspector Name | Role | Phone | + [...] | | | | Procedures | on [place] | [address] | | | | | PET SKULL | V A MEDICAL | [place] | | | | | BASE TO | CENTER | [facility] | | | | | [place] | [address] | floor | | | | | | [place] | [facility] [place] | | | | | | [address] | [address] | | | | | | [place], Phone: | | | | | | [place] [address] | [phone] | | | | | | Phone: | Fax: | | | | | | [phone] | [phone] | | | | | | Fax: | | | | | | | [phone] | | +--------+--------+ + + + + Encounter Details +--------+ + + + + | Date | Type | Department | Care Team | Description | +--------+ + + + + | 10/22/ | Hospital | Radiation Medicine | | | | 2011 | Encounter | at [facility] [address] | | | | | | [address] | | | | | | [address] | | | | | | [place], [place] | | | | | | [address] | | | | | | [phone] | | | +--------+ + + + [...]
--- OUTSIDE RECORDS SUMMARY | ~2020-03-20 | XMS | Encounter Summary ---
Demographics + + + | Address | [address] | | | [place] [address] | + + + | Home Phone [...] | Aileen Nelson | ECON | [address] [facility] | | | | | [place] | | | | | [address] | | + + + + + Care Team Providers + +------+ + | Care Senior Systems Analyst Name | Role | Phone | [...] | | | [address] [place] | [place] [address] | | | | | [place] [address] | | | | | | [phone] | | | +--------+ + + + [...] + +--------+ + + + | CT VENOGRAM HEAD W | Routin | 06/19/2018 | | Results for this | | WO CONTRAST | e | 3:30 PM | | procedure are in the | | | | PDT | | results section. | + +--------+ + + + documented in this encounter Results CT Venogram Head W WO Contrast (06/19/2018 3:30 PM PDT) + + | Specimen | [...]
--- OUTSIDE RECORDS SUMMARY | ~2020-03-20 | XMS | Encounter Summary ---
Demographics + + + | Address | [address] | | | [place] [address] | + + + | Home Phone | | + + + | Preferred Language | Unknown | + + + | Marital Status | | + + + | Spiritism Affiliation | 1038 | + + + | Race | Unknown | + + + | Ethnic Group | Unknown | + + + Author + + + | Author | [facility] | | | and [place] | + + + | Organization | [facility] | | | and [place] | + + + | Address | Unknown | + + + | Phone | Unavailable | + + + Support + + + + + | Name | Relationship | Address | Phone | + + + + + | Aileen Nelson | ECON | [address] [facility] | | | | | [place] | | | | | [address] | | + + + + + Care Team Providers + +------+ + | Care [employer] Name | Role | Phone | + +------+ + | Jericho Cao MD | PCP | | + +------+ + Reason for Visit + +--------+ + | Reason | Onset | Comments | | | Date | | + +--------+ + | Screening For | 03/06/ | | | Communicable Disease | 2020 | | + +--------+ + Encounter Details +--------+ + + + + | Date | Type | Department | Care Team | Description | +--------+ + + + + | 03/06/ | Telephone | [facility] | Hui Parsons, | Screening For | | 2020 | | [address] | [address] | Communicable Disease | | | | BLVD [place], [place] | [place] [address] | | | | | [address] | [phone] | | | | | [phone] | | | +--------+ + + + [...] this encounter Miscellaneous Notes Telephone Encounter - Barbi Cao, Mechanical Engineering Officer - 03/06/2020 12:35 PM PDTvm full , unable to leave a messageElectronically signed by Barbi Cao Mechanical Engineering Officer at 0 03/06/2020 12:35 PM PDTdocumented in this encounter Plan of Treatment Not on filedocumented as of this encounter Visit Diagnoses Not on filedocumented in this encounter"
--- OUTSIDE RECORDS SUMMARY | ~2020-03-20 | XMS | Clinical Summary ---
Demographics + + + | Address | [address] | | | [place] [address] | + + + | Home Phone | | + + + | Preferred Language | Unknown | + + + | Marital Status | | + + + | Orthodoxy Affiliation | 1038 | + + + | Race | Unknown | + + + | Ethnic Group | Unknown | + + + Author + + + | Author | [facility] | | | and [place] | + + + | Organization | [facility] | | | and [place] | + + + | Address | Unknown | + + + | Phone | Unavailable | + + + Support + + + + + | Name | Relationship | Address | Phone | + + + + + | Aileen Nelson | ECON | [address] [facility] | | | | | [place] | | | | | [address] | | + + + + + Care Team Providers + +------+ + | Care Direct Support Professional Home Health Name | Role | Phone | + +------+ + | Jericho Cao MD | PCP | | + +------+ + Allergies + + + + + + | Active Allergy | Reactions | Severity | Noted | Comments | | | | | Date | | + + + + + + | Amoxicillin | | High | 09/18/20 | Augmentin- throat | | | | [...] | | + + + +---------+------+------+-------+ | Troy Foley 450 | Take 900 mg by mouth [...] | | + + + +---------+------+------+-------+ | spironolactone | Take 50 mg by mouth | | 0 | | | Activ | | (ALDACTONE) 50 mg | Daily. | | | | | e | | tablet | | | | | | | + + + +---------+------+------+-------+ | insulin glargine | Inject 10 Units | | 0 | | | Activ | | (LANTUS) 100 | under the skin 2 | | | | | e | | units/mL injection | times daily. | | | | | | | (vial) | | | | | | | + + + +---------+------+------+-------+ | tolnaftate | Apply topically 2 | | 0 | | | Activ | | (TINACTIN) 1% powder | times daily. | | | | | e | + + + +---------+------+------+-------+ | acetaminophen | Take 2 tablets by | 120 | 0 | 01/2 | | Activ | | (TYLENOL) 325 mg | mouth every 6 hours | tablet | | 9/20 | | e | | tablet | as needed for Pain | | | 20 | | | | | (or fever >= 38.6 C | | | | | | | | (101.5 F)). | | | | | | + + + +---------+------+------+-------+ | lactulose 10 g/15 | Take 30 mLs by mouth | 320 mL | 0 | 01/2 | | Activ | | mL solution | Twice daily as | | | 9/20 | | e | | | needed for | | | 20 | | | | | Constipation. | | | | | | + + + +---------+------+------+-------+ | | Take 1 tablet by | 50 | 0 | 01/2 | | Activ | | HYDROcodone-acetamin | mouth every 6 hours | tablet | | 9/20 | | e | | ophen (NORCO) 5-325 | as needed for Pain. | | | 20 | | | | mg per tablet | | | | | | | + + + +---------+------+------+-------+ Active Problems + + + | Problem | Noted Date | + + + | Atrial fibrillation | 10/10/2019 | + + + | Chronic anticoagulation | 10/10/2019 | + + + | Hip fracture | 10/10/2019 | + + + | Closed fracture of left hip, initial encounter | 10/09/2019 | + + + + + | Overview: Added automatically from request for surgery | | [id number] | + + + + + | Acute left hemiparesis [...] infection) | 06/19/2018 | + + + Encounters +--------+ + + + + | Date | Type | Specialty | Care Team | Description | +--------+ + + + + | 03/06/ | Telephone | Orthopedic Surgery | Hui Parsons, | Screening For | | 2019 | | | MD | Communicable Disease | +--------+ + + + + | 02/25/ | Telephone | Orthopedic Surgery | Hui Parsons, | Screening For | | 2019 | | | MD | Communicable Disease | +--------+ + + + + from Last 3 Months Immunizations + + + + | Name [...] | | TRIVALENT(PED/ADOL/A | | | | DULT), PSKT | | | + + + + | INFLUENZA, [id number], | 10/03/2009, 08/16/2009 | | | UNSPECIFIED [...] + + + | Blood Pressure | 104/57 | 10/18/2019 11:42 AM | | | | | PST | | + + + + + | Pulse | 72 | 2019 10:26 AM | | | | | PDT | | + + + + + | Temperature | 37.1 C (98.7 F) | 2019 10:26 AM | | | | | PDT | | + + + + + | Respiratory Rate | 16 | 10/18/2019 11:42 AM | | | | | PST | | + + + + + [...] Health Maintenance | Due Date | Last | Comments | | | | Done | | + + + + + [...] + | Vaccine: Zoster (2 | | 08/05/20 | | | of 3) | 2 | 11 | | + + + [...] + + + | Vaccine: | | 07/30/20 | | | Pneumococcal 65+ (2 | 8 | 15, | | | of 2 - PPSV23) | | 08/02/20 | | | | | 13, | | | | | 08/02/20 | | | | | 13, | | | | | Addition | | | | | al | | | | | history | | | | | exists | | + + + + + | Hemoglobin A1c | | 10/10/19 | | | Screening | 0 | 20, | | | | | 06/20/20 | | | | | 18 | | + + + + + | Vaccine: | | 02/18/20 | | | Dtap/Tdap/Td (4 - | 9 | 19, | | | Td) | | 08/05/20 | | | | | 11, | | | | | 04/12/20 | | | | | 01, | | | | | Addition | | | | | al | | | | | history | | | | | exists | | + + + + + | Vaccine: Influenza | Completed | 09/08/20 | | | | | 19, | | | | | 06/30/20 | | | | | 18, | | | | | 06/20/20 | | | | | 18, | | | | | Addition | | | | | al | | | | | history | | | | | exists | | + + + + + Implants + +-------+--------+ +--------+--------+--------+ | Implanted | Type | Area | Manufacture | Device | Shelf | Model | | | | | r | | Expira | / | | | | | | Identi | tion | Serial | | | | | | fier | Date | / Lot | + +-------+--------+ +--------+--------+--------+ | Nail Fem Tfna St 130d [id number] | Nail | Left: | [employer] DEPUY | | 03/19/ | 04.037 | | L - Sn/AImplanted: Qty: 1 on | | Femur | SYNTHES - | | 2025 | .[id number] | | 10/12/2019 by Issa, | | | SYNT | | | /N/A | | MD Hui at [facility] | | | | | | /[id number] | | [facility] | | | | | | 23 | + +-------+--------+ +--------+--------+--------+ | Screw Im Nancy Slf-Tp F/T | Screw | Left: | [employer] DEPUY | | | 04.005 | | 5x64mm - Sn/AImplanted: Qty: | | Femur | SYNTHES - | | | .544 | | 1 on 10/12/2019 by Issa, | | | SYNT | | | /N/A | | MD Hui at [facility] | | | | | | /N/A | | [facility] | | | | | | | + +-------+--------+ +--------+--------+--------+ | Imp Blde Hlcl Tfn Adv 125 | | Left: | [employer] DEPUY | | 08/31/ | 04.038 | | Strl - Sn/AImplanted: Qty: 1 | | Femur | SYNTHES - | | 2027 | .[id number] | | on 10/12/2019 by Issa, | | | SYNT | | | /N/A | | MD Hui at [facility] | | | | | | /[id number] | | [facility] | | | | | | 79 | + +-------+--------+ +--------+--------+--------+ Results Not on filefrom Last 3 Months [...] +--------+ +--------+ +---------+--------+ | [place] ADMIN | [place] | [id number] | | | | Indemn | | | COMMUN | | 000-Pr | | | ity | | | ITY | | esent | | | | | | CARE | | | | | | + +--------+ +--------+ +---------+--------+ | [employer] ADMIN | [facility] | [id number] | | | | Indemn | | | NS | | 000-Pr | | | ity | | | ADMIN | | esent | | | | | | [place] | | | | | | | | [place] | | | | | | + +--------+ +--------+ +---------+--------+ | VETERANS ADMIN | [place] | [id number] | 05/21/20 | | | Indemn | | | NS | | 18-Pre | | | ity | | | ADMIN | | sent | | | | | | [place] | | | | | | | | [place] | | | | | | + +--------+ +--------+ +---------+--------+ | MEDICARE | MEDICA | [id number] | 09/20/18 | [phone] | | Medica | | | RE | | 97-Pre | 5 | | re | | | PART A | | sent | | | | + +--------+ +--------+ +---------+--------+ | MEDICARE | MEDICA | [id number] | 09/20/18 | [phone] | | Medica [...] Person | Self [birth year] | [address][birth year] | | | al/Fam | | 1951 | [phone] | [place] | | | john | | | 5 (Home) | [phone] | + +--------+ +--------+ + + | Sarthak Nelson | Person | Self | [birth year] | [birth year] | | | al/Fam | | 1 | [phone] | [place] | | | john | | | 5 ([place]) | [phone] | + +--------+ +--------+ + + Advance Directives + + + + + | Type | Date Recorded | Patient | Explanation | | | | Certified Medication Aide | | + + + + + | Power of | | | | | Colorist Photography | | | | + + + + + | Advance | 06/20/2018 9:59 | | @'s office | | Directive | AM | | | + + + + + + + + + + | Code Status | Date | Date | Comments | | | Activated | Inactivated | | + + + + + | Full Code | 10/10/2019 | 10/18/2019 | | | | 2:34 AM | 6:02 PM | | + + + + + + + + +---+ | | | | | + + + +---+ | Full Code | 06/22/2018 | 07/01/2018 | | | | 5:43 PM | 3:31 PM | | + + + +---+ + + + +---+ | | | | | + + + +---+ | Full Code | 06/19/2018 | 06/22/2018 | | | | 8:45 PM | 5:21 PM | | + + + +---+"
--- OUTSIDE RECORDS SUMMARY | ~2020-03-20 | XMS | Encounter Summary ---
Demographics + + + | Address | [address] [place] [address] | | | [place] [address] | + + + | Home Phone [...] + + + | Author | [facility] | + + + | Organization | [facility] | + + + | Address | Unknown | + + + | Phone | Unavailable | + + + Support + + + + + | Name | Relationship | Address | Phone | + + + + + | Aileen Nelson | ECON | [address] | | | | | [place] [address] | | + + + + + Care Team Providers + +------+ + | Care Family Advocate Name | Role | Phone | + [...] [place] | | | | | | [address] | | | | | | [phone] | | | | | | | [...] POINT | | | GLUCOSE, | ID: [id number]: | | OF CARE | | | POC | [id number] Jesse Ivey | | TESTING | | | |Residential Living Assistant: [id number] Jesse Ivey | | | | | [...] POINT | | | GLUCOSE, | ID: [id number]: | | OF CARE | | | POC | [id number] John Goyal | | TESTING | | | |Residential Living Assistant: [id number] John Goyal | | | | | [...] POINT | | | GLUCOSE, | ID: [id number]: | | OF CARE | | | POC | [id number] John Goyal | | TESTING | | | |Residential Living Assistant: [id number] John Goyal | | | | | [...] POINT | | | GLUCOSE, | ID: [id number]: | | OF CARE | | | POC | [id number] John Goyal | | TESTING | | | |Residential Living Assistant: [phone] John Goyal | | | | | [...] POINT | | | GLUCOSE, | ID: [id number]: | | OF CARE | | | POC | [id number] Linsey Peñaloza | | TESTING | | | |Residential Living Assistant: [id number] Linsey Anabela | | | | | [...] POINT | | | GLUCOSE, | ID: [id number]: | | OF CARE | | | POC | [id number] Jesse Ivey | | TESTING | | | |Residential Living Assistant: [id number] Jesse Ivey | | | | | [...] POINT | | | GLUCOSE, | ID: [id number]: | | OF CARE | | | POC | [id number] Davijasvir Diop | | TESTING | | | |Residential Living Assistant: [id number] Davi Diop | | | | | [...]
--- OUTSIDE RECORDS SUMMARY | ~2020-03-20 | XMS | Encounter Summary ---
Demographics + + + | Address | [address] [place] [address] | | | [place] [address] | + + + | Home Phone [...] | | | | | [place] [address] | | + + + + + Care Team Providers + +------+ + | Care Gm Mobile Name | Role | Phone | + +------+ + PCP | Unavailable | + +------+ + Encounter Details +--------+ + + + + | Date | Type | Department | Care Team | Description | +--------+ + + + + | 01/19/ | Hospital | Dermatopathology | | | | 2011 | Encounter | [address] | | | | | | Mailcode: CH16D | | | | | | [facility] | | | | | | and Healing, | | | | | | Building [address], | | | | | | Floor [place], [place] | | | | | | [address] | | | | | | [phone] | | | +--------+ + + + [...] | | | | | | analysis ([facility], | | | | | | [id number],02/16/12): [...] CD10 | | | | | | [id number] CD14 CD15 CD16 | | | | | | CD19 CD20 CD25 [id number] | | | | | | CD38 CD45 CD56 CD58 | | | | | | CD64 CD71 [id number] | | | | | | sKappa sLambda | | | | | | HLA-DR CD57 CD94 | | | | | | [id number] | | | | | | [id number] | | | | | | [id number] (Analyte | | | | | | specific reagents are | | | | | | used in many laboratory | | | | | | tests necessary | | | | | | [facility] | | | | | | and [...] Medical | | | | | | [place], [place] | | | | | | [...] | + + + + + | [facility] | [address] | [place] [address] | | | PATHOLOGY | [address] [...] | | | | | | of [facility] | | | | | [...] [facility] | [address] | [place] [address] | | | DERMATOPATHOLOGY | [address] | | | + + + + + documented in this encounter Visit Diagnoses Not on filedocumented in this encounter"
--- OUTSIDE RECORDS SUMMARY | ~2020-03-20 | XMS | Encounter Summary ---
Demographics + + + | Address | [address] [place] [address] | | | [place] [address] | + + + | Home Phone [...] Author + + + | Author | [facility] | + + + | Organization | [facility] | + + + | Address | Unknown | + + + | Phone | Unavailable | + + + Support + + + + + | Name | Relationship | Address | Phone | + + + + + | Aileen Nelson | ECON | [address] | | | | | [place] [address] | | + + + + + Care Team Providers + +------+ + | Care Environmental Project Manager Name | Role | Phone | [...] | | | | Procedures | on [place] | [address] | | | | | PET SKULL | V A MEDICAL | [place] | | | | | BASE TO | CENTER | [place], [facility] | | | | | MID-THIGHS | [address] | floor | | | | | | [place] | [facility] [place] | | | | | | [address] | [address] | | | | | | [place], Phone: | | | | | | [place] [address] | [phone] | | | | | | Phone: | Fax: | | | | | | [phone] | [phone] | | | | | | Fax: | | | | | | | [phone] | | +--------+--------+ + + + + Encounter Details +--------+ + + + + | Date | Type | Department | Care Team | Description | +--------+ + + + + | 10/22/ | Hospital | Radiation Medicine | | | | 2011 | Encounter | at [facility] [address] | | | | | | [address] [facility] | | | | | | [address] | | | | | | [place], [place] | | | | | | [address] | | | | | | [phone] | | | +--------+ + + + [...]
--- OUTSIDE RECORDS SUMMARY | ~2020-03-20 | XMS | Encounter Summary ---
Demographics + + + | Address | [address] | | | [place] [address] | + + + | Home Phone [...] Aileen Nelson | ECON | [address] [facility] | | | | | [place] | | | | | [address] | | + + + + + Care Team Providers + +------+ + | Care Granulator Name | Role | Phone | + [...] | | | 2017 | | [address] [facility] | [address] [facility] | | | | | [place], [place] | [place], [place] | | | | | [address] | [address] | | | | | [phone] | [phone] | | | | | | | [...] +--------+ + + + | EXTERNAL LAB: CBC | Routin | 09/16/2017 | | Results for this | | | e | 6:16 AM | | procedure are in the | | | | PST | | results section. | + +--------+ + + + | EXTERNAL LAB: CBC | Routin | 09/16/2017 | | Results for this | | | e | 6:16 AM | | procedure are in the | | | | PST | | results section. | + +--------+ + + + documented in this encounter Results External Lab: CBC (09/16/2017 6:16 AM PST) [...] + + + + + + | Red Blood | 5.08 | 4.20 - 5.70 | EXTERNAL | | | Cells | | 10*6/uL | LAB | | | Counted | | | | | + + + + + + | Hemoglobin | 15.5 | 13.2 - 17.0 | [...] + + + + + + | Red Blood | 5.08 | 4.20 - 5.70 | EXTERNAL | | | Cells | | 10*6/uL | LAB | | | Counted | | | | | + + + + + + | Hemoglobin | 15.5 | 13.2 - 17.0 | [...]
--- OUTSIDE RECORDS SUMMARY | ~2020-03-20 | XMS | Encounter Summary ---
Demographics + + + | Address | [address] [place] [address] | | | [place] [address] | + + + | Home Phone | | + + + | Preferred Language | Unknown | + + + | Marital Status | Single | + + + | Holiness Affiliation | PEN | + + + | Race | White | + + + | Ethnic Group | Not or | + + + Author + + + | Author | [facility] | + + + | Organization | [facility] | + + + | Address | Unknown | + + + | Phone | Unavailable | + + + Support + + + + + | Name | Relationship | Address | Phone | + + + + + | Aileen Nelson | ECON | [address] | | | | | [place] [address] | | + + + + + Care Team Providers + +------+ + | Care Curriculum And Assessment Director Name | Role | Phone | + [...] By Patient | | | | [address] [place], [place] | [place] [address] | | | | | [address] | [phone] | | | | | [phone] | | | +--------+ + + + [...]
--- OUTSIDE RECORDS SUMMARY | ~2020-03-20 | XMS | Encounter Summary ---
Demographics + + + | Address | [address] | | | [place] [address] | + + + | Home Phone | | + + + | Preferred Language | Unknown | + + + | Marital Status | | + + + | Methodist Affiliation | 1038 | + + + | Race | Unknown | + + + | Ethnic Group | Unknown | + + + Author + + + | Author | [facility] | | | and [place] | + + + | Organization | [facility] | | | and [place] | + + + | Address | Unknown | + + + | Phone | Unavailable | + + + Support + + + + + | Name | Relationship | Address | Phone | + + + + + | Aileen Nelson | ECON | [address] [facility] | | | | | [place] | | | | | [address] | | + + + + + Care Team Providers + +------+ + | Care Adult And Pediatric Neurologist Name | Role | Phone | + +------+ + | Jericho Cao MD | PCP | | + +------+ + Reason for Visit Surgery OP (Routine) + +--------+ + + [...] | | | | neck of | [place], [place] | [place], [place] | | | | | unspecified | [address] | [address] Phone: | | | | | femur, | Phone: | [phone] | | | | | initial | [phone] | Fax: | | | | | encounter | Fax: | [phone] | | | | | for closed | [phone] | | | | | | fracture | | | | | | | ([facility]) L hip | | | | | [...] Description | +--------+---------+ + + + | 11/16/ | Office | [facility] | Guille Oliveira, | Closed fracture of | | 2019 | Visit | [place] [address] | PA-C [address] | left hip with | | | | [address] [place], [place] | [address] | routine healing, | | | | [address] | [place], [place] | subsequent encounter | | | | [phone] | [address] | (Primary Dx) | | | | | [phone] | | | | | | | [...] + + + + | Pulse | - | - | | + + + + + | Temperature | - | - | | + + + + + | Respiratory Rate | - | - | | + + + + + | Oxygen Saturation | - | - | | + + + + + | Inhaled Oxygen | - | - | | | Concentration | | | | + + + + + | Weight | 159.7 kg (352 lb) | 11/16/2019 10:47 AM | | | | | PST | | + + + + + | Height | 182.9 cm (6') | 11/16/2019 10:47 AM | | | | | PST | | + + + + + | Body Mass Index | 47.74 | 11/16/2019 10:47 AM | | | | | PST [...] Instructions Patient Instructions Guille Oliveira PA-C - 11/16/2019 10:50 AM PSTWeight bear as tolera lloyd on the left leg with the assistance of an walker Use the knee brace as needed for support Continue with physical therapy for motion, mobility, strengthening, and balance. documented in this encounter Progress Notes Guille Oliveira PA-C - 11/16/2019 10:50 AM PST 11/16/2019 INTERVAL HISTORY Patient presents to the office 5 weeks s/p L hip cephalomedullary nailing. Patient current ly resides at a fpc facility, but has not been weightbearing. States that the s taff does not have orders to allow him to weight-bear. While at rest his pain is manageable , but when being transported and sitting in a wheelchair he currently relates his pain as 11 /10 in severity. Feels that the hip is stable. Denies any altered sensation the affected e xtremity distally. There were no vitals filed for this visit. PHYSICAL EXAMINATION LLE - hip: Incision over the lateral hip is healing well w/o erythema, discharge or warmth . No wound dehiscence. No swelling. No pain with logroll. Sensation intact distally. DIAGNOSTIC DATA: No results found for this or any previous visit (from the past 360 hour(s)). ASSESSMENT/ PLAN 1. Closed fracture of left hip with routine healing, subsequent encounter Edward is 5 weeks s/p L hip cephalomedullary nailing. Imaging was not obtained today becau se the patient is at high risk of fall and we do not have a Shelley lift available. I discuss ed with Dr. Parsons who felt that we can allow the patient to be weightbearing as tolerated an d will plan on getting imaging at the [address] [place] [address] before his next visit. Patient reports that the left knee will occasionally give out while standing and has reques lloyd a knee brace which he may use as needed. We will reassess his progress in 4 weeks. No orders of the defined types were placed in this encounter. Requested Prescriptions No prescriptions requested or ordered in this encounter Return in about 4 weeks (around 12/14/2019). Weight bear as tolerated on the left leg with the assistance of an walker Use the knee brace as needed for support Continue with physical therapy for motion, mobility, strengthening, and balance. Xrays for next visit: 2 views left femur (imaging will need to be performed at the [address] [place] [address]) Electronically signed by: Guille Oliveira PA-C 11/17/2019 4:04 PM documented in thi s encounter Plan of Treatment Not on filedocumented as of this encounter Visit Diagnoses + + | Diagnosis | + + | Closed fracture of left hip with routine healing, subsequent encounter - Primary | + + documented in this encounter"
--- OUTSIDE RECORDS SUMMARY | ~2020-03-20 | XMS | Encounter Summary ---
Demographics + + + | Address | [address] [place] [address] | | | [place] [address] | + + + | Home Phone | | + + + | Preferred Language | Unknown | + + + | Marital Status | Single | + + + | Bahai Affiliation | PEN | + + + [...] | | | | | [place] [address] | | + + + + + Care Team Providers + +------+ + | Care Marketing Content Coordinator Name | Role | Phone | [...] [place] | | | | | | [address] | | | | | | [phone] | | | | | | | [...] POINT | | | GLUCOSE, | ID: [id number]: | | OF CARE | | | POC | [id number] Davi Diop | | TESTING | | | |Holter Technician: [id number] Davi Diop | | | | | [...] [place] POINT | | | GLUCOSE, | [id number]: | | OF CARE | | | POC | [id number] Linsey Peñaloza | | TESTING | | | |Holter Technician: [id number] Linsey Peñaloza | | | | | [...] POINT | | | GLUCOSE, | ID: [id number]: | | OF CARE | | | POC | [id number] Linsey Peñaloza | | TESTING | | | |Holter Technician: [id number] Linsey Peñaloza | | | | | [...] POINT | | | GLUCOSE, | ID: [id number]: | | OF CARE | | | POC | [id number] Linsey Peñaloza | | TESTING | | | |Holter Technician: [id number] Linsey Peñaloza | | | | | [...] POINT | | | GLUCOSE, | ID: [id number]: | | OF CARE | | | POC | [id number] Jesse Ivey | | TESTING | | | |Holter Technician: [id number] Jesse Ivey | | | | | [...]
--- OUTSIDE RECORDS SUMMARY | ~2020-03-20 | XMS | Encounter Summary ---
Demographics + + + | Address | [address] [place] [address] | | | [place] [address] | + + + | Home Phone [...] Author + + + | Author | [facility] | + + + | Organization | [facility] | + + + | Address | Unknown | + + + | Phone | Unavailable | + + + Support + + + + + | Name | Relationship | Address | Phone | + + + + + | Aileen Nelson | ECON | [address] | | | | | [place] [address] | | + + + + + Care Team Providers + +------+ + | Care Garment Finisher Name | Role | Phone | + [...] [place] | | | | | | [address] | | | | | | [phone] | | | | | | | [...]
--- OUTSIDE RECORDS SUMMARY | ~2020-03-20 | XMS | Encounter Summary ---
Demographics + + + | Address | [address] | | | [place] [address] | + + + | Home Phone [...] | Author | [facility] [...] | Aileen Nelson | ECON | [address] [facility] | | | | | [place] | | | | | [address] | | + + + + + Care Team Providers + +------+ + | Care Pulley Man Name | Role | Phone | + +------+ + | Jericho Cao MD | PCP | | + +------+ + Encounter Details +--------+ + + + + | Date | Type | Department | Care Team | Description | +--------+ + + + + | 07/01/ | Hospital | [facility] | Asaf Parra, | | | 2018 | Encounter | MED CTR THERAPY OT | OT [place], | | | | | ACUTE [address] | [place] | | | | | [place], [place] | | | | | | [address] | | | | | | [phone] | | | +--------+ + + + [...] + + +---------+ + + | [address] | [address] [...]
--- OUTSIDE RECORDS SUMMARY | ~2020-03-20 | XMS | Encounter Summary ---
Demographics + + + | Address | [address] | | | [place] [address] | + + + | Home Phone [...] + + | Author | [facility] | | | and [place] | + + + | Organization | [facility] | | | and [place] | + + + | Address | Unknown | + + + | Phone | Unavailable | + + + Support + + + + + | Name | Relationship | Address | Phone | + + + + + | Aileen Nelson | ECON | [address] [facility] | | | | | [place] | | | | | [address] | | + + + + + Care Team Providers + +------+ + | Care Auto Service Advisor Name | Role | Phone | [...] | | | 2017 | | [address] [facility] | [address] [facility] | | | | | [place], [place] | [place], [place] | | | | | [address] | [address] | | | | | [phone] | [phone] | | | | | | | [...] + + | Attending/Visit Provider: , MASTER BARAOHNA, Tessa AGUILAR, , , , NICOLAS, | [...]
--- OUTSIDE RECORDS SUMMARY | ~2020-03-20 | XMS | Encounter Summary ---
Demographics + + + | Address | [address] [place] [address] | | | [place] [address] | + + + | Home Phone [...] Author + + + | Author | [facility] | + + + | Organization | [facility] | + + + | Address | Unknown | + + + | Phone | Unavailable | + + + Support + + + + + | Name | Relationship | Address | Phone | + + + + + | Aileen Nelson | ECON | [address] | | | | | [place] [address] | | + + + + + Care Team Providers + +------+ + | Care Sample Tester Grinder Name | Role | Phone | [...] [place] | | | | | | [address] | | | +--------+ + + + [...]
--- OUTSIDE RECORDS SUMMARY | ~2020-03-20 | XMS | Encounter Summary ---
Demographics + + + | Address | [address] | | | [place] [address] | + + + | Home Phone [...] + | Author | [facility] | | | and [place] | + + + | Organization | [facility] | | | and [place] | + + + | Address | Unknown | + + + | Phone | Unavailable | + + + Support + + + + + | Name | Relationship | Address | Phone | + + + + + | Aileen Nelson | ECON | [address] [facility] [facility] | | | | | [place] | | | | | [id number] | | + + + + + Care Team Providers + +------+ + | Care Distance Learning Technician Name | Role | Phone | + +------+ + | Jericho Cao MD | PCP | | + +------+ + Encounter Details +--------+ + + + + | Date | Type | Department | Care Team | Description | +--------+ + + + + | 06/22/ | Hospital | [facility] | Pramod Salinas | Neurogenic bladder; | | 2018 - | Encounter | MED CTR [facility] [address] | MD Ekaterina [address] | Acute left | | | | [place], | [address] [place] | hemiparesis (HCC); | | 07/01/ | | [place] [address] | [place] [address] | Diabetic peripheral | | 2018 | | [phone] | [phone] | neuropathy (HCC); | | | | | | Dysphagia due to | | | | | | recent cerebral | | | | | | infarction; HIV | | | | | | (human | | | | | | immunodeficiency | | | | | | virus infection) | | | | | | (HCC) | +--------+ + + + + Social [...] Grayson a 67 y.o.malewho was admitted to [facility] on for CVA. The patient was in his usual state of health until mid morning of June 19 20 had sudde n onset of left-sided weakness. He was seen in an outlying hospital and emergently transfe rred here to [place] and admitted by Dr. Todd Sheffield MD. [...] has been on warfarin. Patient presented to [facility]. Patient was out of timeframe for TPA [...] narrowed bilater ally. Patient was transferred to [place] for further evaluation. ASSESSMENT: Principal Problem: Ischemic [...] bubble study ordered -Telemetry -Serial troponins ordered -PT/OT/INTERACTIVE MEDIA MARKETING STRATEGIST ordered -Unclear medication reconciliation, ordered, as per list which appears to be inaccurate as per patient holding Imdur, hydralazine, metoprolol for permissive hypertension -Neuro checks -Ordered Carotid Ultrasound, no images from [facility] when completed would consider carlosi ivis with [...] due to kidney injury, listed on [facility] information -Hold metoprolol for now given permissive HTN CKD 3 Cr 1.77 -Cr 2.4 in 2017 at [facility] History of CVA -On Warfarin, no ASA, atorvastatin listed?, likely emboli source in the past -Start ASA, atorvastatin FEN: Advance by bedside eval PPX: Warfarin Disp: PT/OT/INTERACTIVE MEDIA MARKETING STRATEGIST ordered He underwent brain CT scans on [...] intracranial hemorrhage. Other chronic findings are stable. MD progress note June 21 : ASSESSMENT/PLAN: Ischemic cerebrovascular accident (CVA): His presentation includes subtherapeutic INR x1. 5 months.HisWarfarin was startedwithout bridging asunclear extent of CVA, aspirin star lloyd then stopped, Will change toNOAC instead. Carotid Ultrasound without significant steno sis, which is in contrast to ST [facility]'s ultrasound. He has pacer sonot amenable with [...] Chronic leg edema from, VENOUS STASIS: F/U [place] wound clinic DVT Prophylaxis : on NOAC [...] Route Frequency Provider Last Rate Last Dose lfuqceyo-ixyukvwaaxky-bidfXIYsqz (TRIUMEQ) 600-50-300 mg per tablet 1 tablet [...] him to provide services in the home [facility] at this time. We therefore recommended discharge to an [facility] to continue his skilled therapy treatments and [...] patient will be discharged today To the [facility] in [facility] to continue with rehab services there. His [...] medication strength aka: IMDUR Unchanged Medications Details urzmegrg-qhnhoabyapbh-jelyUQXmjb 600-50-300 mg per tablet Take 1 tablet by mouth Daily. Indications: HIV Disease aka: TRIUMEQ allopurinol 100 mg tablet Take 100 mg by mouth Daily. aka: ZYLOPRIM finasteride 5 mg tablet Take 1 tablet by mouth Daily. aka: PROSCAR gabapentin 600 MG tablet Take 300 mg by mouth 2 times daily. aka: NEURONTIN Saw Keyes 450 MG Caps Take 900 mg by [...] NOT CHANGED Medication Dose Last Dose Taken; irvncubv-nvasmybyonae-lagkIGMioe (TRIUMEQ) 600-50-300 mg per tablet 1 tablet [ ] Take 1 tablet by mouth Daily. Indications: HIV Disease allopurinol (ZYLOPRIM) 100 mg tablet 100 mg [ ] Take 100 mg by mouth Daily. gabapentin (NEURONTIN) 600 MG tablet 300 mg [ ] Take 300 mg by mouth 2 times daily. Saw Keyes 450 MG CAPS 900 mg [ ] [...] this chart may have been created with [employer] voice recognition software. Occasi onal wrong-word or [...] + + +---------+ + + | Saw Keyes 450 | Take 900 mg by mouth [...] Salinas MD - 06/30/2018 3:37 PM PDT [facility] Rehabilitation Medicine Daily Progress Note Date: 06/30/18 [...] cognitive impairment Current Meds: Current Facility-Administered Medications: tnkmsfwc-aaruyyhyzvqx-rxjaMWDqwv (TRIUMEQ) 600-50-300 mg per tablet 1 tablet (POM), 1 tablet, Oral, Nightly, Pramod Salinas MD, 1 tablet at 06/29/182010 apixaban (ELIQUIS) tablet 5 mg, 5 mg, Oral, Q12H, Pramod Salinas MD, 5 mg at 06/30 0643 atorvaSTATin (LIPITOR) tablet 80 mg, 80 mg, Oral, Daily, Pramod Salinas MD, 80 mg at 06/30/18 0906 bacitracin topical ointment, , Topical, BID, Pramod [...] Pramod hancock MD, 7.5 mg at 06/29/18 1841 polyethylene glycol (MIRALAX) powder 17 g, 17 g, Oral, Daily PRN, Neetu Pfeiffer, 17 g at 06/29/18 1753 [START ON 07/01/2018] venlafaxine (EFFEXOR XR) ER capsule 75 mg, 75 mg, Oral, Daily th breakfast, Pramod Salinas MD zolpidem (AMBIEN) [...] occupational therapy, speech therapy, case management, and geriatric social work professor #Rehab - -Continue PT for gait, mobility -Continue OT for ADL's, toileting, adaptive equipment -Continue INTERACTIVE MEDIA MARKETING STRATEGIST for cognition, swallow -Continue SW for discharge [...] continuing to coordinate and collaborate with [facility] nursing staff to complement their therapy treatment focus, especially considering safety factors, as the patient is mobilized on the nursing unit. The patient is seen in collaboration with the rehab team. I met with the charge nurse fran navaing overall nursing care concerns. We also met with the patient and his , as well as our skilled nursing case manager, patient's bedside nurse, reviewing the patient's [...] Notes document close and ongoing Physiatric involvement; eicc-mx-okug vis its , professionally assessing the Patient, [...] this chart may have been created with [employer] voice recognition software. Occasi onal wrong-word or sound-alike substitutions may have occurred due to the inherent gupta itations of voice recognition software. Please read the chart carefully and recognize, using context, where these substitutions have occurred. ill, Pramod Tobar MD - 06/29/2018 4:33 PM PDT [facility] Rehabilitation Medicine Daily Progress Note Date: 06/29/18 [...] of problems with function including safety wi self-care/activities of daily living as well as [...] cognitive impairment Current Meds: Current Facility-Administered Medications: qrclhpkb-ncixyoiyrybo-kqtpLDGghf (TRIUMEQ) 600-50-300 mg per tablet 1 tablet (POM), 1 tablet, Oral, Nightly, Pramod Salinas MD, 1 tablet at 06/28/182109 apixaban (ELIQUIS) tablet 5 mg, 5 mg, [...] Daily, Pramod Salinas MD, 30 mg at 06/29/18 0829 metoprolol tartrate (LOPRESSOR) tablet 25 mg, 25 mg, Oral, BID, Pramod Salinas MD, 25 mg at 06/29/18 0829 mirtazapine (REMERON) tablet 7.5 mg, 7.5 mg, Oral, Daily after dinner, Pramod hancock MD polyethylene glycol (MIRALAX) powder 17 g, 17 g, Oral, Daily PRN, Neetu Pfeiffer venlafaxine (EFFEXOR XR) ER capsule 37.5 mg, 37.5 mg, Oral, Daily with breakfast, Junior Salinas MD, 37.5 mg at 06/29/18828 zolpidem (AMBIEN) tablet 5 mg, 5 mg, [...] occupational therapy, speech therapy, case management, and geriatric social work professor #Rehab - -Continue PT for gait, mobility -Continue OT for ADL's, toileting, adaptive equipment -Continue INTERACTIVE MEDIA MARKETING STRATEGIST for cognition, swallow -Continue SW for discharge [...] was provided to the patient. Each steam and power superintendent is addressing this as the patient advances [...] board transfers. I met with the patient's skilled nursing case manager and reviewed the current rehabilitation plan of care and discussed projected discharge destination. She is collaborating with the patient's support system to solicit their input [facility]. We are scheduling a [...] time, as well as time communicating with [facility] patient and treatment team as discussed above. Signed: Pramod Salinas MD Portions of this chart may have been created with [employer] voice recognition software. Occasi onal wrong-word or sound-alike substitutions may have occurred due to the inherent gupta itations of voice recognition software. Please read the chart carefully and recognize, using context, where these substitutions have occurred. ill, Pramod Tobar MD - 06/28/2018 4:46 PM PDT [facility] Rehabilitation Medicine Daily Progress Note Date: 06/28/18 [...] cognitive impairment Current Meds: Current Facility-Administered Medications: zhusmivo-xwyfpnhnydei-kdtzZOLllu (TRIUMEQ) 600-50-300 mg per tablet 1 tablet (POM), 1 tablet, Oral, Nightly, Pramod Salinas MD, 1 tablet at 06/27/182051 allopurinol (ZYLOPRIM) tablet 100 mg, 100 mg, Oral, Daily, Pramod Salinas MD, 100 mg at 06/28/18 0837 apixaban (ELIQUIS) tablet 5 mg, 5 mg, Oral, Q12H, Pramod Salinas MD, 5 mg at 06/28 0612 atorvaSTATin (LIPITOR) tablet 80 mg, 80 mg, Oral, Daily, Pramod Salinas MD, 80 mg at 06/28/18 0838 Hypoglycemia Management, , , Until Discontinued AND POCT Glucose, , , PRN AND dextrose 50% injection 12.5 g, 12.5 g, Intravenous, PRN, Pramod Salinas MD diphenhydrAMINE (BENADRYL) tablet 25 mg, 25 mg, Oral, Q6H PRN, Sabino Sow MD, 25 mg at 06/25/18 1805 finasteride (PROSCAR) tablet 5 mg, 5 mg, Oral, Daily, Pramod Salinas MD, 5 mg at 1 0838 gabapentin (NEURONTIN) capsule 300 mg, 300 mg, [...] occupational therapy, speech therapy, case management, and geriatric social work professor #Rehab - -Continue PT for gait, mobility -Continue OT for ADL's, toileting, adaptive equipment -Continue INTERACTIVE MEDIA MARKETING STRATEGIST for cognition, swallow -Continue SW for discharge [...] Note documents close and ongoing Physiatric involvement; kbrs-zt-aecw vis its , professionally assessing the Patient [...] needs, o r more likely discharge to long-term facility. He stated understanding of this. Please see the Rehabilitation Interdisciplinary Team Conference notes for further details regarding rehabilitation team discussion and plan. Following team conference I met with the patient and discussed the above. Safety with self-care and mobility were discussed. The patient's current rehabilitation plan of care and projected discharge destination were discussed and reviewed with the patient and our skilled nursing case manager. She is collaborating with the patient's [...] this chart may have been created with [employer] voice recognition software. Occasi onal wrong-word or sound-alike substitutions may have occurred due to the inherent gupta itations of voice recognition software. Please read the chart carefully and recognize, using context, where these substitutions have occurred. ill, Pramod Tobar MD - 06/27/2018 4:47 PM PDT [facility] Rehabilitation Medicine Daily Progress Note Date: 06/27/18 [...] cognitive impairment Current Meds: Current Facility-Administered Medications: jnmjaywd-qeminkldagmy-lphhMSYflb (TRIUMEQ) 600-50-300 mg per tablet 1 tablet (POM), 1 tablet, Oral, Nightly, Pramod Salinas MD, 1 tablet at 06/26/182020 allopurinol (ZYLOPRIM) tablet 100 mg, 100 mg, Oral, Daily, Pramod Salinas MD, 100 mg at 06/27/18 0832 apixaban (ELIQUIS) tablet 5 mg, 5 mg, Oral, Q12H, Pramod Salinas MD, 5 mg at 06/27 0533 atorvaSTATin (LIPITOR) tablet 80 mg, 80 mg, Oral, Daily, Pramod Salinas MD, 80 mg at 06/27/18 0831 Hypoglycemia Management, , , Until Discontinued AND [...] occupational therapy, speech therapy, case management, and geriatric social work professor #Rehab - -Continue PT for gait, mobility -Continue OT for ADL's, toileting, adaptive equipment -Continue INTERACTIVE MEDIA MARKETING STRATEGIST for cognition, swallow -Continue SW for discharge [...] pain complaints. I met with the patient's skilled nursing case manager and reviewed the current rehabilitation plan [...] Notes document close and ongoing Physiatric involvement; uhid-bl-canr vis its , professionally assessing the Patient, both Medically and Functionally, with the empha sis on the important interactions between our Patient's current clinical status, especially issues/barriers that may impact on the Rehabilitation Team's treatment and progress toward o ur medical and functional goals. I opine that this is important, so we may maximize our Patient's capacity to benefit from [facility] Comprehensive Inpatient Medical Rehabilitation process. The patient is seen in follow-up for evaluation and assessment of needs and ability to tole rate and benefit from an intensive rehabilitation program with our multidisciplinary-coordin ated rehabilitation team. I assessed the patient working with our rehabilitation team members and perused the team me ama' notes. The current rehabilitation treatment focus was reviewed with our patient, seek ing input, noting challenges and progress. Follow-up tomorrow morning with the full inpatient rehabilitation treatment team in [facility] is planned. Total time: 37 minutes. I spent greater than 50% of the time regarding patient care and co ordination of the Medical Rehabilitation Team treatment focus addressing these patient care needs on this date, including nursing unit/floor time, as well as time communicating with [facility] patient and treatment team as discussed above. Signed: Pramod Salinas MD Portions of this chart may have been created with [employer] voice recognition software. Occasi onal wrong-word or [...] signed by: Yessy Calderon RN 06/26/2018 6:36 Pramod Singh MD - 06/24/2018 3:19 PM PDTFormatting of this note might be different from the origi nal. [facility] Rehabilitation Medicine Daily Progress Note Date: 06/24/18 ID/CC: Reason for encounter : Physician follow-up to address the medical rehabilitation needs, issues, and problems . These include serving as the patient's attending physician while on our inpatient acute r ehabilitation service . I am responsible for managing and treating her active medical diagnoses as documented in [facility] Rehabilitation History and Physical Impressions and Progress Notes . Also I am responsible for leading and directing our Interdisciplinary Rehabilitation treatm ent Team members' efforts including management of problems with function including safety wi self-care/activities of daily living as well as [...] virus infection) Current Meds: Current Facility-Administered Medications: pimckzme-joegsixutqdf-qgiyOOMqwh (TRIUMEQ) 600-50-300 mg per tablet 1 tablet [...] Pramod Salinas MD, 300 m g at 10/04/18 1108 HYDROcodone-acetaminophen (NORCO) 5-325 mg per tablet [...] occupational therapy, speech therapy, case management, and geriatric social work professor #Rehab - -Continue PT for gait, mobility -Continue OT for ADL's, toileting, adaptive equipment -Continue INTERACTIVE MEDIA MARKETING STRATEGIST for cognition, swallow -Continue SW for discharge [...] Notes document close and ongoing Physiatric involvement; eqda-cj-mvci vis its , professionally assessing the Patient, both Medically and Functionally, with the empha sis on the important interactions between our Patient's current clinical status, especially issues/barriers that may impact on the Rehabilitation Team's treatment and progress toward o ur medical and functional goals. I opine that this is important, so we may maximize our Patient's capacity to benefit from [facility] Comprehensive Inpatient Medical Rehabilitation process. I met with the patient's nurse. We discussed and reviewed the above, as well as related clinical issues. Reviewed current rehabilitation therapy treatment documentation, noting the patient's st atus and tolerance. Rehabilitation therapy staff is continuing to coordinate and collaborate with the [facility] nursing staff to complement their [...] bowel and bladder, and coordination with the [facility] Cl[facility] managing medical co -morbidities; including Coordinate with [...] term memory, problem solving and carry over. [employer] Ambassador Respiratory Therapy Please see each of the [...] of function to allow discharge to the [facility] at the optimal level of function. Current [...] am is advanced. Specific short term and assisted Rehabilitation Team Treatment Goals will be developed, sh ared and implemented in collaboration with our patient and family/caregivers. The Lowerator Operator is the [facility] steam and power superintendent interfacing with them. Rehab Potential: Good Expected Functional Level at Discharge: Independent/Modified Independent/Supervision/Min Assist. Estimated length of stay: 14 days Discharge Plan: Discharge to pre-morbid independent living setting with the supportive care of patient's spouse/significant other/family/caregivers and community resources. Signed: Pramod Salinas MD Portions of this chart may have been created with [employer] voice recognition software. Occasi onal wrong-word or sound-alike substitutions may have occurred due to the inherent gupta itations of voice recognition software. Please read the chart carefully and recognize, using context, where these substitutions have occurred. ill, Pramod Tobar MD - 06/23/2018 12:33 PM PDT [facility] Rehabilitation Medicine Daily Progress Note Date: 06/23/18 [...] virus infection) Current Meds: Current Facility-Administered Medications: cycxwqug-mpqdevxeosac-jkraAMElqw (TRIUMEQ) 600-50-300 mg per tablet 1 tablet [...] occupational therapy, speech therapy, case management, and geriatric social work professor #Rehab - -Continue PT for gait, mobility -Continue OT for ADL's, toileting, adaptive equipment -Continue INTERACTIVE MEDIA MARKETING STRATEGIST for cognition, swallow -Continue SW for discharge [...] I met with our patient and the skilled nursing case manager, and we reviewed the overall plan of care and p rojected discharge destination. Note: My Progress Notes document close and ongoing Physiatric involvement; djsz-gz-ksqo vi sits, professionally assessing the Patient, both [...] continuing to coordinate and collaborate with the [facility]'s nursing staff to complement their therapy treatment [...] rehab therapy regimen as tolerated; therapy staff sally abrams closely to see if any fatigue complaints reported after therapy. I am directing the above issues, and coordinating with the patient's other physicians in this regards, considering relationships with the other medical co-morbidities, as well a s following up with the patient's bedside nurse, and skilled nursing case manager/long term care social worker. Total time: 37 minutes. I spent greater than 50% of the time regarding patient care and co ordination of the Medical Rehabilitation Team treatment focus addressing these patient care needs on this date, including nursing unit/floor time, as well as time communicating with [facility] patient and treatment team as discussed [...] patient is in a one-story house in [facility] with his wi fe. There is a ramp installed and otherwise there are 6 steps to enter the building. 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 He also served in the [employer] for 3-1/2 years. He is independent [...] bowel and bladder, and coordination with the [facility] management medical comorbid ities. Therapies: Physical Therapy [...] of the Comprehensive Medical Rehabilitation Program.) Clinical Account Development Executive Pharmacist Goals: Medical stability and safety with [...] collaboration with our patient and family/caregivers. The Lowerator Operator is the [facility] steam and power superintendent interfacing with them. Rehab potential is good. Estimated length of stay: 14 days. Discharge Plan: Discharge to premorbid independent living setting with the supportive car e of family/caregivers and community resources. Signed: Pramod Salinas MD 06/23/2018 12:34 Portions of this chart may have been created with [employer] voice recognition software. Occasi onal wrong-word or sound-alike substitutions may have occurred due to the inherent gupta itations of voice recognition software. Please read the chart carefully and recognize, using context, where these substitutions have occurred. documented in this encounter H&P Notes Pramod Salinas MD - 06/22/2018 5:52 PM PDT IPR Admission H&P Patient name: Sarthak Nelson : 1950 Date of Admission: 06/22/2018 Attending Physician: Blake Salinas MD Primary Care Physician: Jericho Cao MD Impairment Group: Stroke 01.1 Left body involvement (right brain) Comorbid Conditions/List medical problems: Patient Active Problem List Diagnosis Ischemic cerebrovascular accident (CVA) IDDM (insulin dependent diabetes mellitus) HTN (hypertension) CKD (chronic kidney disease) HIV (human immunodeficiency virus infection) Rehabilitation Issues: Weakness Gait dysfunction Decreased balance Sensory loss Dyscoordination Cognitive deficits Dysphagia Aphasia Visual impairment Hearing impairment Functional Deficits: Impaired mobility Impaired ADLs/iADLs Impaired communication Impaired community reintegration Impaired avocation Impaired vocation Impaired swallow CC/ID: Sarthak Nelson is a 67 y.o. male who was admitted to the inpatient acute rehabilita tion for management of his with function including deficits with self-care/activities of bryant ly living, as well as functional mobility/safely negotiating his environment. HISTORY OF PRESENT ILLNESS: Sarthak Nelson is a 67 y.o. male who was admitted to [facility] on 2017 for CVA. The patient was in his usual state of health until mid morning of June 19 20 had sudde n onset of left-sided weakness. He was seen in an outlying hospital and emergently transfer red here to [place] and admitted by Dr. Todd Sheffield MD. [...] has been on warfarin. Patient presented to [facility]. Patient was out of timeframe for TPA [...] narrowed bilater ally. Patient was transferred to [place] for further evaluation. ASSESSMENT: Principal Problem: Ischemic [...] bubble study ordered -Telemetry -Serial troponins ordered -PT/OT/INTERACTIVE MEDIA MARKETING STRATEGIST ordered -Unclear medication reconciliation, ordered, as per list which appears to be inaccurate as per patient holding Imdur, hydralazine, metoprolol for permissive hypertension -Neuro checks -Ordered Carotid Ultrasound, no images from [facility] when completed would consider carlosi ivis with [...] due to kidney injury, listed on [facility] information -Hold metoprolol for now given permissive HTN CKD 3 Cr 1.77 -Cr 2.4 in 2017 at [facility] History of CVA -On Warfarin, no ASA, atorvastatin listed?, likely emboli source in the past -Start ASA, atorvastatin FEN: Advance by bedside eval PPX: Warfarin Disp: PT/OT/INTERACTIVE MEDIA MARKETING STRATEGIST ordered He underwent brain CT scans on [...] steno sis, which is in contrast to ST gri[facility]'s ultrasound. He has pacer sonot amenable with [...] Chronic leg edema from, VENOUS STASIS: F/U [place] wound clinic DVT Prophylaxis : on NOAC Code Status : Full Code. DISCHARGE PLAN: Discharge in to Rehab tomorrow . Discussed with patient and staff Ying Giron He has been stabilized acutely and cleared for full inpatient medical rehabilitation servic es. Review of Systems: Constitutional - denies fevers/chill ; with activity he notes increased fatigue Eyes - denies diplopia; and times he notes blurred or double vision ENT denies sore throat; sinus stroke he does have some swallowing difficulty Card - denies CP, denies palpitations Pulm - denies dyspnea, cough Abd - denies n/v, denies diarrhea/constipation Vascular - denies swelling, denies cold extremities Neuro - Please see the review of systems discussed above in the history of present illness. In addition, the patient has had improvement in his right-sided weakness from the remote s trokes. However he states that the left-sided weakness with the stroke has not improved. H e is right-handed.. MSK - denies muscle pain, denies spasticity, he has low back pain. Endocrine - denies heat/cold intolerance Skin - denies open sores Psych - denies depression, anxiety - denies incontinence, dysuria, frequency All denies rash, denies pruritis Hematologic- denies easy bruising or bleeding, denies weight loss PMHx: (per chart review confirmed with pt) [...] Route Frequency Provider Last Rate Last Dose cueirgms-bsxvyxxijewv-mnwaCSOrnx (TRIUMEQ) 600-50-300 mg per tablet 1 tablet (POM) 1 t ablet Oral Nightly Pramod Salinas MD 1 tablet at 06/22/18 2244 allopurinol (ZYLOPRIM) tablet 100 mg 100 mg Oral Daily Pramod Salinas MD apixaban (ELIQUIS) tablet 5 mg 5 mg Oral Q12H Pramod Salinas MD 5 mg at 06/23/18 0707 atorvaSTATin (LIPITOR) tablet 80 mg 80 mg Oral Daily Pramod Salinas MD dextrose 50% injection 12.5 g 12.5 g Intravenous PRN Pramod Salinas MD finasteride (PROSCAR) tablet 5 mg 5 mg Oral Daily Pramod Salinas MD gabapentin (NEURONTIN) capsule 300 mg 300 mg Oral BID Pramod Salinas MD 300 mg a t 06/22/18 2225 HYDROcodone-acetaminophen (NORCO) 5-325 mg per tablet 1-2 tablet 1-2 tablet Oral Q4H P RN Pramod Salinas MD insulin glargine (LANTUS SOLOSTAR) 100 units/mL injection (pen) 25 Units 25 Units Subc utaneous 2 times per day Pramod Salinas MD 25 Units at 06/22/18 2235 insulin lispro (humaLOG KWIKPEN) 100 units/mL injection (pen) 0-6 Units 0-6 Units Subc utaneous 4x Daily WC and HS Pramod Salinas MD insulin lispro (humaLOG KWIKPEN) 100 units/mL injection (pen) 15 Units 15 Units Subcut aneous TID WC Pramod Salinas MD isosorbide mononitrate (IMDUR) ER tablet 30 mg 30 mg Oral Daily Pramod Salinas MD metoprolol tartrate (LOPRESSOR) tablet 25 mg 25 mg Oral BID Pramod Salinas MD 25 mg at 06/22/18 2226 zolpidem (AMBIEN) tablet 5 mg 5 mg [...] patient is in a one-story house in [facility] with his . There is a ramp installed and otherwise there are 6 steps to enter the building. 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 He also served in the [employer] for 3-1/2 years. He is independent [...] Body Score: 2 FIM Toileting Score: 2 Physical Exam: BP 129/78 | Pulse 78 | Temp 35.8 C (96.4 F) (Axillary) | Resp 16 | SpO2 98% There is no height or weight on file to calculate BMI. GENERAL: Alert, morbidly obese, cooperative;. no acute distress. HEAD: NC, AT. Eyes: Conjunctiva clear; pupils round, no drainage. ENMT: Nasal and oral mucosa moist; oropharynx clear. NECK: Supple. Thick, Trachea midline. No Thyromegaly. No JVD. LYMPHATIC No significant adenopathy noted in neck, axillae or groin. RESPIRATORY: Normal respiratory effort; breathing comfortably. On auscultation, breath soun ds are distant, but clear. No wheezes or crackles. CARDIAC: irregular rate and rhythm without murmur. Peripheral pulses are symmetric at carot ids, groin; diminished but symmetric at wrists and ankles. Swelling in his limbs, lower extremities worse than upper extremities. It seems to be more from adiposity than edema. . ABDOMEN: Soft, nontender with normoactive bowel sounds. Liver/Spleen nontender. No abnormal masses. RECTAL: Not Done. EXTREMITIES: Symmetric without deformity. No clubbing or cyanosis. BACK: Nontender. SKIN: Chronic stasis dermatitis changes over Feet. Otherwise Warm and dry, Intact. NEUROLOGIC: Awake, alert, and oriented to person, [...] the left and withdrawal on the right Currently the patient requires assistance with self-care and functional mobility, including station and gait. No abnormal movements Physical exam compared to the preadmission screen: Similar Labs: Recent Results (from the past 48 hour(s)) POC Glucose Collection Time: 06/22/18 22:33 Result Value Ref Range Glucose, POC 141 (H) 70 - 109 mg/dL B Type Natriuretic Peptide Collection Time: 06/23/18 5:27 Result Value Ref Range BNP 101 (H) <100 pg/mL CBC with Differential Collection Time: 06/23/18 5:27 Result Value Ref Range WBC 10.2 4.0 [...] 0.00 - 0.01 K/uL Comprehensive Metabolic Panel Collection Time: 06/23/18 5:27 Result Value Ref Range NA 137 136 [...] (L) 0.8 - 2.0 BUN/CREA 16.9 Prealbumin Collection Time: 06/23/18 5:27 Result Value Ref Range Prealbumin 18 18 - 38 mg/dL POC Glucose Collection Time: 06/23/18 7:06 Result Value Ref Range Glucose, POC 105 70 - 109 mg/dL Imaging: Recent Results [...] Chino MD Electronically signed: 06/21/2018 2:42 PM Assessment and Rehab Plan: The patient has deficits in attention, executive functioning, memory, cognitive communicati on, coordination, ambulation, swallowing, strength, ADLs, and IADLs. These diagnoses and impairments support that admission is reasonable and necessary. It is safe to continue therapies but the patient is medically complex and requires 24hr MD and [facility] care. # Rehabilitation - The patient will receive the following therapies: -- PT: impairments in gait, transfers, bed mobility, ambulation, ROM, strengthening, endura nce. -- OT: impairments in ADLs and iADLs, ROM, strengthening. -- INTERACTIVE MEDIA MARKETING STRATEGIST: impairments in cognition, communication, swallow/dysphagia -- SW: discharge planning Impression : 1. Principal rehabilitation impairment : Acute [...] with anxiety and depression 21. Psychosocial stressors # Pain: -MSK pain Tylenol, PRN narco/oxycodone/mild muscle relaxants -For Neuropathic pain, consider gabapentin #GI: -Peptic ulcer disease prophylaxis -PRN zofram for nausea #Bladder/Bowel management: increased risk of constipation -Cont bowel regimen -Daily docusate and senna -PRN milk of magnesia and magnesium citrate #Atrial fibrillation treatment and DVT prophylaxis: Eliquis 5 mgBID -LLOYD's #Diet: Diet and Supplements Diet Diet consistent carb; dysphagia mechanical; nectar thick; Effective Now Number of Occurrences: Until Specified Order Comments: Level 2 mechanical soft chopped foods (Soft, chopped foods cut into piece s <1/2". No breads. No raw fruits or vegetables) Harrold thick liquids. Straws ok. Order Questions: Type Diet consistent carb Texture modifications dysphagia mechanical Fluid consistency modifications nectar thick #IV: accesses Active Peripheral IVs No matching active lines, drains, or airways #Code Status: Full Code Plan : Patient demonstrates functional deficits in strength, balance, functional mobility and safe ly negotiating his environment, coordination, ADL's and cognition. I opine that the patient will benefit from our acute inpatient rehabilitation program to en sure patient's safety and maximize outcome prior to discharge. Reviewed current laboratory results. Reviewed recent diagnostic studies. Reviewed current medications, and addressed medication management. Reviewed current rehabilitation therapy treatment documentation, noting the patient's s tatus and tolerance. Rehabilitation therapy staff is continuing to coordinate and collaborate with the [facility]'s nursing staff to complement their therapy treatment [...] IC as indicated. DVT Prophylaxis. Per protocol. Rehabilitation. Continue early rehab therapy regimen as tolerated; therapy staff sally abrams closely to see if any fatigue complaints reported after therapy. I am directing the above issues, and coordinating with the patient's other physicians in this regards, considering relationships with the other medical co-morbidities, as well a s following up with the patient's bedside nurse, and skilled nursing case manager/long term care social worker. See orders document ed in this encounter Consult Notes Ashley Hodge RN - 06/24/2018 12:45 PM PDTAssociated Order(s): IP CONSULT TO WOUND OS CARO Murphy to assess patient due therapy session and physician was with patient. Spoke with RN and OT who stated ulcerations were decreasing in size since previous visit and [facility] ent was tolerating the Aquacel Ag well under the lymphedema wraps. Plan- Continue with daily lymphedema compression wraps as evaluated and treated by OT, with use of Aquacel AG over ulcerations. Patient to continue with home health or [facility] for [facility] p wound care post discharge as needed. Ashley Hodge RN [facility] Inpatient Wound Care Ext [phone] docume nted in this encounter Miscellaneous Notes Plan of Care - Carmen Fraser RN - 07/01/2018 12:50 PM PDTProblem: Patient Care Overlarry w (Adult) Goal: Care Team Goals & Evaluation PROBLEM-RELATED GOALS: 1. Ed will remain free from all falls and injuries through 07/04/18 2. Ed's skin will remain intact and any impairments will show signs of healing by 3. Ed will ambulated with FWW and physical therapy by 07/04/18 4. Ed will have no deterioration in his neuro assessment through 07/04/18 5. Ed will be continent of bowel and bladder and will not have any accidents through 6. Ed will have no s/sx of aspiration through 07/04/18 7. Pt will be Mod I in transfers and amb using bariatric FWW by 07/14/18. 8. Pt will tolerate dysphagia advanced foods and nectar thick liquids with no overt s/sx of airway compromise by 07/04/2018 9. Ed will use his own NIV during this admit. Reevaluate goal by 07-06-2018 STRATEGY TO ACHIEVE GOALS: - Perform purposeful rounding, ensure call light is within reach and provide supervision fo r all OOB activity - Assist patient with repositioning in bed, perform incontinence care if needed and monitor for signs of skin breakdown - Encourage active participation in PT/OT - Perform neuro assessment Qshift and notify MD of any decline - Assist with toileting, encourage fluid intake for bowel and bladder function - Provide altered textures and thickened fluids and ensure patient is sitting upright for a ll oral intake - Full participation in PT session in functional mobility training. - Full participation in ST sessions - Rt to assist with home NIV unit as indicated and upon request. Outcome: Adequate for Discharge Date Met: 07/01/18 Goal Evaluation: Ed is discharging to [facility] in [place]. His paperwork was sent with him kendra langston with his belongings. He has been a little lethargic/flat today but appears to be happy t o be leaving. lan of Care - Alaina Figueroa MSW - 07/01/2018 11:58 AM PDTCase Management Discharge Note Summary: This CM met with the patient to provide him with LAURENT and Medical Passport. The patient dec lined having questions about his discharge. Transportation arranged with [facility]. Rehabilitation Kenyatta Within3 to be used to cover $125 cost of bariatric, w/c transport to [facility]. SNF transfer orders, Discharge Summary, PASRR, prescriptions, and Medication list faxed to [facility]. SNF packet placed in patient's ghost chart. RN at [facility] provided with [facility] RN contact number for Nurse to Nurse. Discharge DME Status None, SNF discharge Planned Discharge Planned Disposition: Longterm Facility - [facility] [address] [place] [address] Follow-up appointments and services [facility] to follow for d/c planning Electronically signed by: KODI Todd 07/01/2018 20:37 lan of Care - Alaina Rogers MSW - 07/01/2018 11:52 AM PDTFormatting of this note might be different from the o riginal. Medical Passport NAME:Sarthak Castañedawell : 1950 Gender: male Extended Emergency Contact Information Primary Emergency Contact: Aileen Nelson Address: [address] [place] [address] of [place] [employer] Relation: Spouse Advance Directives: Yes - At other location Attending Provider: Pramod Salinas MD Insurance: Payor/Plan Subscr Sex Relation Sub. Ins. ID Effective Group Num 1. [employer]* SARTHAK NELSON * 1950 Male [id number] 05/21/[address] 2. [place]ICARE - [place]* SARTHAK NELSON * 1950 Male [id number] 09/20/1996 [address] Hospital Preference: [facility] Personal Health History Allergies Allergen Reactions Amoxicillin Augmentin- throat swelling Chlorhexidine Itching Other reaction(s): VESICLES IN SKIN Ciprofloxacin Other reaction(s): ACUTE INTERSTITIAL NEPHRITIS Simvastatin Rash and Itching Sulfa Antibiotics Tigecycline Itching and Hives Cefazolin Itching and Hives Cephalexin Itching Niacin Other reaction(s): FLUSHING Sulfamethoxazole-Trimethoprim Itching Acute interstitial nephritis Bee Venom Rash Tape [Adhesive & Tape] Triamcinolone Rash Vancomycin Itching Immunization History Administered Date(s) Administered HEP B, 3 DOSE (ADULT) 11/30/2012, 11/22/2013, 07/25/2014 INFLUENZA 65 Y OR >, TRIVALENT HIGH-DOSE 06/07/2017 INFLUENZA PF QUAD(PED/ADOL/ADULT),PSKT or VIAL 06/30/2018 INFLUENZA PF TRIVALENT(PED/ADOL/ADULT), PSKT 07/30/2015, 09/02/2015 INFLUENZA, D0T3-57, UNSPECIFIED 08/16/2009, 10/03/2009 INFLUENZA, UNSPECIFIED FORMULATION 08/29/2002, 08/21/2005, 08/03/2006, 07/11/2007, 06/21, 05/27/2009, 06/28/2010, 08/05/2011, 06/06/2012, 08/02/2013, 07/25/2014 Influenza, Whole 07/12/2001, 08/29/2002, 06/25/2003 PNEUMOCOCCAL CONJUGATE 13-VALENT (PCV13) 04/05/2013, 07/30/2015 PNEUMOCOCCAL POLYSACCHARIDE 23-VALENT (PPSV23) 05/11/2005, 08/02/2013 PNEUMOCOCCAL, UNSPECIFIED FORMULATION 04/12/2001, 05/11/2005, 08/02/2013 TDAP, (ADOL/ADULT) 04/12/2001, 08/05/2011 TETANUS TOXOID ABSORBED, (ADOL/ADULT) 04/12/2001 ZOSTER, 1 DOSE (ADULT) 08/05/2011 Patient Active Problem List Diagnosis Ischemic cerebrovascular accident (CVA) IDDM (insulin dependent diabetes mellitus) HTN (hypertension) CKD (chronic kidney disease) HIV (human immunodeficiency virus infection) Acute left hemiparesis Dysphagia due to recent cerebral infarction Neurogenic bladder Morbid obesity Diabetic peripheral neuropathy RACHELLE treated with BiPAP Mild cognitive impairment No past medical history on file. No past surgical history on file. Social History Social History Marital status: Spouse name: N/A Number of children: N/A Years of education: N/A Social History Main Topics Smoking status: Former Smoker Packs/day: 1.50 Years: 17.00 Quit date: 09/20/1983 Smokeless tobacco: Former User Quit date: 09/25/1983 Comment: quit in 1983 Alcohol use Not on file Drug use: Unknown Sexual activity: Not on file Other Topics Concern Not on file Social History Narrative No narrative on file Functional Status Transfers Bed to Chair verbal cues required, contact guard assist, 1 person + 1 person to manage equipment Chair to Bed verbal cues required Sit to Stand contact guard assist, verbal cues required, 1 person + 1 person to manage equipment Gait Gait Comments: initially tried a bariatric FWW w/o platform attachment but pt c/o pain on ( L) wrist and prefers to use a platform attachment. Verbal cues for inc. step width and slow ing down when turning to prevent the AD from tipping. Seated rest period d/t fatigue. Level of Hammond: contact guard assist, 1 person + 1 person to manage equipment, verba l cues required Assistive Device: 2 wheeled walker (FWW), bariatric, platform attachment Distance (feet): 50' x 2 Additional Documentation: pattern, safety, impairments Gait Pattern Analysis: 3-point gait Gait Deviations: alize decreased, double stance time increased, limb motion velocity decr eased, step length decreased, nhm-ht-[id number] clearance decreased, weight-shifting ability decr eased, stride length decreased Safety Issues: balance decreased during turns, sequencing ability decreased, step length de creased, weight-shifting ability decreased, loses balance backward, steps too close to kell tive device, other (see comments) Impairments: sensation decreased, strength decreased, impaired balance, coordination impair ed, motor control impaired, postural control impaired, pain Stairs Stairs, Comment: step up/down on a 2" platform to simulate entrance of the house. x 2P CGA Level of Hammond: not tested, not appropriate to assess, unable to perform Dressing Upper Body UB Dressing Assess/Train, Comment: Pt doffed clod puller shirt with SBA, donned clod puller brayan rt with Min A for adjustment in back. Pt encouraged to reach back, however pt c/o of pain an d stated "I can't reach back there." UB Dressing, Level of Hammond: set up required, tactile cues required, verbal cues req uired, minimal assist (75% patient effort) Assistive Device: none UB Dressing Assess/Train, Position: sitting UB Dressing Assess/Train, Impairments: muscle tone abnormal, decreased flexibility, ROM dec reased, sensation decreased, strength decreased, coordination impaired, motor control impair ed, postural control impaired, sensory feedback impaired, pain Lower Body LB Dressing Assess/Train, Comment: Agreeable to [facility] scrub pants. Struggled to clod puller stockinged feet but declined to remove stockings. Declined to use suggestions of fered by OT to ease process. LB Dressing, Level of Hammond: maximal assist (25% patient effort), verbal cues requir ed, set up required Assistive Device: dressing stick LB Dressing Assess/Train, Position: sitting, supported standing LB Dressing Assess/Train, Impairments: muscle tone abnormal, decreased flexibility, ROM dec reased, sensation decreased, strength decreased, impaired balance, coordination impaired, mo tor control impaired, postural control impaired, sensory feedback impaired Bathing Bathing Assess/Train, Comment: Pt completed bathing tasks with Mod A, assist with thoroughn ess in abdomen area, BLE for thoroughness d/t increased lotion residue, and thoroughness for buttocks. Pt reports that PLOF, a towel with soap is placed underneath buttocks, and pt brayan fts weight/slides on towel to wash buttocks. Towel with soap placed on chair, pt able to was h buttocks, though required light assist for thoroughness. Pt is demonstrating improvement w ith use of LUE to wash RUE and armpit area, though pt c/o of pain during LUE movements. Bathing, Level of Hammond: moderate assist (50% patient effort), set up required, verb al cues required Assistive Device: grab bars, hand-held shower head, shower chair with back Bathing Assess/Train, Position: sitting Bathing Assess/Train, Impairments: muscle tone abnormal, decreased flexibility, ROM decreas ed, sensation decreased, strength decreased, impaired balance, coordination impaired, motor control impaired, postural control impaired, sensory feedback impaired, pain (body habitus) Diet Diet/Nutrition Prescription: consistent carb, mechanical/dental soft Specialty Diet/Nutrition Prescription: liquid level-nectar (pt refuses to have thickener) Swallowing Recommended Liquid Texture: thin liquids Recommended Solid Texture: dysphagia advanced Recommended Medication Delivery: whole pills with thickened liquids, whole pills with puree , crushed pills with puree, if able Recommended Feeding/Eating Techniques: alternate between small bites and sips of food/liqui d, oral care before and after each meal, maintain upright posture during/after eating for 30 mins, one small sip or bite at a time, slow rate, tuck chin during every swallow Corrective Lens: Hearing Aid: Electronically signed by: KODI Todd 07/01/2018 11:52 lan of Care - Karthik Lerner, PT - 07/01/2018 11:30 AM PDT Problem: Patient Care Overview (Adult) Goal: Care Team Goals & Evaluation PROBLEM-RELATED GOALS: 1. Ed will remain free from all falls and injuries through 07/04/18 2. Ed's skin will remain intact and any impairments will show signs of healing by 3. Ed will ambulated with FWW and physical therapy by 07/04/18 4. Ed will have no deterioration in his neuro assessment through 07/04/18 5. Ed will be continent of bowel and bladder and will not have any accidents through 6. Ed will have no s/sx of aspiration through 07/04/18 7. Pt will be Mod I in transfers and amb using bariatric FWW by 07/14/18. 8. Pt will tolerate dysphagia advanced foods and nectar thick liquids with no overt s/sx of airway compromise by 07/04/2018 9. Ed will use his own NIV during this admit. Reevaluate goal by 07-06-2018 STRATEGY TO ACHIEVE GOALS: - Perform purposeful rounding, ensure call light is within reach and provide supervision fo r all OOB activity - Assist patient with repositioning in bed, perform incontinence care if needed and monitor for signs of skin breakdown - Encourage active participation in PT/OT - Perform neuro assessment Qshift and notify MD of any decline - Assist with toileting, encourage fluid intake for bowel and bladder function - Provide altered textures and thickened fluids and ensure patient is sitting upright for a ll oral intake - Full participation in PT session in functional mobility training. - Full participation in ST sessions - Rt to assist with home NIV unit as indicated and upon request. IRF Physical Therapy Plan of Care Treatment, Discharge Note Summary: Sarthak has been participating in physical therapy for treatment of Impaired bal ance, gait instability, (L) sided neglect, (L) zena paresis who was admitted d/t CVA. 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 Hx of previous C [facility] affecting (R) side. Ed demo'd poor participation and engagement in his own care and ADLs and did not meet any of his STGs or LTGs. He had poor self awareness of deficits and was un able to articulate why his caregivers struggle to help him take care of himself. Patient may do well with male caregivers according to MD. Emphasis of session included mobility testi ng for DC to SNF. Patient demonstrates progress towards functional goals as evidenced by nadege garcia participation with therapies and dictation of own care and abilities/williness to care for self. Sarthak has shown adequate progress towards goals and is to discharge to SNF at t his time. Physical Therapy Discharge Recommendations are: Recommended discharge disposition: long-term facility Post discharge physical therapy recommendation: home health Equipment Recommendations: bariatric, 2 wheeled walker (FWW), platform attachment, wheelch air, wheelchair cushion Planned Interventions: balance training, bed mobility training, gait training, home exerci se program, lumbar stabilization, manual therapy techniques, motor coordination training, st air training, strengthening, ROM (Range of Motion), postural re-education, patient/family ed ucation, neuromuscular re-education, transfer training, wheelchair management/propulsion tra ining Frequency: daily (1-2x/day) Patient Status/Goals: Reflects last filed data and may be from multiple contributors. Bed Mobility extra time and effor to use overhead trapeze, bed rails and bed controls. Does not use LUE, complains shoulder is "messed up" Assistive Device: bed rails, HOB elevated, overhead trapeze Roll Left, Level of Hammond: stand by assist Roll Right, Level of Hammond: stand by assist Scoot/Bridge, Level of Hammond: not tested Supine to Sit, Level of Hammond: minimal assist (75% patient effort), verbal cues requ ired, set up required Sit to Supine, Level of Hammond: verbal cues required, stand by assist Safety Issues: decreased use of arms for pushing/pulling, decreased use of legs for bridgin g/pushing, impaired trunk control for bed mobility, cognitive deficits limit understanding Impairments: muscle tone abnormal, decreased flexibility, strength decreased, impaired demi nce, coordination impaired, motor control impaired, postural control impaired, sensory feedb ack impaired, pain, ROM decreased Transfers uses bedside chair armrests or FWW with arm trough on L for transfers and pivot. Bed-Chair, Level of Hammond: minimal assist (75% patient effort) Chair-Bed, Level of Hammond: minimal assist (75% patient effort) [id number], Assistive Device: 2 wheeled walker (FWW), platform attachment, bariatric Sit-Stand, Level of Hammond: contact guard assist, verbal cues required, 1 person + 1 person to manage equipment Stand-Sit, Level of Hammond: contact guard assist, verbal cues required, tactile cues required [id number]-[id number]-Lin, Assistive Device: platform attachment, 2 wheeled walker (FWW), bariatric Safety Issues: balance decreased during turns, sequencing ability decreased, step length de creased, weight-shifting ability decreased, loses balance backward, steps too close to kell tive device, other (see comments) Impairments: muscle tone abnormal, decreased flexibility, ROM decreased, sensation decrease d, strength decreased, impaired balance, coordination impaired, motor control impaired, post ural control impaired, sensory feedback impaired, pain Gait bariatric FWW w/o platform attachment short distances only Level of Hammond: contact guard assist Assistive Device: 2 wheeled walker (FWW), bariatric, platform attachment Distance (feet): 25 ft x2 Gait Pattern Analysis: 3-point gait Gait Deviations: alize decreased, double stance time increased, limb motion velocity decr eased, step length decreased, iul-[id number] clearance decreased, weight-shifting ability decr eased, stride length decreased Safety Issues: balance decreased during turns, sequencing ability decreased, step length de creased, weight-shifting ability decreased, loses balance backward, steps too close to kell tive device, other (see comments) Impairments: sensation decreased, strength decreased, impaired balance, coordination impair ed, motor control impaired, postural control impaired, pain Stairs 2 inch platform only with min A overall with FWW with R arm trough Level of Hammond: minimal assist (75% patient effort) Assistive Device: 2 wheeled walker (FWW), platform attachment Impairments: impaired balance Wheelchair Mobility does not self propel manual WC. pushed backward wtih 1 foot approx 1 foot, but does not pro pel fwd. Type: recline Cushion: general use Surface: indoor, level Distance (feet): 1 Speed: unsafe, backwards, severely impulsive Level of Hammond: dependent ( less than 25% patient effort) Propulsion Technique: other (see comments) (use of single leg for push back once only) Components: brakes Components Management Assistance: dependent (less than 25% patients effort) Balance gait velocity= 0.2 m/sec. Sitting Balance: Static: good balance Sitting Balance: Dynamic: good balance Standing Balance: Static: fair balance Standing Balance: Dynamic: fair balance Therapeutic Exercise refused to participate Functional Endurance fair, when cooperative ROM L LE ROM: Grossly WFL for body habitus type R LE ROM: Grossly WFL for body habitus type Strength L LE Strength: hip flexion 2+/5, knee ext 3+/5, DF 3+/5 R LE Strength: grossly graded 4-/5 PT Goal Review Date Most Recent Value STG Review Date 06/30/18 at 06/23/2018 0915 LTG Review Date 07/14/18 at 06/23/2018 0915 [id number] Goal Most Recent Value STG Status not met at 06/30/2018 1430 STG Hammond Level supervised at 06/23/2018 0915 STG Assistive Device bed rails, overhead trapeze at 06/23/2018 0915 LTG Status not met at 07/01/2018 1130 LTG Hammond Level modified independent at 06/23/2018 0915 LTG Assistive Device bed rails, overhead trapeze at 06/23/2018 0915 [id number]-[id number]-Cvw Goal Most Recent Value STG Status not met at 06/30/2018 1430 STG Hammond Level contact guard assist at 06/23/2018 0915 STG Assistive Device 2 wheeled walker (FWW), bariatric at 06/23/2018 0915 LTG Status not met at 07/01/2018 1130 LTG Hammond Level modified independent at 06/23/2018 0915 LTG Assistive Device 2 wheeled walker (FWW), bariatric, 4 wheeled walker (4WW) at 06/23/20 18 0915 [id number] Goal Most Recent Value STG Status -- [.] at 06/30/2018 1430 Gait Goal Most Recent Value STG Status not met at 06/30/2018 1430 STG Hammond Level contact guard assist at 06/23/2018 0915 STG Assistive Device bariatric, 2 wheeled walker (FWW) at 06/23/2018 0915 STG Comments 50' at 06/23/2018 0915 LTG Status not met at 07/01/2018 1130 LTG Hammond Level modified independent at 06/23/2018 0915 LTG Assistive Device 2 wheeled walker (FWW), bariatric, 4 wheeled walker (4WW) at 06/23/20 18 0915 LTG Distance (feet) 50' x 3 at 06/23/2018 0915 LTG Comments ramps at 06/23/2018 0915 Wheelchair Goal Most Recent Value STG Status not met at 07/01/2018 1130 STG Pt will propel a manual wheelchair 50 feet with Min A to improve his independence at 1 1206 LTG Status not met at 07/01/2018 1130 LTG Pt will propel a manual wheelchair 100 feet with Sup to improve his independence at 1206 Electronically signed by: Karthik Martinez, PT, 07/01/2018 17:33 NF Transfer - H ill, Pramod Tobar MD - 07/01/2018 11:02 AM PDTFormatting of this note might be different fr om the original. [facility] FACILITY TRANSFER ORDERS Patient Name: Sarthak Nelson Patient : 1950 Gender: male Date of Admission: 06/22/2018 Date of Discharge: 07/01/2018 Admitting Provider: Pramod Salinas, * Discharging Provider: Pramod Salinas MD Consultants: PCP: [facility] transferring to: [facility] Provider after transfer: Physician at the [facility] CODE STATUS: [x] Attempt CPR [] Do not resuscitate If patient is pulseless and not breathing, RN/PHYSICIST [employer] may pronounce . Advanced Directives included: [] POLST [] MOLST/MOST [] Comfort One ([place]) [] Other: Code status discussed with: [x] Patient [] Spouse/Family [] DPOA [] Other: Name of person discussed with: Date discussed: Isolation/Infection Precautions: [x] None Height: Height: 188 cm (6' 2.02") Wt Readings from Last 3 Encounters: 06/29/18 (!) 170.2 kg (375 lb 3.2 oz) 06/19/18 (!) 169.5 kg (373 lb 10.9 oz) Admitting Diagnosis: Patient Active Problem List Diagnosis Ischemic cerebrovascular accident (CVA) IDDM (insulin dependent diabetes mellitus) HTN (hypertension) CKD (chronic kidney disease) HIV (human immunodeficiency virus infection) Acute left hemiparesis Dysphagia due to recent cerebral infarction Neurogenic bladder Morbid obesity Diabetic peripheral neuropathy RACHELLE treated with BiPAP Mild cognitive impairment Allergies Allergen Reactions Amoxicillin Augmentin- throat swelling Chlorhexidine Itching Other reaction(s): VESICLES IN SKIN Ciprofloxacin Other reaction(s): ACUTE INTERSTITIAL NEPHRITIS Simvastatin Rash and Itching Sulfa Antibiotics Tigecycline Itching and Hives Cefazolin Itching and Hives Cephalexin Itching Niacin Other reaction(s): FLUSHING Sulfamethoxazole-Trimethoprim Itching Acute interstitial nephritis Bee Venom Rash Tape [Adhesive & Tape] Triamcinolone Rash Vancomycin Itching Most Recent Immunizations Administered Date(s) Administered HEP B, 3 DOSE (ADULT) 07/25/2014 INFLUENZA 65 Y OR >, TRIVALENT HIGH-DOSE 06/07/2017 INFLUENZA PF QUAD(PED/ADOL/ADULT),PSKT or VIAL 06/30/2018 INFLUENZA PF TRIVALENT(PED/ADOL/ADULT), PSKT 09/02/2015 INFLUENZA, [id number], UNSPECIFIED 10/03/2009 INFLUENZA, UNSPECIFIED FORMULATION 07/25/2014 Influenza, Whole 06/25/2003 PNEUMOCOCCAL CONJUGATE 13-VALENT (PCV13) 07/30/2015 PNEUMOCOCCAL POLYSACCHARIDE 23-VALENT (PPSV23) 08/02/2013 PNEUMOCOCCAL, UNSPECIFIED FORMULATION 08/02/2013 TDAP, (ADOL/ADULT) 08/05/2011 TETANUS TOXOID ABSORBED, (ADOL/ADULT) 04/12/2001 ZOSTER, 1 DOSE (ADULT) 08/05/2011 Diet: [x] As tolerated INTERACTIVE MEDIA MARKETING STRATEGIST may upgrade or downgrade diet as condition Indicates. [x] RN may downgrade diet as indicated. Type: [x] Continue current diet of: Diet and Supplements Diet Diet consistent carb; dysphagia advanced; thin liquids allowed; Effective Now Number of Occurrences: Until Specified Order Comments: RED TRAY for supervision to use swallow strategies. Dysphagia advanced fo ods. Foods cut up into 1" pieces. Extra sauces and gravies. No tough hard crunchy raw foods. Moist breads. Thin liquids by cup. Order Questions: Type Diet consistent carb Texture modifications dysphagia advanced Fluid consistency modifications thin liquids allowed [] Other: Consistency/Precautions: [] Whole [] Thin Liquids [] Cut-up [] Harrold Thick [] Advanced Chopped [] Honey Thickened [] Chopped [] Advanced Ground [] 1:1 feedings [] Ground/Pureed [] Other: Tube Feedings: [] PEG [] GT [] JT [] NGT [] Formula type: (Account Development Executive may change/substitute if indicated). [] Continuous Rate: ml/hr, infusing hrs/day [] Bolus feeds: ml every hours [] Additional water: ml every hours Respiratory: [] BiPAP at night & PRN SOB. Settings: O2 L bleed Dx: [x] CPAP at night & PRN SOB. Settings: O2 L bleed Dx: [] Suction & Pulmonary toilet PRN secretion/sputum management. Dx: [] Incentive Spirometer QID and PRN while awake. Duration: Dx: [] Tracheostomy management per protocol [] Oxygen: Lpm NC/Trach [] Continuous [] NOC [] Humidified [] prn SaO2 < % [] prn SOB/dyspnea Dx: [] Other: Dx: Bladder: [] Follow nursing protocol for recent silva removal [x] Silva catheter managment per nursing protocol - Indication: [] Permanent [x] Temporary [] Remove silva catheter on and follow nursing protocol for recent silva remova l. [] Straight catheter every hour(s) and record amount drain Dx: [] Bladder scan every hour(s) and straight cath for > ml Dx: [] Suprapubic catheter management Dx: Other Lines, Tubes and Drains: (to be managed by nursing protocol) [] IV access and location: [] Permanent [] Temporary: Instructions/indications for removal of IV access: [] May use Alteplase per protocol PRN occluded central venous catheter [] Colostomy [] Ileostomy [] Urostomy [] Nephrostomy [] Dialysis Access - Type & Location: [] Drains - Type & Location: [] Other: Activity/Therapies: [x]WBAT [] Weight Bearing Restricted (specify limb(s)): [x] PT Evaluation & Management for: [x] OT Evaluation & Management for: [x] INTERACTIVE MEDIA MARKETING STRATEGIST Evaluation &Management for: [] Other: Wound/Skin Care: [x] Follow current recommendations of the wound team for treatment. [] Follow standard nursing protocols for wound care. [] Wound Vac management per nursing protocol. Indication: Location: Settings: Change frequency: & prn [] Other: Labs/Imaging: [] PT/INR: Frequency: Dx: Goal INR: Duration of therapy: [x] Fingerstick glucose checks: ___ac + hs Dx: DM [] Other: Test/Study Needed/Frequency Diagnosis/Indication Follow up appointments and consultations: Date/Time: Date/Time I have advised this patient that he/she not use tobacco products. TB screening: Upon admission the 1st and 2nd step TST will be done as per protocol if Resid ent has no history of TB or a past positive TST. Pharmacist may substitute equivalent Rx based on facility or insurance formulary as needed unless otherwise specified by physician. Please write "JOHN" (Dispense as written) if a medi cation should not be substituted. Please make sure to write a diagnosis for ALL medications continued on transfer. Antibioti cs require a stop date. If medications do not contain a SIG, make sure doses/routes and ashutosh edule is included. Medication Orders New Medications Details Order Next Dose Due apixaban 5 mg tablet Take 1 tablet by mouth every 12 hours. aka: ELIQUIS By: Pramod Salinas MD Quant: 60 tablet atorvaSTATin 80 MG tablet Take 1 tablet by mouth Daily. aka: LIPITOR By: Pramod Salinas MD Quant: 30 tablet bacitracin 500 UNIT/GM ointment Apply to the open sore on the lateral right calf By: Pramod Salinas MD Quant: 1 Application diphenhydrAMINE 50 mg capsule Take 1 capsule by mouth daily (after dinner). aka: BENADRYL By: Pramod Salinas MD Quant: 30 capsule insulin lispro 100 units/mL injection (pen) Inject 0-6 Units under the skin 4 times daily (with meals and nightly). aka: humaLOG KWIKPEN By: Pramod Salinas MD Quant: 2 pen insulin lispro 100 units/mL injection (pen) Inject 15 Units under the skin 3 times daily (with meals). aka: humaLOG KWIKPEN By: Pramod Salinas MD Quant: 3 pen metoprolol tartrate 25 mg tablet Take 1 tablet by mouth 2 times daily. aka: LOPRESSOR By: Pramod Salinas MD Quant: 60 tablet mirtazapine 7.5 MG tablet Take 2 tablets by mouth daily (after dinner). aka: REMERON By: Pramod Salinas MD Quant: 30 tablet Changed Medications Details Order Next Dose Due HYDROcodone-acetaminophen 5-325 mg per tablet Take 1 tablet by mouth every 6 hours as needed for Pain. What changed: when to take this aka: NORCO By: Pramod Salinas MD Quant: 50 tablet isosorbide mononitrate 30 mg ER tablet Take 1 tablet by mouth Daily. What changed: medication strength aka: IMDUR By: Pramod Salinas MD Quant: 30 tablet Unchanged Medications Details Order Next Dose Due dbiyiocw-vrqkcfqzzfyv-qfdkOJCuqm 600-50-300 mg per tablet Take 1 tablet by mouth Daily. Indications: HIV Disease aka: TRIUMEQ allopurinol 100 mg tablet Take 100 mg by mouth Daily. aka: ZYLOPRIM finasteride 5 mg tablet Take 1 tablet by mouth Daily. aka: PROSCAR By: Pramod Salinas MD Quant: 30 tablet gabapentin 600 MG tablet Take 300 mg by mouth 2 times daily. aka: NEURONTIN [place] 450 MG Caps Take 900 mg by [...] ALDACTONE warfarin 5 mg tablet aka: COUMADIN I, Pramod Salinas MD, certify that post hospital long-term care is medically necessar y on a continuing basis for any of the conditions for which he/she received care during this hospitalization. Check one: [x] Skilled [] Intermediate Additional Orders/Instructions: Physician's signature: 07/01/2018 11:02 [facility] USE ONLY: [] Admitting orders verbally reviewed with Admitting Physician, modified where appropriate, and approved. Verbal Order from Date: Time: _ RN name: RN signature: [] Admitting orders reviewed, modified where appropriate, and approved. Physician's signature: Date: Time: lan of Care - Leila Bowers Neetu, Speech Pathologist - 07/01/2018 10:55 AM PDTFormatting of this note migh t be different from the original. Problem: Patient Care Overview (Adult) Goal: Care Team Goals & Evaluation PROBLEM-RELATED GOALS: 1. Ed will remain free from all falls and injuries through 07/04/18 2. Ed's skin will remain intact and any impairments will show signs of healing by 3. Ed will ambulated with FWW and physical therapy by 07/04/18 4. Ed will have no deterioration in his neuro assessment through 07/04/18 5. Ed will be continent of bowel and bladder and will not have any accidents through 6. Ed will have no s/sx of aspiration through 07/04/18 7. Pt will be Mod I in transfers and amb using bariatric FWW by 07/14/18. 8. Pt will tolerate dysphagia advanced foods and nectar thick liquids with no overt s/sx of airway compromise by 07/04/2018 9. Ed will use his own NIV during this admit. Reevaluate goal by 07-06-2018 STRATEGY TO ACHIEVE GOALS: - Perform purposeful rounding, ensure call light is within reach and provide supervision fo r all OOB activity - Assist patient with repositioning in bed, perform incontinence care if needed and monitor for signs of skin breakdown - Encourage active participation in PT/OT - Perform neuro assessment Qshift and notify MD of any decline - Assist with toileting, encourage fluid intake for bowel and bladder function - Provide altered textures and thickened fluids and ensure patient is sitting upright for a ll oral intake - Full participation in PT session in functional mobility training. - Full participation in ST sessions - Rt to assist with home NIV unit as indicated and upon request. Outcome: Unchanged IR[facility] Speech Therapy Plan of Care Treatment Note Summary: Pt seen upright in chair for session to target swallow. Pt participated well, ho wever was lethargic with flat affect. See session specifics below for oral motor exercises/ swallow exercise attempts, trials of compensatory strategies to increase swallow safety. INTERACTIVE MEDIA MARKETING STRATEGIST rec'd continued INTERACTIVE MEDIA MARKETING STRATEGIST services in SNF setting. Pt is agreeable to this plan. POLYTECHNIC REGISTRAR reported the Pt was coughing on solids/ liquids this morning likely b/c he refused to move to chair for meal. INTERACTIVE MEDIA MARKETING STRATEGIST discussed the importance of oral care daily and sitting for meals up in chair. INTERACTIVE MEDIA MARKETING STRATEGIST rec'd dysphagia advanced consistency, thin liquids with chin tuck- no straws, intermittent supervision for cueing for chin tuck, small sips, slow rate, and tray set up. INTERACTIVE MEDIA MARKETING STRATEGIST targeting increasing swallow safety, oral motor skills for weak left side. Speech Language Pathology Discharge Recommendations are: Recommended discharge disposition: mobility assist, ADL assist, safety assist, can be meka e for short periods Post discharge speech language pathology recommendation: continue INTERACTIVE MEDIA MARKETING STRATEGIST tx for dysphagia, co ntinue INTERACTIVE MEDIA MARKETING STRATEGIST tx for communication Planned Interventions: compensatory strategies, patient/caregiver education, swallow exerc ises, oral motor exercise, diet texture modification Recommended Frequency: 4 times/wk Swallow Recommendations Recommended Solid Texture: dysphagia advanced Recommended Liquid Texture: thin liquids with chin tuck Recommended Medication Delivery: whole pills with thickened liquids, whole pills with puree , crushed pills with puree, if able Recommended Feeding/Eating Techniques: alternate between small bites and sips of food/liqui d, oral care before and after each meal, maintain upright posture during/after eating for 30 mins, one small sip or bite at a time, slow rate, tuck chin during every swallow Swallow Lingual exercises: lateralization L/R against resistance x10 completed each side decreased strength to left side Lip exercises: Seal against resistance- 6/10 weakened seal noted, ROM- unable to move to l eft side, able to move to right Lingual exercises: elevation- unable to complete against resistance- decreased elevation n oted with mandible assistance use to elevate despite INTERACTIVE MEDIA MARKETING STRATEGIST cues not to, x10 protrusion against resistance, x10 each side lateralization against resistance (strength decreased on left rula e) Chin tuck with min cues with thin liquids by cup: x4/6 with no overt s/sx of airway compro mise Curt attempted again with iced stimulus prior to exercise trial- however Pt unable to swallow saliva, required bolus to swallow so curt unable to be used at this time. Supraglottic swallow trialed to determine if airway protection is increased without chin t uck- however Pt unable to follow 4 step sequence to complete this task and demonstrated imme diate, strong coughing each trial- Cognitive INTERACTIVE MEDIA MARKETING STRATEGIST engaged pt in discussion on purpose of therapies to increase strength/ balance in orde r to succeed at home. Pt reported he knows he is going to SNF but could manage at home. Pt a cknowledged it would be less safe but that he would be fine. INTERACTIVE MEDIA MARKETING STRATEGIST conferred with PT to target increased awareness of physical limitations to increase Pt understanding of need for therap y services in SNF. Pt lethargic today and demonstrated reduced endurance to participate in oral motor exercis es despite max reinforcement and rest breaks Cognition Goal Most Recent Value STG Status met at 06/29/2018 1259 STG Pt will participate in full cognitive/com assessment to determine cause severity and update POC. at 06/29/2018 1259 Dysphagia Goal Most Recent Value STG Status continued at 07/01/2018 1059 STG Pt will complete chin tuck prior to swallow of thin liquids by cup to improve airway p rotection in 100% of swallows with min cues. at 07/01/2018 1059 LTG Status continued at 07/01/2018 1059 LTG Pt will complete chin tuck prior to swallow of thin liquids by cup to improve airway p rotection in 100% of swallows with no cues. at 07/01/2018 1059 Solid Texture Goal Most Recent Value STG Status continued at 07/01/2018 1059 STG Pt will tolerate dysphagia advanced foods with no overt s/sx of airway compromise at 07/01/2018 1059 LTG Status not addressed at 06/30/2018 1112 LTG Pt will tolerate dental soft foods cut up with no overt s/sx of airway compromise at 1 1112 Liquid Texture Goal Most Recent Value STG Status discontinued at 06/30/2018 1112 STG Pt will tolerate nectar thick liquids by cup/straw with no s/sx of airway compromise a t 06/30/2018 111 LTG Status continued at 07/01/2018 1059 LTG Pt will tolerate thin liquids by cup with chin tuck each swallow with no min cues no o vert s/sx of airway compromise at 07/01/2018 1059 Additional Goals #1 INTERACTIVE MEDIA MARKETING STRATEGIST Most Recent Value STG Status continued at 06/30/2018 111 STG Pt will complete oral motor exercises for improved labial, lingual, buccal ROM/strengt h in 100% of opportunities with INTERACTIVE MEDIA MARKETING STRATEGIST and min cues. at 07/01/2018 1059 LTG Status new, met at 06/28/2018 1343 LTG Pt will complete cog/ comm assessment to determine strengths/ weaknesses prior to DC. at 06/28/2018 1343 Additional Goals #2 INTERACTIVE MEDIA MARKETING STRATEGIST Most Recent Value STG Status not met at 07/01/2018 1059 STG Pt will complete curt manuever to improve airway protection to 06/29 opportunitie s after INTERACTIVE MEDIA MARKETING STRATEGIST instruction over 2 consecutive sessions. at 07/01/2018 1059 LTG Status not met at 07/01/2018 1059 LTG Pt will complete curt manuever to improve airway protection to 100% accuracy in 2 0 opportunities after INTERACTIVE MEDIA MARKETING STRATEGIST instruction over 2 consecutive sessions. at 07/01/2018 1059 Electronically signed by: Leila Romero Speech Pathologist, 07/01/2018 11:02 Goal Evaluation: TPlan of Care - Asaf Parra OT - 07/01/2018 9:55 AM PDT Problem: Patient Care Overview (Adult) Goal: Care Team Goals & Evaluation PROBLEM-RELATED GOALS: 1. Ed will remain free from all falls and injuries through 07/04/18 2. Ed's skin will remain intact and any impairments will show signs of healing by 3. Ed will ambulated with FWW and physical therapy by 07/04/18 4. Ed will have no deterioration in his neuro assessment through 07/04/18 5. Ed will be continent of bowel and bladder and will not have any accidents through 6. Ed will have no s/sx of aspiration through 07/04/18 7. Pt will be Mod I in transfers and amb using bariatric FWW by 07/14/18. 8. Pt will tolerate dysphagia advanced foods and nectar thick liquids with no overt s/sx of airway compromise by 07/04/2018 9. Ed will use his own NIV during this admit. Reevaluate goal by 07-06-2018 STRATEGY TO ACHIEVE GOALS: - Perform purposeful rounding, ensure call light is within reach and provide supervision fo r all OOB activity - Assist patient with repositioning in bed, perform incontinence care if needed and monitor for signs of skin breakdown - Encourage active participation in PT/OT - Perform neuro assessment Qshift and notify MD of any decline - Assist with toileting, encourage fluid intake for bowel and bladder function - Provide altered textures and thickened fluids and ensure patient is sitting upright for a ll oral intake - Full participation in PT session in functional mobility training. - Full participation in ST sessions - Rt to assist with home NIV unit as indicated and upon request. IRF Occupational Therapy Plan of Care Treatment Note Summary: Sarthak has been participating in occupational therapy for treatment of decrease d ADL performance, fxl mobility, activity tolerance, safety awareness s/p ischemic CGA, L si ded weakness. Emphasis of session included bathing, dressing, toileting. Patient demonstra joaquin limited progress towards functional goals as evidenced by pt self limiting, willing only to Work on tasks of his choosing and with little regard to VCs or recommendations. Remain ing barriers to discharge and functional limitations include decreased insight into safety a nd deficits, decreased functional activity tolerance, decreased bed mobility, decreased func tional transfers, decreased ability to perform ADLs, decreased ability to perform IADLs, dec reased ability to perform medication management, demonstrating need for 24/7 supervision, un safe discharge disposition and not yet able to mobilize at level safe for home discharge. Sarthak will benefit from continued therapeutic intervention to address ongoing impairments and increase safety and independence with activities necessary for safe discharge. Refer be low for specific details regarding functional levels. Occupational Therapy Discharge Recommendations are: Recommended discharge disposition: long-term facility Post discharge occupational therapy recommendation: will benefit from structured setting, ongoing low intensity therapy Equipment Recommendations: bariatric, commode (3 in 1), long handled sponge, grain oilseed or pasture farm worker, sock aide Planned Interventions:ADL retraining, balance training, bed mobility training, motor coordi nation training, neuromuscular re-education, fine motor coordination training, ROM (Range of Motion), strengthening, transfer training Recommended Frequency: other (see comments) (rehab schedule) Patient Status/Goals: Reflects last filed data and may be from multiple contributors. ADLs pt declined to shower or perform oral hygiene. Agreed to sponge bath at EOB and states he o nly brushes his 4 remaining teeth intermittently, swishes with coffee on his "off days". Min A sponge bath at EOB. pt required assist for buttocks and back, SBA to stand, and washe d his chest, abdomen, groin. and BUEs with supervision after setup with warm water basin and no-rinse foam soap. Bathing, Level of Hammond: minimal assist (75% patient effort), set up required, verba l cues required Assistive Device: none Bathing Assess/Train, Position: sitting (at edge of bed) Bathing Assess/Train, Impairments: muscle tone abnormal, decreased flexibility, ROM decreas ed, sensation decreased, strength decreased, impaired balance, coordination impaired, motor control impaired, postural control impaired, sensory feedback impaired, pain UB Dressing, Level of Hammond: set up required, tactile cues required, verbal cues req uired, minimal assist (75% patient effort) Assistive Device: none UB Dressing Assess/Train, Position: sitting UB Dressing Assess/Train, Impairments: muscle tone abnormal, decreased flexibility, ROM dec reased, sensation decreased, strength decreased, coordination impaired, motor control impair ed, postural control impaired, sensory feedback impaired, pain Agreeable to [facility] scrub pants. LB Dressing, Level of Hammond: maximal assist (25% patient effort), verbal cues requir ed, set up required Assistive Device: dressing stick LB Dressing Assess/Train, Position: sitting, supported standing LB Dressing Assess/Train, Impairments: muscle tone abnormal, decreased flexibility, ROM dec reased, sensation decreased, strength decreased, impaired balance, coordination impaired, mo tor control impaired, postural control impaired, sensory feedback impaired Toileting, Level of Hammond: set up required, verbal cues required, tactile cues requi red, moderate assist (50% patient effort) Assistive Device: bedside commode (over toilet) Toileting Assess/Train, Position: supported standing, sitting Toileting Assess/Train, Impairments: decreased flexibility, ROM decreased, strength decreas ed, impaired balance, coordination impaired, postural control impaired, pain, motor control impaired, muscle tone abnormal, sensation decreased, sensory feedback impaired pt declined grooming tasks this AM Grooming, Level of Hammond: set up required Assistive Device: none Grooming Assess/Train, Position: sitting Grooming Assess/Train, Impairments: ROM decreased, sensation decreased, strength decreased, postural control impaired, motor control impaired, coordination impaired, sensory feedback impaired Functional Endurance Poor. Self-limiting. Cognitive initially reluctant to participate but agreeable as he understood this session was to get h im cleaned and dressed for his pending discharge today. Pt also engaged better after convers ation was initiated regarding a favorite subject, cooking. Mood/Behavior: calm, cooperative Orientation: oriented x 4 Speech: slurred, difficulty expressing Follows Commands/Answers Questions: able to follow multi-step instructions Bed Mobility Assistive Device: bed rails, HOB elevated, overhead trapeze Roll Left, Level of Hammond: stand by assist Roll Right, Level of Hammond: stand by assist Supine to Sit, Level of Hammond: minimal assist (75% patient effort), verbal cues requ ired, set up required Safety Issues: decreased use of arms for pushing/pulling, decreased use of legs for bridgi ng/pushing, impaired trunk control for bed mobility, cognitive deficits limit understanding Impairments: muscle tone abnormal, decreased flexibility, strength decreased, impaired demi nce, coordination impaired, motor control impaired, postural control impaired, sensory feedb ack impaired, pain, ROM decreased Transfers Sit-Stand, Level of Hammond: contact guard assist, verbal cues required Stand-Sit, Level of Hammond: verbal cues required, tactile cues required, stand by ass ist [id number], Assistive Device: platform attachment, 2 wheeled walker (FWW), bariatric Toilet, Level of Hammond: set up required, verbal cues required, 1 person + 1 person t o manage equipment, stand by assist Toilet, Assistive Device: bariatric, grab bars, commode (3 in 1) Safety Issues: balance decreased during turns, sequencing ability decreased, step length de creased, weight-shifting ability decreased, loses balance backward, steps too close to kell tive device, other (see comments) Impairments: muscle tone abnormal, decreased flexibility, ROM decreased, sensation decrease d, strength decreased, impaired balance, coordination impaired, motor control impaired, post ural control impaired, sensory feedback impaired, pain OT Goal Review Date Most Recent Value STG Review Date 06/30/18 at 06/23/2018 0945 LTG Review Date 07/07/18 at 06/23/2018 0945 Grooming Goal Most Recent Value STG Status met at 06/24/2018 0850 STG Hammond Level minimum assist (75% patient effort) at 06/23/2018 0945 STG Position sitting in chair at 06/23/2018 0945 STG Adaptive Equipment none at 06/23/2018944 LTG Status not met at 07/01/2018 0955 LTG Hammond Level stand by assist at 06/30/2018 0922 LTG Position sitting in chair at 06/23/2018 0945 LTG Adaptive Equipment none at 06/23/201845 Bathing Goal Most Recent Value STG Status not met at 06/30/2018 0922 STG [place] Level minimum assist (75% patient effort), set up required, verbal cues r equired at 06/23/201845 STG Adaptive Equpiment grab bars, shower head, detachable, sponge, long handled, tub bench with back at 06/23/2018 0945 STG Position sitting at 06/23/2018 0945 LTG Status not met at 07/01/2018 0955 LTG Hammond Level minimum assist (75% patient effort) at 06/30/2018 0922 LTG Adaptive Equpiment grab bars, shower head, detachable, sponge, long handled, shower ch air with back at 06/30/2018 0922 LTG Position sitting at 06/30/2018 0922 UB Dressing Goal Most Recent Value STG Status not met at 06/30/201822 STG Hammond Level stand by assist, set up required at 06/23/201845 STG Adaptive Equipment none at 06/23/2018 0945 LTG Status met at 07/01/2018 0955 LTG [place] Level stand by assist at 06/30/2018 0922 LTG Adaptive Equipment none at 06/23/2018 0945 LB Dressing Goal Most Recent Value STG Status not met at 06/30/201822 STG [place] Level moderate assist (50% patient effort), set up required at 06/23/201845 STG Adaptive Equipment grain oilseed or pasture farm worker, shoe horn, long handled, sock-aid at 06/23/2018 0945 LTG Status not met at 07/01/2018 0955 LTG Hammond Level contact guard assist, set up required at 06/23/2018 0945 LTG Adaptive Equipment grain oilseed or pasture farm worker, shoe horn, long handled, sock-aid at 06/23/201845 Toileting Goal Most Recent Value STG Status not met at 06/30/2018 0922 STG Hammond Level minimum assist (75% patient effort), set up required, verbal cues r equired at 06/23/201845 STG Assistive Device bariatric bedside commode, grab bar at 06/23/201845 LTG Status not met at 07/01/2018 0955 LTG Hammond Level minimum assist (75% patient effort) at 06/30/2018 0922 LTG Assistive Device bariatric bedside commode, grab bar at 06/23/2018 0945 Toilet Transfer Goal Most Recent Value STG Status met at 06/30/2018 0922 STG Hammond Level contact guard assist at 06/23/2018 0945 STG Assistive Device bariatric, commode (3 in 1), grab bars at 06/23/2018 0945 LTG Status met at 07/01/2018 0955 LTG Hammond Level stand by assist at 06/23/2018 0945 LTG Assistive Device bariatric, commode (3 in 1), grab bars at 06/23/2018 0945 Tub/Shower Transfer Goal Most Recent Value Tub/Shower Type tub/shower combo at 06/23/2018 0945 STG Status met at 06/30/2018 0922 STG Hammond Level contact guard assist, set up required, verbal cues required at 12/2017 0945 STG Assistive Device bariatric, tub bench, grab bars at 06/23/2018 0945 LTG Status not met at 07/01/2018 0955 LTG Hammond Level stand by assist at 06/23/2018 0945 LTG Assistive Device bariatric, tub bench, grab bars at 06/23/2018 0945 Additional Goals #1 OT Most Recent Value STG Status met at 06/30/2018 0922 STG Pt will increase automatic L hand during fxl and ADL tasks by requiring Mod vc's at 1515 LTG Status met at 07/01/2018 0955 LTG Pt will increase automatic L hand during fxl and ADL tasks by requiring Min vc's at 1515 Additional Goals #2 OT Most Recent Value LTG Status met at 06/30/2018 0922 LTG pt will tolerate lymphedema and wound care management techniques to promote skin integ rity, reduce swelling, and promote overall participation in ADLs. at 06/26/2018 1050 Electronically signed by: Asaf Parra OT, 07/01/2018 17:29 lan of Erik - Rocio Sanchez RN - 07/01/2018 3:52 AM PDTProblem: Patient Care Overview (Adult) Goal: Care Team Goals & Evaluation PROBLEM-RELATED GOALS: 1. Ed will remain free from all falls and injuries through 07/04/18 2. Ed's skin will remain intact and any impairments will show signs of healing by 3. Ed will ambulated with FWW and physical therapy by 07/04/18 4. Ed will have no deterioration in his neuro assessment through 07/04/18 5. Ed will be continent of bowel and bladder and will not have any accidents through 6. Ed will have no s/sx of aspiration through 07/04/18 7. Pt will be Mod I in transfers and amb using bariatric FWW by 07/14/18. 8. Pt will tolerate dysphagia advanced foods and nectar thick liquids with no overt s/sx of airway compromise by 07/04/2018 9. Ed will use his own NIV during this admit. Reevaluate goal by 07-06-2018 STRATEGY TO ACHIEVE GOALS: - Perform purposeful rounding, ensure call light is within reach and provide supervision fo r all OOB activity - Assist patient with repositioning in bed, perform incontinence care if needed and monitor for signs of skin breakdown - Encourage active participation in PT/OT - Perform neuro assessment Qshift and notify MD of any decline - Assist with toileting, encourage fluid intake for bowel and bladder function - Provide altered textures and thickened fluids and ensure patient is sitting upright for a ll oral intake - Full participation in PT session in functional mobility training. - Full participation in ST sessions - Rt to assist with home NIV unit as indicated and upon request. Outcome: Improving Goal Evaluation: Ed has been alert and oriented. He doesnt call for assistance, but hasnt been impulsive dur ing the night. He reported having continued pain 8/10 to his left shoulder and was given 2 n orco. Pt appeared to sleep better tonight after his pain medication and during rounding it w as noted he was sleeping more often. Neurologically pt has a left droop and tongue deviatio n, 3/5 LUE and 4/5 LLE. Pt has numbness to BLE as well but this is baseline. Noted left uppe r and lower limb ataxia. He ambulated to the BR with 1 person CGA using his platform walker in order to try and have a BM. Continues with silva catheter at this time, urine output is a dequate. lan of Care - Alaina Rogers MSW - 06/30/2018 6:26 PM PDTProblem: Discharge Planning Goal: Patient will be discharged in a safe manner The patient and his spouse are supportive of a referral to SNF for continued, lower intensi ty rehabilitation. This CM sent a referral to [facility] in [place] and they elton l accept the patient tomorrow. Medical transport will need to be arranged if [facility] is unable to accommodate him. Electronically signed by: KODI Todd 06/30/2018 18:26 lan of Care - Carmen Bland RN - 06/30/2018 4:47 PM PDTProblem: Patient Care Overview (Adult) Goal: Care Team Goals & Evaluation PROBLEM-RELATED GOALS: 1. Ed will remain free from all falls and injuries through 07/04/18 2. Ed's skin will remain intact and any impairments will show signs of healing by 3. Ed will ambulated with FWW and physical therapy by 07/04/18 4. Ed will have no deterioration in his neuro assessment through 07/04/18 5. Ed will be continent of bowel and bladder and will not have any accidents through 6. Ed will have no s/sx of aspiration through 07/04/18 7. Pt will be Mod I in transfers and amb using bariatric FWW by 07/14/18. 8. Pt will tolerate dysphagia advanced foods and nectar thick liquids with no overt s/sx of airway compromise by 07/04/2018 9. Ed will use his own NIV during this admit. Reevaluate goal by 07-06-2018 STRATEGY TO ACHIEVE GOALS: - Perform purposeful rounding, ensure call light is within reach and provide supervision fo r all OOB activity - Assist patient with repositioning in bed, perform incontinence care if needed and monitor for signs of skin breakdown - Encourage active participation in PT/OT - Perform neuro assessment Qshift and notify MD of any decline - Assist with toileting, encourage fluid intake for bowel and bladder function - Provide altered textures and thickened fluids and ensure patient is sitting upright for a ll oral intake - Full participation in PT session in functional mobility training. - Full participation in ST sessions - Rt to assist with home NIV unit as indicated and upon request. Outcome: Improving Goal Evaluation: Ed remained free from falls or injury, his skin is intact except the scabbed ulcers on his Rt leg. He did walk with physical Therapy and OT today. His neuro assessment remains stabl e with no decline. He has had no bowel or bladder incontinence during this shift. He remain s free from s/s of aspiration. He is not Mod I yet. He is tolerating the diet but was not tolerating the nectar thick liquids, speech changed it because he refused to drink it. His silva is draining adequate clear yellow uring and his last BM was 06/30/18. He has had no i ncontinence today. lan of Care - [facility] aliya, Reshma Smith OT - 06/30/2018 3:53 PM PDT Problem: Patient Care Overview (Adult) Goal: Care Team Goals & Evaluation PROBLEM-RELATED GOALS: 1. Ed will remain free from all falls and injuries through 07/04/18 2. Ed's skin will remain intact and any impairments will show signs of healing by 3. Ed will ambulated with FWW and physical therapy by 07/04/18 4. Ed will have no deterioration in his neuro assessment through 07/04/18 5. Ed will be continent of bowel and bladder and will not have any accidents through 6. Ed will have no s/sx of aspiration through 07/04/18 7. Pt will be Mod I in transfers and amb using bariatric FWW by 07/14/18. 8. Pt will tolerate dysphagia advanced foods and nectar thick liquids with no overt s/sx of airway compromise by 07/04/2018 9. Ed will use his own NIV during this admit. Reevaluate goal by 07-06-2018 STRATEGY TO ACHIEVE GOALS: - Perform purposeful rounding, ensure call light is within reach and provide supervision fo r all OOB activity - Assist patient with repositioning in bed, perform incontinence care if needed and monitor for signs of skin breakdown - Encourage active participation in PT/OT - Perform neuro assessment Qshift and notify MD of any decline - Assist with toileting, encourage fluid intake for bowel and bladder function - Provide altered textures and thickened fluids and ensure patient is sitting upright for a ll oral intake - Full participation in PT session in functional mobility training. - Full participation in ST sessions - Rt to assist with home NIV unit as indicated and upon request. Outcome: Unchanged IRF Occupational Therapy Plan of Care Treatment Note Summary: Sarthak has participated minimally in occupational therapy for treatment of decr eased ADL performance, fxl mobility, activity tolerance, safety awareness s/p ischemic CGA, L sided weakness. Emphasis of session included LB dressing; attempt @ LUE therex; fxl mobil ity; w/c mobility. Patient demonstrates limited progress towards functional goals as eviden hossein by did agree to don pants this PM; self-limiting behavior and puts forth most minimal ef fort into therapeutic activity. Remaining barriers to discharge and functional limitations include decreased insight into safety and deficits, decreased functional activity tolerance, decreased bed mobility, decreased functional transfers, decreased ability to perform ADLs, decreased ability to perform IADLs, decreased ability to perform medication management and n ot yet able to mobilize at level safe for home discharge. Pt marginally participatory. Put forth minimal effort into LUE therex, stopping in midst of task w/ no further Sarthak will benefit from continued therapeutic intervention to address ongoing impairments and increase safety and independence with activities necessary for safe discharge. Refer be low for specific details regarding functional levels. Occupational Therapy Discharge Recommendations are: Recommended discharge disposition: long-term facility Post discharge occupational therapy recommendation: will benefit from structured setting, ongoing low intensity therapy Equipment Recommendations: bariatric, commode (3 in 1), long handled sponge, grain oilseed or pasture farm worker, sock aide Planned Interventions:ADL retraining, balance training, bed mobility training, motor coordi nation training, neuromuscular re-education, fine motor coordination training, ROM (Range of Motion), strengthening, transfer training Recommended Frequency: other (see comments) (rehab schedule) Patient Status/Goals: Reflects last filed data and may be from multiple contributors. ADLs Agreeable to donning hospital scrub pants. Struggled to clod puller stockinged feet but decl ined to remove stockings. Declined to use suggestions offered by OT to ease process. LB Dressing, Level of Hammond: maximal assist (25% patient effort), verbal cues requir ed, set up required Assistive Device: dressing stick LB Dressing Assess/Train, Position: sitting, supported standing LB Dressing Assess/Train, Impairments: muscle tone abnormal, decreased flexibility, ROM dec reased, sensation decreased, strength decreased, impaired balance, coordination impaired, mo tor control impaired, postural control impaired, sensory feedback impaired Therapeutic Exercise Yellow foam for L grasp- completed 5 reps. Instructed to extend fingers to maximum mvt, p t stated "I'll drop the foam!!," OT indicated I would hold it. He then extended his 3rd fin suzan and smirked. Minimal cooperation in extending remaining fingers. Attempted active bent elbow extension, gravity assist for pain reduction, w/ yellow t-tube. Very minimal effort observed, the pt stopped and put head down, eyes closed, and stated "Time for a nap." Functional Endurance Poor. Self-limiting. Would initiate a task, then stop in midst w/ no further attempts @ it s completion. Makes little attempt to follow direction/instruction of OT for improved techn ique, safety, ect. Cognitive Cooperative and calm throughout majority of session- intermittent mild outbursts but was ea sily redirected and did not get overly agitated. Mood/Behavior: cooperative, hostile Speech: slurred, difficulty expressing Bed Mobility Extra time and effort, use of overhead trapeze. Does not make attempt to use LUE during [place] to sit d/t pain. Declined use of LUE on instruction, held in flexion on chest. Assistive Device: bed rails, HOB elevated, overhead trapeze Supine to Sit, Level of Hammond: minimal assist (75% patient effort), verbal cues requ ired, set up required Safety Issues: decreased use of arms for pushing/pulling, decreased use of legs for bridgin g/pushing, impaired trunk control for bed mobility, cognitive deficits limit understanding Impairments: muscle tone abnormal, decreased flexibility, strength decreased, impaired demi nce, coordination impaired, motor control impaired, postural control impaired, sensory feedb ack impaired, pain, ROM decreased Transfers Declines to use LUE for transfer assist d/t pain. Agreeable to and used platform FWW for t ransfer to w/c. Bed-Chair, Level of Hammond: verbal cues required, contact guard assist, 1 person + 1 person to manage equipment [id number], Assistive Device: 2 wheeled walker (FWW), bariatric, wheelchair, platform at tachment Sit-Stand, Level of [place]: contact guard assist, verbal cues required, 1 person + 1 person to manage equipment Stand-Sit, Level of [place]: contact guard assist, verbal cues required, tactile cues required [id number], Assistive Device: platform attachment, 2 wheeled walker (FWW), bariatric, wh eelchair Safety Issues: balance decreased during turns, sequencing ability decreased, step length de creased, weight-shifting ability decreased, loses balance backward, steps too close to kell tive device, other (see comments) Impairments: muscle tone abnormal, decreased flexibility, ROM decreased, sensation decrease d, strength decreased, impaired balance, coordination impaired, motor control impaired, post ural control impaired, sensory feedback impaired, pain Wheelchair Mobility Bariatric w/c. Initially propels backwards, unable to manage L brake but makes no attempt @ it either. Type: (Bariatric manual w/c) Surface: indoor, level Speed: Very slowly, initially backwards w/ no attention to objects in pathway. Turned forw refugio requires min assist to propel w/c but max cuing for environmental awareness. Propulsion Technique: bilateral LE's (RUE intermittently) Components: brakes ( Right) OT Goal Review Date Most Recent Value STG Review Date 06/30/18 at 06/23/2018944 LTG Review Date 07/07/18 at 06/23/2018 0945 LB Dressing Goal Most Recent Value STG Status not met at 06/30/2018921 STG [place] Level moderate assist (50% patient effort), set up required at 06/23/201845 STG Adaptive Equipment grain oilseed or pasture farm worker, shoe horn, long handled, sock-aid at 06/23/2018 0945 LTG Status progressing at 06/30/2018 0922 LTG [place] Level contact guard assist, set up required at 06/23/201845 LTG Adaptive Equipment grain oilseed or pasture farm worker, shoe horn, long handled, sock-aid at 06/23/2018 0945 Additional Goals #1 OT Most Recent Value STG Status met at 06/30/2018 0922 STG Pt will increase automatic L hand during fxl and ADL tasks by requiring Mod vc's at 1515 LTG Status progressing at 06/30/2018 0922 LTG Pt will increase automatic L hand during fxl and ADL tasks by requiring Min vc's at 1515 Additional Goals #2 OT Most Recent Value LTG Status met at 06/30/2018 09 LTG pt will tolerate lymphedema and wound care management techniques to promote skin integ rity, reduce swelling, and promote overall participation in ADLs. at 06/26/2018 1050 Electronically signed by: Reshma Oliveira OT, 06/30/2018 17:36 lan of Care - Angelica Esteves, PT - 06/30/2018 2:30 PM PDT Problem: Patient Care Overview (Adult) Goal: Care Team Goals & Evaluation PROBLEM-RELATED GOALS: 1. Ed will remain free from all falls and injuries through 07/04/18 2. Ed's skin will remain intact and any impairments will show signs of healing by 3. Ed will ambulated with FWW and physical therapy by 07/04/18 4. Ed will have no deterioration in his neuro assessment through 07/04/18 5. Ed will be continent of bowel and bladder and will not have any accidents through 6. Ed will have no s/sx of aspiration through 07/04/18 7. Pt will be Mod I in transfers and amb using bariatric FWW by 07/14/18. 8. Pt will tolerate dysphagia advanced foods and nectar thick liquids with no overt s/sx of airway compromise by 07/04/2018 9. Ed will use his own NIV during this admit. Reevaluate goal by 07-06-2018 STRATEGY TO ACHIEVE GOALS: - Perform purposeful rounding, ensure call light is within reach and provide supervision fo r all OOB activity - Assist patient with repositioning in bed, perform incontinence care if needed and monitor for signs of skin breakdown - Encourage active participation in PT/OT - Perform neuro assessment Qshift and notify MD of any decline - Assist with toileting, encourage fluid intake for bowel and bladder function - Provide altered textures and thickened fluids and ensure patient is sitting upright for a ll oral intake - Full participation in PT session in functional mobility training. - Full participation in ST sessions - Rt to assist with home NIV unit as indicated and upon request. Outcome: Unchanged IRF Physical Therapy Plan of Care Treatment Note Summary: Sarthak has been participating in physical therapy for treatment of Impaired bal ance, gait instability, (L) sided neglect, (L) zena paresis who was admitted d/t CVA. 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 Hx of previous C VA affecting (R) side.. Emphasis of session included transfers, gait and bed mobility susan tony. Pt agreed to participate on therapy and limited to activities that he wants to do. P t cont. To require cues for inc.attention on (L) hand to prevent injury to it. Seated rest periods in bet.activities d/t fatigue. Remaining barriers to discharge and functional limi tations include decreased insight into safety and deficits, decreased functional activity to lerance, decreased bed mobility, decreased functional transfers, decreased functional gait d istance, decreased gait velocity, demonstrating need for 24/7 supervision, unsafe discharge disposition, not yet able to mobilize at level safe for home discharge and [facility] indicating significant impairment with basic functional mobility. Sarthak will benefit from continued therapeutic intervention to address ongoing impairments and increase safety and independence with activities necessary for safe discharge. Refer be low for specific details regarding functional levels. Physical Therapy Discharge Recommendations are: Recommended discharge disposition: home with assist Post discharge physical therapy recommendation: home health Equipment Recommendations: bariatric, 2 wheeled walker (FWW) Planned Interventions: balance training, bed mobility training, gait training, home exerci se program, lumbar stabilization, manual therapy techniques, motor coordination training, st air training, strengthening, ROM (Range of Motion), postural re-education, patient/family ed ucation, neuromuscular re-education, transfer training, wheelchair management/propulsion tra ining Frequency: daily (1-2x/day) Patient Status/Goals: Reflects last filed data and may be from multiple contributors. Bed Mobility extra time and effort d/t (L) sided weakness. Verbal cues for attention to (L) hand during mobility. Assistive Device: bed rails, HOB elevated, overhead trapeze Roll Left, Level of Hammond: stand by assist Roll Right, Level of [place]: stand by assist Scoot/Bridge, Level of [place]: not tested Supine to Sit, Level of [place]: not tested (up in the chair) Sit to Supine, Level of [place]: verbal cues required, stand by assist Safety Issues: decreased use of arms for pushing/pulling, decreased use of legs for bridgin g/pushing, impaired trunk control for bed mobility Impairments: muscle tone abnormal, decreased flexibility, strength decreased, impaired demi nce, coordination impaired, motor control impaired, postural control impaired, sensory feedb ack impaired, pain Transfers verbal cues for hand placement, does not want to wt.bear on (L) hand d/t pain. sit to [place] d imporved when cushion was addedd to the w/c for added height. Bed-Chair, Level of [place]: verbal cues required, contact guard assist, 1 person + 1 person to manage equipment Chair-Bed, Level of [place]: verbal cues required [id number], Assistive Device: 2 wheeled walker (FWW), platform attachment, bariatric Sit-Stand, Level of [place]: contact guard assist, verbal cues required, 1 person + 1 person to manage equipment Stand-Sit, Level of [place]: contact guard assist, verbal cues required, tactile cues required [id number], Assistive Device: platform attachment, 2 wheeled walker (FWW), bariatric Safety Issues: balance decreased during turns, sequencing ability decreased, step length de creased, weight-shifting ability decreased, loses balance backward, steps too close to kell tive device, other (see comments) Impairments: muscle tone abnormal, decreased flexibility, ROM decreased, sensation decrease d, strength decreased, impaired balance, coordination impaired, motor control impaired, post ural control impaired, sensory feedback impaired, pain Gait initially tried a bariatric FWW w/o platform attachment but pt c/o pain on (L) wrist and pr efers to use a platform attachment. Verbal cues for inc. step width and slowing down when t urning to prevent the AD from tipping. Seated rest period d/t fatigue. Level of Hammond: contact guard assist, 1 person + 1 person to manage equipment, verba l cues required Assistive Device: 2 wheeled walker (FWW), bariatric, platform attachment Distance (feet): 50' x 2 Gait Pattern Analysis: 3-point gait Gait Deviations: alize decreased, double stance time increased, limb motion velocity decr eased, step length decreased, zwa-xa-drylo clearance decreased, weight-shifting ability decr eased, stride length decreased Safety Issues: balance decreased during turns, sequencing ability decreased, step length de creased, weight-shifting ability decreased, loses balance backward, steps too close to kell tive device, other (see comments) Impairments: sensation decreased, strength decreased, impaired balance, coordination impair ed, motor control impaired, postural control impaired, pain Stairs step up/down on a 2" platform to simulate entrance of the house. x 2P CGA PT Goal Review Date Most Recent Value STG Review Date 06/30/18 at 06/23/2018 0915 LTG Review Date 07/14/18 at 06/23/2018 0915 [id number] Goal Most Recent Value STG Status not met at 06/30/2018 1430 STG [place] Level supervised at 06/23/2018 0915 STG Assistive Device bed rails, overhead trapeze at 06/23/2018 0915 LTG Status continued at 06/30/2018 1430 LTG [place] Level modified independent at 06/23/2018 0915 LTG Assistive Device bed rails, overhead trapeze at 06/23/2018 0915 [id number] Goal Most Recent Value STG Status not met at 06/30/2018 1430 STG [place] Level contact guard assist at 06/23/2018 0915 STG Assistive Device 2 wheeled walker (FWW), bariatric at 06/23/2018 0915 LTG Status continued at 06/26/2018 1749 LTG [place] Level modified independent at 06/23/2018 0915 LTG Assistive Device 2 wheeled walker (FWW), bariatric, 4 wheeled walker (4WW) at 06/23/20 18 0915 Gait Goal Most Recent Value STG Status not met at 06/30/2018 1430 STG [place] Level contact guard assist at 06/23/2018 0915 STG Assistive Device bariatric, 2 wheeled walker (FWW) at 06/23/2018 0915 STG Comments 50' at 06/23/2018 0915 LTG Status new at 06/23/2018 0915 LTG [place] Level modified independent at 06/23/2018 0915 LTG Assistive Device 2 wheeled walker (FWW), bariatric, 4 wheeled walker (4WW) at 06/23/20 18 0915 LTG Distance (feet) 50' x 3 at 06/23/2018 0915 LTG Comments ramps at 06/23/2018 0915 Wheelchair Goal Most Recent Value STG Status continued at 06/27/2018 1157 STG Pt will propel a manual wheelchair 50 feet with Min A to improve his independence at 1 1206 LTG Status new at 06/26/2018 1206 LTG Pt will propel a manual wheelchair 100 feet with Sup to improve his independence at 1206 Electronically signed by: ANGELICA LY, PT, 06/30/2018 17:04 lan of Care - Inocencio Saleem, PARTS DEPARTMENT SUPERVISOR - 06/30/2018 1:17 PM PDT Problem: Patient Care Overview (Adult) Goal: Care Team Goals & Evaluation PROBLEM-RELATED GOALS: 1. Ed will remain free from all falls and injuries through 07/04/18 2. Ed's skin will remain intact and any impairments will show signs of healing by 3. Ed will ambulated with FWW and physical therapy by 07/04/18 4. Ed will have no deterioration in his neuro assessment through 07/04/18 5. Ed will be continent of bowel and bladder and will not have any accidents through 6. Ed will have no s/sx of aspiration through 07/04/18 7. Pt will be Mod I in transfers and amb using bariatric FWW by 07/14/18. 8. Pt will tolerate dysphagia advanced foods and nectar thick liquids with no overt s/sx of airway compromise by 07/04/2018 9. Ed will use his own NIV during this admit. Reevaluate goal by 07-06-2018 STRATEGY TO ACHIEVE GOALS: - Perform purposeful rounding, ensure call light is within reach and provide supervision fo r all OOB activity - Assist patient with repositioning in bed, perform incontinence care if needed and monitor for signs of skin breakdown - Encourage active participation in PT/OT - Perform neuro assessment Qshift and notify MD of any decline - Assist with toileting, encourage fluid intake for bowel and bladder function - Provide altered textures and thickened fluids and ensure patient is sitting upright for a ll oral intake - Full participation in PT session in functional mobility training. - Full participation in ST sessions - Rt to assist with home NIV unit as indicated and upon request. Goal Evaluation: Pt is using his bilevel NIV during his hospitalization. No problems have been noted. His l ungs sound clear and diminished and his SpO2: 95 % on room air. Severity Score 2 Class 1 Severity Score 0-4 ITEM 0 1 2 3 4 2 Respiratory History No Smoking history Current tobacco use Up to 10 Pack year history. Simple home regimen Known Pulmonary Disease 20 pack year history Complex Home regimen 30+ pack year history Severe Pulmonary Disease or exacerbation 0 Surgery Status (current admission) No surgery Minor surgery Lower abdominal rib fractures Thoracic or uppe r abdominal Thoracic with pulmonary disease or Central Nervous System 0 Chest X-RAY Clear or Normal baseline Unavailable Improving/clearing Abnormal, Unilateral or mild Infiltrates or atelectasis, Chronic changes Infiltrates mild bilateral or unilateral or pleural effusions extensive Inf iltrates, atelectasis or pleural effusions, pneumothorax 0 Respiratory Pattern Regular pattern Respiratory Rate:8-20 Increased Respiratory Rate, labored Dyspnea on exertion, irregular pattern Use of accessory muscles, prolonged expirato ry phase nasal flaring Severe Dyspnea , Purse Lip Breathing, Use of accessory muscles 0 Breath Sounds Clear Diminished unilaterally Diminished bilaterally &/or crackles Whe ezing or Rhonchi &/or absent unilateral Absent bilaterally 0 Cough Strong, non productive Moderate, loose, productive Weak, non-productive Weak, ineffective Non-spontaneous or may require suctioning 0 Sputum None Scant / Thin White/clear Moderate Beige/ yellow Large / Thick Dark Green/Brown Copious / Plugs Hemoptysis sandra 0 LOC Alert, oriented, cooperative Disoriented, follows commands Obtunded, arousable, follows commands Obtunded, uncooperative, sedated Comatose 0 Oxygen Demand Room air Baseline 1-2 liters 3-6 liters >7 Liters Oxymizer to > 55% 60% or greater Total Severity Score (SS) Class 0-3 PRN 1 4-7 TID or PRN 2 8-11 QID 3 12-14 Q4 W/A 4 15+ Q4 5 lan of Care - Jin kenyon Aileen Monse, CURB ATTENDANT - 06/30/2018 12:36 PM PDTFormatting of this note might be different from t he original. Problem: Patient Care Overview (Adult) Goal: Care Team Goals & Evaluation PROBLEM-RELATED GOALS: 1. Ed will remain free from all falls and injuries through 07/04/18 2. Ed's skin will remain intact and any impairments will show signs of healing by 3. Ed will ambulated with FWW and physical therapy by 07/04/18 4. Ed will have no deterioration in his neuro assessment through 07/04/18 5. Ed will be continent of bowel and bladder and will not have any accidents through 6. Ed will have no s/sx of aspiration through 07/04/18 7. Pt will be Mod I in transfers and amb using bariatric FWW by 07/14/18. 8. Pt will tolerate dysphagia advanced foods and nectar thick liquids with no overt s/sx of airway compromise by 07/04/2018 9. Ed will use his own NIV during this admit. Reevaluate goal by 07-06-2018 STRATEGY TO ACHIEVE GOALS: - Perform purposeful rounding, ensure call light is within reach and provide supervision fo r all OOB activity - Assist patient with repositioning in bed, perform incontinence care if needed and monitor for signs of skin breakdown - Encourage active participation in PT/OT - Perform neuro assessment Qshift and notify MD of any decline - Assist with toileting, encourage fluid intake for bowel and bladder function - Provide altered textures and thickened fluids and ensure patient is sitting upright for a ll oral intake - Full participation in PT session in functional mobility training. - Full participation in ST sessions - Rt to assist with home NIV unit as indicated and upon request. Outcome: Improving IRF Physical Therapy Plan of Care Treatment Note Summary: Sarthak has been participating in physical therapy for treatment of Impaired bal ance, gait instability, (L) sided neglect, (L) zena paresis who was admitted d/t CVA. 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 Hx of previous C VA affecting (R) side.. Emphasis of session included attempt to increase patient's functio nal mobility and safety. Patient encountered in his w/c, using the phone. Approached kelly nt to begin session, but patient stated, "I have calls to make". Allowed patient to use the phone for about 8 minutes, until he appeared finished, asked him to begin therapy. Patient immediately became verbally abusive to this therapist, stating that we (the therapy staff) "are always f$%^ing making do stuff, all the f#$%ing time, f%^&ing people". When asked t o push up from wheelchair with one hand, he attempted to pull the armrest off the chair, justyn kilpatrick breaking it. He stood to walk, a folding chair was close by. He moved the chair param y strongly, throwing it to the side. When asked to wear a gown he again became agitated and verbally abusive, stating, "if they haven't seen a naked a&& before, it's about time! You' re all prudes." Attempted to explain that in his room or at home, in private, that was acce ptable, however, in public, in the hospital, he must wear clothes in the nguyen. He allowed a gown to be placed over his shoulders. When patient stood to walk, his left wrist was in a v lisa flexed position, which had caused him pain earlier. Attempted to position his wrist in a safe position, he pulled away, saying, "get off me". Patient stood impulsively to walk in nguyen, prompting this therapist to have to tactically stop him, to place a gait belt. Patineema t walked in the nguyen with an unsafe technique-too fast, listing to the left-almost colliding with the wall requiring this CURB ATTENDANT to get between him and the wall. Patient sat impulsively on his 4WW. Explained to patient that I could not allow him to perform activities in an uns afe manner. He then pushed his 4WW in backward into the wall, and stood again. He walked b ack to his room, was made safe, call light given. I then spoke to primary PT and Dr. Brad schulz egarding this patient's behavior. Patient demonstrates progress towards functional goals as evidenced by increased walking distance, although unsafe and impulsive. Remaining barriers to discharge and functional limitations include decreased insight into safety and deficits, decreased functional activity tolerance, decreased bed mobility, decreased functional transf ers, decreased functional gait distance, decreased gait velocity, stairs at home, not able t o navigate stairs, demonstrating need for 24/7 supervision, unsafe discharge disposition, no t yet able to mobilize at level safe for home discharge and [facility] indicating significant imp airment with basic functional mobility. Sarthak will benefit from continued therapeutic intervention to address ongoing impairments and increase safety and independence with activities necessary for safe discharge. Refer be low for specific details regarding functional levels. Physical Therapy Discharge Recommendations are: Recommended discharge disposition: home with assist Post discharge physical therapy recommendation: home health Equipment Recommendations: bariatric, 2 wheeled walker (FWW) Planned Interventions: balance training, bed mobility training, gait training, home exerci se program, lumbar stabilization, manual therapy techniques, motor coordination training, st air training, strengthening, ROM (Range of Motion), postural re-education, patient/family ed ucation, neuromuscular re-education, transfer training, wheelchair management/propulsion tra ining Frequency: daily (1-2x/day) Patient Status/Goals: Reflects last filed data and may be from multiple contributors. Bed Mobility NT-up in w/c Safety Issues: decreased use of arms for pushing/pulling, decreased use of legs for bridgin g/pushing, impaired trunk control for bed mobility Impairments: muscle tone abnormal, decreased flexibility, strength decreased, impaired demi nce, coordination impaired, motor control impaired, postural control impaired, sensory feedb ack impaired Transfers patient agitated prior to standing, refused to use PFWW, stating, "I will only do it if I c an use my walker" Told patient that we would assess patient safety with 4WW Bed-Chair, Level of [place]: not tested Chair-Bed, Level of [place]: not tested [id number]-[id number]-[id number], Assistive Device: wheelchair, 4 wheeled walker (4WW) Sit-Stand, Level of [place]: contact guard assist, verbal cues required, 1 person + 1 person to manage equipment (unsafe technique, refused to adhere to therapist recommendations ) Stand-Sit, Level of [place]: contact guard assist, verbal cues required, tactile cues required (unsafe, refused to adhere to therapist's recommendations) [id number], Assistive Device: wheelchair, 4 wheeled walker (4WW) Safety Issues: balance decreased during turns, sequencing ability decreased, step length d ecreased, weight-shifting ability decreased, loses balance backward, steps too close to assi stive device, other (see comments) (unsafe technique, broke w/c armrest when asked to push u p from chair) Impairments: muscle tone abnormal, decreased flexibility, ROM decreased, sensation decrease d, strength decreased, impaired balance, coordination impaired, motor control impaired, post ural control impaired, sensory feedback impaired, pain Gait patient demonstrates unsafe technique while walking with 4WW. Was verbally abusive with luz maria hurd when corrections given. Patient with left neglect, needing physical cues from thera pist body not to collide left arm/shoulder with wall Level of [place]: contact guard assist, 1 person + 1 person to manage equipment, verba l cues required Assistive Device: 4 wheeled walker (4WW) Distance (feet): 50' x 2 Gait Pattern Analysis: 3-point gait Gait Deviations: alize decreased, double stance time increased, limb motion velocity decr eased, step length decreased, [id number] clearance decreased, weight-shifting ability decr eased Safety Issues: balance decreased during turns, sequencing ability decreased, step length de creased, weight-shifting ability decreased, loses balance backward, steps too close to kell tive device, other (see comments) (unsafe, refused to adhere to therapist suggestions for co rrection) Impairments: sensation decreased, strength decreased, impaired balance, coordination impair ed, motor control impaired, postural control impaired, pain Wheelchair Mobility refused to attempt Balance gait velocity= 0.2 m/sec. Sitting Balance: Static: good balance Sitting Balance: Dynamic: good balance Standing Balance: Static: fair balance Standing Balance: Dynamic: fair balance Therapeutic Exercise refused to participate Functional Endurance fair, when cooperative PT Goal Review Date Most Recent Value STG Review Date 06/30/18 at 06/23/2018 0915 LTG Review Date 07/14/18 at 06/23/2018 0915 [id number] Goal Most Recent Value STG Status progressing at 06/29/2018 1150 STG [place] Level supervised at 06/23/2018 0915 STG Assistive Device bed rails, overhead trapeze at 06/23/2018 0915 LTG Status new at 06/23/2018 0915 LTG [place] Level modified independent at 06/23/2018 0915 LTG Assistive Device bed rails, overhead trapeze at 06/23/2018 0915 Iqh-Peoie-Eax Goal Most Recent Value STG Status progressing at 06/30/2018 1140 STG [place] Level contact guard assist at 06/23/2018 0915 STG Assistive Device 2 wheeled walker (FWW), bariatric at 06/23/2018 0915 LTG Status continued at 06/26/2018 1749 LTG [place] Level modified independent at 06/23/2018 0915 LTG Assistive Device 2 wheeled walker (FWW), bariatric, 4 wheeled walker (4WW) at 06/23/20 18 0915 [id number]-Opv Goal Most Recent Value STG Status progressing at 06/29/2018 1150 Gait Goal Most Recent Value STG Status progressing at 06/30/2018 1140 STG [place] Level contact guard assist at 06/23/2018 0915 STG Assistive Device bariatric, 2 wheeled walker (FWW) at 06/23/2018 0915 STG Comments 50' at 06/23/2018 0915 LTG Status new at 06/23/2018 0915 LTG [place] Level modified independent at 06/23/2018 0915 LTG Assistive Device 2 wheeled walker (FWW), bariatric, 4 wheeled walker (4WW) at 06/23/20 18 0915 LTG Distance (feet) 50' x 3 at 06/23/2018 0915 LTG Comments ramps at 06/23/2018 0915 Wheelchair Goal Most Recent Value STG Status continued at 06/27/2018 1157 STG Pt will propel a manual wheelchair 50 feet with Min A to improve his independence at 1 1206 LTG Status new at 06/26/2018 1206 LTG Pt will propel a manual wheelchair 100 feet with Sup to improve his independence at 1206 Electronically signed by: Aileen Helms PTA, 06/30/2018 12:18 lan of Care - Leila Sagastume, Speech Pathologist - 06/30/2018 11:10 AM PDT Problem: Patient Care Overview (Adult) Goal: Care Team Goals & Evaluation PROBLEM-RELATED GOALS: 1. Ed will remain free from all falls and injuries through 07/04/18 2. Ed's skin will remain intact and any impairments will show signs of healing by 3. Ed will ambulated with FWW and physical therapy by 07/04/18 4. Ed will have no deterioration in his neuro assessment through 07/04/18 5. Ed will be continent of bowel and bladder and will not have any accidents through 6. Ed will have no s/sx of aspiration through 07/04/18 7. Pt will be Mod I in transfers and amb using bariatric FWW by 07/14/18. 8. Pt will tolerate dysphagia advanced foods and nectar thick liquids with no overt s/sx of airway compromise by 07/04/2018 9. Ed will use his own NIV during this admit. Reevaluate goal by 07-06-2018 STRATEGY TO ACHIEVE GOALS: - Perform purposeful rounding, ensure call light is within reach and provide supervision fo r all OOB activity - Assist patient with repositioning in bed, perform incontinence care if needed and monitor for signs of skin breakdown - Encourage active participation in PT/OT - Perform neuro assessment Qshift and notify MD of any decline - Assist with toileting, encourage fluid intake for bowel and bladder function - Provide altered textures and thickened fluids and ensure patient is sitting upright for a ll oral intake - Full participation in PT session in functional mobility training. - Full participation in ST sessions - Rt to assist with home NIV unit as indicated and upon request. Outcome: Improving IRF Speech Therapy Plan of Care Treatment Note Summary: Pt seen upright in WC following OT session. Pt reported fatigue but was willing to participate. Session targeted dysphagia. See below for structured tasks and performance. INTERACTIVE MEDIA MARKETING STRATEGIST reviewed results of MBS with tolerating solid items despite reduced chewing pattern, and penetration of thin liquids/ nectar thick liquids by cup and trace aspiration during swallo w of thin liquids by straw d/t reduced hyolaryngeal elevation which contributed to poor doimngo ngeal vestibular closure and penetration. Curt attempted, but not successful despite ma x cues. Chin tuck education completed and trials performed with success. Limited trials toda y because called and INTERACTIVE MEDIA MARKETING STRATEGIST took opportunity to educate on MBS results and need for ongoin g swallow services after DC. Pt aware of risk of aspiration with pneumonia. INTERACTIVE MEDIA MARKETING STRATEGIST plan to cont inue attempting Curt, involve elements of [facility] ([facility]), joce mathis chin tujoe with no cues, oral motor exercises with mirror and against resistance. INTERACTIVE MEDIA MARKETING STRATEGIST pr ovided a sign in the room to assist with recall of swallow strategies. Speech Language Pathology Discharge Recommendations are: Recommended discharge disposition: mobility assist, ADL assist, safety assist, can be meka e for short periods Post discharge speech language pathology recommendation: continue INTERACTIVE MEDIA MARKETING STRATEGIST tx for dysphagia, co ntinue INTERACTIVE MEDIA MARKETING STRATEGIST tx for communication Planned Interventions: compensatory strategies, patient/caregiver education, swallow exerc ises, oral motor exercise, diet texture modification Recommended Frequency: 4 times/wk Swallow Recommendations Recommended Solid Texture: dysphagia advanced Recommended Liquid Texture: thin liquids Recommended Medication Delivery: whole pills with thickened liquids, whole pills with puree , crushed pills with puree, if able Recommended Feeding/Eating Techniques: alternate between small bites and sips of food/liqui d, oral care before and after each meal, maintain upright posture during/after eating for 30 mins, one small sip or bite at a time, slow rate, tuck chin during every swallow Swallow Thin liquids by cup with chin tuck with min cues for accuracy: 4/5 with no cough noted Mild sensory disturbance to gross touch on outer left face and inner left cheek and left a nterior/ lateral tongue Swallow exercise: curt to increase airway protection during swallow of saliva trials- unable to perform this exercise with max verbal/ tactile/ visual cues. Decreased awareness of when swallow trigger occurs- evidenced by no elevation felt on palpation but pt reported a swallow occured Oral motor ROM: lingual protrusion x3/ lateralization x5 each side- Need a mirror to incre ase visual feedback and performance of task. Will also use resistance exercises to increase mastication ability Cognitive Orientation: oriented x 4 Speech: slurred Follows Commands/Answers Questions: able to follow multi-step instructions Verbal Expression Complete sentences, slurred but intelligible Cognition Goal Most Recent Value STG Status met at 06/29/2018 1259 STG Pt will participate in full cognitive/com assessment to determine cause severity and update POC. at 06/29/2018 1259 Dysphagia Goal Most Recent Value STG Status continued at 06/30/2018 1112 STG Pt will complete chin tuck prior to swallow of thin liquids by cup to improve airway p rotection in 100% of swallows with min cues. at 06/30/2018 1112 LTG Status continued at 06/30/2018 1112 LTG Pt will complete chin tuck prior to swallow of thin liquids by cup to improve airway p rotection in 100% of swallows with no cues. at 06/30/2018 1112 Solid Texture Goal Most Recent Value STG Status continued at 06/30/2018 1112 STG Pt will tolerate dysphagia advanced foods with no overt s/sx of airway compromise at 06/30/2018 1112 LTG Status not addressed at 06/30/2018 1112 LTG Pt will tolerate dental soft foods cut up with no overt s/sx of airway compromise at 1 1112 Liquid Texture Goal Most Recent Value STG Status discontinued at 06/30/2018 111 STG Pt will tolerate nectar thick liquids by cup/straw with no s/sx of airway compromise a t 06/30/2018 111 LTG Status continued at 06/30/2018 1112 LTG Pt will tolerate thin liquids by cup with no overt s/sx of airway compromise at 2017 1112 Additional Goals #1 INTERACTIVE MEDIA MARKETING STRATEGIST Most Recent Value STG Status continued at 06/30/2018 111 STG Pt will complete oral motor exercises for improved facial droop with 75% accuracy and min cues. at 06/30/2018 111 LTG Status new, met at 06/28/2018 1343 LTG Pt will complete cog/ comm assessment to determine strengths/ weaknesses prior to DC. at 06/28/2018 1343 Additional Goals #2 INTERACTIVE MEDIA MARKETING STRATEGIST Most Recent Value STG Status continued, not met at 06/30/2018 111 STG Pt will complete curt manuever to improve airway protection to 10/10 opportunitie s after INTERACTIVE MEDIA MARKETING STRATEGIST instruction over 2 consecutive sessions. at 06/30/2018 111 LTG Status new at 06/29/2018 1259 LTG Pt will complete curt manuever to improve airway protection to 100% accuracy in 2 0 opportunities after INTERACTIVE MEDIA MARKETING STRATEGIST instruction over 2 consecutive sessions. at 06/29/2018 1259 Electronically signed by: Leila Romero Speech Pathologist, 06/30/2018 11:20 Goal Evaluation: TPlan of Care - Choco Abreu OT - 06/30/2018 10:25 AM PDTFormatting of this note might b e different from the original. Problem: Patient Care Overview (Adult) Goal: Care Team Goals & Evaluation PROBLEM-RELATED GOALS: 1. Ed will remain free from all falls and injuries through 07/04/18 2. Ed's skin will remain intact and any impairments will show signs of healing by 3. Ed will ambulated with FWW and physical therapy by 07/04/18 4. Ed will have no deterioration in his neuro assessment through 07/04/18 5. Ed will be continent of bowel and bladder and will not have any accidents through 6. Ed will have no s/sx of aspiration through 07/04/18 7. Pt will be Mod I in transfers and amb using bariatric FWW by 07/14/18. 8. Pt will tolerate dysphagia advanced foods and nectar thick liquids with no overt s/sx of airway compromise by 07/04/2018 9. Ed will use his own NIV during this admit. Reevaluate goal by 07-06-2018 STRATEGY TO ACHIEVE GOALS: - Perform purposeful rounding, ensure call light is within reach and provide supervision fo r all OOB activity - Assist patient with repositioning in bed, perform incontinence care if needed and monitor for signs of skin breakdown - Encourage active participation in PT/OT - Perform neuro assessment Qshift and notify MD of any decline - Assist with toileting, encourage fluid intake for bowel and bladder function - Provide altered textures and thickened fluids and ensure patient is sitting upright for a ll oral intake - Full participation in PT session in functional mobility training. - Full participation in ST sessions - Rt to assist with home NIV unit as indicated and upon request. Outcome: Unchanged IRF Occupational Therapy Plan of Care Treatment Note Summary: Sarthak has been participating in occupational therapy for treatment of decrease d ADL performance, fxl mobility, activity tolerance, safety awareness s/p ischemic CGA, L si ded weakness. Emphasis of session included wound care/lymphedema wrap reassessment, bathing , UB dressing, toileting, and fxl t/fs. Patient demonstrates progress towards functional go als as evidenced by participation in tx with improved behavior, though still requires encour agement for progression and initiation in tasks in order to make tx therapeutic and producti ve. Removed BLE wraps, Dr. Salinas and RN arrived for wound and edema assessment. Discussed wit h , discontinued BLE wraps and handed off wound care management for lower RLE, two sm all wound areas, to nursing. Remaining barriers to discharge and functional limitations inc lude decreased insight into safety and deficits, decreased functional activity tolerance, de creased bed mobility, decreased functional transfers, decreased ability to perform ADLs, dec reased ability to perform IADLs, decreased ability to perform medication management, demonst rating need for 24/7 supervision, not yet able to mobilize at level safe for home discharge and medical status. Edward will benefit from continued therapeutic intervention to address ongoing impairments and increase safety and independence with activities necessary for safe discharge. Refer be low for specific details regarding functional levels. Occupational Therapy Discharge Recommendations are: Recommended discharge disposition: home with assist, long-term facility Post discharge occupational therapy recommendation: will benefit from structured setting, home health Equipment Recommendations: bariatric, commode (3 in 1), long handled sponge, grain oilseed or pasture farm worker, sock aide Planned Interventions:ADL retraining, balance training, bed mobility training, motor coordi nation training, neuromuscular re-education, fine motor coordination training, ROM (Range of Motion), strengthening, transfer training Recommended Frequency: other (see comments) (rehab schedule) Patient Status/Goals: Reflects last filed data and may be from multiple contributors. ADLs Pt completed bathing tasks with Mod A, assist with thoroughness in abdomen area, BLE for th oroughness d/t increased lotion residue, and thoroughness for buttocks. Pt reports that PLOF , a towel with soap is placed underneath buttocks, and pt shifts weight/slides on towel to w laureano buttocks. Towel with soap placed on chair, pt able to wash buttocks, though required lig ht assist for thoroughness. Pt is demonstrating improvement with use of LUE to wash RUE and armpit area, though pt c/o of pain during LUE movements. Bathing, Level of [place]: moderate assist (50% patient effort), set up required, verb al cues required Assistive Device: grab bars, hand-held shower head, shower chair with back Bathing Assess/Train, Position: sitting Bathing Assess/Train, Impairments: muscle tone abnormal, decreased flexibility, ROM decreas ed, sensation decreased, strength decreased, impaired balance, coordination impaired, motor control impaired, postural control impaired, sensory feedback impaired, pain (body habitus) Pt doffed clod puller shirt with SBA, donned clod puller shirt with Min A for adjustment in kianna k. Pt encouraged to reach back, however pt c/o of pain and stated "I can't reach back there. " UB Dressing, Level of [place]: set up required, tactile cues required, verbal cues req uired, minimal assist (75% patient effort) Assistive Device: none UB Dressing Assess/Train, Position: sitting UB Dressing Assess/Train, Impairments: muscle tone abnormal, decreased flexibility, ROM dec reased, sensation decreased, strength decreased, coordination impaired, motor control impair ed, postural control impaired, sensory feedback impaired, pain Declined LB dressing Pt completed toileting x2 this tx session, once with BSC over toilet, and once in shower ro om on BSC d/t urgency. Pt is not wearing underwear or pants, and required assist with perica re. Pt able to move long shirt out of the way. Toileting, Level of [place]: 1 person + 1 person to manage equipment, set up required, verbal cues required, tactile cues required, maximal assist (25% patient effort) Assistive Device: grab bar Toileting Assess/Train, Position: supported standing Toileting Assess/Train, Impairments: decreased flexibility, ROM decreased, strength decreas ed, impaired balance, coordination impaired, postural control impaired, pain, motor control impaired, muscle tone abnormal, sensation decreased, sensory feedback impaired (body habitus ) Functional Endurance Fair, pt cooperated during morning ADLs, though still requires extensive encouragement to p articipate with decreased assistance Cognitive Flat affect and calm through majority of session, fatigued towards end and started to get a gitated, requiring redirection Mood/Behavior: flat affect, calm Orientation: oriented x 4 Speech: slurred Bed Mobility NT, pt up in w/c upon arrival, returned to sitting up in w/c at end of tx session Transfers Pt completed transfers without use of FWW, vc's for body positioning. Pt used grab bars for shower and BSC transfer, CGA 1P+1P for safety/managing equipment. Extra time and effort. Sit-Stand, Level of [place]: minimal assist (75% patient effort), verbal cues required , 1 person + 1 person to manage equipment Stand-Sit, Level of [place]: 1 person + 1 person to manage equipment, contact guard as sist, verbal cues required, tactile cues required Idq-Axzwa-Osi, Assistive Device: wheelchair Toilet, Level of [place]: set up required, verbal cues required, contact guard assist, 1 person + 1 person to manage equipment Toilet, Assistive Device: bariatric, grab bars, commode (3 in 1) Walk-in shower, Level of [place]: 1 person + 1 person to manage equipment, set up requ ired, verbal cues required, contact guard assist Walk-in shower, Assistive Device: grab bars, shower chair Safety Issues: balance decreased during turns, sequencing ability decreased, step length de creased, weight-shifting ability decreased, loses balance backward Impairments: muscle tone abnormal, ROM decreased, sensation decreased, strength decreased, impaired balance, coordination impaired, motor control impaired, postural control impaired, sensory feedback impaired OT Goal Review Date Most Recent Value STG Review Date 06/30/18 at 06/23/201845 LTG Review Date 07/07/18 at 06/23/2018 0945 Grooming Goal Most Recent Value STG Status met at 06/24/2018 0850 STG [place] Level minimum assist (75% patient effort) at 06/23/201845 STG Position sitting in chair at 06/23/201845 STG Adaptive Equipment none at 06/23/201845 LTG Status revised at 06/30/2018 0922 LTG [place] Level stand by assist at 06/30/2018 0922 LTG Position sitting in chair at 06/23/2018 0945 LTG Adaptive Equipment none at 06/23/2018 0945 Bathing Goal Most Recent Value STG Status not met at 06/30/2018 0922 STG [place] Level minimum assist (75% patient effort), set up required, verbal cues r equired at 06/23/201845 STG Adaptive Equpiment grab bars, shower head, detachable, sponge, long handled, tub bench with back at 06/23/201845 STG Position sitting at 06/23/2018 0945 LTG Status revised at 06/30/2018 0922 LTG [place] Level minimum assist (75% patient effort) at 06/30/2018 0922 LTG Adaptive Equpiment grab bars, shower head, detachable, sponge, long handled, shower ch air with back at 06/30/2018 0922 LTG Position sitting at 06/30/2018 0922 UB Dressing Goal Most Recent Value STG Status not met at 06/30/2018 0922 STG [place] Level stand by assist, set up required at 06/23/2018 0945 STG Adaptive Equipment none at 06/23/2018 0945 LTG Status revised at 06/30/201822 LTG [place] Level stand by assist at 06/30/2018 0922 LTG Adaptive Equipment none at 06/23/2018 0945 LB Dressing Goal Most Recent Value STG Status not met at 06/30/2018921 STG [place] Level moderate assist (50% patient effort), set up required at 06/23/2018944 STG Adaptive Equipment grain oilseed or pasture farm worker, shoe horn, long handled, sock-aid at 06/23/2018944 LTG Status continued at 06/30/2018921 LTG [place] Level contact guard assist, set up required at 06/23/2018944 LTG Adaptive Equipment grain oilseed or pasture farm worker, shoe horn, long handled, sock-aid at 06/23/2018944 Toileting Goal Most Recent Value STG Status not met at 06/30/2018921 STG [place] Level minimum assist (75% patient effort), set up required, verbal cues r equired at 06/23/2018944 STG Assistive Device bariatric bedside commode, grab bar at 06/23/2018944 LTG Status revised at 06/30/2018921 LTG [place] Level minimum assist (75% patient effort) at 06/30/2018921 LTG Assistive Device bariatric bedside commode, grab bar at 06/23/2018944 Toilet Transfer Goal Most Recent Value STG Status met at 06/30/2018921 STG [place] Level contact guard assist at 06/23/201845 STG Assistive Device bariatric, commode (3 in 1), grab bars at 06/23/201845 LTG Status progressing at 06/30/2018921 LTG [place] Level stand by assist at 06/23/201845 LTG Assistive Device bariatric, commode (3 in 1), grab bars at 06/23/2018944 Tub/Shower Transfer Goal Most Recent Value Tub/Shower Type tub/shower combo at 06/23/201845 STG Status met at 06/30/2018921 STG [place] Level contact guard assist, set up required, verbal cues required at 12/201745 STG Assistive Device bariatric, tub bench, grab bars at 06/23/201845 LTG Status progressing at 06/30/2018921 LTG [place] Level stand by assist at 06/23/201845 LTG Assistive Device bariatric, tub bench, grab bars at 06/23/201845 Additional Goals #1 OT Most Recent Value STG Status met at 06/30/2018921 STG Pt will increase automatic L hand during fxl and ADL tasks by requiring Mod vc's at 1515 LTG Status progressing at 06/30/2018 0922 LTG Pt will increase automatic L hand during fxl and ADL tasks by requiring Min vc's at 1515 Additional Goals #2 OT Most Recent Value LTG Status met at 06/30/2018 0922 LTG pt will tolerate lymphedema and wound care management techniques to promote skin integ rity, reduce swelling, and promote overall participation in ADLs. at 06/26/2018 1050 Electronically signed by: Choco Abreu OT, 06/30/2018 11:38 lan of Care - Rocio Sanchez RN - 06/30/2018 7:42 AM PDTProblem: Patient Care Overview (Adult) Goal: Care Team Goals & Evaluation PROBLEM-RELATED GOALS: 1. Ed will remain free from all falls and injuries through 07/04/18 2. Ed's skin will remain intact and any impairments will show signs of healing by 3. Ed will ambulated with FWW and physical therapy by 07/04/18 4. Ed will have no deterioration in his neuro assessment through 07/04/18 5. Ed will be continent of bowel and bladder and will not have any accidents through 6. Ed will have no s/sx of aspiration through 07/04/18 7. Pt will be Mod I in transfers and amb using bariatric FWW by 07/14/18. 8. Pt will tolerate dysphagia advanced foods and nectar thick liquids with no overt s/sx of airway compromise by 07/04/2018 9. Ed will use his own NIV during this admit. Reevaluate goal by 07-06-2018 STRATEGY TO ACHIEVE GOALS: - Perform purposeful rounding, ensure call light is within reach and provide supervision fo r all OOB activity - Assist patient with repositioning in bed, perform incontinence care if needed and monitor for signs of skin breakdown - Encourage active participation in PT/OT - Perform neuro assessment Qshift and notify MD of any decline - Assist with toileting, encourage fluid intake for bowel and bladder function - Provide altered textures and thickened fluids and ensure patient is sitting upright for a ll oral intake - Full participation in PT session in functional mobility training. - Full participation in ST sessions - Rt to assist with home NIV unit as indicated and upon request. Outcome: Improving Goal Evaluation: Ed has been alert and oriented. He did not call for assistance, but was not impulsive durin g the night. He reported having pain 8/10 to his left shoulder and was given 2 norco, which he stated helped "some." Neurologically pt has a left droop and tongue deviation, 3/5 LUE an d 4/5 LLE. Pt has numbness to BLE as well but this is baseline. Noted left upper and lower l imb ataxia. He was up to the commode with 1 person CGA using his platform walker in order to have a BM. Pt requires help with wiping and handling clothing. He had 3 small to medium BM' s, 2 were incontinent. Continues with silva catheter at this time, urine output is adequate. Pt reported poor sleep. lan of Care - Camron Nowak V, PARTS DEPARTMENT SUPERVISOR - 06/29/2018 10:13 PM PDTProblem: Patient Care Overview (Adult) Goal: Care Team Goals & Evaluation PROBLEM-RELATED GOALS: 1. Ed will remain free from all falls and injuries through 07/04/18 2. Ed's skin will remain intact and any impairments will show signs of healing by 3. Ed will ambulated with FWW and physical therapy by 07/04/18 4. Ed will have no deterioration in his neuro assessment through 07/04/18 5. Ed will be continent of bowel and bladder and will not have any accidents through 6. Ed will have no s/sx of aspiration through 07/04/18 7. Pt will be Mod I in transfers and amb using bariatric FWW by 07/14/18. 8. Pt will tolerate dysphagia advanced foods and nectar thick liquids with no overt s/sx of airway compromise by 07/04/2018 9. Ed will use his own NIV during this admit. Reevaluate goal by 07-06-2018 STRATEGY TO ACHIEVE GOALS: - Perform purposeful rounding, ensure call light is within reach and provide supervision fo r all OOB activity - Assist patient with repositioning in bed, perform incontinence care if needed and monitor for signs of skin breakdown - Encourage active participation in PT/OT - Perform neuro assessment Qshift and notify MD of any decline - Assist with toileting, encourage fluid intake for bowel and bladder function - Provide altered textures and thickened fluids and ensure patient is sitting upright for a ll oral intake - Full participation in PT session in functional mobility training. - Full participation in ST sessions - Rt to assist with home NIV unit as indicated and upon request. Outcome: Unchanged Goal Evaluation: Edward oxygen saturation is SpO2: 96 % on non-invasive ventilation (i.e. bi-level), home u nit and a heart rate of 66. Breath sounds are clear, diminished, equal bilaterally . Pt has n o cough. Pt's respirations are no shortness of breath reported, pattern regular, depth regul ar, unlabored with expansion symmetric, no use of accessory muscles. lan of Care - Lei estrada, Tierney Allen RN - 06/29/2018 6:38 PM PDTProblem: Patient Care Overview (Adult) Goal: Care Team Goals & Evaluation PROBLEM-RELATED GOALS: 1. Ed will remain free from all falls and injuries through 07/04/18 2. Ed's skin will remain intact and any impairments will show signs of healing by 3. Ed will ambulated with FWW and physical therapy by 07/04/18 4. Ed will have no deterioration in his neuro assessment through 07/04/18 5. Ed will be continent of bowel and bladder and will not have any accidents through 6. Ed will have no s/sx of aspiration through 07/04/18 7. Pt will be Mod I in transfers and amb using bariatric FWW by 07/14/18. 8. Pt will tolerate dysphagia advanced foods and nectar thick liquids with no overt s/sx of airway compromise by 07/04/2018 9. Ed will use his own NIV during this admit. Reevaluate goal by 07-06-2018 STRATEGY TO ACHIEVE GOALS: - Perform purposeful rounding, ensure call light is within reach and provide supervision fo r all OOB activity - Assist patient with repositioning in bed, perform incontinence care if needed and monitor for signs of skin breakdown - Encourage active participation in PT/OT - Perform neuro assessment Qshift and notify MD of any decline - Assist with toileting, encourage fluid intake for bowel and bladder function - Provide altered textures and thickened fluids and ensure patient is sitting upright for a ll oral intake - Full participation in PT session in functional mobility training. - Full participation in ST sessions - Rt to assist with home NIV unit as indicated and upon request. Outcome: Improving Goal Evaluation: Pt had a swallow eval with xray today, speech stated they want to advance his diet tomorro w when they can talk to him about techniques to help him. Pt did not complain of as severe i tching, but still itches. Lymphedema wraps were changed and dressings changed to R lateral a nkle area. Pt complained of pain at the base of his penis, stating it felt like there was a rubber band around it. After evaluation only slight redness was seen, sheri area was very tramaine an and dry. Pt has been up in the chair and wheel chair. Pt calls appropriately. Blood sugar s have been WNL. Pt mobilizes with a fww and forearm trough. lan of Care - M Reshma gtz OT - 06/29/2018 3:28 PM PDTProblem: Patient Care Overview (Adult) Goal: Care Team Goals & Evaluation PROBLEM-RELATED GOALS: 1. Ed will remain free from all falls and injuries through 07/04/18 2. Ed's skin will remain intact and any impairments will show signs of healing by 3. Ed will ambulated with FWW and physical therapy by 07/04/18 4. Ed will have no deterioration in his neuro assessment through 07/04/18 5. Ed will be continent of bowel and bladder and will not have any accidents through 6. Ed will have no s/sx of aspiration through 07/04/18 7. Pt will be Mod I in transfers and amb using bariatric FWW by 07/14/18. 8. Pt will tolerate dysphagia advanced foods and nectar thick liquids with no overt s/sx of airway compromise by 07/04/2018 9. Ed will use his own NIV during this admit. Reevaluate goal by 07-06-2018 STRATEGY TO ACHIEVE GOALS: - Perform purposeful rounding, ensure call light is within reach and provide supervision fo r all OOB activity - Assist patient with repositioning in bed, perform incontinence care if needed and monitor for signs of skin breakdown - Encourage active participation in PT/OT - Perform neuro assessment Qshift and notify MD of any decline - Assist with toileting, encourage fluid intake for bowel and bladder function - Provide altered textures and thickened fluids and ensure patient is sitting upright for a ll oral intake - Full participation in PT session in functional mobility training. - Full participation in ST sessions - Rt to assist with home NIV unit as indicated and upon request. Outcome: Unchanged Therapy Plan of Care Missed Visit Note Patient Information Patient Name: Sarthak Nelson Date of : 1950 Age: 67 y.o. The patient was unable to be seen for today's scheduled visit due to pt refused to particip ate w/ OT in PM session. Initially did not respond to OT when greeted, CPAP in place. Gree lloyd again. Pt indicated something, OT was unable to understand and asked pt to repeat. Pt repeated again he just wanted to rest. Educated that pt needed to continue to participate, not refuse therapies. He then flung off the CPAP and threw it across the room. Stated "I'l l just do it then!!!," was very agitated. Allowed pt to make a decision on rest vs particip ation as in his agitated state therapy would not be productive. He indicated frustration th at we don't allow him to rest, but we want him to get better, etc. Pt elected to rest and s tated it will be better tomorrow. Plan: Monitor. Proceed tomorrow as pt tolerates. Electronically signed by: Reshma Oliveira OT, 06/29/2018 15:29 lan of Care - Aileen Laguna, CURB ATTENDANT - 06/29/2018 2:34 PM PDTProblem: Patient Care Overview (Adult) Goal: Care Team Goals & Evaluation PROBLEM-RELATED GOALS: 1. Ed will remain free from all falls and injuries through 07/04/18 2. Ed's skin will remain intact and any impairments will show signs of healing by 3. Ed will ambulated with FWW and physical therapy by 07/04/18 4. Ed will have no deterioration in his neuro assessment through 07/04/18 5. Ed will be continent of bowel and bladder and will not have any accidents through 6. Ed will have no s/sx of aspiration through 07/04/18 7. Pt will be Mod I in transfers and amb using bariatric FWW by 07/14/18. 8. Pt will tolerate dysphagia advanced foods and nectar thick liquids with no overt s/sx of airway compromise by 07/04/2018 9. Ed will use his own NIV during this admit. Reevaluate goal by 07-06-2018 STRATEGY TO ACHIEVE GOALS: - Perform purposeful rounding, ensure call light is within reach and provide supervision fo r all OOB activity - Assist patient with repositioning in bed, perform incontinence care if needed and monitor for signs of skin breakdown - Encourage active participation in PT/OT - Perform neuro assessment Qshift and notify MD of any decline - Assist with toileting, encourage fluid intake for bowel and bladder function - Provide altered textures and thickened fluids and ensure patient is sitting upright for a ll oral intake - Full participation in PT session in functional mobility training. - Full participation in ST sessions - Rt to assist with home NIV unit as indicated and upon request. Therapy Plan of Care Missed Visit Note Patient Information Patient Name: Sarthak Nelson Date of : 1950 Age: 67 y.o. The patient was unable to be seen for today's scheduled visit due to patient's refusal, efra pite being offered several different activities to participate in, he replied 4 times, ""I j ust want to sleep." Dr. Salinas was informed of patient's refusal. Plan: cont per POC as able Electronically signed by: Aileen Helms PTA, 06/29/2018 14:33 lan of Care - [place] in, Aileen Shea PTA - 06/29/2018 12:23 PM PDTFormatting of this note might be different from t nany original. Problem: Patient Care Overview (Adult) Goal: Care Team Goals & Evaluation PROBLEM-RELATED GOALS: 1. Ed will remain free from all falls and injuries through 07/04/18 2. Ed's skin will remain intact and any impairments will show signs of healing by 3. Ed will ambulated with FWW and physical therapy by 07/04/18 4. Ed will have no deterioration in his neuro assessment through 07/04/18 5. Ed will be continent of bowel and bladder and will not have any accidents through 6. Ed will have no s/sx of aspiration through 07/04/18 7. Pt will be Mod I in transfers and amb using bariatric FWW by 07/14/18. 8. Pt will tolerate dysphagia advanced foods and nectar thick liquids with no overt s/sx of airway compromise by 07/04/2018 9. Ed will use his own NIV during this admit. Reevaluate goal by 07-06-2018 STRATEGY TO ACHIEVE GOALS: - Perform purposeful rounding, ensure call light is within reach and provide supervision fo r all OOB activity - Assist patient with repositioning in bed, perform incontinence care if needed and monitor for signs of skin breakdown - Encourage active participation in PT/OT - Perform neuro assessment Qshift and notify MD of any decline - Assist with toileting, encourage fluid intake for bowel and bladder function - Provide altered textures and thickened fluids and ensure patient is sitting upright for a ll oral intake - Full participation in PT session in functional mobility training. - Full participation in ST sessions - Rt to assist with home NIV unit as indicated and upon request. Outcome: Improving IRF Physical Therapy Plan of Care Treatment Note Summary: Sarthak has been participating in physical therapy for treatment of Impaired audra ce, gait instability, (L) sided neglect, (L) zena paresis who was admitted d/t CVA. on CT s can, Stable appearance of the right insula acute to subacute infarction. Hx of previous CVA affecting (R) side.. Emphasis of session included strengthening with there ex. Patient i nitially refused any OOB activity, but when asked by Dr. Salinas to get OOB, he agreed. Patien t cont's to display contrary behaviors: ie: using heavy weight in LUE, although it was expla ined to him that this may increase pain. Patient demonstrates progress towards functional g oals as evidenced by patient's improved transfer ability. Remaining barriers to discharge a nd functional limitations include decreased insight into safety and deficits, decreased func tional activity tolerance, decreased bed mobility, decreased functional transfers, decreased functional gait distance, decreased gait velocity, stairs at home, not able to navigate sta irs, demonstrating need for 24/7 supervision, unsafe discharge disposition and [facility] indicat ing significant impairment with basic functional mobility. Edward will benefit from continued therapeutic intervention to address ongoing impairments and increase safety and independence with activities necessary for safe discharge. Refer be low for specific details regarding functional levels. Physical Therapy Discharge Recommendations are: Recommended discharge disposition: home with assist Post discharge physical therapy recommendation: home health Equipment Recommendations: bariatric, 2 wheeled walker (FWW) Planned Interventions: balance training, bed mobility training, gait training, home exerci se program, lumbar stabilization, manual therapy techniques, motor coordination training, st air training, strengthening, ROM (Range of Motion), postural re-education, patient/family ed ucation, neuromuscular re-education, transfer training, wheelchair management/propulsion tra ining Frequency: daily (1-2x/day) Patient Status/Goals: Reflects last filed data and may be from multiple contributors. Bed Mobility impulsive, fast movements, no physical assist required Assistive Device: bed rails, HOB elevated, overhead trapeze Roll Left, Level of Hammond: stand by assist, verbal cues required Roll Right, Level of [place]: not tested Scoot/Bridge, Level of [place]: moderate assist (50% patient effort), set up required, verbal cues required, tactile cues required Supine to Sit, Level of [place]: set up required, verbal cues required, tactile cues r equired, 1 person + 1 person to manage equipment, moderate assist (50% patient effort) Sit to Supine, Level of Hammond: not tested Safety Issues: decreased use of arms for pushing/pulling, decreased use of legs for bridgi ng/pushing, impaired trunk control for bed mobility Impairments: muscle tone abnormal, decreased flexibility, strength decreased, impaired demi nce, coordination impaired, motor control impaired, postural control impaired, sensory feedb ack impaired Transfers transferred from bed to chair without AD Bed-Chair, Level of [place]: minimal assist (75% patient effort), 2 person assist requ ired, verbal cues required Chair-Bed, Level of Hammond: not tested [id number], Assistive Device: wheelchair, 2 wheeled walker (FWW), platform attachment Sit-Stand, Level of [place]: minimal assist (75% patient effort), 2 person assist requ ired, verbal cues required Stand-Sit, Level of Hammond: not tested [id number]-Uur, Assistive Device: none Safety Issues: balance decreased during turns, sequencing ability decreased, step length de creased, weight-shifting ability decreased, loses balance backward Impairments: muscle tone abnormal, ROM decreased, sensation decreased, strength decreased, impaired balance, coordination impaired, motor control impaired, postural control impaired, sensory feedback impaired Balance gait velocity= 0.2 m/sec. Sitting Balance: Static: good balance Sitting Balance: Dynamic: good balance Standing Balance: Static: poor balance Standing Balance: Dynamic: poor balance Therapeutic Exercise agrees only to bed exs: 3# weight on RU/LE, 1# weight in left hand Bed exercises: short arc quads Functional Endurance poor, refuses participation in OOB activities, until Dr. Salinas coerced him to get out of bed PT Goal Review Date Most Recent Value STG Review Date 06/30/18 at 06/23/2018 0915 LTG Review Date 07/14/18 at 06/23/2018 0915 Doqsyc-Cvw-Akvpcs Goal Most Recent Value STG Status progressing at 06/29/2018 1150 STG Hammond Level supervised at 06/23/2018 0915 STG Assistive Device bed rails, overhead trapeze at 06/23/2018 0915 LTG Status new at 06/23/2018 0915 LTG [place] Level modified independent at 06/23/2018 0915 LTG Assistive Device bed rails, overhead trapeze at 06/23/2018 0915 Acg-Ghkux-Oyi Goal Most Recent Value STG Status progressing at 06/29/2018 1150 STG [place] Level contact guard assist at 06/23/2018 0915 STG Assistive Device 2 wheeled walker (FWW), bariatric at 06/23/2018 0915 LTG Status continued at 06/26/2018 1749 LTG [place] Level modified independent at 06/23/2018 0915 LTG Assistive Device 2 wheeled walker (FWW), bariatric, 4 wheeled walker (4WW) at 06/23/20 18 0915 Knp-Cxujx-Fet Goal Most Recent Value STG Status progressing at 06/29/2018 1150 Gait Goal Most Recent Value STG Status progressing at 06/28/2018 1435 STG [place] Level contact guard assist at 06/23/2018 0915 STG Assistive Device bariatric, 2 wheeled walker (FWW) at 06/23/2018 0915 STG Comments 50' at 06/23/2018 0915 LTG Status new at 06/23/2018 0915 LTG [place] Level modified independent at 06/23/2018 0915 LTG Assistive Device 2 wheeled walker (FWW), bariatric, 4 wheeled walker (4WW) at 06/23/20 18 0915 LTG Distance (feet) 50' x 3 at 06/23/2018 0915 LTG Comments ramps at 06/23/2018 0915 Wheelchair Goal Most Recent Value STG Status continued at 06/27/2018 1157 STG Pt will propel a manual wheelchair 50 feet with Min A to improve his independence at 1 1206 LTG Status new at 06/26/2018 1206 LTG Pt will propel a manual wheelchair 100 feet with Sup to improve his independence at 1206 Electronically signed by: Aileen Helms PTA, 06/29/2018 12:20 lan of Care - Anna Scott COTA - 06/29/2018 11:08 AM PDTFormatting of this note might be different from th e original. Problem: Patient Care Overview (Adult) Goal: Care Team Goals & Evaluation PROBLEM-RELATED GOALS: 1. Ed will remain free from all falls and injuries through 07/04/18 2. Ed's skin will remain intact and any impairments will show signs of healing by 3. Ed will ambulated with FWW and physical therapy by 07/04/18 4. Ed will have no deterioration in his neuro assessment through 07/04/18 5. Ed will be continent of bowel and bladder and will not have any accidents through 6. Ed will have no s/sx of aspiration through 07/04/18 7. Pt will be Mod I in transfers and amb using bariatric FWW by 07/14/18. 8. Pt will tolerate dysphagia advanced foods and nectar thick liquids with no overt s/sx of airway compromise by 07/04/2018 9. Ed will use his own NIV during this admit. Reevaluate goal by 07-06-2018 STRATEGY TO ACHIEVE GOALS: - Perform purposeful rounding, ensure call light is within reach and provide supervision fo r all OOB activity - Assist patient with repositioning in bed, perform incontinence care if needed and monitor for signs of skin breakdown - Encourage active participation in PT/OT - Perform neuro assessment Qshift and notify MD of any decline - Assist with toileting, encourage fluid intake for bowel and bladder function - Provide altered textures and thickened fluids and ensure patient is sitting upright for a ll oral intake - Full participation in PT session in functional mobility training. - Full participation in ST sessions - Rt to assist with home NIV unit as indicated and upon request. IRF Occupational Therapy Plan of Care Missed Visit (patient declined) Note Summary: Sarthak has been participating in occupational therapy for treatment of decreased ADL performance, fxl mobility, activity tolerance, safety awareness s/p ischemic CGA, L side d weakness. Emphasis of session included sponge bathing, dressing, and edema management/re moval reapplication of coban II system compression wraps to BLE for edema reducation and to promote healing on wounds on RLE. RN Karthik came in room to assess progress and completed wound care/dressing changes to RLE. Skin care provided to BLE,washed/dry lotioned and coban II s ystem wraps reapplied to BLE to promote lymphatic drainage. Patient demonstrates progress towards functional goals as evidenced by participation in tx and completing grooming w/ set up. Noted good progress w/ edema reduction as tissue on LLE felt less fibrotic and softer to the touch and no drainage noted on small wounds on lateral side of RLE. Pt is tolerating c ompression wraps w/o c/o of discomfort. Remaining barriers to discharge and functional limit ations include decreased insight into safety and deficits, decreased functional activity geovani erance, decreased bed mobility, decreased functional transfers, decreased ability to perform ADLs, decreased ability to perform IADLs, decreased ability to perform medication managemen t, lives alone, demonstrating need for 24/7 supervision, not yet able to mobilize at level s afe for home discharge and medical status. Sarthak will benefit from continued therapeutic intervention to address ongoing impairments and increase safety and independence with activities necessary for safe discharge. Refer be low for specific details regarding functional levels. Occupational Therapy Discharge Recommendations are: Recommended discharge disposition: home with assist, long-term facility Post discharge occupational therapy recommendation: will benefit from structured setting, home health Equipment Recommendations: bariatric, commode (3 in 1), long handled sponge, grain oilseed or pasture farm worker, sock aide Planned Interventions:ADL retraining, balance training, bed mobility training, motor coordi nation training, neuromuscular re-education, fine motor coordination training, ROM (Range of Motion), strengthening, transfer training Recommended Frequency: other (see comments) (rehab schedule) Patient Status/Goals: Reflects last filed data and may be from multiple contributors. ADLs Refused OOB activities and c/o f catheter discomfort and seen for morning self cares seated in bed w/ set up/cues assist Sponge bathed seated in bed Mod A/setup and dep w/ pericare Bathing, Level of [place]: moderate assist (50% patient effort), set up required, verb al cues required Assistive Device: none, other (see comments) (seated in bed) Bathing Assess/Train, Position: sitting Bathing Assess/Train, Impairments: muscle tone abnormal, decreased flexibility, ROM decreas ed, sensation decreased, strength decreased, impaired balance, coordination impaired, motor control impaired, postural control impaired, sensory feedback impaired (body habitus) Donned gown cga/set up UB Dressing, Level of [place]: set up required, tactile cues required, contact guard a ssist, verbal cues required Assistive Device: none UB Dressing Assess/Train, Position: sitting UB Dressing Assess/Train, Impairments: muscle tone abnormal, decreased flexibility, ROM dec reased, sensation decreased, strength decreased, coordination impaired, motor control impair ed, postural control impaired, sensory feedback impaired Pt declined L/B dressing Groomed w/ set up Grooming, Level of [place]: set up required Assistive Device: none Grooming Assess/Train, Position: sitting Grooming Assess/Train, Impairments: ROM decreased, sensation decreased, strength decreased, postural control impaired, motor control impaired, coordination impaired, sensory feedback impaired Functional Endurance Poor and refused OOB activities Bed Mobility Pt able to roll from side to side SBA/cues for therapist to assist w/ pericare Assistive Device: bed rails, HOB elevated, overhead trapeze Roll Left, Level of [place]: stand by assist, verbal cues required Roll Right, Level of [place]: stand by assist,verbal cues required Safety Issues: decreased use of arms for pushing/pulling, decreased use of legs for bridgin g/pushing, impaired trunk control for bed mobility Impairments: muscle tone abnormal, decreased flexibility, strength decreased, impaired demi nce, coordination impaired, motor control impaired, postural control impaired, sensory feedb ack impaired, pain Transfers NT pt declined OOB activities OT Goal Review Date Most Recent Value STG Review Date 06/30/18 at 06/23/2018 0945 LTG Review Date 07/07/18 at 06/23/2018 0945 Grooming Goal Most Recent Value STG Status met at 06/24/2018 0850 STG [place] Level minimum assist (75% patient effort) at 06/23/2018 0945 STG Position sitting in chair at 06/23/2018 0945 STG Adaptive Equipment none at 06/23/2018 0945 LTG Status progressing at 06/29/2018 1000 LTG [place] Level supervised at 06/25/2018 1101 LTG Position sitting in chair at 06/23/2018 0945 LTG Adaptive Equipment none at 06/23/2018 0945 Bathing Goal Most Recent Value STG Status progressing at 06/29/2018 1000 STG [place] Level minimum assist (75% patient effort), set up required, verbal cues r equired at 06/23/2018 0945 STG Adaptive Equpiment grab bars, shower head, detachable, sponge, long handled, tub bench with back at 06/23/2018 0945 STG Position sitting at 06/23/2018 0945 LTG Status progressing at 06/29/2018 1000 LTG [place] Level contact guard assist at 06/23/2018 0945 LTG Adaptive Equpiment grab bars, shower head, detachable, sponge, long handled, tub bench with back at 06/23/2018 0945 LTG Position sitting at 06/23/2018 0945 UB Dressing Goal Most Recent Value STG Status continued at [id number] STG [place] Level stand by assist, set up required at 06/23/2018 0945 STG Adaptive Equipment none at 06/23/2018 0945 LTG Status continued at 06/29/2018 1000 LTG [place] Level supervised, set up required at 06/23/2018 0945 LTG Adaptive Equipment none at 06/23/2018 0945 LB Dressing Goal Most Recent Value STG Status progressing at 06/24/2018 0850 STG [place] Level moderate assist (50% patient effort), set up required at 06/23/2018 0945 STG Adaptive Equipment grain oilseed or pasture farm worker, shoe horn, long handled, sock-aid at 06/23/2018 0945 LTG Status progressing at 06/24/2018 0850 LTG [place] Level contact guard assist, set up required at 06/23/2018 0945 LTG Adaptive Equipment grain oilseed or pasture farm worker, shoe horn, long handled, sock-aid at 06/23/2018 0945 Toileting Goal Most Recent Value STG Status continued at 06/28/2018 0932 STG [place] Level minimum assist (75% patient effort), set up required, verbal cues r equired at 06/23/2018 0945 STG Assistive Device bariatric bedside commode, grab bar at 06/23/2018 0945 LTG Status progressing at 06/25/2018 1101 LTG [place] Level contact guard assist at 06/23/2018 0945 LTG Assistive Device bariatric bedside commode, grab bar at 06/23/2018 0945 Toilet Transfer Goal Most Recent Value STG Status progressing at 06/25/2018 1101 STG [place] Level contact guard assist at 06/23/2018 0945 STG Assistive Device bariatric, commode (3 in 1), grab bars at 06/23/2018 0945 LTG Status progressing at 06/25/2018 1101 LTG [place] Level stand by assist at 06/23/2018 0945 LTG Assistive Device bariatric, commode (3 in 1), grab bars at 06/23/2018 0945 Tub/Shower Transfer Goal Most Recent Value Tub/Shower Type tub/shower combo at 06/23/2018 0945 STG Status progressing at 06/27/2018 0930 STG [place] Level contact guard assist, set up required, verbal cues required at 12/2017 0945 STG Assistive Device bariatric, tub bench, grab bars at 06/23/2018 0945 LTG Status progressing at 06/25/2018 1101 LTG [place] Level stand by assist at 06/23/2018 0945 LTG Assistive Device bariatric, tub bench, grab bars at 06/23/2018 0945 Additional Goals #1 OT Most Recent Value STG Status progressing at 06/28/2018 0932 STG Pt will increase automatic L hand during fxl and ADL tasks by requiring Mod vc's at 1515 LTG Status new at 06/24/2018 1515 LTG Pt will increase automatic L hand during fxl and ADL tasks by requiring Min vc's at 1515 Additional Goals #2 OT Most Recent Value LTG Status progressing at 06/29/2018 1000 LTG pt will tolerate lymphedema and wound care management techniques to promote skin integ rity, reduce swelling, and promote overall participation in ADLs. at 06/26/2018 1050 Electronically signed by: JAYMIE Henao, 06/29/2018 15:47 lan of Care - Leila Sharma, Speech Pathologist - 06/29/2018 9:25 AM PDT Problem: Patient Care Overview (Adult) Goal: Care Team Goals & Evaluation PROBLEM-RELATED GOALS: 1. Ed will remain free from all falls and injuries through 07/04/18 2. Ed's skin will remain intact and any impairments will show signs of healing by 3. Ed will ambulated with FWW and physical therapy by 07/04/18 4. Ed will have no deterioration in his neuro assessment through 07/04/18 5. Ed will be continent of bowel and bladder and will not have any accidents through 6. Ed will have no s/sx of aspiration through 07/04/18 7. Pt will be Mod I in transfers and amb using bariatric FWW by 07/14/18. 8. Pt will tolerate dysphagia advanced foods and nectar thick liquids with no overt s/sx of airway compromise by 07/04/2018 9. Ed will use his own NIV during this admit. Reevaluate goal by 07-06-2018 STRATEGY TO ACHIEVE GOALS: - Perform purposeful rounding, ensure call light is within reach and provide supervision fo r all OOB activity - Assist patient with repositioning in bed, perform incontinence care if needed and monitor for signs of skin breakdown - Encourage active participation in PT/OT - Perform neuro assessment Qshift and notify MD of any decline - Assist with toileting, encourage fluid intake for bowel and bladder function - Provide altered textures and thickened fluids and ensure patient is sitting upright for a ll oral intake - Full participation in PT session in functional mobility training. - Full participation in ST sessions - Rt to assist with home NIV unit as indicated and upon request. Outcome: Improving Speech Therapy VFSS/MBS Evaluation Date: 06/29/2018 Patient Information Patient Name: Sarthak Nelson Date of : 1950 Age: 67 y.o. DYSPHAGIA DIAGNOSIS: Mild-moderate dysphagia - potential for aspiration exists but is dimin ished by specific swallow techniques and a modified diet. Time for eating may be significant ly increased DIET RECOMMENDATIONS: Foods: Level 3: Dysphagia advanced Drinks: Harrold thick liquids with meals and Thin liquids between meals STRATEGIES: Posture: Sitting upright (90 degrees) and Chin tuck Behavior: Small bites or sips, Alternate liquids and solids, Control rate and amount, Double swallow, Multiple swallows, No straws and Liquids from cup ASSESSMENT: Sarthak was seen for a Modified Barium Swallow study (MBS) to determine cause and severit y of dysphagia. Chart review reveals history of R insula CVA and history of other CVAs, lef t facial droop, left UE/LE weakness, dysarthria with intelligibility rating informally at 90 % in conversation. Further assessment specific to right hemisphere dysfunction may be bianca desai. Sarthak was challenged with ground solids 1/4 inch, chopped solids 1/2 inch, mixed solid and liquid, bread, cracker, thin liquid and nectar think liquid by cup and straw mixed with bar ium under fluoroscopy using the right lateral view. He did demonstrate laryngeal penetratio n and trace tracheal aspiration during the MBS with large sip of thin liquids by straw with cough reflex. See below for details on the oral motor exam, and detailed observations noted per swallow phase. Pt exhibited deficits with airway protection secondary to reduced laryng eal vestibular closure during swallow likely from reduced hyolaryngeal elevation (excursion intact) which contributed to penetration with nectar thick and thin liquids and trace aspira tion with thin liquids by cup. Oral and pharyngeal clearance WFL. Strategies trialed were ch in tuck effective, small vs large boluses effective with small bolus, 3 second swallow hold not effective. INTERACTIVE MEDIA MARKETING STRATEGIST plan to provide explanation of MBS performance and recommendations to Pt at next schedu led visit in IRF. INTERACTIVE MEDIA MARKETING STRATEGIST will educate on diet recommendations, postural strategies, behavioral strategies and oral motor/ swallow exercises. See above for INTERACTIVE MEDIA MARKETING STRATEGIST diet recommendation. INTERACTIVE MEDIA MARKETING STRATEGIST s poke with RN regarding recommendations. Swallow Function: Behavior: alert Respiration: WNL; room air Lips: Abnormal - L decreased ROM/strength Buccal: Abnormal - L decreased ROM/strength Jaw: Abnormal - L decreased ROM/strength Lingual: Abnormal - L decreased ROM Teeth: Absent Dentures: None Second Baker: not equal,left-sided nondominant weakness Speech: Ukrainian speaking, Abnormal -dysarthric speech noted Volitional swallow: WFL Volitional cough: effective Mucosa: WNL Voice: Normal Observations in order of swallow phase: Oral: Reduced lateral mastication pattern noted with tongue mashing of all solids with geno d peices of unchewed food swallowed. Trace residue coating structures. Mild left lateral jesus gual residue after swallow of chopped, cleared with liquid wash. Oral preparatory: Intermittent loss of bolus control with nectar thick liquid by cup (serie s #5, 9:13:55). Pharyngeal: Trace penetration to level of vocal folds during swallow with NTL (series #4, 9 :13:43) and thin liquids by cup. Less penetration with smaller sips of liquids. Adequate hyo id excursion, reduced elevation noted across all consistencies. Swallow trigger in pyriforms noted with large sips of thin liquids by cup. Trace aspiration during swallow thin liquids by straw (series #14, 9:21:50) with cough reflex. Esophageal: WNL on limited R lateral view. Mild moderate dysphagia with risk for aspiration. VSFF: Rosenbek's Penetration Aspiration Scale Results 6 - contrast passes glottis, no subglottic residue remains (aspiration) Dysphagia Outcome and Severity Scale: Sarthak is currently at a Level 4 - mild-moderate dysphagia: intermittent supervision/cueing , one or two consistencies restricted. This score indicates that full per-oral nutrition (P. O.) with modified diet and/or independence is appropriate. Sarthak may exhibit one or more of the following: Aspiration with one consistency, with weak or no reflexive cough or airway penetration to t he level of the vocal cords with cough with two consistencies Level As Indicated by: Full per-oral nutrition (P.O.): Normal Diet Level 7: Normal in all situations May exhibit one or more of the following: - Normal Diet - No strategies or extra time needed Level 6: Within functional limits/modified independence May exhibit one or more of the following: - Normal diet, functional swallow - Patient may have mild oral or pharyngeal delay, retention or trace epiglottal undercoatin g but independently and spontaneously compensates/ clears - May need extra time for meals - Have no aspiration or penetration across consistencies Full P.O.: Modified diet and/or independence Level 5: Mild dysphagia: Distant supervision, may need one diet consistency restricted May exhibit one or more of the following: - Aspiration of thin liquids only but with strong reflexive cough to clear completely - Airway penetration midway to cords with one or more consistency or to cord with one consi stency but clears spontaneously - Retention in pharynx that is cleared spontaneously - Mild oral dysphagia with reduced mastication and/or oral retention that is cleared sponta neously Level 4: Mild-moderate dysphagia: Intermittent supervision/cueing, one or two consistencies restricted X Exhibits the following: -airway penetration to the level of the vocal cords with cough with two consistencies Level 3: Moderate dysphagia: Total assist, supervision, or strategies, two or more consiste ncies May exhibit one or more of the following: - Moderate retention in pharynx, cleared with cue - Moderate retention in oral cavity, cleared with cue - Airway penetration to the level of the vocal cords without cough with two or more consist encies or aspiration with two consistencies, with weak or no reflexive cough - Airway penetration to the level of the vocal cords without cough with two or more consist encies or aspiration with one consistency, no cough and airway penetration to cords with one , no cough Non-oral nutrition necessary Level 2: Moderately severe dysphagia: Maximum assistance or use of strategies with partial P.O. only (tolerates at least one consistency safely with total use of strategies) May exhibit one or more of the following: - Severe retention in pharynx, unable to clear or needs multiple cues - Severe oral stage bolus loss or retention, unable to clear or needs multiple cues - Aspiration with two or more consistencies, no reflexive cough, weak or volitional cough - Aspiration with one or more consistency, no cough and airway penetration to cords with on e or more consistency, no cough Level 1: Severe dysphagia: NPO: Unable to tolerate any P.O. Safely May exhibit one or more of the following: - Severe retention in pharynx, unable to clear - Severe oral stage bolus loss or retention, unable to clear - Silent aspiration with two or more consistencies, nonfunctional volitional cough - Unable to achieve swallow REHABILITATION POTENTIAL: Patient demonstrates good potential to achieve established goals and to address the above documented impairments and to reach the following functional goals by participating in skilled speech language pathology therapy services. Cognition Goal Most Recent Value STG Status met at 06/29/2018 1259 STG Pt will participate in full cognitive/com assessment to determine cause severity and update POC. at 06/29/2018 1259 Dysphagia Goal Most Recent Value STG Status new at 06/29/2018 1259 STG Pt will complete chin tuck prior to swallow of thin liquids by cup to improve airway p rotection in 100% of swallows with min cues. at 06/29/2018 1259 LTG Status new at 06/29/2018 1259 LTG Pt will complete chin tuck prior to swallow of thin liquids by cup to improve airway p rotection in 100% of swallows with no cues. at 06/29/2018 1259 Solid Texture Goal Most Recent Value STG Status continued at 06/28/2018 1343 STG Pt will tolerate dysphagia advanced foods with no overt s/sx of airway compromise at 06/28/2018 1343 LTG Status continued at 06/28/2018 1343 LTG Pt will tolerate dental soft foods cut up with no overt s/sx of airway compromise at 1 1343 Liquid Texture Goal Most Recent Value STG Status new at 06/23/2018 1534 STG Pt will tolerate nectar thick liquids by cup/straw with no s/sx of airway compromise a t 06/23/2018 1534 LTG Status new at 06/23/2018 1534 LTG Pt will tolerate thin liquids by cup with no overt s/sx of airway compromise at 2017 1534 Additional Goals #1 INTERACTIVE MEDIA MARKETING STRATEGIST Most Recent Value STG Status continued at 06/28/2018 1343 STG Pt will complete oral motor exercises for improved facial droop with 75% accuracy and min cues. at 06/28/2018 1343 LTG Status new, met at 06/28/2018 1343 LTG Pt will complete cog/ comm assessment to determine strengths/ weaknesses prior to DC. at 06/28/2018 1343 Additional Goals #2 INTERACTIVE MEDIA MARKETING STRATEGIST Most Recent Value STG Status new at 06/29/2018 1259 STG Pt will complete curt manuever to improve airway protection to 10/10 opportunitie s after INTERACTIVE MEDIA MARKETING STRATEGIST instruction over 2 consecutive sessions. at 06/29/2018 1259 LTG Status new at 06/29/2018 1259 LTG Pt will complete curt manuever to improve airway protection to 100% accuracy in 2 0 opportunities after INTERACTIVE MEDIA MARKETING STRATEGIST instruction over 2 consecutive sessions. at 06/29/2018 1259 Electronically signed by: Leila Romero, Speech Pathologist, 06/29/2018 13:06 Goal Evaluation: TPlan of Care - Eden Andrew Иван, PARTS DEPARTMENT SUPERVISOR - 06/29/2018 8:12 AM PDT Problem: Patient Care Overview (Adult) Goal: Care Team Goals & Evaluation PROBLEM-RELATED GOALS: 1. Ed will remain free from all falls and injuries through 07/04/18 2. Ed's skin will remain intact and any impairments will show signs of healing by 3. Ed will ambulated with FWW and physical therapy by 07/04/18 4. Ed will have no deterioration in his neuro assessment through 07/04/18 5. Ed will be continent of bowel and bladder and will not have any accidents through 6. Ed will have no s/sx of aspiration through 07/04/18 7. Pt will be Mod I in transfers and amb using bariatric FWW by 07/14/18. 8. Pt will tolerate dysphagia advanced foods and nectar thick liquids with no overt s/sx of airway compromise by 07/04/2018 9. Ed will use his own NIV during this admit. Reevaluate goal by 07-06-2018 STRATEGY TO ACHIEVE GOALS: - Perform purposeful rounding, ensure call light is within reach and provide supervision fo r all OOB activity - Assist patient with repositioning in bed, perform incontinence care if needed and monitor for signs of skin breakdown - Encourage active participation in PT/OT - Perform neuro assessment Qshift and notify MD of any decline - Assist with toileting, encourage fluid intake for bowel and bladder function - Provide altered textures and thickened fluids and ensure patient is sitting upright for a ll oral intake - Full participation in PT session in functional mobility training. - Full participation in ST sessions - Rt to assist with home NIV unit as indicated and upon request. Outcome: Unchanged Goal Evaluation: SpO2: 98 % on room air and BS clear with diminished bases. RT assisting with home NIV. Ho me regimen is NIV 04/09 with 2 lpm Oxygen bleed-in. Smoked for about 20 years and states he does not use anything for his breathing other than th NIV. Severity Score 7 Class 2 Severity Score 0-4 ITEM 0 1 2 3 4 2 Respiratory History No Smoking history Current tobacco use Up to 10 Pack year history. Simple home regimen Known Pulmonary Disease 20 pack year history Complex Home regimen 30+ pack year history Severe Pulmonary Disease or exacerbation 0 Surgery Status (current admission) No surgery Minor surgery Lower abdominal rib fractures Thoracic or uppe r abdominal Thoracic with pulmonary disease or Central Nervous System 1 Chest X-RAY Clear or Normal baseline Unavailable Improving/clearing Abnormal, Unilateral or mild Infiltrates or atelectasis, Chronic changes Infiltrates mild bilateral or unilateral or pleural effusions extensive Inf iltrates, atelectasis or pleural effusions, pneumothorax 2 Respiratory Pattern Regular pattern Respiratory Rate:8-20 Increased Respiratory Rate, labored Dyspnea on exertion, irregular pattern Use of accessory muscles, prolonged expirato ry phase nasal flaring Severe Dyspnea , Purse Lip Breathing, Use of accessory muscles 2 Breath Sounds Clear Diminished unilaterally Diminished bilaterally &/or crackles Wheezing or Rhonchi &/or absent unilateral Absent bilaterally 0 Cough Strong, non productive Moderate, loose, productive Weak, non-productive Weak, ineffective Non-spontaneous or may require suctioning 0 Sputum None Scant / Thin White/clear Moderate Beige/ yellow Large / Thick Dark Green/Brown Copious / Plugs Hemoptysis sandra 0 LOC Alert, oriented, cooperative Disoriented, follows commands Obtunded, arousable, follo ws commands Obtunded, uncooperative, sedated Comatose 0 Oxygen Demand Room air Baseline 1-2 liters 3-6 liters >7 Liters Oxymizer to > 55% 60% or greater Total Severity Score (SS) Class 0-3 PRN 1 4-7 TID or PRN 2 8-11 QID 3 12-14 Q4 W/A 4 15+ Q4 5 lan of Care - Rocio Sanchez RN - 06/29/2018 7:49 AM PDTProblem: Patient Care Overview (Adult) Goal: Care Team Goals & Evaluation PROBLEM-RELATED GOALS: 1. Ed will remain free from all falls and injuries through 07/04/18 2. Ed's skin will remain intact and any impairments will show signs of healing by 3. Ed will ambulated with FWW and physical therapy by 07/04/18 4. Ed will have no deterioration in his neuro assessment through 07/04/18 5. Ed will be continent of bowel and bladder and will not have any accidents through 6. Ed will have no s/sx of aspiration through 07/04/18 7. Pt will be Mod I in transfers and amb using bariatric FWW by 07/14/18. 8. Pt will tolerate dysphagia advanced foods and nectar thick liquids with no overt s/sx of airway compromise by 07/04/2018 STRATEGY TO ACHIEVE GOALS: - Perform purposeful rounding, ensure call light is within reach and provide supervision fo r all OOB activity - Assist patient with repositioning in bed, perform incontinence care if needed and monitor for signs of skin breakdown - Encourage active participation in PT/OT - Perform neuro assessment Qshift and notify MD of any decline - Assist with toileting, encourage fluid intake for bowel and bladder function - Provide altered textures and thickened fluids and ensure patient is sitting upright for a ll oral intake - Full participation in PT session in functional mobility training. - Full participation in ST sessions Outcome: Improving Goal Evaluation: Ed has been alert and oriented. He did not call for assistance, but was not impulsive duri ng the night. He reported having pain 8/10 to his left shoulder and was given 2 norco, which he stated helped "some." Neurologically pt has a left droop and tongue deviation, 3/5 LUE a nd 4/5 LLE. Pt has numbness to BLE as well but this is baseline. Noted left upper and lower limb ataxia. He did not get out of bed during the shift but needed some assist with bed mobi nash. Continues with his silva catheter at this time, urine output is adequate. LBM 06/28. lan of Care - Camron Nowak V, PARTS DEPARTMENT SUPERVISOR - 06/29/2018 1:36 AM PDTProblem: Patient Care Overview (Adult) Goal: Care Team Goals & Evaluation PROBLEM-RELATED GOALS: 1. Ed will remain free from all falls and injuries through 07/04/18 2. Ed's skin will remain intact and any impairments will show signs of healing by 06/25/18 3. Ed will ambulated with FWW and physical therapy by 06/29/18 4. Ed will have no deterioration in his neuro assessment through 07/04/18 5. Ed will be continent of bowel and bladder and will not have any accidents through 6. Ed will have no s/sx of aspiration through 07/04/18 7. Pt will be Mod I in transfers and amb using bariatric FWW by 07/14/18. 8. Pt will tolerate dysphagia advanced foods and nectar thick liquids with no overt s/sx of airway compromise by 07/04/2018 STRATEGY TO ACHIEVE GOALS: - Perform purposeful rounding, ensure call light is within reach and provide supervision fo r all OOB activity - Assist patient with repositioning in bed, perform incontinence care if needed and monitor for signs of skin breakdown - Encourage active participation in PT/OT - Perform neuro assessment Qshift and notify MD of any decline - Assist with toileting, encourage fluid intake for bowel and bladder function - Provide altered textures and thickened fluids and ensure patient is sitting upright for a ll oral intake - Full participation in PT session in functional mobility training. - Full participation in ST sessions Outcome: Unchanged Goal Evaluation: Edward oxygen saturation is SpO2: 96 % on 2liters/minute CPAP, home unit and a heart rate of 54. Breath sounds are diminished, equal bilaterally . Pt has no cough . Pt's respirations are no shortness of breath reported, pattern regular, depth regular, unl abored with expansion symmetric, no use of accessory muscles. lan of Care - Yasmine Montanez OT - 06/28/2018 3:45 PM PDTFormatting of this note might be different from t nany original. Problem: Patient Care Overview (Adult) Goal: Care Team Goals & Evaluation PROBLEM-RELATED GOALS: 1. Ed will remain free from all falls and injuries through 07/04/18 2. Ed's skin will remain intact and any impairments will show signs of healing by 06/25/18 3. Ed will ambulated with FWW and physical therapy by 06/29/18 4. Ed will have no deterioration in his neuro assessment through 07/04/18 5. Ed will be continent of bowel and bladder and will not have any accidents through 6. Ed will have no s/sx of aspiration through 07/04/18 7. Pt will be Mod I in transfers and amb using bariatric FWW by 07/14/18. 8. Pt will tolerate dysphagia advanced foods and nectar thick liquids with no overt s/sx of airway compromise by 07/04/2018 STRATEGY TO ACHIEVE GOALS: - Perform purposeful rounding, ensure call light is within reach and provide supervision fo r all OOB activity - Assist patient with repositioning in bed, perform incontinence care if needed and monitor for signs of skin breakdown - Encourage active participation in PT/OT - Perform neuro assessment Qshift and notify MD of any decline - Assist with toileting, encourage fluid intake for bowel and bladder function - Provide altered textures and thickened fluids and ensure patient is sitting upright for a ll oral intake - Full participation in PT session in functional mobility training. - Full participation in ST sessions Outcome: Improving IRF Occupational Therapy Plan of Care Treatment Note Summary: Sarthak has been participating in occupational therapy for treatment of decrease d ADL performance, fxl mobility, activity tolerance, safety awareness s/p ischemic CGA, L si ded weakness. Emphasis of session included strengthening and dexterity tasks of BUEs identi fied by the pt as an activity he wishes to improve. Patient demonstrates progress towards f unctional goals as evidenced by demonstrating actively engagement in activities. Pt successf ul in activities by not dropping any of the items used during session ( pt identifies that blake eng often drops items while in his room such as his phone or water cup). Remaining barriers t o discharge and functional limitations include decreased functional activity tolerance, decr eased bed mobility, decreased functional transfers, decreased ability to perform ADLs, decre ased ability to perform IADLs and not yet able to mobilize at level safe for home discharge. Sarthak will benefit from continued therapeutic intervention to address ongoing impairments and increase safety and independence with activities necessary for safe discharge. Refer be low for specific details regarding functional levels. Occupational Therapy Discharge Recommendations are: Recommended discharge disposition: home with assist, long-term facility Post discharge occupational therapy recommendation: will benefit from structured setting, home health Equipment Recommendations: bariatric, commode (3 in 1), long handled sponge, grain oilseed or pasture farm worker, sock aide Planned Interventions:ADL retraining, balance training, bed mobility training, motor coordi nation training, neuromuscular re-education, fine motor coordination training, ROM (Range of Motion), strengthening, transfer training Recommended Frequency: other (see comments) (rehab schedule) Patient Status/Goals: Reflects last filed data and may be from multiple contributors. Therapeutic Exercise pt requesting to work on BUE strengthening, of hand and digits that was more funcitonal .pt identified that it is difficult to grasp a cup with his R hand and that it is hard to stati bob hold his phone with this L hand. pt engaged in holding weighted 2lb cup. pt challenged to statically hold cup 30seconds x 5 sets. pt then challenged to bring weighted cup up to m outh. next challenged pt to use 1lb weight to static hold with L hand for 30 seconds x 5 set s. pt then performed. Shoulder exercises: bilateral Repetitions/ Resistance: 10x's 2 sets utilizing 3lb weights in all planes of motion L hand. Elbow exercises: bilateral Repetitions/ Resistance: 10x's 2 sets utilizing 3lb weights flex/ext of L hand. Hand exercises: finger flexion, finger extension Type of exercise: active assistive Repetitions/ Resistance: gentle with wrist stabilization applied. OT Goal Review Date Most Recent Value STG Review Date 06/30/18 at 06/23/2018 0945 LTG Review Date 07/07/18 at 06/23/2018 0945 Grooming Goal Most Recent Value STG Status met at 06/24/2018 0850 STG [place] Level minimum assist (75% patient effort) at 06/23/2018 0945 STG Position sitting in chair at 06/23/2018 0945 STG Adaptive Equipment none at 06/23/2018 0945 LTG Status progressing at 06/26/2018 1050 LTG [place] Level supervised at 06/25/2018 1101 LTG Position sitting in chair at 06/23/2018 0945 LTG Adaptive Equipment none at 06/23/2018 0945 Bathing Goal Most Recent Value STG Status continued at 06/28/2018 0932 STG [place] Level minimum assist (75% patient effort), set up required, verbal cues r equired at 06/23/2018 0945 STG Adaptive Equpiment grab bars, shower head, detachable, sponge, long handled, tub bench with back at 06/23/2018 0945 STG Position sitting at 06/23/2018 0945 LTG Status progressing at 06/26/2018 1050 LTG [place] Level contact guard assist at 06/23/2018 0945 LTG Adaptive Equpiment grab bars, shower head, detachable, sponge, long handled, tub bench with back at 06/23/2018 0945 LTG Position sitting at 06/23/2018 0945 UB Dressing Goal Most Recent Value STG Status continued at 06/28/2018 0932 STG [place] Level stand by assist, set up required at 06/23/2018 0945 STG Adaptive Equipment none at 06/23/2018 0945 LTG Status continued at 06/26/2018 1050 LTG [place] Level supervised, set up required at 06/23/2018 0945 LTG Adaptive Equipment none at 06/23/2018 0945 LB Dressing Goal Most Recent Value STG Status progressing at 06/24/2018 0850 STG [place] Level moderate assist (50% patient effort), set up required at 06/23/2018 0945 STG Adaptive Equipment grain oilseed or pasture farm worker, shoe horn, long handled, sock-aid at 06/23/2018 0945 LTG Status progressing at 06/24/2018 0850 LTG [place] Level contact guard assist, set up required at 06/23/2018 0945 LTG Adaptive Equipment grain oilseed or pasture farm worker, shoe horn, long handled, sock-aid at 06/23/2018 0945 Toileting Goal Most Recent Value STG Status continued at 06/28/2018 0932 STG [place] Level minimum assist (75% patient effort), set up required, verbal cues r equired at 06/23/2018 0945 STG Assistive Device bariatric bedside commode, grab bar at 06/23/2018 0945 LTG Status progressing at 06/25/2018 1101 LTG [place] Level contact guard assist at 06/23/2018 0945 LTG Assistive Device bariatric bedside commode, grab bar at 06/23/2018 0945 Toilet Transfer Goal Most Recent Value STG Status progressing at 06/25/2018 1101 STG [place] Level contact guard assist at 06/23/2018 0945 STG Assistive Device bariatric, commode (3 in 1), grab bars at 06/23/2018 0945 LTG Status progressing at 06/25/2018 1101 LTG [place] Level stand by assist at 06/23/2018 0945 LTG Assistive Device bariatric, commode (3 in 1), grab bars at 06/23/2018 0945 Tub/Shower Transfer Goal Most Recent Value Tub/Shower Type tub/shower combo at 06/23/2018 0945 STG Status progressing at 06/27/2018 0930 STG [place] Level contact guard assist, set up required, verbal cues required at 12/2017 0945 STG Assistive Device bariatric, tub bench, grab bars at 06/23/2018 0945 LTG Status progressing at 06/25/2018 1101 LTG [place] Level stand by assist at 06/23/2018 0945 LTG Assistive Device bariatric, tub bench, grab bars at 06/23/2018 0945 Additional Goals #1 OT Most Recent Value STG Status progressing at 06/28/2018 0932 STG Pt will increase automatic L hand during fxl and ADL tasks by requiring Mod vc's at 1515 LTG Status new at 06/24/2018 1515 LTG Pt will increase automatic L hand during fxl and ADL tasks by requiring Min vc's at 1515 Additional Goals #2 OT Most Recent Value LTG Status progressing at 06/28/2018 0932 LTG pt will tolerate lymphedema and wound care management techniques to promote skin integ rity, reduce swelling, and promote overall participation in ADLs. at 06/26/2018 1050 Electronically signed by: Yasmine Alvarez OT, 06/28/2018 16:36 lan of Care - Barb Schrader RN - 06/28/2018 3:43 PM PDTProblem: Patient Care Overview (Adult) Goal: Care Team Goals & Evaluation PROBLEM-RELATED GOALS: 1. Ed will remain free from all falls and injuries through 07/04/18 2. Ed's skin will remain intact and any impairments will show signs of healing by 06/25/18 3. Ed will ambulated with FWW and physical therapy by 06/29/18 4. Ed will have no deterioration in his neuro assessment through 07/04/18 5. Ed will be continent of bowel and bladder and will not have any accidents through 6. Ed will have no s/sx of aspiration through 07/04/18 7. Pt will be Mod I in transfers and amb using bariatric FWW by 07/14/18. 8. Pt will tolerate dysphagia advanced foods and nectar thick liquids with no overt s/sx of airway compromise by 07/04/2018 STRATEGY TO ACHIEVE GOALS: - Perform purposeful rounding, ensure call light is within reach and provide supervision fo r all OOB activity - Assist patient with repositioning in bed, perform incontinence care if needed and monitor for signs of skin breakdown - Encourage active participation in PT/OT - Perform neuro assessment Qshift and notify MD of any decline - Assist with toileting, encourage fluid intake for bowel and bladder function - Provide altered textures and thickened fluids and ensure patient is sitting upright for a ll oral intake - Full participation in PT session in functional mobility training. - Full participation in ST sessions Outcome: Unchanged Goal Evaluation: Pt alert and oriented. Slurred speech, Lt facial droop. Lt tongue deviation. 2 Person assi sst w/ platform walker. Refusing nectar thick liquid. Dyspagia advanced diet, red tray. 2+ edema to lt hand and 1+ edema to b/l legs. Lympedema wraps to B/L legs. RT leg ulcer healing , dressing changed daily. LBM today. Silva draining clear chayito urine. Bipap when sleeping. MS 3/5 to LUE, 4/5 to LLE and 5/5 to RT sided extremities. Lt arm ataxic, unable to do finge r to nose. Rash under pannis and to Rt arm, pt scratching. Dr. Gonzalez. lan of Care - Angelica Ly, PT - 06/28/2018 2:35 PM PDTFormatting of this note might be different from the o riginal. Problem: Patient Care Overview (Adult) Goal: Care Team Goals & Evaluation PROBLEM-RELATED GOALS: 1. Ed will remain free from all falls and injuries through 07/04/18 2. Ed's skin will remain intact and any impairments will show signs of healing by 06/25/18 3. Ed will ambulated with FWW and physical therapy by 06/29/18 4. Ed will have no deterioration in his neuro assessment through 07/04/18 5. Ed will be continent of bowel and bladder and will not have any accidents through 6. Ed will have no s/sx of aspiration through 07/04/18 7. Pt will be Mod I in transfers and amb using bariatric FWW by 07/14/18. 8. Pt will tolerate dysphagia advanced foods and nectar thick liquids with no overt s/sx of airway compromise by 07/04/2018 STRATEGY TO ACHIEVE GOALS: - Perform purposeful rounding, ensure call light is within reach and provide supervision fo r all OOB activity - Assist patient with repositioning in bed, perform incontinence care if needed and monitor for signs of skin breakdown - Encourage active participation in PT/OT - Perform neuro assessment Qshift and notify MD of any decline - Assist with toileting, encourage fluid intake for bowel and bladder function - Provide altered textures and thickened fluids and ensure patient is sitting upright for a ll oral intake - Full participation in PT session in functional mobility training. - Full participation in ST sessions Outcome: Improving IRF Physical Therapy Plan of Care Treatment Note Summary: Sarthak has been participating in physical therapy for treatment of Impaired bal ance, gait instability, (L) sided neglect, (L) zena paresis who was admitted d/t CVA. 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 Hx of previous C VA affecting (R) side.. Emphasis of session included gait, transfers training and Neuro re -education. Pt participated better this afternoon session. Patient demonstrates progress to wards functional goals as evidenced by pt was able to ambulate farther but with 2 person A f or safety d/t impaired balance, (L) sided neglect and weakness.. Remaining barriers to disc harge and functional limitations include decreased insight into safety and deficits, decreas ed functional activity tolerance, decreased bed mobility, decreased functional transfers, de creased functional gait distance, decreased gait velocity, demonstrating need for 24/7 super vision, unsafe discharge disposition, not yet able to mobilize at level safe for home discha e, [facility] indicating significant impairment with basic functional mobility and medical stat us. Sarthak will benefit from continued therapeutic intervention to address ongoing impairments and increase safety and independence with activities necessary for safe discharge. Refer be low for specific details regarding functional levels. Physical Therapy Discharge Recommendations are: Recommended discharge disposition: home with assist Post discharge physical therapy recommendation: home health Equipment Recommendations: bariatric, 2 wheeled walker (FWW) Planned Interventions: balance training, bed mobility training, gait training, home exerci se program, lumbar stabilization, manual therapy techniques, motor coordination training, st air training, strengthening, ROM (Range of Motion), postural re-education, patient/family ed ucation, neuromuscular re-education, transfer training, wheelchair management/propulsion tra ining Frequency: daily (1-2x/day) Patient Status/Goals: Reflects last filed data and may be from multiple contributors. Transfers verbal cues for hand placement. encouraged to place (L) FA on the platform to reduce wt.be aring on the wrist. Bed-Chair, Level of Hammond: verbal cues required, minimal assist (75% patient effort) , 1 person + 1 person to manage equipment Chair-Bed, Level of [place]: verbal cues required, minimal assist (75% patient effort) , 1 person + 1 person to manage equipment [id number], Assistive Device: wheelchair, 2 wheeled walker (FWW), platform attachment Sit-Stand, Level of [place]: verbal cues required, 2 person assist required, minimal a ssist (75% patient effort) Stand-Sit, Level of Hammond: minimal assist (75% patient effort), 1 person + 1 person to manage equipment, set up required, verbal cues required, tactile cues required All-Tzhas-Ctj, Assistive Device: 2 wheeled walker (FWW), platform attachment Safety Issues: balance decreased during turns, sequencing ability decreased, step length de creased, weight-shifting ability decreased, loses balance backward Impairments: muscle tone abnormal, ROM decreased, sensation decreased, strength decreased, impaired balance, coordination impaired, motor control impaired, postural control impaired, sensory feedback impaired, pain Gait verbal cues for correct management of FWW with patform attachment especially when turning t o prevent it from tipping. Verbal cues for inc. step length to normalize gait. Level of Hammond: contact guard assist, 2 person assist required, verbal cues required Assistive Device: 2 wheeled walker (FWW), platform attachment Distance (feet): 57' Gait Pattern Analysis: 2-point gait (Wide gait) Gait Deviations: alize decreased, double stance time increased, limb motion velocity decr eased, [id number] clearance decreased, step length decreased, weight-shifting ability decr eased, obfqp-pc-[id number] ratio decreased Safety Issues: balance decreased during turns, sequencing ability decreased, step length de creased, weight-shifting ability decreased Impairments: pain, strength decreased, impaired balance, coordination impaired, motor contr ol impaired, ROM decreased, sensation decreased, decreased flexibility, postural control imp aired Therapeutic Exercise Neuromuscular Reeducation: coordination ex on (L) UE, finger to nose, grasp and release usi ng cone, multi directional reaching in standing. PT Goal Review Date Most Recent Value STG Review Date 06/30/18 at 06/23/2018 0915 LTG Review Date 07/14/18 at 06/23/2018 0915 [id number]-[id number] Goal Most Recent Value STG Status continued at 06/28/2018 1147 STG [place] Level supervised at 06/23/2018 0915 STG Assistive Device bed rails, overhead trapeze at 06/23/2018 0915 LTG Status new at 06/23/2018 0915 LTG [place] Level modified independent at 06/23/2018 0915 LTG Assistive Device bed rails, overhead trapeze at 06/23/2018 0915 Dis-[id number]-[id number] Goal Most Recent Value STG Status progressing at 06/28/2018 1435 STG [place] Level contact guard assist at 06/23/2018 0915 STG Assistive Device 2 wheeled walker (FWW), bariatric at 06/23/2018 0915 LTG Status continued at 06/26/2018 1749 LTG [place] Level modified independent at 06/23/2018 0915 LTG Assistive Device 2 wheeled walker (FWW), bariatric, 4 wheeled walker (4WW) at 06/23/20 18 0915 Gait Goal Most Recent Value STG Status progressing at 06/28/2018 1435 STG [place] Level contact guard assist at 06/23/2018 0915 STG Assistive Device bariatric, 2 wheeled walker (FWW) at 06/23/2018 0915 STG Comments 50' at 06/23/2018 0915 LTG Status new at 06/23/2018 0915 LTG [place] Level modified independent at 06/23/2018 0915 LTG Assistive Device 2 wheeled walker (FWW), bariatric, 4 wheeled walker (4WW) at 06/23/20 18 0915 LTG Distance (feet) 50' x 3 at 06/23/2018 0915 LTG Comments ramps at 06/23/2018 0915 Wheelchair Goal Most Recent Value STG Status continued at 06/27/2018 1157 STG Pt will propel a manual wheelchair 50 feet with Min A to improve his independence at 1 1206 LTG Status new at 06/26/2018 1206 LTG Pt will propel a manual wheelchair 100 feet with Sup to improve his independence at 1206 Electronically signed by: ANGELICA LY PT, 06/28/2018 17:35 lan of Care - Leila Gibbs, Speech Pathologist - 06/28/2018 1:40 PM PDT Problem: Patient Care Overview (Adult) Goal: Care Team Goals & Evaluation PROBLEM-RELATED GOALS: 1. Ed will remain free from all falls and injuries through 07/04/18 2. Ed's skin will remain intact and any impairments will show signs of healing by 06/25/18 3. Ed will ambulated with FWW and physical therapy by 06/29/18 4. Ed will have no deterioration in his neuro assessment through 07/04/18 5. Ed will be continent of bowel and bladder and will not have any accidents through 6. Ed will have no s/sx of aspiration through 07/04/18 7. Pt will be Mod I in transfers and amb using bariatric FWW by 07/14/18. 8. Pt will tolerate dysphagia advanced foods and nectar thick liquids with no overt s/sx of airway compromise by 07/04/2018 STRATEGY TO ACHIEVE GOALS: - Perform purposeful rounding, ensure call light is within reach and provide supervision fo r all OOB activity - Assist patient with repositioning in bed, perform incontinence care if needed and monitor for signs of skin breakdown - Encourage active participation in PT/OT - Perform neuro assessment Qshift and notify MD of any decline - Assist with toileting, encourage fluid intake for bowel and bladder function - Provide altered textures and thickened fluids and ensure patient is sitting upright for a ll oral intake - Full participation in PT session in functional mobility training. - Full participation in ST sessions IRF Speech Therapy Plan of Care Treatment Note Summary: Pt seen upright in chair for session to target assessment of cog/comm. Pt alert and participated. Discussion ensued on history of CVAs and impairments following. Pt admits to changes in speech (dysarthria) and swallow ability (acute dysphagia) at this time that ar e new since this R insula CVA. Pt reports he has difficulty talking on the phone now and has difficulty with solids/liquids at this time however he refuses NTL at this time- however is agreeable to MBS after INTERACTIVE MEDIA MARKETING STRATEGIST explanation. See below for notes on cog/comm scores. Pt reports no changes in thinking at this time. INTERACTIVE MEDIA MARKETING STRATEGIST discussed dysphagia and importance of exercises but necessity of completing MBS to determine exact cause and severity of dysphagia. MD agreed a nd order placed. MBS scheduled 9am 06/29/18. INTERACTIVE MEDIA MARKETING STRATEGIST reviewed POC with INTERACTIVE MEDIA MARKETING STRATEGIST services for oral mot or exercises d/t left facial droop, dysarthria reduction, and dysphagia treatment- pt is agr eeable to POC. Speech Language Pathology Discharge Recommendations are: Recommended discharge disposition: (TBD) Post discharge speech language pathology recommendation: continue INTERACTIVE MEDIA MARKETING STRATEGIST tx for dysphagia Planned Interventions: compensatory strategies, patient/caregiver education, swallow exerc ises, oral motor exercise, diet texture modification Recommended Frequency: 4 times/wk Swallow Recommendations Recommended Solid Texture: dysphagia advanced Recommended Liquid Texture: nectar thick liquids, water protocol (Water protocol between me als only)- Pt refusing/not following Recommended Medication Delivery: whole pills with thickened liquids, whole pills with puree , crushed pills with puree, if able Recommended Feeding/Eating Techniques: alternate between small bites and sips of food/liqui d, oral care before and after each meal, maintain upright posture during/after eating for 30 mins, one small sip or bite at a time, slow rate, tuck chin during every swallow Swallow Cough in 50% of swallows with thin liquids by cup observed Cognitive Cognistat- Neurobehavioral Cognitive Status Examination Date: 06/28/2018 Subtest Severity Notes/Description Orientation WNL 10/ Attention Mild Moderate 4/8 Speech Sample Mild impairment Slurring noted but intelligible Comprehension Passed screener Able to follow a 3 step command Repetition WNL 11/12 Naming WNL 8/8 Constructional Ability Moderate impairment 2/6 Memory WNL 11/12 Calculations Passed screener Reasoning Passed screener Judgment WNL 4/6 Cognition Goal Most Recent Value STG Status continued at 06/28/2018 1343 STG Pt will participate in full cognitive/com assessment to determine cause severity and update POC. at 06/28/2018 1343 Dysphagia Goal Most Recent Value STG Status continued at 06/28/2018 1343 STG Pt will tolerate level 2 mechanical soft chopped foods and nectar thick liquids with n o s/s of airway compromise at 06/28/2018 1343 Solid Texture Goal Most Recent Value STG Status continued at 06/28/2018 1343 STG Pt will tolerate dysphagia advanced foods with no overt s/sx of airway compromise at 06/28/2018 1343 LTG Status continued at 06/28/2018 1343 LTG Pt will tolerate dental soft foods cut up with no overt s/sx of airway compromise at 1 1343 Liquid Texture Goal Most Recent Value STG Status new at 06/23/2018 1534 STG Pt will tolerate nectar thick liquids by cup/straw with no s/sx of airway compromise a t 06/23/2018 1534 LTG Status new at 06/23/2018 1534 LTG Pt will tolerate thin liquids by cup with no overt s/sx of airway compromise at 2017 1534 Additional Goals #1 INTERACTIVE MEDIA MARKETING STRATEGIST Most Recent Value STG Status continued at 06/28/2018 1343 STG Pt will complete oral motor exercises for improved facial droop with 75% accuracy and min cues. at 06/28/2018 1343 LTG Status new, met at 06/28/2018 1343 LTG Pt will complete cog/ comm assessment to determine strengths/ weaknesses prior to DC. at 06/28/2018 1343 Electronically signed by: Leila Romero, Speech Pathologist, 06/28/2018 13:46 G oal Evaluation: TPlan of Care - Abraham Carvalho, PT - 06/28/2018 11:47 AM PDTFormatting of this note migh t be different from the original. Problem: Patient Care Overview (Adult) Goal: Care Team Goals & Evaluation PROBLEM-RELATED GOALS: 1. Ed will remain free from all falls and injuries through 07/04/18 2. Ed's skin will remain intact and any impairments will show signs of healing by 06/25/18 3. Ed will ambulated with FWW and physical therapy by 06/29/18 4. Ed will have no deterioration in his neuro assessment through 07/04/18 5. Ed will be continent of bowel and bladder and will not have any accidents through 6. Ed will have no s/sx of aspiration through 07/04/18 7. Pt will be Mod I in transfers and amb using bariatric FWW by 07/14/18. 8. Pt will tolerate dysphagia advanced foods and nectar thick liquids with no overt s/sx of airway compromise by 07/04/2018 STRATEGY TO ACHIEVE GOALS: - Perform purposeful rounding, ensure call light is within reach and provide supervision fo r all OOB activity - Assist patient with repositioning in bed, perform incontinence care if needed and monitor for signs of skin breakdown - Encourage active participation in PT/OT - Perform neuro assessment Qshift and notify MD of any decline - Assist with toileting, encourage fluid intake for bowel and bladder function - Provide altered textures and thickened fluids and ensure patient is sitting upright for a ll oral intake - Full participation in PT session in functional mobility training. - Full participation in ST sessions Outcome: Unchanged IRF Physical Therapy Plan of Care Treatment Note Summary: Sarthak has been participating in physical therapy for treatment of Impaired bal ance, gait instability, (L) sided neglect, (L) zena paresis who was admitted d/t CVA. 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 Hx of previous C VA affecting (R) side.. Emphasis of session included progress bed mobility and transfer tr aining, reinitiate pre-gait and progress to gait training in parallel bars with a four-wheel walker, lower extremity coordination and strengthening. Patient demonstrates progress towa rds functional goals as evidenced by patient able to take steps with a platform walker with minimum assist +1 person for safety. Remaining barriers to discharge and functional limitat ions include decreased insight into safety and deficits, decreased functional activity mak ance, decreased bed mobility, decreased functional transfers, decreased functional gait dist ance, decreased gait velocity, stairs at home, not able to navigate stairs, unsafe discharge disposition and not yet able to mobilize at level safe for home discharge. Sarthak will benefit from continued therapeutic intervention to address ongoing impairments and increase safety and independence with activities necessary for safe discharge. Refer be low for specific details regarding functional levels. Physical Therapy Discharge Recommendations are: Recommended discharge disposition: home with assist Post discharge physical therapy recommendation: home health Equipment Recommendations: bariatric, 2 wheeled walker (FWW) Planned Interventions: balance training, bed mobility training, gait training, home exerci se program, lumbar stabilization, manual therapy techniques, motor coordination training, st air training, strengthening, ROM (Range of Motion), postural re-education, patient/family ed ucation, neuromuscular re-education, transfer training, wheelchair management/propulsion tra ining Frequency: daily (1-2x/day) Patient Status/Goals: Reflects last filed data and may be from multiple contributors. Bed Mobility HOB elevated, VC to not hold breath and slow down Assistive Device: bed rails, HOB elevated, overhead trapeze Roll Left, Level of Hammond: not tested Roll Right, Level of Hammond: not tested Scoot/Bridge, Level of Hammond: set up required, verbal cues required, tactile cues re quired, moderate assist (50% patient effort) Supine to Sit, Level of Hammond: set up required, verbal cues required, tactile cues r equired, 1 person + 1 person to manage equipment, moderate assist (50% patient effort) Sit to Supine, Level of Hammond: moderate assist (50% patient effort), 1 person + 1 pe rson to manage equipment, set up required, verbal cues required, tactile cues required Safety Issues: decreased use of arms for pushing/pulling, decreased use of legs for bridgin g/pushing, impaired trunk control for bed mobility Impairments: muscle tone abnormal, decreased flexibility, strength decreased, impaired demi nce, coordination impaired, motor control impaired, postural control impaired, sensory feedb ack impaired, pain Transfers Extra time and effort. Several reps of sit<>import/export administrator bars with empahsis on control and leg strength x 20 min. Pt began to fatigue and form suffered and therefore required longer seated rest breaks. Bed-Chair, Level of Hammond: minimal assist (75% patient effort), 1 person + 1 person to manage equipment, set up required, verbal cues required, tactile cues required Chair-Bed, Level of Hammond: minimal assist (75% patient effort), 1 person + 1 person to manage equipment, set up required, verbal cues required, tactile cues required Rms-Czmka-Uwd, Assistive Device: wheelchair Sit-Stand, Level of Hammond: minimal assist (75% patient effort), 1 person + 1 person to manage equipment, set up required, verbal cues required, tactile cues required Stand-Sit, Level of Hammond: minimal assist (75% patient effort), 1 person + 1 person to manage equipment, set up required, verbal cues required, tactile cues required Syz-[id number]-Ger, Assistive Device: 2 wheeled walker (FWW), platform attachment Safety Issues: balance decreased during turns, sequencing ability decreased, step length de creased, weight-shifting ability decreased, loses balance backward Impairments: muscle tone abnormal, ROM decreased, sensation decreased, strength decreased, impaired balance, coordination impaired, motor control impaired, postural control impaired, sensory feedback impaired, pain Gait Gait training in parallel bars with 2WW and platform attachment. Pt fatigue and loses form . Still impulsive and unsafe with standing activties due to leg weakness and impaired motor control. Pt with poor safety awareness Level of Hammond: moderate assist (50% patient effort), 1 person + 1 person to manage equipment, set up required, verbal cues required, tactile cues required Assistive Device: 2 wheeled walker (FWW), platform attachment Distance (feet): 5 feet x 5 Gait Pattern Analysis: 2-point gait (Wide gait) Gait Deviations: alize decreased, double stance time increased, limb motion velocity decr eased, [id number]-[id number] clearance decreased, step length decreased, weight-shifting ability decr eased, umxzv-[id number] ratio decreased Safety Issues: balance decreased during turns, sequencing ability decreased, step length de creased, weight-shifting ability decreased Impairments: pain, strength decreased, impaired balance, coordination impaired, motor contr ol impaired, ROM decreased, sensation decreased, decreased flexibility, postural control imp aired Stairs Level of Hammond: not tested, not appropriate to assess, unable to perform Therapeutic Exercise Balance exercises: walk forward, walk backwards Repetitions: several for x 20 min Functional Endurance poor, patient easily fatigued and with c/o pain ROM L LE ROM: Grossly WFL for body habitus type R LE ROM: Grossly WFL for body habitus type Strength L LE Strength: hip flexion 2+/5, knee ext 3+/5, DF 3+/5 R LE Strength: grossly graded 4-/5 PT Goal Review Date Most Recent Value STG Review Date 06/30/18 at 06/23/201815 LTG Review Date 07/14/18 at 06/23/2018 0915 [id number] Goal Most Recent Value STG Status continued at 06/28/2018 1147 STG Hammond Level supervised at 06/23/201815 STG Assistive Device bed rails, overhead trapeze at 06/23/2018 0915 LTG Status new at 06/23/2018 0915 LTG [place] Level modified independent at 06/23/2018 0915 LTG Assistive Device bed rails, overhead trapeze at 06/23/2018 0915 [id number]-Nap Goal Most Recent Value STG Status continued at 06/28/2018 1147 STG [place] Level contact guard assist at 06/23/2018 0915 STG Assistive Device 2 wheeled walker (FWW), bariatric at 06/23/2018 0915 LTG Status continued at 06/26/2018 1749 LTG [place] Level modified independent at 06/23/2018 0915 LTG Assistive Device 2 wheeled walker (FWW), bariatric, 4 wheeled walker (4WW) at 06/23/20 18 0915 Gait Goal Most Recent Value STG Status continued at 06/28/2018 1147 STG Hammond Level contact guard assist at 06/23/2018 0915 STG Assistive Device bariatric, 2 wheeled walker (FWW) at 06/23/2018 0915 STG Comments 50' at 06/23/2018 0915 LTG Status new at 06/23/2018 0915 LTG [place] Level modified independent at 06/23/2018 0915 LTG Assistive Device 2 wheeled walker (FWW), bariatric, 4 wheeled walker (4WW) at 06/23/20 18 0915 LTG Distance (feet) 50' x 3 at 06/23/2018 0915 LTG Comments ramps at 06/23/2018 0915 Wheelchair Goal Most Recent Value STG Status continued at 06/27/2018 1157 STG Pt will propel a manual wheelchair 50 feet with Min A to improve his independence at 1 1206 LTG Status new at 06/26/2018 1206 LTG Pt will propel a manual wheelchair 100 feet with Sup to improve his independence at 1206 Electronically signed by: Abraham Carvalho PT, 06/28/2018 12:46 lan of Care - Choco Kaiser, OT - 06/28/2018 10:32 AM PDTFormatting of this note might be different from luz maria eng original. Problem: Patient Care Overview (Adult) Goal: Care Team Goals & Evaluation PROBLEM-RELATED GOALS: 1. Ed will remain free from all falls and injuries through 07/04/18 2. Ed's skin will remain intact and any impairments will show signs of healing by 06/25/18 3. Ed will ambulated with FWW and physical therapy by 06/29/18 4. Ed will have no deterioration in his neuro assessment through 07/04/18 5. Ed will be continent of bowel and bladder and will not have any accidents through 6. Ed will have no s/sx of aspiration through 07/04/18 7. Pt will be Mod I in transfers and amb using bariatric FWW by 07/14/18. 8. Pt will tolerate dysphagia advanced foods and nectar thick liquids with no overt s/sx of airway compromise by 07/04/2018 STRATEGY TO ACHIEVE GOALS: - Perform purposeful rounding, ensure call light is within reach and provide supervision fo r all OOB activity - Assist patient with repositioning in bed, perform incontinence care if needed and monitor for signs of skin breakdown - Encourage active participation in PT/OT - Perform neuro assessment Qshift and notify MD of any decline - Assist with toileting, encourage fluid intake for bowel and bladder function - Provide altered textures and thickened fluids and ensure patient is sitting upright for a ll oral intake - Full participation in PT session in functional mobility training. - Full participation in ST sessions Outcome: Unchanged IRF Occupational Therapy Plan of Care Treatment Note Summary: Sarthak has been participating in occupational therapy for treatment of decrease d ADL performance, fxl mobility, activity tolerance, safety awareness s/p ischemic CGA, L si ded weakness. Emphasis of session included sponge bathing, bed mobility, and lymphedema/wou nd care management. Patient demonstrates progress towards functional goals as evidenced by tolerating lymphedema/wound care management. Rewrapped RLE with Coban 2 system, aquacell and ABD placed on wounds, calazine lotion on fungal spots on lower RLE, and moisturizing lotion on RLE avoiding wounds. Pt overall, frustrated this tx session and refused OOB ADLs, requir ing extensive assistance for sponge bathing tasks in supine. Remaining barriers to dischar ge and functional limitations include decreased insight into safety and deficits, decreased functional activity tolerance, decreased bed mobility, decreased functional transfers, decre ased ability to perform ADLs, decreased ability to perform IADLs, decreased ability to perfo rm medication management, demonstrating need for 24/7 supervision, not yet able to mobilize at level safe for home discharge and medical status. Sarthak will benefit from continued therapeutic intervention to address ongoing impairments and increase safety and independence with activities necessary for safe discharge. Refer be low for specific details regarding functional levels. Occupational Therapy Discharge Recommendations are: Recommended discharge disposition: home with assist, long-term facility Post discharge occupational therapy recommendation: will benefit from structured setting, home health Equipment Recommendations: bariatric, commode (3 in 1), long handled sponge, grain oilseed or pasture farm worker, sock aide Planned Interventions:ADL retraining, balance training, bed mobility training, motor coordi nation training, neuromuscular re-education, fine motor coordination training, ROM (Range of Motion), strengthening, transfer training Recommended Frequency: other (see comments) (rehab schedule) Patient Status/Goals: Reflects last filed data and may be from multiple contributors. ADLs Pt refused sponge bath in w/c at sink or EOB, sponge bath completed in supine. RLE re-wrapp ed and changed wound dressing. Sponge bath this AM. Pt refused to complete sponge bath OOB. Pt able to wash chest and BUE, extra time and effort to wash under LUE. Pt required assist with abdomen, perineal areas, a nd BLE. Pt requesting extensive assistance as pt was in supine and unwilling to complete sp onge bath seated at EOB. Pt reports that caregivers complete all bathing tasks at home. Bathing, Level of Hammond: set up required, verbal cues required, maximal assist (25% patient effort) Assistive Device: none (sponge bath) Bathing Assess/Train, Position: sitting (supine) Bathing Assess/Train, Impairments: muscle tone abnormal, decreased flexibility, ROM decreas ed, sensation decreased, strength decreased, impaired balance, coordination impaired, motor control impaired, postural control impaired, sensory feedback impaired (body habitus) Placed gown on pt, pt in supine. Pt declined to wear LB clothing Pt had bowel movement supine in bed upon arrival, pt is dependent with pericare. 1P assist with pericare, 1P to assist with sidelying. Functional Endurance Poor, pt unwilling to participate in OOB ADLs, required increased assist, fatigued and frus trated Cognitive Pt not agitated this tx session, and cooperative Mood/Behavior: cooperative, withdrawn Orientation: oriented x 4 Speech: slurred Bed Mobility Pt required vc's for safety, body positioning, and sequencing throughout. Assistive Device: bed rails, HOB elevated, overhead trapeze Roll Left, Level of Hammond: stand by assist, verbal cues required Roll Right, Level of Hammond: stand by assist, verbal cues required Scoot/Bridge, Level of Hammond: set up required, verbal cues required, tactile cues re quired, moderate assist (50% patient effort) Supine to Sit, Level of Hammond: set up required, verbal cues required, tactile cues r equired, 1 person + 1 person to manage equipment, minimal assist (75% patient effort) Sit to Supine, Level of Hammond: 1 person + 1 person to manage equipment, set up requi red, verbal cues required, tactile cues required, minimal assist (75% patient effort) Safety Issues: decreased use of arms for pushing/pulling, decreased use of legs for bridgin g/pushing, impaired trunk control for bed mobility Impairments: muscle tone abnormal, decreased flexibility, strength decreased, impaired demi nce, coordination impaired, motor control impaired, postural control impaired, sensory feedb ack impaired, pain Transfers NT, pt declining OOB activities after max encouragement, requested sponge bath in bed OT Goal Review Date Most Recent Value STG Review Date 06/30/18 at 06/23/2018 0945 LTG Review Date 07/07/18 at 06/23/2018 0945 Grooming Goal Most Recent Value STG Status met at 06/24/2018 0850 STG Hammond Level minimum assist (75% patient effort) at 06/23/2018 0945 STG Position sitting in chair at 06/23/2018 0945 STG Adaptive Equipment none at 06/23/2018 0945 LTG Status progressing at 06/26/2018 1050 LTG Hammond Level supervised at 06/25/2018 1101 LTG Position sitting in chair at 06/23/2018 0945 LTG Adaptive Equipment none at 06/23/2018 0945 Bathing Goal Most Recent Value STG Status continued at 06/28/2018 0932 STG Hammond Level minimum assist (75% patient effort), set up required, verbal cues r equired at 06/23/2018 0945 STG Adaptive Equpiment grab bars, shower head, detachable, sponge, long handled, tub bench with back at 06/23/2018 0945 STG Position sitting at 06/23/2018 0945 LTG Status progressing at 06/26/2018 1050 LTG Hammond Level contact guard assist at 06/23/2018 0945 LTG Adaptive Equpiment grab bars, shower head, detachable, sponge, long handled, tub bench with back at 06/23/2018 0945 LTG Position sitting at 06/23/2018 0945 UB Dressing Goal Most Recent Value STG Status continued at 06/28/2018 0932 STG Hammond Level stand by assist, set up required at 06/23/2018 0945 STG Adaptive Equipment none at 06/23/2018 0945 LTG Status continued at 06/26/2018 1050 LTG Hammond Level supervised, set up required at 06/23/2018 0945 LTG Adaptive Equipment none at 06/23/2018 0945 LB Dressing Goal Most Recent Value STG Status progressing at 06/24/2018 0850 STG Hammond Level moderate assist (50% patient effort), set up required at 06/23/2018 0945 STG Adaptive Equipment grain oilseed or pasture farm worker, shoe horn, long handled, sock-aid at 06/23/2018 0945 LTG Status progressing at 06/24/2018 0850 LTG Hammond Level contact guard assist, set up required at 06/23/2018 0945 LTG Adaptive Equipment grain oilseed or pasture farm worker, shoe horn, long handled, sock-aid at 06/23/2018 0945 Toileting Goal Most Recent Value STG Status continued at 06/28/2018 0932 STG Hammond Level minimum assist (75% patient effort), set up required, verbal cues r equired at 06/23/2018 0945 STG Assistive Device bariatric bedside commode, grab bar at 06/23/2018 0945 LTG Status progressing at 06/25/2018 1101 LTG Hammond Level contact guard assist at 06/23/2018 0945 LTG Assistive Device bariatric bedside commode, grab bar at 06/23/2018 0945 Toilet Transfer Goal Most Recent Value STG Status progressing at 06/25/2018 1101 STG Hammond Level contact guard assist at 06/23/2018 0945 STG Assistive Device bariatric, commode (3 in 1), grab bars at 06/23/2018 0945 LTG Status progressing at 06/25/2018 1101 LTG Hammond Level stand by assist at 06/23/2018 0945 LTG Assistive Device bariatric, commode (3 in 1), grab bars at 06/23/2018 0945 Tub/Shower Transfer Goal Most Recent Value Tub/Shower Type tub/shower combo at 06/23/2018 0945 STG Status progressing at 06/27/2018 0930 STG Hammond Level contact guard assist, set up required, verbal cues required at 10/0 12/2017 0945 STG Assistive Device bariatric, tub bench, grab bars at 06/23/2018 0945 LTG Status progressing at 06/25/2018 1101 LTG Hammond Level stand by assist at 06/23/201845 LTG Assistive Device bariatric, tub bench, grab bars at 06/23/2018 0945 Additional Goals #1 OT Most Recent Value STG Status progressing at 06/28/2018 0932 STG Pt will increase automatic L hand during fxl and ADL tasks by requiring Mod vc's at 1515 LTG Status new at 06/24/2018 1515 LTG Pt will increase automatic L hand during fxl and ADL tasks by requiring Min vc's at 1515 Additional Goals #2 OT Most Recent Value LTG Status progressing at 06/28/2018 0932 LTG pt will tolerate lymphedema and wound care management techniques to promote skin integ rity, reduce swelling, and promote overall participation in ADLs. at 06/26/2018 1050 Electronically signed by: Choco Abreu OT, 06/28/2018 15:00 lan of Care - Jeane Reed RN - 06/28/2018 4:04 AM PDTProblem: Patient Care Overview (Adult) Goal: Care Team Goals & Evaluation PROBLEM-RELATED GOALS: 1. Ed will remain free from all falls and injuries through 07/04/18 2. Ed's skin will remain intact and any impairments will show signs of healing by 06/25/18 3. Ed will ambulated with FWW and physical therapy by 06/29/18 4. Ed will have no deterioration in his neuro assessment through 07/04/18 5. Ed will be continent of bowel and bladder and will not have any accidents through 6. Ed will have no s/sx of aspiration through 07/04/18 7. Pt will be Mod I in transfers and amb using bariatric FWW by 07/14/18. 8. Pt will tolerate dysphagia advanced foods and nectar thick liquids with no overt s/sx of airway compromise by 07/04/2018 STRATEGY TO ACHIEVE GOALS: - Perform purposeful rounding, ensure call light is within reach and provide supervision fo r all OOB activity - Assist patient with repositioning in bed, perform incontinence care if needed and monitor for signs of skin breakdown - Encourage active participation in PT/OT - Perform neuro assessment Qshift and notify MD of any decline - Assist with toileting, encourage fluid intake for bowel and bladder function - Provide altered textures and thickened fluids and ensure patient is sitting upright for a ll oral intake - Full participation in PT session in functional mobility training. - Full participation in ST sessions Outcome: Improving Goal Evaluation: pt slept intermittently through noc. Reports LFA pain, Medicated with 2 [place]. P tremove s c-pap mask frequently. Speech slurred. Left facial droop, left tongue deviation. Left fing er to nose off. Left sided weakness, LUE 3/5, LLE 4/5. Has wraps to left wrist and BLE. 3+ e liyah to left hand and BLE. Silva in place, clear chayito urine. Inc of BM. Requires 2 assist, gait belt and platform walker for ambulation. Pt refuses recommended nectar thick liqs but t olerates thin liqs without difficulty. lan of Care - Osmar Hawkins, PARTS DEPARTMENT SUPERVISOR - 06/27/2018 9:31 PM PDTProblem: Patient Care Overview (Adult) Goal: Care Team Goals & Evaluation PROBLEM-RELATED GOALS: 1. Ed will remain free from all falls and injuries through 07/04/18 2. Ed's skin will remain intact and any impairments will show signs of healing by 06/25/18 3. Ed will ambulated with FWW and physical therapy by 06/29/18 4. Ed will have no deterioration in his neuro assessment through 07/04/18 5. Ed will be continent of bowel and bladder and will not have any accidents through 6. Ed will have no s/sx of aspiration through 07/04/18 7. Pt will be Mod I in transfers and amb using bariatric FWW by 07/14/18. 8. Pt will tolerate dysphagia advanced foods and nectar thick liquids with no overt s/sx of airway compromise by 07/04/2018 STRATEGY TO ACHIEVE GOALS: - Perform purposeful rounding, ensure call light is within reach and provide supervision fo r all OOB activity - Assist patient with repositioning in bed, perform incontinence care if needed and monitor for signs of skin breakdown - Encourage active participation in PT/OT - Perform neuro assessment Qshift and notify MD of any decline - Assist with toileting, encourage fluid intake for bowel and bladder function - Provide altered textures and thickened fluids and ensure patient is sitting upright for a ll oral intake - Full participation in PT session in functional mobility training. - Full participation in ST sessions Goal Evaluation: patient doing lots of work with OT and PT. On room air during the day, sating 96%. On his own bipap at night with 2 l/m bled in. Will continue to monitor and treat as needed. lan of Care - Aileen Rush CURB ATTENDANT - 06/27/2018 4:51 PM PDT Problem: Patient Care Overview (Adult) Goal: Care Team Goals & Evaluation PROBLEM-RELATED GOALS: 1. Ed will remain free from all falls and injuries through 07/04/18 2. Ed's skin will remain intact and any impairments will show signs of healing by 06/25/18 3. Ed will ambulated with FWW and physical therapy by 06/29/18 4. Ed will have no deterioration in his neuro assessment through 07/04/18 5. Ed will be continent of bowel and bladder and will not have any accidents through 6. Ed will have no s/sx of aspiration through 07/04/18 7. Pt will be Mod I in transfers and amb using bariatric FWW by 07/14/18. 8. Pt will tolerate dysphagia advanced foods and nectar thick liquids with no overt s/sx of airway compromise by 07/04/2018 STRATEGY TO ACHIEVE GOALS: - Perform purposeful rounding, ensure call light is within reach and provide supervision fo r all OOB activity - Assist patient with repositioning in bed, perform incontinence care if needed and monitor for signs of skin breakdown - Encourage active participation in PT/OT - Perform neuro assessment Qshift and notify MD of any decline - Assist with toileting, encourage fluid intake for bowel and bladder function - Provide altered textures and thickened fluids and ensure patient is sitting upright for a ll oral intake - Full participation in PT session in functional mobility training. - Full participation in ST sessions Outcome: Unchanged IRF Physical Therapy Plan of Care Treatment Note Summary: Sarthak has been participating in physical therapy for treatment of Impaired bal ance, gait instability, (L) sided neglect, (L) zena paresis who was admitted d/t CVA. 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 Hx of previous C VA affecting (R) side.. Emphasis of session included attempting to involve patient in func tional mobility and activity tolerance. He refused most interventions. Attempted w/c mobil ity training, self-propelling. Patient refused to propel forward, turned himself around and pushed off the wall to roll himself backward. At one point, this CURB ATTENDANT had to step in so he would not crash into another patient. He did participate in pre-gait training:walking 2 sp gths of // bars, side stepping. Remaining barriers to discharge and functional limitations include decreased insight into safety and deficits, decreased functional activity tolerance , decreased bed mobility, decreased functional transfers, decreased functional gait distance , decreased gait velocity, stairs at home, not able to navigate stairs, lives alone, demonst rating need for 24/7 supervision, unsafe discharge disposition, not yet able to mobilize at level safe for home discharge and AMPAC indicating significant impairment with basic functio nal mobility. Sarthak will benefit from continued therapeutic intervention to address ongoing impairments and increase safety and independence with activities necessary for safe discharge. Refer be low for specific details regarding functional levels. Physical Therapy Discharge Recommendations are: Recommended discharge disposition: home with assist Post discharge physical therapy recommendation: home health Equipment Recommendations: bariatric, 2 wheeled walker (FWW) Planned Interventions: balance training, bed mobility training, gait training, home exerci se program, lumbar stabilization, manual therapy techniques, motor coordination training, st air training, strengthening, ROM (Range of Motion), postural re-education, patient/family ed ucation, neuromuscular re-education, transfer training, wheelchair management/propulsion tra ining Frequency: daily (1-2x/day) Patient Status/Goals: Reflects last filed data and may be from multiple contributors. Bed Mobility VC's for positioning and safety Assistive Device: bed rails, HOB elevated, overhead trapeze Roll Left, Level of Hammond: not tested Roll Right, Level of Hammond: not tested Scoot/Bridge, Level of Hammond: set up required, verbal cues required, tactile cues re quired, moderate assist (50% patient effort) Supine to Sit, Level of Hammond: set up required, verbal cues required, tactile cues r equired, 1 person + 1 person to manage equipment, moderate assist (50% patient effort) Sit to Supine, Level of Hammond: moderate assist (50% patient effort), 1 person + 1 pe rson to manage equipment, set up required, verbal cues required, tactile cues required Safety Issues: decreased use of arms for pushing/pulling, decreased use of legs for bridgin g/pushing, impaired trunk control for bed mobility Impairments: muscle tone abnormal, decreased flexibility, strength decreased, impaired demi nce, coordination impaired, motor control impaired, postural control impaired, sensory feedb ack impaired, pain Transfers MIn A sit to stand, extensive encouragement to participate Bed-Chair, Level of Hammond: minimal assist (75% patient effort), 1 person + 1 person to manage equipment, set up required, verbal cues required, tactile cues required Chair-Bed, Level of Hammond: minimal assist (75% patient effort), 1 person + 1 person to manage equipment, set up required, verbal cues required, tactile cues required [id number], Assistive Device: wheelchair Sit-Stand, Level of Hammond: minimal assist (75% patient effort), 1 person + 1 person to manage equipment, set up required, verbal cues required, tactile cues required Stand-Sit, Level of Hammond: minimal assist (75% patient effort), 1 person + 1 person to manage equipment, set up required, verbal cues required, tactile cues required [id number], Assistive Device: none Safety Issues: balance decreased during turns, sequencing ability decreased, step length de creased, weight-shifting ability decreased, loses balance backward Impairments: muscle tone abnormal, ROM decreased, sensation decreased, strength decreased, impaired balance, coordination impaired, motor control impaired, postural control impaired, sensory feedback impaired, pain Gait refused Wheelchair Mobility refused to self propel forward, did self propel unsafely in reverse Type: other (see comments) (bariatric) Cushion: none Distance (feet): 20 Speed: unsafe, backwards, severely impulsive Level of Hammond: maximal assist (25% patient effort) (Max A required at times seconda ry to lack of safety, potentially injuring himself or others) Propulsion Technique: bilateral LE's Components: brakes, arm rests Components Management Assistance: other (see comments) (would not attempt to perform indepe ndently) Balance gait velocity= 0.2 m/sec. Sitting Balance: Static: good balance Sitting Balance: Dynamic: good balance Standing Balance: Static: poor balance Standing Balance: Dynamic: poor balance Therapeutic Exercise refused Functional Endurance poor, patient appeared oversedated or overfatigued PT Goal Review Date Most Recent Value STG Review Date 06/30/18 at 06/23/2018 0915 LTG Review Date 07/14/18 at 06/23/2018 0915 [id number]-[id number] Goal Most Recent Value STG Status progressing at 06/27/2018 1545 STG Hammond Level supervised at 06/23/2018 0915 STG Assistive Device bed rails, overhead trapeze at 06/23/2018 0915 LTG Status new at 06/23/2018 0915 LTG Hammond Level modified independent at 06/23/2018 0915 LTG Assistive Device bed rails, overhead trapeze at 06/23/2018 0915 [id number] Goal Most Recent Value STG Status progressing at 06/27/2018 1545 STG Hammond Level contact guard assist at 06/23/2018 0915 STG Assistive Device 2 wheeled walker (FWW), bariatric at 06/23/2018 0915 LTG Status continued at 06/26/2018 1749 LTG Hammond Level modified independent at 06/23/2018 0915 LTG Assistive Device 2 wheeled walker (FWW), bariatric, 4 wheeled walker (4WW) at 06/23/20 18 0915 Gait Goal Most Recent Value STG Status progressing at 06/27/2018 1545 STG Hammond Level contact guard assist at 06/23/2018 0915 STG Assistive Device bariatric, 2 wheeled walker (FWW) at 06/23/2018 0915 STG Comments 50' at 06/23/2018 0915 LTG Status new at 06/23/2018 0915 LTG Hammond Level modified independent at 06/23/2018 0915 LTG Assistive Device 2 wheeled walker (FWW), bariatric, 4 wheeled walker (4WW) at 06/23/20 18 0915 LTG Distance (feet) 50' x 3 at 06/23/2018 0915 LTG Comments ramps at 06/23/2018 0915 Wheelchair Goal Most Recent Value STG Status continued at 06/27/2018 1157 STG Pt will propel a manual wheelchair 50 feet with Min A to improve his independence at 1 1206 LTG Status new at 06/26/2018 1206 LTG Pt will propel a manual wheelchair 100 feet with Sup to improve his independence at 1206 Electronically signed by: Aileen Helms PTA, 06/27/2018 16:46 lan of Care - Barb Schrader RN - 06/27/2018 4:44 PM PDTProblem: Patient Care Overview (Adult) Goal: Care Team Goals & Evaluation PROBLEM-RELATED GOALS: 1. Ed will remain free from all falls and injuries through 07/04/18 2. Ed's skin will remain intact and any impairments will show signs of healing by 06/25/18 3. Ed will ambulated with FWW and physical therapy by 06/29/18 4. Ed will have no deterioration in his neuro assessment through 07/04/18 5. Ed will be continent of bowel and bladder and will not have any accidents through 6. Ed will have no s/sx of aspiration through 07/04/18 7. Pt will be Mod I in transfers and amb using bariatric FWW by 07/14/18. 8. Pt will tolerate dysphagia advanced foods and nectar thick liquids with no overt s/sx of airway compromise by 07/04/2018 STRATEGY TO ACHIEVE GOALS: - Perform purposeful rounding, ensure call light is within reach and provide supervision fo r all OOB activity - Assist patient with repositioning in bed, perform incontinence care if needed and monitor for signs of skin breakdown - Encourage active participation in PT/OT - Perform neuro assessment Qshift and notify MD of any decline - Assist with toileting, encourage fluid intake for bowel and bladder function - Provide altered textures and thickened fluids and ensure patient is sitting upright for a ll oral intake - Full participation in PT session in functional mobility training. - Full participation in ST sessions Outcome: Improving Goal Evaluation: Pt alert and oriented. Slurred speech, Lt facial droop. Lt tongue deviation. 2 Person assi sst w/ platform walker. Refusing nectar thick liquid. Dyspagia advanced diet, red tray. 2+ edema to lt hand and 1+ edema to b/l legs. Lympedema wraps to B/L legs. RT leg ulcer healing , dressing changed daily. LBM today. Silva draining clear chayito urine. Bipap when sleeping. MS 3/5 to LUE, 4/5 to LLE and 5/5 to RT sided extremities. Lt arm ataxic, unable to do finge r to nose. lan of Care - Choco Abreu OT - 06/27/2018 2:19 PM PDT Problem: Patient Care Overview (Adult) Goal: Care Team Goals & Evaluation PROBLEM-RELATED GOALS: 1. Ed will remain free from all falls and injuries through 07/04/18 2. Ed's skin will remain intact and any impairments will show signs of healing by 06/25/18 3. Ed will ambulated with FWW and physical therapy by 06/29/18 4. Ed will have no deterioration in his neuro assessment through 07/04/18 5. Ed will be continent of bowel and bladder and will not have any accidents through 6. Ed will have no s/sx of aspiration through 07/04/18 7. Pt will be Mod I in transfers and amb using bariatric FWW by 07/14/18. 8. Pt will tolerate dysphagia advanced foods and nectar thick liquids with no overt s/sx of airway compromise by 07/04/2018 STRATEGY TO ACHIEVE GOALS: - Perform purposeful rounding, ensure call light is within reach and provide supervision fo r all OOB activity - Assist patient with repositioning in bed, perform incontinence care if needed and monitor for signs of skin breakdown - Encourage active participation in PT/OT - Perform neuro assessment Qshift and notify MD of any decline - Assist with toileting, encourage fluid intake for bowel and bladder function - Provide altered textures and thickened fluids and ensure patient is sitting upright for a ll oral intake - Full participation in PT session in functional mobility training. - Full participation in ST sessions Outcome: Improving IRF Occupational Therapy Plan of Care Treatment Note Summary: Sarthak has been participating in occupational therapy for treatment of decrease d ADL performance, fxl mobility, activity tolerance, safety awareness s/p ischemic CGA, L si ded weakness. Emphasis of session included hygiene care, bed mobility, sit<>stand t/f, BUE strengthening/ROM exercises in prep for fxl activities, t/fs, and ADLs. Patient demonstrate s progress towards functional goals as evidenced by motivation to participate in tx, though seated at EOB. Pt soiled upon arrival, demonstrating dependence in pericare. Pt reports that he receives assistance from caregiver at home and continues to request assist with pericare . Placed Tubgrip on LUE hand/forearm to assist with fluid/swelling reduction. Remaining bar riers to discharge and functional limitations include decreased insight into safety and defi cits, decreased functional activity tolerance, decreased bed mobility, decreased functional transfers, decreased ability to perform ADLs, decreased ability to perform IADLs, decreased ability to perform medication management, demonstrating need for 24/7 supervision, not yet a ble to mobilize at level safe for home discharge and medical status. Edward will benefit from continued therapeutic intervention to address ongoing impairments and increase safety and independence with activities necessary for safe discharge. Refer be low for specific details regarding functional levels. Occupational Therapy Discharge Recommendations are: Recommended discharge disposition: home with assist, long-term facility Post discharge occupational therapy recommendation: will benefit from structured setting, home health Equipment Recommendations: bariatric, commode (3 in 1), long handled sponge, grain oilseed or pasture farm worker, sock aide Planned Interventions:ADL retraining, balance training, bed mobility training, motor coordi nation training, neuromuscular re-education, fine motor coordination training, ROM (Range of Motion), strengthening, transfer training Recommended Frequency: other (see comments) (rehab schedule) Patient Status/Goals: Reflects last filed data and may be from multiple contributors. ADLs Pt had bowel movement supine in bed upon arrival, pt is dependent with pericare. 1P assist for pericare, 1P to assist pt in sidelying position. Depends underwear placed with assistanc e. Toileting Assess/Train, Impairments: (body habitus, incontinence) Therapeutic Exercise Pt participated in BUE strengthening/ROM excercises in prep for fxl t/fs and ADLs as well a s to promote fluid reduction in LUE. Pt complete 3 sets of 15 AROM elbow flexion/extension, 2 sets of 15 light wrist flexion/extension, and 2 sets of 15 full composite finger flexion w ith stabilization given at elbow and wrist d/t pain. Pt complete 2 sets of 15 with 5 lb weig ht of elbow flexion/extension. Pt completed exercises seated at EOB. Shoulder exercises: bilateral Functional Endurance Poor+, pt fatigued and c/o of LUE pain Cognitive Pt not agitated this tx session, and cooperative Mood/Behavior: calm, cooperative Orientation: oriented x 4 Speech: slurred Bed Mobility Vc's throughout for body positioning and technique for safety d/t pain in LUE. Assistive Device: bed rails, HOB elevated, overhead trapeze Roll Right, Level of Hammond: stand by assist, verbal cues required Scoot/Bridge, Level of Hammond: minimal assist (75% patient effort), verbal cues requi red Supine to Sit, Level of Hammond: set up required, verbal cues required, tactile cues r equired, moderate assist (50% patient effort), 1 person + 1 person to manage equipment Sit to Supine, Level of Hammond: verbal cues required, minimal assist (75% patient eff ort), 1 person + 1 person to manage equipment Safety Issues: decreased use of arms for pushing/pulling, decreased use of legs for bridgin g/pushing, impaired trunk control for bed mobility Impairments: muscle tone abnormal, decreased flexibility, strength decreased, impaired dmei nce, coordination impaired, motor control impaired, postural control impaired, sensory feedb ack impaired, pain Transfers Min A for sit<>stand at EOB, 1P+1P for managing silva bag and safety Sit-Stand, Level of Hammond: minimal assist (75% patient effort), 1 person + 1 person to manage equipment, tactile cues required, verbal cues required, set up required Stand-Sit, Level of Hammond: minimal assist (75% patient effort), set up required, param bal cues required, tactile cues required [id number], Assistive Device: none Safety Issues: balance decreased during turns, sequencing ability decreased, step length de creased, weight-shifting ability decreased Impairments: muscle tone abnormal, ROM decreased, sensation decreased, strength decreased, impaired balance, coordination impaired, motor control impaired, postural control impaired, pain OT Goal Review Date Most Recent Value STG Review Date 06/30/18 at 06/23/2018 0945 LTG Review Date 07/07/18 at 06/23/2018 0945 Grooming Goal Most Recent Value STG Status met at 06/24/2018 0850 STG Hammond Level minimum assist (75% patient effort) at 06/23/2018 0945 STG Position sitting in chair at 06/23/2018 0945 STG Adaptive Equipment none at 06/23/2018 0945 LTG Status progressing at 06/26/2018 1050 LTG Hammond Level supervised at 06/25/2018 1101 LTG Position sitting in chair at 06/23/2018 0945 LTG Adaptive Equipment none at 06/23/2018 0945 Bathing Goal Most Recent Value STG Status progressing at 06/27/2018 0930 STG Hammond Level minimum assist (75% patient effort), set up required, verbal cues r equired at 06/23/2018 0945 STG Adaptive Equpiment grab bars, shower head, detachable, sponge, long handled, tub bench with back at 06/23/2018 0945 STG Position sitting at 06/23/2018 0945 LTG Status progressing at 06/26/2018 1050 LTG Hammond Level contact guard assist at 06/23/2018 0945 LTG Adaptive Equpiment grab bars, shower head, detachable, sponge, long handled, tub bench with back at 06/23/2018 0945 LTG Position sitting at 06/23/2018 0945 UB Dressing Goal Most Recent Value STG Status progressing at 06/27/2018 0930 STG Hammond Level stand by assist, set up required at 06/23/2018 0945 STG Adaptive Equipment none at 06/23/2018 0945 LTG Status continued at 06/26/2018 1050 LTG Hammond Level supervised, set up required at 06/23/2018 0945 LTG Adaptive Equipment none at 06/23/2018 0945 LB Dressing Goal Most Recent Value STG Status progressing at 06/24/2018 0850 STG Hammond Level moderate assist (50% patient effort), set up required at 06/23/2018 0945 STG Adaptive Equipment grain oilseed or pasture farm worker, shoe horn, long handled, sock-aid at 06/23/2018 0945 LTG Status progressing at 06/24/2018 0850 LTG Hammond Level contact guard assist, set up required at 06/23/2018 0945 LTG Adaptive Equipment grain oilseed or pasture farm worker, shoe horn, long handled, sock-aid at 06/23/2018 0945 Toileting Goal Most Recent Value STG Status continued at 06/27/2018 1345 STG Hammond Level minimum assist (75% patient effort), set up required, verbal cues r equired at 06/23/2018 0945 STG Assistive Device bariatric bedside commode, grab bar at 06/23/2018 0945 LTG Status progressing at 06/25/2018 1101 LTG Hammond Level contact guard assist at 06/23/2018 0945 LTG Assistive Device bariatric bedside commode, grab bar at 06/23/2018 0945 Toilet Transfer Goal Most Recent Value STG Status progressing at 06/25/2018 1101 STG Hammond Level contact guard assist at 06/23/2018 0945 STG Assistive Device bariatric, commode (3 in 1), grab bars at 06/23/2018 0945 LTG Status progressing at 06/25/2018 1101 LTG Hammond Level stand by assist at 06/23/2018 0945 LTG Assistive Device bariatric, commode (3 in 1), grab bars at 06/23/2018 0945 Tub/Shower Transfer Goal Most Recent Value Tub/Shower Type tub/shower combo at 06/23/2018 0945 STG Status progressing at 06/27/2018 0930 STG Hammond Level contact guard assist, set up required, verbal cues required at 12/2017 0945 STG Assistive Device bariatric, tub bench, grab bars at 06/23/2018 0945 LTG Status progressing at 06/25/2018 1101 LTG Hammond Level stand by assist at 06/23/2018 0945 LTG Assistive Device bariatric, tub bench, grab bars at 06/23/2018 0945 Additional Goals #1 OT Most Recent Value STG Status progressing at 06/27/2018 1345 STG Pt will increase automatic L hand during fxl and ADL tasks by requiring Mod vc's at 1515 LTG Status new at 06/24/2018 1515 LTG Pt will increase automatic L hand during fxl and ADL tasks by requiring Min vc's at 1515 Additional Goals #2 OT Most Recent Value LTG Status progressing at 06/27/2018 0930 LTG pt will tolerate lymphedema and wound care management techniques to promote skin integ rity, reduce swelling, and promote overall participation in ADLs. at 06/26/2018 1050 Electronically signed by: Chooc Abreu OT, 06/27/2018 15:59 atient Care Conferen ce - Brad, Pramod Tobar MD - 06/27/2018 1:26 PM PDTFormatting of this note might be differ ent from the original. [facility] Inpatient Rehabilitation Facility Individualized Overall Plan of Care Weekly Team Conference Patient Identification Sarthak Nelson is a 67 y.o. male. : 1950 Admit Date: 06/22/2018 Attending Provider: Pramod Salinas MD Primary Care Physician: Jericho Cao MD Admitting Diagnosis: CVA Team Conference Date: 06/28/2018 Medical Prognosis and need for Rehabilitation Physician oversight and anticipated Rehabilit ation Physician interventions: [place] for functional progress is guarded due to His curren t burden of care, complicated by his severe morbid obesity; and again complicated by his beh avioral disorder and intermittent noncompliance.. Physician Summary: Thepatient'schartwasreviewedregardingintervalmedicalhistory,noting documentations, ordersandrecent events. The patient was seen and evaluated on rounds. We addressed the current focus of the rehab ilitation program with the patient. Note: myProgressNotedocumentscloseandongoingPhysiatricinvolvement; face-to- face visits,professionallyassessing thePatient , bothMedicallyandFunctiona lly,withthe emphasisontheimportantinteractionsbetweenourPatient'scurrent clinicalstatus, especiallyissues/barriersthatmayimpactontheRehabilitationTeam'streatment andprogress towardour medicalandfunctionalgoals. Iopinethatthisisimportant,sowemaymaximizeourPatient'scapacityto benefitfromthe ComprehensiveInpatientMedicalRehabilitationprocess. Thepatientisseenandclinicalstatusaddressedincollaborationwiththereh abteam. Imet withthechargenurseregarding overallnursingcareconcernsand discussedtheoverallnursingproblematicissues. We met speech therapy as well as [...] were addressed, including continence, skin issues, and alfredo n complaints. Wealsofollowedupwiththepatient'sfloornurse,discussingtheabove,shiv callaway addressingthespecificnursing patientcarefocusoftheday , reviewingthe pa tient'scurrentstatusandaddressinganyquestions,concernsand/orrelated issues . Advancing bowel program is problematic because of the above complaints issue. He is overall complying better with using his CPAP at night. Nursing is continuing to work with her on further education on the medication and medicatio n management. Thefullmedicalrehabilitationteamdidmeettodayinconference. Thepatient'spertinentactive medicalproblems, comorbidities, andmedicalrehabilitationneedswerediscussedandshared withtheteammember s. Iopinethatthereisareasonableexpectationthat due to thecomplexityofour patient'snursing/medical management andrehabilitationneedsrequiresaninpatientstay,includingaphysicianlead and coordinatedinterdisciplinaryteamapproachtothedeliveryofrehabilitationc are. IchairedtheRehabilitativeTeamConferenceandledtheteam's collaboration . Wediscussed,assessed, and addressed ourpatient'scurrent impairments, comorbid ities, short-term goals, current focus of our rehabilitation team treatments andbarriers ; Notingtolerance, compliance ,and progresstowardstherehabilitationgoals. ThefullRehabTeamcollaborated;consideringandaddressingthepatient'scurren ttolerance andcompliancewiththerehabilitationtreatment, notinganyissuesa ndseekingresolutionof anyproblems/barriersimpedingprogresstowardsgoals. Igarneredtheinformation fromalloftheMedicalRehabilitationTeammembers' assessmentsandreportsaswesynthesizedandadvancedtheoverallplanofcare .Thevalidityofourrehabilitationgoalswerereassessedaswemonitoredandre visedthetreatmentplanas indicated. We are having some difficulty with [...] needs, o r more likely discharge to long-term facility. He stated understanding of this. Following team conference I met with the patient and discussed the above. Safety with self-careand mobility were discussed. The patient's current rehabilitation plan of care and projected discharge destination were discussed and reviewed with the patient and ourcase high risk case manager. She is collaborating with the patient's support system to solicit their input as we adv ance the program. Rehabilitation Nursing Summary: Pt alert and oriented. Slurred speech, Lt facial droop. Lt tongue deviation. 2 Person assist w/ platform walker. Refusing nectar thick liquid. Dysphag ia advanced diet, red tray. 2+ edema to lt hand and 1+ edema to bilateral legs. Lymphedema wraps to Bilateral legs. RT leg ulcer healing, dressing changed daily. LBM 06/27/18. Silva dr jimenez clear chayito urine. Bipap when sleeping. MS 3/5 to LUE, 4/5 to LLE and 5/5 to RT sided extremities. Lt arm ataxic, unable to do finger to nose. Safety Management: Elopement/wander risk: No General Risk Interventions: Cognitive Impairment Interventions: Altered Eliminations/Toileting interventions: Safety Management Goal: Patient will remain free from all falls and injuries and will call appropriately for assistance during rehab stay Pain Management: Pain ratin-9/10 Pain Management Goal: Patient will report pain adequately controlled to allow for active p articipation in therapies Skin Management: Ryan Score: (!) 18 Skin Management Goal: Patient's skin will remain intact during rehab stay Bladder Management: FIM BladderScore: 1; Evidence: 1 Do Silva Maintainance # Bladder accidents last 7 days: 0 Bladder Management Goal: Patient will void, be continent or urine and will be able to empty bladder with acceptably low PVR's during rehab stay Bowel Management: FIM Bowel Score: 1; Evidence: 1 Clean Stool Spill, 1 Change Linens, 1 Change Clothing # Bowel accidents last 7 days: 3 Bowel Management Goal: Patient will have a bowel movement at least every other day and elton l be continent Nutrition Management: Nutrition Management Goal: Patient will consume >75% of 3 meals a day Patient is eating 100% of most meals on a consistent carb, dysphagia advenced diet with nec tar thick liquids at meals. RED TRAY for supervision to use swallow strategies. Dysphagia ad vanced foods. Foods cut up into 1" pieces. Extra sauces and gravies. No tough hard crunchy r aw foods. Moist breads. Intake overall appears adequate at this time. Will continue to foll ow up to monitor and note need for interventions. Nightime Management: Nighttime Management Goal: Patient will sleep adequate amounts during the night to allow f or activity during the day Mobility Summary: Patient's functional mobility is Min A. However, because of patient's size and behavior, 2 helpers are required. He appears able to perform at a much higher leve l that he is demonstrating. He becomes easily frustrated, then begins to get angry and cont rary. He demonstrates unsafe activities-such as pushing away, backwards in w/c despite balwinder mcgrath warned that he will crash into someone. Will cont as able. Pt c/o significant pain on (L ) wrist and FA and noted significant swelling over the weekend limiting his ability to use ( L) hand and has also neglect on (L) side. Pt is a high fall risk d/t his neglect and behavi or. Pt will need more supervision and caregiver hrs.upon d/c. Transfers FIM Bed/Chair/Wheelchair Score: 1; Evidence:6 Extra Time, 6 Grab Bar, 6 Walker/Crutch/Ca ne, 1 Two Helpers FIM Toilet Transfer Score: 1; Evidence: 6 Extra Time, 6 Grab Bar Hammond, 6 Amb Device Hammond, 5 Safety Garber pervision, 5 Verbal Cues, 4 Steadying, 1 Two Helpers FIM Tub/Shower Transfer Score: 4; Evidence: 4 Steadying, 5 Verbal Cues, 5 Safety Supervision, 6 Extra Time Locomotion FIM Walk Score: 1; Evidence: 1 Walks <50 ft, 1 Two Helpers FIM Distance Walked(feet): 10 feet FIM Wheelchair Score: 4 Evidence: patient performs 75%% of activity, although unsafe Level of Hammond: minimal assist (75% patient effort) Propulsion Technique: bilateral LE's Components: brakes, arm rests Components Management Assistance: other (see comments) (would not attempt to perform indep endently) Wheelchair Mobility Comments: refused to self propel forward, did self propel unsafely in reverse FIM Stairs Score :0; Evidence: 0 Unsafe PT GOALS PT Goal Review Date Most Recent Value STG Review Date 06/30/18 at 06/23/2018914 LTG Review Date 07/14/18 at 06/23/2018 0915 Bkirsl-Wea-Meobvy Goal Most Recent Value STG Status progressing at 06/27/2018 1545 STG Hammond Level supervised at 06/23/201815 STG Assistive Device bed rails, overhead trapeze at 06/23/2018 0915 LTG Status new at 06/23/201815 LTG Hammond Level modified independent at 06/23/2018 0915 LTG Assistive Device bed rails, overhead trapeze at 06/23/2018 0915 [id number]-Slw Goal Most Recent Value STG Status progressing at 06/27/2018 1545 STG Hammond Level contact guard assist at 06/23/201815 STG Assistive Device 2 wheeled walker (FWW), bariatric at 06/23/2018 0915 LTG Status continued at 06/26/2018 1749 LTG Hammond Level modified independent at 06/23/2018 0915 LTG Assistive Device 2 wheeled walker (FWW), bariatric, 4 wheeled walker (4WW) at 06/23/20 18 0915 Gait Goal Most Recent Value STG Status progressing at 06/27/2018 1545 STG Hammond Level contact guard assist at 06/23/2018 0915 STG Assistive Device bariatric, 2 wheeled walker (FWW) at 06/23/2018 0915 STG Comments 50' at 06/23/2018 0915 LTG Status new at 06/23/2018 0915 LTG Hammond Level modified independent at 06/23/2018 0915 LTG Assistive Device 2 wheeled walker (FWW), bariatric, 4 wheeled walker (4WW) at 06/23/20 18 0915 LTG Distance (feet) 50' x 3 at 06/23/2018 0915 LTG Comments ramps at 06/23/2018 0915 Wheelchair Goal Most Recent Value STG Status continued at 06/27/2018 1157 STG Pt will propel a manual wheelchair 50 feet with Min A to improve his independence at 1 1206 LTG Status new at 06/26/2018 1206 LTG Pt will propel a manual wheelchair 100 feet with Sup to improve his independence at 1206 Self Care Summary: Pt will participate in therapies if given autonomy to be "asked what t o do" vs. "told what to do." Pt at times agitated, and d/t agitation, impulsive with ADLs an d fxl mobility. Pt reports relying and caregiver at home for bathing/dressing/toileting task s. Coban 2 system placed on BLE, LLE every other day, RLE daily with wound care management ( aqua cell and ABD pad) as well as moisturizing lotion and calazine lotion on fungal spots on RLE. Barriers include: pt behavior and LUE pain/weakness. FIM Eating Score: 5; Evidence: FIM Grooming Score: 4; Evidence: 5 Apply Toothpaste, 5 Get Items, 5 Verbal Cues, 5 Safety Supervison FIM Bathing Score: 3; Evidence: 3 Dep 3-5 Areas, buttocks, L lower leg, R lower leg, 4 Steadying, 5 Get Items, 5 Verbal Cues, 5 Safety Supervison, 6 Long Handled Sponge, 6 Extra Time FIM Dressing Upper Body Score: 4; Evidence:Envelope Patternmaker Garment, 5 Get Clothing, 5 Verbal Cu es, 6 Extra Time FIM Dressing Lower Body Score: 3; Evidence:3 Dep 4-7 Tasks FIM Toileting Score: 1; Evidence:6 Extra Time, 6 Grab Bar, 5 Safety Supervision, 5 Verb al Cues, 4 Steadying, 1 Dep 3 of 3 Tasks, 1 Two Helpers OT Goals OT Goal Review Date Most Recent Value STG Review Date 06/30/18 at 06/23/2018 0945 LTG Review Date 07/07/18 at 06/23/2018 0945 Grooming Goal Most Recent Value STG Status met at 06/24/2018 0850 STG [place] Level minimum assist (75% patient effort) at 06/23/2018 0945 STG Position sitting in chair at 06/23/2018 0945 STG Adaptive Equipment none at 06/23/2018 0945 LTG Status progressing at 06/26/2018 1050 LTG [place] Level supervised at 06/25/2018 1101 LTG Position sitting in chair at 06/23/2018 0945 LTG Adaptive Equipment none at 06/23/2018 0945 Bathing Goal Most Recent Value STG Status progressing at 06/27/2018 0930 STG [place] Level minimum assist (75% patient effort), set up required, verbal cues r equired at 06/23/2018 0945 STG Adaptive Equpiment grab bars, shower head, detachable, sponge, long handled, tub bench with back at 06/23/2018 0945 STG Position sitting at 06/23/2018 0945 LTG Status progressing at 06/26/2018 1050 LTG [place] Level contact guard assist at 06/23/2018 0945 LTG Adaptive Equpiment grab bars, shower head, detachable, sponge, long handled, tub bench with back at 06/23/2018 0945 LTG Position sitting at 06/23/2018 0945 UB Dressing Goal Most Recent Value STG Status progressing at 06/27/2018 0930 STG Hammond Level stand by assist, set up required at 06/23/2018 0945 STG Adaptive Equipment none at 06/23/2018 0945 LTG Status continued at 06/26/2018 1050 LTG Hammond Level supervised, set up required at 06/23/2018 0945 LTG Adaptive Equipment none at 06/23/2018 0945 LB Dressing Goal Most Recent Value STG Status progressing at 06/24/2018 0850 STG Hammond Level moderate assist (50% patient effort), set up required at 06/23/2018 0945 STG Adaptive Equipment grain oilseed or pasture farm worker, shoe horn, long handled, sock-aid at 06/23/2018 0945 LTG Status progressing at 06/24/2018 0850 LTG [place] Level contact guard assist, set up required at 06/23/2018 0945 LTG Adaptive Equipment grain oilseed or pasture farm worker, shoe horn, long handled, sock-aid at 06/23/2018 0945 Toileting Goal Most Recent Value STG Status continued at 06/27/2018 1345 STG [place] Level minimum assist (75% patient effort), set up required, verbal cues r equired at 06/23/2018 0945 STG Assistive Device bariatric bedside commode, grab bar at 06/23/2018 0945 LTG Status progressing at 06/25/2018 1101 LTG [place] Level contact guard assist at 06/23/2018 0945 LTG Assistive Device bariatric bedside commode, grab bar at 06/23/2018 0945 Toilet Transfer Goal Most Recent Value STG Status progressing at 06/25/2018 1101 STG [place] Level contact guard assist at 06/23/2018 0945 STG Assistive Device bariatric, commode (3 in 1), grab bars at 06/23/2018 0945 LTG Status progressing at 06/25/2018 1101 LTG [place] Level stand by assist at 06/23/2018 0945 LTG Assistive Device bariatric, commode (3 in 1), grab bars at 06/23/2018 0945 Tub/Shower Transfer Goal Most Recent Value Tub/Shower Type tub/shower combo at 06/23/2018 0945 STG Status progressing at 06/27/2018 0930 STG [place] Level contact guard assist, set up required, verbal cues required at 12/2017 0945 STG Assistive Device bariatric, tub bench, grab bars at 06/23/2018 0945 LTG Status progressing at 06/25/2018 1101 LTG [place] Level stand by assist at 06/23/2018 0945 LTG Assistive Device bariatric, tub bench, grab bars at 06/23/2018 0945 Additional Goals #1 OT Most Recent Value STG Status progressing at 06/27/2018 1345 STG Pt will increase automatic L hand during fxl and ADL tasks by requiring Mod vc's at 1515 LTG Status new at 06/24/2018 1515 LTG Pt will increase automatic L hand during fxl and ADL tasks by requiring Min vc's at 1515 Additional Goals #2 OT Most Recent Value LTG Status progressing at 06/27/2018 0930 LTG pt will tolerate lymphedema and wound care management techniques to promote skin integ rity, reduce swelling, and promote overall participation in ADLs. at 06/26/2018 1050 Cognition/Communication Summary: Pt continues to present with left facial droop and slurred speech. INTERACTIVE MEDIA MARKETING STRATEGIST introduced facial strengthening exercises and will continue to target speech in telligibility, facial droop, and swallow function. Barriers include poor behaviors and refus al to comply with therapists recommendations. Problem Solving Score: 3; Evidence: 6 Mild Diff Complex, 6 Extra Time, 3 Daily Prbs 50-74% Memory Score: 4; Evidence: 6 Extra Time, 5 Cues During Stress, 4 Recalls 75-90% Comprehension/AuditoryScore: 5; Evidence: 6 Uses Glasses, 6 Needs Extra Time, 5 Cues During Stress, 5 Comp 91-99% Verbal Expression Score: 5; Evidence: 6 Mild Diff Complx, 6 Extra Time, 5 Cues During Stress, 4 Express 75-90% Social Interaction Score: 4; Evidence:4 Approp 75-90%, 6 Extra Time, 5 Cues During Stres s Dysphagia/Swallow: Dysphagia Advanced diet. Harrold thick liquids recommended. Pt is noncomp liant with recommended liquids refuses to drink anything but thin. He has been noted to coug h with thin. He is improving use of compensatory strategies. INTERACTIVE MEDIA MARKETING STRATEGIST Goals Cognition Goal Most Recent Value STG Status new at 06/23/2018 1534 STG Pt will participate in full cognitive/com assessment to determine cause severity and update POC. at 06/23/2018 1534 Solid Texture Goal Most Recent Value STG Status new at 06/23/2018 1534 STG Pt will tolerate dysphagia advanced foods with no overt s/sx of airway compromise at 06/23/2018 1534 LTG Status new at 06/23/2018 1534 LTG Pt will tolerate dental soft foods cut up with no overt s/sx of airway compromise at 1 1534 Liquid Texture Goal Most Recent Value STG Status new at 06/23/2018 1534 STG Pt will tolerate nectar thick liquids by cup/straw with no s/sx of airway compromise a t 06/23/2018 153 LTG Status new at 06/23/2018 1534 LTG Pt will tolerate thin liquids by cup with no overt s/sx of airway compromise at 2017 1534 Additional Goals #1 INTERACTIVE MEDIA MARKETING STRATEGIST Most Recent Value STG Status new at 06/23/2018 153 STG Pt will complete oral motor exercises for improved facial droop with 75% accuracy and min cues. at 06/23/2018 153 Leisure/Community: Therapeutic day pass appropriate: no Education Caregiver training initiated: no Sexuality education initiated: no Other education initiated (see Patient Education activity): yes Recommended Discharge Equipment bariatric, 2 wheeled walker (FWW), bariatric, commode (3 in 1), long handled sponge, reach er, sock aide Barriers to Discharge Barriers to Discharge: See above comments, including my thoughts and the physician discuss ion. Barrier Resolution Plan: Continue with therapy training, Discuss with family, MD to manag e medications, Social work consultation and Confirm his 's ability to participate in his care needs, as well as her commitment to accept him back into their home. Post-Discharge Plan Setting: TBD Level of Assist Recommended for Discharge: 24 hour assistance Anticipate post discharge services: Home, Home health care PT, Home health care OT, Home health care INTERACTIVE MEDIA MARKETING STRATEGIST, Home health care RN and Home health care SW Prosthetics/Orthotics therapeutic interventions recommended: no Admission Date: 06/22/2018 ELOS: 14 more days Projected DC Date: July 14 Team Goals: patient is remained medically stable. Patient is to commitment to fully participate and comply with treatment. Comply the 's ability and willingness to do same and clarify if she is willing to accep t the patient back into their home. See above comments, including my thoughts in the physician discussion. Participants: MD: Pramod Salinas MD RN: YUMIKO Mcintyre PT: Angelica Ly PT; Aileen Helms PTA OT: Choco Abreu OTR/L INTERACTIVE MEDIA MARKETING STRATEGIST: Chayito Soriano MS, CCC-INTERACTIVE MEDIA MARKETING STRATEGIST CM/SW: Alaina Rogers MSW Following interdisciplinary discussion and planning, I fully agree with the above. lan of Care - Jean Claude mcgrath Angelica Darlene, PT - 06/27/2018 11:57 AM PDT Problem: Patient Care Overview (Adult) Goal: Care Team Goals & Evaluation PROBLEM-RELATED GOALS: 1. Ed will remain free from all falls and injuries through 07/04/18 2. Ed's skin will remain intact and any impairments will show signs of healing by 06/25/18 3. Ed will ambulated with FWW and physical therapy by 06/29/18 4. Ed will have no deterioration in his neuro assessment through 07/04/18 5. Ed will be continent of bowel and bladder and will not have any accidents through 6. Ed will have no s/sx of aspiration through 07/04/18 7. Pt will be Mod I in transfers and amb using bariatric FWW by 07/14/18. 8. Pt will tolerate dysphagia advanced foods and nectar thick liquids with no overt s/sx of airway compromise by 07/04/2018 STRATEGY TO ACHIEVE GOALS: - Perform purposeful rounding, ensure call light is within reach and provide supervision fo r all OOB activity - Assist patient with repositioning in bed, perform incontinence care if needed and monitor for signs of skin breakdown - Encourage active participation in PT/OT - Perform neuro assessment Qshift and notify MD of any decline - Assist with toileting, encourage fluid intake for bowel and bladder function - Provide altered textures and thickened fluids and ensure patient is sitting upright for a ll oral intake - Full participation in PT session in functional mobility training. - Full participation in ST sessions IRF Physical Therapy Plan of Care Treatment Note Summary: Sarthak has been participating in physical therapy for treatment of Impaired bal ance, gait instability, (L) sided neglect, (L) zena paresis who was admitted d/t CVA. 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 Hx of previous C VA affecting (R) side.. Emphasis of session included bed mobility, transfers and w/c mobil ity training. Pt did not participate well during tx d/t c/o lack of sleep, (L) hand/wrist pa in. Pt expressed that he does not do well when people are ordering him what to do and he ge ts upset. Discussed POC and best way to approach pt to meet his goals and to work well with pt. Tx was discontinued to prevent pt from causing harm to himself when he was upset and d oes not process things well. Pt was encouraged to do non wt.bearing on (L) hand until asses sed by Dr. Salinas. . Remaining barriers to discharge and functional limitations include decr eased insight into safety and deficits, decreased functional activity tolerance, decreased b ed mobility, decreased functional transfers, decreased functional gait distance, decreased g ait velocity, demonstrating need for 24/7 supervision, unsafe discharge disposition, not yet able to mobilize at level safe for home discharge and medical status. Edward will benefit from continued therapeutic intervention to address ongoing impairments and increase safety and independence with activities necessary for safe discharge. Refer be low for specific details regarding functional levels. Physical Therapy Discharge Recommendations are: Recommended discharge disposition: home with assist Post discharge physical therapy recommendation: home health Equipment Recommendations: bariatric, 2 wheeled walker (FWW) Planned Interventions: balance training, bed mobility training, gait training, home exerci se program, lumbar stabilization, manual therapy techniques, motor coordination training, st air training, strengthening, ROM (Range of Motion), postural re-education, patient/family ed ucation, neuromuscular re-education, transfer training, wheelchair management/propulsion tra ining Frequency: daily (1-2x/day) Patient Status/Goals: Reflects last filed data and may be from multiple contributors. Bed Mobility verbal cues for correct technique to prevent wt.on (L) wrist/FA. Assistive Device: bed rails, HOB elevated, overhead trapeze Roll Left, Level of Hammond: not tested Roll Right, Level of Hammond: stand by assist, verbal cues required Scoot/Bridge, Level of Hammond: minimal assist (75% patient effort), verbal cues requi red Supine to Sit, Level of Hammond: set up required, verbal cues required, tactile cues r equired, moderate assist (50% patient effort) Sit to Supine, Level of Hammond: verbal cues required, minimal assist (75% patient eff ort) Safety Issues: decreased use of arms for pushing/pulling, decreased use of legs for bridgin g/pushing, impaired trunk control for bed mobility Impairments: muscle tone abnormal, decreased flexibility, strength decreased, impaired demi nce, coordination impaired, motor control impaired, postural control impaired, sensory feedb ack impaired, pain Transfers verbal cues for hand placement and to push with (R) hand on the chair. stand pivot techni que was tried to assess safe transfer technique vs using AD. Bed-Chair, Level of Hammond: 1 person + 1 person to manage equipment, set up required, verbal cues required, tactile cues required, minimal assist (75% patient effort) Chair-Bed, Level of Hammond: 1 person + 1 person to manage equipment, set up required, verbal cues required, tactile cues required, minimal assist (75% patient effort) [id number], Assistive Device: wheelchair Sit-Stand, Level of Hammond: minimal assist (75% patient effort), 1 person + 1 person to manage equipment, tactile cues required, verbal cues required, set up required Stand-Sit, Level of Hammond: minimal assist (75% patient effort), set up required, param bal cues required, tactile cues required [id number], Assistive Device: wheelchair Safety Issues: balance decreased during turns, sequencing ability decreased, step length de creased, weight-shifting ability decreased Impairments: muscle tone abnormal, ROM decreased, sensation decreased, strength decreased, impaired balance, coordination impaired, motor control impaired, postural control impaired, pain Wheelchair Mobility Mod A to manuever w/c on tight space. Type: other (see comments) (bariatric) Cushion: None Surface: indoor Distance (feet): 40 Speed: slow Level of Hammond: minimal assist (75% patient effort) Propulsion Technique: bilateral LE's Components: brakes, arm rests Components Management Assistance: minimum assist/contact guard assist (75% patients effort) (need assistance to lock w/c brakes on (L) d/t paina nd weakness. ) PT Goal Review Date Most Recent Value STG Review Date 06/30/18 at 06/23/2018914 LTG Review Date 07/14/18 at 06/23/2018 0915 [id number] Goal Most Recent Value STG Status continued at 06/27/2018 1157 STG [place] Level supervised at 06/23/2018 0915 STG Assistive Device bed rails, overhead trapeze at 06/23/2018 0915 LTG Status new at 06/23/2018 0915 LTG [place] Level modified independent at 06/23/2018 0915 LTG Assistive Device bed rails, overhead trapeze at 06/23/2018 0915 Hma-Tuppo-Oat Goal Most Recent Value STG Status progressing at 06/27/2018 1157 STG [place] Level contact guard assist at 06/23/2018 0915 STG Assistive Device 2 wheeled walker (FWW), bariatric at 06/23/2018 0915 LTG Status continued at 06/26/2018 1749 LTG Hammond Level modified independent at 06/23/2018 0915 LTG Assistive Device 2 wheeled walker (FWW), bariatric, 4 wheeled walker (4WW) at 06/23/20 18 0915 Gait Goal Most Recent Value STG Status continued at 06/26/2018 1206 STG [place] Level contact guard assist at 06/23/2018 0915 STG Assistive Device bariatric, 2 wheeled walker (FWW) at 06/23/2018 0915 STG Comments 50' at 06/23/2018 0915 LTG Status new at 06/23/2018 0915 LTG Hammond Level modified independent at 06/23/2018 0915 LTG Assistive Device 2 wheeled walker (FWW), bariatric, 4 wheeled walker (4WW) at 06/23/20 18 0915 LTG Distance (feet) 50' x 3 at 06/23/2018 0915 LTG Comments ramps at 06/23/2018 0915 Wheelchair Goal Most Recent Value STG Status continued at 06/27/2018 1157 STG Pt will propel a manual wheelchair 50 feet with Min A to improve his independence at 1 1206 LTG Status new at 06/26/2018 1206 LTG Pt will propel a manual wheelchair 100 feet with Sup to improve his independence at 1206 Electronically signed by: ANGELICA LY, PT, 06/27/2018 12:17 lan of Care - Choco Abreu, OT - 06/27/2018 10:44 AM PDTFormatting of this note might be different from the or iginal. Problem: Patient Care Overview (Adult) Goal: Care Team Goals & Evaluation PROBLEM-RELATED GOALS: 1. Ed will remain free from all falls and injuries through 07/04/18 2. Ed's skin will remain intact and any impairments will show signs of healing by 06/25/18 3. Ed will ambulated with FWW and physical therapy by 06/29/18 4. Ed will have no deterioration in his neuro assessment through 07/04/18 5. Ed will be continent of bowel and bladder and will not have any accidents through 6. Ed will have no s/sx of aspiration through 07/04/18 7. Pt will be Mod I in transfers and amb using bariatric FWW by 07/14/18. 8. Pt will tolerate dysphagia advanced foods and nectar thick liquids with no overt s/sx of airway compromise by 07/04/2018 STRATEGY TO ACHIEVE GOALS: - Perform purposeful rounding, ensure call light is within reach and provide supervision fo r all OOB activity - Assist patient with repositioning in bed, perform incontinence care if needed and monitor for signs of skin breakdown - Encourage active participation in PT/OT - Perform neuro assessment Qshift and notify MD of any decline - Assist with toileting, encourage fluid intake for bowel and bladder function - Provide altered textures and thickened fluids and ensure patient is sitting upright for a ll oral intake - Full participation in PT session in functional mobility training. - Full participation in ST sessions Outcome: Unchanged IRF Occupational Therapy Plan of Care Treatment Note Summary: Sarthak has been participating in occupational therapy for treatment of decrease d ADL performance, fxl mobility, activity tolerance, safety awareness s/p ischemic CGA, L si ded weakness. Emphasis of session included bathing, dressing, and wound care management. P atient demonstrates progress towards functional goals as evidenced by participation in tx. P t slightly agitated this tx session d/t increased pain in LUE, resulting in increased assist for bathing tasks d/t pain. BLE dressing/wrapping changed and rewrapped today with Coban 2 system and aquacell and ABD pad for wound. Applied moisturizing lotion on BLE (not on wound sites), Calazine lotion for two areas of fungus on RLE. Pt tolerated well. LLE to be rewrap ped every other day, RLE daily. Remaining barriers to discharge and functional limitations i nclude decreased insight into safety and deficits, decreased functional activity tolerance, decreased bed mobility, decreased functional transfers, decreased ability to perform ADLs, d ecreased ability to perform IADLs, decreased ability to perform medication management, lives alone, demonstrating need for 24/7 supervision, not yet able to mobilize at level safe for home discharge and medical status. Edward will benefit from continued therapeutic intervention to address ongoing impairments and increase safety and independence with activities necessary for safe discharge. Refer be low for specific details regarding functional levels. Occupational Therapy Discharge Recommendations are: Recommended discharge disposition: home with assist, long-term facility Post discharge occupational therapy recommendation: will benefit from structured setting, home health Equipment Recommendations: bariatric, commode (3 in 1), long handled sponge, grain oilseed or pasture farm worker, sock aide Planned Interventions:ADL retraining, balance training, bed mobility training, motor coordi nation training, neuromuscular re-education, fine motor coordination training, ROM (Range of Motion), strengthening, transfer training Recommended Frequency: other (see comments) (rehab schedule) Patient Status/Goals: Reflects last filed data and may be from multiple contributors. ADLs Pt washed BLE with use of long handled sponge, vc's for safety with wounds, required assist for thoroughness. Pt also required assist with washing/drying buttocks as well as RUE d/t c /o of increased pain in LUE to wash RUE. CGA in standing and pt using grab bars in front. Bathing, Level of Hammond: moderate assist (50% patient effort), set up required, verb al cues required Assistive Device: grab bars, hand-held shower head, shower chair with back, long-handled sp onge Bathing Assess/Train, Position: sitting, supported standing Bathing Assess/Train, Impairments: muscle tone abnormal, decreased flexibility, ROM decreas ed, sensation decreased, strength decreased, impaired balance, coordination impaired, motor control impaired, postural control impaired, sensory feedback impaired (body habitus) pt donned gown d/t having no clean clothes. Gown set up as clod puller shirt, CGA for adjustm ent in back. Vc's for zena technique, though pt agitated and did not follow instructions, olivia akins was still able to don without assist except for light adjustment in back. UB Dressing, Level of Hammond: set up required, tactile cues required, contact guard a ssist, verbal cues required Assistive Device: none UB Dressing Assess/Train, Position: sitting UB Dressing Assess/Train, Impairments: muscle tone abnormal, decreased flexibility, ROM dec reased, sensation decreased, strength decreased, coordination impaired, motor control impair ed, postural control impaired, sensory feedback impaired Pt declined to wear LB clothing Pt declined grooming tasks this tx session. Functional Endurance Poor, pt c/o of increased LUE pain and slightly agitated throughout Cognitive Pt slightly agitated this tx session, pt states that he wants to be asked what to do rather than told. Pt reports that pain is limiting and results in frustration. Mood/Behavior: agitated, hypoactive (quiet, withdrawn) Orientation: oriented x 4 Bed Mobility 2P Mod A d/t pain and fatigue for rolling R, scooting, and supine to sit. Less assist for s it to supine, though required 2P assist to adjust trunk to midline. Vc's for body positionin g and scooting. Decreased use of LUE d/t c/o pain. Assistive Device: bed rails, HOB elevated, overhead trapeze Roll Right, Level of Hammond: moderate assist (50% patient effort), 2 person assist re quired Scoot/Bridge, Level of Hammond: moderate assist (50% patient effort), 2 person assist required Supine to Sit, Level of Hammond: 1 person + 1 person to manage equipment, set up requi red, verbal cues required, tactile cues required, moderate assist (50% patient effort) Sit to Supine, Level of Hammond: minimal assist (75% patient effort), 1 person + 1 per son to manage equipment, set up required, tactile cues required, verbal cues required Safety Issues: decreased use of arms for pushing/pulling, decreased use of legs for bridgin g/pushing, impaired trunk control for bed mobility Impairments: muscle tone abnormal, decreased flexibility, strength decreased, impaired demi nce, coordination impaired, motor control impaired, postural control impaired, sensory feedb ack impaired, pain Transfers 1P+1P for safety, Min A for bed-chair, sit<>stand from EOB, w/c, and shower chair in walk i n shower. Vc's for pacing, body positioning, and scooting to improve sit<>stand. Pt slightly impulsive d/t agitation and frustration, requiring vc's for safety. Bed-Chair, Level of Hammond: 1 person + 1 person to manage equipment, set up required, verbal cues required, tactile cues required, minimal assist (75% patient effort) Chair-Bed, Level of Hammond: 1 person + 1 person to manage equipment, set up required, verbal cues required, tactile cues required, minimal assist (75% patient effort) [id number], Assistive Device: 2 wheeled walker (FWW), bariatric, wheelchair Sit-Stand, Level of Hammond: minimal assist (75% patient effort), 1 person + 1 person to manage equipment, tactile cues required, verbal cues required, set up required Stand-Sit, Level of Hammond: minimal assist (75% patient effort), set up required, param bal cues required, tactile cues required [id number], Assistive Device: 2 wheeled walker (FWW), bariatric Walk-in shower, Level of Hammond: 1 person + 1 person to manage equipment, set up requ ired, verbal cues required, minimal assist (75% patient effort) Walk-in shower, Assistive Device: 2 wheeled walker (FWW), grab bars, shower chair Safety Issues: balance decreased during turns, sequencing ability decreased, step length de creased, weight-shifting ability decreased Impairments: muscle tone abnormal, ROM decreased, sensation decreased, strength decreased, impaired balance, coordination impaired, motor control impaired, postural control impaired OT Goal Review Date Most Recent Value STG Review Date 06/30/18 at 06/23/2018 0945 LTG Review Date 07/07/18 at 06/23/2018 0945 Grooming Goal Most Recent Value STG Status met at 06/24/2018 0850 STG [place] Level minimum assist (75% patient effort) at 06/23/2018 0945 STG Position sitting in chair at 06/23/2018 0945 STG Adaptive Equipment none at 06/23/2018 0945 LTG Status progressing at 06/26/2018 1050 LTG [place] Level supervised at 06/25/2018 1101 LTG Position sitting in chair at 06/23/2018 0945 LTG Adaptive Equipment none at 06/23/2018 0945 Bathing Goal Most Recent Value STG Status progressing at 06/27/2018 0930 STG [place] Level minimum assist (75% patient effort), set up required, verbal cues r equired at 06/23/2018 0945 STG Adaptive Equpiment grab bars, shower head, detachable, sponge, long handled, tub bench with back at 06/23/2018 0945 STG Position sitting at 06/23/2018 0945 LTG Status progressing at 06/26/2018 1050 LTG [place] Level contact guard assist at 06/23/2018 0945 LTG Adaptive Equpiment grab bars, shower head, detachable, sponge, long handled, tub bench with back at 06/23/2018 0945 LTG Position sitting at 06/23/2018 0945 UB Dressing Goal Most Recent Value STG Status progressing at 06/27/2018 0930 STG [place] Level stand by assist, set up required at 06/23/2018 0945 STG Adaptive Equipment none at 06/23/2018 0945 LTG Status continued at 06/26/2018 1050 LTG [place] Level supervised, set up required at 06/23/2018 0945 LTG Adaptive Equipment none at 06/23/2018 0945 LB Dressing Goal Most Recent Value STG Status progressing at 06/24/2018 0850 STG [place] Level moderate assist (50% patient effort), set up required at 06/23/201845 STG Adaptive Equipment grain oilseed or pasture farm worker, shoe horn, long handled, sock-aid at 06/23/2018 0945 LTG Status progressing at 06/24/2018 0850 LTG [place] Level contact guard assist, set up required at 06/23/2018 0945 LTG Adaptive Equipment grain oilseed or pasture farm worker, shoe horn, long handled, sock-aid at 06/23/2018 0945 Toileting Goal Most Recent Value STG Status progressing at 06/25/2018 1101 STG [place] Level minimum assist (75% patient effort), set up required, verbal cues r equired at 06/23/201845 STG Assistive Device bariatric bedside commode, grab bar at 06/23/2018 0945 LTG Status progressing at 06/25/2018 1101 LTG [place] Level contact guard assist at 06/23/201845 LTG Assistive Device bariatric bedside commode, grab bar at 06/23/2018 0945 Toilet Transfer Goal Most Recent Value STG Status progressing at 06/25/2018 1101 STG [place] Level contact guard assist at 06/23/2018 0945 STG Assistive Device bariatric, commode (3 in 1), grab bars at 06/23/2018 0945 LTG Status progressing at 06/25/2018 1101 LTG [place] Level stand by assist at 06/23/2018 0945 LTG Assistive Device bariatric, commode (3 in 1), grab bars at 06/23/201845 Tub/Shower Transfer Goal Most Recent Value Tub/Shower Type tub/shower combo at 06/23/2018 0945 STG Status progressing at 06/27/2018 0930 STG [place] Level contact guard assist, set up required, verbal cues required at 12/2017 0945 STG Assistive Device bariatric, tub bench, grab bars at 06/23/2018 0945 LTG Status progressing at 06/25/2018 1101 LTG [place] Level stand by assist at 06/23/2018 0945 LTG Assistive Device bariatric, tub bench, grab bars at 06/23/2018 0945 Additional Goals #1 OT Most Recent Value STG Status new, progressing at 06/24/2018 1515 STG Pt will increase automatic L hand during fxl and ADL tasks by requiring Mod vc's at 1515 LTG Status new at 06/24/2018 1515 LTG Pt will increase automatic L hand during fxl and ADL tasks by requiring Min vc's at 1515 Additional Goals #2 OT Most Recent Value LTG Status progressing at 06/27/2018 0930 LTG pt will tolerate lymphedema and wound care management techniques to promote skin integ rity, reduce swelling, and promote overall participation in ADLs. at 06/26/2018 1050 Electronically signed by: Choco Abreu OT, 06/27/2018 12:15 lan of Care - Jeane Reed RN - 06/27/2018 4:47 AM PDTProblem: Patient Care Overview (Adult) Goal: Care Team Goals & Evaluation PROBLEM-RELATED GOALS: 1. Ed will remain free from all falls and injuries through 07/04/18 2. Ed's skin will remain intact and any impairments will show signs of healing by 06/25/18 3. Ed will ambulated with FWW and physical therapy by 06/29/18 4. Ed will have no deterioration in his neuro assessment through 07/04/18 5. Ed will be continent of bowel and bladder and will not have any accidents through 6. Ed will have no s/sx of aspiration through 07/04/18 7. Pt will be Mod I in transfers and amb using bariatric FWW by 07/14/18. 8. Pt will tolerate dysphagia advanced foods and nectar thick liquids with no overt s/sx of airway compromise by 07/04/2018 STRATEGY TO ACHIEVE GOALS: - Perform purposeful rounding, ensure call light is within reach and provide supervision fo r all OOB activity - Assist patient with repositioning in bed, perform incontinence care if needed and monitor for signs of skin breakdown - Encourage active participation in PT/OT - Perform neuro assessment Qshift and notify MD of any decline - Assist with toileting, encourage fluid intake for bowel and bladder function - Provide altered textures and thickened fluids and ensure patient is sitting upright for a ll oral intake - Full participation in PT session in functional mobility training. - Full participation in ST sessions Outcome: Improving Goal Evaluation: pt slept intermittently through noc. Reports LFA pain, Medicated with [place] as needed. Pt removes Bi-pap mask frequently. Speech slurred. Left facial droop, left tongue deviation. L eft finger to nose off. Left sided weakness, LUE 3/5, LLE 4/5. Has wraps to left wrist and B LE. 2+ edema to left hand and BLE. Silva in place, clear chayito urine. Inc of BM at HS. Requi res 2 assist, gait belt and platform walker for ambulation. Pt refuses recommended nectar th ick liqs despite education. Seems to tolerate thin liqs without difficulty. lan of Care - Elsa moffett, Abraham Wilkes, PT - 06/26/2018 5:54 PM PDT Problem: Patient Care Overview (Adult) Goal: Care Team Goals & Evaluation PROBLEM-RELATED GOALS: 1. Ed will remain free from all falls and injuries through 07/04/18 2. Ed's skin will remain intact and any impairments will show signs of healing by 06/25/18 3. Ed will ambulated with FWW and physical therapy by 06/29/18 4. Ed will have no deterioration in his neuro assessment through 07/04/18 5. Ed will be continent of bowel and bladder and will not have any accidents through 6. Ed will have no s/sx of aspiration through 07/04/18 7. Pt will be Mod I in transfers and amb using bariatric FWW by 07/14/18. 8. Pt will tolerate dysphagia advanced foods and nectar thick liquids with no overt s/sx of airway compromise by 07/04/2018 STRATEGY TO ACHIEVE GOALS: - Perform purposeful rounding, ensure call light is within reach and provide supervision fo r all OOB activity - Assist patient with repositioning in bed, perform incontinence care if needed and monitor for signs of skin breakdown - Encourage active participation in PT/OT - Perform neuro assessment Qshift and notify MD of any decline - Assist with toileting, encourage fluid intake for bowel and bladder function - Provide altered textures and thickened fluids and ensure patient is sitting upright for a ll oral intake - Full participation in PT session in functional mobility training. - Full participation in ST sessions Outcome: Unchanged IRF Physical Therapy Plan of Care Treatment Note Summary: Sarthak has been participating in physical therapy for treatment of Impaired bal ance, gait instability, (L) sided neglect, (L) zena paresis who was admitted d/t CVA. 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 Hx of previous C VA affecting (R) side. Patient reports increase in diffuse body pain especially in arms an d legs, reports weakness this afternoon was unable to determine what to attribute it to, con tinues to have complaints of increasing left forearm pain (still awaiting x-ray results). E mphasis of session included Bed mobility training to reduce strain on back and forearm, to i mproved bed mobility technique, to train bed to WC transfers. Patient demonstrates mild pro hong towards functional goals as evidenced by able to manage left arm when transferring bed to WC. Remaining barriers to discharge and functional limitations include decreased insigh t into safety and deficits, decreased functional activity tolerance, decreased bed mobility, decreased functional transfers, decreased functional gait distance, decreased gait velocity , stairs at home, not able to navigate stairs and not yet able to mobilize at level safe for home discharge. Sarthak will benefit from continued therapeutic intervention to address ongoing impairments and increase safety and independence with activities necessary for safe discharge. Refer be low for specific details regarding functional levels. Physical Therapy Discharge Recommendations are: Recommended discharge disposition: home with assist Post discharge physical therapy recommendation: home health Equipment Recommendations: bariatric, 2 wheeled walker (FWW) Planned Interventions: balance training, bed mobility training, gait training, home exerci se program, lumbar stabilization, manual therapy techniques, motor coordination training, st air training, strengthening, ROM (Range of Motion), postural re-education, patient/family ed ucation, neuromuscular re-education, transfer training, wheelchair management/propulsion tra ining Frequency: daily (1-2x/day) Patient Status/Goals: Reflects last filed data and may be from multiple contributors. Bed Mobility Increased time and effort, 2P Mod A due to fatigue, pain, weakness. several reps of latia g, scooting for hygeine due to bowel movement in bed. Pt reports that he wasn't able to co ntrol his bowel because once he starts to urinate into the silva, his bowel kicks in. Assistive Device: bed rails, HOB elevated, overhead trapeze Roll Left, Level of Hammond: moderate assist (50% patient effort), 2 person assist req uired Roll Right, Level of Hammond: moderate assist (50% patient effort), 2 person assist re quired Scoot/Bridge, Level of Hammond: moderate assist (50% patient effort), 2 person assist required Supine to Sit, Level of Hammond: 1 person + 1 person to manage equipment, set up requi red, verbal cues required, tactile cues required, moderate assist (50% patient effort) Sit to Supine, Level of Hammond: not tested Safety Issues: decreased use of arms for pushing/pulling, decreased use of legs for bridgin g/pushing, impaired trunk control for bed mobility Impairments: muscle tone abnormal, decreased flexibility, strength decreased, impaired demi nce, coordination impaired, motor control impaired, postural control impaired, sensory feedb ack impaired, pain Transfers 1P +1P for safety Mod A for bed to chair transfer due to pain and fatigue. Bed-Chair, Level of Hammond: moderate assist (50% patient effort), 1 person + 1 person to manage equipment, set up required, verbal cues required, tactile cues required Chair-Bed, Level of Hammond: not tested Sbs-[id number]-Rif, Assistive Device: (Handhold assist the session) Sit-Stand, Level of Hammond: minimal assist (75% patient effort), 1 person + 1 person to manage equipment, tactile cues required, verbal cues required, set up required Stand-Sit, Level of Hammond: minimal assist (75% patient effort), set up required, param bal cues required, tactile cues required Oai-Ljego-Doj, Assistive Device: 2 wheeled walker (FWW), bariatric Safety Issues: balance decreased during turns, sequencing ability decreased, step length de creased, weight-shifting ability decreased Impairments: muscle tone abnormal, ROM decreased, sensation decreased, strength decreased, impaired balance, coordination impaired, motor control impaired, postural control impaired Therapeutic Exercise Bed mobility training, with emphasis on using momentum to reduce strain on forearms and kianna k x 20 min. PT Goal Review Date Most Recent Value STG Review Date 06/30/18 at 06/23/2018 0915 LTG Review Date 07/14/18 at 06/23/2018 0915 Ekpfjf-Nso-Wboyuv Goal Most Recent Value STG Status continued at 06/26/2018 1749 STG [place] Level supervised at 06/23/2018 0915 STG Assistive Device bed rails, overhead trapeze at 06/23/2018 0915 LTG Status new at 06/23/2018 0915 LTG [place] Level modified independent at 06/23/2018 0915 LTG Assistive Device bed rails, overhead trapeze at 06/23/2018 0915 Lho-Mulnp-Cfg Goal Most Recent Value STG Status met at 06/25/2018 1427 STG [place] Level contact guard assist at 06/23/2018 0915 STG Assistive Device 2 wheeled walker (FWW), bariatric at 06/23/2018 0915 LTG Status continued at 06/26/2018 1749 LTG [place] Level modified independent at 06/23/2018 0915 LTG Assistive Device 2 wheeled walker (FWW), bariatric, 4 wheeled walker (4WW) at 06/23/20 18 0915 Gait Goal Most Recent Value STG Status continued at 06/26/2018 1206 STG [place] Level contact guard assist at 06/23/2018 0915 STG Assistive Device bariatric, 2 wheeled walker (FWW) at 06/23/2018 0915 STG Comments 50' at 06/23/2018 0915 LTG Status new at 06/23/2018 0915 LTG [place] Level modified independent at 06/23/2018 0915 LTG Assistive Device 2 wheeled walker (FWW), bariatric, 4 wheeled walker (4WW) at 06/23/20 18 0915 LTG Distance (feet) 50' x 3 at 06/23/2018 0915 LTG Comments ramps at 06/23/2018 0915 Wheelchair Goal Most Recent Value STG Status new, progressing at 06/26/2018 1206 STG Pt will propel a manual wheelchair 50 feet with Min A to improve his independence at 1 1206 LTG Status new at 06/26/2018 1206 LTG Pt will propel a manual wheelchair 100 feet with Sup to improve his independence at 1206 Electronically signed by: Abraham Carvalho, PT, 06/26/2018 17:50 lan of Care - Barb Rios RN - 06/26/2018 4:13 PM PDTProblem: Patient Care Overview (Adult) Goal: Care Team Goals & Evaluation PROBLEM-RELATED GOALS: 1. Ed will remain free from all falls and injuries through 07/04/18 2. Ed's skin will remain intact and any impairments will show signs of healing by 06/25/18 3. Ed will ambulated with FWW and physical therapy by 06/29/18 4. Ed will have no deterioration in his neuro assessment through 07/04/18 5. Ed will be continent of bowel and bladder and will not have any accidents through 6. Ed will have no s/sx of aspiration through 07/04/18 7. Pt will be Mod I in transfers and amb using bariatric FWW by 07/14/18. 8. Pt will tolerate dysphagia advanced foods and nectar thick liquids with no overt s/sx of airway compromise by 07/04/2018 STRATEGY TO ACHIEVE GOALS: - Perform purposeful rounding, ensure call light is within reach and provide supervision fo r all OOB activity - Assist patient with repositioning in bed, perform incontinence care if needed and monitor for signs of skin breakdown - Encourage active participation in PT/OT - Perform neuro assessment Qshift and notify MD of any decline - Assist with toileting, encourage fluid intake for bowel and bladder function - Provide altered textures and thickened fluids and ensure patient is sitting upright for a ll oral intake - Full participation in PT session in functional mobility training. - Full participation in ST sessions Outcome: Improving Goal Evaluation: Pt alert and oriented. Slurred speech. LT facial droop. Lt tongue deviation. Up w/ 2 perso n moderate assist w/ fww. Tolerating dysphagia chopped diet. LBM 06/25. Silva draining chayito urine. HR irr. Lungs clear on Bi-Pap at night. B/L legs wrapped w/ lymphedema wraps. Trace e liyah to B/L legs and 3 + edema to LT hand. MS 4/5 to all extremities. Moderate director quality systems. Finger to nose off on the LT. lan of Care - Yasmine Harvey, OT - 06/26/2018 4:05 PM PDTFormatting of this note might be different from th e original. Problem: Patient Care Overview (Adult) Goal: Care Team Goals & Evaluation PROBLEM-RELATED GOALS: 1. Ed will remain free from all falls and injuries through 07/04/18 2. Ed's skin will remain intact and any impairments will show signs of healing by 06/25/18 3. Ed will ambulated with FWW and physical therapy by 06/29/18 4. Ed will have no deterioration in his neuro assessment through 07/04/18 5. Ed will be continent of bowel and bladder and will not have any accidents through 6. Ed will have no s/sx of aspiration through 07/04/18 7. Pt will be Mod I in transfers and amb using bariatric FWW by 07/14/18. 8. Pt will tolerate dysphagia advanced foods and nectar thick liquids with no overt s/sx of airway compromise by 07/04/2018 STRATEGY TO ACHIEVE GOALS: - Perform purposeful rounding, ensure call light is within reach and provide supervision fo r all OOB activity - Assist patient with repositioning in bed, perform incontinence care if needed and monitor for signs of skin breakdown - Encourage active participation in PT/OT - Perform neuro assessment Qshift and notify MD of any decline - Assist with toileting, encourage fluid intake for bowel and bladder function - Provide altered textures and thickened fluids and ensure patient is sitting upright for a ll oral intake - Full participation in PT session in functional mobility training. - Full participation in ST sessions IRF Occupational Therapy Plan of Care Treatment Note Summary: Sarthak has been participating in occupational therapy for treatment of decrease d ADL performance, fxl mobility, activity tolerance, safety awareness s/p ischemic CGA, L si ded weakness. Emphasis of session included UE strengthening of LUE with light AROM with sta bilization to wrist to facilitate edema reduction. Pt reported not feeling well and having t oo much LUE wrist pain this afternoon and requesting to forgo t/fs this afternoon. Remainin g barriers to discharge and functional limitations include decreased functional activity geovani erance, decreased bed mobility, decreased functional transfers, decreased ability to perform ADLs, decreased ability to perform IADLs, decreased ability to perform medication managemen t, lives alone and not yet able to mobilize at level safe for home discharge. Edward will benefit from continued therapeutic intervention to address ongoing impairments and increase safety and independence with activities necessary for safe discharge. Refer be low for specific details regarding functional levels. Occupational Therapy Discharge Recommendations are: Recommended discharge disposition: home with assist, long-term facility Post discharge occupational therapy recommendation: will benefit from structured setting, home health Equipment Recommendations: bariatric, commode (3 in 1), long handled sponge, grain oilseed or pasture farm worker, sock aide Planned Interventions:ADL retraining, balance training, bed mobility training, motor coordi nation training, neuromuscular re-education, fine motor coordination training, ROM (Range of Motion), strengthening, transfer training Recommended Frequency: other (see comments) (rehab schedule) Patient Status/Goals: Reflects last filed data and may be from multiple contributors. Therapeutic Exercise BUE shoulder elevation/depression scapular protraction/retraction. AROM of LUE elbow and ge ntle/light digit flex/ext to promote fluid reduction while OT stabilized wrist 20x's 2 sets. RUE performed 12x3 sets utilizing 5lb dumbbell weights in all planes of motion. all activi ties performed in sitting up in bed. Shoulder exercises: bilateral Elbow exercises: bilateral Repetitions/ Resistance: RUE-5lb dumbbells LUE-AROM with wrist stabilization Hand exercises: finger flexion, finger extension Type of exercise: active assistive Repetitions/ Resistance: gentle with wrist stabilization applied. OT Goal Review Date Most Recent Value STG Review Date 06/30/18 at 06/23/2018 0945 LTG Review Date 07/07/18 at 06/23/2018 0945 Grooming Goal Most Recent Value STG Status met at 06/24/2018 0850 STG [place] Level minimum assist (75% patient effort) at 06/23/2018 0945 STG Position sitting in chair at 06/23/2018 0945 STG Adaptive Equipment none at 06/23/2018 0945 LTG Status progressing at 06/26/2018 1050 LTG [place] Level supervised at 06/25/2018 1101 LTG Position sitting in chair at 06/23/2018 0945 LTG Adaptive Equipment none at 06/23/2018 0945 Bathing Goal Most Recent Value STG Status progressing at 06/26/2018 1050 STG [place] Level minimum assist (75% patient effort), set up required, verbal cues r equired at 06/23/2018 0945 STG Adaptive Equpiment grab bars, shower head, detachable, sponge, long handled, tub bench with back at 06/23/2018 0945 STG Position sitting at 06/23/2018 0945 LTG Status progressing at 06/26/2018 1050 LTG [place] Level contact guard assist at 06/23/2018 0945 LTG Adaptive Equpiment grab bars, shower head, detachable, sponge, long handled, tub bench with back at 06/23/2018 0945 LTG Position sitting at 06/23/2018 0945 UB Dressing Goal Most Recent Value STG Status progressing at 06/26/2018 1050 STG [place] Level stand by assist, set up required at 06/23/2018 0945 STG Adaptive Equipment none at 06/23/2018 0945 LTG Status continued at 06/26/2018 1050 LTG [place] Level supervised, set up required at 06/23/2018 0945 LTG Adaptive Equipment none at 06/23/2018 0945 LB Dressing Goal Most Recent Value STG Status progressing at 06/24/2018 0850 STG [place] Level moderate assist (50% patient effort), set up required at 06/23/2018 0945 STG Adaptive Equipment grain oilseed or pasture farm worker, shoe horn, long handled, sock-aid at 06/23/2018 0945 LTG Status progressing at 06/24/2018 0850 LTG [place] Level contact guard assist, set up required at 06/23/2018 0945 LTG Adaptive Equipment grain oilseed or pasture farm worker, shoe horn, long handled, sock-aid at 06/23/2018 0945 Toileting Goal Most Recent Value STG Status progressing at 06/25/2018 1101 STG [place] Level minimum assist (75% patient effort), set up required, verbal cues r equired at 06/23/2018 0945 STG Assistive Device bariatric bedside commode, grab bar at 06/23/2018 0945 LTG Status progressing at 06/25/2018 1101 LTG [place] Level contact guard assist at 06/23/2018 0945 LTG Assistive Device bariatric bedside commode, grab bar at 06/23/2018 0945 Toilet Transfer Goal Most Recent Value STG Status progressing at 06/25/2018 1101 STG [place] Level contact guard assist at 06/23/2018 0945 STG Assistive Device bariatric, commode (3 in 1), grab bars at 06/23/2018 0945 LTG Status progressing at 06/25/2018 1101 LTG [place] Level stand by assist at 06/23/2018 0945 LTG Assistive Device bariatric, commode (3 in 1), grab bars at 06/23/2018 0945 Tub/Shower Transfer Goal Most Recent Value Tub/Shower Type tub/shower combo at 06/23/2018 0945 STG Status progressing at 06/25/2018 1101 STG [place] Level contact guard assist, set up required, verbal cues required at 12/2017 0945 STG Assistive Device bariatric, tub bench, grab bars at 06/23/2018 0945 LTG Status progressing at 06/25/2018 1101 LTG [place] Level stand by assist at 06/23/2018 0945 LTG Assistive Device bariatric, tub bench, grab bars at 06/23/2018 0945 Additional Goals #1 OT Most Recent Value STG Status new, progressing at 06/24/2018 1515 STG Pt will increase automatic L hand during fxl and ADL tasks by requiring Mod vc's at 1515 LTG Status new at 06/24/2018 1515 LTG Pt will increase automatic L hand during fxl and ADL tasks by requiring Min vc's at 1515 Additional Goals #2 OT Most Recent Value LTG Status new, progressing at 06/26/2018 1050 LTG pt will tolerate lymphedema and wound care management techniques to promote skin integ rity, reduce swelling, and promote overall participation in ADLs. at 06/26/2018 1050 Electronically signed by: Yasmine Alvarez OT, 06/26/2018 17:07 lan of Care - Abraham Duran, PT - 06/26/2018 12:16 PM PDT Problem: Patient Care Overview (Adult) Goal: Care Team Goals & Evaluation PROBLEM-RELATED GOALS: 1. Ed will remain free from all falls and injuries through 07/04/18 2. Ed's skin will remain intact and any impairments will show signs of healing by 06/25/18 3. Ed will ambulated with FWW and physical therapy by 06/29/18 4. Ed will have no deterioration in his neuro assessment through 07/04/18 5. Ed will be continent of bowel and bladder and will not have any accidents through 6. Ed will have no s/sx of aspiration through 07/04/18 7. Pt will be Mod I in transfers and amb using bariatric FWW by 07/14/18. 8. Pt will tolerate dysphagia advanced foods and nectar thick liquids with no overt s/sx of airway compromise by 07/04/2018 STRATEGY TO ACHIEVE GOALS: - Perform purposeful rounding, ensure call light is within reach and provide supervision fo r all OOB activity - Assist patient with repositioning in bed, perform incontinence care if needed and monitor for signs of skin breakdown - Encourage active participation in PT/OT - Perform neuro assessment Qshift and notify MD of any decline - Assist with toileting, encourage fluid intake for bowel and bladder function - Provide altered textures and thickened fluids and ensure patient is sitting upright for a ll oral intake - Full participation in PT session in functional mobility training. - Full participation in ST sessions Outcome: Improving IRF Physical Therapy Plan of Care Treatment Note Summary: Sarthak has been participating in physical therapy for treatment of Impaired bal ance, gait instability, (L) sided neglect, (L) zena paresis who was admitted d/t CVA. 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 Hx of previous C VA affecting (R) side.. Emphasis of session included lower extremity strengthening, right upper extremity strengthening and active range of motion, wheelchair mobility, activity tole jenifer and participation. Patient demonstrates progress towards functional goals as evidence d by able to perform mild increase in intensity of lower extremity strengthening without com plaints of fatigue or discomfort. Remaining barriers to discharge and functional limitation s include decreased insight into safety and deficits, decreased functional activity toleranc e, decreased bed mobility, decreased functional transfers, decreased functional gait distanc e, decreased gait velocity, stairs at home and not yet able to mobilize at level safe for ho me discharge. Edward will benefit from continued therapeutic intervention to address ongoing impairments and increase safety and independence with activities necessary for safe discharge. Refer be low for specific details regarding functional levels. Physical Therapy Discharge Recommendations are: Recommended discharge disposition: home with assist Post discharge physical therapy recommendation: home health Equipment Recommendations: bariatric, 2 wheeled walker (FWW) Planned Interventions: balance training, bed mobility training, gait training, home exerci se program, lumbar stabilization, manual therapy techniques, motor coordination training, st air training, strengthening, ROM (Range of Motion), postural re-education, patient/family ed ucation, neuromuscular re-education, transfer training, wheelchair management/propulsion tra ining Frequency: daily (1-2x/day) Patient Status/Goals: Reflects last filed data and may be from multiple contributors. Wheelchair Mobility Verbal cues for using legs and advancing left side, verbal cues and tactile cues for hand p lacement and weight shift Type: other (see comments) (Bariatric) Cushion: None Surface: indoor, tile Distance (feet): 75 Speed: Slow Level of Hammond: moderate assist (50% patient effort) Propulsion Technique: bilateral UE's, bilateral LE's Components: brakes, arm rests Components Management Assistance: minimum assist/contact guard assist (75% patients effort) Therapeutic Exercise Red Theraband right UE multiplanes/multidirection 3 x 10 reps. Sci fit hills, level I.0 x 12 min for coordination in lower extremity strengthening Seated exercises: bilateral, ankle pumps, marching, long arc quads (4 lbs ankle weights) Repetitions: Several reps with rest breaks for 25 min. Other exercises (description): heel raises, toe raises 2 x 10 Functional Endurance Poor, patient with complaints of forearm pain. ROM L LE ROM: Grossly WFL for body habitus type R LE ROM: Grossly WFL for body habitus type Strength L LE Strength: hip flexion 2+/5, knee ext 3+/5, DF 3+/5 R LE Strength: grossly graded 4-/5 PT Goal Review Date Most Recent Value STG Review Date 06/30/18 at 06/23/2018 0915 LTG Review Date 07/14/18 at 06/23/2018 0915 [id number] Goal Most Recent Value STG Status continued at 06/25/2018 1427 STG Hammond Level supervised at 06/23/2018 0915 STG Assistive Device bed rails, overhead trapeze at 06/23/2018 0915 LTG Status new at 06/23/2018 0915 LTG Hammond Level modified independent at 06/23/2018 0915 LTG Assistive Device bed rails, overhead trapeze at 06/23/2018 0915 [id number]-Cff Goal Most Recent Value STG Status met at 06/25/2018 1427 STG Hammond Level contact guard assist at 06/23/2018 0915 STG Assistive Device 2 wheeled walker (FWW), bariatric at 06/23/2018 0915 LTG Status continued at 06/26/2018 1206 LTG Hammond Level modified independent at 06/23/2018 0915 LTG Assistive Device 2 wheeled walker (FWW), bariatric, 4 wheeled walker (4WW) at 06/23/20 18 0915 Gait Goal Most Recent Value STG Status continued at 06/26/2018 1206 STG Hammond Level contact guard assist at 06/23/2018 0915 STG Assistive Device bariatric, 2 wheeled walker (FWW) at 06/23/2018 0915 STG Comments 50' at 06/23/2018 0915 LTG Status new at 06/23/2018 0915 LTG Hammond Level modified independent at 06/23/2018 0915 LTG Assistive Device 2 wheeled walker (FWW), bariatric, 4 wheeled walker (4WW) at 06/23/20 18 0915 LTG Distance (feet) 50' x 3 at 06/23/2018 0915 LTG Comments ramps at 06/23/2018 0915 Wheelchair Goal Most Recent Value STG Status new, progressing at 06/26/2018 1206 STG Pt will propel a manual wheelchair 50 feet with Min A to improve his independence at 1 1206 LTG Status new at 06/26/2018 1206 LTG Pt will propel a manual wheelchair 100 feet with Sup to improve his independence at 1206 Electronically signed by: Abraham Carvalho, PT, 06/26/2018 12:16 lan of Care - Lay den, Yasmine Wilkes, OT - 06/26/2018 10:50 AM PDT Problem: Patient Care Overview (Adult) Goal: Care Team Goals & Evaluation PROBLEM-RELATED GOALS: 1. Ed will remain free from all falls and injuries through 07/04/18 2. Ed's skin will remain intact and any impairments will show signs of healing by 06/25/18 3. Ed will ambulated with FWW and physical therapy by 06/29/18 4. Ed will have no deterioration in his neuro assessment through 07/04/18 5. Ed will be continent of bowel and bladder and will not have any accidents through 6. Ed will have no s/sx of aspiration through 07/04/18 7. Pt will be Mod I in transfers and amb using bariatric FWW by 07/14/18. 8. Pt will tolerate dysphagia advanced foods and nectar thick liquids with no overt s/sx of airway compromise by 07/04/2018 STRATEGY TO ACHIEVE GOALS: - Perform purposeful rounding, ensure call light is within reach and provide supervision fo r all OOB activity - Assist patient with repositioning in bed, perform incontinence care if needed and monitor for signs of skin breakdown - Encourage active participation in PT/OT - Perform neuro assessment Qshift and notify MD of any decline - Assist with toileting, encourage fluid intake for bowel and bladder function - Provide altered textures and thickened fluids and ensure patient is sitting upright for a ll oral intake - Full participation in PT session in functional mobility training. - Full participation in ST sessions Outcome: Improving IRF Occupational Therapy Plan of Care Treatment Note Summary: Sarthak has been participating in occupational therapy for treatment of decrease d ADL performance, fxl mobility, activity tolerance, safety awareness s/p ischemic CGA, L si ded weakness. Emphasis of session included Session included sponge bath, UB dressing, groom ing, bed mobility, functional t/fs, removal of coban 2 system of RLE for daily wound change. LLE coban 2 system okay for every other day at this time. Nursing in to assess skin integri ty and wound. OT cleansed area, disinfected, applied aquacell and ABD pad to affected areas. calazime lotion applied for skin integrity ( not on wound sites) then rewrapped with coban 2 system. Noted that LUE swollen and sore this day. This OT recommending discontinued use of wrist cock-up; OT applied light digit wraps and tubi-photographic process screen maker. Patient demonstrates progress t owards functional goals as evidenced by progressing with sponge bathing tasks requiring less assist.. Remaining barriers to discharge and functional limitations include decreased insi ght into safety and deficits, decreased functional activity tolerance, decreased bed mobilit y, decreased functional transfers, decreased ability to perform ADLs, decreased ability to p erform IADLs, decreased ability to perform medication management, lives alone, demonstrating need for 24/7 supervision, unsafe discharge disposition, not yet able to mobilize at level safe for home discharge. Edward will benefit from continued therapeutic intervention to address ongoing impairments and increase safety and independence with activities necessary for safe discharge. Refer be low for specific details regarding functional levels. Occupational Therapy Discharge Recommendations are: Recommended discharge disposition: home with assist, long-term facility Post discharge occupational therapy recommendation: will benefit from structured setting, home health Equipment Recommendations: bariatric, commode (3 in 1), long handled sponge, grain oilseed or pasture farm worker, sock aide Planned Interventions:ADL retraining, balance training, bed mobility training, motor coordi nation training, neuromuscular re-education, fine motor coordination training, ROM (Range of Motion), strengthening, transfer training Recommended Frequency: other (see comments) (rehab schedule) Patient Status/Goals: Reflects last filed data and may be from multiple contributors. ADLs sponge bath this day. assist for BLEs d/t woundcare and coban wraps. assist with buttocks a s well. Bathing, Level of Hammond: 1 person + 1 person to manage equipment, moderate assist (5 0% patient effort) Assistive Device: grab bars, hand-held shower head, shower chair with back Bathing Assess/Train, Position: sitting, supported standing Bathing Assess/Train, Impairments: muscle tone abnormal, decreased flexibility, ROM decreas ed, sensation decreased, strength decreased, impaired balance, coordination impaired, motor control impaired, postural control impaired, sensory feedback impaired (body habitus) increased time/effort for donning shirt with v/c for zena technique. UB Dressing, Level of Hammond: set up required, tactile cues required, contact guard a ssist Assistive Device: none UB Dressing Assess/Train, Position: sitting UB Dressing Assess/Train, Impairments: muscle tone abnormal, decreased flexibility, ROM dec reased, sensation decreased, strength decreased, coordination impaired, motor control impair ed, postural control impaired, sensory feedback impaired declining to wear LE garments. LB Dressing, Level of Hammond: 2 person assist required, verbal cues required, tactile cues required, set up required, moderate assist (50% patient effort) Assistive Device: grain oilseed or pasture farm worker LB Dressing Assess/Train, Position: sitting, supported standing LB Dressing Assess/Train, Impairments: muscle tone abnormal, decreased flexibility, ROM dec reased, sensation decreased, strength decreased, impaired balance, coordination impaired, mo tor control impaired, postural control impaired, sensory feedback impaired min assist to help with squeezing toothpaste. Grooming, Level of Hammond: minimal assist (75% patient effort), set up required Assistive Device: none Grooming Assess/Train, Position: sitting Grooming Assess/Train, Impairments: ROM decreased, sensation decreased, strength decreased, postural control impaired, motor control impaired, coordination impaired, sensory feedback impaired Bed Mobility increased time/effort and use of bed features. Assistive Device: bed rails, HOB elevated, overhead trapeze Roll Right, Level of Hammond: contact guard assist, set up required, verbal cues requi red, tactile cues required Scoot/Bridge, Level of Hammond: verbal cues required, tactile cues required, contact g uard assist Supine to Sit, Level of Hammond: contact guard assist, set up required, verbal cues re quired, tactile cues required Sit to Supine, Level of Hammond: not tested Safety Issues: decreased use of arms for pushing/pulling, decreased use of legs for bridgin g/pushing, impaired trunk control for bed mobility Impairments: muscle tone abnormal, decreased flexibility, strength decreased, impaired demi nce, coordination impaired, motor control impaired, postural control impaired, sensory feedb ack impaired, pain Transfers +1 for generalized safety. pt requiring increased time/effort and due to LUE wrist (swollen and dififculty using) min assist for t/f safety. Bed-Chair, Level of Hammond: minimal assist (75% patient effort), 1 person + 1 person to manage equipment Chair-Bed, Level of Hammond: minimal assist (75% patient effort), 1 person + 1 person to manage equipment [id number], Assistive Device: 2 wheeled walker (FWW), bariatric, wheelchair Sit-Stand, Level of Hammond: minimal assist (75% patient effort), 1 person + 1 person to manage equipment, tactile cues required, verbal cues required, set up required Stand-Sit, Level of Hammond: minimal assist (75% patient effort), set up required, param bal cues required, tactile cues required [id number], Assistive Device: 2 wheeled walker (FWW), bariatric Safety Issues: balance decreased during turns, sequencing ability decreased, step length de creased, weight-shifting ability decreased Impairments: muscle tone abnormal, ROM decreased, sensation decreased, strength decreased, impaired balance, coordination impaired, motor control impaired, postural control impaired OT Goal Review Date Most Recent Value STG Review Date 06/30/18 at 06/23/2018 0945 LTG Review Date 07/07/18 at 06/23/2018 0945 Grooming Goal Most Recent Value STG Status met at 06/24/2018 0850 STG Hammond Level minimum assist (75% patient effort) at 06/23/2018 0945 STG Position sitting in chair at 06/23/2018 0945 STG Adaptive Equipment none at 06/23/2018 0945 LTG Status progressing at 06/26/2018 1050 LTG Hammond Level supervised at 06/25/2018 1101 LTG Position sitting in chair at 06/23/2018 0945 LTG Adaptive Equipment none at 06/23/2018 0945 Bathing Goal Most Recent Value STG Status progressing at 06/26/2018 1050 STG Hammond Level minimum assist (75% patient effort), set up required, verbal cues r equired at 06/23/2018 0945 STG Adaptive Equpiment grab bars, shower head, detachable, sponge, long handled, tub bench with back at 06/23/2018 0945 STG Position sitting at 06/23/2018 0945 LTG Status progressing at 06/26/2018 1050 LTG Hammond Level contact guard assist at 06/23/2018 0945 LTG Adaptive Equpiment grab bars, shower head, detachable, sponge, long handled, tub bench with back at 06/23/2018 0945 LTG Position sitting at 06/23/2018 0945 UB Dressing Goal Most Recent Value STG Status progressing at 06/26/2018 1050 STG Hammond Level stand by assist, set up required at 06/23/2018 0945 STG Adaptive Equipment none at 06/23/2018 0945 LTG Status continued at 06/26/2018 1050 LTG Hammond Level supervised, set up required at 06/23/2018 0945 LTG Adaptive Equipment none at 06/23/2018 0945 LB Dressing Goal Most Recent Value STG Status progressing at 06/24/2018 0850 STG Hammond Level moderate assist (50% patient effort), set up required at 06/23/2018 0945 STG Adaptive Equipment grain oilseed or pasture farm worker, shoe horn, long handled, sock-aid at 06/23/2018 0945 LTG Status progressing at 06/24/2018 0850 LTG Hammond Level contact guard assist, set up required at 06/23/2018 0945 LTG Adaptive Equipment grain oilseed or pasture farm worker, shoe horn, long handled, sock-aid at 06/23/2018 0945 Toileting Goal Most Recent Value STG Status progressing at 06/25/2018 1101 STG Hammond Level minimum assist (75% patient effort), set up required, verbal cues r equired at 06/23/2018 0945 STG Assistive Device bariatric bedside commode, grab bar at 06/23/2018 0945 LTG Status progressing at 06/25/2018 1101 LTG Hammond Level contact guard assist at 06/23/2018 0945 LTG Assistive Device bariatric bedside commode, grab bar at 06/23/2018 0945 Toilet Transfer Goal Most Recent Value STG Status progressing at 06/25/2018 1101 STG Hammond Level contact guard assist at 06/23/2018 0945 STG Assistive Device bariatric, commode (3 in 1), grab bars at 06/23/2018 0945 LTG Status progressing at 06/25/2018 1101 LTG Hammond Level stand by assist at 06/23/2018 0945 LTG Assistive Device bariatric, commode (3 in 1), grab bars at 06/23/2018 0945 Tub/Shower Transfer Goal Most Recent Value Tub/Shower Type tub/shower combo at 06/23/2018 0945 STG Status progressing at 06/25/2018 1101 STG Hammond Level contact guard assist, set up required, verbal cues required at 12/2017 0945 STG Assistive Device bariatric, tub bench, grab bars at 06/23/2018 0945 LTG Status progressing at 06/25/2018 1101 LTG Hammond Level stand by assist at 06/23/2018 0945 LTG Assistive Device bariatric, tub bench, grab bars at 06/23/2018 0945 Additional Goals #1 OT Most Recent Value STG Status new, progressing at 06/24/2018 1515 STG Pt will increase automatic L hand during fxl and ADL tasks by requiring Mod vc's at 1515 LTG Status new at 06/24/2018 1515 LTG Pt will increase automatic L hand during fxl and ADL tasks by requiring Min vc's at 1515 Additional Goals #2 OT Most Recent Value LTG Status new, progressing at 06/26/2018 1050 LTG pt will tolerate lymphedema and wound care management techniques to promote skin integ rity, reduce swelling, and promote overall participation in ADLs. at 06/26/2018 1050 Electronically signed by: Yasmine Alvarez OT, 06/26/2018 12:07 lan of Care - Yessy Meza RN - 06/26/2018 4:34 AM PDTProblem: Patient Care Overview (Adult) Goal: Care Team Goals & Evaluation PROBLEM-RELATED GOALS: 1. Ed will remain free from all falls and injuries through 07/04/18 2. Ed's skin will remain intact and any impairments will show signs of healing by 06/25/18 3. Ed will ambulated with FWW and physical therapy by 06/29/18 4. Ed will have no deterioration in his neuro assessment through 07/04/18 5. Ed will be continent of bowel and bladder and will not have any accidents through 6. Ed will have no s/sx of aspiration through 07/04/18 7. Pt will be Mod I in transfers and amb using bariatric FWW by 07/14/18. 8. Pt will tolerate dysphagia advanced foods and nectar thick liquids with no overt s/sx of airway compromise by 07/04/2018 STRATEGY TO ACHIEVE GOALS: - Perform purposeful rounding, ensure call light is within reach and provide supervision fo r all OOB activity - Assist patient with repositioning in bed, perform incontinence care if needed and monitor for signs of skin breakdown - Encourage active participation in PT/OT - Perform neuro assessment Qshift and notify MD of any decline - Assist with toileting, encourage fluid intake for bowel and bladder function - Provide altered textures and thickened fluids and ensure patient is sitting upright for a ll oral intake - Full participation in PT session in functional mobility training. - Full participation in ST sessions Outcome: Improving Goal Evaluation: slept well with bipap inplace, silva draining chayito urine with good urine output, neuros stable, ms lue 4/5,lle 4/5. calls appropriately lan of Care - Oriana Hogue RN - 06/25/2018 4:19 PM PDTProblem: Patient Care Overview (Adult) Goal: Care Team Goals & Evaluation PROBLEM-RELATED GOALS: 1. Ed will remain free from all falls and injuries through 07/04/18 2. Ed's skin will remain intact and any impairments will show signs of healing by 06/25/18 3. Ed will ambulated with FWW and physical therapy by 06/29/18 4. Ed will have no deterioration in his neuro assessment through 07/04/18 5. Ed will be continent of bowel and bladder and will not have any accidents through 6. Ed will have no s/sx of aspiration through 07/04/18 7. Pt will be Mod I in transfers and amb using bariatric FWW by 07/14/18. 8. Pt will tolerate dysphagia advanced foods and nectar thick liquids with no overt s/sx of airway compromise by 07/04/2018 STRATEGY TO ACHIEVE GOALS: - Perform purposeful rounding, ensure call light is within reach and provide supervision fo r all OOB activity - Assist patient with repositioning in bed, perform incontinence care if needed and monitor for signs of skin breakdown - Encourage active participation in PT/OT - Perform neuro assessment Qshift and notify MD of any decline - Assist with toileting, encourage fluid intake for bowel and bladder function - Provide altered textures and thickened fluids and ensure patient is sitting upright for a ll oral intake - Full participation in PT session in functional mobility training. - Full participation in ST sessions Outcome: Improving Goal Evaluation: Ed is alert & oriented, with left facial droop, left tongue deviati on and left sided weakness 4/5 with moderate director quality systems, & dorsi/plantar on left side. HR irregu lar, LS diminished on RA, BT active, BM today. Silva in place collecting adequate amount of clear, yellow urine. Chronic numbness to BLE. Trace edema to BLE, Leg wraps changed by OT . 2 person assist with gate belt and FWW. Blood glucose 131/138/128 , Davy pike MD notif ied and orders changed. Refusing thickened liquids, using chin tuck to swallow, coughing aquilino quently with meals. lan of Care - Presleynikolaitoño Abraham Katrin, PT - 06/25/2018 2:27 PM PDTFormatting of this note might be different f rom the original. Problem: Patient Care Overview (Adult) Goal: Care Team Goals & Evaluation PROBLEM-RELATED GOALS: 1. Ed will remain free from all falls and injuries through 07/04/18 2. Ed's skin will remain intact and any impairments will show signs of healing by 06/25/18 3. Ed will ambulated with FWW and physical therapy by 06/29/18 4. Ed will have no deterioration in his neuro assessment through 07/04/18 5. Ed will be continent of bowel and bladder and will not have any accidents through 6. Ed will have no s/sx of aspiration through 07/04/18 7. Pt will be Mod I in transfers and amb using bariatric FWW by 07/14/18. 8. Pt will tolerate dysphagia advanced foods and nectar thick liquids with no overt s/sx of airway compromise by 07/04/2018 STRATEGY TO ACHIEVE GOALS: - Perform purposeful rounding, ensure call light is within reach and provide supervision fo r all OOB activity - Assist patient with repositioning in bed, perform incontinence care if needed and monitor for signs of skin breakdown - Encourage active participation in PT/OT - Perform neuro assessment Qshift and notify MD of any decline - Assist with toileting, encourage fluid intake for bowel and bladder function - Provide altered textures and thickened fluids and ensure patient is sitting upright for a ll oral intake - Full participation in PT session in functional mobility training. - Full participation in ST sessions Outcome: Improving IRF Physical Therapy Plan of Care Treatment Note Summary: Sarthak has been participating in physical therapy for treatment of Impaired bal ance, gait instability, (L) sided neglect, (L) zena paresis who was admitted d/t CVA. 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 Hx of previous C VA affecting (R) side.. Emphasis of session included construction of left wrist splint for support due to patient with increasing pain with activity and weightbearing, lower extremit y and upper extremity active range of motion and strengthening exercises, wheelchair mobilit y. Patient demonstrates progress towards functional goals as evidenced by patient able to t olerate extended and increase in intensity of lower extremity exercises, able to be fitted f or left forearm brace and patient indicated improved suport. Remaining barriers to discharg e and functional limitations include decreased insight into safety and deficits, decreased f unctional activity tolerance, decreased bed mobility, decreased functional transfers, decrea sed functional gait distance, decreased gait velocity and not yet able to mobilize at level safe for home discharge. Edward will benefit from continued therapeutic intervention to address ongoing impairments and increase safety and independence with activities necessary for safe discharge. Refer be low for specific details regarding functional levels. Physical Therapy Discharge Recommendations are: Recommended discharge disposition: home with assist Post discharge physical therapy recommendation: home health Equipment Recommendations: bariatric, 2 wheeled walker (FWW) Planned Interventions: balance training, bed mobility training, gait training, home exerci se program, lumbar stabilization, manual therapy techniques, motor coordination training, st air training, strengthening, ROM (Range of Motion), postural re-education, patient/family ed ucation, neuromuscular re-education, transfer training, wheelchair management/propulsion tra ining Frequency: daily (1-2x/day) Patient Status/Goals: Reflects last filed data and may be from multiple contributors. Bed Mobility Verbal cues for not holding breath while performing bed mobility, patient required seated r est breaks between activities. Assistive Device: bed rails, HOB elevated, overhead trapeze Roll Left, Level of Hammond: stand by assist, verbal cues required Roll Right, Level of Hammond: stand by assist, verbal cues required Scoot/Bridge, Level of Hammond: verbal cues required, tactile cues required, contact g uard assist, set up required Supine to Sit, Level of Hammond: contact guard assist, set up required, verbal cues re quired, tactile cues required Sit to Supine, Level of Hammond: not tested Safety Issues: decreased use of arms for pushing/pulling, decreased use of legs for bridgin g/pushing, impaired trunk control for bed mobility Impairments: muscle tone abnormal, decreased flexibility, strength decreased, impaired demi nce, coordination impaired, motor control impaired, postural control impaired, sensory feedb ack impaired, pain Transfers 1 person contact guard stand pivot transfer from elevated bed to wheelchair. Patient fabby strates much better balance going to his right due to left-sided neglect. Bed-Chair, Level of Hammond: contact guard assist Chair-Bed, Level of Hammond: contact guard assist [id number], Assistive Device: (Handhold assist the session) Sit-Stand, Level of Hammond: minimal assist (75% patient effort), 1 person + 1 person to manage equipment, tactile cues required, verbal cues required, set up required Stand-Sit, Level of Hammond: minimal assist (75% patient effort), set up required, param bal cues required, tactile cues required Hck-Saijh-Eni, Assistive Device: 2 wheeled walker (FWW), bariatric Safety Issues: balance decreased during turns, sequencing ability decreased, step length de creased, weight-shifting ability decreased Impairments: muscle tone abnormal, ROM decreased, sensation decreased, strength decreased, impaired balance, coordination impaired, motor control impaired, postural control impaired Therapeutic Exercise Don left wrist splint. Lower extremity and upper extremity range of motion, and strengthen ing exercises, including overhead [place] range of motion, lower extremity strengthening with 4 pound ankle weights multiple reps multiple planes of motion 30 minutes. Functional Endurance Poor, patient with complaints of forearm pain. ROM L LE ROM: Grossly WFL for body habitus type R LE ROM: Grossly WFL for body habitus type Strength L LE Strength: hip flexion 2+/5, knee ext 3+/5, DF 3+/5 R LE Strength: grossly graded 4-/5 PT Goal Review Date Most Recent Value STG Review Date 06/30/18 at 06/23/2018 0915 LTG Review Date 07/14/18 at 06/23/2018 0915 [id number] Goal Most Recent Value STG Status continued at 06/25/2018 1427 STG Hammond Level supervised at 06/23/2018 0915 STG Assistive Device bed rails, overhead trapeze at 06/23/2018 0915 LTG Status new at 06/23/2018 0915 LTG Hammond Level modified independent at 06/23/2018 0915 LTG Assistive Device bed rails, overhead trapeze at 06/23/2018 0915 [id number]-[id number] Goal Most Recent Value STG Status met at 06/25/2018 1427 STG Hammond Level contact guard assist at 06/23/2018 0915 STG Assistive Device 2 wheeled walker (FWW), bariatric at 06/23/2018 0915 LTG Status progressing at 06/25/2018 1427 LTG Hammond Level modified independent at 06/23/2018 0915 LTG Assistive Device 2 wheeled walker (FWW), bariatric, 4 wheeled walker (4WW) at 06/23/20 18 0915 Gait Goal Most Recent Value STG Status progressing at 06/25/2018 1157 STG Hammond Level contact guard assist at 06/23/2018 0915 STG Assistive Device bariatric, 2 wheeled walker (FWW) at 06/23/2018 0915 STG Comments 50' at 06/23/2018 0915 LTG Status new at 06/23/2018 0915 LTG Hammond Level modified independent at 06/23/2018 0915 LTG Assistive Device 2 wheeled walker (FWW), bariatric, 4 wheeled walker (4WW) at 06/23/20 18 0915 LTG Distance (feet) 50' x 3 at 06/23/2018 0915 LTG Comments ramps at 06/23/2018 0915 Electronically signed by: Abraham Carvalho, PT, 06/25/2018 17:47 lan of Care - Cav Alicia harrington, [employer]PARTMENT SUPERVISOR - 06/25/2018 1:07 PM PDTProblem: Patient Care Overview (Adult) Goal: Care Team Goals & Evaluation PROBLEM-RELATED GOALS: 1. Ed will remain free from all falls and injuries through 07/04/18 2. Ed's skin will remain intact and any impairments will show signs of healing by 06/25/18 3. Ed will ambulated with FWW and physical therapy by 06/29/18 4. Ed will have no deterioration in his neuro assessment through 07/04/18 5. Ed will be continent of bowel and bladder and will not have any accidents through 6. Ed will have no s/sx of aspiration through 07/04/18 7. Pt will be Mod I in transfers and amb using bariatric FWW by 07/14/18. 8. Pt will tolerate dysphagia advanced foods and nectar thick liquids with no overt s/sx of airway compromise by 07/04/2018 STRATEGY TO ACHIEVE GOALS: 1. Perform purposeful rounding, ensure call light is within reach and provide supervision f or all OOB activity 2. Assist patient with repositioning in bed, perform incontinence care if needed and monito r for signs of skin breakdown 3. Encourage active participation in PT/OT 4. Perform neuro assessment Qshift and notify MD of any decline 5. Assist with toileting, encourage fluid intake for bowel and bladder function 6. Provide altered textures and thickened fluids and ensure patient is sitting upright for all oral intake - Full participation in PT session in functional mobility training. - Full participation in ST sessions RESTRAINT-RELATED GOALS: STRATEGIES TO ACHIEVE RESTRAINT GOALS: Goal Evaluation: Ed woke in the middle of the night and pulled off his cpap mask and threw it, in confusion , across the room, breaking the nose piece on his medium full face mask. He now has in his r oom a Quattro. I have called the [facility] sleep [facility], as per his request, and requested a new mask and other supplies be mailed to his home. He is currently on room air, breath so unds are clear, equal and diminished. Continue to support his needs. Electronically signed b y: Alicia Barajsa, TRAVIS 06/25/2018 13:07 lan of Care - Abraham Bird, PT - 06/25/2018 12:03 PM PDTFormatting of this note might be different from t he original. Problem: Patient Care Overview (Adult) Goal: Care Team Goals & Evaluation PROBLEM-RELATED GOALS: 1. Ed will remain free from all falls and injuries through 07/04/18 2. Ed's skin will remain intact and any impairments will show signs of healing by 06/25/18 3. Ed will ambulated with FWW and physical therapy by 06/29/18 4. Ed will have no deterioration in his neuro assessment through 07/04/18 5. Ed will be continent of bowel and bladder and will not have any accidents through 6. Ed will have no s/sx of aspiration through 07/04/18 7. Pt will be Mod I in transfers and amb using bariatric FWW by 07/14/18. 8. Pt will tolerate dysphagia advanced foods and nectar thick liquids with no overt s/sx of airway compromise by 07/04/2018 STRATEGY TO ACHIEVE GOALS: 1. Perform purposeful rounding, ensure call light is within reach and provide supervision f or all OOB activity 2. Assist patient with repositioning in bed, perform incontinence care if needed and monito r for signs of skin breakdown 3. Encourage active participation in PT/OT 4. Perform neuro assessment Qshift and notify MD of any decline 5. Assist with toileting, encourage fluid intake for bowel and bladder function 6. Provide altered textures and thickened fluids and ensure patient is sitting upright for all oral intake - Full participation in PT session in functional mobility training. - Full participation in ST sessions RESTRAINT-RELATED GOALS: STRATEGIES TO ACHIEVE RESTRAINT GOALS: Outcome: Improving IRF Physical Therapy Plan of Care Treatment Note Summary: Sarthak has been participating in physical therapy for treatment of Impaired bal ance, gait instability, (L) sided neglect, (L) zena paresis who was admitted d/t CVA. 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 Hx of previous C VA affecting (R) side.. Emphasis of session included bed mobility training with emphasis o n breathing throughout, improving technique to reduce strain, sit to stand training with emp hasis on left-sided use and lower extremity strengthening, pre-gait with emphasis on left-si ded use and dynamic balance, wheelchair management. Patient demonstrates progress towards f unctional goals as evidenced by vision able to perform steps with a bariatric front wheel wa lker several reps 10. Remaining barriers to discharge and functional limitations include decreased insight into safety and deficits, decreased functional activity tolerance, decreas ed bed mobility, decreased functional transfers, decreased functional gait distance, decreas ed gait velocity and not yet able to mobilize at level safe for home discharge. Sarthak will benefit from continued therapeutic intervention to address ongoing impairments and increase safety and independence with activities necessary for safe discharge. Refer be low for specific details regarding functional levels. Physical Therapy Discharge Recommendations are: Recommended discharge disposition: home with assist Post discharge physical therapy recommendation: home health Equipment Recommendations: bariatric, 2 wheeled walker (FWW) Planned Interventions: balance training, bed mobility training, gait training, home exerci se program, lumbar stabilization, manual therapy techniques, motor coordination training, st air training, strengthening, ROM (Range of Motion), postural re-education, patient/family ed ucation, neuromuscular re-education, transfer training, wheelchair management/propulsion tra ining Frequency: daily (1-2x/day) Patient Status/Goals: Reflects last filed data and may be from multiple contributors. Bed Mobility Heavy use of bed features for that mobility, otherwise does not require more than contact-g uard assist for general safety. Patient demonstrating impulsivity and requires close guardi ng Assistive Device: bed rails, HOB elevated, overhead trapeze Roll Left, Level of Hammond: stand by assist, verbal cues required Roll Right, Level of Hammond: stand by assist, verbal cues required Scoot/Bridge, Level of Hammond: verbal cues required, tactile cues required, contact g uard assist, set up required Supine to Sit, Level of Hammond: contact guard assist, set up required, verbal cues re quired, tactile cues required Sit to Supine, Level of Hammond: not tested Safety Issues: decreased use of arms for pushing/pulling, decreased use of legs for bridgin g/pushing, impaired trunk control for bed mobility Impairments: muscle tone abnormal, decreased flexibility, strength decreased, impaired demi nce, coordination impaired, motor control impaired, postural control impaired, sensory feedb ack impaired, pain Transfers 1 person +1 person min assist for imbalance, weakness, impulsivity, decreased flexibility, morbid obesity, and left-sided neglect. Repeated cues to attend to left side, continues to be behind left arm and left hand requires extra effort and extra time to advance left leg. Bed-Chair, Level of Hammond: minimal assist (75% patient effort), 1 person + 1 person to manage equipment Chair-Bed, Level of Hammond: minimal assist (75% patient effort), 1 person + 1 person to manage equipment Yop-Pagta-Oce, Assistive Device: 2 wheeled walker (FWW), bariatric, wheelchair Sit-Stand, Level of Hammond: minimal assist (75% patient effort), 1 person + 1 person to manage equipment, tactile cues required, verbal cues required, set up required Stand-Sit, Level of Hammond: minimal assist (75% patient effort), set up required, param bal cues required, tactile cues required [id number], Assistive Device: 2 wheeled walker (FWW), bariatric Safety Issues: balance decreased during turns, sequencing ability decreased, step length de creased, weight-shifting ability decreased Impairments: muscle tone abnormal, ROM decreased, sensation decreased, strength decreased, impaired balance, coordination impaired, motor control impaired, postural control impaired Gait Pre-gait with front wheel walker with emphasis on advancing left leg, weight-shifting, side d forced use, attention to left hand on walker, and dynamic balance. Repeated verbal cues a nd tactile cues for maintaining left hand on walker, consistent with steps we'll leave behin d left foot and less cued. Level of Hammond: minimal assist (75% patient effort), set up required, verbal cues re quired, 1 person + 1 person to manage equipment Assistive Device: 2 wheeled walker (FWW), bariatric Distance (feet): 15' + 20'+ 10' Gait Pattern Analysis: other (see comments) (White gait with left-sided inattentiveness) Gait Deviations: alize decreased, double stance time increased, limb motion velocity decr eased, [id number] clearance decreased, step length decreased, weight-shifting ability decr eased, nvwmn-iw-[id number] ratio decreased Safety Issues: balance decreased during turns, sequencing ability decreased, step length de creased, weight-shifting ability decreased Impairments: pain, strength decreased, impaired balance, coordination impaired, motor contr ol impaired, ROM decreased, sensation decreased, decreased flexibility, postural control imp aired Stairs Therapeutic Exercise Sit to stand training from elevated therapy mat, with emphasis on left-sided attention, for hossein left-sided use, static and dynamic balance in standing, and pre-gait with front wheel wa lker x30 min. Functional Endurance Poor, patient with complaints of increasing bilateral wrist pain PT Goal Review Date Most Recent Value STG Review Date 06/30/18 at 06/23/2018914 LTG Review Date 07/14/18 at 06/23/2018 0915 [id number] Goal Most Recent Value STG Status progressing at 06/25/2018 1157 STG Hammond Level supervised at 06/23/201815 STG Assistive Device bed rails, overhead trapeze at 06/23/201815 LTG Status new at 06/23/201815 LTG [place] Level modified independent at 06/23/2018 0915 LT Assistive Device bed rails, overhead trapeze at 06/23/2018 0915 [id number] Goal Most Recent Value STG Status progressing at 06/25/2018 1157 STG [place] Level contact guard assist at 06/23/2018 0915 STG Assistive Device 2 wheeled walker (FWW), bariatric at 06/23/2018 0915 LTG Status new at 06/23/2018 0915 LTG [place] Level modified independent at 06/23/2018 0915 LTG Assistive Device 2 wheeled walker (FWW), bariatric, 4 wheeled walker (4WW) at 06/23/20 18 0915 Gait Goal Most Recent Value STG Status progressing at 06/25/2018 1157 STG [place] Level contact guard assist at 06/23/2018 0915 STG Assistive Device bariatric, 2 wheeled walker (FWW) at 06/23/2018 0915 STG Comments 50' at 06/23/2018 0915 LTG Status new at 06/23/2018 0915 LTG Hammond Level modified independent at 06/23/2018 0915 LTG Assistive Device 2 wheeled walker (FWW), bariatric, 4 wheeled walker (4WW) at 06/23/20 18 0915 LTG Distance (feet) 50' x 3 at 06/23/2018 0915 LTG Comments ramps at 06/23/2018 0915 Electronically signed by: Abraham Carvalho, PT, 06/25/2018 12:00 lan of Care - Yasmine Chambers OT - 06/25/2018 11:01 AM PDT Problem: Patient Care Overview (Adult) Goal: Care Team Goals & Evaluation PROBLEM-RELATED GOALS: 1. Ed will remain free from all falls and injuries through 07/04/18 2. Ed's skin will remain intact and any impairments will show signs of healing by 06/25/18 3. Ed will ambulated with FWW and physical therapy by 06/29/18 4. Ed will have no deterioration in his neuro assessment through 07/04/18 5. Ed will be continent of bowel and bladder and will not have any accidents through 6. Ed will have no s/sx of aspiration through 07/04/18 7. Pt will be Mod I in transfers and amb using bariatric FWW by 07/14/18. 8. Pt will tolerate dysphagia advanced foods and nectar thick liquids with no overt s/sx of airway compromise by 07/04/2018 STRATEGY TO ACHIEVE GOALS: 1. Perform purposeful rounding, ensure call light is within reach and provide supervision f or all OOB activity 2. Assist patient with repositioning in bed, perform incontinence care if needed and monito r for signs of skin breakdown 3. Encourage active participation in PT/OT 4. Perform neuro assessment Qshift and notify MD of any decline 5. Assist with toileting, encourage fluid intake for bowel and bladder function 6. Provide altered textures and thickened fluids and ensure patient is sitting upright for all oral intake - Full participation in PT session in functional mobility training. - Full participation in ST sessions RESTRAINT-RELATED GOALS: STRATEGIES TO ACHIEVE RESTRAINT GOALS: Outcome: Improving IRF Occupational Therapy Plan of Care Treatment Note Summary: Sarthak has been participating in occupational therapy for treatment of decrease d ADL performance, fxl mobility, activity tolerance, safety awareness s/p ischemic CGA, L si ded weakness. Emphasis of session included grooming, bathing, showering in walk-in shower, functional t/fs, toileting, toilet t/fs, and manual lymphedema and wound management. OT cut off Coban 2 and nursing checked wound and skin integrity. Discussion with nursing and OT per taining to wound management. OT washed and check skin integrity during showering. OT applied Calazime lotion to BLEs, avoiding open areas, aqua cell per orders to open/weeping areas,an d reapplied coban 2 system. Pt tolerating wraps well . Patient demonstrates progress toward s functional goals as evidenced by progressing with functional t/fs. Remaining barriers to discharge and functional limitations include decreased functional activity tolerance, decrea sed bed mobility, decreased functional transfers, decreased ability to perform ADLs, decreas ed ability to perform IADLs, decreased ability to perform medication management, lives alone , demonstrating need for 24/7 supervision, unsafe discharge disposition, not yet able to mob ilize at level safe for home discharge and medical status. Sarthak will benefit from continued therapeutic intervention to address ongoing impairments and increase safety and independence with activities necessary for safe discharge. Refer be low for specific details regarding functional levels. Occupational Therapy Discharge Recommendations are: Recommended discharge disposition: home with assist, long-term facility Post discharge occupational therapy recommendation: will benefit from structured setting, home health Equipment Recommendations: bariatric, commode (3 in 1), long handled sponge, grain oilseed or pasture farm worker, sock aide Planned Interventions:ADL retraining, balance training, bed mobility training, motor coordi nation training, neuromuscular re-education, fine motor coordination training, ROM (Range of Motion), strengthening, transfer training Recommended Frequency: other (see comments) (rehab schedule) Patient Status/Goals: Reflects last filed data and may be from multiple contributors. ADLs Pt sitting EOB filling out menu. He is agreeable to work with OT this AM. Pt able to self direct care and did follow VC's appropriately to assist with self care tasks min assist for cleanliness with catheter, beneath panis, and buttocks. Bathing, Level of Hammond: 1 person + 1 person to manage equipment, minimal assist (75 % patient effort) Assistive Device: grab bars, hand-held shower head, shower chair with back Bathing Assess/Train, Position: sitting, supported standing Bathing Assess/Train, Impairments: muscle tone abnormal, decreased flexibility, ROM decreas ed, sensation decreased, strength decreased, impaired balance, coordination impaired, motor control impaired, postural control impaired, sensory feedback impaired (body habitus) min assist for threading arms into hospital gown. UB Dressing, Level of Hammond: minimal assist (75% patient effort), set up required, t actile cues required Assistive Device: none UB Dressing Assess/Train, Position: sitting UB Dressing Assess/Train, Impairments: muscle tone abnormal, decreased flexibility, ROM dec reased, sensation decreased, strength decreased, coordination impaired, motor control impair ed, postural control impaired, sensory feedback impaired declined at this time. LB Dressing, Level of Hammond: 2 person assist required, verbal cues required, tactile cues required, set up required, moderate assist (50% patient effort) Assistive Device: grain oilseed or pasture farm worker LB Dressing Assess/Train, Position: sitting, supported standing LB Dressing Assess/Train, Impairments: muscle tone abnormal, decreased flexibility, ROM dec reased, sensation decreased, strength decreased, impaired balance, coordination impaired, mo tor control impaired, postural control impaired, sensory feedback impaired dependent with hygiene. Toileting, Level of Hammond: dependent ( less than 25% patient effort), 1 person + 1 p erson to manage equipment, set up required, verbal cues required, tactile cues required Assistive Device: grab bar Toileting Assess/Train, Position: supported standing Toileting Assess/Train, Impairments: decreased flexibility, ROM decreased, strength decreas ed, impaired balance, coordination impaired, motor control impaired, postural control impair ed (body habitus) assist into bathroom and set-up required. SBA and v/c for use of LUE. Grooming, Level of Hammond: stand by assist, verbal cues required Assistive Device: none Grooming Assess/Train, Position: sitting Grooming Assess/Train, Impairments: ROM decreased, sensation decreased, strength decreased, postural control impaired, motor control impaired, coordination impaired, sensory feedback impaired Bed Mobility CGA for safety with bed mobility. Assistive Device: bed rails, HOB elevated, overhead trapeze Roll Right, Level of Hammond: contact guard assist, set up required, verbal cues requi red, tactile cues required Scoot/Bridge, Level of Hammond: verbal cues required, tactile cues required, contact g uard assist Supine to Sit, Level of Hammond: contact guard assist, set up required, verbal cues re quired, tactile cues required Sit to Supine, Level of Hammond: contact guard assist, set up required, verbal cues re quired, tactile cues required Safety Issues: decreased use of arms for pushing/pulling, decreased use of legs for bridgin g/pushing, impaired trunk control for bed mobility Impairments: muscle tone abnormal, decreased flexibility, strength decreased, impaired demi nce, coordination impaired, motor control impaired, postural control impaired, sensory feedb ack impaired, pain Transfers CGA +1 for generalized safety due to deficits and body habitus. cueing for sequencing an cu eing reminders to attend to L side. Bed-Chair, Level of Hammond: contact guard assist, set up required, verbal cues requir ed, tactile cues required, 1 person + 1 person to manage equipment Chair-Bed, Level of Hammond: contact guard assist, set up required, verbal cues requir ed, tactile cues required, 1 person + 1 person to manage equipment [id number], Assistive Device: 2 wheeled walker (FWW), wheelchair Sit-Stand, Level of Hammond: contact guard assist, set up required, 1 person + 1 perso n to manage equipment Stand-Sit, Level of Hammond: contact guard assist, verbal cues required, 1 person + 1 person to manage equipment [id number], Assistive Device: 2 wheeled walker (FWW), bariatric Toilet, Level of Hammond: set up required, verbal cues required, contact guard assist, 1 person + 1 person to manage equipment Toilet, Assistive Device: bariatric, 2 wheeled walker (FWW), grab bars Walk-in shower, Level of Hammond: contact guard assist, 1 person + 1 person to manage equipment, set up required, verbal cues required Walk-in shower, Assistive Device: 2 wheeled walker (FWW), grab bars, shower chair Safety Issues: balance decreased during turns, sequencing ability decreased, step length de creased, weight-shifting ability decreased Impairments: muscle tone abnormal, ROM decreased, sensation decreased, strength decreased, impaired balance, coordination impaired, motor control impaired, postural control impaired OT Goal Review Date Most Recent Value STG Review Date 06/30/18 at 06/23/2018 0945 LTG Review Date 07/07/18 at 06/23/2018 0945 Grooming Goal Most Recent Value STG Status met at 06/24/2018 0850 STG Hammond Level minimum assist (75% patient effort) at 06/23/2018 0945 STG Position sitting in chair at 06/23/2018 0945 STG Adaptive Equipment none at 06/23/2018 0945 LTG Status revised at 06/25/2018 1101 LTG Hammond Level supervised at 06/25/2018 1101 LTG Position sitting in chair at 06/23/2018 0945 LTG Adaptive Equipment none at 06/23/2018 0945 Bathing Goal Most Recent Value STG Status progressing at 06/25/2018 1101 STG [place] Level minimum assist (75% patient effort), set up required, verbal cues r equired at 06/23/2018 0945 STG Adaptive Equpiment grab bars, shower head, detachable, sponge, long handled, tub bench with back at 06/23/2018 0945 STG Position sitting at 06/23/2018 0945 LTG Status progressing at 06/25/2018 1101 LTG [place] Level contact guard assist at 06/23/2018 0945 LTG Adaptive Equpiment grab bars, shower head, detachable, sponge, long handled, tub bench with back at 06/23/2018 0945 LTG Position sitting at 06/23/2018 0945 UB Dressing Goal Most Recent Value STG Status progressing at 06/24/2018 0850 STG Hammond Level stand by assist, set up required at 06/23/2018 0945 STG Adaptive Equipment none at 06/23/2018 0945 LTG Status progressing at 06/24/2018 0850 LTG [place] Level supervised, set up required at 06/23/2018 0945 LTG Adaptive Equipment none at 06/23/2018 0945 LB Dressing Goal Most Recent Value STG Status progressing at 06/24/2018 0850 STG [place] Level moderate assist (50% patient effort), set up required at 06/23/2018 0945 STG Adaptive Equipment grain oilseed or pasture farm worker, shoe horn, long handled, sock-aid at 06/23/2018 0945 LTG Status progressing at 06/24/2018 0850 LTG [place] Level contact guard assist, set up required at 06/23/2018 0945 LTG Adaptive Equipment grain oilseed or pasture farm worker, shoe horn, long handled, sock-aid at 06/23/2018 0945 Toileting Goal Most Recent Value STG Status progressing at 06/25/2018 1101 STG [place] Level minimum assist (75% patient effort), set up required, verbal cues r equired at 06/23/2018 0945 STG Assistive Device bariatric bedside commode, grab bar at 06/23/2018 0945 LTG Status progressing at 06/25/2018 1101 LTG [place] Level contact guard assist at 06/23/2018 0945 LTG Assistive Device bariatric bedside commode, grab bar at 06/23/2018 0945 Toilet Transfer Goal Most Recent Value STG Status progressing at 06/25/2018 1101 STG [place] Level contact guard assist at 06/23/2018 0945 STG Assistive Device bariatric, commode (3 in 1), grab bars at 06/23/2018 0945 LTG Status progressing at 06/25/2018 1101 LTG [place] Level stand by assist at 06/23/2018 0945 LTG Assistive Device bariatric, commode (3 in 1), grab bars at 06/23/2018 0945 Tub/Shower Transfer Goal Most Recent Value Tub/Shower Type tub/shower combo at 06/23/2018 0945 STG Status progressing at 06/25/2018 1101 STG [place] Level contact guard assist, set up required, verbal cues required at 12/2017 0945 STG Assistive Device bariatric, tub bench, grab bars at 06/23/2018 0945 LTG Status progressing at 06/25/2018 1101 LTG [place] Level stand by assist at 06/23/2018 0945 LTG Assistive Device bariatric, tub bench, grab bars at 06/23/2018 0945 Additional Goals #1 OT Most Recent Value STG Status new, progressing at 06/24/2018 1515 STG Pt will increase automatic L hand during fxl and ADL tasks by requiring Mod vc's at 1515 LTG Status new at 06/24/2018 1515 LTG Pt will increase automatic L hand during fxl and ADL tasks by requiring Min vc's at 1515 Electronically signed by: Yasmine Alvarez, OT, 06/25/2018 11:55 lan of Care - Jennie Edwards, [employer]S DEPARTMENT SUPERVISOR - 06/25/2018 4:32 AM PDTProblem: Patient Care Overview (Adult) Goal: Care Team Goals & Evaluation PROBLEM-RELATED GOALS: 1. Ed will remain free from all falls and injuries through 07/04/18 2. Ed's skin will remain intact and any impairments will show signs of healing by 06/25/18 3. Ed will ambulated with FWW and physical therapy by 06/29/18 4. Ed will have no deterioration in his neuro assessment through 07/04/18 5. Ed will be continent of bowel and bladder and will not have any accidents through 6. Ed will have no s/sx of aspiration through 07/04/18 7. Pt will be Mod I in transfers and amb using bariatric FWW by 07/14/18. 8. Pt will tolerate dysphagia advanced foods and nectar thick liquids with no overt s/sx of airway compromise by 07/04/2018 STRATEGY TO ACHIEVE GOALS: 1. Perform purposeful rounding, ensure call light is within reach and provide supervision f or all OOB activity 2. Assist patient with repositioning in bed, perform incontinence care if needed and monito r for signs of skin breakdown 3. Encourage active participation in PT/OT 4. Perform neuro assessment Qshift and notify MD of any decline 5. Assist with toileting, encourage fluid intake for bowel and bladder function 6. Provide altered textures and thickened fluids and ensure patient is sitting upright for all oral intake - Full participation in PT session in functional mobility training. - Full participation in ST sessions RESTRAINT-RELATED GOALS: STRATEGIES TO ACHIEVE RESTRAINT GOALS: Outcome: Unchanged Goal Evaluation: Edward oxygen saturation is SpO2: 95 % on % fiO2 non-invasive ventilation (i.e. bi-level) , home unit and a heart rate of 75. Breath sounds are clear, diminished . Pt has a none coug h. Pt's respirations are no shortness of breath reported, depth regular, pattern regular, un labored with expansion symmetric, no use of accessory muscles. During the night the patient threw his full face mask and it fell out into several pieces. Had to search through the room and placed it back together. Instructed patient that not to t hrow it or it may break, but this time it did not. lan of Care - [facility] Yessy Curtis RN - 06/25/2018 4:28 AM PDTProblem: Patient Care Overview (Adult) Goal: Care Team Goals & Evaluation PROBLEM-RELATED GOALS: 1. Ed will remain free from all falls and injuries through 07/04/18 2. Ed's skin will remain intact and any impairments will show signs of healing by 06/25/18 3. Ed will ambulated with FWW and physical therapy by 06/29/18 4. Ed will have no deterioration in his neuro assessment through 07/04/18 5. Ed will be continent of bowel and bladder and will not have any accidents through 6. Ed will have no s/sx of aspiration through 07/04/18 7. Pt will be Mod I in transfers and amb using bariatric FWW by 07/14/18. 8. Pt will tolerate dysphagia advanced foods and nectar thick liquids with no overt s/sx of airway compromise by 07/04/2018 STRATEGY TO ACHIEVE GOALS: 1. Perform purposeful rounding, ensure call light is within reach and provide supervision f or all OOB activity 2. Assist patient with repositioning in bed, perform incontinence care if needed and monito r for signs of skin breakdown 3. Encourage active participation in PT/OT 4. Perform neuro assessment Qshift and notify MD of any decline 5. Assist with toileting, encourage fluid intake for bowel and bladder function 6. Provide altered textures and thickened fluids and ensure patient is sitting upright for all oral intake - Full participation in PT session in functional mobility training. - Full participation in ST sessions RESTRAINT-RELATED GOALS: STRATEGIES TO ACHIEVE RESTRAINT GOALS: Outcome: Improving Goal Evaluation: neuros stable and unchanged, slept at intervals with bipap inplace, calling appropriately, makes needs known, silva draining chayito urine, incontinent of bowel x1. lan of Care - Hui Triplett RN - 06/24/2018 6:56 PM PDTProblem: Patient Care Overview (Adult) Goal: Care Team Goals & Evaluation PROBLEM-RELATED GOALS: 1. Ed will remain free from all falls and injuries through 07/04/18 2. Ed's skin will remain intact and any impairments will show signs of healing by 06/25/18 3. Ed will ambulated with FWW and physical therapy by 06/29/18 4. Ed will have no deterioration in his neuro assessment through 07/04/18 5. Ed will be continent of bowel and bladder and will not have any accidents through 6. Ed will have no s/sx of aspiration through 07/04/18 7. Pt will be Mod I in transfers and amb using bariatric FWW by 07/14/18. 8. Pt will tolerate dysphagia advanced foods and nectar thick liquids with no overt s/sx of airway compromise by 07/04/2018 STRATEGY TO ACHIEVE GOALS: 1. Perform purposeful rounding, ensure call light is within reach and provide supervision f or all OOB activity 2. Assist patient with repositioning in bed, perform incontinence care if needed and monito r for signs of skin breakdown 3. Encourage active participation in PT/OT 4. Perform neuro assessment Qshift and notify MD of any decline 5. Assist with toileting, encourage fluid intake for bowel and bladder function 6. Provide altered textures and thickened fluids and ensure patient is sitting upright for all oral intake - Full participation in PT session in functional mobility training. - Full participation in ST sessions RESTRAINT-RELATED GOALS: STRATEGIES TO ACHIEVE RESTRAINT GOALS: Goal Evaluation: Ed's VSS, lungs clear and dim throughout. No c/o pain throughout shift. Weakness to left ex tremities noted, able to lift limbs against gravity. Silva catheter placed this afternoon d/ t urinary retention, draining c/y urine at this time. Transfers to w/c with 2P assist and FW W, non-ambulatory at this time. Overhead trapeze bar for bed mobility aid, fall precautions maintained. A/O x4, speech is slurred, able to communicate needs. L facial droop noted, visi on is central, difficulty locating peripherally. No s/s of aspiration, MD in to talk with pt today about allowing thin liquids as pt non-compliant with nectar-thick order. Pt verbalize d understanding of risks associated with texture upgrade, tucks chin when swallowing appropr iately. lan of Care - Alaina Rogers MSW - 06/24/2018 6:00 PM PDTCase Management Progress Note CM/SW Discharge Plan Progress This CM met with the patient to initiate d/c planning, conduct BIMS, and answer questions. Patient was sitting at bedside. Patient stated that his spouse would be bringing additional clothes for him on Wednesday. The patient stated that he had a caregiver through [facility]. The patient asked this CM to contact Vicenta, his skilled nursing case manager, to make arrangem ents for a caregiver post discharge. This CM to follow on Wednesday. lan of Care - Oliva Lam RN - 06/24/2018 4:59 PM PDTBS 68. Full glass OJ given and eating more of meal enc. Will re-assess. Plan of Care - Choco Abreu OT - 06/24/2018 3:47 PM PDT Problem: Patient Care Overview (Adult) Goal: Care Team Goals & Evaluation PROBLEM-RELATED GOALS: 1. Ed will remain free from all falls and injuries through 07/04/18 2. Ed's skin will remain intact and any impairments will show signs of healing by 06/25/18 3. Ed will ambulated with FWW and physical therapy by 06/29/18 4. Ed will have no deterioration in his neuro assessment through 07/04/18 5. Ed will be continent of bowel and bladder and will not have any accidents through 6. Ed will have no s/sx of aspiration through 07/04/18 7. Pt will be Mod I in transfers and amb using bariatric FWW by 07/14/18. 8. Pt will tolerate dysphagia advanced foods and nectar thick liquids with no overt s/sx of airway compromise by 07/04/2018 STRATEGY TO ACHIEVE GOALS: 1. Perform purposeful rounding, ensure call light is within reach and provide supervision f or all OOB activity 2. Assist patient with repositioning in bed, perform incontinence care if needed and monito r for signs of skin breakdown 3. Encourage active participation in PT/OT 4. Perform neuro assessment Qshift and notify MD of any decline 5. Assist with toileting, encourage fluid intake for bowel and bladder function 6. Provide altered textures and thickened fluids and ensure patient is sitting upright for all oral intake - Full participation in PT session in functional mobility training. - Full participation in ST sessions RESTRAINT-RELATED GOALS: STRATEGIES TO ACHIEVE RESTRAINT GOALS: Outcome: Improving IRF Occupational Therapy Plan of Care Treatment Note Summary: Sarthak has been participating in occupational therapy for treatment of decrease d ADL performance, fxl mobility, activity tolerance, safety awareness s/p ischemic CGA, L si ded weakness. Emphasis of session included IADL laundry task, neuro-reeduation, and AROM TYRONE E in prep for fxl activities and ADLs. Patient demonstrates progress towards functional goa ls as evidenced by improved behavior and participation in tx. Remaining barriers to dischar ge and functional limitations include decreased insight into safety and deficits, decreased functional activity tolerance, decreased bed mobility, decreased functional transfers, decre ased ability to perform ADLs, decreased ability to perform IADLs, decreased ability to perfo rm medication management, lives alone, demonstrating need for 24/7 supervision, not yet able to mobilize at level safe for home discharge and medical status. Sarthak will benefit from continued therapeutic intervention to address ongoing impairments and increase safety and independence with activities necessary for safe discharge. Refer be low for specific details regarding functional levels. Occupational Therapy Discharge Recommendations are: Recommended discharge disposition: home with assist, long-term facility Post discharge occupational therapy recommendation: will benefit from structured setting, home health Equipment Recommendations: bariatric, commode (3 in 1), long handled sponge, grain oilseed or pasture farm worker, sock aide Planned Interventions:ADL retraining, balance training, bed mobility training, motor coordi nation training, neuromuscular re-education, fine motor coordination training, ROM (Range of Motion), strengthening, transfer training Recommended Frequency: other (see comments) (rehab schedule) Patient Status/Goals: IADLs Pt participated in laundry task. Laundry basket with clothing set to L on top of dryer. Pt encouraged to use LUE during activity. vc's and CGA given to LUE d/t poor motor planning. Pt able to place clothing in washer, though with quick and uncontrolled movements. Pt attempte d to open cap on laundry detergent, however unable to twist. Pt became fatigued and requeste d to sit down. Pt transitioned to seated position on bed near [facility]. Laundry Training, OT Eval Level Of Hammond: Laundry: moderate assist (50% patient effort) Physical Assist/Nonphysical Assist: Laundry: set-up required, verbal cues, 2 persons Assistive Device: standard walker Therapeutic Exercise After laundry task, pt became fatigued and required a seated rest break. While seated at th e EOB near [facility], pt encouraged to weightbear towards L side with L hand flat on bed. Pt re quired cueing throughout. Pt then transitioned to sit in w/c to increase trunk support. In w /c, pt complete 1 set of 10 AAROM shoulder flexion, with RUE assisting LUE. Pt then complete d 1 set of 10 AROM elbow flexion/extension in neutral position d/t difficulty in supination from previous injury/surgery. Pt transitioned to 1 set of 10 composite finger flexion/extens ion. Vc's throughout to focus on each movement and pacing. Functional Endurance Poor, pleasant however fatigued throughout Cognitive No instances of agitation this tx session, pt was calm, though fatigued throughout tx sessi on Mood/Behavior: calm Orientation: oriented x 4 Speech: slurred Bed Mobility CGA for rolling R, scooting, and supine <> sit. vc's for scooting at EOB, body positioning in bed, and hand placement to scoot up in bed. Assistive Device: bed rails, HOB elevated, overhead trapeze Roll Right, Level of Hammond: contact guard assist, set up required, verbal cues requi red, tactile cues required Scoot/Bridge, Level of Hammond: verbal cues required, tactile cues required, contact g uard assist Supine to Sit, Level of Hammond: contact guard assist, set up required, verbal cues re quired, tactile cues required Sit to Supine, Level of Hammond: contact guard assist, set up required, verbal cues re quired, tactile cues required Safety Issues: decreased use of arms for pushing/pulling, decreased use of legs for bridgin g/pushing, impaired trunk control for bed mobility Impairments: muscle tone abnormal, decreased flexibility, strength decreased, impaired demi nce, coordination impaired, motor control impaired, postural control impaired, sensory feedb ack impaired, pain Transfers Pt fluctuated between 2P Min A/CGA during sit<>stand t/fs from w/c and bed d/t fatigue. Ass istance and vc's to bring L hand up to FWW and positioning for sit<>stand t/fs. Bed-Chair, Level of Hammond: contact guard assist, 2 person assist required, set up re quired, verbal cues required, tactile cues required Chair-Bed, Level of Hammond: contact guard assist, set up required, verbal cues requir ed, tactile cues required, 2 person assist required [id number], Assistive Device: 2 wheeled walker (FWW), wheelchair Sit-Stand, Level of Hammond: contact guard assist, 2 person assist required, set up re quired Stand-Sit, Level of Hammond: contact guard assist, 2 person assist required, verbal cu es required [id number], Assistive Device: 2 wheeled walker (FWW), bariatric Safety Issues: balance decreased during turns, sequencing ability decreased, step length de creased, weight-shifting ability decreased Impairments: muscle tone abnormal, ROM decreased, sensation decreased, strength decreased, impaired balance, coordination impaired, motor control impaired, postural control impaired OT Goal Review Date Most Recent Value STG Review Date 06/30/18 at 06/23/2018 0945 LTG Review Date 07/07/18 at 06/23/2018 0945 Grooming Goal Most Recent Value STG Status met at 06/24/2018 0850 STG Hammond Level minimum assist (75% patient effort) at 06/23/2018 0945 STG Position sitting in chair at 06/23/2018 0945 STG Adaptive Equipment none at 06/23/2018 0945 LTG Status progressing at 06/24/2018 0850 LTG [place] Level stand by assist at 06/23/2018 0945 LTG Position sitting in chair at 06/23/2018 0945 LTG Adaptive Equipment none at 06/23/2018 0945 Bathing Goal Most Recent Value STG Status progressing at 06/24/2018 0850 STG [place] Level minimum assist (75% patient effort), set up required, verbal cues r equired at 06/23/2018 0945 STG Adaptive Equpiment grab bars, shower head, detachable, sponge, long handled, tub bench with back at 06/23/2018 0945 STG Position sitting at 06/23/2018 0945 LTG Status progressing at 06/24/2018 0850 LTG Hammond Level contact guard assist at 06/23/2018 0945 LTG Adaptive Equpiment grab bars, shower head, detachable, sponge, long handled, tub bench with back at 06/23/2018 0945 LTG Position sitting at 06/23/2018 0945 UB Dressing Goal Most Recent Value STG Status progressing at 06/24/2018 0850 STG Hammond Level stand by assist, set up required at 06/23/2018 0945 STG Adaptive Equipment none at 06/23/2018 0945 LTG Status progressing at 06/24/2018 0850 LTG Hammond Level supervised, set up required at 06/23/2018 0945 LTG Adaptive Equipment none at 06/23/2018 0945 LB Dressing Goal Most Recent Value STG Status progressing at 06/24/2018 0850 STG Hammond Level moderate assist (50% patient effort), set up required at 06/23/2018 0945 STG Adaptive Equipment grain oilseed or pasture farm worker, shoe horn, long handled, sock-aid at 06/23/2018 0945 LTG Status progressing at 06/24/2018 0850 LTG Hammond Level contact guard assist, set up required at 06/23/2018 0945 LTG Adaptive Equipment grain oilseed or pasture farm worker, shoe horn, long handled, sock-aid at 06/23/2018 0945 Toileting Goal Most Recent Value STG Status progressing at 06/24/2018 0850 STG Hammond Level minimum assist (75% patient effort), set up required, verbal cues r equired at 06/23/2018 0945 STG Assistive Device bariatric bedside commode, grab bar at 06/23/2018 0945 LTG Status progressing at 06/24/2018 0850 LTG Hammond Level contact guard assist at 06/23/2018 0945 LTG Assistive Device bariatric bedside commode, grab bar at 06/23/2018 0945 Toilet Transfer Goal Most Recent Value STG Status progressing at 06/24/2018 0850 STG Hammond Level contact guard assist at 06/23/2018 0945 STG Assistive Device bariatric, commode (3 in 1), grab bars at 06/23/2018 0945 LTG Status progressing at 06/24/2018 0850 LTG Hammond Level stand by assist at 06/23/2018 0945 LTG Assistive Device bariatric, commode (3 in 1), grab bars at 06/23/2018 0945 Tub/Shower Transfer Goal Most Recent Value Tub/Shower Type tub/shower combo at 06/23/2018 0945 STG Status new at 06/23/2018 0945 STG Hammond Level contact guard assist, set up required, verbal cues required at 12/2017 0945 STG Assistive Device bariatric, tub bench, grab bars at 06/23/2018 0945 LTG Status new at 06/23/2018 0945 LTG Hammond Level stand by assist at 06/23/2018 0945 LTG Assistive Device bariatric, tub bench, grab bars at 06/23/2018 0945 Additional Goals #1 OT Most Recent Value STG Status new, progressing at 06/24/2018 1515 STG Pt will increase automatic L hand during fxl and ADL tasks by requiring Mod vc's at 1515 LTG Status new at 06/24/2018 1515 LTG Pt will increase automatic L hand during fxl and ADL tasks by requiring Min vc's at 1515 Electronically signed by: Choco Abreu OT, 06/24/2018 16:13 lan of Care - Chayito Soriano, Speech Pathologist - 06/24/2018 2:15 PM PDTProblem: Patient Care Overview (Adult) Goal: Care Team Goals & Evaluation PROBLEM-RELATED GOALS: 1. Ed will remain free from all falls and injuries through 07/04/18 2. Ed's skin will remain intact and any impairments will show signs of healing by 06/25/18 3. Ed will ambulated with FWW and physical therapy by 06/29/18 4. Ed will have no deterioration in his neuro assessment through 07/04/18 5. Ed will be continent of bowel and bladder and will not have any accidents through 6. Ed will have no s/sx of aspiration through 07/04/18 7. Pt will be Mod I in transfers and amb using bariatric FWW by 07/14/18. 8. Pt will tolerate dysphagia advanced foods and nectar thick liquids with no overt s/sx of airway compromise by 07/04/2018 STRATEGY TO ACHIEVE GOALS: 1. Perform purposeful rounding, ensure call light is within reach and provide supervision f or all OOB activity 2. Assist patient with repositioning in bed, perform incontinence care if needed and monito r for signs of skin breakdown 3. Encourage active participation in PT/OT 4. Perform neuro assessment Qshift and notify MD of any decline 5. Assist with toileting, encourage fluid intake for bowel and bladder function 6. Provide altered textures and thickened fluids and ensure patient is sitting upright for all oral intake - Full participation in PT session in functional mobility training. - Full participation in ST sessions RESTRAINT-RELATED GOALS: STRATEGIES TO ACHIEVE RESTRAINT GOALS: Therapy Plan of Care Missed Visit Note Patient Information Patient Name: Sarthak Nelson Date of : 1950 Age: 67 y.o. The patient was unable to be seen for today's scheduled visit due to nursing procedure this PM. Pt needing to void but unable to. ST began session with introducing OM/swallow exercise s, and nursing entered, needing to complete cath procedure. ST session ended early after sev eral minutes. Plan: Will see patient at next scheduled visit. Electronically signed by: Chayito Soriano Speech Pathologist, 06/24/2018 14:45 lan o f Erik - Angelica Ly, PT - 06/24/2018 1:47 PM PDTFormatting of this note might be differ ent from the original. Problem: Patient Care Overview (Adult) Goal: Care Team Goals & Evaluation PROBLEM-RELATED GOALS: 1. Ed will remain free from all falls and injuries through 07/04/18 2. Ed's skin will remain intact and any impairments will show signs of healing by 06/25/18 3. Ed will ambulated with FWW and physical therapy by 06/29/18 4. Ed will have no deterioration in his neuro assessment through 07/04/18 5. Ed will be continent of bowel and bladder and will not have any accidents through 6. Ed will have no s/sx of aspiration through 07/04/18 7. Pt will be Mod I in transfers and amb using bariatric FWW by 07/14/18. 8. Pt will tolerate dysphagia advanced foods and nectar thick liquids with no overt s/sx of airway compromise by 07/04/2018 STRATEGY TO ACHIEVE GOALS: 1. Perform purposeful rounding, ensure call light is within reach and provide supervision f or all OOB activity 2. Assist patient with repositioning in bed, perform incontinence care if needed and monito r for signs of skin breakdown 3. Encourage active participation in PT/OT 4. Perform neuro assessment Qshift and notify MD of any decline 5. Assist with toileting, encourage fluid intake for bowel and bladder function 6. Provide altered textures and thickened fluids and ensure patient is sitting upright for all oral intake - Full participation in PT session in functional mobility training. - Full participation in ST sessions RESTRAINT-RELATED GOALS: STRATEGIES TO ACHIEVE RESTRAINT GOALS: Outcome: Improving IRF Physical Therapy Plan of Care Treatment Note Summary: Sarthak has been participating in physical therapy for treatment of Impaired bal ance, gait instability, (L) sided neglect, (L) zena paresis who was admitted d/t CVA. 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 Hx of previous C VA affecting (R) side.. Emphasis of session included bed mobility, gait and transfer train ing. Pt required seated rest periods d/t fatigue. Patient demonstrates progress towards fun ctional goals as evidenced by improving tolerance for walking . Remaining barriers to disch arge and functional limitations include decreased insight into safety and deficits, decrease d functional activity tolerance, decreased bed mobility, decreased functional transfers, dec reased functional gait distance, decreased gait velocity, demonstrating need for 24/7 superv ision, not yet able to mobilize at level safe for home discharge, AMPAC indicating significa nt impairment with basic functional mobility and medical status. Sarthak will benefit from continued therapeutic intervention to address ongoing impairments and increase safety and independence with activities necessary for safe discharge. Refer be low for specific details regarding functional levels. Physical Therapy Discharge Recommendations are: Recommended discharge disposition: home with assist Post discharge physical therapy recommendation: home health Equipment Recommendations: bariatric, 2 wheeled walker (FWW) Planned Interventions: balance training, bed mobility training, gait training, home exerci se program, lumbar stabilization, manual therapy techniques, motor coordination training, st air training, strengthening, ROM (Range of Motion), postural re-education, patient/family ed ucation, neuromuscular re-education, transfer training, wheelchair management/propulsion tra ining Frequency: daily (1-2x/day) Patient Status/Goals: Reflects last filed data and may be from multiple contributors. Bed Mobility extra time and effort, verbal cues for inc. attention on (L) UE/LE Assistive Device: bed rails, HOB elevated, overhead trapeze Roll Left, Level of Hammond: stand by assist, verbal cues required Roll Right, Level of [place]: stand by assist, verbal cues required Scoot/Bridge, Level of Hammond: verbal cues required, minimal assist (75% patient effo rt) Supine to Sit, Level of Hammond: stand by assist, verbal cues required Sit to Supine, Level of Hammond: stand by assist, verbal cues required Safety Issues: decreased use of arms for pushing/pulling, decreased use of legs for bridgin g/pushing, impaired trunk control for bed mobility Impairments: muscle tone abnormal, decreased flexibility, strength decreased, impaired demi nce, coordination impaired, motor control impaired, postural control impaired, sensory feedb ack impaired, pain Transfers had an episode of LOB transferring to the toilet d/t inattention to (L) hand and leg. Need assistance to recover balance. Verbal cues for hand placement and attention to (L) side. Bed-Chair, Level of Hammond: verbal cues required, 2 person assist required, minimal a ssist (75% patient effort) Chair-Bed, Level of Hammond: verbal cues required, 2 person assist required, minimal a ssist (75% patient effort), set up required [id number]-Uvi, Assistive Device: 2 wheeled walker (FWW), bariatric Sit-Stand, Level of Hammond: verbal cues required, minimal assist (75% patient effort) , 2 person assist required, set up required Stand-Sit, Level of Hammond: verbal cues required, 2 person assist required, minimal a ssist (75% patient effort) Tsh-Hurcu-Aej, Assistive Device: bariatric, 2 wheeled walker (FWW) Safety Issues: balance decreased during turns, sequencing ability decreased, weight-shiftin g ability decreased, step length decreased, loses balance backward Impairments: muscle tone abnormal, ROM decreased, strength decreased, impaired balance, cooker meal rdination impaired, motor control impaired, postural control impaired, sensory feedback impa ired Gait Used mirror to provide visual feedback for inc.step width and toe clearance on (L). pt danelle ids looking in the mirror but agreeable to use it. Level of Hammond: set up required, verbal cues required, 1 person + 1 person to manage equipment, tactile cues required, 2 person assist required, minimal assist (75% patient eff ort) Assistive Device: 2 wheeled walker (FWW), bariatric Distance (feet): 15' + 20'+ 10' Gait Deviations: alize decreased, double stance time increased, limb motion velocity decr eased, eif-ju-dckhu clearance decreased, step length decreased, weight-shifting ability decr eased, viihd-ho-iukwvp ratio decreased Safety Issues: balance decreased during turns, sequencing ability decreased, step length de creased, weight-shifting ability decreased Impairments: pain, strength decreased, impaired balance, coordination impaired, motor contr ol impaired, ROM decreased, sensation decreased, decreased flexibility, postural control imp aired Balance gait velocity= 0.2 m/sec. Gait Velocity: Sarthak scored 0.2 meters/seconds on the Gait Velocity Test (with Front-wheeled walker), ind icating he is a fall risk. Interpretation: - Need for fall risk intervention > 1.0 m/s less likely to have adverse event < 1.0 m/s needs intervention to reduce fall risk - Ambulation Categories Household < 0.4 m/s Limited community ambulator 0.4 m/s to 0.8 m/s Community ambulator 0.8 m/s to 1.2 m/s Speed needed to cross street with normal walking speed > 1.2 or 1.4 m/s For more information, please visit: [email or web address] PT Goal Review Date Most Recent Value STG Review Date 06/30/18 at 06/23/2018 0915 LTG Review Date 07/14/18 at 06/23/2018 0915 Mzckrx-Jzm-Unaaba Goal Most Recent Value STG Status progressing at 06/24/2018 1347 STG [place] Level supervised at 06/23/2018 0915 STG Assistive Device bed rails, overhead trapeze at 06/23/2018 0915 LTG Status new at 06/23/2018 0915 LTG [place] Level modified independent at 06/23/2018 0915 LTG Assistive Device bed rails, overhead trapeze at 06/23/2018 0915 Trf-Jqxrb-Xox Goal Most Recent Value STG Status progressing at 06/24/2018 1347 STG [place] Level contact guard assist at 06/23/2018 0915 STG Assistive Device 2 wheeled walker (FWW), bariatric at 06/23/2018 0915 LTG Status new at 06/23/2018 0915 LTG [place] Level modified independent at 06/23/2018 0915 LTG Assistive Device 2 wheeled walker (FWW), bariatric, 4 wheeled walker (4WW) at 06/23/20 18 0915 Gait Goal Most Recent Value STG Status progressing at 06/24/2018 1347 STG [place] Level contact guard assist at 06/23/2018 0915 STG Assistive Device bariatric, 2 wheeled walker (FWW) at 06/23/2018 0915 STG Comments 50' at 06/23/2018 0915 LTG Status new at 06/23/2018 0915 LTG [place] Level modified independent at 06/23/2018 0915 LTG Assistive Device 2 wheeled walker (FWW), bariatric, 4 wheeled walker (4WW) at 06/23/20 18 0915 LTG Distance (feet) 50' x 3 at 06/23/2018 0915 LTG Comments ramps at 06/23/2018 0915 Electronically signed by: ANGELICA LY, PT, 06/24/2018 16:20 lan of Erik - Aileen Helms, CURB ATTENDANT - 06/24/2018 12:22 PM PDT Problem: Patient Care Overview (Adult) Goal: Care Team Goals & Evaluation PROBLEM-RELATED GOALS: 1. Ed will remain free from all falls and injuries through 07/04/18 2. Ed's skin will remain intact and any impairments will show signs of healing by 06/25/18 3. Ed will ambulated with FWW and physical therapy by 06/29/18 4. Ed will have no deterioration in his neuro assessment through 07/04/18 5. Ed will be continent of bowel and bladder and will not have any accidents through 6. Ed will have no s/sx of aspiration through 07/04/18 7. Pt will be Mod I in transfers and amb using bariatric FWW by 07/14/18. 8. Pt will tolerate dysphagia advanced foods and nectar thick liquids with no overt s/sx of airway compromise by 07/04/2018 STRATEGY TO ACHIEVE GOALS: 1. Perform purposeful rounding, ensure call light is within reach and provide supervision f or all OOB activity 2. Assist patient with repositioning in bed, perform incontinence care if needed and monito r for signs of skin breakdown 3. Encourage active participation in PT/OT 4. Perform neuro assessment Qshift and notify MD of any decline 5. Assist with toileting, encourage fluid intake for bowel and bladder function 6. Provide altered textures and thickened fluids and ensure patient is sitting upright for all oral intake - Full participation in PT session in functional mobility training. - Full participation in ST sessions RESTRAINT-RELATED GOALS: STRATEGIES TO ACHIEVE RESTRAINT GOALS: Outcome: Improving IRF Physical Therapy Plan of Care Treatment Note Summary: Sarthak has been participating in physical therapy for treatment of Impaired bal ance, gait instability, (L) sided neglect, (L) zena paresis who was admitted d/t CVA. 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 Hx of previous C VA affecting (R) side.. Emphasis of session included functional mobility and activity tammi burgess with focus on gait training:// bars-forward, backward, side to side. Patient's attitu de was much improved today. He responded well to telling stories about his many fractures. Joking around. Patient demonstrates progress towards functional goals as evidenced by prog ress with gait training, transfer training. Remaining barriers to discharge and functional limitations include decreased insight into safety and deficits, decreased functional activit y tolerance, decreased bed mobility, decreased functional transfers, decreased functional ga it distance, decreased gait velocity, unsafe discharge disposition and not yet able to mobil ize at level safe for home discharge. Edward will benefit from continued therapeutic intervention to address ongoing impairments and increase safety and independence with activities necessary for safe discharge. Refer be low for specific details regarding functional levels. Physical Therapy Discharge Recommendations are: Recommended discharge disposition: home with assist Post discharge physical therapy recommendation: home health Equipment Recommendations: bariatric, 2 wheeled walker (FWW) Planned Interventions: balance training, bed mobility training, gait training, home exerci se program, lumbar stabilization, manual therapy techniques, motor coordination training, st air training, strengthening, ROM (Range of Motion), postural re-education, patient/family ed ucation, neuromuscular re-education, transfer training, wheelchair management/propulsion tra ining Frequency: daily (1-2x/day) Patient Status/Goals: Reflects last filed data and may be from multiple contributors. Bed Mobility extra time and effort, able to get to EOB with Min A to rLE Assistive Device: bed rails, HOB elevated, overhead trapeze Roll Left, Level of Hammond: not tested Roll Right, Level of Hammond: contact guard assist, set up required, verbal cues requi red, tactile cues required Scoot/Bridge, Level of [place]: verbal cues required, tactile cues required, stand by assist Supine to Sit, Level of Hammond: contact guard assist, set up required, verbal cues re quired, tactile cues required Sit to Supine, Level of Hammond: not tested Safety Issues: decreased use of arms for pushing/pulling, decreased use of legs for bridgin g/pushing, impaired trunk control for bed mobility Impairments: muscle tone abnormal, decreased flexibility, strength decreased, impaired demi nce, coordination impaired, motor control impaired, postural control impaired, sensory feedb ack impaired, pain Transfers Min A-allow patient to count and rock. Assistance to R hand on FWW Bed-Chair, Level of Hammond: not tested Chair-Bed, Level of Hammond: not tested Xrp-Jdyjx-Xss, Assistive Device: 2 wheeled walker (FWW), wheelchair Sit-Stand, Level of Hammond: contact guard assist, 2 person assist required, set up re quired Stand-Sit, Level of [place]: contact guard assist, 2 person assist required, verbal cu es required Drr-Djjdg-Drv, Assistive Device: 2 wheeled walker (FWW), bariatric Safety Issues: balance decreased during turns, sequencing ability decreased, step length de creased, weight-shifting ability decreased Impairments: muscle tone abnormal, ROM decreased, sensation decreased, strength decreased, impaired balance, coordination impaired, motor control impaired, postural control impaired Gait // bars: gait training forward, backward, side to side with assistance to right hand, w/c t o follow Level of Hammond: minimal assist (75% patient effort), 2 person assist required, verba l cues required Assistive Device: 2 wheeled walker (FWW) Distance (feet): 10 lengths of // bars total Gait Deviations: alize decreased, double stance time increased, limb motion velocity decr eased, zvp-pl-cakhi clearance decreased, step length decreased, weight-shifting ability decr eased, ifqzr-ji-ktlsbd ratio decreased Safety Issues: balance decreased during turns, sequencing ability decreased, step length de creased, weight-shifting ability decreased Impairments: pain, strength decreased, impaired balance, coordination impaired, motor contr ol impaired, ROM decreased, sensation decreased, decreased flexibility, postural control imp aired Balance initial balance during walking-listing to right, better after reps Sitting Balance: Static: good balance Sitting Balance: Dynamic: good balance Standing Balance: Static: poor balance Standing Balance: Dynamic: poor balance PT Goal Review Date Most Recent Value STG Review Date 06/30/18 at 06/23/201815 LTG Review Date 07/14/18 at 06/23/2018 0915 Uyezuy-Emz-Ljwqzq Goal Most Recent Value STG Status progressing at 06/24/2018 1132 STG [place] Level supervised at 06/23/2018 0915 STG Assistive Device bed rails, overhead trapeze at 06/23/2018 0915 LTG Status new at 06/23/2018 0915 LTG [place] Level modified independent at 06/23/2018 0915 LTG Assistive Device bed rails, overhead trapeze at 06/23/2018 0915 Mnt-Bifge-Fyn Goal Most Recent Value STG Status progressing at 06/24/2018 1132 STG [place] Level contact guard assist at 06/23/2018 0915 STG Assistive Device 2 wheeled walker (FWW), bariatric at 06/23/2018 0915 LTG Status new at 06/23/201815 LTG [place] Level modified independent at 06/23/2018 0915 LTG Assistive Device 2 wheeled walker (FWW), bariatric, 4 wheeled walker (4WW) at 06/23/20 18 0915 Gait Goal Most Recent Value STG Status progressing at 06/24/2018 1132 STG [place] Level contact guard assist at 06/23/2018 0915 STG Assistive Device bariatric, 2 wheeled walker (FWW) at 06/23/2018 0915 STG Comments 50' at 06/23/2018 0915 LTG Status new at 06/23/2018 0915 LTG [place] Level modified independent at 06/23/2018 0915 LTG Assistive Device 2 wheeled walker (FWW), bariatric, 4 wheeled walker (4WW) at 06/23/20 18 0915 LTG Distance (feet) 50' x 3 at 06/23/2018 0915 LTG Comments ramps at 06/23/2018 0915 Electronically signed by: Aileen Helms PTA, 06/24/2018 12:19 lan of Care - Oliva Pacheco RN - 06/24/2018 11:30 AM PDTEd developed a non-raised rash to torso and butter fly rash to face approx 20-25min after oral meds given this am. Pt stated "It happens every morning after taking my pills, then it goes away after about 2 hrs." Rash resolved by [address] Salinas notified. No new meds given. Pt is taking same meds he takes at home.Electronic ally signed by Oliva Perez RN at 06/24/2018 1:34 PM PDTPlan of Care - Indira Mireles COTA - 06/24/2018 9:50 AM PDTFormatting of this note might be different from the shruthi donovan. Problem: Patient Care Overview (Adult) Goal: Care Team Goals & Evaluation PROBLEM-RELATED GOALS: 1. Ed will remain free from all falls and injuries through 07/04/18 2. Ed's skin will remain intact and any impairments will show signs of healing by 06/25/18 3. Ed will ambulated with FWW and physical therapy by 06/29/18 4. Ed will have no deterioration in his neuro assessment through 07/04/18 5. Ed will be continent of bowel and bladder and will not have any accidents through 6. Ed will have no s/sx of aspiration through 07/04/18 7. Pt will be Mod I in transfers and amb using bariatric FWW by 07/14/18. 8. Pt will tolerate dysphagia advanced foods and nectar thick liquids with no overt s/sx of airway compromise by 07/04/2018 STRATEGY TO ACHIEVE GOALS: 1. Perform purposeful rounding, ensure call light is within reach and provide supervision f or all OOB activity 2. Assist patient with repositioning in bed, perform incontinence care if needed and monito r for signs of skin breakdown 3. Encourage active participation in PT/OT 4. Perform neuro assessment Qshift and notify MD of any decline 5. Assist with toileting, encourage fluid intake for bowel and bladder function 6. Provide altered textures and thickened fluids and ensure patient is sitting upright for all oral intake - Full participation in PT session in functional mobility training. - Full participation in ST sessions RESTRAINT-RELATED GOALS: STRATEGIES TO ACHIEVE RESTRAINT GOALS: Outcome: Improving IRF Occupational Therapy Plan of Care Treatment Note Summary: Sarthak has been participating in occupational therapy for treatment of decrease d ADL performance, fxl mobility, activity tolerance, safety awareness s/p ischemic CGA, L si ded weakness. Emphasis of session included Morning ADL's with sponge bath, dress & groom an d toileting. Patient demonstrates progress towards functional goals as evidenced by Pt demo nstrated good carry over with grain oilseed or pasture farm worker this AM. Remaining barriers to discharge and function al limitations include decreased functional activity tolerance, decreased bed mobility, decr eased functional transfers, decreased ability to perform ADLs, decreased ability to perform IADLs, decreased ability to perform medication management, lives alone, demonstrating need f or 12/04 supervision, unsafe discharge disposition and not yet able to mobilize at level safe for home discharge. Sarthak will benefit from continued therapeutic intervention to address ongoing impairments and increase safety and independence with activities necessary for safe discharge. Refer be low for specific details regarding functional levels. Occupational Therapy Discharge Recommendations are: Recommended discharge disposition: home with assist, long-term facility Post discharge occupational therapy recommendation: will benefit from structured setting, home health Equipment Recommendations: bariatric, commode (3 in 1), long handled sponge, grain oilseed or pasture farm worker, sock aide Planned Interventions:ADL retraining, balance training, bed mobility training, motor coordi nation training, neuromuscular re-education, fine motor coordination training, ROM (Range of Motion), strengthening, transfer training Recommended Frequency: other (see comments) (rehab schedule) Patient Status/Goals: Reflects last filed data and may be from multiple contributors. ADLs Pt sitting EOB filling out menu. He is agreeable to work with OT this AM. Pt able to self direct care and did follow VC's appropriately to assist with self care tasks assist pt to use his R hand to lift panis on L and provided assist to clean R side under pa nis for thoroughness. Pt dependent for cleaning buttocks. Bathing, Level of Hammond: 1 person + 1 person to manage equipment, minimal assist (75 % patient effort) Assistive Device: none Bathing Assess/Train, Position: sitting, supported standing Bathing Assess/Train, Impairments: muscle tone abnormal, decreased flexibility, ROM decreas ed, sensation decreased, strength decreased, impaired balance, coordination impaired, motor control impaired, postural control impaired, sensory feedback impaired (body habitus) Pt doffed clod puller shirt w/o assist. Pt changed into hopital gown with Min A while shirt is being laundered. UB Dressing, Level of Hammond: minimal assist (75% patient effort), set up required, t actile cues required Assistive Device: none UB Dressing Assess/Train, Position: sitting UB Dressing Assess/Train, Impairments: muscle tone abnormal, decreased flexibility, ROM dec reased, sensation decreased, strength decreased, coordination impaired, motor control impair ed, postural control impaired, sensory feedback impaired pt demonstrating carry over assist with using grain oilseed or pasture farm worker for LB dressing. thread R LE w/o ass ist and required assist to get shorts unstuck from heal when attempting to pull them up to k nees. He also required assist to don clothing over hips. LB Dressing, Level of Hammond: 2 person assist required, verbal cues required, tactile cues required, set up required, moderate assist (50% patient effort) Assistive Device: grain oilseed or pasture farm worker LB Dressing Assess/Train, Position: sitting, supported standing LB Dressing Assess/Train, Impairments: muscle tone abnormal, decreased flexibility, ROM dec reased, sensation decreased, strength decreased, impaired balance, coordination impaired, mo tor control impaired, postural control impaired, sensory feedback impaired Pt continues to be dependent with toileting tasks Toileting, Level of Hammond: dependent ( less than 25% patient effort), 1 person + 1 p erson to manage equipment, set up required, verbal cues required, tactile cues required Assistive Device: grab bar Toileting Assess/Train, Position: supported standing Toileting Assess/Train, Impairments: decreased flexibility, ROM decreased, strength decreas ed, impaired balance, coordination impaired, motor control impaired, postural control impair ed (body habitus) Transfers 2P Min A, for R hand placement on FWW Bed-Chair, Level of Hammond: verbal cues required, 2 person assist required, minimal a ssist (75% patient effort) Chair-Bed, Level of [place]: verbal cues required, 2 person assist required, set up re quired, contact guard assist Dtr-Byrmy-Eyr, Assistive Device: 2 wheeled walker (FWW), bariatric, wheelchair Sit-Stand, Level of [place]: verbal cues required, minimal assist (75% patient effort) , 2 person assist required, set up required Stand-Sit, Level of [place]: verbal cues required, 2 person assist required, contact g uard assist Kkc-Uewmf-Icz, Assistive Device: bariatric, 2 wheeled walker (FWW) Toilet, Level of Hammond: set up required, verbal cues required, contact guard assist, 1 person + 1 person to manage equipment Toilet, Assistive Device: bariatric, 2 wheeled walker (FWW), grab bars Safety Issues: balance decreased during turns, sequencing ability decreased, weight-shiftin g ability decreased, step length decreased, loses balance backward Impairments: muscle tone abnormal, ROM decreased, strength decreased, impaired balance, cooker meal rdination impaired, motor control impaired, postural control impaired, sensory feedback impa ired OT Goal Review Date Most Recent Value STG Review Date 06/30/18 at 06/23/2018 0945 LTG Review Date 07/07/18 at 06/23/2018 0945 Grooming Goal Most Recent Value STG Status met at 06/24/2018 0850 STG Hammond Level minimum assist (75% patient effort) at 06/23/2018 0945 STG Position sitting in chair at 06/23/2018 0945 STG Adaptive Equipment none at 06/23/2018 0945 LTG Status progressing at 06/24/2018 0850 LTG Hammond Level stand by assist at 06/23/201845 LTG Position sitting in chair at 06/23/2018 0945 LTG Adaptive Equipment none at 06/23/2018 0945 Bathing Goal Most Recent Value STG Status progressing at 06/24/2018 0850 STG [place] Level minimum assist (75% patient effort), set up required, verbal cues r equired at 06/23/2018 0945 STG Adaptive Equpiment grab bars, shower head, detachable, sponge, long handled, tub bench with back at 06/23/2018 0945 STG Position sitting at 06/23/2018 0945 LTG Status progressing at 06/24/2018 0850 LTG Hammond Level contact guard assist at 06/23/2018 0945 LTG Adaptive Equpiment grab bars, shower head, detachable, sponge, long handled, tub bench with back at 06/23/2018 0945 LTG Position sitting at 06/23/2018 0945 UB Dressing Goal Most Recent Value STG Status progressing at 06/24/2018 0850 STG Hammond Level stand by assist, set up required at 06/23/201845 STG Adaptive Equipment none at 06/23/2018 0945 LTG Status progressing at 06/24/2018 0850 LTG Hammond Level supervised, set up required at 06/23/2018 0945 LTG Adaptive Equipment none at 06/23/2018 0945 LB Dressing Goal Most Recent Value STG Status progressing at 06/24/2018 0850 STG Hammond Level moderate assist (50% patient effort), set up required at 06/23/2018 0945 STG Adaptive Equipment grain oilseed or pasture farm worker, shoe horn, long handled, sock-aid at 06/23/2018 0945 LTG Status progressing at 06/24/2018 0850 LTG Hammond Level contact guard assist, set up required at 06/23/2018 0945 LTG Adaptive Equipment grain oilseed or pasture farm worker, shoe horn, long handled, sock-aid at 06/23/2018 0945 Toileting Goal Most Recent Value STG Status progressing at 06/24/2018 0850 STG Hammond Level minimum assist (75% patient effort), set up required, verbal cues r equired at 06/23/201845 STG Assistive Device bariatric bedside commode, grab bar at 06/23/2018 0945 LTG Status progressing at 06/24/2018 0850 LTG Hammond Level contact guard assist at 06/23/2018 0945 LTG Assistive Device bariatric bedside commode, grab bar at 06/23/2018 0945 Toilet Transfer Goal Most Recent Value STG Status progressing at 06/24/2018 0850 STG [place] Level contact guard assist at 06/23/2018 0945 STG Assistive Device bariatric, commode (3 in 1), grab bars at 06/23/2018 0945 LTG Status progressing at 06/24/2018 0850 LTG [place] Level stand by assist at 06/23/2018 0945 LTG Assistive Device bariatric, commode (3 in 1), grab bars at 06/23/2018 0945 Tub/Shower Transfer Goal Most Recent Value Tub/Shower Type tub/shower combo at 06/23/2018 0945 STG Status new at 06/23/2018 0945 STG Hammond Level contact guard assist, set up required, verbal cues required at 12/2017 0945 STG Assistive Device bariatric, tub bench, grab bars at 06/23/2018 0945 LTG Status new at 06/23/2018 0945 LTG Hammond Level stand by assist at 06/23/2018 0945 LTG Assistive Device bariatric, tub bench, grab bars at 06/23/2018 0945 Electronically signed by: JAYMIE Cuba, 06/24/2018 11:23 lan of Care - Be Nereyda figueroa, PARTS DEPARTMENT SUPERVISOR - 06/24/2018 5:17 AM PDTProblem: Patient Care Overview (Adult) Goal: Care Team Goals & Evaluation PROBLEM-RELATED GOALS: 1. Ed will remain free from all falls and injuries through 07/04/18 2. Ed's skin will remain intact and any impairments will show signs of healing by 06/25/18 3. Ed will ambulated with FWW and physical therapy by 06/29/18 4. Ed will have no deterioration in his neuro assessment through 07/04/18 5. Ed will be continent of bowel and bladder and will not have any accidents through 6. Ed will have no s/sx of aspiration through 07/04/18 7. Pt will be Mod I in transfers and amb using bariatric FWW by 07/14/18. 8. Pt will tolerate dysphagia advanced foods and nectar thick liquids with no overt s/sx of airway compromise by 07/04/2018 STRATEGY TO ACHIEVE GOALS: 1. Perform purposeful rounding, ensure call light is within reach and provide supervision f or all OOB activity 2. Assist patient with repositioning in bed, perform incontinence care if needed and monito r for signs of skin breakdown 3. Encourage active participation in PT/OT 4. Perform neuro assessment Qshift and notify MD of any decline 5. Assist with toileting, encourage fluid intake for bowel and bladder function 6. Provide altered textures and thickened fluids and ensure patient is sitting upright for all oral intake - Full participation in PT session in functional mobility training. - Full participation in ST sessions RESTRAINT-RELATED GOALS: STRATEGIES TO ACHIEVE RESTRAINT GOALS: Goal Evaluation: Edward oxygen saturation is SpO2: 95 % on 2liters/minute CPAP, home unit and a heart rate of 69. Breath sounds are clear, diminished and post breathing treatment b reath sounds are . Pt has a none cough. Pt's respirations are no shortness of breath report ed, depth regular, pattern regular, unlabored with expansion symmetric, no use of accessory muscles. lan of Care - Yessy Ling RN - 06/24/2018 3:30 AM PDTProblem: Patient Care Overview (Adult) Goal: Care Team Goals & Evaluation PROBLEM-RELATED GOALS: 1. Ed will remain free from all falls and injuries through 07/04/18 2. Ed's skin will remain intact and any impairments will show signs of healing by 06/25/18 3. Ed will ambulated with FWW and physical therapy by 06/29/18 4. Ed will have no deterioration in his neuro assessment through 07/04/18 5. Ed will be continent of bowel and bladder and will not have any accidents through 6. Ed will have no s/sx of aspiration through 07/04/18 7. Pt will be Mod I in transfers and amb using bariatric FWW by 07/14/18. 8. Pt will tolerate dysphagia advanced foods and nectar thick liquids with no overt s/sx of airway compromise by 07/04/2018 STRATEGY TO ACHIEVE GOALS: 1. Perform purposeful rounding, ensure call light is within reach and provide supervision f or all OOB activity 2. Assist patient with repositioning in bed, perform incontinence care if needed and monito r for signs of skin breakdown 3. Encourage active participation in PT/OT 4. Perform neuro assessment Qshift and notify MD of any decline 5. Assist with toileting, encourage fluid intake for bowel and bladder function 6. Provide altered textures and thickened fluids and ensure patient is sitting upright for all oral intake - Full participation in PT session in functional mobility training. - Full participation in ST sessions RESTRAINT-RELATED GOALS: STRATEGIES TO ACHIEVE RESTRAINT GOALS: Outcome: Improving Goal Evaluation: neuros remain unchanged and stable, voided when stood at bedside, makes needs known, no fal ls this shift, afebrile, vss. lan of Care - Karin Ferrara RN - 06/23/2018 5:24 PM PDTProblem: Patient Care Overview (Adult) Goal: Care Team Goals & Evaluation PROBLEM-RELATED GOALS: 1. Ed will remain free from all falls and injuries through 07/04/18 2. Ed's skin will remain intact and any impairments will show signs of healing by 06/25/18 3. Ed will ambulated with FWW and physical therapy by 06/29/18 4. Ed will have no deterioration in his neuro assessment through 07/04/18 5. Ed will be continent of bowel and bladder and will not have any accidents through 6. Ed will have no s/sx of aspiration through 07/04/18 7. Pt will be Mod I in transfers and amb using bariatric FWW by 07/14/18. 8. Pt will tolerate dysphagia advanced foods and nectar thick liquids with no overt s/sx of airway compromise by 07/04/2018 STRATEGY TO ACHIEVE GOALS: 1. Perform purposeful rounding, ensure call light is within reach and provide supervision f or all OOB activity 2. Assist patient with repositioning in bed, perform incontinence care if needed and monito r for signs of skin breakdown 3. Encourage active participation in PT/OT 4. Perform neuro assessment Qshift and notify MD of any decline 5. Assist with toileting, encourage fluid intake for bowel and bladder function 6. Provide altered textures and thickened fluids and ensure patient is sitting upright for all oral intake - Full participation in PT session in functional mobility training. - Full participation in ST sessions RESTRAINT-RELATED GOALS: STRATEGIES TO ACHIEVE RESTRAINT GOALS: Outcome: Unchanged Goal Evaluation: Ed is A & O x 4. Speech is slurred and needs extra time for responses. Cooperative with ca res today. Denies any pain. No changes in neuro assessment. Left facial droop, left devia tion of tongue, Left arm ataxia and 3/5 strength with very mild resistance against gravity. LLE 4/5. Reports chronic numbness x 4 extremities. One un-measured void, PVR 389, continue to monitor. Bowel movement today. Swallowing pills with applesauce and food with no s/sx of aspiration. VSS. Two small venous ulcers to E, Aquacel AG, and Miriplex dressing applie d. Wound consult ordered to update wound care dressing order. BLE are shreyas in color, with Moderate edema. Bed alarm in place for safety, calls appropriately for needs, hourly round ing in place. lan of Care - Иван Soriano, Speech Pathologist - 06/23/2018 3:40 PM PDTFormatting of this note might be differe nt from the original. Problem: Patient Care Overview (Adult) Goal: Care Team Goals & Evaluation PROBLEM-RELATED GOALS: 1. Ed will remain free from all falls and injuries through 07/04/18 2. Ed's skin will remain intact and any impairments will show signs of healing by 06/25/18 3. Ed will ambulated with FWW and physical therapy by 06/29/18 4. Ed will have no deterioration in his neuro assessment through 07/04/18 5. Ed will be continent of bowel and bladder and will not have any accidents through 6. Ed will have no s/sx of aspiration through 07/04/18 7. Pt will be Mod I in transfers and amb using bariatric FWW by 07/14/18. 8. Pt will tolerate dysphagia advanced foods and nectar thick liquids with no overt s/sx of airway compromise by 07/04/2018 STRATEGY TO ACHIEVE GOALS: 1. Perform purposeful rounding, ensure call light is within reach and provide supervision f or all OOB activity 2. Assist patient with repositioning in bed, perform incontinence care if needed and monito r for signs of skin breakdown 3. Encourage active participation in PT/OT 4. Perform neuro assessment Qshift and notify MD of any decline 5. Assist with toileting, encourage fluid intake for bowel and bladder function 6. Provide altered textures and thickened fluids and ensure patient is sitting upright for all oral intake - Full participation in PT session in functional mobility training. 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 With history of IDDM, HTN, CKD, HIV. He is alert and oriented x4. He was upset with being disturbed from his rest. INTERACTIVE MEDIA MARKETING STRATEGIST engaged pt in education of IRF and partic ipation. Although he was not happy about being in session, he was agreeable to participate i n ST. Oral motor exam revealed left side droop. Reduced lip/tongue strengthen/ROM. Poor oral cares. Coating on tongue. Per OT report, he refuses to clean his tongue. Pt is edentulous. He reported he has dentures at home but refuses to wear them due to poor fit. He was challen ged with pureed, soft ground, soft chopped, regular meats, dry bread. Also with thin liquids and nectar thick via cup. Excess chewing noted with dry bread and mild excess chewing noted with regular meat. Missing dentition impacting ability to chew some foods. No overt immedia te or delayed s/sx of airway compromise noted with trials of solids. Pt did report feeling l geraldine the regular meat and dry bread felt stuck- and pointed to upper esophageal area. A liqui d wash cleared bolus. Trialed thin liquids via cup using small bolus, chin tuck, 3 second ho ld, and effortful swallow. Pt had difficulty following commands to use strategies. Coughing noted with thin liquids trialing 3 second hold. Chin tuck successful but with inconsistent u se. No overt s/sx of airway compromise noted with nectar thick liquids. INTERACTIVE MEDIA MARKETING STRATEGIST educated pt on d iet recommendations, importance of modified diet for improved swallow and safety, compensato ry strategies. ST to complete full cog/comm assessment in upcoming sessions. Pt with poor fo llow through of recommendations. ST recommends 1:1 RED TRAY for supervision to facilitate in creased use of compensatory strategies. Dysphagia advanced foods. Extra sauces and gravies. Soft tender fruits and vegetables. Moist breads, No tough hard crunchy raw foods. Harrold thi ck liquids by cup only. Water protocol between meals only. Sit up in chair for all meals. Sm all bites/sips. Slow pacing. Alternate liquids/solids. Single bites/sips. Oral cares after e very meal. Encourage to brush tongue. Speech Language Pathology Discharge Recommendations are: Recommended discharge disposition: (TBD) Post discharge speech language pathology recommendation: continue INTERACTIVE MEDIA MARKETING STRATEGIST tx for dysphagia Planned Interventions: compensatory strategies, patient/caregiver education, swallow exerc ises, oral motor exercise, diet texture modification Recommended Frequency: 4 times/wk Patient Status/Goals: Reflects last filed data and may be from multiple contributors. Swallow Recommendations Recommended Solid Texture: dysphagia advanced Recommended Liquid Texture: nectar thick liquids, water protocol (Water protocol between me als only) Recommended Medication Delivery: whole pills with thickened liquids, whole pills with puree , crushed pills with puree, if able Recommended Feeding/Eating Techniques: alternate between small bites and sips of food/liqui d, oral care before and after each meal, maintain upright posture during/after eating for 30 mins, one small sip or bite at a time, slow rate, tuck chin during every swallow Swallow RED TRAY for good tray set up and supervision to follow compensatory strategies for improve d swallow. Dysphagia advanced foods Harrold thick liquids during meals. Water protocol between meals only Cognitive Orientation: oriented x 4 Speech: slurred Follows Commands/Answers Questions: able to follow multi-step instructions Decreased insight into severity of deficits Verbal Expression Slurred. Decreased speech intelligibility. Cognition Goal Most Recent Value STG Status new at 06/23/2018 153 STG Pt will participate in full cognitive/com assessment to determine cause severity and update POC. at 06/23/2018 153 Solid Texture Goal Most Recent Value STG Status new at 06/23/2018 1534 STG Pt will tolerate dysphagia advanced foods with no overt s/sx of airway compromise at 06/23/2018 153 LTG Status new at 06/23/2018 1534 LTG Pt will tolerate dental soft foods cut up with no overt s/sx of airway compromise at 1 1534 Liquid Texture Goal Most Recent Value STG Status new at 06/23/2018 1534 STG Pt will tolerate nectar thick liquids by cup/straw with no s/sx of airway compromise a t 06/23/2018 1534 LTG Status new at 06/23/2018 1534 LTG Pt will tolerate thin liquids by cup with no overt s/sx of airway compromise at 2017 1534 Additional Goals #1 INTERACTIVE MEDIA MARKETING STRATEGIST Most Recent Value STG Status new at 06/23/2018 1534 STG Pt will complete oral motor exercises for improved facial droop with 75% accuracy and min cues. at 06/23/2018 1534 Electronically signed by: Chayito Soriano Speech Pathologist, 06/23/2018 16:05 lan o f Care - Choco Abreu, OT - 06/23/2018 2:30 PM PDTFormatting of this note might be diffe rent from the original. Problem: Patient Care Overview (Adult) Goal: Care Team Goals & Evaluation PROBLEM-RELATED GOALS: 1. Ed will remain free from all falls and injuries through 07/04/18 2. Ed's skin will remain intact and any impairments will show signs of healing by 06/25/18 3. Ed will ambulated with FWW and physical therapy by 06/29/18 4. Ed will have no deterioration in his neuro assessment through 07/04/18 5. Ed will be continent of bowel and bladder and will not have any accidents through 6. Ed will have no s/sx of aspiration through 07/04/18 7. Pt will be Mod I in transfers and amb using bariatric FWW by 07/14/18. 8. Pt will tolerate dysphagia advanced foods and nectar thick liquids with no overt s/sx of airway compromise by 07/04/2018 STRATEGY TO ACHIEVE GOALS: 1. Perform purposeful rounding, ensure call light is within reach and provide supervision f or all OOB activity 2. Assist patient with repositioning in bed, perform incontinence care if needed and monito r for signs of skin breakdown 3. Encourage active participation in PT/OT 4. Perform neuro assessment Qshift and notify MD of any decline 5. Assist with toileting, encourage fluid intake for bowel and bladder function 6. Provide altered textures and thickened fluids and ensure patient is sitting upright for all oral intake - Full participation in PT session in functional mobility training. - Full participation in ST sessions RESTRAINT-RELATED GOALS: STRATEGIES TO ACHIEVE RESTRAINT GOALS: Outcome: Unchanged IRF Occupational Therapy Plan of Care Treatment Note Summary: Sarthak has been participating in occupational therapy for treatment of decrease d ADL performance, fxl mobility, activity tolerance, safety awareness s/p ischemic CGA, L si ded weakness. Emphasis of session included toileting, toilet t/f, and grooming seated at EO B. Patient demonstrates progress towards functional goals as evidenced by participating in tx. Pt agitated this tx session stating that he did not get enough sleep. Pt would occasiona l yell profanities and throw objects at the ground such as dressing stick and packet of wipe s. Pt did not harm self or therapist. Pt appeared unwilling to cooperate during session, req uiring assist for ADLs. Vc's throughout for safety and sequencing for fxl t/fs. Remaining b arriers to discharge and functional limitations include decreased insight into safety and de ficits, decreased functional activity tolerance, decreased bed mobility, decreased functiona l transfers, decreased ability to perform ADLs, decreased ability to perform IADLs, decrease d ability to perform medication management, demonstrating need for 24/7 supervision, not yet able to mobilize at level safe for home discharge and medical status. Sarthak will benefit from continued therapeutic intervention to address ongoing impairments and increase safety and independence with activities necessary for safe discharge. Refer be low for specific details regarding functional levels. Occupational Therapy Discharge Recommendations are: Recommended discharge disposition: home with assist, long-term facility Post discharge occupational therapy recommendation: will benefit from structured setting, home health Equipment Recommendations: bariatric, commode (3 in 1), long handled sponge, grain oilseed or pasture farm worker, sock aide Planned Interventions:ADL retraining, balance training, bed mobility training, motor coordi nation training, neuromuscular re-education, fine motor coordination training, ROM (Range of Motion), strengthening, transfer training Recommended Frequency: other (see comments) (rehab schedule) Patient Status/Goals: Reflects last filed data and may be from multiple contributors. ADLs Pt required assist with donning/doffing pants and pericare. Pt soiled pants, requiring ass ist with changing pants Toileting, Level of Hammond: dependent ( less than 25% patient effort), 1 person + 1 p erson to manage equipment, set up required, verbal cues required, tactile cues required Assistive Device: bariatric bedside commode Toileting Assess/Train, Position: sitting, supported standing Toileting Assess/Train, Impairments: decreased flexibility, ROM decreased, strength decreas ed, impaired balance, coordination impaired, motor control impaired, postural control impair ed (body habitus) Pt completed oral care (using mouthwash) seated at EOB, required assist to open container. Grooming, Level of Hammond: minimal assist (75% patient effort), set up required, verb al cues required, tactile cues required Assistive Device: none Grooming Assess/Train, Position: sitting Grooming Assess/Train, Impairments: ROM decreased, sensation decreased, strength decreased, postural control impaired, motor control impaired, coordination impaired Functional Endurance Poor, pt agitated and fatigued Cognitive Pt agitated and angry during session d/t pt reports not getting enough rest. Pt seen throwi ng objects such as packet of wipes and dressing stick, however did not harm self or therapis t. Pt required encouragement to calm self and direct instructions to cooperate during tx Mood/Behavior: agitated, angry, withdrawn Orientation: oriented x 4 Bed Mobility CGA/Min A with 2p d/t fatigue and decreased willingness to cooperate. Pt agitated during se ssion, and at times seen impulsive with bed mobility, pt leaning back quickly requiring assi st to prevent head from hitting bed rail. Assistive Device: bed rails, overhead trapeze, HOB elevated Roll Right, Level of Hammond: verbal cues required, tactile cues required, contact gua rd assist, 2 person assist required Scoot/Bridge, Level of Hammond: verbal cues required, tactile cues required, 2 person assist required, minimal assist (75% patient effort) Supine to Sit, Level of Hammond: minimal assist (75% patient effort), set up required, verbal cues required, tactile cues required, 2 person assist required Sit to Supine, Level of Hammond: verbal cues required, tactile cues required, minimal assist (75% patient effort), 2 person assist required Safety Issues: decreased use of arms for pushing/pulling, decreased use of legs for bridgin g/pushing, impaired trunk control for bed mobility Impairments: decreased flexibility, ROM decreased, strength decreased, impaired balance, co ordination impaired, motor control impaired, postural control impaired, sensory feedback imp aired, muscle tone abnormal Transfers 2P Min A, vc's for body positioning, sequencing, technique, and hand placement. BSC placed next to bed d/t pt unwilling to mobilize to bathroom and d/t fatigue Sit-Stand, Level of Hammond: verbal cues required, minimal assist (75% patient effort) , 2 person assist required, set up required Stand-Sit, Level of Hammond: verbal cues required, 2 person assist required, minimal a ssist (75% patient effort) [id number], Assistive Device: bariatric, 2 wheeled walker (FWW) Toilet, Level of Hammond: 2 person assist required, set up required, verbal cues requi red, minimal assist (75% patient effort) Toilet, Assistive Device: bariatric, 2 wheeled walker (FWW), commode (3 in 1) Safety Issues: balance decreased during turns, sequencing ability decreased, weight-shiftin g ability decreased, step length decreased, loses balance backward Impairments: muscle tone abnormal, ROM decreased, strength decreased, impaired balance, cooker meal rdination impaired, motor control impaired, postural control impaired, sensory feedback impa ired OT Goal Review Date Most Recent Value STG Review Date 06/30/18 at 06/23/2018 0945 LTG Review Date 07/07/18 at 06/23/2018 0945 Grooming Goal Most Recent Value STG Status progressing at 06/23/2018 1405 STG Hammond Level minimum assist (75% patient effort) at 06/23/2018 0945 STG Position sitting in chair at 06/23/2018 0945 STG Adaptive Equipment none at 06/23/2018 0945 LTG Status new at 06/23/2018 0945 LTG Hammond Level stand by assist at 06/23/2018 0945 LTG Position sitting in chair at 06/23/2018 0945 LTG Adaptive Equipment none at 06/23/2018 0945 Bathing Goal Most Recent Value STG Status new at 06/23/2018 0945 STG Hammond Level minimum assist (75% patient effort), set up required, verbal cues r equired at 06/23/2018 09 STG Adaptive Equpiment grab bars, shower head, detachable, sponge, long handled, tub bench with back at 06/23/2018 0945 STG Position sitting at 06/23/2018 0945 LTG Status new at 06/23/2018 0945 LTG [place] Level contact guard assist at 06/23/2018 0945 LTG Adaptive Equpiment grab bars, shower head, detachable, sponge, long handled, tub bench with back at 06/23/2018944 LTG Position sitting at 06/23/2018944 UB Dressing Goal Most Recent Value STG Status new at 06/23/2018944 STG Hammond Level stand by assist, set up required at 06/23/2018944 STG Adaptive Equipment none at 06/23/2018944 LTG Status new at 06/23/2018944 LTG [place] Level supervised, set up required at 06/23/2018944 LTG Adaptive Equipment none at 06/23/2018944 LB Dressing Goal Most Recent Value STG Status new at 06/23/2018944 STG [place] Level moderate assist (50% patient effort), set up required at 06/23/2018944 STG Adaptive Equipment grain oilseed or pasture farm worker, shoe horn, long handled, sock-aid at 06/23/2018944 LTG Status new at 06/23/2018944 LTG Hammond Level contact guard assist, set up required at 06/23/2018944 LT Adaptive Equipment grain oilseed or pasture farm worker, shoe horn, long handled, sock-aid at 06/23/2018944 Toileting Goal Most Recent Value STG Status progressing at 06/23/2018 1405 STG [place] Level minimum assist (75% patient effort), set up required, verbal cues r equired at 06/23/2018944 STG Assistive Device bariatric bedside commode, grab bar at 06/23/2018944 LTG Status new at 06/23/2018944 LTG [place] Level contact guard assist at 06/23/2018944 LT Assistive Device bariatric bedside commode, grab bar at 06/23/2018944 Toilet Transfer Goal Most Recent Value STG Status progressing at 06/23/2018 1405 STG [place] Level contact guard assist at 06/23/2018944 STG Assistive Device bariatric, commode (3 in 1), grab bars at 06/23/2018944 LTG Status new at 06/23/2018944 LTG [place] Level stand by assist at 06/23/2018944 LTG Assistive Device bariatric, commode (3 in 1), grab bars at 06/23/2018944 Tub/Shower Transfer Goal Most Recent Value Tub/Shower Type tub/shower combo at 06/23/2018 0945 STG Status new at 06/23/2018 0945 STG [place] Level contact guard assist, set up required, verbal cues required at 12/2017 0945 STG Assistive Device bariatric, tub bench, grab bars at 06/23/2018 0945 LTG Status new at 06/23/2018 0945 LTG [place] Level stand by assist at 06/23/2018 0945 LTG Assistive Device bariatric, tub bench, grab bars at 06/23/2018 0945 Electronically signed by: Choco Abreu OT, 06/23/2018 17:12 lan of Care - Angelica Ly, PT - 06/23/2018 1:00 PM PDTProblem: Patient Care Overview (Adult) Goal: Care Team Goals & Evaluation PROBLEM-RELATED GOALS: 1. Ed will remain free from all falls and injuries through 07/04/18 2. Ed's skin will remain intact and any impairments will show signs of healing by 06/25/18 3. Ed will ambulated with FWW and physical therapy by 06/29/18 4. Ed will have no deterioration in his neuro assessment through 07/04/18 5. Ed will be continent of bowel and bladder and will not have any accidents through 6. Ed will have no s/sx of aspiration through 07/04/18 7. Pt will be Mod I in transfers and amb using bariatric FWW by 07/14/18. 8. Pt will tolerate dysphagia advanced foods and nectar thick liquids with no overt s/sx of airway compromise by 07/04/2018 STRATEGY TO ACHIEVE GOALS: 1. Perform purposeful rounding, ensure call light is within reach and provide supervision f or all OOB activity 2. Assist patient with repositioning in bed, perform incontinence care if needed and monito r for signs of skin breakdown 3. Encourage active participation in PT/OT 4. Perform neuro assessment Qshift and notify MD of any decline 5. Assist with toileting, encourage fluid intake for bowel and bladder function 6. Provide altered textures and thickened fluids and ensure patient is sitting upright for all oral intake - Full participation in PT session in functional mobility training. - Full participation in ST sessions RESTRAINT-RELATED GOALS: STRATEGIES TO ACHIEVE RESTRAINT GOALS: Therapy Plan of Care Missed Visit Note Patient Information Patient Name: Sarthak Nelson Date of : 1950 Age: 67 y.o. The patient was unable to be seen for today's scheduled visit due to pt declined to work wi th PT d/t fatigue. Plan: cont. PT Electronically signed by: ANGELICA LY, PT, 06/23/2018 16:55 lan of Care - Choco Abreu OT - 06/23/2018 12:06 PM PDTFormatting of this note might be different from the or iginal. Problem: Patient Care Overview (Adult) Goal: Care Team Goals & Evaluation PROBLEM-RELATED GOALS: 1. Ed will remain free from all falls and injuries through 07/04/18 2. Ed's skin will remain intact and any impairments will show signs of healing by 06/25/18 3. Ed will ambulated with FWW and physical therapy by 06/29/18 4. Ed will have no deterioration in his neuro assessment through 07/04/18 5. Ed will be continent of bowel and bladder and will not have any accidents through 6. Ed will have no s/sx of aspiration through 07/04/18 7. Pt will be Mod I in transfers and amb using bariatric FWW by 07/14/18. 8. Pt will tolerate dysphagia advanced foods and nectar thick liquids with no overt s/sx of airway compromise by 07/04/2018 STRATEGY TO ACHIEVE GOALS: 1. Perform purposeful rounding, ensure call light is within reach and provide supervision f or all OOB activity 2. Assist patient with repositioning in bed, perform incontinence care if needed and monito r for signs of skin breakdown 3. Encourage active participation in PT/OT 4. Perform neuro assessment Qshift and notify MD of any decline 5. Assist with toileting, encourage fluid intake for bowel and bladder function 6. Provide altered textures and thickened fluids and ensure patient is sitting upright for all oral intake - Full participation in PT session in functional mobility training. - Full participation in ST sessions RESTRAINT-RELATED GOALS: STRATEGIES TO ACHIEVE RESTRAINT GOALS: IRF Occupational Therapy Plan of Care Initial Evaluation, Treatment Note Summary: Sarthak presents to occupational therapy with decreased ADL performance, fxl mob ility, activity tolerance, safety awareness s/p ischemic CGA, L sided weakness. Objective e xam reveals impairments with aerobic capacity/endurance, gait, locomotion, and balance, ergo nomics and body mechanics, motor function, muscle performance, neuromotor, posture, sensory integration/regulation, social dynamics, integumentary integrity, arousal, attention, and co gnition, decreased ADL performance. Pt lives at home with spouse, though spouse is unable to care for pt d/t health issues. Pt reports having a caregiver that comes for 2 hours/5 times a week for bathing and dressing needs. Pt demonstrates the need for increased caregiver allison rs and 24/7 supervision d/t decreased functional activity and performance in ADLs. Barriers to discharge and functional limitations include decreased insight into safety and deficits, decreased functional activity tolerance, decreased bed mobility, decreased functional transf ers, decreased ability to perform BADLs, decreased ability to perform IADLs, decreased abili ty to perform medication management, demonstrating need for 24/7 supervision, not yet able t o mobilize at level safe for home discharge and medical status. Sarthak will benefit from therapeutic intervention to address impairments and increase safet y and independence with activities necessary for safe discharge. Refer below for specific d etails regarding functional levels. 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 Pt reports he cooks. Prefers being naked in the home. Pt reported he does not consistently used 4WW for ambulation and can walked around e house w/o AD. limited ambulator house to car only. Hx of falls. Potential available assistance at discharge: Significant Relationships: spouse Role Relationships Comment: Pt reports his 's health is not good. She would be unable to care for him if he requires increased assistance. Has caregiver 2 hrs/5 days a week for bathing and dressing Living Environment/Accessibility: Lives With: spouse Living Arrangements: house Home Accessibility: ramps present at home, grab bars present (bathtub) Living Environment Comment: Commode over toilet; has shower seat Patient/Family s Goals: "Go back home and do what I was doing before." Rehabilitation potential: fair, will monitor progress closely ADLs Mod A. Pt required assist to wash RUE, lower chest for thoroughness d/t folds and body habi tus, buttocks, and LLE. Pt washed RLE by propping on side of tub. Pt leaned forward using gr ab bar and required assist wash buttocks thoroughly. Bathing, Level of Hammond: moderate assist (50% patient effort), 1 person + 1 person t o manage equipment, set up required, verbal cues required, tactile cues required Assistive Device: grab bars, hand-held shower head, tub bench Bathing Assess/Train, Position: sitting Bathing Assess/Train, Impairments: muscle tone abnormal, decreased flexibility, ROM decreas ed, sensation decreased, strength decreased, impaired balance, coordination impaired, motor control impaired, postural control impaired Max A. Pt required assist to thread LUE and adjust in back. Pt given max vc's for technique , however refused to complete with technique and struggled to thread LUE. UB Dressing, Level of Hammond: maximal assist (25% patient effort), set up required, v erbal cues required, tactile cues required Assistive Device: none UB Dressing Assess/Train, Position: sitting UB Dressing Assess/Train, Impairments: muscle tone abnormal, decreased flexibility, ROM dec reased, sensation decreased, strength decreased, coordination impaired, motor control impair ed, postural control impaired Max A. Pt used grain oilseed or pasture farm worker to initiate threading LLE, however required assist to adjust clothin g over foot and assist with threading BLE completely. Pt initiated pulling up pants over hip s, however required assist to pull up fully. 2P steadying assist in standing. Pt required as sist to doff/don socks LB Dressing, Level of Hammond: 2 person assist required, verbal cues required, tactile cues required, set up required, maximal assist (25% patient effort) Assistive Device: grain oilseed or pasture farm worker LB Dressing Assess/Train, Position: sitting, supported standing LB Dressing Assess/Train, Impairments: muscle tone abnormal, decreased flexibility, ROM dec reased, sensation decreased, strength decreased, impaired balance, coordination impaired, mo tor control impaired, postural control impaired Functional Endurance Poor, fatigued throughout eval/tx Cognitive Mood/Behavior: calm Orientation: oriented x 4 Speech: slurred Bed Mobility CGA for rolling, Min A for scooting and sit <> supine with 2P. Pt very fatigued this tx ses javier and required cueing for correct sequencing and technique. Extra time and effort through out d/t body habitus and fatigue. Assistive Device: bed rails, overhead trapeze, HOB elevated Roll Right, Level of Hammond: verbal cues required, tactile cues required, contact gua rd assist, 2 person assist required Scoot/Bridge, Level of Hammond: verbal cues required, tactile cues required, contact g uard assist, 1 person + 1 person to manage equipment Supine to Sit, Level of Hammond: minimal assist (75% patient effort), set up required, verbal cues required, tactile cues required, 2 person assist required Sit to Supine, Level of Hammond: verbal cues required, tactile cues required, minimal assist (75% patient effort), 2 person assist required Safety Issues: decreased use of arms for pushing/pulling, decreased use of legs for bridgin g/pushing, impaired trunk control for bed mobility Impairments: decreased flexibility, ROM decreased, strength decreased, impaired balance, co ordination impaired, motor control impaired, postural control impaired, sensory feedback imp aired, muscle tone abnormal Transfers 2P Min A for all t/fs, vc's throughout for body positioning, sequencing, technique and hand placement. Vc's for L hand on FWW as pt seen letting go. Bed-Chair, Level of Hammond: verbal cues required, 2 person assist required, minimal a ssist (75% patient effort) Chair-Bed, Level of Hammond: verbal cues required, 2 person assist required, minimal a ssist (75% patient effort), set up required [id number], Assistive Device: 2 wheeled walker (FWW), bariatric Sit-Stand, Level of Hammond: verbal cues required, minimal assist (75% patient effort) , 2 person assist required, set up required Stand-Sit, Level of Hammond: verbal cues required, 2 person assist required, minimal a ssist (75% patient effort) [id number], Assistive Device: bariatric, 2 wheeled walker (FWW) Tub, Level of Hammond: minimal assist (75% patient effort), 2 person assist required, verbal cues required, set up required Tub, Assistive Device: tub bench, 2 wheeled walker (FWW), bariatric Safety Issues: balance decreased during turns, sequencing ability decreased, weight-shiftin g ability decreased, step length decreased, loses balance backward Impairments: muscle tone abnormal, ROM decreased, strength decreased, impaired balance, cooker meal rdination impaired, motor control impaired, postural control impaired, sensory feedback impa ired ROM Hx of LUE fx site in upper and lower arms, both w/ plates/pinning. L UE ROM: AROM to ~110 degrees, pt able to reach up to trapeze with extra effort. PROM for full range in shoulder flexion. R UE ROM: WFL Strength L UE Strength: Grossly 3-/5 R UE Strength: WFL OT Goal Review Date Most Recent Value STG Review Date 06/30/18 at 06/23/2018944 LTG Review Date 07/07/18 at 06/23/2018 0945 Grooming Goal Most Recent Value STG Status new at 06/23/201845 STG Hammond Level minimum assist (75% patient effort) at 06/23/201845 STG Position sitting in chair at 06/23/2018944 STG Adaptive Equipment none at 06/23/201845 LTG Status new at 06/23/2018944 LTG Hammond Level stand by assist at 06/23/2018944 LTG Position sitting in chair at 06/23/2018 0945 LTG Adaptive Equipment none at 06/23/2018944 Bathing Goal Most Recent Value STG Status new at 06/23/201845 STG [place] Level minimum assist (75% patient effort), set up required, verbal cues r equired at 06/23/2018944 STG Adaptive Equpiment grab bars, shower head, detachable, sponge, long handled, tub bench with back at 06/23/201845 STG Position sitting at 06/23/201845 LTG Status new at 06/23/2018944 LTG Hammond Level contact guard assist at 06/23/2018944 LTG Adaptive Equpiment grab bars, shower head, detachable, sponge, long handled, tub bench with back at 06/23/201845 LTG Position sitting at 06/23/201845 UB Dressing Goal Most Recent Value STG Status new at 06/23/2018944 STG Hammond Level stand by assist, set up required at 06/23/2018944 STG Adaptive Equipment none at 06/23/2018944 LTG Status new at 06/23/2018944 LTG Hammond Level supervised, set up required at 06/23/2018944 LTG Adaptive Equipment none at 06/23/201845 LB Dressing Goal Most Recent Value STG Status new at 06/23/2018944 STG [place] Level moderate assist (50% patient effort), set up required at 06/23/2018944 STG Adaptive Equipment grain oilseed or pasture farm worker, shoe horn, long handled, sock-aid at 06/23/2018944 LTG Status new at 06/23/2018944 LTG [place] Level contact guard assist, set up required at 06/23/2018944 LTG Adaptive Equipment grain oilseed or pasture farm worker, shoe horn, long handled, sock-aid at 06/23/2018944 Toileting Goal Most Recent Value STG Status new at 06/23/2018944 STG [place] Level minimum assist (75% patient effort), set up required, verbal cues r equired at 06/23/2018944 STG Assistive Device bariatric bedside commode, grab bar at 06/23/201845 LTG Status new at 06/23/2018944 LTG Hammond Level contact guard assist at 06/23/2018944 LTG Assistive Device bariatric bedside commode, grab bar at 06/23/2018944 Toilet Transfer Goal Most Recent Value STG Status new at 06/23/2018944 STG [place] Level contact guard assist at 06/23/201845 STG Assistive Device bariatric, commode (3 in 1), grab bars at 06/23/201845 LTG Status new at 06/23/2018944 LTG Hammond Level stand by assist at 06/23/2018944 LTG Assistive Device bariatric, commode (3 in 1), grab bars at 06/23/2018944 Tub/Shower Transfer Goal Most Recent Value Tub/Shower Type tub/shower combo at 06/23/2018944 STG Status new at 06/23/201845 STG Hammond Level contact guard assist, set up required, verbal cues required at 12/2017 STG Assistive Device bariatric, tub bench, grab bars at 06/23/2018 0945 LTG Status new at 06/23/2018 0945 LTG Hammond Level stand by assist at 06/23/2018 0945 LTG Assistive Device bariatric, tub bench, grab bars at 06/23/2018 0945 Electronically signed by: Choco Abreu OT, 06/23/2018 16:23 lan of Care - Angleica Ly, PT - 06/23/2018 9:15 AM PDTFormatting of this note might be different from the or iginal. Problem: Patient Care Overview (Adult) Goal: Care Team Goals & Evaluation PROBLEM-RELATED GOALS: 1. Ed will remain free from all falls and injuries through 07/04/18 2. Ed's skin will remain intact and any impairments will show signs of healing by 06/25/18 3. Ed will ambulated with FWW and physical therapy by 06/29/18 4. Ed will have no deterioration in his neuro assessment through 07/04/18 5. Ed will be continent of bowel and bladder and will not have any accidents through 6. Ed will have no s/sx of aspiration through 07/04/18 7. Pt will be Mod I in transfers and amb using bariatric FWW by 07/14/18. STRATEGY TO ACHIEVE GOALS: 1. Perform purposeful rounding, ensure call light is within reach and provide supervision f or all OOB activity 2. Assist patient with repositioning in bed, perform incontinence care if needed and monito r for signs of skin breakdown 3. Encourage active participation in PT/OT 4. Perform neuro assessment Qshift and notify MD of any decline 5. Assist with toileting, encourage fluid intake for bowel and bladder function 6. Provide altered textures and thickened fluids and ensure patient is sitting upright for all oral intake - Full participation in PT session in functional mobility training. RESTRAINT-RELATED GOALS: STRATEGIES TO ACHIEVE RESTRAINT GOALS: IRF Physical Therapy Plan of Care Treatment, Initial Evaluation Note Summary: Sarthak presents to physical therapy with Impaired balance, gait instability, (L ) sided neglect, (L) zena paresis who was admitted d/t CVA. on CT scan, Stable appearance o f the right insula acute to subacute infarction. Hx of previous CVA affecting (R) side. Ob jective exam reveals impairments with aerobic capacity/endurance, gait, locomotion, and demi nce, ergonomics and body mechanics, motor function, muscle performance, neuromotor, posture, sensory integration/regulation, social dynamics, integumentary integrity, arousal, attentio n, and cognition. 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 Pt is now admitted to IRF to imporve functional mobility and lessen burden of care Of ca regivers. Barriers to discharge and functional limitations include decreased insight into s afety and deficits, decreased functional activity tolerance, decreased bed mobility, decreas ed functional transfers, decreased functional gait distance, decreased gait velocity, demons trating need for 24/7 supervision, unsafe discharge disposition, not yet able to mobilize at level safe for home discharge, AMPAC indicating significant impairment with basic functiona l mobility and medical status. Edward will benefit from therapeutic intervention to address impairments and increase safet y and independence with activities necessary for safe discharge. Refer below for specific d etails regarding functional levels. Precautions/Limitations: falls, swallowing Precaution Comment: pace maker, Previous Level of Function: Transferring: independent Ambulation: independent Equipment Currently Used at Home: 4 wheeled walker (4WW) Prior Functional Level Comment: Pt states he has a caregiver come to his home 5 days a week for 2 hours to help bathe and dress him. Pt reports he cooks. Prefers being naked in the home. Pt reported he does not consistently used 4WW for ambulation and can walked around e house w/o AD. limited ambulator house to car only. Hx of falls. Potential available assistance at discharge: Significant Relationships: spouse Living Environment/Accessibility: Lives With: spouse Living Arrangements: house Home Accessibility: ramps present at home Patient/Family s Goals: to return to home. Rehabilitation potential: good, to achieve stated therapy goals Physical Therapy Discharge Recommendations are: Recommended discharge disposition: home with assist Post discharge physical therapy recommendation: home health Equipment Recommendations: bariatric, 2 wheeled walker (FWW) Planned Interventions: balance training, bed mobility training, gait training, home exerci se program, lumbar stabilization, manual therapy techniques, motor coordination training, st air training, strengthening, ROM (Range of Motion), postural re-education, patient/family ed ucation, neuromuscular re-education, transfer training, wheelchair management/propulsion tra ining Frequency: daily (1-2x/day) Patient Status/Goals: Reflects last filed data and may be from multiple contributors. Bed Mobility extra time and effort d/t weakness and body habitus. Verbal cues for correct sequence and technique for safety. Assistive Device: bed rails, overhead trapeze, HOB elevated Roll Left, Level of Hammond: verbal cues required, tactile cues required, stand by ass ist Roll Right, Level of Hammond: verbal cues required, tactile cues required, stand by as sist Scoot/Bridge, Level of Hammond: verbal cues required, tactile cues required, stand by assist Supine to Sit, Level of Hammond: stand by assist (Pt EoB prior to session) Sit to Supine, Level of Hammond: verbal cues required, tactile cues required, stand by assist (light assist with LLE back into bed) Safety Issues: decreased use of arms for pushing/pulling, decreased use of legs for bridgin g/pushing, impaired trunk control for bed mobility Impairments: decreased flexibility, ROM decreased, strength decreased, impaired balance, co ordination impaired, motor control impaired, postural control impaired, sensory feedback imp aired, muscle tone abnormal Transfers verbal cues for hand placement and correct sequence and technique for safety. Let's go of t he walker on (L) side. Placed a dicem on the walker to keep (L) hand in place d/t neglect. Bed-Chair, Level of Hammond: verbal cues required, 2 person assist required, minimal a ssist (75% patient effort) Chair-Bed, Level of Hammond: verbal cues required, 2 person assist required, minimal a ssist (75% patient effort), set up required [id number], Assistive Device: 2 wheeled walker (FWW), bariatric Sit-Stand, Level of Hammond: verbal cues required, minimal assist (75% patient effort) , 2 person assist required, set up required Stand-Sit, Level of Hammond: verbal cues required, 2 person assist required, minimal a ssist (75% patient effort) [id number]-Pxv, Assistive Device: bariatric, 2 wheeled walker (FWW) Safety Issues: balance decreased during turns, sequencing ability decreased, weight-shiftin g ability decreased, step length decreased, loses balance backward Impairments: muscle tone abnormal, ROM decreased, strength decreased, impaired balance, cooker meal rdination impaired, motor control impaired, postural control impaired, sensory feedback impa ired Gait w/c following for safety. Verbal cues for inc. step length to normalize gait. Cues for c orrect use of AD. Level of Hammond: set up required, verbal cues required, 1 person + 1 person to manage equipment, tactile cues required, 2 person assist required, minimal assist (75% patient eff ort) Assistive Device: 2 wheeled walker (FWW), bariatric Distance (feet): 15' Gait Deviations: alize decreased, double stance time increased, limb motion velocity decr eased, iau-uv-natbt clearance decreased, step length decreased, weight-shifting ability decr eased, wcati-ak-aajueq ratio decreased Safety Issues: balance decreased during turns, sequencing ability decreased, step length de creased, weight-shifting ability decreased Impairments: pain, strength decreased, impaired balance, coordination impaired, motor contr ol impaired, ROM decreased, sensation decreased, decreased flexibility, postural control imp aired Stairs Level of Hammond: not tested, not appropriate to assess, unable to perform Balance Sitting Balance: Static: good balance Sitting Balance: Dynamic: good balance Standing Balance: Static: (F-, need AD to maintain balance) Standing Balance: Dynamic: poor balance Functional Endurance Poor, fatigues easily ROM L LE ROM: Grossly WFL for body habitus type R LE ROM: Grossly WFL for body habitus type Strength L LE Strength: hip flexion 2+/5, knee ext 3+/5, DF 3+/5 R LE Strength: grossly graded 4-/5 PT Goal Review Date Most Recent Value STG Review Date 06/30/18 at 06/23/2018914 LTG Review Date 07/14/18 at 06/23/2018 0915 Fnonse-Wxw-Mmmecy Goal Most Recent Value STG Status new at 06/23/201815 STG Hammond Level supervised at 06/23/201815 STG Assistive Device bed rails, overhead trapeze at 06/23/2018 0915 LTG Status new at 06/23/201815 LTG Hammond Level modified independent at 06/23/2018 0915 LTG Assistive Device bed rails, overhead trapeze at 06/23/2018 0915 Ndl-Efplh-Ibo Goal Most Recent Value STG Status new at 06/23/2018914 STG Hammond Level contact guard assist at 06/23/2018 0915 STG Assistive Device 2 wheeled walker (FWW), bariatric at 06/23/2018 0915 LTG Status new at 06/23/2018914 LTG Hammond Level modified independent at 06/23/2018 0915 LTG Assistive Device 2 wheeled walker (FWW), bariatric, 4 wheeled walker (4WW) at 06/23/20 18 0915 Gait Goal Most Recent Value STG Status new at 06/23/2018914 STG Hammond Level contact guard assist at 06/23/201815 STG Assistive Device bariatric, 2 wheeled walker (FWW) at 06/23/2018 0915 STG Comments 50' at 06/23/201815 LTG Status new at 06/23/2018914 LTG Hammond Level modified independent at 06/23/201815 LTG Assistive Device 2 wheeled walker (FWW), bariatric, 4 wheeled walker (4WW) at 06/23/20 18 0915 LTG Distance (feet) 50' x 3 at 06/23/2018 0915 LTG Comments ramps at 06/23/2018 0915 Electronically signed by: ANGELICA LY, PT, 06/23/2018 15:31 lan of Care - Cecily Joseph RN - 06/23/2018 6:02 AM PDTProblem: Patient Care Overview (Adult) Goal: Care Team Goals & Evaluation PROBLEM-RELATED GOALS: 1. Ed will remain free from all falls and injuries through 07/04/18 2. Ed's skin will remain intact and any impairments will show signs of healing by 06/25/18 3. Ed will ambulated with FWW and physical therapy by 06/29/18 4. Ed will have no deterioration in his neuro assessment through 07/04/18 5. Ed will be continent of bowel and bladder and will not have any accidents through 6. Ed will have no s/sx of aspiration through 07/04/18 STRATEGY TO ACHIEVE GOALS: 1. Perform purposeful rounding, ensure call light is within reach and provide supervision f or all OOB activity 2. Assist patient with repositioning in bed, perform incontinence care if needed and monito r for signs of skin breakdown 3. Encourage active participation in PT/OT 4. Perform neuro assessment Qshift and notify MD of any decline 5. Assist with toileting, encourage fluid intake for bowel and bladder function 6. Provide altered textures and thickened fluids and ensure patient is sitting upright for all oral intake RESTRAINT-RELATED GOALS: STRATEGIES TO ACHIEVE RESTRAINT GOALS: Goal Evaluation: AAOx3. Denies pain. 2 person assist for transfer. L arm weak with neglect. L facial droop. VSS. Unable to void this morning. PVR of 376. No c/o abdominal discomfort. Swallowed medica tions with applesauce w/o difficulty. documented in this encounter Plan of Treatment [...] [address] | [place] | [phone] | | [facility] | | [address] | | | - LABORATORY | | | | + + + + + POC Glucose (07/01/2018 6:20 AM PDT) + +-------+ + + + | Component | Value | Ref Range | Performed | Pathologist | | | | | At | Signature | + +-------+ + + + | Glucose, | 106 | 70 - 109 mg/dL | JOSEE [...] [address] | [place] | [phone] | | [facility] | | [address] | | | - LABORATORY | | | | + + + + + POC Glucose (06/30/2018 8:33 PM PDT) + +-------+ + + + | Component | Value | Ref Range | Performed | Pathologist | | | | | At | Signature | + +-------+ + + + | Glucose, | 80 | 70 - 109 mg/dL | PROVIDEDAYANAE [...] [address] | [place] | [phone] | | [facility] | | [address] | | | - LABORATORY | | [...] + | [address] | [address] | [place] | [phone] | | [facility] | | [address] | | | - LABORATORY | | [...] [address] | [place] | [phone] | | [facility] | | [address] | | | - LABORATORY | | [...] [address] | [place] | [phone] | | [facility] | | [address] | | | - LABORATORY | | [...] + | [facility] | [address] | [place] | [phone] | | [facility] | | [address] | | | - LABORATORY | | [...] [address] | [place] | [phone] | | [facility] | | [address] | | | - LABORATORY | | [...] ST. | [address] | [place], [place] | [phone] | | [facility] | | [address] | | | - LABORATORY | | [...] + | [facility] | [address] | [place] | [phone] | | [facility] | | [address] | | | - LABORATORY | | [...] [address] | [place] | [phone] | | [facility] | | [address] | | | - LABORATORY | | [...] [address] | [place] | [phone] | | [facility] | | [address] | | | - LABORATORY | | [...] [address] | [place] | [phone] | | [facility] | | [address] | | | - LABORATORY | | [...] | | | | M/uL | [facility] | | | | [...] | Neutrophils | | K/uL | [facility] | | | | [...] | | | | WBC's | [facility] | | | | | | MEDICAL | | | | | | CENTER - | | | | | | LABORATORY | | + + + + + + | Absolute | 0.00 | 0.00 - 0.01 | [facility] | | | nRBC | | K/uL | [facility] | [...] [address] | [place] | [phone] | | [facility] | | [address] | | | - LABORATORY | | [...] not | 34 (L)Comment: | >=60 | PROVIDED[facility]ANAE | | | | GLOMERULAR FILTRATION | mL/min/1.73m2 | CAT | | | MALAGASY | RATE,ESTIMATED | | MEDICAL | | | | mL/min/1.97q7Nufq than | | CENTER - | | [...] [address] | [place] | [phone] | | [facility] | | [address] | | | - LABORATORY | | [...] + | [facility] | [address] | [place] | [phone] | | [facility] | | [address] | | | - LABORATORY | | [...] [address] | [place] | [phone] | | [facility] | | [address] | | | - LABORATORY | | [...] [address] | [place] | [phone] | | [facility] | | [address] | | | - LABORATORY | | [...] + | [facility] | [address] | [place] | [phone] | | [facility] | | [address] | | | - LABORATORY | | [...] | | | POC | | | [facility] | | | | | [...] + | [facility] | [address] | [place] | [phone] | | [facility] | | [address] | | | - LABORATORY | | [...] ST. | [address] | [place], [place] | [phone] | | [facility] | | [address] | | | - LABORATORY | | [...] | ARTERIAL CALCIFICATION. Dictated and Signed by: Edmond Caruso | | | Electronically signed: 06/26/2018 9:30 PM [...] [address] | [place] | [phone] | | [facility] | | [address] | | | - LABORATORY | | [...] [address] | [place] | [phone] | | [facility] | | [address] | | | - LABORATORY | | [...] [address] | [place] | [phone] | | [facility] | | [address] | | | - LABORATORY | | | | + + + + + POC Glucose (06/25/2018 4:56 PM PDT) + +-------+ + + + | Component | Value | Ref Range | Performed | Pathologist | | | | | At | Signature | + +-------+ + + + | Glucose, | 103 | 70 - 109 mg/dL | JOSEE [...] + | [facility] | [address] | [place] | [phone] | | [facility] | | [address] | | | - LABORATORY | | [...] [address] | [place] | [phone] | | [facility] | | [address] | | | - LABORATORY | | [...] | | | POC | | | [facility] | | | | | [...] + | [facility] | [address] | [place] | [phone] | | [facility] | | [address] | | | - LABORATORY | | [...] [address] | [place] | [phone] | | [facility] | | [address] | | | - LABORATORY | | [...] [address] | [place] | [phone] | | [facility] | | [address] | | | - LABORATORY | | [...] + | [facility] | [address] | [place] | [phone] | | [facility] | | [address] | | | - LABORATORY | | [...] + + | [facility] | [address] | [place] | [phone] | | [facility] | | [address] | | | - LABORATORY | | | | + + + + + POC Glucose (06/24/2018 6:05 AM PDT) + +-------+ + + + | Component | Value | Ref Range | Performed | Pathologist | | | | | At | Signature | + +-------+ + + + | Glucose, | 107 | 70 - 109 mg/dL | GIOVANI [...] + + | [facility] | [address] | [place] | [phone] | | [facility] | | [address] | | | - LABORATORY | | [...] + | [facility] | [address] | [place] | [phone] | | [facility] | | [address] | | | - LABORATORY | | | | + + + + + POC Glucose (06/23/2018 4:31 PM PDT) + +-------+ + + + | Component | Value | Ref Range | Performed | Pathologist | | | | | At | Signature | + +-------+ + + + | Glucose, | 89 | 70 - 109 mg/dL | PROVIDEDAYANAE [...] [address] | [place] | [phone] | | [facility] | | [address] | | | - LABORATORY | | [...] [address] | [place] | [phone] | | [facility] | | [address] | | | - LABORATORY | | | | + + + + + POC Glucose (06/23/2018 7:06 AM PDT) + +-------+ + + + | Component | Value | Ref Range | Performed | Pathologist | | | | | At | Signature | + +-------+ + + + | Glucose, | 105 | 70 - 109 mg/dL | [facility] [...] [address] | [place] | [phone] | | [facility] | | [address] | | | - LABORATORY | | | | + + + + + Prealbumin (06/23/2018 5:27 AM PDT) + +-------+ + + + | Component | Value | Ref Range | Performed | Pathologist | | | | | At | Signature | + +-------+ + + + | Prealbumin | 18 | 18 - 38 mg/dL | GIOVANI | | | | | | [facility] | | | | | [...] + | [facility] | [address] | [place] | [phone] | | [facility] | | [address] | | | - LABORATORY | | [...] not | 32 (L)Comment: | >=60 | [facility] | | | | GLOMERULAR FILTRATION | mL/min/1.73m2 | [facility] | | | MALAGASY | RATE,ESTIMATED | | MEDICAL | | | | mL/min/1.38h8Zkdu than | | CENTER - | | [...] | 9.4 | 8.3 - 10.5 | [facility] | | | | | mg/dL | [...] [address] | [place] | [phone] | | [facility] | | [address] | | | - LABORATORY | | [...] Granulocyte | Preliminary studIes have | | [facility] | | | s | indicated the [...] | | | | WBC's | [facility] | | | | | | MEDICAL | | | | | | CENTER - | | | | | | LABORATORY | | + + + + + + | Absolute | 0.00 | 0.00 - 0.01 | [facility] | | | nRBC | | K/uL | [facility] | [...] [address] | [place] | [phone] | | [facility] | | [address] | | | - LABORATORY | | | | + + + + + B Type Natriuretic Peptide (06/23/2018 5:27 AM PDT) + +---------+ + + + | Component | Value | Ref Range | Performed | Pathologist | | | | | At | Signature | + +---------+ + + + | BNP | 101 (H) | <100 pg/mL | PROVIDEDAYANAE | | | | | [...] ST. | [address] | [place], [place] | [phone] | | [facility] | | [address] | | | - LABORATORY | | [...] [address] | [place] | [phone] | | [facility] | | [address] | | | - LABORATORY | | [...] accident (CVA) (HCC) | + + | IDDM (insulin [...] | 1 tablet | | | | bnokxnqv-rgoyyidtyhih-cfsoOUVfcj | | 18 8:34 | | | [...] | | | | by Pharmacist Arsh Belcher, Eli | | | | | | | [...] | | | | | modification) on [facility] 06/23/18 at | | | | | [...] Applicat | | | | dose on [facility] 06/30/18 at 1130, The | | AM [...] barium (E-Z-HD) 98% contrast | Given | 20 | 25 mLs | | | | [...] | | | (after last modification) on [place] | | AM PDT | | | | | 06/23/18 at 0900, Reproductive | | | | | | | Risk: Use appropriate handling | | | | | | | precautions., Discharge Readmit | | | | | | + +-------+ +------+---+---+ +-------+ +------+---+---+ | Given | 10/11/20 | 5 mg | | | | [...] | | | | | modification) on 06/22/18 at | | | | | | [...] HOURS PRN, Itching, Starting | | | 06/29/18 at 1422 | | + +---+ | [...] | | | | | 06/29/18 at 0900, For 1 dose, | | | | | | | Give patient education | | | | | | | information. Shake prior to use., | | | | [...] | | | | | NPO, Daytime 8360-4179 Use NIGHT | | | | | | | DOSE for doses scheduled: | | | | | | | HS, 3AM, Nighttime 6197-3816, | | | | | | | [...] | | | | | modification) on [facility] 06/23/18 at | | | | | [...]
--- OUTSIDE RECORDS SUMMARY | ~2020-03-20 | XMS | Encounter Summary ---
Demographics + + + | Address | [address] [place] [address] | | | [place] [address] | + + + | Home Phone [...] | | | | | [place] [address] | | + + + + + Care Team Providers + +------+ + | Care Technical Sales Representatives Name | Role | Phone | + [...] POINT | | | GLUCOSE, | ID: [id number]: | | OF CARE | | | POC | [id number] Geraldo Wells | | TESTING | | | |[employer] Principal: [id number] Geraldo Wells | | | | | [...] POINT | | | GLUCOSE, | ID: [id number]: | | OF CARE | | | POC | [id number] Erik Salazar | | TESTING | | | |[employer] Principal: [id number] Erik Salazar | | | | | [...] POINT | | | GLUCOSE, | ID: [id number]: | | OF CARE | | | POC | [id number] Erik Salazar | | TESTING | | | |[employer] Principal: [id number] Erik Salazar | | | | | [...] [place] POINT | | | GLUCOSE, | [id number]: | | OF CARE | | | POC | [id number] Erik Salazar | | TESTING | | | |[employer] Principal: [id number] Erik Salazar | | | | | [...]
--- OUTSIDE RECORDS SUMMARY | ~2020-03-20 | XMS | Encounter Summary ---
Demographics + + + | Address | [address] | | | [place] [address] | + + + | Home Phone [...] Aileen Nelson | ECON | [address] [facility] | | | | | [place] | | | | | [address] | | + + + + + Care Team Providers + +------+ + | Care Air Quality Technician Name | Role | Phone | [...] | | | 2017 | | [address] [facility] | [address] [facility] | | | | | [place], [place] | [place], [place] | | | | | [address] | [address] | | | | | [phone] | [phone] | | | | | | | [...]
--- OUTSIDE RECORDS SUMMARY | ~2020-03-20 | XMS | Encounter Summary ---
Demographics + + + | Address | [address] | | | [place] [address] | + + + | Home Phone | | + + + | Preferred Language | Unknown | + + + | Marital Status | | + + + | Caodaism Affiliation | 1038 | + + + | Race | Unknown | + + + | Ethnic Group | Unknown | + + + Author + + + | Author | [facility] | | | and [place] | + + + | Organization | [facility] | | | and [place] | + + + | Address | Unknown | + + + | Phone | Unavailable | + + + Support + + + + + | Name | Relationship | Address | Phone | + + + + + | Aileen Nelson | ECON | [address] [facility] | | | | | [place] | | | | | [address] | | + + + + + Care Team Providers + +------+ + | Care [employer] Principal Name | Role | Phone | + +------+ + | Jericho Cao MD | PCP | | + +------+ + Reason for Visit + +--------+ + | Reason | Onset | Comments | | | Date | | + +--------+ + | Screening For | 02/25/ | | | Communicable Disease | 2020 | | + +--------+ + Encounter Details +--------+ + + + + | Date | Type | Department | Care Team | Description | +--------+ + + + + | 02/25/ | Telephone | [facility] | Hui Parsons, | Screening For | | 2020 | | [address] | [address] | Communicable Disease | | | | [address]VD [place], [place] | [place] [address] | | | | | [address] | [phone] | | | | | [phone] | | | +--------+ + + + [...] this encounter Miscellaneous Notes Telephone Encounter - Myriam Pickering, Dynamics Ax Technical Architect - 02/26/2020 9:55 AM PDTLVM with Sarthak in regards to COVID screening. documented in this encounter Plan of Treatment Not on filedocumented as of this encounter Visit Diagnoses Not on filedocumented in this encounter"
--- OUTSIDE RECORDS SUMMARY | ~2020-03-20 | XMS | Encounter Summary ---
Demographics + + + | Address | [address] [place] [address] | | | [place] [address] | + + + | Home Phone [...] | | | | | [place] [address] | | + + + + + Care Team Providers + +------+ + | Care Tool Engine Lathe Set Up Operator Name | Role | Phone | [...] Med C[facility]tr | | | | | [address] | Hospital[facility] [address] | | | | | [address] | | | | | | [place] | | | | | | [address] | | | | | | | [...] Bruno Gray MD - 05/10/2015 1:26 PM [facility] DISCHARGE SUMMARY [address] ADDENDUM [place] [address] ADDENDUM: DATE OF ADMISSION: 05/04/2015 Because there is minimal change to improvement for his scrotal cellulitis, cefdinir was discussed in detail with infectious disease doctor at the [facility], Srinivas Lafleur, upon discharge, stating that cefdinir at 300 mg b.i.d. is being continued and if there is need to increase it any further based on patient's weight. Srinivas Lafleur spoke with Marlin Winter, who is a pharmacist at the [facility], and their mutual decision was to keep [...] for Marlin Winter, the pharmacist at the [facility], was [phone] [facility] 7866. ILL/MedQ /[id number] Electronically Signed 05/20/15 0736 MD MANOJ Abbott EDWARD E [id number] : 50 [id number] ADMIT DATE: 05/04/15 DISCHARGE DATE: 05/10/15 Bruno Verdin MD - 05/10/2015 12:02 PM [facility] DISCHARGE SUMMARY [address] [place] [address] SARTHAK ARANDA DATE OF ADMISSION: 05/04/2015 DATE [...] multiple times in the ED. SARTHAK ARANDA [id number] : 50 [id number] ADMIT DATE: 05/04/15 DISCHARGE DATE: 05/10/15 HOSPITAL [...] for 3 weeks in total. However, the [facility] only allows 14 days of antibiotics maximum [...] the infectious disease lead clinical at the [facility], his last CD4 count in February 2015 was 873. She did not suspect that this was an opportunistic infection causing epididymo-orchitis and did agree with 3rd generation cephalosporins as it would not only cover for the E coli that we isolated in his urinalysis from SARTHAK ARANDA [id number] : 50 [id number] ADMIT DATE: 05/04/15 DISCHARGE DATE: 05/10/15 the [facility] when he saw them 2 weeks ago, [...] 25 mg b.i.d. as needed. SARTHAK ARANDA [id number] : 50 [id number] ADMIT DATE: 05/04/15 DISCHARGE DATE: 05/10/15 6. [place] 5/325 mg 1 tablet q.4 hours as [...] up with the anticoagulation clinic at the [facility] for further management. 3. Lantus 40 units subcu b.i.d., down from 50 units subcu b.i.d. Stopped medications: 1. Doxycycline. 2. Warfarin 5 mg Wednesday, Wednesday, Wednesday, Wednesday. DISCHARGE FOLLOWUP: 1. With Dr. Estes within 3-7 days. 2. With [facility] infectious disease physician/specialist within 3-7 days. 3. Romain Harrington within 1-2 weeks. 4. Anticoagulation clinic within 1-2 days. DISCHARGE ACTIVITY: As tolerated. DISCHARGE DIET: Diabetic and low salt and low sodium. Spent more than 30 minutes counseling and coordinating care. DEYANIRA/MedQ /[id number] CC: Iain WHITE M.D. JESSE M. PAPAC, M.D. Electronically Signed 05/20/15 0735 Bruno Gray MD ARANDASARTHAK [id number] : 50 [id number] ADMIT DATE: 05/04/15 DISCHARGE DATE: 05/10/15 Tdocumented in this encounter Plan of Treatment Not on filedocumented as of this encounter Visit Diagnoses Not on filedocumented in this encounter"
--- OUTSIDE RECORDS SUMMARY | ~2020-03-20 | XMS | Encounter Summary ---
Demographics + + + | Address | [address] | | | [place] [address] | + + + | Home Phone [...] | Author | [facility] [...] | Aileen Nelson | ECON | [address] [facility] | | | | | [place] | | | | | [address] | | + + + + + Care Team Providers + +------+ + | Care Ward Maid Name | Role | Phone | + [...] | | | 2017 | | [address] [facility] | [address] [facility] | | | | | [place], [place] | [place], [place] | | | | | [address] | [address] | | | | | [phone] | [phone] | | | | | | | [...]
--- OUTSIDE RECORDS SUMMARY | ~2020-03-20 | XMS | Clinical Summary ---
Demographics + + + | Address | [address] [place] [address] | | | [place] [address] | + + + | Home Phone [...] Author + + + | Author | [facility] LOC | + [...] | | | | | [place] [address] | | + + + + + Care Team Providers + +------+ + | Care Tractor Crane Operator Name | Role | Phone | + +------+ + | Romain Harrington MD | PCP | | + +------+ + Source Comments MANUEL is fully live on both [facility] and [facility] InPatient.[facility] Allergies + + + + + [...] 0 | | | Activ | | 3-qeo-via-fish oil | two times daily. | | [...] | [place] | | natalie | | [id number] | ity | | | RIAL | | for | | [place], [place] | | | | ACCT | | all | | [address] | | | | CONTRA | | dates | | | | | | CT | | | | | | + +--------+ +--------+ + +--------+ | [place] | xxxxxxxxx | Effect | [id number] | [address] | Agency | | ADMINISTRATION | COMMUN | | natalie | 8 | [address]35 | | | | ITY | | for | | [place], | | | | [place]SOU | | all | | [place] [address] | | | | RCE | | dates | | | | + +--------+ +--------+ + +--------+ | [facility] | [facility] | [phone] | Effect | [id number] | [address] | Agency | | ADMINISTRATION | NS | | natalie | 8 | 1035 | | | | ADMINI | | for | | [place], | | | | STRATI | | all | | [place] [address] | | | | ON | | [...] | | | | | | | [address] | | + +--------+ +--------+ + +--------+ [...] 1950 | [phone] | [place] [address] | | | john | | | 6 (Home) | | + +--------+ +--------+ + + | Sarthak Nelson | Person | Self [birth year] | [address] | | | al/Fam | | 1950 | [phone] | [place] [address] | | | john | | | 6 (Home) | | + +--------+ +--------+ + + | [id number] | Indust | Other | 09/[birth year]/ | | DEVONTE Arizmendi [id number] | | | rial | | 1875 | | [place] | | | | | | | [address] | + +--------+ +--------+ + + | Sarthak Nelson | [place] | Self | [birth year] | [address] | | | [place] | | 1950 | [phone] | [place] [address] | | | red | | | 6 (Home) | | + +--------+ +--------+ + +"
--- OUTSIDE RECORDS SUMMARY | ~2020-03-20 | XMS | Encounter Summary ---
Demographics + + + | Address | [address] [place] [address] | | | [place] [address] | + + + | Home Phone [...] Author + + + | Author | [facility] | + + + | Organization | [facility] | + + + | Address | Unknown | + + + | Phone | Unavailable | + + + Support + + + + + | Name | Relationship | Address | Phone | + + + + + | Aileen Aranda | ECON | [address] | | | | | [place] [address] | | + + + + + Care Team Providers + +------+ + | Care Acetylene Cylinder Packing Mixer Name | Role | Phone | + [...] | | Results for this | | [phone] | e | 3:22 PM | | [...] POINT | | | GLUCOSE, | ID: [id number]: | | OF CARE | | | POC | [id number] John Goyal | | TESTING | | | |Mold Swabber: [id number] John Goyal | | | | | [...] POINT | | | GLUCOSE, | ID: [id number]: | | OF CARE | | | POC | [id number] Adam Guille | | TESTING | | | |Mold Swabber: [id number] Adam Guille | | | | | [...] | + +---------+ + + SCROTAL ULTRASOUND [id number] (05/04/2015 3:22 PM PDT) + + | Specimen | + + | | + + + + + | Narrative | Performed At | + + + | Name: | [facility] | | [facility] | DEPARTMENT OF | | Phys: Sonu Welch MD | RADIOLOGY | | | | | : 1950 Age: 64 Sex: M | | | Acct: [id number] Loc: 426 2 | | | | | | Exam Date: 05/03/2015 Status: ADM IN | | | Radiology No: | | | Unit No: | | | [id number] EXAM# TYPE/EXAM | | | RESULT | | | [id number] US/SCROTAL ULTRASOUND 16299 | | | TESTICULAR ULTRASOUND | | [...] | Sex: M | | | Acct: [id number] Loc: 426 2 | | | Exam Date: 05/03/2015 | | | Status: ADM IN | | | Radiology No: | | | Unit No: [id number] | | | EXAM# TYPE/EXAM RESULT | | | [id number] US/SCROTAL | | | ULTRASOUND 61289 | | | Findings reviewed with Dr. Estes May 04, | | | 2014. [id number] | | | REPORT ELECTRONICALLY SIGNED 05/05/2015 (3611) | | | Reported By: Neetu HERNÁNDEZ MD | | | Signed By: Scooter Hernández M.D. | | | | | | Technologist: LISA DICKERSON | | | Electronically signed by: Neetu BUCK | | | SAGAR BARAHONA CC: Romain Harrington MD | | | | | | | | | Transcribed Date/Time: | | | 05/04/2015 (604) Biodiesel Process Control Technician: [email or web address] PAGE | | | 2 Signed Report | | | | | + + + + + | Procedure Note | + + | Interface, Radiology Results - 06/03/2015 10:36 AM PDT | | Name: [facility] | | Phys: Sonu Welch MD : | | 1950 Age: 64 Sex: M Acct: [id number] | | Loc: 426 2 Exam Date: 05/03/2015 | | Status: ADM IN Radiology No: | | Unit No: [id number] EXAM# TYPE/EXAM | | RESULT [id number] US/SCROTAL ULTRASOUND | | 93070 TESTICULAR ULTRASOUND | | INDICATION: Right-sided scrotal [...] Age: 64 Sex: M Acct: | | [id number] Loc: 426 2 Exam Date: | | 05/03/2015 Status: ADM IN Radiology No: | | Unit No: [id number] EXAM# | | TYPE/EXAM RESULT [id number] | | US/SCROTAL ULTRASOUND 76456 Findings | | reviewed with Dr. Estes May 04, 2015. [id number] | | REPORT ELECTRONICALLY SIGNED 05/05/2015 (1635) Reported | | By: Neetu HERNÁNDEZ MD Signed By: Scooter Hernández M.D. | | Technologist: LISA DICKERSON | | Electronically signed by: Neetu HERNÁNDEZ MD CC: Romain Harrington MD | | | | Transcribed Date/Time: 05/04/2015 (1630) | | Biodiesel Process Control Technician[facility] Signed Report | | [...] Age: 64 Sex: M | | Acct: [id number] Loc: 426 2 | | Exam Date: 05/03/2015 Status: ADM IN | | Radiology No: | | Unit No: [id number] | | | | | | | | | |EXAM# TYPE/EXAM RESULT | |[id number] US/SCROTAL ULTRASOUND 83614 | | | | Findings reviewed with Dr. Estes May 04, 2015. | | | | [id number] | | | | | | REPORT [...] | | | | Transcribed Date/Time: 05/04/2015 (7212) | | Biodiesel Process Control Technician: [email or web address] | | | | | | [...] POINT | | | GLUCOSE, | ID: [id number]: | | OF CARE | | | POC | [id number] Adam Han | | TESTING | | | |Mold Swabber: [id number] Adam Han | | | | | [...] POINT | | | GLUCOSE, | ID: [id number]: | | OF CARE | | | POC | [id number] Megan | | TESTING | | | [...] | | TESTING | | | | [id number]: | | | | | | [id number] Bruceheron Prettya | | | | | [...]
--- OUTSIDE RECORDS SUMMARY | ~2020-03-20 | XMS | Encounter Summary ---
Demographics + + + | Address | [address] | | | [place] [address] | + + + | Home Phone [...] [place] | | | | | [phone] | | + + + + + Care Team Providers + +------+ + | Care Payment Poster Name | Role | Phone | + [...] +--------+--------+ + + + + Encounter Details +--------+---------+ + + + | Date | Type | Department | Care Team | Description | +--------+---------+ + + + | 10/12/ | Surgery | [facility] | Hui Parsons, | cephalomeduallry | | 2020 | | [facility] | [address] | nail left femur | | | | [address] | [place] [address] | fracture | | | | [address] | [phone] | | | | | [place], [place] | | | | | | [address] | | | | | | [phone] | | | +--------+---------+ + + + [...] + + + | Blood Pressure | 107/53 | 10/12/2019 11:42 AM | | | | | PST | | + + + + + | Pulse | 80 | 10/12/2019 11:42 AM | | | | | PST | | + + + + + | Temperature | 36.4 C (97.5 F) | 10/12/2019 11:42 AM | | | | | PST | | + + + + + | Respiratory Rate | 20 | 10/12/2019 11:42 AM | | | | | PST | | + + + + + | Oxygen Saturation | 95% | 10/12/2019 11:42 AM | | | | | PST | | + + + + + | Inhaled Oxygen | - | - | | | Concentration | | | | + + + + + | Weight | 159.7 kg (352 lb 1.2 | 10/11/2019 9:00 AM | | | | oz) | PST | | + + + + + | Height | 188 cm (6' 2") | 10/10/2019 1:11 AM | | | | | PST | | + + + + + | Body Mass Index | 45.2 | 10/10/2019 1:11 AM | | | | | PST [...] documented as of this encounter Discharge Summaries Satya Pinto MD - 10/18/2019 12:40 PM PST Patient: Sarthak Nelson : 1950 Date of Admission: 10/10/2019 Date of Discharge: 10/18/2019 Discharging Provider: Satya Pinto MD Discharge Diagnoses: Principal Problem: Hip fracture Active Problems: IDDM (insulin dependent diabetes mellitus) HTN (hypertension) CKD (chronic kidney disease) HIV (human immunodeficiency virus infection) Morbid obesity Atrial fibrillation Chronic anticoagulation Closed fracture of left hip, initial encounter Resolved Problems: * No resolved hospital problems. * Procedures Performed: Left hip cephalomedullary nailing by Dr. Parsons on 10/12/19 Chief Complaint: Leg pain Hospital Course: Mr. Nelson is a 68-year-old male with a history of A. fib on chronic anticoagulation with eliquis, heart failure on chronic oxygen, TII DM, HTN, HIV, ischemic CVA, s/p ICD/pacemaker who presented as a transfer from [facility] due to mechanical ground level f all with resultant left hip fracture. Night prior to admit patient had a ground level fall w hich occurred while walking from bathroom to bedroom. Pain was severe and he presented for f urther evaluation. Denied preceeding symptoms and stated he tripped. Last time he took Eliqu is was night prior to the fall. Patient initially brought to local ED, transferred to [facility] for orthopedic care. Workup included aCT which revealed a left hip fracture. Patient hype rkalemic to 6.3 on admit which along with recent eliquis dosing made anesthesia and ortho we janelle of taking him back to surgery right away so surgery delayed by 2 days. Patient did under go L hip cephalomedullary nailing by Dr. Parsons on 10/12/19. Tolerated surgery well with unrem arkable post-operative course. PT consulted and recommended SNF. Accepted at [facility]. On day of discharge felt well denying any fevers, chills, chest pain, dyspnea, abdomin al pain. Leg pain well controlled on meds available to him on as needed basis. Discharge Exam and Data: Vital Signs: BP 104/57 | Pulse 50 | Temp 36.9 C (98.4 F) (Oral) | Resp 16 | Ht 1.88 m (6' 2") | Wt (!) 159.7 kg (352 lb 1.2 oz) | SpO2 96% | BMI 45.20 kg/m GEN: elderly male in no apparent distress HEAD: normocephalic EYES: no conjunctival icterus or injection ENT: MMM, clear oropharynx NECK: supple, no cervical lymphadenpathy CV: RR at ~70 bpm, normal S1/S2, no murmurs RESP: CTAB without crackles or wheezes ABD: soft, NT/ND, BS+, no obvious masses/organomegaly SKIN: warm and dry, no rashes MSK: normal muscle bulk and tone PSYCH: mood is good, affect congruent NEURO: grossly non-focal Recent Labs BMP 140 109 32* 190* 4.3 25 1.5* CaMgPhos 8.6 1.9 LFT 34 133* 28 3.6 CBC 13.73* 12.8* 252 38.0* Coag 38* 1.1 Last labs from current encounter as of 10/18/19-12:40 Recent Radiology Results Left femur xray - 10/10/19 - Impression: Left intertrochanteric fracture with apex lateral angulation and mild displacement. Left pelvic xray - 10/10/19 - Impression: Left proximal femoral intertrochanteric fracture. Left femur xray - 10/12/19 - Impression: 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 fracture Outstanding Issues: None Discharge Information: [facility] [address] [phone] Current active diet order is: Diet Diet general; Effective Now Discharge Medications New Medications Details acetaminophen 325 mg tablet Take 2 tablets by mouth every 6 hours as needed for Pain (or fever >= 38.6 C (101.5 F)). aka: TYLENOL lactulose 10 g/15 mL solution Take 30 mLs by mouth Twice daily as needed for Constipation. polyethylene glycol packet Take 1 diluted packet by mouth Daily as needed for up to 30 days. aka: MIRALAX senna 8.6 mg tablet Take 2 tablets by mouth every morning for 30 days. aka: SENOKOT Unchanged Medications Details woozkjex-nokfqnfuudzy-qkhrDQInch 600-50-300 mg per tablet Take 1 tablet by mouth Daily. Indications: HIV Disease aka: TRIUMEQ allopurinol 100 mg tablet Take 100 mg by mouth Daily. aka: ZYLOPRIM apixaban 5 mg tablet Take 1 tablet by mouth every 12 hours. aka: ELIQUIS atorvaSTATin 80 MG tablet Take 1 tablet by mouth Daily. aka: LIPITOR bacitracin 500 UNIT/GM ointment Apply to the open sore on the lateral right calf diphenhydrAMINE 50 mg capsule Take 1 capsule by mouth daily (after dinner). aka: BENADRYL finasteride 5 mg tablet Take 1 tablet by mouth Daily. aka: PROSCAR gabapentin 600 MG tablet Take 300 mg by mouth 2 times daily. aka: NEURONTIN HYDROcodone-acetaminophen 5-325 mg per tablet Take 1 tablet by mouth every 6 hours as needed for Pain. aka: NORCO insulin glargine 100 units/mL injection (vial) Inject 10 Units under the skin 2 times daily. aka: LANTUS insulin lispro 100 units/mL injection (pen) Inject 0-6 Units under the skin 4 times daily (with meals and nightly). aka: humaLOG KWIKPEN insulin lispro 100 units/mL injection (pen) Inject 15 Units under the skin 3 times daily (with meals). aka: humaLOG KWIKPEN isosorbide mononitrate 30 mg ER tablet Take 1 tablet by mouth Daily. aka: IMDUR metoprolol tartrate 25 mg tablet Take 1 tablet by mouth 2 times daily. aka: LOPRESSOR mirtazapine 7.5 MG tablet Take 2 tablets by mouth daily (after dinner). aka: REMERON Saw [employer]a 450 MG Caps Take 900 mg by mouth 2 times daily. spironolactone 50 mg tablet Take 50 mg by mouth Daily. aka: ALDACTONE tolnaftate 1% powder Apply topically 2 times daily. aka: TINACTIN Discontinued Medications oxyCODONE-acetaminophen 5-325 mg per tablet aka: PERCOCET Disposition: fdc Condition: Fair Code Status: Full Code Discharge took greater than 30 minutes, to include final examination, discussion of admissi on, and preparation of prescriptions, instructions for on-going care, follow-up and document ation of discharge summary. Satya Pinto MD 12:40 PM 10/18/2019 documented in this encounter Discharge Instructions Instructions Hui Parsons MD - 10/12/2019Orthopedic Surgery Discharge Instructions WEIGHT BEARING INSTRUCTIONS FOR AFFECTED EXTREMITY (EXTREMITIES) [X] Weight bearing as tolerated Left lower extremity [ ] Toe touch Weight bearing [ ] Non-weight bearing [ ] Other DVT Prophylaxis (blood clot prevention) [ ] Lovenox x 28 days total [ ] Aspirin 325mg twice a day X 28 days [x] Other __ELIQUIS [ ] Not applicable WOUND CARE [ ] Do not change or remove dressing or take a shower until instructed by your Physician [X] Okay to shower [X] Keep dressing clean and dry. Change dressing if it becomes wet or soiled. Be sure to wash hands well and keep all supp lies as clean as possible [ ] External Fixators: Do daily pin site cleaning: With a mixture of 50% Hydrogen Peroxide and 50% Water, use a fahad n Q-tip and clean around the pins to keep clean of debris/clot. Then put clean gauze wraps around the pins and corbin wrap back over the external fixator. If you have a Wound Vac: Wound Vac care as instructed by home health agency If you have a PICC line: PICC line care as instructed by PICC nurses and home health agency ACTIVITY INSTRUCTIONS POST-ORTHOPAEDIC SURGERY: Use activity aids (walker, cane, crutches, etc.) as instructed. Keep affected extremity elevated above the heart, as much as possible. Follow exercise and activity routine as instructed by physician, physical therapist, and nursing staff. Intersperse periods of activity with periods of rest. Do not sit for long periods of time. Apply ice to affected area as directed by your physician DIET: Gradually resume your normal diet. If nausea occurs, go back to liquids and gradually return to your normal diet. A balanced diet; high in nutrients will aid in wound healing. Follow any specific instructions your physician has given you regarding nutrition PAIN MANAGEMENT: If you experience pain; take your prescribed medication. While taking any pain medication or sedatives you should not: Drive a car or operate power tools, Drink any alcoholic beverages, including, but not limited to, beer and wine. NEMO hose: Wear NEMO hose until physician discontinues. Remove NEMO hose for 30-45 minutes on ce or twice a day. Wash NMEO hose in mild soap and water, rinse, and hang dry as needed You should have assistance from a family member to remove and replace. NOTIFY YOUR PHYSICIAN IF YOU EXPERIENCE ANY OF THE FOLLOWING: Persistent nausea and/or vomiting or inability to eat Unusual amount of bleeding or drainage from the surgical site Any redness or unusual swelling at the surgical site Fever over 101 Pain not relieved by prescribed medication Severe diarrhea Nosebleeds or blood in your urine or stools, if you are taking blood thinners Frequent urination and burning when you urinated or inability to urinate Follow any specific instructions your physician has given you. documented in this encounter Medications at Time [...] + + + +---------+ + + | acetaminophen | Take 2 tablets by | 120 | 0 | 10/18/19 | | | (TYLENOL) 325 mg | mouth every 6 hours | tablet | | 20 | | | tablet | as needed for Pain | | | | | | | (or fever >= 38.6 C | | | | | | | (101.5 F)). | | | | | + + [...] tablet by | 50 | 0 | 10/18/19 | | | HYDROcodone-acetamin | mouth every 6 hours | tablet | | 20 | | | ophen (NORCO) 5-325 | as needed for Pain. | | | | | | mg per tablet | | | | | | + + + +---------+ + + | insulin glargine | Inject 10 Units | | 0 | | | | (LANTUS) 100 | under the skin 2 | | | | | | units/mL injection | times daily. | | | | | | (vial) | | | | | | + + + +---------+ + + | insulin lispro | Inject 0-6 Units | 2 pen | 1 | 20 | | | (HUMALOG KWIKPEN) | under the skin 4 | | | 18 | | | 100 units/mL | times daily (with | | | | | | injection (pen) | meals and nightly). | | | | | + + + +---------+ + + | insulin lispro | Inject 15 Units | 3 pen | 1 | 20 | | | (HUMALOG KWIKPEN) | under [...] + + + +---------+ + + | lactulose 10 g/15 | Take 30 mLs by mouth | 320 mL | 0 | 10/18/19 | | | mL solution | Twice daily as | | | 20 | | | | needed for | | | | | | | Constipation. | | | | | + + [...] + + +---------+ + + | Saw Alcoa 450 | Take 900 mg by mouth [...] + + + +---------+ + + | tolnaftate | Apply topically 2 | | 0 | | | | (TINACTIN) 1% powder | times daily. | | | | | + + + +---------+ + + | polyethylene | Take 1 diluted | 30 | 0 | 10/18/19 | | | glycol (MIRALAX) | packet by mouth | packet | | 20 | 0 | | packet | Daily as needed for | | | | | | | up to 30 days. | | | | | + + + +---------+ + + | senna (SENOKOT) | Take 2 tablets by | 60 | 0 | 10/18/19 | | | 8.6 mg tablet | mouth every morning | tablet | | 20 | 0 | | | for 30 days. | | | | | + + + +---------+ + + documented as of this encounter Progress Notes Satya Pinto MD - 10/17/2019 1:58 PM PST [facility] Service: Hospitalist Progress Note Pt: Sarthak Nelson AGE/SEX: 68 y.o. male ROOM: 435/435-01 : 1950 PCP: Jericho Cao MD ADMIT DATE: 10/10/2019 TODAY'S DATE: 10/17/2019 Hospital Day/Hospital Course: LOS: 7 days Mr. Nelson is a 68-year-old male with a history of A. fib on chronic anticoagulation with eliquis, heart failure on chronic oxygen, TII DM, HTN, HIV, ischemic CVA, s/p ICD/pacemaker who presents as a transfer from [facility] due to mechanical fall and resulta nt left hip fracture. Night prior to admit patient had a ground level fall which occurred wh ile walking from bathroom to bedroom. Pain was severe and he presented for further evaluatio n. Denied preceeding symptoms stating he tripped. Last time he took Eliquis was night prior to the fall. Patient initially brought to local ED, transferred to [facility] for orthopedic car e. Patient uses a walker at baseline and cannot walk more than half a block due to dyspnea. Also, patient with 1-3 falls occuring every week, and all of the events are related to lowe r extremity weakness. Workup on admit included a CT which revealed a left hip fracture. Orth o consulted and patient now s/p L hip cephalomedullary nailing by Dr. Parsons on 10/12/19. Tole rated surgery well. PT consulted and recommended SNF. Now awaiting placement. SUBJECTIVE: Feels well today. No acute complaints. Denies fevers, chest pain. Scheduled Medications: rcazqygt-fimdckwpmwnf-hkesHTDadf 1 tablet Oral Daily allopurinol 100 mg Oral Daily apixaban 5 mg Oral 2 times per day atorvaSTATin 80 mg Oral Nightly finasteride 5 mg Oral Daily gabapentin 300 mg Oral BID insulin glargine 10 Units Subcutaneous 2 times per day insulin lispro 0-6 Units Subcutaneous 4x Daily WC and HS insulin lispro 5 Units Subcutaneous TID WC isosorbide mononitrate 30 mg Oral Daily metoprolol tartrate 25 mg Oral BID mirtazapine 15 mg Oral Daily after dinner nystatin Topical BID Continuous Infusions dextrose 10% PRN Medications acetaminophen, Hypoglycemia Management AND POCT Glucose AND dextrose AND dextro se 10%, eucerin, HYDROmorphone, lactulose, melatonin, oxyCODONE-acetaminophen, polyethylene glycol, prochlorperazine, senna, sodium phosphate Allergy: Allergies Allergen Reactions Amoxicillin Augmentin- throat swelling Ciprofloxacin Other reaction(s): ACUTE INTERSTITIAL NEPHRITIS Simvastatin Rash and Itching Sulfa Antibiotics Tegaderm Chg Dressing [Chlorhexidine] Itching Other reaction(s): VESICLES IN SKIN Tigecycline Itching and Hives Cefazolin Itching and Hives Cephalexin Itching Niacin Other reaction(s): FLUSHING Sulfamethoxazole-Trimethoprim Itching Acute interstitial nephritis Bee Venom Rash Tape [Adhesive & Tape] Triamcinolone Rash Vancomycin Itching OBJECTIVE: Vitals: BP 111/65 | Pulse 85 | Temp 36.4 C (97.6 F) (Axillary) | Resp 18 | Ht 1.88 m (6' 2" ) | Wt (!) 159.7 kg (352 lb 1.2 oz) | SpO2 99% | BMI 45.20 kg/m I&O Detailed Table: Intake/Output Summary (Last 24 hours) at 10/17/2019 1358 Last data filed at 10/17/2019 1200 Gross per 24 hour Intake 320 ml Output Net 320 ml Patient Vitals for the past 96 hrs: Weight 10/16/19 0937 (!) 159.7 kg (352 lb 1.2 oz) 10/15/19 2126 (!) 159.7 kg (352 lb 1.2 oz) 10/14/19 212 (!) 159.7 kg (352 lb 1.2 oz) Physical Examination: GEN: elderly male in no apparent distress HEAD: normocephalic EYES: no conjunctival icterus or injection ENT: MMM, clear oropharynx NECK: supple, no cervical lymphadenpathy CV: RR at ~70 bpm, normal S1/S2, no murmurs RESP: CTAB without crackles or wheezes ABD: soft, NT/ND, BS+, no obvious masses/organomegaly SKIN: warm and dry, no rashes MSK: normal muscle bulk and tone PSYCH: mood is good, affect congruent NEURO: grossly non-focal LABS: BMP 140 109 32* 190* 4.3 25 1.5* CaMgPhos 8.6 1.9 LFT 34 133* 28 3.6 CBC 13.73* 12.8* 252 38.0* Coag 38* 1.1 Last labs from current encounter as of 10/17/19-13:58 Recent Labs Lab 10/14/19 0437 10/13/19 0515 10/12/19 0412 10/11/19 0523 INR 1.1 1.0 1.1 1.2 PTT -- -- -- 38* IMAGING: Reviewed in [facility], no new results. PROBLEM LIST Principal Problem: Hip fracture Active Problems: IDDM (insulin dependent diabetes mellitus) HTN (hypertension) CKD (chronic kidney disease) HIV (human immunodeficiency virus infection) Morbid obesity Atrial fibrillation Chronic anticoagulation Closed fracture of left hip, initial encounter Resolved Problems: * No resolved hospital problems. * ASSESSMENT & PLAN Hip fracture / mechanical ground level fall Night prior to admit sustained mechanical GLF. Presented to local ED and had CT which showe d comminuted intertrochanteric fracture of left hip. Transferred here for ortho evaluation. Patient hyperkalemic to 6.3 on admit which along with recent eliquis dosing made anesthesia and ortho weary of taking him back to surgery right away so surgery delayed by 2 days. -ortho consulted,s/p L hip cephalomedullary nailing by Dr. Parsons on 10/12/19 -prn analgesics and anti-emetics -PT/OT consults placed Hyperkalemia: present on admit due to poor po intake/decreased renal function, now back to normal CKD stage III: a bit volume down on admit, now back to baseline, avoid nephrotoxins Leukocytosis: no signs/symptoms of infection, suspect reactive, monitor Afib, chronic: continue eliquis and BB Heart failure on chronic oxygen therapy: not in acute exacerbation, continue cardiac meds TII DM: HgA1c on admit 9.0, LDISS and monitor BGs HTN: normotensive, continue home meds HLD: continue statin Gout: continue allopurinol HIV: continue ARRT S/p ICD/PPM: asymptomatic, noted device in place PPx: full dose anticoagulation as above Code status: Full Dispo: medically ready, PT/OT rec SNF, discussed with CM, now awaiting dispo Satya Pinto MD 1:58 PM 10/17/2019 Portions of this chart may have been copied from previous notes for continuity of care purp ose atya Pinto MD - 0 10/16/2019 5:22 PM PST [facility] Service: Hospitalist Progress Note Pt: Sarthak Singhdwell AGE/SEX: 68 y.o. male ROOM: [address] [place] [address] : 1950 PCP: Jericho Cao MD ADMIT DATE: 10/10/2019 TODAY'S DATE: 10/16/2019 Hospital Day/Hospital Course: LOS: 6 days Mr. Nelson is a 68-year-old male with a history of A. fib on chronic anticoagulation with eliquis, heart failure on chronic oxygen, TII DM, HTN, HIV, ischemic CVA, s/p ICD/pacemaker who presents as a transfer from [facility] due to mechanical fall and resulta nt left hip fracture. Night prior to admit patient had a ground level fall which occurred wh ile walking from bathroom to bedroom. Pain was severe and he presented for further evaluatio n. Denied preceeding symptoms stating he tripped. Last time he took Eliquis was night prior to the fall. Patient initially brought to local ED, transferred to [facility] for orthopedic car e. Patient uses a walker at baseline and cannot walk more than half a block due to dyspnea. Also, patient with 1-3 falls occuring every week, and all of the events are related to lowe r extremity weakness. Workup on admit included a CT which revealed a left hip fracture. Orth o consulted and patient now s/p L hip cephalomedullary nailing by Dr. Parsons on 10/12/19. Tole rated surgery well. PT consulted and recommended SNF. Now awaiting placement. SUBJECTIVE: Feels well today. No acute complaints. Denies fevers, chest pain. Scheduled Medications: asunglcg-lmajhvmujlyn-hoyeYQWjjz 1 tablet Oral Daily allopurinol 100 mg Oral Daily apixaban 5 mg Oral 2 times per day atorvaSTATin 80 mg Oral Nightly finasteride 5 mg Oral Daily gabapentin 300 mg Oral BID insulin glargine 10 Units Subcutaneous 2 times per day insulin lispro 0-6 Units Subcutaneous 4x Daily WC and HS insulin lispro 5 Units Subcutaneous TID WC isosorbide mononitrate 30 mg Oral Daily metoprolol tartrate 25 mg Oral BID mirtazapine 15 mg Oral Daily after dinner nystatin Topical BID Continuous Infusions dextrose 10% PRN Medications acetaminophen, Hypoglycemia Management AND POCT Glucose AND dextrose AND dextro se 10%, eucerin, HYDROmorphone, lactulose, melatonin, oxyCODONE-acetaminophen, polyethylene glycol, prochlorperazine, senna, sodium phosphate Allergy: Allergies Allergen Reactions Amoxicillin Augmentin- throat swelling Ciprofloxacin Other reaction(s): ACUTE INTERSTITIAL NEPHRITIS Simvastatin Rash and Itching Sulfa Antibiotics Tegaderm Chg Dressing [Chlorhexidine] Itching Other reaction(s): VESICLES IN SKIN Tigecycline Itching and Hives Cefazolin Itching and Hives Cephalexin Itching Niacin Other reaction(s): FLUSHING Sulfamethoxazole-Trimethoprim Itching Acute interstitial nephritis Bee Venom Rash Tape [Adhesive & Tape] Triamcinolone Rash Vancomycin Itching OBJECTIVE: Vitals: BP 112/67 | Pulse 86 | Temp 37.1 C (98.7 F) (Oral) | Resp 20 | Ht 1.88 m (6' 2") | Wt (!) 159.7 kg (352 lb 1.2 oz) | SpO2 99% | BMI 45.20 kg/m I&O Detailed Table: Intake/Output Summary (Last 24 hours) at 10/16/2019 1722 Last data filed at 10/16/2019 0352 Gross per 24 hour Intake 200 ml Output Net 200 ml Patient Vitals for the past 96 hrs: Weight 10/16/19 0937 (!) 159.7 kg (352 lb 1.2 oz) 10/15/19 2126 (!) 159.7 kg (352 lb 1.2 oz) 10/14/19 212 (!) 159.7 kg (352 lb 1.2 oz) 10/13/19 0845 (!) 159.7 kg (352 lb 1.2 oz) Physical Examination: GEN: elderly male in no apparent distress HEAD: normocephalic EYES: no conjunctival icterus or injection ENT: MMM, clear oropharynx NECK: supple, no cervical lymphadenpathy CV: RR at ~70 bpm, normal S1/S2, no murmurs RESP: CTAB without crackles or wheezes ABD: soft, NT/ND, BS+, no obvious masses/organomegaly SKIN: warm and dry, no rashes MSK: normal muscle bulk and tone PSYCH: mood is good, affect congruent NEURO: grossly non-focal LABS: BMP 140 109 32* 190* 4.3 25 1.5* CaMgPhos 8.6 1.9 LFT 34 133* 28 3.6 CBC 13.73* 12.8* 252 38.0* Coag 38* 1.1 Last labs from current encounter as of 10/16/19-17:22 Recent Labs Lab 10/14/19 0437 10/13/19 0515 10/12/19 0412 10/11/19 0523 10/10/19 0404 INR 1.1 1.0 1.1 1.2 1.3 PTT -- -- -- 38* 42* IMAGING: Reviewed in [facility], no new results. PROBLEM LIST Principal Problem: Hip fracture Active Problems: IDDM (insulin dependent diabetes mellitus) HTN (hypertension) CKD (chronic kidney disease) HIV (human immunodeficiency virus infection) Morbid obesity Atrial fibrillation Chronic anticoagulation Closed fracture of left hip, initial encounter Resolved Problems: * No resolved hospital problems. * ASSESSMENT & PLAN Hip fracture / mechanical ground level fall Night prior to admit sustained mechanical GLF. Presented to local ED and had CT which showe d comminuted intertrochanteric fracture of left hip. Transferred here for ortho evaluation. Patient hyperkalemic to 6.3 on admit which along with recent eliquis dosing made anesthesia and ortho weary of taking him back to surgery right away so surgery delayed by 2 days. -ortho consulted,s/p L hip cephalomedullary nailing by Dr. Parsons on 10/12/19 -prn analgesics and anti-emetics -PT/OT consults placed Hyperkalemia: present on admit due to poor po intake/decreased renal function, now back to normal CKD stage III: a bit volume down on admit, now back to baseline, avoid nephrotoxins Leukocytosis: no signs/symptoms of infection, suspect reactive, monitor Afib, chronic: continue eliquis and BB Heart failure on chronic oxygen therapy: not in acute exacerbation, continue cardiac meds TII DM: HgA1c on admit 9.0, LDISS and monitor BGs HTN: normotensive, continue home meds HLD: continue statin Gout: continue allopurinol HIV: continue ARRT S/p ICD/PPM: asymptomatic, noted device in place PPx: full dose anticoagulation as above Code status: Full Dispo: medically ready, PT/OT rec SNF, discussed with CM, now awaiting dispo Satya Pinto MD 5:22 PM 10/16/2019 Portions of this chart may have been copied from previous notes for continuity of care purp ose atya Pinto MD - 0 10/15/2019 1:19 PM PST [facility] Service: Hospitalist Progress Note Pt: Sarthak Nelson AGE/SEX: 68 y.o. male ROOM: [address] [place] [place] [address] : 1950 PCP: Jericho Cao MD ADMIT DATE: 10/10/2019 TODAY'S DATE: 10/15/2019 Hospital Day/Hospital Course: LOS: 5 days Mr. Nelson is a 68-year-old male with a history of A. fib on chronic anticoagulation with eliquis, heart failure on chronic oxygen, TII DM, HTN, HIV, ischemic CVA, s/p ICD/pacemaker who presents as a transfer from [facility] due to mechanical fall and resulta nt left hip fracture. Night prior to admit patient had a ground level fall which occurred wh ile walking from bathroom to bedroom. Pain was severe and he presented for further evaluatio n. Denied preceeding symptoms stating he tripped. Last time he took Eliquis was night prior to the fall. Patient initially brought to local ED, transferred to [facility] for orthopedic car e. Patient uses a walker at baseline and cannot walk more than half a block due to dyspnea. Also, patient with 1-3 falls occuring every week, and all of the events are related to lowe r extremity weakness. Workup on admit included a CT which revealed a left hip fracture. Orth o consulted and patient now s/p L hip cephalomedullary nailing by Dr. Parsons on 10/12/19. Tole rated surgery well. PT consulted and recommended SNF. Now awaiting placement. SUBJECTIVE: Constipated in morning and got an enema and subsequently had 2 bowel movements. Now feels w ell. Denies chest pain. Leg pain well controlled on meds. Scheduled Medications: [id number] 1 tablet Oral Daily allopurinol 100 mg Oral Daily apixaban 5 mg Oral 2 times per day atorvaSTATin 80 mg Oral Nightly finasteride 5 mg Oral Daily gabapentin 300 mg Oral BID insulin glargine 10 Units Subcutaneous 2 times per day insulin lispro 0-6 Units Subcutaneous 4x Daily WC and HS insulin lispro 5 Units Subcutaneous TID WC isosorbide mononitrate 30 mg Oral Daily metoprolol tartrate 25 mg Oral BID mirtazapine 15 mg Oral Daily after dinner nystatin Topical BID Continuous Infusions dextrose 10% PRN Medications acetaminophen, Hypoglycemia Management AND POCT Glucose AND dextrose AND dextro se 10%, eucerin, HYDROmorphone, lactulose, melatonin, oxyCODONE-acetaminophen, polyethylene glycol, prochlorperazine, senna, sodium phosphate Allergy: Allergies Allergen Reactions Amoxicillin Augmentin- throat swelling Ciprofloxacin Other reaction(s): ACUTE INTERSTITIAL NEPHRITIS Simvastatin Rash and Itching Sulfa Antibiotics Tegaderm Chg Dressing [Chlorhexidine] Itching Other reaction(s): VESICLES IN SKIN Tigecycline Itching and Hives Cefazolin Itching and Hives Cephalexin Itching Niacin Other reaction(s): FLUSHING Sulfamethoxazole-Trimethoprim Itching Acute interstitial nephritis Bee Venom Rash Tape [Adhesive & Tape] Triamcinolone Rash Vancomycin Itching OBJECTIVE: Vitals: BP 137/76 | Pulse 77 | Temp 36.7 C (98.1 F) (Oral) | Resp 16 | Ht 1.88 m (6' 2") | Wt (!) 159.7 kg (352 lb 1.2 oz) | SpO2 99% | BMI 45.20 kg/m I&O Detailed Table: Intake/Output Summary (Last 24 hours) at 10/15/2019 1320 Last data filed at 10/15/2019 0454 Gross per 24 hour Intake 800 ml Output Net 800 ml Patient Vitals for the past 96 hrs: Weight 10/14/19 2128 (!) 159.7 kg (352 lb 1.2 oz) 10/13/19 0845 (!) 159.7 kg (352 lb 1.2 oz) Physical Examination: GEN: elderly male in no apparent distress HEAD: normocephalic EYES: no conjunctival icterus or injection ENT: MMM, clear oropharynx NECK: supple, no cervical lymphadenpathy CV: RR at ~70 bpm, normal S1/S2, no murmurs RESP: CTAB without crackles or wheezes ABD: soft, NT/ND, BS+, no obvious masses/organomegaly SKIN: warm and dry, no rashes MSK: normal muscle bulk and tone PSYCH: mood is good, affect congruent NEURO: grossly non-focal LABS: BMP 140 109 32* 190* 4.3 25 1.5* CaMgPhos 8.6 1.9 LFT 34 133* 28 3.6 CBC 13.73* 12.8* 252 38.0* Coag 38* 1.1 Last labs from current encounter as of 10/15/19-13:20 Recent Labs Lab 10/14/19 0437 10/13/19 0515 10/12/19 0412 10/11/19 0523 10/10/19 0404 INR 1.1 1.0 1.1 1.2 1.3 PTT -- -- -- 38* 42* IMAGING: Reviewed in EPIC, no new results. PROBLEM LIST Principal Problem: Hip fracture Active Problems: IDDM (insulin dependent diabetes mellitus) HTN (hypertension) CKD (chronic kidney disease) HIV (human immunodeficiency virus infection) Morbid obesity Atrial fibrillation Chronic anticoagulation Closed fracture of left hip, initial encounter Resolved Problems: * No resolved hospital problems. * ASSESSMENT & PLAN Hip fracture / mechanical ground level fall Night prior to admit sustained mechanical GLF. Presented to local ED and had CT which showe d comminuted intertrochanteric fracture of left hip. Transferred here for ortho evaluation. Patient hyperkalemic to 6.3 on admit which along with recent eliquis dosing made anesthesia and ortho weary of taking him back to surgery right away so surgery delayed by 2 days. -ortho consulted,s/p L hip cephalomedullary nailing by Dr. Parsons on 10/12/19 -prn analgesics and anti-emetics -PT/OT consults placed Hyperkalemia: present on admit due to poor po intake/decreased renal function, now back to normal CKD stage III: a bit volume down on admit, now back to baseline, avoid nephrotoxins Leukocytosis: no signs/symptoms of infection, suspect reactive, monitor Afib, chronic: continue eliquis and BB Heart failure on chronic oxygen therapy: not in acute exacerbation, continue cardiac meds TII DM: HgA1c on admit 9.0, LDISS and monitor BGs HTN: normotensive, continue home meds HLD: continue statin Gout: continue allopurinol HIV: continue ARRT S/p ICD/PPM: asymptomatic, noted device in place PPx: full dose anticoagulation as above Code status: Full Dispo: medically ready, PT/OT rec SNF, discussed with CM, now awaiting dispo Satya Pinto MD 1:20 PM 10/15/2019 Portions of this chart may have been copied from previous notes for continuity of care purp ose atya Pinto MD - 0 10/14/2019 9:41 AM PST [facility] Service: Hospitalist Progress Note Pt: Sarthak Nelson AGE/SEX: 68 y.o. male ROOM: [address] [place] [address] : 1950 PCP: Jericho Cao MD ADMIT DATE: 10/10/2019 TODAY'S DATE: 10/14/2019 Hospital Day/Hospital Course: LOS: 4 days Mr. Nelson is a 68-year-old male with a history of A. fib on chronic anticoagulation with eliquis, heart failure on chronic oxygen, TII DM, HTN, HIV, ischemic CVA, s/p ICD/pacemaker who presents as a transfer from [facility] due to mechanical fall and resulta nt left hip fracture. Night prior to admit patient had a ground level fall which occurred wh ile walking from bathroom to bedroom. Pain was severe and he presented for further evaluatio n. Denied preceeding symptoms stating he tripped. Last time he took Eliquis was night prior to the fall. Patient initially brought to local ED, transferred to [facility] for orthopedic car e. Patient uses a walker at baseline and cannot walk more than half a block due to dyspnea. Also, patient with 1-3 falls occuring every week, and all of the events are related to lowe r extremity weakness. Workup on admit included a CT which revealed a left hip fracture. Orth opedic surgeon, Dr. Kelly, has been consulted and following. SUBJECTIVE: Patient shows concern this morning with going home. States he is amendable to SNF if that i s our recommendation. He knows he needs a lot of help. PT saw him yesterday and recommending SNF. Patient denies chest pain, dyspnea. Scheduled Medications: [id number] 1 tablet Oral Daily allopurinol 100 mg Oral Daily apixaban 5 mg Oral 2 times per day atorvaSTATin 80 mg Oral Nightly finasteride 5 mg Oral Daily gabapentin 300 mg Oral BID insulin glargine 10 Units Subcutaneous 2 times per day insulin lispro 0-6 Units Subcutaneous 4x Daily WC and HS insulin lispro 5 Units Subcutaneous TID WC isosorbide mononitrate 30 mg Oral Daily metoprolol tartrate 25 mg Oral BID mirtazapine 15 mg Oral Daily after dinner nystatin Topical BID Continuous Infusions dextrose 10% PRN Medications acetaminophen, Hypoglycemia Management AND POCT Glucose AND dextrose AND dextro se 10%, eucerin, HYDROmorphone, melatonin, oxyCODONE-acetaminophen, polyethylene glycol, pro chlorperazine, senna Allergy: Allergies Allergen Reactions Amoxicillin Augmentin- throat swelling Ciprofloxacin Other reaction(s): ACUTE INTERSTITIAL NEPHRITIS Simvastatin Rash and Itching Sulfa Antibiotics Tegaderm Chg Dressing [Chlorhexidine] Itching Other reaction(s): VESICLES IN SKIN Tigecycline Itching and Hives Cefazolin Itching and Hives Cephalexin Itching Niacin Other reaction(s): FLUSHING Sulfamethoxazole-Trimethoprim Itching Acute interstitial nephritis Bee Venom Rash Tape [Adhesive & Tape] Triamcinolone Rash Vancomycin Itching OBJECTIVE: Vitals: BP 112/64 | Pulse 93 | Temp 36.3 C (97.3 F) (Temporal) | Resp 18 | Ht 1.88 m (6' 2" ) | Wt (!) 159.7 kg (352 lb 1.2 oz) | SpO2 93% | BMI 45.20 kg/m I&O Detailed Table: Intake/Output Summary (Last 24 hours) at 10/14/2019 0941 Last data filed at 10/14/2019 0331 Gross per 24 hour Intake 2310 ml Output 700 ml Net 1610 ml Patient Vitals for the past 96 hrs: Weight 10/13/19 0845 (!) 159.7 kg (352 lb 1.2 oz) 10/11/19 0900 (!) 159.7 kg (352 lb 1.2 oz) Physical Examination: GEN: elderly male in no apparent distress HEAD: normocephalic EYES: no conjunctival icterus or injection ENT: MMM, clear oropharynx NECK: supple, no cervical lymphadenpathy CV: RR at ~70 bpm, normal S1/S2, no murmurs RESP: CTAB without crackles or wheezes ABD: soft, NT/ND, BS+, no obvious masses/organomegaly SKIN: warm and dry, no rashes MSK: normal muscle bulk and tone PSYCH: mood is good, affect congruent NEURO: grossly non-focal LABS: BMP 139 110* 42* 172* 4.4 23 1.8* CaMgPhos 8.5 1.9 LFT 34 133* 28 3.6 CBC 13.73* 12.8* 252 38.0* Coag 38* 1.1 Last labs from current encounter as of 10/14/19-09:41 Recent Labs Lab 10/14/19 0437 10/13/19 0515 10/12/19 0412 10/11/19 0523 10/10/19 0404 INR 1.1 1.0 1.1 1.2 1.3 PTT -- -- -- 38* 42* IMAGING: Reviewed in EPIC, no new results. PROBLEM LIST Principal Problem: Hip fracture Active Problems: IDDM (insulin dependent diabetes mellitus) HTN (hypertension) CKD (chronic kidney disease) HIV (human immunodeficiency virus infection) Morbid obesity Atrial fibrillation Chronic anticoagulation Closed fracture of left hip, initial encounter Resolved Problems: * No resolved hospital problems. * ASSESSMENT & PLAN Hip fracture / mechanical ground level fall Night prior to admit sustained mechanical GLF. Presented to local ED and had CT which showe d comminuted intertrochanteric fracture of left hip. Transferred here for ortho evaluation. Patient hyperkalemic to 6.3 on admit which along with recent eliquis dosing made anesthesia and ortho weary of taking him back to surgery right away so surgery delayed by 2 days. -ortho consulted,s/p L hip cephalomedullary nailing by Dr. Parsons on 10/12/19 -prn analgesics and anti-emetics -PT/OT consults placed Hyperkalemia Due to poor po intake. Presented with K 6.3, now back to normal baseline. -dc maintenance IV fluids -repeat BMP tomororw CKD stage III: at baseline, a bit volume down on admit, hydrating, avoid nephrotoxins and m onitor renal function closely Leukocytosis: no signs/symptoms of infection, suspect reactive, monitor Afib, chronic: continue eliquis and BB Heart failure on chronic oxygen therapy: not in acute exacerbation, continue cardiac meds TII DM: HgA1c on admit 9.0, LDISS and monitor BGs HTN: normotensive, continue home meds HLD: continue statin Gout: continue allopurinol HIV: continue ARRT S/p ICD/PPM: asymptomatic, noted device in place PPx: full dose anticoagulation as above Code status: Full Dispo: pending PT/OT rec SNF, discussed with CM who will talk to patient and send referrals today Satya Pinto MD 9:41 AM 10/14/2019 Portions of this chart may have been copied from previous notes for continuity of care purp ose [facility] OTR /L - 10/13/2019 2:48 PM PST MISSED OCCUPATIONAL THERAPY VISIT: Therapy attempted to see the following patient today: Sarthak Nelson Missed Visit (patient unavailable)(with RN cares) The reason for the missed visit was: Unavailable with RN cares. Plan for follow up as pt ap propriate/ census permits. Satya Sheriff MD - 10/13/2019 11:00 AM PST [facility] Service: Hospitalist Progress Note Pt: Sarthak Nelson AGE/SEX: 68 y.o. male ROOM: [facility]- : 1950 PCP: Jericho Cao MD ADMIT DATE: 10/10/2019 TODAY'S DATE: 10/13/2019 Hospital Day/Hospital Course: LOS: 3 days Mr. Nelson is a 68-year-old male with a history of A. fib on chronic anticoagulation with eliquis, heart failure on chronic oxygen, TII DM, HTN, HIV, ischemic CVA, s/p ICD/pacemaker who presents as a transfer from [facility] due to mechanical fall and resulta nt left hip fracture. Night prior to admit patient had a ground level fall which occurred wh ile walking from bathroom to bedroom. Pain was severe and he presented for further evaluatio n. Denied preceeding symptoms stating he tripped. Last time he took Eliquis was night prior to the fall. Patient initially brought to local ED, transferred to [facility] for orthopedic car e. Patient uses a walker at baseline and cannot walk more than half a block due to dyspnea. Also, patient with 1-3 falls occuring every week, and all of the events are related to lowe r extremity weakness. Workup on admit included a CT which revealed a left hip fracture. Orth opedic surgeon, Dr. Kelly, has been consulted and following. SUBJECTIVE: Patient felt well during my interview with him. Bedside RN later pages me to tell me he is quite upset due to his restricted diet and need for monitoring of urinary retention from ove rnight. Apparently they had to straight cath him for inability to pee and he subsequently dixon d 1800cc of urine removed. He denies fevers. Scheduled Medications: [id number] 1 tablet Oral Daily allopurinol 100 mg Oral Daily apixaban 5 mg Oral 2 times per day atorvaSTATin 80 mg Oral Nightly finasteride 5 mg Oral Daily gabapentin 300 mg Oral BID insulin glargine 10 Units Subcutaneous 2 times per day insulin lispro 0-6 Units Subcutaneous 4x Daily WC and HS insulin lispro 5 Units Subcutaneous TID WC isosorbide mononitrate 30 mg Oral Daily metoprolol tartrate 25 mg Oral BID mirtazapine 15 mg Oral Daily after dinner nystatin Topical BID Continuous Infusions dextrose 10% sodium chloride 0.9% 50 mL/hr at 10/13/19 0107 PRN Medications acetaminophen, Hypoglycemia Management AND POCT Glucose AND dextrose AND dextro se 10%, eucerin, HYDROmorphone, melatonin, oxyCODONE-acetaminophen, polyethylene glycol, pro chlorperazine Allergy: Allergies Allergen Reactions Amoxicillin Augmentin- throat swelling Ciprofloxacin Other reaction(s): ACUTE INTERSTITIAL NEPHRITIS Simvastatin Rash and Itching Sulfa Antibiotics Tegaderm Chg Dressing [Chlorhexidine] Itching Other reaction(s): VESICLES IN SKIN Tigecycline Itching and Hives Cefazolin Itching and Hives Cephalexin Itching Niacin Other reaction(s): FLUSHING Sulfamethoxazole-Trimethoprim Itching Acute interstitial nephritis Bee Venom Rash Tape [Adhesive & Tape] Triamcinolone Rash Vancomycin Itching OBJECTIVE: Vitals: BP 112/61 | Pulse 69 | Temp 36.5 C (97.7 F) (Oral) | Resp 20 | Ht 1.88 m (6' 2") | Wt (!) 159.7 kg (352 lb 1.2 oz) | SpO2 100% | BMI 45.20 kg/m I&O Detailed Table: Intake/Output Summary (Last 24 hours) at 10/13/2019 1100 Last data filed at 10/13/2019 1025 Gross per 24 hour Intake 2510.71 ml Output 1850 ml Net 660.71 ml Patient Vitals for the past 96 hrs: Weight 10/13/19 0845 (!) 159.7 kg (352 lb 1.2 oz) 10/11/19 0900 (!) 159.7 kg (352 lb 1.2 oz) 10/10/19 0111 (!) 159.7 kg (352 lb 1.6 oz) Physical Examination: GEN: elderly male in no apparent distress HEAD: normocephalic EYES: no conjunctival icterus or injection ENT: MMM, clear oropharynx NECK: supple, no cervical lymphadenpathy CV: RR at ~70 bpm, normal S1/S2, no murmurs RESP: CTAB without crackles or wheezes ABD: soft, NT/ND, BS+, no obvious masses/organomegaly SKIN: warm and dry, no rashes MSK: normal muscle bulk and tone PSYCH: mood is good, affect congruent NEURO: grossly non-focal LABS: BMP 138 108 33* 195* 5.3* 23 1.7* CaMgPhos 8.2* 1.9 LFT 34 133* 28 3.6 CBC 13.73* 12.8* 252 38.0* Coag 38* 1.0 Last labs from current encounter as of 10/13/19-11:00 Recent Labs Lab 10/13/19 0515 10/12/19 0412 10/11/19 0523 10/10/19 0404 INR 1.0 1.1 1.2 1.3 PTT -- -- 38* 42* IMAGING: Reviewed in [facility], no new results. PROBLEM LIST Principal Problem: Hip fracture Active Problems: IDDM (insulin dependent diabetes mellitus) HTN (hypertension) CKD (chronic kidney disease) HIV (human immunodeficiency virus infection) Morbid obesity Atrial fibrillation Chronic anticoagulation Closed fracture of left hip, initial encounter Resolved Problems: * No resolved hospital problems. * ASSESSMENT & PLAN Hip fracture / mechanical ground level fall Night prior to admit sustained mechanical GLF. Presented to local ED and had CT which showe d comminuted intertrochanteric fracture of left hip. Transferred here for ortho evaluation. Patient hyperkalemic to 6.3 on admit which along with recent eliquis dosing made anesthesia and ortho weary of taking him back to surgery right away so surgery delayed by 2 days. -ortho consulted,s/p L hip cephalomedullary nailing by Dr. Parsons on 10/12/19 -prn analgesics and anti-emetics -PT/OT consults placed Hyperkalemia Due to poor po intake. Presented with K 6.3, improved to normal and now 5.3 today. -continue maintenance IV fluids -repeat BMP 1600 CKD stage III: at baseline, a bit volume down on admit, hydrating, avoid nephrotoxins and m onitor renal function closely Leukocytosis: no signs/symptoms of infection, suspect reactive, trend for now Afib, chronic: hold eliquis (last dose 10/09 in evening), continue BB Heart failure on chronic oxygen therapy: not in acute exacerbation, continue cardiac meds TII DM: HgA1c on admit 9.0, LDISS and monitor BGs HTN: normotensive, continue home meds HLD: continue statin Gout: continue allopurinol HIV: continue ARRT S/p ICD/PPM: asymptomatic, noted device in place PPx: full dose anticoagulation as above Code status: Full Dispo: pending PT/OT recs following surgery Satya Pinto MD 11:00 AM 10/13/2019 Portions of this chart may have been copied from previous notes for continuity of care purp ose Tata Shipley RN - 10/13/2019 5:17 AM PSTPt sleeping comfortably most of the night. No injuri es reported, straight cath x1 for 1800, and medicated x1 for pain. WCTM. End of chart check complete. Wendy Prescott RN avis , Raul Donovan RN - 10/12/2019 5:32 PM PSTEnd of shift chart audit completedElectronically sign ed by Raul Chino RN at 10/12/2019 5:32 PM Satya Sheriff MD - 10/12/2019 4:03 PM PS T [facility] Service: Hospitalist Progress Note Pt: Sarthak Nelson AGE/SEX: 68 y.o. male [place] [facility] [place] [place] 1950 PCP: Jericho Cao MD ADMIT DATE: 10/10/2019 TODAY'S DATE: 10/12/2019 Hospital Day/Hospital Course: LOS: 2 days Mr. Nelson is a 68-year-old male with a history of A. fib on chronic anticoagulation with eliquis, heart failure on chronic oxygen, TII DM, HTN, HIV, ischemic CVA, s/p ICD/pacemaker who presents as a transfer from [facility] due to mechanical fall and resulta nt left hip fracture. Night prior to admit patient had a ground level fall which occurred wh ile walking from bathroom to bedroom. Pain was severe and he presented for further evaluatio n. Denied preceeding symptoms stating he tripped. Last time he took Eliquis was night prior to the fall. Patient initially brought to local ED, transferred to [facility] for orthopedic car e. Patient uses a walker at baseline and cannot walk more than half a block due to dyspnea. Also, patient with 1-3 falls occuring every week, and all of the events are related to lowe r extremity weakness. Workup on admit included a CT which revealed a left hip fracture. Orth opedic surgeon, Dr. Kelly, has been consulted and following. SUBJECTIVE: Patient feels well this morning. Awaiting his surgery which he has been told will be tomorr ow. Kidney function improved which he is happy to hear. Denies chest pain, dyspnea. Scheduled Medications: [NOV Hold] [id number]-[id number]-[id number] 1 tablet Oral Daily [NOV Hold] allopurinol 100 mg Oral Daily [MAR Hold] atorvaSTATin 80 mg Oral Nightly [Nov] finasteride 5 mg Oral Daily [Nov] gabapentin 300 mg Oral BID [Nov] heparin 5,000 Units Subcutaneous 2 times per day [Nov] insulin glargine 10 Units Subcutaneous 2 times per day [Nov] insulin lispro 0-6 Units Subcutaneous 4x Daily WC and HS [Nov] insulin lispro 5 Units Subcutaneous TID WC [Nov] isosorbide mononitrate 30 mg Oral Daily [Nov] metoprolol tartrate 25 mg Oral BID [Nov] mirtazapine 15 mg Oral Daily after dinner [Nov] nystatin Topical BID Continuous Infusions [Nov] dextrose 10% sodium chloride 0.9% 50 mL/hr at 10/11/19 1023 PRN Medications [Nov] acetaminophen, Hypoglycemia Management AND POCT Glucose AND [Nov] d extrose AND [Nov] dextrose 10%, [Nov] eucerin, [Nov] HYDROmorphone, [Nov] melatonin, [Nov] oxyCODONE-acetaminophen, [Nov] polyethylene glycol, [Nov ld] prochlorperazine Allergy: Allergies Allergen Reactions Amoxicillin Augmentin- throat swelling Ciprofloxacin Other reaction(s): ACUTE INTERSTITIAL NEPHRITIS Simvastatin Rash and Itching Sulfa Antibiotics Tegaderm Chg Dressing [Chlorhexidine] Itching Other reaction(s): VESICLES IN SKIN Tigecycline Itching and Hives Cefazolin Itching and Hives Cephalexin Itching Niacin Other reaction(s): FLUSHING Sulfamethoxazole-Trimethoprim Itching Acute interstitial nephritis Bee Venom Rash Tape [Adhesive & Tape] Triamcinolone Rash Vancomycin Itching OBJECTIVE: Vitals: BP 149/77 | Pulse 107 | Temp 37.1 C (98.7 F) (Skin) | Resp 20 | Ht 1.88 m (6' 2") | Wt (!) 159.7 kg (352 lb 1.2 oz) | SpO2 95% | BMI 45.20 kg/m I&O Detailed Table: Intake/Output Summary (Last 24 hours) at 10/12/2019 1603 Last data filed at 10/12/2019 1448 Gross per 24 hour Intake 1999.28 ml Output 50 ml Net 1949.28 ml Patient Vitals for the past 96 hrs: Weight 01/22/20 0900 (!) 159.7 kg (352 lb 1.2 oz) 10/10/19 0111 (!) 159.7 kg (352 lb 1.6 oz) Physical Examination: GEN: elderly male in no apparent distress HEAD: normocephalic EYES: no conjunctival icterus or injection ENT: MMM, clear oropharynx NECK: supple, no cervical lymphadenpathy CV: RR at ~70 bpm, normal S1/S2, no murmurs RESP: CTAB without crackles or wheezes ABD: soft, NT/ND, BS+, no obvious masses/organomegaly SKIN: warm and dry, no rashes MSK: normal muscle bulk and tone PSYCH: mood is good, affect congruent NEURO: grossly non-focal LABS: BMP 140 108 34* 135* 4.4 25 1.7* CaMgPhos 8.7 1.9 LFT 34 133* 28 3.6 CBC 14.62* 13.4 232 40.9 Coag 38* 1.1 Last labs from current encounter as of 10/12/19-16:03 Recent Labs Lab 10/12/19 0412 10/11/19 0523 10/10/19 0404 INR 1.1 1.2 1.3 PTT -- 38* 42* IMAGING: Reviewed in EPIC, no new results. PROBLEM LIST Principal Problem: Hip fracture Active Problems: IDDM (insulin dependent diabetes mellitus) HTN (hypertension) CKD (chronic kidney disease) HIV (human immunodeficiency virus infection) Morbid obesity Atrial fibrillation Chronic anticoagulation Closed fracture of left hip, initial encounter Resolved Problems: * No resolved hospital problems. * ASSESSMENT & PLAN Hip fracture / mechanical ground level fall Night prior to admit sustained mechanical ground level fall. Presented to local ED and had CT which showed comminuted intertrochanteric fracture of left hip. Transferred here for orth o evaluation. Prior echo with normal EF 55-60%, moderate LVH. EKG here without acute ischemi c changes. High risk of complications from surgery due to chronic co-morbidities and age. Heladio chong hyperkalemic to 6.3 on admit which along with recent eliquis dosing made anesthesia an d ortho weary of taking him back to surgery however hyperK now resolved and its been >48h si nce last dose of eliquis. Patient otherwise reports full understanding of risks of surgery a nd wishes to proceed. -ortho consulted, plan for OR today with Dr. Parsons -prn analgesics and anti-emetics -PT/OT consults placed Hyperkalemia: Due to poor po intake. Presented with K 6.3, now normal. Continue maintenance IV fluids. CKD stage III: at baseline, a bit volume down on admit, hydrating, avoid nephrotoxins and m onitor renal function closely Leukocytosis: no signs/symptoms of infection, suspect reactive, trend for now Afib, chronic: hold eliquis (last dose 10/09 in evening), continue BB Heart failure on chronic oxygen therapy: not in acute exacerbation, continue cardiac meds TII DM: HgA1c on admit 9.0, LDISS and monitor BGs HTN: normotensive, continue home meds HLD: continue statin Gout: continue allopurinol HIV: continue ARRT S/p ICD/PPM: asymptomatic, noted device in place PPx: SQH Code status: Full Dispo: pending PT/OT recs following surgery Satya Pinto MD 4:03 PM 10/12/2019 Portions of this chart may have been copied from previous notes for continuity of care purp ose Tata Shipley RN - 10/12/2019 4:44 AM PSTPt sleeping comfortably most of the night. No injuri es reported, but complaining of severe pain with turns. WCTM.. End of chart check complete. Wendy Prescott RN Satya Sheriff MD - 10/11/2019 10:04 AM PSTFormatting of this note might be different from the or iginal. [facility] Service: Hospitalist Progress Note Pt: Sarthak Nelson AGE/SEX: 68 y.o. male ROOM: 435/435-01 : 1950 PCP: Jericho Cao MD ADMIT DATE: 10/10/2019 TODAY'S DATE: 10/11/2019 Hospital Day/Hospital Course: LOS: 1 day Mr. Nelson is a 68-year-old male with a history of A. fib on chronic anticoagulation with eliquis, heart failure on chronic oxygen, TII DM, HTN, HIV, ischemic CVA, s/p ICD/pacemaker who presents as a transfer from [facility] due to mechanical fall and resulta nt left hip fracture. Night prior to admit patient had a ground level fall which occurred wh ile walking from bathroom to bedroom. Pain was severe and he presented for further evaluatio n. Denied preceeding symptoms stating he tripped. Last time he took Eliquis was night prior to the fall. Patient initially brought to local ED, transferred to [facility] for orthopedic car e. Patient uses a walker at baseline and cannot walk more than half a block due to dyspnea. Also, patient with 1-3 falls occuring every week, and all of the events are related to lowe r extremity weakness. Workup on admit included a CT which revealed a left hip fracture. Orth opedic surgeon, Dr. Kelly, has been consulted and following. SUBJECTIVE: Patient feels well this morning. Awaiting his surgery which he has been told will be tomorr ow. Kidney function improved which he is happy to hear. Denies chest pain, dyspnea. Scheduled Medications: allopurinol 100 mg Oral Daily atorvaSTATin 80 mg Oral Nightly finasteride 5 mg Oral Daily gabapentin 300 mg Oral BID heparin 5,000 Units Subcutaneous 2 times per day insulin glargine 10 Units Subcutaneous 2 times per day insulin lispro 0-6 Units Subcutaneous 4x Daily WC and HS insulin lispro 5 Units Subcutaneous TID WC isosorbide mononitrate 30 mg Oral Daily metoprolol tartrate 25 mg Oral BID mirtazapine 15 mg Oral Daily after dinner Continuous Infusions dextrose 10% sodium chloride 0.9% 75 mL/hr at 10/11/19 0610 PRN Medications acetaminophen, Hypoglycemia Management AND POCT Glucose AND dextrose AND dextro se 10%, HYDROmorphone, melatonin, oxyCODONE-acetaminophen, polyethylene glycol, prochlorpera zine Allergy: Allergies Allergen Reactions Amoxicillin Augmentin- throat swelling Ciprofloxacin Other reaction(s): ACUTE INTERSTITIAL NEPHRITIS Simvastatin Rash and Itching Sulfa Antibiotics Tegaderm Chg Dressing [Chlorhexidine] Itching Other reaction(s): VESICLES IN SKIN Tigecycline Itching and Hives Cefazolin Itching and Hives Cephalexin Itching Niacin Other reaction(s): FLUSHING Sulfamethoxazole-Trimethoprim Itching Acute interstitial nephritis Bee Venom Rash Tape [Adhesive & Tape] Triamcinolone Rash Vancomycin Itching OBJECTIVE: Vitals: BP 117/49 | Pulse 86 | Temp 36.8 C (98.2 F) (Oral) | Resp 18 | Ht 1.88 m (6' 2") | Wt (!) 159.7 kg (352 lb 1.6 oz) | SpO2 99% | BMI 45.21 kg/m I&O Detailed Table: Intake/Output Summary (Last 24 hours) at 10/11/2019 1004 Last data filed at 10/11/2019 0610 Gross per 24 hour Intake 2819 ml Output Net 2819 ml Patient Vitals for the past 96 hrs: Weight 10/10/19 0111 (!) 159.7 kg (352 lb 1.6 oz) Physical Examination: GEN: elderly male in no apparent distress HEAD: normocephalic EYES: no conjunctival icterus or injection ENT: MMM, clear oropharynx NECK: supple, no cervical lymphadenpathy CV: RR at ~70 bpm, normal S1/S2, no murmurs RESP: CTAB without crackles or wheezes ABD: soft, NT/ND, BS+, no obvious masses/organomegaly SKIN: warm and dry, no rashes MSK: normal muscle bulk and tone PSYCH: mood is good, affect congruent NEURO: grossly non-focal LABS: BMP 139 105 30* 136* 4.6 26 1.72* CaMgPhos 8.9 1.9 LFT 34 133* 28 3.6 CBC 14.09* 13.4 228 40.0 Coag 38* 1.2 Last labs from current encounter as of 10/11/19-10:04 Recent Labs Lab 10/11/19 0523 10/10/19 0404 INR 1.2 1.3 PTT 38* 42* IMAGING: Reviewed in [facility], no new results. PROBLEM LIST Principal Problem: Hip fracture Active Problems: IDDM (insulin dependent diabetes mellitus) HTN (hypertension) CKD (chronic kidney disease) HIV (human immunodeficiency virus infection) Morbid obesity Atrial fibrillation Chronic anticoagulation Closed fracture of left hip, initial encounter Resolved Problems: * No resolved hospital problems. * ASSESSMENT & PLAN Hip fracture / mechanical ground level fall Night prior to admit sustained mechanical ground level fall. Presented to local ED and had CT which showed comminuted intertrochanteric fracture of left hip. Transferred here for orth o evaluation. Prior echo with normal EF 55-60%, moderate LVH. EKG here without acute ischemi c changes. High risk of complications from surgery due to chronic co-morbidities and age. Pa tient hyperkalemic to 6.3 on admit, see below, and after discussion with anesthesia patient not yet cleared for surgery. Will improve renal function and if improved can go for surgery tomorrow. Patient otherwise reports full understanding of risks of surgery and wishes to pro ceed. -ortho consulted, plan for OR tomorrow with Dr. Parsons -prn analgesics and anti-emetics -PT/OT consults placed Hyperkalemia Due to poor po intake. Presented with K 6.3, now normal at 4.6. -maintenance IV fluids -dc telemetry -space BMPs to daily CKD stage III: at baseline, a bit volume down on admit, hydrating, avoid nephrotoxins and m onitor renal function closely Leukocytosis: no signs/symptoms of infection, suspect reactive, trend for now Afib, chronic: hold eliquis (last dose 10/09 in evening), continue BB, dc telemetry Heart failure on chronic oxygen therapy: not in acute exacerbation, continue cardiac meds TII DM: HgA1c on admit 9.0, LDISS and monitor BGs HTN: normotensive, continue home meds HLD: continue statin Gout: allopurinol HIV: continue ARRT S/p ICD/PPM: asymptomatic, noted device in place PPx: SQH Code status: Full Dispo: pending PT/OT recs following surgery Satya Pinto MD 10:04 AM 10/11/2019 Portions of this chart may have been copied from previous notes for continuity of care purp ose Joann Nichols RN - 10/11/2019 6:56 AM PSTPt given pain meds twice last night. C/o of severe pain when being ch anged. Voiding large amounts. Needing 4 people for turns. End of shift chart check complete. Joann Meng RN 10/11/2019 0658 Satya Sheriff MD - 10/10/2019 2:51 PM PST [facility] Service: Hospitalist Progress Note Pt: Sarthak Nelson AGE/SEX: 68 y.o. male ROOM: [address] [place] [address] : 1950 PCP: Jericho Cao MD ADMIT DATE: 10/10/2019 TODAY'S DATE: 10/10/2019 Hospital Day/Hospital Course: LOS: 0 days Mr. Nelson is a 68-year-old male with a history of A. fib on chronic anticoagulation with eliquis, heart failure on chronic oxygen, TII DM, HTN, HIV, ischemic CVA, s/p ICD/pacemaker who presents as a transfer from [facility] due to mechanical fall and resulta nt left hip fracture. Night prior to admit patient had a ground level fall which occurred wh ile walking from bathroom to bedroom. Pain was severe and he presented for further evaluatio n. Denied preceeding symptoms stating he tripped. Last time he took Eliquis was night prior to the fall. Patient initially brought to local ED, transferred to [facility] for orthopedic car e. Patient uses a walker at baseline and cannot walk more than half a block due to dyspnea. Also, patient with 1-3 falls occuring every week, and all of the events are related to lowe r extremity weakness. Workup on admit included a CT which revealed a left hip fracture. Orth opedic surgeon, Dr. Kelly, has been consulted and following. SUBJECTIVE: Patient currently NPO as she awaits surgical repair of her hip fracture. She has been told it will be later this afternoon. She is a bit nervous about surgery but reports willingness to proceed despite surgical risks. Hip pain well controlled on current regimen. Denies chest pain, dyspnea. Scheduled Medications: [id number] 1 tablet Oral Daily allopurinol 100 mg Oral Daily atorvaSTATin 80 mg Oral Nightly finasteride 5 mg Oral Daily gabapentin 300 mg Oral BID heparin 5,000 Units Subcutaneous 2 times per day insulin glargine 10 Units Subcutaneous 2 times per day insulin lispro 0-6 Units Subcutaneous 4x Daily WC and HS insulin lispro 5 Units Subcutaneous TID WC isosorbide mononitrate 30 mg Oral Daily metoprolol tartrate 25 mg Oral BID mirtazapine 15 mg Oral Daily after dinner Continuous Infusions dextrose 10% sodium chloride 0.9% 75 mL/hr at 10/10/19 0543 PRN Medications acetaminophen, Hypoglycemia Management AND POCT Glucose AND dextrose AND dextro se 10%, HYDROmorphone, melatonin, oxyCODONE-acetaminophen, polyethylene glycol, prochlorpera zine Allergy: Allergies Allergen Reactions Amoxicillin Augmentin- throat swelling Ciprofloxacin Other reaction(s): ACUTE INTERSTITIAL NEPHRITIS Simvastatin Rash and Itching Sulfa Antibiotics Tegaderm Chg Dressing [Chlorhexidine] Itching Other reaction(s): VESICLES IN SKIN Tigecycline Itching and Hives Cefazolin Itching and Hives Cephalexin Itching Niacin Other reaction(s): FLUSHING Sulfamethoxazole-Trimethoprim Itching Acute interstitial nephritis Bee Venom Rash Tape [Adhesive & Tape] Triamcinolone Rash Vancomycin Itching OBJECTIVE: Vitals: BP 135/63 | Pulse 94 | Temp 36.5 C (97.7 F) | Resp 22 | Ht 1.88 m (6' 2") | Wt (!) 159.7 kg (352 lb 1.6 oz) | SpO2 95% | BMI 45.21 kg/m I&O Detailed Table: Intake/Output Summary (Last 24 hours) at 10/10/2019 1451 Last data filed at 10/10/2019 0348 Gross per 24 hour Intake 500 ml Output Net 500 ml Patient Vitals for the past 96 hrs: Weight 10/10/19 0111 (!) 159.7 kg (352 lb 1.6 oz) Physical Examination: GEN: elderly male in no apparent distress HEAD: normocephalic EYES: no conjunctival icterus or injection ENT: MMM, clear oropharynx NECK: supple, no cervical lymphadenpathy CV: RR at ~70 bpm, normal S1/S2, no murmurs RESP: CTAB without crackles or wheezes ABD: soft, NT/ND, BS+, no obvious masses/organomegaly SKIN: warm and dry, no rashes MSK: normal muscle bulk and tone PSYCH: mood is good, affect congruent NEURO: grossly non-focal LABS: BMP 136 102 35* 241* 4.9 26 1.82* CaMgPhos 9.2 1.9 LFT 34 133* 28 3.6 CBC 17.36* 15.9 249 47.0 Coag 42* 1.3 Last labs from current encounter as of 10/10/19-14:51 Recent Labs Lab 10/10/19 0404 INR 1.3 PTT 42* IMAGING: Reviewed in [facility], no new results. PROBLEM LIST Principal Problem: Hip fracture Active Problems: IDDM (insulin dependent diabetes mellitus) HTN (hypertension) CKD (chronic kidney disease) HIV (human immunodeficiency virus infection) Morbid obesity Atrial fibrillation Chronic anticoagulation Closed fracture of left hip, initial encounter Resolved Problems: * No resolved hospital problems. * ASSESSMENT & PLAN Hip fracture / mechanical ground level fall Night prior to admit sustained mechanical ground level fall. Presented to local ED and had CT which showed comminuted intertrochanteric fracture of left hip. Transferred here for orth o evaluation. Prior echo with normal EF 55-60%, moderate LVH. EKG here without acute ischemi c changes. High risk of complications from surgery due to chronic co-morbidities and age. Pa arlette hyperkalemic to 6.3 on admit, see below, and after discussion with anesthesia patient not yet cleared for surgery. Will improve renal function and if improved can go for surgery tomorrow. Patient otherwise reports full understanding of risks of surgery and wishes to pro ceed. -ortho, Dr. Kelly, consulted, patient NPO at [facility] for OR -prn analgesics and anti-emetics -maintenance IV fluids -PT/OT consults placed Hyperkalemia Due to poor po intake, hydrating, K improving. -maintenance IV fluids -telemetry -space BMPs to q6h CKD stage III: at baseline, a bit volume down on admit, hydrating, avoid nephrotoxins and m onitor renal function closely Leukocytosis: no signs/symptoms of infection, suspect reactive, trend for now Afib, chronic: hold eliquis (last dose night prior to admit), continue BB, telemetry Heart failure on chronic oxygen therapy: not in acute exacerbation, continue cardiac meds TII DM: HgA1c on admit 9.0, LDISS and monitor BGs HTN: normotensive, continue home meds HLD: continue statin Gout: allopurinol HIV: continue ARRT S/p ICD/PPM: asymptomatic, noted device in place PPx: SQH Code status: Full Dispo: pending PT/OT recs following surgery Satya Pinto MD 2:51 PM 10/10/2019 Portions of this chart may have been copied from previous notes for continuity of care purp ose documented in this en counter H&P Notes Rafi Aguayo MD - 10/10/2019 1:31 AM PSTFormatting of this note might be diffe rent from the original. Patient Name: Sarthak Nelson Date of Admission: 10/10/2019 Referring Provider: [facility] ED Reason for admission: Hip fracture, multiple medical comorbidities Chief Complaint: Fall, hip pain HPI: Patient of a 68-year-old male with a significant past medical history of A. fib on chronic Eliquis therapy, heart failure on chronic oxygen therapy, diabetes, hypertension, HIV, ische felipe CVA, status post ICD/pacemaker who comes as a transfer from [facility] due t o mechanical fall and left hip fracture. Patient refers that yesterday night, when he was walking from the bathroom to his bedroom, his left leg gave out and he fell. After which, he was not able to stand up due to severe p ain on her left hip. He also refers head trauma but denies any loss of consciousness. He d enies any lightheadedness, palpitations, dizziness prior or after the event. Patient is abl e to remember the whole event. There was no sphincter relaxation, tongue biting or seizure activity. Patient refers been compliant with all his medications, the last time he took Nicole michele was last night prior to the fall. Patient was brought to the [facility] and [facility] but due to patient's multiple comorbidi ties, the patient was transferred to [facility] for further management. Patient refers poor functional status at baseline, he does require a walker and not able to walk more than half a block due to dyspnea. Also, the patient refers 1-3 episodes of falli ng every week, and all of the events are related to lower extremity weakness. In the ED at [facility], the patient has remained hemodynamically stable. CT is consistent with a left hip fracture. Orthopedic, Dr. Kelly, has been consulted. At this point, t he patient will be admitted under the hospital service for further management PMH: History reviewed. No pertinent past medical history. PSH: History reviewed. No pertinent surgical history. Medications: No current facility-administered medications on file prior to encounter. Current Outpatient Medications on File Prior to Encounter Medication Sig Dispense Refill wigfysmz-whumqontesou-pqyqSEHziv (TRIUMEQ) 600-50-300 mg per tablet Take 1 tablet by mo uth Daily. Indications: HIV Disease allopurinol (ZYLOPRIM) 100 mg tablet Take 100 mg by mouth Daily. apixaban (ELIQUIS) 5 mg tablet Take 1 tablet by mouth every 12 hours. 60 tablet 1 atorvaSTATin (LIPITOR) 80 MG tablet Take 1 tablet by mouth Daily. 30 tablet 1 bacitracin 500 UNIT/GM ointment Apply to the open sore on the lateral right calf 1 Appl ication 1 diphenhydrAMINE (BENADRYL) 50 mg capsule Take 1 capsule by mouth daily (after dinner). (Patient not taking: Reported on 10/10/2019) 30 capsule 1 finasteride (PROSCAR) 5 mg tablet Take 1 tablet by mouth Daily. 30 tablet 1 gabapentin (NEURONTIN) 600 MG tablet Take 300 mg by mouth 2 times daily. HYDROcodone-acetaminophen (NORCO) 5-325 mg per tablet Take 1 tablet by mouth every 6 ho urs as needed for Pain. (Patient not taking: Reported on 10/10/2019) 50 tablet 0 insulin glargine (LANTUS) 100 units/mL injection (vial) Inject 10 Units under the skin 2 times daily. insulin lispro (HUMALOG KWIKPEN) 100 units/mL injection (pen) Inject 0-6 Units under th e skin 4 times daily (with meals and nightly). 2 pen 1 insulin lispro (HUMALOG KWIKPEN) 100 units/mL injection (pen) Inject 15 Units under the skin 3 times daily (with meals). 3 pen 1 isosorbide mononitrate (IMDUR) 30 mg ER tablet Take 1 tablet by mouth Daily. 30 tablet 1 metoprolol tartrate (LOPRESSOR) 25 mg tablet Take 1 tablet by mouth 2 times daily. 60 t ablet 1 mirtazapine (REMERON) 7.5 MG tablet Take 2 tablets by mouth daily (after dinner). 30 ta blet 1 oxyCODONE-acetaminophen (PERCOCET) 5-325 mg per tablet Take 1 tablet by mouth every 6 h ours as needed for Pain. [employer] 450 MG CAPS Take 900 mg by mouth 2 times daily. spironolactone (ALDACTONE) 50 mg tablet Take 50 mg by mouth Daily. tolnaftate (TINACTIN) 1% powder Apply topically 2 times daily. Allergies: Allergies Allergen Reactions Amoxicillin Augmentin- throat swelling Ciprofloxacin Other reaction(s): ACUTE INTERSTITIAL NEPHRITIS Simvastatin Rash and Itching Sulfa Antibiotics Tegaderm Chg Dressing [Chlorhexidine] Itching Other reaction(s): VESICLES IN SKIN Tigecycline Itching and Hives Cefazolin Itching and Hives Cephalexin Itching Niacin Other reaction(s): FLUSHING Sulfamethoxazole-Trimethoprim Itching Acute interstitial nephritis Bee Venom Rash Tape [Adhesive & Tape] Triamcinolone Rash Vancomycin Itching FH: family history is not on file. SH: reports that he quit smoking about 36 years ago. He has a 25.50 pack-year smoking history. He quit smokeless tobacco use about 36 years ago. Review of Systems Constitutional: Negative for chills, fever and malaise/fatigue. HENT: Negative for congestion. Respiratory: Negative for cough. Cardiovascular: Negative for chest pain, palpitations and claudication. Gastrointestinal: Negative for abdominal pain, diarrhea, heartburn, nausea and vomiting. Genitourinary: Negative for dysuria. Musculoskeletal: Negative for myalgias. Neurological: Positive for weakness. Negative for dizziness, focal weakness and headaches. Psychiatric/Behavioral: Negative for depression. Physical Exam: BP 109/76 | Pulse 78 | Temp 35.8 C (96.5 F) (Temporal) | Resp 21 | Ht 1.88 m (6' 2" ) | Wt (!) 159.7 kg (352 lb 1.6 oz) | SpO2 99% | BMI 45.21 kg/m Physical Exam Constitutional: He is oriented to person, place, and time. He appears well-developed. HENT: Head: Normocephalic. Eyes: Pupils are equal, round, and reactive to light. Conjunctivae are normal. Neck: Normal range of motion. No JVD present. Cardiovascular: An irregularly irregular rhythm present. Exam reveals no friction rub. No murmur heard. Pulmonary/Chest: No respiratory distress. He has no wheezes. He has no rales. Abdominal: Soft. He exhibits no distension. There is no abdominal tenderness. There is no r ebound. Musculoskeletal: General: No edema. Left hip: He exhibits decreased range of motion, decreased strength and tenderness. He e xhibits no swelling and no crepitus. Neurological: He is alert and oriented to person, place, and time. Labs: No results found for this or any previous visit (from the past 24 hour(s)). Labs from [facility]: White blood cell 15.2, hemoglobin 17.6, hematocrit 53.8, platelet count 271. Glucose 173, BUN 40, creatinine 1.9, sodium 135, potassium 5.2, chloride 102, calcium 10 LFTs within normal limits Problem List: Principal Problem: HTN (hypertension) Active Problems: IDDM (insulin dependent diabetes mellitus) CKD (chronic kidney disease) HIV (human immunodeficiency virus infection) Morbid obesity Atrial fibrillation Chronic anticoagulation Hip fracture Impression Patient of a 68-year-old male with a significant past medical history of A. fib on chronic Eliquis therapy, heart failure on chronic oxygen therapy, diabetes, hypertension, HIV, ische felipe CVA, status post ICD/pacemaker who comes as a transfer from [facility] due t o mechanical fall and left hip fracture. -01/2019 echocardiogram-overall left ventricular systolic function is normal, EF 55-60%. M oderate concentric left ventricular hypertrophy. -CT pelvis-comminuted intertrochanteric fracture left hip -EKG-atrial fibrillation, rate control, no acute ST changes Assessment -Fall, mechanical. History is not consistent with cardiac or seizure etiology. Patient wi th a poor functional status at baseline, most likely related to multi-sensorial deficit, mus culoskeletal deconditioning, and previous CVAs. -A. fib on chronic Eliquis therapy. Last dose was last night prior to the fall -Heart failure with preserved ejection fraction. On chronic oxygen therapy. With no curre nt signs of decompensation -Hypertension -Diabetes -HIV -History of ischemic CVA -Status post ICD/pacemaker Plan Admit inpatient Orthopedic surgery has been consulted prior to transfer, Dr. Toledo Telemetry EKG, A1c and lipid panel in the morning We will hold anticoagulation for now due to possible surgical intervention on Wednesday From the internal medicine point of view, cardiopulmonary risk assessment, patient is at hi gh risk for complications due to his age and multiple comorbidities. Still, there is no con traindication for surgical intervention, if patient and orthopedic surgery decides so.` No need for further testing. Recent echocardiogram results as above NovoLog sliding scale Continue antiretroviral therapy Continue rate control Pain management Antiemetic therapy DVT GI prophylaxis CODE STATUS-Full code Rafi Crump MD 10/10/19 docum ented in this encounter Consult Notes Roxy Concepcion RN - 10/12/2019 1:38 PM PSTAssociated Order(s): IP CONSULT TO WOUND OSTO MY NURSE [facility] Service: Wound Care Consult Note Hospital Day: 2 SUBJECTIVE Patient Summary: Wound care presents for evaluation of panniculus and scattered abras ions. OBJECTIVE PROBLEM LIST Patient Active Problem List Diagnosis Ischemic cerebrovascular accident (CVA) IDDM (insulin dependent diabetes mellitus) HTN (hypertension) CKD (chronic kidney disease) HIV (human immunodeficiency virus infection) Acute left hemiparesis Dysphagia due to recent cerebral infarction Neurogenic bladder Morbid obesity Diabetic peripheral neuropathy RACHELLE treated with BiPAP Mild cognitive impairment Atrial fibrillation Chronic anticoagulation Hip fracture Closed fracture of left hip, initial encounter ASSESSMENT & PLAN Bilateral Diabetic foot wounds: scattered eschar on bilateral toes less than 1 cm, please p aint with betadine BID. Yeast like rash noted on left groin: Nystatin powder ordered for this time. Please apply t o clean and dry skin folds. Thank you for allowing me to participate in the care of this patient. I will continue to follow with you. Please call if there are any additional questions. Roxy Concepcion RN 13:39 Tyrone Wade MD - 10/10/2019 4:09 PM PSTAssociated Order(s): PROVIDER TO PROVIDER CONSULTFormatting of t his note might be different from the original. Service: Orthopedic Surgery Initial Consult Note Date of Admission: 10/10/2019 Reason for Consultation: Left hip fracture Requesting Physician: , Hospitalist History Obtained From: patient CHIEF COMPLAINT: Left hip pain HISTORY OF PRESENT ILLNESS The patient is 68 y.o. male with several medical comorbidities presents with left hip pain and inability to ambulate after a fall at home. He has a history of frequent falls. He gen erally uses a walker for ambulation. He denies antecedent hip pain. He takes Eliquis chron ically and last took the Eliquis on Wednesday evening on October 09, 2019. He currently compla ins of significant left hip pain especially with movement. He was initially seen by his [facility] emergency department and after review of his medical issues [facility] higher level of medical care due to his multiple medical issues. Active comorbid conditions include: - dysrhythmias - hypertension - PVD - sleep apnea - obesity - HIV - CVA REVIEW OF SYSTEMS Review of Systems Musculoskeletal: Positive for arthralgias, gait problem and joint swelling. All other systems reviewed and are negative. History reviewed. No pertinent past medical history. History reviewed. No pertinent surgical history. Allergies Allergen Reactions Amoxicillin Augmentin- throat swelling Ciprofloxacin Other reaction(s): ACUTE INTERSTITIAL NEPHRITIS Simvastatin Rash and Itching Sulfa Antibiotics Tegaderm Chg Dressing [Chlorhexidine] Itching Other reaction(s): VESICLES IN SKIN Tigecycline Itching and Hives Cefazolin Itching and Hives Cephalexin Itching Niacin Other reaction(s): FLUSHING Sulfamethoxazole-Trimethoprim Itching Acute interstitial nephritis Bee Venom Rash Tape [Adhesive & Tape] Triamcinolone Rash Vancomycin Itching Medications Prior to Admission Medication Sig Dispense Refill hswiqnqp-jaobrwasywoe-qrpcMOSees (TRIUMEQ) 600-50-300 mg per tablet Take 1 tablet by [facility] Daily. Indications: HIV Disease allopurinol (ZYLOPRIM) 100 mg tablet Take 100 mg by mouth Daily. apixaban (ELIQUIS) 5 mg tablet Take 1 tablet by mouth every 12 hours. 60 tablet 1 atorvaSTATin (LIPITOR) 80 MG tablet Take 1 tablet by mouth Daily. 30 tablet 1 bacitracin 500 UNIT/GM ointment Apply to the open sore on the lateral right calf 1 Appl ication 1 diphenhydrAMINE (BENADRYL) 50 mg capsule Take 1 capsule by mouth daily (after dinner). (Patient not taking: Reported on 10/10/2019) 30 capsule 1 finasteride (PROSCAR) 5 mg tablet Take 1 tablet by mouth Daily. 30 tablet 1 gabapentin (NEURONTIN) 600 MG tablet Take 300 mg by mouth 2 times daily. HYDROcodone-acetaminophen (NORCO) 5-325 mg per tablet Take 1 tablet by mouth every 6 ho urs as needed for Pain. (Patient not taking: Reported on 10/10/2019) 50 tablet 0 insulin glargine (LANTUS) 100 units/mL injection (vial) Inject 10 Units under the skin 2 times daily. insulin lispro (HUMALOG KWIKPEN) 100 units/mL injection (pen) Inject 0-6 Units under th e skin 4 times daily (with meals and nightly). 2 pen 1 insulin lispro (HUMALOG KWIKPEN) 100 units/mL injection (pen) Inject 15 Units under the skin 3 times daily (with meals). 3 pen 1 isosorbide mononitrate (IMDUR) 30 mg ER tablet Take 1 tablet by mouth Daily. 30 tablet 1 metoprolol tartrate (LOPRESSOR) 25 mg tablet Take 1 tablet by mouth 2 times daily. 60 t ablet 1 mirtazapine (REMERON) 7.5 MG tablet Take 2 tablets by mouth daily (after dinner). 30 ta blet 1 oxyCODONE-acetaminophen (PERCOCET) 5-325 mg per tablet Take 1 tablet by mouth every 6 h ours as needed for Pain. Saw [employer] 450 MG CAPS Take 900 mg by mouth 2 times daily. spironolactone (ALDACTONE) 50 mg tablet Take 50 mg by mouth Daily. tolnaftate (TINACTIN) 1% powder Apply topically 2 times daily. Scheduled Medications xmbysjgn-mspeypescenx-lzeiEDPitr 1 tablet Oral Daily allopurinol 100 mg Oral Daily atorvaSTATin 80 mg Oral Nightly finasteride 5 mg Oral Daily gabapentin 300 mg Oral BID heparin 5,000 Units Subcutaneous 2 times per day insulin glargine 10 Units Subcutaneous 2 times per day insulin lispro 0-6 Units Subcutaneous 4x Daily WC and HS insulin lispro 5 Units Subcutaneous TID WC isosorbide mononitrate 30 mg Oral Daily metoprolol tartrate 25 mg Oral BID mirtazapine 15 mg Oral Daily after dinner Continuous Infusions dextrose 10% sodium chloride 0.9% 75 mL/hr at 10/10/19 0543 PRN Medications acetaminophen, Hypoglycemia Management AND POCT Glucose AND dextrose AND dextro se 10%, HYDROmorphone, melatonin, oxyCODONE-acetaminophen, polyethylene glycol, prochlorpera zine History reviewed. No pertinent family history. reports that he quit smoking about 36 years ago. He has a 25.50 pack-year smoking history. He quit smokeless tobacco use about 36 years ago. PHYSICAL EXAM Vital Signs: BP (!) 145/91 | Pulse 94 | Temp 36.1 C (97 F) (Temporal) | Resp 20 | Ht 1.88 m (6' 2") | Wt (!) 159.7 kg (352 lb 1.6 oz) | SpO2 95% | BMI 45.21 kg/m Physical Exam Constitutional: Appearance: He is well-developed. HENT: Head: Normocephalic and atraumatic. Eyes: Pupils: Pupils are equal, round, and reactive to light. Abdominal: Palpations: Abdomen is soft. Musculoskeletal: Left hip: He exhibits decreased range of motion, decreased strength, tenderness, bony te nderness, swelling, crepitus and deformity. He exhibits no laceration. Right knee: He exhibits no effusion. Left knee: He exhibits no effusion. Comments: Lower extremity is shortened and externally rotated there is ecchymosis over t he left hip. He has a neurologically intact and his sensation is at baseline which is subje ctively diminished due to neuropathy. Significant pain in the hip with logroll. Skin: General: Skin is warm. Capillary Refill: Capillary refill takes less than 2 seconds. Neurological: Mental Status: He is alert and oriented to person, place, and time. DATA PROBLEM LIST Principal Problem: Hip fracture Active Problems: IDDM (insulin dependent diabetes mellitus) HTN (hypertension) CKD (chronic kidney disease) HIV (human immunodeficiency virus infection) Morbid obesity Atrial fibrillation Chronic anticoagulation Closed fracture of left hip, initial encounter ASSESSMENT & PLAN Left intertrochanteric femur fracture: -Plan for cephalo-medullary nail of the left hip fracture. -Given his multiple medical comorbidities and the use of Eliquis on the evening of October 09, 2019 the patient is at elevated risk for complications during and after surgery. -Plan will be to proceed with surgery in a delayed fashion on October 12, [address] Chas diaz allowing more than 48 hours since the last dose of Eliquis. This may also allow anesthes ia to more safely perform regional anesthesia which may be the preferred method for him. -I spoke to the patient regarding the plan I also spoke about alternatives to surgical taj tment including nonsurgical treatment and its risks and benefits the patient wished to proce ed with surgical fixation and understands the issues surrounding his medical comorbidities. Code Status: Full Code Primary Care Physician: MD Tyrone Guidry MD 10/10/2019 documente d in this encounter Miscellaneous Notes Plan of Care - Valentina Cool RN - 10/18/2019 12:46 PM PSTCare Ma nagement SNF/LTACH Final Discharge Plan Readmission Risk: Medium Discharge Plan Planned Disposition: Snf Facility - SNF Planned Destination: [facility] [place] of Choice: retirement facility Facility Information: Address: [address] [place] [address] Fax: Community Care Provider: [place] Patient/Family Notified: yes Transportation will be provided by: ambulance([facility]) Transportation Date/Time: ambulance([facility]) 1500 Ride Contact: Name: [facility] Confirmed 3 Qualifying Midnights: yes SNF Authorization Received: yes PASRR Completed: yes Notes: Pt to discharge today 10/18/19 to SNF-[facility]. [facility] ) to facilitate transportation today 10/18/19 at 1500. CM contacted [place] office (*[id number]) for transportation authorization, they will follow up with [facility]. [place] on/PASRR faxed to SNF. LAURENT/transfer paperwork signed and on chart. Pt to bring HIV medicatio n with him to facility. Pt is aware and in adherence to this plan. Electronically signed: Valentina Cool RN 10/18/2019 12:46 PMElectronically s igned by Valentina Cool RN at 10/18/2019 1:02 PM PSTSNF Transfer - Satya Pinto MD - 10/18/2019 12:33 PM PST [facility] TRANSFER ORDERS Patient Name: Sarthak Nelson Patient : 1950 Gender: male Date of Admission: 10/10/2019 Date of Discharge: 10/18/2019 Admitting Provider: Rafi Guerrero* Discharging Provider: Satya Pinto MD Consultants: Orthopedic surgery, Dr. Parsons and Dr. Kelly PCP: Jericho Cao [facility] transferring to: [facility] Provider after transfer: PCP CODE STATUS: [x] Attempt CPR [] Do not resuscitate If patient is pulseless and not breathing, RN/GENERAL STORE MANAGER may pronounce . Advanced Directives included: [] POLST [] MOLST/MOST [] Com[facility] ([place]) [] Other: Code status discussed with: [x] Patient [] Spouse/Family [] DPOA [] Other: Name of person discussed with: Date discussed: Isolation/Infection Precautions: No active isolations No active infections Height: Height: 188 cm (6' 2") Wt Readings from Last 3 Encounters: 10/17/19 (!) 159.7 kg (352 lb 1.2 oz) 06/29/18 (!) 170.2 kg (375 lb 3.2 [...] Closed fracture of left hip, initial encounter Allergies Allergen Reactions Amoxicillin Augmentin- throat swelling Ciprofloxacin Other reaction(s): ACUTE INTERSTITIAL NEPHRITIS Simvastatin Rash and Itching Sulfa Antibiotics Tegaderm Chg Dressing [Chlorhexidine] Itching Other reaction(s): VESICLES IN SKIN Tigecycline Itching and Hives Cefazolin Itching and Hives Cephalexin Itching Niacin Other reaction(s): FLUSHING Sulfamethoxazole-Trimethoprim Itching Acute interstitial nephritis Bee Venom Rash Tape [Adhesive & Tape] Triamcinolone Rash Vancomycin Itching Most Recent Immunizations Administered Date(s) Administered HEP B, 3 DOSE (ADULT) 07/25/2014 INFLUENZA 65 Y OR >, TRIVALENT HIGH-DOSE 06/07/2017 INFLUENZA PF QUAD(PED/ADOL/ADULT),PSKT or VIAL 06/30/2018 INFLUENZA PF TRIVALENT(PED/ADOL/ADULT), PSKT 09/02/2015 INFLUENZA, [id number], UNSPECIFIED 10/03/2009 INFLUENZA, UNSPECIFIED FORMULATION 07/25/2014 Influenza, Whole 06/25/2003 PNEUMOCOCCAL CONJUGATE 13-VALENT (PCV13) 07/30/2015 PNEUMOCOCCAL POLYSACCHARIDE 23-VALENT (PPSV23) 08/02/2013 PNEUMOCOCCAL, UNSPECIFIED FORMULATION 08/02/2013 TDAP, (ADOL/ADULT) 08/05/2011 TETANUS TOXOID ABSORBED, (ADOL/ADULT) 04/12/2001 ZOSTER, 1 DOSE (ZOSTAVAX) 08/05/2011 Diet: [x] As tolerated SCHEDULING MANAGER may upgrade or downgrade diet as condition Indicates. [x] RN may downgrade diet as indicated. Type: [x] Continue current diet of: Diet and Supplements Diet Diet general; Effective Now Number of Occurrences: Until Specified Order Questions: Type Diet general Consistency/Precautions: N/A Tube Feedings: N/A Respiratory: N/A Bladder: N/A Other Lines, Tubes and Drains: N/A Activity/Therapies: [x]WBAT [x] PT Evaluation & Management for: deconditioning [x] OT Evaluation & Management for: deconditioning [] SCHEDULING MANAGER Evaluation &Management for: [] Other: Wound/Skin Care: N/A Labs/Imaging: [x] Fingerstick glucose checks: TID/AC Dx: DM I have advised this patient that he/she [...] New Medications Details Order Next Dose Due acetaminophen 325 mg tablet Take 2 tablets by mouth every 6 hours as needed for Pain (or fever >= 38.6 C (101.5 F)). aka: TYLENOL By: Satya Pinto MD Quant: 120 tablet lactulose 10 g/15 mL solution Take 30 mLs by mouth Twice daily as needed for Constipation. By: Satya iPnto MD Quant: 320 mL polyethylene glycol packet Take 1 diluted packet by mouth Daily as needed for up to 30 days. aka: MIRALAX By: Satya Pinto MD Quant: 30 packet senna 8.6 mg tablet Take 2 tablets by mouth every morning for 30 days. aka: SENOKOT By: Satya Pinto MD Quant: 60 tablet Unchanged Medications Details Order Next Dose Due kiyzdtgc-uwknfeafqxit-vfdcQGKcdk 600-50-300 mg per tablet Take 1 tablet by mouth Daily. Indications: HIV Disease aka: TRIUMEQ allopurinol 100 mg tablet Take 100 mg by mouth Daily. aka: ZYLOPRIM apixaban 5 mg tablet Take 1 tablet [...] By: Pramod Salinas MD Quant: 30 capsule finasteride 5 mg tablet Take 1 tablet by mouth Daily. aka: PROSCAR By: Pramod Salinas MD Quant: 30 tablet gabapentin 600 MG tablet Take 300 mg by mouth 2 times daily. aka: NEURONTIN HYDROcodone-acetaminophen 5-325 mg per tablet Take 1 tablet by mouth every 6 hours as needed for Pain. aka: NORCO By: Satya Pinto MD Quant: 50 tablet insulin glargine 100 units/mL injection (vial) Inject 10 Units under the skin 2 times daily. aka: LANTUS insulin lispro 100 units/mL injection (pen) Inject 0-6 Units under the skin 4 times daily (with meals and nightly). aka: humaLOG KWIKPEN By: Pramod Salinas MD Quant: 2 pen insulin lispro 100 units/mL injection (pen) Inject 15 Units under the skin 3 times daily (with meals). aka: humaLOG KWIKPEN By: Pramod Salinas MD Quant: 3 pen isosorbide mononitrate 30 mg ER tablet Take 1 tablet by mouth Daily. aka: IMDUR By: Pramod Salinas MD Quant: 30 tablet metoprolol tartrate 25 mg tablet Take 1 tablet by mouth 2 times daily. aka: LOPRESSOR By: Pramod Salinas MD Quant: 60 tablet mirtazapine 7.5 MG tablet Take 2 tablets by mouth daily (after dinner). aka: REMERON By: Pramod Salinas MD Quant: 30 tablet Saw [employer]a 450 MG Caps Take 900 mg by mouth 2 times daily. spironolactone 50 mg tablet Take 50 mg by mouth Daily. aka: ALDACTONE tolnaftate 1% powder Apply topically 2 times daily. aka: TINACTIN Discontinued Medications oxyCODONE-acetaminophen 5-325 mg per tablet aka: PERCOCET I, Satya Pinto MD, certify that post hospital retirement care is medically necessary on a continuing basis for any of the conditions for which he/she received care during this hospitalization. Check one: [x] Skilled [] Intermediate Additional Orders/Instructions: Physician's signature: Satya Pinto MD 10/18/2019 12:[address] [facility] USE ONLY: [] Admitting orders verbally reviewed with Admitting Physician, modified where appropriate, and approved. Verbal Order from Date: Time: _ RN name: RN signature: [] Admitting orders reviewed, modified where appropriate, and approved. Physician's signature: Date: Time: lan of Care - Thelma Neves RN - 10/18/2019 12:27 PM PSTPain Goal: Patient s pain/discomfort is manageable Assess and monitor patient s pain using appropriate pain scale. Collaborate with interdis ciplinary team and initiate plan and interventions as ordered. Re-assess patient s pain le medardo approximately 1-2 hours after pain management intervention. Premedicate as needed. Outcome: Progressing Patient states pain is under control. Will continue to monitor and provide medication as we ll as comfort measures as needed. Safety Goal: Patient will be injury free during hospitalization Assess and monitor vitals signs, neurological status including level of consciousness and o rientation. Assess patient s risk for falls and implement fall prevention plan of care and interventions per hospital policy. Ensure arm band on, uncluttered walking paths in room, adequate room lighting, call light a nd overbed table within reach, bed in low position, wheels locked, side rails up per policy, and non-skid footwear provided. Outcome: Progressing Patient will remain free from falls during hospital visit. Bed in lowest position. Room aquilino e from clutter. Call light within reach. Patient uses call light appropriately. Discharge Goal: Patient's discharge needs are met. Outcome: Progressing Working with ancillary staff and Machinist Supervisor Outside to identify discharge barriers and meet patie nt's discharge needs Psychosocial Needs Goal: Patient and family demonstrates the ability to cope with surgery/illness/diagnosis Outcome: Progressing Patient able to verbalize needs appropriately and demonstrates adequate coping skills. Fall Prevention Goal: No Falls during Hospital Stay Outcome: Progressing Maintain bed in low, locked position at all times. [place] patient and family to hospital surroundings. Provide non-skid slippers. Call light within reach. Rounding per standard Potential for Compromised Skin Integrity Goal: Outcome: Progressing Provide teaching at level of understanding. Turn patient every 2 hours. Keep skin clean and dry Monitor patient's hygiene practices. Check incision/wound site every 4 hours for redness, tenderness or drainage. Encouraged frequent repositioning every 2 hours and frequent ambulation in the [facility]. lan of Natacha Montanez RN - 10/18/2019 5:39 AM PSTVSS at this time, pain controlled with prn tylenol. P atient had 1 BM this shift and two large voids. Patient complaining of positional discomfort , assisted with repositioning of LLE multiple times throughout shift. End of Shift review complete. 5 :39 AM PSTPlan of Natalia Montanez RN - 10/17/2019 11:56 PM PST Problem: Adult Inpatient Plan of Care Goal: Plan of Care Review Outcome: Ongoing, progressing Problem: Adult Inpatient Plan of Care Goal: Patient-Specific Goal Outcome: Ongoing, progressing Problem: Adult Inpatient Plan of Care Goal: Absence of Hospital-Acquired Illness or Injury Outcome: Ongoing, progressing Problem: Adult Inpatient Plan of Care Goal: Optimal Comfort and Wellbeing Outcome: Ongoing, progressing Warm blankets provided, repositioned per request and as needed Problem: Skin Injury Risk Increased Goal: Skin Health and Integrity Outcome: Ongoing, progressing Pt assisted with repositioning. Problem: Fall Injury Risk Goal: Absence of Fall and Fall-Related Injury Outcome: Ongoing, progressing Problem: Hypertension Comorbidity Goal: Blood Pressure in Desired Range Outcome: Ongoing, progressing Problem: Pain Chronic (Persistent) (Comorbidity Management) Goal: Acceptable Pain Control and Functional Ability Outcome: Ongoing, progressing Non-opioid pain medication given; patient reports that opioid pain meds make him very cons tipated, prefers tylenol Problem: Adjustment to Injury (Hip Fracture) Goal: Optimal Coping with Change in Health Status Outcome: Ongoing, progressing Problem: Bowel Elimination Impaired (Hip Fracture) Goal: Effective Bowel Elimination Outcome: Ongoing, progressing Stool softeners given Problem: Functional Ability Impaired (Hip Fracture) Goal: Optimal Functional Performance Outcome: Ongoing, progressing Pt has overhead trapeze, encouraged to use it when being assisted with repositioning Problem: Pain (Hip Fracture) Goal: Acceptable Pain Level Outcome: Ongoing, progressing lan of Muriel Hyde RN - 10/17/2019 6:18 PM PSTPatient has remained free of injury throughout shift. Call light is within reach and the bed is in the lowest position. Chart check complete. Muriel Quinn RN 10/17/2019 6:18 PM lan of Ra bryce Hyde RN - 10/17/2019 3:31 PM PST Problem: Adult Inpatient Plan of Care Goal: Plan of Care Review Outcome: Ongoing, progressing Goal: Patient-Specific Goal Outcome: Ongoing, progressing Goal: Absence of Hospital-Acquired Illness or Injury Outcome: Ongoing, progressing Goal: Optimal Comfort and Wellbeing Outcome: Ongoing, progressing Goal: Readiness for Transition of Care Outcome: Ongoing, progressing Goal: Rounds/Family Conference Outcome: Ongoing, progressing Problem: Skin Injury Risk Increased Goal: Skin Health and Integrity Outcome: Ongoing, progressing Problem: Fall Injury Risk Goal: Absence of Fall and Fall-Related Injury Outcome: Ongoing, progressing Problem: Diabetes Comorbidity Goal: Blood Glucose Level Within Desired Range Outcome: Ongoing, progressing Problem: Hypertension Comorbidity Goal: Blood Pressure in Desired Range Outcome: Ongoing, progressing Problem: Pain Chronic (Persistent) (Comorbidity Management) Goal: Acceptable Pain Control and Functional Ability Outcome: Ongoing, progressing Problem: Adjustment to Injury (Hip Fracture) Goal: Optimal Coping with Change in Health Status Outcome: Ongoing, progressing Problem: Bleeding (Hip Fracture) Goal: Absence of Bleeding Outcome: Ongoing, progressing Problem: Bowel Elimination Impaired (Hip Fracture) Goal: Effective Bowel Elimination Outcome: Ongoing, progressing Problem: Delayed Union/Nonunion (Hip Fracture) Goal: Fracture Stability Outcome: Ongoing, progressing Problem: Embolism (Hip Fracture) Goal: Absence of Embolism Outcome: Ongoing, progressing Problem: Functional Ability Impaired (Hip Fracture) Goal: Optimal Functional Performance Outcome: Ongoing, progressing Problem: Pain (Hip Fracture) Goal: Acceptable Pain Level Outcome: Ongoing, progressing Problem: Urinary Elimination Impaired (Hip Fracture) Goal: Effective Urinary Elimination Outcome: Ongoing, progressing Problem: Heart Failure Comorbidity Goal: Maintenance of Heart Failure Symptom Control Outcome: Ongoing, progressing lan of Care - Jorge Guzman, PARKING METER SERVICER - 10/17/2019 2:14 PM PST Physical Therapy Treatment Note Recommended discharge disposition: retirement facility Post discharge physical therapy recommendation: will benefit from structured setting, fami ly involved/supportive, minimum 5 days of therapy/week, pt is motivated participant Equipment Recommendations: none Barriers to community-based discharge Physical Impairment, Level of assistance for ADLs/mobility, Lack of equipment, and Fall ris k Planned Interventions: (may reflect documentation from different provider) balance training, bed mobility trainin g, gait training, home exercise program, strengthening, stair training, transfer training, R OM (Range of Motion), patient/family education, manual therapy techniques Recommended Frequency: twice a day, 6 times/wk for 7 days PT reassessment due 10/20/19 Next visit information: 10/16 LE fx Summary: Therapyf ocused on increasing activity tolerance, transfer training and bed mobil ity. Pt continues to require MaxA x2 for all aspects of mobility. Pt was able to assist more while performing bed mobility with trapeeze. Pt required increased assistance to perform ST S when standing from recliner compared to bed. Time taken during therapy as pt required assi stance for sheri care. Pt would benefit from continued therapy focusing on bed mobility, sparks sfer training and increasing activity tolerance. Pt finished therapy in recliner with all ne eds met. Precautions Precaution Comment: O2 needs Precautions/Limitations: oxygen therapy device and L/min Left Lower Extremity Weight-Bearing: weight-bearing as tolerated Cognitive Assessment Orientation: oriented x 4 Bed Mobility Roll Right, Level of Lea: moderate assist (50% patient effort) Supine to Sit, Level of Lea: maximal assist (25% patient effort), 2 person assist required Sidelying to Sit, Level of Lea: dependent ( less than 25% patient effort), 2 perso n assist required Transfers Bed-Chair, Level of Lea: moderate assist (50% patient effort), 2 person assist req uired Chair-Bed, Level of Lea: ([facility]) [id number], Assistive Device: gait belt, other (see comments)([facility]) Sit-Stand, Level of Lea: moderate assist (50% patient effort), maximal assist (25% patient effort), 2 person assist required Stand-Sit, Level of Lea: moderate assist (50% patient effort), 2 person assist req uired [id number], Assistive Device: gait belt, other (see comments)([facility]) Safety Issues: balance decreased during turns, step length decreased, weight-shifting abili ty decreased Impairments: strength decreased, impaired balance, pain Goals Reflects last filed data and may be from multiple contributors. All Bed Mobility Goal Most Recent Value LTG Status new at 10/13/2019 0730 LTG Lea Level minimum assist (75% patient effort) at 10/13/2019 0730 LTG Assistive Device bed rails, HOB elevated, overhead trapeze [he has these in his home] at 10/13/2019 0730 All Transfers Goal Most Recent Value LTG Status new at 10/13/2019 0730 LTG Lea Level minimum assist (75% patient effort) at 10/13/2019 0730 LTG Assistive Device bariatric, 2 wheeled walker (FWW) at 10/13/2019 0730 Gait Goal Most Recent Value LTG Status new at 10/13/2019 0730 LTG Lea Level minimum assist (75% patient effort) at 10/13/2019 0730 LTG Assistive Device bariatric, 2 wheeled walker (FWW) at 10/13/2019 0730 LTG Distance (feet) 200ft at 10/13/2019 0730 Stair Goal Most Recent Value LTG Status new at 10/13/2019 0730 LTG Lea Level minimum assist (75% patient effort) at 10/13/2019 0730 LTG Assistive Device 2 rails at 10/13/2019 0730 LTG Number of Stairs 2 at 10/13/2019 0730 lan of Erik - Gregorio Gillis RN - 10/17/2019 12:50 PM PST...........Care Management Follow-Up Readmission Risk: Medium Current Discharge Plan Anticipated Discharge Disposition: SNF Expected DC Date: TBD Barriers to Discharge: Pt not medically ready for discharge Steps Taken Toward Discharge: CM followed up on referrals sent : [facility] has no male beds. Message left for [facility]. Message left for [facility]. Discharge Transportation Transportation Needs: family or friend will provide Notes: CM received call back from Lauro, coordinator of [facility], she accepted pt. Patient refused, said he has been there before and did not get good care. Pt is willing to go to [place], [place] [address]: CM returned Vipul's call [phone] to inform her pt has agreed to go to her [facility], he informed CM his is presently receiving therapy there, awaiting her call back. 1524: [facility] is available for help with DCP [phone] ext [phone]. Electronically signed: GREGORIO PINEDA RN 10/17/2019 12:50 PM lan of Care - Camron English RN - 10/17/2019 6:44 AM PSTEnd of shift chart check complete. Pt resting com fortably for majority of shift. Large incontinent void and BM this shift. Turned q2h. Pain c ontrolled via PRN oral pain medication regimen. Blood glucose levels monitored and insulin s liding scale ordered followed. Tolerating general diet, voiding, and passing gas. 2L O2 in p lace. VSS. Nystatin powder applied on affected areas. No questions or concerns at this time. lan of Camron Suazo RN - 10/17/2019 2:41 AM PST Problem: Adult Inpatient Plan of Care Goal: Absence of Hospital-Acquired Illness or Injury Outcome: Ongoing, progressing Goal: Optimal Comfort and Wellbeing Outcome: Ongoing, progressing Problem: Skin Injury Risk Increased Goal: Skin Health and Integrity Outcome: Ongoing, progressing lan of Muriel Hyde RN - 10/16/2019 6:38 PM PSTPatient has remained free of injury throughout shift. Call light is within reach and the bed is in the lowest position. Chart check complete. Muirel Quinn RN 10/16/2019 6:38 PM lan of Ra bryce Hyde RN - 10/16/2019 3:49 PM PST Problem: Adult Inpatient Plan of Care Goal: Plan of Care Review Outcome: Ongoing, progressing Goal: Patient-Specific Goal Outcome: Ongoing, progressing Goal: Absence of Hospital-Acquired Illness or Injury Outcome: Ongoing, progressing Goal: Optimal Comfort and Wellbeing Outcome: Ongoing, progressing Goal: Readiness for Transition of Care Outcome: Ongoing, progressing Goal: Rounds/Family Conference Outcome: Ongoing, progressing Problem: Skin Injury Risk Increased Goal: Skin Health and Integrity Outcome: Ongoing, progressing Problem: Fall Injury Risk Goal: Absence of Fall and Fall-Related Injury Outcome: Ongoing, progressing Problem: Diabetes Comorbidity Goal: Blood Glucose Level Within Desired Range Outcome: Ongoing, progressing Problem: Hypertension Comorbidity Goal: Blood Pressure in Desired Range Outcome: Ongoing, progressing Problem: Pain Chronic (Persistent) (Comorbidity Management) Goal: Acceptable Pain Control and Functional Ability Outcome: Ongoing, progressing Problem: Adjustment to Injury (Hip Fracture) Goal: Optimal Coping with Change in Health Status Outcome: Ongoing, progressing Problem: Bleeding (Hip Fracture) Goal: Absence of Bleeding Outcome: Ongoing, progressing Problem: Bowel Elimination Impaired (Hip Fracture) Goal: Effective Bowel Elimination Outcome: Ongoing, progressing Problem: Delayed Union/Nonunion (Hip Fracture) Goal: Fracture Stability Outcome: Ongoing, progressing Problem: Embolism (Hip Fracture) Goal: Absence of Embolism Outcome: Ongoing, progressing Problem: Functional Ability Impaired (Hip Fracture) Goal: Optimal Functional Performance Outcome: Ongoing, progressing Problem: Pain (Hip Fracture) Goal: Acceptable Pain Level Outcome: Ongoing, progressing Problem: Urinary Elimination Impaired (Hip Fracture) Goal: Effective Urinary Elimination Outcome: Ongoing, progressing Problem: Heart Failure Comorbidity Goal: Maintenance of Heart Failure Symptom Control Outcome: Ongoing, progressing Patient was able to ambulate to the chair today with the help of OT. He reports increased p ain in the chair and was moved back to the bed. lan of Erik - Silvina, Valentina Delgado RN - 020 2:40 PM PSTCare Management Follow-Up Readmission Risk: Medium Current Discharge Plan Anticipated Discharge Disposition: Snf Facility Expected DC Date: TBD Barriers to Discharge: Pt not medically ready for discharge Steps Taken Toward Discharge: CM attended MD rounding for Pt followup and discharge planni ng Next Steps: CM filled out GEC form and faxed to [place] Community Support Services Current Outpt/Agency/Support Groups: other (see comments)(Home health aid /caregivers) Community Agency Name: [facility] Other Resources: freedom of choice Discharge Transportation Transportation Needs: family or friend will provide Notes: CM attended MD rounding for Pt followup and discharge planning. Per MD, Pt agreeable to SNF placement. CM met with Pt secondary to MD information. Per Pt request, Referral to b e sent to [facility]. GEC form completed, and will follow up with Sharon Berman, [facility] through the [place] ( fax# [phone]) for further SNF referrals. Pt in ad herence to this plan. CM will continue to follow for discharge planning, pending clinical co urse. Electronically signed: Valentina Cool RN 10/16/2019 2:40 PM lan of Erik - Jorge Shankar PTA - 10/16/2019 10:08 AM PSTFormatting of this note mi ght be different from the original. Physical Therapy Treatment Note Recommended discharge disposition: retirement facility Post discharge physical therapy recommendation: will benefit from structured setting, fami ly involved/supportive, minimum 5 days of therapy/week, pt is motivated participant Equipment Recommendations: none Barriers to community-based discharge Physical Impairment, Level of assistance for ADLs/mobility, Lack of equipment, Home Design, and Fall risk Planned Interventions: (may reflect documentation from different provider) balance training, bed mobility trainin g, gait training, home exercise program, strengthening, stair training, transfer training, R OM (Range of Motion), patient/family education, manual therapy techniques Recommended Frequency: twice a day, 6 times/wk for 7 days PT reassessment due 10/20/19 Next visit information: 10/16 LE fx Summary: Therapy focused on increasing activity tolerancebed mobility and transfer trainin g. Pt continues to require Max to dependent assist for bed mobility. Once pt seated upright pt demonstrates good stability and was able to perform STS as well as stand pivot transfer w ith 2PA modA. Pt would benefit from continued therapy focusing on bed mobility, transfer tra ining and LE strengthening. Pt finished therapy in recliner with all needs met. Precautions Precaution Comment: O2 needs Left Lower Extremity Weight-Bearing: weight-bearing as tolerated Cognitive Assessment Orientation: oriented x 4 Bed Mobility Roll Right, Level of Lea: moderate assist (50% patient effort) Sidelying to Sit, Level of Lea: dependent ( less than 25% patient effort), 2 perso n assist required Transfers Bed-Chair, Level of Lea: moderate assist (50% patient effort) [id number], Assistive Device: gait belt, other (see comments)([facility]) Sit-Stand, Level of Lea: 2 person assist required, moderate assist (50% patient ef fort) Stand-Sit, Level of Lea: 2 person assist required, moderate assist (50% patient ef fort) [id number], Assistive Device: gait belt, other (see comments)([facility]) Safety Issues: balance decreased during turns, step length decreased, weight-shifting abili ty decreased Impairments: strength decreased, impaired balance, pain Goals Reflects last filed data and may be from multiple contributors. All Bed Mobility Goal Most Recent Value LTG Status new at 10/13/2019 0730 LTG Lea Level minimum assist (75% patient effort) at 10/13/2019 0730 LTG Assistive Device bed rails, HOB elevated, overhead trapeze [he has these in his home] at 10/13/2019 0730 All Transfers Goal Most Recent Value LTG Status new at 10/13/2019 0730 LTG Lea Level minimum assist (75% patient effort) at 10/13/2019 0730 LTG Assistive Device bariatric, 2 wheeled walker (FWW) at 10/13/2019 0730 Gait Goal Most Recent Value LTG Status new at 10/13/201930 LTG Lea Level minimum assist (75% patient effort) at 10/13/2019 0730 LTG Assistive Device bariatric, 2 wheeled walker (FWW) at 10/13/2019 0730 LTG Distance (feet) 200ft at 10/13/2019 0730 Stair Goal Most Recent Value LTG Status new at 10/13/201930 LTG Lea Level minimum assist (75% patient effort) at 10/13/2019 0730 LTG Assistive Device 2 rails at 10/13/2019729 LTG Number of Stairs 2 at 10/13/2019 0730 lan of Care - Dottie Albert, OTR/L - 10/16/2019 9:37 AM PST Occupational Therapy Initial Evaluation Note Recommended discharge disposition: retirement facility Post discharge occupational therapy recommendation: will benefit from structured setting Anticipated Equipment Needs At Discharge OT: bariatric, shower chair Barriers to community-based discharge Physical Impairment, Level of assistance for ADLs/mobility, Pain, and Fall risk Planned Interventions: Planned Therapy Interventions: ADL retraining, functional endurance training, neuromuscular re-education, patient/family education, ROM (Range of Motion), stren gthening, transfer training, discharge planning Therapy Frequency: 3 times/wk for 10 days OT reassessment due 10/26/19 Next visit information: 10/16; LE fx; tf trng, UE HEP Summary: Pt is supine HOB elevated upon entry and and agreeable to OT session. VS are WFL throughout session. During this evaluation pt was co treatment with PARKING METER SERVICER d/t skilled need fo r 2 people to assist with transfer training and ensure pt safety. Pt required significant as sist for bed mobiltiy and would greatly benefit from trapeze attachment as pt has one at [facility] and would be able to assist with future transfers. Pt completed stand pivot transfer with HPW and 2pA to bariatric recliner. Sling for mechanical lift placed on chair for future tf. Pt required assist for lower body dressing and gown change. He was able to complete seated ADLs with setup. Objective impairments include decreased strength, balance, functional endur ance, . These functional limitations in patient's ability to complete ADLs/ IADLs/ function al mobility and will require ongoing occupational therapy to maximize functional independenc e and offer the opportunity to return to baseline function. Living Environment Lives With: other (see comments)(caregivers) Living Arrangements: house Home Accessibility: ramps present at home Living Environment Comment: BR; walk in shower, has shower chair but does not use it, commo de over toilet Functional Level Prior Transferring: independent Ambulation: independent Toileting: assistive person Bathing: assistive person Dressing: assistive person Eating: independent Communication: understands/communicates without difficulty Swallowin-->swallows foods/liquids without difficulty Equipment Currently Used at Home: 4 wheeled walker (4WW), cane, straight, single point, oxy gen Prior Functional Level Comment: 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 reports he can normally walk and transfer on own b ut has ADL assist at baseline Precautions Precaution Comment: O2 needs, anxiety with movement Precautions/Limitations: oxygen therapy device and L/min Left Lower Extremity Weight-Bearing: weight-bearing as tolerated Cognitive Assessment Additional Documentation: orientation Impairments Found (describe specific impairments): functional endurance/activity tolerance, gait, locomotion, and balance Sensory Assessment Sensation Comments: reports no abnormal sensation Vision Comments: wears glasses Lower Body Dressing Assessment/Training LB Dressing, Level of Lea: dependent ( less than 25% patient effort) Assistive Device: none LB Dressing Assess/Train, Position: sitting LB Dressing Impairments: strength decreased, impaired balance, ROM decreased, decreased fle xibility Bed Mobility Additional Documentation: sidelying to/from sit, rolling Roll Right, Level of Lea: moderate assist (50% patient effort) Sidelying to Sit, Level of Lea: dependent ( less than 25% patient effort), 2 perso n assist required Safety Issues: decreased use of arms for pushing/pulling, decreased use of legs for bridgin g/pushing Impairments: strength decreased Transfers Additional Documentation: bed to/from chair Bed-Chair, Level of Lea: moderate assist (50% patient effort) [id number], Assistive Device: gait belt, other (see comments)(high platform walker) Sit-Stand, Level of Lea: 2 person assist required, set up required, verbal cues re quired Safety Issues: balance decreased during turns, step length decreased, weight-shifting abili ty decreased Impairments: strength decreased, impaired balance, pain ROM Comments: ROM limitations in wrist bilaterally Strength Comments: generalized weakness Goals Reflects last filed data and may be from multiple contributors. Toilet Transfer Goal Most Recent Value LTG Status new at 10/16/2019 0937 LTG Lea Level maximum assist (25% patient effort) at 10/16/2019 0937 LTG Assistive Device 4 wheeled walker (4WW) at 10/16/2019 0937 Ther Exercise Goal Most Recent Value LTG Status new at 10/16/2019 0937 LTG Level 3 with handout and no change in vital signs at 10/16/2019 0937 lan of Natalia Briggs RN - 10/16/2019 6:18 AM PSTNo acute events this shift, VSS at this time. Pt had one very large void, no bowel movements during the night. End of Shift review complete. 6 :18 AM PSTPlan of Natalia Montanez RN - 10/15/2019 11:04 PM PST Problem: Adult Inpatient Plan of Care Goal: Plan of Care Review Outcome: Ongoing, progressing Problem: Adult Inpatient Plan of Care Goal: Patient-Specific Goal Outcome: Ongoing, progressing Problem: Adult Inpatient Plan of Care Goal: Absence of Hospital-Acquired Illness or Injury Outcome: Ongoing, progressing Problem: Adult Inpatient Plan of Care Goal: Optimal Comfort and Wellbeing Outcome: Ongoing, progressing Problem: Skin Injury Risk Increased Goal: Skin Health and Integrity Outcome: Ongoing, progressing Problem: Pain Chronic (Persistent) (Comorbidity Management) Goal: Acceptable Pain Control and Functional Ability Outcome: Ongoing, progressing Problem: Adjustment to Injury (Hip Fracture) Goal: Optimal Coping with Change in Health Status Outcome: Ongoing, progressing Questions and concerns encouraged, addressed. Patient verbalizes acceptance Problem: Bowel Elimination Impaired (Hip Fracture) Goal: Effective Bowel Elimination Outcome: Ongoing, progressing Problem: Functional Ability Impaired (Hip Fracture) Goal: Optimal Functional Performance Outcome: Ongoing, progressing Problem: Urinary Elimination Impaired (Hip Fracture) Goal: Effective Urinary Elimination Outcome: Ongoing, progressing lan of Abdoulaye Kingsley i, PTA - 10/15/2019 2:08 PM PSTMISSED THERAPY VISIT Physical Therapy attempted to see the following patient today: Sarthak Nelson Missed Visit (patient declined) pt sleeping but easily aroused initialy willing to participate but pt declining after roll ling pt to put sling under him due to pain lan of Antonina Rabago RN - 10/15/2019 10:30 AM PST Problem: Adult Inpatient Plan of Care Goal: Optimal Comfort and Wellbeing Outcome: Ongoing, progressing Pt c/o pain x 1, medicated with tylenol with no relief, medicated again x 1 with percocet. No other complaint of pain lan of Natalia Montanez RN - 10/15/2019 6:21 AM PSTAt the beginning of this shift, patient complaining of severe constipation. After repositioning, he had a large bowel movement, but he stated "there is three times more inside of me, and I can't get it out wit hout an enema". He reported that he comes across this problem at home occasionally and an en rj is the only thing that helps. Patient insisted on receiving an enema, it was administere d per prn order. Patient had another large bowel movement after that, stated that he felt a lot of relief, no longer felt the abdominal discomfort/constipation. Voiding in very large q uantities at once. Betadine applied BLE per order. End of Shift review complete. 6 :21 AM PSTPlan of Natalia Montanez RN - 10/14/2019 11:19 PM PST Problem: Adult Inpatient Plan of Care Goal: Plan of Care Review Outcome: Ongoing, progressing Problem: Adult Inpatient Plan of Care Goal: Patient-Specific Goal Outcome: Ongoing, progressing Problem: Adult Inpatient Plan of Care Goal: Absence of Hospital-Acquired Illness or Injury Outcome: Ongoing, progressing Problem: Adult Inpatient Plan of Care Goal: Optimal Comfort and Wellbeing Outcome: Ongoing, progressing Problem: Skin Injury Risk Increased Goal: Skin Health and Integrity Outcome: Ongoing, progressing Barrier wipes used to clean patient after voiding and having bowel movements, nystatin pow sabrina applied. Problem: Pain Chronic (Persistent) (Comorbidity Management) Goal: Acceptable Pain Control and Functional Ability Outcome: Ongoing, progressing Problem: Adjustment to Injury (Hip Fracture) Goal: Optimal Coping with Change in Health Status Outcome: Ongoing, progressing Problem: Bowel Elimination Impaired (Hip Fracture) Goal: Effective Bowel Elimination Outcome: Ongoing, progressing Pt receiving laxatives, as well as enema per request. Patient had two very large bowel move ments, states that he feels a lot of relief and no longer has severe abdominal discomfort/co nstipation. lan of Sridevi Kerr RN - 10/14/2019 1:39 PM PST Problem: Adult Inpatient Plan of Care Goal: Plan of Care Review Outcome: Ongoing, progressing Plan of care reviewed with patient, questions encouraged and answered. lan of Erik - Abdoulaye Franco PTA - 10/14/2019 1:06 PM PST Physical Therapy Treatment Note Recommended discharge disposition: retirement facility Post discharge physical therapy recommendation: Equipment Recommendations: Barriers to community-based discharge Physical Impairment Planned Interventions: (may reflect documentation from different provider) balance training, bed mobility trainin g, gait training, home exercise program, strengthening, stair training, transfer training, R OM (Range of Motion), patient/family education, manual therapy techniques Recommended Frequency: twice a day, 6 times/wk for 7 days PT reassessment due 10/20/19 Next visit information: 10/14 LE fx Summary: pt supine in bed willing to participate completed therex followed by transfer tr aining to EOB pt not able to stand w/ platform walker and became fearful of sliding off bed assiisted pt back to supine then assisted nsg w/ mechanical lift to transfer pt to chair Bed Mobility Scoot/Bridge, Level of Lea: moderate assist (50% patient effort) Supine to Sit, Level of Lea: moderate assist (50% patient effort) Sit to Supine, Level of Lea: maximal assist (25% patient effort) Safety Issues: decreased use of arms for pushing/pulling, decreased use of legs for bridgin g/pushing Impairments: strength decreased Transfers Bed-Chair, Level of Lea: dependent ( less than 25% patient effort) [id number], Assistive Device: mechanical lift Exercises Bed exercises: ankle pumps, quad sets, glut sets, hip abduction/adduction, heel slides Goals Reflects last filed data and may be from multiple contributors. All Bed Mobility Goal Most Recent Value LTG Status new at 10/13/2019 0730 LTG Lea Level minimum assist (75% patient effort) at 10/13/2019 0730 LTG Assistive Device bed rails, HOB elevated, overhead trapeze [he has these in his home] at 10/13/2019 0730 All Transfers Goal Most Recent Value LTG Status new at 10/13/2019 0730 LTG Lea Level minimum assist (75% patient effort) at 10/13/2019 0730 LTG Assistive Device bariatric, 2 wheeled walker (FWW) at 10/13/2019 0730 Gait Goal Most Recent Value LTG Status new at 10/13/2019 0730 LTG Lea Level minimum assist (75% patient effort) at 10/13/2019 0730 LTG Assistive Device bariatric, 2 wheeled walker (FWW) at 10/13/2019 0730 LTG Distance (feet) 200ft at 10/13/2019 0730 Stair Goal Most Recent Value LTG Status new at 10/13/2019 0730 LTG Lea Level minimum assist (75% patient effort) at 10/13/2019 0730 LTG Assistive Device 2 rails at 10/13/2019 0730 LTG Number of Stairs 2 at 10/13/2019 0730 lan of Caro Bhandari RN - 10/14/2019 5:52 AM PSTEnd of shift chart review done. lan of Mik Montes De Oca RN - 10/14/2019 4:35 AM PST Problem: Fall Injury Risk Goal: Absence of Fall and Fall-Related Injury Outcome: Ongoing, progressing Pt is in bed with call light and tray table within reach. Bed in the lowest position with w heels locked. Hourly rounding done per standard. lan of Erik - Muriel Quinn RN - 10/13/2019 7:34 PM PST Patient was frustrated and verbally abusive this morning. Reinstated boundaries for interact ion with staff. He was pleasant throughout the rest of the shift. Patient has remained free of injury throughout shift. Call light is within reach and the bed is in the lowest position . Chart check complete. Muriel Quinn RN 10/13/2019 7:34 PM lan of Ra bryce Hyde RN - 10/13/2019 2:34 PM PST Problem: Adult Inpatient Plan of Care Goal: Plan of Care Review Outcome: Ongoing, progressing Goal: Patient-Specific Goal Outcome: Ongoing, progressing Goal: Absence of Hospital-Acquired Illness or Injury Outcome: Ongoing, progressing Goal: Optimal Comfort and Wellbeing Outcome: Ongoing, progressing Goal: Readiness for Transition of Care Outcome: Ongoing, progressing Goal: Rounds/Family Conference Outcome: Ongoing, progressing Problem: Skin Injury Risk Increased Goal: Skin Health and Integrity Outcome: Ongoing, progressing Problem: Fall Injury Risk Goal: Absence of Fall and Fall-Related Injury Outcome: Ongoing, progressing Problem: Diabetes Comorbidity Goal: Blood Glucose Level Within Desired Range Outcome: Ongoing, progressing Problem: Hypertension Comorbidity Goal: Blood Pressure in Desired Range Outcome: Ongoing, progressing Problem: Pain Chronic (Persistent) (Comorbidity Management) Goal: Acceptable Pain Control and Functional Ability Outcome: Ongoing, progressing Problem: Adjustment to Injury (Hip Fracture) Goal: Optimal Coping with Change in Health Status Outcome: Ongoing, progressing Problem: Bleeding (Hip Fracture) Goal: Absence of Bleeding Outcome: Ongoing, progressing Problem: Bowel Elimination Impaired (Hip Fracture) Goal: Effective Bowel Elimination Outcome: Ongoing, progressing Problem: Delayed Union/Nonunion (Hip Fracture) Goal: Fracture Stability Outcome: Ongoing, progressing Problem: Embolism (Hip Fracture) Goal: Absence of Embolism Outcome: Ongoing, progressing Problem: Functional Ability Impaired (Hip Fracture) Goal: Optimal Functional Performance Outcome: Ongoing, progressing Problem: Pain (Hip Fracture) Goal: Acceptable Pain Level Outcome: Ongoing, progressing Problem: Urinary Elimination Impaired (Hip Fracture) Goal: Effective Urinary Elimination Outcome: Ongoing, progressing Problem: Heart Failure Comorbidity Goal: Maintenance of Heart Failure Symptom Control Outcome: Ongoing, progressing Patients pain has been adequately controlled with repositioning, distraction and medication . He is better tolerating being turned for cleaning and repositioning. lan of Erik - Sussy Guerrero, Valentina Delgado RN - 10/13/2019 2:07 PM PSTCare Management Follow-Up Readmission Risk: Medium Current Discharge Plan Anticipated Discharge Disposition: Home with assit/ Home with HH Expected DC Date: TBD Barriers to Discharge: Pt not medically ready for discharge Steps Taken Toward Discharge: CM met with Pt secondary to SNF refusal and discharge plan Next Steps: CM to send referral for HH to office, when orders placed Community Support Services Current Outpt/Agency/Support Groups: other (see comments)(Home health aid /caregivers) Community Agency Name: [facility] Other Resources: Discharge Transportation Transportation Needs: family or friend will provide Notes: CM met with Pt secondary to SNF refusal. Pt stated he wanted to go home, that he had Home health aid and caregivers to assist him. CM discussed HH options. Per Pt request, CM t o send referral to Dr. River office (fax# [phone]) as well as [place] [facility] specialist Tram Vance ( fax # [phone]) once order placed by Hospitalist. Pt to contact [facility] for evaluation for increased caregiver hours post surgery. Pt in adherence to this plan. P t to be here through the weekend. CM will continue to follow for discharge planning, pending clinical course. Electronically signed: Valentina Cool RN 10/13/2019 2:07 PM'Electronically s igned by Valentina Cool RN at 10/13/2019 2:11 PM PSTPlan of Marley Meng, PT - 10/13/2019 10:15 AM PST Physical Therapy Treatment Note Recommended discharge disposition: retirement facility(has had 2 bad experienced in pr evious SNF's) Post discharge physical therapy recommendation: will benefit from structured setting, fami ly involved/supportive, minimum 5 days of therapy/week, pt is motivated participant Equipment Recommendations: none Barriers to community-based discharge Physical Impairment, Level of assistance for ADLs/mobility, Lack of equipment, Precautions, Pain, and Fall risk Planned Interventions: balance training, bed mobility training, gait training, home exercis e program, strengthening, stair training, transfer training, ROM (Range of Motion), patient/ family education, manual therapy techniques (may reflect documentation from different provider) balance training, bed mobility trainin g, gait training, home exercise program, strengthening, stair training, transfer training, R OM (Range of Motion), patient/family education, manual therapy techniques Recommended Frequency: twice a day, 6 times/wk for 7 days PT reassessment due 10/20/19 Next visit information: 10/13;2P-mechanical lift Summary: Patient supine in bed- agreed to PT- really wanted to get up- wants to go home, b ut he just did not have the strength to stand-even with max of 2 person and raising bed- to almost standing height- he got standing 3x- each one less time-unable to shift weight or tommie e a step- having to use room lift to get him to alexander-recliner Precautions Precaution Comment: patient thinks he's more able to then reality at this point Left Lower Extremity Weight-Bearing: weight-bearing as tolerated Cognitive Assessment Cognitive Comments: A&O x4 Bed Mobility Additional Documentation: scooting/bridging, supine to/from sit Assistive Device: bed rails, HOB elevated Scoot/Bridge, Level of Lea: verbal cues required, moderate assist (50% patient eff ort) Supine to Sit, Level of Lea: 2 person assist required(mechanical) Sit to Supine, Level of Lea: maximal assist (25% patient effort) Safety Issues: decreased use of legs for bridging/pushing, decreased use of arms for pushin g/pulling(L-side) Transfers Transfers Comments: unable to assess at this time Additional Documentation: sit to/from stand, bed to/from chair Bed-Chair, Level of Lea: (mechanical lift) Chair-Bed, Level of Lea: (mechanical lift) [id number], Assistive Device: mechanical lift Sit-Stand, Level of Lea: 2 person assist required, verbal cues required(raise bed height) Stand-Sit, Level of Lea: 2 person assist required, verbal cues required [id number], Assistive Device: bariatric, 2 wheeled walker (FWW), gait belt Gait Gait Comments: patient unable to shift weight or take a step Exercises Additional Documentation: bed exercises Bed exercises: bilateral, ankle pumps, quad sets, glut sets, half bridging Repetitions: 3-5 Goals Reflects last filed data and may be from multiple contributors. All Bed Mobility Goal Most Recent Value LTG Status new at 10/13/2019 0730 LTG Lea Level minimum assist (75% patient effort) at 10/13/2019 0730 LTG Assistive Device bed rails, HOB elevated, overhead trapeze [he has these in his home] at 10/13/2019 0730 All Transfers Goal Most Recent Value LTG Status new at 10/13/201930 LTG Lea Level minimum assist (75% patient effort) at 10/13/2019 0730 LTG Assistive Device bariatric, 2 wheeled walker (FWW) at 10/13/2019 0730 Gait Goal Most Recent Value LTG Status new at 10/13/201930 LTG Lea Level minimum assist (75% patient effort) at 10/13/2019 0730 LTG Assistive Device bariatric, 2 wheeled walker (FWW) at 10/13/2019 0730 LTG Distance (feet) 200ft at 10/13/2019 0730 Stair Goal Most Recent Value LTG Status new at 10/13/2019 0730 LTG Lea Level minimum assist (75% patient effort) at 10/13/2019 0730 LTG Assistive Device 2 rails at 10/13/2019 0730 LTG Number of Stairs 2 at 10/13/2019 0730 lan of Care - Marley Fraser PT - 10/13/2019 7:30 AM PST Physical Therapy Initial Evaluation Note Recommended discharge disposition: home with assist(he only wants to go home-has 12/04 careg leigha) Post discharge physical therapy recommendation: family involved/supportive, will benefit f rom structured setting, home health Equipment Recommendations: none(he stated he has all needed DME) Barriers to community-based discharge Physical Impairment, Level of assistance for ADLs/mobility, Precautions, Pain, and Fall ris k Planned Interventions: balance training, bed mobility training, gait training, home exercis e program, strengthening, stair training, transfer training, ROM (Range of Motion), patient/ family education, manual therapy techniques (may reflect documentation from different provider) balance training, bed mobility trainin g, gait training, home exercise program, strengthening, stair training, transfer training, R OM (Range of Motion), patient/family education, manual therapy techniques Recommended Frequency: 6 times/wk, twice a day for 7 days PT reassessment due 10/20/19 Next visit information: 10/13;2P-PT-OOB assessment Summary: Patient supine in bed- is loud and outspoken during session; max assist of 2 will need to complete OOB asswssmwnt Precautions Left Lower Extremity Weight-Bearing: weight-bearing as tolerated Cognitive Assessment Cognitive Comments: A&O x4 Bed Mobility Additional Documentation: scooting/bridging, supine to/from sit Assistive Device: HOB elevated, bed rails Scoot/Bridge, Level of Lea: verbal cues required, minimal assist (75% patient effo rt) Supine to Sit, Level of Lea: 2 person assist required, maximal assist (25% patient effort), verbal cues required Sit to Supine, Level of Lea: maximal assist (25% patient effort), verbal cues requ ired Safety Issues: (unable to use L-UE/LE) Transfers Transfers Comments: unable to assess at this time Gait Gait Comments: unable to assess Exercises Additional Documentation: bed exercises Bed exercises: bilateral, ankle pumps, quad sets, glut sets Repetitions: 3-5reps Goals Reflects last filed data and may be from multiple contributors. All Bed Mobility Goal Most Recent Value LTG Status new at 10/13/2019 0730 LTG Lea Level minimum assist (75% patient effort) at 10/13/2019 0730 LTG Assistive Device bed rails, HOB elevated, overhead trapeze [he has these in his home] at 10/13/2019 0730 All Transfers Goal Most Recent Value LTG Status new at 10/13/2019 0730 LTG Lea Level minimum assist (75% patient effort) at 10/13/2019 0730 LTG Assistive Device bariatric, 2 wheeled walker (FWW) at 10/13/2019 0730 Gait Goal Most Recent Value LTG Status new at 10/13/2019 0730 LTG Lea Level minimum assist (75% patient effort) at 10/13/2019 0730 LTG Assistive Device bariatric, 2 wheeled walker (FWW) at 10/13/2019 0730 LTG Distance (feet) 200ft at 10/13/2019 0730 Stair Goal Most Recent Value LTG Status new at 10/13/2019 0730 LTG Lea Level minimum assist (75% patient effort) at 10/13/2019 0730 LTG Assistive Device 2 rails at 10/13/2019 0730 LTG Number of Stairs 2 at 10/13/2019 0730 lan of Care - Orlin Talamantes, Wendy Meng RN - 10/13/2019 4:19 AM PST Problem: Adult Inpatient Plan of Care Goal: Plan of Care Review Outcome: Ongoing, progressing Pt's VSS, pain under control. Call light within reach and no injuries reported. Non-slip s ocks on, bed in lowest position, and room free of clutter. [facility]. Wendy Prescott RN p Hui Allen MD - 10/12/2019 2:56 PM [facility] Service: Orthopedic Surgery Operative Note Pre-operative Diagnosis: L hip IT fx Post-operative Diagnosis: Same Procedure(s): L hip cephalomedullary nailing PDF< 1 hr Surgeon: Hui Parsons MD Fashion Model(s): n/a Anesthesia: General endotrachial anesthesia Estimated Blood Loss: 150cc Other: Implants:Synthes TFNA 12 x 440mm, 125mm blade Indications: See pre-operative history and physical. Findings: L hip IT fx Complications: none Description of Procedure:The patient was brought to the preoperative holding area where t he appropriate surgical site was marked. Pt was then taken back to the operative suite where they underwent general anesthesia. Pt was prepped and draped in the normal usual sterile fa shion on the HANA table with the feet securely fastened in the boots. Timeout for safety was performed confirming appropriate surgical site, side, and preoperative antibiotic. At the conclusion of the timeout a 3 cm incision placed 2 fingerbreadths proximal to the gr eater trochanter was carried down through skin and subcutaneous tissue to the overlying fasc ia. Using fluoroscopic guidance, a starting guidepin was placed at the tip of the greater tr ochanter, confirmed on AP and lateral projections to be in the appropriate plane. This was a dvanced into the proximal femur, starting guide drill was utilized over the guide pin. A be aded tip guide rhonda was then advanced under fluoroscopic guidance from the proximal to the di stal fracture fragments. Satisfied that the beaded tip guidewire had been advanced everardo cervantes and found to be center/center in the distal femur fragment in the AP and lateral projec tions, the patient was then sequentially reamed from size 12 up to a size 13 and a [id number] mm nail was selected. This was advanced over the guidewire. Guidewire was then removed. Using the guide jig proximally, a lateral incision was made along the proximal lateral thig h and a guidepin was placed through a triple trocar up into the femoral head. This was confi rmed on AP and lateral projections to be in the appropriate position. This was then measured . Lateral cortical reamer was utilized, followed by the step drill. This was drilled up to a length of 125 mm and a 125 mm helical blade was selected. This was advanced over the guidep in and the set screw was placed. Guide jig was then removed. One distal interlocking screw(s ) was placed using perfect [place] technique. Wounds were copiously irrigated with normal andrea ine solution and closed using 0 Vicryl suture, 2-0 Vicryl suture, and skin glue. Telfa and T egaderm dressings were then applied. The patient was awakened from anesthesia and brought to recovery room in satisfactory posit ion. Condition: Stable Electronically signed by: Hui Parsons MD 10/12/2019 2:56 PM lan of Care - Raul Fischer RN - 10/12/2019 9:27 AM PSTPt will remain free from falls and injury while in t he hospital lan of Car e - [place], Wendy Meng RN - 10/12/2019 4:44 AM PST Problem: Adult Inpatient Plan of Care Goal: Plan of Care Review Outcome: Ongoing, progressing Pt's VSS, pain under control, passing gas, and having multiple bowel movements. Call light within reach and no injuries reported. Non-slip socks on, bed in lowest position, and room free of clutter. [facility]. Wendy Prescott RN lan of Care - Muriel Quinn RN - 10/11/2019 7:56 PM PST Problem: Adult Inpatient Plan of Care Goal: Plan of Care Review Outcome: Ongoing, progressing Goal: Patient-Specific Goal Outcome: Ongoing, progressing Goal: Absence of Hospital-Acquired Illness or Injury Outcome: Ongoing, progressing Goal: Optimal Comfort and Wellbeing Outcome: Ongoing, progressing Goal: Readiness for Transition of Care Outcome: Ongoing, progressing Goal: Rounds/Family Conference Outcome: Ongoing, progressing Problem: Skin Injury Risk Increased Goal: Skin Health and Integrity Outcome: Ongoing, progressing Problem: Fall Injury Risk Goal: Absence of Fall and Fall-Related Injury Outcome: Ongoing, progressing Problem: Diabetes Comorbidity Goal: Blood Glucose Level Within Desired Range Outcome: Ongoing, progressing Problem: Hypertension Comorbidity Goal: Blood Pressure in Desired Range Outcome: Ongoing, progressing Problem: Pain Chronic (Persistent) (Comorbidity Management) Goal: Acceptable Pain Control and Functional Ability Outcome: Ongoing, progressing Problem: Adjustment to Injury (Hip Fracture) Goal: Optimal Coping with Change in Health Status Outcome: Ongoing, progressing Problem: Bleeding (Hip Fracture) Goal: Absence of Bleeding Outcome: Ongoing, progressing Problem: Bowel Elimination Impaired (Hip Fracture) Goal: Effective Bowel Elimination Outcome: Ongoing, progressing Problem: Delayed Union/Nonunion (Hip Fracture) Goal: Fracture Stability Outcome: Ongoing, progressing Problem: Embolism (Hip Fracture) Goal: Absence of Embolism Outcome: Ongoing, progressing Problem: Functional Ability Impaired (Hip Fracture) Goal: Optimal Functional Performance Outcome: Ongoing, progressing Problem: Pain (Hip Fracture) Goal: Acceptable Pain Level Outcome: Ongoing, progressing Problem: Urinary Elimination Impaired (Hip Fracture) Goal: Effective Urinary Elimination Outcome: Ongoing, progressing Problem: Heart Failure Comorbidity Goal: Maintenance of Heart Failure Symptom Control Outcome: Ongoing, progressing Pain has been an issue today while rolling the patient for hygiene. Repositioning and pain medication has helped to decrease discomfort. lan of Joann Shafer RN - 10/11/2019 1:52 AM PST Problem: Adult Inpatient Plan of Care Goal: Optimal Comfort and Wellbeing 10/11/2019 015 by Joann Meng RN Outcome: Ongoing, progressing Problem: Fall Injury Risk Goal: Absence of Fall and Fall-Related Injury 10/11/2019 015 by Joann Meng RN Outcome: Ongoing, progressing Pt tolerating pain well with PO pain meds. Remains free from falls and injury. Calls for he lp appropriately as needed. Joann Meng RN 10/11/2019 0153 lan of Erik - Staci Cotter RN - 10/10/2019 6:41 PM PSTPatient end of shift chart check complete. Dimas Quintanilla RN lan of Erik Valentina Salvador RN - 10/10/2019 1:56 PM PSTCare Management Initial As sessment Readmission Risk: Medium Status Prior to Admission or Illness Arrival From: home or self-care, admitted as an inpatient Lives With: other (see comments)(Has a live in health aid, and caregivers for 21hrs/week) Living Arrangements: house Caregiver For: no one, unable/limited ability to care for self Patient s Caregiver: other (see comments)(States he has a live in home health aid, and c aregivers ) Functional Status: Has live-in landcare facilitator. can do some ADL's independently but has caregiv er there to assist with ADL's Caregiving Concerns: None Home Accessibility: ramps present at home Transportation Available: family or friend will provide Able to return to prior living: yes Care Management Concerns Readmission Within Last 30 Days: no previous admission in last 30 days PCP: Jericho Cao MD Contact Information Family Contact Information: Name: Sarina (Spouse- do not live together) DC Needs Assessment Current Outpt/Agency/Support Groups: other (see comments)(Home health aid /caregivers) Community Agency Name: [facility] Anticipated Changes Related to Illness: inability to care for self Concerns to be Addressed: denies needs/concerns at this time, no discharge needs identified Services Anticipated at Discharge: home health care, retirement facility Equipment Used at Home: 4 wheeled walker (4WW), cane, straight, single point, oxygen Equipment Needed after Discharge: none Durable Medical Equipment Provider: [employer] Pharmacy/Medication Needs: other (see comments)([facility] [place]) Transportation Needs: family or friend will provide Initial Plan Anticipated Discharge Disposition: home with assist, home with home health, skilled nursin g facility Expected DC Date: TBD Steps Taken Toward Discharge: Initial admission assessment completed Next Steps: CM will continue to follow for discharge planning needs Notes: Pt from home, lives with a in home health aid, that [facility] not [facility] as well as caregivers 21hrs/week through [facility] in [place] contact . Pt states can do some ADL's independently but has caregivers there to assist with ADL's as well as cooking, cleaning, and bathing. Pt DME's: 4WW, single point cane, stick, and oxyg en. Oxygen through [employer]. Pt currently taking Eliquis and denies dialysis. Pt is [employer] member a nd 100% connected, if Pt needs increased caregivers hours, Pt will need to be re-evaluated f or increase through [facility]/[place]. No other needs identified at this time, [facility] needs, pending clinical course. Electronically signed: Valentina Cool RN 10/10/2019 1:56 PM [facility] - Staci Quintanilla RN - 10/10/2019 12:30 PM PST Problem: Skin Injury Risk Increased Goal: Skin Health and Integrity Outcome: Ongoing, progressing Problem: Pain Chronic (Persistent) (Comorbidity Management) Goal: Acceptable Pain Control and Functional Ability Outcome: Ongoing, progressing Problem: Adjustment to Injury (Hip Fracture) Goal: Optimal Coping with Change in Health Status Outcome: Ongoing, progressing lan of Care - Nohemy Denson RN - 10/10/2019 5:15 [address] PSTDr. Bañuelos notified of critical K+ 6.3 with new orders. EKG completed. Notified Sarmad of results, stating to continue to monitor and t reat hyperkalemia. [facility]Plan [facility] - Tyrone Kelly MD - 10/10/2019 3:33 AM PSTLeft hip Fracture -xrays orders to characterize fracture pattern, per report Intertrochanteric femur fracture . -OR will likely take place 10/11/2019 or later pending OR availability and surgeon availabil ity. -Last dose of eliquis was Wednesday evening 10/09/2019 -Due to medical comorbidities, anesthesia may prefer spinal anesthesia, which would further delay surgery due to eliquis administration -bedrest -pain control lan of [facility] - Nohemy Norman RN - 10/10/2019 2:59 AM PSTPatient is resting in low bed with call light, non-skid socks, bed rail x4, tab alarm and side table. Pain managed with PO PRN medications upon arrival. x4 days without BM reported, with miralax given. Extensive 2+ person assist w ith bed mobility and pericare. Bed rest at this time until surgical consult. Educated on IS use throughout the night. At this time patient declines stating it hurts too bad. Educated o n increased risk of pneumonia with reported left side rib fractures. Placed on tele with noemi b and irregular rhythm noted. VSS on arrival. Chart check complete. lan of Erik - Nohemy Aguilar RN - 10/10/2019 2:05 AM PST Problem: Skin Injury Risk Increased Goal: Skin Health and Integrity Outcome: Ongoing, progressing Incontinence care as required. Educated and encouraged on repositioning. Problem: Fall Injury Risk Goal: Absence of Fall and Fall-Related Injury Outcome: Ongoing, progressing Low bed, bed rails x4 and tab alarm in place. Problem: Functional Ability Impaired (Hip Fracture) Goal: Optimal Functional Performance Outcome: Ongoing, progressing Ceiling lift required for transfer from gurney to bed. 2+ person assist with all adl's. Problem: Pain (Hip Fracture) Goal: Acceptable Pain Level Outcome: Ongoing, progressing States pain has been managed up to this point. Problem: Urinary Elimination Impaired (Hip Fracture) Goal: Effective Urinary Elimination Outcome: Ongoing, progressing Voiding without difficulty. documented in this encounter Plan of Treatment + + +--------+ + + | Name | Type | Priori | Associated Diagnoses | Order Schedule | | | | ty | | | + + +--------+ + + | Referral to Home | Outpatient | Routin | Closed fracture of | Ordered: 10/13/2019 | | Health | Referral | e | left hip, initial | | | | | | encounter ([facility]) | | + + +--------+ + + documented as of this encounter Procedures + +--------+ + + + | Procedure Name | Priori | Date/Time | Associated Diagnosis | Comments | | | ty | | | | + +--------+ + + + | POC GLUCOSE (NON | Routin | 10/18/2019 | | Results for this | | ORD) | e | 11:46 AM | | procedure are in the | | | | PST | | results section. | + +--------+ + + + | POC GLUCOSE (NON | Routin | 10/18/2019 | | Results for this | | ORD) | e | 8:26 AM | | procedure are in the | | | | PST | | results section. | + +--------+ + + + | POC GLUCOSE (NON | Routin | 10/17/2019 | | Results for this | | ORD) | e | 8:51 PM | | procedure are in the | | | | PST | | results section. | + +--------+ + + + | POC GLUCOSE (NON | Routin | 10/17/2019 | | Results for this | | ORD) | e | 4:31 PM | | procedure are in the | | | | PST | | results section. | + +--------+ + + + | POC GLUCOSE (NON | Routin | 10/17/2019 | | Results for this | | ORD) | e | 12:05 PM | | procedure are in the | | | | PST | | results section. | + +--------+ + + + | POC GLUCOSE (NON | Routin | 10/17/2019 | | Results for this | | ORD) | e | 8:37 AM | | procedure are in the | | | | PST | | results section. | + +--------+ + + + | POC GLUCOSE (NON | Routin | 10/17/2019 | | Results for this | | ORD) | e | 3:07 AM | | procedure are in the | | | | PST | | results section. | + +--------+ + + + | POC GLUCOSE (NON | Routin | 10/16/2019 | | Results for this | | ORD) | e | 9:01 PM | | procedure are in the | | | | PST | | results section. | + +--------+ + + + | POC GLUCOSE (NON | Routin | 10/16/2019 | | Results for this | | ORD) | e | 4:22 PM | | procedure are in the | | | | PST | | results section. | + +--------+ + + + | POC GLUCOSE (NON | Routin | 10/16/2019 | | Results for this | | ORD) | e | 11:41 AM | | procedure are in the | | | | PST | | results section. | + +--------+ + + + | POC GLUCOSE (NON | Routin | 10/16/2019 | | Results for this | | ORD) | e | 8:01 AM | | procedure are in the | | | | PST | | results section. | + +--------+ + + + | POC GLUCOSE (NON | Routin | 10/15/2019 | | Results for this | | ORD) | e | 8:59 PM | | procedure are in the | | | | PST | | results section. | + +--------+ + + + | POC GLUCOSE (NON | Routin | 10/15/2019 | | Results for this | | ORD) | e | 4:32 PM | | procedure are in the | | | | PST | | results section. | + +--------+ + + + | POC GLUCOSE (NON | Routin | 10/15/2019 | | Results for this | | ORD) | e | 12:11 PM | | procedure are in the | | | | PST | | results section. | + +--------+ + + + | POC GLUCOSE (NON | Routin | 10/15/2019 | | Results for this | | ORD) | e | 7:36 AM | | procedure are in the | | | | PST | | results section. | + +--------+ + + + | BASIC METABOLIC | Routin | 10/15/2019 | | Results for this | | PANEL | e | 4:38 AM | | procedure are in the | | | | PST | | results section. | + +--------+ + + + | POC GLUCOSE (NON | Routin | 10/14/2019 | | Results for this | | ORD) | e | 8:48 PM | | procedure are in the | | | | PST | | results section. | + +--------+ + + + | POC GLUCOSE (NON | Routin | 10/14/2019 | | Results for this | | ORD) | e | 4:51 PM | | procedure are in the | | | | PST | | results section. | + +--------+ + + + | POC GLUCOSE (NON | Routin | 10/14/2019 | | Results for this | | ORD) | e | 12:01 PM | | procedure are in the | | | | PST | | results section. | + +--------+ + + + | POC GLUCOSE (NON | Routin | 10/14/2019 | | Results for this | | ORD) | e | 8:36 AM | | procedure are in the | | | | PST | | results section. | + +--------+ + + + | PROTIME INR | Routin | 10/14/2019 | | Results for this | | | e | 4:37 AM | | procedure are in the | | | | PST | | results section. | + +--------+ + + + | BASIC METABOLIC | Routin | 10/14/2019 | | Results for this | | PANEL | e | 4:37 AM | | procedure are in the | | | | PST | | results section. | + +--------+ + + + | POC GLUCOSE (NON | Routin | 10/13/2019 | | Results for this | | ORD) | e | 8:32 PM | | procedure are in the | | | | PST | | results section. | + +--------+ + + + | BASIC METABOLIC | STAT | 10/13/2019 | | Results for this | | PANEL | | 5:01 PM | | procedure are in the | | | | PST | | results section. | + +--------+ + + + | POC GLUCOSE (NON | Routin | 10/13/2019 | | Results for this | | ORD) | e | 4:22 PM | | procedure are in the | | | | PST | | results section. | + +--------+ + + + | POC GLUCOSE (NON | Routin | 10/13/2019 | | Results for this | | ORD) | e | 12:02 PM | | procedure are in the | | | | PST | | results section. | + +--------+ + + + | POC GLUCOSE (NON | Routin | 10/13/2019 | | Results for this | | ORD) | e | 7:38 AM | | procedure are in the | | | | PST | | results section. | + +--------+ + + + | PROTIME INR | Routin | 10/13/2019 | | Results for this | | | e | 5:15 AM | | procedure are in the | | | | PST | | results section. | + +--------+ + + + | CBC WITH | Routin | 10/13/2019 | | Results for this | | DIFFERENTIAL | e | 5:15 AM | | procedure are in the | | | | PST | | results section. | + +--------+ + + + | BASIC METABOLIC | Routin | 10/13/2019 | | Results for this | | PANEL | e | 5:15 AM | | procedure are in the | | | | PST | | results section. | + +--------+ + + + | POC GLUCOSE (NON | Routin | 10/13/2019 | | Results for this | | ORD) | e | 4:45 AM | | procedure are in the | | | | PST | | results section. | + +--------+ + + + | POC GLUCOSE (NON | Routin | 10/12/2019 | | Results for this | | ORD) | e | 8:29 PM | | procedure are in the | | | | PST | | results section. | + +--------+ + + + | XR FEMUR LEFT 2+VW | Routin | 10/12/2019 | | Results for this | | | e | 7:20 PM | | procedure are in the | | | | PST | | results section. | + +--------+ + + + | POC GLUCOSE (NON | Routin | 10/12/2019 | | Results for this | | ORD) | e | 4:35 PM | | procedure are in the | | | | PST | | results section. | + +--------+ + + + | POC GLUCOSE (NON | Routin | 10/12/2019 | | Results for this | | ORD) | e | 3:13 PM | | procedure are in the | | | | PST | | results section. | + +--------+ + + + | FL C ARM | Routin | 10/12/2019 | | Results for this | | | e | 2:55 PM | | procedure are in the | | | | PST | | results section. 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 | | | Multip | | | le | | | medica | | | l | | | comorb | | | iditie | | | s. | | | Please | | | have | | | anesth | | | esia | | | review | | | | | | patien | | | t MEME | | | for | | | recomm | | | endati | | | ons | | | regard | | | ing | | | genera | | | l vs | | | spinal | | | . | +---+--------+ + +--------+ +---+ + | POC GLUCOSE (NON | Routin | 10/12/2019 | | Results for this | | ORD) | e | 11:44 AM | | procedure are in the | | | | PST | | results section. | + +--------+ +---+ + | CULTURE, MRSA | Routin | 10/12/2019 | | Results for this | | | e | 8:09 AM | | procedure are in the | | | | PST | | results section. | + +--------+ +---+ + | POC GLUCOSE (NON | Routin | 10/12/2019 | | Results for this | | ORD) | e | 7:46 AM | | procedure are in the | | | | PST | | results section. | + +--------+ +---+ + | PROTIME INR | Routin | 10/12/2019 | | Results for this | | | e | 4:12 AM | | procedure are in the | | | | PST | | results section. | + +--------+ +---+ + | CBC WITH | Routin | 10/12/2019 | | Results for this | | DIFFERENTIAL | e | 4:12 AM | | procedure are in the | | | | PST | | results section. | + +--------+ +---+ + | BASIC METABOLIC | Routin | 10/12/2019 | | Results for this | | PANEL | e | 4:12 AM | | procedure are in the | | | | PST | | results section. | + +--------+ +---+ + | POC GLUCOSE (NON | Routin | 10/11/2019 | | Results for this | | ORD) | e | 8:46 PM | | procedure are in the | | | | PST | | results section. | + +--------+ +---+ + | POC GLUCOSE (NON | Routin | 10/11/2019 | | Results for this | | ORD) | e | 5:04 PM | | procedure are in the | | | | PST | | results section. | + +--------+ +---+ + | POC GLUCOSE (NON | Routin | 10/11/2019 | | Results for this | | ORD) | e | 11:57 AM | | procedure are in the | | | | PST | | results section. | + +--------+ +---+ + | POC GLUCOSE (NON | Routin | 10/11/2019 | | Results for this | | ORD) | e | 8:13 AM | | procedure are in the | | | | PST | | results section. | + +--------+ +---+ + | BASIC METABOLIC | STAT | 10/11/2019 | | Results for this | | PANEL | | 7:26 AM | | procedure are in the | | | | PST | | results section. | + +--------+ +---+ + | PTT | Routin | 10/11/2019 | | Results for this | | | e | 5:23 AM | | procedure are in the | | | | PST | | results section. | + +--------+ +---+ + | PROTIME INR | Routin | 10/11/2019 | | Results for this | | | e | 5:23 AM | | procedure are in the | | | | PST | | results section. | + +--------+ +---+ + | CBC WITH | Routin | 10/11/2019 | | Results for this | | DIFFERENTIAL | e | 5:23 AM | | procedure are in the | | | | PST | | results section. | + +--------+ +---+ + | ECG 12 LEAD | Routin | 10/11/2019 | | Results for this | | | e | 4:41 AM | | procedure are in the | | | | PST | | results section. | + +--------+ +---+ + | POC GLUCOSE (NON | Routin | 10/11/2019 | | Results for this | | ORD) | e | 4:08 AM | | procedure are in the | | | | PST | | results section. | + +--------+ +---+ + | BASIC METABOLIC | STAT | 10/11/2019 | | Results for this | | PANEL | | 12:46 AM | | procedure are in the | | | | PST | | results section. | + +--------+ +---+ + | POC GLUCOSE (NON | Routin | 10/10/2019 | | Results for this | | ORD) | e | 8:44 PM | | procedure are in the | | | | PST | | results section. | + +--------+ +---+ + | BASIC METABOLIC | STAT | 10/10/2019 | | Results for this | | PANEL | | 6:59 PM | | procedure are in the | | | | PST | | results section. | + +--------+ +---+ + | POC GLUCOSE (NON | Routin | 10/10/2019 | | Results for this | | ORD) | e | 5:31 PM | | procedure are in the | | | | PST | | results section. | + +--------+ +---+ + | POC GLUCOSE (NON | Routin | 10/10/2019 | | Results for this | | ORD) | e | 4:06 PM | | procedure are in the | | | | PST | | results section. | + +--------+ +---+ + | BASIC METABOLIC | STAT | 10/10/2019 | | Results for this | | PANEL | | 12:50 PM | | procedure are in the | | | | PST | | results section. | + +--------+ +---+ + | POC GLUCOSE (NON | Routin | 10/10/2019 | | Results for this | | ORD) | e | 11:54 AM | | procedure are in the | | | | PST | | results section. | + +--------+ +---+ + | BASIC METABOLIC | STAT | 10/10/2019 | | Results for this | | PANEL | | 8:56 AM | | procedure are in the | | | | PST | | results section. | + +--------+ +---+ + | XR FEMUR LEFT 1 VW | MEME | 10/10/2019 | | Results for this | | | | 8:20 AM | | procedure are in the | | | | PST | | results section. | + +--------+ +---+ + | XR PELVIS 1 OR 2 VW | [facility]E | 10/10/2019 | | Results for this | | | | 8:18 AM | | procedure are in the | | | | PST | | results section. | + +--------+ +---+ + | POC GLUCOSE (NON | Routin | 10/10/2019 | | Results for this | | ORD) | e | 7:49 AM | | procedure are in the | | | | PST | | results section. | + +--------+ +---+ + | BASIC METABOLIC | STAT | 10/10/2019 | | Results for this | | PANEL | | 6:08 AM | | procedure are in the | | | | PST | | results section. | + +--------+ +---+ + | ECG 12 LEAD | STAT | 10/10/2019 | | Results for this | | | | 5:04 AM | | procedure are in the | | | | PST | | results section. | + +--------+ +---+ + | LIPID PANEL | Routin | 10/10/2019 | | Results for this | | | e | 4:04 AM | | procedure are in the | | | | PST | | results section. | + +--------+ +---+ + | PTT | Routin | 10/10/2019 | | Results for this | | | e | 4:04 AM | | procedure are in the | | | | PST | | results section. | + +--------+ +---+ + | PROTIME INR | Routin | 10/10/2019 | | Results for this | | | e | 4:04 AM | | procedure are in the | | | | PST | | results section. | + +--------+ +---+ + | CBC WITH | Routin | 10/10/2019 | | Results for this | | DIFFERENTIAL | e | 4:04 AM | | procedure are in the | | | | PST | | results section. | + +--------+ +---+ + | TYPE AND SCREEN | MEME | 10/10/2019 | | Results for this | | | | 4:04 AM | | procedure are in the | | | | PST | | results section. | + +--------+ +---+ + | MAGNESIUM | Routin | 10/10/2019 | | Results for this | | | e | 4:04 AM | | procedure are in the | | | | PST | | results section. | + +--------+ +---+ + | HEMOGLOBIN A1C | Routin | 10/10/2019 | | Results for this | | | e | 4:04 AM | | procedure are in the | | | | PST | | results section. | + +--------+ +---+ + | COMPREHENSIVE | Routin | 10/10/2019 | | Results for this | | METABOLIC PANEL | e | 4:04 AM | | procedure are in the | | | | PST | | results section. | + +--------+ +---+ + | CT SOFT TISSUE NECK | Routin | 06/19/2018 | | Results for this | | W WO CONTRAST | e | 3:55 PM | | procedure are in the | | | | PDT | | results section. | + +--------+ +---+ + | CT VENOGRAM HEAD W | Routin | 06/19/2018 | | Results for this | | WO CONTRAST | e | 3:30 PM | | procedure are in the | | | | PDT | | results section. | + +--------+ +---+ + | XR CHEST 1 VIEW | Routin | 06/19/2018 | | Results for this | | | e | 2:40 PM | | procedure are in the | | | | PDT | | results section. | + +--------+ +---+ + | CT HEAD WO CONTRAST | Routin | 06/19/2018 | | Results for this | | | e | 2:25 PM | | procedure are in the | | | | PDT | | results section. | + +--------+ +---+ + documented in this encounter Results POC Glucose (10/18/2019 11:46 AM PST) + + + + + + | Component | Value | Ref Range | Performed | Pathologist | | | | | At | Signature | + + + + + + | Glucose, | 196 (H)Comment: Testing | 65 - 99 mg/dL | [facility] | | | POC | performed at [facility] | | LABORAT[facility] | | | | [address];[place] | | | | | | [address] | | | | + + + + + + + + | Specimen | + + | | + + + + + + + | Performing | Address | City/State/Zipcode | Phone Number | | Organization | | | | + + + + + | [facility] | [address] | [place] [address] | [phone] | + + + + + POC Glucose (10/18/2019 8:26 AM PST) + + + + + + | Component | Value | Ref Range | Performed | Pathologist | | | | | At | Signature | + + + + + + | Glucose, | 170 (H)Comment: Testing | 65 - 99 mg/dL | [facility] | | | POC | performed at [facility] | | LABORATORY | | | | [address];[place], [place] | | | | | | [address] | | | | + + + + + + + + | Specimen | + + | | + + + + + + + | Performing | Address | City/State/Zipcode | Phone Number | | Organization | | | | + + + + + | [facility] | [address] | [place] [address] | [phone] | + + + + + POC Glucose (10/17/2019 8:51 PM PST) + + + + + + | Component | Value | Ref Range | Performed | Pathologist | | | | | At | Signature | + + + + + + | Glucose, | 172 (H)Comment: Testing | 65 - 99 mg/dL | [facility] | | | POC | performed at [facility] | | LABORATORY | | | | [address];[place], [place] | | | | | | [address] | | | | + + + + + + + + | Specimen | + + | | + + + + + + + | Performing | Address | City/State/Zipcode | Phone Number | | Organization | | | | + + + + + | [facility] | [address] [facility] | [place] [address] | [phone] | + + + + + POC Glucose (10/17/2019 4:31 PM PST) + + + + + + | Component | Value | Ref Range | Performed | Pathologist | | | | | At | Signature | + + + + + + | Glucose, | 221 (H)Comment: Testing | 65 - 99 mg/dL | [facility] | | | POC | performed at [facility] | | LABORATORY | | | | [address];[place], [place] | | | | | | [address] | | | | + + + + + + + + | Specimen | + + | | + + + + + + + | Performing | Address | City/State/Zipcode | Phone Number | | Organization | | | | + + + + + | [facility] | [address] | [place] [address] | [phone] | + + + + + POC Glucose (10/17/2019 12:05 PM PST) + + + + + + | Component | Value | Ref Range | Performed | Pathologist | | | | | At | Signature | + + + + + + | Glucose, | 190 (H)Comment: Testing | 65 - 99 mg/dL | [facility] | | | POC | performed at [facility] | | LABORATORY | | | | [address];[place] | | | | | | [address] | | | | + + + + + + + + | Specimen | + + | | + + + + + + + | Performing | Address | City/State/Zipcode | Phone Number | | Organization | | | | + + + + + | [facility] | [address] | [place] [address] | [phone] | + + + + + POC Glucose (10/17/2019 8:37 AM PST) + + + + + + | Component | Value | Ref Range | Performed | Pathologist | | | | | At | Signature | + + + + + + | Glucose, | 129 (H)Comment: Testing | 65 - 99 mg/dL | [facility] | | | POC | performed at [facility] | | LABORATORY | | | | [address];[place], [place] | | | | | | [address] | | | | + + + + + + + + | Specimen | + + | | + + + + + + + | Performing | Address | City/State/Zipcode | Phone Number | | Organization | | | | + + + + + | [facility] | [address] | [place] [address] | [phone] | + + + + + POC Glucose (10/17/2019 3:07 AM PST) + + + + + + | Component | Value | Ref Range | Performed | Pathologist | | | | | At | Signature | + + + + + + | Glucose, | 162 (H)Comment: Testing | 65 - 99 mg/dL | [facility] | | | POC | performed at [facility] | | LABORATORY | | | | [address];[place] | | | | | | [address] | | | | + + + + + + + + | Specimen | + + | | + + + + + + + | Performing | Address | City/State/Zipcode | Phone Number | | Organization | | | | + + + + + | [facility] | [address] | [place] [address] | [phone] | + + + + + POC Glucose (10/16/2019 9:01 PM PST) + + + + + + | Component | Value | Ref Range | Performed | Pathologist | | | | | At | Signature | + + + + + + | Glucose, | 244 (H)Comment: Testing | 65 - 99 mg/dL | [facility] | | | POC | performed at [facility] | | LABORATORY | | | | [address];[place] | | | | | | [address] | | | | + + + + + + + + | Specimen | + + | | + + + + + + + | Performing | Address | City/State/Zipcode | Phone Number | | Organization | | | | + + + + + | [facility] | [address] | [place] [address] | [phone] | + + + + + POC Glucose (10/16/2019 4:22 PM PST) + + + + + + | Component | Value | Ref Range | Performed | Pathologist | | | | | At | Signature | + + + + + + | Glucose, | 209 (H)Comment: Testing | 65 - 99 mg/dL | [facility] | | | POC | performed at [facility] | | LABORATORY | | | | [address];[place] | | | | | | [address] | | | | + + + + + + + + | Specimen | + + | | + + + + + + + | Performing | Address | City/State/Zipcode | Phone Number | | Organization | | | | + + + + + | [facility] | [address] | [place] [address] | [phone] | + + + + + POC Glucose (10/16/2019 11:41 AM PST) + + + + + + | Component | Value | Ref Range | Performed | Pathologist | | | | | At | Signature | + + + + + + | Glucose, | 279 (H)Comment: Testing | 65 - 99 mg/dL | [facility] | | | POC | performed at [facility] | | LABORATORY | | | | [address];[place], [place] | | | | | | [address] | | | | + + + + + + + + | Specimen | + + | | + + + + + + + | Performing | Address | City/State/Zipcode | Phone Number | | Organization | | | | + + + + + | [facility] | [address] | [place] [address] | [phone] | + + + + + POC Glucose (10/16/2019 8:01 AM PST) + + + + + + | Component | Value | Ref Range | Performed | Pathologist | | | | | At | Signature | + + + + + + | Glucose, | 146 (H)Comment: Testing | 65 - 99 mg/dL | [facility] | | | POC | performed at [facility] | | LABORATORY | | | | [address];[place] | | | | | | [address] | | | | + + + + + + + + | Specimen | + + | | + + + + + + + | Performing | Address | City/State/Zipcode | Phone Number | | Organization | | | | + + + + + | [facility] | [address] | [place] [address] | [phone] | + + + + + POC Glucose (10/15/2019 8:59 PM PST) + + + + + + | Component | Value | Ref Range | Performed | Pathologist | | | | | At | Signature | + + + + + + | Glucose, | 159 (H)Comment: Testing | 65 - 99 mg/dL | [facility] | | | POC | performed at [facility] | | LABORATORY | | | | [address];[place] | | | | | | [address] | | | | + + + + + + + + | Specimen | + + | | + + + + + + + | Performing | Address | City/State/Zipcode | Phone Number | | Organization | | | | + + + + + | [facility] | [address] | [place] [address] | [phone] | + + + + + POC Glucose (10/15/2019 4:32 PM PST) + + + + + + | Component | Value | Ref Range | Performed | Pathologist | | | | | At | Signature | + + + + + + | Glucose, | 140 (H)Comment: Testing | 65 - 99 mg/dL | [facility] | | | POC | performed at [facility] | | LABORATORY | | | | [address];[place], [place] | | | | | | [address] | | | | + + + + + + + + | Specimen | + + | | + + + + + + + | Performing | Address | City/State/Zipcode | Phone Number | | Organization | | | | + + + + + | [facility] | [address] | [place] [address] | [phone] | + + + + + POC Glucose (10/15/2019 12:11 PM PST) + + + + + + | Component | Value | Ref Range | Performed | Pathologist | | | | | At | Signature | + + + + + + | Glucose, | 223 (H)Comment: Testing | 65 - 99 mg/dL | [facility] | | | POC | performed at [facility] | | LABORATORY | | | | [address];[place] | | | | | | [address] | | | | + + + + + + + + | Specimen | + + | | + + + + + + + | Performing | Address | City/State/Zipcode | Phone Number | | Organization | | | | + + + + + | [facility] | [address] | [place] [address] | [phone] | + + + + + POC Glucose (10/15/2019 7:36 AM PST) + + + + + + | Component | Value | Ref Range | Performed | Pathologist | | | | | At | Signature | + + + + + + | Glucose, | 167 (H)Comment: Testing | 65 - 99 mg/dL | [facility] | | | POC | performed at [facility] | | LABORATORY | | | | [address];[place] | | | | | | [address] | | | | + + + + + + + + | Specimen | + + | | + + + + + + + | Performing | Address | City/State/Zipcode | Phone Number | | Organization | | | | + + + + + | [facility] | [address] | [place] [address] | [phone] | + + + + + Basic Metabolic Panel (10/15/2019 4:38 AM PST) + + + + + + | Component | Value | Ref Range | Performed | Pathologist | | | | | At | Signature | + + + + + + | Na | 140 | 135 - 145 | [facility] | | | | | mmol/L | LABORATORY | | + + + + + + | K | 4.3 | 3.5 - 4.9 | [facility] | | | | | mmol/L | LABORATORY | | + + + + + + | Cl | 109 | 99 - 109 mmol/L | [facility] | | | | | | LABORATORY | | + + + + + + | CO2 | 25 | 23 - 32 mmol/L | [facility] | | | | | | LABORATORY | | + + + + + + | Anion Gap | 10 | 5 - 20 mmol/L | [facility] | | | | | | LABORATORY | | + + + + + + | Glucose | 190 (H) | 65 - 99 mg/dL | [facility] | | | | | | LABORATORY | | + + + + + + | BUN | 32 (H) | 8 - 25 mg/dL | [facility] | | | | | | LABORATORY | | + + + + + + | Creatinine | 1.5 (H) | 0.70 - 1.30 | [facility] | | | | | mg/dL | LABORATORY | | + + + + + + | BUN/Creatin | 21 | | [facility] | | | ine Ratio | | | LABORATORY | | + + + + + + | Calcium | 8.6 | 8.5 - 10.5 | [facility] | | | | | mg/dL | LABORATORY | | + + + + + + | Estimated | 47 (L)Comment: GFR <60: | >60 | [facility] | | | GFR | CHRONIC KIDNEY DISEASE, | mL/min/1.73m2 | LABORATORY | | | | IF FOUND OVER A 3 MONTH | | | | | | PERIOD.GFR <15: KIDNEY | | | | | | FAILURE.FOR | | | | | | AMERICANS, MULTIPLY THE | | | | | | CALCULATED GFR BY | | | | | | 1.210.This eGFR is | | | | | | calculated using the | | | | | | MDRD IDMS traceable | | | | | | equation.Testing | | | | | | performed at [facility], [address] | | | | | [address] [facility], | | | | | | [place] [address] | | | | + + + + + + + + | Specimen | + + | Blood | + + + + + + + | Performing | Address | City/State/Zipcode | Phone Number | | Organization | | | | + + + + + | [facility] | [address] | [place] [address] | [phone] | + + + + + POC Glucose (10/14/2019 8:48 PM PST) + + + + + + | Component | Value | Ref Range | Performed | Pathologist | | | | | At | Signature | + + + + + + | Glucose, | 175 (H)Comment: Testing | 65 - 99 mg/dL | [facility] | | | POC | performed at [facility] | | LABORATORY | | | | [address];[place] | | | | | | [address] | | | | + + + + + + + + | Specimen | + + | | + + + + + + + | Performing | Address | City/State/Zipcode | Phone Number | | Organization | | | | + + + + + | [facility] | [address] | [place] [address] | [phone] | + + + + + POC Glucose (10/14/2019 4:51 PM PST) + + + + + + | Component | Value | Ref Range | Performed | Pathologist | | | | | At | Signature | + + + + + + | Glucose, | 136 (H)Comment: Testing | 65 - 99 mg/dL | [facility] | | | POC | performed at [facility] | | LABORATORY | | | | [address];[place] | | | | | | [address] | | | | + + + + + + + + | Specimen | + + | | + + + + + + + | Performing | Address | City/State/Zipcode | Phone Number | | Organization | | | | + + + + + | [facility] | [address] | [place] [address] | [phone] | + + + + + POC Glucose (10/14/2019 12:01 PM PST) + + + + + + | Component | Value | Ref Range | Performed | Pathologist | | | | | At | Signature | + + + + + + | Glucose, | 118 (H)Comment: Testing | 65 - 99 mg/dL | [facility] | | | POC | performed at [facility] | | [facility]ORATORY | | | | [address];[place] | | | | | | [address] | | | | + + + + + + + + | Specimen | + + | | + + + + + + + | Performing | Address | City/State/Zipcode | Phone Number | | Organization | | | | + + + + + | [facility] | [address] | [place] [address] | [phone] | + + + + + POC Glucose (10/14/2019 8:36 AM PST) + + + + + + | Component | Value | Ref Range | Performed | Pathologist | | | | | At | Signature | + + + + + + | Glucose, | 168 (H)Comment: Testing | 65 - 99 mg/dL | [facility] | | | POC | performed at [facility] | | LABORATORY | | | | [address];[place], [place] | | | | | | [address] | | | | + + + + + + + + | Specimen | + + | | + + + + + + + | Performing | Address | City/State/Zipcode | Phone Number | | Organization | | | | + + + + + | [facility] | [address] | [place] [address] | [phone] | + + + + + Protime INR (10/14/2019 4:37 AM PST) + + + + + + | Component | Value | Ref Range | Performed | Pathologist | | | | | At | Signature | + + + + + + | INR | 1.1Comment: REFERENCE | | KR | | | | RANGE:0.9 - 1.2 | | LABORATORY | | | | NON-ANTICOAGULATED2.0 | | | | | | - 3.0 ALL OTHER | | | | | | THERAPEUTIC | | | | | | INDICATIONS2.5 - 3.5 | | | | | | MECHANICAL HEART VALVES, | | | | | | RECURRENT OR SYSTEMIC | | | | | | EMBOLISMTesting | | | | | | performed at [facility] | | | | | | [address];[place], [place] | | | | | | [address] | | | | + + + + + + + + | Specimen | + + | Blood | + + + + + + + | Performing | Address | City/State/Zipcode | Phone Number | | Organization | | | | + + + + + | [facility] | [address] | [place] [address] | [phone] | + + + + + Basic Metabolic Panel (10/14/2019 4:37 AM PST) + + + + + + | Component | Value | Ref Range | Performed | Pathologist | | | | | At | Signature | + + + + + + | Na | 139 | 135 - 145 | [facility] | | | | | mmol/L | LABORATORY | | + + + + + + | K | 4.4 | 3.5 - 4.9 | [facility] | | | | | mmol/L | LABORATORY | | + + + + + + | Cl | 110 (H) | 99 - 109 mmol/L | [facility] | | | | | | LABORATORY | | + + + + + + | CO2 | 23 | 23 - 32 mmol/L | [facility] | | | | | | LABORATORY | | + + + + + + | Anion Gap | 10 | 5 - 20 mmol/L | [facility] | | | | | | LABORATORY | | + + + + + + | Glucose | 172 (H) | 65 - 99 mg/dL | [facility] | | | | | | LABORATORY | | + + + + + + | BUN | 42 (H) | 8 - 25 mg/dL | [facility] | | | | | | LABORATORY | | + + + + + + | Creatinine | 1.8 (H) | 0.70 - 1.30 | [facility] | | | | | mg/dL | LABORATORY | | + + + + + + | BUN/Creatin | 23 | | [facility] | | | ine Ratio | | | LABORATORY | | + + + + + + | Calcium | 8.5 | 8.5 - 10.5 | [facility] | | | | | mg/dL | LABORATORY | | + + + + + + | Estimated | 38 (L)Comment: GFR <60: | >60 | [facility] | | | GFR | CHRONIC KIDNEY DISEASE, | mL/min/1.73m2 | LABORATORY | | | | IF FOUND OVER A 3 MONTH | | | | | | PERIOD.GFR <15: KIDNEY | | | | | | FAILURE.FOR | | | | | | AMERICANS, MULTIPLY THE | | | | | | CALCULATED GFR BY | | | | | | 1.210.This eGFR is | | | | | | calculated using the | | | | | | MDRD IDMS traceable | | | | | | equation.Testing | | | | | | performed at [facility], [address] | | | | | [address], | | | | | | [place] [address] | | | | + + + + + + + + | Specimen | + + | Blood | + + + + + + + | Performing | Address | City/State/Zipcode | Phone Number | | Organization | | | | + + + + + | [facility] | [address] | [place] [address] | [phone] | + + + + + POC Glucose (10/13/2019 8:32 PM PST) + + + + + + | Component | Value | Ref Range | Performed | Pathologist | | | | | At | Signature | + + + + + + | Glucose, | 197 (H)Comment: Testing | 65 - 99 mg/dL | [facility] | | | POC | performed at [facility] | | LABORATORY | | | | [address];[place], [place] | | | | | | [address] | | | | + + + + + + + + | Specimen | + + | | + + + + + + + | Performing | Address | City/State/Zipcode | Phone Number | | Organization | | | | + + + + + | [facility] | [address] | [place] [address] | [phone] | + + + + + Basic Metabolic Panel (10/13/2019 5:01 PM PST) + + + + + + | Component | Value | Ref Range | Performed | Pathologist | | | | | At | Signature | + + + + + + | Na | 139 | 135 - 145 | [facility] | | | | | mmol/L | LABORATORY | | + + + + + + | K | 4.4 | 3.5 - 4.9 | [facility] | | | | | mmol/L | LABORATORY | | + + + + + + | Cl | 106 | 99 - 109 mmol/L | [facility] | | | | | | LABORATORY | | + + + + + + | CO2 | 24 | 23 - 32 mmol/L | [facility] | | | | | | LABORATORY | | + + + + + + | Anion Gap | 13 | 5 - 20 mmol/L | [facility] | | | | | | LABORATORY | | + + + + + + | Glucose | 188 (H) | 65 - 99 mg/dL | [facility] | | | | | | LABORATORY | | + + + + + + | BUN | 35 (H) | 8 - 25 mg/dL | [facility] | | | | | | LABORATORY | | + + + + + + | Creatinine | 1.85 (H) | 0.70 - 1.30 | [facility] | | | | | mg/dL | LABORATORY | | + + + + + + | BUN/Creatin | 19 | | [facility] | | | ine Ratio | | | LABORATORY | | + + + + + + | Calcium | 8.6 | 8.5 - 10.5 | [facility] | | | | | mg/dL | LABORATORY | | + + + + + + | Estimated | 37 (L)Comment: GFR <60: | >60 | [facility] | | | GFR | CHRONIC KIDNEY DISEASE, | mL/min/1.73m2 | LABORATORY | | | | IF FOUND OVER A 3 MONTH | | | | | | PERIOD.GFR <15: KIDNEY | | | | | | FAILURE.FOR | | | | | | AMERICANS, MULTIPLY THE | | | | | | CALCULATED GFR BY | | | | | | 1.210.This eGFR is | | | | | | calculated using the | | | | | | MDRD IDMS traceable | | | | | | equation.Testing | | | | | | performed at [facility] | | | | | | [facility];[place], [place] | | | | | | [address] | | | | + + + + + + + + | Specimen | + + | Blood | + + + + + + + | Performing | Address | City/State/Zipcode | Phone Number | | Organization | | | | + + + + + | [facility] | [address] | [place] [address] | [phone] | + + + + + POC Glucose (10/13/2019 4:22 PM PST) + + + + + + | Component | Value | Ref Range | Performed | Pathologist | | | | | At | Signature | + + + + + + | Glucose, | 174 (H)Comment: Testing | 65 - 99 mg/dL | [facility] | | | POC | performed at [facility];[address] | | LABORATORY | | | | [address];[place], [place] | | | | | | [address] | | | | + + + + + + + + | Specimen | + + | | + + + + + + + | Performing | Address | City/State/Zipcode | Phone Number | | Organization | | | | + + + + + | [facility] | [address] | [place] [address] | [phone] | + + + + + POC Glucose (10/13/2019 12:02 PM PST) + + + + + + | Component | Value | Ref Range | Performed | Pathologist | | | | | At | Signature | + + + + + + | Glucose, | 247 (H)Comment: Testing | 65 - 99 mg/dL | [facility] | | | POC | performed at [facility];[address] | | LABORATORY | | | | [address];[place] | | | | | | [address] | | | | + + + + + + + + | Specimen | + + | | + + + + + + + | Performing | Address | City/State/Zipcode | Phone Number | | Organization | | | | + + + + + | [facility] | [address] | [place] [address] | [phone] | + + + + + POC Glucose (10/13/2019 7:38 AM PST) + + + + + + | Component | Value | Ref Range | Performed | Pathologist | | | | | At | Signature | + + + + + + | Glucose, | 192 (H)Comment: Testing | 65 - 99 mg/dL | [facility] | | | POC | performed at [facility];[address] | | LABORATORY | | | | [address];[place] | | | | | | [address] | | | | + + + + + + + + | Specimen | + + | | + + + + + + + | Performing | Address | City/State/Zipcode | Phone Number | | Organization | | | | + + + + + | [facility] | [address] | [place] [address] | [phone] | + + + + + Protime INR (10/13/2019 5:15 AM PST) + + + + + + | Component | Value | Ref Range | Performed | Pathologist | | | | | At | Signature | + + + + + + | INR | 1.0Comment: REFERENCE | | [facility] | | | | RANGE:0.9 - 1.2 | | LABORATORY | | | | NON-ANTICOAGULATED2.0 | | | | | | - 3.0 ALL OTHER | | | | | | THERAPEUTIC | | | | | | INDICATIONS2.5 - 3.5 | | | | | | MECHANICAL HEART VALVES, | | | | | | RECURRENT OR SYSTEMIC | | | | | | EMBOLISMTesting | | | | | | performed at [facility];[address] | | | | | | [facility];[place] | | | | | | [address] | | | | + + + + + + + + | Specimen | + + | Blood | + + + + + + + | Performing | Address | City/State/Zipcode | Phone Number | | Organization | | | | + + + + + | [facility] | [address] | [place] [address] | [phone] | + + + + + CBC with Differential (10/13/2019 5:15 AM PST) + + + + + + | Component | Value | Ref Range | Performed | Pathologist | | | | | At | Signature | + + + + + + | WBC | 13.73 (H) | 3.80 - 11.00 | [facility] | | | | | K/uL | LABORATORY | | + + + + + + | RBC | 3.67 (L) | 4.20 - 5.70 | [facility] | | | | | M/uL | LABORATORY | | + + + + + + | Hemoglobin | 12.8 (L) | 13.2 - 17.0 | [facility] | | | | | g/dL | LABORATORY | | + + + + + + | Hematocrit | 38.0 (L) | 39.0 - 50.0 % | [facility] | | | | | | LABORATORY | | + + + + + + | MCV | 103.6 (H) | 80.0 - 100.0 fl | [facility] | | | | | | LABORATORY | | + + + + + + | MCH | 34.9 (H) | 27.0 - 34.0 pg | [facility] | | | | | | LABORATORY | | + + + + + + | MCHC | 33.7 | 32.0 - 35.5 | [facility] | | | | | g/dL | LABORATORY | | + + + + + + | RDW-SD | 58.6 (H) | 37 - 53 fl | [facility] | | | | | | LABORATORY | | + + + + + + | Platelet | 252 | 150 - 400 K/uL | [facility] | | | Count | | | LABORATORY | | + + + + + + | MPV | 10.5 | fl | [facility] | | | | | | LABORATORY | | + + + + + + | Diff Type | MANUAL | | [facility] | | | | | | LABORATORY | | + + + + + + | % nRBC | 1 (H) | 0 /100WBC | [facility] | | | | | | LABORATORY | | + + + + + + | % Segmented | 94 | % | [facility] | | | | | | LABORATORY | | | Neutrophils | | | | | + + + + + + | % | 4 | % | [facility] | | | Lymphocytes | | | LABORATORY | | + + + + + + | % Monocytes | 2 | % | [facility] | | | | | | LABORATORY | | + + + + + + | Neutrophils | 12.91 (H) | 1.90 - 7.40 | [facility] | | | , Absolute | | K/uL | LABORATORY | | + + + + + + | Absolute | 0.55 (L) | 1.00 - 3.90 | [facility] | | | Lymphocytes | | K/uL | LABORATORY | | + + + + + + | Absolute | 0.27 | 0.00 - 0.80 | [facility] | | | Monocytes | | K/uL | LABORATORY | | + + + + + + | RBC | RBC AND PLT MORPHOLOGY | | [facility] | | | Morphology | APPEAR NORMALComment: | | LABORATORY | | | | Testing performed at | | | | | | [facility], [address] [place] [address] | | | | | | [place] | | | | | | [address] | | | | + + + + + + + + | Specimen | + + | Blood | + + + + + + + | Performing | Address | City/State/Zipcode | Phone Number | | Organization | | | | + + + + + | [facility] | [address] | [place] [address] | [phone] | + + + + + Basic Metabolic Panel (10/13/2019 5:15 AM PST) + + + + + + | Component | Value | Ref Range | Performed | Pathologist | | | | | At | Signature | + + + + + + | Na | 138 | 135 - 145 | [facility] | | | | | mmol/L | LABORATORY | | + + + + + + | K | 5.3 (H)Comment: SPECIMEN | 3.5 - 4.9 | [facility] | | | | SLIGHTLY HEMOLYZED | mmol/L | LABORATORY | | + + + + + + | Cl | 108 | 99 - 109 mmol/L | [facility] | | | | | | LABORATORY | | + + + + + + | CO2 | 23 | 23 - 32 mmol/L | [facility] | | | | | | LABORATORY | | + + + + + + | Anion Gap | 12 | 5 - 20 mmol/L | [facility] | | | | | | LABORATORY | | + + + + + + | Glucose | 195 (H)Comment: SPECIMEN | 65 - 99 mg/dL | [facility] | | | | SLIGHTLY HEMOLYZED | | LABORATORY | | + + + + + + | BUN | 33 (H) | 8 - 25 mg/dL | [facility] | | | | | | LABORATORY | | + + + + + + | Creatinine | 1.7 (H)Comment: SPECIMEN | 0.70 - 1.30 | [facility] | | | | SLIGHTLY HEMOLYZED | mg/dL | LABORATORY | | + + + + + + | BUN/Creatin | 19 | | [facility] | | | ine Ratio | | | LABORATORY | | + + + + + + | Calcium | 8.2 (L) | 8.5 - 10.5 | [facility] | | | | | mg/dL | LABORATORY | | + + + + + + | Estimated | 40 (L)Comment: GFR <60: | >60 | [facility] | | | GFR | CHRONIC KIDNEY DISEASE, | mL/min/1.73m2 | LABORATORY | | | | IF FOUND OVER A 3 MONTH | | | | | | PERIOD.GFR <15: KIDNEY | | | | | | FAILURE.FOR | | | | | | AMERICANS, MULTIPLY THE | | | | | | CALCULATED GFR BY | | | | | | 1.210.This eGFR is | | | | | | calculated using the | | | | | | MDRD IDPA traceable | | | | | | equation.Testing | | | | | | performed at [facility], [address] | | | | | | [facility], | | | | | | [place] [address] | | | | + + + + + + + + | Specimen | + + | Blood | + + + + + + + | Performing | Address | City/State/Zipcode | Phone Number | | Organization | | | | + + + + + | [facility] | [address] | [place] [address] | [phone] | + + + + + POC Glucose (10/13/2019 4:45 AM PST) + + + + + + | Component | Value | Ref Range | Performed | Pathologist | | | | | At | Signature | + + + + + + | Glucose, | 199 (H)Comment: Testing | 65 - 99 mg/dL | [facility] | | | POC | performed at [facility];[address] | | LABORATORY | | | | [address];[place] | | | | | | [address] | | | | + + + + + + + + | Specimen | + + | | + + + + + + + | Performing | Address | City/State/Zipcode | Phone Number | | Organization | | | | + + + + + | [facility] | [address] | [place] [address] | [phone] | + + + + + POC Glucose (10/12/2019 8:29 PM PST) + + + + + + | Component | Value | Ref Range | Performed | Pathologist | | | | | At | Signature | + + + + + + | Glucose, | 253 (H)Comment: Testing | 65 - 99 mg/dL | [facility] | | | POC | performed at [facility];[address] | | LABORATORY | | | | [address];[place], [place] | | | | | | [address] | | | | + + + + + + + + | Specimen | + + | | + + + + + + + | Performing | Address | City/State/Zipcode | Phone Number | | Organization | | | | + + + + + | [facility] | [address] | [place] [address] | [phone] | + + + + + XR Femur Left 2+Vw (10/12/2019 7:20 PM PST) + + | Specimen | + + | | + + + + + | Impressions | Performed At | + + + | 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 | [facility] | | fracture Signed by: Iain Guadarrama, Jericho Balderrama Date/Time: | | | 10/12/2019 8:32 PM | | + + + + + + | Narrative | Performed At | + + + | LEFT FEMUR CLINICAL INFORMATION: Status post left femur | [facility] | | rodding. COMPARISON: XR FEMUR LEFT 1 VW (10/10/2019); | | | FINDINGS: Medullary rhonda approximating the left femur, in anatomic | | | alignment. Approximating the fracture at the left inter trochanteric | | | distribution of the left femur. The lesser trochanter remains | | | avulsed. Expected surgical changes the soft tissues Some bowel | | | superimposed over the lateral soft tissues which could simply be | | | due to patient's pannus | | + + + + + | Procedure Note | + + | Jose Luis, Rad Results In - 10/12/2019 8:36 PM PST | | LEFT FEMUR | | | | CLINICAL INFORMATION: | | Status post left femur rodding. | | | | COMPARISON: | | XR FEMUR LEFT 1 VW (10/10/2019); | | | | FINDINGS: | | Medullary rhonda approximating the left femur, in anatomic alignment. | | Approximating the fracture at the left inter trochanteric distribution | | of the left femur. The lesser trochanter remains avulsed. | | | | Expected surgical changes the soft tissues | | | | Some bowel superimposed over the lateral soft tissues which could | | simply be due to patient's pannus | | | | IMPRESSION: | | 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 | | fracture | | | | | | | | Signed by: Iain Guadarrama Timothy | | Sign Date/Time: 10/12/2019 8:32 PM | + + + +---------+ + + | Performing | Address | City/State/Zipcode | Phone Number | | Organization | | | | + +---------+ + + | [facility] | | | | + +---------+ + + POC Glucose (10/12/2019 4:35 PM PST) + + + + + + | Component | Value | Ref Range | Performed | Pathologist | | | | | At | Signature | + + + + + + | Glucose, | 174 (H)Comment: Testing | 65 - 99 mg/dL | [facility] | | | POC | performed at [facility];[address] | | LABORATORY | | | | [address];[place], [place] | | | | | | [address] | | | | + + + + + + + + | Specimen | + + | | + + + + + + + | Performing | Address | City/State/Zipcode | Phone Number | | Organization | | | | + + + + + | [facility] | [address] | [place] [address] | [phone] | + + + + + POC Glucose (10/12/2019 3:13 PM PST) + + + + + + | Component | Value | Ref Range | Performed | Pathologist | | | | | At | Signature | + + + + + + | Glucose, | 148 (H)Comment: Testing | 65 - 99 mg/dL | [facility] | | | POC | performed at [facility];[address] | | LABORATORY | | | | [address];[place], [place] | | | | | | [address] | | | | + + + + + + + + | Specimen | + + | | + + + + + + + | Performing | Address | City/State/Zipcode | Phone Number | | Organization | | | | + + + + + | [facility] | [address] | [place] [address] | [phone] | + + + + + FL Isabel (10/12/2019 2:55 PM PST) + + | Specimen | + + | | + + + + + | Impressions | Performed At | + + + | Intraoperative fluoroscopy. Signed by: Iain Sanz, | [facility] | | Bk Sign Date/Time: 10/12/2019 8:35 PM | | + + + + + + | Narrative | Performed At | + + + | FLUOROSCOPIC ASSISTED LEFT HIP CLINICAL INFORMATION: | [facility] | | Fracture fixation FINDINGS: Fluoro Time: of fluoroscopy was | | | utilized. Number of images: 6 Air Kerma: 25.33 mGy Six images | | | demonstrating long IM rhonda fixation of the intertrochanteric fracture | | | with a dynamic compression nail in the femoral head and neck. | | + + + + + | Procedure Note | + + | Quintin Amaya Results In - 10/12/2019 8:39 PM PST | | FLUOROSCOPIC ASSISTED LEFT HIP | | | | CLINICAL INFORMATION: | | Fracture fixation | | | | FINDINGS: | | Fluoro Time: of fluoroscopy was utilized. | | | | Number of images: 6 Air Kerma: 25.33 mGy | | | | Six images demonstrating long IM rhonda fixation of the intertrochanteric | | fracture with a dynamic compression nail in the femoral head and neck. | | | | IMPRESSION: | | Intraoperative fluoroscopy. | | | | | | | | | | Signed by: Iain Sanz Michael | | Sign Date/Time: 10/12/2019 8:35 PM | + + + +---------+ + + | Performing | Address | City/State/Zipcode | Phone Number | | Organization | | | | + +---------+ + + | [facility] | | | | + +---------+ + + POC Glucose (10/12/2019 11:44 AM PST) + + + + + + | Component | Value | Ref Range | Performed | Pathologist | | | | | At | Signature | + + + + + + | Glucose, | 126 (H)Comment: Testing | 65 - 99 mg/dL | [facility] | | | POC | performed at [facility];[address] | | LABORATORY | | | | [address];[place], [place] | | | | | | [address] | | | | + + + + + + + + | Specimen | + + | | + + + + + + + | Performing | Address | City/State/Zipcode | Phone Number | | Organization | | | | + + + + + | [facility] | [address] | [place] [address] | [phone] | + + + + + Culture, MRSA (10/12/2019 8:09 AM PST) + + + + + + | Component | Value | Ref Range | Performed | Pathologist | | | | | At | Signature | + + + + + + | RESULT | NO METHICILLIN RESISTANT | | [facility] | | | | STAPH AUREUS ISOLATED. | | LABORATORY | | + + + + + + | RESULT | Testing performed at | | [facility] | | | | [facility], [address] [facility] | | LABORATORY | | | | [facility], [place], [place] | | | | | | [id number]: Testing | | | | | | performed at [facility], [address] | | | | | | [facility], | | | | | | [place] [address] | | | | + + + + + + + + | Specimen | + + | Tissue - Both | | anterior nares (body | | structure) | + + + + + + + | Performing | Address | City/State/Zipcode | Phone Number | | Organization | | | | + + + + + | [facility] | [address] | [place] [address] | [phone] | + + + + + POC Glucose (10/12/2019 7:46 AM PST) + + + + + + | Component | Value | Ref Range | Performed | Pathologist | | | | | At | Signature | + + + + + + | Glucose, | 143 (H)Comment: Testing | 65 - 99 mg/dL | [facility] | | | POC | performed at [facility];[address] | | LABORATORY | | | | [address];[place] | | | | | | [address] | | | | + + + + + + + + | Specimen | + + | | + + + + + + + | Performing | Address | City/State/Zipcode | Phone Number | | Organization | | | | + + + + + | [facility] | [address] | [place] [address] | [phone] | + + + + + Basic Metabolic Panel (10/12/2019 4:12 AM PST) + + + + + + | Component | Value | Ref Range | Performed | Pathologist | | | | | At | Signature | + + + + + + | Na | 140 | 135 - 145 | [facility] | | | | | mmol/L | LABORATORY | | + + + + + + | K | 4.4 | 3.5 - 4.9 | [facility] | | | | | mmol/L | LABORATORY | | + + + + + + | Cl | 108 | 99 - 109 mmol/L | [facility] | | | | | | LABORATORY | | + + + + + + | CO2 | 25 | 23 - 32 mmol/L | [facility] | | | | | | LABORATORY | | + + + + + + | Anion Gap | 11 | 5 - 20 mmol/L | [facility] | | | | | | LABORATORY | | + + + + + + | Glucose | 135 (H) | 65 - 99 mg/dL | [facility] | | | | | | LABORATORY | | + + + + + + | BUN | 34 (H) | 8 - 25 mg/dL | [facility] | | | | | | LABORATORY | | + + + + + + | Creatinine | 1.7 (H) | 0.70 - 1.30 | [facility] | | | | | mg/dL | LABORATORY | | + + + + + + | BUN/Creatin | 20 | | [facility] | | | ine Ratio | | | LABORATORY | | + + + + + + | Calcium | 8.7 | 8.5 - 10.5 | [facility] | | | | mg/dL | LABORATORY | | + + + + + + | Estimated | 40 (L)Comment: GFR <60: | >60 | [facility] | | | GFR | CHRONIC KIDNEY DISEASE, | mL/min/1.73m2 | LABORATORY | | | | IF FOUND OVER A 3 MONTH | | | | | | PERIOD.GFR <15: KIDNEY | | | | | | FAILURE.FOR | | | | | | AMERICANS, MULTIPLY THE | | | | | | CALCULATED GFR BY | | | | | | 1.210.This eGFR is | | | | | | calculated using the | | | | | | MDRD IDPA traceable | | | | | | equation.Testing | | | | | | performed at [facility], [address] | | | | | | [facility], | | | | | | [place] [address] | | | | + + + + + + + + | Specimen | + + | Blood | + + + + + + + | Performing | Address | City/State/Zipcode | Phone Number | | Organization | | | | + + + + + | [facility] | [address] | [place] [address] | [phone] | + + + + + Protime INR (10/12/2019 4:12 AM PST) + + + + + + | Component | Value | Ref Range | Performed | Pathologist | | | | | At | Signature | + + + + + + | INR | 1.1Comment: REFERENCE | | [facility] | | | | RANGE:0.9 - 1.2 | | LABORATORY | | | | NON-ANTICOAGULATED2.0 | | | | | | - 3.0 ALL OTHER | | | | | | THERAPEUTIC | | | | | | INDICATIONS2.5 - 3.5 | | | | | | MECHANICAL HEART VALVES, | | | | | | RECURRENT OR SYSTEMIC | | | | | | EMBOLISMTesting | | | | | | performed [place] [facility] [place];[place] | | | | | | [id number] | | | | + + + + + + + + | Specimen | + + | Blood | + + + + + + + | Performing | Address | City/State/Zipcode | Phone Number | | Organization | | | | + + + + + | [facility] | [address] | [place] [address] | [phone] | + + + + + CBC with Differential (10/12/2019 4:12 AM PST) + + + + + + | Component | Value | Ref Range | Performed | Pathologist | | | | | At | Signature | + + + + + + | WBC | 14.62 (H) | 3.80 - 11.00 | [facility] | | | | | K/uL | LABORATORY | | + + + + + + | RBC | 3.91 (L) | 4.20 - 5.70 | [facility] | | | | | M/uL | LABORATORY | | + + + + + + | Hemoglobin | 13.4 | 13.2 - 17.0 | [facility] | | | | | g/dL | LABORATORY | | + + + + + + | Hematocrit | 40.9 | 39.0 - 50.0 % | [facility] | | | | | | LABORATORY | | + + + + + + | MCV | 104.5 (H) | 80.0 - 100.0 fl | [facility] | | | | | | LABORATORY | | + + + + + + | MCH | 34.2 (H) | 27.0 - 34.0 pg | [facility] | | | | | | LABORATORY | | + + + + + + | MCHC | 32.8 | 32.0 - 35.5 | [facility] | | | | | g/dL | LABORATORY | | + + + + + + | RDW-SD | 56.4 (H) | 37 - 53 fl | [facility] | | | | | | LABORATORY | | + + + + + + | Platelet | 232 | 150 - 400 K/uL | [facility] | | | Count | | | LABORATORY | | + + + + + + | MPV | 9.5 | fl | [facility] | | | | | | LABORATORY | | + + + + + + | Diff Type | MANUAL | | [facility] | | | | | | LABORATORY | | + + + + + + | % Segmented | 67 | % | [facility] | | | | | | LABORATORY | | | Neutrophils | | | | | + + + + + + | % | 18 | % | [facility] | | | Lymphocytes | | | LABORATORY | | + + + + + + | % Monocytes | 8 | % | [facility] | | | | | | LABORATORY | | + + + + + + | Eosinophils | 7 | % | [facility] | | | % | | | LABORATORY | | + + + + + + | Neutrophils | 9.80 (H) | 1.90 - 7.40 | [facility] | | | , Absolute | | K/uL | LABORATORY | | + + + + + + | Absolute | 2.63 | 1.00 - 3.90 | [facility] | | | Lymphocytes | | K/uL | LABORATORY | | + + + + + + | Absolute | 1.17 (H) | 0.00 - 0.80 | [facility] | | | Monocytes | | K/uL | LABORATORY | | + + + + + + | Eosinophils | 1.02 (H) | 0.00 - 0.50 | [facility] | | | , Absolute | | K/uL | LABORATORY | | + + + + + + | RBC | RBC AND PLT MORPHOLOGY | | [facility] | | | Morphology | APPEAR NORMALComment: | | LABORATORY | | | | Testing performed at | | | | | | [facility], [address] | | | | | | [place] | | | | | | [id number] | | | | + + + + + + + + | Specimen | + + | Blood | + + + + + + + | Performing | Address | City/State/Zipcode | Phone Number | | Organization | | | | + + + + + | [facility] | [address] | [place] [address] | [phone] | + + + + + POC Glucose (10/11/2019 8:46 PM PST) + + + + + + | Component | Value | Ref Range | Performed | Pathologist | | | | | At | Signature | + + + + + + | Glucose, | 171 (H)Comment: Testing | 65 - 99 mg/dL | [facility] | | | POC | performed at [facility] | | LABORATORY | | | | [address];[place], [place] | | | | | | [address] | | | | + + + + + + + + | Specimen | + + | | + + + + + + + | Performing | Address | City/State/Zipcode | Phone Number | | Organization | | | | + + + + + | [facility] | [address] | [place] [address] | [phone] | + + + + + POC Glucose (10/11/2019 5:04 PM PST) + + + + + + | Component | Value | Ref Range | Performed | Pathologist | | | | | At | Signature | + + + + + + | Glucose, | 161 (H)Comment: Testing | 65 - 99 mg/dL | [facility] | | | POC | performed at [facility] | | LABORATORY | | | | [address];[place], [place] | | | | | | [address] | | | | + + + + + + + + | Specimen | + + | | + + + + + + + | Performing | Address | City/State/Zipcode | Phone Number | | Organization | | | | + + + + + | [facility] | [address] | [place] [address] | [phone] | + + + + + POC Glucose (10/11/2019 11:57 AM PST) + + + + + + | Component | Value | Ref Range | Performed | Pathologist | | | | | At | Signature | + + + + + + | Glucose, | 129 (H)Comment: Testing | 65 - 99 mg/dL | [facility] | | | POC | performed at [facility] | | LABORATORY | | | | [address];[place] | | | | | | [address] | | | | + + + + + + + + | Specimen | + + | | + + + + + + + | Performing | Address | City/State/Zipcode | Phone Number | | Organization | | | | + + + + + | [facility] | [address] | [place] [address] | [phone] | + + + + + POC Glucose (10/11/2019 8:13 AM PST) + + + + + + | Component | Value | Ref Range | Performed | Pathologist | | | | | At | Signature | + + + + + + | Glucose, | 128 (H)Comment: Testing | 65 - 99 mg/dL | [facility] | | | POC | performed at [facility] | | LABORATORY | | | | [address];[place], [place] | | | | | | [address] | | | | + + + + + + + + | Specimen | + + | | + + + + + + + | Performing | Address | City/State/Zipcode | Phone Number | | Organization | | | | + + + + + | [facility] | [address] | [place] [address] | [phone] | + + + + + Basic Metabolic Panel (10/11/2019 7:26 AM PST) + + + + + + | Component | Value | Ref Range | Performed | Pathologist | | | | | At | Signature | + + + + + + | Na | 139 | 135 - 145 | [facility] | | | | | mmol/L | LABORATORY | | + + + + + + | K | 4.6 | 3.5 - 4.9 | [facility] | | | | | mmol/L | LABORATORY | | + + + + + + | Cl | 105 | 99 - 109 mmol/L | [facility] | | | | | | LABORATORY | | + + + + + + | CO2 | 26 | 23 - 32 mmol/L | [facility] | | | | | | LABORATORY | | + + + + + + | Anion Gap | 13 | 5 - 20 mmol/L | [facility] | | | | | | LABORATORY | | + + + + + + | Glucose | 136 (H) | 65 - 99 mg/dL | [facility] | | | | | | LABORATORY | | + + + + + + | BUN | 30 (H) | 8 - 25 mg/dL | [facility] | | | | | | LABORATORY | | + + + + + + | Creatinine | 1.72 (H) | 0.70 - 1.30 | [facility] | | | | | mg/dL | LABORATORY | | + + + + + + | BUN/Creatin | 17 | | [facility] | | | ine Ratio | | | LABORATORY | | + + + + + + | Calcium | 8.9 | 8.5 - 10.5 | [facility] | | | | | mg/dL | LABORATORY | | + + + + + + | Estimated | 40 (L)Comment: GFR <60: | >60 | [facility] | | | GFR | CHRONIC KIDNEY DISEASE, | mL/min/1.73m2 | LABORATORY | | | | IF FOUND OVER A 3 MONTH | | | | | | PERIOD.GFR <15: KIDNEY | | | | | | FAILURE.FOR | | | | | | AMERICANS, MULTIPLY THE | | | | | | CALCULATED GFR BY | | | | | | 1.210.This eGFR is | | | | | | calculated using the | | | | | | MDRD [facility] traceable | | | | | | equation.Testing | | | | | | performed at [facility];[address] | | | | | | [address];[place], [place] | | | | | | [address] | | | | + + + + + + + + | Specimen | + + | Blood | + + + + + + + | Performing | Address | City/State/Zipcode | Phone Number | | Organization | | | | + + + + + | [facility] | [address] | [place] [address] | [phone] | + + + + + Protime INR (10/11/2019 5:23 AM PST) + + + + + + | Component | Value | Ref Range | Performed | Pathologist | | | | | At | Signature | + + + + + + | INR | 1.2Comment: REFERENCE | | [facility] | | | | RANGE:0.9 - 1.2 | | LABORATORY | | | | NON-ANTICOAGULATED2.0 | | | | | | - 3.0 ALL OTHER | | | | | | THERAPEUTIC | | | | | | INDICATIONS2.5 - 3.5 | | | | | | MECHANICAL HEART VALVES, | | | | | | RECURRENT OR SYSTEMIC | | | | | | EMBOLISMTesting | | | | | | performed at [facility] | | | | | | [address] [facility];[place], [place] | | | | | | [address] | | | | + + + + + + + + | Specimen | + + | Blood | + + + + + + + | Performing | Address | City/State/Zipcode | Phone Number | | Organization | | | | + + + + + | [facility] | [address] | [place] [address] | [phone] | + + + + + CBC with Differential (10/11/2019 5:23 AM PST) + + + + + + | Component | Value | Ref Range | Performed | Pathologist | | | | | At | Signature | + + + + + + | WBC | 14.09 (H) | 3.80 - 11.00 | [facility] | | | | | K/uL | LABORATORY | | + + + + + + | RBC | 3.88 (L) | 4.20 - 5.70 | [facility] | | | | | M/uL | LABORATORY | | + + + + + + | Hemoglobin | 13.4 | 13.2 - 17.0 | [facility] | | | | | g/dL | LABORATORY | | + + + + + + | Hematocrit | 40.0 | 39.0 - 50.0 % | [facility] | | | | | | LABORATORY | | + + + + + + | MCV | 103.0 (H) | 80.0 - 100.0 fl | [facility] | | | | | | LABORATORY | | + + + + + + | MCH | 34.6 (H) | 27.0 - 34.0 pg | [facility] | | | | | | LABORATORY | | + + + + + + | MCHC | 33.6 | 32.0 - 35.5 | [facility] | | | | | g/dL | LABORATORY | | + + + + + + | RDW-SD | 56.9 (H) | 37 - 53 fl | [facility] | | | | | | LABORATORY | | + + + + + + | Platelet | 228 | 150 - 400 K/uL | [facility] | | | Count | | | LABORATORY | | + + + + + + | MPV | 10.1 | fl | [facility] | | | | | | LABORATORY | | + + + + + + | Diff Type | AUTOMATED | | [facility] | | | | | | LABORATORY | | + + + + + + | % | 69.47 | % | [facility] | | | Neutrophils | | | LABORATORY | | + + + + + + | % | 16.50 | % | [facility] | | | Lymphocytes | | | LABORATORY | | + + + + + + | Monocyte % | 9.51 | % | [facility] | | | | | | LABORATORY | | + + + + + + | Eosinophils | 3.95 | % | [facility] | | | % | | | LABORATORY | | + + + + + + | Basophils % | 0.57 | % | [facility] | | | | | | LABORATORY | | + + + + + + | Neutrophils | 9.79 (H) | 1.90 - 7.40 | [facility] | | | , Absolute | | K/uL | LABORATORY | | + + + + + + | Absolute | 2.33 | 1.00 - 3.90 | [facility] | | | Lymphocytes | | K/uL | LABORATORY | | + + + + + + | Absolute | 1.34 (H) | 0.00 - 0.80 | [facility] | | | Monocytes | | K/uL | LABORATORY | | + + + + + + | Eosinophils | 0.56 (H) | 0.00 - 0.50 | [facility] | | | , Absolute | | K/uL | LABORATORY | | + + + + + + | Basophils, | 0.08Comment: Testing | 0.00 - 0.10 | [facility] | | | Absolute | performed at [facility], [address] | K/uL | LABORATORY | | | | [address], | | | | | | [place] [address] | | | | + + + + + + + + | Specimen | + + | Blood | + + + + + + + | Performing | Address | City/State/Zipcode | Phone Number | | Organization | | | | + + + + + | [facility] | [address] | [place] [address] | [phone] | + + + + + PTT (10/11/2019 5:23 AM PST) + + + + + + | Component | Value | Ref Range | Performed | Pathologist | | | | | At | Signature | + + + + + + | PTT | 38 (H)Comment: Testing | 23 - 32 seconds | [facility] | | | | performed at [facility] | | LABORATORY | | | | [address];[place] | | | | | | [address] | | | | + + + + + + + + | Specimen | + + | Blood | + + + + + + + | Performing | Address | City/State/Zipcode | Phone Number | | Organization | | | | + + + + + | [facility] | [address] | [place] [address] | [phone] | + + + + + ECG 12 lead (10/11/2019 4:41 AM PST) + + + + + + | Component | Value | Ref Range | Performed | Pathologist | | | | | At | Signature | + + + + + + | VENTRICULAR | 74 | BPM | [facility] | | | RATE EKG | | | | | + + + + + + | ATRIAL RATE | 258 | BPM | [facility] | | + + + + + + | QRS | 98 | ms | [facility] | | | DURATION | | | | | + + + + + + | Q-T | 402 | ms | [facility] | | | INTERVAL | | | | | + + + + + + | Q-T | 446 | ms | [facility] | | | INTERVAL | | | | | | (CORRECTED) | | | | | + + + + + + | QRS AXIS | 53 | degrees | [facility] | | + + + + + + | T AXIS | -51 | degrees | [facility] | | + + + + + + | INTERPRETAT | Atrial | | [facility] | | | ION TEXT | fibrillationNonspecific | | | | | | ST and T wave | | | | | | abnormalityAbnormal | | | | | | ECGWhen compared with | | | | | | ECG of 10-OCT-2019 | | | | | | 05:04,Ventricular rate | | | | | | has decreased by 20 | | | | | | bpm.Confirmed by LOUISE | | | | | | OVI BARAHONA ([id number]) on | | | | | | 10/11/2019 8:29:38 AM | | | | + + [...] | + +---------+ + + POC Glucose (10/11/2019 4:08 AM PST) + + + + + + | Component | Value | Ref Range | Performed | Pathologist | | | | | At | Signature | + + + + + + | Glucose, | 124 (H)Comment: Testing | 65 - 99 mg/dL | [facility] | | | POC | performed at [facility];[address] | | LABORATORY | | | | [address];[place], [place] | | | | | | [address] | | | | + + + + + + + + | Specimen | + + | | + + + + + + + | Performing | Address | City/State/Zipcode | Phone Number | | Organization | | | | + + + + + | [facility] | [address] | [place] [address] | [phone] | + + + + + Basic Metabolic Panel (10/11/2019 12:46 AM PST) + + + + + + | Component | Value | Ref Range | Performed | Pathologist | | | | | At | Signature | + + + + + + | Na | 138 | 135 - 145 | [facility] | | | | | mmol/L | LABORATORY | | + + + + + + | K | 4.9 | 3.5 - 4.9 | [facility] | | | | | mmol/L | LABORATORY | | + + + + + + | Cl | 102 | 99 - 109 mmol/L | [facility] | | | | | | LABORATORY | | + + + + + + | CO2 | 28 | 23 - 32 mmol/L | [facility] | | | | | | LABORATORY | | + + + + + + | Anion Gap | 13 | 5 - 20 mmol/L | [facility] | | | | | | LABORATORY | | + + + + + + | Glucose | 164 (H) | 65 - 99 mg/dL | [facility] | | | | | | LABORATORY | | + + + + + + | BUN | 32 (H) | 8 - 25 mg/dL | [facility] | | | | | | LABORATORY | | + + + + + + | Creatinine | 1.84 (H) | 0.70 - 1.30 | [facility] | | | | | mg/dL | LABORATORY | | + + + + + + | BUN/Creatin | 17 | | [facility] | | | ine Ratio | | | LABORATORY | | + + + + + + | Calcium | 9.4 | 8.5 - 10.5 | [facility] | | | | | mg/dL | LABORATORY | | + + + + + + | Estimated | 37 (L)Comment: GFR <60: | >60 | [facility] | | | GFR | CHRONIC KIDNEY DISEASE, | mL/min/1.73m2 | LABORATORY | | | | IF FOUND OVER A 3 MONTH | | | | | | PERIOD.GFR <15: KIDNEY | | | | | | FAILURE.FOR | | | | | | AMERICANS, MULTIPLY THE | | | | | | CALCULATED GFR BY | | | | | | 1.210.This eGFR is | | | | | | calculated using the | | | | | | MDRD [facility] traceable | | | | | | equation.Testing | | | | | | performed at [facility] | | | | | | [facility];[place], [place] | | | | | | [address] | | | | + + + + + + + + | Specimen | + + | Blood | + + + + + + + | Performing | Address | City/State/Zipcode | Phone Number | | Organization | | | | + + + + + | [facility] | [address] | [place] [address] | [phone] | + + + + + POC Glucose (10/10/2019 8:44 PM PST) + + + + + + | Component | Value | Ref Range | Performed | Pathologist | | | | | At | Signature | + + + + + + | Glucose, | 204 (H)Comment: Testing | 65 - 99 mg/dL | [facility] | | | POC | performed at [facility];[address] | | LABORATORY | | | | [address];[place] | | | | | | [address] | | | | + + + + + + + + | Specimen | + + | | + + + + + + + | Performing | Address | City/State/Zipcode | Phone Number | | Organization | | | | + + + + + | [facility] | [address] | [place] [address] | [phone] | + + + + + Basic Metabolic Panel (10/10/2019 6:59 PM PST) + + + + + + | Component | Value | Ref Range | Performed | Pathologist | | | | | At | Signature | + + + + + + | Na | 136 | 135 - 145 | [facility] | | | | | mmol/L | LABORATORY | | + + + + + + | K | 5.0 (H) | 3.5 - 4.9 | [facility] | | | | | mmol/L | LABORATORY | | + + + + + + | Cl | 101 | 99 - 109 mmol/L | [facility] | | | | | | LABORATORY | | + + + + + + | CO2 | 28 | 23 - 32 mmol/L | [facility] | | | | | | LABORATORY | | + + + + + + | Anion Gap | 12 | 5 - 20 mmol/L | [facility] | | | | | | LABORATORY | | + + + + + + | Glucose | 197 (H) | 65 - 99 mg/dL | [facility] | | | | | | LABORATORY | | + + + + + + | BUN | 33 (H) | 8 - 25 mg/dL | [facility] | | | | | | LABORATORY | | + + + + + + | Creatinine | 1.83 (H) | 0.70 - 1.30 | [facility] | | | | | mg/dL | LABORATORY | | + + + + + + | BUN/Creatin | 18 | | [facility] | | | ine Ratio | | | LABORATORY | | + + + + + + | Calcium | 9.4 | 8.5 - 10.5 | [facility] | | | | | mg/dL | LABORATORY | | + + + + + + | Estimated | 37 (L)Comment: GFR <60: | >60 | [facility] | | | GFR | CHRONIC KIDNEY DISEASE, | mL/min/1.73m2 | LABORATORY | | | | IF FOUND OVER A 3 MONTH | | | | | | PERIOD.GFR <15: KIDNEY | | | | | | FAILURE.FOR | | | | | | AMERICANS, MULTIPLY THE | | | | | | CALCULATED GFR BY | | | | | | 1.210.This eGFR is | | | | | | calculated using the | | | | | | MDRD [facility] traceable | | | | | | equation.Testing | | | | | | performed at [facility] | | | | | | [facility];[place], [place] | | | | | | [address] | | | | + + + + + + + + | Specimen | + + | Blood | + + + + + + + | Performing | Address | City/State/Zipcode | Phone Number | | Organization | | | | + + + + + | [facility] | [address] | [place] [address] | [phone] | + + + + + POC Glucose (10/10/2019 5:31 PM PST) + + + + + + | Component | Value | Ref Range | Performed | Pathologist | | | | | At | Signature | + + + + + + | Glucose, | 180 (H)Comment: Testing | 65 - 99 mg/dL | [facility] | | | POC | performed at [facility];[address] | | LABORATORY | | | | [address];[place], [place] | | | | | | [address] | | | | + + + + + + + + | Specimen | + + | | + + + + + + + | Performing | Address | City/State/Zipcode | Phone Number | | Organization | | | | + + + + + | [facility] | [address] | [place] [address] | [phone] | + + + + + POC Glucose (10/10/2019 4:06 PM PST) + + + + + + | Component | Value | Ref Range | Performed | Pathologist | | | | | At | Signature | + + + + + + | Glucose, | 241 (H)Comment: Testing | 65 - 99 mg/dL | [facility] | | | POC | performed at [facility];[address] | | LABORATORY | | | | [address];[place] | | | | | | [address] | | | | + + + + + + + + | Specimen | + + | | + + + + + + + | Performing | Address | City/State/Zipcode | Phone Number | | Organization | | | | + + + + + | [facility] | [address] | [place] [address] | [phone] | + + + + + Basic Metabolic Panel (10/10/2019 12:50 PM PST) + + + + + + | Component | Value | Ref Range | Performed | Pathologist | | | | | At | Signature | + + + + + + | Na | 136 | 135 - 145 | [facility] | | | | | mmol/L | LABORATORY | | + + + + + + | K | 4.9 | 3.5 - 4.9 | [facility] | | | | | mmol/L | LABORATORY | | + + + + + + | Cl | 102 | 99 - 109 mmol/L | [facility] | | | | | | LABORATORY | | + + + + + + | CO2 | 26 | 23 - 32 mmol/L | [facility] | | | | | | LABORATORY | | + + + + + + | Anion Gap | 13 | 5 - 20 mmol/L | [facility] | | | | | | LABORATORY | | + + + + + + | Glucose | 241 (H) | 65 - 99 mg/dL | [facility] | | | | | | LABORATORY | | + + + + + + | BUN | 35 (H) | 8 - 25 mg/dL | [facility] | | | | | | LABORATORY | | + + + + + + | Creatinine | 1.82 (H) | 0.70 - 1.30 | [facility] | | | | | mg/dL | LABORATORY | | + + + + + + | BUN/Creatin | 19 | | [facility] | | | ine Ratio | | | LABORATORY | | + + + + + + | Calcium | 9.2 | 8.5 - 10.5 | [facility] | | | | | mg/dL | LABORATORY | | + + + + + + | Estimated | 37 (L)Comment: GFR <60: | >60 | [facility] | | | GFR | CHRONIC KIDNEY DISEASE, | mL/min/1.73m2 | LABORATORY | | | | IF FOUND OVER A 3 MONTH | | | | | | PERIOD.GFR <15: KIDNEY | | | | | | FAILURE.FOR | | | | | | AMERICANS, MULTIPLY THE | | | | | | CALCULATED GFR BY | | | | | | 1.210.This eGFR is | | | | | | calculated using the | | | | | | MDRD [facility] traceable | | | | | | equation.Testing | | | | | | performed at [facility];[address] | | | | | | [address] [facility];[place], [place] | | | | | | [address] | | | | + + + + + + + + | Specimen | + + | Blood | + + + + + + + | Performing | Address | City/State/Zipcode | Phone Number | | Organization | | | | + + + + + | [facility] | [address] [facility] | [place] [address] | [phone] | + + + + + POC Glucose (10/10/2019 11:54 AM PST) + + + + + + | Component | Value | Ref Range | Performed | Pathologist | | | | | At | Signature | + + + + + + | Glucose, | 213 (H)Comment: Testing | 65 - 99 mg/dL | [facility] | | | POC | performed at [facility];[address] | | LABORATORY | | | | [address];[place] | | | | | | [address] | | | | + + + + + + + + | Specimen | + + | | + + + + + + + | Performing | Address | City/State/Zipcode | Phone Number | | Organization | | | | + + + + + | [facility] | [address] | [place] [address] | [phone] | + + + + + Basic Metabolic Panel (10/10/2019 8:56 AM PST) + + + + + + | Component | Value | Ref Range | Performed | Pathologist | | | | | At | Signature | + + + + + + | Na | 138 | 135 - 145 | [facility] | | | | | mmol/L | LABORATORY | | + + + + + + | K | 5.5 (H) | 3.5 - 4.9 | [facility] | | | | | mmol/L | LABORATORY | | + + + + + + | Cl | 102 | 99 - 109 mmol/L | [facility] | | | | | | LABORATORY | | + + + + + + | CO2 | 26 | 23 - 32 mmol/L | [facility] | | | | | | LABORATORY | | + + + + + + | Anion Gap | 16 | 5 - 20 mmol/L | [facility] | | | | | | LABORATORY | | + + + + + + | Glucose | 157 (H) | 65 - 99 mg/dL | [facility] | | | | | | LABORATORY | | + + + + + + | BUN | 36 (H) | 8 - 25 mg/dL | [facility] | | | | | | LABORATORY | | + + + + + + | Creatinine | 1.89 (H) | 0.70 - 1.30 | [facility] | | | | | mg/dL | LABORATORY | | + + + + + + | BUN/Creatin | 19 | | [facility] | | | ine Ratio | | | LABORATORY | | + + + + + + | Calcium | 9.8 | 8.5 - 10.5 | [facility] | | | | | mg/dL | LABORATORY | | + + + + + + | Estimated | 36 (L)Comment: GFR <60: | >60 | [facility] | | | GFR | CHRONIC KIDNEY DISEASE, | mL/min/1.73m2 | LABORATORY | | | | IF FOUND OVER A 3 MONTH | | | | | | PERIOD.GFR <15: KIDNEY | | | | | | FAILURE.FOR | | | | | | AMERICANS, MULTIPLY THE | | | | | | CALCULATED GFR BY | | | | | | 1.210.This eGFR is | | | | | | calculated using the | | | | | | [facility]D [facility] traceable | | | | | | equation.Testing | | | | | | performed at [facility];[address] | | | | | | [facility];[place], [place] | | | | | | [address] | | | | + + + + + + + + | Specimen | + + | Blood | + + + + + + + | Performing | Address | City/State/Zipcode | Phone Number | | Organization | | | | + + + + + | [facility] | [address] | [place] [address] | [phone] | + + + + + XR Femur Left 1 Vw (10/10/2019 8:20 AM PST) + + | Specimen | + + | | + + + + + | Impressions | Performed At | + + + | Left intertrochanteric fracture with apex lateral angulation and | [facility] | | mild displacement. Signed by: Iain Bryan, Ferny Sign | | | Date/Time: 10/10/2019 9:25 AM | | + + + + + + | Narrative | Performed At | + + + | LEFT FEMUR ONE VIEW LIMITED CLINICAL INFORMATION: Left hip | [facility] | | fracture. COMPARISON: None FINDINGS: Left intertrochanteric | | | fracture with apex lateral angulation and mild displacement. | | | Normal alignment at the left hip joint. Normal alignment at the knee | | | joint. Overlying bowel gas pattern is nonspecific. | | + + + + + | Procedure Note | + + | Quintin Amaya Results In - 10/10/2019 9:28 AM PST | | LEFT FEMUR ONE VIEW LIMITED | | | | CLINICAL INFORMATION: | | Left hip fracture. | | | | COMPARISON: | | None | | | | FINDINGS: | | Left intertrochanteric fracture with apex lateral angulation and mild | | displacement. | | | | Normal alignment at the left hip joint. Normal alignment at the knee | | joint. | | | | Overlying bowel gas pattern is nonspecific. | | | | IMPRESSION: | | Left intertrochanteric fracture with apex lateral angulation and mild | | displacement. | | | | | | | | Signed by: Iain Bryan, Ferny | | Sign Date/Time: 10/10/2019 9:25 AM | + + + +---------+ + + | Performing | Address | City/State/Zipcode | Phone Number | | Organization | | | | + +---------+ + + | [facility] | | | | + +---------+ + + XR Pelvis 1 or 2 Vw (10/10/2019 8:18 AM PST) + + | Specimen | + + | | + + + + + | Impressions | Performed At | + + + | Left proximal femoral intertrochanteric fracture. Signed | [facility] | | by: Iain Bryan, Ferny Sign Date/Time: 10/10/2019 10:01 AM | | + + + + + + | Narrative | Performed At | + + + | PELVIS ONE OR TWO VIEWS CLINICAL INFORMATION: Left hip | [facility] | | fracture. COMPARISON: None FINDINGS: Left proximal femoral | | | intertrochanteric fracture. Mild degeneration of the right hip | | | joint. No acute fracture of the pelvic bones. Overlying bowel | | | gas pattern is nonspecific. | | + + + + + | Procedure Note | + + | Quintin Amaya Results In 10/10/2019 10:04 AM PST | | PELVIS ONE OR TWO VIEWS | | | | CLINICAL INFORMATION: | | Left hip fracture. | | | | COMPARISON: | | None | | | | FINDINGS: | | Left proximal femoral intertrochanteric fracture. | | | | Mild degeneration of the right hip joint. No acute fracture of the | | pelvic bones. | | | | Overlying bowel gas pattern is nonspecific. | | | | IMPRESSION: | | Left proximal femoral intertrochanteric fracture. | | | | | | | | Signed by: Iain Bryan Isaac | | Sign Date/Time: 10/10/2019 10:01 AM | + + + +---------+ + + | Performing | Address | City/State/Zipcode | Phone Number | | Organization | | | | + +---------+ + + | [facility] | | | | + +---------+ + + POC Glucose (10/10/2019 7:49 AM PST) + + + + + + | Component | Value | Ref Range | Performed | Pathologist | | | | | At | Signature | + + + + + + | Glucose, | 145 (H)Comment: Testing | 65 - 99 mg/dL | [facility] | | | POC | [place] [facility] [id number] | [facility] | | | | [address];[place], [place] | | | | | | [id number] | | | | + + + + + + + + | Specimen | + + | | + + + + + + + | Performing | Address | City/State/Zipcode | Phone Number | | Organization | | | | + + + + + | [facility] | [address] | [place] [address] | [phone] | + + + + + Basic Metabolic Panel (10/10/2019 6:08 AM PST) + + + + + + | Component | Value | Ref Range | Performed | Pathologist | | | | | At | Signature | + + + + + + | Na | 138 | 135 - 145 | [facility] | | | | | mmol/L | LABORATORY | | + + + + + + | K | 5.9 (H) | 3.5 - 4.9 | [facility] | | | | | mmol/L | LABORATORY | | + + + + + + | Cl | 102 | 99 - 109 mmol/L | [facility] | | | | | | LABORATORY | | + + + + + + | CO2 | 27 | 23 - 32 mmol/L | [facility] | | | | | | LABORATORY | | + + + + + + | Anion Gap | 15 | 5 - 20 mmol/L | [facility] | | | | | | LABORATORY | | + + + + + + | Glucose | 182 (H) | 65 - 99 mg/dL | [facility] | | | | | | LABORATORY | | + + + + + + | BUN | 37 (H) | 8 - 25 mg/dL | [facility] | | | | | | LABORATORY | | + + + + + + | Creatinine | 1.89 (H) | 0.70 - 1.30 | [facility] | | | | | mg/dL | LABORATORY | | + + + + + + | BUN/Creatin | 20 | | [facility] | | | ine Ratio | | | LABORATORY | | + + + + + + | Calcium | 9.8 | 8.5 - 10.5 | [facility] | | | | | mg/dL | LABORATORY | | + + + + + + | Estimated | 36 (L)Comment: GFR <60: | >60 | [facility] | | | GFR | CHRONIC KIDNEY DISEASE, | mL/min/1.73m2 | LABORATORY | | | | IF FOUND OVER A 3 MONTH | | | | | | PERIOD.GFR <15: KIDNEY | | | | | | FAILURE.FOR | | | | | | AMERICANS, MULTIPLY THE | | | | | | CALCULATED GFR BY | | | | | | 1.210.This eGFR is | | | | | | calculated using the | | | | | | MDRD IDMS traceable | | | | | | equation.Testing | | | | | | performed at [facility] | | | | | | [address];[place], [place] | | | | | | [address] | | | | + + + + + + + + | Specimen | + + | Blood | + + + + + + + | Performing | Address | City/State/Zipcode | Phone Number | | Organization | | | | + + + + + | [facility] | [address] | [place] [address] | [phone] | + + + + + ECG 12 lead (10/10/2019 5:04 AM PST) + + + + + + | Component | Value | Ref Range | Performed | Pathologist | | | | | At | Signature | + + + + + + | VENTRICULAR | 94 | BPM | [facility] | | | RATE EKG | | | | | + + + + + + | ATRIAL RATE | 104 | BPM | [facility] | | + + + + + + | QRS | 98 | ms | [facility] | | | DURATION | | | | | + + + + + + | Q-T | 360 | ms | [facility] | | | INTERVAL | | | | | + + + + + + | Q-T | 450 | ms | [facility] | | | INTERVAL | | | | | | (CORRECTED) | | | | | + + + + + + | QRS AXIS | 85 | degrees | [facility] | | + + + + + + | T AXIS | -18 | degrees | [facility] | | + + + + + + | INTERPRETAT | Suspect unspecified | | [facility] | | | ION TEXT | pacemaker failure Versus | | | | | | artifactAtrial | | | | | | fibrillationNonspecific | | | | | | ST abnormalityAbnormal | | | | | | QRS-T angle, consider | | | | | | primary T wave | | | | | | abnormalityAbnormal | | | | | | ECGNo previous ECGs | | | | | | availableConfirmed by | | | | | | OVI GIL MD ([id number]) | | | | | | on 10/10/2019 8:57:40 AM | | | | + + [...] | | | + +---------+ + + Magnesium (10/10/2019 4:04 AM PST) + + + + + + | Component | Value | Ref Range | Performed | Pathologist | | | | | At | Signature | + + + + + + | Magnesium | 1.9Comment: Testing | 1.7 - 2.4 mg/dL | [facility] | | | | performed at [facility] | | LABORATORY | | | | [address];[place] | | | | | | [address] | | | | + + + + + + + + | Specimen | + + | | + + + + + + + | Performing | Address | City/State/Zipcode | Phone Number | | Organization | | | | + + + + + | [facility] | [address] | [place] [address] | [phone] | + + + + + Comprehensive Metabolic Panel (10/10/2019 4:04 AM PST) + + + + + + | Component | Value | Ref Range | Performed | Pathologist | | | | | At | Signature | + + + + + + | Na | 136 | 135 - 145 | [facility] | | | | | mmol/L | LABORATORY | | + + + + + + | K | 6.3 ()Comment: CALLED | 3.5 - 4.9 | [facility] | | | | NURSING UNITSURGICAL | mmol/L | LABORATORY | | | | MICHAELA JENSEN AT 0448 BY | | | | | | RHREAD BACK RESULTS | | | | | | VERIFIED | | | | | | | | | | + + + + + + | Cl | 101 | 99 - 109 mmol/L | [facility] | | | | | | LABORATORY | | + + + + + + | CO2 | 28 | 23 - 32 mmol/L | [facility] | | | | | | LABORATORY | | + + + + + + | Anion Gap | 13 | 5 - 20 mmol/L | [facility] | | | | | | LABORATORY | | + + + + + + | Glucose | 156 (H) | 65 - 99 mg/dL | [facility] | | | | | | LABORATORY | | + + + + + + | BUN | 33 (H) | 8 - 25 mg/dL | [facility] | | | | | | LABORATORY | | + + + + + + | Creatinine | 1.92 (H) | 0.70 - 1.30 | [facility] | | | | | mg/dL | LABORATORY | | + + + + + + | BUN/Creatin | 17 | | [facility] | | | ine Ratio | | | LABORATORY | | + + + + + + | Calcium | 9.8 | 8.5 - 10.5 | [facility] | | | | | mg/dL | LABORATORY | | + + + + + + | Protein, | 7.4 | 6.3 - 8.2 g/dL | [facility] | | | Total | | | LABORATORY | | + + + + + + | Albumin | 3.6 | 3.3 - 4.8 g/dL | [facility] | | | | | | LABORATORY | | + + + + + + | Globulin | 3.8 | 1.3 - 4.9 g/dL | [facility] | | | | | | LABORATORY | | + + + + + + | A/G Ratio | 0.9 (L) | 1.0 - 2.4 | [facility] | | | | | | LABORATORY | | + + + + + + | BILIRUBIN, | 0.7 | 0.1 - 1.5 mg/dL | [facility] | | | TOTAL | | | LABORATORY | | + + + + + + | ALK PHOS | 133 (H) | 35 - 115 U/L | [facility] | | | | | | LABORATORY | | + + + + + + | AST | 34 | 10 - 45 U/L | [facility] | | | | | | LABORATORY | | + + + + + + | ALT | 28 | 10 - 65 U/L | [facility] | | | | | | LABORATORY | | + + + + + + | Estimated | 35 (L)Comment: GFR <60: | >60 | [facility] | | | GFR | CHRONIC KIDNEY DISEASE, | mL/min/1.73m2 | LABORATORY | | | | IF FOUND OVER A 3 MONTH | | | | | | PERIOD.GFR <15: KIDNEY | | | | | | FAILURE.FOR | | | | | | AMERICANS, MULTIPLY THE | | | | | | CALCULATED GFR BY | | | | | | 1.210.This eGFR is | | | | | | calculated using the | | | | | | MDRD IDMS traceable | | | | | | equation.Testing | | | | | | performed at [facility] | | | | | | [facility];[place], [place] | | | | | | [address] | | | | + + + + + + + + | Specimen | + + | | + + + + + + + | Performing | Address | City/State/Zipcode | Phone Number | | Organization | | | | + + + + + | [facility] | [address] | [place] [address] | [phone] | + + + + + CBC with Differential (10/10/2019 4:04 AM PST) + + + + + + | Component | Value | Ref Range | Performed | Pathologist | | | | | At | Signature | + + + + + + | WBC | 17.36 (H) | 3.80 - 11.00 | [facility] | | | | | K/uL | LABORATORY | | + + + + + + | RBC | 4.56 | 4.20 - 5.70 | [facility] | | | | | M/uL | LABORATORY | | + + + + + + | Hemoglobin | 15.9 | 13.2 - 17.0 | [facility] | | | | | g/dL | LABORATORY | | + + + + + + | Hematocrit | 47.0 | 39.0 - 50.0 % | [facility] | | | | | | LABORATORY | | + + + + + + | MCV | 103.0 (H) | 80.0 - 100.0 fl | [facility] | | | | | | LABORATORY | | + + + + + + | MCH | 34.8 (H) | 27.0 - 34.0 pg | [facility] | | | | | | LABORATORY | | + + + + + + | MCHC | 33.8 | 32.0 - 35.5 | [facility] | | | | | g/dL | LABORATORY | | + + + + + + | RDW-SD | 56.0 (H) | 37 - 53 fl | [facility] | | | | | | LABORATORY | | + + + + + + | Platelet | 249 | 150 - 400 K/uL | [facility] | | | Count | | | LABORATORY | | + + + + + + | MPV | 9.8 | fl | [facility] | | | | | | LABORATORY | | + + + + + + | Diff Type | AUTOMATED | | [facility] | | | | | | LABORATORY | | + + + + + + | % | 79.89 | % | [facility] | | | Neutrophils | | | LABORATORY | | + + + + + + | % | 12.07 | % | [facility] | | | Lymphocytes | | | LABORATORY | | + + + + + + | Monocyte % | 6.80 | % | [facility] | | | | | | LABORATORY | | + + + + + + | Eosinophils | 0.76 | % | [facility] | | | % | | | LABORATORY | | + + + + + + | Basophils % | 0.48 | % | [facility] | | | | | | LABORATORY | | + + + + + + | Neutrophils | 13.87 (H) | 1.90 - 7.40 | [facility] | | | , Absolute | | K/uL | LABORATORY | | + + + + + + | Absolute | 2.10 | 1.00 - 3.90 | [facility] | | | Lymphocytes | | K/uL | LABORATORY | | + + + + + + | Absolute | 1.18 (H) | 0.00 - 0.80 | [facility] | | | Monocytes | | K/uL | LABORATORY | | + + + + + + | Eosinophils | 0.13 | 0.00 - 0.50 | [facility] | | | , Absolute | | K/uL | LABORATORY | | + + + + + + | Basophils, | 0.08Comment: Testing | 0.00 - 0.10 | [facility] | | | Absolute | performed at [facility] | [address] | LABORATORY | | | | [facility];[place], [place] | | | | | | [address] | | | | + + + + + + + + | Specimen | + + | | + + + + + + + | Performing | Address | City/State/Zipcode | Phone Number | | Organization | | | | + + + + + | [facility] | [address] | [place] [address] | [phone] | + + + + + Type and Screen (10/10/2019 4:04 AM PST) + + + + + + | Component | Value | Ref Range | Performed | Pathologist | | | | | At | Signature | + + + + + + | ABO Rh | O POSITIVE | | [facility] | | | | | | LABORATORY | | + + + + + + | Antibody | NEGATIVE | | [facility] | | | Screen | | | LABORATORY | | + + + + + + | BB BAND | TU 0723 | | [facility] | | | | | | LABORATORY | | + + + + + + | BB BAND | Testing performed at | | [facility] | | | | [facility];[address] [place] [address] | | LABORATORY | | | | Blvd;[place] [address] | | | | + + + + + + + + | Specimen | + + | Blood | + + + + + + + | Performing | Address | City/State/Zipcode | Phone Number | | Organization | | | | + + + + + | [facility] | [address] | [place] [address] | [phone] | + + + + + PTT (10/10/2019 4:04 AM PST) + + + + + + | Component | Value | Ref Range | Performed | Pathologist | | | | | At | Signature | + + + + + + | PTT | 42 (H)Comment: Testing | 23 - 32 seconds | [facility] | | | | performed at [facility] | | LABORATORY | | | | [address];[place] | | | | | | [address] | | | | + + + + + + + + | Specimen | + + | Blood | + + + + + + + | Performing | Address | City/State/Zipcode | Phone Number | | Organization | | | | + + + + + | [facility] | [address] | [place] [address] | [phone] | + + + + + Protime INR (10/10/2019 4:04 AM PST) + + + + + + | Component | Value | Ref Range | Performed | Pathologist | | | | | At | Signature | + + + + + + | INR | 1.3Comment: REFERENCE | | [facility] | | | | RANGE:0.9 - 1.2 | | LABORATORY | | | | NON-ANTICOAGULATED2.0 | | | | | | - 3.0 ALL OTHER | | | | | | THERAPEUTIC | | | | | | INDICATIONS2.5 - 3.5 | | | | | | MECHANICAL HEART VALVES, | | | | | | RECURRENT OR SYSTEMIC | | | | | | EMBOLISMTesting | | | | | | performed at [facility];[address] | | | | | | [address];[place], [place] | | | | | | [address] | | | | + + + + + + + + | Specimen | + + | Blood | + + + + + + + | Performing | Address | City/State/Zipcode | Phone Number | | Organization | | | | + + + + + | [facility] | [address] | [place] [address] | [phone] | + + + + + Lipid Panel (10/10/2019 4:04 AM PST) + + + + + + | Component | Value | Ref Range | Performed | Pathologist | | | | | At | Signature | + + + + + + | Cholesterol | 92 | <200 mg/dL | [facility] | | | | | | LABORATORY | | + + + + + + | Triglycerid | 84 | <150 mg/dL | [facility] | | | es | | | LABORATORY | | + + + + + + | HDL | 31 (L) | >40 mg/dL | [facility] | | | | | | LABORATORY | | + + + + + + | LDL, | 44Comment: Testing | <100 mg/dL | [facility] | | | Calculated | performed at [facility], [address] | | LABORATORY | | | | [address], | | | | | | [place] [address] | | | | + + + + + + + + | Specimen | + + | Blood | + + + + + + + | Performing | Address | City/State/Zipcode | Phone Number | | Organization | | | | + + + + + | [facility] | [address] | [place] [address] | [phone] | + + + + + Hemoglobin A1C (10/10/2019 4:04 AM PST) + + + + + + | Component | Value | Ref Range | Performed | Pathologist | | | | | At | Signature | + + + + + + | Hemoglobin | 9.0 (H)Comment: HbA1c | 4.0 - 6.0 % | [facility] | | | A1c | method is certified by | | LABORATORY | | | | [facility] and traceable to | | | | | | the DCCT reference | | | | | | method.ADA guidelines | | | | | | indicate: | | | | | | Prediabetes: 5.7 - 6.4 | | | | | | Diabetes: >6.4 | | | | | | Glycemic control for | | | | | | adults with diabetes: | | | | | | <7.0Effective 10/05/2018: | | | | | | Note New Method | | | | + + + + + + | Estimated | 212 (H)Comment: | <154 mg/dL | [facility] | | | Average | Estimated Average | | LABORATORY | | | Glucose | Glucose calculated from | | | | | | hemoglobin A1c by use of | | | | | | the ADArecommended | | | | | | formula.Testing | | | | | | performed at [facility], [address] | | | | | | [address], | | | | | | [place] [address] | | | | + + + + + + + + | Specimen | + + | Blood | + + + + + + + | Performing | Address | City/State/Zipcode | Phone Number | | Organization | | | | + + + + + | [facility] | [address] | [place] [address] | [phone] | + + + + + CT Soft Tissue Neck w wo Contrast (06/19/2018 3:55 PM PDT) + + | Specimen | [...] | | | + +---------+ + + CT Venogram Head W WO Contrast (06/19/2018 [...] | | | + +---------+ + + XR Chest 1 Vw (06/19/2018 2:40 PM PDT) + + | Specimen | [...] | | | + +---------+ + + CT Head wo Contrast (06/19/2018 2:25 PM [...] Closed fracture of left hip, initial encounter (HCC) | + + documented in this encounter Admitting Diagnoses + + | Diagnosis | + + | Closed fracture of left hip, initial encounter (HCC) | + + documented in this encounter Administered Medications + +--------+ + +------+------+ | Medication Order | MAR | Action | Dose | Rate | Site | | | Action | Date | | | | + +--------+ + +------+------+ | | Given | 10/18/19 | 1 tablet | | | | hrgvspbc-zktqzzvhrtnf-eeetBHMbjr | | 20 8:49 | | | | | (TRIUMEQ) 600-50-300 mg per | | AM PST | | | | | tablet 1 tablet 1 tablet, Oral, | | | | | | | DAILY, First dose (after last | | | | | | | reorder) on Wed10/11/19 at 1700, | | | | | | | Hazardous: Use appropriate | | | | | | | handling precautions., | | | | | | | Indications: Human | | | | | | | Immunodeficiency Virus Disease | | | | | | + +--------+ + +------+------+ +-------+ + +---+---+ | Given | 10/17/19 | 1 tablet | | | | | 20 8:11 | | | | | | AM PST | | | | +-------+ + +---+---+ | Given | 10/16/19 | 1 tablet | | | | | 20 9:04 | | | | | | AM PST | | | | +-------+ + +---+---+ +---+---+ | | | +---+---+ + +-------+ +--------+---+---+ | acetaminophen (TYLENOL) tablet | Given | 10/18/19 | 650 mg | | | | 650 mg 650 mg, Oral, EVERY 4 | | 20 7:32 | | | | | HOURS PRN, Pain, or fever >= 38.6 | | AM PST | | | | | C (101.5 F), Starting Tue | | | | | | | 10/10/19 at 0234 | | | | | | + +-------+ +--------+---+---+ +-------+ +--------+---+---+ | Given | 10/17/19 | 650 mg | | | | | 20 11:08 | | | | | | PM PST | | | | +-------+ +--------+---+---+ | Given | 10/16/19 | 650 mg | | | | | 20 8:14 | | | | | | PM PST | | | | +-------+ +--------+---+---+ +---+---+ | | | +---+---+ + +-------+ +--------+---+---+ | allopurinol (ZYLOPRIM) tablet | Given | 10/18/19 | 100 mg | | | | 100 mg 100 mg, Oral, DAILY, | | 20 8:37 | | | | | First dose on Wed10/10/19 at 0900 | | AM PST | | | | + +-------+ +--------+---+---+ +-------+ +--------+---+---+ | Given | 10/17/19 | 100 mg | | | | | 20 8:11 | | | | | | AM PST | | | | +-------+ +--------+---+---+ | Given | 10/16/19 | 100 mg | | | | | 20 9:00 | | | | | | AM PST | | | | +-------+ +--------+---+---+ +---+---+ | | | +---+---+ + +-------+ +------+---+---+ | apixaban (ELIQUIS) tablet 5 mg | Given | 10/18/19 | 5 mg | | | | 5 mg, Oral, EVERY 12 HOURS (2 | | 20 8:37 | | | | | times per day), First dose on Wed | | AM PST | | | | | 10/13/19 at 0900 | | | | | | + +-------+ +------+---+---+ +-------+ +------+---+---+ | Given | 10/17/19 | 5 mg | | | | | 20 8:19 | | | | | | PM PST | | | | +-------+ +------+---+---+ | Given | 10/17/19 | 5 mg | | | | | 20 8:11 | | | | | | AM PST | | | | +-------+ +------+---+---+ +---+---+ | | | +---+---+ + +-------+ +-------+---+---+ | atorvaSTATin (LIPITOR) tablet | Given | 10/17/19 | 80 mg | | | | 80 mg 80 mg, Oral, NIGHTLY, | | 20 8:17 | | | | | First dose on Wed10/10/19 at 0245 | | PM PST | | | | + +-------+ +-------+---+---+ +-------+ +-------+---+---+ | Given | 10/16/19 | 80 mg | | | | | 20 8:13 | | | | | | PM PST | | | | +-------+ +-------+---+---+ | Given | 10/15/19 | 80 mg | | | | | 20 9:23 | | | | | | PM PST | | | | +-------+ +-------+---+---+ +---+---+ | | | +---+---+ + +-------+ +--------+---+ + | bupivacaine (PF) (MARCAINE) | Given | 10/12/19 | 30 mLs | | Surgical | | 0.25% injection PRN, Starting | | 20 1:22 | | | Site | | Lay 10/12/19 at 1322, Intra-op | | PM PST | | | | + +-------+ +--------+---+ + + +---+ | | | + +---+ | dextrose 10% (D10W) infusion | | | at 50 mL/hr, Intravenous, | | | CONTINUOUS PRN, hypoglycemia, | | | Starting 10/10/19 at 0234, | | | Start infusion if unable to | | | maintain blood glucose greater | | | than 70 mg/dL after two rounds of | | | hypoglycemia treatment. Recheck | | | blood glucose 30 minutes after | | | starting D10W then at least | | | hourly and PRN until it is | | | discontinued. Call provider to | | | discuss parameters for D10W | | | discontinuation., | | + +---+ | | | + +---+ | dextrose 50% injection 12.5-25 | | | g 12.5-25 g, Intravenous, PRN, | | | Low Blood Sugar, Starting [facility] | | | 10/10/19 at 0234, For blood | | | glucose 50-69 mg/dl - give 12.5 g | | | For blood glucose less than 50 | | | mg/dl - give 25 g, | | + +---+ | | | + +---+ | eucerin cream Topical, PRN, | | | Dry Skin, Starting [facility] 10/12/19 at | | | 1052, Apply to dry skin, taking | | | care not to apply between toes., | | | Apply to: Other (Comment), Other | | | location: bilateral legs | | + +---+ | | | + +---+ + +-------+ +------+---+---+ | finasteride (PROSCAR) tablet 5 | Given | 10/18/19 | 5 mg | | | | mg 5 mg, Oral, DAILY, First dose | | 20 8:37 | | | | | on Wed10/10/19 at 0900, | | AM PST | | | | | Reproductive Risk: Use | | | | | | | appropriate handling | | | | | | | precautions., | | | | | | + +-------+ +------+---+---+ +-------+ +------+---+---+ | Given | 10/17/19 | 5 mg | | | | | 20 8:10 | | | | | | AM PST | | | | +-------+ +------+---+---+ | Given | 10/16/19 | 5 mg | | | | | 20 9:00 | | | | | | AM PST | | | | +-------+ +------+---+---+ +---+---+ | | | +---+---+ + +-------+ +--------+---+---+ | gabapentin (NEURONTIN) capsule | Given | 10/18/19 | 300 mg | | | | 300 mg 300 mg, Oral, 2 TIMES | | 20 8:37 | | | | | DAILY, First dose on Wed10/10/19 | | AM PST | | | | | at 0900 | | | | | | + +-------+ +--------+---+---+ +-------+ +--------+---+---+ | Given | 10/17/19 | 300 mg | | | | | 20 8:18 | | | | | | PM PST | | | | +-------+ +--------+---+---+ | Given | 10/17/19 | 300 mg | | | | | 20 8:10 | | | | | | AM PST | | | | +-------+ +--------+---+---+ +---+---+ | | | +---+---+ + +-------+ +--------+---+---+ | HYDROmorphone (DILAUDID) | Given | 10/12/19 | 0.5 mg | | | | injection 0.25-1 mg 0.25-1 mg, | | 20 10:19 | | | | | Intravenous, EVERY 2 HOURS PRN, | | AM PST | | | | | Pain, Starting Wed10/10/19 at | | | | | | | 0234, Use IV morphine first if | | | | | | | ordered. Slow IV push, not faster | | | | | | | than 0.25 mg/minute. If | | | | | | | ineffective or not tolerated and | | | | | | | unable to take oral opioid - | | | | | | | contact MD., | | | | | | + +-------+ +--------+---+---+ +-------+ +--------+---+---+ | Given | 10/10/19 | 0.5 mg | | | | | 20 6:40 | | | | | | AM PST | | | | +-------+ +--------+---+---+ +---+---+ | | | +---+---+ + +-------+ + +---+ + | insulin glargine (LANTUS | Given | 10/18/19 | 10 Units | | Arm-Righ | | SOLOSTAR) injection (pen) | | 20 8:43 | | | t Upper | | Units 10 Units, Subcutaneous, | | AM PST | | | | | EVERY 12 HOURS (2 times per day), | | | | | | | First dose on Wed10/10/19 at | | | | | | | 0900, If NPO: Decrease dose, by: | | | | | | | 50% | | | | | | + +-------+ + +---+ + +-------+ + +---+ + | Given | 10/17/19 | 10 Units | | Abdomen- | | | 20 9:21 | | | LLQ | | | PM PST | | | | +-------+ + +---+ + | Given | 10/17/19 | 10 Units | | Abdomen- | | | 20 9:05 | | | RLQ | | | AM PST | | | | +-------+ + +---+ + +---+---+ | | | +---+---+ + +-------+ +---------+---+ + | insulin lispro (humaLOG) | Given | 10/18/19 | 1 Units | | Arm-Righ | | injection (vial) 0-6 Units 0-6 | | 20 8:42 | | | t Upper | | Units, Subcutaneous, 4 TIMES | | AM PST | | | | | DAILY WITH MEALS & NIGHTLY, First | | | | | | | dose on Wed10/10/19 at 0800, | | | | | | | CORRECTION SCALE: Blood Glucose | | | | | | | (BG) < 150: None BG | | | | | | | 150-200: DAY: 1 units. NIGHT: 0 | | | | | | | units BG 201-250: DAY: 2 | | | | | | | units. NIGHT: 1 units BG | | | | | | | 251-300: DAY: 3 units. NIGHT: 2 | | | | | | | units BG 301-350: DAY: 4 units. | | | | | | | NIGHT: 3 units BG 351-400: | | | | | | | DAY: 5 units. NIGHT: 4 units | | | | | | | BG > 400 : DAY: 6 units. | | | | | | | NIGHT: 5 units | | | | | | | AND CALL PROVIDER Use DAY | | | | | | | DOSE for doses scheduled: | | | | | | | AC, NPO, Daytime 6950-8440 Use | | | | | | | NIGHT DOSE for doses scheduled: | | | | | | | HS, 3AM, Nighttime 2518-9749 | | | | | | | If the BG is not checked before | | | | | | | the patient starts eating, do not | | | | | | | give correction insulin. If HS | | | | | | | insulin given, check blood | | | | | | | glucose at 3AM. Only for use with | | | | | | | U-100 insulin syringe., | | | | | | + +-------+ +---------+---+ + +-------+ +---------+---+ + | Given | 10/17/19 | 2 Units | | Abdomen- | | | 20 4:50 | | | LLQ | | | PM PST | | | | +-------+ +---------+---+ + | Given | 10/16/19 | 1 Units | | Abdomen- | | | 20 9:35 | | | LLQ | | | PM PST | | | | +-------+ +---------+---+ + +---+---+ | | | +---+---+ + +-------+ +---------+---+ + | insulin lispro (humaLOG) | Given | 10/18/19 | 5 Units | | Arm-Righ | | injection (vial) 5 Units 5 | | 20 8:42 | | | t Upper | | Units, Subcutaneous, 3 TIMES | | AM PST | | | | | DAILY WITH MEALS, First dose on | | | | | | | 10/10/19 at 0800, Hold if not | | | | | | | eating. Only for use with U-100 | | | | | | | insulin syringe., | | | | | | + +-------+ +---------+---+ + +-------+ +---------+---+ + | Given | 10/17/19 | 5 Units | | Abdomen- | | | 20 4:49 | | | LLQ | | | PM PST | | | | +-------+ +---------+---+ + | Given | 10/17/19 | 5 Units | | Arm-Righ | | | 20 1:00 | | | t Upper | | | PM PST | | | | +-------+ +---------+---+ + +---+---+ | | | +---+---+ + +-------+ +-------+---+---+ | isosorbide mononitrate (IMDUR) | Given | 10/18/19 | 30 mg | | | | ER tablet 30 mg 30 mg, Oral, | | 20 8:37 | | | | | DAILY, First dose on Wed10/10/19 | | AM PST | | | | | at 0900, Tablet may be cut where | | | | | | | scored but do not crush., | | | | | | + +-------+ +-------+---+---+ +-------+ +-------+---+---+ | Given | 10/17/19 | 30 mg | | | | | 20 8:11 | | | | | | AM PST | | | | +-------+ +-------+---+---+ | Given | 10/16/19 | 30 mg | | | | | 20 9:00 | | | | | | AM PST | | | | +-------+ +-------+---+---+ +---+---+ | | | +---+---+ + +-------+ +--------+---+---+ | lactulose liquid 30 mL 30 mL, | Given | 10/18/19 | 30 mLs | | | | Oral, 2 TIMES DAILY PRN, | | 20 8:39 | | | | | Constipation, Starting Sat | | AM PST | | | | | 10/14/19 at 1134 | | | | | | + +-------+ +--------+---+---+ +-------+ +--------+---+---+ | Given | 10/18/19 | 30 mLs | | | | | 20 8:36 | | | | | | AM PST | | | | +-------+ +--------+---+---+ | Given | 10/14/19 | 30 mLs | | | | | 20 2:54 | | | | | | PM PST | | | | +-------+ +--------+---+---+ +---+---+ | | | +---+---+ + +-------+ +--------+---+ + | lidocaine 1%-EPINEPHrine | Given | 10/12/19 | 20 mLs | | Surgical | | 1:100,000 injection PRN, | | 20 1:22 | | | Site | | Starting [facility] 10/12/19 at 1322, | | PM PST | | | | | Intra-op | | | | | | + +-------+ +--------+---+ + +---+---+ | | | +---+---+ + +-------+ +--------+---+---+ | melatonin tablet 0.5 mg 0.5 | Given | 10/18/19 | 0.5 mg | | | | mg, Oral, NIGHTLY PRN, Insomnia, | | 20 12:37 | | | | | Starting 10/10/19 at 0234 | | AM PST | | | | + +-------+ +--------+---+---+ +---+---+ | | | +---+---+ + +-------+ +-------+---+---+ | metoprolol tartrate (LOPRESSOR) | Given | 10/18/19 | 25 mg | | | | tablet 25 mg 25 mg, Oral, 2 | | 20 8:36 | | | | | TIMES DAILY, First dose on Wed | | AM PST | | | | | 10/10/19 at 0900 | | | | | | + +-------+ +-------+---+---+ +-------+ +-------+---+---+ | Given | 10/17/19 | 25 mg | | | | | 20 8:21 | | | | | | PM PST | | | | +-------+ +-------+---+---+ | Given | 10/17/19 | 25 mg | | | | | 20 8:11 | | | | | | AM PST | | | | +-------+ +-------+---+---+ +---+---+ | | | +---+---+ + +-------+ +-------+---+---+ | mirtazapine (REMERON) tablet 15 | Given | 10/17/19 | 15 mg | | | | mg 15 mg, Oral, DAILY AFTER | | 20 6:59 | | | | | DINNER, First dose on Wed10/10/19 | | PM PST | | | | | at 1800 | | | | | | + +-------+ +-------+---+---+ +-------+ +-------+---+---+ | Given | 10/16/19 | 15 mg | | | | | 20 6:38 | | | | | | PM PST | | | | +-------+ +-------+---+---+ | Given | 10/15/19 | 15 mg | | | | | 20 6:37 | | | | | | PM PST | | | | +-------+ +-------+---+---+ +---+---+ | | | +---+---+ + +-------+ +---+---+---+ | nystatin (MYCOSTATIN) powder | Given | 10/18/19 | | | | | Topical, 2 TIMES DAILY, First | | 20 8:43 | | | | | dose on Lay 10/12/19 at 1115, | | AM PST | | | | | Sprinkle powder on affected | | | | | | | area., Apply to: [facility] | | | | | | + +-------+ +---+---+---+ +-------+ +---+---+---+ | Given | 10/17/19 | | | | | | 20 9:21 | | | | | | PM PST | | | | +-------+ +---+---+---+ | Given | 10/17/19 | | | | | | 20 8:16 | | | | | | AM PST | | | | +-------+ +---+---+---+ +---+---+ | | | +---+---+ + +-------+ +-----+---+ + | oxychlorosene powder PRN, | Given | 10/12/19 | 2 g | | Surgical | | Starting Lay 10/12/19 at 1321, | | 20 1:21 | | | Site | | Intra-op | | PM PST | | | | + +-------+ +-----+---+ + +---+---+ | | | +---+---+ + +-------+ + +---+---+ | oxyCODONE-acetaminophen | Given | 01/26/20 | 1 tablet | | | | (PERCOCET) 5-325 mg per tablet 1 | | 20 2:49 | | | | | tablet 1 tablet, Oral, EVERY 6 | | PM PST | | | | | HOURS PRN, Pain, Starting Wed | | | | | | | 10/10/19 at 0234 | | | | | | + +-------+ + +---+---+ +-------+ + +---+---+ | Given | 10/13/19 | 1 tablet | | | | | 20 3:09 | | | | | | AM PST | | | | +-------+ + +---+---+ | Given | 10/11/19 | 1 tablet | | | | | 20 5:17 | | | | | | PM PST | | | | +-------+ + +---+---+ +---+---+ | | | +---+---+ + +-------+ +------+---+---+ | polyethylene glycol (MIRALAX) | Given | 10/18/19 | 17 g | | | | powder 17 g 17 g, Oral, DAILY, | | 20 8:36 | | | | | First dose (after last | | AM PST | | | | | modification) on Wed10/17/19 at | | | | | | | 1430, If docusate and senna | | | | | | | ineffective or not ordered., | | | | | | + +-------+ +------+---+---+ +---+---+ | | | +---+---+ + +-------+ +---------+---+---+ | senna (SENOKOT) tablet 17.2 mg | Given | 10/18/19 | 17.2 mg | | | | 17.2 mg, Oral, 2 TIMES DAILY, | | 20 8:37 | | | | | First dose (after last | | AM PST | | | | | modification) on Wed10/17/19 at | | | | | | | 2100 | | | | | | + +-------+ +---------+---+---+ +-------+ +---------+---+---+ | Given | 10/17/19 | 17.2 mg | | | | | 20 8:17 | | | | | | PM PST | | | | +-------+ +---------+---+---+ +---+---+ | | | +---+---+ + +-------+ +---------+---+---+ | sodium phosphate (FLEET) enema | Given | 10/14/19 | 133 mLs | | | | 133 mL 133 mL, Rectal, DAILY | | 20 9:34 | | | | | PRN, Constipation, Starting Sat | | PM PST | | | | | 10/14/19 at 1914 | | | | | | + +-------+ +---------+---+---+ +---+---+ | | | +---+---+ documented in this encounter
--- OUTSIDE RECORDS SUMMARY | ~2020-03-20 | XMS | Encounter Summary ---
Demographics + + + | Address | [address] | | | [place] [address] | + + + | Home Phone | | + + + | Preferred Language | Unknown | + + + | Marital Status | | + + + | Baptist Affiliation | 1038 | + + + | Race | Unknown | + + + | Ethnic Group | Unknown | + + + Author + + + | Author | [facility] | | | and [place] | + + + | Organization | [facility] | | | and [place] | + + + | Address | Unknown | + + + | Phone | Unavailable | + + + Support + + + + + | Name | Relationship | Address | Phone | + + + + + | Aileen Nelson | ECON | [address] [facility] | | | | | [place] | | | | | [address] | | + + + + + Care Team Providers + +------+ + | Care Section Forest Fire Warden Name | Role | Phone | + +------+ + | Jericho Cao MD | PCP | | + +------+ + Encounter Details +--------+ + + + + | Date | Type | Department | Care Team | Description | +--------+ + + + + | 12/14/ | Hospital | [facility] | Tee Guille D, | | | 2019 | Encounter | [address] | PA-C [address] | | | | [address] | [address] | | | | | [place], [place] | [place], [place] | | | | | [address] | [address] | | | | | [phone] | [phone] | | | | | | | [...] + + +---------+ + + | Saw Alaina 450 | Take 900 mg by mouth [...]
--- OUTSIDE RECORDS SUMMARY | ~2020-03-20 | XMS | Encounter Summary ---
Demographics + + + | Address | [address] [place] [address] | | | [place] [address] | + + + | Home Phone [...] Author + + + | Author | [facility] | + + + | Organization | [facility] | + + + | Address | Unknown | + + + | Phone | Unavailable | + + + Support + + + + + | Name | Relationship | Address | Phone | + + + + + | Aileen Nelson | ECON | [address] | | | | | [place] [address] | | + + + + + Care Team Providers + +------+ + | Care Health And Safety Tech Name | Role | Phone | + [...] [place] | | | | | [address] | [address] | | | | | | [phone] | | | | | | | [...] Edmond Estes MD - 05/10/2015 6:00 PM [facility] PROGRESS NOTE [address] [place] [address] SARTHAK NELSON DATE OF SERVICE: 05/10/2015 TIME [...] here to the ER or to the [place] [facility]. GIANCARLO/Slyvie /[id number] Electronically Signed 05/22/15 1228 MD MANOJ Cantu EDWARD E [id number] : 50 [id number] ADMIT DATE: 05/04/15 DISCHARGE DATE: 05/10/15 Edmond Wood MD - 05/09/2015 9:[address] [facility] PROGRESS NOTE [address] [place] [address] SARTHAK NELSON HISTORY UPDATE: Mr. Nelson was [...] has been in discussion with at the [place] in [place]. I do not see any need for [...] infect a sterile fluid collection. MM/SARTHAK Sánchez [id number] : 50 [id number] ADMIT DATE: 05/04/15 DISCHARGE DATE: /[id number] Electronically Signed 05/10/15 0814 MD MANOJ Cantu EDWARD E [id number] : 50 [id number] ADMIT DATE: 05/04/15 DISCHARGE DATE: Bruno Ramirez MD - 05/09/2015 4:[address] [facility] PROGRESS NOTE [address] [place] [address] SARTHAK NELSON DATE OF SERVICE: 05/09/2015 ASSESSMENT [...] get closer to within normal limits. ILL/MedQ /[id number] Electronically Signed 05/10/15 0715 MD MANOJ Abbott EDWARD E [id number] : 50 [id number] ADMIT DATE: 05/04/15 DISCHARGE DATE: Bruno Ramirez MD - 05/09/2015 3:54 PM [facility] PROG RESS NOTE [address] [place] [address] SARTHAK NELSON DATE OF SERVICE: 05/09/2015 24-HOUR [...] was working because once the SARTHAK NELSON [id number] : 50 [id number] ADMIT DATE: 05/04/15 DISCHARGE DATE: ceftriaxone was [...] recent urinalysis, specifically on 04/18/2015 at the [place], and this was of 100,000 colony-forming units. [employer] does cover for this. In addition, in speaking with Alaina Malik, the infectious disease lead clinical at the [place], she stated that this will also cover [...] of a dime with minimal SARTHAK NELSON [id number] : 50 [id number] ADMIT DATE: 05/04/15 DISCHARGE DATE: anguinous seepage. Will monitor. 9. Deep venous thrombosis prophylaxis. On warfarin currently. ILL/MedQ /[id number] Electronically Signed 05/10/15 0715 MD MANOJ Abbott EDWARD E [id number] : 50 [id number] ADMIT DATE: 05/04/15 DISCHARGE DATE: Bruno Ramirez MD - 05/08/2015 6:[address] [facility] PROG RESS NOTE [address] [place] [address] SARTHAK NELSON DATE OF SERVICE: 05/08/2015 24-HOUR [...] that was isolated on 04/18/2015 at the [place] from a urine culture growing more than 100,000 colony-forming units. In addition, speaking to Alaina Malik, who is the [place] lead clinical there, since the patient's infectious disease specialist, Dr. Cait Peres, is on vacation, stated to also cover for gonorrhea that could be circulating in the community. Even though I stated the patient has not had SARTHAK NELSON [id number] : 50 [id number] ADMIT DATE: 05/04/15 DISCHARGE DATE: sexual intercourse [...] 3. Baseline creatinine is 1.9 as per [place] records. Currently his creatinine is 1.7, we [...] today, the infectious disease clinician at the [place] (phone number is [phone]). Prior to this, also tried calling Jennifer, another HIV manufacturing sales representative at the [place], at [phone], and left a message. 3. Also called Martin Stokes, of infectious diseases at [facility], at [phone]. The conversation initially was started with Martin Stokes, who then contacted [facility], specifically, Alaina Malik, who in turn contacted me. ILL/MedQ /[id number] Electronically Signed 05/09/15 0700 MD MANOJ Abbott EDWARD E [id number] : 50 [id number] ADMIT DATE: 05/04/15 DISCHARGE DATE: Bruno Ramirez MD - 05/07/2015 4:09 PM [facility] PROG RESS NOTE [address] [place] [address] SARTHAK NELSON DATE OF SERVICE: 05/07/2015 24-HOUR [...] If not, then we will SARTHAK NELSON [id number] : 50 [id number] ADMIT DATE: 05/04/15 DISCHARGE DATE: consider getting [...] with oral antibiotic before considering discharge. ILL/MedQ /[id number] Electronically Signed 05/08/15 1058 MD MANOJ Abbott EDWARD E [id number] : 50 [id number] ADMIT DATE: 05/04/15 DISCHARGE DATE: Bruno Ramirez MD - 05/07/2015 3:21 PM [facility] PROG RESS NOTE [address] [place] [address] NELSONSARTHAK TEMPLE CONTINUATION: Chronic kidney disease stage III. Baseline creatinine is 1.9. This is from review of [place]. ILL/MedQ /[id number] Electronically Signed 05/08/15 1058 Bruno Gray MD SARTHAK NELSON [id number] : 50 [id number] ADMIT DATE: 05/04/15 DISCHARGE DATE: Abad Barraza MD - 05/07/2015 1:[address] [facility] PROGRESS NOTE [address] [place] [address] NELSONCHERYLLUIS Morales CURRENT PROBLEM: Right epididymitis. HISTORY [...] in [facility] or at the [facility] Urology Department-where he is an established patient. We will follow him on a p.r.n. basis during the remainder his hospitalization. GAG/MedQ /[id number] Electronically Signed 05/23/15 0728 MD MANOJ Gomez EDWARD E [id number] : 50 [id number] ADMIT DATE: 05/04/15 DISCHARGE DATE: 05/10/15 Bruno Ramirez MD - 05/06/2015 11:19 AM [facility] PROGRESS NOTE [address] [place] [address] SARTHAK NELSON DATE OF SERVICE: 05/06/2015 24-HOUR [...] morning before considering discharge. ILL/MedQ SARTHAK NELSON [id number] : 50 [id number] ADMIT DATE: 05/04/15 DISCHARGE DATE: /[id number] Electronically Signed 05/07/15 0700 MD MANOJ Abbott EDWARD E [id number] : 50 [id number] ADMIT DATE: 05/04/15 [facility]/2015 9:[address] [facility] PROGRESS NOTE [address] [place] [address] SARTHAK NELSON DATE OF SERVICE: 05/05/2015 BRIEF HISTORY: A 64-year-old gentleman with multiple comorbidities who is followed through the [place]. He has HIV and reports [...] Disposition: Likely home tomorrow. DC/MedQ SARTHAK NELSON [id number] : 50 [id number] ADMIT DATE: 05/04/15 DISCHARGE DATE: /[id number] Electronically Signed 05/06/15 1037 MD MANOJ Vu EDWARD E [id number] : 50 [id number] ADMIT DATE: 05/04/15 DISCHARGE DATE: [facility] Edmond franco MD - 05/05/2015 1:[address] [facility] PROGRESS NOTE [address] [place] [address] SARTHAK NELSON DATE OF SERVICE: 05/05/2015 EVENTS [...] Urology can be contacted to re-consult. MM/MedLoulou /[id number] Electronically Signed 05/10/15 0813 MD MANOJ Cantu EDWARD E [id number] : 50 [id number] ADMIT DATE: 05/04/15 DISCHARGE DATE: [facility] Edmond gray MD - 05/05/2015 10:[address] [facility] CONSULTATI ON [address] [place] [address] SARTHAK NELSON DATE OF CONSULTATION: 05/04/2015 REQUESTING [...] scrotum is enlarged bilaterally, and SARTHAK NELSON [id number] : 50 [id number] ADMIT DATE: 05/04/15 on the left side [...] of this patient. Urology will follow. GIANCARLO/MedLoulou /[id number] Electronically Signed 05/10/15 0813 MD MANOJ CantuSARTHAK [id number] : 50 [id number] ADMIT DATE: 05/04/15 Ghanshyam Kelly MD - 05/04/2015 6:[address] [facility] PROGRESS NOTE [address] [place] [address] NELSON,SARTHAK Morales BRIEF HISTORY: A 64-year-old gentleman [...] 8. Disposition: Continue inpatient care. SARTHAK NELSON [id number] : 50 [id number] ADMIT DATE: 05/04/15 DISCHARGE DATE: Damián /[id number] Electronically Signed 05/06/15 1036 MD MANOJ Vu EDWARD E [id number] : 50 [id number] ADMIT DATE: 05/04/15 [facility] Plan of Treatment Not on filedocumented as of this encounter Visit Diagnoses Not on filedocumented in this encounter"
--- OUTSIDE RECORDS SUMMARY | ~2020-03-20 | XMS | Encounter Summary ---
Demographics + + + | Address | [address] [place] [address] | | | [place] [address] | + + + | Home Phone [...] | | | | | [place] [address] | | + + + + + Care Team Providers + +------+ + | Care Writer Editor Name | Role | Phone | [...] Ellen Fritz | | | | | [facility] [address] | [address] [place], | | | 03/22/ | | [facility] | [place] [address] | | | 2011 | | [place], [place] | [phone] | | | | | [address] | | | | | | [phone] | Loni Gardner MD | | | | | | [address] | | | | | | Street [place], [place] | | | | | | [address] | | | | | | | [...] 03/22/2012 Thank you for coming to the [facility] ED. You have been diagnosed with chest [...] doctor if you can take an o pll-wmw-rjkslrm medicine. Rest and protect the sore area. [...] Pain: After Your Visit", log into your [employer] a ccount at [email or web address]. You can enter V293 in the [employer]" search b ox. Not on [employer]? Review the Weeblyhart section of your After Visit Summary for directions on ho w to sign up. [id number] [employer]. Care instructions adapted under license by [facility]. This care instruction is for use with your licensed healthcar e professional. If you have questions about a medical condition or this instruction, always ask your healthcare professional. [employer] disclaims any warranty or liabili ty for your use of this information. Content Version: 9.3.79150; Last Revised: 2010 documented in this encounter [...] Provider: No primary provider on file. Primary Enterprise Application Analyst: [place] cardi[facility] I was paged by ER to see Mr. Sarthak Nelson for ICD check. Sarthak Nelson is a 61 y.o . Male with ICD who came to ED and reports that his ICD fired. No diagnosis found. Generator: Device: [employer] Model #: TELIGEN 100 E102 Serial #: [id number] Implanted: 12/29/2010 Leads: RV: GUIDANT Implant date: 12/29/2010 ICD PROGRAMMING: Alberto Mode: VVI Lower Rate: 40 bpm TACHY PARAMETERS: VT Detection Rate: 180, Therapy: ATP X3, CV: 5J, 41 JX2. Vf Detection Rate: 210. Therapy: CV: 5J, 41J X8. Patient is not pacer dependent. Today's underline rhythm is sinus 88. PACING PERCENTAGE: EMERGENCY REGISTRAR: 0% EPISODES detected today: 0 Last NSVT [...] or ICD therapies today. Recommendations: Cardiology consult. Znadra Long PA-C [facility] DEPARTMENT: [id number]- CAR ORE PUNCHER EP [facility] Place of Service: [address] - ED Date of Service: 03/21/2012 CSN: [id number] Suggested Level of Care: 50493 - Programming device evaluation; single lead implantable [...] BRENDA | [address] | [place], [place] | | | REBA CARRANZA OF CARE | [address] | [address] | | | TESTS | | | [...] | | | | | | | <xa=792....... Negative: | | | | | | [...] CHF. | | | | | | >dx=957....... Highly | | | | | | consistent with CHF. | | | | | | Patients with BNP>ey=380 | | | | | | | [...] | + + + + + | [facility] | [address] | [place] [address] | | | PATHOLOGY | [address] [...] [place] DEPARTMENT | [address] | [place] [address] | | | PATHOLOGY | [address] [...] view image for the detailed interpretation from [employer] results. | CARDIOLOGY | + + + + + + + + | Performing | Address | City/State/Zipcode | Phone Number | | Organization | | | | + + + + + | [facility] | [address] | [place], [place] | | | CARDIOLOGY | [address] | [address] | | + + + + + [...] GUTIERREZ | [address] | [place], [place] | | | TERE POINT OF CARE | [address] | [address] | | | TESTS | | | [...] | | | | | | Edmond iGlmore | | | | | | IainAuthor: [...] | + + + + + | [facility] DEPARTMENT | [address] | [place] [address] | | | PATHOLOGY | [address] [...] | + + + + + | [facility] DEPARTMENT OF | [address] | [place] [address] | | | PATHOLOGY | [address] [...] (H) | 60 - 99 mg/dL | [facility] | | | PLASMA | | | [...] | | | DEPARTMENT | | | BRITISH | | | OF | | | [...] | + + + + + | [facility] | [address] | [place] [address] | | | PATHOLOGY | [address] [...] DEPARTMENT OF | [address] | [place] [address] | | | PATHOLOGY | [address] [...] [place] | | | | | | 2434) [...] view image for the detailed interpretation from [employer] results. | CARDIOLOGY | + + + + + + + + | Performing | Address | City/State/Zipcode | Phone Number | | Organization | | | | + + + + + | [facility] | [address] | [place], [place] | | | CARDIOLOGY | [address] | [address] | | + + + + + [...]
--- OUTSIDE RECORDS SUMMARY | ~2020-03-20 | XMS | Encounter Summary ---
Demographics + + + | Address | [address] | | | [place] [address] | + + + | Home Phone | | + + + | Preferred Language | Unknown | + + + | Marital Status | | + + + | Shinto Affiliation | 1038 | + + + | Race | Unknown | + + + | Ethnic Group | Unknown | + + + Author + + + | Author | [facility] | | | and [place] | + + + | Organization | [facility] | | | and [place] | + + + | Address | Unknown | + + + | Phone | Unavailable | + + + Support + + + + + | Name | Relationship | Address | Phone | + + + + + | Aileen Nelson | ECON | [address] [facility] | | | | | [place] | | | | | [address] | | + + + + + Care Team Providers + +------+ + | Care Speech And Hearing Clinic Director Name | Role | Phone | [...] Exam | MED CTR EXTERNAL | [address] | | | | | IMAGING [address] | [address] | | | | | [address] | [place] [address] | | | | | [place] [address] | | | | | | [phone] | | | +--------+ + + + [...] + +--------+ + + + | CT SOFT TISSUE NECK | Routin | 06/19/2018 | | Results for this | | W WO CONTRAST | e | 3:55 PM | | procedure are in the | | | | PDT | | results section. | + +--------+ + + + documented in this encounter Results CT Soft Tissue Neck w wo Contrast [...]
--- OUTSIDE RECORDS SUMMARY | ~2020-03-20 | XMS | Encounter Summary ---
Demographics + + + | Address | [address] [place] [address] | | | [place] [address] | + + + | Home Phone | | + + + | Preferred Language | Unknown | + + + | Marital Status | Single | + + + | Catholic Affiliation | PEN | + + [...] + + + + + | Aileen Nelosn | ECON | [address] | | | | | [place] [address] | | + + + + + Care Team Providers + +------+ + | Care Solar Energy Consultant And Designer Name | Role | Phone | [...] [place] | | | | | | [address] | | | | | | [phone] | | | | | | | [...] POINT | | | GLUCOSE, | ID: [id number]: | | OF CARE | | | POC | [id number] Jesse Ivey | | TESTING | | | |Bankruptcy Legal Assistant: [id number] Jesse Ivey | | | | | [...] POINT | | | GLUCOSE, | ID: [id number]: | | OF CARE | | | POC | [id number] John Goyal | | TESTING | | | |Bankruptcy Legal Assistant: [id number] John Goyal | | | | | [...] POINT | | | GLUCOSE, | ID: [id number]: | | OF CARE | | | POC | [id number] John Goyal | | TESTING | | | |Bankruptcy Legal Assistant: [id number] John Goyal | | | | | [...] POINT | | | GLUCOSE, | ID: [id number]: | | OF CARE | | | POC | [id number] John Goyal | | TESTING | | | |Bankruptcy Legal Assistant: [id number] John Goyal | | | | | [...] POINT | | | GLUCOSE, | ID: [id number]: | | OF CARE | | | POC | [id number] Linsey Peñaloza | | TESTING | | | |Bankruptcy Legal Assistant: [id number] Linsey Anabela | | | | | [...] POINT | | | GLUCOSE, | ID: [id number]: | | OF CARE | | | POC | [id number] Jesse Ivey | | TESTING | | | |Bankruptcy Legal Assistant: [id number] Jesse Ivey | | | | | [...] POINT | | | GLUCOSE, | ID: [id number]: | | OF CARE | | | POC | [id number] Davijasvir Diop | | TESTING | | | |Bankruptcy Legal Assistant: [id number] Davi Diop | | | | | [...]
--- OUTSIDE RECORDS SUMMARY | ~2020-03-20 | XMS | Encounter Summary ---
Demographics + + + | Address | [address] [place] [address] | | | [place] [address] | + + + | Home Phone | | + + + | Preferred Language | Unknown | + + + | Marital Status | Single | + + + | Quaker Affiliation | PEN | + + + | Race | White | + + + | Ethnic Group | Not or | + + + Author + + + | Author | [facility] | + + + | Organization | [facility] | + + + | Address | Unknown | + + + | Phone | Unavailable | + + + Support + + + + + | Name | Relationship | Address | Phone | + + + + + | Aileen Nelson | ECON | [address] | | | | | [place] [address] | | + + + + + Care Team Providers + +------+ + | Care Services Executive Name | Role | Phone | + [...] [place] | | | | | | [address] | | | | | | [phone] | | | | | | | [...] POINT | | | GLUCOSE, | ID: [id number]: | | OF CARE | | | POC | [id number] Davi Diop | | TESTING | | | |Ethnoarchaeology Professor: [id number] Davi Diop | | | | | [...] [place] POINT | | | GLUCOSE, | [id number]: | | OF CARE | | | POC | [id number] Linsey Peñaloza | | TESTING | | | |Ethnoarchaeology Professor: [id number] Linsey Peñaloza | | | | | [...] POINT | | | GLUCOSE, | ID: [id number]: | | OF CARE | | | POC | [id number] Linsey Peñaloza | | TESTING | | | |Ethnoarchaeology Professor: [id number] Linsey Peñaloza | | | | | [...] POINT | | | GLUCOSE, | ID: [id number]: | | OF CARE | | | POC | [id number] Linsey Peñaloza | | TESTING | | | |Ethnoarchaeology Professor: [id number] Linsey Peñaloza | | | | | [...] POINT | | | GLUCOSE, | ID: [id number]: | | OF CARE | | | POC | [id number] Jesse Ivey | | TESTING | | | |Ethnoarchaeology Professor: [id number] Jesse Ivey | | | | | [...]
--- OUTSIDE RECORDS SUMMARY | ~2020-03-20 | XMS | Encounter Summary ---
Demographics + + + | Address | [address] | | | [place] [address] | + + + | Home Phone | | + + + | Preferred Language | Unknown | + + + | Marital Status | | + + + | Mosque Affiliation | 1038 | + + + | Race | Unknown | + + + | Ethnic Group | Unknown | + + + Author + + + | Author | [facility] | | | and [place] | + + + | Organization | [facility] | | | and [place] | + + + | Address | Unknown | + + + | Phone | Unavailable | + + + Support + + + + + | Name | Relationship | Address | Phone | + + + + + | Aileen Nelson | ECON | [address] | | | | | [place] | | | | | [address] | | + + + + + Care Team Providers + +------+ + | Care Derrick Worker Well Service Name | Role | Phone | + +------+ + | Jeircho Cao MD | PCP | | + +------+ + Reason for Referral Evaluate & Treat (Routine) + + + + + + + | Status | Reason | Specialty | Diagnoses / | Referred By | Referred To | | | | | Procedures | Contact | Contact | + + + + + + + | Pending | Specialty | Home Health | Diagnoses | Blair, | | | Review | Services | Services | Closed | MD Satya | | | | Required | | fracture of | [address] | | | | | | left hip, | [address] | | | | | | initial | [place] | | | | | | encounter | [id number] | | | | | | ([facility]) | Phone: | | | | | | | [phone] | | | | | | | Fax: | | | | | | | [phone] | | + + + + + + + Reason for Visit Auth/Cert +--------+--------+ + [...] | +--------+ + + + + | 10/10/ | Hospital | [facility] | Olivier, | Closed fracture of | | 2019 - | Encounter | [facility] [address] | MD Rafi [address] | left hip, initial | | | | [address] | [address] | encounter ([facility]) | | 10/18/ | | [place], [place] | [place] [address] | (Primary Dx); Closed | | 2019 | | [address] | [phone] | fracture of left | | | | [phone] | | hip, initial | | | | | Satya Pinto MD | encounter ([facility]) | | | | | [address] | | | | | | [place] [address] | | | | | | [phone] | | | | | | | [...] + + + + | Pulse | 50 | 10/18/2019 11:42 AM | | | | | PST | | + + + + + | Temperature | 36.9 C (98.4 F) | 10/18/2019 11:42 AM | | | | | PST | | + + + + + | Respiratory Rate | 16 | 10/18/2019 11:42 AM | | | | | PST | | + + + + + | Oxygen Saturation | 96% | 10/18/2019 11:42 AM | | | | | PST | | + + + + + | Inhaled Oxygen | - | - | | | Concentration | | | | + + + + + | Weight | 159.7 kg (352 lb 1.2 | 10/17/2019 8:24 PM | | | | oz) | PST [...] ICD/pacemaker who presented as a transfer from [facility] due to mechanical ground level f [...] initially brought to local ED, transferred to [facility] for orthopedic care. Workup included aCT [...] PT consulted and recommended SNF. Accepted at [facility]. On day of discharge felt well denying [...] Outstanding Issues: None Discharge Information: Follow up: [facility] [address] [id number] Current active diet order is: Diet Diet [...] 30 days. aka: SENOKOT Unchanged Medications Details xdkqzrth-yooyowibqzgg-zihuJZPfba 600-50-300 mg per tablet Take 1 tablet [...] mouth daily (after dinner). aka: REMERON Saw Needham 450 MG Caps Take 900 mg by mouth 2 times daily. spironolactone 50 mg tablet Take 50 mg by mouth Daily. aka: ALDACTONE tolnaftate 1% powder Apply topically 2 times daily. aka: TINACTIN Discontinued Medications oxyCODONE-acetaminophen 5-325 mg per tablet aka: PERCOCET Disposition: care home Condition: Fair Code Status: Full Code Discharge [...] Hydrogen Peroxide and 50% Water, use a [employer] n Q-tip and clean around the pins [...] on ce or twice a day. Wash NEMO hose in mild soap and water, rinse, [...] Units | 3 pen | 1 | /20 | | | (HUMALOG KWIKPEN) | under [...] + + +---------+ + + | Saw Needham 450 | Take 900 mg by mouth [...] Pinto MD - 10/17/2019 1:58 PM PST [facility] Service: Hospitalist Progress Note Pt: Sarthak Nelson [...] ICD/pacemaker who presents as a transfer from [facility] due to mechanical fall and resulta [...] initially brought to local ED, transferred to [facility] for orthopedic car e. Patient uses [...] complaints. Denies fevers, chest pain. Scheduled Medications: wpqwbbtv-zkwjokrvzrvw-quocYSJfrg 1 tablet Oral Daily allopurinol 100 mg [...] 159.7 kg (352 lb 1.2 oz) 10/14/19 2128 (!) 159.7 kg (352 lb [...] -- -- -- 38* IMAGING: Reviewed in EPIC, no new results. [...] notes for continuity of care purp ose Satya Sheriff MD - 0 10/16/2019 5:22 PM PST [facility] Service: Hospitalist Progress Note Pt: Sarthak Nelson [...] ICD/pacemaker who presents as a transfer from [facility] due to mechanical fall and resulta [...] initially brought to local ED, transferred to [facility] for orthopedic car e. Patient uses [...] complaints. Denies fevers, chest pain. Scheduled Medications: jwrvwgcu-fzimffzgwcsi-qheeRXSrho 1 tablet Oral Daily allopurinol 100 mg [...] 159.7 kg (352 lb 1.2 oz) 10/14/19 2128 (!) 159.7 kg (352 lb [...] -- -- 38* 42* IMAGING: Reviewed in [facility], no new results. PROBLEM LIST Principal Problem: [...] notes for continuity of care purp ose Satya Sheriff MD - 0 10/15/2019 1:19 PM PST [facility] Service: Hospitalist Progress Note Pt: Sarthak Nelson AGE/SEX: 68 y.o. male ROOM: [address] [place] [address] : 1950 PCP: Jericho Cao MD ADMIT DATE: 10/10/2019 TODAY'S DATE: 10/15/2019 Hospital Day/Hospital Course: LOS: 5 days Mr. Nelson is a 68-year-old male with a history of A. fib on chronic anticoagulation with eliquis, heart failure on chronic oxygen, TII DM, HTN, HIV, ischemic CVA, s/p ICD/pacemaker who presents as a transfer from [facility] due to mechanical fall and resulta [...] initially brought to local ED, transferred to [facility] for orthopedic car e. Patient uses [...] pain well controlled on meds. Scheduled Medications: xupvykxa-rvigoiyvcpwv-cizhTCGhzs 1 tablet Oral Daily allopurinol 100 mg [...] MD - 0 10/14/2019 9:41 AM PST [facility] Service: Hospitalist Progress Note Pt: Sarthak Nelson [...] ICD/pacemaker who presents as a transfer from [facility] due to mechanical fall and resulta [...] initially brought to local ED, transferred to [facility] for orthopedic car e. Patient uses [...] Patient denies chest pain, dyspnea. Scheduled Medications: icarabse-scjzbradvprh-rsgbQPKtjo 1 tablet Oral Daily allopurinol 100 mg [...] -- -- 38* 42* IMAGING: Reviewed in [facility], no new results. PROBLEM LIST Principal Problem: [...] for continuity of care purp ose Raven Su OTR /L - 10/13/2019 2:48 PM PST MISSED OCCUPATIONAL THERAPY VISIT: Therapy attempted to see the following patient today: Sarthak Nelson Missed Visit (patient unavailable)(with RN cares) The reason for the missed visit was: Unavailable with RN cares. Plan for follow up as pt ap propriate/ census permits. Satya Sheriff MD - 10/13/2019 11:00 AM PST [facility] Service: Hospitalist Progress Note Pt: Sarthak Nelson [...] ICD/pacemaker who presents as a transfer from [facility] due to mechanical fall and resulta [...] initially brought to local ED, transferred to [facility] for orthopedic car e. Patient uses [...] urine removed. He denies fevers. Scheduled Medications: devtmiwm-aojxvcukheub-timrKVHrlg 1 tablet Oral Daily allopurinol 100 mg [...] -- -- 38* 42* IMAGING: Reviewed in [facility], no new results. PROBLEM LIST Principal Problem: [...] notes for continuity of care purp ose Violetta, Tata Meng RN - 10/13/2019 5:17 AM PSTPt sleeping comfortably most of the night. No injuri es reported, straight cath x1 for 1800, and medicated x1 for pain. WCTM. End of chart check complete. Wendy Prescott RN aul Chino RN - 10/12/2019 5:32 PM PSTEnd of shift chart audit completedElectronically sign ed by Raul Chino RN at 10/12/2019 5:32 PM Satya Sheriff MD - 10/12/2019 4:03 PM PS T [facility] Service: Hospitalist Progress Note Pt: Sarthak Nelson AGE/SEX: 68 y.o. male ROOM: [facility] : 1950 PCP: Jericho Cao MD ADMIT DATE: 10/10/2019 TODAY'S DATE: 10/12/2019 Hospital Day/Hospital Course: LOS: 2 days Mr. Nelson is a 68-year-old male with a history of A. fib on chronic anticoagulation with eliquis, heart failure on chronic oxygen, TII DM, HTN, HIV, ischemic CVA, s/p ICD/pacemaker who presents as a transfer from [facility] due to mechanical fall and resulta [...] initially brought to local ED, transferred to [facility] for orthopedic car e. Patient uses [...] hear. Denies chest pain, dyspnea. Scheduled Medications: [MAR Hold] rsbthlnc-iublgxprxrvy-upvrXAKutl 1 tablet Oral Daily [Nov] allopurinol 100 mg Oral Daily [Nov] atorvaSTATin 80 mg Oral Nightly [Nov] finasteride [...] 10/12/2019 1448 Gross per 24 hour Intake 1998.28 ml Output 50 ml Net 1949.28 ml Patient Vitals for the past 96 hrs: Weight 10/11/19 0900 (!) 159.7 kg (352 lb [...] might be different from the or iginal. [facility] Service: Hospitalist Progress Note Pt: Sarthak Nelson AGE/SEX: 68 y.o. male ROOM: [facility]- : 1950 PCP: Jericho Cao MD ADMIT DATE: 10/10/2019 TODAY'S DATE: 10/11/2019 Hospital Day/Hospital Course: LOS: 1 day Mr. Nelson is a 68-year-old male with a history of A. fib on chronic anticoagulation with eliquis, heart failure on chronic oxygen, TII DM, HTN, HIV, ischemic CVA, s/p ICD/pacemaker who presents as a transfer from [facility] due to mechanical fall and resulta [...] initially brought to local ED, transferred to [facility] for orthopedic car e. Patient uses [...] 1.3 PTT 38* 42* IMAGING: Reviewed in [facility], no new results. PROBLEM LIST Principal Problem: [...] Sheriff MD - 10/10/2019 2:51 PM PST [facility] Service: Hospitalist Progress Note Pt: Sarthak Nelson AGE/SEX: 68 y.o. male ROOM: [address] [place] [address] : 1950 PCP: Jericho Cao MD ADMIT DATE: 10/10/2019 TODAY'S DATE: 10/10/2019 Hospital Day/Hospital Course: LOS: 0 days Mr. Nelson is a 68-year-old male with a history of A. fib on chronic anticoagulation with eliquis, heart failure on chronic oxygen, TII DM, HTN, HIV, ischemic CVA, s/p ICD/pacemaker who presents as a transfer from [facility] due to mechanical fall and resulta [...] initially brought to local ED, transferred to [facility] for orthopedic car e. Patient uses [...] regimen. Denies chest pain, dyspnea. Scheduled Medications: teqwtslo-xqrqfnqgiptt-cjefKYCtft 1 tablet Oral Daily allopurinol 100 mg [...] INR 1.3 PTT 42* IMAGING: Reviewed in [facility], no new results. PROBLEM LIST Principal Problem: [...] -ortho, Dr. Kelly, consulted, patient NPO at [place] for OR -prn analgesics and anti-emetics -maintenance [...] Nelson Date of Admission: 10/10/2019 Referring Provider: [facility] ED Reason for admission: Hip fracture, multiple medical comorbidities Chief Complaint: Fall, hip pain HPI: Patient of a 68-year-old male with a significant past medical history of A. fib on chronic Eliquis therapy, heart failure on chronic oxygen therapy, diabetes, hypertension, HIV, ische felipe CVA, status post ICD/pacemaker who comes as a transfer from [facility] due t o mechanical fall and [...] Patient was brought to the EDS and [facility] but due to patient's multiple comorbidi ties, the patient was transferred to [facility] for further management. Patient refers poor functional status at baseline, he does require a walker and not able to walk more than half a block due to dyspnea. Also, the patient refers 1-3 episodes of falli ng every week, and all of the events are related to lower extremity weakness. In the ED at [facility], the patient has remained hemodynamically stable. CT [...] Prior to Encounter Medication Sig Dispense Refill zczfgqqy-hsqnwunheesr-aatrLAOxot (TRIUMEQ) 600-50-300 mg per tablet Take 1 [...] h ours as needed for Pain. Saw Needham 450 MG CAPS Take 900 mg by [...] (from the past 24 hour(s)). Labs from [facility]: White blood cell 15.2, hemoglobin 17.6, [...] ICD/pacemaker who comes as a transfer from [facility] due t o mechanical fall and [...] IP CONSULT TO WOUND OSTO MY NURSE [facility] Service: Wound Care Consult Note Hospital Day: [...] movement. He was initially seen by his [facility] emergency department and after review of his medical issues [facility] [...] Prior to Admission Medication Sig Dispense Refill vaspqtfh-ytpaggjzyvcj-qdtuGVMrow (TRIUMEQ) 600-50-300 mg per tablet Take 1 tablet by [facility] Daily. Indications: HIV Disease allopurinol (ZYLOPRIM) [...] h ours as needed for Pain. Saw Needham 450 MG CAPS Take 900 mg by mouth 2 times daily. spironolactone (ALDACTONE) 50 mg tablet Take 50 mg by mouth Daily. tolnaftate (TINACTIN) 1% powder Apply topically 2 times daily. Scheduled Medications oeqdnatn-jiehsfeyyhsb-qwdlDQPepo 1 tablet Oral Daily allopurinol 100 mg [...] Care Physician: MD Tyrone Guidry MD 10/10/2019 doasif blakely in this encounter Miscellaneous Notes Plan of Care - Valentina Cool RN - 10/18/2019 12:46 PM PSTCare Cami gutierrez SNF/LTACH Final Discharge Plan Readmission Risk: Medium Discharge Plan Planned Disposition: [facility] - SNF Planned Destination: [facility] Kerrick of Choice: long term facility Facility Information: Address: [address] [place] [address] Fax: Community Care Provider: [place] Patient/Family Notified: yes Transportation will be provided by: ambulance([facility]) Transportation Date/Time: ambulance([facility]) 1500 Ride Contact: Name: LIZ Confirmed 3 Qualifying Midnights: yes SNF Authorization Received: yes PASRR Completed: yes Notes: Pt to discharge today 10/18/19 to SNF-[facility]. [facility] ) to facilitate transportation today 10/18/19 at 1500. CM contacted [place] office (*[id number]) for transportation authorization, they will follow up with [facility]. Mikaylati on/PASRR faxed to SNF. LAURENT/transfer paperwork signed and on chart. Pt to bring HIV medicatio n with him to facility. Pt is aware and in adherence to this plan. Electronically signed: Valentina Cool RN 10/18/2019 12:46 PMElectronically s igned by Valentina Cool RN at 10/18/2019 1:02 PM PSTSNF Transfer - Satya Pinto MD - 10/18/2019 12:33 PM PST SNF FACILITY TRANSFER ORDERS Patient Name: Sarthak Nelson Patient : 1950 Gender: male Date of Admission: 10/10/2019 Date of Discharge: 10/18/2019 Admitting Provider: Rafi Guerrero* Discharging Provider: Satya Pinto MD Consultants: Orthopedic surgery, Dr. Parsons and Dr. Kelly PCP: Jericho Cao SNF transferring to: [facility] Provider after transfer: PCP CODE STATUS: [x] Attempt CPR [] Do not resuscitate If patient is pulseless and not breathing, RN/RADIOLOGIC TECHNOLOGIST CHIEF may pronounce . Advanced Directives included: [] [...] 06/30/2018 INFLUENZA PF TRIVALENT(PED/ADOL/ADULT), PSKT 09/02/2015 INFLUENZA, [id number], UNSPECIFIED 10/03/2009 INFLUENZA, UNSPECIFIED FORMULATION 07/25/2014 Influenza, Whole 06/25/2003 PNEUMOCOCCAL CONJUGATE 13-VALENT (PCV13) 07/30/2015 PNEUMOCOCCAL POLYSACCHARIDE 23-VALENT (PPSV23) 08/02/2013 PNEUMOCOCCAL, UNSPECIFIED FORMULATION 08/02/2013 TDAP, (ADOL/ADULT) 08/05/2011 TETANUS TOXOID ABSORBED, (ADOL/ADULT) 04/12/2001 ZOSTER, 1 DOSE (ZOSTAVAX) 08/05/2011 Diet: [x] As tolerated EXPLORATION GEOLOGIST may upgrade or downgrade diet as condition [...] OT Evaluation & Management for: deconditioning [] EXPLORATION GEOLOGIST Evaluation &Management for: [] Other: Wound/Skin Care: [...] daily as needed for Constipation. By: Satya Pinto MD Quant: 320 mL polyethylene glycol packet Take 1 diluted packet by mouth Daily as needed for up to 30 days. aka: MIRALAX By: Satya Pinto MD Quant: 30 packet senna 8.6 mg tablet Take 2 tablets by mouth every morning for 30 days. aka: SENOKOT By: Satya Pinto MD Quant: 60 tablet Unchanged Medications Details Order Next Dose Due ayjnxoaw-jrkxvmxnufjf-cacuYGIrxn 600-50-300 mg per tablet Take 1 tablet [...] needed for Pain. aka: NORCO By: Satya Pinot MD Quant: 50 tablet insulin glargine 100 [...] Pramod Salinas MD Quant: 30 tablet Saw Needham 450 MG Caps Take 900 mg by mouth 2 times daily. spironolactone 50 mg tablet Take 50 mg by mouth Daily. aka: ALDACTONE tolnaftate 1% powder Apply topically 2 times daily. aka: TINACTIN Discontinued Medications oxyCODONE-acetaminophen 5-325 mg per tablet aka: PERCOCET I, Satya Pinto MD, certify that post hospital long term care is medically necessary on a continuing basis for any of the conditions for which he/she received care during this hospitalization. Check one: [x] Skilled [] Intermediate Additional Orders/Instructions: Physician's signature: Satya Pinto MD 10/18/2019 12:33 PM [facility] USE ONLY: [] Admitting [...] Outcome: Progressing Working with ancillary staff and Development Editor to identify discharge barriers and meet patie nt's discharge needs Psychosocial Needs Goal: Patient and family demonstrates the ability to cope with surgery/illness/diagnosis Outcome: Progressing Patient able to verbalize needs appropriately and demonstrates adequate coping skills. Fall Prevention Goal: No Falls during Hospital Stay Outcome: Progressing Maintain bed in low, locked position at all times. [place] patient and family to hospital surroundings. Provide [...] 2 hours [facility]. lan Natacha Nettles RN - 10/18/2019 5:39 AM PSTVSS at this time, pain controlled with prn tylenol. P atient had 1 BM this shift and two large voids. Patient complaining of positional discomfort , assisted with repositioning of LLE multiple times throughout shift. End of Shift review complete. 5 :39 AM PSTPlan Natalia Nettles RN - 10/17/2019 11:56 PM PST Problem: [...] progressing lan of Care - Jorge Guzman, IRON MOLDER HELPER - 10/17/2019 2:14 PM PST Physical Therapy Treatment Note Recommended discharge disposition: long term facility Post discharge physical therapy recommendation: will [...] 4 Bed Mobility Roll Right, Level of Arthur: moderate assist (50% patient effort) Supine to Sit, Level of Arthur: maximal assist (25% patient effort), 2 person assist required Sidelying to Sit, Level of Arthur: dependent ( less than 25% patient effort), 2 perso n assist required Transfers Bed-Chair, Level of Arthur: moderate assist (50% patient effort), 2 person assist req uired Chair-Bed, Level of Arthur: ([facility]) Acl-Rocgy-Puu, Assistive Device: gait belt, other (see comments)([facility]) Sit-Stand, Level of Arthur: moderate assist (50% patient effort), maximal assist (25% patient effort), 2 person assist required Stand-Sit, Level of Arthur: moderate assist (50% patient effort), 2 person assist req uired Noh-Bsgcr-Goj, Assistive Device: gait belt, other (see comments)([facility]) Safety Issues: balance decreased during turns, step length decreased, weight-shifting abili ty decreased Impairments: strength decreased, impaired balance, pain Goals Reflects last filed data and may be from multiple contributors. All Bed Mobility Goal Most Recent Value LTG Status new at 10/13/2019 0730 LTG Arthur Level minimum assist (75% patient effort) at 10/13/2019 0730 LTG Assistive Device bed rails, HOB elevated, overhead trapeze [he has these in his home] at 10/13/2019 0730 All Transfers Goal Most Recent Value LTG Status new at 10/13/2019 0730 LTG Arthur Level minimum assist (75% patient effort) at 10/13/2019 0730 LTG Assistive Device bariatric, 2 wheeled walker (FWW) at 10/13/2019 0730 Gait Goal Most Recent Value LTG Status new at 10/13/2019 0730 LTG Arthur Level minimum assist (75% patient effort) at 10/13/2019 0730 LTG Assistive Device bariatric, 2 wheeled walker (FWW) at 10/13/2019 0730 LTG Distance (feet) 200ft at 10/13/2019 0730 Stair Goal Most Recent Value LTG Status new at 10/13/2019 0730 LTG Arthur Level minimum assist (75% patient effort) at 10/13/2019 0730 LTG Assistive Device 2 rails at 10/13/2019 0730 LTG Number of Stairs 2 at 10/13/2019 0730 lan of Gregorio Arango RN - 10/17/2019 12:50 PM PST...........Care Management [...] care. Pt is willing to go to [place], [place] 1500: CM returned Vipul's call [phone] to inform her pt has agreed to go to her [facility], he informed CM his is presently receiving therapy there, awaiting her call back. 1524: [facility] is available for help with DCP [phone] ext [phone]. Electronically signed: GREGORIO PINEDA RN 10/17/2019 12:50 [...] position. Chart check complete. Muriel Quinn RN 10/16/2019 6:38 PM lan of [...] moved back to the bed. lan of Care - Silvina, Valentina Delgado RN - 020 2:40 PM PSTCare Management Follow-Up Readmission Risk: Medium Current Discharge Plan Anticipated Discharge Disposition: [facility] Facility Expected DC Date: TBD Barriers to Discharge: Pt not medically ready for discharge Steps Taken Toward Discharge: CM attended MD rounding for Pt followup and discharge planni ng Next Steps: CM filled out [facility] form and faxed to [place] Community Support Services Current Outpt/Agency/Support Groups: other (see comments)(Home health aid /caregivers) Community Agency Name: [employer] Other Resources: freedom of choice Discharge Transportation Transportation Needs: family or friend will provide Notes: CM attended MD rounding for Pt followup and discharge planning. Per MD, Pt agreeable to SNF placement. CM met with Pt secondary to MD information. Per Pt request, Referral to b e sent to [facility]. [facility]EC form completed, and will follow up with Sharon Berman, [facility] through the [place] ( fax# [phone]) for further SNF referrals. Pt in ad herence to this plan. CM will continue to follow for discharge planning, pending clinical co urse. Electronically signed: Valentina Cool RN 10/16/2019 2:40 PM lan of Care - Jorge Shankar PTA - 10/16/2019 10:08 AM PSTFormatting of this note mi ght be different from the original. Physical Therapy Treatment Note Recommended discharge disposition: long term facility Post discharge physical therapy recommendation: will [...] 4 Bed Mobility Roll Right, Level of Arthur: moderate assist (50% patient effort) Sidelying to Sit, Level of Arthur: dependent ( less than 25% patient effort), 2 perso n assist required Transfers Bed-Chair, Level of Arthur: moderate assist (50% patient effort) Wcf-Rkikt-Hko, Assistive Device: gait belt, other (see comments)([facility]) Sit-Stand, Level of Arthur: 2 person assist required, moderate assist (50% patient ef fort) Stand-Sit, Level of Arthur: 2 person assist required, moderate assist (50% patient ef fort) Xrf-Ahrdw-Xda, Assistive Device: gait belt, other (see comments)([facility]) Safety Issues: balance decreased during turns, step length decreased, weight-shifting abili ty decreased Impairments: strength decreased, impaired balance, pain Goals Reflects last filed data and may be from multiple contributors. All Bed Mobility Goal Most Recent Value LTG Status new at 10/13/2019 0730 LTG Arthur Level minimum assist (75% patient effort) at 10/13/2019 0730 LTG Assistive Device bed rails, HOB elevated, overhead trapeze [he has these in his home] at 10/13/2019 0730 All Transfers Goal Most Recent Value LTG Status new at 10/13/2019 0730 LTG Arthur Level minimum assist (75% patient effort) at 10/13/2019 0730 LTG Assistive Device bariatric, 2 wheeled walker (FWW) at 10/13/2019 07 Gait Goal Most Recent Value LTG Status new at 10/13/2019729 LTG Arthur Level minimum assist (75% patient effort) at 10/13/2019 0730 LTG Assistive Device bariatric, 2 wheeled walker (FWW) at 10/13/2019 07 LTG Distance (feet) 200ft at 10/13/2019729 Stair Goal Most Recent Value LTG Status new at 10/13/201930 LTG Arthur Level minimum assist (75% patient effort) at 10/13/2019 0730 LTG Assistive Device 2 rails at 10/13/2019729 LTG Number of Stairs 2 at 10/13/2019729 lan of Care - Dottie Albert, OTR/L - 10/16/2019 9:37 AM PST Occupational Therapy Initial Evaluation Note Recommended discharge disposition: long term facility Post discharge occupational therapy recommendation: will [...] this evaluation pt was co treatment with [employer] HELPER d/t skilled need fo r 2 people to assist with transfer training and ensure pt safety. 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, pt with several falls in [...] Body Dressing Assessment/Training LB Dressing, Level of Arthur: dependent ( less than 25% patient effort) Assistive Device: none LB Dressing Assess/Train, Position: sitting LB Dressing Impairments: strength decreased, impaired balance, ROM decreased, decreased fle xibility Bed Mobility Additional Documentation: sidelying to/from sit, rolling Roll Right, Level of Arthur: moderate assist (50% patient effort) Sidelying to Sit, Level of Arthur: dependent ( less than 25% patient effort), 2 perso n assist required Safety Issues: decreased use of arms for pushing/pulling, decreased use of legs for bridgin g/pushing Impairments: strength decreased Transfers Additional Documentation: bed to/from chair Bed-Chair, Level of Arthur: moderate assist (50% patient effort) Zvb-Dqfhh-Ldo, Assistive Device: gait belt, other (see comments)(high platform walker) Sit-Stand, Level of Arthur: 2 person assist required, set up required, [...] LTG Status new at 10/16/2019 0937 LTG Arthur Level maximum assist (25% patient effort) at [...] has severe abdominal discomfort/co nstipation. lan of [facility] - Sridevi Ortiz RN - 10/14/2019 1:39 PM PST Problem: Adult Inpatient Plan of Care Goal: Plan of Care Review Outcome: Ongoing, progressing Plan of care reviewed with patient, questions encouraged and answered. lan of Erik - Abdoulaye Franco PTA - 10/14/2019 1:06 PM PST Physical Therapy Treatment Note Recommended discharge disposition: long term facility Post discharge physical therapy recommendation: Equipment [...] to chair Bed Mobility Scoot/Bridge, Level of Arthur: moderate assist (50% patient effort) Supine to Sit, Level of Arthur: moderate assist (50% patient effort) Sit to Supine, Level of Arthur: maximal assist (25% patient effort) Safety Issues: decreased use of arms for pushing/pulling, decreased use of legs for bridgin g/pushing Impairments: strength decreased Transfers Bed-Chair, Level of Arthur: dependent ( less than 25% patient effort) Lkx-Efgze-Rrd, Assistive Device: mechanical lift Exercises Bed exercises: ankle pumps, quad sets, glut sets, hip abduction/adduction, heel slides Goals Reflects last filed data and may be from multiple contributors. All Bed Mobility Goal Most Recent Value LTG Status new at 10/13/2019 0730 LTG Arthur Level minimum assist (75% patient effort) at 10/13/2019 0730 LTG Assistive Device bed rails, HOB elevated, overhead trapeze [he has these in his home] at 10/13/2019 0730 All Transfers Goal Most Recent Value LTG Status new at 10/13/2019 0730 LTG Arthur Level minimum assist (75% patient effort) at 10/13/2019 0730 LTG Assistive Device bariatric, 2 wheeled walker (FWW) at 10/13/2019 0730 Gait Goal Most Recent Value LTG Status new at 10/13/2019 0730 LTG Arthur Level minimum assist (75% patient effort) at 10/13/2019 0730 LTG Assistive Device bariatric, 2 wheeled walker (FWW) at 10/13/2019 0730 LTG Distance (feet) 200ft at 10/13/2019 0730 Stair Goal Most Recent Value LTG Status new at 10/13/2019 0730 LTG Arthur Level minimum assist (75% patient effort) at [...] Quinn RN 10/13/2019 7:34 PM lan of Erik - Ra bryce Quinn RN - 10/13/2019 2:34 PM PST Problem: [...] comments)(Home health aid /caregivers) Community Agency Name: [employer] Other Resources: Discharge Transportation Transportation Needs: family or friend will provide Notes: CM met with Pt secondary to SNF refusal. Pt stated he wanted to go home, that he had Home health aid and caregivers to assist him. CM discussed HH options. Per Pt request, CM t o send referral to Dr. River office (fax# [phone]) as well as [place] HH specialist Tram Vance ( fax # [phone]) once order placed by Hospitalist. Pt to contact [facility] for evaluation for increased caregiver hours post surgery. Pt in adherence to this plan. P t to be here through the weekend. CM will continue to follow for discharge planning, pending clinical course. Electronically signed: Valentina Cool RN 10/13/2019 2:07 PM'Electronically s igned by Valentina Cool RN at 10/13/2019 2:11 PM PSTPlan of Erik - Marley Patterson, PT - 10/13/2019 10:15 AM PST Physical Therapy Treatment Note Recommended discharge disposition: long term facility(has had 2 bad experienced in pr [...] bed rails, HOB elevated Scoot/Bridge, Level of Arthur: verbal cues required, moderate assist (50% patient eff ort) Supine to Sit, Level of Arthur: 2 person assist required(mechanical) Sit to Supine, Level of Arthur: maximal assist (25% patient effort) Safety Issues: decreased use of legs for bridging/pushing, decreased use of arms for pushin g/pulling(L-side) Transfers Transfers Comments: unable to assess at this time Additional Documentation: sit to/from stand, bed to/from chair Bed-Chair, Level of Arthur: (mechanical lift) Chair-Bed, Level of Arthur: (mechanical lift) Drf-Uhyjf-Lyn, Assistive Device: mechanical lift Sit-Stand, Level of Arthur: 2 person assist required, verbal cues required(raise bed height) Stand-Sit, Level of Arthur: 2 person assist required, verbal cues required Rqo-Svvub-Cup, Assistive Device: bariatric, 2 wheeled walker (FWW), [...] LTG Status new at 10/13/2019 0730 LTG Arthur Level minimum assist (75% patient effort) at 10/13/2019 0730 LTG Assistive Device bed rails, HOB elevated, overhead trapeze [he has these in his home] at 10/13/2019 0730 All Transfers Goal Most Recent Value LTG Status new at 10/13/2019 0730 LTG Arthur Level minimum assist (75% patient effort) at 10/13/2019 0730 LTG Assistive Device bariatric, 2 wheeled walker (FWW) at 10/13/2019 0730 Gait Goal Most Recent Value LTG Status new at 10/13/2019 0730 LTG Arthur Level minimum assist (75% patient effort) at 10/13/2019 0730 LTG Assistive Device bariatric, 2 wheeled walker (FWW) at 10/13/2019 0730 LTG Distance (feet) 200ft at 10/13/2019 0730 Stair Goal Most Recent Value LTG Status new at 10/13/2019 0730 LTG Arthur Level minimum assist (75% patient effort) at 10/13/2019 0730 LTG Assistive Device 2 rails at 10/13/2019 0730 LTG Number of Stairs 2 at 10/13/2019 0730 lan of Care - Marley Fraser PT - 10/13/2019 7:30 AM PST Physical Therapy Initial Evaluation Note Recommended discharge disposition: home with assist(he only wants to go home-has 12/04 alix ahuja) Post discharge physical therapy recommendation: family involved/supportive, [...] HOB elevated, bed rails Scoot/Bridge, Level of Arthur: verbal cues required, minimal assist (75% patient effo rt) Supine to Sit, Level of Arthur: 2 person assist required, maximal assist (25% patient effort), verbal cues required Sit to Supine, Level of Arthur: maximal assist (25% patient effort), verbal cues [...] LTG Status new at 10/13/2019 0730 LTG Arthur Level minimum assist (75% patient effort) at 10/13/2019 0730 LTG Assistive Device bed rails, HOB elevated, overhead trapeze [he has these in his home] at 10/13/2019 0730 All Transfers Goal Most Recent Value LTG Status new at 10/13/2019 0730 LTG Arthur Level minimum assist (75% patient effort) at 10/13/2019 0730 LTG Assistive Device bariatric, 2 wheeled walker (FWW) at 10/13/2019 0730 Gait Goal Most Recent Value LTG Status new at 10/13/2019 0730 LTG Arthur Level minimum assist (75% patient effort) at 10/13/2019 0730 LTG Assistive Device bariatric, 2 wheeled walker (FWW) at 10/13/2019 0730 LTG Distance (feet) 200ft at 10/13/2019 0730 Stair Goal Most Recent Value LTG Status new at 10/13/2019 0730 LTG Arthur Level minimum assist (75% patient effort) at [...] of clutter. WCTM. Wendy Prescott RN p No Hui Chisholm MD - 10/12/2019 2:56 PM [facility] Service: Orthopedic Surgery Operative Note Pre-operative Diagnosis: L hip IT fx Post-operative Diagnosis: Same Procedure(s): L hip cephalomedullary nailing PDF< 1 hr Surgeon: Hui Parsons MD Critical Care Unit Manager(s): n/a Anesthesia: General endotrachial anesthesia Estimated Blood [...] up to a size 13 and a [id number] mm nail was selected. This was advanced [...] interlocking screw(s ) was placed using perfect twin hills technique. Wounds were copiously irrigated with normal [...] free from falls and injury while in [facility] lan of Anthony Saldivar [place], Wendy Meng RN - 10/12/2019 4:44 AM PST Problem: Adult Inpatient Plan of Care Goal: Plan of Care Review Outcome: Ongoing, progressing Pt's VSS, pain under control, passing gas, and having multiple bowel movements. Call light within reach and no injuries reported. Non-slip socks on, bed in lowest position, and room free of clutter. WCTM. Wendy Prescott RN lan of Erik Muriel Quinn RN - 10/11/2019 7:56 PM [...] Goal: Absence of Fall and Fall-Related Injury 10/11/2019151 by Joann Meng RN Outcome: Ongoing, progressing Pt tolerating pain well with PO pain meds. Remains free from falls and injury. Calls for he lp appropriately as needed. Joann Meng RN 10/11/2019 0153 lan of Erik Staci Cotter RN - 10/10/2019 6:41 PM PSTPatient end of shift chart check complete. Dimas Quintanilla RN lan of Valentina Allen RN - 10/10/2019 1:56 PM PSTCare Management [...] c aregivers ) Functional Status: Has live-in resident care provider. can do some ADL's independently but has [...] Services Anticipated at Discharge: home health care, long term facility Equipment Used at Home: 4 wheeled walker (4WW), cane, straight, single point, oxygen Equipment Needed after Discharge: none Durable Medical Equipment Provider: [facility] Needs: other (see comments)(Mundo Flower [place]) Transportation Needs: family or friend will provide Initial Plan Anticipated Discharge Disposition: home with assist, home with home health, skilled nursin g facility Expected DC Date: TBD Steps Taken Toward Discharge: Initial admission assessment completed Next Steps: CM will continue to follow for discharge planning needs Notes: Pt from home, lives with a in home health aid, that is not through a [facility] as well as caregivers 21hrs/week through [employer] in [place]. [employer] contact [phone]. Pt states can do some ADL's independently but has caregivers there to assist with ADL's as well as cooking, cleaning, and bathing. Pt DME's: 4WW, single point cane, stick, and oxyg en. Oxygen through [facility]. Pt currently taking Eliquis and denies dialysis. Pt is [facility] member a nd 100% connected, if Pt needs increased caregivers hours, Pt will need to be re-evaluated f or increase through [employer]/[place]. No other needs identified at this time, CM will continue to f ollow for discharge planning needs, pending clinical course. Electronically signed: Valentina Cool RN 10/10/2019 1:56 PM lan of Erik - Staci Quintanilla RN - 10/10/2019 12:30 [...] Nohemy Denson RN - 10/10/2019 5:15 AM PSTDrAnmol Bañuelos notified of critical K+ 6.3 with new orders. EKG completed. Notified Sarmad of results, stating to continue to monitor and t reat hyperkalemia. [facility] Tyrone Kelly MD - 10/10/2019 3:33 [...] eliquis administration -bedrest -pain control lan of [facility] - Nohemy Norman RN - 10/10/2019 2:59 [...] | | | | | encounter ([facility]) | | + + +--------+ + + [...] + +--------+ + + + | FL Sarah ARM | Routin | 10/12/2019 | | [...] Testing | 65 - 99 mg/dL | [facility] | | | POC | performed at [facility];[address] | | LABORATORY | | | | [address];[place] | | | | | | [address] | | | | + + + + + + + + | Specimen | + + | | + + + + + + + | Performing | Address | City/State/Zipcode | Phone Number | | Organization | | | | + + + + + | [facility] | [address] | [place] [address] | [phone] | + + + + + POC Glucose (10/18/2019 8:26 AM PST) + + + + + + | Component | Value | Ref Range | Performed | Pathologist | | | | | At | Signature | + + + + + + | Glucose, | 170 (H)Comment: Testing | 65 - 99 mg/dL | [facility] | | | POC | performed at [facility];[address] | | LABORATORY | | | | [address];[place] | | | | | | [address] | | | | + + + + + + + + | Specimen | + + | | + + + + + + + | Performing | Address | City/State/Zipcode | Phone Number | | Organization | | | | + + + + + | [facility] | [address] | [place] [address] | [phone] | + + + + + POC Glucose (10/17/2019 8:51 PM PST) + + + + + + | Component | Value | Ref Range | Performed | Pathologist | | | | | At | Signature | + + + + + + | Glucose, | 172 (H)Comment: Testing | 65 - 99 mg/dL | [facility] | | | POC | performed at [facility];[address] | | LABORATORY | | | | [address];[place], [place] | | | | | | [address] | | | | + + + + + + + + | Specimen | + + | | + + + + + + + | Performing | Address | City/State/Zipcode | Phone Number | | Organization | | | | + + + + + | [facility] | [address] | [place] [address] | [phone] | + + + + + POC [...] | | | POC | performed at [facility];[address] | | LABORATORY | | | | [address];[place], [place] | | | | | | [address] | | | | + + + + + + + + | Specimen | + + | | + + + + + + + | Performing | Address | City/State/Zipcode | Phone Number | | Organization | | | | + + + + + | [facility] | [address] | [place] [address] | [phone] | + + + + + POC Glucose (10/17/2019 12:05 PM PST) + + + + + + | Component | Value | Ref Range | Performed | Pathologist | | | | | At | Signature | + + + + + + | Glucose, | 190 (H)Comment: Testing | 65 - 99 mg/dL | [facility] | | | POC | performed at [facility];[address] | | LABORATORY | | | | [address];[place] | | | | | | [address] | | | | + + + + + + + + | Specimen | + + | | + + + + + + + | Performing | Address | City/State/Zipcode | Phone Number | | Organization | | | | + + + + + | [facility] | [address] | [place] [address] | [phone] | + + + + + POC Glucose (10/17/2019 8:37 AM PST) + + + + + + | Component | Value | Ref Range | Performed | Pathologist | | | | | At | Signature | + + + + + + | Glucose, | 129 (H)Comment: Testing | 65 - 99 mg/dL | [facility] | | | POC | performed at [facility];[address] | | LABORATORY | | | | [address];[place], [place] | | | | | | [address] | | | | + + + + + + + + | Specimen | + + | | + + + + + + + | Performing | Address | City/State/Zipcode | Phone Number | | Organization | | | | + + + + + | [facility] | [address] | [place] [address] | [phone] | + + + + + POC [...] | | | POC | performed at [facility];[address] | | LABORATORY | | | | [address];[place], [place] | | | | | | [address] | | | | + + + + + + + + | Specimen | + + | | + + + + + + + | Performing | Address | City/State/Zipcode | Phone Number | | Organization | | | | + + + + + | [facility] | [address] | [place] [address] | [phone] | + + + + + POC Glucose (10/16/2019 9:01 PM PST) + + + + + + | Component | Value | Ref Range | Performed | Pathologist | | | | | At | Signature | + + + + + + | Glucose, | 244 (H)Comment: Testing | 65 - 99 mg/dL | [facility] | | | POC | performed at [facility];[address] | | LABORATORY | | | | [address];[place] | | | | | | [address] | | | | + + + + + + + + | Specimen | + + | | + + + + + + + | Performing | Address | City/State/Zipcode | Phone Number | | Organization | | | | + + + + + | [facility] | [address] | [place] [address] | [phone] | + + + + + POC Glucose (10/16/2019 4:22 PM PST) + + + + + + | Component | Value | Ref Range | Performed | Pathologist | | | | | At | Signature | + + + + + + | Glucose, | 209 (H)Comment: Testing | 65 - 99 mg/dL | [facility] | | | POC | performed at [facility];[address] | | LABORATORY | | | | [address];[place] | | | | | | [address] | | | | + + + + + + + + | Specimen | + + | | + + + + + + + | Performing | Address | City/State/Zipcode | Phone Number | | Organization | | | | + + + + + | [facility] | [address] | [place] [address] | [phone] | + + + + + POC [...] | | | POC | performed at [facility];[address] | | LABORATORY | | | | [address];[place] | | | | | | [address] | | | | + + + + + + + + | Specimen | + + | | + + + + + + + | Performing | Address | City/State/Zipcode | Phone Number | | Organization | | | | + + + + + | [facility] | [address] | [place] [address] | [phone] | + + + + + POC Glucose (10/16/2019 8:01 AM PST) + + + + + + | Component | Value | Ref Range | Performed | Pathologist | | | | | At | Signature | + + + + + + | Glucose, | 146 (H)Comment: Testing | 65 - 99 mg/dL | [facility] | | | POC | performed at [facility];[address] | | LABORATORY | | | | [address];[place] | | | | | | [address] | | | | + + + + + + + + | Specimen | + + | | + + + + + + + | Performing | Address | City/State/Zipcode | Phone Number | | Organization | | | | + + + + + | [facility] | [address] | [place] [address] | [phone] | + + + + + POC Glucose (10/15/2019 8:59 PM PST) + + + + + + | Component | Value | Ref Range | Performed | Pathologist | | | | | At | Signature | + + + + + + | Glucose, | 159 (H)Comment: Testing | 65 - 99 mg/dL | [facility] | | | POC | performed at [facility];[address] | | LABORATORY | | | | [address];[place] | | | | | | [address] | | | | + + + + + + + + | Specimen | + + | | + + + + + + + | Performing | Address | City/State/Zipcode | Phone Number | | Organization | | | | + + + + + | [facility] | [address] | [place] [address] | [phone] | + + + + + POC [...] | | | POC | performed at [facility];[address] | | LABORATORY | | | | [address];[place], [place] | | | | | | [address] | | | | + + + + + + + + | Specimen | + + | | + + + + + + + | Performing | Address | City/State/Zipcode | Phone Number | | Organization | | | | + + + + + | [facility] | [address] | [place] [address] | [phone] | + + + + + POC [...] | | | POC | performed at [facility];[address] | | LABORATORY | | | | [address];[place] | | | | | | [address] | | | | + + + + + + + + | Specimen | + + | | + + + + + + + | Performing | Address | City/State/Zipcode | Phone Number | | Organization | | | | + + + + + | [facility] | [address] | [place] [address] | [phone] | + + + + + POC Glucose (10/15/2019 7:36 AM PST) + + + + + + | Component | Value | Ref Range | Performed | Pathologist | | | | | At | Signature | + + + + + + | Glucose, | 167 (H)Comment: Testing | 65 - 99 mg/dL | [facility] | | | POC | performed at [facility];[address] | | LABORATORY | | | | [address];[place] | | | | | | [address] | | | | + + + + + + + + | Specimen | + + | | + + + + + + + | Performing | Address | City/State/Zipcode | Phone Number | | Organization | | | | + + + + + | [facility] | [address] | [place] [address] | [phone] | + + + + + Basic [...] | | | | | performed at [facility], [address] | | | | | | [facility], | | | | | | [place] [address] | | | | + + + + + + + + | Specimen | + + | Blood | + + + + + + + | Performing | Address | City/State/Zipcode | Phone Number | | Organization | | | | + + + + + | [facility] | [address] | [place] [address] | [phone] | + + + + + POC [...] | | | POC | performed at [facility];[address] | | LABORATORY | | | | [address];[place], [place] | | | | | | [address] | | | | + + + + + + + + | Specimen | + + | | + + + + + + + | Performing | Address | City/State/Zipcode | Phone Number | | Organization | | | | + + + + + | [facility] | [address] | [place] [address] | [phone] | + + + + + POC Glucose (10/14/2019 4:51 PM PST) + + + + + + | Component | Value | Ref Range | Performed | Pathologist | | | | | At | Signature | + + + + + + | Glucose, | 136 (H)Comment: Testing | 65 - 99 mg/dL | [facility] | | | POC | performed at [facility];[address] | | LABORATORY | | | | [address];[place] | | | | | | [address] | | | | + + + + + + + + | Specimen | + + | | + + + + + + + | Performing | Address | City/State/Zipcode | Phone Number | | Organization | | | | + + + + + | [facility] | [address] | [place] [address] | [phone] | + + + + + POC Glucose (10/14/2019 12:01 PM PST) + + + + + + | Component | Value | Ref Range | Performed | Pathologist | | | | | At | Signature | + + + + + + | Glucose, | 118 (H)Comment: Testing | 65 - 99 mg/dL | [facility] | | | POC | performed at [facility];[address] | | LABORATORY | | | | [address];[place] | | | | | | [address] | | | | + + + + + + + + | Specimen | + + | | + + + + + + + | Performing | Address | City/State/Zipcode | Phone Number | | Organization | | | | + + + + + | [facility] | [address] | [place] [address] | [phone] | + + + + + POC [...] | | | POC | performed at [facility];[address] | | LABORATORY | | | | [address];[place] | | | | | | [address] | | | | + + + + + + + + | Specimen | + + | | + + + + + + + | Performing | Address | City/State/Zipcode | Phone Number | | Organization | | | | + + + + + | [facility] | [address] | [place] [address] | [phone] | + + + + + Protime INR (10/14/2019 4:37 AM PST) + + + + + + | Component | Value | Ref Range | Performed | Pathologist | | | | | At | Signature | + + + + + + | INR | 1.1Comment: REFERENCE | | [facility] | | | [...] | | | | | performed at [facility];[address] | | | | | | [address];[place] | | | | | | [address] | | | | + + + + + + + + | Specimen | + + | Blood | + + + + + + + | Performing | Address | City/State/Zipcode | Phone Number | | Organization | | | | + + + + + | [facility] | [address] | [place] [address] | [phone] | + + + + + Basic [...] | | | | | performed at [facility], [address] | | | | | | [address] [facility], | | | | | | [place] [address] | | | | + + + + + + + + | Specimen | + + | Blood | + + + + + + + | Performing | Address | City/State/Zipcode | Phone Number | | Organization | | | | + + + + + | [facility] | [address] | [place] [address] | [phone] | + + + + + POC [...] | | | POC | performed at [facility];[address] | | LABORATORY | | | | [address];[place] | | | | | | [address] | | | | + + + + + + + + | Specimen | + + | | + + + + + + + | Performing | Address | City/State/Zipcode | Phone Number | | Organization | | | | + + + + + | [facility] | [address] | [place] [address] | [phone] | + + + + + Basic [...] 37 (L)Comment: GFR <60: | >60 | [facility] | | | GFR | CHRONIC KIDNEY [...] | | | | | | [facility] traceable | | | | | | equation.Testing | | | | | | performed at [facility];[address] | | | | | | [address] [facility];[place], [place] | | | | | | [address] | | | | + + + + + + + + | Specimen | + + | Blood | + + + + + + + | Performing | Address | City/State/Zipcode | Phone Number | | Organization | | | | + + + + + | [facility] | [address] | [place] [address] | [phone] | + + + + + POC [...] | | | POC | performed at [facility];[address] | | LABORATORY | | | | [address];[place] | | | | | | [address] | | | | + + + + + + + + | Specimen | + + | | + + + + + + + | Performing | Address | City/State/Zipcode | Phone Number | | Organization | | | | + + + + + | [facility] | [address] | [place] [address] | [phone] | + + + + + POC [...] | | | POC | performed at [facility];[address] | | LABORATORY | | | | [address];[place], [place] | | | | | | [address] | | | | + + + + + + + + | Specimen | + + | | + + + + + + + | Performing | Address | City/State/Zipcode | Phone Number | | Organization | | | | + + + + + | [facility] | [address] | [place] [address] | [phone] | + + + + + POC [...] | | | POC | performed at [facility];[address] | | LABORATORY | | | | [address];[place] | | | | | | [address] | | | | + + + + + + + + | Specimen | + + | | + + + + + + + | Performing | Address | City/State/Zipcode | Phone Number | | Organization | | | | + + + + + | [facility] | [address] | [place] [address] | [phone] | + + + + + Protime INR (10/13/2019 5:15 AM PST) + + + + + + | Component | Value | Ref Range | Performed | Pathologist | | | | | At | Signature | + + + + + + | INR | 1.0Comment: REFERENCE | | [facility] | | | | RANGE:0.9 - 1.2 [...] | | | | | performed at [facility];[address] | | | | | | [address];[place] | | | | | | [address] | | | | + + + + + + + + | Specimen | + + | Blood | + + + + + + + | Performing | Address | City/State/Zipcode | Phone Number | | Organization | | | | + + + + + | [facility] | [address] | [place] [address] | [phone] | + + + + + CBC [...] at | | | | | | [facility], [address] [place] [address] | | | | | | [place], [place] | | | | | | [address] | | | | + + + + + + + + | Specimen | + + | Blood | + + + + + + + | Performing | Address | City/State/Zipcode | Phone Number | | Organization | | | | + + + + + | [facility] | [address] | [place] [address] | [phone] | + + + + + Basic [...] 40 (L)Comment: GFR <60: | >60 | [facility] | | | GFR | CHRONIC KIDNEY [...] | | | | | performed at [facility], [address] | | | | | | [facility], | | | | | | [place] [address] | | | | + + + + + + + + | Specimen | + + | Blood | + + + + + + + | Performing | Address | City/State/Zipcode | Phone Number | | Organization | | | | + + + + + | [facility] | [address] | [place] [address] | [phone] | + + + + + POC Glucose (10/13/2019 4:45 AM PST) + + + + + + | Component | Value | Ref Range | Performed | Pathologist | | | | | At | Signature | + + + + + + | Glucose, | 199 (H)Comment: Testing | 65 - 99 mg/dL | [facility] | | | POC | performed at [facility];[address] | | LABORATORY | | | | [address];[place] | | | | | | [address] | | | | + + + + + + + + | Specimen | + + | | + + + + + + + | Performing | Address | City/State/Zipcode | Phone Number | | Organization | | | | + + + + + | [facility] | [address] | [place] [address] | [phone] | + + + + + POC Glucose (10/12/2019 8:29 PM PST) + + + + + + | Component | Value | Ref Range | Performed | Pathologist | | | | | At | Signature | + + + + + + | Glucose, | 253 (H)Comment: Testing | 65 - 99 mg/dL | [facility] | | | POC | performed at [facility];[address] | | LABORATORY | | | | [address];[place], [place] | | | | | | [address] | | | | + + + + + + + + | Specimen | + + | | + + + + + + + | Performing | Address | City/State/Zipcode | Phone Number | | Organization | | | | + + + + + | [facility] | [address] | [place] [address] | [phone] | + + + + + XR Femur Left 2+Vw (10/12/2019 7:20 PM PST) + + | Specimen | + + | | + + + + + | Impressions | Performed At | + + + | 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 | [facility] | | fracture Signed by: Iain Guadarrama, Jericho Sign Date/Time: | | | 10/12/2019 8:32 PM [...] + | Jose Luis, Quintin Results In 10/12/2019 8:36 PM PST | | LEFT [...] Testing | 65 - 99 mg/dL | [facility] | | | POC | performed at [facility];[address] | | LABORATORY | | | | [address];[place] | | | | | | [address] | | | | + + + + + + + + | Specimen | + + | | + + + + + + + | Performing | Address | City/State/Zipcode | Phone Number | | Organization | | | | + + + + + | [facility] | [address] | [place] [address] | [phone] | + + + + + POC [...] | | | POC | performed at [facility];[address] | | LABORATORY | | | | [address];[place], [place] | | | | | | [address] | | | | + + + + + + + + | Specimen | + + | | + + + + + + + | Performing | Address | City/State/Zipcode | Phone Number | | Organization | | | | + + + + + | [facility] | [address] | [place] [address] | [phone] | + + + + + SARA Hall (10/12/2019 2:55 PM PST) + + | [...] Jose Luis, Rad Results In - 10/12/2019 8:39 PM PST [...] | | | POC | performed at [facility];[address] | | LABORATORY | | | | [address];[place], [place] | | | | | | [address] | | | | + + + + + + + + | Specimen | + + | | + + + + + + + | Performing | Address | City/State/Zipcode | Phone Number | | Organization | | | | + + + + + | [facility] | [address] | [place] [address] | [phone] | + + + + + Culture, [...] RESULT | Testing performed at | | [facility] | | | | [facility], [address] | | LABORATORY | | | | [place], [place] | | | | | | [id number]: Testing | | | | | | performed at [facility], [address] | | | | [address], | | | | | | [place] [address] | | | | + + + + + + + + | Specimen | + + | Tissue - Both | | anterior nares (body | | structure) | + + + + + + + | Performing | Address | City/State/Zipcode | Phone Number | | Organization | | | | + + + + + | [facility] | [address] | [place] [address] | [phone] | + + + + + POC Glucose (10/12/2019 7:46 AM PST) + + + + + + | Component | Value | Ref Range | Performed | Pathologist | | | | | At | Signature | + + + + + + | Glucose, | 143 (H)Comment: Testing | 65 - 99 mg/dL | [facility] | | | POC | performed at [facility];[address] | | LABORATORY | | | | [address];[place] | | | | | | [address] | | | | + + + + + + + + | Specimen | + + | | + + + + + + + | Performing | Address | City/State/Zipcode | Phone Number | | Organization | | | | + + + + + | [facility] | [address] | [place] [address] | [phone] | + + + + + Basic [...] | | | | | performed at [facility], [address] | | | | | | [facility], | | | | | | [place] [address] | | | | + + + + + + + + | Specimen | + + | Blood | + + + + + + + | Performing | Address | City/State/Zipcode | Phone Number | | Organization | | | | + + + + + | [facility] | [address] | [place] [address] | [phone] | + + + + + Protime INR (10/12/2019 4:12 AM PST) + + + + + + | Component | Value | Ref Range | Performed | Pathologist | | | | | At | Signature | + + + + + + | INR | 1.1Comment: REFERENCE | | [facility] | | | | RANGE:0.9 - 1.2 [...] | | | | | performed at [facility];[address] | | | | | | [address];[place], [place] | | | | | | [address] | | | | + + + + + + + + | Specimen | + + | Blood | + + + + + + + | Performing | Address | City/State/Zipcode | Phone Number | | Organization | | | | + + + + + | [facility] | [address] | [place] [address] | [phone] | + + + + + CBC [...] at | | | | | | [facility], [address] | | | | | | [place] | | | | | | [address] | | | | + + + + + + + + | Specimen | + + | Blood | + + + + + + + | Performing | Address | City/State/Zipcode | Phone Number | | Organization | | | | + + + + + | [facility] | [address] | [place] [address] | [phone] | + + + + + POC Glucose (10/11/2019 8:46 PM PST) + + + + + + | Component | Value | Ref Range | Performed | Pathologist | | | | | At | Signature | + + + + + + | Glucose, | 171 (H)Comment: Testing | 65 - 99 mg/dL | [facility] | | | POC | performed at [facility];[address] | | LABORATORY | | | | [address];[place], [place] | | | | | | [address] | | | | + + + + + + + + | Specimen | + + | | + + + + + + + | Performing | Address | City/State/Zipcode | Phone Number | | Organization | | | | + + + + + | [facility] | [address] | [place] [address] | [phone] | + + + + + POC [...] | | | POC | performed at [facility];[address] | | LABORATORY | | | | [address];[place], [place] | | | | | | [address] | | | | + + + + + + + + | Specimen | + + | | + + + + + + + | Performing | Address | City/State/Zipcode | Phone Number | | Organization | | | | + + + + + | [facility] | [address] | [place] [address] | [phone] | + + + + + POC Glucose (10/11/2019 11:57 AM PST) + + + + + + | Component | Value | Ref Range | Performed | Pathologist | | | | | At | Signature | + + + + + + | Glucose, | 129 (H)Comment: Testing | 65 - 99 mg/dL | [facility] | | | POC | performed at [facility];[address] | | LABORATORY | | | | [address];[place], [place] | | | | | | [address] | | | | + + + + + + + + | Specimen | + + | | + + + + + + + | Performing | Address | City/State/Zipcode | Phone Number | | Organization | | | | + + + + + | [facility] | [address] | [place] [address] | [phone] | + + + + + POC Glucose (10/11/2019 8:13 AM PST) + + + + + + | Component | Value | Ref Range | Performed | Pathologist | | | | | At | Signature | + + + + + + | Glucose, | 128 (H)Comment: Testing | 65 - 99 mg/dL | [facility] | | | POC | performed at [facility];[address] | | LABORATORY | | | | [address];[place] | | | | | | [address] | | | | + + + + + + + + | Specimen | + + | | + + + + + + + | Performing | Address | City/State/Zipcode | Phone Number | | Organization | | | | + + + + + | [facility] | [address] | [place] [address] | [phone] | + + + + + Basic [...] | | | | | performed at [facility];[address] | | | | | | [address] [place];[place], [place] | | | | | | [address] | | | | + + + + + + + + | Specimen | + + | Blood | + + + + + + + | Performing | Address | City/State/Zipcode | Phone Number | | Organization | | | | + + + + + | [facility] | [address] [facility] | [place] [address] | [phone] | + + + + + Protime [...] | | | | | performed at [facility] | | | | | | [address] [facility];[place], [place] | | | | | | [address] | | | | + + + + + + + + | Specimen | + + | Blood | + + + + + + + | Performing | Address | City/State/Zipcode | Phone Number | | Organization | | | | + + + + + | [facility] | [address] | [place] [address] | [phone] | + + + + + CBC [...] | | | Absolute | performed at [facility], [address] | K[address] | LABORATORY | | | | [place], | | | | | | [place] [address] | | | | + + + + + + + + | Specimen | + + | Blood | + + + + + + + | Performing | Address | City/State/Zipcode | Phone Number | | Organization | | | | + + + + + | [facility] | [address] | [place] [address] | [phone] | + + + + + PTT (10/11/2019 5:23 AM PST) + + + + + + | Component | Value | Ref Range | Performed | Pathologist | | | | | At | Signature | + + + + + + | PTT | 38 (H)Comment: Testing | 23 - 32 seconds | [facility] | | | | performed at [facility];[address] | | LABORATORY | | | | [address];[place], [place] | | | | | | [address] | | | | + + + + + + + + | Specimen | + + | Blood | + + + + + + + | Performing | Address | City/State/Zipcode | Phone Number | | Organization | | | | + + + + + | [facility] | [address] [facility] | [place] [address] | [phone] | + + + + + ECG [...] | | | POC | performed at [facility];[address] | | LABORATORY | | | | [address];[place] | | | | | | [address] | | | | + + + + + + + + | Specimen | + + | | + + + + + + + | Performing | Address | City/State/Zipcode | Phone Number | | Organization | | | | + + + + + | [facility] | [address] | [place] [address] | [phone] | + + + + + Basic [...] 37 (L)Comment: GFR <60: | >60 | [facility] | | | GFR | CHRONIC KIDNEY [...] | | | | | | MDRD IDMI traceable | | | | | | equation.Testing | | | | | | performed at [facility];[address] | | | | | | [facility];[place], [place] | | | | | | [address] | | | | + + + + + + + + | Specimen | + + | Blood | + + + + + + + | Performing | Address | City/State/Zipcode | Phone Number | | Organization | | | | + + + + + | [facility] | [address] | [place] [address] | [phone] | + + + + + POC [...] | | | POC | performed at [facility];[address] | | LABORATORY | | | | [address] [place] | | | | | | [address] | | | | + + + + + + + + | Specimen | + + | | + + + + + + + | Performing | Address | City/State/Zipcode | Phone Number | | Organization | | | | + + + + + | [facility] | [address] | [place] [address] | [phone] | + + + + + Basic [...] | 9.4 | 8.5 - 10.5 | [facility] | | | | | mg/dL | LABORATORY | | + + + + + + | Estimated | 37 (L)Comment: GFR <60: | >60 | [facility] | | | GFR | CHRONIC KIDNEY [...] | | | | | performed at [facility];[address] | | | | | | [facility];[place], [place] | | | | | | [address] | | | | + + + + + + + + | Specimen | + + | Blood | + + + + + + + | Performing | Address | City/State/Zipcode | Phone Number | | Organization | | | | + + + + + | [facility] | [address] | [place] [address] | [phone] | + + + + + POC [...] | | | POC | performed at [facility];[address] | | LABORATORY | | | | [address];[place] | | | | | | [address] | | | | + + + + + + + + | Specimen | + + | | + + + + + + + | Performing | Address | City/State/Zipcode | Phone Number | | Organization | | | | + + + + + | [facility] | [address] | [place] [address] | [phone] | + + + + + POC [...] | | | POC | performed at [facility];[address] | | LABORATORY | | | | [address];[place], [place] | | | | | | [address] | | | | + + + + + + + + | Specimen | + + | | + + + + + + + | Performing | Address | City/State/Zipcode | Phone Number | | Organization | | | | + + + + + | [facility] | [address] | [place] [address] | [phone] | + + + + + Basic [...] 37 (L)Comment: GFR <60: | >60 | [facility] | | | GFR | CHRONIC KIDNEY [...] | | | | | | MDRD IDMI traceable | | | | | | equation.Testing | | | | | | performed at [facility] | | | | | | [facility];[place], [place] | | | | | | [address] | | | | + + + + + + + + | Specimen | + + | Blood | + + + + + + + | Performing | Address | City/State/Zipcode | Phone Number | | Organization | | | | + + + + + | [facility] | [address] | [place] [address] | [phone] | + + + + + POC Glucose (10/10/2019 11:54 AM PST) + + + + + + | Component | Value | Ref Range | Performed | Pathologist | | | | | At | Signature | + + + + + + | Glucose, | 213 (H)Comment: Testing | 65 - 99 mg/dL | [facility] | | | POC | performed at [facility];[address] | | LABORATORY | | | | [address];[place] | | | | | | [address] | | | | + + + + + + + + | Specimen | + + | | + + + + + + + | Performing | Address | City/State/Zipcode | Phone Number | | Organization | | | | + + + + + | [facility] | [address] | [place] [address] | [phone] | + + + + + Basic [...] | | | | | performed at [facility] | | | | | | [facility];[place], [place] | | | | | | [address] | | | | + + + + + + + + | Specimen | + + | Blood | + + + + + + + | Performing | Address | City/State/Zipcode | Phone Number | | Organization | | | | + + + + + | [facility] | [address] | [place] [address] | [phone] | + + + + + XR [...] Testing | 65 - 99 mg/dL | [facility] | | | POC | performed at [facility];[address] | | LABORATORY | | | | [address];[place], [place] | | | | | | [address] | | | | + + + + + + + + | Specimen | + + | | + + + + + + + | Performing | Address | City/State/Zipcode | Phone Number | | Organization | | | | + + + + + | [facility] | [address] | [place] [address] | [phone] | + + + + + Basic [...] | | | | | performed at [facility];[address] | | | | | | [address];[place], [place] | | | | | | [address] | | | | + + + + + + + + | Specimen | + + | Blood | + + + + + + + | Performing | Address | City/State/Zipcode | Phone Number | | Organization | | | | + + + + + | [facility] | [address] [facility] | [place] [address] | [phone] | + + + + + ECG [...] Testing | 1.7 - 2.4 mg/dL | [facility] | | | | performed at [facility];[address] | | LABORATORY | | | | [address];[place] | | | | | | [address] | | | | + + + + + + + + | Specimen | + + | | + + + + + + + | Performing | Address | City/State/Zipcode | Phone Number | | Organization | | | | + + + + + | [facility] | [address] | [place] [address] | [phone] | + + + + + Comprehensive [...] mmol/L | LABORATORY | | | | [address] | | | [...] | | | | | performed at [facility];[address] | | | | | | [facility];[place], [place] | | | | | | [address] | | | | + + + + + + + + | Specimen | + + | | + + + + + + + | Performing | Address | City/State/Zipcode | Phone Number | | Organization | | | | + + + + + | [facility] | [address] | [place] [address] | [phone] | + + + + + CBC with Differential (10/10/2019 4:04 AM PST) + + + + + + | Component | Value | Ref Range | Performed | Pathologist | | | | | At | Signature | + + + + + + | WBC | 17.36 (H) | 3.80 - 11.00 | [facility] | | | | | K/uL | [...] | | | Absolute | performed at [facility];[address] | K/[address] | LABORATORY | | | | [address];[place], [place] | | | | | | [address] | | | | + + + + + + + + | Specimen | + + | | + + + + + + + | Performing | Address | City/State/Zipcode | Phone Number | | Organization | | | | + + + + + | [facility] | [address] | [place] [address] | [phone] | + + + + + Type [...] + + + | BB B[facility] | [facility] | | [facility] | | | | | | LABORATORY | | + + + + + + | BB BAND | Testing performed at | | [facility] | | | | [facility] | | LABORATORY | | | | [address];[place] [address] | | | | + + + + + + + + | Specimen | + + | Blood | + + + + + + + | Performing | Address | City/State/Zipcode | Phone Number | | Organization | | | | + + + + + | [facility] | [address] | [place] [address] | [phone] | + + + + + PTT (10/10/2019 4:04 AM PST) + + + + + + | Component | Value | Ref Range | Performed | Pathologist | | | | | At | Signature | + + + + + + | PTT | 42 (H)Comment: Testing | 23 - 32 seconds | [facility] | | | | performed at [facility];[address] | | LABORATORY | | | | [address];[place] | | | | | | [address] | | | | + + + + + + + + | Specimen | + + | Blood | + + + + + + + | Performing | Address | City/State/Zipcode | Phone Number | | Organization | | | | + + + + + | [facility] | [address] | [place] [address] | [phone] | + + + + + Protime INR (10/10/2019 4:04 AM PST) + + + + + + | Component | Value | Ref Range | Performed | Pathologist | | | | | At | Signature | + + + + + + | INR | 1.3Comment: REFERENCE | | [facility] | | | | RANGE:0.9 - 1.2 [...] | | | | | performed at [facility];[address] | | | | | | [address];[place], [place] | | | | | | [address] | | | | + + + + + + + + | Specimen | + + | Blood | + + + + + + + | Performing | Address | City/State/Zipcode | Phone Number | | Organization | | | | + + + + + | [facility] | [address] | [place] [address] | [phone] | + + + + + Lipid [...] | 44Comment: Testing | <100 mg/dL | [facility] | | | Calculated | performed at [facility], [address] | | LABORATORY | | | | [address], | | | | | | [place] [address] | | | | + + + + + + + + | Specimen | + + | Blood | + + + + + + + | Performing | Address | City/State/Zipcode | Phone Number | | Organization | | | | + + + + + | [facility] | [address] | [place] [address] | [phone] | + + + + + Hemoglobin A1C (10/10/2019 4:04 AM PST) + + + + + + | Component | Value | Ref Range | Performed | Pathologist | | | | | At | Signature | + + + + + + | Hemoglobin | 9.0 (H)Comment: HbA1c | 4.0 - 6.0 % | [facility] | | | A1c | method is [...] | 212 (H)Comment: | <154 mg/dL | [facility] | | | Average | Estimated Average | | LABORATORY | | | Glucose | Glucose calculated from | | | | | | hemoglobin A1c by use of | | | | | | the ADArecommended | | | | | | formula.Testing | | | | | | performed at [facility], [address] | | | | | | [facility], | | | | | | [place] [address] | | | | + + + + + + + + | Specimen | + + | Blood | + + + + + + + | Performing | Address | City/State/Zipcode | Phone Number | | Organization | | | | + + + + + | [facility] | [address] | [place] [address] | [phone] | + + + + + CT [...] + | Diagnosis | + + | Hip fracture (HCC) - Primary Closed fracture of unspecified part of neck of femur | + + | Closed fracture of left hip, initial encounter (HCC) | + + | IDDM (insulin dependent diabetes mellitus) Type II or unspecified type diabetes | | mellitus without mention of complication, not stated as uncontrolled | + + | HTN (hypertension) Unspecified essential hypertension | + + | CKD (chronic kidney disease) Chronic kidney disease, unspecified | + + | HIV (human immunodeficiency virus infection) (HCC) Asymptomatic human | | immunodeficiency virus (HIV) infection status | + + | Morbid obesity (HCC) Morbid obesity | + + | Atrial fibrillation (HCC) Atrial fibrillation | + + | Chronic anticoagulation Encounter for long-term (current) use of anticoagulants | + + documented in this encounter [...] | 1 tablet | | | | ssqllrkf-rggedesqbrzn-jrgeXNHntk | | 20 8:49 | | | [...] | | +---+---+ + +-------+ +------+---+---+ | albuterol 2.5 mg/3 mL nebulizer | Given | 10/10/19 | 5 mg | | | | solution 5 mg 5 mg, | | 20 5:57 | | | | | Nebulization, RT Once, Tue | | AM PST | | | | | 10/10/19 at 0515, For 1 dose, RT | | | | | | | will administer., | | | | | | + [...] | times per day), First dose on Fri | | AM PST | | | [...] +---+---+ | | | +---+---+ + +---------+ +-----+-------+---+ | calcium gluconate in saline 1 | New Bag | 10/10/19 | 1 g | 600 | | | g/50 mL IVPB 1 g 1 g, | | 20 5:35 | | mL/hr | | | Intravenous, Administer over 5 | | AM PST | | | | | Minutes, ONCE, Wed10/10/19 at | | | | | | | 0515, For 1 dose | | | | | | + +---------+ +-----+-------+---+ +---+---+ | | | +---+---+ + +---------+ +-----+-------+---+ | ceFAZolin in saline (ANCEF) | New Bag | 10/13/19 | 3 g | 200 | | | IVPB 3 g 3 g, Intravenous, | | 20 1:07 | | mL/hr | | | Administer over 30 Minutes, EVERY | | AM PST | | | | | 8 HOURS INTERVAL, First dose on | | | | | | | Lay 10/12/19 at 1700, For 2 doses, | | | | | | | Keep in refrigerator., | | | | | | | Indications: Surgical Prophylaxis | | | | | | + +---------+ +-----+-------+---+ +---------+ +-----+-------+---+ | New Bag | 10/12/19 | 3 g | 200 | | | | 20 5:13 | | mL/hr | | | | PM PST | | | | +---------+ +-----+-------+---+ + +---+ | | | + +---+ [...] | | | Low Blood Sugar, Starting Tue | | | 10/10/19 at 0234, For blood | | | glucose 50-69 mg/dl - give 12.5 g | | | For blood glucose less than 50 | | | mg/dl - give 25 g, | | + +---+ | | | + +---+ + +-------+ +------+---+---+ | dextrose 50% injection 25 g 25 | Given | 10/10/19 | 25 g | | | | g, Intravenous, ONCE, Tue | | 20 5:43 | | | | | 10/10/19 at 0515, For 1 dose | | AM PST | | | | + +-------+ +------+---+---+ + +---+ | | | + +---+ | eucerin cream Topical, PRN, | | | Dry Skin, Starting Lay 10/12/19 at | | | 1052, Apply [...] | +---+---+ + +-------+ +--------+---+ + | heparin 5,000 units/mL | Given | 10/11/19 | 5,000 | | Abdomen- | | injection 5,000 Units 5,000 | | 20 9:15 | Units | | LLQ | | Units, Subcutaneous, EVERY 12 | | PM PST | | | | | HOURS (2 times per day), First | | | | | | | dose on Wed10/10/19 at 0900 | | | | | | + +-------+ +--------+---+ + +-------+ +--------+---+ + | Given | 10/11/19 | 5,000 | | Abdomen- | | | 20 10:03 | Units | | RLQ | | | AM PST | | | | +-------+ +--------+---+ + | Given | 10/10/19 | 5,000 | | Abdomen- | | | 20 8:49 | Units | | LLQ | | | PM PST | | | | +-------+ +--------+---+ + +---+---+ | | | +---+---+ + +-------+ +--------+---+---+ | HYDROmorphone (DILAUDID) | Given | 10/12/19 | 0.5 mg | | | | injection 0.25-1 mg 0.25-1 mg, | | 20 10:19 | | | | | Intravenous, EVERY 2 HOURS PRN, | | AM PST | | | | | Pain, Starting 10/10/19 at | | | | | | [...] | Arm-Righ | | SOLOSTAR) injection (pen) 10 | | 20 8:43 | | | [...] | | | | AC, NPO, Daytime 5821-3394 Use | | | | | | | NIGHT DOSE for doses scheduled: | | | | | | | HS, 3AM, Nighttime 9062-0386 | | | | | | | [...] | +---+---+ + +-------+ + +---+---+ | insulin regular (humuLIN R, | Given | 10/10/19 | 10 Units | | | | novoLIN R) injection 10 Units 10 | | 20 5:48 | | | | | Units, Intravenous, ONCE, Wed | | AM PST | | | | | 10/10/19 at 0515, For 1 dose, Only | | | | | | | for use with U-100 insulin | | | | | | | syringe., | | | | | | [...] 12:37 | | | | | Starting Wed10/10/19 at 0234 | | AM PST | [...] | | | | area., Apply to: Groin-Right | | | | | | + [...] + +---+---+ | oxyCODONE-acetaminophen | Given | 10/15/19 | 1 tablet | | | | (PERCOCET) 5-325 mg per tablet 1 | | 20 2:49 | | | | | tablet 1 tablet, Oral, EVERY 6 | | PM PST | | | | | HOURS PRN, Pain, Starting Tue | | | | | [...] | polyethylene glycol (MIRALAX) | Given | 10/17/19 | 17 g | | | | powder 17 g 17 g, Oral, DAILY | | 20 8:10 | | | | | PRN, Constipation, Starting Tue | | AM PST | | | | | 10/10/19 at 0234, If docusate and | | | | | | | senna ineffective or not | | | | | | | ordered., | | | | | | + +-------+ +------+---+---+ +-------+ +------+---+---+ | Given | 10/17/19 | 17 g | | | | | 20 12:37 | | | | | | AM PST | | | | +-------+ +------+---+---+ | Given | 10/16/19 | 17 g | | | | | 20 4:58 | | | | | | PM [...] | | | | | modification) on 10/17/19 at | | | | | | | 1430, If docusate and senna | | | | | | | ineffective or not ordered., | | | | | | + +-------+ +------+---+---+ +---+---+ | | | +---+---+ + +-------+ +---------+---+---+ | senna (SENOKOT) tablet 17.2 mg | Given | 10/16/19 | 17.2 mg | | | | 17.2 mg, Oral, 2 TIMES DAILY | | 20 4:58 | | | | | PRN, Constipation, Starting Fri | | PM PST | | | | | 10/13/19 at 1611 | | | | | | + +-------+ +---------+---+---+ +-------+ +---------+---+---+ | Given | 10/14/19 | 17.2 mg | | | | | 20 11:52 | | | | | | AM PST | | | | +-------+ +---------+---+---+ | Given | 10/13/19 | 17.2 mg | | | | | 20 10:04 | | | | | | PM [...] +---+---+ | | | +---+---+ + +-------+ +--------+-------+---+ | sodium bicarbonate 1 mEq/mL | Given | 10/10/19 | 50 mEq | 3000 | | | injection 50 mEq 50 mEq, | | 20 5:52 | | mL/hr | | | Intravenous, Administer over 1 | | AM PST | | | | | Minutes, ONCE, 10/10/19 at | | | | | | | 0515, For 1 dose | | | | | | + +-------+ +--------+-------+---+ +---+---+ | | | +---+---+ + + + +---+-------+---+ | sodium chloride 0.9% (NS) | Rate/Dos | 10/13/19 | | 125 | | | infusion at 125 mL/hr, | e Change | 20 12:15 | | mL/hr | | | Intravenous, CONTINUOUS, Starting | | PM PST | | | | | 10/10/19 at 0600 | | | | | | + + + +---+-------+---+ +---------+ +---+ +---+ | New Bag | 10/13/19 | | 50 mL/hr | | | | 20 1:07 | | | | | | AM PST | | | | +---------+ +---+ +---+ | New Bag | 10/12/19 | | 50 mL/hr | | | | 20 5:06 | | | | | | PM PST | | | | +---------+ +---+ +---+ +---+---+ | | | +---+---+ + [...] | | +---+---+ + +-------+ +------+---+---+ | sodium polystyrene (KAYEXALATE) | Given | 10/10/19 | 30 g | | | | 15 g/60 mL suspension 30 g 30 | | 20 5:51 | | | | | g, Oral, ONCE, 10/10/19 at | | AM PST | | | | | 0515, For 1 dose, Shake well. Do | | | | | | | not mix in orange juice. For | | | | | | | oral/enteral routes: separate | | | | | | | administration from other oral | | | | | | | medications by at least 3 hours., | | | | | | | | | | | | | + +-------+ +------+---+---+ +---+---+ | | | +---+---+ documented in this encounter
--- OUTSIDE RECORDS SUMMARY | ~2020-03-20 | XMS | Encounter Summary ---
Demographics + + + | Address | [address] [place] [address] | | | [place] [address] | + + + | Home Phone [...] | | | | | [place] [address] | | + + + + + Care Team Providers + +------+ + | Care Customer Retention Specialist Name | Role | Phone | [...] POINT | | | GLUCOSE, | ID: [id number]: | | OF CARE | | | POC | [id number] Geraldo Wells | | TESTING | | | |Executive Director Global Brand Marketing: [phone] Geraldo Wells | | | | | [...] POINT | | | GLUCOSE, | ID: [id number]: | | OF CARE | | | POC | [id number] Erik Salazar | | TESTING | | | |Executive Director Global Brand Marketing: [id number] Erik Salazar | | | | | [...] POINT | | | GLUCOSE, | ID: [id number]: | | OF CARE | | | POC | [id number] Erik Salazar | | TESTING | | | |Executive Director Global Brand Marketing: [id number] Erik Salazar | | | | | [...] [place] POINT | | | GLUCOSE, | [id number]: | | OF CARE | | | POC | [id number] Erik Salazar | | TESTING | | | |Executive Director Global Brand Marketing: [id number] Erik Salazar | | | | | [...]
--- OUTSIDE RECORDS SUMMARY | ~2020-03-20 | XMS | Encounter Summary ---
Demographics + + + | Address | [address] | | | [place] [address] | + + + | Home Phone | | + + + | Preferred Language | Unknown | + + + | Marital Status | | + + + | Quaker Affiliation | 1038 | + + + | Race | Unknown | + + + | Ethnic Group | Unknown | + + + Author + + + | Author | [facility] | | | and [place] | + + + | Organization | [facility] | | | [...] [place] | | | | | [address] | | + + + + + Care Team Providers + +------+ + | Care Salesperson Art Objects Name | Role | Phone | + [...] [facility] | [address] | | | | | [place], [place] | [place], [place] | | | | | [address] | [address] | | | | | [phone] | [phone] | | | | | | | [...]
--- OUTSIDE RECORDS SUMMARY | ~2020-03-20 | XMS | Encounter Summary ---
Demographics + + + | Address | [address] | | | [place] [address] | + + + | Home Phone | | + + + | Preferred Language | Unknown | + + + | Marital Status | | + + + | Zoroastrianism Affiliation | 1038 | + + + | Race | Unknown | + + + | Ethnic Group | Unknown | + + + Author + + + | Author | [facility] [...] [place] | | | | | [address] | | + + + + + Care Team Providers + +------+ + | Care Food And Beverage Assistant Name | Role | Phone | [...] | | | [address] | [place] [address] | | | | | [place] [address] | | | | | | [phone] | | | +--------+ + + + [...] +--------+ + + + | XR CHEST 1 VIEW | Routin | 06/19/2018 | | Results for this | | | e | 2:40 PM | | procedure are in the | | | | PDT | | results section. | + +--------+ + + + documented in this encounter Results XR Chest 1 Vw (06/19/2018 2:40 PM [...]
--- OUTSIDE RECORDS SUMMARY | ~2020-03-20 | XMS | Encounter Summary ---
Demographics + + + | Address | [address] [place] [address] | | | [place] [address] | + + + | Home Phone [...] + + + | Author | [facility] | + + + | Organization | [facility] | + + + | Address | Unknown | + + + | Phone | Unavailable | + + + Support + + + + + | Name | Relationship | Address | Phone | + + + + + | Aileen Nelson | ECON | [address] | | | | | [place] [address] | | + + + + + Care Team Providers + +------+ + | Care Top Case Assembler Name | Role | Phone | [...] | 2009 | Referral | Services at [facility] | [facility] | | | | Order | [address] | [id number] | | | | | [address] | [address] | | | | | [facility], 10th Floor | [place] [address] | | | | | [place], [place] | [phone] | | | | | [address] | | | | | | [phone] | | | +--------+ + + + [...]
--- OUTSIDE RECORDS SUMMARY | ~2020-03-20 | XMS | Encounter Summary ---
Demographics + + + | Address | [address] | | | [place] [address] | + + + | Home Phone | | + + + | Preferred Language | Unknown | + + + | Marital Status | | + + + | Mandaeism Affiliation | 1038 | + + + | Race | Unknown | + + + | Ethnic Group | Unknown | + + + Author + + + | Author | [facility] | | | and [place] | + + + | Organization | [facility] | | | and [place] | + + + | Address | Unknown | + + + | Phone | Unavailable | + + + Support + + + + + | Name | Relationship | Address | Phone | + + + + + | Aileen Nelson | ECON | [address] | | | | | [place] | | | | | [address] | | + + + + + Care Team Providers + +------+ + | Care Produce Runner Name | Role | Phone | + [...] | | | 2017 | | [address] [facility] | [address] | | | | | [place], [place] | [place], [place] | | | | | [address] | [address] | | | | | [phone] | [phone] | | | | | | | [...]
--- OUTSIDE RECORDS SUMMARY | ~2020-03-20 | XMS | Encounter Summary ---
Demographics + + + | Address | [address] | | | [place] [address] | + + + | Home Phone [...] [place] | | | | | [address] | | + + + + + Care Team Providers + +------+ + | Care Market Editor Name | Role | Phone | + +------+ + | Jericho Cao MD | PCP | | + +------+ + Encounter Details +--------+ + + + + | Date | Type | Department | Care Team | Description | +--------+ + + + + | 01/23/ | Orders Only | [facility] | [facility] | | | 2019 | | CONVERSION [address] | MD [address] | | | | | [address] | [address] | | | | | [place], [place] | [place] [address] | | | | | [address] | [phone] | | | | | [phone] | | | +--------+ + + + [...] and color flow Doppler was perfomed at [facility]. | | | Study: This was [...] TR Vmax: 2.40 m/s | | | Liquefaction And Regasification Helper: Authenticated by: MARISOL DUBOSE MD Report Date/Time: | | | -- [id number] | | + + + + + | Procedure Note | + + | Jose Luis, Rad Conversion - 05/11/2019 1:36 PM PDT Patient Name: Karyn Nelson of | | : 1950 Performing Physician: MARISOL DUBOSE, | | MD INDICATIONS C | | HF CONCLUSIONS 1. [...] flow Doppler was perfomed | | at [facility].Study: This was a technically difficult study [...] (A-L): 56.04 ml/m2LAAs A2C: | | 38.73 dw3BTCIS A-L A2C: 174.50 mlLAESV MOD A2C: 167.16 mlLALs A2C: 7.29 cmLAAs | | A4C: 30.93 se2PEFJQ A-L A4C: 123.07 mlLAESV MOD A4C: 117.61 mlLALs A4C: 6.59 | | cmRAAs: 29.75 [id number] A-L: 106.29 mlRAESV MOD: 104.36 mlRALs: 7.07 cmTAPSE: | | 1.63 cmAV Env.Ti: 293.94 msAV maxP.81 mmHgAV meanP.90 mmHgAV Vmax: 0.97 | | m/Merrick Vmean: 0.64 m/Merrick VTI: 18.82 cmAVA Vmax: 3.41 cm2AVA (VTI): 3.65 iz6IVEF | | Vmax: 0.00 cm2/m2AVAI (VTI): 0.00 cm2/m2LVOT Env.Ti: 310.90 msLVOT maxP.86 | | mmHgLVOT meanP.99 mmHgLVSI Dopp: 24.99 ml/m2LVSV Dopp: 68.73 mlLVOT Vmax: | | 0.68 m/sLVOT Vmean: 0.45 m/sLVOT VTI: 14.06 cmMV E Rodney: 1.16 m/sRAP: 10 mmHgRV | | S': 0.07 m/sRVSP: 33.16 mmHgTR maxP.16 mmHgTR Vmax: 2.40 m/s | | Liquefaction And Regasification Helper:Authenticated by: Wilbur GROSS Date/Time: -- [id number] | | IMPRESSION: 1. Overall left ventricular [...] |TR Vmax: 2.40 m/s | | | |Liquefaction And Regasification Helper: | |Authenticated by: MARISOL DUBOSE MD | |Report Date/Time: -- [id number] | | | |IMPRESSION: | |1. Overall [...]
--- OUTSIDE RECORDS SUMMARY | ~2020-03-20 | XMS | Encounter Summary ---
Demographics + + + | Address | [address] [place] [address] | | | [place] [address] | + + + | Home Phone [...] | | | | | [place] [address] | | + + + + + Care Team Providers + +------+ + | Care Backup Engineer Name | Role | Phone | [...] | 2009 | Referral | Services at [facility] | [facility] | | | | Order | [address] | [address] | | | | | [address] | [address] | | | | | [facility], 10th Floor | [place] [address] | | | | | [place], [place] | [phone] | | | | | [address] | | | | | | [phone] | | | +--------+ + + + [...]
--- OUTSIDE RECORDS SUMMARY | ~2020-03-20 | XMS | Encounter Summary ---
Demographics + + + | Address | [address] [place] [address] | | | [place] [address] | + + + | Home Phone [...] | | | | | [place] [address] | | + + + + + Care Team Providers + +------+ + | Care Kitchen Steward/Stewardess Name | Role | Phone | + [...] (Primary Dx); | | | | [place], [place] | [place] [address] | Hydrocele, | | | | [address] | [phone] | unspecified | | | | [phone] | | hydrocele type | +--------+---------+ + [...] up with your ID physician at the [facility] in 4 weeks Try and elevated you scrotum as often/much as possible documented in this encounter Progress Notes Edmond Estes MD - 05/17/2015 9:11 AM PDTFormatting of this note might be different fr om the original. ID: Ed is a 64-year-old male. His primary care provider is Romain Harrington MD. CC: Epididymitis and hydrocele. HPI: Ed was seen at [facility] and kept as an inpatient for a few days with cellulitis. He was eventu ally able to be transitioned over from IV to p.o. medications and was discharged home. He w as intended to have close followup with his infectious disease provider at the [facility]. Mr. Nelson did not follow up at the [facility]. He states the pain is improving, the redness is improved. He denies any dysuria or blood in the urine. He has had no fevers or chills. Past Medical History Diagnosis Date Diabetes mellitus Human immunodeficiency virus (HIV) disease Coronary atherosclerosis of unspecified type of vessel, [place] or graft Acute, but ill-defined, cerebrovascular disease Unspecified essential hypertension Arrhythmia a-fib, v-fib Chronic kidney disease (CKD), stage III (moderate) Paroxysmal SVT (supraventricular tachycardia) Congestive heart failure, unspecified Atrial fibrillation Obesity RACHELLE (obstructive sleep apnea) High cholesterol Back pain ED (erectile dysfunction) Epididymitis 2009 Cellulitis Venous insufficiency (chronic) (peripheral) Past Surgical History Procedure Laterality Date Aicd implantation Meds: Current outpatient prescriptions: ABACAVIR/DOLUTEGRAVIR/LAMIVUDI (BDDWFEQO-BWGPBPQBZOIC-BKH IVUD ORAL), Take 600 mg by mouth [...] once daily. , Disp: , Rfl: omega 6-eaw-jmp-fish oil (FISH OIL) 100-160-1,000 mg oral capsule, [...] encouraged them to follow up with the [facility] as previously described. I would like him to see urology either at the [facility] or to return to our office. I have asked him to see us back i anand three or four weeks if he has not been seen at the [facility]. We can also discuss at that time aliza webb or not the urinary tract infections need any workup. 2. He will continue and finish his antibiotics. Edmond Estes M.D./winnie A Process Operator was offered to the patient. The offer [...]
--- OUTSIDE RECORDS SUMMARY | ~2020-03-20 | XMS | Encounter Summary ---
Demographics + + + | Address | [address] | | | [place] [address] | + + + | Home Phone | | + + + | Preferred Language | Unknown | + + + | Marital Status | | + + + | Judaism Affiliation | 1038 | + + + | Race | Unknown | + + + | Ethnic Group | Unknown | + + + Author + + + | Author | [facility] | | | and [place] | + + + | Organization | [facility] | | | [...] [place] | | | | | [address] | | + + + + + Care Team Providers + +------+ + | Care Title Curator Name | Role | Phone | + [...] | | | 2017 | | [address] [facility] | [address] [facility] | | | | | [place], [place] | [place], [place] | | | | | [address] | [address] | | | | | [phone] | [phone] | | | | | | | [...]
--- OUTSIDE RECORDS SUMMARY | 2020-03-20 11:52 | XMS ---
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 Care History Medical/Surgical 05/01/2019 [facility] - PATIENT IS A - RECEIVES MEDICAL SERVICES FROM [facility] IN [place], [place]- PCP JERICHO ROMANO E.D. VISIT COUNT (12 MO.) 9 [facility]. TOTAL 9 NOTE: Visits indicate total known visits. 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 - Allergy status to penicillin - Unspecified atrial fibrillation - Chronic kidney disease, unspecified - exterminator termite (current) use of insulin 11/25/2019 11:33 [facility] [place] TYPE: Emergency [...] heart disease with heart failure - Other prison (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 10/09/2019 17:45 [facility] [place] TYPE: Emergency COMPLAINT: - FALL DIAGNOSES: - Heart failure, unspecified - Allergy status to penicillin - Pain in left hip - 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 - Unspecified atrial fibrillation [...] heart disease with heart failure - Other prison (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 - Personal history of nicotine dependence - Allergy status to sulfonamides status - Other nonmedicinal substance allergy status - Unspecified atrial fibrillation - Heart failure, unspecified - Type 2 diabetes mellitus without complications - Pleurodynia - exterminator termite (current) use of insulin - Striking against [...] - Other prison (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 - exterminator termite (current) use of insulin - Other nonmedicinal substance allergy status - Type 2 diabetes mellitus without complications - Hypertensive heart disease with heart failure - Allergy status to sulfonamides status - Personal history of nicotine dependence 04/30/2019 15:34 [facility] [place] TYPE: Emergency COMPLAINT: - TOE INJURY INPATIENT VISIT TRACKING (12 MO.) 10/10/2019 00:48 [facility] TYPE: Internal Medicine DIAGNOSES: - Left hip FX - Fracture of unspecified part of neck of left femur, initial e 08/11/2019 15:02 [facility] [place] TYPE: Observation COMPLAINT: - CVA DIAGNOSES: - [facility] (current) use of anticoagulants - Other prison (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 - Slurred speech - Heart failure, unspecified - Patient's other noncompliance with medication regimen - [facility] (current) use of insulin - Personal history [...] ischemic attack (TIA), and cere 04/30/2019 21:[address] [facility] [place] TYPE: Medical Surgical COMPLAINT: - DIABETIC FOOT INFECTION DIAGNOSES: - Type 2 diabetes mellitus with hyperglycemia - Allergy status to penicillin - Unspecified mood [affective] disorder - exterminator termite (current) use of insulin - Other obesity - Type 2 diabetes mellitus with diabetic chronic kidney disease - Chronic atrial fibrillation - Carrier of other specified bacterial diseases - Carrier of other specified bacterial diseases - exterminator termite (current) use of opiate analgesic - Cellulitis [...] polyneuropathy - Allergy status to penicillin - exterminator termite (current) use of opiate analgesic - Blister [...] heel and midfoot limited t - Other prison (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 - Hypertensive heart and chronic kidney disease with heart fail - exterminator termite (current) use of insulin - Non-pressure chronic [...] mellitus with diabetic peripheral angiopathy - 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
--- NOTE | 2020-03-20 16:40 | EKG ---
[facility] [address] [place] [address] Signed Atrial fibrillation with premature ventricular or aberrantly conducted complexes Rightward axis Abnormal QRS-T angle, consider primary T wave abnormality Abnormal ECG When compared with ECG of 09-OCT-2019 18:00, QRS axis shifted right Confirmed by BRENDA MANNING DO ([id number]) on 03/20/2020 4:40:08 PM Electronically Signed By: BRENDA MANNING DO 03/20/20 1640 PATIENT NAME: ALEN ARANDA YUMIKO Electrocardiogram DATE OF : 50 PHYSICIAN: BRENDA MANNING DO REPORT #: [id number] REPORT IS CONFIDENTIAL AND NOT TO BE RELEASED WITHOUT AUTHORIZATION
== END 2020-03-20 18:37 | disposition home or self-care (01) ==
LOC: ED 11:50
PROC: 0T9B70Z Drainage of Bladder with Drainage Device, Via Natural or Artificial Opening (ICD-10-PCS; principal; 2020-03-20)
DX: E86.0 Dehydration (principal); I13.0 Hypertensive heart and chronic kidney disease with heart failure and stage 1 through stage 4 chronic kidney disease, or unspecified chronic kidney disease; E11.22 Type 2 diabetes mellitus with diabetic chronic kidney disease; I50.9 Heart failure, unspecified; N18.9 Chronic kidney disease, unspecified; I48.91 Unspecified atrial fibrillation; Z86.73 Personal history of transient ischemic attack (TIA), and cerebral infarction without residual deficits; Z87.891 Personal history of nicotine dependence; Z88.2 Allergy status to sulfonamides; Z91.048 Other nonmedicinal substance allergy status; Z88.8 Allergy status to other drugs, medicaments and biological substances; Z79.899 Other long term (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; Z79.4 Long term (current) use of insulin; Z79.01 Long term (current) use of anticoagulants
CPT/HCPCS: 51701; 70450; 80053; 81001; 83735; 84484; 85025; 93005; 93010; 99285-25; J3475; J7030